=== PATIENT | female | born 1935 | race Asian ===

== ENCOUNTER 2016-07-07 10:25 | Observation (INO) | payer OTHER ==
[2016-07-07 10:33] VITALS: BMI 30.2
[2016-07-07 12:57] LABS: BASOPHIL 0.4 % (0-2.0); EOSINOPHIL 8.6 % (0-4.5); MCH 30.6 pg (25.7-33.7); MCHC 33.4 g/dl (32.0-36.0); MEAN CELL VOLUME 91.6 fl (80-96); MEAN PLT VOLUME 8.6 fl (7.5-11.1); NEUTROPHILS 63.6 % (42.8-82.8); PLATELET COUNT 171 K/MM3 (134-434); RDW 13.7 % (11.6-15.6); WHITE BLOOD COUNT 9.3 K/mm3 (4.0-10.0)
[2016-07-07 13:06] LABS: ALBUMIN 4.1 g/dl (3.4-5.0); ANION GAP 7 (8-16); BILIRUBIN,TOTAL 0.4 mg/dL (0.2-1.0); CALCIUM 9.9 mg/dL (8.5-10.1); CO2 29 mmol/L (21-32); CREATININE 2.3 mg/dL (0.55-1.02); GLUCOSE,RANDOM 259 mg/dL (74-106); SGOT/AST 18 U/L (15-37); SGPT/ALT 24 U/L (12-78); TOT PROT 7.2 g/dl (6.4-8.2)
[2016-07-07 13:08] LABS: ALK PHOS 103 U/L (45-117); TROPONIN I < 0.02 ng/ml (0.00-0.05)
[2016-07-07] MEDS ORDERED: morphine CARPU-JECT 2 MG/1 ML DISP.SYRIN IVPUSH ONE (13:55)
[2016-07-07] MEDS ORDERED: ASPIRIN 81 MG CHEWABLE TABLETS PO ONE (13:55)
[2016-07-07] MEDS ORDERED: ASPIRIN 81 MG CHEWABLE TABLETS ONE (14:07)
[2016-07-07] MEDS ORDERED: morphine CARPU-JECT 2 MG/1 ML DISP.SYRIN ONE (14:07)
--- NOTE | 2016-07-07 15:25 | EKG ---
Test Reason : Blood Pressure : / mmHG Vent. Rate : 056 BPM Atrial Rate : 056 BPM P-R Int : 122 ms QRS Dur : 084 ms QT Int : 398 ms P-R-T Axes : 016 045 039 degrees QTc Int : 384 ms POOR DATA QUALITY, INTERPRETATION MAY BE ADVERSELY AFFECTED SINUS BRADYCARDIA WITH SINUS ARRHYTHMIA OTHERWISE NORMAL ECG WHEN COMPARED WITH ECG OF 04-APR-2016 19:36, NONSPECIFIC T WAVE ABNORMALITY NOW EVIDENT IN LATERAL LEADS Confirmed by EVY QUIROGA MD ([id number]) on 07/07/2016 3:24:47 PM Referred By: Confirmed By:EVY QUIROGA MD
--- NOTE | 2016-07-07 15:47 | PDOC ---
History of Present Illness - General Chief Complaint: Chest Pain Stated Complaint: CHEST PAIN Time Seen by Provider: 07/07/16 12:45 History Source: Patient Exam Limitations: No Limitations - History of Present Illness Initial Comments: 07/07/16 14:44 80-year-old female presents to the ED with complaints of left substernal chest pain since yesterday waiting to her left arm. Patient initially thought it would go away but when she continued today she decided come to the ER for further evaluation. Patient denies shortness of breath, palpitations, dizziness , diaphoresis, nausea, headache, abdominal pain, or back pain. Patient states history of CHF, diabetes and CAD and is followed by Dr. Kiser who did an echocardiogram last year. Patient denies any recent change in medications, recent travel, calf tenderness or lower extremity edema. Presenting Symptoms: Chest Pain Timing/Duration: reports: constant Severity/Quality: reports: moderate, pressure Location: reports: substernal Chest Pain Radiation: reports: arms (left) Activities at Onset: reports: none Prior Chest Pain/Cardiac Workup: reports: Other (echocardiogram) Associated Symptoms: Yes: Chest Pain/pressure Past History - Past Medical History Allergies/Adverse Reactions: Allergies Allergy/AdvReac Type Severity Reaction Status Date / Time No Known Allergies Allergy Verified 07/07/16 10:33 Home Medications: Ambulatory Orders Ranitidine HCl [Zantac] 150 mg PO BID #60 tablet 06/15/15 Acetaminophen [Tylenol .Regular Strength -] 650 mg PO Q6H PRN #0 tablet Aspirin Coated [Ecotrin -] 81 mg PO DAILY #30 tablet.ec 07/09/16 Atorvastatin Ca [Lipitor] 20 mg PO DAILY #0 07/09/16 Carvedilol [Coreg -] 12.5 mg PO BID #180 tablet 07/09/16 Fluticasone Prop 0.05% Nasal [Flonase -] 1 spray NS BID PRN #1 spray 07/09/16 Furosemide [Lasix -] 40 mg PO DAILY #30 tablet 07/09/16 Gabapentin [Neurontin -] 300 mg PO DAILY #0 capsule 07/09/16 Hydralazine HCl [Apresoline -] 25 mg PO BID #60 tablet 07/09/16 Insulin (Levemir) [Levemir Vial] 20 units SQ HS #0 ml 07/09/16 Insulin Sliding Scale [Novolog Vial Sliding Scale -] 1 vial SQ ACHS #0 units Insulin Sliding Scale [Novolog Vial Sliding Scale -] 1 vial SQ BIDI units 07/09 Isosorbide Mononitrate [Imdur -] 60 mg PO DAILY #30 tab.sr.24h 07/09/16 Levothyroxine [Synthroid -] 50 mcg PO DAILY #90 tablet 07/09/16 Losartan Potassium 50 mg PO DAILY #0 07/09/16 Nitroglycerin Sublingual [Nitrostat -] 0.4 mg SL Q5M PRN #30 tab 07/09/16 Polyethylene Glycol 3350 [Miralax 119 gm Btl -] 17 gm PO DAILY PRN #30 bottle CHF: Yes Diabetes: Yes GI Disorders: Yes (GERD.) HTN: Yes Hypercholesterolemia: Yes Suicide Attempt (Hx): No Thyroid Disease: Yes (HYPO.) - Surgical History Abdominal Surgery: Yes - Immunization History Immunization Up to Date: Yes - Psycho/Social/Smoking Cessation Hx Anxiety: No Suicidal Ideation: No Smoking Status: No Smoking History: Never smoked Have you smoked in the past 12 months: No Number of Cigarettes Smoked Daily: 0 Information on smoking cessation initiated: No Hx Alcohol Use: No Drug/Substance Use Hx: No Substance Use Type: None Hx Substance Use Treatment: No Patient Lives Alone: No Lives with/in: spouse/SO Review of Systems - Review of Systems Able to Perform ROS?: Yes Constitutional: No: Symptoms Reported HEENTM: No: Symptoms Reported Respiratory: No: Symptoms reported Cardiac (ROS): Yes: Chest Pain ABD/GI: No: Symptoms Reported : No: Symptoms Reported Musculoskeletal: No: Symptoms Reported Integumentary: No: Symptoms Reported Neurological: No: Symptoms reported Endocrine: No: Symptoms Reported Hematologic/Lymphatic: No: Symptoms Reported *Physical Exam - Vital Signs Last Vital Signs Temp Pulse Resp BP Pulse Ox 97.8 F 69 18 120/48 98 07/09/16 06:00 07/09/16 08:02 07/09/16 08:05 07/09/16 08:02 07/09/16 08:05 - Physical Exam General Appearance: Yes: Nourished, Appropriately Dressed. No: Apparent Distress HEENT: positive: EOMI, COLEEN. negative: Pale Conjunctivae Neck: positive: Supple Respiratory/Chest: positive: Lungs Clear, Normal Breath Sounds. negative: Chest Tender, Respiratory Distress, Accessory Muscle Use Cardiovascular: positive: Regular Rhythm, Bradycardia. negative: Murmur Gastrointestinal/Abdominal: positive: Soft. negative: Tenderness Musculoskeletal: negative: CVA Tenderness Extremity: positive: Normal Capillary Refill. negative: Pedal Edema Integumentary: positive: Normal Color, Warm, Moist Neurologic: positive: Motor Strength 5/5 (ambulatory) Heart Score/ECG Review - ECG Intrepretation Rhythm: Regular Rhythm (rate 56. normal sinus rhythm) ED Treatment Course - LABORATORY CBC & Chemistry Diagram: 07/07/16 12:30 07/09/16 05:45 - ADDITIONAL ORDERS Additional order review: 07/07/16 12:30 RBC 3.59 L MCV 91.6 MCHC 33.4 RDW 13.7 MPV 8.6 D Neutrophils % 63.6 D Lymphocytes % 18.7 D Monocytes % 8.7 Eosinophils % 8.6 H Basophils % 0.4 - Medications Given in the ED: ED Medications Discontinued Medications Generic Name Dose Route Start Last Admin Trade Name Freq PRN Reason Stop Dose Admin Aspirin 81 mg 07/07/16 13:55 07/07/16 14:18 Asa - PO 07/07/16 13:56 81 mg ONCE ONE Administration Aspirin 81 mg 07/08/16 10:00 07/09/16 09:34 Ecotrin - PO 81 mg DAILY DARY Administration Atorvastatin Calcium 20 mg 07/08/16 22:00 07/08/16 22:33 Lipitor - PO 20 mg HS DARY Administration Carvedilol 6.25 mg 07/07/16 22:00 07/08/16 10:10 Coreg - PO 6.25 mg BID DARY Administration Carvedilol 6.25 mg 07/08/16 14:00 07/08/16 15:21 Coreg - PO 07/08/16 14:01 6.25 mg ONCE ONE Administration Carvedilol 12.5 mg 07/08/16 12:39 07/09/16 09:33 Coreg - PO 12.5 mg BID DARY Administration Furosemide 40 mg 07/08/16 10:00 07/09/16 09:34 Lasix - PO 40 mg DAILY DARY Administration Gabapentin 300 mg 07/08/16 10:00 07/09/16 09:33 Neurontin - PO 300 mg DAILY DARY Administration Heparin Sodium (Porcine) 5,000 unit 07/07/16 22:00 07/09/16 09:33 Heparin - SQ 5,000 unit BID DARY Administration Hydralazine HCl 25 mg 07/07/16 22:00 07/09/16 09:34 Apresoline - PO 25 mg BID DARY Administration Insulin Aspart 1 vial 07/09/16 07:00 07/09/16 06:01 Novolog Vial Sliding Scale - SQ Not Given BIDI [facility] Protocol Insulin Detemir 20 units 07/07/16 22:00 07/08/16 22:33 Levemir Vial SQ 20 units HS DARY Administration Insulin Human Regular 4 units 07/08/16 09:54 07/08/16 10:10 Novolin R Vial *Ivpush / Er / Icu Only* IVPUSH 07/08/16 09:55 4 units NOW ONE Administration Isosorbide Mononitrate 60 mg 07/08/16 10:00 07/09/16 09:33 Imdur - PO 60 mg DAILY DARY Administration Levothyroxine Sodium 50 mcg 07/08/16 07:00 07/09/16 06:03 Synthroid - PO 50 mcg ACBK DARY Administration Losartan Potassium 50 mg 07/08/16 10:00 07/09/16 09:33 Cozaar - PO 50 mg DAILY DARY Administration Morphine Sulfate 2 mg 07/07/16 13:55 07/07/16 14:18 Morphine Injection - IVPUSH 07/07/16 13:56 2 mg ONCE ONE Administration Ranitidine HCl 150 mg 07/07/16 22:00 07/09/16 09:33 Zantac - PO 150 mg BID DARY Administration Medical Decision Making - Medical Decision Making 07/07/16 14:18 Since yesterday. Patient with history of CHF, diabetes and is followed by Dr. Kiser with her last echo 6 months ago. Patient concerning for ACS versus CHF. Cardiac workup initiated including morphine and one baby aspirin given since she took her 1 baby aspirin this morning. 07/07/16 16:20 Laboratory Tests 04/08/16 07/07/16 07/07/16 07:15 12:30 12:30 WBC 9.3 Hgb 11.0 Hct 32.9 Neutrophils % 63.6 D Sodium 136 Potassium 5.0 Chloride 100 Carbon Dioxide 29 Anion Gap 7 L BUN 41 H D Creatinine 2.3 H 2.3 H Creat Clearance w eGFR 20.40 AST 18 ALT 24 Troponin I < 0.02 chest x-ray negative. Patient states feeling better after receiving medication. Case discussed Dr. Heck and states admitted to telemetry. Dr. Kiser made aware and agrees with plan *DC/Admit/Observation/Transfer Diagnosis at time of Disposition: Chest pain Qualifiers: Chest pain type: precordial chest pain Qualified Code(s): R07.2 - Precordial pain - Discharge Dispostion Disposition: VNS/HOME HEALTH CARE Condition at time of disposition: Improved Admit: Yes - Prescriptions
[2016-07-07 19:06] LABS: TROPONIN I < 0.02 ng/ml (0.00-0.05)
--- NOTE | 2016-07-07 19:54 | HP ---
Admitting History and Physical - Primary Care Physician PCP: Jam Sunshine - Admission Chief Complaint: CP History of Present Illness: Pt. with SSCP, left side , radiating to the left shoulder and left arms; it started last night, woke up pt. from sleep; pt states that CP was associated with SOB, palpitations. P r Cp returned today and came to ER per her daughter dg. advice. History Source: Patient - Past Medical History Cardiovascular: Yes: CAD, CHF, HTN, Hyperlipdemia Gastrointestinal: Yes: GERD Renal/: Yes: Renal Inusuff (recent baseline creatinine above 2.0)) Endocrine: Yes: Diabetes Mellitus (Insulin dependent), Hypothyroidism - Past Surgical History Past Surgical History: Yes: Hysterectomy (BRAXTON, BSO in 1981), Oopherectomy - Smoking History Smoking history: Never smoked Have you smoked in the past 12 months: No Aproximately how many cigarettes per day: 0 - Alcohol/Substance Use Hx Alcohol Use: No History of Substance Use: reports: None - Social History ADL: Independent History of Recent Travel: Yes (WENT TO [place] TWO YEARS AGO) <Jam Sunshine - Last Filed: 07/07/16 19:49> Home Medications <Jam Sunshine - Last Filed: 07/07/16 19:49> <Berlin Arroyo - Last Filed: 07/08/16 11:48> - Allergies Allergies/Adverse Reactions: Allergies Allergy/AdvReac Type Severity Reaction Status Date / Time No Known Allergies Allergy Verified 07/07/16 10:33 - Home Medications Home Medications: Ambulatory Orders Atorvastatin Ca [Lipitor] 20 mg PO DAILY 09/19/14 Aspirin Coated [Ecotrin -] 81 mg PO DAILY #30 tablet.ec 09/23/14 Levothyroxine [Synthroid -] 50 mcg PO DAILY #90 tablet 11/02/14 Polyethylene Glycol 3350 [Miralax 119 gm Btl -] 17 gm PO DAILY PRN #30 bottle Ranitidine HCl [Zantac] 150 mg PO BID #60 tablet 06/15/15 Acetaminophen [Tylenol .Regular Strength -] 650 mg PO Q6H PRN #0 tablet Fluticasone Prop 0.05% Nasal [Flonase -] 1 spray NS BID PRN #1 spray 11/25/15 Gabapentin [Neurontin -] 300 mg PO DAILY capsule 11/25/15 Insulin (Levemir) [Levemir Vial] 20 units SQ HS ml 11/25/15 Insulin Sliding Scale [Novolog Vial Sliding Scale -] 1 vial SQ ACHS units 11/24 Carvedilol [Coreg -] 6.25 mg PO BID #60 tablet 04/08/16 Furosemide [Lasix -] 40 mg PO DAILY #30 tablet 04/08/16 Hydralazine HCl [Apresoline -] 25 mg PO BID #60 tablet 04/08/16 Isosorbide Mononitrate [Imdur -] 60 mg PO DAILY #30 tab.sr.24h 04/08/16 Losartan Potassium 50 mg PO DAILY 07/07/16 Family Disease History - Family Disease History Family Disease History: Diabetes: Brother, Sister, Other: Father (dies in his 50s ? etiology) <Jam Sunshine - Last Filed: 07/07/16 19:49> Review of Systems - Review of Systems Constitutional: denies: Chills, Fever Eyes: denies: Blind Spots, Blurred Vision HENT: denies: Difficult Swallowing, Ear Discharge, Ear Pain, Throat Pain Neck: denies: Pain on Movement, Stiffness Cardiovascular: denies: Edema Respiratory: denies: Cough, Wheezing Gastrointestinal: reports: Bloating (old). denies: Nausea, Vomiting Genitourinary: denies: Burning, Discharge, Dysuria Integumentary: denies: Bruising, Eczema, Erythema Neurological: reports: Other (Vertigo- on and off). denies: Change in LOC, Change in Speech, Confusion, Dizziness Endocrine: denies: Excessive Sweating, Intolerance to Cold Hematology/Lymphatic: denies: Easily Bruised, Excessive Bleeding Psychiatric: denies: Altered Sleep Pattern, Anxiety, Depression <Jam Sunshine - Last Filed: 07/07/16 19:49> Physical Examination Vital Signs: Vital Signs Temperature 98 F 07/07/16 10:26 Pulse Rate 60 07/07/16 16:31 Respiratory Rate 18 07/07/16 16:31 Blood Pressure 151/67 07/07/16 16:31 O2 Sat by Pulse Oximetry (%) 98 07/07/16 16:31 Constitutional: Yes: No Distress, Calm Eyes: Yes: Conjunctiva Clear, EOM Intact, PERRL HENT: Yes: Normocephalic, Epistaxis. No: Pharyngeal Erythema, Rhinnorhea, Thrush Neck: Yes: Trachea Midline. No: Lymphadenopathy Cardiovascular: Yes: Regular Rate and Rhythm, S1, S2 Respiratory: Yes: Regular, CTA Bilaterally. No: Rales Gastrointestinal: Yes: Normal Bowel Sounds, Soft, Abdomen, Obese. No: Palpable Mass Musculoskeletal: Yes: Back Pain, Joint Stiffness, Joint Swelling Extremities: No: Cool, Erythema Edema: No Integumentary: No: Erythema, Petechiae, Rash Neurological: Yes: Alert, Oriented, Cran Nerves II-XII Intact. No: Confusion, Dysarthria, Facial Droop Psychiatric: Yes: Alert, Oriented Labs: reviewed <Jam Sunshine - Last Filed: 07/07/16 19:49> Vital Signs: Vital Signs Temperature 97.9 F 07/08/16 09:45 Pulse Rate 59 L 07/08/16 09:45 Respiratory Rate 17 07/08/16 09:45 Blood Pressure 139/56 07/08/16 09:45 O2 Sat by Pulse Oximetry (%) 98 07/08/16 09:45 Labs: CBC, BMP 07/08/16 06:20 <Berlin Arroyo - Last Filed: 07/08/16 11:48> Imaging - Results Chest X-ray: Report Reviewed <Jam Sunshine - Last Filed: 07/07/16 19:49> Problem List - Problems (1) Chest pain Assessment/Plan: Pt under observation status To monitor on Telemetry Cardio Consult Serial CE Code(s): R07.9 - CHEST PAIN, UNSPECIFIED Qualifiers: Chest pain type: unspecified Qualified Code(s): R07.9 - Chest pain, unspecified (2) CAD (coronary artery disease) Code(s): I25.10 - ATHSCL HEART DISEASE OF [place] CORONARY ARTERY W/O ANG PCTRS Qualifiers: Coronary Disease-Associated Artery/Lesion type: [place] artery [place] vs. transplanted heart: [place] heart Associated angina: with stable angina Qualified Code(s): I25.119 - Atherosclerotic heart disease of [place] coronary artery with unspecified angina pectoris (3) CHF (congestive heart failure) Code(s): I50.9 - HEART FAILURE, UNSPECIFIED (4) Diabetes mellitus Code(s): E11.9 - TYPE 2 DIABETES MELLITUS WITHOUT COMPLICATIONS Qualifiers: Diabetes mellitus type: type 2 Diabetes mellitus complication status: without complication Diabetes mellitus group home insulin use: without terminal gauger supervisor use Qualified Code(s): E11.9 - Type 2 diabetes mellitus without complications (5) Chronic renal disease Code(s): N18.9 - CHRONIC KIDNEY DISEASE, UNSPECIFIED Qualifiers: Chronic kidney disease stage: unspecified stage Qualified Code(s): N18.9 - Chronic kidney disease, unspecified <Jam Sunshine - Last Filed: 07/07/16 19:49>
[2016-07-07] MEDS ORDERED: ACETAMINOPHEN 325 MG TABLET (FP) PO PRN (20:02)
[2016-07-07] MEDS ORDERED: POLYETHYLENE GLYCOL 3350 119 GM BTL PO PRN (20:02)
[2016-07-07] MEDS ORDERED: FLUTICASONE PROP 0.05% 16 GM NASAL SPRAY NS PRN (20:02)
[2016-07-07] MEDS ORDERED: NITROGLYCERIN SUBLINGUAL 1/150 0.4 MG TAB SL PRN (20:04)
[2016-07-07] MEDS ORDERED: HEPARIN NA (PORCINE) 5,000 UNITS/ML 1ML VIAL ONE (22:36)
[2016-07-07] MEDS ORDERED: RANITIDINE HCL 150 MG TABLET (FP) ONE (22:36)
[2016-07-07] MEDS ORDERED: CARVEDILOL 3.125 MG TABLET (FP) ONE (22:36)
[2016-07-07] MEDS ORDERED: hydrALAZINE HCL 25 MG TABLET (FP) ONE (22:36)
[2016-07-07] MEDS ORDERED: INSULIN DETEMIR 100 UNITS/ML MDV SQ ONE (22:38)
[2016-07-07] MEDS: hydrALAZINE HCL 25 MG TABLET (FP) PO SCH (22:53)
[2016-07-07] MEDS: INSULIN DETEMIR 100 UNITS/ML MDV SQ SCH (22:54)
[2016-07-07] MEDS: HEPARIN NA (PORCINE) 5,000 UNITS/ML 1ML VIAL SQ SCH (22:54)
[2016-07-07] MEDS: CARVEDILOL 6.25 MG TABLET (FP) PO SCH (22:54)
[2016-07-07] MEDS: RANITIDINE HCL 150 MG TABLET (FP) PO SCH (22:55)
[2016-07-08 00:16] LABS: TROPONIN I 0.02 ng/ml (0.00-0.05)
[2016-07-08 08:12] LABS: CALCIUM 10.3 mg/dL (8.5-10.1); CREATININE 2.2 mg/dL (0.55-1.02); THYROID STIMULATING HORMONE 2.11 uIU/ml (0.358-3.74)
[2016-07-08] MEDS: LEVOTHYROXINE NA 50 MCG TABLET (FP) PO SCH (09:00)
[2016-07-08] MEDS ORDERED: LEVOTHYROXINE NA 25 MCG TABLET (FP) ONE (09:05)
[2016-07-08] MEDS ORDERED: HEMOQUE TEST 1 EACH EACH ONE (09:16)
[2016-07-08] MEDS ORDERED: INSULIN REGULAR HUMAN 100 UNITS/ML *VIAL IVPUSH ONE (09:54)
[2016-07-08] MEDS ORDERED: INSULIN REGULAR HUMAN 100 UNITS/ML *VIAL ONE (09:59)
[2016-07-08] MEDS: hydrALAZINE HCL 25 MG TABLET (FP) PO SCH ×2 (10:09→22:33)
[2016-07-08] MEDS: HEPARIN NA (PORCINE) 5,000 UNITS/ML 1ML VIAL SQ SCH ×2 (10:10→22:32)
[2016-07-08] MEDS: GABAPENTIN 300 MG CAPSULE (FP) PO SCH (10:10)
[2016-07-08] MEDS: ISOSORBIDE MONONITRATE 60 MG TAB.SR.24H (FP) PO SCH (10:10)
[2016-07-08] MEDS: LOSARTAN POTASSIUM 50 MG TABLET (FP) PO SCH (10:10)
[2016-07-08] MEDS: CARVEDILOL 6.25 MG TABLET (FP) PO SCH ×2 (10:10→22:33)
[2016-07-08] MEDS: ASPIRIN COATED 81 MG TABLET.EC PO SCH (10:10)
[2016-07-08] MEDS: RANITIDINE HCL 150 MG TABLET (FP) PO SCH ×2 (10:10→22:33)
[2016-07-08] MEDS: FUROSEMIDE 40 MG TABLET (FP) PO SCH (10:10)
[2016-07-08 11:16] LABS: TROPONIN I 0.02 ng/ml (0.00-0.05)
--- NOTE | 2016-07-08 11:45 | CON.CARD ---
Consult Consult Specialty:: Cardiology Referred by:: Jam Sunshine MD Reason for Consultation:: Chest pain - History of Present Illness Chief Complaint: Chest pain History of Present Illness: Patient is a 80 year old female with history of HTN, hypercholesterolemia, type 2 DM, osteoarthritis, hypothyroidism, CKD and LV diastolic dysfunction h/o failure presented with chest pressure radiating to left shoulder and arm and dyspnea awoke from sleep. She denies palpitations, near or true syncope, orthopnea, PNE or LE edema. - History Source History Provided By: Patient, Medical Record Limitations to Obtaining History: No Limitations - Past Medical History Cardio/Vascular: Yes: CAD, CHF, HTN, Hyperlipdemia Gastrointestinal: Yes: GERD Renal/: Yes: Renal Inusuff (recent baseline creatinine above 2.0)) Endocrine: Yes: Diabetes Mellitus (Insulin dependent), Hypothyroidism - Past Surgical History Past Surgical History: Yes: Hysterectomy (BRAXTON, BSO in 1981), Oopherectomy - Alcohol/Substance Use Hx Alcohol Use: No History of Substance Use: reports: None - Smoking History Smoking history: Never smoked Have you smoked in the past 12 months: No Aproximately how many cigarettes per day: 0 - Social History Usual Living Arrangement: With Spouse ADL: Independent History of Recent Travel: Yes (WENT TO [place] TWO YEARS AGO) Home Medications - Allergies Allergies/Adverse Reactions: Allergies Allergy/AdvReac Type Severity Reaction Status Date / Time No Known Allergies Allergy Verified 07/07/16 10:33 - Home Medications Home Medications: Ambulatory Orders Atorvastatin Ca [Lipitor] 20 mg PO DAILY 09/19/14 Aspirin Coated [Ecotrin -] 81 mg PO DAILY #30 tablet.ec 09/23/14 Levothyroxine [Synthroid -] 50 mcg PO DAILY #90 tablet 11/02/14 Polyethylene Glycol 3350 [Miralax 119 gm Btl -] 17 gm PO DAILY PRN #30 bottle Ranitidine HCl [Zantac] 150 mg PO BID #60 tablet 06/15/15 Acetaminophen [Tylenol .Regular Strength -] 650 mg PO Q6H PRN #0 tablet Fluticasone Prop 0.05% Nasal [Flonase -] 1 spray NS BID PRN #1 spray 11/25/15 Gabapentin [Neurontin -] 300 mg PO DAILY capsule 11/25/15 Insulin (Levemir) [Levemir Vial] 20 units SQ HS ml 11/25/15 Insulin Sliding Scale [Novolog Vial Sliding Scale -] 1 vial SQ ACHS units 11/24 Carvedilol [Coreg -] 6.25 mg PO BID #60 tablet 04/08/16 Furosemide [Lasix -] 40 mg PO DAILY #30 tablet 04/08/16 Hydralazine HCl [Apresoline -] 25 mg PO BID #60 tablet 04/08/16 Isosorbide Mononitrate [Imdur -] 60 mg PO DAILY #30 tab.sr.24h 04/08/16 Losartan Potassium 50 mg PO DAILY 07/07/16 Family Disease History - Family Disease History Family Disease History: Diabetes: Brother, Sister, Other: Father (dies in his 50s ? etiology) Review of Systems - Review of Systems Cardiovascular: reports: Chest Pain Vital Signs: Vital Signs Temperature 97.9 F 07/08/16 09:45 Pulse Rate 59 L 07/08/16 09:45 Respiratory Rate 17 07/08/16 09:45 Blood Pressure 139/56 07/08/16 09:45 O2 Sat by Pulse Oximetry (%) 98 07/08/16 09:45 Constitutional: Yes: No Distress, Calm Neck: Yes: Supple Respiratory: Yes: Regular, CTA Bilaterally Gastrointestinal: Yes: Normal Bowel Sounds, Soft, Abdomen, Obese Cardiovascular: Yes: Regular Rate and Rhythm JVD: No Carotid Bruit: No Heart Sounds: Yes: S1, S2 Edema: No - Other Data Labs, Other Data: CBC, BMP 07/08/16 06:20 Troponin, BNP 07/07/16 07/08/16 07/08/16 23:45 06:20 09:38 Troponin I 0.02 0.02 Cancelled Troponin, BNP 07/07/16 07/08/16 07/08/16 23:45 06:20 09:38 Troponin I 0.02 0.02 Cancelled SB @ [address]-T changes Echo: Report Reviewed Prior Cardiac Procedures: Cardiac Catheterization Ejection Fraction %: LVEF > or = 40 % Imaging - Results Chest X-ray: Report Reviewed (NAD) Problem List - Problems (1) Chest pain Code(s): R07.9 - CHEST PAIN, UNSPECIFIED Qualifiers: Chest pain type: precordial chest pain Qualified Code(s): R07.2 - Precordial pain (2) Diabetes mellitus with diabetic cardiomyopathy Code(s): E11.59 - TYPE 2 DIABETES MELLITUS WITH OTH CIRCULATORY COMPLICATIONS I43 - CARDIOMYOPATHY IN DISEASES CLASSIFIED ELSEWHERE (3) Endothelial dysfunction of coronary artery Code(s): I99.8 - OTHER DISORDER OF CIRCULATORY SYSTEM (4) CKD (chronic kidney disease) stage 3, GFR 30-59 ml/min Code(s): N18.3 - CHRONIC KIDNEY DISEASE, STAGE 3 (MODERATE) (5) Diabetes mellitus Code(s): E11.9 - TYPE 2 DIABETES MELLITUS WITHOUT COMPLICATIONS Qualifiers: Diabetes mellitus type: type 2 Diabetes mellitus complication status: without complication Diabetes mellitus computer terminal operator insulin use: without care home use Qualified Code(s): E11.9 - Type 2 diabetes mellitus without complications (6) Hyperlipidemia Code(s): E78.5 - HYPERLIPIDEMIA, UNSPECIFIED Qualifiers: Hyperlipidemia type: pure hypercholesterolemia Qualified Code(s): E78.0 - Pure hypercholesterolemia (7) Hypertension Code(s): I10 - ESSENTIAL (PRIMARY) HYPERTENSION Qualifiers: Hypertension type: essential hypertension Qualified Code(s): I10 - Essential (primary) hypertension (8) Hypothyroidism Code(s): E03.9 - HYPOTHYROIDISM, UNSPECIFIED Qualifiers: Hypothyroidism type: unspecified Qualified Code(s): E03.9 - Hypothyroidism, unspecified Assessment/Plan [facility] coronary performed 01/04/16 revealed non-obstructive CAD MPI study dated 11/12/2015 revealed No ischemia with normal LV function LVEF 79% Echocardiogram revealed normal LV size and function, mild , MR and TR 1. Chest pain syndrome with underlying non-obstructive CAD, angina pectoris, probable endothelial dysfunction 2. 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 Aortic valve stenosis - mild in severity 4. HTN 5. NIDDM 6. Hypercholesterolemia 7. Hypothyroidism 8. Chronic kidney disease 9. Anemia PLAN: 1. Ruling out for MS 2. Increase Coreg 12.5 bid, losartan 50 qd, Hydralazine 25 bid and Imdur 60 qd as hemodynamics tolerate 3. Continue Lipitor 20 qhs, ASA 81 qd and Lasix 40 PO qd 4. GI and DVT prophylaxis 5. Thank you for consultative opportunity, d/c planning in AM
[2016-07-08] MEDS ORDERED: CARVEDILOL 6.25 MG TABLET (FP) PO ONE (14:00)
[2016-07-08] MEDS ORDERED: ATORVASTATIN CA 20 MG TABLET (FP) PO SCH (22:00)
--- NOTE | 2016-07-08 22:00 | PN ---
Progress Note, Physician History of Present Illness: Pt. w/o CP, palp., dizziness, SOB; no abd pain, N, V. - Current Medication List Current Medications: Active Medications Acetaminophen (Tylenol -) 650 mg PO Q6H PRN PRN Reason: FEVER OR PAIN Aspirin (Ecotrin -) 81 mg PO DAILY [facility] Last Admin: 07/08/16 10:10 Dose: 81 mg Atorvastatin Calcium (Lipitor -) 20 mg PO HS [facility] Carvedilol (Coreg -) 12.5 mg PO BID [facility] Fluticasone Propionate (Flonase -) 1 spray NS Q12H PRN PRN Reason: NASAL CONGESTION Furosemide (Lasix -) 40 mg PO DAILY [facility] Last Admin: 07/08/16 10:10 Dose: 40 mg Gabapentin (Neurontin -) 300 mg PO DAILY [facility] Last Admin: 07/08/16 10:10 Dose: 300 mg Heparin Sodium (Porcine) (Heparin -) 5,000 unit SQ BID [facility] Last Admin: 07/08/16 10:10 Dose: Not Given Hydralazine HCl (Apresoline -) 25 mg PO BID [facility] Last Admin: 07/08/16 10:09 Dose: 25 mg Insulin Detemir (Levemir Vial) 20 units SQ HS [facility] Last Admin: 07/07/16 22:54 Dose: 20 units Isosorbide Mononitrate (Imdur -) 60 mg PO DAILY [facility] Last Admin: 07/08/16 10:10 Dose: 60 mg Levothyroxine Sodium (Synthroid -) 50 mcg PO ACBK [facility] Last Admin: 07/08/16 09:00 Dose: 50 mcg Losartan Potassium (Cozaar -) 50 mg PO DAILY [facility] Last Admin: 07/08/16 10:10 Dose: 50 mg Nitroglycerin (Nitrostat -) 0.4 mg SL Q5M PRN PRN Reason: FOR CHEST PAIN Polyethylene Glycol (Miralax (For Daily Use) -) 17 gm PO DAILY PRN PRN Reason: CONSTIPATION Ranitidine HCl (Zantac -) 150 mg PO BID [facility] Last Admin: 07/08/16 10:10 Dose: 150 mg - Objective Vital Signs: Vital Signs Temperature 97.8 F 07/08/16 18:00 Pulse Rate 55 L 07/08/16 18:00 Respiratory Rate 20 07/08/16 18:00 Blood Pressure 118/45 07/08/16 18:00 O2 Sat by Pulse Oximetry (%) 98 07/08/16 13:17 Constitutional: Yes: No Distress, Calm Cardiovascular: Yes: Regular Rate and Rhythm, S1, S2 Respiratory: Yes: Regular, CTA Bilaterally. No: Rales Gastrointestinal: Yes: Normal Bowel Sounds, Soft, Abdomen, Obese. No: Palpable Mass, Tenderness Edema: No Neurological: Yes: Alert, Oriented Labs: CBC, BMP 07/08/16 06:20 Problem List - Problems (1) Chest pain Assessment/Plan: Pt under observation status To monitor on Telemetry Cardio Consult appreciated Serial CE- negative. Code(s): R07.9 - CHEST PAIN, UNSPECIFIED Qualifiers: Chest pain type: precordial chest pain Qualified Code(s): R07.2 - Precordial pain (2) CAD (coronary artery disease) Code(s): I25.10 - ATHSCL HEART DISEASE OF [place] CORONARY ARTERY W/O ANG PCTRS Qualifiers: Coronary Disease-Associated Artery/Lesion type: [place] artery [place] vs. 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
[2016-07-08] MEDS: INSULIN DETEMIR 100 UNITS/ML MDV SQ SCH (22:33)
[2016-07-09] MEDS: LEVOTHYROXINE NA 50 MCG TABLET (FP) PO SCH (06:03)
[2016-07-09 06:41] VITALS: TEMP 97.8
[2016-07-09] MEDS ORDERED: INSULIN SLIDING SCALE (NOVOLOG) 1 VIAL SQ SCH (07:00)
[2016-07-09 08:05] VITALS: BP 120/48; PULSE 69
[2016-07-09 08:58] LABS: CALCIUM 9.9 mg/dL (8.5-10.1); CREATININE 2.3 mg/dL (0.55-1.02)
[2016-07-09] MEDS: ISOSORBIDE MONONITRATE 60 MG TAB.SR.24H (FP) PO SCH (09:33)
[2016-07-09] MEDS: LOSARTAN POTASSIUM 50 MG TABLET (FP) PO SCH (09:33)
[2016-07-09] MEDS: CARVEDILOL 6.25 MG TABLET (FP) PO SCH (09:33)
[2016-07-09] MEDS: HEPARIN NA (PORCINE) 5,000 UNITS/ML 1ML VIAL SQ SCH (09:33)
[2016-07-09] MEDS: RANITIDINE HCL 150 MG TABLET (FP) PO SCH (09:33)
[2016-07-09] MEDS: GABAPENTIN 300 MG CAPSULE (FP) PO SCH (09:33)
[2016-07-09] MEDS: FUROSEMIDE 40 MG TABLET (FP) PO SCH (09:34)
[2016-07-09] MEDS: ASPIRIN COATED 81 MG TABLET.EC PO SCH (09:34)
[2016-07-09] MEDS: hydrALAZINE HCL 25 MG TABLET (FP) PO SCH (09:34)
--- NOTE | 2016-07-09 11:18 | DS ---
Physical Examination Vital Signs: Vital Signs Temperature 97.8 F 07/09/16 06:00 Pulse Rate 69 07/09/16 08:02 Respiratory Rate 18 07/09/16 08:05 Blood Pressure 120/48 07/09/16 08:02 O2 Sat by Pulse Oximetry (%) 98 07/09/16 08:05 Findings/Remarks: feels well no c/o no CP/SOB, no abdominal pain or dysuria. walked to the bathroom and in the hallway; has occasional GERD I d/w pt bland diet and GI f/u outpt; BP controlled; BGM OK; ADA diet; cleared by cardio to DC home scripts done increased coreg; d/w pt and daughter, f/u with PCP and cardio; RTER if recurrent c/o Constitutional: Yes: No Distress, Calm Eyes: Yes: Conjunctiva Clear HENT: Yes: Atraumatic Neck: Yes: Supple Cardiovascular: Yes: Regular Rate and Rhythm Respiratory: Yes: CTA Bilaterally Gastrointestinal: Yes: Soft. No: Distention, Tenderness Renal/: No: CVA Tenderness - Left, CVA Tenderness - Right Musculoskeletal: No: Joint Stiffness, Joint Swelling Extremities: No: Cold, Cool Edema: No Peripheral Pulses WNL: Yes Integumentary: No: Pressure Ulcer, Venous Stasis Changes Neurological: Yes: WNL, Alert, Oriented ...Motor Strength: WNL Psychiatric: Yes: WNL, Alert, Oriented. No: Agitated Labs: CBC, BMP 07/09/16 05:45 Discharge Summary Reason For Visit: CHEST PAIN Current Active Problems Chest pain (Acute) Diabetes mellitus with diabetic cardiomyopathy (Acute) Dyspnea (Acute) Endothelial dysfunction of coronary artery (Acute) Procedures: Principal: CP sd; RENZO negative Other Procedures: seen by cardiology; meds adjusted Hospital Course: DC home. F/u as advised Condition: Improved - Instructions Diet, Activity, Other Instructions: f/u PCP cardiology in 1-2 weeks RTER if worse or recurrent meds as ordered d/w pt and staff, scripts done Referrals: Kell Snushine [Primary Care Provider] - Berlin Arroyo MD [Staff Physician] - Disposition: VNS/HOME HEALTH CARE - Home Medications Comprehensive Discharge Medication List: Ambulatory Orders Atorvastatin Ca [Lipitor] 20 mg PO DAILY 09/19/14 Aspirin Coated [Ecotrin -] 81 mg PO DAILY #30 tablet.ec 09/23/14 Levothyroxine [Synthroid -] 50 mcg PO DAILY #90 tablet 11/02/14 Polyethylene Glycol 3350 [Miralax 119 gm Btl -] 17 gm PO DAILY PRN #30 bottle Ranitidine HCl [Zantac] 150 mg PO BID #60 tablet 06/15/15 Acetaminophen [Tylenol .Regular Strength -] 650 mg PO Q6H PRN #0 tablet Fluticasone Prop 0.05% Nasal [Flonase -] 1 spray NS BID PRN #1 spray 11/25/15 Gabapentin [Neurontin -] 300 mg PO DAILY capsule 11/25/15 Insulin (Levemir) [Levemir Vial] 20 units SQ HS ml 11/25/15 Insulin Sliding Scale [Novolog Vial Sliding Scale -] 1 vial SQ ACHS units 11/24 Furosemide [Lasix -] 40 mg PO DAILY #30 tablet 04/08/16 Hydralazine HCl [Apresoline -] 25 mg PO BID #60 tablet 04/08/16 Isosorbide Mononitrate [Imdur -] 60 mg PO DAILY #30 tab.sr.24h 04/08/16 Losartan Potassium 50 mg PO DAILY 07/07/16 Carvedilol [Coreg -] 12.5 mg PO BID #180 tablet 07/09/16 Insulin Sliding Scale [Novolog Vial Sliding Scale -] 1 vial SQ BIDI units 07/09 Nitroglycerin Sublingual [Nitrostat -] 0.4 mg SL Q5M PRN #30 tab 07/09/16
--- NOTE | 2016-07-09 11:44 | PN ---
Progress Note, Physician Chief Complaint: Events noted Not in distress History of Present Illness: Patient was seen and examined. Awake and alert. Chart was reviewed Denies chest pain, SOB or palpitation - Current Medication List Current Medications: Active Medications Acetaminophen (Tylenol -) 650 mg PO Q6H PRN PRN Reason: FEVER OR PAIN Aspirin (Ecotrin -) 81 mg PO DAILY [facility] Last Admin: 07/09/16 09:34 Dose: 81 mg Atorvastatin Calcium (Lipitor -) 20 mg PO HS [facility] Last Admin: 07/08/16 22:33 Dose: 20 mg Carvedilol (Coreg -) 12.5 mg PO BID [facility] Last Admin: 07/09/16 09:33 Dose: 12.5 mg Fluticasone Propionate (Flonase -) 1 spray NS Q12H PRN PRN Reason: NASAL CONGESTION Furosemide (Lasix -) 40 mg PO DAILY [facility] Last Admin: 07/09/16 09:34 Dose: 40 mg Gabapentin (Neurontin -) 300 mg PO DAILY [facility] Last Admin: 07/09/16 09:33 Dose: 300 mg Heparin Sodium (Porcine) (Heparin -) 5,000 unit SQ BID [facility] Last Admin: 07/09/16 09:33 Dose: 5,000 unit Hydralazine HCl (Apresoline -) 25 mg PO BID [facility] Last Admin: 07/09/16 09:34 Dose: 25 mg Insulin Aspart (Novolog Vial Sliding Scale -) 1 vial SQ BIDI [facility] PRN Reason: Protocol Last Admin: 07/09/16 06:01 Dose: Not Given Insulin Detemir (Levemir Vial) 20 units SQ HS [facility] Last Admin: 07/08/16 22:33 Dose: 20 units Isosorbide Mononitrate (Imdur -) 60 mg PO DAILY [facility] Last Admin: 07/09/16 09:33 Dose: 60 mg Levothyroxine Sodium (Synthroid -) 50 mcg PO ACBK [facility] Last Admin: 07/09/16 06:03 Dose: 50 mcg Losartan Potassium (Cozaar -) 50 mg PO DAILY [facility] Last Admin: 07/09/16 09:33 Dose: 50 mg Nitroglycerin (Nitrostat -) 0.4 mg SL Q5M PRN PRN Reason: FOR CHEST PAIN Polyethylene Glycol (Miralax (For Daily Use) -) 17 gm PO DAILY PRN PRN Reason: CONSTIPATION Ranitidine HCl (Zantac -) 150 mg PO BID [facility] Last Admin: 07/09/16 09:33 Dose: 150 mg - Objective Vital Signs: Vital Signs Temperature 97.8 F 07/09/16 06:00 Pulse Rate 69 07/09/16 08:02 Respiratory Rate 18 07/09/16 08:05 Blood Pressure 120/48 07/09/16 08:02 O2 Sat by Pulse Oximetry (%) 98 07/09/16 08:05 Neck: Yes: Supple Cardiovascular: Yes: Regular Rate and Rhythm, S1, S2 Respiratory: Yes: CTA Bilaterally Gastrointestinal: Yes: Normal Bowel Sounds, Soft. No: Tenderness Edema: No Labs: CBC, BMP 07/09/16 05:45 Problem List - Problems (1) Chest pain Code(s): R07.9 - CHEST PAIN, UNSPECIFIED Qualifiers: Chest pain type: precordial chest pain Qualified Code(s): R07.2 - Precordial pain (2) Diabetes mellitus with diabetic cardiomyopathy Code(s): E11.59 - TYPE 2 DIABETES MELLITUS WITH OTH CIRCULATORY COMPLICATIONS I43 - CARDIOMYOPATHY IN DISEASES CLASSIFIED ELSEWHERE (3) Endothelial dysfunction of coronary artery Code(s): I99.8 - OTHER DISORDER OF CIRCULATORY SYSTEM (4) Acute on chronic diastolic congestive heart failure Code(s): I50.33 - ACUTE ON CHRONIC DIASTOLIC (CONGESTIVE) HEART FAILURE (5) Anemia Code(s): D64.9 - ANEMIA, UNSPECIFIED Qualifiers: Anemia type: unspecified type Qualified Code(s): D64.9 - Anemia, unspecified (6) CAD (coronary artery disease) Code(s): I25.10 - ATHSCL HEART DISEASE OF [place] CORONARY ARTERY W/O ANG PCTRS Qualifiers: Coronary Disease-Associated Artery/Lesion type: [place] artery [place] vs. 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: without chcf use Qualified Code(s): E11.9 - Type 2 diabetes mellitus without complications (9) Hyperlipidemia Code(s): E78.5 - HYPERLIPIDEMIA, UNSPECIFIED Qualifiers: Hyperlipidemia type: pure hypercholesterolemia Qualified Code(s): E78.0 - Pure hypercholesterolemia (10) Hypertension Code(s): I10 - ESSENTIAL (PRIMARY) HYPERTENSION Qualifiers: Hypertension type: essential hypertension Qualified Code(s): I10 - Essential (primary) hypertension (11) Hypothyroidism Code(s): E03.9 - HYPOTHYROIDISM, UNSPECIFIED Qualifiers: Hypothyroidism type: unspecified Qualified Code(s): E03.9 - Hypothyroidism, unspecified Assessment/Plan 1. Chest pain syndrome with underlying non-obstructive CAD, angina pectoris, probable endothelial dysfunction 2. 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 Aortic valve stenosis - mild in severity 4. HTN 5. NIDDM 6. Hypercholesterolemia 7. Hypothyroidism 8. Chronic kidney disease 9. Anemia PLAN: 1. Continue Coreg 12.5 mg BID, Losartan 50 mg QD, Hydralazine 25 mg BID and Imdur 60 mg QD as hemodynamics tolerate 2. Continue Lipitor 20 mg QHS, ASA 81 mg QD and Lasix 40 mg QD 3. Discharge planning and advised to follow up in office Apollo Kiser MD
== END 2016-07-09 13:25 | disposition home health service (06) ==
LOC: JER 10:25 → JERBED 16:42 → UNDOADMOB 16:42 → JERBED 20:01 → J4W 07-08 11:58
PROVIDERS: ADMIT Specialist; ATTEND Specialist
DX: R07.89 Other chest pain (principal); I25.10 Atherosclerotic heart disease of native coronary artery without angina pectoris; E11.9 Type 2 diabetes mellitus without complications; I50.9 Heart failure, unspecified; K21.9 Gastro-esophageal reflux disease without esophagitis; E03.9 Hypothyroidism, unspecified; D64.9 Anemia, unspecified; I13.0 Hypertensive heart and chronic kidney disease with heart failure and stage 1 through stage 4 chronic kidney disease, or unspecified chronic kidney disease; N18.3 Chronic kidney disease, stage 3 (moderate); I50.33 Acute on chronic diastolic (congestive) heart failure; I99.8 Other disorder of circulatory system; I35.0 Nonrheumatic aortic (valve) stenosis; Z79.4 Long term (current) use of insulin
CPT/HCPCS: 36415; 71020-TC; 80048; 80053; 82550; 84443; 84484; 85025; 93005; 93010; 99285-25; G0378; J1644

== ENCOUNTER 2017-02-03 11:45 | Inpatient (IN) | payer OTHER ==
[2017-02-03 11:59] VITALS: BMI 29.2
[2017-02-03] MEDS ORDERED: ASPIRIN 81 MG CHEWABLE TABLETS PO ONE (13:04)
--- NOTE | 2017-02-03 13:08 | PDOC ---
History of Present Illness - General Chief Complaint: Chest Pain Stated Complaint: CHEST PAIN Time Seen by Provider: 02/03/17 12:45 - History of Present Illness Initial Comments: 02/03/17 14:15 The patient is a 81 year old female, with a significant past medical history of DM, GERD, HTN, HLD, Hypothyroidism, Gout who presents to the emergency department with chest pain since last night. Patient describes chest pain is midsternal, 5/10 in severity, radiating to bilateral arms with associated nausea and SOB. Patient reports her pain was intense last night however slightly subsided today. Denies leg swelling, denies orthopnea. Note, patient is ambulatory by cane at home. She denies headache or dizziness. She denies fever, chills, abdominal pain, vomit, diarrhea or constipation. She denies dysuria, frequency, urgency or hematuria. 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 Jam Sunshine Past History - Past Medical History Allergies/Adverse Reactions: Allergies Allergy/AdvReac Type Severity Reaction Status Date / Time No Known Allergies Allergy Verified 02/03/17 11:55 Home Medications: Ambulatory Orders Ranitidine HCl [Zantac] 150 mg PO BID #60 tablet 06/15/15 Acetaminophen [Tylenol .Regular Strength -] 650 mg PO Q6H PRN #0 tablet Aspirin Coated [Ecotrin -] 81 mg PO DAILY #30 tablet.ec 07/09/16 Atorvastatin Ca [Lipitor] 20 mg PO DAILY #0 07/09/16 Carvedilol [Coreg -] 12.5 mg PO BID #180 tablet 07/09/16 Fluticasone Prop 0.05% Nasal [Flonase -] 1 spray NS BID PRN #1 spray 07/09/16 Furosemide [Lasix -] 40 mg PO DAILY #30 tablet 07/09/16 Gabapentin [Neurontin -] 300 mg PO DAILY #0 capsule 07/09/16 Hydralazine HCl [Apresoline -] 25 mg PO BID #60 tablet 07/09/16 Insulin Sliding Scale [Novolog Vial Sliding Scale -] 1 vial SQ ACHS #0 units Insulin Sliding Scale [Novolog Vial Sliding Scale -] 1 vial SQ BIDI units 07/09 Isosorbide Mononitrate [Imdur -] 60 mg PO DAILY #30 tab.sr.24h 07/09/16 Levothyroxine [Synthroid -] 50 mcg PO DAILY #90 tablet 07/09/16 Losartan Potassium 50 mg PO DAILY #0 07/09/16 Nitroglycerin Sublingual [Nitrostat -] 0.4 mg SL Q5M PRN #30 tab 07/09/16 Polyethylene Glycol 3350 [Miralax 119 gm Btl -] 17 gm PO DAILY PRN #30 bottle Insulin (Levemir) [Levemir Vial] 12 units SQ HS 02/03/17 CHF: Yes Diabetes: Yes GI Disorders: Yes (GERD.) HTN: Yes Hypercholesterolemia: Yes Suicide Attempt (Hx): No Thyroid Disease: Yes (HYPO.) - Surgical History Abdominal Surgery: Yes - Immunization History Immunization Up to Date: Yes - Psycho/Social/Smoking Cessation Hx Anxiety: No Suicidal Ideation: No Smoking Status: No Smoking History: Never smoked Have you smoked in the past 12 months: No Number of Cigarettes Smoked Daily: 0 Hx Alcohol Use: No Drug/Substance Use Hx: No Substance Use Type: None Hx Substance Use Treatment: No Review of Systems - Review of Systems Comments:: 02/03/17 14:16 " GENERAL/CONSTITUTIONAL: No fever or chills. No weakness. HEAD, EYES, EARS, NOSE AND THROAT: No change in vision. No ear pain or discharge. No sore throat. GASTROINTESTINAL: + nausea. No vomiting, diarrhea or constipation. GENITOURINARY: No dysuria, frequency, or change in urination. CARDIOVASCULAR: + chest pain , shortness of breath. RESPIRATORY: No cough, wheezing, or hemoptysis. MUSCULOSKELETAL: No joint or muscle swelling or pain. No neck or back pain. SKIN: No rash NEUROLOGIC: No headache, vertigo, loss of consciousness, or change in strength/ sensation. ENDOCRINE: No increased thirst. No abnormal weight change. HEMATOLOGIC/LYMPHATIC: No anemia, easy bleeding, or history of blood clots. ALLERGIC/IMMUNOLOGIC: No hives or skin allergy. " *Physical Exam - Vital Signs Last Vital Signs Temp Pulse Resp BP Pulse Ox 98.2 F 78 20 138/68 100 02/03/17 19:41 02/03/17 19:41 02/03/17 19:41 02/03/17 19:41 02/03/17 19:41 - Physical Exam Comments: 02/03/17 14:16 "GENERAL: Awake, alert, and fully oriented, in no acute distress HEAD: No signs of trauma EYES: PERRLA, EOMI, sclera anicteric, conjunctiva clear ENT: Auricles normal inspection, hearing grossly normal, nares patent, oropharynx clear without exudates. Moist mucosa NECK: Normal ROM, supple, no lymphadenopathy, JVD, or masses LUNGS: Breath sounds equal, clear to auscultation bilaterally. No wheezes, and no crackles HEART: Regular rate and rhythm, normal S1 and S2, no murmurs, rubs or gallops ABDOMEN: Soft, nontender, normoactive bowel sounds. No guarding, no rebound. No masses EXTREMITIES: Normal range of motion, no edema. No clubbing or cyanosis. No cords, erythema, or tenderness NEUROLOGICAL: Cranial nerves II through XII grossly intact. Normal speech, normal gait SKIN: Warm, Dry, normal turgor, no rashes or lesions noted." Heart Score/ECG Review - History History: Moderately suspicious - Electrocardiogram EKG: Normal - Age Age: >/= 65 - Risk Factors Risk Factors Heart Score: Yes Hx Hypercholesterolemia, Yes Hx Hypertension, Yes Hx Diabetes Based on the list above the patient has:: >/=3 risk factors or Hx atherosclerotic disease - Troponin Troponin: </= normal limit - Score Heart Score - Total: 5 - ECG Impressions Comment:: 02/03/17 13:05 NSR, no MIN/STDs, no TWIs, intervals wnl, axis wnl ED Treatment Course - LABORATORY CBC & Chemistry Diagram: 02/03/17 13:36 02/03/17 13:36 - ADDITIONAL ORDERS Additional order review: Laboratory Results 02/03/17 02/03/17 13:36 13:36 INR 1.12 PTT (Actin FS) 28.6 Sodium 132 L Potassium 5.7 H D Chloride 94 L Carbon Dioxide 29 Anion Gap 9 BUN 41 H Creatinine 2.3 H Creat Clearance w eGFR 20.35 Random Glucose 209 H D Calcium 8.0 L Magnesium 2.1 D Total Bilirubin 0.6 D AST 28 D ALT 21 Alkaline Phosphatase 121 H Creatine Kinase 192 Creatine Kinase Index 0.7 CK-MB (CK-2) 1.406 Troponin I < 0.02 B-Natriuretic Peptide 280.83 Total Protein 7.0 Albumin 3.6 02/03/17 13:36 RBC 3.50 L MCV 89.5 MCHC 32.9 RDW 13.8 MPV 8.1 Neutrophils % 69.0 Lymphocytes % 14.9 D Monocytes % 7.5 Eosinophils % 8.2 H Basophils % 0.4 - RADIOLOGY Radiology Studies Ordered: Category Date Time Status CHEST PA & LAT [RAD] Stat Radiology 02/03/17 13:04 Completed - Medications Given in the ED: ED Medications Discontinued Medications Generic Name Dose Route Start Last Admin Trade Name Jourdanq PRN Reason Stop Dose Admin Aspirin 162 mg 02/03/17 13:04 02/03/17 13:11 Asa - PO 02/03/17 13:05 162 mg ONCE ONE Administration Medical Decision Making - Medical Decision Making 02/03/17 13:06 81 F with multiple cardiac risk factors presents to ER with 1 day of midsternal chest pain. Concerning for ACS, although EKG with no ischemic changes. Pt's HEART score is at least 4 given age and risk factors. PE unlikely as pain is not pleuritic and pt's vitals are wnl. No asymmetric leg swelling, no h/o DVT/ PE. Pain with no characteristics of dissection (no tearing sensation, no radiation to back). - Labs, trop, BNP - CXR - Aspirin - Admit *DC/Admit/Observation/Transfer Diagnosis at time of Disposition: Chest pain Qualifiers: Chest pain type: chest pain on breathing Qualified Code(s): R07.1 - Chest pain on breathing - Discharge Dispostion Admit: Yes
[2017-02-03] MEDS ORDERED: ASPIRIN 81 MG CHEWABLE TABLETS ONE (13:13)
[2017-02-03 14:07] LABS: BASOPHIL 0.4 % (0-2.0); EOSINOPHIL 8.2 % (0-4.5); MCH 29.4 pg (25.7-33.7); MCHC 32.9 g/dl (32.0-36.0); MEAN CELL VOLUME 89.5 fl (80-96); MEAN PLT VOLUME 8.1 fl (7.5-11.1); PLATELET COUNT 217 K/MM3 (134-434); RDW 13.8 % (11.6-15.6); WHITE BLOOD COUNT 11.6 K/mm3 (4.0-10.0)
[2017-02-03 14:21] LABS: INR 1.12 (0.82-1.09); PROTHROMBIN TIME (PATIENT) 12.4 SEC (9.98-11.88)
[2017-02-03 14:24] LABS: ACTIVATED PTT 28.6 SECONDS (26.9-34.4)
[2017-02-03 14:33] LABS: ALBUMIN 3.6 g/dl (3.4-5.0); ANION GAP 9 (8-16); BILIRUBIN,TOTAL 0.6 mg/dL (0.2-1.0); CO2 29 mmol/L (21-32); CREATININE 2.3 mg/dL (0.55-1.02); GLUCOSE,RANDOM 209 mg/dL (74-106); SGPT/ALT 21 U/L (12-78)
[2017-02-03 14:36] LABS: ALK PHOS 121 U/L (45-117); TROPONIN I < 0.02 ng/ml (0.00-0.05)
[2017-02-03 14:41] LABS: MAGNESIUM 2.1 mg/dL (1.8-2.4)
[2017-02-03 14:42] LABS: CPK 192 IU/L (26-192); SGOT/AST 28 U/L (15-37)
--- NOTE | 2017-02-03 18:33 | CON.CARD ---
Consult Consult Specialty:: Cardiology Referred by:: Jam Sunshine MD Reason for Consultation:: Chest pain - History of Present Illness Chief Complaint: Chest pain History of Present Illness: Patient is a 81 year old female with history of HTN, hypercholesterolemia, type 2 DM, osteoarthritis, hypothyroidism, CKD, LV diastolic dysfunction h/o failure , non-obstructive CAD, last saw Dr. Kiser 11/30/2016 presented with atypical non- exertional pulling chest discomfort radiating to both shoulders and arm and dyspnea awaking from sleep, reports worse with deep inspiration. She denies palpitations, near or true syncope, orthopnea, PNE or LE edema. - History Source History Provided By: Patient Limitations to Obtaining History: No Limitations - Past Medical History Cardio/Vascular: Yes: CAD, CHF, HTN, Hyperlipdemia Gastrointestinal: Yes: GERD Renal/: Yes: Renal Inusuff (recent baseline creatinine above 2.0)) Endocrine: Yes: Diabetes Mellitus (Insulin dependent), Hypothyroidism - Past Surgical History Past Surgical History: Yes: Hysterectomy (BRAXTON, BSO in 1981), Oopherectomy - Alcohol/Substance Use Hx Alcohol Use: No History of Substance Use: reports: None - Smoking History Smoking history: Never smoked Have you smoked in the past 12 months: No Aproximately how many cigarettes per day: 0 - Social History Usual Living Arrangement: With Spouse ADL: Independent History of Recent Travel: Yes (WENT TO [place] TWO YEARS AGO) Home Medications - Allergies Allergies/Adverse Reactions: Allergies Allergy/AdvReac Type Severity Reaction Status Date / Time No Known Allergies Allergy Verified 02/03/17 11:55 - Home Medications Home Medications: Ambulatory Orders Ranitidine HCl [Zantac] 150 mg PO BID #60 tablet 06/15/15 Acetaminophen [Tylenol .Regular Strength -] 650 mg PO Q6H PRN #0 tablet Aspirin Coated [Ecotrin -] 81 mg PO DAILY #30 tablet.ec 07/09/16 Atorvastatin Ca [Lipitor] 20 mg PO DAILY #0 07/09/16 Carvedilol [Coreg -] 12.5 mg PO BID #180 tablet 07/09/16 Fluticasone Prop 0.05% Nasal [Flonase -] 1 spray NS BID PRN #1 spray 07/09/16 Furosemide [Lasix -] 40 mg PO DAILY #30 tablet 07/09/16 Gabapentin [Neurontin -] 300 mg PO DAILY #0 capsule 07/09/16 Hydralazine HCl [Apresoline -] 25 mg PO BID #60 tablet 07/09/16 Insulin (Levemir) [Levemir Vial] 20 units SQ HS #0 ml 07/09/16 Insulin Sliding Scale [Novolog Vial Sliding Scale -] 1 vial SQ ACHS #0 units Insulin Sliding Scale [Novolog Vial Sliding Scale -] 1 vial SQ BIDI units 07/09 Isosorbide Mononitrate [Imdur -] 60 mg PO DAILY #30 tab.sr.24h 07/09/16 Levothyroxine [Synthroid -] 50 mcg PO DAILY #90 tablet 07/09/16 Losartan Potassium 50 mg PO DAILY #0 07/09/16 Nitroglycerin Sublingual [Nitrostat -] 0.4 mg SL Q5M PRN #30 tab 07/09/16 Polyethylene Glycol 3350 [Miralax 119 gm Btl -] 17 gm PO DAILY PRN #30 bottle Family Disease History - Family Disease History Family Disease History: Diabetes: Brother, Sister, Other: Father (dies in his 50s ? etiology) Review of Systems - Review of Systems Cardiovascular: reports: Chest Pain, Shortness of Breath Vital Signs: Vital Signs Temperature 97.6 F 02/03/17 11:55 Pulse Rate 80 02/03/17 11:55 Respiratory Rate 18 02/03/17 11:55 Blood Pressure 147/61 02/03/17 11:55 O2 Sat by Pulse Oximetry (%) 99 02/03/17 16:01 Constitutional: Yes: No Distress, Calm Neck: Yes: Supple Respiratory: Yes: Regular, CTA Bilaterally Gastrointestinal: Yes: Normal Bowel Sounds, Soft, Abdomen, Obese Cardiovascular: Yes: Regular Rate and Rhythm JVD: No Carotid Bruit: No Heart Sounds: Yes: S1, S2 - Other Data Labs, Other Data: INR, PTT INR 1.12 (0.82-1.09) 02/03/17 13:36 NSR @ [address]-T changes similar to previous 11/2016 Prior Cardiac Procedures: Cardiac Catheterization Ejection Fraction %: LVEF > or = 40 % Imaging - Results Chest X-ray: Report Reviewed (NAD) Problem List - Problems (1) Diabetes mellitus with diabetic cardiomyopathy Code(s): E11.59 - TYPE 2 DIABETES MELLITUS WITH OTH CIRCULATORY COMPLICATIONS I43 - CARDIOMYOPATHY IN DISEASES CLASSIFIED ELSEWHERE (2) Dyspnea Code(s): R06.00 - DYSPNEA, UNSPECIFIED Qualifiers: Dyspnea type: other forms of dyspnea Qualified Code(s): R06.09 - Other forms of dyspnea (3) Endothelial dysfunction of coronary artery Code(s): I99.8 - OTHER DISORDER OF CIRCULATORY SYSTEM (4) Anemia Code(s): D64.9 - ANEMIA, UNSPECIFIED Qualifiers: Anemia type: unspecified type Qualified Code(s): D64.9 - Anemia, unspecified (5) CAD (coronary artery disease) Code(s): I25.10 - ATHSCL HEART DISEASE OF [place] CORONARY ARTERY W/O ANG PCTRS Qualifiers: Coronary Disease-Associated Artery/Lesion type: [place] artery [place] vs. transplanted heart: [place] heart Associated angina: with stable angina Qualified Code(s): I25.119 - Atherosclerotic heart disease of [place] coronary artery with unspecified angina pectoris (6) CKD (chronic kidney disease) stage 3, GFR 30-59 ml/min Code(s): N18.3 - CHRONIC KIDNEY DISEASE, STAGE 3 (MODERATE) (7) Chest pain Code(s): R07.9 - CHEST PAIN, UNSPECIFIED Qualifiers: Chest pain type: chest pain on breathing Qualified Code(s): R07.1 - Chest pain on breathing; R07.81 - Pleurodynia (8) Diabetes mellitus Code(s): E11.9 - TYPE 2 DIABETES MELLITUS WITHOUT COMPLICATIONS Qualifiers: Diabetes mellitus type: type 2 Diabetes mellitus complication status: without complication Diabetes mellitus blue leather setter insulin use: without blue leather setter use Qualified Code(s): E11.9 - Type 2 diabetes mellitus without complications (9) Hyperlipidemia Code(s): E78.5 - HYPERLIPIDEMIA, UNSPECIFIED Qualifiers: Hyperlipidemia type: pure hypercholesterolemia (10) Hypertension Code(s): I10 - ESSENTIAL (PRIMARY) HYPERTENSION Qualifiers: Hypertension type: essential hypertension Qualified Code(s): I10 - Essential (primary) hypertension (11) Hypothyroidism Code(s): E03.9 - HYPOTHYROIDISM, UNSPECIFIED Qualifiers: Hypothyroidism type: unspecified Qualified Code(s): E03.9 - Hypothyroidism, unspecified Assessment/Plan 1. Atypical chest pain syndrome with underlying non-obstructive CAD, angina pectoris, probable endothelial dysfunction 2. 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 Aortic valve stenosis - mild in severity 4. HTN 5. NIDDM 6. Hypercholesterolemia 7. Hypothyroidism 8. Chronic kidney disease 9. Anemia PLAN: 1. Ruling out for [place] 2. Continue Coreg 12.5 mg BID, Losartan 50 mg QD, Hydralazine 25 mg BID and Imdur 60 mg QD as hemodynamics tolerate 3. Continue Lipitor 20 mg QHS, ASA 81 mg QD and Lasix 40 mg QD 4. Discharge planning and advised to follow up in office 5. Thank you for consultative opportunity
--- NOTE | 2017-02-03 20:09 | HP ---
Admitting History and Physical - Primary Care Physician PCP: Jam Sunshine - Admission Chief Complaint: Chest pain History of Present Illness: Pt States that started to have SSCP last night , while in bed, associated with SOB; pt states that had CP part of the night. Pt states that last week she felt dizzy and fell, hit her head ( right side). Pt now w/o CP, palpitations, SOB. Pt's dg at bed side. History Source: Patient, Family Member (daughter- at bed side) - Past Medical History Cardiovascular: Yes: CAD (non-obstructive), CHF, HTN, Hyperlipdemia Gastrointestinal: Yes: GERD Renal/: Yes: Renal Inusuff (recent baseline creatinine above 2.0)) Endocrine: Yes: Diabetes Mellitus (Insulin dependent), Hypothyroidism - Past Surgical History Past Surgical History: Yes: Hysterectomy (BRAXTON, BSO in 1981), Oopherectomy - Smoking History Smoking history: Never smoked Have you smoked in the past 12 months: No Aproximately how many cigarettes per day: 0 - Alcohol/Substance Use Hx Alcohol Use: No History of Substance Use: reports: None - Social History ADL: Independent History of Recent Travel: Yes (WENT TO [place] TWO YEARS AGO) Home Medications - Allergies Allergies/Adverse Reactions: Allergies Allergy/AdvReac Type Severity Reaction Status Date / Time No Known Allergies Allergy Verified 02/03/17 11:55 - Home Medications Home Medications: Ambulatory Orders Ranitidine HCl [Zantac] 150 mg PO BID #60 tablet 06/15/15 Acetaminophen [Tylenol .Regular Strength -] 650 mg PO Q6H PRN #0 tablet Aspirin Coated [Ecotrin -] 81 mg PO DAILY #30 tablet.ec 07/09/16 Atorvastatin Ca [Lipitor] 20 mg PO DAILY #0 07/09/16 Carvedilol [Coreg -] 12.5 mg PO BID #180 tablet 07/09/16 Fluticasone Prop 0.05% Nasal [Flonase -] 1 spray NS BID PRN #1 spray 07/09/16 Furosemide [Lasix -] 40 mg PO DAILY #30 tablet 07/09/16 Gabapentin [Neurontin -] 300 mg PO DAILY #0 capsule 07/09/16 Hydralazine HCl [Apresoline -] 25 mg PO BID #60 tablet 07/09/16 Insulin Sliding Scale [Novolog Vial Sliding Scale -] 1 vial SQ ACHS #0 units Insulin Sliding Scale [Novolog Vial Sliding Scale -] 1 vial SQ BIDI units 07/09 Isosorbide Mononitrate [Imdur -] 60 mg PO DAILY #30 tab.sr.24h 07/09/16 Levothyroxine [Synthroid -] 50 mcg PO DAILY #90 tablet 07/09/16 Losartan Potassium 50 mg PO DAILY #0 07/09/16 Nitroglycerin Sublingual [Nitrostat -] 0.4 mg SL Q5M PRN #30 tab 07/09/16 Polyethylene Glycol 3350 [Miralax 119 gm Btl -] 17 gm PO DAILY PRN #30 bottle Insulin (Levemir) [Levemir Vial] 12 units SQ HS 02/03/17 Family Disease History - Family Disease History Family Disease History: Diabetes: Brother, Sister, Other: Father (dies in his 50s ? etiology) Review of Systems - Review of Systems Constitutional: denies: Chills, Fever Eyes: denies: Blurred Vision, Recent Change in Vision HENT: reports: Ear Discharge. denies: Difficult Swallowing, Ear Pain Neck: denies: Pain on Movement, Stiffness Cardiovascular: denies: Chest Pain (now), Palpitations, Shortness of Breath (now ) Respiratory: denies: Cough, SOB (now), SOB on Exertion, Wheezing Gastrointestinal: denies: Abdominal Pain, Diarrhea, Indigestion, Nausea, Vomiting Genitourinary: denies: Burning, Dysuria, Flank Pain Musculoskeletal: denies: Extremity Pain, Joint Swelling Integumentary: denies: Eczema, Rash Neurological: denies: Change in LOC, Change in Speech, Confusion, Numbness Endocrine: denies: Excessive Sweating, Intolerance to Cold Hematology/Lymphatic: denies: Easily Bruised, Excessive Bleeding Psychiatric: denies: Anxiety, Depression Physical Examination Vital Signs: Vital Signs Temperature 98.2 F 02/03/17 19:41 Pulse Rate 78 02/03/17 19:41 Respiratory Rate 20 02/03/17 19:41 Blood Pressure 138/68 02/03/17 19:41 O2 Sat by Pulse Oximetry (%) 100 02/03/17 19:41 Constitutional: Yes: No Distress, Calm Eyes: Yes: EOM Intact, PERRL HENT: Yes: Normocephalic. No: Epistaxis, Rhinnorhea Neck: Yes: Trachea Midline. No: Lymphadenopathy Cardiovascular: Yes: Regular Rate and Rhythm, S1, S2 Respiratory: Yes: Regular, CTA Bilaterally. No: Rales Gastrointestinal: Yes: Normal Bowel Sounds, Soft. No: Tenderness ...Rectal Exam: Yes: Deferred Breast(s): Yes: Other (deferred) Edema: No Integumentary: No: Bruising, Rash Neurological: Yes: Alert, Oriented, Cran Nerves II-XII Intact (except decrease hearing in right ear- new per patient and daughter.) Psychiatric: Yes: Alert, Oriented Labs: reviewed Imaging - Results Chest X-ray: Report Reviewed Problem List - Problems (1) CAD (coronary artery disease) Code(s): I25.10 - ATHSCL HEART DISEASE OF [place] CORONARY ARTERY W/O ANG PCTRS Qualifiers: Coronary Disease-Associated Artery/Lesion type: [place] artery [place] vs. transplanted heart: [place] heart Associated angina: with stable angina Qualified Code(s): I25.119 - Atherosclerotic heart disease of [place] coronary artery with unspecified angina pectoris (2) CHF (congestive heart failure) Code(s): I50.9 - HEART FAILURE, UNSPECIFIED (3) Chest pain Code(s): R07.9 - CHEST PAIN, UNSPECIFIED Qualifiers: Chest pain type: chest pain on breathing Qualified Code(s): R07.1 - Chest pain on breathing; R07.81 - Pleurodynia (4) Diabetes mellitus Code(s): E11.9 - TYPE 2 DIABETES MELLITUS WITHOUT COMPLICATIONS Qualifiers: Diabetes mellitus type: type 2 Diabetes mellitus complication status: without complication Diabetes mellitus fpc insulin use: without fpc use Qualified Code(s): E11.9 - Type 2 diabetes mellitus without complications (5) Hyponatremia Code(s): E87.1 - HYPO-OSMOLALITY AND HYPONATREMIA (6) Hyperkalemia Code(s): E87.5 - HYPERKALEMIA (7) Fall Code(s): W19.XXXA - UNSPECIFIED FALL, INITIAL ENCOUNTER (8) Head trauma Code(s): S09.90XA - UNSPECIFIED INJURY OF HEAD, INITIAL ENCOUNTER (9) Decreased hearing of right ear Code(s): H91.91 - UNSPECIFIED HEARING LOSS, RIGHT EAR Assessment/Plan Admit to monitor bed Serial CE Cardio consult Head CT scan to r/o SDH AM labs
[2017-02-03] MEDS: CARVEDILOL 12.5 MG TABLET (FP) PO SCH (21:25)
[2017-02-03] MEDS: RANITIDINE HCL 150 MG TABLET (FP) PO SCH (21:25)
[2017-02-03] MEDS: hydrALAZINE HCL 25 MG TABLET (FP) PO SCH (21:26)
[2017-02-03] MEDS ORDERED: ATORVASTATIN CA 20 MG TABLET (FP) PO SCH (22:00)
[2017-02-03 22:34] LABS: CPK 158 IU/L (26-192); TROPONIN I < 0.02 ng/ml (0.00-0.05)
[2017-02-04] MEDS: hydrALAZINE HCL 25 MG TABLET (FP) PO SCH ×2 (06:49→13:17)
[2017-02-04] MEDS: FUROSEMIDE 40 MG TABLET (FP) PO SCH ×2 (06:49→13:16)
[2017-02-04] MEDS ORDERED: glipiZIDE-XL 5 MG TAB.ER.24 PO SCH (07:00)
[2017-02-04] MEDS ORDERED: LEVOTHYROXINE NA 50 MCG TABLET (FP) PO SCH (07:00)
[2017-02-04 08:32] LABS: ANION GAP 9 (8-16); CALCIUM 8.1 mg/dL (8.5-10.1); CO2 28 mmol/L (21-32); CREATININE 2.2 mg/dL (0.55-1.02); GLUCOSE,RANDOM 165 mg/dL (74-106)
[2017-02-04 08:41] LABS: CPK 162 IU/L (26-192); THYROID STIMULATING HORMONE 1.32 uIU/ml (0.358-3.74); TROPONIN I < 0.02 ng/ml (0.00-0.05)
[2017-02-04] MEDS ORDERED: ISOSORBIDE MONONITRATE 30 MG TAB.SR.24H (FP) PO ONE (09:31)
[2017-02-04] MEDS ORDERED: ISOSORBIDE MONONITRATE 60 MG TAB.SR.24H (FP) PO ONE (09:31)
[2017-02-04] MEDS: RANITIDINE HCL 150 MG TABLET (FP) PO SCH (09:49)
[2017-02-04] MEDS: CARVEDILOL 12.5 MG TABLET (FP) PO SCH (09:49)
[2017-02-04] MEDS ORDERED: ASPIRIN 81 MG CHEWABLE TABLETS PO SCH (10:00)
[2017-02-04] MEDS ORDERED: ISOSORBIDE MONONITRATE 30 MG, ISOSORBIDE MONONITRATE 60 MG PO SCH (10:00)
[2017-02-04] MEDS ORDERED: LOSARTAN POTASSIUM 50 MG TABLET (FP) PO SCH (10:00)
[2017-02-04] MEDS ORDERED: ISOSORBIDE MONONITRATE 30 MG TAB.SR.24H (FP) PO SCH (10:00)
[2017-02-04 12:06] VITALS: BP 147/64; PULSE 62; TEMP 97.8
--- NOTE | 2017-02-04 13:29 | DS ---
Physical Examination Vital Signs: Vital Signs Temperature 97.8 F 02/04/17 10:00 Pulse Rate 62 02/04/17 10:00 Respiratory Rate 22 02/04/17 10:00 Blood Pressure 147/64 02/04/17 10:00 O2 Sat by Pulse Oximetry (%) 97 02/03/17 21:00 Findings/Remarks: Pt w/o SOB, CP, palpitations, Dizziness, abd pain, heartburns. Constitutional: Yes: No Distress, Calm Cardiovascular: Yes: Regular Rate and Rhythm, S1, S2 Respiratory: Yes: Regular, CTA Bilaterally. No: Rales Gastrointestinal: Yes: Normal Bowel Sounds, Soft. No: Tenderness Edema: No Neurological: Yes: Alert, Oriented Labs: CBC, BMP 02/04/17 06:05 Discharge Summary Reason For Visit: CHEST PAIN Current Active Problems Chest pain (Acute) Decreased hearing of right ear (Acute) Diabetes mellitus with diabetic cardiomyopathy (Acute) Dyspnea (Acute) Endothelial dysfunction of coronary artery (Acute) Fall (Acute) Head trauma (Acute) Hyperkalemia (Acute) Procedures: Principal: Head CT scan. CXR Hospital Course: Pt came to ER with SSCP at rest at home; pt zahraa with fall and head trauma last week; pt was admitted to Telemetry, had serial CE (negative); pt had Head CT scan (negative for acute event). Pt was seen by Cardio (Dr. Arroyo) and cleared for DC. Pt to DC'ed home today with f/u with our office and Cardio office. Pt's care was d/w pt and pt's dg. Condition: Good - Instructions Diet, Activity, Other Instructions: DIET: ADA, Low salt, Low cholesterol Resume home medications (Imdur should be 90 mg daily). Referrals: Apollo Kiser MD [Staff Physician] - (in 1-2 weeks) Jam Sunshine MD [Primary Care Provider] - (in 2-4 weeks) Disposition: HOME - Home Medications Comprehensive Discharge Medication List: Ambulatory Orders this list might NOT be accurate Ranitidine HCl [Zantac] 150 mg PO BID #60 tablet 06/15/15 Acetaminophen [Tylenol .Regular Strength -] 650 mg PO Q6H PRN #0 tablet Aspirin Coated [Ecotrin -] 81 mg PO DAILY #30 tablet.ec 07/09/16 Atorvastatin Ca [Lipitor] 20 mg PO DAILY #0 07/09/16 Carvedilol [Coreg -] 12.5 mg PO BID #180 tablet 07/09/16 Fluticasone Prop 0.05% Nasal [Flonase -] 1 spray NS BID PRN #1 spray 07/09/16 Furosemide [Lasix -] 40 mg PO DAILY #30 tablet 07/09/16 Gabapentin [Neurontin -] 300 mg PO DAILY #0 capsule 07/09/16 Hydralazine HCl [Apresoline -] 25 mg PO BID #60 tablet 07/09/16 Insulin Sliding Scale [Novolog Vial Sliding Scale -] 1 vial SQ ACHS #0 units Insulin Sliding Scale [Novolog Vial Sliding Scale -] 1 vial SQ BIDI units 07/09 Isosorbide Mononitrate [Imdur -] 60 mg PO DAILY #30 tab.sr.24h 07/09/16 Levothyroxine [Synthroid -] 50 mcg PO DAILY #90 tablet 07/09/16 Losartan Potassium 50 mg PO DAILY #0 07/09/16 Nitroglycerin Sublingual [Nitrostat -] 0.4 mg SL Q5M PRN #30 tab 07/09/16 Polyethylene Glycol 3350 [Miralax 119 gm Btl -] 17 gm PO DAILY PRN #30 bottle Insulin (Levemir) [Levemir Vial] 12 units SQ HS 02/03/17
--- NOTE | 2017-02-04 18:41 | EKG ---
Test Reason : Blood Pressure : / mmHG Vent. Rate : 064 BPM Atrial Rate : 064 BPM P-R Int : 118 ms QRS Dur : 082 ms QT Int : 420 ms P-R-T Axes : -09 061 063 degrees QTc Int : 433 ms NORMAL SINUS RHYTHM POSSIBLE ANTERIOR INFARCT , AGE UNDETERMINED ABNORMAL ECG WHEN COMPARED WITH ECG OF 07-JUL-2016 10:33, NO SIGNIFICANT CHANGE WAS FOUND Confirmed by LAZARO BALLESTEROS MD ([id number]) on 02/04/2017 6:41:36 PM Referred By: Confirmed By:LAZARO BALLESTEROS MD
[2017-02-04] MEDS ORDERED: GABAPENTIN 100 MG CAPSULE (FP) PO SCH (22:00)
== END 2017-02-04 15:40 | disposition home or self-care (01) | DRG 313 ==
LOC: JER 11:45 → JERBED 15:39 → J4W 21:00
PROVIDERS: ADMIT Specialist; ATTEND Specialist
DX: R07.89 Other chest pain (principal); I13.0 Hypertensive heart and chronic kidney disease with heart failure and stage 1 through stage 4 chronic kidney disease, or unspecified chronic kidney disease; I43 Cardiomyopathy in diseases classified elsewhere; E87.1 Hypo-osmolality and hyponatremia; K21.9 Gastro-esophageal reflux disease without esophagitis; E78.5 Hyperlipidemia, unspecified; E03.9 Hypothyroidism, unspecified; M10.9 Gout, unspecified; I25.10 Atherosclerotic heart disease of native coronary artery without angina pectoris; I99.8 Other disorder of circulatory system; D64.9 Anemia, unspecified; E11.22 Type 2 diabetes mellitus with diabetic chronic kidney disease; N18.3 Chronic kidney disease, stage 3 (moderate); I50.9 Heart failure, unspecified; I35.0 Nonrheumatic aortic (valve) stenosis; E11.59 Type 2 diabetes mellitus with other circulatory complications; E87.5 Hyperkalemia; S09.8XXS Other specified injuries of head, sequela; W19.XXXS Unspecified fall, sequela; Z79.4 Long term (current) use of insulin
CPT/HCPCS: 36415; 70450-TC; 71020-TC; 80048; 80053; 82553; 83735; 83880; 84443; 84484; 85025; 85610; 85730; 93005; 93010; 99285-25

== ENCOUNTER 2017-10-02 12:25 | Inpatient (IN) | payer OTHER ==
--- NOTE | 2017-10-02 12:43 | PDOC ---
History of Present Illness - General Chief Complaint: Injury Stated Complaint: FALL Time Seen by Provider: 10/02/17 12:31 - History of Present Illness Initial Comments: 10/02/17 13:00 The patient is an 81 year old female with a history of HTN, HLD, DM, CHF who presents for evaluation following a witnessed fall at home. The patient is accompanied by family who assist in providing the history. They report that the patient experienced a witnessed fall at home falling onto her right sided with head trauma without LOC earlier this morning. The patient states that she does not know why or how she fell, but has been unable to ambulate due to pain since the incident. The patient is currently complaining of right hip pain, right shoulder pain, and back pain. She otherwise denies fevers, chills, SOB, chest pain, palpitations, nausea, vomiting, abdominal pain, headache, or changes with urination or bowel movements. Past History - Past Medical History Allergies/Adverse Reactions: Allergies Allergy/AdvReac Type Severity Reaction Status Date / Time No Known Allergies Allergy Verified 10/02/17 12:37 Home Medications: Ambulatory Orders Ranitidine HCl [Zantac] 150 mg PO BID #60 tablet 06/15/15 Aspirin Coated [Ecotrin -] 81 mg PO DAILY #30 tablet.ec 07/09/16 Carvedilol [Coreg -] 12.5 mg PO BID #180 tablet 07/09/16 Furosemide [Lasix -] 40 mg PO DAILY #30 tablet 07/09/16 Insulin Sliding Scale [Novolog Vial Sliding Scale -] 1 vial SQ ACHS #0 units Levothyroxine [Synthroid -] 50 mcg PO DAILY #90 tablet 07/09/16 Losartan Potassium 50 mg PO DAILY #0 07/09/16 Insulin (Levemir) [Levemir Vial] 12 units SQ HS 02/03/17 Isosorbide Mononitrate [Imdur -] 90 mg PO DAILY #90 tablet 02/04/17 Allopurinol [Zyloprim -] 100 mg PO DAILY 10/02/17 Atorvastatin Ca [Lipitor] 10 mg PO HS 10/02/17 Cinacalcet HCl [Sensipar] 30 mg PO DAILY 10/02/17 Gabapentin [Neurontin -] 300 mg PO HS 10/02/17 Glipizide [Glucotrol -] 5 mg PO TID 10/02/17 Spironolactone [Aldactone] 25 mg PO DAILY 10/02/17 hydrALAZINE HCL [Apresoline -] 50 mg PO TID 10/02/17 COPD: No CHF: Yes Diabetes: Yes GI Disorders: Yes (GERD.) HTN: Yes Hypercholesterolemia: Yes Thyroid Disease: Yes (HYPO.) - Surgical History Abdominal Surgery: Yes - Immunization History Immunization Up to Date: Yes - Suicide/Smoking/Psychosocial Hx Smoking Status: No Smoking History: Never smoked Have you smoked in the past 12 months: No Number of Cigarettes Smoked Daily: 0 Information on smoking cessation initiated: No Hx Alcohol Use: No Drug/Substance Use Hx: No Substance Use Type: None Hx Substance Use Treatment: No Review of Systems - Review of Systems Comments:: 10/02/17 13:03 Constitutional: No fevers, chills, fatigue, malaise HEENT: No Rhinorrhea, nasal congestion, visual changes Cardiovascular: No chest pain, syncope, palpitations, lightheadedness Respiratory: No Cough, SOB, Hemoptysis, Gastrointestinal: No Abdominal pain, Nausea, Vomiting, Constipation, Diarrhea, Melena Genitourinary: No Dysuria, Frequency, Urgency, Hesitancy, Hematuria, Flank pain Musculoskeletal: Right hip and shoulder pain. Back pain. No Myalgia, arthralgia Skin: No rashes, itching, bruising, pallor Neurologic: No Headache, Dizziness, Numbness, Weakness, or Tingling Psychiatric: No Hallucinations. No SI or HI *Physical Exam - Vital Signs Last Vital Signs Temp Pulse Resp BP Pulse Ox 98.1 F 61 16 131/56 100 10/02/17 12:30 10/02/17 12:30 10/02/17 12:30 10/02/17 12:30 10/02/17 12:30 - Physical Exam Comments: 10/02/17 13:03 General Appearance: Nourished. No Apparent Distress HEENT: EOMI, [place]. No Pharyngeal Erythema, Tonsillar Exudate, Tonsillar Erythema Neck: No Cervical Lymphadenopathy or C-Spine Tenderness. Respiratory/Chest: Lungs Clear, Normal Breath Sounds. No Crackles, Rales, Rhonchi, Wheezing Cardiovascular: Regular Rhythm, Regular Rate. Soft systolic murmur noted on exam. No Gallops, Rubs Gastrointestinal/Abdominal: Normal Bowel Sounds, Soft. No Guarding, Rebound, Tenderness Musculoskeletal: Tenderness to palpation to the right hip with reduced ROM secondary to pain. Tenderness to palpation of the right shoulder. No CVA Tenderness Extremity: Normal Capillary Refill Integumentary: Normal Color, Dry, Warm Neurologic: project management instructor II-XII NML intact, Fully Oriented, Alert, Normal Mood/Affect, Normal Response, Motor Strength 5/5. Normal Finger to Nose and Heel to [place] Heart Score/ECG Review #1 ECG reviewed & interpreted by me at: 13:30 General ECG Interpretation: Sinus Rhythm, Normal Rate, Normal Intervals, No acute ischemic changes Compared to previous ECG there are: No significant change (03/06/17) ED Treatment Course - LABORATORY CBC & Chemistry Diagram: 10/02/17 13:30 10/02/17 13:30 Medical Decision Making - Medical Decision Making 10/02/17 13:04 The patient is an 81 year old female with a history of HTN, HLD, DM, CHF who presents for evaluation following a witnessed fall at home. Differential includes but is not limited to: ACS, Arrhythmia, UTI, Fracture, Contusion, infectious, metabolic derangement. Given the patient's history and physical exam, we will obtain plain films of the patient's hip, shoulder and chest to evaluate for any pathology. We will also obtain a head and neck CT to evaluate further in addition to a cbc, cmp, troponin, ua, and ekg. We will continue to monitor and reassess in the meantime. 10/02/17 15:33 CBC demonstrates an elevated wbc to 11.1. Cmp demonstrates a potassium of 5.4 and creatinine of 3.1. Given her lab results, it is likely the patient is in acute renal failure which could have contributed to her fall. Initial plain film imaging is negative for fracture of the hip, however the patient continues to complain of pain despite medicating and is unable to ambulate requiring further imaging and management. Head CT is negative as read by our radiologist. The patient will require admission for further management given her continue pain and inability to ambulate as well as acute renal failure with hyperkalemia. We discussed the case with Dr. Sunshine who accepted the patient for admission. *DC/Admit/Observation/Transfer Diagnosis at time of Disposition: Hyperkalemia Acute renal failure Qualifiers: Acute renal failure type: unspecified Qualified Code(s): N17.9 - Acute kidney failure, unspecified Fall Qualifiers: Encounter type: initial encounter Qualified Code(s): W19.XXXA - Unspecified fall, initial encounter - Discharge Dispostion Condition at time of disposition: Stable Admit: Yes - Referrals - Patient Instructions - Post Discharge Activity
--- NOTE | 2017-10-02 12:45 | PDOC ---
Attending Attestation - HPI HPI: 10/02/17 14:13 The patient is an 81 year old female with a significant PMH of CHF, HTN, hyperlipidemia, and diabetes who presents to the emergency department with right hip pain, right shoulder pain, and back pain s/p fall at home. The patients family reports the patient fell onto her right side and hit head head on the ground. The patient denies LOC but she is unable to recollect the specifics of her fall. She notes she has been unable to ambulate after her fall. She denies fevers or chills. She denies chest pain or shortness of breath. Allergies: NKA PCP: Dr. Jam Sunshine - Physicial Exam PE: 10/02/17 14:13 Vitals: Triage Vital signs reviewed General Appearance: no acute distress, well nourished well developed, Head: Atraumatic, normocephalic Cardiac: Regular rate and rhythm, no murmurs, no rubs, no gallops, Lungs: Clear to auscultation bilateral, good air movement bilaterally, Abdomen: Soft, nondistended, normal bowel sounds, nontender to palpation Extremities: (+) Right shoulder and right hip tenderness and pain to palpation. No cyanosis, clubbing, or edema Skin: Warm and dry, no rashes or lesions, no petechiae Neuro: AOX3; Cranial Nerves 2-12 grossly intact, Strength intact to all extremities, Sensation intact to all extremities Psych: normal mood, normal affect <Dony Reed - Last Filed: 10/02/17 15:16> - Resident Resident Name: Giovany Smith - ED Attending Attestation I have performed the following: I have examined & evaluated the patient, The case was reviewed & discussed with the resident, I agree w/resident's findings & plan, Exceptions are as noted - Medical Decision Making 10/02/17 15:45 81 years old past medical history significant for CHF hypertension hyperlipidemia diabetes who presents status post syncope versus fall at home with right shoulder right hip pain. No acute findings on x-rays. We'll order follow-up CT and admit to medicine for further evaluation of syncope and hip pain. <Fercho Smith - Last Filed: 10/02/17 15:51> Heart Score/ECG Review - ECG Impressions Comment:: 10/02/17 15:44 EKG performed at 1318 p.m. Sinus rhythm [address] elevations or T-wave inversions Interpreted by me. <Fercho Smith - Last Filed: 10/02/17 15:51>
[2017-10-02 13:37] LABS: BASO % 0.5 % (0-2.0); EOS % 4.4 % (0-4.5); HEMATOCRIT 31.4 % (32.4-45.2); HEMOGLOBIN 10.5 GM/dL (10.7-15.3); LYMPH % 12.4 % (8-40); MCHC 33.4 g/dl (32.0-36.0); MEAN CELL VOLUME 92.8 fl (80-96); MEAN PLT VOLUME 7.7 fl (7.5-11.1); MONO % 8.6 % (3.8-10.2); NEUT % 74.1 % (42.8-82.8); PLATELET COUNT 183 K/MM3 (134-434); RBC 3.38 M/mm3 (3.60-5.2); RDW 13.8 % (11.6-15.6); WHITE BLOOD COUNT 11.4 K/mm3 (4.0-10.0)
[2017-10-02] MEDS: morphine CARPU-JECT 4 MG/1 ML DISP.SYRIN IVPUSH ONE ×2 (13:38→15:35)
[2017-10-02 14:04] LABS: ALBUMIN 3.9 g/dl (3.4-5.0); ANION GAP 10 (8-16); BILIRUBIN,TOTAL 0.6 mg/dL (0.2-1.0); BLOOD UREA NITROGEN 68 mg/dL (7-18); CALCIUM 8.3 mg/dL (8.5-10.1); CHLORIDE 98 mmol/L (98-107); CO2 29 mmol/L (21-32); CREATININE 3.1 mg/dL (0.55-1.02); POTASSIUM 5.4 mmol/L (3.5-5.1); SGOT/AST 20 U/L (15-37); SGPT/ALT 20 U/L (12-78); SODIUM 137 mmol/L (136-145); TOT PROT 7.4 g/dl (6.4-8.2)
[2017-10-02 14:06] LABS: ALK PHOS 112 U/L (45-117)
[2017-10-02 14:08] LABS: GLUCOSE,RANDOM 301 mg/dL (74-106)
--- NOTE | 2017-10-02 14:13 | EKG ---
Test Reason : Blood Pressure : / mmHG Vent. Rate : 054 BPM Atrial Rate : 054 BPM P-R Int : 124 ms QRS Dur : 082 ms QT Int : 470 ms P-R-T Axes : 010 054 072 degrees QTc Int : 445 ms SINUS BRADYCARDIA WITH MARKED SINUS ARRHYTHMIA OTHERWISE NORMAL ECG WHEN COMPARED WITH ECG OF 03-FEB-2017 11:54, NO SIGNIFICANT CHANGE WAS FOUND Confirmed by YEYO SOLER MD ([id number]) on 10/02/2017 2:12:56 PM Referred By: Confirmed By:YEYO SOLER MD
[2017-10-02] MEDS ORDERED: morphine SULFATE 4 MG/ML VIAL ONE (15:26)
[2017-10-02] MEDS ORDERED: SODIUM POLYSTYRENE SULFONATE 15 GM/60 ML BOTTLE PO ONE ×2 (15:35→16:15)
[2017-10-02] MEDS ORDERED: SODIUM POLYSTYRENE SULFONATE 15 GM/60 ML BOTTLE ONE (16:40)
[2017-10-02] MEDS ORDERED: morphine SULFATE 4 MG/ML VIAL IVPUSH PRN (18:58)
--- NOTE | 2017-10-02 19:14 | HP ---
Admitting History and Physical - Primary Care Physician PCP: Jam Sunshine - Admission Chief Complaint: right hip pain History of Present Illness: Pt woke up this morning, around 3 AM to close one of the windows, fell (unclear cause; no CP, palpitations, dizziness) to the floor and developed right hip pain , couldn't walk. She came to ER were was found to have high clinical suspicion of right hip FX (CT scan was pending) and ARF with hyperkalemia. History Source: Patient, Significant Other (ER team) Limitations to Obtaining History: No Limitations - Past Medical History Cardiovascular: Yes: CAD (non-obstructive), CHF, HTN, Hyperlipdemia Gastrointestinal: Yes: GERD Renal/: Yes: Renal Inusuff Endocrine: Yes: Diabetes Mellitus (Insulin dependent), Hypothyroidism - Past Surgical History Past Surgical History: Yes: Hysterectomy (BRAXTON, BSO in 1981), Oopherectomy - Smoking History Smoking history: Never smoked Have you smoked in the past 12 months: No Aproximately how many cigarettes per day: 0 - Alcohol/Substance Use Hx Alcohol Use: No History of Substance Use: reports: None - Social History ADL: Independent History of Recent Travel: Yes (WENT TO [place] TWO YEARS AGO) Home Medications - Allergies Allergies/Adverse Reactions: Allergies Allergy/AdvReac Type Severity Reaction Status Date / Time No Known Allergies Allergy Verified 10/02/17 12:37 - Home Medications Home Medications: Ambulatory Orders Ranitidine HCl [Zantac] 150 mg PO BID #60 tablet 06/15/15 Aspirin Coated [Ecotrin -] 81 mg PO DAILY #30 tablet.ec 07/09/16 Carvedilol [Coreg -] 12.5 mg PO BID #180 tablet 07/09/16 Furosemide [Lasix -] 40 mg PO DAILY #30 tablet 07/09/16 Insulin Sliding Scale [Novolog Vial Sliding Scale -] 1 vial SQ ACHS #0 units Levothyroxine [Synthroid -] 50 mcg PO DAILY #90 tablet 07/09/16 Losartan Potassium 50 mg PO DAILY #0 07/09/16 Insulin (Levemir) [Levemir Vial] 12 units SQ HS 02/03/17 Isosorbide Mononitrate [Imdur -] 90 mg PO DAILY #90 tablet 02/04/17 Allopurinol [Zyloprim -] 100 mg PO DAILY 10/02/17 Atorvastatin Ca [Lipitor] 10 mg PO HS 10/02/17 Cinacalcet HCl [Sensipar] 30 mg PO DAILY 10/02/17 Gabapentin [Neurontin -] 300 mg PO HS 10/02/17 Glipizide [Glucotrol -] 5 mg PO TID 10/02/17 Spironolactone [Aldactone] 25 mg PO DAILY 10/02/17 hydrALAZINE HCL [Apresoline -] 50 mg PO TID 10/02/17 Family Disease History - Family Disease History Family Disease History: Diabetes: Brother, Sister, Other: Father (dies in his 50s ? etiology) Review of Systems - Review of Systems Constitutional: denies: Chills, Fever Eyes: denies: Blurred Vision, Recent Change in Vision HENT: denies: Ear Discharge, Ear Pain, Nasal Congestion, Throat Pain Neck: denies: Pain on Movement, Stiffness Cardiovascular: denies: Chest Pain, Palpitations Respiratory: denies: Cough, SOB Gastrointestinal: reports: Vomiting. denies: Abdominal Pain, Nausea Genitourinary: denies: Burning, Discharge Musculoskeletal: reports: Joint Pain (right hip). denies: Back Pain Integumentary: denies: Blister, Rash Neurological: denies: Change in Speech, Confusion, Numbness Endocrine: denies: Excessive Sweating, Intolerance to Cold Hematology/Lymphatic: denies: Easily Bruised, Excessive Bleeding Psychiatric: denies: Anxiety, Depression Physical Examination Vital Signs: Vital Signs Temperature 98.2 F 10/02/17 12:37 Pulse Rate 51 L 10/02/17 16:37 Respiratory Rate 18 10/02/17 12:37 Blood Pressure 139/54 10/02/17 16:37 O2 Sat by Pulse Oximetry (%) 96 10/02/17 16:37 Constitutional: Yes: No Distress, Calm Eyes: Yes: Conjunctiva Clear HENT: Yes: Normocephalic. No: Pharyngeal Erythema, Rhinnorhea Neck: Yes: Trachea Midline. No: Lymphadenopathy Cardiovascular: Yes: Regular Rate and Rhythm, S1, S2 Respiratory: Yes: Regular, CTA Bilaterally Gastrointestinal: Yes: Normal Bowel Sounds, Soft. No: Tenderness ...Rectal Exam: Yes: Deferred Renal/: No: CVA Tenderness - Left, CVA Tenderness - Right Breast(s): Yes: Other (deferred) Edema: Yes Edema: LLE: Trace, RLE: Trace Neurological: Yes: Alert, Oriented, Other (sensory and motor exam is symmetric in UE/ LE/ face except motor exam in right leg is 3-4/5 secondary to pain) Psychiatric: Yes: Alert, Oriented Labs: CBC, BMP 10/02/17 13:30 10/02/17 13:30 Imaging - Results Chest X-ray: Report Reviewed X-ray: Report Reviewed Cat Scan: Report Reviewed Problem List - Problems (1) Fracture of right inferior pubic ramus Code(s): S32.591A - OTH FRACTURE OF RIGHT PUBIS, INIT ENCNTR FOR CLOSED FRACTURE (2) Acute renal failure Code(s): N17.9 - ACUTE KIDNEY FAILURE, UNSPECIFIED Qualifiers: Acute renal failure type: unspecified Qualified Code(s): N17.9 - Acute kidney failure, unspecified (3) Fall Code(s): W19.XXXA - UNSPECIFIED FALL, INITIAL ENCOUNTER Qualifiers: Encounter type: initial encounter Qualified Code(s): W19.XXXA - Unspecified fall, initial encounter (4) Lung nodule Code(s): R91.1 - SOLITARY PULMONARY NODULE (5) CAD (coronary artery disease) Code(s): I25.10 - ATHSCL HEART DISEASE OF [place] CORONARY ARTERY W/O ANG PCTRS Qualifiers: Coronary Disease-Associated Artery/Lesion type: [place] artery [place] vs. transplanted heart: [place] heart Associated angina: with stable angina Qualified Code(s): I25.118 - Atherosclerotic heart disease of [place] coronary artery with other forms of angina pectoris (6) Diabetes mellitus Code(s): E11.9 - TYPE 2 DIABETES MELLITUS WITHOUT COMPLICATIONS Qualifiers: Diabetes mellitus type: other specified (including JAVAD) Diabetes mellitus termite inspector insulin use: without termite inspector use Diabetes mellitus complication status: without complication Qualified Code(s): E13.9 - Other specified diabetes mellitus without complications Assessment/Plan Hold Lasix, ARB. Mild hydration and monitor Pain control DVT prophylaxis Ortho consult Renal Consult Pulmonary consult for lung nodule AM labs.
[2017-10-02] MEDS ORDERED: SODIUM CHLORIDE 500 ML IV SCH (19:15)
[2017-10-02] MEDS ORDERED: glipiZIDE 5 MG TABLET (FP) PO SCH (22:00)
[2017-10-03] MEDS: HEPARIN NA (PORCINE) 5,000 UNITS/ML 1ML VIAL SQ SCH ×3 (00:08→21:09)
[2017-10-03] MEDS: hydrALAZINE HCL 25 MG TABLET (FP) PO SCH ×4 (00:09→21:09)
[2017-10-03] MEDS: INSULIN (LEVEMIR) 100 UNITS/ML UNITS SQ SCH ×2 (00:10→21:09)
[2017-10-03] MEDS: CARVEDILOL 12.5 MG TABLET (FP) PO SCH ×3 (00:10→21:09)
[2017-10-03] MEDS: GABAPENTIN 300 MG CAPSULE (FP) PO SCH ×2 (00:11→21:09)
[2017-10-03] MEDS: RANITIDINE HCL 150 MG TABLET (FP) PO SCH ×3 (00:11→21:09)
[2017-10-03] MEDS: ATORVASTATIN CA 10 MG TABLET (FP) PO SCH ×2 (00:11→21:08)
[2017-10-03 04:16] VITALS: BMI 27.9
[2017-10-03] MEDS: INSULIN SLIDING SCALE (NOVOLOG) 1 VIAL SQ SCH ×2 (06:41→17:13)
[2017-10-03] MEDS: glipiZIDE 5 MG TABLET (FP) PO SCH (06:42)
[2017-10-03] MEDS: LEVOTHYROXINE NA 50 MCG TABLET (FP) PO SCH (06:42)
[2017-10-03 08:06] LABS: HEMATOCRIT 30.8 % (32.4-45.2); HEMOGLOBIN 10.6 GM/dL (10.7-15.3); MCH 31.5 pg (25.7-33.7); MCHC 34.3 g/dl (32.0-36.0); MEAN CELL VOLUME 91.7 fl (80-96); MEAN PLT VOLUME 8.5 fl (7.5-11.1); PLATELET COUNT 178 K/MM3 (134-434); RBC 3.36 M/mm3 (3.60-5.2); RDW 13.5 % (11.6-15.6); WHITE BLOOD COUNT 7.9 K/mm3 (4.0-10.0)
[2017-10-03 08:37] LABS: CHLORIDE 102 mmol/L (98-107); POTASSIUM 4.4 mmol/L (3.5-5.1); SODIUM 140 mmol/L (136-145)
[2017-10-03 08:52] LABS: ALBUMIN 3.6 g/dl (3.4-5.0); ALK PHOS 98 U/L (45-117); ANION GAP 8 (8-16); BILIRUBIN,TOTAL 0.5 mg/dL (0.2-1.0); BLOOD UREA NITROGEN 63 mg/dL (7-18); CALCIUM 8.1 mg/dL (8.5-10.1); CO2 30 mmol/L (21-32); CREATININE 2.7 mg/dL (0.55-1.02); GLUCOSE,RANDOM 154 mg/dL (74-106); SGOT/AST 20 U/L (15-37); SGPT/ALT 17 U/L (12-78); TOT PROT 6.8 g/dl (6.4-8.2)
[2017-10-03 09:21] LABS: URINE APPEARANCE CLEAR; URINE BILIRUBIN NEGATIVE (<2.0 mg/dL); URINE COLOR YELLOW; URINE GLUCOSE (UA) NEGATIVE (NEGATIVE); URINE KETONE NEGATIVE (NEGATIVE); URINE LEUK ESTERASE 1+ (NEGATIVE); URINE NITRITE NEGATIVE (NEGATIVE); URINE PROTEIN NEGATIVE (NEGATIVE); URINE UROBILINOGEN NEGATIVE mg/dL (0.2-1.0)
[2017-10-03 09:23] LABS: EPI CELLS RARE /HPF (FEW); URINE BACTERIA RARE /hpf (NONE SEEN); URINE HYALINE CAST 1 /lpf; URINE MUCUS RARE
[2017-10-03] MEDS: ASPIRIN COATED 81 MG TABLET.EC PO SCH (10:03)
[2017-10-03] MEDS: ALLOPURINOL 100 MG TABLET (FP) PO SCH (10:04)
[2017-10-03] MEDS: ISOSORBIDE MONONITRATE 30 MG TAB.SR.24H (FP) PO SCH (10:04)
--- NOTE | 2017-10-03 11:46 | PN ---
Progress Note, Physician History of Present Illness: Pt w/o SOC, CP, palp, abd pain. Pt with right hip pain when trying to move the right leg. - Current Medication List Current Medications: Active Medications Allopurinol (Zyloprim -) 100 mg PO DAILY [facility] Last Admin: 10/03/17 10:04 Dose: 100 mg Aspirin (Ecotrin -) 81 mg PO DAILY [facility] Last Admin: 10/03/17 10:03 Dose: 81 mg Atorvastatin Calcium (Lipitor -) 10 mg PO HS [facility] Last Admin: 10/03/17 00:11 Dose: 10 mg Carvedilol (Coreg -) 12.5 mg PO BID [facility] Last Admin: 10/03/17 10:03 Dose: 12.5 mg Cinacalcet (Sensipar -) 30 mg PO DAILY [facility] Gabapentin (Neurontin -) 300 mg PO HS [facility] Last Admin: 10/03/17 00:11 Dose: 300 mg Glipizide (Glucotrol -) 5 mg PO ACBK [facility] Last Admin: 10/03/17 06:42 Dose: 5 mg Heparin Sodium (Porcine) (Heparin -) 5,000 unit SQ BID [facility] Last Admin: 10/03/17 10:03 Dose: 5,000 unit Hydralazine HCl (Apresoline -) 50 mg PO TID [facility] Last Admin: 10/03/17 06:42 Dose: 50 mg Insulin Aspart (Novolog Vial Sliding Scale -) 1 vial SQ BIDAC [facility] PRN Reason: Protocol Last Admin: 10/03/17 06:41 Dose: 2 unit Insulin Detemir (Levemir Vial) 12 units SQ HS [facility] Last Admin: 10/03/17 00:10 Dose: 12 unit Isosorbide Mononitrate (Imdur -) 90 mg PO DAILY [facility] Last Admin: 10/03/17 10:04 Dose: 90 mg Levothyroxine Sodium (Synthroid -) 50 mcg PO 0700 [facility] Last Admin: 10/03/17 06:42 Dose: 50 mcg Morphine Sulfate (Morphine Sulfate) 2 mg IVPUSH Q4H PRN PRN Reason: PAIN LEVEL 4 - 6 Ranitidine HCl (Zantac -) 150 mg PO BID [facility] Last Admin: 10/03/17 10:04 Dose: 150 mg - Objective Vital Signs: Vital Signs Temperature 98.5 F 10/03/17 06:34 Pulse Rate 59 L 10/03/17 06:34 Respiratory Rate 20 10/03/17 06:34 Blood Pressure 149/58 10/03/17 06:34 O2 Sat by Pulse Oximetry (%) 96 10/03/17 04:16 Constitutional: Yes: No Distress, Calm Cardiovascular: Yes: Regular Rate and Rhythm, Murmur (1/6 SM), S1, S2 Respiratory: Yes: Regular, CTA Bilaterally Gastrointestinal: Yes: Normal Bowel Sounds, Soft. No: Tenderness Edema: No Neurological: Yes: Alert, Oriented Labs: CBC, BMP 10/03/17 06:40 10/03/17 06:40 Problem List - Problems (1) Fracture of right inferior pubic ramus Code(s): S32.591A - OTH FRACTURE OF RIGHT PUBIS, INIT ENCNTR FOR CLOSED FRACTURE (2) Acute renal failure Code(s): N17.9 - ACUTE KIDNEY FAILURE, UNSPECIFIED Qualifiers: Acute renal failure type: unspecified Qualified Code(s): N17.9 - Acute kidney failure, unspecified (3) Fall Code(s): W19.XXXA - UNSPECIFIED FALL, INITIAL ENCOUNTER Qualifiers: Encounter type: initial encounter Qualified Code(s): W19.XXXA - Unspecified fall, initial encounter (4) Lung nodule Code(s): R91.1 - SOLITARY PULMONARY NODULE (5) CAD (coronary artery disease) Code(s): I25.10 - ATHSCL HEART DISEASE OF [place] CORONARY ARTERY W/O ANG PCTRS Qualifiers: Coronary Disease-Associated Artery/Lesion type: [place] artery [place] vs. transplanted heart: [place] heart Associated angina: with stable angina Qualified Code(s): I25.118 - Atherosclerotic heart disease of [place] coronary artery with other forms of angina pectoris (6) Diabetes mellitus Code(s): E11.9 - TYPE 2 DIABETES MELLITUS WITHOUT COMPLICATIONS Qualifiers: Diabetes mellitus type: other specified (including JAVAD) Diabetes mellitus assisted insulin use: without assisted use Diabetes mellitus complication status: without complication Qualified Code(s): E13.9 - Other specified diabetes mellitus without complications Assessment/Plan Hold Lasix, ARB. Mild hydration and monitor renal function, sighs and symptoms of fluid overload. Pain control DVT prophylaxis Ortho consult Renal Consult Pulmonary consult for lung nodule Case was d/w pt's nurse; pt is NWB untill cleared by Ortho AM labs.
--- NOTE | 2017-10-03 14:35 | CONSULT ---
Consult - text type - Consultation Consultation Note: Renal Consult for ANDRÉS on CKD This is a 82 year old woman with PMhx of CKD Stage 4 (Cr in mid 2's last admission, in high 1s in December), Hypertension, CHF, DM presented s/p fall at home with fracture of pubic rami and ANDRÉS. Pt reports waking up at night to check her blood sugar and falling to her right side. Denies any LOC but cannot recall the events of the fall exactly. Reports also having decreased oral intake for several weeks with poor appetite and loss of taste. No N/V/D. No CP or sob. No Abd pain. Making urine. Has some lower abd pain now. No fever, chills. PMhx: as above Allergies: NKDA Family Hx: NC Social Hx: No T/A/D ROS: as per HPI Home Medications Medication Instructions Recorded Ranitidine HCl [Zantac] 150 mg PO BID #60 tablet 06/15/15 Aspirin Coated [Ecotrin -] 81 mg PO DAILY #30 tablet.ec 07/09/16 Carvedilol [Coreg -] 12.5 mg PO BID #180 tablet 07/09/16 Furosemide [Lasix -] 40 mg PO DAILY #30 tablet 07/09/16 Insulin Sliding Scale [Novolog 1 vial SQ ACHS #0 units 07/09/16 Vial Sliding Scale -] Levothyroxine [Synthroid -] 50 mcg PO DAILY #90 tablet 07/09/16 Losartan Potassium 50 mg PO DAILY #0 07/09/16 Insulin (Levemir) [Levemir Vial] 12 units SQ HS 02/03/17 Isosorbide Mononitrate [Imdur -] 90 mg PO DAILY #90 tablet 02/04/17 Allopurinol [Zyloprim -] 100 mg PO DAILY 10/02/17 Atorvastatin Ca [Lipitor] 10 mg PO HS 10/02/17 Cinacalcet HCl [Sensipar] 30 mg PO DAILY 10/02/17 Gabapentin [Neurontin -] 300 mg PO HS 10/02/17 Glipizide [Glucotrol -] 5 mg PO TID 10/02/17 Spironolactone [Aldactone] 25 mg PO DAILY 10/02/17 hydrALAZINE HCL [Apresoline -] 50 mg PO TID 10/02/17 Vital Signs Temperature 98.2 F 10/03/17 10:00 Pulse Rate 60 10/03/17 10:00 Respiratory Rate 18 10/03/17 10:00 Blood Pressure 156/64 10/03/17 10:00 O2 Sat by Pulse Oximetry (%) 96 10/03/17 09:00 Intake & Output 09/30/17 10/01/17 10/02/17 10/03/17 23:59 23:59 23:59 23:59 Intake Total 600 300 Output Total 200 Balance 600 100 Weight 73.482 kg 73.936 kg NAD awake and alert RRR, no M/R CTA no rales or wheeze soft, obese, NT/ND No LE edema, clubbing or cyanosis CBC, BMP 10/03/17 06:40 10/03/17 06:40 Current Medications Allopurinol (Zyloprim -) 100 mg PO DAILY [facility] Last Admin: 10/03/17 10:04 Dose: 100 mg Aspirin (Ecotrin -) 81 mg PO DAILY [facility] Last Admin: 10/03/17 10:03 Dose: 81 mg Atorvastatin Calcium (Lipitor -) 10 mg PO HS [facility] Last Admin: 10/03/17 00:11 Dose: 10 mg Carvedilol (Coreg -) 12.5 mg PO BID [facility] Last Admin: 10/03/17 10:03 Dose: 12.5 mg Cinacalcet (Sensipar -) 30 mg PO DAILY [facility] Gabapentin (Neurontin -) 300 mg PO HS [facility] Last Admin: 10/03/17 00:11 Dose: 300 mg Glipizide (Glucotrol -) 5 mg PO ACBK [facility] Last Admin: 10/03/17 06:42 Dose: 5 mg Heparin Sodium (Porcine) (Heparin -) 5,000 unit SQ BID [facility] Last Admin: 10/03/17 10:03 Dose: 5,000 unit Hydralazine HCl (Apresoline -) 50 mg PO TID [facility] Last Admin: 10/03/17 06:42 Dose: 50 mg Insulin Aspart ([facility] Sliding [facility] -) [facility]: Protocol Last Admin: 10/03/17 06:41 Dose: 2 unit Insulin Detemir (Levemir Vial) 12 units SQ [facility] Last Admin: 10/03/17 00:10 Dose: 12 unit Isosorbide Mononitrate (Imdur -) 90 mg PO DAILY [facility] Last Admin: 10/03/17 10:04 Dose: 90 mg Levothyroxine Sodium (Synthroid -) 50 mcg PO 0700 [facility] Last Admin: 10/03/17 06:42 Dose: 50 mcg Morphine Sulfate (Morphine Sulfate) 2 mg IVPUSH Q4H PRN PRN Reason: PAIN LEVEL 4 - 6 Ranitidine HCl (Zantac -) 150 mg PO BID [facility] Last Admin: 10/03/17 10:04 Dose: 150 mg 82 year old woman with PMhx of CKD Stage 4 (Cr in mid 2's last admission, in high 1s in December), Hypertension, CHF, DM presented s/p fall at home with fracture of pelvis and ANDRÉS. 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
--- NOTE | 2017-10-03 14:37 | CON.ORTH ---
Consult Reason for Consultation:: pelvic fx - Past Medical History Cardio/Vascular: Yes: CAD (non-obstructive), CHF, HTN, Hyperlipdemia Gastrointestinal: Yes: GERD Renal/: Yes: Renal Inusuff Endocrine: Yes: Diabetes Mellitus (Insulin dependent), Hypothyroidism - Past Surgical History Past Surgical History: Yes: Hysterectomy (BRAXTON, BSO in 1981), Oopherectomy - Alcohol/Substance Use Hx Alcohol Use: No History of Substance Use: reports: None - Smoking History Smoking history: Never smoked Have you smoked in the past 12 months: No Aproximately how many cigarettes per day: 0 - Social History Usual Living Arrangement: With Spouse ADL: Independent History of Recent Travel: Yes (WENT TO [facility] TWO YEARS AGO) Home Medications - Allergies Allergies/Adverse Reactions: Allergies Allergy/AdvReac Type Severity Reaction Status Date / Time No Known Allergies Allergy Verified 10/02/17 12:37 - Home Medications Home Medications: Ambulatory Orders Ranitidine HCl [Zantac] 150 mg PO BID #60 tablet 06/15/15 Aspirin Coated [Ecotrin -] 81 mg PO DAILY #30 tablet.ec 07/09/16 Carvedilol [Coreg -] 12.5 mg PO BID #180 tablet 07/09/16 Furosemide [Lasix -] 40 mg PO DAILY #30 tablet 07/09/16 Insulin Sliding Scale [Novolog Vial Sliding Scale -] 1 vial SQ ACHS #0 units Levothyroxine [Synthroid -] 50 mcg PO DAILY #90 tablet 07/09/16 Losartan Potassium 50 mg PO DAILY #0 07/09/16 Insulin (Levemir) [Levemir Vial] 12 units SQ HS 02/03/17 Isosorbide Mononitrate [Imdur -] 90 mg PO DAILY #90 tablet 02/04/17 Allopurinol [Zyloprim -] 100 mg PO DAILY 10/02/17 Atorvastatin Ca [Lipitor] 10 mg PO HS 10/02/17 Cinacalcet HCl [Sensipar] 30 mg PO DAILY 10/02/17 Gabapentin [Neurontin -] 300 mg PO HS 10/02/17 Glipizide [Glucotrol -] 5 mg PO TID 10/02/17 Spironolactone [Aldactone] 25 mg PO DAILY 10/02/17 hydrALAZINE HCL [Apresoline -] 50 mg PO TID 10/02/17 Family Disease History - Family Disease History Family Disease History: Diabetes: Brother, Sister, Other: Father (dies in his 50s ? etiology) Physical Exam for Ortho Vital Signs: Vital Signs Temperature 98.2 F 10/03/17 10:00 Pulse Rate 60 10/03/17 10:00 Respiratory Rate 18 10/03/17 10:00 Blood Pressure 156/64 10/03/17 10:00 O2 Sat by Pulse Oximetry (%) 96 10/03/17 09:00 Labs: CBC, BMP 10/03/17 06:40 10/03/17 06:40 - Lower Extremity Pelvis: Yes: Right, Limited ROM, Pain, Swelling, Other (equal limb lengths, nvi) Imaging - Results X-ray: Report Reviewed, Image Reviewed Cat Scan: Report Reviewed, Image Reviewed Assessment/Plan 81 year old female with a history of HTN, HLD, DM, CHF who presents for evaluation following a witnessed fall at home. The patient experienced a witnessed fall at home falling onto her right sided with head trauma without LOC earlier this morning. The patient states that she does not know why or how she fell, but has been unable to ambulate due to pain since the incident. a/p- right inf pubix rami fx PT eval wbat pain control dvt ppx d/c planning d/w Dr. Kline
[2017-10-03] MEDS: CINACALCET HCL 30 MG TAB (FP) PO SCH (16:55)
[2017-10-03] MEDS: SODIUM CHLORIDE 1,000 ML IV SCH ×2 (16:57→22:10)
[2017-10-03] MEDS ORDERED: INSULIN (NOVOLOG) ASPART 100 UNITS/ML 10ML VIAL ONE (17:12)
[2017-10-04] MEDS: glipiZIDE 5 MG TABLET (FP) PO SCH (06:31)
[2017-10-04] MEDS: hydrALAZINE HCL 25 MG TABLET (FP) PO SCH ×3 (06:31→22:19)
[2017-10-04] MEDS: LEVOTHYROXINE NA 50 MCG TABLET (FP) PO SCH (06:31)
[2017-10-04] MEDS: INSULIN SLIDING SCALE (NOVOLOG) 1 VIAL SQ SCH ×2 (06:32→17:02)
[2017-10-04 08:23] LABS: CHLORIDE 108 mmol/L (98-107); POTASSIUM 4.1 mmol/L (3.5-5.1); SODIUM 142 mmol/L (136-145)
[2017-10-04 08:29] LABS: ANION GAP 7 (8-16); BLOOD UREA NITROGEN 51 mg/dL (7-18); CALCIUM 7.8 mg/dL (8.5-10.1); CO2 27 mmol/L (21-32); CREATININE 2.3 mg/dL (0.55-1.02); GLUCOSE,RANDOM 117 mg/dL (74-106)
--- NOTE | 2017-10-04 11:07 | PN ---
Progress Note (short form) - Note Progress Note: Ortho Pt seen and examined decr pain, incr rom, able to ambulate nvi a/p PT pain control dvt ppx d/c planning d/w Dr. Kline
[2017-10-04] MEDS: ALLOPURINOL 100 MG TABLET (FP) PO SCH (11:37)
[2017-10-04] MEDS: RANITIDINE HCL 150 MG TABLET (FP) PO SCH ×2 (11:37→22:19)
[2017-10-04] MEDS: ISOSORBIDE MONONITRATE 30 MG TAB.SR.24H (FP) PO SCH (11:37)
[2017-10-04] MEDS: ASPIRIN COATED 81 MG TABLET.EC PO SCH (11:37)
[2017-10-04] MEDS: HEPARIN NA (PORCINE) 5,000 UNITS/ML 1ML VIAL SQ SCH ×2 (11:38→22:23)
[2017-10-04] MEDS ORDERED: PT OWN MED DRAWER 7, Y5N ONE ×2 (11:41→12:10)
[2017-10-04] MEDS: CARVEDILOL 12.5 MG TABLET (FP) PO SCH ×2 (11:41→22:19)
[2017-10-04] MEDS: CINACALCET HCL 30 MG TAB (FP) PO SCH (12:11)
--- NOTE | 2017-10-04 13:23 | PN ---
Progress Note, Physician History of Present Illness: Pt w/o SOC, CP, palp, abd pain. Pt with right hip pain when trying to move the right leg. - Current Medication List Current Medications: Active Medications Allopurinol (Zyloprim -) 100 mg PO DAILY [facility] Last Admin: 10/04/17 11:37 Dose: 100 mg Aspirin (Ecotrin -) 81 mg PO DAILY [facility] Last Admin: 10/04/17 11:37 Dose: 81 mg Atorvastatin Calcium (Lipitor -) 10 mg PO [facility] Last Admin: 10/03/17 21:08 Dose: 10 mg Carvedilol (Coreg -) 12.5 mg PO BID [facility] Last Admin: 10/04/17 11:41 Dose: 12.5 mg Cinacalcet (Sensipar -) 30 mg PO DAILY [facility] Last Admin: 10/04/17 12:11 Dose: 30 mg Gabapentin (Neurontin -) 300 mg PO [facility] Last Admin: 10/03/17 21:09 Dose: 300 mg Glipizide (Glucotrol -) 5 mg PO ACBK [facility] Last Admin: 10/04/17 06:31 Dose: 5 mg Heparin Sodium (Porcine) (Heparin -) 5,000 unit SQ BID [facility] Last Admin: 10/04/17 11:38 Dose: 5,000 unit Hydralazine HCl (Apresoline -) 50 mg PO TID [facility] Last Admin: 10/04/17 06:31 Dose: 50 mg Insulin Aspart (Novolog Vial Sliding Scale -) 1 vial SQ BIDAC [facility] PRN Reason: Protocol Last Admin: 10/04/17 06:32 Dose: Not Given Insulin Detemir (Levemir Vial) 12 units SQ [facility] Last Admin: 10/03/17 21:09 Dose: 12 unit Isosorbide Mononitrate (Imdur -) 90 mg PO DAILY [facility] Last Admin: 10/04/17 11:37 Dose: 90 mg Levothyroxine Sodium (Synthroid -) 50 mcg PO 0700 [facility] Last Admin: 10/04/17 06:31 Dose: 50 mcg Morphine Sulfate (Morphine Sulfate) 2 mg IVPUSH Q4H PRN PRN Reason: PAIN LEVEL 4 - 6 Last Admin: 10/03/17 16:53 Dose: 2 mg Ranitidine HCl (Zantac -) 150 mg PO BID [facility] Last Admin: 10/04/17 11:37 Dose: 150 mg - Objective Vital Signs: Vital Signs Temperature 98.5 F 10/04/17 06:21 Pulse Rate 68 10/04/17 06:21 Respiratory Rate 18 10/04/17 06:21 Blood Pressure 142/53 10/04/17 06:21 O2 Sat by Pulse Oximetry (%) 96 10/03/17 21:00 Constitutional: Yes: No Distress, Calm Cardiovascular: Yes: Regular Rate and Rhythm, S1, S2 Respiratory: Yes: Regular, CTA Bilaterally, Other (coarse BS) Gastrointestinal: Yes: Normal Bowel Sounds, Soft. No: Tenderness Edema: No Neurological: Yes: Alert, Oriented Labs: CBC, BMP 10/03/17 06:40 10/04/17 06:30 Problem List - Problems (1) Fracture of right inferior pubic ramus Code(s): S32.591A - OTH FRACTURE OF RIGHT PUBIS, INIT ENCNTR FOR CLOSED FRACTURE (2) Acute renal failure Code(s): N17.9 - ACUTE KIDNEY FAILURE, UNSPECIFIED Qualifiers: Acute renal failure type: unspecified Qualified Code(s): N17.9 - Acute kidney failure, unspecified (3) Fall Code(s): W19.XXXA - UNSPECIFIED FALL, INITIAL ENCOUNTER Qualifiers: Encounter type: initial encounter Qualified Code(s): W19.XXXA - Unspecified fall, initial encounter (4) Lung nodule Code(s): R91.1 - SOLITARY PULMONARY NODULE (5) CAD (coronary artery disease) Code(s): I25.10 - ATHSCL HEART DISEASE OF [place] CORONARY ARTERY W/O ANG PCTRS Qualifiers: Coronary Disease-Associated Artery/Lesion type: [place] artery [place] vs. transplanted heart: [place] heart Associated angina: with stable angina Qualified Code(s): I25.118 - Atherosclerotic heart disease of [place] coronary artery with other forms of angina pectoris (6) Diabetes mellitus Code(s): E11.9 - TYPE 2 DIABETES MELLITUS WITHOUT COMPLICATIONS Qualifiers: Diabetes mellitus type: other specified (including JAVAD) Diabetes mellitus correction insulin use: without ocean transportation intermediary use Diabetes mellitus complication status: without complication Qualified Code(s): E13.9 - Other specified diabetes mellitus without complications Assessment/Plan Hold Lasix, ARB. Mild hydration and monitor renal function, sighs and symptoms of fluid overload. Pain control DVT prophylaxis Ortho and Renal consults and f/u appreciated Pulmonary consult for lung nodule Case was d/w pt's nurse; pt started PT; pt to go to [place]. AM labs.
[2017-10-04] MEDS ORDERED: SODIUM CHLORIDE 1,000 ML IV SCH (19:30)
--- NOTE | 2017-10-04 19:30 | PN ---
Progress Note (short form) - Note Progress Note: Renal follow up for ANDRÉS on CKD Pt seen and examined at the bedside awake and alert no acute complaints denies any sob, chest pain no pain in groin today making urine on IVF Vital Signs Temperature 99.1 F 10/04/17 16:55 Pulse Rate 69 10/04/17 16:55 Respiratory Rate 20 10/04/17 16:55 Blood Pressure 148/74 10/04/17 16:55 O2 Sat by Pulse Oximetry (%) 96 10/03/17 21:00 Intake & Output 10/01/17 10/02/17 10/03/17 10/04/17 23:59 23:59 23:59 23:59 Intake Total 600 2040 1525 Output Total 600 Balance 600 1440 1525 Weight 73.482 kg 73.936 kg 76.657 kg NAD RRR, no M/R CTA no rales or wheeze soft, obese, NT/ND No LE edema, clubbing or cyanosis CBC, BMP 10/03/17 06:40 10/04/17 06:30 Current Medications Allopurinol (Zyloprim -) 100 mg PO DAILY [facility] Last Admin: 10/04/17 11:37 Dose: 100 mg Aspirin (Ecotrin -) 81 mg PO DAILY [facility] Last Admin: 10/04/17 11:37 Dose: 81 mg Atorvastatin Calcium (Lipitor -) 10 mg PO HS [facility] Last Admin: 10/03/17 21:08 Dose: 10 mg Carvedilol (Coreg -) 12.5 mg PO BID [facility] Last Admin: 10/04/17 11:41 Dose: 12.5 mg Cinacalcet (Sensipar -) 30 mg PO DAILY [facility] Last Admin: 10/04/17 12:11 Dose: 30 mg Gabapentin (Neurontin -) 300 mg PO HS [facility] Last Admin: 10/03/17 21:09 Dose: 300 mg Glipizide (Glucotrol -) 5 mg PO ACBK [facility] Last Admin: 10/04/17 06:31 Dose: 5 mg Heparin Sodium (Porcine) (Heparin -) 5,000 unit SQ BID [facility] Last Admin: 10/04/17 11:38 Dose: 5,000 unit Hydralazine HCl (Apresoline -) 50 mg PO TID [facility] Last Admin: 10/04/17 14:19 Dose: 50 mg Sodium Chloride (Normal Saline -) 1,000 mls @ 75 mls/hr IV ASDIR [facility] Stop: 10/05/17 01:29 Insulin Aspart (Novolog Vial Sliding Scale -) 1 vial SQ BIDAC [facility] PRN Reason: Protocol Last Admin: 10/04/17 17:02 Dose: Not Given Insulin Detemir (Levemir Vial) 12 units SQ HS [facility] Last Admin: 10/03/17 21:09 Dose: 12 unit Isosorbide Mononitrate (Imdur -) 90 mg PO DAILY [facility] Last Admin: 10/04/17 11:37 Dose: 90 mg Levothyroxine Sodium (Synthroid -) 50 mcg PO 0700 [facility] Last Admin: 10/04/17 06:31 Dose: 50 mcg Morphine Sulfate (Morphine Sulfate) 2 mg IVPUSH Q4H PRN PRN Reason: PAIN LEVEL 4 - 6 Last Admin: 10/03/17 16:53 Dose: 2 mg Ranitidine HCl (Zantac -) 150 mg PO BID [facility] Last Admin: 10/04/17 11:37 Dose: 150 mg 82 year old woman with PMhx of CKD Stage 4 (Cr in mid 2's last admission, in high 1s in December), Hypertension, CHF, DM presented s/p fall at home with fracture of pelvis and ANDRÉS. #ANDRÉS on non proteinuric CKD secondary to hypovolemia in setting of diuretics/ ARB and decreased oral intake #Pelvic Fracture #Hx of CHF #Chronic Anemia #Hypertension #DM Type 2 #Secondary Hyperparathyroidism on Senispar Renal function slightly improved continue istonic saline through this evening Trend renal function and electrolytes no signs of volume overload at this time continue supportive care for pubis fracture Thank you Will follow Wm Tian DO
[2017-10-04] MEDS: ATORVASTATIN CA 10 MG TABLET (FP) PO SCH (22:19)
[2017-10-04] MEDS: GABAPENTIN 300 MG CAPSULE (FP) PO SCH (22:19)
[2017-10-04] MEDS: INSULIN (LEVEMIR) 100 UNITS/ML UNITS SQ SCH (22:20)
[2017-10-04] MEDS ORDERED: SENNOSIDES 8.6MG TABLET (FP) PO ONE (23:00)
[2017-10-04] MEDS: DOCUSATE SODIUM 100 MG CAPSULE (FP) PO SCH (23:12)
[2017-10-05] MEDS: hydrALAZINE HCL 25 MG TABLET (FP) PO SCH ×2 (05:49→15:14)
[2017-10-05] MEDS: glipiZIDE 5 MG TABLET (FP) PO SCH (06:40)
[2017-10-05] MEDS: LEVOTHYROXINE NA 50 MCG TABLET (FP) PO SCH (06:40)
[2017-10-05] MEDS: INSULIN SLIDING SCALE (NOVOLOG) 1 VIAL SQ SCH ×2 (06:40→17:47)
--- NOTE | 2017-10-05 09:47 | DS ---
Physical Examination Vital Signs: Vital Signs Temperature 97.7 F 10/05/17 06:01 Pulse Rate 71 10/05/17 06:01 Respiratory Rate 20 10/05/17 06:01 Blood Pressure 125/56 10/05/17 06:01 O2 Sat by Pulse Oximetry (%) 96 10/04/17 21:00 Findings/Remarks: Pt w/o SOB, CP, palp, abd pain Constitutional: Yes: No Distress, Calm Cardiovascular: Yes: Regular Rate and Rhythm, S1, S2 Respiratory: Yes: Regular, CTA Bilaterally. No: Rales Gastrointestinal: Yes: Normal Bowel Sounds, Soft. No: Tenderness Edema: No Neurological: Yes: Alert, Oriented Labs: CBC, BMP 10/03/17 06:40 10/04/17 06:30 Discharge Summary Reason For Visit: ACUTE RENAL FAILURE; FALL; HYPERKLEMIA Current Active Problems Acute renal failure (Acute) Fall (Acute) Fracture of right inferior pubic ramus (Acute) Hyperkalemia (Acute) Lung nodule (Acute) Procedures: Principal: Head CT scan. Pelvic CT scan. Chest CT scan. Cerviacl Spine CT scan Other Procedures: Hip/Pelvis XR Hospital Course: Pt fell at home, developed right hip pain and came to ER. In ER she was found to have right inferior pubic ramus fracture; she was seen by Ortho and recommended PT. Pt was noticed to be in ARF, started on IVF with improvement in renal function; pt was seen by Renal ( Dr. Patel). Pt was noticed to have 5 mm nodule on Cervical spine CT scan, was seen by Pulmonary (Dr. Scott); chest CT scan was ordered; pt to f/u with pulmonary. Condition: Fair - Instructions Diet, Activity, Other Instructions: diet: ADA, Low salt, low cholesterol. Lasix, Spironilactone, Losartan on Hold. BMP in AM Referrals: rAnaldo Scott MD, MD [Staff Physician] - (in 1-2 weeks after [facility] DC) Jam Sunshine MD [Staff Physician] - (in 1-2 weeks after rehab DC) Disposition: [facility] - Home Medications Comprehensive Discharge Medication List: Ambulatory Orders
--- NOTE | 2017-10-05 10:06 | CON.PULM ---
Consult Consult Specialty:: PULMONARY Referred by:: Dr. Sunshine Reason for Consultation:: lung nodule - History of Present Illness Chief Complaint: fall History of Present Illness: 82yo female with h/o HTN, hyperlipidemia, nonobstructive CAD, CHF, CKD, GERD who was admitted s/p fall and right hip pain. Found to have a pelvic fracture on imaging. Also found to have an incidental right apical lung nodule. She denies any shortness of breath, cough or chest pain. No fevers, chills or night sweats. Denies unintentional weight loss. She is a never smoker, no family history of malignancies. 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 No pets. - History Source History Provided By: Patient, Medical Record Limitations to Obtaining History: No Limitations - Past Medical History Cardio/Vascular: Yes: CAD (non-obstructive), CHF, HTN, Hyperlipdemia Gastrointestinal: Yes: GERD Renal/: Yes: Renal Inusuff Endocrine: Yes: Diabetes Mellitus (Insulin dependent), Hypothyroidism - Past Surgical History Past Surgical History: Yes: Hysterectomy ([place], BSO in 1981), Oopherectomy - Alcohol/Substance Use Hx Alcohol Use: No History of Substance Use: reports: None - Smoking History Smoking history: Never smoked Have you smoked in the past 12 months: No Aproximately how many cigarettes per day: 0 - Social History Usual Living Arrangement: With Spouse ADL: Independent History of Recent Travel: Yes ([facility]) Home Medications - Allergies Allergies/Adverse Reactions: Allergies Allergy/AdvReac Type Severity Reaction Status Date / Time No Known Allergies Allergy Verified 10/02/17 12:37 - Home Medications Home Medications: Ambulatory Orders Ranitidine HCl [Zantac] 150 mg PO BID #60 tablet 06/15/15 Aspirin Coated [Ecotrin -] 81 mg PO DAILY #30 tablet.ec 07/09/16 Carvedilol [Coreg -] 12.5 mg PO BID #180 tablet 07/09/16 Furosemide [Lasix -] 40 mg PO DAILY #30 tablet 07/09/16 Insulin Sliding Scale [Novolog Vial Sliding Scale -] 1 vial SQ ACHS #0 units Levothyroxine [Synthroid -] 50 mcg PO DAILY #90 tablet 07/09/16 Losartan Potassium 50 mg PO DAILY #0 07/09/16 Insulin (Levemir) [Levemir Vial] 12 units SQ HS 02/03/17 Isosorbide Mononitrate [Imdur -] 90 mg PO DAILY #90 tablet 02/04/17 Allopurinol [Zyloprim -] 100 mg PO DAILY 10/02/17 Atorvastatin Ca [Lipitor] 10 mg PO HS 10/02/17 Cinacalcet HCl [Sensipar] 30 mg PO DAILY 10/02/17 Gabapentin [Neurontin -] 300 mg PO HS 10/02/17 Glipizide [Glucotrol -] 5 mg PO TID 10/02/17 Spironolactone [Aldactone] 25 mg PO DAILY 10/02/17 hydrALAZINE HCL [Apresoline -] 50 mg PO TID 10/02/17 Family Disease History - Family Disease History Family Disease History: Diabetes: Brother, Sister, Other: Father (dies in his 50s ? etiology) Review of Systems - Review of Systems Constitutional: denies: Chills, Fever, Night Sweats, Unintentional Wgt. Loss Eyes: denies: Recent Change in Vision HENT: denies: Nasal Congestion, Throat Pain Neck: denies: Stiffness, Tenderness Cardiovascular: denies: Chest Pain, Palpitations, Shortness of Breath Respiratory: denies: Cough, Hemoptysis, SOB, SOB on Exertion Gastrointestinal: denies: Abdominal Pain, Nausea, Vomiting Genitourinary: denies: Dysuria, Hematuria Neurological: denies: Dizziness, Headache Physical Exam Vital Sings: Vital Signs Temperature 97.7 F 10/05/17 06:01 Pulse Rate 71 10/05/17 06:01 Respiratory Rate 20 10/05/17 06:01 Blood Pressure 125/56 10/05/17 06:01 O2 Sat by Pulse Oximetry (%) 96 10/04/17 21:00 Constitutional: Yes: Calm Eyes: Yes: Conjunctiva Clear, EOM Intact HENT: Yes: Atraumatic, Normocephalic Neck: Yes: Supple, Trachea Midline Cardiovascular: Yes: Regular Rate and Rhythm Respiratory: Yes: Regular, CTA Bilaterally ...Clubbing: No Gastrointestinal: Yes: Normal Bowel Sounds, Soft. No: Tenderness Edema: No Neurological: Yes: Alert, Oriented Labs: CBC, BMP 10/03/17 06:40 10/04/17 06:30 Imaging - Results Cat Scan: Report Reviewed, Image Reviewed Problem List - Problems (1) Fracture of right inferior pubic ramus Code(s): S32.591A - OTH FRACTURE OF RIGHT PUBIS, INIT ENCNTR FOR CLOSED FRACTURE (2) Lung nodule Code(s): R91.1 - SOLITARY PULMONARY NODULE (3) CAD (coronary artery disease) Code(s): I25.10 - ATHSCL HEART DISEASE OF [place] CORONARY ARTERY W/O ANG PCTRS Qualifiers: Coronary Disease-Associated Artery/Lesion type: [place] artery [place] vs. transplanted heart: [place] heart Associated angina: with stable angina Qualified Code(s): I25.118 - Atherosclerotic heart disease of [place] coronary artery with other forms of angina pectoris (4) CKD (chronic kidney disease) stage 3, GFR 30-59 ml/min Code(s): N18.3 - CHRONIC KIDNEY DISEASE, STAGE 3 (MODERATE) (5) Diabetes mellitus Code(s): E11.9 - TYPE 2 DIABETES MELLITUS WITHOUT COMPLICATIONS Qualifiers: Diabetes mellitus type: other specified (including JAVAD) Diabetes mellitus care home insulin use: without rn long term care use Diabetes mellitus complication status: without complication Qualified Code(s): E13.9 - Other specified diabetes mellitus without complications (6) Hyperlipidemia Code(s): E78.5 - HYPERLIPIDEMIA, UNSPECIFIED Qualifiers: Hyperlipidemia type: pure hypercholesterolemia (7) Hypertension Code(s): I10 - ESSENTIAL (PRIMARY) HYPERTENSION Qualifiers: Hypertension type: essential hypertension Qualified Code(s): I10 - Essential (primary) hypertension Assessment/Plan Lung Nodule Pelvic Fracture s/p Fall HTN DM Hyperlipidemia CKD CAD - will obtain dedicated CT chest noncontrast to further characterize nodule - will need outpt f/u of chest imaging - no pulmonary contraindications for discharge with outpt f/u - rehab/PT Thank you for this consult Arnaldo Scott MD
[2017-10-05] MEDS: ALLOPURINOL 100 MG TABLET (FP) PO SCH (12:12)
[2017-10-05] MEDS: RANITIDINE HCL 150 MG TABLET (FP) PO SCH (12:12)
[2017-10-05] MEDS: ISOSORBIDE MONONITRATE 30 MG TAB.SR.24H (FP) PO SCH (12:12)
[2017-10-05] MEDS: ASPIRIN COATED 81 MG TABLET.EC PO SCH (12:14)
[2017-10-05] MEDS: DOCUSATE SODIUM 100 MG CAPSULE (FP) PO SCH (12:14)
[2017-10-05] MEDS: HEPARIN NA (PORCINE) 5,000 UNITS/ML 1ML VIAL SQ SCH (12:14)
[2017-10-05] MEDS ORDERED: PT OWN MED DRAWER 7, Y5N ONE (12:15)
[2017-10-05] MEDS: CINACALCET HCL 30 MG TAB (FP) PO SCH (12:16)
[2017-10-05] MEDS: CARVEDILOL 12.5 MG TABLET (FP) PO SCH (13:08)
[2017-10-05 13:16] LABS: ANION GAP 8 (8-16); BLOOD UREA NITROGEN 43 mg/dL (7-18); CALCIUM 8.3 mg/dL (8.5-10.1); CHLORIDE 108 mmol/L (98-107); CO2 27 mmol/L (21-32); CREATININE 1.9 mg/dL (0.55-1.02); GLUCOSE,RANDOM 138 mg/dL (74-106); POTASSIUM 4.5 mmol/L (3.5-5.1); SODIUM 143 mmol/L (136-145)
--- NOTE | 2017-10-05 14:12 | PN ---
Progress Note, Physician Chief Complaint: The patient seen in her room. Says she is feeling better. Awaiting CT scan of the chest for evaluation of Pulmonary nodule. The pain baeza improved. Ambulatory status suboptimal. Maintains good urine output. - Current Medication List Current Medications: Active Medications Allopurinol (Zyloprim -) 100 mg PO DAILY [facility] Last Admin: 10/05/17 12:12 Dose: 100 mg Aspirin (Ecotrin -) 81 mg PO DAILY [facility] Last Admin: 10/05/17 12:14 Dose: 81 mg Atorvastatin Calcium (Lipitor -) 10 mg PO HS [facility] Last Admin: 10/04/17 22:19 Dose: 10 mg Carvedilol (Coreg -) 12.5 mg PO BID [facility] Last Admin: 10/05/17 13:08 Dose: 12.5 mg Cinacalcet (Sensipar -) 30 mg PO DAILY [facility] Last Admin: 10/05/17 12:16 Dose: 30 mg Docusate Sodium (Colace -) 100 mg PO BID [facility] Last Admin: 10/05/17 12:14 Dose: 100 mg Gabapentin (Neurontin -) 300 mg PO HS [facility] Last Admin: 10/04/17 22:19 Dose: 300 mg Glipizide (Glucotrol -) 5 mg PO ACBK [facility] Last Admin: 10/05/17 06:40 Dose: 5 mg Heparin Sodium (Porcine) (Heparin -) 5,000 unit SQ BID [facility] Last Admin: 10/05/17 12:14 Dose: 5,000 unit Hydralazine HCl (Apresoline -) 50 mg PO TID [facility] Last Admin: 10/05/17 05:49 Dose: 50 mg Insulin Aspart (Novolog Vial Sliding Scale -) 1 vial SQ BIDAC [facility] PRN Reason: Protocol Last Admin: 10/05/17 06:40 Dose: 2 unit Insulin Detemir (Levemir Vial) 12 units SQ HS [facility] Last Admin: 10/04/17 22:20 Dose: 12 unit Isosorbide Mononitrate (Imdur -) 90 mg PO DAILY [facility] Last Admin: 10/05/17 12:12 Dose: 90 mg Levothyroxine Sodium (Synthroid -) 50 mcg PO 0700 [facility] Last Admin: 10/05/17 06:40 Dose: 50 mcg Morphine Sulfate (Morphine Sulfate) 2 mg IVPUSH Q4H PRN PRN Reason: PAIN LEVEL 4 - 6 Last Admin: 10/03/17 16:53 Dose: 2 mg Ranitidine HCl (Zantac -) 150 mg PO BID [facility] Last Admin: 10/05/17 12:12 Dose: 150 mg - Objective Vital Signs: Vital Signs Temperature 97.7 F 10/05/17 06:01 Pulse Rate 71 10/05/17 06:01 Respiratory Rate 20 10/05/17 06:01 Blood Pressure 125/56 10/05/17 06:01 O2 Sat by Pulse Oximetry (%) 96 10/04/17 21:00 Constitutional: Yes: Well Nourished, Calm Eyes: Yes: Conjunctiva Clear HENT: Yes: Normocephalic Cardiovascular: Yes: Regular Rate and Rhythm, S1, S2 Respiratory: Yes: CTA Bilaterally, Diminished Gastrointestinal: Yes: Normal Bowel Sounds, Soft, Abdomen, Obese Musculoskeletal: Yes: Muscle Pain, Other (Pelvic pain L> R) Neurological: Yes: Alert, Oriented Labs: CBC, BMP 10/03/17 06:40 10/05/17 12:39 Problem List - Problems (1) Acute renal failure Code(s): N17.9 - ACUTE KIDNEY FAILURE, UNSPECIFIED Qualifiers: Acute renal failure type: unspecified Qualified Code(s): N17.9 - Acute kidney failure, unspecified (2) Fall Code(s): W19.XXXA - UNSPECIFIED FALL, INITIAL ENCOUNTER Qualifiers: Encounter type: initial encounter Qualified Code(s): W19.XXXA - Unspecified fall, initial encounter (3) Fracture of right inferior pubic ramus Code(s): S32.591A - OTH FRACTURE OF RIGHT PUBIS, INIT ENCNTR FOR CLOSED FRACTURE (4) Lung nodule Code(s): R91.1 - SOLITARY PULMONARY NODULE (5) Abdominal pain Code(s): R10.9 - UNSPECIFIED ABDOMINAL PAIN (6) Acute on chronic diastolic congestive heart failure Code(s): I50.33 - ACUTE ON CHRONIC DIASTOLIC (CONGESTIVE) HEART FAILURE (7) [id number] kidney injury Code(s): N17.9 - ACUTE KIDNEY FAILURE, UNSPECIFIED; N18.9 - CHRONIC KIDNEY DISEASE, UNSPECIFIED (8) Anemia Code(s): D64.9 - ANEMIA, UNSPECIFIED Qualifiers: Anemia type: unspecified type Qualified Code(s): D64.9 - Anemia, unspecified (9) CAD (coronary artery disease) Code(s): I25.10 - ATHSCL HEART DISEASE OF [place] CORONARY ARTERY W/O ANG PCTRS Qualifiers: Coronary Disease-Associated Artery/Lesion type: [place] artery [place] vs. transplanted heart: [place] heart Associated angina: with stable angina Qualified Code(s): I25.118 - Atherosclerotic heart disease of [place] coronary artery with other forms of angina pectoris Assessment/Plan 82yo female with h/o HTN, hyperlipidemia, nonobstructive CAD, CHF, CKD, GERD who was admitted s/p fall and right hip pain. Found to have a pelvic fracture on imaging. Also found to have an incidental right apical lung nodule. The patient has underlying Stage 3 CKD, and was found to have superimposed Acute Renal failure ( Hemodynamic.) The Acute azotemia is improving and is expected to settle at her baseline. The patient will continue Physical therapy, and might even be transferred to SNF for short term rehab. W/u for pulmonary nodule in progress. Thank you. Will follow with you. Tiffany Patel MD
[2017-10-05] MEDS ORDERED: ACETAMINOPHEN 325 MG TABLET (FP) PO PRN ×2 (14:36→18:57)
[2017-10-05 17:02] VITALS: BP 143/63; PULSE 56; TEMP 98.4
[2017-10-05] MEDS ORDERED: oxyCODONE HCL 5 MG TABLET PO PRN (18:57)
== END 2017-10-05 20:15 | DRG 683 ==
LOC: JER 12:25 → JERBED 15:28 → J8W 21:14
PROVIDERS: ADMIT Specialist; ATTEND Specialist
DX: N17.9 Acute kidney failure, unspecified (principal); S32.591A Other specified fracture of right pubis, initial encounter for closed fracture; I13.0 Hypertensive heart and chronic kidney disease with heart failure and stage 1 through stage 4 chronic kidney disease, or unspecified chronic kidney disease; E87.5 Hyperkalemia; E11.22 Type 2 diabetes mellitus with diabetic chronic kidney disease; Z79.4 Long term (current) use of insulin; N18.4 Chronic kidney disease, stage 4 (severe); I50.9 Heart failure, unspecified; E21.1 Secondary hyperparathyroidism, not elsewhere classified; E86.1 Hypovolemia; R91.1 Solitary pulmonary nodule; W01.0XXA Fall on same level from slipping, tripping and stumbling without subsequent striking against object, initial encounter; Y93.89 Activity, other specified; Y92.032 Bedroom in apartment as the place of occurrence of the external cause; Y99.8 Other external cause status; E78.5 Hyperlipidemia, unspecified; K21.9 Gastro-esophageal reflux disease without esophagitis; I25.10 Atherosclerotic heart disease of native coronary artery without angina pectoris; D64.9 Anemia, unspecified
CPT/HCPCS: 36415; 70450-TC; 71045-TC-FY; 71250-TC; 72125-TC; 72192-TC; 73030-TC-RT-FY; 73523-TC-FY; 80048; 80053; 81003; 81015; 82550; 82553; 82962; 84484; 85025; 85027; 93005; 93010; 97116-GP; 97161-GP; 99284-25; J1644; J7030

== ENCOUNTER 2017-10-05 22:06 | Observation (INO) | payer OTHER ==
--- NOTE | 2017-10-05 22:45 | PDOC ---
Attending Attestation - Resident Resident Name: Giovany Smith - ED Attending Attestation I have performed the following: I have examined & evaluated the patient, The case was reviewed & discussed with the resident, I agree w/resident's findings & plan, Exceptions are as noted - Medical Decision Making 10/05/17 22:44 I, Dr. Stacy Albright, DO, attest that this document has been prepared under my direction and personally reviewed by me in its entirety. I further attest, that it accurately reflects all work, treatment, procedures and medical decision -making performed by me. 10/05/17 23:21 a/p: 82yo female d/c today to rehab for pubic rami fx -did not like the facility so she left and her daughter brought her back to the hospital -no new complaints -recent julita -- will repeat labs -will place in obs pending social work/pt eval in the AM -resident discussed the case with Dr. Sunshine - place in obs overnight under [facility] <Stacy Albright - Last Filed: 10/05/17 23:21> - HPI HPI: 10/06/17 00:04 The patient is a 82 year old female with past medical history of HTN, HLD, DM, CHF presents to the ER due to issues with the [facility]. The patient was recently discharged from [facility] s/p pubic rami fracture 2 days ago and was discharged to [facility]. The daughter reports the room they prepared for the [facility] and asked for a private room. They faculty states the private room will be available in the morning but the patient became anxious staying their overnight. The daughter states she was unable to take her home because of her fracture and medication issues. The daughter reports the patient is eating fine without complication. The patient denies chest pain, shortness of breath, headache and dizziness. Denies fever, chills, nausea, vomit, diarrhea and constipation. Denies dysuria, frequency, urgency and hematuria. Allergies: NKA Past surgical history: Abdominal surgery. Social history: No reported PCP: Dr. Jam Sunshine - Physicial Exam PE: 10/06/17 00:04 GENERAL: Awake, alert, and fully oriented, in no acute distress HEAD: No signs of trauma EYES: PERRLA, EOMI, sclera anicteric, conjunctiva clear ENT: Auricles normal inspection, hearing grossly normal, nares patent, oropharynx clear without exudates. Moist mucosa NECK: Normal ROM, supple, no lymphadenopathy, JVD, or masses LUNGS: Breath sounds equal, clear to auscultation bilaterally. No wheezes, and no crackles HEART: Regular rate and rhythm, normal S1 and S2, no murmurs, rubs or gallops ABDOMEN: Soft, nontender, normoactive bowel sounds. No guarding, no rebound. No masses EXTREMITIES: Normal range of motion, no edema. No clubbing or cyanosis. No cords, erythema, or tenderness NEUROLOGICAL:No focal finding. Cranial nerves II through XII grossly intact. Normal speech. SKIN: Warm, Dry, normal turgor, no rashes or lesions noted. - Medical Decision Making 10/06/17 00:04 Documentation prepared by Chey Phillips, acting as medical registrar for Stacy Albright DO. <Chey Phillips - Last Filed: 10/06/17 00:04>
--- NOTE | 2017-10-05 22:47 | PDOC ---
History of Present Illness - General Stated Complaint: REVISIT Time Seen by Provider: 10/05/17 22:38 - History of Present Illness Initial Comments: 10/05/17 23:14 The patient is an 81 year old female with a history of HTN, HLD, DM, CHF who presents to the ER for evaluation of fpc placement. The patient was recently discharged to [facility] from the hospital today after an admission for a pubic rami fracture following a fall 2 days ago. The patient is accompanied by family who assist in providing the history. They note that they arrived at the fpc and state that the room was extremely dirty and the patient became extremely anxious refusing to stay there. The patient's daughter states that they are unable to care for her at home due to her pelvic fracture and thus brought the patient back to the ER. They state that nothing clinically has changed since discharge and the patient's pain is well controlled. They otherwise deny fevers chills, SOB, chest pain, abdominal pain , nausea, vomiting, or changes with urination or bowel movements. Past History - Past Medical History Allergies/Adverse Reactions: Allergies Allergy/AdvReac Type Severity Reaction Status Date / Time No Known Allergies Allergy Verified 10/05/17 22:20 Home Medications: Ambulatory Orders Ranitidine HCl [Zantac] 150 mg PO BID #60 tablet 06/15/15 Aspirin Coated [Ecotrin -] 81 mg PO DAILY #30 tablet.ec 07/09/16 Carvedilol [Coreg -] 12.5 mg PO BID #180 tablet 07/09/16 Furosemide [Lasix -] 40 mg PO DAILY #30 tablet 07/09/16 Insulin Sliding Scale [Novolog Vial Sliding Scale -] 1 vial SQ ACHS #0 units Levothyroxine [Synthroid -] 50 mcg PO DAILY #90 tablet 07/09/16 Losartan Potassium 50 mg PO DAILY #0 07/09/16 Insulin (Levemir) [Levemir Vial] 12 units SQ HS 02/03/17 Isosorbide Mononitrate [Imdur -] 90 mg PO DAILY #90 tablet 02/04/17 Allopurinol [Zyloprim -] 100 mg PO DAILY 10/02/17 Atorvastatin Ca [Lipitor] 10 mg PO HS 10/02/17 Cinacalcet HCl [Sensipar] 30 mg PO DAILY 10/02/17 Gabapentin [Neurontin -] 300 mg PO HS 10/02/17 Glipizide [Glucotrol -] 5 mg PO TID 10/02/17 Spironolactone [Aldactone] 25 mg PO DAILY 10/02/17 hydrALAZINE HCL [Apresoline -] 50 mg PO TID 10/02/17 Acetaminophen [Tylenol .Regular Strength -] 650 mg PO Q6H PRN tablet 10/05/17 Docusate Sodium [Colace -] 100 mg PO BID capsule 10/05/17 Heparin - 5,000 unit SQ BID vial 10/05/17 Insulin Sliding Scale [Novolog Vial Sliding Scale -] 1 vial SQ BIDAC units Oxycodone HCl/Acetaminophen [Percocet 5-325 mg Tablet] 1 combo PO Q6H PRN #40 tablet MDD 4 10/05/17 COPD: No CHF: Yes Diabetes: Yes GI Disorders: Yes (GERD.) HTN: Yes Hypercholesterolemia: Yes Thyroid Disease: Yes (HYPO.) Other medical history: pelvic fx - Surgical History Abdominal Surgery: Yes - Immunization History Immunization Up to Date: Yes - Suicide/Smoking/Psychosocial Hx Smoking Status: No Smoking History: Never smoked Have you smoked in the past 12 months: No Number of Cigarettes Smoked Daily: 0 Hx Alcohol Use: No Drug/Substance Use Hx: No Substance Use Type: None Hx Substance Use Treatment: No Review of Systems - Review of Systems Comments:: 10/05/17 23:18 Constitutional: No fevers, chills, fatigue, malaise HEENT: No Rhinorrhea, nasal congestion, visual changes Cardiovascular: No chest pain, syncope, palpitations, lightheadedness Respiratory: No Cough, SOB, Hemoptysis, Gastrointestinal: No Abdominal pain, Nausea, Vomiting, Constipation, Diarrhea, Melena Genitourinary: No Dysuria, Frequency, Urgency, Hesitancy, Hematuria, Flank pain Musculoskeletal: No Myalgia, arthralgia Skin: No rashes, itching, bruising, pallor Neurologic: No Headache, Dizziness, Numbness, Weakness, or Tingling Psychiatric: No Hallucinations. No SI or HI *Physical Exam - Vital Signs Last Vital Signs Temp Pulse Resp BP Pulse Ox 97.9 F 65 18 193/68 98 10/05/17 22:22 10/05/17 22:22 10/05/17 22:22 10/05/17 22:22 10/05/17 22:22 - Physical Exam Comments: 10/05/17 23:19 General Appearance: Nourished. No Apparent Distress HEENT: EOMI, COLEEN. No Pharyngeal Erythema, Tonsillar Exudate, Tonsillar Erythema Neck: No Cervical Lymphadenopathy Respiratory/Chest: Lungs Clear, Normal Breath Sounds. No Crackles, Rales, Rhonchi, Wheezing Cardiovascular: Regular Rhythm, Regular Rate. No Murmur, Gallops, Rubs Gastrointestinal/Abdominal: Normal Bowel Sounds, Soft. No Guarding, Rebound, Tenderness Musculoskeletal: No CVA Tenderness Extremity: Normal Capillary Refill Integumentary: Normal Color, Dry, Warm Neurologic: Fully Oriented, Alert, Normal Mood/Affect, Normal Response, Medical Decision Making - Medical Decision Making 10/05/17 23:20 The patient is an 81 year old female with a history of HTN, HLD, DM, CHF who presents to the ER for evaluation of fpc placement. Given the patient' s history, it appears her current presentation is for social work consultation for proper discharge planning and fpc placement. Social work is currently unavailable until the morning and the patient will require observation admission for further management, social work eval, and pt eval. We discussed the case with Dr. Sunshine who agrees with the plan and requests admission to the hospitalist team. *DC/Admit/Observation/Transfer Diagnosis at time of Disposition: Pubic ramus fracture Qualifiers: Encounter type: subsequent encounter Fracture type: closed Laterality: unspecified laterality Fracture healing: with routine healing Qualified Code(s) : S32.599D - Other specified fracture of unspecified pubis, subsequent encounter for fracture with routine healing - Discharge Dispostion Condition at time of disposition: Stable Admit: Yes - Referrals Referrals: Jam Sunshine MD [Primary Care Provider] - - Patient Instructions - Post Discharge Activity
[2017-10-06 00:08] LABS: BASO % 0.4 % (0-2.0); EOS % 7.2 % (0-4.5); HEMATOCRIT 32.4 % (32.4-45.2); HEMOGLOBIN 11.3 GM/dL (10.7-15.3); MCH 32.1 pg (25.7-33.7); MCHC 34.9 g/dl (32.0-36.0); MEAN CELL VOLUME 91.9 fl (80-96); MEAN PLT VOLUME 8.2 fl (7.5-11.1); MONO % 9.5 % (3.8-10.2); NEUT % 67.9 % (42.8-82.8); PLATELET COUNT 186 K/MM3 (134-434); RBC 3.53 M/mm3 (3.60-5.2); RDW 13.8 % (11.6-15.6); WHITE BLOOD COUNT 10.5 K/mm3 (4.0-10.0)
[2017-10-06 00:32] LABS: ALBUMIN 3.6 g/dl (3.4-5.0); ANION GAP 10 (8-16); BLOOD UREA NITROGEN 44 mg/dL (7-18); CALCIUM 8.4 mg/dL (8.5-10.1); CHLORIDE 108 mmol/L (98-107); CO2 24 mmol/L (21-32); GLUCOSE,RANDOM 104 mg/dL (74-106); POTASSIUM 4.4 mmol/L (3.5-5.1); SGOT/AST 27 U/L (15-37); SGPT/ALT 18 U/L (12-78); SODIUM 142 mmol/L (136-145)
[2017-10-06 00:33] LABS: ALK PHOS 90 U/L (45-117); BILIRUBIN,TOTAL 0.7 mg/dL (0.2-1.0); TOT PROT 7.1 g/dl (6.4-8.2)
--- NOTE | 2017-10-06 00:37 | PN ---
Teaching Attending Note Name of Resident: Sunitha Ramos ATTENDING PHYSICIAN STATEMENT I saw and evaluated the patient. I reviewed the resident's note and discussed the case with the resident. I agree with the resident's findings and plan as documented. SUBJECTIVE: 81F HTN HLD DM2 [facility] daughter as patient and family not haappy with the facility. Discussing with the daughter she is interested in home PT and services. Her recent admission was for mechanical fall complicated by pubic rami fracture that is being medically managed. OBJECTIVE: Gen: NAD CV: RRR nom/r/g Lungs: CTA Abd: soft NTND Ext: no edema ASSESSMENT AND PLAN: Admit to Obs for SW referral and home services instatement. resume discharge medication regimen
[2017-10-06] MEDS ORDERED: ACETAMINOPHEN 325 MG TABLET (FP) PO PRN ×2 (00:39→05:31)
--- NOTE | 2017-10-06 00:51 | HP ---
CHIEF COMPLAINT: does not like [facility] PCP: Dr. Sunshine HISTORY OF PRESENT ILLNESS: This is a 82 year old female with a medical history of htn, dm, chf, hypotyroid , who recently suffered from a pubic rami fracture, was discharged yesterday to [facility] for sub acute rehab. Patient brought in by daughter due to family not liking living condition at [facility]. Was told by primary to go to the ER. Daughter wants patient home physical therapy set up. As per daughter, she thinks mother can walk over 50 feet with walker. No associated symptoms; denies any pain. Recent Travel: PAST MEDICAL HISTORY: as above PAST SURGICAL HISTORY: Social History: Smoking:no Alcohol:no Drugs: no Family History: Allergies No Known Allergies Allergy (Verified 10/05/17 22:20) HOME MEDICATIONS: Home Medications Medication Instructions Recorded Ranitidine HCl [Zantac] 150 mg PO BID #60 tablet 06/15/15 Aspirin Coated [Ecotrin -] 81 mg PO DAILY #30 tablet.ec 07/09/16 Carvedilol [Coreg -] 12.5 mg PO BID #180 tablet 07/09/16 Furosemide [Lasix -] 40 mg PO DAILY #30 tablet 07/09/16 Insulin Sliding Scale [Novolog 1 vial SQ ACHS #0 units 07/09/16 Vial Sliding Scale -] Levothyroxine [Synthroid -] 50 mcg PO DAILY #90 tablet 07/09/16 Losartan Potassium 50 mg PO DAILY #0 07/09/16 Insulin (Levemir) [Levemir Vial] 12 units SQ HS 02/03/17 Isosorbide Mononitrate [Imdur -] 90 mg PO DAILY #90 tablet 02/04/17 Allopurinol [Zyloprim -] 100 mg PO DAILY 10/02/17 Atorvastatin Ca [Lipitor] 10 mg PO HS 10/02/17 Cinacalcet HCl [Sensipar] 30 mg PO DAILY 10/02/17 Gabapentin [Neurontin -] 300 mg PO HS 10/02/17 Glipizide [Glucotrol -] 5 mg PO TID 10/02/17 Spironolactone [Aldactone] 25 mg PO DAILY 10/02/17 hydrALAZINE HCL [Apresoline -] 50 mg PO TID 10/02/17 Acetaminophen [Tylenol .Regular 650 mg PO Q6H PRN tablet 10/05/17 Strength -] Docusate Sodium [Colace -] 100 mg PO BID capsule 10/05/17 Heparin - 5,000 unit SQ BID vial 10/05/17 Insulin Sliding Scale [Novolog 1 vial SQ BIDAC units 10/05/17 Vial Sliding Scale -] Oxycodone HCl/Acetaminophen 1 combo PO Q6H PRN #40 tablet MDD 4 10/05/17 [Percocet 5-325 mg Tablet] REVIEW OF SYSTEMS none CONSTITUTIONAL: Absent: fever, chills, diaphoresis, generalized weakness, malaise, loss of appetite, weight change HEENT: Absent: rhinorrhea, nasal congestion, throat pain, throat swelling, difficulty swallowing, mouth swelling, ear pain, eye pain, visual changes CARDIOVASCULAR: Absent: chest pain, syncope, palpitations, irregular heart rate, lightheadedness , peripheral edema RESPIRATORY: Absent: cough, shortness of breath, dyspnea with exertion, orthopnea, wheezing, stridor, hemoptysis GASTROINTESTINAL: Absent: abdominal pain, abdominal distension, nausea, vomiting, diarrhea, constipation, melena, hematochezia GENITOURINARY: Absent: dysuria, frequency, urgency, hesitancy, hematuria, flank pain, genital pain MUSCULOSKELETAL: Absent: myalgia, arthralgia, joint swelling, back pain, neck pain SKIN: Absent: rash, itching, pallor HEMATOLOGIC/IMMUNOLOGIC: Absent: easy bleeding, easy bruising, lymphadenopathy, frequent infections ENDOCRINE: Absent: unexplained weight gain, unexplained weight loss, heat intolerance, cold intolerance NEUROLOGIC: Absent: headache, focal weakness or paresthesias, dizziness, unsteady gait, seizure, mental status changes, bladder or bowel incontinence PSYCHIATRIC: Absent: anxiety, depression, suicidal or homicidal ideation, hallucinations. PHYSICAL EXAMINATION Vital Signs - 24 hr 10/05/17 22:22 Temperature 97.9 F Pulse Rate 65 Respiratory 18 Rate Blood Pressure 193/68 O2 Sat by Pulse 98 Oximetry (%) GENERAL: Awake, alert, and fully oriented, in no acute distress. laying comfortably on exam table LUNGS: Breath sounds equal, clear to auscultation bilaterally. No wheezes, and no crackles. No accessory muscle use. HEART: Regular rate and rhythm, normal S1 and S2 without murmur, rub or gallop. ABDOMEN: Soft, nontender, not distended, normoactive bowel sounds, no guarding, no rebound, no masses. No hepatomegaly or splenomegaly. UPPER EXTREMITIES: 2+ pulses, warm, well-perfused. No cyanosis. No clubbing. No peripheral edema. LOWER EXTREMITIES: 2+ pulses, warm, well-perfused. No calf tenderness. No peripheral edema. NEUROLOGICAL: Cranial nerves II-XII intact. Normal speech. Normal gait. PSYCHIATRIC: Cooperative. Good eye contact. Appropriate mood and affect. SKIN: Warm, dry, normal turgor, no rashes or lesions noted, normal capillary refill. Laboratory Results - last 24 hr 10/05/17 10/05/17 23:52 23:52 WBC 10.5 H D RBC 3.53 L Hgb 11.3 Hct 32.4 MCV 91.9 MCH 32.1 MCHC 34.9 RDW 13.8 Plt Count 186 MPV 8.2 Neutrophils % 67.9 Lymphocytes % 15.0 D Monocytes % 9.5 Eosinophils % 7.2 H Basophils % 0.4 Sodium 142 Potassium 4.4 Chloride 108 H Carbon Dioxide 24 Anion Gap 10 BUN 44 H Creatinine 2.0 H Creat Clearance w eGFR 23.85 Random Glucose 104 Calcium 8.4 L Total Bilirubin 0.7 D AST 27 ALT 18 Alkaline Phosphatase 90 Total Protein 7.1 Albumin 3.6 ASSESSMENT/PLAN: This is a 82 year old female, s/p pubic rami fracture, was sent to rehab at [facility], did not like it there, came to hospital for placement vs home physical therapy set up. Daughter states she pradip not want to leave the hospital without this being set up. #s/p pubic rami fracture: -pain controlled; percocet prn -physical therapy -social service technician consult -co condition stable; cont home meds DVT ppl: heparin sq Disposition: obs; Problem List - Problem (1) Pubic ramus fracture Code(s): S32.599A - OTH FRACTURE OF UNSP PUBIS, INIT ENCNTR FOR CLOSED FRACTURE Qualifiers: Encounter type: subsequent encounter Fracture type: closed Laterality: unspecified laterality Fracture healing: with routine healing Qualified Code (s): S32.599D - Other specified fracture of unspecified pubis, subsequent encounter for fracture with routine healing Visit type - Emergency Visit Emergency Visit: Yes Care time: The patient presented to the Emergency Department on the above date and was hospitalized for further evaluation of their emergent condition. - New Patient This patient is new to me today: Yes Date on this admission: 10/06/17 - Critical Care Critical Care patient: No Hospitalist Screening - Colonoscopy Questionnaire Colonoscopy Questionnaire: Colonoscopy Questionnaire - Patient: 50 - 75 years old and never had a screening colonoscopy: Unknown History of colon or rectal polyps, or CA: Unknown History of IBD, Crohn's disease or UC: Unknown History of abdominal radiation therapy as a child: Unknown - Relative: 1 with colon or rectal CA, or polyps at age 60 or younger: Unknown Colon or rectal CA diagnosed at age 45 or younger: Unknown Multiple relatives with colon or rectal CA: Unknown - Outcome: Screening Result: Negative Screen
[2017-10-06 02:37] VITALS: BMI 30.7
[2017-10-06] MEDS: INSULIN SLIDING SCALE (NOVOLOG) 1 VIAL SQ SCH ×3 (06:14→17:29)
[2017-10-06] MEDS: HEPARIN NA (PORCINE) 5,000 UNITS/ML 1ML VIAL SQ SCH ×2 (06:16→13:59)
[2017-10-06] MEDS: hydrALAZINE HCL 50 MG TABLET (FP) PO SCH ×2 (06:16→13:59)
[2017-10-06] MEDS ORDERED: LEVOTHYROXINE NA 50 MCG TABLET (FP) PO SCH (07:00)
[2017-10-06] MEDS ORDERED: CARVEDILOL 12.5 MG TABLET (FP) PO SCH (10:00)
[2017-10-06] MEDS ORDERED: ISOSORBIDE MONONITRATE 30 MG TAB.SR.24H (FP) PO SCH (10:00)
[2017-10-06] MEDS ORDERED: RANITIDINE HCL 150 MG TABLET (FP) PO SCH (10:00)
[2017-10-06] MEDS ORDERED: ASPIRIN COATED 81 MG TABLET.EC PO SCH (10:00)
[2017-10-06] MEDS ORDERED: ALLOPURINOL 100 MG TABLET (FP) PO SCH (10:00)
[2017-10-06] MEDS ORDERED: LOSARTAN POTASSIUM 50 MG TABLET (FP) PO SCH (10:00)
[2017-10-06] MEDS ORDERED: FUROSEMIDE 40 MG TABLET (FP) PO SCH (10:00)
[2017-10-06] MEDS ORDERED: DOCUSATE SODIUM 100 MG CAPSULE (FP) PO SCH (10:00)
[2017-10-06] MEDS ORDERED: CINACALCET HCL 30 MG TAB (FP) PO SCH (10:00)
[2017-10-06] MEDS ORDERED: PT OWN MED DRAWER 7, Y5N ONE (10:24)
--- NOTE | 2017-10-06 13:28 | PN ---
Teaching Attending Note Name of Resident: Edmundo Reyes ATTENDING PHYSICIAN STATEMENT I saw and evaluated the patient. I reviewed the resident's note and discussed the case with the resident. I agree with the resident's findings and plan as documented. SUBJECTIVE: no fever or chills. has no abd pain, has no dysuria , has pain in pelvis especially right OBJECTIVE: NAD CV: RRR, 2/6 SM at LUSB and LLSB Lungs: CTAB Ext: no edema. Has TTP in R thigh. TTP in R groin . A/P 82 y/o lady with h/o CKD 3, HTN, DM, HLP, CHF, GERD, CAD, and recent admission for ANDRÉS and R pubic ramus Fx , d/c yesterday from [facility] to rehab but left rehab as she did not like the place 1- recent R pubic ramus Fx. needs PT . tylenol for pain DVT Px while in house 2-h/o CHF:: not in acute exaerbation . cont lasix , coreg, ARB. 3- HTN: cont meds 4- CAD , cont ASA , BB , ARB, imdur 5- CKD , stable Cr at base line 6- check US of LE due to R thigh tenderness. pending US of LE , possible dc home with PT . plan d/w with her and her
[2017-10-06 15:40] VITALS: BP 152/65; PULSE 59; TEMP 98.6
--- NOTE | 2017-10-06 21:27 | DS ---
Physical Exam: SUBJECTIVE: Patient seen and examined at bedside. Patient has no new complaints. No events overnight. OBJECTIVE: Vital Signs Period Temp Pulse Resp BP Sys/Hernandez Pulse Ox Last 24 Hr 97.7 F-98.6 F 59-101 18-22 150-193/65-96 95-98 PHYSICAL EXAM GENERAL: The patient is awake, alert, and fully oriented, in no acute distress. NECK: Trachea midline, full range of motion, supple. LUNGS: Breath sounds equal, clear to auscultation bilaterally, no wheezes, no crackles, no accessory muscle use. HEART: Regular rate and rhythm, S1, S2 without murmur, rub or gallop. ABDOMEN: Soft, nontender, nondistended, normoactive bowel sounds, no guarding, no rebound, no hepatosplenomegaly, no masses. EXTREMITIES: 2+ pulses, warm, well-perfused, no edema. NEUROLOGICAL: Cranial nerves II through X grossly intact. Normal speech, gait not observed. SKIN: Warm, dry, normal turgor, no rashes or lesions noted. LABS Laboratory Results - last 24 hr 10/05/17 10/05/17 10/06/17 23:52 23:52 11:39 WBC 10.5 H D RBC 3.53 L Hgb 11.3 Hct 32.4 MCV 91.9 MCH 32.1 MCHC 34.9 RDW 13.8 Plt Count 186 MPV 8.2 Neutrophils % 67.9 Lymphocytes % 15.0 D Monocytes % 9.5 Eosinophils % 7.2 H Basophils % 0.4 Sodium 142 Potassium 4.4 Chloride 108 H Carbon Dioxide 24 Anion Gap 10 BUN 44 H Creatinine 2.0 H Creat Clearance w eGFR 23.85 POC Glucometer 239 Random Glucose 104 Calcium 8.4 L Total Bilirubin 0.7 D AST 27 ALT 18 Alkaline Phosphatase 90 Total Protein 7.1 Albumin 3.6 HOSPITAL COURSE: Date of Admission:10/05/17 The patient is an 82 year old female w/PMH htn, dm, chf, hypotyroid, who was recently admitted for a pubic rami fracture and was discharged yesterday to [facility] for sub acute rehab. The patient was brought back by her daughter as she was not happy with the living condition at the SNF. During the patient's stay, she was found to have leg pain. Given the patient recently had a fracture, surgery and was undergoing rehab, a doppler of both lower extremities was ordered. It was negative for DVT in either limb. The patient was discharged home with [facility]. She was advised to follow up with her PCP within 1 week of discharge home in order to repeat renal function tests as she had a elevated creatinine on admission. She was provided with a prescription for this lab test. She was advised not to take her Lasix or spironolactone as per Dr. Sunshine's initial discharge instruction. She was given a prescription for Tramadol (25mg Q12 hrs, 3 tabs) for pain. Date of Discharge: 10/06/17 Minutes to complete discharge: 50 Discharge Summary Reason For Visit: FRACTURE OF PUBIC RAMUS Condition: Improved - Instructions Diet, Activity, Other Instructions: You are being discharged home with visiting nurse service. You should follow up with Dr. Sunshine within one week for repeat lab work to check your kidneys. A prescription for blood work has been provided for you. Avoid NSAIDs as these medications can hurt your kidneys, take Tyelonol for pain , maximum 4grams of tylenol in a 24hr period. Please hold the following medications as per Dr. Sunshine's instructions from your discharge yesterday: - lasix -spironolactone Please continue your other medications as prescribed, continue your losartan. If you begin to experience chest pain, shortness of breath, increasing leg pain or if any of your symptoms become worse, please call your doctor or return to the emergency department. Referrals: Jam Sunshine MD [Primary Care Provider] - Disposition: [facility]/HOME HEALTH CARE - Home Medications Comprehensive Discharge Medication List: Ambulatory Orders Ranitidine HCl [Zantac] 150 mg PO BID #60 tablet 06/15/15 Aspirin Coated [Ecotrin -] 81 mg PO DAILY #30 tablet.ec 07/09/16 Carvedilol [Coreg -] 12.5 mg PO BID #180 tablet 07/09/16 Levothyroxine [Synthroid -] 50 mcg PO DAILY #90 tablet 07/09/16 Insulin (Levemir) [Levemir Vial] 12 units SQ HS 02/03/17 Isosorbide Mononitrate [Imdur -] 90 mg PO DAILY #90 tablet 02/04/17 Allopurinol [Zyloprim -] 100 mg PO DAILY 10/02/17 Atorvastatin Ca [Lipitor] 10 mg PO HS 10/02/17 Cinacalcet HCl [Sensipar] 30 mg PO DAILY 10/02/17 Gabapentin [Neurontin -] 300 mg PO HS 10/02/17 Glipizide [Glucotrol -] 5 mg PO TID 10/02/17 hydrALAZINE HCL [Apresoline -] 50 mg PO TID 10/02/17 Acetaminophen [Tylenol .Regular Strength -] 650 mg PO Q6H PRN tablet 10/05/17 Docusate Sodium [Colace -] 100 mg PO BID capsule 10/05/17 Oxycodone HCl/Acetaminophen [Percocet 5-325 mg Tablet] 1 combo PO Q6H PRN #40 tablet MDD 4 10/05/17 Losartan Potassium 50 mg PO DAILY 10/06/17 Miscellaneous Medical Supply [Outpatient Order] 1 each ASDIR #1 misc Tramadol HCl 25 mg PO Q12H #3 tablet MDD 50 mg 10/06/17 This patient is new to me today: Yes Date on this admission: 10/06/17 Emergency Visit: Yes ED Registration Date: 10/05/17 Care time: The patient presented to the Emergency Department on the above date and was hospitalized for further evaluation of their emergent condition. Critical Care patient: No - Discharge Referral Referred to [facility] No
[2017-10-06] MEDS ORDERED: INSULIN DETEMIR 100 UNITS/ML MDV SQ SCH (22:00)
[2017-10-06] MEDS ORDERED: GABAPENTIN 300 MG CAPSULE (FP) PO SCH (22:00)
[2017-10-06] MEDS ORDERED: ATORVASTATIN CA 10 MG TABLET (FP) PO SCH (22:00)
== END 2017-10-06 18:31 | disposition home health service (06) ==
LOC: JER 22:06 → JERBED 23:54 → UNDOADMOB 10-06 00:31 → JERBED 10-06 02:25 → J6S 10-06 02:25
PROVIDERS: ADMIT Internal Medicine; ATTEND Internal Medicine
PROC: 3E013GC Introduction of Other Therapeutic Substance into Subcutaneous Tissue, Percutaneous Approach (ICD-10-PCS; principal; 2017-10-05)
DX: S32.591D Other specified fracture of right pubis, subsequent encounter for fracture with routine healing (principal); W19.XXXD Unspecified fall, subsequent encounter; I10 Essential (primary) hypertension; E78.5 Hyperlipidemia, unspecified; E11.9 Type 2 diabetes mellitus without complications; E03.9 Hypothyroidism, unspecified; I50.9 Heart failure, unspecified; K21.9 Gastro-esophageal reflux disease without esophagitis; R79.89 Other specified abnormal findings of blood chemistry; M79.605 Pain in left leg; M79.604 Pain in right leg; Z79.4 Long term (current) use of insulin; Z79.82 Long term (current) use of aspirin
CPT/HCPCS: 36415; 80053; 82962; 85025; 93970-TC; 96372; 99284-25; G0378; J1644

== ENCOUNTER 2017-11-07 20:36 | Inpatient (IN) | payer OTHER ==
[2017-11-07] MEDS ORDERED: ASPIRIN 81 MG CHEWABLE TABLETS PO ONE (21:34)
--- NOTE | 2017-11-07 21:34 | PDOC ---
History of Present Illness - General History Source: Patient, Family Exam Limitations: No Limitations <Yuliana Tejada - Last Filed: 11/08/17 00:51> <Pau Red - Last Filed: 11/08/17 01:37> - General Chief Complaint: Chest Pain Stated Complaint: CHEST PAIN Time Seen by Provider: 11/07/17 21:33 - History of Present Illness Initial Comments: 11/07/17 23:26 The patient is an 82 year old female brought in by EMS, with a significant past medical history of CHF, diabetes, GERD, hypertension, hyperlipidemia, and hypothyroidism who presents to the emergency department for evaluation of chest pain and left arm pain. The patient reports intermittent episodes of left arm pain and left sided neck pain. She describes the left sided neck pain as radiating to the left arm and chest, ranked 3/10 in severity. The patient reports receiving an ECG test this morning at her cardiologists office for her chest pain, was told to start Ranexa, and is scheduled to have a nuclear stress test in 3 weeks. As per the patient's daughter, the pain initially subsided, but returned this evening which prompted her visit to the emergency department. The patient reports an associated symptom of a moderate headache. The patient denies shortness of breath, productive cough, dizziness, fever, chills, nausea, vomiting, diarrhea, and constipation. Denies any urinary issues. Allergies: NKDA Surgical History: Abdominal surgery PCP: Dr. Jam Sunshine Groundman: Dr. Apollo Kiser Daughter: [facility]- (Yuliana Tejada) Past History <Yuliana Tejada - Last Filed: 11/08/17 00:51> - Past Medical History COPD: No CHF: Yes Diabetes: Yes GI Disorders: Yes (GERD.) HTN: Yes Hypercholesterolemia: Yes Thyroid Disease: Yes (HYPO.) - Surgical History Abdominal Surgery: Yes - Immunization History Immunization Up to Date: Yes - Suicide/Smoking/Psychosocial Hx Smoking Status: No Smoking History: Never smoked Have you smoked in the past 12 months: No Number of Cigarettes Smoked Daily: 0 Hx Alcohol Use: No Drug/Substance Use Hx: No Substance Use Type: None Hx Substance Use Treatment: No <Pau Red - Last Filed: 11/08/17 01:37> - Past Medical History Allergies/Adverse Reactions: Allergies Allergy/AdvReac Type Severity Reaction Status Date / Time No Known Allergies Allergy Verified 11/07/17 21:38 Home Medications: Ambulatory Orders Ranitidine HCl [Zantac] 150 mg PO BID #60 tablet 06/15/15 Aspirin Coated [Ecotrin -] 81 mg PO DAILY #30 tablet.ec 07/09/16 Carvedilol [Coreg -] 12.5 mg PO BID #180 tablet 07/09/16 Levothyroxine [Synthroid -] 50 mcg PO DAILY #90 tablet 07/09/16 Insulin (Levemir) [Levemir Vial] 12 units SQ HS 02/03/17 Isosorbide Mononitrate [Imdur -] 90 mg PO DAILY #90 tablet 02/04/17 Allopurinol [Zyloprim -] 100 mg PO DAILY 10/02/17 Atorvastatin Ca [Lipitor] 10 mg PO HS 10/02/17 Cinacalcet HCl [Sensipar] 30 mg PO DAILY 10/02/17 Gabapentin [Neurontin -] 300 mg PO HS 10/02/17 Glipizide [Glucotrol -] 5 mg PO TID 10/02/17 hydrALAZINE HCL [Apresoline -] 50 mg PO TID 10/02/17 Acetaminophen [Tylenol .Regular Strength -] 650 mg PO Q6H PRN tablet 10/05/17 Docusate Sodium [Colace -] 100 mg PO BID capsule 10/05/17 Oxycodone HCl/Acetaminophen [Percocet 5-325 mg Tablet] 1 combo PO Q6H PRN #40 tablet MDD 4 10/05/17 Losartan Potassium 50 mg PO DAILY 10/06/17 Miscellaneous Medical Supply [Outpatient Order] 1 each ASDIR #1 misc Tramadol HCl 25 mg PO Q12H #3 tablet MDD 50 mg 10/06/17 Review of Systems - Review of Systems Able to Perform ROS?: Yes <Yuliana Tejada - Last Filed: 11/08/17 00:51> <Pau Red - Last Filed: 11/08/17 01:37> - Review of Systems Comments:: CONSTITUTIONAL: Absent: fever, chills, diaphoresis, generalized weakness, malaise, loss of appetite HEENT: (+)Left sided neck pain. Absent: rhinorrhea, nasal congestion, throat pain, throat swelling, difficulty swallowing, mouth swelling, ear pain, eye pain, visual Changes CARDIOVASCULAR: (+)Chest pain. Absent: syncope, palpitations, irregular heart rate, lightheadedness, peripheral edema RESPIRATORY: Absent: cough, shortness of breath, dyspnea with exertion, orthopnea, wheezing, stridor, hemoptysis GASTROINTESTINAL: Absent: abdominal pain, abdominal distension, nausea, vomiting, diarrhea, constipation, melena, hematochezia GENITOURINARY: Absent: dysuria, frequency, urgency, hesitancy, hematuria, flank pain, genital pain MUSCULOSKELETAL: Absent: myalgia, arthralgia, joint swelling SKIN: Absent: rash, itching, pallor HEMATOLOGIC/IMMUNOLOGIC: Absent: easy bleeding, easy bruising, lymphadenopathy, frequent infections ENDOCRINE: Absent: unexplained weight gain, unexplained weight loss, heat intolerance, cold intolerance NEUROLOGIC: (+)Headache. Absent: Focal weakness or paresthesias, dizziness, unsteady gait, seizure, mental status changes, bladder or bowel incontinence PSYCHIATRIC: Absent: anxiety, depression, suicidal or homicidal ideation, hallucinations. (Yuliana Tejada) *Physical Exam <Yuliana Tejada - Last Filed: 11/08/17 00:51> <Pau Red - Last Filed: 11/08/17 01:37> - Vital Signs Last Vital Signs Temp Pulse Resp BP Pulse Ox 97.8 F 66 18 141/79 100 11/07/17 21:38 11/07/17 21:38 11/07/17 21:38 11/07/17 21:38 11/07/17 21:38 - Physical Exam Comments: GENERAL: Well developed, well nourished. Awake and alert. No acute distress. HEENT: Normocephalic, atraumatic. PERRLA, EOMI. No conjunctival pallor. Sclera are non- icteric. Moist mucous membranes. Oropharynx is clear. NECK: Supple. Full ROM. No JVD. Carotid pulses 2+ and symmetric, without bruits. No thyromegaly. No lymphadenopathy. CARDIOVASCULAR: Regular rate and rhythm. No murmurs, rubs, or gallops. Distal pulses are 2+ and symmetric. PULMONARY: No evidence of respiratory distress. Lungs clear to auscultation bilaterally. No wheezing, rales or rhonchi. ABDOMINAL: (+)Chronic abdominal pain, mild tenderness, no focality. Soft. Non-distended. No rebound or guarding. No organomegaly. Normoactive bowel sounds. MUSCULOSKELETAL Normal range of motion at all joints. No bony deformities or tenderness. No CVA tenderness. EXTREMITIES: (+)Left arm pain, full ROM. No pitting edema. No cyanosis. No clubbing. No calf tenderness. SKIN: Warm and dry. Normal capillary refill. No rashes. No jaundice. NEUROLOGICAL: Alert, awake, appropriate. Cranial nerves 2-12 intact. No deficits to light touch and temperature in face, upper extremities and lower extremities. No motor deficits in the in face, upper extremities and lower extremities. Normoreflexic in the upper and lower extremities. Normal speech. Toes are down- going bilaterally. PSYCHIATRIC: Cooperative. Good eye contact. Appropriate mood and affect. (Yuliana Tejada) - Procedure Monitoring Vital Signs: Vital Signs Temp Pulse Resp BP Pulse Ox 97.8 F 66 18 141/79 100 11/07/17 21:38 11/07/17 21:38 11/07/17 21:38 11/07/17 21:38 11/07/17 21:38 ED Treatment Course - LABORATORY CBC & Chemistry Diagram: 11/07/17 22:49 11/07/17 22:49 <Yuliana Tejada - Last Filed: 11/08/17 00:51> - LABORATORY CBC & Chemistry Diagram: 11/07/17 22:49 11/07/17 22:49 <Pau Red - Last Filed: 11/08/17 01:37> - ADDITIONAL ORDERS Additional order review: Laboratory Results 11/07/17 11/07/17 22:49 22:49 PT with INR 12.40 INR 1.10 Sodium 135 L Potassium 4.9 Chloride 98 Carbon Dioxide 29 Anion Gap 8 BUN 39 H Creatinine 2.8 H Creat Clearance w eGFR 16.18 Random Glucose 181 H Calcium 8.1 L Magnesium 2.1 Total Bilirubin 0.4 D AST 18 ALT 20 Alkaline Phosphatase 125 H Creatine Kinase 118 Troponin I 0.02 B-Natriuretic Peptide 224.32 Total Protein 7.0 Albumin 3.7 11/07/17 22:49 RBC 3.35 L MCV 92.3 MCHC 33.3 RDW 14.0 MPV 8.2 Neutrophils % 53.5 D Lymphocytes % 24.7 D Monocytes % 9.0 Eosinophils % 11.9 H Basophils % 0.9 - RADIOLOGY Radiology Studies Ordered: Category Date Time Status CHEST X-RAY PORTABLE* [RAD] Stat Radiology 11/07/17 21:38 Taken - Medications Given in the ED: ED Medications Discontinued Medications Generic Name Dose Route Start Last Admin Trade Name Freq PRN Reason Stop Dose Admin Acetaminophen 975 mg 11/07/17 21:37 11/07/17 22:52 Tylenol - PO 11/07/17 21:38 975 mg ONCE STA Administration Aspirin 162 mg 11/07/17 21:34 11/07/17 22:52 Asa - PO 11/07/17 21:35 162 mg ONCE ONE Administration Medical Decision Making <Yuliana Tejada - Last Filed: 11/08/17 00:51> <Pau Red - Last Filed: 11/08/17 01:37> - Medical Decision Making Case discussed with Dr. Jam Sunshine at 00:51. (Yuliana Tejada) *DC/Admit/Observation/Transfer <Yuliana Tejada - Last Filed: 11/08/17 00:51> - Discharge Dispostion Decision to Admit order: Yes <Pau Red - Last Filed: 11/08/17 01:37> Diagnosis at time of Disposition: Chronic renal disease Qualifiers: Chronic kidney disease stage: unspecified stage Qualified Code(s): N18.9 - Chronic kidney disease, unspecified CAD (coronary artery disease) Qualifiers: Coronary Disease-Associated Artery/Lesion type: [place] artery [place] vs. transplanted heart: [place] heart Associated angina: with unspecified angina Qualified Code(s): I25.119 - Atherosclerotic heart disease of [place] coronary artery with unspecified angina pectoris - Discharge Dispostion Decision to Admit order Date/Time: Decision to Admit Order Category Date Time Status Decision to Admit to Hospital Routine Admission 11/08/17 00:57 Active - Attestations Scribe Attestion: Documentation prepared by Yuliana Tejaad, acting as medical recruiter for Pau Red MD. (Yuliana Tejada)
[2017-11-07] MEDS ORDERED: ACETAMINOPHEN 500 MG TABLET (FP) PO STA (21:37)
[2017-11-07 21:46] VITALS: BMI 29.2
[2017-11-07] MEDS ORDERED: ACETAMINOPHEN 325 MG TABLET (FP) ONE (22:26)
[2017-11-07] MEDS ORDERED: ASPIRIN 81 MG CHEWABLE TABLETS ONE (22:27)
[2017-11-07 23:07] LABS: BASO % 0.9 % (0-2.0); EOS % 11.9 % (0-4.5); HEMATOCRIT 30.9 % (32.4-45.2); HEMOGLOBIN 10.3 GM/dL (10.7-15.3); LYMPH % 24.7 % (8-40); MCH 30.7 pg (25.7-33.7); MCHC 33.3 g/dl (32.0-36.0); MEAN CELL VOLUME 92.3 fl (80-96); MEAN PLT VOLUME 8.2 fl (7.5-11.1); NEUT % 53.5 % (42.8-82.8); PLATELET COUNT 224 K/MM3 (134-434); RBC 3.35 M/mm3 (3.60-5.2); WHITE BLOOD COUNT 8.8 K/mm3 (4.0-10.0)
[2017-11-07 23:18] LABS: INR 1.1 (0.82-1.09); PROTHROMBIN TIME (PATIENT) 12.4 SEC (9.7-13.0)
[2017-11-08 00:10] LABS: ALBUMIN 3.7 g/dl (3.4-5.0); ANION GAP 8 (8-16); BILIRUBIN,TOTAL 0.4 mg/dL (0.2-1.0); BLOOD UREA NITROGEN 39 mg/dL (7-18); CALCIUM 8.1 mg/dL (8.5-10.1); CHLORIDE 98 mmol/L (98-107); CO2 29 mmol/L (21-32); CREATININE 2.8 mg/dL (0.55-1.02); GLUCOSE,RANDOM 181 mg/dL (74-106); MAGNESIUM 2.1 mg/dL (1.8-2.4); POTASSIUM 4.9 mmol/L (3.5-5.1); SGOT/AST 18 U/L (15-37); SGPT/ALT 20 U/L (12-78); SODIUM 135 mmol/L (136-145)
[2017-11-08 00:21] LABS: ALK PHOS 125 U/L (45-117); N-TERMINAL BNP 224.32 pg/ml (5-450)
[2017-11-08] MEDS ORDERED: traMADol HCL 50 MG TABLET PO PRN (01:24)
--- NOTE | 2017-11-08 01:58 | HP ---
CHIEF COMPLAINT: chest pain and L arm pain PCP: Dr. Sunshine HISTORY OF PRESENT ILLNESS: 82 year old female with a hx of CHF, DM, GERD, HTN, HLD, hypothyroidism presents for chest pain and L arm pain of 1 day duration. She states that she was resting when she experienced 7/10 chest pain midsternally that radiated to the left as well as shooting 3/10 L arm pain that radiated from the dorsum of her shoulder to the wrist. She states that she has never experienced this before. She went to her technical trainer's office, but she was not seen by her personal technical trainer. She was given ranolazine and scheduled for a stress test 3 weeks from today. When the chest pain recurred that evening, she decided to come to the ED. Denies associated shortness of breath, nausea, vomiting, diarrhea, fevers, chills. ER course was notable for: (1) EKG NSR w/ sinus arrythmia, new T wave inversions in lead V5, QTc 468 (2) Trop negative (3) CXR negative PAST MEDICAL HISTORY: as listed above PAST SURGICAL HISTORY: denies Social History: Smoking: never Alcohol: never Drugs: never Allergies No Known Allergies Allergy (Verified 11/07/17 21:38) HOME MEDICATIONS: Home Medications Medication Instructions Recorded Ranitidine HCl [Zantac] 150 mg PO BID #60 tablet 06/15/15 Aspirin Coated [Ecotrin -] 81 mg PO DAILY #30 tablet.ec 07/09/16 Carvedilol [Coreg -] 12.5 mg PO BID #180 tablet 07/09/16 Levothyroxine [Synthroid -] 50 mcg PO DAILY #90 tablet 07/09/16 Insulin (Levemir) [Levemir Vial] 12 units SQ HS 02/03/17 Isosorbide Mononitrate [Imdur -] 90 mg PO DAILY #90 tablet 02/04/17 Allopurinol [Zyloprim -] 100 mg PO DAILY 10/02/17 Atorvastatin Ca [Lipitor] 10 mg PO HS 10/02/17 Cinacalcet HCl [Sensipar] 30 mg PO DAILY 10/02/17 Gabapentin [Neurontin -] 300 mg PO HS 10/02/17 Glipizide [Glucotrol -] 5 mg PO TID 10/02/17 hydrALAZINE HCL [Apresoline -] 50 mg PO TID 10/02/17 Acetaminophen [Tylenol .Regular 650 mg PO Q6H PRN tablet 10/05/17 Strength -] Docusate Sodium [Colace -] 100 mg PO BID capsule 10/05/17 Oxycodone HCl/Acetaminophen 1 combo PO Q6H PRN #40 tablet MDD 4 10/05/17 [Percocet 5-325 mg Tablet] Losartan Potassium 50 mg PO DAILY 10/06/17 Miscellaneous Medical Supply 1 each ASDIR #1 mis 10/06/17 [Outpatient Order] Tramadol HCl 25 mg PO Q12H #3 tablet MDD 50 mg 10/06/17 REVIEW OF SYSTEMS CONSTITUTIONAL: Absent: fever, chills, diaphoresis, generalized weakness, malaise, loss of appetite, weight change HEENT: Absent: rhinorrhea, nasal congestion, throat pain, throat swelling, difficulty swallowing, mouth swelling, ear pain, eye pain, visual changes CARDIOVASCULAR: chest pain Absent: , syncope, palpitations, irregular heart rate, lightheadedness, peripheral edema RESPIRATORY: Absent: cough, shortness of breath, dyspnea with exertion, orthopnea, wheezing, stridor, hemoptysis GASTROINTESTINAL: Absent: abdominal pain, abdominal distension, nausea, vomiting, diarrhea, constipation, melena, hematochezia GENITOURINARY: Absent: dysuria, frequency, urgency, hesitancy, hematuria, flank pain, genital pain MUSCULOSKELETAL: neck pain, myalgia of L arm Absent: , arthralgia, joint swelling, back pain, SKIN: Absent: rash, itching, pallor HEMATOLOGIC/IMMUNOLOGIC: Absent: easy bleeding, easy bruising, lymphadenopathy, frequent infections ENDOCRINE: Absent: unexplained weight gain, unexplained weight loss, heat intolerance, cold intolerance NEUROLOGIC: Absent: headache, focal weakness or paresthesias, dizziness, unsteady gait, seizure, mental status changes, bladder or bowel incontinence PSYCHIATRIC: Absent: anxiety, depression, suicidal or homicidal ideation, hallucinations. PHYSICAL EXAMINATION Vital Signs - 24 hr 11/07/17 21:38 Temperature 97.8 F Pulse Rate 66 Respiratory 18 Rate Blood Pressure 141/79 O2 Sat by Pulse 100 Oximetry (%) GENERAL: A&Ox3, no acute distress EYES: PERRLA, EOMI ENT: Moist mucus membranes NECK: No JVD LUNGS: CTA, no wheezes HEART: RRR, soft systolic murmur appreciated in 2nd L intercostal space, chest pain is reproducible on palpation mid-sternally ABDOMEN: Soft, nontender, BS present MUSCULOSKELETAL: No CVA Tenderness EXTREMITIES: 2+ pulses, no edema. NEUROLOGICAL: Cranial nerves II-XII intact. Laboratory Results - last 24 hr 11/07/17 11/07/17 11/07/17 22:49 22:49 22:49 WBC 8.8 RBC 3.35 L Hgb 10.3 L Hct 30.9 L MCV 92.3 MCH 30.7 MCHC 33.3 RDW 14.0 Plt Count 224 D MPV 8.2 Neutrophils % 53.5 D Lymphocytes % 24.7 D Monocytes % 9.0 Eosinophils % 11.9 H Basophils % 0.9 Nucleated RBC % 0 PT with INR 12.40 INR 1.10 Sodium 135 L Potassium 4.9 Chloride 98 Carbon Dioxide 29 Anion Gap 8 BUN 39 H Creatinine 2.8 H Creat Clearance w eGFR 16.18 Random Glucose 181 H Calcium 8.1 L Magnesium 2.1 Total Bilirubin 0.4 D AST 18 ALT 20 Alkaline Phosphatase 125 H Creatine Kinase 118 Troponin I 0.02 B-Natriuretic Peptide 224.32 Total Protein 7.0 Albumin 3.7 ASSESSMENT/PLAN: 82 year old female with a hx of CHF, DM, GERD, HTN, HLD, Hypothyroidism presents to the hospital for chest pain an L arm pain. #Chest pain: r/o ACS, although pain is reproducible on physical exam -EKG shows NSR with sinus arrhythmia, QTc 486, new development of inverted T waves in lead V6 compared to old EKG on October 02 -last echocardiogram on 12/02/2015 was normal with EF 70.5%, no structural abnormalities -first troponin negative, repeat troponin -telemetry monitoring -give ASA 81mg -continue isosorbide mononitrate 90mg PO QD -cards consult Dr. Kiser appreciated -last echo in 2015, repeat echocardiogram -will likely need stress testing #L arm pain: could be related to chest pain, but could also be -cardiac workup as above, as pain started around the same time as chest pain -previous CT neck in 10/04 showed disc space narrowing -get MRI cervical spine to assess nerve impingement -patient was previously given pain control with tramadol, continue tramadol for severe pain, tylenol for mild-moderate pain -continue gabapentin #Acute on Chronic Kidney Disease: baseline around 2.2-2.3 -patient has seen Dr. Tian -no current fluid hydration due to hx of CHF, consider possible mild resuscitation in AM -currently encourage PO water intake -trend BMP in AM -urine lytes -hold nephrotoxic medications #Diabetes Mellitus: glucose was 181 on admission -BGMs ACHS -ISS ACHS #Hypertension: currently normotensive -continue carvedilol 12.5mg BID -continue Hydralazine 50 mg TID #Hyperlipidemia: stable -measure lipid profile -continue atorvastatin 10mg PO #Hypothyroidism: stable -get TSH in setting of chest pain -continue synthroid 50mcg PO QD #GERD/PUD: stable -continue ranitidine 150mg PO BID #Gout: stable -continue allopurinol #FEN -no standing fluids -electrolytes #Prophylaxis -heparin DVT prophylaxis #Disposition -admit tele obs Visit type - Emergency Visit Emergency Visit: Yes ED Registration Date: 11/08/17 Care time: The patient presented to the Emergency Department on the above date and was hospitalized for further evaluation of their emergent condition. - New Patient This patient is new to me today: Yes Date on this admission: 11/08/17 - Critical Care Critical Care patient: No Hospitalist Screening - Colonoscopy Questionnaire Colonoscopy Questionnaire: Colonoscopy Questionnaire - Patient: 50 - 75 years old and never had a screening colonoscopy: Unknown History of colon or rectal polyps, or CA: Unknown History of IBD, Crohn's disease or UC: Unknown History of abdominal radiation therapy as a child: Unknown - Relative: 1 with colon or rectal CA, or polyps at age 60 or younger: Unknown Colon or rectal CA diagnosed at age 45 or younger: Unknown Multiple relatives with colon or rectal CA: Unknown - Outcome: Screening Result: Negative Screen
[2017-11-08] MEDS ORDERED: HEPARIN NA (PORCINE) 5,000 UNITS/ML 1ML VIAL SQ SCH (02:00)
--- NOTE | 2017-11-08 02:31 | PN ---
Teaching Attending Note Name of Resident: Sanket Holley ATTENDING PHYSICIAN STATEMENT I saw and evaluated the patient. I reviewed the resident's note and discussed the case with the resident. I agree with the resident's findings and plan as documented. SUBJECTIVE: Patient is an 82 year old female brought in by EMS, with a significant past medical history of CHF, diabetes, GERD, hypertension, hyperlipidemia, and hypothyroidism who presents to the emergency department for evaluation of chest pain and left arm pain. The patient reports intermittent episodes of left arm pain and left sided neck pain. She describes the left sided neck pain as radiating to the left arm and chest, ranked 3/10 in severity. She has had CT scans to evaluate her neck and is scheduled for nuclear stress test in 3 weeks. OBJECTIVE: Alert and in pain in her left arm. Vital Signs Period Temp Pulse Resp BP Sys/Hernandez Pulse Ox Last 24 Hr 97.8 F 66 18 141/79 100 HEENT: No Jaundice, eye redness or discharge, PERRLA, EOMI. External ears are normal and hearing is grossly intact. No nasal discharge. Neck: Supple, nontender. No palpable adenopathy or thyromegaly. No JVD Chest: Good effort. Point tenderness left chest wall. Clear to auscultation and percussion. Heart: Regular. No S3, rub or murmur Abdomen: Not distended, soft, nontender and no HSM. No rebound or guarding. Normoactive bowel sounds. Ext: Peripheral pulses intact. No leg edema. Skin: Warm and dry. No petechiae, rash or ecchymosis. Neuro: Alert. Oriented x3. Reduced claims adjustor strength in left arm. CN 2-12 grossly intact. Sensation grossly intact in all four extremities and DTR are symmetric. Current Medications Generic Name Dose Route Start Last Admin Trade Name Freq PRN Reason Stop Dose Admin Acetaminophen 500 mg 11/08/17 01:25 Tylenol - PO Q6H PRN PAIN Allopurinol 100 mg 11/08/17 10:00 Zyloprim - PO DAILY DARY Aspirin 81 mg 11/08/17 10:00 Ecotrin - PO DAILY DARY Atorvastatin Calcium 10 mg 11/08/17 22:00 Lipitor - PO HS DARY Carvedilol 12.5 mg 11/08/17 10:00 Coreg - PO BID DARY Cinacalcet 30 mg 11/08/17 10:00 Sensipar - PO DAILY [facility] Docusate Sodium 100 mg 11/08/17 10:00 Colace - PO BID DARY Gabapentin 300 mg 11/08/17 22:00 Neurontin - PO HS [facility] Heparin Sodium (Porcine) 5,000 unit 11/08/17 02:00 Heparin - SQ Q8H-IV DARY Hydralazine HCl 50 mg 11/08/17 06:00 Apresoline - PO TID [facility] Insulin Aspart 0 vial 11/08/17 07:00 Novolog Vial Sliding Scale - SQ ACHS [facility] Protocol Isosorbide Mononitrate 90 mg 11/08/17 10:00 Imdur - PO DAILY DARY Levothyroxine Sodium 50 mcg 11/08/17 10:00 Synthroid - PO DAILY DARY Ranitidine HCl 150 mg 11/08/17 10:00 Zantac - PO BID DARY Tramadol HCl 50 mg 11/08/17 01:24 Ultram - PO Q8H PRN PAIN LEVEL 7 - 10 Home Medications Medication Instructions Recorded Ranitidine HCl [Zantac] 150 mg PO BID #60 tablet 06/15/15 Aspirin Coated [Ecotrin -] 81 mg PO DAILY #30 tablet.ec 07/09/16 Carvedilol [Coreg -] 12.5 mg PO BID #180 tablet 07/09/16 Levothyroxine [Synthroid -] 50 mcg PO DAILY #90 tablet 07/09/16 Insulin (Levemir) [Levemir Vial] 12 units SQ HS 02/03/17 Isosorbide Mononitrate [Imdur -] 90 mg PO DAILY #90 tablet 02/04/17 Allopurinol [Zyloprim -] 100 mg PO DAILY 10/02/17 Atorvastatin Ca [Lipitor] 10 mg PO HS 10/02/17 Cinacalcet HCl [Sensipar] 30 mg PO DAILY 10/02/17 Gabapentin [Neurontin -] 300 mg PO HS 10/02/17 Glipizide [Glucotrol -] 5 mg PO TID 10/02/17 hydrALAZINE HCL [Apresoline -] 50 mg PO TID 10/02/17 Acetaminophen [Tylenol .Regular 650 mg PO Q6H PRN tablet 10/05/17 Strength -] Docusate Sodium [Colace -] 100 mg PO BID capsule 10/05/17 Oxycodone HCl/Acetaminophen 1 combo PO Q6H PRN #40 tablet MDD 4 10/05/17 [Percocet 5-325 mg Tablet] Losartan Potassium 50 mg PO DAILY 10/06/17 Miscellaneous Medical Supply 1 each ASDIR #1 misc 10/06/17 [Outpatient Order] Tramadol HCl 25 mg PO Q12H #3 tablet MDD 50 mg 10/06/17 Laboratory Results - last 24 hr 11/07/17 11/07/17 11/07/17 22:49 22:49 22:49 WBC 8.8 RBC 3.35 L Hgb 10.3 L Hct 30.9 L MCV 92.3 MCH 30.7 MCHC 33.3 RDW 14.0 Plt Count 224 D MPV 8.2 Neutrophils % 53.5 D Lymphocytes % 24.7 D Monocytes % 9.0 Eosinophils % 11.9 H Basophils % 0.9 Nucleated RBC % 0 PT with INR 12.40 INR 1.10 Sodium 135 L Potassium 4.9 Chloride 98 Carbon Dioxide 29 Anion Gap 8 BUN 39 H Creatinine 2.8 H Creat Clearance w eGFR 16.18 Random Glucose 181 H Calcium 8.1 L Magnesium 2.1 Total Bilirubin 0.4 D AST 18 ALT 20 Alkaline Phosphatase 125 H Creatine Kinase 118 Troponin I 0.02 B-Natriuretic Peptide 224.32 Total Protein 7.0 Albumin 3.7 ASSESSMENT AND PLAN: 1. Atypical chest pain - Will admit as an observation case to telemetry to rule out ACS. Thus far no evidence of acute NE. Has T wave changes in V4-6. Will get seral EKG and troponin. May need nuclear stress test sooner. Cardiology consult. Since CT C-spine was negative, will get MRI C-spine and xray of left shoulder. 2. CKD - 3/anemia - Had gianna seen by nephrology in the past. Will avoid nephrotoxins and do basic anemia workup - iron studies, stool guaiac. If not yet done, will need comprehensive nephrologic workup. Better BP control with target <130/80. 3. Continue comprehensive diabetes care, CHF management and check TFTs 4. DVT prophylaxis - Heparin 5000u sq tid 5. Advance directives - Full code
[2017-11-08] MEDS ORDERED: hydrALAZINE HCL 25 MG TABLET (FP) PO SCH (06:00)
[2017-11-08] MEDS ORDERED: INSULIN SLIDING SCALE (NOVOLOG) 1 VIAL SQ SCH ×2 (07:00→11:00)
[2017-11-08] MEDS ORDERED: HEMOQUE TEST 1 EACH EACH ONE (07:08)
[2017-11-08] MEDS ORDERED: hydrALAZINE HCL 25 MG TABLET (FP) ONE (07:09)
[2017-11-08] MEDS ORDERED: HEPARIN NA (PORCINE) 5,000 UNITS/ML 1ML VIAL ONE (07:09)
[2017-11-08] MEDS: LEVOTHYROXINE NA 50 MCG TABLET (FP) PO SCH (07:16)
[2017-11-08] MEDS ORDERED: LEVOTHYROXINE NA 25 MCG TABLET (FP) ONE (07:24)
[2017-11-08] MEDS ORDERED: INSULIN (NOVOLOG) ASPART 100 UNITS/ML 10ML VIAL ONE (07:24)
[2017-11-08 08:44] LABS: HEMATOCRIT 32.8 % (32.4-45.2); MCH 30.9 pg (25.7-33.7); MCHC 33.7 g/dl (32.0-36.0); MEAN CELL VOLUME 91.7 fl (80-96); PLATELET COUNT 232 K/MM3 (134-434); RBC 3.58 M/mm3 (3.60-5.2); RDW 13.9 % (11.6-15.6); WHITE BLOOD COUNT 7.4 K/mm3 (4.0-10.0)
[2017-11-08] MEDS ORDERED: RANITIDINE HCL 150 MG TABLET (FP) ONE (09:00)
[2017-11-08 09:06] LABS: ANION GAP 7 (8-16); BLOOD UREA NITROGEN 39 mg/dL (7-18); CALCIUM 8.6 mg/dL (8.5-10.1); CHLORIDE 100 mmol/L (98-107); CO2 30 mmol/L (21-32); GLUCOSE,RANDOM 180 mg/dL (74-106); POTASSIUM 4.7 mmol/L (3.5-5.1); SODIUM 137 mmol/L (136-145)
[2017-11-08 09:16] LABS: CHOLESTEROL 142 mg/dL (50-200); HDL CHOLESTEROL 60 mg/dL (40-60); TRIGLYCERIDES 84 mg/dL (35-160)
--- NOTE | 2017-11-08 09:17 | CON.CARD ---
Consult Consult Specialty:: Cardiology Referred by:: Hospitalist Reason for Consultation:: Cardiac evaluation - History of Present Illness Chief Complaint: Chest pain History of Present Illness: Patient is an 82 year old female well known to me with underlying history of hypertension, hypercholesterolemia, type 2 diabetes mellitus, osteoarthritis, hypothyroidism, CKD and LV diastolic dysfunction who presents with chest discomfort and left side neck and arm pain. Patient states left arm pain which would radiated up to the chest. She denies shortness of breath or palpitations. She was seen yesterday in the office by our nurse practitioner who prescribed her Ranexa and schedule her for nuclear stress test. She continued to have this symptoms, therefore; she came into the hospital. She denies paroxysmal nocturnal dyspnea or orthopnea. She denies fever or chills. She denies headache or lightheadedness. She denies nausea, vomiting, diarrhea or abdominal pain. - History Source History Provided By: Patient, Significant Other Limitations to Obtaining History: No Limitations - Past Medical History Cardio/Vascular: Yes: CAD (non-obstructive), CHF, HTN, Hyperlipdemia Gastrointestinal: Yes: GERD Renal/: Yes: Renal Inusuff Endocrine: Yes: Diabetes Mellitus (Insulin dependent), Hypothyroidism - Past Surgical History Past Surgical History: Yes: Hysterectomy (BRAXTON, BSO in 1981), Oopherectomy - Alcohol/Substance Use Hx Alcohol Use: No History of Substance Use: reports: None - Smoking History Smoking history: Never smoked Have you smoked in the past 12 months: No Aproximately how many cigarettes per day: 0 - Social History Usual Living Arrangement: With Spouse ADL: Independent History of Recent Travel: Yes (WENT TO [facility] TWO YEARS AGO) Home Medications - Allergies Allergies/Adverse Reactions: Allergies Allergy/AdvReac Type Severity Reaction Status Date / Time No Known Allergies Allergy Verified 11/07/17 21:38 - Home Medications Home Medications: Ambulatory Orders Ranitidine HCl [Zantac] 150 mg PO BID #60 tablet 06/15/15 Aspirin Coated [Ecotrin -] 81 mg PO DAILY #30 tablet.ec 07/09/16 Carvedilol [Coreg -] 12.5 mg PO BID #180 tablet 07/09/16 Levothyroxine [Synthroid -] 50 mcg PO DAILY #90 tablet 07/09/16 Insulin (Levemir) [Levemir Vial] 12 units SQ HS 02/03/17 Isosorbide Mononitrate [Imdur -] 90 mg PO DAILY #90 tablet 02/04/17 Allopurinol [Zyloprim -] 100 mg PO DAILY 10/02/17 Atorvastatin Ca [Lipitor] 20 mg PO HS 10/02/17 Cinacalcet HCl [Sensipar] 30 mg PO DAILY 10/02/17 Gabapentin [Neurontin -] 300 mg PO HS 10/02/17 Glipizide [Glucotrol -] 5 mg PO TID 10/02/17 Acetaminophen [Tylenol .Regular Strength -] 650 mg PO Q6H PRN tablet 10/05/17 Docusate Sodium [Colace -] 100 mg PO BID capsule 10/05/17 Furosemide 80 mg PO DAILY 11/08/17 Gabapentin 200 mg PO AM 11/08/17 Spironolactone [Aldactone] 20 mg PO DAILY 11/08/17 Family Disease History - Family Disease History Family Disease History: Diabetes: Brother, Sister, Other: Father ( in his 50s ? etiology) Review of Systems - Review of Systems Constitutional: denies: Chills, Fever Cardiovascular: reports: Chest Pain. denies: Palpitations, Shortness of Breath Respiratory: denies: Cough, Hemoptysis, Orthopnea, PND, SOB, SOB on Exertion, Wheezing Gastrointestinal: denies: Abdominal Pain, Constipation, Diarrhea, Melena, Nausea , Rectal Bleeding, Vomiting Genitourinary: denies: Dysuria, Flank Pain, Hematuria Neurological: reports: Unsteady Gait, Weakness. denies: Dizziness, Headache, Seizure, Syncope Vital Signs: Vital Signs Temperature 98 F 11/08/17 08:33 Pulse Rate 73 11/08/17 08:33 Respiratory Rate 17 11/08/17 08:33 Blood Pressure 136/59 11/08/17 08:33 O2 Sat by Pulse Oximetry (%) 98 11/08/17 08:33 HENT: Yes: Atraumatic Neck: Yes: Supple Respiratory: Yes: Diminished Gastrointestinal: Yes: Normal Bowel Sounds, Soft. No: Tenderness Cardiovascular: Yes: Regular Rate and Rhythm. No: Gallop JVD: No Carotid Bruit: No PMI: Non-Displaced Heart Sounds: Yes: S1, S2 Edema: No - Other Data Labs, Other Data: CBC, BMP 11/08/17 08:15 11/08/17 08:15 INR, PTT INR 1.10 (0.82-1.09) 11/07/17 22:49 Troponin, BNP 11/07/17 11/08/17 22:49 08:15 Troponin I 0.02 Cancelled B-Natriuretic Peptide 224.32 Normal sinus, lateral T abnormality Echo: Report Reviewed (Suboptima, normal LV function, trace to mild MR) Imaging - Results Chest X-ray: Report Reviewed (Unremarkable) EKG: Report Reviewed Problem List - Problems (1) CAD (coronary artery disease) Code(s): I25.10 - ATHSCL HEART DISEASE OF [place] CORONARY ARTERY W/O ANG PCTRS Qualifiers: Coronary Disease-Associated Artery/Lesion type: [place] artery [place] vs. transplanted heart: [place] heart Associated angina: with unspecified angina Qualified Code(s): I25.119 - Atherosclerotic heart disease of [place] coronary artery with unspecified angina pectoris (2) Chronic renal disease Code(s): N18.9 - CHRONIC KIDNEY DISEASE, UNSPECIFIED Qualifiers: Chronic kidney disease stage: unspecified stage Qualified Code(s): N18.9 - Chronic kidney disease, unspecified (3) Anemia Code(s): D64.9 - ANEMIA, UNSPECIFIED Qualifiers: Anemia type: unspecified type Qualified Code(s): D64.9 - Anemia, unspecified (4) CKD (chronic kidney disease) stage 3, GFR 30-59 ml/min Code(s): N18.3 - CHRONIC KIDNEY DISEASE, STAGE 3 (MODERATE) (5) Diabetes mellitus Code(s): E11.9 - TYPE 2 DIABETES MELLITUS WITHOUT COMPLICATIONS Qualifiers: Diabetes mellitus type: other specified (including JAVAD) Diabetes mellitus termite control representative insulin use: without assisted use Diabetes mellitus complication status: without complication Qualified Code(s): E13.9 - Other specified diabetes mellitus without complications (6) Diverticulosis Code(s): K57.90 - DVRTCLOS OF INTEST, PART UNSP, W/O PERF OR ABSCESS W/O BLEED (7) Endothelial dysfunction of coronary artery Code(s): I99.8 - OTHER DISORDER OF CIRCULATORY SYSTEM (8) Hyperlipidemia Code(s): E78.5 - HYPERLIPIDEMIA, UNSPECIFIED Qualifiers: Hyperlipidemia type: pure hypercholesterolemia (9) Hypertension Code(s): I10 - ESSENTIAL (PRIMARY) HYPERTENSION Qualifiers: Hypertension type: essential hypertension Qualified Code(s): I10 - Essential (primary) hypertension (10) Hypothyroidism Code(s): E03.9 - HYPOTHYROIDISM, UNSPECIFIED Qualifiers: Hypothyroidism type: unspecified Qualified Code(s): E03.9 - Hypothyroidism , unspecified (11) Lung nodule Code(s): R91.1 - SOLITARY PULMONARY NODULE (12) Chest pain Code(s): R07.9 - CHEST PAIN, UNSPECIFIED Qualifiers: Chest pain type: chest pain on breathing Qualified Code(s): R07.1 - Chest pain on breathing Assessment/Plan 1. Chest pain syndrome with underlying non-obstructive CAD, angina pectoris, probable endothelial dysfunction 2. 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 Aortic valve stenosis vs. sclerosis - mild in severity 4. HTN 5. NIDDM 6. Hypercholesterolemia 7. Hypothyroidism 8. Chronic kidney disease 9. Anemia PLAN: 1. Trend troponin. 2. Continue Coreg 12.5 mg BID, Hydralazine 50 mg TID and Imdur 90 mg QD as hemodynamics tolerate. Add Ranexa 500 mg BID 3. Continue Lipitor 10 mg QHS, ASA 81 mg QD 4. If patient remains stable and enzymes are negative, she may be discharged home and followed up with outpatient nuclear stress test. Previously has been non-obstructive Further plans are to follow Apollo Kiser MD
[2017-11-08 09:20] LABS: CREATININE 2.8 mg/dL (0.55-1.02); MAGNESIUM 2.1 mg/dL (1.8-2.4); PHOSPHOROUS 4.4 mg/dL (2.5-4.9)
[2017-11-08 09:35] LABS: INR 1.07 (0.82-1.09); PROTHROMBIN TIME (PATIENT) 12.1 SEC (9.7-13.0)
[2017-11-08] MEDS: RANITIDINE HCL 150 MG TABLET (FP) PO SCH ×2 (09:54→22:33)
[2017-11-08] MEDS: CARVEDILOL 12.5 MG TABLET (FP) PO SCH ×2 (09:54→22:33)
[2017-11-08] MEDS: ISOSORBIDE MONONITRATE 30 MG TAB.SR.24H (FP) PO SCH (09:54)
[2017-11-08] MEDS: DOCUSATE SODIUM 100 MG CAPSULE (FP) PO SCH ×2 (09:54→22:33)
[2017-11-08] MEDS: CINACALCET HCL 30 MG TAB (FP) PO SCH (09:54)
[2017-11-08] MEDS: ASPIRIN COATED 81 MG TABLET.EC PO SCH (09:54)
[2017-11-08] MEDS: ALLOPURINOL 100 MG TABLET (FP) PO SCH (09:54)
[2017-11-08] MEDS: INSULIN SLIDING SCALE (NOVOLOG) 1 VIAL SQ SCH ×3 (12:00→22:34)
--- NOTE | 2017-11-08 13:57 | PN ---
Teaching Attending Note Name of Resident: Marcelo Chowdhury ATTENDING PHYSICIAN STATEMENT I saw and evaluated the patient. I reviewed the resident's note and discussed the case with the resident. I agree with the resident's findings and plan as documented with exceptions below. SUBJECTIVE: Patient seen and examined. left arm pain radiating to upper left chest and left shoulder and left upper back, worse with elevation at the left shoulder, also some neck pain. Denies any nausea, vomiting, abdominal or urinary symptoms otherwise. OBJECTIVE: Vital Signs Period Temp Pulse Resp BP Sys/Hernandez Pulse Ox Last 24 Hr 97.8 F-98 F 66-73 17-18 136-141/59-79 97-100 Intake & Output 11/05/17 11/06/17 11/07/17 11/08/17 23:59 23:59 23:59 23:59 Weight 160 lb General: lying in bed in no acute distress Abdomen:soft, obese, Tenderness in suprapubic and medial LLQ regions, no voluntary or involuntary guarding or rigidity, positive bowel sounds, no CVA tenderness Musculoskeletal: left shoulder elevation limited to 90 degrees, no gross swelling or point tenderness noted. tenderness over left scapular and left upper chest area, no spinal tenderness noted Extremities: no edema Home Medication List Medication Instructions Recorded Confirmed Type Insulin (Levemir) [Levemir Vial] 12 units SQ HS 02/03/17 11/07/17 History Allopurinol [Zyloprim -] 100 mg PO DAILY 10/02/17 11/07/17 History Atorvastatin Ca [Lipitor] 20 mg PO HS 10/02/17 11/08/17 History Cinacalcet HCl [Sensipar] 30 mg PO DAILY 10/02/17 11/07/17 History Gabapentin [Neurontin -] 300 mg PO HS 10/02/17 11/07/17 History Glipizide [Glucotrol -] 5 mg PO TID 10/02/17 11/07/17 History Furosemide 80 mg PO DAILY 11/08/17 11/08/17 History Gabapentin 200 mg PO AM 11/08/17 11/08/17 History Spironolactone [Aldactone] 20 mg PO DAILY 11/08/17 11/08/17 History Active Medications Generic Name Dose Route Start Last Admin Trade Name Freq PRN Reason Stop Dose Admin Acetaminophen 500 mg 11/08/17 01:25 Tylenol - PO Q6H PRN PAIN Allopurinol 100 mg 11/08/17 10:00 11/08/17 09:54 Zyloprim - PO 100 mg DAILY [facility] Administration Aspirin 81 mg 11/08/17 10:00 11/08/17 09:54 Ecotrin - PO 81 mg DAILY [facility] Administration Atorvastatin Calcium 10 mg 11/08/17 22:00 Lipitor - PO HS [facility] Carvedilol 12.5 mg 11/08/17 10:00 11/08/17 09:54 Coreg - PO 12.5 mg BID [facility] Administration Cinacalcet 30 mg 11/08/17 10:00 11/08/17 09:54 Sensipar - PO 30 mg DAILY [facility] Administration Docusate Sodium 100 mg 11/08/17 10:00 11/08/17 09:54 Colace - PO 100 mg BID [facility] Administration Gabapentin 300 mg 11/08/17 22:00 Neurontin - PO HS [facility] Heparin Sodium (Porcine) 5,000 unit 11/08/17 14:00 Heparin - SQ TID [facility] Hydralazine HCl 50 mg 11/08/17 08:03 Apresoline - PO TID [facility] Insulin Aspart 1 vial 11/08/17 11:00 11/08/17 12:00 Novolog Vial Sliding Scale - SQ Not Given ACHS [facility] Protocol Isosorbide Mononitrate 90 mg 11/08/17 10:00 11/08/17 09:54 Imdur - PO 90 mg DAILY [facility] Administration Levothyroxine Sodium 50 mcg 11/08/17 07:15 11/08/17 07:16 Synthroid - PO 50 mcg DAILY@0700 [facility] Administration Ranitidine HCl 150 mg 11/08/17 10:00 11/08/17 09:54 Zantac - PO 150 mg BID [facility] Administration Tramadol HCl 50 mg 11/08/17 01:24 Ultram - PO Q8H PRN PAIN LEVEL 7 - 10 Laboratory Results - last 24 hr 11/07/17 11/07/17 11/07/17 22:49 22:49 22:49 WBC 8.8 RBC 3.35 L Hgb 10.3 L Hct 30.9 L MCV 92.3 MCH 30.7 MCHC 33.3 RDW 14.0 Plt Count 224 D MPV 8.2 Neutrophils % 53.5 D Lymphocytes % 24.7 D Monocytes % 9.0 Eosinophils % 11.9 H Basophils % 0.9 Nucleated RBC % 0 PT with INR 12.40 INR 1.10 Sodium 135 L Potassium 4.9 Chloride 98 Carbon Dioxide 29 Anion Gap 8 BUN 39 H Creatinine 2.8 H Creat Clearance w eGFR 16.18 POC Glucometer Random Glucose 181 H Calcium 8.1 L Phosphorus Magnesium 2.1 Total Bilirubin 0.4 D AST 18 ALT 20 Alkaline Phosphatase 125 H Creatine Kinase 118 CK-MB (CK-2) Troponin I 0.02 B-Natriuretic Peptide 224.32 Total Protein 7.0 Albumin 3.7 Triglycerides Cholesterol Total LDL Cholesterol HDL Cholesterol TSH Urine Creatinine 11/08/17 11/08/17 11/08/17 03:28 07:18 07:45 WBC RBC Hgb Hct MCV MCH MCHC RDW Plt Count MPV Neutrophils % Lymphocytes % Monocytes % Eosinophils % Basophils % Nucleated RBC % PT with INR INR Sodium Potassium Chloride Carbon Dioxide Anion Gap BUN Creatinine Creat Clearance w eGFR POC Glucometer 168.93500 198.85659 Random Glucose Calcium Phosphorus Magnesium Total Bilirubin AST ALT Alkaline Phosphatase Creatine Kinase CK-MB (CK-2) Troponin I B-Natriuretic Peptide Total Protein Albumin Triglycerides Cholesterol Total LDL Cholesterol HDL Cholesterol TSH Urine Creatinine 45.0 11/08/17 11/08/17 11/08/17 08:15 08:15 08:15 WBC 7.4 RBC 3.58 L Hgb 11.0 Hct 32.8 MCV 91.7 MCH 30.9 MCHC 33.7 RDW 13.9 Plt Count 232 MPV 8.0 Neutrophils % Lymphocytes % Monocytes % Eosinophils % Basophils % Nucleated RBC % PT with INR INR Sodium 137 Potassium 4.7 Chloride 100 Carbon Dioxide 30 Anion Gap 7 L BUN 39 H Creatinine 2.8 H Creat Clearance w eGFR POC Glucometer Random Glucose 180 H Calcium 8.6 Phosphorus 4.4 Magnesium 2.1 Total Bilirubin AST ALT Alkaline Phosphatase Creatine Kinase Cancelled 115 CK-MB (CK-2) No Result Required. Troponin I Cancelled < 0.02 B-Natriuretic Peptide Total Protein Albumin Triglycerides Cholesterol Total LDL Cholesterol HDL Cholesterol TSH 0.80 Urine Creatinine 11/08/17 11/08/17 11/08/17 08:15 08:15 12:31 WBC RBC Hgb Hct MCV MCH MCHC RDW Plt Count MPV Neutrophils % Lymphocytes % Monocytes % Eosinophils % Basophils % Nucleated RBC % PT with INR 12.10 INR 1.07 Sodium Potassium Chloride Carbon Dioxide Anion Gap BUN Creatinine Creat Clearance w eGFR POC Glucometer 142.41019 Random Glucose Calcium Phosphorus Magnesium Total Bilirubin AST ALT Alkaline Phosphatase Creatine Kinase CK-MB (CK-2) Troponin I B-Natriuretic Peptide Total Protein Albumin Triglycerides 84 Cholesterol 142 Total LDL Cholesterol 74 HDL Cholesterol 60 TSH Urine Creatinine EKG t wave inversions in lateral leads I, aVL, V3-V6 ASSESSMENT AND PLAN: 82 yof with CHF, DM, GERD, HTN, HLD, hypothyroidism, recent fall and hip fracture, d/saúl to rehab comes with left arm pain radiating to chest, Abnormal EKG and 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 r/o ACS given abnormal EKG. 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 Cardiology consult, 2D echo. FOllow up for stress test given lateral lead changes. Repeat EKG. Continue ASA/statin/coreg/ISMN. MRI C-spine and xray left shoulder. HOld ARB/aldactone. On hydralazine, monitor BP. Renal consult Dr. Tian. Bladder scan x 1, urine lytes, renal/bladder US. Check u/a. Bowel regimen. ISS, diabetic diet. Resume levemir based on blood sugars. DVTPPX with heparin Dispo admit to inpatient given above. Plan discussed with patient and daughter. Discussed with Dr. Sunshine, transferred care to his service.
--- NOTE | 2017-11-08 14:23 | EKG ---
Test Reason : Blood Pressure : / mmHG Vent. Rate : 065 BPM Atrial Rate : 065 BPM P-R Int : 132 ms QRS Dur : 076 ms QT Int : 450 ms P-R-T Axes : 014 061 110 degrees QTc Int : 468 ms NORMAL SINUS RHYTHM WITH SINUS ARRHYTHMIA T WAVE ABNORMALITY, CONSIDER LATERAL ISCHEMIA ABNORMAL ECG WHEN COMPARED WITH ECG OF 02-OCT-2017 13:18, T WAVE INVERSION NOW EVIDENT IN LATERAL LEADS Confirmed by KEO SCHROEDER, ANGLE ([id number]) on 11/08/2017 2:23:30 PM Referred By: Confirmed By:ANGLE CROWLEY MD
--- NOTE | 2017-11-08 14:28 | EKG ---
Test Reason : Blood Pressure : / mmHG Vent. Rate : 065 BPM Atrial Rate : 065 BPM P-R Int : 118 ms QRS Dur : 080 ms QT Int : 456 ms P-R-T Axes : 019 058 108 degrees QTc Int : 474 ms NORMAL SINUS RHYTHM WITH SINUS ARRHYTHMIA T WAVE ABNORMALITY, CONSIDER LATERAL ISCHEMIA PROLONGED QT ABNORMAL ECG WHEN COMPARED WITH ECG OF 07-NOV-2017 22:41, NO SIGNIFICANT CHANGE WAS FOUND Confirmed by ANGLE CROWLEY MD ([id number]) on 11/08/2017 2:28:04 PM Referred By: Confirmed By:ANGLE CROWLEY MD
[2017-11-08] MEDS: HEPARIN NA (PORCINE) 5,000 UNITS/ML 1ML VIAL SQ SCH ×2 (14:47→22:33)
[2017-11-08] MEDS: hydrALAZINE HCL 50 MG TABLET (FP) PO SCH ×2 (14:48→22:33)
--- NOTE | 2017-11-08 15:30 | PN ---
Physical Exam: SUBJECTIVE: Patient seen and examined at bedside. Pt complains of mild L neck and arm pain. Worse with movement and radiated to chest. OBJECTIVE: Vital Signs Period Temp Pulse Resp BP Sys/Hernandez Pulse Ox Last 24 Hr 97.8 F-98.1 F 66-77 17-18 114-141/59-79 97-100 GENERAL: The patient is awake, alert, and fully oriented, in no acute distress. HEAD: Normal with no signs of trauma. EYES: PERRL, extraocular movements intact, sclera anicteric, conjunctiva clear. No ptosis. ENT: oropharynx clear without exudates, moist mucous membranes. NECK: Trachea midline, full range of motion, supple. LUNGS: Breath sounds equal, clear to auscultation bilaterally, no wheezes, no crackles, no accessory muscle use. HEART: Regular rate and rhythm, S1, S2 with 3/6 systolic murmur, no rub or gallop. ABDOMEN: Soft, tender to palpation LLQ/suprapubic, nondistended, normoactive bowel sounds, no guarding, no rebound, no hepatosplenomegaly, no masses. EXTREMITIES: 2+ pulses, warm, well-perfused, no edema. NEUROLOGICAL: Cranial nerves II through XII grossly intact. Normal speech, gait not observed. PSYCH: Normal mood, normal affect. SKIN: Warm, dry, normal turgor, no rashes or lesions noted Laboratory Results - last 24 hr 11/07/17 11/07/17 11/07/17 22:49 22:49 22:49 WBC 8.8 RBC 3.35 L Hgb 10.3 L Hct 30.9 L MCV 92.3 MCH 30.7 MCHC 33.3 RDW 14.0 Plt Count 224 D MPV 8.2 Neutrophils % 53.5 D Lymphocytes % 24.7 D Monocytes % 9.0 Eosinophils % 11.9 H Basophils % 0.9 Nucleated RBC % 0 PT with INR 12.40 INR 1.10 Sodium 135 L Potassium 4.9 Chloride 98 Carbon Dioxide 29 Anion Gap 8 BUN 39 H Creatinine 2.8 H Creat Clearance w eGFR 16.18 POC Glucometer Random Glucose 181 H Calcium 8.1 L Phosphorus Magnesium 2.1 Total Bilirubin 0.4 D AST 18 ALT 20 Alkaline Phosphatase 125 H Creatine Kinase 118 CK-MB (CK-2) Troponin I 0.02 B-Natriuretic Peptide 224.32 Total Protein 7.0 Albumin 3.7 Triglycerides Cholesterol Total LDL Cholesterol HDL Cholesterol TSH Urine Creatinine 11/08/17 11/08/17 11/08/17 03:28 07:18 07:45 WBC RBC Hgb Hct MCV MCH MCHC RDW Plt Count MPV Neutrophils % Lymphocytes % Monocytes % Eosinophils % Basophils % Nucleated RBC % PT with INR INR Sodium Potassium Chloride Carbon Dioxide Anion Gap BUN Creatinine Creat Clearance w eGFR POC Glucometer 168.54545 198.30213 Random Glucose Calcium Phosphorus Magnesium Total Bilirubin AST ALT Alkaline Phosphatase Creatine Kinase CK-MB (CK-2) Troponin I B-Natriuretic Peptide Total Protein Albumin Triglycerides Cholesterol Total LDL Cholesterol HDL Cholesterol TSH Urine Creatinine 45.0 11/08/17 11/08/17 11/08/17 08:15 08:15 08:15 WBC 7.4 RBC 3.58 L Hgb 11.0 Hct 32.8 MCV 91.7 MCH 30.9 MCHC 33.7 RDW 13.9 Plt Count 232 MPV 8.0 Neutrophils % Lymphocytes % Monocytes % Eosinophils % Basophils % Nucleated RBC % PT with INR INR Sodium 137 Potassium 4.7 Chloride 100 Carbon Dioxide 30 Anion Gap 7 L BUN 39 H Creatinine 2.8 H Creat Clearance w eGFR POC Glucometer Random Glucose 180 H Calcium 8.6 Phosphorus 4.4 Magnesium 2.1 Total Bilirubin AST ALT Alkaline Phosphatase Creatine Kinase Cancelled 115 CK-MB (CK-2) No Result Required. Troponin I Cancelled < 0.02 B-Natriuretic Peptide Total Protein Albumin Triglycerides Cholesterol Total LDL Cholesterol HDL Cholesterol TSH 0.80 Urine Creatinine 11/08/17 11/08/17 11/08/17 08:15 08:15 12:31 WBC RBC Hgb Hct MCV MCH MCHC RDW Plt Count MPV Neutrophils % Lymphocytes % Monocytes % Eosinophils % Basophils % Nucleated RBC % PT with INR 12.10 INR 1.07 Sodium Potassium Chloride Carbon Dioxide Anion Gap BUN Creatinine Creat Clearance w eGFR POC Glucometer 142.97667 Random Glucose Calcium Phosphorus Magnesium Total Bilirubin AST ALT Alkaline Phosphatase Creatine Kinase CK-MB (CK-2) Troponin I B-Natriuretic Peptide Total Protein Albumin Triglycerides 84 Cholesterol 142 Total LDL Cholesterol 74 HDL Cholesterol 60 TSH Urine Creatinine Active Medications Generic Name Dose Route Start Last Admin Trade Name Freq PRN Reason Stop Dose Admin Acetaminophen 500 mg 11/08/17 01:25 Tylenol - PO Q6H PRN PAIN Allopurinol 100 mg 11/08/17 10:00 11/08/17 09:54 Zyloprim - PO 100 mg DAILY [facility] Administration Aspirin 81 mg 11/08/17 10:00 11/08/17 09:54 Ecotrin - PO 81 mg DAILY [facility] Administration Atorvastatin Calcium 10 mg 11/08/17 22:00 Lipitor - PO HS [facility] Carvedilol 12.5 mg 11/08/17 10:00 11/08/17 09:54 Coreg - PO 12.5 mg BID [facility] Administration Cinacalcet 30 mg 11/08/17 10:00 11/08/17 09:54 Sensipar - PO 30 mg DAILY [facility] Administration Docusate Sodium 100 mg 11/08/17 10:00 11/08/17 09:54 Colace - PO 100 mg BID [facility] Administration Gabapentin 300 mg 11/08/17 22:00 Neurontin - PO HS [facility] Heparin Sodium (Porcine) 5,000 unit 11/08/17 14:00 11/08/17 14:47 Heparin - SQ 5,000 unit TID [facility] Administration Hydralazine HCl 50 mg 11/08/17 08:03 11/08/17 14:48 Apresoline - PO 50 mg TID [facility] Administration Insulin Aspart 1 vial 11/08/17 11:00 11/08/17 12:00 Novolog Vial Sliding Scale - SQ Not Given ACHS [facility] Protocol Isosorbide Mononitrate 90 mg 11/08/17 10:00 11/08/17 09:54 Imdur - PO 90 mg DAILY [facility] Administration Levothyroxine Sodium 50 mcg 11/08/17 07:15 11/08/17 07:16 Synthroid - PO 50 mcg DAILY@0700 [facility] Administration Ranitidine HCl 150 mg 11/08/17 10:00 11/08/17 09:54 Zantac - PO 150 mg BID [facility] Administration Tramadol HCl 50 mg 11/08/17 01:24 Ultram - PO Q8H PRN PAIN LEVEL 7 - 10 ASSESSMENT/PLAN: 82 year old female with a hx of CHF, DM, GERD, HTN, HLD, Hypothyroidism presents to the hospital for chest pain an L arm pain. #ACS r/o -L arm pain with radiation to the neck and chest. Worse on active and passive movement -EKG shows NSR with sinus arrhythmia, new twi in lateral leads compared to old EKG on October 02 -last echo (12/02/2015) normal with EF 70.5%, no structural abnormalities -trop neg x2 -telemetry monitoring -give ASA 81mg -continue isosorbide mononitrate 90mg PO QD -cards consult Dr. Kiser appreciated -last echo in 2015, repeat echo -ACS ruled out -will likely need stress testing #L arm pain -likely related to chest pain -cardiac workup as above, as pain started around the same time as chest pain -previous CT neck in 10/04 showed disc space narrowing -f/u MRI cervical spine -patient was previously given pain control with tramadol, continue tramadol for severe pain, tylenol for mild-moderate pain -continue gabapentin #Acute on CKD -baseline around 2.2-2.3 -patient has been seen by Dr. Tian -no current fluid hydration due to hx of CHF, consider possible mild resuscitation in AM -BMP stable from admission -hold nephrotoxic medications #Diabetes Mellitus -BGMs ACHS -ISS ACHS #HTN -currently normotensive -HOld ARB/aldactone -carvedilol 12.5mg BID -Hydralazine 50 mg TID #HLD -lipids wnl -continue atorvastatin 10mg PO #Hypothyroidism stable -TSH 0.8 -continue synthroid 50mcg PO QD #GERD/PUD -continue home ranitidine 150mg PO BID #Gout -continue allopurinol #FEN -no standing fluids -lytes wnl -cardiac diet #Prophylaxis -heparin DVT prophylaxis #Constipation -bowel regimen #Disposition -admit tele obs Marcelo Chowdhury MD PGY-1 IM Visit type - Emergency Visit Emergency Visit: Yes ED Registration Date: 11/08/17 Care time: The patient presented to the Emergency Department on the above date and was hospitalized for further evaluation of their emergent condition. - New Patient This patient is new to me today: Yes Date on this admission: 11/08/17 - Critical Care Critical Care patient: No - Discharge Referral Referred to [facility] No
[2017-11-08] MEDS ORDERED: INSULIN REGULAR HUMAN 100 UNITS/ML *VIAL ONE (16:30)
[2017-11-08] MEDS: ATORVASTATIN CA 10 MG TABLET (FP) PO SCH (22:33)
[2017-11-08] MEDS: GABAPENTIN 300 MG CAPSULE (FP) PO SCH (22:33)
[2017-11-08 23:15] LABS: URINE APPEARANCE CLEAR; URINE BILIRUBIN NEGATIVE (<2.0 mg/dL); URINE COLOR STRAW; URINE GLUCOSE (UA) NEGATIVE (NEGATIVE); URINE KETONE NEGATIVE (NEGATIVE); URINE NITRITE NEGATIVE (NEGATIVE); URINE PROTEIN NEGATIVE (NEGATIVE); URINE UROBILINOGEN NEGATIVE mg/dL (0.2-1.0)
[2017-11-08 23:16] LABS: URINE LEUK ESTERASE 1+ (NEGATIVE)
[2017-11-08 23:29] LABS: EPI CELLS RARE /HPF (FEW); URINE HYALINE CAST 1 /lpf
[2017-11-09] MEDS: hydrALAZINE HCL 50 MG TABLET (FP) PO SCH ×3 (06:13→21:43)
[2017-11-09] MEDS: HEPARIN NA (PORCINE) 5,000 UNITS/ML 1ML VIAL SQ SCH ×3 (06:13→21:44)
[2017-11-09] MEDS: LEVOTHYROXINE NA 50 MCG TABLET (FP) PO SCH (06:13)
[2017-11-09] MEDS: INSULIN SLIDING SCALE (NOVOLOG) 1 VIAL SQ SCH ×4 (06:14→23:14)
[2017-11-09] MEDS ORDERED: INSULIN (NOVOLOG) ASPART 100 UNITS/ML 10ML VIAL ONE (07:01)
[2017-11-09 07:46] LABS: HEMATOCRIT 31.9 % (32.4-45.2); HEMOGLOBIN 10.9 GM/dL (10.7-15.3); MCH 31.6 pg (25.7-33.7); MCHC 34.3 g/dl (32.0-36.0); MEAN CELL VOLUME 92.1 fl (80-96); PLATELET COUNT 189 K/MM3 (134-434); RBC 3.46 M/mm3 (3.60-5.2); RDW 13.8 % (11.6-15.6); WHITE BLOOD COUNT 8.8 K/mm3 (4.0-10.0)
[2017-11-09 08:47] LABS: ANION GAP 9 (8-16); BLOOD UREA NITROGEN 43 mg/dL (7-18); CALCIUM 8.4 mg/dL (8.5-10.1); CHLORIDE 103 mmol/L (98-107); CO2 27 mmol/L (21-32); GLUCOSE,RANDOM 161 mg/dL (74-106); POTASSIUM 4.5 mmol/L (3.5-5.1); SODIUM 139 mmol/L (136-145)
--- NOTE | 2017-11-09 09:52 | PN ---
Progress Note, Physician Chief Complaint: Pt w/o CP, palpitations, SOB, abd pain, N, V. - Current Medication List Current Medications: Active Medications Acetaminophen (Tylenol -) 500 mg PO Q6H PRN PRN Reason: PAIN Allopurinol (Zyloprim -) 100 mg PO DAILY [facility] Last Admin: 11/08/17 09:54 Dose: 100 mg Aspirin (Ecotrin -) 81 mg PO DAILY [facility] Last Admin: 11/08/17 09:54 Dose: 81 mg Atorvastatin Calcium (Lipitor -) 10 mg PO HS [facility] Last Admin: 11/08/17 22:33 Dose: 10 mg Carvedilol (Coreg -) 12.5 mg PO BID [facility] Last Admin: 11/08/17 22:33 Dose: 12.5 mg Cinacalcet (Sensipar -) 30 mg PO DAILY [facility] Last Admin: 11/08/17 09:54 Dose: 30 mg Docusate Sodium (Colace -) 100 mg PO BID [facility] Last Admin: 11/08/17 22:33 Dose: 100 mg Gabapentin (Neurontin -) 300 mg PO HS [facility] Last Admin: 11/08/17 22:33 Dose: 300 mg Heparin Sodium (Porcine) (Heparin -) 5,000 unit SQ TID [facility] Last Admin: 11/09/17 06:13 Dose: 5,000 unit Hydralazine HCl (Apresoline -) 50 mg PO TID [facility] Last Admin: 11/09/17 06:13 Dose: 50 mg Sodium Chloride (Normal Saline -) 1,000 mls @ 42 mls/hr IV ASDIR [facility] Insulin Aspart (Novolog Vial Sliding Scale -) 1 vial SQ ACHS [facility]; Protocol Last Admin: 11/09/17 06:14 Dose: 2 units Isosorbide Mononitrate (Imdur -) 90 mg PO DAILY [facility] Last Admin: 11/08/17 09:54 Dose: 90 mg Levothyroxine Sodium (Synthroid -) 50 mcg PO DAILY@0700 [facility] Last Admin: 11/09/17 06:13 Dose: 50 mcg Ranitidine HCl (Zantac -) 150 mg PO BID [facility] Last Admin: 11/08/17 22:33 Dose: 150 mg Tramadol HCl (Ultram -) 50 mg PO Q8H PRN PRN Reason: PAIN LEVEL 7 - 10 - Objective Vital Signs: Vital Signs Temperature 98.5 F 11/09/17 06:00 Pulse Rate 65 11/09/17 06:00 Respiratory Rate 20 11/09/17 06:00 Blood Pressure 132/55 11/09/17 06:00 O2 Sat by Pulse Oximetry (%) 97 11/09/17 00:00 Constitutional: Yes: No Distress, Calm HENT: Yes: Other (dry oral mucosa) Cardiovascular: Yes: Regular Rate and Rhythm, S1, S2 Respiratory: Yes: Regular, CTA Bilaterally. No: Rales Gastrointestinal: Yes: Normal Bowel Sounds, Soft, Abdomen, Obese. No: Tenderness Edema: No Neurological: Yes: Alert, Oriented Labs: CBC, BMP 11/09/17 07:17 11/09/17 07:21 INR, PTT INR 1.07 (0.82-1.09) 11/08/17 08:15 Problem List - Problems (1) ANDRÉS (acute kidney injury) Code(s): N17.9 - ACUTE KIDNEY FAILURE, UNSPECIFIED (2) CRF (chronic renal failure) Code(s): N18.9 - CHRONIC KIDNEY DISEASE, UNSPECIFIED (3) Acute urinary retention Code(s): R33.8 - OTHER RETENTION OF URINE (4) CAD (coronary artery disease) Assessment/Plan: non-obstructive Code(s): I25.10 - ATHSCL HEART DISEASE OF [place] CORONARY ARTERY W/O ANG PCTRS Qualifiers: Coronary Disease-Associated Artery/Lesion type: [place] artery [place] vs. transplanted heart: [place] heart Associated angina: with unspecified angina Qualified Code(s): I25.119 - Atherosclerotic heart disease of [place] coronary artery with unspecified angina pectoris (5) Anemia Code(s): D64.9 - ANEMIA, UNSPECIFIED Qualifiers: Anemia type: unspecified type Qualified Code(s): D64.9 - Anemia, unspecified (6) CHF (congestive heart failure) Code(s): I50.9 - HEART FAILURE, UNSPECIFIED (7) Diabetes mellitus Code(s): E11.9 - TYPE 2 DIABETES MELLITUS WITHOUT COMPLICATIONS Qualifiers: Diabetes mellitus type: other specified (including JAVAD) Diabetes mellitus adjunct faculty for medical terminology insulin use: without adjunct faculty for medical terminology use Diabetes mellitus complication status: without complication Qualified Code(s): E13.9 - Other specified diabetes mellitus without complications (8) Left arm pain Code(s): M79.602 - PAIN IN LEFT ARM (9) Hyperlipidemia Code(s): E78.5 - HYPERLIPIDEMIA, UNSPECIFIED Qualifiers: Hyperlipidemia type: pure hypercholesterolemia Qualified Code(s): E78.00 - Pure hypercholesterolemia, unspecified; E78.0 - Pure hypercholesterolemia (10) Hypertension Code(s): I10 - ESSENTIAL (PRIMARY) HYPERTENSION Qualifiers: Hypertension type: essential hypertension Qualified Code(s): I10 - Essential (primary) hypertension (11) Hypothyroidism Code(s): E03.9 - HYPOTHYROIDISM, UNSPECIFIED Qualifiers: Hypothyroidism type: unspecified Qualified Code(s): E03.9 - Hypothyroidism , unspecified Assessment/Plan Cardio consult appreciated. Renal consult appreciated. IVF I encouraged PO fluid intake consult AM Labs PT
[2017-11-09] MEDS ORDERED: PT OWN MED DRAWER 7, Y5N ONE (10:02)
[2017-11-09] MEDS: DOCUSATE SODIUM 100 MG CAPSULE (FP) PO SCH ×2 (10:25→21:44)
[2017-11-09] MEDS: ISOSORBIDE MONONITRATE 30 MG TAB.SR.24H (FP) PO SCH (10:26)
[2017-11-09] MEDS: ASPIRIN COATED 81 MG TABLET.EC PO SCH (10:26)
[2017-11-09] MEDS: CARVEDILOL 12.5 MG TABLET (FP) PO SCH ×2 (10:26→21:43)
[2017-11-09] MEDS: CINACALCET HCL 30 MG TAB (FP) PO SCH (10:27)
[2017-11-09] MEDS: SODIUM CHLORIDE 1,000 ML IV SCH (10:27)
[2017-11-09] MEDS: RANITIDINE HCL 150 MG TABLET (FP) PO SCH ×2 (10:28→21:44)
[2017-11-09] MEDS: ALLOPURINOL 100 MG TABLET (FP) PO SCH (10:28)
--- NOTE | 2017-11-09 10:50 | PN ---
Progress Note, Physician Chief Complaint: Feels better History of Present Illness: Patient was seen and examined. Awake and alert. Chart was reviewed. Chest pain diminished. Denies SOB or palpitations - Current Medication List Current Medications: Active Medications Acetaminophen (Tylenol -) 500 mg PO Q6H PRN PRN Reason: PAIN Allopurinol (Zyloprim -) 100 mg PO DAILY [facility] Last Admin: 11/09/17 10:28 Dose: 100 mg Aspirin (Ecotrin -) 81 mg PO DAILY [facility] Last Admin: 11/09/17 10:26 Dose: 81 mg Atorvastatin Calcium (Lipitor -) 10 mg PO HS [facility] Last Admin: 11/08/17 22:33 Dose: 10 mg Carvedilol (Coreg -) 12.5 mg PO BID [facility] Last Admin: 11/09/17 10:26 Dose: 12.5 mg Cinacalcet (Sensipar -) 30 mg PO DAILY [facility] Last Admin: 11/09/17 10:27 Dose: 30 mg Docusate Sodium (Colace -) 100 mg PO BID [facility] Last Admin: 11/09/17 10:25 Dose: 100 mg Gabapentin (Neurontin -) 300 mg PO HS [facility] Last Admin: 11/08/17 22:33 Dose: 300 mg Heparin Sodium (Porcine) (Heparin -) 5,000 unit SQ TID [facility] Last Admin: 11/09/17 06:13 Dose: 5,000 unit Hydralazine HCl (Apresoline -) 50 mg PO TID [facility] Last Admin: 11/09/17 06:13 Dose: 50 mg Sodium Chloride (Normal Saline -) 1,000 mls @ 42 mls/hr IV ASDIR [facility] Last Admin: 11/09/17 10:27 Dose: 42 mls/hr Insulin Aspart (Novolog Vial Sliding Scale -) 1 vial SQ ACHS [facility]; Protocol Last Admin: 11/09/17 06:14 Dose: 2 units Isosorbide Mononitrate (Imdur -) 90 mg PO DAILY [facility] Last Admin: 11/09/17 10:26 Dose: 90 mg Levothyroxine Sodium (Synthroid -) 50 mcg PO DAILY@0700 [facility] Last Admin: 11/09/17 06:13 Dose: 50 mcg Ranitidine HCl (Zantac -) 150 mg PO BID [facility] Last Admin: 11/09/17 10:28 Dose: 150 mg Tramadol HCl (Ultram -) 50 mg PO Q8H PRN PRN Reason: PAIN LEVEL 7 - 10 - Objective Vital Signs: Vital Signs Temperature 98.5 F 11/09/17 06:00 Pulse Rate 65 11/09/17 06:00 Respiratory Rate 20 11/09/17 06:00 Blood Pressure 132/55 11/09/17 06:00 O2 Sat by Pulse Oximetry (%) 97 11/09/17 00:00 HENT: Yes: Atraumatic Neck: Yes: Supple Cardiovascular: Yes: Regular Rate and Rhythm, S1, S2 Respiratory: Yes: CTA Bilaterally Gastrointestinal: Yes: Normal Bowel Sounds, Soft. No: Tenderness Edema: No Additional Findings/Remarks: - Review of Systems Constitutional: denies: Chills, Fever Cardiovascular: reports: Chest Pain. denies: Palpitations, Shortness of Breath Respiratory: denies: Cough, Hemoptysis, Orthopnea, PND, SOB, SOB on Exertion, Wheezing Gastrointestinal: denies: Abdominal Pain, Constipation, Diarrhea, Melena, Nausea , Rectal Bleeding, Vomiting Genitourinary: denies: Dysuria, Flank Pain, Hematuria Neurological: reports: Unsteady Gait, Weakness. denies: Dizziness, Headache, Seizure, Syncope Labs: CBC, BMP 11/09/17 07:17 11/09/17 07:21 INR, PTT INR 1.07 (0.82-1.09) 11/08/17 08:15 Laboratory Results - last 24 hr 11/08/17 11/08/17 11/08/17 16:25 17:25 22:00 WBC RBC Hgb Hct MCV MCH MCHC RDW Plt Count MPV Neutrophils % Neutrophils % (Manual) Band Neutrophils % Lymphocytes % Lymphocytes % (Manual) Monocytes % (Manual) Eosinophils % (Manual) Basophils % (Manual) Myelocytes % (Man) Promyelocytes % (Man) Blast Cells % (Manual) Nucleated RBC % Metamyelocytes Platelet Estimate Anisocytosis Macrocytosis Sodium Potassium Chloride Carbon Dioxide Anion Gap BUN Creatinine POC Glucometer [phone] Random Glucose Calcium Urine Color Straw Urine Appearance Clear Urine pH 7.0 Ur Specific [place] 1.008 Urine Protein Negative Urine Glucose (UA) Negative Urine Ketones Negative Urine Blood Negative Urine Nitrite Negative Urine Bilirubin Negative Urine Urobilinogen Negative Ur Leukocyte Esterase 1+ H Urine WBC (Auto) 9 Urine RBC (Auto) <1 Ur Epithelial Cells Rare Hyaline Casts 1 Ur Random Sodium 52 Ur Random Potassium 25.4 Ur Random Chloride 53 11/09/17 11/09/17 11/09/17 07:17 07:21 12:25 WBC 8.8 RBC 3.46 L Hgb 10.9 Hct 31.9 L MCV 92.1 MCH 31.6 MCHC 34.3 RDW 13.8 Plt Count 189 MPV 8.0 Neutrophils % No Result Required. Neutrophils % (Manual) 55.6 Band Neutrophils % 0.0 Lymphocytes % No Result Required. Lymphocytes % (Manual) 24.2 Monocytes % (Manual) 8 Eosinophils % (Manual) 11.1 H Basophils % (Manual) 0.0 Myelocytes % (Man) 0 Promyelocytes % (Man) 0 Blast Cells % (Manual) 0 Nucleated RBC % 0 Metamyelocytes 0 Platelet Estimate Normal Anisocytosis 1+ Macrocytosis 1+ Sodium 139 Potassium 4.5 Chloride 103 Carbon Dioxide 27 Anion Gap 9 BUN 43 H Creatinine 3.0 H POC Glucometer 236 Random Glucose 161 H Calcium 8.4 L Urine Color Urine Appearance Urine pH Ur Specific [place] Urine Protein Urine Glucose (UA) Urine Ketones Urine Blood Urine Nitrite Urine Bilirubin Urine Urobilinogen Ur Leukocyte Esterase Urine WBC (Auto) Urine RBC (Auto) Ur Epithelial Cells Hyaline Casts Ur Random Sodium Ur Random Potassium Ur Random Chloride Problem List - Problems (1) CAD (coronary artery disease) Code(s): I25.10 - ATHSCL HEART DISEASE OF [place] CORONARY ARTERY W/O ANG PCTRS Qualifiers: Coronary Disease-Associated Artery/Lesion type: [place] artery [place] vs. transplanted heart: [place] heart Associated angina: with unspecified angina Qualified Code(s): I25.119 - Atherosclerotic heart disease of [place] coronary artery with unspecified angina pectoris (2) Chronic renal disease Code(s): N18.9 - CHRONIC KIDNEY DISEASE, UNSPECIFIED Qualifiers: Chronic kidney disease stage: unspecified stage Qualified Code(s): N18.9 - Chronic kidney disease, unspecified (3) Anemia Code(s): D64.9 - ANEMIA, UNSPECIFIED Qualifiers: Anemia type: unspecified type Qualified Code(s): D64.9 - Anemia, unspecified (4) CKD (chronic kidney disease) stage 3, GFR 30-59 ml/min Code(s): N18.3 - CHRONIC KIDNEY DISEASE, STAGE 3 (MODERATE) (5) Diabetes mellitus Code(s): E11.9 - TYPE 2 DIABETES MELLITUS WITHOUT COMPLICATIONS Qualifiers: Diabetes mellitus type: other specified (including JAVAD) Diabetes mellitus terminal system operator insulin use: without snf use Diabetes mellitus complication status: without complication Qualified Code(s): E13.9 - Other specified diabetes mellitus without complications (6) Diverticulosis Code(s): K57.90 - DVRTCLOS OF INTEST, PART UNSP, W/O PERF OR ABSCESS W/O BLEED (7) Endothelial dysfunction of coronary artery Code(s): I99.8 - OTHER DISORDER OF CIRCULATORY SYSTEM (8) Hyperlipidemia Code(s): E78.5 - HYPERLIPIDEMIA, UNSPECIFIED Qualifiers: Hyperlipidemia type: pure hypercholesterolemia Qualified Code(s): E78.00 - Pure hypercholesterolemia, unspecified; E78.0 - Pure hypercholesterolemia (9) Hypertension Code(s): I10 - ESSENTIAL (PRIMARY) HYPERTENSION Qualifiers: Hypertension type: essential hypertension Qualified Code(s): I10 - Essential (primary) hypertension (10) Hypothyroidism Code(s): E03.9 - HYPOTHYROIDISM, UNSPECIFIED Qualifiers: Hypothyroidism type: unspecified Qualified Code(s): E03.9 - Hypothyroidism , unspecified (11) Lung nodule Code(s): R91.1 - SOLITARY PULMONARY NODULE (12) Chest pain Code(s): R07.9 - CHEST PAIN, UNSPECIFIED Qualifiers: Chest pain type: chest pain on breathing Qualified Code(s): R07.1 - Chest pain on breathing Assessment/Plan 1. Chest pain syndrome with underlying non-obstructive CAD, angina pectoris, probable endothelial dysfunction 2. 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 Aortic valve stenosis vs. sclerosis - mild in severity 4. HTN 5. NIDDM 6. Hypercholesterolemia 7. Hypothyroidism 8. Chronic kidney disease 9. Anemia PLAN: 1. Trend troponin. 2. Continue Coreg 12.5 mg BID, Hydralazine 50 mg TID and Imdur 90 mg QD as hemodynamics tolerate. Add Ranexa 500 mg BID 3. Continue Lipitor 10 mg QHS, ASA 81 mg QD 4. If patient remains stable and enzymes are negative, she may be discharged home and followed up with outpatient nuclear stress test. Previously has been non-obstructive (patient had both nuclear stress and cardiac catheterization) Further plans are to follow Apollo Kiser MD
--- NOTE | 2017-11-09 11:15 | CONSULT ---
Consult Consult Specialty:: Nephrology ( Jorge/ Jaylan) Referred by:: Dr. Sunshine Reason for Consultation:: Chronic [place] disease - History of Present Illness Chief Complaint: 82 year old female with a hx of CHF, DM, GERD, HTN, HLD, hypothyroidism presented for chest pain and L arm pain of 1 day duration. She states that she has never experienced this before. She went to her slice plug cutter operator helper' s office, but she was not seen by her personal slice plug cutter operator helper. She was given ranolazine and scheduled for a stress test 3 weeks from today. When the chest pain recurred that evening, she decided to come to the ED. Denies associated shortness of breath, nausea, vomiting, diarrhea, fevers, chills. - History Source History Provided By: Patient - Past Medical History Cardio/Vascular: Yes: CAD (non-obstructive), CHF, HTN, Hyperlipdemia Gastrointestinal: Yes: GERD Renal/: Yes: Renal Inusuff ...: No Endocrine: Yes: Diabetes Mellitus (Insulin dependent), Hypothyroidism - Past Surgical History Past Surgical History: Yes: Hysterectomy (BRAXTON, BSO in 1981), Oopherectomy - Alcohol/Substance Use Hx Alcohol Use: No History of Substance Use: reports: None - Smoking History Smoking history: Never smoked Have you smoked in the past 12 months: No Aproximately how many cigarettes per day: 0 - Social History Usual Living Arrangement: With Spouse ADL: Independent History of Recent Travel: Yes (WENT TO [facility] TWO YEARS AGO) Home Medications - Allergies Allergies/Adverse Reactions: Allergies Allergy/AdvReac Type Severity Reaction Status Date / Time No Known Allergies Allergy Verified 11/07/17 21:38 - Home Medications Home Medications: Ambulatory Orders Ranitidine HCl [Zantac] 150 mg PO BID #60 tablet 06/15/15 Aspirin Coated [Ecotrin -] 81 mg PO DAILY #30 tablet.ec 07/09/16 Carvedilol [Coreg -] 12.5 mg PO BID #180 tablet 07/09/16 Levothyroxine [Synthroid -] 50 mcg PO DAILY #90 tablet 07/09/16 Insulin (Levemir) [Levemir Vial] 12 units SQ HS 02/03/17 Isosorbide Mononitrate [Imdur -] 90 mg PO DAILY #90 tablet 08/19/17 Allopurinol [Zyloprim -] 100 mg PO DAILY 10/02/17 Atorvastatin Ca [Lipitor] 20 mg PO HS 10/02/17 Cinacalcet HCl [Sensipar] 30 mg PO DAILY 10/02/17 Gabapentin [Neurontin -] 300 mg PO HS 10/02/17 Glipizide [Glucotrol -] 5 mg PO TID 10/02/17 Acetaminophen [Tylenol .Regular Strength -] 650 mg PO Q6H PRN tablet 10/05/17 Docusate Sodium [Colace -] 100 mg PO BID capsule 10/05/17 Furosemide 80 mg PO DAILY 11/08/17 Gabapentin 200 mg PO AM 11/08/17 Spironolactone [Aldactone] 20 mg PO DAILY 11/08/17 Family Disease History - Family Disease History Family Disease History: Diabetes: Brother, Sister, Other: Father ( in his 50s ? etiology) Review of Systems - Review of Systems Constitutional: reports: Weakness Cardiovascular: reports: Chest Pain Genitourinary: denies: Burning, Dysuria, Frequency Neurological: reports: No Symptoms Psychiatric: reports: No Symptoms Physical Exam Vital Signs: Vital Signs Temperature 98.5 F 11/09/17 06:00 Pulse Rate 65 11/09/17 06:00 Respiratory Rate 20 11/09/17 06:00 Blood Pressure 132/55 11/09/17 06:00 O2 Sat by Pulse Oximetry (%) 97 11/09/17 00:00 Constitutional: Yes: Well Nourished, No Distress Eyes: Yes: Conjunctiva Clear HENT: Yes: Normocephalic Neck: Yes: Trachea Midline Cardiovascular: Yes: S1, S2 Respiratory: Yes: CTA Bilaterally, Diminished Gastrointestinal: Yes: Normal Bowel Sounds, Soft Renal/: Yes: Bladder Distention ([place] catheter in place.) Extremities: No: Calf Tenderness Edema: No Neurological: Yes: Alert, Oriented Labs: CBC, BMP 11/09/17 07:17 11/09/17 07:21 Assessment/Plan 82 year old female with a hx of CHF, DM, GERD, HTN, HLD, hypothyroidism presents for chest pain and L arm pain of 1 day duration. She states that she was resting when she experienced 7/10 chest pain midsternally that radiated to the left as well as shooting 3/10 L arm pain that radiated from the dorsum of her shoulder to the wrist. She states that she has never experienced this before. She went to her slice plug cutter operator helper's office, but she was not seen by her personal slice plug cutter operator helper. She was given ranolazine and scheduled for a stress test 3 weeks from today. When the chest pain recurred that evening, she decided to come to the ED. Denies associated shortness of breath, nausea, vomiting, diarrhea, fevers, chills. There is acute worsening of Chronic kidney disease. most likely Hemodynamic. The role of acute urinary retention and obstructive post renal cause for the acute renal failure can not be discounted. The patient has possible neurogenic bladder Neurogenic bladder. Will Monotor the real functions with you. ? eval for acute urinary retention. Thank you. Tiffany Patel MD
[2017-11-09] MEDS: RANOLAZINE E.R. 500 MG TABLET (FP) PO SCH ×2 (12:37→22:02)
[2017-11-09 13:23] LABS: ANISOCYTOSIS 1+; MACROCYTOSIS 1+; PLATELET ESTIMATE NORMAL
--- NOTE | 2017-11-09 19:13 | CON.GU ---
Consult - History of Present Illness History of Present Illness: 82 yo female admitted with chest and shoulder pain. Describes decreased urine volume of late. Bladder sono with elevated pvr of >700cc. No hydro. Pt is diabetic - Past Medical History Cardio/Vascular: Yes: CAD (non-obstructive), CHF, HTN, Hyperlipdemia Gastrointestinal: Yes: GERD Renal/: Yes: Renal Inusuff ...: No Endocrine: Yes: Diabetes Mellitus (Insulin dependent), Hypothyroidism - Past Surgical History Past Surgical History: Yes: Hysterectomy (BRAXTON, BSO in 1981), Oopherectomy - Alcohol/Substance Use Hx Alcohol Use: No History of Substance Use: reports: None - Smoking History Smoking history: Never smoked Have you smoked in the past 12 months: No Aproximately how many cigarettes per day: 0 - Social History Usual Living Arrangement: With Spouse ADL: Independent History of Recent Travel: Yes (WENT TO [facility] TWO YEARS AGO) Home Medications - Allergies Allergies/Adverse Reactions: Allergies Allergy/AdvReac Type Severity Reaction Status Date / Time No Known Allergies Allergy Verified 11/07/17 21:38 - Home Medications Home Medications: Ambulatory Orders Ranitidine HCl [Zantac] 150 mg PO BID #60 tablet 06/15/15 Aspirin Coated [Ecotrin -] 81 mg PO DAILY #30 tablet.ec 07/09/16 Carvedilol [Coreg -] 12.5 mg PO BID #180 tablet 07/09/16 Levothyroxine [Synthroid -] 50 mcg PO DAILY #90 tablet 07/09/16 Insulin (Levemir) [Levemir Vial] 12 units SQ HS 02/03/17 Isosorbide Mononitrate [Imdur -] 90 mg PO DAILY #90 tablet 02/04/17 Allopurinol [Zyloprim -] 100 mg PO DAILY 10/02/17 Atorvastatin Ca [Lipitor] 20 mg PO HS 10/02/17 Cinacalcet HCl [Sensipar] 30 mg PO DAILY 10/02/17 Gabapentin [Neurontin -] 300 mg PO HS 10/02/17 Glipizide [Glucotrol -] 5 mg PO TID 10/02/17 Acetaminophen [Tylenol .Regular Strength -] 650 mg PO Q6H PRN tablet 10/05/17 Docusate Sodium [Colace -] 100 mg PO BID capsule 10/05/17 Furosemide 80 mg PO DAILY 11/08/17 Gabapentin 200 mg PO AM 11/08/17 Spironolactone [Aldactone] 20 mg PO DAILY 11/08/17 Family Disease History - Family Disease History Family Disease History: Diabetes: Brother, Sister, Other: Father ( in his 50s ? 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 recommend starting flomax and urecholine. repeat voiding trial tomorrow Code(s): R33.9 - RETENTION OF URINE, UNSPECIFIED
[2017-11-09] MEDS: TAMSULOSIN HCL 0.4 MG CAP.ER.24H (FP) PO SCH (20:30)
[2017-11-09] MEDS: ATORVASTATIN CA 10 MG TABLET (FP) PO SCH (21:43)
[2017-11-09] MEDS: GABAPENTIN 300 MG CAPSULE (FP) PO SCH (21:44)
[2017-11-09] MEDS: BETHANECHOL CHLORIDE 25 MG TABLET PO SCH (21:44)
[2017-11-10] MEDS: LEVOTHYROXINE NA 50 MCG TABLET (FP) PO SCH (06:42)
[2017-11-10] MEDS: HEPARIN NA (PORCINE) 5,000 UNITS/ML 1ML VIAL SQ SCH ×3 (06:42→22:17)
[2017-11-10] MEDS: BETHANECHOL CHLORIDE 25 MG TABLET PO SCH ×3 (06:42→22:17)
[2017-11-10] MEDS: hydrALAZINE HCL 50 MG TABLET (FP) PO SCH ×3 (06:42→22:17)
[2017-11-10] MEDS: INSULIN SLIDING SCALE (NOVOLOG) 1 VIAL SQ SCH ×4 (06:44→22:41)
[2017-11-10 07:30] LABS: HEMATOCRIT 31.7 % (32.4-45.2); HEMOGLOBIN 10.6 GM/dL (10.7-15.3); MCH 30.7 pg (25.7-33.7); MCHC 33.3 g/dl (32.0-36.0); MEAN CELL VOLUME 92.2 fl (80-96); MEAN PLT VOLUME 8.2 fl (7.5-11.1); PLATELET COUNT 188 K/MM3 (134-434); RBC 3.44 M/mm3 (3.60-5.2); RDW 14.3 % (11.6-15.6); WHITE BLOOD COUNT 9.5 K/mm3 (4.0-10.0)
[2017-11-10] MEDS: TAMSULOSIN HCL 0.4 MG CAP.ER.24H (FP) PO SCH (08:26)
[2017-11-10] MEDS ORDERED: TAMSULOSIN HCL 0.4 MG CAP.ER.24H (FP) PO SCH (08:30)
[2017-11-10 08:34] LABS: ALBUMIN 3.5 g/dl (3.4-5.0); ANION GAP 11 (8-16); BILIRUBIN,TOTAL 0.5 mg/dL (0.2-1.0); BLOOD UREA NITROGEN 47 mg/dL (7-18); CHLORIDE 103 mmol/L (98-107); CO2 23 mmol/L (21-32); CREATININE 2.9 mg/dL (0.55-1.02); GLUCOSE,RANDOM 190 mg/dL (74-106); POTASSIUM 4.7 mmol/L (3.5-5.1); SGOT/AST 20 U/L (15-37); SGPT/ALT 18 U/L (12-78); SODIUM 137 mmol/L (136-145)
[2017-11-10 08:35] LABS: ALK PHOS 111 U/L (45-117); TOT PROT 6.8 g/dl (6.4-8.2)
--- NOTE | 2017-11-10 10:27 | PN ---
Progress Note, Physician Chief Complaint: Pt w/o CP, palpitations, SOB, abd pain, N, V. - Current Medication List Current Medications: Active Medications Acetaminophen (Tylenol -) 500 mg PO Q6H PRN PRN Reason: PAIN Allopurinol (Zyloprim -) 100 mg PO DAILY [facility] Last Admin: 11/09/17 10:28 Dose: 100 mg Aspirin (Ecotrin -) 81 mg PO DAILY [facility] Last Admin: 11/09/17 10:26 Dose: 81 mg Atorvastatin Calcium (Lipitor -) 10 mg PO HS [facility] Last Admin: 11/09/17 21:43 Dose: 10 mg Bethanechol Chloride (Urecholine -) 25 mg PO TID [facility] Last Admin: 11/10/17 06:42 Dose: 25 mg Carvedilol (Coreg -) 12.5 mg PO BID [facility] Last Admin: 11/09/17 21:43 Dose: 12.5 mg Cinacalcet (Sensipar -) 30 mg PO DAILY [facility] Last Admin: 11/09/17 10:27 Dose: 30 mg Docusate Sodium (Colace -) 100 mg PO BID [facility] Last Admin: 11/09/17 21:44 Dose: 100 mg Gabapentin (Neurontin -) 300 mg PO [facility] Last Admin: 11/09/17 21:44 Dose: 300 mg Heparin Sodium (Porcine) (Heparin -) 5,000 unit SQ TID [facility] Last Admin: 11/10/17 06:42 Dose: 5,000 unit Hydralazine HCl (Apresoline -) 50 mg PO TID [facility] Last Admin: 11/10/17 06:42 Dose: 50 mg Sodium Chloride (Normal Saline -) 1,000 mls @ 42 mls/hr IV ASDIR [facility] Last Admin: 11/09/17 10:27 Dose: 42 mls/hr Insulin Aspart (Novolog Vial Sliding Scale -) 1 vial SQ ACHS [facility]; Protocol Last Admin: 11/10/17 06:44 Dose: 2 units Isosorbide Mononitrate (Imdur -) 90 mg PO DAILY [facility] Last Admin: 11/09/17 10:26 Dose: 90 mg Levothyroxine Sodium (Synthroid -) 50 mcg PO DAILY@0700 [facility] Last Admin: 11/10/17 06:42 Dose: 50 mcg Ranitidine HCl (Zantac -) 150 mg PO BID [facility] Last Admin: 11/09/17 21:44 Dose: 150 mg Ranolazine (Ranexa -) 500 mg PO BID [facility] Last Admin: 11/09/17 22:02 Dose: 500 mg Tamsulosin HCl (Flomax -) 0.4 mg PO DAILY@0830 [facility] Last Admin: 11/10/17 08:26 Dose: 0.4 mg Tramadol HCl (Ultram -) 50 mg PO Q8H PRN PRN Reason: PAIN LEVEL 7 - 10 Last Admin: 11/09/17 19:32 Dose: 50 mg - Objective Vital Signs: Vital Signs Temperature 97.4 F L 11/10/17 09:37 Pulse Rate 75 11/10/17 09:37 Respiratory Rate 20 11/10/17 09:37 Blood Pressure 110/61 11/10/17 09:37 O2 Sat by Pulse Oximetry (%) 95 11/09/17 21:00 Constitutional: Yes: No Distress, Calm Cardiovascular: Yes: Regular Rate and Rhythm, S1, S2 Respiratory: Yes: Regular, CTA Bilaterally. No: Rales Gastrointestinal: Yes: Normal Bowel Sounds, Soft, Abdomen, Obese. No: Tenderness Edema: No Neurological: Yes: Alert, Oriented Labs: CBC, BMP 11/10/17 06:00 11/10/17 06:00 INR, PTT INR 1.07 (0.82-1.09) 11/08/17 08:15 Problem List - Problems (1) ANDRÉS (acute kidney injury) Code(s): N17.9 - ACUTE KIDNEY FAILURE, UNSPECIFIED (2) CRF (chronic renal failure) Code(s): N18.9 - CHRONIC KIDNEY DISEASE, UNSPECIFIED (3) Acute urinary retention Code(s): R33.8 - OTHER RETENTION OF URINE (4) CAD (coronary artery disease) Code(s): I25.10 - ATHSCL HEART DISEASE OF [place] CORONARY ARTERY W/O ANG PCTRS Qualifiers: Coronary Disease-Associated Artery/Lesion type: [place] artery [place] vs. transplanted heart: [place] heart Associated angina: with unspecified angina Qualified Code(s): I25.119 - Atherosclerotic heart disease of [place] coronary artery with unspecified angina pectoris (5) Anemia Code(s): D64.9 - ANEMIA, UNSPECIFIED Qualifiers: Anemia type: unspecified type Qualified Code(s): D64.9 - Anemia, unspecified (6) CHF (congestive heart failure) Code(s): I50.9 - HEART FAILURE, UNSPECIFIED (7) Diabetes mellitus Code(s): E11.9 - TYPE 2 DIABETES MELLITUS WITHOUT COMPLICATIONS Qualifiers: Diabetes mellitus type: other specified (including JAVAD) Diabetes mellitus terminal worker insulin use: without group home use Diabetes mellitus complication status: without complication Qualified Code(s): E13.9 - Other specified diabetes mellitus without complications (8) Left arm pain Code(s): M79.602 - PAIN IN LEFT ARM (9) Hyperlipidemia Code(s): E78.5 - HYPERLIPIDEMIA, UNSPECIFIED Qualifiers: Hyperlipidemia type: pure hypercholesterolemia Qualified Code(s): E78.00 - Pure hypercholesterolemia, unspecified; E78.0 - Pure hypercholesterolemia (10) Hypertension Code(s): I10 - ESSENTIAL (PRIMARY) HYPERTENSION Qualifiers: Hypertension type: essential hypertension Qualified Code(s): I10 - Essential (primary) hypertension (11) Hypothyroidism Code(s): E03.9 - HYPOTHYROIDISM, UNSPECIFIED Qualifiers: Hypothyroidism type: unspecified Qualified Code(s): E03.9 - Hypothyroidism , unspecified Assessment/Plan Cardio consult and f/u appreciated. Renal consult and f/u appreciated. consult appreciated; to [place] anfad monitor for TOV IVF I encouraged PO fluid intake AM Labs PT evaluation Case was d/w pt's nurse. bladder scan by night nurse; if 500 ml or more of urine to reinsert [place].
[2017-11-10] MEDS: CINACALCET HCL 30 MG TAB (FP) PO SCH (11:30)
[2017-11-10] MEDS: RANITIDINE HCL 150 MG TABLET (FP) PO SCH ×2 (11:30→22:17)
[2017-11-10] MEDS: DOCUSATE SODIUM 100 MG CAPSULE (FP) PO SCH ×2 (11:30→22:17)
[2017-11-10] MEDS: RANOLAZINE E.R. 500 MG TABLET (FP) PO SCH ×2 (11:30→22:17)
[2017-11-10] MEDS: CARVEDILOL 12.5 MG TABLET (FP) PO SCH ×2 (11:30→22:17)
[2017-11-10] MEDS: ISOSORBIDE MONONITRATE 30 MG TAB.SR.24H (FP) PO SCH (11:31)
[2017-11-10] MEDS: ALLOPURINOL 100 MG TABLET (FP) PO SCH (11:31)
[2017-11-10] MEDS: ASPIRIN COATED 81 MG TABLET.EC PO SCH (11:31)
[2017-11-10] MEDS: SODIUM CHLORIDE 1,000 ML IV SCH ×3 (12:12→22:41)
--- NOTE | 2017-11-10 13:55 | PN ---
Progress Note (short form) - Note Progress Note: Renal follow up for CKD/ANDRÉS Pt seen and examined at the bedside reports CP is improved no sob, N/V/D [place] removed this am, has yet to void Vital Signs Temperature 97.4 F L 11/10/17 09:37 Pulse Rate 75 11/10/17 09:37 Respiratory Rate 20 11/10/17 09:37 Blood Pressure 110/61 11/10/17 09:37 O2 Sat by Pulse Oximetry (%) 95 11/09/17 21:00 Intake & Output 11/07/17 11/08/17 11/09/17 11/10/17 23:59 23:59 23:59 23:59 Intake Total 882 869 2059 Output Total 700 2100 400 Balance -500 -1129 772 Weight 72.575 kg NAD awake and alert RRR CTA soft, obese, NT/ND No LE edema CBC, BMP 11/10/17 06:00 11/10/17 06:00 Current Medications Acetaminophen (Tylenol -) 500 mg PO Q6H PRN PRN Reason: PAIN Allopurinol (Zyloprim -) 100 mg PO DAILY [facility] Last Admin: 11/10/17 11:31 Dose: 100 mg Aspirin (Ecotrin -) 81 mg PO DAILY [facility] Last Admin: 11/10/17 11:31 Dose: 81 mg Atorvastatin Calcium (Lipitor -) 10 mg PO HS [facility] Last Admin: 11/09/17 21:43 Dose: 10 mg Bethanechol Chloride (Urecholine -) 25 mg PO TID [facility] Last Admin: 11/10/17 06:42 Dose: 25 mg Carvedilol (Coreg -) 12.5 mg PO BID [facility] Last Admin: 11/10/17 11:30 Dose: 12.5 mg Cinacalcet (Sensipar -) 30 mg PO DAILY [facility] Last Admin: 11/10/17 11:30 Dose: 30 mg Docusate Sodium (Colace -) 100 mg PO BID [facility] Last Admin: 11/10/17 11:30 Dose: 100 mg Gabapentin (Neurontin -) 300 mg PO HS [facility] Last Admin: 11/09/17 21:44 Dose: 300 mg Heparin Sodium (Porcine) (Heparin -) 5,000 unit SQ TID [facility] Last Admin: 11/10/17 06:42 Dose: 5,000 unit Hydralazine HCl (Apresoline -) 50 mg PO TID [facility] Last Admin: 11/10/17 06:42 Dose: 50 mg Sodium Chloride (Normal Saline -) 1,000 mls @ 42 mls/hr IV ASDIR [facility] Last Admin: 11/10/17 12:12 Dose: Not Given Insulin Aspart (Novolog Vial Sliding Scale -) 1 vial SQ ACHS [facility]; Protocol Last Admin: 11/10/17 12:15 Dose: 8 units Isosorbide Mononitrate (Imdur -) 90 mg PO DAILY [facility] Last Admin: 11/10/17 11:31 Dose: 90 mg Levothyroxine Sodium (Synthroid -) 50 mcg PO DAILY@0700 [facility] Last Admin: 11/10/17 06:42 Dose: 50 mcg Ranitidine HCl (Zantac -) 150 mg PO BID [facility] Last Admin: 11/10/17 11:30 Dose: 150 mg Ranolazine (Ranexa -) 500 mg PO BID [facility] Last Admin: 11/10/17 11:30 Dose: 500 mg Tamsulosin HCl (Flomax -) 0.4 mg PO DAILY@0830 [facility] Last Admin: 11/10/17 08:26 Dose: 0.4 mg Tramadol HCl (Ultram -) 50 mg PO Q8H PRN PRN Reason: PAIN LEVEL 7 - 10 Last Admin: 11/09/17 19:32 Dose: 50 mg This is a 82 year old woman with PMhx of CHF, DM, Hypertension, HLD, Hypothyrodism, CKD stage 4 who presented with CP and admitted for r/o ACS with elevated Cr and urinary retention #CKD stage 4 (last outpatient Cr was 2.7 in August) #Chest pain r/o ACS #Urinary retention #HTN #CHF Renal function slightly improved but close to baseline d/c IVF at this time but withhold lasix and aldaactone for one more day Trial of void on going on Flomax urology following can resume diuretics as needed or on discharge Wm Tian DO
[2017-11-10] MEDS: GABAPENTIN 300 MG CAPSULE (FP) PO SCH (22:17)
[2017-11-10] MEDS: ATORVASTATIN CA 10 MG TABLET (FP) PO SCH (22:17)
[2017-11-11] MEDS: LEVOTHYROXINE NA 50 MCG TABLET (FP) PO SCH (06:45)
[2017-11-11] MEDS: HEPARIN NA (PORCINE) 5,000 UNITS/ML 1ML VIAL SQ SCH ×3 (06:45→22:54)
[2017-11-11] MEDS: hydrALAZINE HCL 50 MG TABLET (FP) PO SCH ×3 (06:45→22:21)
[2017-11-11] MEDS: BETHANECHOL CHLORIDE 25 MG TABLET PO SCH ×3 (06:45→22:22)
[2017-11-11] MEDS: INSULIN SLIDING SCALE (NOVOLOG) 1 VIAL SQ SCH ×4 (06:45→22:24)
[2017-11-11] MEDS: TAMSULOSIN HCL 0.4 MG CAP.ER.24H (FP) PO SCH (08:42)
[2017-11-11 09:02] LABS: ANION GAP 9 (8-16); BLOOD UREA NITROGEN 42 mg/dL (7-18); CALCIUM 7.8 mg/dL (8.5-10.1); CHLORIDE 105 mmol/L (98-107); CO2 25 mmol/L (21-32); CREATININE 2.7 mg/dL (0.55-1.02); GLUCOSE,RANDOM 200 mg/dL (74-106); POTASSIUM 5.1 mmol/L (3.5-5.1); SODIUM 139 mmol/L (136-145)
[2017-11-11] MEDS ORDERED: PT OWN MED DRAWER 7, Y5N ONE (10:24)
--- NOTE | 2017-11-11 10:28 | PN ---
Progress Note (short form) - Note Progress Note: Chief Complaint: Events noted, notes reviewed, denies any further chest pain, denies any dyspnea, complaining of head and leg tremors etiology of which is unclear History of Present Illness: Seen and examined. Events noted, notes reviewed, denies any further chest pain, denies any dyspnea, complaining of head and leg tremors etiology of which is unclear LHC & coronary angiography performed 01/04/16 revealed non-obstructive CAD MPI study dated 11/12/2015 revealed No ischemia with normal LV function LVEF 79% Echocardiography dated 11/08/2017 revealed moderate LVH normal LV size and function, MR and TR Medications: Current Medications Acetaminophen (Tylenol -) 500 mg PO Q6H PRN PRN Reason: PAIN Allopurinol (Zyloprim -) 100 mg PO DAILY [facility] Last Admin: 11/11/17 10:29 Dose: 100 mg Aspirin (Ecotrin -) 81 mg PO DAILY [facility] Last Admin: 11/11/17 10:29 Dose: 81 mg Atorvastatin Calcium (Lipitor -) 10 mg PO [facility] Last Admin: 11/10/17 22:17 Dose: 10 mg Bethanechol Chloride (Urecholine -) 25 mg PO TID [facility] Last Admin: 11/11/17 06:45 Dose: 25 mg Carvedilol (Coreg -) 12.5 mg PO BID [facility] Last Admin: 11/11/17 10:29 Dose: 12.5 mg Cinacalcet (Sensipar -) 30 mg PO DAILY [facility] Last Admin: 11/11/17 10:29 Dose: 30 mg Docusate Sodium (Colace -) 100 mg PO BID [facility] Last Admin: 11/11/17 10:29 Dose: 100 mg Gabapentin (Neurontin -) 300 mg PO HS [facility] Last Admin: 11/10/17 22:17 Dose: 300 mg Heparin Sodium (Porcine) (Heparin -) 5,000 unit SQ TID [facility] Last Admin: 11/11/17 06:45 Dose: 5,000 unit Hydralazine HCl (Apresoline -) 50 mg PO TID [facility] Last Admin: 11/11/17 06:45 Dose: 50 mg Sodium Chloride (Normal Saline -) 1,000 mls @ 42 mls/hr IV ASDIR [facility] Last Admin: 11/10/17 22:41 Dose: 42 mls/hr Insulin Aspart (Novolog Vial Sliding Scale -) 1 vial SQ ACHS [facility]; Protocol Last Admin: 11/11/17 06:45 Dose: 4 units Isosorbide Mononitrate (Imdur -) 90 mg PO DAILY [facility] Last Admin: 11/11/17 10:29 Dose: 90 mg Levothyroxine Sodium (Synthroid -) 50 mcg PO DAILY@0700 [facility] Last Admin: 11/11/17 06:45 Dose: 50 mcg Ranitidine HCl (Zantac -) 150 mg PO BID [facility] Last Admin: 11/11/17 10:29 Dose: 150 mg Ranolazine (Ranexa -) 500 mg PO BID [facility] Last Admin: 11/11/17 10:29 Dose: 500 mg Tamsulosin HCl (Flomax -) 0.4 mg PO DAILY@0830 [facility] Last Admin: 11/11/17 08:42 Dose: 0.4 mg Tramadol HCl (Ultram -) 50 mg PO Q8H PRN PRN Reason: PAIN LEVEL 7 - 10 Last Admin: 11/09/17 19:32 Dose: 50 mg Review of Systems - Review of Systems Constitutional: no symptoms reported Respiratory: denies: Cough or Sputum Production Cardiovascular: as noted above Gastrointestinal: denies Nausea, Vomiting, Diarrhea, Constipation or Abdominal Pain Genitourinary: No symptoms reported Musculoskeletal: Degenerative Joint Disease Endocrine: NIDDM and Hypothyroidism Vital Signs: Last Vital Signs Temp Pulse Resp BP Pulse Ox 97.4 F L 75 22 98/52 99 11/11/17 08:48 11/11/17 08:48 11/11/17 08:48 11/11/17 08:48 11/10/17 21:00 Intake & Output 11/08/17 11/09/17 11/10/17 11/11/17 23:59 23:59 23:59 23:59 Intake Total 874 161 2336 704 Output Total 700 2100 790 500 Balance -500 -1129 1546 204 Constitutional: No Distress, Calm Neck: Supple Negative JVD No Bruit Respiratory: Diminished Breath Sounds at the Bases Cardiovascular: S1 S2 Regular Rate and Rhythm [place] 2/6 [place] Gastrointestinal: Soft Benign Normal Bowel Sounds Ext: No Edema Labs: CBC, BMP 11/10/17 06:00 11/11/17 07:00 Assessment/Plan ASSESSMENT: 1. 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 Diastolic LV dysfunction with chronic LV class I- II NYHA classification LV failure, compensated/euvolemic 3. Aortic valve sclerosis/stenosis mild in severity 4. HTN 5. NIDDM 6. Hypercholesterolemia 7. Hypothyroidism 8. Acute on chronic KD 9. Anemia PLAN: 1. Continue Coreg 2. Ideally should be on ACEI or ARBS pending renal function stabilization 3. Continue Imdur and Ranexa 4. Continue Hydralazine 5. Continue Lipitor 6. Continue ASA 7. Ambulate and can be D/C home from the cardiovascular point of view and additional evaluation as outpatient Troy Ortega M.D.
[2017-11-11] MEDS: ALLOPURINOL 100 MG TABLET (FP) PO SCH (10:29)
[2017-11-11] MEDS: ASPIRIN COATED 81 MG TABLET.EC PO SCH (10:29)
[2017-11-11] MEDS: RANITIDINE HCL 150 MG TABLET (FP) PO SCH ×2 (10:29→22:21)
[2017-11-11] MEDS: ISOSORBIDE MONONITRATE 30 MG TAB.SR.24H (FP) PO SCH (10:29)
[2017-11-11] MEDS: DOCUSATE SODIUM 100 MG CAPSULE (FP) PO SCH ×2 (10:29→22:22)
[2017-11-11] MEDS: RANOLAZINE E.R. 500 MG TABLET (FP) PO SCH ×2 (10:29→22:54)
[2017-11-11] MEDS: CARVEDILOL 12.5 MG TABLET (FP) PO SCH ×2 (10:29→22:21)
[2017-11-11] MEDS: CINACALCET HCL 30 MG TAB (FP) PO SCH (10:29)
--- NOTE | 2017-11-11 11:01 | PN ---
Progress Note, Physician Chief Complaint: Pt w/o CP, SOB, abd pain, N, V. Pt states that has palpitations when walking, no CP, no dizziness. - Current Medication List Current Medications: Active Medications Acetaminophen (Tylenol -) 500 mg PO Q6H PRN PRN Reason: PAIN Allopurinol (Zyloprim -) 100 mg PO DAILY [facility] Last Admin: 11/11/17 10:29 Dose: 100 mg Aspirin (Ecotrin -) 81 mg PO DAILY [facility] Last Admin: 11/11/17 10:29 Dose: 81 mg Atorvastatin Calcium (Lipitor -) 10 mg PO HS [facility] Last Admin: 11/10/17 22:17 Dose: 10 mg Bethanechol Chloride (Urecholine -) 25 mg PO TID [facility] Last Admin: 11/11/17 06:45 Dose: 25 mg Carvedilol (Coreg -) 12.5 mg PO BID [facility] Last Admin: 11/11/17 10:29 Dose: 12.5 mg Cinacalcet (Sensipar -) 30 mg PO DAILY [facility] Last Admin: 11/11/17 10:29 Dose: 30 mg Docusate Sodium (Colace -) 100 mg PO BID [facility] Last Admin: 11/11/17 10:29 Dose: 100 mg Gabapentin (Neurontin -) 300 mg PO [facility] Last Admin: 11/10/17 22:17 Dose: 300 mg Heparin Sodium (Porcine) (Heparin -) 5,000 unit SQ TID [facility] Last Admin: 11/11/17 06:45 Dose: 5,000 unit Hydralazine HCl (Apresoline -) 50 mg PO TID [facility] Last Admin: 11/11/17 06:45 Dose: 50 mg Insulin Aspart (Novolog Vial Sliding Scale -) 1 vial SQ [facility]; Protocol Last Admin: 11/11/17 06:45 Dose: 4 units Isosorbide Mononitrate (Imdur -) 90 mg PO DAILY [facility] Last Admin: 11/11/17 10:29 Dose: 90 mg Levothyroxine Sodium (Synthroid -) 50 mcg PO DAILY@0700 [facility] Last Admin: 11/11/17 06:45 Dose: 50 mcg Ranitidine HCl (Zantac -) 150 mg PO BID [facility] Last Admin: 11/11/17 10:29 Dose: 150 mg Ranolazine (Ranexa -) 500 mg PO BID [facility] Last Admin: 11/11/17 10:29 Dose: 500 mg Tamsulosin HCl (Flomax -) 0.4 mg PO DAILY@0830 [facility] Last Admin: 11/11/17 08:42 Dose: 0.4 mg Tramadol HCl (Ultram -) 50 mg PO Q8H PRN PRN Reason: PAIN LEVEL 7 - 10 Last Admin: 11/09/17 19:32 Dose: 50 mg - Objective Vital Signs: Vital Signs Temperature 97.4 F L 11/11/17 08:48 Pulse Rate 75 11/11/17 08:48 Respiratory Rate 22 11/11/17 08:48 Blood Pressure 98/52 11/11/17 08:48 O2 Sat by Pulse Oximetry (%) 99 11/10/17 21:00 Constitutional: Yes: No Distress, Calm Cardiovascular: Yes: Regular Rate and Rhythm, S1, S2 Respiratory: Yes: Regular, CTA Bilaterally. No: Rales Gastrointestinal: Yes: Normal Bowel Sounds, Soft. No: Tenderness Edema: No Neurological: Yes: Alert, Oriented Labs: CBC, BMP 11/10/17 06:00 11/11/17 07:00 INR, PTT INR 1.07 (0.82-1.09) 11/08/17 08:15 Problem List - Problems (1) ANDRÉS (acute kidney injury) Code(s): N17.9 - ACUTE KIDNEY FAILURE, UNSPECIFIED (2) CRF (chronic renal failure) Code(s): N18.9 - CHRONIC KIDNEY DISEASE, UNSPECIFIED (3) Acute urinary retention Code(s): R33.8 - OTHER RETENTION OF URINE (4) CAD (coronary artery disease) Code(s): I25.10 - ATHSCL HEART DISEASE OF [place] CORONARY ARTERY W/O ANG PCTRS Qualifiers: Coronary Disease-Associated Artery/Lesion type: [place] artery [place] vs. transplanted heart: [place] heart Associated angina: with unspecified angina Qualified Code(s): I25.119 - Atherosclerotic heart disease of [place] coronary artery with unspecified angina pectoris (5) Anemia Code(s): D64.9 - ANEMIA, UNSPECIFIED Qualifiers: Anemia type: unspecified type Qualified Code(s): D64.9 - Anemia, unspecified (6) CHF (congestive heart failure) Code(s): I50.9 - HEART FAILURE, UNSPECIFIED (7) Diabetes mellitus Code(s): E11.9 - TYPE 2 DIABETES MELLITUS WITHOUT COMPLICATIONS Qualifiers: Diabetes mellitus type: other specified (including JAVAD) Diabetes mellitus assisted insulin use: without ocean transportation intermediary use Diabetes mellitus complication status: without complication Qualified Code(s): E13.9 - Other specified diabetes mellitus without complications (8) Left arm pain Code(s): M79.602 - PAIN IN LEFT ARM (9) Hyperlipidemia Code(s): E78.5 - HYPERLIPIDEMIA, UNSPECIFIED Qualifiers: Hyperlipidemia type: pure hypercholesterolemia Qualified Code(s): E78.00 - Pure hypercholesterolemia, unspecified; E78.0 - Pure hypercholesterolemia (10) Hypertension Code(s): I10 - ESSENTIAL (PRIMARY) HYPERTENSION Qualifiers: Hypertension type: essential hypertension Qualified Code(s): I10 - Essential (primary) hypertension (11) Hypothyroidism Code(s): E03.9 - HYPOTHYROIDISM, UNSPECIFIED Qualifiers: Hypothyroidism type: unspecified Qualified Code(s): E03.9 - Hypothyroidism , unspecified (12) Weakness Code(s): R53.1 - WEAKNESS (13) Pelvis fracture Code(s): S32.9XXA - FRACTURE OF UNSP PARTS OF LUMBOSACRAL SPINE AND PELVIS, INIT Assessment/Plan Cardio consult and f/u appreciated. Renal consult and f/u appreciated. consult appreciated; Padmini was DC'ed, post void residual urine volume around 30 ml Creatinine better on IVF and off Lasix. IVF to be stop now. AM Labs PT f/u Case was d/w pt's nurse.
[2017-11-11] MEDS ORDERED: POLYETHYLENE GLYCOL 3350 119 GM BTL PO ONE (12:15)
[2017-11-11] MEDS: ACETAMINOPHEN 500 MG TABLET (FP) PO PRN ×2 (12:31→20:08)
--- NOTE | 2017-11-11 12:31 | PN ---
Progress Note (short form) - Note Progress Note: voiding spontaneously on floamx/urecholine no dysuria cont meds Problem List - Problems (1) Incomplete bladder emptying Code(s): R33.9 - RETENTION OF URINE, UNSPECIFIED
--- NOTE | 2017-11-11 20:37 | HOSP ---
Subjective - Review of Symptoms Events since last encounter: Hospitalist Encounter Was asked to read an EKG for Dr. Sunshine's patient who had reported palpitations earlier today. Reviewed the EKG- NSR, no change from prior study VSS Physical Examination Vital Signs: Vital Signs Temperature 97.2 F L 11/11/17 14:03 Pulse Rate 85 11/11/17 19:04 Respiratory Rate 20 11/11/17 19:04 Blood Pressure 120/58 11/11/17 19:04 O2 Sat by Pulse Oximetry (%) 99 11/10/17 21:00 Labs: CBC, BMP 11/10/17 06:00 11/11/17 07:00
--- NOTE | 2017-11-11 21:05 | PN ---
Progress Note (short form) - Note Progress Note: patient was complaining of an atypical chest pain that is reproducible with palpations, the symptoms resolved with tylenol, patient is known to the cardiology and she is fully optimized 12 lead ECG didnt show any acute ST segment changes or TW inversions.
[2017-11-11] MEDS: GABAPENTIN 300 MG CAPSULE (FP) PO SCH (22:22)
[2017-11-11] MEDS: ATORVASTATIN CA 10 MG TABLET (FP) PO SCH (22:22)
--- NOTE | 2017-11-11 22:58 | PN ---
Progress Note (short form) - Note Progress Note: CHF, DM, Hypertension, HLD, Hypothyrodism, CKD stage 4 who presented with CP and admitted for r/o ACS with elevated Cr and urinary retention Current Medications Acetaminophen (Tylenol -) 500 mg PO Q6H PRN PRN Reason: PAIN Last Admin: 11/11/17 20:08 Dose: 500 mg Allopurinol (Zyloprim -) 100 mg PO DAILY [facility] Last Admin: 11/11/17 10:29 Dose: 100 mg Aspirin (Ecotrin -) 81 mg PO DAILY [facility] Last Admin: 11/11/17 10:29 Dose: 81 mg Atorvastatin Calcium (Lipitor -) 10 mg PO [facility] Last Admin: 11/11/17 22:22 Dose: 10 mg Bethanechol Chloride (Urecholine -) 25 mg PO TID [facility] Last Admin: 11/11/17 22:22 Dose: 25 mg Carvedilol (Coreg -) 12.5 mg PO BID [facility] Last Admin: 11/11/17 22:21 Dose: 12.5 mg Cinacalcet (Sensipar -) 30 mg PO DAILY [facility] Last Admin: 11/11/17 10:29 Dose: 30 mg Docusate Sodium (Colace -) 100 mg PO BID [facility] Last Admin: 11/11/17 22:22 Dose: 100 mg Gabapentin (Neurontin -) 300 mg PO [facility] Last Admin: 11/11/17 22:22 Dose: 300 mg Heparin Sodium (Porcine) (Heparin -) 5,000 unit SQ TID [facility] Last Admin: 11/11/17 22:54 Dose: 5,000 unit Hydralazine HCl (Apresoline -) 50 mg PO TID [facility] Last Admin: 11/11/17 22:21 Dose: Not Given Insulin Aspart (Novolog Vial Sliding Scale -) 1 vial SQ [facility]; Protocol Last Admin: 11/11/17 22:24 Dose: 10 units Isosorbide Mononitrate (Imdur -) 90 mg PO DAILY [facility] Last Admin: 11/11/17 10:29 Dose: 90 mg Levothyroxine Sodium (Synthroid -) 50 mcg PO DAILY@0700 [facility] Last Admin: 11/11/17 06:45 Dose: 50 mcg Ranitidine HCl (Zantac -) 150 mg PO BID [facility] Last Admin: 11/11/17 22:21 Dose: 150 mg Ranolazine (Ranexa -) 500 mg PO BID [facility] Last Admin: 11/11/17 22:54 Dose: 500 mg Tamsulosin HCl (Flomax -) 0.4 mg PO DAILY@0830 [facility] Last Admin: 11/11/17 08:42 Dose: 0.4 mg Tramadol HCl (Ultram -) 50 mg PO Q8H PRN PRN Reason: PAIN LEVEL 7 - 10 Last Admin: 11/09/17 19:32 Dose: 50 mg Last Vital Signs Temp Pulse Resp BP Pulse Ox 97.7 F 91 H 20 138/64 99 11/11/17 22:00 11/11/17 22:00 11/11/17 22:00 11/11/17 22:00 11/10/17 21:00 CBC, BMP 11/10/17 06:00 11/11/17 07:00 imp CKD stage 4 (last outpatient Cr was 2.7 in August) Chest pain r/o ACS Urinary retention HTN CHF Renal function improved close to baseline
[2017-11-12] MEDS ORDERED: SIMETHICONE 80 MG TAB.CHEW (FP) PO PRN (00:10)
[2017-11-12] MEDS: ACETAMINOPHEN 500 MG TABLET (FP) PO PRN (02:10)
[2017-11-12] MEDS ORDERED: GABAPENTIN 100 MG CAPSULE (FP) PO ONE (04:15)
[2017-11-12] MEDS: HEPARIN NA (PORCINE) 5,000 UNITS/ML 1ML VIAL SQ SCH ×2 (06:47→14:27)
[2017-11-12] MEDS: BETHANECHOL CHLORIDE 25 MG TABLET PO SCH ×2 (06:47→14:27)
[2017-11-12] MEDS: LEVOTHYROXINE NA 50 MCG TABLET (FP) PO SCH (06:47)
[2017-11-12] MEDS: INSULIN SLIDING SCALE (NOVOLOG) 1 VIAL SQ SCH ×2 (06:51→12:06)
[2017-11-12] MEDS: hydrALAZINE HCL 50 MG TABLET (FP) PO SCH ×2 (07:54→14:27)
[2017-11-12 08:07] LABS: ANION GAP 7 (8-16); BLOOD UREA NITROGEN 41 mg/dL (7-18); CALCIUM 8.1 mg/dL (8.5-10.1); CHLORIDE 105 mmol/L (98-107); CO2 24 mmol/L (21-32); CREATININE 2.7 mg/dL (0.55-1.02); GLUCOSE,RANDOM 167 mg/dL (74-106); SODIUM 136 mmol/L (136-145)
[2017-11-12] MEDS ORDERED: INSULIN (NOVOLOG) ASPART 100 UNITS/ML 10ML VIAL ONE ×2 (08:28→12:01)
[2017-11-12] MEDS ORDERED: PT OWN MED DRAWER 7, Y5N ONE (08:29)
[2017-11-12] MEDS: ASPIRIN COATED 81 MG TABLET.EC PO SCH (09:09)
[2017-11-12] MEDS: TAMSULOSIN HCL 0.4 MG CAP.ER.24H (FP) PO SCH (09:09)
[2017-11-12] MEDS: RANOLAZINE E.R. 500 MG TABLET (FP) PO SCH (09:10)
[2017-11-12] MEDS: RANITIDINE HCL 150 MG TABLET (FP) PO SCH (09:10)
[2017-11-12] MEDS: CARVEDILOL 12.5 MG TABLET (FP) PO SCH (09:10)
[2017-11-12] MEDS: ALLOPURINOL 100 MG TABLET (FP) PO SCH (09:10)
[2017-11-12] MEDS: CINACALCET HCL 30 MG TAB (FP) PO SCH (09:10)
[2017-11-12] MEDS: DOCUSATE SODIUM 100 MG CAPSULE (FP) PO SCH (09:10)
[2017-11-12] MEDS: ISOSORBIDE MONONITRATE 30 MG TAB.SR.24H (FP) PO SCH (10:13)
--- NOTE | 2017-11-12 10:15 | PN ---
Progress Note (short form) - Note Progress Note: Chief Complaint: Events noted, notes reviewed, reported chest pain yesterday currently denies any recurrent chest pain, denies any dyspnea, complaining of persistent tremors etiology of which is unclear worse this AM History of Present Illness: Seen and examined. Events noted, reported chest pain yesterday currently denies any recurrent chest pain, denies any dyspnea, complaining of persistent tremors etiology of which is unclear worse this AM EKG performed yesterday revealed pseudo-normalization of T wave abnormality, non specific change additional evaluation as outpatient is recommended including pharmacologic MPI study, discussed wit the patient [facility] & coronary angiography performed 01/04/16 revealed non-obstructive CAD MPI study dated 11/12/2015 revealed No ischemia with normal LV function LVEF 79% Echocardiography dated 11/08/2017 revealed moderate LVH normal LV size and function, MR and TR Medications: Current Medications Acetaminophen (Tylenol -) 500 mg PO Q6H PRN PRN Reason: PAIN Last Admin: 11/12/17 02:10 Dose: 500 mg Allopurinol (Zyloprim -) 100 mg PO DAILY [facility] Last Admin: 11/12/17 09:10 Dose: 100 mg Aspirin (Ecotrin -) 81 mg PO DAILY [facility] Last Admin: 11/12/17 09:09 Dose: 81 mg Atorvastatin Calcium (Lipitor -) 10 mg PO [facility] Last Admin: 11/11/17 22:22 Dose: 10 mg Bethanechol Chloride (Urecholine -) 25 mg PO TID [facility] Last Admin: 11/12/17 06:47 Dose: 25 mg Carvedilol (Coreg -) 12.5 mg PO BID [facility] Last Admin: 11/12/17 09:10 Dose: 12.5 mg Cinacalcet (Sensipar -) 30 mg PO DAILY [facility] Last Admin: 11/12/17 09:10 Dose: 30 mg Docusate Sodium (Colace -) 100 mg PO BID [facility] Last Admin: 11/12/17 09:10 Dose: 100 mg Gabapentin (Neurontin -) 300 mg PO HS [facility] Last Admin: 11/11/17 22:22 Dose: 300 mg Heparin Sodium (Porcine) (Heparin -) 5,000 unit SQ TID [facility] Last Admin: 11/12/17 06:47 Dose: 5,000 unit Hydralazine HCl (Apresoline -) 50 mg PO TID [facility] Last Admin: 11/12/17 07:54 Dose: 50 mg Insulin Aspart (Novolog Vial Sliding Scale -) 1 vial SQ ACHS [facility]; Protocol Last Admin: 11/12/17 06:51 Dose: 2 units Isosorbide Mononitrate (Imdur -) 90 mg PO DAILY [facility] Last Admin: 11/11/17 10:29 Dose: 90 mg Levothyroxine Sodium (Synthroid -) 50 mcg PO DAILY@0700 [facility] Last Admin: 11/12/17 06:47 Dose: 50 mcg Ranitidine HCl (Zantac -) 150 mg PO BID [facility] Last Admin: 11/12/17 09:10 Dose: 150 mg Ranolazine (Ranexa -) 500 mg PO BID [facility] Last Admin: 11/12/17 09:10 Dose: 500 mg Simethicone (Mylicon -) 80 mg PO BID PRN PRN Reason: GAS Tamsulosin HCl (Flomax -) 0.4 mg PO DAILY@0830 [facility] Last Admin: 11/12/17 09:09 Dose: 0.4 mg Tramadol HCl (Ultram -) 50 mg PO Q8H PRN PRN Reason: PAIN LEVEL 7 - 10 Last Admin: 11/09/17 19:32 Dose: 50 mg Review of Systems - Review of Systems Constitutional: no symptoms reported Respiratory: denies: Cough or Sputum Production Cardiovascular: as noted above Gastrointestinal: denies Nausea, Vomiting, Diarrhea, Constipation or Abdominal Pain Genitourinary: No symptoms reported Musculoskeletal: Degenerative Joint Disease and Tremors Endocrine: NIDDM and Hypothyroidism Vital Signs: Last Vital Signs Temp Pulse Resp BP Pulse Ox 97.8 F 82 20 123/53 99 11/12/17 09:10 11/12/17 09:10 11/12/17 09:10 11/12/17 09:10 11/11/17 21:00 Intake & Output 11/09/17 11/10/17 11/11/17 11/12/17 23:59 23:59 23:59 23:59 Intake Total 971 2336 1574 Output Total 2100 790 500 Balance -1129 1546 1074 Constitutional: No Distress, Calm Neck: Supple Negative JVD No Bruit Respiratory: Diminished Breath Sounds at the Bases Cardiovascular: S1 S2 Regular Rate and Rhythm Garde 2/6 CLEMENTE Gastrointestinal: Soft Benign Normal Bowel Sounds Ext: No Edema Labs: CBC, BMP 11/10/17 06:00 11/12/17 06:52 Assessment/Plan ASSESSMENT: 1. 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 Diastolic LV dysfunction with chronic LV class I- II NYHA classification LV failure, compensated/euvolemic 3. Aortic valve sclerosis/stenosis mild in severity 4. HTN 5. NIDDM 6. Hypercholesterolemia 7. Hypothyroidism 8. Acute on chronic KD 9. Anemia 10. Tremors etiology to be determined, Parkinsonism vs. restless leg syndrome vs. potential side effect of Ranexa therapy (although rare but I personally have seen some) PLAN: 1. Continue Coreg 2. Ideally should be on ACEI or ARBS pending renal function stabilization 3. Continue Imdur and titrate dosage but D/C Ranexa since it could be contributing to tremors 4. Continue Hydralazine 5. Continue Lipitor 6. Continue ASA 7. As outlined above further cardiovascular evaluation as outpatient, including MPI study (patient was advised to F/U with Dr. carolyne Kiser this coming week) Troy Ortega M.D.
--- NOTE | 2017-11-12 11:36 | DS ---
Physical Examination Vital Signs: Vital Signs Temperature 97.8 F 11/12/17 09:10 Pulse Rate 82 11/12/17 09:10 Respiratory Rate 20 11/12/17 09:10 Blood Pressure 123/53 11/12/17 09:10 O2 Sat by Pulse Oximetry (%) 99 11/11/17 21:00 Findings/Remarks: Last evening/ night events were noticed. Pt states that she is taking Neurontin 300 mg BID Pt w/o CP SOB, palpitations, dizziness, abd pain. Constitutional: Yes: No Distress, Calm Cardiovascular: Yes: Regular Rate and Rhythm, S1, S2 Respiratory: Yes: Regular, CTA Bilaterally. No: Rales Gastrointestinal: Yes: Normal Bowel Sounds, Soft, Abdomen, Obese. No: Tenderness Edema: No Neurological: Yes: Alert, Oriented Labs: CBC, BMP 11/10/17 06:00 11/12/17 06:52 Discharge Summary Reason For Visit: CHRONIC KIDNEY DISEASE CORONARY ARTERY D Current Active Problems ANDRÉS (acute kidney injury) (Acute) Acute urinary retention (Acute) CRF (chronic renal failure) (Acute) Incomplete bladder emptying (Acute) Left arm pain (Acute) Pelvis fracture (Acute) Weakness (Acute) CAD (coronary artery disease) (Chronic) Chronic renal disease (Chronic) Procedures: Principal: Cervical spine MRI. Bladder US. left humerus and shoulder XR Hospital Course: Pt came to ER c/o left arm pain; had cervical spine MRI (positive for spinal stenosis). She was noticed to be in ANDRÉS; pt received IVF. Pt was also noticed to have acute urinary retention, had johnston placed (drined 700 ml). Pt was seen by Cardio (Dr. Kiser), Renal (Dr. Patel), (Dr. Romero). Pt improved slowly, creatinine improved, johnston was removed and pt started to urinate normally. Pt to be DC'ed home with follow-up with Cardio (Dr. Kiser), Renal (Dr. Patel), ( Dr. Romero). Condition: Fair - Instructions Diet, Activity, Other Instructions: To follow-up with Cardio (Dr. Kiser), Renal (Dr. Patel), (Dr. Romero) specialists. Referrals: Jam Sunshine MD [Primary Care Provider] - Disposition: HOME - Home Medications Comprehensive Discharge Medication List: Ambulatory Orders
[2017-11-12] MEDS ORDERED: GABAPENTIN 300 MG CAPSULE (FP) PO ONE (12:00)
[2017-11-12 15:34] VITALS: BP 133/61; PULSE 72; TEMP 97.3
--- NOTE | 2017-11-12 20:44 | EKG ---
Test Reason : Blood Pressure : / mmHG Vent. Rate : 090 BPM Atrial Rate : 090 BPM P-R Int : 164 ms QRS Dur : 088 ms QT Int : 408 ms P-R-T Axes : 066 073 057 degrees QTc Int : 499 ms NORMAL SINUS RHYTHM NONSPECIFIC ST AND T WAVE ABNORMALITY PROLONGED QT ABNORMAL ECG WHEN COMPARED WITH ECG OF 08-NOV-2017 06:51, T WAVE INVERSION NO LONGER EVIDENT IN LATERAL LEADS Confirmed by KEO SCHROEDER, ANGLE ([id number]) on 11/12/2017 8:43:45 PM Referred By: Confirmed By:ANGLE CROWLEY MD
== END 2017-11-12 15:42 | disposition home or self-care (01) | DRG 683 ==
LOC: JER 20:36 → JERBED 11-08 01:04 → OBSVTOIN 11-08 10:57 → J5S 11-08 21:21
PROVIDERS: ADMIT Specialist; ATTEND Specialist
DX: N17.9 Acute kidney failure, unspecified (principal); I13.0 Hypertensive heart and chronic kidney disease with heart failure and stage 1 through stage 4 chronic kidney disease, or unspecified chronic kidney disease; I50.30 Unspecified diastolic (congestive) heart failure; I25.119 Atherosclerotic heart disease of native coronary artery with unspecified angina pectoris; R33.9 Retention of urine, unspecified; R07.89 Other chest pain; E03.9 Hypothyroidism, unspecified; E11.22 Type 2 diabetes mellitus with diabetic chronic kidney disease; K21.9 Gastro-esophageal reflux disease without esophagitis; D63.1 Anemia in chronic kidney disease; M54.12 Radiculopathy, cervical region; N18.3 Chronic kidney disease, stage 3 (moderate); R53.1 Weakness; E78.5 Hyperlipidemia, unspecified; M79.602 Pain in left arm
CPT/HCPCS: 36415; 71045-TC-FY; 72141-TC; 73030-TC-LT-FY; 73060-TC-LT-FY; 76775-TC; 76856-TC; 80048; 80053; 80061; 81003; 81015; 82436; 82550; 82553; 82570; 82962; 83721; 83735; 83880; 84100; 84133; 84300; 84443; 84484; 84540; 85025; 85027; 85610; 87086; 87186; 93005; 93010; 93306-TC; 97116-GP; 97162-GP; 99285-25; G0378; J1644; J7030

== ENCOUNTER 2018-02-15 13:01 | Inpatient (IN) | payer OTHER ==
--- NOTE | 2018-02-15 15:01 | PDOC ---
History of Present Illness - General Chief Complaint: Edema Stated Complaint: SOB, SWOLLEN LEGS Time Seen by Provider: 02/15/18 14:02 History Source: Patient, Family (daughter) Exam Limitations: No Limitations - History of Present Illness Initial Comments: 02/15/18 14:59 82 yo female pmh of CHF (followed by Dr. Kiser) DM type 2, and hypothyroidism presents to the ED for bilateral lower limb swelling and shortness of breath. Patient states the SOB started about 2 weeks ago and it has been waking her up at night. Patient can only walk 1/2 of 1 block before getting out of breath. Patient required 02 2L over 2 years ago with similar CHF findings but has not had problems since then. States her legs have been swollen for the past day with left calf tenderness. Last appointment with Dr. Kiser was over 3 months ago. Patient also has had chronic abdominal pain which recently worsened, saw Dr. Holliday and had a negative abdominal CT. Patient denies CP, N/V/F/C. Past History - Past Medical History Allergies/Adverse Reactions: Allergies Allergy/AdvReac Type Severity Reaction Status Date / Time No Known Allergies Allergy Verified 02/15/18 13:11 Home Medications: Ambulatory Orders Ranitidine HCl [Zantac] 150 mg PO BID #60 tablet 06/15/15 Aspirin Coated [Ecotrin -] 81 mg PO DAILY #30 tablet.ec 07/09/16 Carvedilol [Coreg -] 12.5 mg PO BID #180 tablet 07/09/16 Levothyroxine [Synthroid -] 50 mcg PO DAILY #90 tablet 07/09/16 Allopurinol [Zyloprim -] 100 mg PO DAILY 10/02/17 Atorvastatin Ca [Lipitor] 10 mg PO HS 10/02/17 Gabapentin [Neurontin -] 300 mg PO BID 10/02/17 Glipizide [Glucotrol -] 5 mg PO TID 10/02/17 Furosemide 80 mg PO DAILY 11/08/17 Acetaminophen [Tylenol .Extra-Strength -] 500 mg PO Q6H PRN tablet 11/12/17 Tamsulosin HCl [Flomax -] 0.4 mg PO DAILY@0830 #90 cap.er.24h 11/12/17 hydrALAZINE HCL [Apresoline -] 50 mg PO TID #90 tablet 11/12/17 Insulin Glargine,Hum.rec.anlog [Lantus Solostar] 18 unit SQ HS 02/15/18 Insulin Lispro [Humalog] 6 - 16 unit SQ DAILY 02/15/18 Isosorbide Mononitrate [Imdur -] 90 mg PO DAILY 02/15/18 COPD: No CHF: Yes Diabetes: Yes GI Disorders: Yes (GERD.) HTN: Yes Hypercholesterolemia: Yes Thyroid Disease: Yes (HYPO.) - Surgical History Abdominal Surgery: Yes - Immunization History Immunization Up to Date: Yes - Suicide/Smoking/Psychosocial Hx Smoking Status: No Smoking History: Never smoked Have you smoked in the past 12 months: No Number of Cigarettes Smoked Daily: 0 Hx Alcohol Use: No Drug/Substance Use Hx: No Substance Use Type: None Hx Substance Use Treatment: No Review of Systems - Review of Systems Constitutional: No: Chills, Fever, Weakness Respiratory: Yes: Orthopnea, Shortness of Breath, SOB with Exertion. No: Wheezing Cardiac (ROS): Yes: Edema (bilateral lower leg). No: Chest Pain ABD/GI: Yes: Abdominal Distended (chronic), Other (right sided abdominal pain chronic ) : No: Burning, Dysuria, Flank Pain Musculoskeletal: No: Back Pain *Physical Exam - Vital Signs Last Vital Signs Temp Pulse Resp BP Pulse Ox 98.9 F 69 18 174/71 98 02/15/18 13:05 02/15/18 13:05 02/15/18 13:05 02/15/18 13:05 02/15/18 13:05 - Physical Exam General Appearance: Yes: Appropriately Dressed. No: Apparent Distress HEENT: positive: EOMI Respiratory/Chest: negative: Chest Tender, Lungs Clear (crackles rigt base ) Cardiovascular: positive: Regular Rhythm, Regular Rate, S1, S2, Edema (bilateral ) Vascular Pulses: Dorsalis-Pedis (R): 3+, Doralis-Pedis (L): 3+ Gastrointestinal/Abdominal: positive: Normal Bowel Sounds, Soft, Other (diffuse tenderness, chronic). negative: Pulsatile Mass, Guarding, Rebound Extremity: positive: Normal Capillary Refill Neurologic: positive: Fully Oriented, Alert, Normal Mood/Affect, Normal Response ED Treatment Course - LABORATORY CBC & Chemistry Diagram: 02/15/18 16:00 02/15/18 15:45 Medical Decision Making - Medical Decision Making 02/15/18 15:51 82 yo female pmh of CHF presents to the ED for shortness of breath and bilateral lower limb edema. States she wakes up in the night SOB and can only ambulate 1/2 a block before getting out of breath. Denies CP. On exam, right lung base crackles and bilateral lower limb edema with pain on palpation to left calf. Ordered CBC, CMP, BNP, Cardiac profile, chest x ray and left lower limb duplex BNP 356 DDX includes but is not limited to: CHF exacerbation, PE, pnemonia, ACS wait for duplex reading Plan to keep in ED obs under Dr. Sunshine Spoke with Dr. Sunshine and who agrees to admit to OBS for diuresis *DC/Admit/Observation/Transfer Diagnosis at time of Disposition: CHF exacerbation Qualifiers: Heart failure type: unspecified Qualified Code(s): I50.9 - Heart failure, unspecified - Discharge Dispostion Condition at time of disposition: Fair Decision to Admit order: Yes - Referrals Referrals: Jam Sunshine MD [Primary Care Provider] - - Patient Instructions - Post Discharge Activity
--- NOTE | 2018-02-15 15:44 | PDOC ---
Attending Attestation - Resident Resident Name: Mack Martin - ED Attending Attestation I have performed the following: I have examined & evaluated the patient, The case was reviewed & discussed with the resident, I agree w/resident's findings & plan - HPI HPI: 02/15/18 15:39 82-year-old female with history of diabetes, CHF presents with 1-2 weeks of worsening volume overload and symptoms of orthopnea and dyspnea on exertion with bilateral leg edema, left worse than right. Patient takes Lasix 80 mg daily , reports compliance. Denies chest pain, reports chronic abdominal pain which was recently evaluated with a CAT scan performed yesterday that was unremarkable except for fecal retention. - Physicial Exam PE: 02/15/18 15:40 Vital signs are within normal limits, blood pressure slightly elevated, O2 sat within normal limits Right basilar crackles, otherwise clear with good air entry Abdomen with diffuse discomfort to palpation but no focal guarding or rebound Trace lower leg swelling, no calf tenderness - Medical Decision Making 02/15/18 15:41 82-year-old female with symptoms of worsening volume overload and pulmonary edema for the last 1-2 weeks, presents with exertional dyspnea all consistent with CHF exacerbation. labs ekg, cxr diuresis likely admission given dyspnea for further cardiac workup
[2018-02-15 16:36] LABS: BASO % 0.4 % (0-2.0); EOS % 11.4 % (0-4.5); LYMPH % 19.4 % (8-40); MCH 30.1 pg (25.7-33.7); MCHC 34.4 g/dl (32.0-36.0); MEAN CELL VOLUME 87.5 fl (80-96); MEAN PLT VOLUME 7.8 fl (7.5-11.1); MONO % 9.5 % (3.8-10.2); NEUT % 59.3 % (42.8-82.8); PLATELET COUNT 223 K/MM3 (134-434); RBC 3.66 M/mm3 (3.60-5.2); RDW 14.6 % (11.6-15.6); WHITE BLOOD COUNT 9.6 K/mm3 (4.0-10.0)
[2018-02-15 16:52] LABS: ALBUMIN 3.8 g/dl (3.4-5.0); ANION GAP 8 MMOL/L (8-16); BLOOD UREA NITROGEN 28 mg/dL (7-18); CALCIUM 9.8 mg/dL (8.5-10.1); CHLORIDE 96 mmol/L (98-107); CO2 31 mmol/L (21-32); CREATININE 1.8 mg/dL (0.55-1.02); GLUCOSE,RANDOM 223 mg/dL (74-106); POTASSIUM 4.4 mmol/L (3.5-5.1); SGOT/AST 22 U/L (15-37); SGPT/ALT 21 U/L (12-78); SODIUM 135 mmol/L (136-145)
[2018-02-15 16:57] LABS: ALK PHOS 123 U/L (45-117); BILIRUBIN,TOTAL 0.7 mg/dL (0.2-1.0); N-TERMINAL BNP 356.96 pg/ml (5-450); TOT PROT 7.3 g/dl (6.4-8.2)
[2018-02-15] MEDS ORDERED: FUROSEMIDE 40 MG/4 ML INJECTABLE VIAL IVPUSH SCH (17:15)
[2018-02-15] MEDS ORDERED: FUROSEMIDE 40 MG/4 ML INJECTABLE VIAL ONE (17:17)
--- NOTE | 2018-02-15 23:54 | HP ---
Admitting History and Physical - Primary Care Physician PCP: Jam Sunshine - Admission Chief Complaint: [place]. PND History of Present Illness: Pt with significant hx/o CHF, CRF started to develop [place], weakness about a week ago; couple of days ago she developed LE edema;last night she developed PND and couldn't sleep at all. Pt w/o CP, palpitations associated with difficulty breathing.Pt states that she is compliant with diet and medications. History Source: Patient Limitations to Obtaining History: No Limitations - Past Medical History Cardiovascular: Yes: CAD (non-obstructive), CHF, HTN, Hyperlipdemia Gastrointestinal: Yes: GERD Renal/: Yes: Renal Inusuff Endocrine: Yes: Diabetes Mellitus (Insulin dependent), Hypothyroidism - Past Surgical History Past Surgical History: Yes: Hysterectomy ([place], BSO in 1981), Oopherectomy - Smoking History Smoking history: Never smoked Have you smoked in the past 12 months: No Aproximately how many cigarettes per day: 0 - Alcohol/Substance Use Hx Alcohol Use: No History of Substance Use: reports: None - Social History ADL: Independent History of Recent Travel: Yes (WENT TO [facility] TWO YEARS AGO) Home Medications - Allergies Allergies/Adverse Reactions: Allergies Allergy/AdvReac Type Severity Reaction Status Date / Time No Known Allergies Allergy Verified 02/15/18 13:11 - Home Medications Home Medications: Ambulatory Orders Ranitidine HCl [Zantac] 150 mg PO BID #60 tablet 06/15/15 Aspirin Coated [Ecotrin -] 81 mg PO DAILY #30 tablet.ec 07/09/16 Carvedilol [Coreg -] 12.5 mg PO BID #180 tablet 07/09/16 Levothyroxine [Synthroid -] 50 mcg PO DAILY #90 tablet 07/09/16 Allopurinol [Zyloprim -] 100 mg PO DAILY 10/02/17 Atorvastatin Ca [Lipitor] 10 mg PO HS 10/02/17 Gabapentin [Neurontin -] 300 mg PO BID 10/02/17 Glipizide [Glucotrol -] 5 mg PO TID 10/02/17 Furosemide 80 mg PO DAILY 11/08/17 Acetaminophen [Tylenol .Extra-Strength -] 500 mg PO Q6H PRN tablet 11/12/17 Tamsulosin HCl [Flomax -] 0.4 mg PO DAILY@0830 #90 cap.er.24h 11/12/17 hydrALAZINE HCL [Apresoline -] 50 mg PO TID #90 tablet 11/12/17 Insulin Glargine,Hum.rec.anlog [Lantus Solostar] 18 unit SQ HS 02/15/18 Insulin Lispro [Humalog] 6 - 16 unit SQ DAILY 02/15/18 Isosorbide Mononitrate [Imdur -] 90 mg PO DAILY 02/15/18 Family Disease History - Family Disease History Family Disease History: Diabetes: Brother, Sister, Other: Father ( in his 50s ? etiology) Review of Systems - Review of Systems Constitutional: denies: Chills, Fever Eyes: denies: Blind Spots, Blurred Vision, Double Vision HENT: denies: Difficult Swallowing, Ear Discharge, Ear Pain, Nasal Congestion, Throat Pain Neck: denies: Pain on Movement, Stiffness Cardiovascular: denies: Chest Pain, Palpitations Respiratory: reports: PND, SOB on Exertion. denies: Cough, Wheezing Gastrointestinal: denies: Abdominal Pain, Nausea, Vomiting Genitourinary: denies: Discharge, Dysuria Musculoskeletal: denies: Back Pain, Muscle Pain Integumentary: denies: Bruising, Rash Neurological: reports: Weakness. denies: Change in LOC, Change in Speech Endocrine: denies: Excessive Sweating, Intolerance to Cold Psychiatric: denies: Altered Sleep Pattern, Anxiety, Depression Physical Examination Vital Signs: Vital Signs Temperature 98.7 F 02/15/18 22:59 Pulse Rate 74 02/15/18 22:59 Respiratory Rate 20 02/15/18 22:59 Blood Pressure 140/70 02/15/18 22:59 O2 Sat by Pulse Oximetry (%) 96 02/15/18 20:22 Constitutional: Yes: No Distress, Calm Eyes: Yes: Conjunctiva Clear, EOM Intact, PERRL HENT: Yes: Normocephalic. No: Epistaxis, Pharyngeal Erythema, Rhinnorhea Neck: Yes: Trachea Midline. No: Lymphadenopathy Cardiovascular: Yes: Regular Rate and Rhythm, S1, S2 Respiratory: Yes: Regular, Other (crackles at both bases and 1/4 up) Gastrointestinal: Yes: Normal Bowel Sounds, Soft, Distention. No: Tenderness ...Rectal Exam: Yes: Deferred Breast(s): Yes: Other (deferred) Musculoskeletal: No: Back Pain, Joint Swelling Edema: Yes Edema: LLE: 1+, RLE: 1+ Integumentary: No: Rash Neurological: Yes: Alert, Oriented, Other (motor and sensory examination is symmetric in UE/ LE/ face) Labs: CBC, BMP 02/15/18 16:00 02/15/18 15:45 Imaging - Results Chest X-ray: Report Reviewed Ultrasound: Report Reviewed Problem List - Problems (1) CHF exacerbation Code(s): I50.9 - HEART FAILURE, UNSPECIFIED Qualifiers: Heart failure type: unspecified Qualified Code(s): I50.9 - Heart failure, unspecified (2) Hyponatremia Code(s): E87.1 - HYPO-OSMOLALITY AND HYPONATREMIA (3) CRF (chronic renal failure) Code(s): N18.9 - CHRONIC KIDNEY DISEASE, UNSPECIFIED (4) Weakness Code(s): R53.1 - WEAKNESS (5) CAD (coronary artery disease) Code(s): I25.10 - ATHSCL HEART DISEASE OF [place] CORONARY ARTERY W/O ANG PCTRS Qualifiers: Coronary Disease-Associated Artery/Lesion type: [place] artery [place] vs. transplanted heart: [place] heart Associated angina: with unspecified angina Qualified Code(s): I25.119 - Atherosclerotic heart disease of [place] coronary artery with unspecified angina pectoris (6) Diabetes mellitus Code(s): E11.9 - TYPE 2 DIABETES MELLITUS WITHOUT COMPLICATIONS Qualifiers: Diabetes mellitus type: other specified (including JAVAD) Diabetes mellitus half-way insulin use: without termite inspector use Diabetes mellitus complication status: without complication Qualified Code(s): E13.9 - Other specified diabetes mellitus without complications Assessment/Plan Lasix IVP To monitor electrolytes, renal function Cardio consult AM labs, including CE. DVT prophylaxis
[2018-02-16] MEDS: ATORVASTATIN CA 10 MG TABLET (FP) PO SCH ×2 (00:08→21:11)
[2018-02-16] MEDS: RANITIDINE HCL 150 MG TABLET (FP) PO SCH ×3 (00:08→21:11)
[2018-02-16] MEDS: GABAPENTIN 300 MG CAPSULE (FP) PO SCH ×3 (00:08→21:11)
[2018-02-16] MEDS: hydrALAZINE HCL 50 MG TABLET (FP) PO SCH ×4 (00:09→21:11)
[2018-02-16] MEDS: HEPARIN NA (PORCINE) 5,000 UNITS/ML 1ML VIAL SQ SCH ×3 (00:09→21:11)
[2018-02-16] MEDS: CARVEDILOL 12.5 MG TABLET (FP) PO SCH ×3 (00:09→21:11)
[2018-02-16] MEDS: LEVOTHYROXINE NA 50 MCG TABLET (FP) PO SCH (06:21)
[2018-02-16] MEDS: glipiZIDE 5 MG TABLET (FP) PO SCH ×3 (06:22→17:19)
[2018-02-16] MEDS ORDERED: INSULIN (NOVOLOG) ASPART 100 UNITS/ML 10ML VIAL ONE ×3 (06:24→21:03)
[2018-02-16] MEDS ORDERED: INSULIN SLIDING SCALE (NOVOLOG) 1 VIAL SQ SCH (07:00)
[2018-02-16 07:32] LABS: HEMATOCRIT 30.9 % (32.4-45.2); HEMOGLOBIN 10.3 GM/dL (10.7-15.3); MCH 29.2 pg (25.7-33.7); MCHC 33.4 g/dl (32.0-36.0); MEAN CELL VOLUME 87.3 fl (80-96); MEAN PLT VOLUME 7.9 fl (7.5-11.1); PLATELET COUNT 190 K/MM3 (134-434); RBC 3.54 M/mm3 (3.60-5.2); RDW 14.5 % (11.6-15.6); WHITE BLOOD COUNT 8.8 K/mm3 (4.0-10.0)
[2018-02-16 08:30] LABS: CHLORIDE 97 mmol/L (98-107); POTASSIUM 3.8 mmol/L (3.5-5.1); SODIUM 137 mmol/L (136-145)
[2018-02-16 08:40] LABS: ALBUMIN 3.3 g/dl (3.4-5.0); ALK PHOS 108 U/L (45-117); ANION GAP 9 MMOL/L (8-16); BILIRUBIN,TOTAL 0.6 mg/dL (0.2-1.0); BLOOD UREA NITROGEN 30 mg/dL (7-18); CALCIUM 8.9 mg/dL (8.5-10.1); CO2 31 mmol/L (21-32); CREATININE 2.1 mg/dL (0.55-1.02); GLUCOSE,RANDOM 213 mg/dL (74-106); SGOT/AST 18 U/L (15-37); SGPT/ALT 17 U/L (12-78); TOT PROT 6.6 g/dl (6.4-8.2)
[2018-02-16] MEDS: FUROSEMIDE 40 MG/4 ML INJECTABLE VIAL IVPUSH SCH (09:02)
[2018-02-16] MEDS: ISOSORBIDE MONONITRATE 30 MG TAB.SR.24H (FP) PO SCH (09:08)
[2018-02-16] MEDS: ALLOPURINOL 100 MG TABLET (FP) PO SCH (09:09)
[2018-02-16] MEDS: ASPIRIN COATED 81 MG TABLET.EC PO SCH (09:09)
[2018-02-16] MEDS: TAMSULOSIN HCL 0.4 MG CAP.ER.24H (FP) PO SCH (09:09)
--- NOTE | 2018-02-16 10:31 | EKG ---
Test Reason : Blood Pressure : / mmHG Vent. Rate : 071 BPM Atrial Rate : 071 BPM P-R Int : 146 ms QRS Dur : 082 ms QT Int : 424 ms P-R-T Axes : 039 060 052 degrees QTc Int : 460 ms NORMAL SINUS RHYTHM NORMAL ECG WHEN COMPARED WITH ECG OF 11-NOV-2017 19:45, NO SIGNIFICANT CHANGE WAS FOUND Confirmed by ANGLE CROWLEY MD ([id number]) on 02/16/2018 10:31:32 AM Referred By: Confirmed By:ANGLE CROWLEY MD
--- NOTE | 2018-02-16 12:15 | PN ---
Progress Note, Physician History of Present Illness: Pt's breathing is better. Pt w/o CP, palpitations, dizziness, abd apin, dysuria. - Current Medication List Current Medications: Active Medications Acetaminophen (Tylenol -) 500 mg PO Q6H PRN PRN Reason: PAIN LEVEL 1-5 Allopurinol (Zyloprim -) 100 mg PO DAILY [facility] Last Admin: 02/16/18 09:09 Dose: 100 mg Aspirin (Ecotrin -) 81 mg PO DAILY [facility] Last Admin: 02/16/18 09:09 Dose: 81 mg Atorvastatin Calcium (Lipitor -) 10 mg PO [facility] Last Admin: 02/16/18 00:08 Dose: 10 mg Carvedilol (Coreg -) 12.5 mg PO BID [facility] Last Admin: 02/16/18 09:09 Dose: 12.5 mg Furosemide (Lasix Injection -) 80 mg IVPUSH DAILY [facility] Last Admin: 02/16/18 09:02 Dose: 80 mg Gabapentin (Neurontin -) 300 mg PO BID [facility] Last Admin: 02/16/18 09:09 Dose: 300 mg Glipizide (Glucotrol -) 5 mg PO TIDAC [facility] Last Admin: 02/16/18 11:24 Dose: 5 mg Heparin Sodium (Porcine) (Heparin -) 5,000 unit SQ BID [facility] Last Admin: 02/16/18 09:02 Dose: 5,000 unit Hydralazine HCl (Apresoline -) 50 mg PO TID [facility] Last Admin: 02/16/18 06:21 Dose: 50 mg Insulin Aspart ([facility]iding [facility] -[facility] Last Admin: 02/16/18 06:27 Dose: 4 units Insulin Detemir (Levemir Vial) 15 units SQ [facility] Isosorbide Mononitrate (Imdur -) 90 mg PO DAILY [facility] Last Admin: 02/16/18 09:08 Dose: 90 mg Levothyroxine Sodium (Synthroid -) 50 mcg PO DAILY@0700 [facility] Last Admin: 02/16/18 06:21 Dose: 50 mcg Ranitidine HCl (Zantac -) 150 mg PO BID [facility] Last Admin: 02/16/18 09:09 Dose: 150 mg Tamsulosin HCl (Flomax -) 0.4 mg PO DAILY@0830 [facility] Last Admin: 02/16/18 09:09 Dose: 0.4 mg - Objective Vital Signs: Vital Signs Temperature 97.8 F 02/16/18 08:04 Pulse Rate 62 02/16/18 08:04 Respiratory Rate 16 02/16/18 08:04 Blood Pressure 135/60 02/16/18 08:04 O2 Sat by Pulse Oximetry (%) 97 02/16/18 09:00 Constitutional: Yes: No Distress, Calm Cardiovascular: Yes: Regular Rate and Rhythm, S1, S2 Respiratory: Yes: Regular, Other (crackles at bases) Gastrointestinal: Yes: Normal Bowel Sounds, Soft. No: Tenderness Edema: Yes Edema: LLE: Trace, RLE: Trace Neurological: Yes: Alert, Oriented Labs: CBC, BMP 02/16/18 06:30 02/16/18 06:30 Problem List - Problems (1) CHF exacerbation Code(s): I50.9 - HEART FAILURE, UNSPECIFIED Qualifiers: Heart failure type: unspecified Qualified Code(s): I50.9 - Heart failure, unspecified (2) Hyponatremia Code(s): E87.1 - HYPO-OSMOLALITY AND HYPONATREMIA (3) CRF (chronic renal failure) Code(s): N18.9 - CHRONIC KIDNEY DISEASE, UNSPECIFIED (4) Weakness Code(s): R53.1 - WEAKNESS (5) CAD (coronary artery disease) Code(s): I25.10 - ATHSCL HEART DISEASE OF [place] CORONARY ARTERY W/O ANG PCTRS Qualifiers: Coronary Disease-Associated Artery/Lesion type: [place] artery [place] vs. transplanted heart: [place] heart Associated angina: with unspecified angina Qualified Code(s): I25.119 - Atherosclerotic heart disease of [place] coronary artery with unspecified angina pectoris (6) Diabetes mellitus Code(s): E11.9 - TYPE 2 DIABETES MELLITUS WITHOUT COMPLICATIONS Qualifiers: Diabetes mellitus type: other specified (including JAVAD) Diabetes mellitus mcc insulin use: without intermodal owner operator truck driver use Diabetes mellitus complication status: without complication Qualified Code(s): E13.9 - Other specified diabetes mellitus without complications Assessment/Plan Lasix IVP To monitor electrolytes, renal function; sodium is better; creatinine is trending up. To monitor BGM Cardio consult AM labs. DVT prophylaxis PT eval.
[2018-02-16] MEDS: INSULIN SLIDING SCALE (NOVOLOG) 1 VIAL SQ SCH ×3 (12:49→21:12)
--- NOTE | 2018-02-16 13:24 | CON.CARD ---
Consult Consult Specialty:: Cardiology Referred by:: Jam Sunshine MD Reason for Consultation:: Dyspnea on exertion - History of Present Illness Chief Complaint: Dyspnea on exertion History of Present Illness: Patient is an 82 year old female with history of hypertension, hypercholesterolemia, type 2 diabetes mellitus, osteoarthritis, hypothyroidism, CKD and LV diastolic dysfunction who presented with [place], weakness about a week ago, LE edema, last night she developed orthopnea and PND with difficulty sleeping, reports compliance with diet and medications. - History Source History Provided By: Patient Limitations to Obtaining History: No Limitations - Past Medical History Cardio/Vascular: Yes: CAD (non-obstructive), CHF, HTN, Hyperlipdemia Gastrointestinal: Yes: GERD Renal/: Yes: Renal Inusuff Endocrine: Yes: Diabetes Mellitus (Insulin dependent), Hypothyroidism - Past Surgical History Past Surgical History: Yes: Hysterectomy ([place], BSO in 1981), Oopherectomy - Alcohol/Substance Use Hx Alcohol Use: No History of Substance Use: reports: None - Smoking History Smoking history: Never smoked Have you smoked in the past 12 months: No Aproximately how many cigarettes per day: 0 - Social History Usual Living Arrangement: With Spouse ADL: Independent History of Recent Travel: Yes (WENT TO [facility] TWO YEARS AGO) Home Medications - Allergies Allergies/Adverse Reactions: Allergies Allergy/AdvReac Type Severity Reaction Status Date / Time No Known Allergies Allergy Verified 02/15/18 13:11 - Home Medications Home Medications: Ambulatory Orders Ranitidine HCl [Zantac] 150 mg PO BID #60 tablet 06/15/15 Aspirin Coated [Ecotrin -] 81 mg PO DAILY #30 tablet.ec 07/09/16 Carvedilol [Coreg -] 12.5 mg PO BID #180 tablet 07/09/16 Levothyroxine [Synthroid -] 50 mcg PO DAILY #90 tablet 07/09/16 Allopurinol [Zyloprim -] 100 mg PO DAILY 10/02/17 Atorvastatin Ca [Lipitor] 10 mg PO HS 10/02/17 Gabapentin [Neurontin -] 300 mg PO BID 10/02/17 Glipizide [Glucotrol -] 5 mg PO TID 10/02/17 Furosemide 80 mg PO DAILY 11/08/17 Acetaminophen [Tylenol .Extra-Strength -] 500 mg PO Q6H PRN tablet 11/12/17 Tamsulosin HCl [Flomax -] 0.4 mg PO DAILY@0830 #90 cap.er.24h 11/12/17 hydrALAZINE HCL [Apresoline -] 50 mg PO TID #90 tablet 11/12/17 Insulin Glargine,Hum.rec.anlog [Lantus Solostar] 18 unit SQ HS 02/15/18 Insulin Lispro [Humalog] 6 - 16 unit SQ DAILY 02/15/18 Isosorbide Mononitrate [Imdur -] 90 mg PO DAILY 02/15/18 Family Disease History - Family Disease History Family Disease History: Diabetes: Brother, Sister, Other: Father ( in his 50s ? etiology) Review of Systems - Review of Systems Respiratory: reports: Orthopnea, PND, SOB on Exertion Vital Signs: Vital Signs Temperature 97.6 F 02/16/18 13:01 Pulse Rate 63 02/16/18 13:01 Respiratory Rate 16 02/16/18 13:01 Blood Pressure 113/56 02/16/18 13:01 O2 Sat by Pulse Oximetry (%) 97 02/16/18 09:00 Constitutional: Yes: No Distress, Calm Neck: Yes: Supple Respiratory: Yes: Regular, Diminished, On Nasal O2 Gastrointestinal: Yes: Normal Bowel Sounds, Soft, Abdomen, Obese Cardiovascular: Yes: Regular Rate and Rhythm JVD: No Carotid Bruit: No Heart Sounds: Yes: S1, S2 Murmur: Yes: Systolic Murmur, Grade 1 Edema: No - Other Data Labs, Other Data: CBC, BMP 02/16/18 06:30 02/16/18 06:30 Troponin, BNP 02/15/18 02/15/18 02/16/18 15:45 15:45 06:30 Troponin I < 0.02 < 0.02 B-Natriuretic Peptide 356.96 Cancelled Troponin, BNP 02/15/18 02/15/18 02/16/18 15:45 15:45 06:30 Troponin I < 0.02 < 0.02 B-Natriuretic Peptide 356.96 Cancelled NSR @ [address]-T changes Ejection Fraction %: LVEF > or = 40 % Imaging - Results Chest X-ray: Report Reviewed (NAD) Problem List - Problems (1) CAD (coronary artery disease) Code(s): I25.10 - ATHSCL HEART DISEASE OF [place] CORONARY ARTERY W/O ANG PCTRS Qualifiers: Coronary Disease-Associated Artery/Lesion type: [place] artery [place] vs. transplanted heart: [place] heart Associated angina: with unspecified angina Qualified Code(s): I25.119 - Atherosclerotic heart disease of [place] coronary artery with unspecified angina pectoris (2) CKD (chronic kidney disease) stage 3, GFR 30-59 ml/min Code(s): N18.3 - CHRONIC KIDNEY DISEASE, STAGE 3 (MODERATE) (3) Diabetes mellitus with diabetic cardiomyopathy Code(s): E11.59 - TYPE 2 DIABETES MELLITUS WITH OTH CIRCULATORY COMPLICATIONS; I43 - CARDIOMYOPATHY IN DISEASES CLASSIFIED ELSEWHERE (4) Endothelial dysfunction of coronary artery Code(s): I99.8 - OTHER DISORDER OF CIRCULATORY SYSTEM (5) Hyperlipidemia Code(s): E78.5 - HYPERLIPIDEMIA, UNSPECIFIED Qualifiers: Hyperlipidemia type: pure hypercholesterolemia Qualified Code(s): E78.00 - Pure hypercholesterolemia, unspecified; E78.0 - Pure hypercholesterolemia (6) Hypertension Code(s): I10 - ESSENTIAL (PRIMARY) HYPERTENSION Qualifiers: Hypertension type: essential hypertension Qualified Code(s): I10 - Essential (primary) hypertension (7) Hypothyroidism Code(s): E03.9 - HYPOTHYROIDISM, UNSPECIFIED Qualifiers: Hypothyroidism type: unspecified Qualified Code(s): E03.9 - Hypothyroidism , unspecified (8) Acute on chronic diastolic congestive heart failure Code(s): I50.33 - ACUTE ON CHRONIC DIASTOLIC (CONGESTIVE) HEART FAILURE Assessment/Plan [facility] & coronary angiography performed 01/04/16 revealed non-obstructive CAD MPI study dated 11/12/2015 revealed No ischemia with normal LV function LVEF 79% Echocardiography dated 11/08/2017 revealed moderate LVH normal LV size and function, MR and TR 1. Acute on chronic diastolic failure 2. Non-obstructive CAD angina pectoris endothelial dysfunction 3. Aortic valve sclerosis/stenosis mild in severity 4. HTN 5. NIDDM 6. Hypercholesterolemia 7. Hypothyroidism 8. Acute on chronic CKD 9. Anemia PLAN: 1. IV diuresis with monitor diuretic response, renal function and electrolytes 2. Continue Coreg 12.5 bid, ASA 81 qd, Lipitor 10 qhs, Imdur 90 qd, hydralazine 50 tid 3. Ideally should be on ACEI or ARBS pending renal function stabilization 4. Thank you for consultative opportunity
[2018-02-16] MEDS: INSULIN (LEVEMIR) 100 UNITS/ML UNITS SQ SCH (21:11)
[2018-02-16] MEDS ORDERED: INSULIN (LEVEMIR) 100 UNITS/ML UNITS SQ ONE (22:32)
[2018-02-17] MEDS: hydrALAZINE HCL 50 MG TABLET (FP) PO SCH ×3 (06:04→21:32)
[2018-02-17] MEDS: ACETAMINOPHEN 500 MG TABLET (FP) PO PRN (06:04)
[2018-02-17] MEDS: LEVOTHYROXINE NA 50 MCG TABLET (FP) PO SCH (06:04)
[2018-02-17] MEDS: glipiZIDE 5 MG TABLET (FP) PO SCH ×3 (06:04→17:09)
[2018-02-17] MEDS: INSULIN SLIDING SCALE (NOVOLOG) 1 VIAL SQ SCH ×4 (06:05→21:32)
[2018-02-17 08:15] LABS: HEMATOCRIT 31.2 % (32.4-45.2); HEMOGLOBIN 10.6 GM/dL (10.7-15.3); MCH 29.6 pg (25.7-33.7); MEAN CELL VOLUME 87.1 fl (80-96); MEAN PLT VOLUME 7.7 fl (7.5-11.1); PLATELET COUNT 196 K/MM3 (134-434); RBC 3.58 M/mm3 (3.60-5.2); RDW 14.2 % (11.6-15.6); WHITE BLOOD COUNT 8.7 K/mm3 (4.0-10.0)
[2018-02-17] MEDS: TAMSULOSIN HCL 0.4 MG CAP.ER.24H (FP) PO SCH (08:16)
--- NOTE | 2018-02-17 08:26 | PN ---
Progress Note, Physician Chief Complaint: on / off abdominal discomfort and distension; said she saw GI dr Holliday recently and had abdomen CT - reviewed c/w constipation; ordered miralax; will ask GI in eval cardiac meds adjusted - had episodic low BP - Current Medication List Current Medications: Active Medications Acetaminophen (Tylenol -) 500 mg PO Q6H PRN PRN Reason: PAIN LEVEL 1-5 Last Admin: 02/17/18 06:04 Dose: 500 mg Allopurinol (Zyloprim -) 100 mg PO DAILY [facility] Last Admin: 02/16/18 09:09 Dose: 100 mg Aspirin (Ecotrin -) 81 mg PO DAILY [facility] Last Admin: 02/16/18 09:09 Dose: 81 mg Atorvastatin Calcium (Lipitor -) 10 mg PO HS [facility] Last Admin: 02/16/18 21:11 Dose: 10 mg Carvedilol (Coreg -) 12.5 mg PO BID [facility] Last Admin: 02/16/18 21:11 Dose: 12.5 mg Furosemide (Lasix Injection -) 80 mg IVPUSH DAILY [facility] Last Admin: 02/16/18 09:02 Dose: 80 mg Gabapentin (Neurontin -) 300 mg PO BID [facility] Last Admin: 02/16/18 21:11 Dose: 300 mg Glipizide (Glucotrol -) 5 mg PO TIDAC [facility] Last Admin: 02/17/18 06:04 Dose: 5 mg Heparin Sodium (Porcine) (Heparin -) 5,000 unit SQ BID [facility] Last Admin: 02/16/18 21:11 Dose: 5,000 unit Hydralazine HCl (Apresoline -) 50 mg PO TID [facility] Last Admin: 02/17/18 06:04 Dose: 50 mg Insulin Aspart (Novolog Vial Sliding Scale -) 1 vial SQ [facility]; Protocol Last Admin: 02/17/18 06:05 Dose: Not Given Insulin Detemir (Levemir Vial) 15 units SQ [facility] Last Admin: 02/16/18 21:11 Dose: 15 units Isosorbide Mononitrate (Imdur -) 90 mg PO DAILY [facility] Last Admin: 02/16/18 09:08 Dose: 90 mg Levothyroxine Sodium (Synthroid -) 50 mcg PO DAILY@0700 [facility] Last Admin: 02/17/18 06:04 Dose: 50 mcg Ranitidine HCl (Zantac -) 150 mg PO BID [facility] Last Admin: 02/16/18 21:11 Dose: 150 mg Tamsulosin HCl (Flomax -) 0.4 mg PO DAILY@0830 [facility] Last Admin: 02/17/18 08:16 Dose: 0.4 mg - Objective Vital Signs: Vital Signs Temperature 98.7 F 02/17/18 06:48 Pulse Rate 80 02/17/18 06:48 Respiratory Rate 20 02/17/18 06:48 Blood Pressure 119/57 02/17/18 06:48 O2 Sat by Pulse Oximetry (%) 96 02/16/18 21:00 Constitutional: Yes: No Distress, Calm Eyes: Yes: Conjunctiva Clear HENT: Yes: Atraumatic Neck: Yes: Supple Cardiovascular: Yes: Regular Rate and Rhythm Respiratory: Yes: CTA Bilaterally Gastrointestinal: Yes: Soft. No: Tenderness Genitourinary: No: Hematuria Musculoskeletal: No: Joint Stiffness, Joint Swelling Extremities: No: Cold, Cool, Cyanosis Edema: No Integumentary: No: Rash, Venous Stasis Changes Neurological: Yes: WNL, Alert, Oriented ...Motor Strength: WNL Psychiatric: Yes: WNL, Alert, Oriented. No: Agitated, Suicidal Ideation Labs: CBC, BMP 02/17/18 07:38 - ....Imaging Other: Report Reviewed Assessment/Plan This is a 82 year old woman with hx of CKD, CHF, DM type 2 admitted with CHF exac, ARF/CRF, abdominal pain cardio f/u' renal and GI eval IV lasix adjust BP meds f/u labs miralax prn falls PFX dw pt and staff
[2018-02-17 08:52] LABS: ALBUMIN 3.4 g/dl (3.4-5.0); ANION GAP 7 MMOL/L (8-16); BILIRUBIN,TOTAL 0.5 mg/dL (0.2-1.0); BLOOD UREA NITROGEN 37 mg/dL (7-18); CALCIUM 9.2 mg/dL (8.5-10.1); CHLORIDE 97 mmol/L (98-107); CO2 33 mmol/L (21-32); GLUCOSE,RANDOM 95 mg/dL (74-106); POTASSIUM 4.2 mmol/L (3.5-5.1); SGOT/AST 18 U/L (15-37); SGPT/ALT 17 U/L (12-78); SODIUM 137 mmol/L (136-145); TOT PROT 6.7 g/dl (6.4-8.2)
[2018-02-17 08:53] LABS: ALK PHOS 102 U/L (45-117); CREATININE 2.3 mg/dL (0.55-1.02)
[2018-02-17] MEDS: CARVEDILOL 12.5 MG TABLET (FP) PO SCH ×2 (09:05→21:33)
[2018-02-17] MEDS: RANITIDINE HCL 150 MG TABLET (FP) PO SCH ×2 (09:05→21:32)
[2018-02-17] MEDS: HEPARIN NA (PORCINE) 5,000 UNITS/ML 1ML VIAL SQ SCH ×2 (09:05→21:33)
[2018-02-17] MEDS: GABAPENTIN 300 MG CAPSULE (FP) PO SCH ×2 (09:05→21:33)
[2018-02-17] MEDS: ALLOPURINOL 100 MG TABLET (FP) PO SCH (09:05)
[2018-02-17] MEDS: ASPIRIN COATED 81 MG TABLET.EC PO SCH (09:05)
[2018-02-17] MEDS: ISOSORBIDE MONONITRATE 30 MG TAB.SR.24H (FP) PO SCH (09:05)
[2018-02-17] MEDS: FUROSEMIDE 40 MG/4 ML INJECTABLE VIAL IVPUSH SCH (09:05)
--- NOTE | 2018-02-17 11:15 | CONSULT ---
Consult - text type - Consultation Consultation Note: Renal Consult for CKD This is a 82 year old woman with hx of CKD, CHF, DM type 2 who presented with complaints of abd pain, LE swelling and mild sob. Pt seen at the bedside this am, feels a little better, sob improved but abd discomfort persists. No flank pain, N/V/D. + Constipation. Urinating well. LE edema improved. No flank pain, dysuria. PMhx: as above Allergies: NKDA Family Hx: NC Social hx: No T/A/D ROS: as per HPI all other pertinent ros negative Home Medications Medication Instructions Recorded Ranitidine HCl [Zantac] 150 mg PO BID #60 tablet 06/15/15 Aspirin Coated [Ecotrin -] 81 mg PO DAILY #30 tablet.ec 07/09/16 Carvedilol [Coreg -] 12.5 mg PO BID #180 tablet 07/09/16 Levothyroxine [Synthroid -] 50 mcg PO DAILY #90 tablet 07/09/16 Allopurinol [Zyloprim -] 100 mg PO DAILY 10/02/17 Atorvastatin Ca [Lipitor] 10 mg PO HS 10/02/17 Gabapentin [Neurontin -] 300 mg PO BID 10/02/17 Glipizide [Glucotrol -] 5 mg PO TID 10/02/17 Furosemide 80 mg PO DAILY 11/08/17 Acetaminophen [Tylenol 500 mg PO Q6H PRN tablet 11/12/17 .Extra-Strength -] Tamsulosin HCl [Flomax -] 0.4 mg PO DAILY@0830 #90 cap.er.24h 11/12/17 hydrALAZINE HCL [Apresoline -] 50 mg PO TID #90 tablet 11/12/17 Insulin Glargine,Hum.rec.anlog 18 unit SQ HS 02/15/18 [Lantus Solostar] Insulin Lispro [Humalog] 6 - 16 unit SQ DAILY 02/15/18 Isosorbide Mononitrate [Imdur -] 90 mg PO DAILY 02/15/18 Vital Signs Temperature 98.7 F 02/17/18 06:48 Pulse Rate 80 02/17/18 06:48 Respiratory Rate 20 02/17/18 06:48 Blood Pressure 119/57 02/17/18 06:48 O2 Sat by Pulse Oximetry (%) 96 02/16/18 21:00 Intake & Output 02/14/18 02/15/18 02/16/18 02/17/18 23:59 23:59 23:59 23:59 Intake Total 100 1800 775 Balance 100 1800 775 Weight 79.379 kg 79.492 kg 80.796 kg NAD awake and alert RRR, NO M/R CTA, no rales or wheeze soft, obese, Mild distension No LE edema CBC, BMP 02/17/18 07:38 02/17/18 07:38 Current Medications Acetaminophen (Tylenol -) 500 mg PO Q6H PRN PRN Reason: PAIN LEVEL 1-5 Last Admin: 02/17/18 06:04 Dose: 500 mg Allopurinol (Zyloprim -) 100 mg PO DAILY [facility] Last Admin: 02/17/18 09:05 Dose: 100 mg Aspirin (Ecotrin -) 81 mg PO DAILY [facility] Last Admin: 02/17/18 09:05 Dose: 81 mg Atorvastatin Calcium (Lipitor -) 10 mg PO HS [facility] Last Admin: 02/16/18 21:11 Dose: 10 mg Carvedilol (Coreg -) 12.5 mg PO BID [facility] Last Admin: 02/17/18 09:05 Dose: 12.5 mg Furosemide (Lasix Injection -) 80 mg IVPUSH DAILY [facility] Last Admin: 02/17/18 09:05 Dose: 80 mg Gabapentin (Neurontin -) 300 mg PO BID [facility] Last Admin: 02/17/18 09:05 Dose: 300 mg Glipizide (Glucotrol -) 5 mg PO TIDAC [facility] Last Admin: 02/17/18 10:37 Dose: 5 mg Heparin Sodium (Porcine) (Heparin -) 5,000 unit SQ BID [facility] Last Admin: 02/17/18 09:05 Dose: 5,000 unit Hydralazine HCl (Apresoline -) 50 mg PO TID [facility] Last Admin: 02/17/18 06:04 Dose: 50 mg Insulin Aspart (Novolog Vial Sliding Scale -) 1 vial SQ [facility]; Protocol Last Admin: 02/17/18 10:37 Dose: 6 units Insulin Detemir (Levemir Vial) 15 units SQ HS [facility] Last Admin: 02/16/18 21:11 Dose: 15 units Isosorbide Mononitrate (Imdur -) 90 mg PO DAILY [facility] Last Admin: 02/17/18 09:05 Dose: 90 mg Levothyroxine Sodium (Synthroid -) 50 mcg PO DAILY@0700 [facility] Last Admin: 02/17/18 06:04 Dose: 50 mcg Ranitidine HCl (Zantac -) 150 mg PO BID [facility] Last Admin: 02/17/18 09:05 Dose: 150 mg Tamsulosin HCl (Flomax -) 0.4 mg PO DAILY@0830 [facility] Last Admin: 02/17/18 08:16 Dose: 0.4 mg CBC, BMP 02/17/18 07:38 02/17/18 07:38 Current Medications Acetaminophen (Tylenol -) 500 mg PO Q6H PRN PRN Reason: PAIN LEVEL 1-5 Last Admin: 02/17/18 06:04 Dose: 500 mg Allopurinol (Zyloprim -) 100 mg PO DAILY [facility] Last Admin: 02/17/18 09:05 Dose: 100 mg Aspirin (Ecotrin -) 81 mg PO DAILY [facility] Last Admin: 02/17/18 09:05 Dose: 81 mg Atorvastatin Calcium (Lipitor -) 10 mg PO [facility] Last Admin: 02/16/18 21:11 Dose: 10 mg Carvedilol (Coreg -) 12.5 mg PO BID [facility] Last Admin: 02/17/18 09:05 Dose: 12.5 mg Furosemide (Lasix Injection -) 80 mg IVPUSH DAILY [facility] Last Admin: 02/17/18 09:05 Dose: 80 mg Gabapentin (Neurontin -) 300 mg PO BID [facility] Last Admin: 02/17/18 09:05 Dose: 300 mg Glipizide (Glucotrol -) 5 mg PO TIDAC [facility] Last Admin: 02/17/18 10:37 Dose: 5 mg Heparin Sodium (Porcine) (Heparin -) 5,000 unit SQ BID [facility] Last Admin: 02/17/18 09:05 Dose: 5,000 unit Hydralazine HCl (Apresoline -) 50 mg PO TID [facility] Last Admin: 02/17/18 06:04 Dose: 50 mg Insulin Aspart (Novolog Vial Sliding Scale -) 1 vial SQ [facility]; Protocol Last Admin: 02/17/18 10:37 Dose: 6 units Insulin Detemir (Levemir Vial) 15 units SQ [facility] Last Admin: 02/16/18 21:11 Dose: 15 units Isosorbide Mononitrate (Imdur -) 90 mg PO DAILY [facility] Last Admin: 02/17/18 09:05 Dose: 90 mg Levothyroxine Sodium (Synthroid -) 50 mcg PO DAILY@0700 [facility] Last Admin: 02/17/18 06:04 Dose: 50 mcg Ranitidine HCl (Zantac -) 150 mg PO BID [facility] Last Admin: 02/17/18 09:05 Dose: 150 mg Tamsulosin HCl (Flomax -) 0.4 mg PO DAILY@0830 [facility] Last Admin: 02/17/18 08:16 Dose: 0.4 mg 82 year old woman with hx of CKD, CHF, DM type 2 who presented with complaints of abd pain, LE swelling and mild sob. #CHF exacerbation #CKD #Abd pain #Anemia Renal function stable and at baseline at this time trend renal function and electrolytes while getting IV diuresis Low salt diet No indication for UMBRELLA MENDER at the present time work up for Abd pain as per primary Check iron studies for anemia, no indication for RADHA Thank you Will follow Wm Tian DO
[2018-02-17] MEDS ORDERED: INSULIN (NOVOLOG) ASPART 100 UNITS/ML 10ML VIAL ONE (21:20)
[2018-02-17] MEDS: INSULIN (LEVEMIR) 100 UNITS/ML UNITS SQ SCH (21:33)
[2018-02-17] MEDS: ATORVASTATIN CA 10 MG TABLET (FP) PO SCH (21:33)
[2018-02-18] MEDS: LEVOTHYROXINE NA 50 MCG TABLET (FP) PO SCH (06:14)
[2018-02-18] MEDS: glipiZIDE 5 MG TABLET (FP) PO SCH ×3 (06:14→16:54)
[2018-02-18] MEDS: INSULIN SLIDING SCALE (NOVOLOG) 1 VIAL SQ SCH ×4 (06:14→22:26)
[2018-02-18] MEDS: hydrALAZINE HCL 50 MG TABLET (FP) PO SCH ×2 (06:14→14:04)
--- NOTE | 2018-02-18 08:30 | PN ---
Progress Note, Physician - Current Medication List Current Medications: Active Medications Acetaminophen (Tylenol -) 500 mg PO Q6H PRN PRN Reason: PAIN LEVEL 1-5 Last Admin: 02/17/18 06:04 Dose: 500 mg Allopurinol (Zyloprim -) 100 mg PO DAILY [facility] Last Admin: 02/17/18 09:05 Dose: 100 mg Aspirin (Ecotrin -) 81 mg PO DAILY [facility] Last Admin: 02/17/18 09:05 Dose: 81 mg Atorvastatin Calcium (Lipitor -) 10 mg PO HS [facility] Last Admin: 02/17/18 21:33 Dose: 10 mg Carvedilol (Coreg -) 12.5 mg PO BID [facility] Last Admin: 02/17/18 21:33 Dose: 12.5 mg Furosemide (Lasix Injection -) 80 mg IVPUSH DAILY [facility] Last Admin: 02/17/18 09:05 Dose: 80 mg Gabapentin (Neurontin -) 300 mg PO BID [facility] Last Admin: 02/17/18 21:33 Dose: 300 mg Glipizide (Glucotrol -) 5 mg PO TIDAC [facility] Last Admin: 02/18/18 06:14 Dose: 5 mg Heparin Sodium (Porcine) (Heparin -) 5,000 unit SQ BID [facility] Last Admin: 02/17/18 21:33 Dose: 5,000 unit Hydralazine HCl (Apresoline -) 50 mg PO TID [facility] Last Admin: 02/18/18 06:14 Dose: 50 mg Insulin Aspart (Novolog Vial Sliding Scale -) 1 vial SQ [facility]; Protocol Last Admin: 02/18/18 06:14 Dose: 2 units Insulin Detemir (Levemir Vial) 15 units SQ [facility] Last Admin: 02/17/18 21:33 Dose: 15 units Isosorbide Mononitrate (Imdur -) 90 mg PO DAILY [facility] Last Admin: 02/17/18 09:05 Dose: 90 mg Levothyroxine Sodium (Synthroid -) 50 mcg PO DAILY@0700 [facility] Last Admin: 02/18/18 06:14 Dose: 50 mcg Ranitidine HCl (Zantac -) 150 mg PO BID [facility] Last Admin: 02/17/18 21:32 Dose: 150 mg Tamsulosin HCl (Flomax -) 0.4 mg PO DAILY@0830 [facility] Last Admin: 02/17/18 08:16 Dose: 0.4 mg - Objective Vital Signs: Vital Signs Temperature 97.9 F 02/18/18 06:00 Pulse Rate 61 02/18/18 06:00 Respiratory Rate 18 02/18/18 06:00 Blood Pressure 130/67 02/18/18 06:00 O2 Sat by Pulse Oximetry (%) 96 02/17/18 21:00 Labs: CBC, BMP 02/17/18 07:38 Assessment/Plan This is a 82 year old [place] woman with hx of CKD, CHF, DM type 2 admitted with CHF exac, ARF/CRF, abdominal pain cardio f/u' renal and GI eval IV lasix adjust BP meds miralax prn falls PFX dw pt and staff
[2018-02-18 08:43] LABS: CHLORIDE 97 mmol/L (98-107); POTASSIUM 4.2 mmol/L (3.5-5.1); SODIUM 137 mmol/L (136-145)
[2018-02-18 08:54] LABS: ANION GAP 11 MMOL/L (8-16); BLOOD UREA NITROGEN 45 mg/dL (7-18); CALCIUM 9.3 mg/dL (8.5-10.1); CO2 29 mmol/L (21-32); CREATININE 2.3 mg/dL (0.55-1.02); GLUCOSE,RANDOM 137 mg/dL (74-106); MAGNESIUM 2.6 mg/dL (1.8-2.4); PHOSPHOROUS 3.7 mg/dL (2.5-4.9)
[2018-02-18] MEDS: TAMSULOSIN HCL 0.4 MG CAP.ER.24H (FP) PO SCH (09:09)
[2018-02-18] MEDS: CARVEDILOL 12.5 MG TABLET (FP) PO SCH ×2 (09:14→22:26)
[2018-02-18] MEDS: ALLOPURINOL 100 MG TABLET (FP) PO SCH (09:14)
[2018-02-18] MEDS: RANITIDINE HCL 150 MG TABLET (FP) PO SCH ×2 (09:14→22:26)
[2018-02-18] MEDS: ASPIRIN COATED 81 MG TABLET.EC PO SCH (09:14)
[2018-02-18] MEDS: GABAPENTIN 300 MG CAPSULE (FP) PO SCH ×2 (09:14→22:26)
[2018-02-18] MEDS: HEPARIN NA (PORCINE) 5,000 UNITS/ML 1ML VIAL SQ SCH ×2 (09:15→22:25)
[2018-02-18] MEDS: ISOSORBIDE MONONITRATE 30 MG TAB.SR.24H (FP) PO SCH (09:15)
[2018-02-18] MEDS: FUROSEMIDE 40 MG/4 ML INJECTABLE VIAL IVPUSH SCH (09:15)
[2018-02-18] MEDS ORDERED: INSULIN (NOVOLOG) ASPART 100 UNITS/ML 10ML VIAL ONE (11:44)
--- NOTE | 2018-02-18 15:12 | PN ---
Progress Note, Physician History of Present Illness: [place], weakness, LE edema, orthopnea and PND improving with diuresis. - Current Medication List Current Medications: Active Medications Acetaminophen (Tylenol -) 500 mg PO Q6H PRN PRN Reason: PAIN LEVEL 1-5 Last Admin: 02/17/18 06:04 Dose: 500 mg Allopurinol (Zyloprim -) 100 mg PO DAILY [facility] Last Admin: 02/18/18 09:14 Dose: 100 mg Aspirin (Ecotrin -) 81 mg PO DAILY [facility] Last Admin: 02/18/18 09:14 Dose: 81 mg Atorvastatin Calcium (Lipitor -) [address] [facility] Last Admin: 02/17/18 21:33 Dose: 10 mg Carvedilol (Coreg -) 12.5 mg PO BID [facility] Last Admin: 02/18/18 09:14 Dose: Not Given Furosemide (Lasix Injection -) 80 mg IVPUSH DAILY [facility] Last Admin: 02/18/18 09:15 Dose: Not Given Gabapentin (Neurontin -) 300 mg PO BID [facility] Last Admin: 02/18/18 09:14 Dose: 300 mg Glipizide (Glucotrol -) 5 mg PO TIDAC [facility] Last Admin: 02/18/18 11:45 Dose: 5 mg Heparin Sodium (Porcine) (Heparin -) 5,000 unit SQ BID [facility] Last Admin: 02/18/18 09:15 Dose: 5,000 unit Hydralazine HCl (Apresoline -) 50 mg PO TID [facility] Last Admin: 02/18/18 14:04 Dose: 50 mg Insulin Aspart (Novolog Vial Sliding Scale -) 1 vial SQ [facility]; Protocol Last Admin: 02/18/18 11:43 Dose: 4 units Insulin Detemir (Levemir Vial) [address] [facility] Last Admin: 02/17/18 21:33 Dose: 15 units Isosorbide Mononitrate (Imdur -) 90 mg PO DAILY [facility] Last Admin: 02/18/18 09:15 Dose: Not Given Levothyroxine Sodium (Synthroid -) 50 mcg PO DAILY@0700 [facility] Last Admin: 02/18/18 06:14 Dose: 50 mcg Ranitidine HCl (Zantac -) 150 mg PO BID [facility] Last Admin: 02/18/18 09:14 Dose: 150 mg Tamsulosin HCl (Flomax -) 0.4 mg PO DAILY@0830 [facility] Last Admin: 02/18/18 09:09 Dose: 0.4 mg - Objective Vital Signs: Vital Signs Temperature 97.7 F 02/18/18 14:10 Pulse Rate 58 L 02/18/18 14:10 Respiratory Rate 20 02/18/18 10:00 Blood Pressure 130/53 02/18/18 14:12 O2 Sat by Pulse Oximetry (%) 96 02/17/18 21:00 Constitutional: Yes: No Distress, Calm Neck: Yes: Supple Cardiovascular: Yes: Regular Rate and Rhythm Respiratory: Yes: Regular, Diminished, On Nasal O2 Gastrointestinal: Yes: Normal Bowel Sounds, Soft, Abdomen, Obese Edema: No Labs: CBC, BMP 02/17/18 07:38 02/18/18 07:15 Problem List - Problems (1) CAD (coronary artery disease) Code(s): I25.10 - ATHSCL HEART DISEASE OF [place] CORONARY ARTERY W/O ANG PCTRS Qualifiers: Coronary Disease-Associated Artery/Lesion type: [place] artery [place] vs. transplanted heart: [place] heart Associated angina: with unspecified angina Qualified Code(s): I25.119 - Atherosclerotic heart disease of [place] coronary artery with unspecified angina pectoris (2) CKD (chronic kidney disease) stage 3, GFR 30-59 ml/min Code(s): N18.3 - CHRONIC KIDNEY DISEASE, STAGE 3 (MODERATE) (3) Diabetes mellitus with diabetic cardiomyopathy Code(s): E11.59 - TYPE 2 DIABETES MELLITUS WITH OTH CIRCULATORY COMPLICATIONS; I43 - CARDIOMYOPATHY IN DISEASES CLASSIFIED ELSEWHERE (4) Endothelial dysfunction of coronary artery Code(s): I99.8 - OTHER DISORDER OF CIRCULATORY SYSTEM (5) Hyperlipidemia Code(s): E78.5 - HYPERLIPIDEMIA, UNSPECIFIED Qualifiers: Hyperlipidemia type: pure hypercholesterolemia Qualified Code(s): E78.00 - Pure hypercholesterolemia, unspecified; E78.0 - Pure hypercholesterolemia (6) Hypertension Code(s): I10 - ESSENTIAL (PRIMARY) HYPERTENSION Qualifiers: Hypertension type: essential hypertension Qualified Code(s): I10 - Essential (primary) hypertension (7) Hypothyroidism Code(s): E03.9 - HYPOTHYROIDISM, UNSPECIFIED Qualifiers: Hypothyroidism type: unspecified Qualified Code(s): E03.9 - Hypothyroidism , unspecified (8) Acute on chronic diastolic congestive heart failure Code(s): I50.33 - ACUTE ON CHRONIC DIASTOLIC (CONGESTIVE) HEART FAILURE Assessment/Plan [facility] & coronary angiography performed 01/04/16 revealed non-obstructive CAD MPI study dated 11/12/2015 revealed No ischemia with normal LV function LVEF 79% Echocardiography dated 11/08/2017 revealed moderate LVH normal LV size and function, MR and TR 1. Acute on chronic diastolic failure improving 2. Non-obstructive CAD angina pectoris endothelial dysfunction 3. Aortic valve sclerosis/stenosis mild in severity 4. HTN 5. NIDDM 6. Hypercholesterolemia 7. Hypothyroidism 8. Acute on chronic CKD 9. Anemia PLAN: 1. Decrease IV diuresis with monitor diuretic response, renal function and electrolytes 2. Continue Coreg 12.5 bid, ASA 81 qd, Lipitor 10 qhs, Imdur 90 qd, hydralazine 50 tid 3. Ideally should be on ACEI or ARBS pending renal function stabilization
[2018-02-18] MEDS: hydrALAZINE HCL 25 MG TABLET (FP) PO SCH (22:26)
[2018-02-18] MEDS: ATORVASTATIN CA 10 MG TABLET (FP) PO SCH (22:26)
[2018-02-18] MEDS: INSULIN (LEVEMIR) 100 UNITS/ML UNITS SQ SCH (22:26)
[2018-02-19] MEDS: ACETAMINOPHEN 500 MG TABLET (FP) PO PRN (01:31)
[2018-02-19] MEDS: glipiZIDE 5 MG TABLET (FP) PO SCH ×3 (06:18→16:31)
[2018-02-19] MEDS: hydrALAZINE HCL 25 MG TABLET (FP) PO SCH ×3 (06:18→21:29)
[2018-02-19] MEDS: INSULIN SLIDING SCALE (NOVOLOG) 1 VIAL SQ SCH ×4 (06:18→21:29)
[2018-02-19] MEDS: LEVOTHYROXINE NA 50 MCG TABLET (FP) PO SCH (06:18)
[2018-02-19] MEDS: ASPIRIN COATED 81 MG TABLET.EC PO SCH (09:35)
[2018-02-19] MEDS: HEPARIN NA (PORCINE) 5,000 UNITS/ML 1ML VIAL SQ SCH ×2 (09:35→21:30)
[2018-02-19] MEDS: ALLOPURINOL 100 MG TABLET (FP) PO SCH (09:35)
[2018-02-19] MEDS: ISOSORBIDE MONONITRATE 30 MG TAB.SR.24H (FP) PO SCH (09:35)
[2018-02-19] MEDS: GABAPENTIN 300 MG CAPSULE (FP) PO SCH ×2 (09:35→21:29)
[2018-02-19] MEDS: CARVEDILOL 12.5 MG TABLET (FP) PO SCH ×2 (09:36→21:29)
[2018-02-19] MEDS: RANITIDINE HCL 150 MG TABLET (FP) PO SCH ×2 (09:36→21:29)
[2018-02-19] MEDS: TAMSULOSIN HCL 0.4 MG CAP.ER.24H (FP) PO SCH (09:36)
[2018-02-19 09:37] LABS: ANION GAP 9 MMOL/L (8-16); BLOOD UREA NITROGEN 46 mg/dL (7-18); CHLORIDE 97 mmol/L (98-107); CO2 31 mmol/L (21-32); CREATININE 2.1 mg/dL (0.55-1.02); GLUCOSE,RANDOM 269 mg/dL (74-106); MAGNESIUM 2.8 mg/dL (1.8-2.4); PHOSPHOROUS 3.9 mg/dL (2.5-4.9); POTASSIUM 4.4 mmol/L (3.5-5.1); SODIUM 137 mmol/L (136-145)
[2018-02-19] MEDS ORDERED: PT OWN MED DRAWER 7, Y5N ONE (09:58)
[2018-02-19] MEDS ORDERED: FUROSEMIDE 40 MG/4 ML INJECTABLE VIAL IVPUSH SCH (10:00)
[2018-02-19] MEDS ORDERED: INSULIN (NOVOLOG) ASPART 100 UNITS/ML 10ML VIAL ONE ×2 (10:46→16:12)
--- NOTE | 2018-02-19 12:09 | PN ---
Progress Note (short form) - Note Progress Note: Renal follow up for CKD with volume overload Pt seen and examined at the bedside no acute complaints no sob, cp still has mild RUQ abd pain tolerating diet and making urine Vital Signs Temperature 97.9 F 02/19/18 08:00 Pulse Rate 56 L 02/19/18 08:00 Respiratory Rate 20 02/19/18 08:00 Blood Pressure 122/61 02/19/18 08:00 O2 Sat by Pulse Oximetry (%) 96 02/19/18 08:00 Intake & Output 02/16/18 02/17/18 02/18/18 02/19/18 23:59 23:59 23:59 23:59 Intake Total 1800 1850 1225 500 Balance 1800 1850 1225 500 Weight 79.492 kg 80.796 kg 77.383 kg 77.882 kg NAD awake and alert MMM RRR CTA soft NT/ND trace LE edema CBC, BMP 02/17/18 07:38 02/19/18 08:40 Current Medications Acetaminophen (Tylenol -) 500 mg PO Q6H PRN PRN Reason: PAIN LEVEL 1-5 Last Admin: 02/19/18 01:31 Dose: 500 mg Allopurinol (Zyloprim -) 100 mg PO DAILY [facility] Last Admin: 02/19/18 09:35 Dose: 100 mg Aspirin (Ecotrin -) 81 mg PO DAILY [facility] Last Admin: 02/19/18 09:35 Dose: 81 mg Atorvastatin Calcium (Lipitor -) 10 mg PO HS [facility] Last Admin: 02/18/18 22:26 Dose: 10 mg Carvedilol (Coreg -) 12.5 mg PO BID [facility] Last Admin: 02/19/18 09:36 Dose: Not Given Furosemide (Lasix Injection -) 40 mg IVPUSH DAILY [facility] Last Admin: 02/19/18 09:35 Dose: 40 mg Gabapentin (Neurontin -) 300 mg PO BID [facility] Last Admin: 02/19/18 09:35 Dose: 300 mg Glipizide (Glucotrol -) 5 mg PO TIDAC [facility] Last Admin: 02/19/18 10:53 Dose: 5 mg Heparin Sodium (Porcine) (Heparin -) 5,000 unit SQ BID [facility] Last Admin: 02/19/18 09:35 Dose: 5,000 unit Hydralazine HCl (Apresoline -) 25 mg PO TID [facility] Last Admin: 02/19/18 06:18 Dose: 25 mg Insulin Aspart (Novolog Vial Sliding Scale -) 1 vial SQ ACHS [facility]; Protocol Last Admin: 02/19/18 10:53 Dose: 8 units Insulin Detemir (Levemir Vial) 15 units SQ HS [facility] Last Admin: 02/18/18 22:26 Dose: 15 units Isosorbide Mononitrate (Imdur -) 90 mg PO DAILY [facility] Last Admin: 02/19/18 09:35 Dose: 90 mg Levothyroxine Sodium (Synthroid -) 50 mcg PO DAILY@0700 [facility] Last Admin: 02/19/18 06:18 Dose: 50 mcg Ranitidine HCl (Zantac -) 150 mg PO BID [facility] Last Admin: 02/19/18 09:36 Dose: 150 mg Tamsulosin HCl (Flomax -) 0.4 mg PO DAILY@0830 [facility] Last Admin: 02/19/18 09:36 Dose: 0.4 mg 82 year old woman with hx of CKD, CHF, DM type 2 who presented with complaints of abd pain, LE swelling and mild sob. #CHF exacerbation #CKD #Abd pain #Anemia Renal function stable, tolerating IV diuretics continue Lasix IV dialy, trend daily weights low salt diet no indication for FOOD TECHNOLOGIST Cardiology follow up work up for Abd discomfort as per primary/GI Wm Tian DO
--- NOTE | 2018-02-19 12:53 | PN ---
Progress Note, Physician Chief Complaint: in bed still with some abdominal pain on'off had small BM - to take miralax drink water; GI eval no CP/SOB - Current Medication List Current Medications: Active Medications Acetaminophen (Tylenol -) 500 mg PO Q6H PRN PRN Reason: PAIN LEVEL 1-5 Last Admin: 02/19/18 01:31 Dose: 500 mg Allopurinol (Zyloprim -) 100 mg PO DAILY [facility] Last Admin: 02/19/18 09:35 Dose: 100 mg Aspirin (Ecotrin -) 81 mg PO DAILY [facility] Last Admin: 02/19/18 09:35 Dose: 81 mg Atorvastatin Calcium (Lipitor -) 10 mg PO [facility] Last Admin: 02/18/18 22:26 Dose: 10 mg Carvedilol (Coreg -) 12.5 mg PO BID [facility] Last Admin: 02/19/18 09:36 Dose: Not Given Furosemide (Lasix Injection -) 40 mg IVPUSH DAILY [facility] Last Admin: 02/19/18 09:35 Dose: 40 mg Gabapentin (Neurontin -) 300 mg PO BID [facility] Last Admin: 02/19/18 09:35 Dose: 300 mg Glipizide (Glucotrol -) 5 mg PO TIDAC [facility] Last Admin: 02/19/18 10:53 Dose: 5 mg Heparin Sodium (Porcine) (Heparin -) 5,000 unit SQ BID [facility] Last Admin: 02/19/18 09:35 Dose: 5,000 unit Hydralazine HCl (Apresoline -) 25 mg PO TID [facility] Last Admin: 02/19/18 06:18 Dose: 25 mg Insulin Aspart (Novolog Vial Sliding Scale -) 1 vial SQ [facility]; Protocol Last Admin: 02/19/18 10:53 Dose: 8 units Insulin Detemir (Levemir Vial) 15 units SQ [facility] Last Admin: 02/18/18 22:26 Dose: 15 units Isosorbide Mononitrate (Imdur -) 90 mg PO DAILY [facility] Last Admin: 02/19/18 09:35 Dose: 90 mg Levothyroxine Sodium (Synthroid -) 50 mcg PO DAILY@0700 [facility] Last Admin: 02/19/18 06:18 Dose: 50 mcg Ranitidine HCl (Zantac -) 150 mg PO BID [facility] Last Admin: 02/19/18 09:36 Dose: 150 mg Tamsulosin HCl (Flomax -) 0.4 mg PO DAILY@0830 [facility] Last Admin: 02/19/18 09:36 Dose: 0.4 mg - Objective Vital Signs: Vital Signs Temperature 97.9 F 02/19/18 08:00 Pulse Rate 56 L 02/19/18 08:00 Respiratory Rate 20 02/19/18 08:00 Blood Pressure 122/61 02/19/18 08:00 O2 Sat by Pulse Oximetry (%) 96 02/19/18 08:00 Constitutional: Yes: No Distress, Calm Eyes: Yes: Conjunctiva Clear HENT: Yes: Atraumatic Neck: Yes: Supple Cardiovascular: Yes: Regular Rate and Rhythm Respiratory: Yes: CTA Bilaterally Gastrointestinal: Yes: Soft. No: Distention Genitourinary: No: CVA Tenderness - Left, CVA Tenderness - Right Musculoskeletal: No: Joint Stiffness, Joint Swelling Extremities: No: Cold, Cool, Cyanosis Edema: No Integumentary: No: Rash, Venous Stasis Changes Neurological: Yes: WNL, Alert, Oriented ...Motor Strength: WNL Psychiatric: Yes: WNL, Alert, Oriented. No: Agitated, Suicidal Ideation Labs: CBC, BMP 02/17/18 07:38 02/19/18 08:40 - ....Imaging Other: Report Reviewed Assessment/Plan This is a 82 year old [place]aur[place] woman with hx of CKD, CHF, DM type 2 admitted with CHF exac, ARF/CRF, abdominal pain cardio f/u renal and GI eval IV lasix adjust BP meds f/u labs miralax prn falls PFX dw pt and staff d/w pt's daughter Aicha
--- NOTE | 2018-02-19 16:24 | PN ---
Progress Note, Physician History of Present Illness: [place], weakness, LE edema, orthopnea and PND improving with diuresis. - Current Medication List Current Medications: Active Medications Acetaminophen (Tylenol -) 500 mg PO Q6H PRN PRN Reason: PAIN LEVEL 1-5 Last Admin: 02/19/18 01:31 Dose: 500 mg Allopurinol (Zyloprim -) 100 mg PO DAILY [facility] Last Admin: 02/19/18 09:35 Dose: 100 mg Aspirin (Ecotrin -) 81 mg PO DAILY [facility] Last Admin: 02/19/18 09:35 Dose: 81 mg Atorvastatin Calcium (Lipitor -) 10 mg PO [facility] Last Admin: 02/18/18 22:26 Dose: 10 mg Carvedilol (Coreg -) 12.5 mg PO BID [facility] Last Admin: 02/19/18 09:36 Dose: Not Given Furosemide (Lasix Injection -) 40 mg IVPUSH DAILY [facility] Last Admin: 02/19/18 09:35 Dose: 40 mg Gabapentin (Neurontin -) 300 mg PO BID [facility] Last Admin: 02/19/18 09:35 Dose: 300 mg Glipizide (Glucotrol -) 5 mg PO TIDAC [facility] Last Admin: 02/19/18 10:53 Dose: 5 mg Heparin Sodium (Porcine) (Heparin -) 5,000 unit SQ BID [facility] Last Admin: 02/19/18 09:35 Dose: 5,000 unit Hydralazine HCl (Apresoline -) 25 mg PO TID [facility] Last Admin: 02/19/18 14:00 Dose: 25 mg Insulin Aspart (Novolog Vial Sliding Scale -) 1 vial SQ [facility]; Protocol Last Admin: 02/19/18 10:53 Dose: 8 units Insulin Detemir (Levemir Vial) 15 units SQ [facility] Last Admin: 02/18/18 22:26 Dose: 15 units Isosorbide Mononitrate (Imdur -) 90 mg PO DAILY [facility] Last Admin: 02/19/18 09:35 Dose: 90 mg Levothyroxine Sodium (Synthroid -) 50 mcg PO DAILY@0700 [facility] Last Admin: 02/19/18 06:18 Dose: 50 mcg Ranitidine HCl (Zantac -) 150 mg PO BID [facility] Last Admin: 02/19/18 09:36 Dose: 150 mg Tamsulosin HCl (Flomax -) 0.4 mg PO DAILY@0830 [facility] Last Admin: 02/19/18 09:36 Dose: 0.4 mg - Objective Vital Signs: Vital Signs Temperature 97.5 F L 02/19/18 14:58 Pulse Rate 50 L 02/19/18 14:58 Respiratory Rate 20 02/19/18 14:58 Blood Pressure 122/54 02/19/18 14:58 O2 Sat by Pulse Oximetry (%) 96 02/19/18 08:00 Constitutional: Yes: No Distress, Calm Neck: Yes: Supple Cardiovascular: Yes: Regular Rate and Rhythm Respiratory: Yes: Regular, Diminished Gastrointestinal: Yes: Normal Bowel Sounds, Soft, Abdomen, Obese Edema: Yes Edema: LLE: Trace, RLE: Trace Labs: CBC, BMP 02/17/18 07:38 02/19/18 08:40 Problem List - Problems (1) CAD (coronary artery disease) Code(s): I25.10 - ATHSCL HEART DISEASE OF [place] CORONARY ARTERY W/O ANG PCTRS Qualifiers: Coronary Disease-Associated Artery/Lesion type: [place] artery [place] vs. transplanted heart: [place] heart Associated angina: with unspecified angina Qualified Code(s): I25.119 - Atherosclerotic heart disease of [place] coronary artery with unspecified angina pectoris (2) CKD (chronic kidney disease) stage 3, GFR 30-59 ml/min Code(s): N18.3 - CHRONIC KIDNEY DISEASE, STAGE 3 (MODERATE) (3) Diabetes mellitus with diabetic cardiomyopathy Code(s): E11.59 - TYPE 2 DIABETES MELLITUS WITH OTH CIRCULATORY COMPLICATIONS; I43 - CARDIOMYOPATHY IN DISEASES CLASSIFIED ELSEWHERE (4) Endothelial dysfunction of coronary artery Code(s): I99.8 - OTHER DISORDER OF CIRCULATORY SYSTEM (5) Hyperlipidemia Code(s): E78.5 - HYPERLIPIDEMIA, UNSPECIFIED Qualifiers: Hyperlipidemia type: pure hypercholesterolemia Qualified Code(s): E78.00 - Pure hypercholesterolemia, unspecified; E78.0 - Pure hypercholesterolemia (6) Hypertension Code(s): I10 - ESSENTIAL (PRIMARY) HYPERTENSION Qualifiers: Hypertension type: essential hypertension Qualified Code(s): I10 - Essential (primary) hypertension (7) Hypothyroidism Code(s): E03.9 - HYPOTHYROIDISM, UNSPECIFIED Qualifiers: Hypothyroidism type: unspecified Qualified Code(s): E03.9 - Hypothyroidism , unspecified (8) Acute on chronic diastolic congestive heart failure Code(s): I50.33 - ACUTE ON CHRONIC DIASTOLIC (CONGESTIVE) HEART FAILURE Assessment/Plan [facility] & coronary angiography performed 01/04/16 revealed non-obstructive CAD MPI study dated 11/12/2015 revealed No ischemia with normal LV function LVEF 79% Echocardiography dated 11/08/2017 revealed moderate LVH normal LV size and function, MR and TR 1. Acute on chronic diastolic failure improving 2. Non-obstructive CAD angina pectoris endothelial dysfunction 3. Aortic valve sclerosis/stenosis mild in severity 4. HTN 5. NIDDM 6. Hypercholesterolemia 7. Hypothyroidism 8. Acute on chronic CKD 9. Anemia PLAN: 1. Change IV diuresis to Demadex 40 qd with monitor diuretic response, renal function and electrolytes 2. Continue Coreg 12.5 bid, ASA 81 qd, Lipitor 10 qhs, Imdur 90 qd, hydralazine 50 tid 3. Ideally should be on ACEI or ARBS pending renal function stabilization
[2018-02-19] MEDS: INSULIN (LEVEMIR) 100 UNITS/ML UNITS SQ SCH (21:29)
[2018-02-19] MEDS: ATORVASTATIN CA 10 MG TABLET (FP) PO SCH (21:29)
[2018-02-19] MEDS: POLYETHYLENE GLYCOL 3350 119 GM BTL PO SCH (21:30)
[2018-02-20] MEDS ORDERED: INSULIN (NOVOLOG) ASPART 100 UNITS/ML 10ML VIAL ONE ×3 (06:14→20:58)
[2018-02-20] MEDS: hydrALAZINE HCL 25 MG TABLET (FP) PO SCH ×3 (06:22→21:27)
[2018-02-20] MEDS: LEVOTHYROXINE NA 50 MCG TABLET (FP) PO SCH (06:22)
[2018-02-20] MEDS: INSULIN SLIDING SCALE (NOVOLOG) 1 VIAL SQ SCH ×4 (06:22→21:30)
[2018-02-20] MEDS: glipiZIDE 5 MG TABLET (FP) PO SCH ×3 (06:22→16:35)
[2018-02-20] MEDS: TAMSULOSIN HCL 0.4 MG CAP.ER.24H (FP) PO SCH (08:01)
[2018-02-20 08:06] LABS: BASO % 0.5 % (0-2.0); EOS % 18.1 % (0-4.5); HEMATOCRIT 29.6 % (32.4-45.2); HEMOGLOBIN 9.8 GM/dL (10.7-15.3); LYMPH % 22.8 % (8-40); MCH 28.9 pg (25.7-33.7); MCHC 33.2 g/dl (32.0-36.0); MEAN CELL VOLUME 87.2 fl (80-96); MEAN PLT VOLUME 7.8 fl (7.5-11.1); MONO % 10.4 % (3.8-10.2); NEUT % 48.2 % (42.8-82.8); PLATELET COUNT 174 K/MM3 (134-434); RBC 3.39 M/mm3 (3.60-5.2); RDW 14.4 % (11.6-15.6); WHITE BLOOD COUNT 8.3 K/mm3 (4.0-10.0)
[2018-02-20 08:49] LABS: ANION GAP 7 MMOL/L (8-16); BLOOD UREA NITROGEN 49 mg/dL (7-18); CALCIUM 9.6 mg/dL (8.5-10.1); CHLORIDE 97 mmol/L (98-107); CO2 33 mmol/L (21-32); GLUCOSE,RANDOM 127 mg/dL (74-106); MAGNESIUM 2.6 mg/dL (1.8-2.4); POTASSIUM 4.6 mmol/L (3.5-5.1); SODIUM 137 mmol/L (136-145)
[2018-02-20 08:50] LABS: CREATININE 2.1 mg/dL (0.55-1.02)
[2018-02-20] MEDS ORDERED: PT OWN MED DRAWER 7, Y5N ONE ×3 (09:23→22:05)
[2018-02-20] MEDS: ALLOPURINOL 100 MG TABLET (FP) PO SCH (09:34)
[2018-02-20] MEDS: CARVEDILOL 12.5 MG TABLET (FP) PO SCH ×2 (09:34→21:27)
[2018-02-20] MEDS: TORSEMIDE 20 MG TABLET (FP) PO SCH (09:34)
[2018-02-20] MEDS: RANITIDINE HCL 150 MG TABLET (FP) PO SCH ×2 (09:34→21:27)
[2018-02-20] MEDS: ISOSORBIDE MONONITRATE 30 MG TAB.SR.24H (FP) PO SCH (09:34)
[2018-02-20] MEDS: GABAPENTIN 300 MG CAPSULE (FP) PO SCH ×2 (09:34→21:27)
[2018-02-20] MEDS: ASPIRIN COATED 81 MG TABLET.EC PO SCH (09:34)
[2018-02-20] MEDS: HEPARIN NA (PORCINE) 5,000 UNITS/ML 1ML VIAL SQ SCH ×2 (09:34→21:26)
[2018-02-20] MEDS: POLYETHYLENE GLYCOL 3350 119 GM BTL PO SCH (09:35)
--- NOTE | 2018-02-20 10:01 | PN ---
Progress Note, Physician History of Present Illness: Pt w/o CP, palpitations, dizziness. Pt c/o abd pain, mainly on right side, no vomitting. - Current Medication List Current Medications: Active Medications Acetaminophen (Tylenol -) 500 mg PO Q6H PRN PRN Reason: PAIN LEVEL 1-5 Last Admin: 02/19/18 01:31 Dose: 500 mg Allopurinol (Zyloprim -) 100 mg PO DAILY [facility] Last Admin: 02/20/18 09:34 Dose: 100 mg Aspirin (Ecotrin -) 81 mg PO DAILY [facility] Last Admin: 02/20/18 09:34 Dose: 81 mg Atorvastatin Calcium (Lipitor -) 10 mg PO [facility] Last Admin: 02/19/18 21:29 Dose: 10 mg Carvedilol (Coreg -) 12.5 mg PO BID [facility] Last Admin: 02/20/18 09:34 Dose: 12.5 mg Gabapentin (Neurontin -) 300 mg PO BID [facility] Last Admin: 02/20/18 09:34 Dose: 300 mg Glipizide (Glucotrol -) 5 mg PO TIDAC [facility] Last Admin: 02/20/18 06:22 Dose: 5 mg Heparin Sodium (Porcine) (Heparin -) 5,000 unit SQ BID [facility] Last Admin: 02/20/18 09:34 Dose: 5,000 unit Hydralazine HCl (Apresoline -) 25 mg PO TID [facility] Last Admin: 02/20/18 06:22 Dose: 25 mg Insulin Aspart (Novolog Vial Sliding Scale -) 1 vial SQ [facility]; Protocol Last Admin: 02/20/18 06:22 Dose: Not Given Insulin Detemir (Levemir Vial) 15 units SQ [facility] Last Admin: 02/19/18 21:29 Dose: 15 units Isosorbide Mononitrate (Imdur -) 90 mg PO DAILY [facility] Last Admin: 02/20/18 09:34 Dose: 90 mg Levothyroxine Sodium (Synthroid -) 50 mcg PO DAILY@0700 [facility] Last Admin: 02/20/18 06:22 Dose: 50 mcg Polyethylene Glycol (Miralax (For Daily Use) -) 17 gm PO DAILY [facility] Last Admin: 02/20/18 09:35 Dose: 17 grams Ranitidine HCl (Zantac -) 150 mg PO BID [facility] Last Admin: 02/20/18 09:34 Dose: 150 mg Tamsulosin HCl (Flomax -) 0.4 mg PO DAILY@0830 [facility] Last Admin: 02/20/18 08:01 Dose: 0.4 mg Torsemide (Demadex -) 40 mg PO DAILY [facility] Last Admin: 02/20/18 09:34 Dose: 40 mg - Objective Vital Signs: Vital Signs Temperature 98.8 F 02/20/18 06:00 Pulse Rate 59 L 02/20/18 06:00 Respiratory Rate 20 02/20/18 06:00 Blood Pressure 111/50 02/20/18 06:00 O2 Sat by Pulse Oximetry (%) 94 L 02/19/18 21:00 Constitutional: Yes: No Distress, Calm Cardiovascular: Yes: Regular Rate and Rhythm, S1, S2 Respiratory: Yes: Regular, Other (crackle s at bases , R > L) Gastrointestinal: Yes: Normal Bowel Sounds, Soft, Tenderness (in RUQ and RLQ) Edema: No Neurological: Yes: Alert, Oriented Labs: CBC, BMP 02/20/18 06:30 02/20/18 06:30 Problem List - Problems (1) CHF exacerbation Code(s): I50.9 - HEART FAILURE, UNSPECIFIED Qualifiers: Heart failure type: unspecified Qualified Code(s): I50.9 - Heart failure, unspecified (2) Hyponatremia Code(s): E87.1 - HYPO-OSMOLALITY AND HYPONATREMIA (3) CRF (chronic renal failure) Code(s): N18.9 - CHRONIC KIDNEY DISEASE, UNSPECIFIED (4) Weakness Code(s): R53.1 - WEAKNESS (5) CAD (coronary artery disease) Code(s): I25.10 - ATHSCL HEART DISEASE OF [place] CORONARY ARTERY W/O ANG PCTRS Qualifiers: Coronary Disease-Associated Artery/Lesion type: [place] artery [place] vs. transplanted heart: [place] heart Associated angina: with unspecified angina Qualified Code(s): I25.119 - Atherosclerotic heart disease of [place] coronary artery with unspecified angina pectoris (6) Diabetes mellitus Code(s): E11.9 - TYPE 2 DIABETES MELLITUS WITHOUT COMPLICATIONS Qualifiers: Diabetes mellitus type: other specified (including JAVAD) Diabetes mellitus half-way insulin use: without watermelon inspector use Diabetes mellitus complication status: without complication Qualified Code(s): E13.9 - Other specified diabetes mellitus without complications (7) Abdominal pain Assessment/Plan: Unclear source. Pt is on Miralax. TO f/u with GI Code(s): R10.9 - UNSPECIFIED ABDOMINAL PAIN Assessment/Plan Starting to day pt was switched to PO Diuretic To monitor electrolytes, renal function. Creatinine is stable. Case was d/w pt's nurse. To f/u with GI consult AM labs. DVT prophylaxis. DC planning.
[2018-02-20 11:01] VITALS: BMI 29.5
--- NOTE | 2018-02-20 12:38 | CON.GI ---
Consult Consult Specialty:: GI Referred by:: Dr. Kell Sunshine Reason for Consultation:: Abdominal pain - History of Present Illness Chief Complaint: lower extremity edema and shortness of breath History of Present Illness: 82F admitted for evaluation of pedal edema, SOB. Being treated for acute on chronic CHF. Evaluated by cardiology. Asked to evaluate abdominal pain. Ms. Flores has a history of chronic constipation andabdominal pain that was felt to be secondary to autonomic dysfunction as a sequela of her diabetes. She was seen in office 02/08/18, was noted to have copious guaiac negative brown stool in the rectal vault. She had a CT scan performed revealing fecal retention. She had complained of right sided rig pain as well as rib X-Rays were unrevaling. Her last EGD / colonoscopy was [address] Tracy that revealed duodenitis and led to the removal of 2 serrated adenomas. The bowel prep was described as suboptimal. My recent office note was provided in the physical chart. - Past Medical History Cardio/Vascular: Yes: CAD (non-obstructive), CHF, HTN, Hyperlipdemia, Other ( Angina pectoris) Gastrointestinal: Yes: Constipation, Diverticulosis, GERD, Other (colon polyps: sessil serrated adenomas x 2 2014) Renal/: Yes: Renal Inusuff Musculoskeletal: Yes: Other (Spinal stenosis) Endocrine: Yes: Diabetes Mellitus (Insulin dependent), Hypothyroidism - Past Surgical History Past Surgical History: Yes: Hysterectomy (BRAX[place], BSO in 1981), Oopherectomy - Alcohol/Substance Use Hx Alcohol Use: No History of Substance Use: reports: None - Smoking History Smoking history: Never smoked Have you smoked in the past 12 months: No Aproximately how many cigarettes per day: 0 - Social History Usual Living Arrangement: With Spouse ADL: Independent Place of : Other ([place]) History of Recent Travel: Yes (WENT TO [facility] TWO YEARS AGO) Home Medications - Allergies Allergies/Adverse Reactions: Allergies Allergy/AdvReac Type Severity Reaction Status Date / Time No Known Allergies Allergy Verified 02/15/18 13:11 - Home Medications Home Medications: Ambulatory Orders Ranitidine HCl [Zantac] 150 mg PO BID #60 tablet 06/15/15 Aspirin Coated [Ecotrin -] 81 mg PO DAILY #30 tablet.ec 07/09/16 Carvedilol [Coreg -] 12.5 mg PO BID #180 tablet 07/09/16 Levothyroxine [Synthroid -] 50 mcg PO DAILY #90 tablet 07/09/16 Allopurinol [Zyloprim -] 100 mg PO DAILY 10/02/17 Atorvastatin Ca [Lipitor] 10 mg PO HS 10/02/17 Gabapentin [Neurontin -] 300 mg PO BID 10/02/17 Glipizide [Glucotrol -] 5 mg PO TID 10/02/17 Furosemide 80 mg PO DAILY 11/08/17 Acetaminophen [Tylenol .Extra-Strength -] 500 mg PO Q6H PRN tablet 11/12/17 Tamsulosin HCl [Flomax -] 0.4 mg PO DAILY@0830 #90 cap.er.24h 11/12/17 hydrALAZINE HCL [Apresoline -] 50 mg PO TID #90 tablet 11/12/17 Insulin Glargine,Hum.rec.anlog [Lantus Solostar] 18 unit SQ HS 02/15/18 Insulin Lispro [Humalog] 6 - 16 unit SQ DAILY 02/15/18 Isosorbide Mononitrate [Imdur -] 90 mg PO DAILY 02/15/18 Family Disease History - Family Disease History Family Disease History: Diabetes: Brother, Sister, Other: Father ( in his 50s ? etiology) Other Family History: No family history of colorectal cancer or other GI malignancy Review of Systems - Review of Systems Constitutional: denies: Fever, Unintentional Wgt. Loss Cardiovascular: reports: Shortness of Breath. denies: Chest Pain Gastrointestinal: reports: Abdominal Pain, Bloating, Constipation. denies: Diarrhea, Dysphagia, Indigestion, Melena, Nausea, Rectal Bleeding, Vomiting, Vomiting Blood Physical Exam-GI Vital Signs: Vital Signs Temperature 98.8 F 02/20/18 11:00 Pulse Rate 59 L 02/20/18 11:00 Respiratory Rate 20 02/20/18 11:00 Blood Pressure 111/50 02/20/18 11:00 O2 Sat by Pulse Oximetry (%) 98 02/20/18 09:00 Constitutional: Yes: Calm Eyes: No: Sclera Icterus Cardiovascular: Yes: Regular Rate and Rhythm, Murmur Respiratory: Yes: Rhonchi (at right upper lung field) Gastrointestinal Inspection: No: Distention ...Auscultate: Yes: Normoactive Bowel Sounds ...Palpate: No: Hepatomegaly, Splenomegaly, Tenderness ...Percussion: No: Tympanitic ...Rectal Exam: Yes: Other (Performed 02/08/18) Edema: No (No LE edema) Neurological: Yes: Alert Labs: CBC, BMP 02/20/18 06:30 02/20/18 06:30 Hepatic Panel Total Bilirubin 0.5 mg/dL (0.2-1.0) 02/17/18 07:38 AST 18 U/L (15-37) 02/17/18 07:38 ALT 17 U/L (12-78) 02/17/18 07:38 Alkaline Phosphatase 102 U/L (45-117) 02/17/18 07:38 Albumin 3.4 g/dl (3.4-5.0) 02/17/18 07:38 Imaging - Results Cat Scan: Report Reviewed, Image Reviewed Problem List - Problems (1) Abdominal pain Assessment/Plan: Suspect abdominal pain secondary to fecal retention. The fecal retention is multifactorial including medications and autonomic dysfunction from her DM. Advise: MiraLAX 17g every other day alternating with dulcolax 5mg two tablets every other day When acute issues are resolved, repeat colonoscopy can be discussed given suboptimal prep on previous colonoscopy along with history of colon polyps Code(s): R10.9 - UNSPECIFIED ABDOMINAL PAIN
--- NOTE | 2018-02-20 17:23 | PN ---
Progress Note (short form) - Note Progress Note: Renal follow up for CKD with volume overload Pt seen and examined at the bedside no sob, cp, abd pain, N/V/D had a BM today Vital Signs Temperature 98.3 F 02/20/18 15:26 Pulse Rate 64 02/20/18 15:26 Respiratory Rate 18 02/20/18 15:26 Blood Pressure 112/68 02/20/18 15:26 O2 Sat by Pulse Oximetry (%) 98 02/20/18 09:00 Intake & Output 02/17/18 02/18/18 02/19/18 02/20/18 23:59 23:59 23:59 23:59 Intake Total 1850 1225 940 850 Balance 1850 1225 940 850 Weight 80.796 kg 77.383 kg 77.882 kg 77.882 kg NAD awake and alert MMM RRR CTA soft NT/ND trace LE edema CBC, BMP 02/20/18 06:30 02/20/18 06:30 Current Medications Acetaminophen (Tylenol -) 500 mg PO Q6H PRN PRN Reason: PAIN LEVEL 1-5 Last Admin: 02/19/18 01:31 Dose: 500 mg Allopurinol (Zyloprim -) 100 mg PO DAILY [facility] Last Admin: 02/20/18 09:34 Dose: 100 mg Aspirin (Ecotrin -) 81 mg PO DAILY [facility] Last Admin: 02/20/18 09:34 Dose: 81 mg Atorvastatin Calcium (Lipitor -) 10 mg PO HS [facility] Last Admin: 02/19/18 21:29 Dose: 10 mg Carvedilol (Coreg -) 12.5 mg PO BID [facility] Last Admin: 02/20/18 09:34 Dose: 12.5 mg Gabapentin (Neurontin -) 300 mg PO BID [facility] Last Admin: 02/20/18 09:34 Dose: 300 mg Glipizide (Glucotrol -) 5 mg PO TIDAC [facility] Last Admin: 02/20/18 16:35 Dose: 5 mg Heparin Sodium (Porcine) (Heparin -) 5,000 unit SQ BID [facility] Last Admin: 02/20/18 09:34 Dose: 5,000 unit Hydralazine HCl (Apresoline -) 25 mg PO TID [facility] Last Admin: 02/20/18 13:42 Dose: 25 mg Insulin Aspart (Novolog Vial Sliding Scale -) 1 vial SQ ACHS [facility]; Protocol Last Admin: 02/20/18 16:37 Dose: 2 units Insulin Detemir (Levemir Vial) 15 units SQ HS [facility] Last Admin: 02/19/18 21:29 Dose: 15 units Isosorbide Mononitrate (Imdur -) 90 mg PO DAILY [facility] Last Admin: 02/20/18 09:34 Dose: 90 mg Levothyroxine Sodium (Synthroid -) 50 mcg PO DAILY@0700 [facility] Last Admin: 02/20/18 06:22 Dose: 50 mcg Polyethylene Glycol (Miralax (For Daily Use) -) 17 gm PO DAILY [facility] Last Admin: 02/20/18 09:35 Dose: 17 grams Ranitidine HCl (Zantac -) 150 mg PO BID [facility] Last Admin: 02/20/18 09:34 Dose: 150 mg Tamsulosin HCl (Flomax -) 0.4 mg PO DAILY@0830 [facility] Last Admin: 02/20/18 08:01 Dose: 0.4 mg Torsemide (Demadex -) 40 mg PO DAILY [facility] Last Admin: 02/20/18 09:34 Dose: 40 mg 82 year old woman with hx of CKD, CHF, DM type 2 who presented with complaints of abd pain, LE swelling and mild sob. #CHF exacerbation #CKD #Abd pain #Anemia Renal function stable now on oral diuretics Trend renal function and electrolytes GI following Cardiology following check iron studies Wm Tian DO
[2018-02-20] MEDS: ATORVASTATIN CA 10 MG TABLET (FP) PO SCH (21:27)
[2018-02-20] MEDS: INSULIN (LEVEMIR) 100 UNITS/ML UNITS SQ SCH (21:27)
[2018-02-21] MEDS: hydrALAZINE HCL 25 MG TABLET (FP) PO SCH ×2 (06:10→13:35)
[2018-02-21] MEDS: INSULIN SLIDING SCALE (NOVOLOG) 1 VIAL SQ SCH ×2 (06:10→11:12)
[2018-02-21] MEDS: glipiZIDE 5 MG TABLET (FP) PO SCH ×2 (06:10→11:11)
[2018-02-21] MEDS: LEVOTHYROXINE NA 50 MCG TABLET (FP) PO SCH (06:10)
[2018-02-21 07:41] LABS: CHLORIDE 99 mmol/L (98-107); POTASSIUM 4.4 mmol/L (3.5-5.1); SODIUM 138 mmol/L (136-145)
[2018-02-21 07:54] LABS: ALBUMIN 3.5 g/dl (3.4-5.0); ALK PHOS 111 U/L (45-117); ANION GAP 10 MMOL/L (8-16); BILIRUBIN,TOTAL 0.4 mg/dL (0.2-1.0); BLOOD UREA NITROGEN 53 mg/dL (7-18); CALCIUM 9.7 mg/dL (8.5-10.1); CO2 29 mmol/L (21-32); CREATININE 2.1 mg/dL (0.55-1.02); GLUCOSE,RANDOM 181 mg/dL (74-106); SGOT/AST 18 U/L (15-37); SGPT/ALT 19 U/L (12-78); TOT PROT 6.6 g/dl (6.4-8.2)
[2018-02-21] MEDS: TAMSULOSIN HCL 0.4 MG CAP.ER.24H (FP) PO SCH (08:45)
[2018-02-21] MEDS ORDERED: PT OWN MED DRAWER 7, Y5N ONE (09:49)
[2018-02-21] MEDS: ISOSORBIDE MONONITRATE 30 MG TAB.SR.24H (FP) PO SCH (10:03)
[2018-02-21] MEDS: GABAPENTIN 300 MG CAPSULE (FP) PO SCH (10:04)
[2018-02-21] MEDS: CARVEDILOL 12.5 MG TABLET (FP) PO SCH (10:04)
[2018-02-21] MEDS: ALLOPURINOL 100 MG TABLET (FP) PO SCH (10:04)
[2018-02-21] MEDS: ASPIRIN COATED 81 MG TABLET.EC PO SCH (10:04)
[2018-02-21] MEDS: HEPARIN NA (PORCINE) 5,000 UNITS/ML 1ML VIAL SQ SCH (10:04)
[2018-02-21] MEDS: TORSEMIDE 20 MG TABLET (FP) PO SCH (10:04)
[2018-02-21] MEDS: POLYETHYLENE GLYCOL 3350 119 GM BTL PO SCH (10:04)
[2018-02-21] MEDS ORDERED: INSULIN (NOVOLOG) ASPART 100 UNITS/ML 10ML VIAL ONE (11:07)
--- NOTE | 2018-02-21 11:21 | PN ---
Progress Note, Physician History of Present Illness: [place], weakness, LE edema, orthopnea and PND improving with diuresis. Abd pain referable to fecal retention. - Current Medication List Current Medications: Active Medications Acetaminophen (Tylenol -) 500 mg PO Q6H PRN PRN Reason: PAIN LEVEL 1-5 Last Admin: 02/19/18 01:31 Dose: 500 mg Allopurinol (Zyloprim -) 100 mg PO DAILY [facility] Last Admin: 02/21/18 10:04 Dose: 100 mg Aspirin (Ecotrin -) 81 mg PO DAILY [facility] Last Admin: 02/21/18 10:04 Dose: 81 mg Atorvastatin Calcium (Lipitor -) 10 mg PO [facility] Last Admin: 02/20/18 21:27 Dose: 10 mg Carvedilol (Coreg -) 12.5 mg PO BID [facility] Last Admin: 02/21/18 10:04 Dose: 12.5 mg Gabapentin (Neurontin -) 300 mg PO BID [facility] Last Admin: 02/21/18 10:04 Dose: 300 mg Glipizide (Glucotrol -) 5 mg PO TIDAC [facility] Last Admin: 02/21/18 11:11 Dose: 5 mg Heparin Sodium (Porcine) (Heparin -) 5,000 unit SQ BID [facility] Last Admin: 02/21/18 10:04 Dose: 5,000 unit Hydralazine HCl (Apresoline -) 25 mg PO TID [facility] Last Admin: 02/21/18 06:10 Dose: 25 mg Insulin Aspart (Novolog Vial Sliding Scale -) 1 vial SQ [facility]; Protocol Last Admin: 02/21/18 11:12 Dose: 4 units Insulin Detemir (Levemir Vial) 15 units SQ [facility] Last Admin: 02/20/18 21:27 Dose: 15 units Isosorbide Mononitrate (Imdur -) 90 mg PO DAILY [facility] Last Admin: 02/21/18 10:03 Dose: 90 mg Levothyroxine Sodium (Synthroid -) 50 mcg PO DAILY@0700 [facility] Last Admin: 02/21/18 06:10 Dose: 50 mcg Polyethylene Glycol (Miralax (For Daily Use) -) 17 gm PO DAILY [facility] Last Admin: 02/21/18 10:04 Dose: 17 grams Ranitidine HCl (Zantac -) 150 mg PO BID [facility] Last Admin: 02/20/18 21:27 Dose: 150 mg Tamsulosin HCl (Flomax -) 0.4 mg PO DAILY@0830 [facility] Last Admin: 02/21/18 08:45 Dose: 0.4 mg Torsemide (Demadex -) 40 mg PO DAILY [facility] Last Admin: 02/21/18 10:04 Dose: 40 mg - Objective Vital Signs: Vital Signs Temperature 98.4 F 02/21/18 06:00 Pulse Rate 57 L 02/21/18 06:00 Respiratory Rate 18 02/21/18 06:00 Blood Pressure 102/48 02/21/18 06:00 O2 Sat by Pulse Oximetry (%) 95 02/20/18 21:00 Constitutional: Yes: No Distress, Calm Neck: Yes: Supple Cardiovascular: Yes: Regular Rate and Rhythm Respiratory: Yes: Regular, Diminished Gastrointestinal: Yes: Normal Bowel Sounds, Soft Edema: No Labs: CBC, BMP 02/20/18 06:30 02/21/18 06:30 Problem List - Problems (1) CAD (coronary artery disease) Code(s): I25.10 - ATHSCL HEART DISEASE OF [place] CORONARY ARTERY W/O ANG PCTRS Qualifiers: Coronary Disease-Associated Artery/Lesion type: [place] artery [place] vs. transplanted heart: [place] heart Associated angina: with unspecified angina Qualified Code(s): I25.119 - Atherosclerotic heart disease of [place] coronary artery with unspecified angina pectoris (2) CKD (chronic kidney disease) stage 3, GFR 30-59 ml/min Code(s): N18.3 - CHRONIC KIDNEY DISEASE, STAGE 3 (MODERATE) (3) Diabetes mellitus with diabetic cardiomyopathy Code(s): E11.59 - TYPE 2 DIABETES MELLITUS WITH OTH CIRCULATORY COMPLICATIONS; I43 - CARDIOMYOPATHY IN DISEASES CLASSIFIED ELSEWHERE (4) Endothelial dysfunction of coronary artery Code(s): I99.8 - OTHER DISORDER OF CIRCULATORY SYSTEM (5) Hyperlipidemia Code(s): E78.5 - HYPERLIPIDEMIA, UNSPECIFIED Qualifiers: Hyperlipidemia type: pure hypercholesterolemia Qualified Code(s): E78.00 - Pure hypercholesterolemia, unspecified; E78.0 - Pure hypercholesterolemia (6) Hypertension Code(s): I10 - ESSENTIAL (PRIMARY) HYPERTENSION Qualifiers: Hypertension type: essential hypertension Qualified Code(s): I10 - Essential (primary) hypertension (7) Hypothyroidism Code(s): E03.9 - HYPOTHYROIDISM, UNSPECIFIED Qualifiers: Hypothyroidism type: unspecified Qualified Code(s): E03.9 - Hypothyroidism , unspecified (8) Acute on chronic diastolic congestive heart failure Code(s): I50.33 - ACUTE ON CHRONIC DIASTOLIC (CONGESTIVE) HEART FAILURE (9) Fecal impaction of colon Code(s): K56.41 - FECAL IMPACTION Assessment/Plan [facility] & coronary angiography performed 01/04/16 revealed non-obstructive CAD MPI study dated 11/12/2015 revealed No ischemia with normal LV function LVEF 79% Echocardiography dated 11/08/2017 revealed moderate LVH normal LV size and function, MR and TR 1. Acute on chronic diastolic failure improving 2. Non-obstructive CAD angina pectoris endothelial dysfunction 3. Aortic valve sclerosis/stenosis mild in severity 4. HTN 5. NIDDM 6. Hypercholesterolemia 7. Hypothyroidism 8. Acute on chronic CKD stabilized 9. Anemia 10. Fecal retention PLAN: 1. Continue Demadex 40 qd with monitor diuretic response, renal function and electrolytes 2. Continue Coreg 12.5 bid, ASA 81 qd, Lipitor 10 qhs, Imdur 90 qd, hydralazine 50 tid 3. Ideally should be on ACEI or ARBS pending renal function stabilization 4. DVT prophylaxis, bowel regimen
[2018-02-21 12:05] VITALS: BP 158/69; PULSE 63; TEMP 98.2
--- NOTE | 2018-02-21 12:34 | DS ---
Physical Examination Vital Signs: Vital Signs Temperature 98.2 F 02/21/18 09:00 Pulse Rate 63 02/21/18 09:00 Respiratory Rate 18 02/21/18 09:00 Blood Pressure 158/69 02/21/18 09:00 O2 Sat by Pulse Oximetry (%) 95 02/21/18 09:00 repeated SBP 112 Findings/Remarks: Pt w/o SOB, CP, palp, abd pain Constitutional: Yes: No Distress, Calm Cardiovascular: Yes: Regular Rate and Rhythm, S1, S2 Respiratory: Yes: Regular, CTA Bilaterally. No: Rales Gastrointestinal: Yes: Normal Bowel Sounds, Soft. No: Tenderness Edema: No Neurological: Yes: Alert, Oriented Labs: CBC, BMP 02/20/18 06:30 02/21/18 06:30 Discharge Summary Reason For Visit: ACUTE ON CHRONIC CONGESTIVE HEART FAILURE Current Active Problems Abdominal pain (Acute) CHF exacerbation (Acute) Hyponatremia (Acute) Procedures: Principal: CXR. [facility] Hospital Course: Pt came in c/o [place], leg edema, PND; pt was admitted to acute CHF exacerbation. Pt was started on IV Lasix with improvement in her symptoms,. Pt was seen in consult by Cardio ( Dr. Arroyo), Renal (Dr. Tian). Pt also c/o abd pain, was seen GI (Dr. Vinh Holliday) considered to be secondary to fecal retention; pt had BM with improvement in abd pain. Pt to be DC'ed home with office f/u. Condition: Fair - Instructions Diet, Activity, Other Instructions: Resume diet Referrals: Jam Sunshine MD [Primary Care Provider] - - Home Medications Comprehensive Discharge Medication List: Ambulatory Orders
[2018-02-21] MEDS: RANITIDINE HCL 150 MG TABLET (FP) PO SCH (12:45)
--- NOTE | 2018-02-21 13:29 | PN ---
Progress Note (short form) - Note Progress Note: Renal follow up for CKD with volume overload Pt seen and examined at the bedside no sob, cp, abd pain, N/V/D for discharge today did not sleep well denies orthopnea Vital Signs Temperature 98.2 F 02/21/18 09:00 Pulse Rate 63 02/21/18 09:00 Respiratory Rate 18 02/21/18 09:00 Blood Pressure 158/69 02/21/18 09:00 O2 Sat by Pulse Oximetry (%) 95 02/21/18 09:00 Intake & Output 02/18/18 02/19/18 02/20/18 02/21/18 23:59 23:59 23:59 23:59 Intake Total 4049 243 9371 250 Output Total 0 Balance 3670 644 3863 250 Weight 77.383 kg 77.882 kg 77.882 kg 77.224 kg NAD awake and alert MMM RRR CTA soft NT/ND trace LE edema CBC, BMP 02/20/18 06:30 02/21/18 06:30 Current Medications Acetaminophen (Tylenol -) 500 mg PO Q6H PRN PRN Reason: PAIN LEVEL 1-5 Last Admin: 02/19/18 01:31 Dose: 500 mg Allopurinol (Zyloprim -) 100 mg PO DAILY [facility] Last Admin: 02/21/18 10:04 Dose: 100 mg Aspirin (Ecotrin -) 81 mg PO DAILY [facility] Last Admin: 02/21/18 10:04 Dose: 81 mg Atorvastatin Calcium (Lipitor -) 10 mg PO HS [facility] Last Admin: 02/20/18 21:27 Dose: 10 mg Carvedilol (Coreg -) 12.5 mg PO BID [facility] Last Admin: 02/21/18 10:04 Dose: 12.5 mg Gabapentin (Neurontin -) 300 mg PO BID [facility] Last Admin: 02/21/18 10:04 Dose: 300 mg Glipizide (Glucotrol -) 5 mg PO TIDAC [facility] Last Admin: 02/21/18 11:11 Dose: 5 mg Heparin Sodium (Porcine) (Heparin -) 5,000 unit SQ BID [facility] Last Admin: 02/21/18 10:04 Dose: 5,000 unit Hydralazine HCl (Apresoline -) 25 mg PO TID [facility] Last Admin: 02/21/18 06:10 Dose: 25 mg Insulin Aspart (Novolog Vial Sliding Scale -) 1 vial SQ ACHS [facility]; Protocol Last Admin: 02/21/18 11:12 Dose: 4 units Insulin Detemir (Levemir Vial) 15 units SQ HS [facility] Last Admin: 02/20/18 21:27 Dose: 15 units Isosorbide Mononitrate (Imdur -) 90 mg PO DAILY [facility] Last Admin: 02/21/18 10:03 Dose: 90 mg Levothyroxine Sodium (Synthroid -) 50 mcg PO DAILY@0700 [facility] Last Admin: 02/21/18 06:10 Dose: 50 mcg Polyethylene Glycol (Miralax (For Daily Use) -) 17 gm PO DAILY [facility] Last Admin: 02/21/18 10:04 Dose: 17 grams Ranitidine HCl (Zantac -) 150 mg PO BID [facility] Last Admin: 02/21/18 12:45 Dose: 150 mg Tamsulosin HCl (Flomax -) 0.4 mg PO DAILY@0830 [facility] Last Admin: 02/21/18 08:45 Dose: 0.4 mg Torsemide (Demadex -) 40 mg PO DAILY [facility] Last Admin: 02/21/18 10:04 Dose: 40 mg 82 year old woman with hx of CKD, CHF, DM type 2 who presented with complaints of abd pain, LE swelling and mild sob. #CHF exacerbation #CKD #Abd pain #Anemia Renal function stable Continue oral torsemide to follow up with Dr. Patel as an outpatient Wm Tian DO
[2018-02-22 06:06] LABS: SERUM IRON SATURATION 16 % (15-55); TOTAL IRON BINDING CAPACITY 298 ug/dL (250-450); UIBC 251 ug/dL (118-369)
== END 2018-02-21 14:19 | disposition home or self-care (01) | DRG 291 ==
LOC: JER 13:01 → JERBED 17:46 → J6S 20:04 → OBSVTOIN 23:43
PROVIDERS: ADMIT Specialist; ATTEND Specialist
DX: I13.0 Hypertensive heart and chronic kidney disease with heart failure and stage 1 through stage 4 chronic kidney disease, or unspecified chronic kidney disease (principal); I50.33 Acute on chronic diastolic (congestive) heart failure; N17.9 Acute kidney failure, unspecified; E87.1 Hypo-osmolality and hyponatremia; E03.9 Hypothyroidism, unspecified; Z79.4 Long term (current) use of insulin; K21.9 Gastro-esophageal reflux disease without esophagitis; I35.8 Other nonrheumatic aortic valve disorders; E11.22 Type 2 diabetes mellitus with diabetic chronic kidney disease; N18.9 Chronic kidney disease, unspecified; M19.90 Unspecified osteoarthritis, unspecified site; N18.3 Chronic kidney disease, stage 3 (moderate); I42.8 Other cardiomyopathies; E11.59 Type 2 diabetes mellitus with other circulatory complications; I25.119 Atherosclerotic heart disease of native coronary artery with unspecified angina pectoris; D64.9 Anemia, unspecified; I99.8 Other disorder of circulatory system; K59.00 Constipation, unspecified; R10.9 Unspecified abdominal pain
CPT/HCPCS: 36415; 71045-TC-FY; 71101-TC-RT-FY; 74176-TC; 80048; 80053; 82550; 82728; 82962; 83540; 83550; 83735; 83880; 84100; 84484; 85025; 85027; 93005; 93010; 93971-TC; 97116-GP; 97162-GP; 99284-25; G0378; J1644

== ENCOUNTER 2018-06-12 11:34 | Inpatient (IN) | payer OTHER ==
--- NOTE | 2018-06-12 12:00 | PDOC ---
History of Present Illness - General Stated Complaint: Shortness of Breath Time Seen by Provider: 06/12/18 12:00 - History of Present Illness Initial Comments: 82yo F with PMH of CHF, HTN, HLD, CAD, CKD, DM, hypothyroid, chronic abdominal pain, and GERD presenting with shortness of breath and chest pain. Patient had been short of breath in the past week or so, but felt even more so today. She reports not even being able to walk across the room without feeling short- winded. Patient also reports swelling in her feet, abdomen, and face. She contends adherance with all her medications and denies excessive fluid intake.This morning, she felt chest pain for a minute or two while walking back from the bathroom. The episode went away on its own. She is unable to specify whether the chest pain radiated down her left arm because she has left arm pain at baseline. No nausea, vomiting, or diaphoresis. Patient reports abdominal pain which is close to her baseline. Last bowel movement was yesterday and was a normal formed brown stool without blood. Denies fevers or chills. Past History - Past Medical History Allergies/Adverse Reactions: Allergies Allergy/AdvReac Type Severity Reaction Status Date / Time No Known Allergies Allergy Verified 02/15/18 13:11 Home Medications: Ambulatory Orders Aspirin Coated [Ecotrin -] 81 mg PO DAILY #30 tablet.ec 07/09/16 Levothyroxine [Synthroid -] 50 mcg PO DAILY #90 tablet 07/09/16 Allopurinol [Zyloprim -] 100 mg PO DAILY 10/02/17 Atorvastatin Ca [Lipitor] 10 mg PO HS 10/02/17 Gabapentin [Neurontin -] 300 mg PO BID 10/02/17 Glipizide [Glucotrol -] 5 mg PO TID 10/02/17 Acetaminophen [Tylenol .Extra-Strength -] 500 mg PO Q6H PRN tablet 11/12/17 Tamsulosin HCl [Flomax -] 0.4 mg PO DAILY@0830 #90 cap.er.24h 11/12/17 Insulin Glargine,Hum.rec.anlog [Lantus Solostar] 18 unit SQ HS 02/15/18 Insulin Lispro [Humalog Kwikpen U-100] 6 - 16 unit SQ DAILY 02/15/18 Isosorbide Mononitrate [Imdur -] 90 mg PO DAILY 02/15/18 COPD: No CHF: Yes Diabetes: Yes GI Disorders: Yes (GERD.) HTN: Yes Hypercholesterolemia: Yes Thyroid Disease: Yes (HYPO.) - Surgical History Abdominal Surgery: Yes - Immunization History Immunization Up to Date: Yes - Suicide/Smoking/Psychosocial Hx Smoking Status: No Smoking History: Never smoked Have you smoked in the past 12 months: No Number of Cigarettes Smoked Daily: 0 Hx Alcohol Use: No Drug/Substance Use Hx: No Substance Use Type: None Hx Substance Use Treatment: No Review of Systems - Review of Systems Comments:: Constitutional: no fever, no chills HEENT: no throat pain, no dysphagia Cardiovascular: +chest pain, no palpitations Respiratory: no cough, +shortness of breath Gastrointestinal: +abdominal pain, no nausea, no vomiting Genitourinary: no dysuria, no frequency Musculoskeletal: no myalgia, no arthralgia Skin: no rash, no itching Neurologic: no headache, no dizziness *Physical Exam - Physical Exam Comments: General: Awake, alert, and fully oriented, in no acute distress Head: No signs of trauma Eyes: EOMI, sclera anicteric ENT: Dry mucus membranes Neck: Normal ROM, supple Lungs: Crackles present at bilateral lung bases Cardio: Regular rhythm, S1 and S2 present Abdomen: Tender to palpation diffusely. Soft, distended. No guarding, no rebound , no masses Extremities: Normal range of motion, Distal pulses present SKIN: Warm, Dry, normal turgor Neurologic: Cranial nerves II through XII grossly intact. Normal speech ED Treatment Course - LABORATORY CBC & Chemistry Diagram: 06/12/18 12:50 06/13/18 05:30 Medical Decision Making - Medical Decision Making 82yo F with PMH of CHF, HTN, HLD, CAD, CKD, DM, hypothyroid, chronic abdominal pain, and GERD presenting with shortness of breath and chest pain. -Cardiac workup -EKG: rate 72, QTc 479, flattened t waves in lateral distribution-- change from EKG on 02/15/18 -CXR: "prominent shekhar and some mild congestive changes" -40 lasix IV 06/12/18 14:30 Patient with periods of bradycardia in the low 50s/high 40s while sleeping, Normotensive/hypertensive RKM=226 (elevated from level in January), negative Tpn Hypokalemic, K=3.2. 40 KCl ordered WBC=8.5; Hgb 10.3, low but at patient's baseline; Cr=1.8 (lower than baseline), UA negative for infection Accepted for admission by Dr. Sunshine 06/12/18 18:50 *DC/Admit/Observation/Transfer Diagnosis at time of Disposition: CHF exacerbation Qualifiers: Heart failure type: diastolic Qualified Code(s): I50.33 - Acute on chronic diastolic (congestive) heart failure - Discharge Dispostion Condition at time of disposition: Guarded Decision to Admit order: Yes - Referrals - Patient Instructions - Post Discharge Activity
[2018-06-12 12:27] VITALS: BMI 31.1
[2018-06-12] MEDS ORDERED: FUROSEMIDE 40 MG/4 ML INJECTABLE VIAL IVPUSH ONE (12:32)
[2018-06-12] MEDS ORDERED: FUROSEMIDE 40 MG/4 ML INJECTABLE VIAL ONE (12:38)
[2018-06-12 12:56] LABS: BASO % 0.7 % (0-2.0); EOS % 5.5 % (0-4.5); HEMATOCRIT 29.5 % (32.4-45.2); HEMOGLOBIN 10.3 GM/dL (10.7-15.3); LYMPH % 15.9 % (8-40); MEAN CELL VOLUME 82.9 fl (80-96); MEAN PLT VOLUME 8.2 fl (7.5-11.1); NEUT % 66.9 % (42.8-82.8); PLATELET COUNT 225 K/MM3 (134-434); RBC 3.56 M/mm3 (3.60-5.2); RDW 16.9 % (11.6-15.6); WHITE BLOOD COUNT 8.5 K/mm3 (4.0-10.0)
[2018-06-12 13:11] LABS: URINE APPEARANCE CLEAR; URINE BILIRUBIN NEGATIVE (<2.0 mg/dL); URINE COLOR STRAW; URINE GLUCOSE (UA) NEGATIVE (NEGATIVE); URINE KETONE NEGATIVE (NEGATIVE); URINE LEUK ESTERASE NEGATIVE (NEGATIVE); URINE NITRITE NEGATIVE (NEGATIVE); URINE PROTEIN NEGATIVE (NEGATIVE); URINE UROBILINOGEN NEGATIVE mg/dL (0.2-1.0)
[2018-06-12 13:15] LABS: INR 1.09 (0.83-1.09); PROTHROMBIN TIME (PATIENT) 12.9 SEC (9.7-13.0)
[2018-06-12 13:22] LABS: ALBUMIN 3.4 g/dl (3.4-5.0); ALK PHOS 112 U/L (45-117); ANION GAP 8 MMOL/L (8-16); BILIRUBIN,TOTAL 0.6 mg/dL (0.2-1); BLOOD UREA NITROGEN 29 mg/dL (7-18); CALCIUM 7.8 mg/dL (8.5-10.1); CHLORIDE 102 mmol/L (98-107); CO2 30 mmol/L (21-32); CREATININE 1.8 mg/dL (0.55-1.3); GLUCOSE,RANDOM 68 mg/dL (74-106); LIPASE 187 U/L (73-393); N-TERMINAL BNP 382.2 pg/ml (5-450); POTASSIUM 3.2 mmol/L (3.5-5.1); SGOT/AST 20 U/L (15-37); SGPT/ALT 19 U/L (13-61); SODIUM 141 mmol/L (136-145); TOT PROT 6.9 g/dl (6.4-8.2)
[2018-06-12] MEDS ORDERED: POTASSIUM CHLORIDE TABS 10 MEQ TABLET.ER (FP) PO ONE (14:00)
--- NOTE | 2018-06-12 14:31 | PDOC ---
Attending Attestation - Resident Resident Name: Mattie Bhardwaj - ED Attending Attestation I have performed the following: I have examined & evaluated the patient, The case was reviewed & discussed with the resident, I agree w/resident's findings & plan, Exceptions are as noted - HPI HPI: 06/12/18 14:34 82 F with h/o CHF (followed by Dr. Kiser), DM type 2, and hypothyroidism presenting to ED with SOB. Endorses progressively worsening SOB and [place] for the past week, worse with lying flat. Pt endorses leg swelling. Denies CP. Denies F/ C. - Physicial Exam PE: 06/12/18 14:35 "GENERAL: Awake, alert, and fully oriented, in no acute distress. HEAD: No signs of trauma EYES: PERRLA, EOMI, sclera anicteric, conjunctiva clear ENT: Auricles normal inspection, hearing grossly normal, nares patent, oropharynx clear without exudates. Moist mucosa NECK: Nontender, no stepoffs, Normal ROM, supple, no lymphadenopathy, JVD, or masses LUNGS: + bibasilar rales HEART: Regular rate and rhythm, normal S1 and S2, no murmurs, rubs or gallops ABDOMEN: Soft, nontender, normoactive bowel sounds. No guarding, no rebound. No masses EXTREMITIES: + 2 PE BLE, No clubbing or cyanosis. No cords, erythema, or tenderness NEUROLOGICAL: Cranial nerves II through XII intact. 5/5 strength and sensation in all extremities, Normal speech, normal gait, normal cerebellar function SKIN: Warm, Dry, normal turgor, no rashes or lesions noted. - Medical Decision Making 06/12/18 14:35 82 F with SOB and pedal edema, consistent with CHF exacerbation. No CP to suggest ACS but will cycle trops. Pt with no DVT risk factors, no asymmetric leg swelling. - Labs, BNP, trop - CXR - Lasix 40mg IV
[2018-06-12] MEDS ORDERED: POTASSIUM CHLORIDE TABS 20 MEQ TABLET.ER (FP) PO ONE (14:39)
--- NOTE | 2018-06-12 17:35 | CON.CARD ---
Consult Consult Specialty:: Cardiology Referred by:: Jam Sunshine MD Reason for Consultation:: Diastolic CHF - History of Present Illness Chief Complaint: Dyspnea, orthopnea History of Present Illness: Patient is an 82 year old female with history of hypertension, hypercholesterolemia, type 2 diabetes mellitus, osteoarthritis, hypothyroidism, CKD and LV diastolic dysfunction last saw Dr. Kiser 05/02/2018 presented with [place] , orthopnea, LE edema, denies chest pain, reports compliance with diet and medications. - History Source History Provided By: Patient Limitations to Obtaining History: No Limitations - Past Medical History Cardio/Vascular: Yes: CAD (non-obstructive), CHF, HTN, Hyperlipdemia, Other ( Angina pectoris) Gastrointestinal: Yes: Constipation, Diverticulosis, GERD, Other (colon polyps: sessil serrated adenomas x 2 2014) Renal/: Yes: Renal Inusuff Musculoskeletal: Yes: Other (Spinal stenosis) Endocrine: Yes: Diabetes Mellitus (Insulin dependent), Hypothyroidism - Past Surgical History Past Surgical History: Yes: Hysterectomy (BRAXTON, BSO in 1981), Oopherectomy - Alcohol/Substance Use Hx Alcohol Use: No History of Substance Use: reports: None - Smoking History Smoking history: Never smoked Have you smoked in the past 12 months: No Aproximately how many cigarettes per day: 0 - Social History Usual Living Arrangement: With Spouse ADL: Independent History of Recent Travel: Yes (WENT TO [facility] TWO YEARS AGO) Home Medications - Allergies Allergies/Adverse Reactions: Allergies Allergy/AdvReac Type Severity Reaction Status Date / Time No Known Allergies Allergy Verified 02/15/18 13:11 - Home Medications Home Medications: Ambulatory Orders Aspirin Coated [Ecotrin -] 81 mg PO DAILY #30 tablet.ec 07/09/16 Levothyroxine [Synthroid -] 50 mcg PO DAILY #90 tablet 07/09/16 Allopurinol [Zyloprim -] 100 mg PO DAILY 10/02/17 Atorvastatin Ca [Lipitor] 10 mg PO HS 10/02/17 Gabapentin [Neurontin -] 300 mg PO BID 10/02/17 Glipizide [Glucotrol -] 5 mg PO TID 10/02/17 Acetaminophen [Tylenol .Extra-Strength -] 500 mg PO Q6H PRN tablet 11/12/17 Tamsulosin HCl [Flomax -] 0.4 mg PO DAILY@0830 #90 cap.er.24h 11/12/17 Insulin Glargine,Hum.rec.anlog [Lantus Solostar] 18 unit SQ HS 02/15/18 Insulin Lispro [Humalog Kwikpen U-100] 6 - 16 unit SQ DAILY 02/15/18 Isosorbide Mononitrate [Imdur -] 90 mg PO DAILY 02/15/18 Family Disease History - Family Disease History Family Disease History: Diabetes: Brother, Sister, Other: Father ( in his 50s ? etiology) Review of Systems - Review of Systems Respiratory: reports: Orthopnea, SOB, SOB on Exertion Vital Signs: Vital Signs Temperature 98 F 06/12/18 12:20 Pulse Rate 46 L 06/12/18 14:37 Respiratory Rate 20 06/12/18 14:37 Blood Pressure 119/60 06/12/18 14:37 O2 Sat by Pulse Oximetry (%) 98 06/12/18 14:37 Constitutional: Yes: No Distress, Calm Neck: Yes: Supple Respiratory: Yes: Regular, Diminished, On Nasal O2 Gastrointestinal: Yes: Normal Bowel Sounds, Soft Cardiovascular: Yes: Regular Rate and Rhythm JVD: No Carotid Bruit: No Heart Sounds: Yes: S1, S2 Murmur: Yes: Systolic Murmur, Grade 1 Edema: No - Other Data Labs, Other Data: CBC, BMP 06/12/18 12:50 06/12/18 12:50 INR, PTT INR 1.09 (0.83-1.09) 06/12/18 12:50 Troponin, BNP 06/12/18 06/12/18 12:50 12:50 Troponin I 0.02 B-Natriuretic Peptide 382.2 Cancelled Troponin, BNP 06/12/18 06/12/18 12:50 12:50 Troponin I 0.02 B-Natriuretic Peptide 382.2 Cancelled NSR Echo: Report Reviewed Prior Cardiac Procedures: Cardiac Catheterization Ejection Fraction %: LVEF > or = 40 % Imaging - Results Chest X-ray: Report Reviewed (Mild congestion) Problem List - Problems (1) CHF exacerbation Code(s): I50.9 - HEART FAILURE, UNSPECIFIED Qualifiers: Heart failure type: diastolic Qualified Code(s): I50.33 - Acute on chronic diastolic (congestive) heart failure (2) CRF (chronic renal failure) Code(s): N18.9 - CHRONIC KIDNEY DISEASE, UNSPECIFIED Qualifiers: Chronic kidney disease stage: stage 3 (moderate) Qualified Code(s): N18.3 - Chronic kidney disease, stage 3 (moderate) (3) CAD (coronary artery disease) Code(s): I25.10 - ATHSCL HEART DISEASE OF [place] CORONARY ARTERY W/O ANG PCTRS Qualifiers: Coronary Disease-Associated Artery/Lesion type: [place] artery [place] vs. transplanted heart: [place] heart Associated angina: with unspecified angina Qualified Code(s): I25.119 - Atherosclerotic heart disease of [place] coronary artery with unspecified angina pectoris (4) CKD (chronic kidney disease) stage 3, GFR 30-59 ml/min Code(s): N18.3 - CHRONIC KIDNEY DISEASE, STAGE 3 (MODERATE) (5) Diabetes mellitus with diabetic cardiomyopathy Code(s): E11.59 - TYPE 2 DIABETES MELLITUS WITH OTH CIRCULATORY COMPLICATIONS; I43 - CARDIOMYOPATHY IN DISEASES CLASSIFIED ELSEWHERE (6) Endothelial dysfunction of coronary artery Code(s): I99.8 - OTHER DISORDER OF CIRCULATORY SYSTEM (7) Hyperlipidemia Code(s): E78.5 - HYPERLIPIDEMIA, UNSPECIFIED Qualifiers: Hyperlipidemia type: pure hypercholesterolemia Qualified Code(s): E78.00 - Pure hypercholesterolemia, unspecified; E78.0 - Pure hypercholesterolemia (8) Hypertension Code(s): I10 - ESSENTIAL (PRIMARY) HYPERTENSION Qualifiers: Hypertension type: essential hypertension Qualified Code(s): I10 - Essential (primary) hypertension (9) Hypothyroidism Code(s): E03.9 - HYPOTHYROIDISM, UNSPECIFIED Qualifiers: Hypothyroidism type: unspecified Qualified Code(s): E03.9 - Hypothyroidism , unspecified Assessment/Plan [facility] & coronary angiography performed 01/04/16 revealed non-obstructive CAD MPI study dated 11/12/2015 revealed No ischemia with normal LV function LVEF 79% Echocardiography dated 11/08/2017 revealed moderate LVH normal LV size and function, MR and TR 1. Acute on chronic diastolic failure 2. Non-obstructive CAD angina pectoris endothelial dysfunction 3. Aortic valve sclerosis/stenosis mild in severity 4. HTN 5. NIDDM 6. Hypercholesterolemia 7. Hypothyroidism 8. Acute on chronic CKD stabilized 9. Anemia PLAN: 1. IV diuresis with monitor diuretic response, renal function and electrolytes, replete K 2. Continue ASA 81 qd, Lipitor 10 qhs, Imdur 90 qd, hydralazine 50 tid 3. Start CHRISTINE-I/ARB given renal function stabilization 4. Carvedilol 6.25 bid as HR tolerates 5. DVT prophylaxis, bowel regimen 6. Thank you for consultative opportunity
[2018-06-12] MEDS ORDERED: ACETAMINOPHEN 500 MG TABLET (FP) PO PRN (20:41)
[2018-06-12] MEDS: INSULIN SLIDING SCALE (NOVOLOG) 1 VIAL SQ SCH (22:16)
[2018-06-12] MEDS: INSULIN (LEVEMIR) 100 UNITS/ML UNITS SQ SCH (22:17)
[2018-06-12] MEDS: ATORVASTATIN CA 10 MG TABLET (FP) PO SCH (22:27)
[2018-06-12] MEDS: CARVEDILOL 6.25 MG TABLET (FP) PO SCH (22:27)
[2018-06-12] MEDS: GABAPENTIN 300 MG CAPSULE (FP) PO SCH (22:27)
[2018-06-13] MEDS: INSULIN SLIDING SCALE (NOVOLOG) 1 VIAL SQ SCH ×4 (06:10→22:02)
[2018-06-13] MEDS: LEVOTHYROXINE NA 50 MCG TABLET (FP) PO SCH (06:11)
[2018-06-13] MEDS: glipiZIDE 5 MG TABLET (FP) PO SCH ×3 (06:11→16:29)
[2018-06-13 06:42] LABS: ANION GAP 9 MMOL/L (8-16); BLOOD UREA NITROGEN 31 mg/dL (7-18); CALCIUM 7.6 mg/dL (8.5-10.1); CHLORIDE 100 mmol/L (98-107); CO2 31 mmol/L (21-32); GLUCOSE,RANDOM 161 mg/dL (74-106); POTASSIUM 4.1 mmol/L (3.5-5.1); SODIUM 140 mmol/L (136-145)
[2018-06-13] MEDS: LOSARTAN POTASSIUM 25 MG TABLET PO SCH (09:05)
[2018-06-13] MEDS: TAMSULOSIN HCL 0.4 MG CAP PO SCH (09:05)
[2018-06-13] MEDS: ASPIRIN 81 MG CHEWABLE TABLETS PO SCH (09:05)
[2018-06-13] MEDS: GABAPENTIN 300 MG CAPSULE (FP) PO SCH ×2 (09:05→21:59)
[2018-06-13] MEDS: ALLOPURINOL 100 MG TABLET (FP) PO SCH (09:05)
[2018-06-13] MEDS: FUROSEMIDE 40 MG/4 ML INJECTABLE VIAL IVPUSH SCH (09:06)
[2018-06-13] MEDS: CARVEDILOL 6.25 MG TABLET (FP) PO SCH ×2 (09:06→21:59)
--- NOTE | 2018-06-13 10:22 | PN ---
Progress Note, Physician History of Present Illness: [place], orthopnea, LE edema improving with diuresis, denies chest pain. - Current Medication List Current Medications: Active Medications Acetaminophen (Tylenol -) 500 mg PO Q6H PRN PRN Reason: PAIN LEVEL 1 - 3 Allopurinol (Zyloprim -) 100 mg PO DAILY [facility] Last Admin: 06/13/18 09:05 Dose: 100 mg Aspirin (Asa -) 81 mg PO DAILY [facility] Last Admin: 06/13/18 09:05 Dose: 81 mg Atorvastatin Calcium (Lipitor -) 10 mg PO [facility] Last Admin: 06/12/18 22:27 Dose: 10 mg Carvedilol (Coreg -) 6.25 mg PO BID [facility] Last Admin: 06/13/18 09:06 Dose: Not Given Furosemide (Lasix Injection -) 40 mg IVPUSH DAILY [facility] Last Admin: 06/13/18 09:06 Dose: 40 mg Gabapentin (Neurontin -) 300 mg PO BID [facility] Last Admin: 06/13/18 09:05 Dose: 300 mg Glipizide (Glucotrol -) 5 mg PO TIDAC [facility] Last Admin: 06/13/18 06:11 Dose: 5 mg Insulin Aspart (Novolog Vial Sliding Scale -) 1 vial SQ [facility]; Protocol Last Admin: 06/13/18 06:10 Dose: Not Given Insulin Detemir (Levemir Vial) 15 units SQ [facility] Last Admin: 06/12/18 22:17 Dose: Not Given Levothyroxine Sodium (Synthroid -) 50 mcg PO DAILY@0700 [facility] Last Admin: 06/13/18 06:11 Dose: 50 mcg Losartan Potassium (Cozaar -) 25 mg PO DAILY [facility] Last Admin: 06/13/18 09:05 Dose: 25 mg Tamsulosin HCl (Flomax -) 0.4 mg PO DAILY@0830 [facility] Last Admin: 06/13/18 09:05 Dose: 0.4 mg - Objective Vital Signs: Vital Signs Temperature 98.2 F 06/13/18 09:12 Pulse Rate 56 L 06/13/18 09:12 Respiratory Rate 18 06/13/18 09:12 Blood Pressure 145/64 06/13/18 09:12 O2 Sat by Pulse Oximetry (%) 95 06/12/18 19:25 Constitutional: Yes: No Distress, Calm Neck: Yes: Supple Cardiovascular: Yes: Bradycardia Respiratory: Yes: Regular, Diminished, On Nasal O2 Gastrointestinal: Yes: Normal Bowel Sounds, Soft, Abdomen, Obese Edema: Yes Edema: LLE: Trace, RLE: Trace Labs: CBC, BMP 06/12/18 12:50 06/13/18 05:30 INR, PTT INR 1.09 (0.83-1.09) 06/12/18 12:50 - ....Imaging EKG: Report Reviewed (Tele: SB 40-50s) Problem List - Problems (1) CHF exacerbation Code(s): I50.9 - HEART FAILURE, UNSPECIFIED Qualifiers: Heart failure type: diastolic Qualified Code(s): I50.33 - Acute on chronic diastolic (congestive) heart failure (2) CRF (chronic renal failure) Code(s): N18.9 - CHRONIC KIDNEY DISEASE, UNSPECIFIED Qualifiers: Chronic kidney disease stage: stage 3 (moderate) Qualified Code(s): N18.3 - Chronic kidney disease, stage 3 (moderate) (3) CAD (coronary artery disease) Code(s): I25.10 - ATHSCL HEART DISEASE OF [place] CORONARY ARTERY W/O ANG PCTRS Qualifiers: Coronary Disease-Associated Artery/Lesion type: [place] artery [place] vs. transplanted heart: [place] heart Associated angina: with unspecified angina Qualified Code(s): I25.119 - Atherosclerotic heart disease of [place] coronary artery with unspecified angina pectoris (4) CKD (chronic kidney disease) stage 3, GFR 30-59 ml/min Code(s): N18.3 - CHRONIC KIDNEY DISEASE, STAGE 3 (MODERATE) (5) Diabetes mellitus with diabetic cardiomyopathy Code(s): E11.59 - TYPE 2 DIABETES MELLITUS WITH OTH CIRCULATORY COMPLICATIONS; I43 - CARDIOMYOPATHY IN DISEASES CLASSIFIED ELSEWHERE (6) Endothelial dysfunction of coronary artery Code(s): I99.8 - OTHER DISORDER OF CIRCULATORY SYSTEM (7) Hyperlipidemia Code(s): E78.5 - HYPERLIPIDEMIA, UNSPECIFIED Qualifiers: Hyperlipidemia type: pure hypercholesterolemia Qualified Code(s): E78.00 - Pure hypercholesterolemia, unspecified; E78.0 - Pure hypercholesterolemia (8) Hypertension Code(s): I10 - ESSENTIAL (PRIMARY) HYPERTENSION Qualifiers: Hypertension type: essential hypertension Qualified Code(s): I10 - Essential (primary) hypertension (9) Hypothyroidism Code(s): E03.9 - HYPOTHYROIDISM, UNSPECIFIED Qualifiers: Hypothyroidism type: unspecified Qualified Code(s): E03.9 - Hypothyroidism , unspecified Assessment/Plan [facility] & coronary angiography performed 01/04/16 revealed non-obstructive CAD MPI study dated 11/12/2015 revealed No ischemia with normal LV function LVEF 79% Echocardiography dated 11/08/2017 revealed moderate LVH normal LV size and function, MR and TR 1. Acute on chronic diastolic failure 2. Non-obstructive CAD angina pectoris endothelial dysfunction 3. Aortic valve sclerosis/stenosis mild in severity 4. HTN 5. NIDDM 6. Hypercholesterolemia 7. Hypothyroidism 8. Acute on chronic CKD stabilized 9. Anemia PLAN: 1. IV diuresis with monitor diuretic response, renal function and electrolytes, repleted K 2. Continue ASA 81 qd, Lipitor 10 qhs, losartan 25 qd given renal function stabilization 3. Carvedilol 6.25 bid as HR tolerates 4. DVT prophylaxis, bowel regimen
--- NOTE | 2018-06-13 14:49 | HP ---
Admitting History and Physical - Primary Care Physician PCP: Jam Sunshine - Admission Chief Complaint: SOB History of Present Illness: Pt states that got progressively SOB over the last 3-4 weeks, and lately developed [place] and LE edema. Pt states that she is compliant with medications and eats "just a little" salt. History Source: Patient Limitations to Obtaining History: No Limitations - Past Medical History Cardiovascular: Yes: CAD (non-obstructive), CHF, HTN, Hyperlipdemia, Other ( Angina pectoris) Gastrointestinal: Yes: Constipation, Diverticulosis, GERD, Other (colon polyps: sessil serrated adenomas x 2 2014) Renal/: Yes: Renal Inusuff Musculoskeletal: Yes: Other (Spinal stenosis) Endocrine: Yes: Diabetes Mellitus (Insulin dependent), Hypothyroidism - Past Surgical History Past Surgical History: Yes: Hysterectomy (BRAXTON, BSO in 1981), Oopherectomy - Smoking History Smoking history: Never smoked Have you smoked in the past 12 months: No Aproximately how many cigarettes per day: 0 - Alcohol/Substance Use Hx Alcohol Use: No History of Substance Use: reports: None - Social History ADL: Independent History of Recent Travel: Yes (WENT TO [facility] TWO YEARS AGO) Home Medications - Allergies Allergies/Adverse Reactions: Allergies Allergy/AdvReac Type Severity Reaction Status Date / Time No Known Allergies Allergy Verified 02/15/18 13:11 - Home Medications Home Medications: Ambulatory Orders Aspirin Coated [Ecotrin -] 81 mg PO DAILY #30 tablet.ec 07/09/16 Levothyroxine [Synthroid -] 50 mcg PO DAILY #90 tablet 07/09/16 Allopurinol [Zyloprim -] 100 mg PO DAILY 10/02/17 Atorvastatin Ca [Lipitor] 10 mg PO HS 10/02/17 Gabapentin [Neurontin -] 300 mg PO BID 10/02/17 Glipizide [Glucotrol -] 5 mg PO TID 10/02/17 Acetaminophen [Tylenol .Extra-Strength -] 500 mg PO Q6H PRN tablet 11/12/17 Tamsulosin HCl [Flomax -] 0.4 mg PO DAILY@0830 #90 cap.er.24h 11/12/17 Insulin Glargine,Hum.rec.anlog [Lantus Solostar] 18 unit SQ HS 02/15/18 Insulin Lispro [Humalog Kwikpen U-100] 6 - 16 unit SQ DAILY 02/15/18 Isosorbide Mononitrate [Imdur -] 90 mg PO DAILY 02/15/18 Family Disease History - Family Disease History Family Disease History: Diabetes: Brother, Sister, Other: Father ( in his 50s ? etiology) Review of Systems - Review of Systems Constitutional: denies: Chills, Fever, Loss of Appetite Eyes: denies: Blurred Vision, Eye Pain, Photophobia HENT: denies: Difficult Swallowing, Ear Discharge, Ear Pain, Nasal Congestion, Throat Pain Neck: denies: Pain on Movement, Tenderness Cardiovascular: denies: Chest Pain, Palpitations Respiratory: denies: Cough, Wheezing Gastrointestinal: denies: Abdominal Pain, Diarrhea, Nausea, Vomiting Genitourinary: denies: Burning, Dysuria Musculoskeletal: denies: Back Pain, Extremity Pain Integumentary: denies: Blister, Bruising Neurological: denies: Change in LOC, Change in Speech, Numbness Endocrine: denies: Excessive Sweating, Intolerance to Cold Hematology/Lymphatic: denies: Easily Bruised, Excessive Bleeding Psychiatric: denies: Anxiety, Depression Physical Examination Vital Signs: Vital Signs Temperature 98.2 F 06/13/18 09:12 Pulse Rate 56 L 06/13/18 09:12 Respiratory Rate 18 06/13/18 09:12 Blood Pressure 145/64 06/13/18 09:12 O2 Sat by Pulse Oximetry (%) 95 06/13/18 09:00 Constitutional: Yes: No Distress, Calm Eyes: Yes: Conjunctiva Clear, EOM Intact HENT: Yes: Normocephalic. No: Pharyngeal Erythema, Rhinnorhea Neck: Yes: Trachea Midline. No: Lymphadenopathy Cardiovascular: Yes: Regular Rate and Rhythm, S1, S2 Respiratory: Yes: Regular, Other (coarse BS, bibasilar crackles) Gastrointestinal: Yes: Normal Bowel Sounds, Soft, Abdomen, Obese. No: Tenderness ...Rectal Exam: Yes: Deferred Renal/: No: CVA Tenderness - Left, CVA Tenderness - Right Breast(s): Yes: Other (deferred) Edema: LLE: Trace, RLE: Trace Integumentary: No: Erythema, Rash Neurological: Yes: Alert, Oriented, Other (motor and sensory examination is symmeteric in UE/ LE/ face) Psychiatric: Yes: Alert, Oriented Labs: CBC, BMP 06/12/18 12:50 06/13/18 05:30 Problem List - Problems (1) CHF exacerbation Code(s): I50.9 - HEART FAILURE, UNSPECIFIED Qualifiers: Heart failure type: diastolic Qualified Code(s): I50.33 - Acute on chronic diastolic (congestive) heart failure (2) Non-occlusive coronary artery disease Code(s): I25.10 - ATHSCL HEART DISEASE OF [place] CORONARY ARTERY W/O ANG PCTRS (3) CRF (chronic renal failure) Code(s): N18.9 - CHRONIC KIDNEY DISEASE, UNSPECIFIED Qualifiers: Chronic kidney disease stage: stage 3 (moderate) Qualified Code(s): N18.3 - Chronic kidney disease, stage 3 (moderate) (4) Hyperlipidemia Code(s): E78.5 - HYPERLIPIDEMIA, UNSPECIFIED Qualifiers: Hyperlipidemia type: pure hypercholesterolemia Qualified Code(s): E78.00 - Pure hypercholesterolemia, unspecified; E78.0 - Pure hypercholesterolemia (5) Hypertension Code(s): I10 - ESSENTIAL (PRIMARY) HYPERTENSION Qualifiers: Hypertension type: essential hypertension Qualified Code(s): I10 - Essential (primary) hypertension (6) Hypothyroidism Code(s): E03.9 - HYPOTHYROIDISM, UNSPECIFIED Qualifiers: Hypothyroidism type: unspecified Qualified Code(s): E03.9 - Hypothyroidism , unspecified (7) Diabetes mellitus Code(s): E11.9 - TYPE 2 DIABETES MELLITUS WITHOUT COMPLICATIONS Qualifiers: Diabetes mellitus type: other specified (including JAVAD) Diabetes mellitus skilled nursing insulin use: without skilled nursing use Diabetes mellitus complication status: without complication Qualified Code(s): E13.9 - Other specified diabetes mellitus without complications Assessment/Plan Lasix IV, to monitor renal function Admitted to telemetry Cardiology consult, is appreciated. AM labs Case was d/w pt's nurse
[2018-06-13] MEDS: ATORVASTATIN CA 10 MG TABLET (FP) PO SCH (21:59)
[2018-06-13] MEDS: INSULIN (LEVEMIR) 100 UNITS/ML UNITS SQ SCH (22:02)
[2018-06-14] MEDS: INSULIN SLIDING SCALE (NOVOLOG) 1 VIAL SQ SCH ×4 (06:43→21:50)
[2018-06-14] MEDS: glipiZIDE 5 MG TABLET (FP) PO SCH ×4 (06:43→17:23)
[2018-06-14] MEDS: LEVOTHYROXINE NA 50 MCG TABLET (FP) PO SCH (06:44)
[2018-06-14 07:24] LABS: ANION GAP 9 MMOL/L (8-16); BLOOD UREA NITROGEN 39 mg/dL (7-18); CALCIUM 8.2 mg/dL (8.5-10.1); CHLORIDE 100 mmol/L (98-107); CO2 32 mmol/L (21-32); CREATININE 2.1 mg/dL (0.55-1.3); GLUCOSE,RANDOM 86 mg/dL (74-106); POTASSIUM 3.9 mmol/L (3.5-5.1); SODIUM 141 mmol/L (136-145)
[2018-06-14] MEDS: CARVEDILOL 6.25 MG TABLET (FP) PO SCH ×2 (09:04→21:14)
[2018-06-14] MEDS: ASPIRIN 81 MG CHEWABLE TABLETS PO SCH (09:04)
[2018-06-14] MEDS: GABAPENTIN 300 MG CAPSULE (FP) PO SCH ×2 (09:05→21:14)
[2018-06-14] MEDS: FUROSEMIDE 40 MG/4 ML INJECTABLE VIAL IVPUSH SCH (09:05)
[2018-06-14] MEDS: TAMSULOSIN HCL 0.4 MG CAP PO SCH (09:05)
[2018-06-14] MEDS: LOSARTAN POTASSIUM 25 MG TABLET PO SCH (09:05)
[2018-06-14] MEDS: ALLOPURINOL 100 MG TABLET (FP) PO SCH (09:06)
--- NOTE | 2018-06-14 10:43 | PN ---
Progress Note, Physician History of Present Illness: [place], orthopnea, LE edema slowly improving with diuresis, denies chest pain. - Current Medication List Current Medications: Active Medications Acetaminophen (Tylenol -) 500 mg PO Q6H PRN PRN Reason: PAIN LEVEL 1 - 3 Allopurinol (Zyloprim -) 100 mg PO DAILY [facility] Last Admin: 06/14/18 09:06 Dose: 100 mg Aspirin (Asa -) 81 mg PO DAILY [facility] Last Admin: 06/14/18 09:04 Dose: 81 mg Atorvastatin Calcium (Lipitor -) 10 mg PO [facility] Last Admin: 06/13/18 21:59 Dose: 10 mg Carvedilol (Coreg -) 6.25 mg PO BID [facility] Last Admin: 06/14/18 09:04 Dose: 6.25 mg Furosemide (Lasix Injection -) 40 mg IVPUSH DAILY [facility] Last Admin: 06/14/18 09:05 Dose: 40 mg Gabapentin (Neurontin -) 300 mg PO BID [facility] Last Admin: 06/14/18 09:05 Dose: 300 mg Glipizide (Glucotrol -) 5 mg PO TIDAC [facility] Last Admin: 06/14/18 09:03 Dose: 5 mg Insulin Aspart (Novolog Vial Sliding Scale -) 1 vial SQ [facility]; Protocol Last Admin: 06/14/18 06:43 Dose: Not Given Insulin Detemir (Levemir Vial) 15 units SQ [facility] Last Admin: 06/13/18 22:02 Dose: 15 units Levothyroxine Sodium (Synthroid -) 50 mcg PO DAILY@0700 [facility] Last Admin: 06/14/18 06:44 Dose: 50 mcg Losartan Potassium (Cozaar -) 25 mg PO DAILY [facility] Last Admin: 06/14/18 09:05 Dose: 25 mg Tamsulosin HCl (Flomax -) 0.4 mg PO DAILY@0830 [facility] Last Admin: 06/14/18 09:05 Dose: 0.4 mg - Objective Vital Signs: Vital Signs Temperature 98.1 F 06/14/18 05:25 Pulse Rate 68 06/14/18 05:25 Respiratory Rate 20 06/14/18 05:25 Blood Pressure 144/70 06/14/18 05:25 O2 Sat by Pulse Oximetry (%) 94 L 06/13/18 21:00 Constitutional: Yes: No Distress, Calm Neck: Yes: Supple Cardiovascular: Yes: Regular Rate and Rhythm, Bradycardia Respiratory: Yes: Regular, Diminished Gastrointestinal: Yes: Normal Bowel Sounds, Soft Edema: No Labs: CBC, BMP 06/12/18 12:50 06/14/18 05:30 INR, PTT INR 1.09 (0.83-1.09) 06/12/18 12:50 - ....Imaging EKG: Report Reviewed (Tele: SB) Problem List - Problems (1) CHF exacerbation Code(s): I50.9 - HEART FAILURE, UNSPECIFIED Qualifiers: Heart failure type: diastolic Qualified Code(s): I50.33 - Acute on chronic diastolic (congestive) heart failure (2) CAD (coronary artery disease) Code(s): I25.10 - ATHSCL HEART DISEASE OF [place] CORONARY ARTERY W/O ANG PCTRS Qualifiers: Coronary Disease-Associated Artery/Lesion type: [place] artery [place] vs. transplanted heart: [place] heart Associated angina: with unspecified angina Qualified Code(s): I25.119 - Atherosclerotic heart disease of [place] coronary artery with unspecified angina pectoris (3) CKD (chronic kidney disease) stage 3, GFR 30-59 ml/min Code(s): N18.3 - CHRONIC KIDNEY DISEASE, STAGE 3 (MODERATE) (4) Diabetes mellitus with diabetic cardiomyopathy Code(s): E11.59 - TYPE 2 DIABETES MELLITUS WITH OTH CIRCULATORY COMPLICATIONS; I43 - CARDIOMYOPATHY IN DISEASES CLASSIFIED ELSEWHERE (5) Endothelial dysfunction of coronary artery Code(s): I99.8 - OTHER DISORDER OF CIRCULATORY SYSTEM (6) Hyperlipidemia Code(s): E78.5 - HYPERLIPIDEMIA, UNSPECIFIED Qualifiers: Hyperlipidemia type: pure hypercholesterolemia Qualified Code(s): E78.00 - Pure hypercholesterolemia, unspecified; E78.0 - Pure hypercholesterolemia (7) Hypertension Code(s): I10 - ESSENTIAL (PRIMARY) HYPERTENSION Qualifiers: Hypertension type: essential hypertension Qualified Code(s): I10 - Essential (primary) hypertension (8) Hypothyroidism Code(s): E03.9 - HYPOTHYROIDISM, UNSPECIFIED Qualifiers: Hypothyroidism type: unspecified Qualified Code(s): E03.9 - Hypothyroidism , unspecified Assessment/Plan [facility] & coronary angiography performed 01/04/16 revealed non-obstructive CAD MPI study dated 11/12/2015 revealed No ischemia with normal LV function LVEF 79% Echocardiography dated 11/08/2017 revealed moderate LVH normal LV size and function, MR and TR 1. Acute on chronic diastolic failure 2. Non-obstructive CAD angina pectoris endothelial dysfunction 3. Aortic valve sclerosis/stenosis mild in severity 4. HTN 5. NIDDM 6. Hypercholesterolemia 7. Hypothyroidism 8. Acute on chronic CKD 9. Anemia PLAN: 1. Change to oral diuresis with monitor diuretic response, renal function and electrolytes 2. Continue ASA 81 qd, Lipitor 10 qhs, losartan 25 qd may need to hold if renal function declines 3. Carvedilol 6.25 bid as HR tolerates 4. DVT prophylaxis, bowel regimen 5. D/c telemetry
--- NOTE | 2018-06-14 17:29 | PN ---
Progress Note, Physician History of Present Illness: Pt w/o CP, palpitations, abd pain. Pt's weight is trending down - Current Medication List Current Medications: Active Medications Acetaminophen (Tylenol -) 500 mg PO Q6H PRN PRN Reason: PAIN LEVEL 1 - 3 Allopurinol (Zyloprim -) 100 mg PO DAILY [facility] Last Admin: 06/14/18 09:06 Dose: 100 mg Aspirin (Asa -) 81 mg PO DAILY [facility] Last Admin: 06/14/18 09:04 Dose: 81 mg Atorvastatin Calcium (Lipitor -) 10 mg PO HS [facility] Last Admin: 06/13/18 21:59 Dose: 10 mg Carvedilol (Coreg -) 6.25 mg PO BID [facility] Last Admin: 06/14/18 09:04 Dose: 6.25 mg Furosemide (Lasix -) 40 mg PO DAILY [facility] Gabapentin (Neurontin -) 300 mg PO BID [facility] Last Admin: 06/14/18 09:05 Dose: 300 mg Glipizide (Glucotrol -) 5 mg PO TIDAC [facility] Last Admin: 06/14/18 17:23 Dose: 5 mg Insulin Aspart (Novolog Vial Sliding Scale -) 1 vial SQ [facility]; Protocol Last Admin: 06/14/18 17:20 Dose: Not Given Insulin Detemir (Levemir Vial) 15 units SQ [facility] Last Admin: 06/13/18 22:02 Dose: 15 units Levothyroxine Sodium (Synthroid -) 50 mcg PO DAILY@0700 [facility] Last Admin: 06/14/18 06:44 Dose: 50 mcg Losartan Potassium (Cozaar -) 25 mg PO DAILY [facility] Last Admin: 06/14/18 09:05 Dose: 25 mg Tamsulosin HCl (Flomax -) 0.4 mg PO DAILY@0830 [facility] Last Admin: 06/14/18 09:05 Dose: 0.4 mg - Objective Vital Signs: Vital Signs Temperature 97.8 F 06/14/18 14:03 Pulse Rate 64 06/14/18 14:03 Respiratory Rate 20 06/14/18 10:00 Blood Pressure 116/52 L 06/14/18 14:03 O2 Sat by Pulse Oximetry (%) 94 L 06/13/18 21:00 Constitutional: Yes: No Distress, Calm Cardiovascular: Yes: Regular Rate and Rhythm, S1, S2 Respiratory: Yes: Regular, CTA Bilaterally. No: Rales Gastrointestinal: Yes: Normal Bowel Sounds, Soft, Abdomen, Obese. No: Tenderness Edema: LLE: 1+, RLE: 1+ Neurological: Yes: Alert, Oriented Labs: CBC, BMP 06/12/18 12:50 06/14/18 05:30 INR, PTT INR 1.09 (0.83-1.09) 06/12/18 12:50 Problem List - Problems (1) CHF exacerbation Code(s): I50.9 - HEART FAILURE, UNSPECIFIED Qualifiers: Heart failure type: diastolic Qualified Code(s): I50.33 - Acute on chronic diastolic (congestive) heart failure (2) Non-occlusive coronary artery disease Code(s): I25.10 - ATHSCL HEART DISEASE OF [place] CORONARY ARTERY W/O ANG PCTRS (3) CRF (chronic renal failure) Code(s): N18.9 - CHRONIC KIDNEY DISEASE, UNSPECIFIED Qualifiers: Chronic kidney disease stage: stage 3 (moderate) Qualified Code(s): N18.3 - Chronic kidney disease, stage 3 (moderate) (4) Hyperlipidemia Code(s): E78.5 - HYPERLIPIDEMIA, UNSPECIFIED Qualifiers: Hyperlipidemia type: pure hypercholesterolemia Qualified Code(s): E78.00 - Pure hypercholesterolemia, unspecified; E78.0 - Pure hypercholesterolemia (5) Hypertension Code(s): I10 - ESSENTIAL (PRIMARY) HYPERTENSION Qualifiers: Hypertension type: essential hypertension Qualified Code(s): I10 - Essential (primary) hypertension (6) Hypothyroidism Code(s): E03.9 - HYPOTHYROIDISM, UNSPECIFIED Qualifiers: Hypothyroidism type: unspecified Qualified Code(s): E03.9 - Hypothyroidism , unspecified (7) Diabetes mellitus Code(s): E11.9 - TYPE 2 DIABETES MELLITUS WITHOUT COMPLICATIONS Qualifiers: Diabetes mellitus type: other specified (including JAVAD) Diabetes mellitus fci insulin use: without fci use Diabetes mellitus complication status: without complication Qualified Code(s): E13.9 - Other specified diabetes mellitus without complications Assessment/Plan Lasix was changed to PO; to monitor renal function Cardiology consult, is appreciated. AM labs PT Case was d/w pt's nurse
[2018-06-14] MEDS: INSULIN (LEVEMIR) 100 UNITS/ML UNITS SQ SCH (21:14)
[2018-06-14] MEDS: ATORVASTATIN CA 10 MG TABLET (FP) PO SCH (21:14)
[2018-06-15] MEDS: INSULIN SLIDING SCALE (NOVOLOG) 1 VIAL SQ SCH ×4 (06:28→21:44)
[2018-06-15] MEDS: glipiZIDE 5 MG TABLET (FP) PO SCH ×4 (06:41→16:53)
[2018-06-15] MEDS: LEVOTHYROXINE NA 50 MCG TABLET (FP) PO SCH (06:41)
[2018-06-15 06:54] LABS: HEMATOCRIT 31.2 % (32.4-45.2); MCH 27.3 pg (25.7-33.7); MCHC 32.1 g/dl (32.0-36.0); MEAN CELL VOLUME 85.2 fl (80-96); MEAN PLT VOLUME 7.9 fl (7.5-11.1); PLATELET COUNT 195 K/MM3 (134-434); RBC 3.66 M/mm3 (3.60-5.2); RDW 16.4 % (11.6-15.6); WHITE BLOOD COUNT 9.7 K/mm3 (4.0-10.0)
[2018-06-15 08:05] LABS: ANION GAP 8 MMOL/L (8-16); BLOOD UREA NITROGEN 47 mg/dL (7-18); CALCIUM 8.2 mg/dL (8.5-10.1); CHLORIDE 98 mmol/L (98-107); CO2 34 mmol/L (21-32); CREATININE 1.9 mg/dL (0.55-1.3); GLUCOSE,RANDOM 119 mg/dL (74-106); POTASSIUM 4.1 mmol/L (3.5-5.1); SODIUM 139 mmol/L (136-145)
[2018-06-15] MEDS: ASPIRIN 81 MG CHEWABLE TABLETS PO SCH (09:01)
[2018-06-15] MEDS: CARVEDILOL 6.25 MG TABLET (FP) PO SCH ×2 (09:01→21:43)
[2018-06-15] MEDS: TAMSULOSIN HCL 0.4 MG CAP PO SCH (09:01)
[2018-06-15] MEDS: ALLOPURINOL 100 MG TABLET (FP) PO SCH (09:02)
[2018-06-15] MEDS: GABAPENTIN 300 MG CAPSULE (FP) PO SCH ×2 (09:02→21:44)
[2018-06-15] MEDS: LOSARTAN POTASSIUM 25 MG TABLET PO SCH (09:02)
--- NOTE | 2018-06-15 09:34 | PN ---
Progress Note, Physician History of Present Illness: [place], orthopnea, LE edema slowly improving with diuresis, denies chest pain. - Current Medication List Current Medications: Active Medications Acetaminophen (Tylenol -) 500 mg PO Q6H PRN PRN Reason: PAIN LEVEL 1 - 3 Allopurinol (Zyloprim -) 100 mg PO DAILY [facility] Last Admin: 06/15/18 09:02 Dose: 100 mg Aspirin (Asa -) 81 mg PO DAILY [facility] Last Admin: 06/15/18 09:01 Dose: 81 mg Atorvastatin Calcium (Lipitor -) 10 mg PO HS [facility] Last Admin: 06/14/18 21:14 Dose: 10 mg Carvedilol (Coreg -) 6.25 mg PO BID [facility] Last Admin: 06/15/18 09:01 Dose: 6.25 mg Furosemide (Lasix -) 40 mg PO DAILY [facility] Last Admin: 06/15/18 09:02 Dose: 40 mg Gabapentin (Neurontin -) 300 mg PO BID [facility] Last Admin: 06/15/18 09:02 Dose: 300 mg Glipizide (Glucotrol -) 5 mg PO TIDAC [facility] Last Admin: 06/15/18 06:41 Dose: 5 mg Insulin Aspart (Novolog Vial Sliding Scale -) 1 vial SQ [facility]; Protocol Last Admin: 06/15/18 06:28 Dose: Not Given Insulin Detemir (Levemir Vial) 15 units SQ [facility] Last Admin: 06/14/18 21:14 Dose: 15 units Levothyroxine Sodium (Synthroid -) 50 mcg PO DAILY@0700 [facility] Last Admin: 06/15/18 06:41 Dose: 50 mcg Losartan Potassium (Cozaar -) 25 mg PO DAILY [facility] Last Admin: 06/15/18 09:02 Dose: 25 mg Tamsulosin HCl (Flomax -) 0.4 mg PO DAILY@0830 [facility] Last Admin: 06/15/18 09:01 Dose: 0.4 mg - Objective Vital Signs: Vital Signs Temperature 97.5 F L 06/15/18 06:00 Pulse Rate 68 06/15/18 06:00 Respiratory Rate 20 06/15/18 06:00 Blood Pressure 116/55 L 06/15/18 06:00 O2 Sat by Pulse Oximetry (%) 99 06/14/18 21:00 Constitutional: Yes: No Distress, Calm Neck: Yes: Supple Cardiovascular: Yes: Regular Rate and Rhythm Respiratory: Yes: Regular, Diminished, On Nasal O2 Gastrointestinal: Yes: Normal Bowel Sounds, Soft, Abdomen, Obese Edema: No Labs: CBC, BMP 06/15/18 05:30 06/15/18 05:30 INR, PTT INR 1.09 (0.83-1.09) 06/12/18 12:50 - ....Imaging EKG: Report Reviewed (Tele: SB) Problem List - Problems (1) CHF exacerbation Code(s): I50.9 - HEART FAILURE, UNSPECIFIED Qualifiers: Heart failure type: diastolic Qualified Code(s): I50.33 - Acute on chronic diastolic (congestive) heart failure (2) CAD (coronary artery disease) Code(s): I25.10 - ATHSCL HEART DISEASE OF [place] CORONARY ARTERY W/O ANG PCTRS Qualifiers: Coronary Disease-Associated Artery/Lesion type: [place] artery [place] vs. transplanted heart: [place] heart Associated angina: with unspecified angina Qualified Code(s): I25.119 - Atherosclerotic heart disease of [place] coronary artery with unspecified angina pectoris (3) CKD (chronic kidney disease) stage 3, GFR 30-59 ml/min Code(s): N18.3 - CHRONIC KIDNEY DISEASE, STAGE 3 (MODERATE) (4) Diabetes mellitus with diabetic cardiomyopathy Code(s): E11.59 - TYPE 2 DIABETES MELLITUS WITH OTH CIRCULATORY COMPLICATIONS; I43 - CARDIOMYOPATHY IN DISEASES CLASSIFIED ELSEWHERE (5) Endothelial dysfunction of coronary artery Code(s): I99.8 - OTHER DISORDER OF CIRCULATORY SYSTEM (6) Hyperlipidemia Code(s): E78.5 - HYPERLIPIDEMIA, UNSPECIFIED Qualifiers: Hyperlipidemia type: pure hypercholesterolemia Qualified Code(s): E78.00 - Pure hypercholesterolemia, unspecified; E78.0 - Pure hypercholesterolemia (7) Hypertension Code(s): I10 - ESSENTIAL (PRIMARY) HYPERTENSION Qualifiers: Hypertension type: essential hypertension Qualified Code(s): I10 - Essential (primary) hypertension (8) Hypothyroidism Code(s): E03.9 - HYPOTHYROIDISM, UNSPECIFIED Qualifiers: Hypothyroidism type: unspecified Qualified Code(s): E03.9 - Hypothyroidism , unspecified Assessment/Plan [facility] & coronary angiography performed 01/04/16 revealed non-obstructive CAD MPI study dated 11/12/2015 revealed No ischemia with normal LV function LVEF 79% Echocardiography dated 11/08/2017 revealed moderate LVH normal LV size and function, MR and TR 1. Acute on chronic diastolic failure 2. Non-obstructive CAD angina pectoris endothelial dysfunction 3. Aortic valve sclerosis/stenosis mild in severity 4. HTN 5. NIDDM 6. Hypercholesterolemia 7. Hypothyroidism 8. Acute on chronic CKD stabilized 9. Anemia PLAN: 1. Change to oral diuresis with monitor diuretic response, renal function and electrolytes 2. Continue ASA 81 qd, Lipitor 10 qhs, losartan 25 qd may need to hold if renal function declines 3. Carvedilol 6.25 bid as HR tolerates 4. DVT prophylaxis, bowel regimen 5. D/c telemetry
[2018-06-15] MEDS ORDERED: FUROSEMIDE 40 MG TABLET (FP) PO SCH (10:00)
--- NOTE | 2018-06-15 10:09 | PN ---
Progress Note, Physician History of Present Illness: Pt w/o SOB, CP, palpitations, abd pain. Pt still with [place]. - Current Medication List Current Medications: Active Medications Acetaminophen (Tylenol -) 500 mg PO Q6H PRN PRN Reason: PAIN LEVEL 1 - 3 Allopurinol (Zyloprim -) 100 mg PO DAILY [facility] Last Admin: 06/15/18 09:02 Dose: 100 mg Aspirin (Asa -) 81 mg PO DAILY [facility] Last Admin: 06/15/18 09:01 Dose: 81 mg Atorvastatin Calcium (Lipitor -) 10 mg PO HS [facility] Last Admin: 06/14/18 21:14 Dose: 10 mg Carvedilol (Coreg -) 6.25 mg PO BID [facility] Last Admin: 06/15/18 09:01 Dose: 6.25 mg Furosemide (Lasix -) 40 mg PO DAILY [facility] Last Admin: 06/15/18 09:02 Dose: 40 mg Gabapentin (Neurontin -) 300 mg PO BID [facility] Last Admin: 06/15/18 09:02 Dose: 300 mg Glipizide (Glucotrol -) 5 mg PO TIDAC [facility] Last Admin: 06/15/18 06:41 Dose: 5 mg Insulin Aspart (Novolog Vial Sliding Scale -) 1 vial SQ [facility]; Protocol Last Admin: 06/15/18 06:28 Dose: Not Given Insulin Detemir (Levemir Vial) 15 units SQ [facility] Last Admin: 06/14/18 21:14 Dose: 15 units Levothyroxine Sodium (Synthroid -) 50 mcg PO DAILY@0700 [facility] Last Admin: 06/15/18 06:41 Dose: 50 mcg Losartan Potassium (Cozaar -) 25 mg PO DAILY [facility] Last Admin: 06/15/18 09:02 Dose: 25 mg Tamsulosin HCl (Flomax -) 0.4 mg PO DAILY@0830 [facility] Last Admin: 06/15/18 09:01 Dose: 0.4 mg - Objective Vital Signs: Vital Signs Temperature 98 F 06/15/18 09:00 Pulse Rate 74 06/15/18 09:00 Respiratory Rate 18 06/15/18 09:00 Blood Pressure 120/70 06/15/18 09:00 O2 Sat by Pulse Oximetry (%) 97 06/15/18 09:00 Constitutional: Yes: No Distress, Calm Cardiovascular: Yes: Regular Rate and Rhythm, S1, S2 Respiratory: Yes: Regular, Diminished. No: Rales Gastrointestinal: Yes: Normal Bowel Sounds, Soft, Abdomen, Obese. No: Tenderness Edema: Yes Edema: LLE: Trace, RLE: Trace Neurological: Yes: Alert, Oriented Labs: CBC, BMP 06/15/18 05:30 06/15/18 05:30 INR, PTT INR 1.09 (0.83-1.09) 06/12/18 12:50 Problem List - Problems (1) CHF exacerbation Code(s): I50.9 - HEART FAILURE, UNSPECIFIED Qualifiers: Heart failure type: diastolic Qualified Code(s): I50.33 - Acute on chronic diastolic (congestive) heart failure (2) Non-occlusive coronary artery disease Code(s): I25.10 - ATHSCL HEART DISEASE OF [place] CORONARY ARTERY W/O ANG PCTRS (3) CRF (chronic renal failure) Code(s): N18.9 - CHRONIC KIDNEY DISEASE, UNSPECIFIED Qualifiers: Chronic kidney disease stage: stage 3 (moderate) Qualified Code(s): N18.3 - Chronic kidney disease, stage 3 (moderate) (4) Hyperlipidemia Code(s): E78.5 - HYPERLIPIDEMIA, UNSPECIFIED Qualifiers: Hyperlipidemia type: pure hypercholesterolemia Qualified Code(s): E78.00 - Pure hypercholesterolemia, unspecified; E78.0 - Pure hypercholesterolemia (5) Hypertension Code(s): I10 - ESSENTIAL (PRIMARY) HYPERTENSION Qualifiers: Hypertension type: essential hypertension Qualified Code(s): I10 - Essential (primary) hypertension (6) Hypothyroidism Code(s): E03.9 - HYPOTHYROIDISM, UNSPECIFIED Qualifiers: Hypothyroidism type: unspecified Qualified Code(s): E03.9 - Hypothyroidism , unspecified (7) Diabetes mellitus Code(s): E11.9 - TYPE 2 DIABETES MELLITUS WITHOUT COMPLICATIONS Qualifiers: Diabetes mellitus type: other specified (including JAVAD) Diabetes mellitus buttermaker helper insulin use: without mcc use Diabetes mellitus complication status: without complication Qualified Code(s): E13.9 - Other specified diabetes mellitus without complications Assessment/Plan Lasix was changed to PO; to monitor renal function, weight Cardiology consult and f/u are appreciated. AM labs PT Case was d/w pt's nurse
[2018-06-15] MEDS ORDERED: ACETAMINOPHEN 500 MG TABLET (FP) PO PRN (11:09)
[2018-06-15] MEDS ORDERED: glipiZIDE 5 MG TABLET (FP) PO SCH (16:30)
[2018-06-15] MEDS ORDERED: INSULIN (NOVOLOG) ASPART 100 UNITS/ML 10ML VIAL ONE (21:42)
[2018-06-15] MEDS: INSULIN (LEVEMIR) 100 UNITS/ML UNITS SQ SCH (21:43)
[2018-06-15] MEDS: ATORVASTATIN CA 10 MG TABLET (FP) PO SCH (21:44)
[2018-06-16] MEDS: INSULIN SLIDING SCALE (NOVOLOG) 1 VIAL SQ SCH ×4 (06:10→21:45)
[2018-06-16] MEDS: LEVOTHYROXINE NA 50 MCG TABLET (FP) PO SCH (06:13)
[2018-06-16] MEDS: glipiZIDE 5 MG TABLET (FP) PO SCH ×3 (06:13→16:45)
[2018-06-16 09:05] LABS: ANION GAP 5 MMOL/L (8-16); BLOOD UREA NITROGEN 50 mg/dL (7-18); CALCIUM 8.4 mg/dL (8.5-10.1); CHLORIDE 100 mmol/L (98-107); CO2 34 mmol/L (21-32); CREATININE 1.8 mg/dL (0.55-1.3); GLUCOSE,RANDOM 84 mg/dL (74-106); SODIUM 139 mmol/L (136-145)
[2018-06-16] MEDS: TAMSULOSIN HCL 0.4 MG CAP PO SCH (09:20)
[2018-06-16] MEDS: LOSARTAN POTASSIUM 25 MG TABLET PO SCH (10:37)
[2018-06-16] MEDS: ASPIRIN 81 MG CHEWABLE TABLETS PO SCH (10:37)
[2018-06-16] MEDS: CARVEDILOL 6.25 MG TABLET (FP) PO SCH ×2 (10:37→21:45)
[2018-06-16] MEDS: ALLOPURINOL 100 MG TABLET (FP) PO SCH (10:37)
[2018-06-16] MEDS: GABAPENTIN 300 MG CAPSULE (FP) PO SCH ×2 (10:37→21:45)
[2018-06-16] MEDS: FUROSEMIDE 40 MG TABLET (FP) PO SCH (10:37)
--- NOTE | 2018-06-16 12:57 | PN ---
Progress Note, Physician Chief Complaint: in bed NAD daughter at bedside less SOB but feels very tired, did not want to get OOB d/w pt and daughter about home PT rehab vs SNF, pt does not want neither - Current Medication List Current Medications: Active Medications Acetaminophen (Tylenol -) 500 mg PO Q6H PRN PRN Reason: PAIN LEVEL 1 - 3 Allopurinol (Zyloprim -) 100 mg PO DAILY [facility] Last Admin: 06/16/18 10:37 Dose: 100 mg Aspirin (Asa -) 81 mg PO DAILY [facility] Last Admin: 06/16/18 10:37 Dose: 81 mg Atorvastatin Calcium (Lipitor -) 10 mg PO HS [facility] Last Admin: 06/15/18 21:44 Dose: 10 mg Carvedilol (Coreg -) 6.25 mg PO BID [facility] Last Admin: 06/16/18 10:37 Dose: 6.25 mg Furosemide (Lasix -) 40 mg PO DAILY [facility] Last Admin: 06/16/18 10:37 Dose: 40 mg Gabapentin (Neurontin -) 300 mg PO BID [facility] Last Admin: 06/16/18 10:37 Dose: 300 mg Glipizide (Glucotrol -) 5 mg PO TIDAC [facility] Last Admin: 06/16/18 12:15 Dose: 5 mg Insulin Aspart (Novolog Vial Sliding Scale -) 1 vial SQ [facility]; Protocol Last Admin: 06/16/18 11:05 Dose: 2 units Insulin Detemir (Levemir Vial) 15 units SQ [facility] Last Admin: 06/15/18 21:43 Dose: 15 units Levothyroxine Sodium (Synthroid -) 50 mcg PO DAILY@0700 [facility] Last Admin: 06/16/18 06:13 Dose: 50 mcg Losartan Potassium (Cozaar -) 25 mg PO DAILY [facility] Last Admin: 06/16/18 10:37 Dose: 25 mg Tamsulosin HCl (Flomax -) 0.4 mg PO DAILY@0830 [facility] Last Admin: 06/16/18 09:20 Dose: 0.4 mg - Objective Vital Signs: Vital Signs Temperature 97.3 F L 06/16/18 04:08 Pulse Rate 65 06/16/18 04:08 Respiratory Rate 20 06/16/18 04:08 Blood Pressure 135/53 L 06/16/18 04:08 O2 Sat by Pulse Oximetry (%) 97 06/15/18 21:00 Constitutional: Yes: No Distress, Calm Eyes: Yes: Conjunctiva Clear HENT: Yes: Atraumatic Neck: Yes: Supple Cardiovascular: Yes: Regular Rate and Rhythm Respiratory: Yes: CTA Bilaterally Gastrointestinal: Yes: Soft. No: Distention Genitourinary: No: CVA Tenderness - Left, CVA Tenderness - Right Musculoskeletal: No: Joint Stiffness, Joint Swelling Extremities: No: Cold, Cool, Cyanosis Edema: No Integumentary: No: Rash, Venous Stasis Changes Neurological: Yes: WNL, Alert, Oriented ...Motor Strength: WNL Psychiatric: Yes: WNL, Alert, Oriented. No: Agitated, Suicidal Ideation Labs: CBC, BMP 06/15/18 05:30 06/16/18 07:15 INR, PTT INR 1.09 (0.83-1.09) 06/12/18 12:50 - ....Imaging Other: Report Reviewed Assessment/Plan A/P: [facility] & coronary angiography performed 01/04/16 revealed non-obstructive CAD MPI study dated 11/12/2015 revealed No ischemia with normal LV function LVEF 79% Echocardiography dated 11/08/2017 revealed moderate LVH normal LV size and function, MR and TR Acute on chronic diastolic failure; Non-obstructive CAD angina pectoris endothelial dysfunction; Aortic valve sclerosis/stenosis mild in severity; HTN; NIDDM; Hypercholesterolemia; Hypothyroidism; Acute on chronic CKD; Anemia Change to oral diuresis with monitor diuretic response, renal function and electrolytes Continue ASA 81 qd, Lipitor 10 qhs, losartan 25 qd may need to hold if renal function declines; Carvedilol 6.25 bid as HR tolerates DVT prophylaxis, falls PFX d/w pt and daughter
--- NOTE | 2018-06-16 16:01 | PN ---
Progress Note, Physician Chief Complaint: Not in distress History of Present Illness: Patient was seen and examined. Awake and alert. Chart was reviewed Denies chest pain or SOB - Current Medication List Current Medications: Active Medications Acetaminophen (Tylenol -) 500 mg PO Q6H PRN PRN Reason: PAIN LEVEL 1 - 3 Allopurinol (Zyloprim -) 100 mg PO DAILY [facility] Last Admin: 06/16/18 10:37 Dose: 100 mg Aspirin (Asa -) 81 mg PO DAILY [facility] Last Admin: 06/16/18 10:37 Dose: 81 mg Atorvastatin Calcium (Lipitor -) 10 mg PO HS [facility] Last Admin: 06/15/18 21:44 Dose: 10 mg Carvedilol (Coreg -) 6.25 mg PO BID [facility] Last Admin: 06/16/18 10:37 Dose: 6.25 mg Furosemide (Lasix -) 40 mg PO DAILY [facility] Last Admin: 06/16/18 10:37 Dose: 40 mg Gabapentin (Neurontin -) 300 mg PO BID [facility] Last Admin: 06/16/18 10:37 Dose: 300 mg Glipizide (Glucotrol -) 5 mg PO TIDAC [facility] Last Admin: 06/16/18 12:15 Dose: 5 mg Insulin Aspart (Novolog Vial Sliding Scale -) 1 vial SQ [facility]; Protocol Last Admin: 06/16/18 11:05 Dose: 2 units Insulin Detemir (Levemir Vial) 15 units SQ [facility] Last Admin: 06/15/18 21:43 Dose: 15 units Levothyroxine Sodium (Synthroid -) 50 mcg PO DAILY@0700 [facility] Last Admin: 06/16/18 06:13 Dose: 50 mcg Losartan Potassium (Cozaar -) 25 mg PO DAILY [facility] Last Admin: 06/16/18 10:37 Dose: 25 mg Tamsulosin HCl (Flomax -) 0.4 mg PO DAILY@0830 [facility] Last Admin: 06/16/18 09:20 Dose: 0.4 mg - Objective Vital Signs: Vital Signs Temperature 98.0 F 06/16/18 14:52 Pulse Rate 60 06/16/18 14:52 Respiratory Rate 20 06/16/18 14:52 Blood Pressure 140/64 06/16/18 14:52 O2 Sat by Pulse Oximetry (%) 96 06/16/18 09:00 HENT: Yes: Atraumatic Neck: Yes: Supple Cardiovascular: Yes: Regular Rate and Rhythm, Murmur (SM), S1, S2 Respiratory: Yes: CTA Bilaterally Gastrointestinal: Yes: Normal Bowel Sounds, Soft. No: Tenderness Edema: No Labs: CBC, BMP 06/15/18 05:30 06/16/18 07:15 Problem List - Problems (1) CHF exacerbation Code(s): I50.9 - HEART FAILURE, UNSPECIFIED Qualifiers: Heart failure type: diastolic Qualified Code(s): I50.33 - Acute on chronic diastolic (congestive) heart failure (2) Non-occlusive coronary artery disease Code(s): I25.10 - ATHSCL HEART DISEASE OF [place] CORONARY ARTERY W/O ANG PCTRS (3) Hyponatremia Code(s): E87.1 - HYPO-OSMOLALITY AND HYPONATREMIA (4) Anemia Code(s): D64.9 - ANEMIA, UNSPECIFIED Qualifiers: Anemia type: unspecified type Qualified Code(s): D64.9 - Anemia, unspecified (5) CAD (coronary artery disease) Code(s): I25.10 - ATHSCL HEART DISEASE OF [place] CORONARY ARTERY W/O ANG PCTRS Qualifiers: Coronary Disease-Associated Artery/Lesion type: [place] artery [place] vs. transplanted heart: [place] heart Associated angina: with unspecified angina Qualified Code(s): I25.119 - Atherosclerotic heart disease of [place] coronary artery with unspecified angina pectoris (6) Chronic renal disease Code(s): N18.9 - CHRONIC KIDNEY DISEASE, UNSPECIFIED Qualifiers: Chronic kidney disease stage: unspecified stage Qualified Code(s): N18.9 - Chronic kidney disease, unspecified (7) Diabetes mellitus Code(s): E11.9 - TYPE 2 DIABETES MELLITUS WITHOUT COMPLICATIONS Qualifiers: Diabetes mellitus type: other specified (including JAVAD) Diabetes mellitus [place] insulin use: without nursing home use Diabetes mellitus complication status: without complication Qualified Code(s): E13.9 - Other specified diabetes mellitus without complications (8) Diverticulosis Code(s): K57.90 - DVRTCLOS OF INTEST, PART UNSP, W/O PERF OR ABSCESS W/O BLEED (9) Hyperlipidemia Code(s): E78.5 - HYPERLIPIDEMIA, UNSPECIFIED Qualifiers: Hyperlipidemia type: pure hypercholesterolemia Qualified Code(s): E78.00 - Pure hypercholesterolemia, unspecified; E78.0 - Pure hypercholesterolemia (10) Hypertension Code(s): I10 - ESSENTIAL (PRIMARY) HYPERTENSION Qualifiers: Hypertension type: essential hypertension Qualified Code(s): I10 - Essential (primary) hypertension (11) Hypothyroidism Code(s): E03.9 - HYPOTHYROIDISM, UNSPECIFIED Qualifiers: Hypothyroidism type: unspecified Qualified Code(s): E03.9 - Hypothyroidism , unspecified Assessment/Plan 1. Acute on chronic diastolic failure 2. Non-obstructive CAD angina pectoris endothelial dysfunction 3. Aortic valve sclerosis/stenosis mild in severity 4. HTN 5. NIDDM 6. Hypercholesterolemia 7. Hypothyroidism 8. Acute on chronic CKD 9. Anemia PLAN: 1. Furosemide and monitor renal function and electrolytes 2. Continue ASA 81 qd, Lipitor 10 qhs, Losartan 25 qd as tolerated 3. Carvedilol 6.25 bid 4. DVT prophylaxis Further plans are to follow Apollo Kiser MD
[2018-06-16] MEDS: INSULIN (LEVEMIR) 100 UNITS/ML UNITS SQ SCH (21:44)
[2018-06-16] MEDS: HEPARIN NA (PORCINE) 5,000 UNITS/ML 1ML VIAL SQ SCH (21:45)
[2018-06-16] MEDS: ATORVASTATIN CA 10 MG TABLET (FP) PO SCH (21:45)
[2018-06-17] MEDS: glipiZIDE 5 MG TABLET (FP) PO SCH ×2 (06:06→12:07)
[2018-06-17] MEDS: LEVOTHYROXINE NA 50 MCG TABLET (FP) PO SCH (06:06)
[2018-06-17] MEDS: INSULIN SLIDING SCALE (NOVOLOG) 1 VIAL SQ SCH ×2 (06:07→12:07)
[2018-06-17] MEDS: TAMSULOSIN HCL 0.4 MG CAP PO SCH (08:20)
[2018-06-17] MEDS ORDERED: PT OWN MED DRAWER 7, Y5N ONE (08:20)
[2018-06-17 09:28] VITALS: BP 141/57; PULSE 54; TEMP 98
--- NOTE | 2018-06-17 09:51 | PN ---
Progress Note, Physician Chief Complaint: Not in distress History of Present Illness: Patient was seen and examined. Awake and alert. Chart was reviewed Denies chest pain or SOB - Current Medication List Current Medications: Active Medications Acetaminophen (Tylenol -) 500 mg PO Q6H PRN PRN Reason: PAIN LEVEL 1 - 3 Allopurinol (Zyloprim -) 100 mg PO DAILY [facility] Last Admin: 06/16/18 10:37 Dose: 100 mg Aspirin (Asa -) 81 mg PO DAILY [facility] Last Admin: 06/16/18 10:37 Dose: 81 mg Atorvastatin Calcium (Lipitor -) 10 mg PO HS [facility] Last Admin: 06/16/18 21:45 Dose: 10 mg Carvedilol (Coreg -) 6.25 mg PO BID [facility] Last Admin: 06/16/18 21:45 Dose: 6.25 mg Furosemide (Lasix -) 40 mg PO DAILY [facility] Last Admin: 06/16/18 10:37 Dose: 40 mg Gabapentin (Neurontin -) 300 mg PO BID [facility] Last Admin: 06/16/18 21:45 Dose: 300 mg Glipizide (Glucotrol -) 5 mg PO TIDAC [facility] Last Admin: 06/17/18 06:06 Dose: 5 mg Heparin Sodium (Porcine) (Heparin -) 5,000 unit SQ BID [facility] Last Admin: 06/16/18 21:45 Dose: 5,000 unit Insulin Aspart (Novolog Vial Sliding Scale -) 1 vial SQ [facility]; Protocol Last Admin: 06/17/18 06:07 Dose: 2 units Insulin Detemir (Levemir Vial) [address] [facility] Last Admin: 06/16/18 21:44 Dose: 15 units Levothyroxine Sodium (Synthroid -) 50 mcg PO DAILY@0700 [facility] Last Admin: 06/17/18 06:06 Dose: 50 mcg Losartan Potassium (Cozaar -) 25 mg PO DAILY [facility] Last Admin: 06/16/18 10:37 Dose: 25 mg Tamsulosin HCl (Flomax -) 0.4 mg PO DAILY@0830 [facility] Last Admin: 06/17/18 08:20 Dose: 0.4 mg - Objective Vital Signs: Vital Signs Temperature 98.0 F 06/17/18 09:27 Pulse Rate 54 L 06/17/18 09:27 Respiratory Rate 18 06/17/18 09:27 Blood Pressure 141/57 L 06/17/18 09:27 O2 Sat by Pulse Oximetry (%) 96 06/16/18 21:00 Eyes: Yes: PERRL HENT: Yes: Atraumatic Neck: Yes: Supple Cardiovascular: Yes: Regular Rate and Rhythm, Murmur (SM), S1, S2 Respiratory: Yes: CTA Bilaterally Gastrointestinal: Yes: Normal Bowel Sounds, Soft. No: Tenderness Edema: No Labs: CBC, BMP 06/15/18 05:30 06/16/18 07:15 Problem List - Problems (1) CHF exacerbation Code(s): I50.9 - HEART FAILURE, UNSPECIFIED Qualifiers: Heart failure type: diastolic Qualified Code(s): I50.33 - Acute on chronic diastolic (congestive) heart failure (2) Non-occlusive coronary artery disease Code(s): I25.10 - ATHSCL HEART DISEASE OF [place] CORONARY ARTERY W/O ANG PCTRS (3) Hyponatremia Code(s): E87.1 - HYPO-OSMOLALITY AND HYPONATREMIA (4) Anemia Code(s): D64.9 - ANEMIA, UNSPECIFIED Qualifiers: Anemia type: unspecified type Qualified Code(s): D64.9 - Anemia, unspecified (5) CAD (coronary artery disease) Code(s): I25.10 - ATHSCL HEART DISEASE OF [place] CORONARY ARTERY W/O ANG PCTRS Qualifiers: Coronary Disease-Associated Artery/Lesion type: [place] artery [place] vs. transplanted heart: [place] heart Associated angina: with unspecified angina Qualified Code(s): I25.119 - Atherosclerotic heart disease of [place] coronary artery with unspecified angina pectoris (6) Chronic renal disease Code(s): N18.9 - CHRONIC KIDNEY DISEASE, UNSPECIFIED Qualifiers: Chronic kidney disease stage: unspecified stage Qualified Code(s): N18.9 - Chronic kidney disease, unspecified (7) Diabetes mellitus Code(s): E11.9 - TYPE 2 DIABETES MELLITUS WITHOUT COMPLICATIONS Qualifiers: Diabetes mellitus type: other specified (including JAVAD) Diabetes mellitus custodial insulin use: without custodial use Diabetes mellitus complication status: without complication Qualified Code(s): E13.9 - Other specified diabetes mellitus without complications (8) Diverticulosis Code(s): K57.90 - DVRTCLOS OF INTEST, PART UNSP, W/O PERF OR ABSCESS W/O BLEED (9) Hyperlipidemia Code(s): E78.5 - HYPERLIPIDEMIA, UNSPECIFIED Qualifiers: Hyperlipidemia type: pure hypercholesterolemia Qualified Code(s): E78.00 - Pure hypercholesterolemia, unspecified; E78.0 - Pure hypercholesterolemia (10) Hypertension Code(s): I10 - ESSENTIAL (PRIMARY) HYPERTENSION Qualifiers: Hypertension type: essential hypertension Qualified Code(s): I10 - Essential (primary) hypertension (11) Hypothyroidism Code(s): E03.9 - HYPOTHYROIDISM, UNSPECIFIED Qualifiers: Hypothyroidism type: unspecified Qualified Code(s): E03.9 - Hypothyroidism , unspecified Assessment/Plan 1. Acute on chronic diastolic failure 2. Non-obstructive CAD angina pectoris endothelial dysfunction 3. Aortic valve sclerosis/stenosis mild in severity 4. HTN 5. NIDDM 6. Hypercholesterolemia 7. Hypothyroidism 8. Acute on chronic CKD 9. Anemia PLAN: 1. Furosemide and monitor renal function and electrolytes 2. Continue ASA 81 qd, Lipitor 10 qhs, Losartan 25 qd as tolerated 3. Carvedilol 6.25 bid 4. DVT prophylaxis 5. Discharge planning today and to follow up in office Further plans are to follow Apollo Kiser MD
[2018-06-17] MEDS: LOSARTAN POTASSIUM 25 MG TABLET PO SCH (09:57)
[2018-06-17] MEDS: CARVEDILOL 6.25 MG TABLET (FP) PO SCH (09:57)
[2018-06-17] MEDS: FUROSEMIDE 40 MG TABLET (FP) PO SCH (09:57)
[2018-06-17] MEDS: ASPIRIN 81 MG CHEWABLE TABLETS PO SCH (09:57)
[2018-06-17] MEDS: ALLOPURINOL 100 MG TABLET (FP) PO SCH (09:57)
[2018-06-17] MEDS: HEPARIN NA (PORCINE) 5,000 UNITS/ML 1ML VIAL SQ SCH (09:57)
[2018-06-17] MEDS: GABAPENTIN 300 MG CAPSULE (FP) PO SCH (09:57)
--- NOTE | 2018-06-17 10:15 | DS ---
Physical Examination Vital Signs: Vital Signs Temperature 98.0 F 06/17/18 09:27 Pulse Rate 54 L 06/17/18 09:27 Respiratory Rate 18 06/17/18 09:27 Blood Pressure 141/57 L 06/17/18 09:27 O2 Sat by Pulse Oximetry (%) 96 06/16/18 21:00 Findings/Remarks: feeling better no SOB wants to go home; has home O2 NC portable use but does not use it continuously; d/w pt and daughter ADA diet and meds compliance; pt does NOT want any rehab, SNF nor home PT or VNS; daughter at bedside, dw them meds, f/u needed; daughter said she wull drive pt home, they live less than 5 minutes away from [place] Constitutional: Yes: No Distress, Calm Eyes: Yes: Conjunctiva Clear HENT: Yes: Atraumatic Neck: Yes: Supple Cardiovascular: Yes: Regular Rate and Rhythm Respiratory: Yes: CTA Bilaterally Gastrointestinal: Yes: Soft. No: Distention Renal/: No: CVA Tenderness - Left, CVA Tenderness - Right Musculoskeletal: No: Joint Stiffness, Joint Swelling Extremities: No: Cold, Cool, Cyanosis Edema: No Integumentary: No: Rash, Venous Stasis Changes Neurological: Yes: WNL, Alert, Oriented ...Motor Strength: WNL Psychiatric: Yes: WNL, Alert, Oriented. No: Agitated, Suicidal Ideation Labs: CBC, BMP 06/15/18 05:30 06/16/18 07:15 Discharge Summary Reason For Visit: Shortness of Breath Current Active Problems CHF exacerbation (Acute) Non-occlusive coronary artery disease (Acute) Procedures: Principal: admitted with SOB, CHF exac; ARF/CRF Other Procedures: seen by cardiology, IV lasix; meds adjusted;. also needs diabetes control ADA diet; meds adjusted. Hospital Course: improved with above; DC home f/u as advised; meds ordered as needed; d/w pt and daughter. Condition: Improved - Instructions Diet, Activity, Other Instructions: f/u PCP and cardiology and renal in 1-2 weeks after DC take meds as advised LS LF ADA diet avoid Nsaids home PT; falls PFX; health maintenance per PCP outpt; Home O2 NC 2L/min prn use (pt has portable O2 tank) RTER IF worse or recurrent c/o Referrals: Jam Sunshine MD [Primary Care Provider] - Wm Tian MD [Staff Physician] - Berlin Arroyo MD [Staff Physician] - Disposition: VNS/HOME HEALTH CARE - Home Medications Comprehensive Discharge Medication List: Ambulatory Orders Aspirin Coated [Ecotrin -] 81 mg PO DAILY #30 tablet.ec 07/09/16 Levothyroxine [Synthroid -] 50 mcg PO DAILY #90 tablet 07/09/16 Allopurinol [Zyloprim -] 100 mg PO DAILY 10/02/17 Atorvastatin Ca [Lipitor] 10 mg PO HS 10/02/17 Gabapentin [Neurontin -] 300 mg PO BID 10/02/17 Glipizide [Glucotrol -] 5 mg PO TID 10/02/17 Acetaminophen [Tylenol .Extra-Strength -] 500 mg PO Q6H PRN tablet 11/12/17 Tamsulosin HCl [Flomax -] 0.4 mg PO DAILY@0830 #90 cap.er.24h 11/12/17 Insulin Glargine,Hum.rec.anlog [Lantus Solostar] 18 unit SQ HS 02/15/18 Carvedilol [Coreg -] 6.25 mg PO BID #60 tablet 06/16/18 Furosemide [Lasix -] 40 mg PO DAILY #30 tablet 06/16/18 Insulin (Levemir) [Levemir Vial] 15 units SQ HS units 06/16/18 Losartan Potassium [Cozaar -] 25 mg PO DAILY #30 tablet 06/16/18
[2018-06-17] MEDS ORDERED: INSULIN (NOVOLOG) ASPART 100 UNITS/ML 10ML VIAL ONE (12:04)
--- NOTE | 2018-06-18 16:34 | EKG ---
Test Reason : Blood Pressure : / mmHG Vent. Rate : 072 BPM Atrial Rate : 091 BPM P-R Int : 000 ms QRS Dur : 084 ms QT Int : 438 ms P-R-T Axes : 066 074 069 degrees QTc Int : 479 ms SINUS RHYTHM WITH MARKED SINUS ARRHYTHMIA WITH SHORT VA NONSPECIFIC ST AND T WAVE ABNORMALITY ABNORMAL ECG WHEN COMPARED WITH ECG OF 15-FEB-2018 17:24, T WAVE VARIATION Confirmed by KARON SCHROEDER, BETO ([id number]) on 06/18/2018 4:33:40 PM Referred By: AM Confirmed By:BEOT BRANTLEY MD
== END 2018-06-17 17:00 | disposition home health service (06) | DRG 682 ==
LOC: JER 11:34 → JERBED 16:31 → J4W 18:49 → OBSVTOIN 20:49 → J6S 06-15 11:07
PROVIDERS: ADMIT Specialist; ATTEND Specialist
DX: N17.9 Acute kidney failure, unspecified (principal); I50.33 Acute on chronic diastolic (congestive) heart failure; I13.0 Hypertensive heart and chronic kidney disease with heart failure and stage 1 through stage 4 chronic kidney disease, or unspecified chronic kidney disease; N18.3 Chronic kidney disease, stage 3 (moderate); E11.22 Type 2 diabetes mellitus with diabetic chronic kidney disease; Z79.4 Long term (current) use of insulin; E78.5 Hyperlipidemia, unspecified; E03.9 Hypothyroidism, unspecified; I35.0 Nonrheumatic aortic (valve) stenosis; D64.9 Anemia, unspecified; I25.119 Atherosclerotic heart disease of native coronary artery with unspecified angina pectoris
CPT/HCPCS: 36415; 71045-TC-FY; 80048; 80053; 81003; 82962; 83690; 83880; 84484; 85025; 85027; 85610; 85730; 87086; 93005; 93010; 97116-GP; 97161-GP; 99283-25; G0378; J1644

== ENCOUNTER 2018-10-09 10:44 | Inpatient (IN) | payer OTHER ==
[2018-10-09 10:57] VITALS: BMI 30.7
--- NOTE | 2018-10-09 12:52 | PDOC ---
History of Present Illness - General Chief Complaint: Edema Stated Complaint: SOB/LEG SWELLING/TWITCHING Time Seen by Provider: 10/09/18 11:49 - History of Present Illness Initial Comments: 10/09/18 12:54 83 F with h/o CHF, HTN, HLD, CAD, CKD, DM, hypothyroid, chronic abdominal pain, and GERD, presenting with SOB, [place], and unsteady gait. Per daughter, pt first started complaining yesterday that her legs felt like they were going to give out from under her. When she ambulates, pt requires more assistance. She states that her legs "twitch", and she feels like she is going to fall. Pt denies unilateral weakness. Pt also endorses worsening [place], stating that she can only go a few steps before she needs to stop and catch her breath. Has been taking torsemide as prescribed but notes that her LE edema has not improved. SHe states she makes urine about twice a day. Daughter notes that pt had a similar presentation in the past when she was found to have a low sodium. Past History - Past Medical History Allergies/Adverse Reactions: Allergies Allergy/AdvReac Type Severity Reaction Status Date / Time No Known Allergies Allergy Verified 10/09/18 14:05 Home Medications: Ambulatory Orders Aspirin Coated [Ecotrin -] 81 mg PO DAILY #30 tablet.ec 07/09/16 Levothyroxine [Synthroid -] 50 mcg PO DAILY #90 tablet 07/09/16 Allopurinol [Zyloprim -] 100 mg PO DAILY 10/02/17 Atorvastatin Ca [Lipitor] 10 mg PO HS 10/02/17 Gabapentin [Neurontin -] 300 mg PO BID 10/02/17 Glipizide [Glucotrol -] 5 mg PO TID 10/02/17 Acetaminophen [Tylenol .Extra-Strength -] 500 mg PO Q6H PRN tablet 11/12/17 Tamsulosin HCl [Flomax -] 0.4 mg PO DAILY@0830 #90 cap.er.24h 11/12/17 Insulin Glargine,Hum.rec.anlog [Lantus Solostar] 18 unit SQ HS 02/15/18 Carvedilol [Coreg -] 6.25 mg PO BID #60 tablet 06/16/18 Furosemide [Lasix -] 40 mg PO DAILY #30 tablet 06/16/18 Insulin (Levemir) [Levemir Vial] 15 units SQ HS units 06/16/18 Losartan Potassium [Cozaar -] 25 mg PO DAILY #30 tablet 06/16/18 COPD: No CHF: Yes Diabetes: Yes GI Disorders: Yes (GERD.) HTN: Yes Hypercholesterolemia: Yes Thyroid Disease: Yes (HYPO.) - Surgical History Abdominal Surgery: Yes - Immunization History Immunization Up to Date: Yes - Suicide/Smoking/Psychosocial Hx Smoking Status: No Smoking History: Never smoked Have you smoked in the past 12 months: No Number of Cigarettes Smoked Daily: 0 Information on smoking cessation initiated: No Hx Alcohol Use: No Drug/Substance Use Hx: No Substance Use Type: None Hx Substance Use Treatment: No Review of Systems - Review of Systems Comments:: 10/09/18 13:01 GENERAL/CONSTITUTIONAL: No fever or chills. No weakness. HEAD, EYES, EARS, NOSE AND THROAT: No change in vision. No ear pain or discharge. No sore throat. CARDIOVASCULAR: + shortness of breath, no CP, no loss of consciousness RESPIRATORY: No cough, wheezing, or hemoptysis. GASTROINTESTINAL: No nausea, vomiting, diarrhea or constipation. GENITOURINARY: No dysuria, frequency, or change in urination. MUSCULOSKELETAL: No joint or muscle swelling or pain. No neck or back pain. SKIN: No rash NEUROLOGIC: + BLE weakness, No vertigo ENDOCRINE: No increased thirst. No abnormal weight change. HEMATOLOGIC/LYMPHATIC: No anemia, easy bleeding, or history of blood clots. ALLERGIC/IMMUNOLOGIC: No hives or skin allergy. *Physical Exam - Vital Signs Last Vital Signs Temp Pulse Resp BP Pulse Ox 97.6 F 76 16 133/45 L 96 10/09/18 10:52 10/09/18 10:52 10/09/18 10:52 10/09/18 10:52 10/09/18 10:52 - Physical Exam Comments: 10/09/18 13:06 GENERAL: Awake, alert, and fully oriented, in no acute distress. HEAD: No signs of trauma EYES: PERRLA, EOMI, sclera anicteric, conjunctiva clear ENT: Auricles normal inspection, hearing grossly normal, nares patent, oropharynx clear without exudates. Moist mucosa NECK: Nontender, no stepoffs, Normal ROM, supple, no lymphadenopathy, JVD, or masses LUNGS: Breath sounds equal, clear to auscultation bilaterally. No wheezes, and no crackles HEART: Regular rate and rhythm, normal S1 and S2, no murmurs, rubs or gallops ABDOMEN: Soft, nontender, normoactive bowel sounds. No guarding, no rebound. No masses EXTREMITIES: + BLE edema, No clubbing or cyanosis. No cords, erythema, or tenderness NEUROLOGICAL: + ataxic gait, Cranial nerves II through XII intact. 5/5 strength and sensation in all extremities SKIN: Warm, Dry, normal turgor, no rashes or lesions noted. Heart Score/ECG Review - ECG Impressions Comment:: 10/09/18 13:59 NSR, no MIN/STDs, no TWIs, axis wnl, QTc 473 ED Treatment Course - LABORATORY CBC & Chemistry Diagram: 10/11/18 05:30 10/11/18 05:30 - RADIOLOGY Radiology Studies Ordered: Category Date Time Status HEAD CT WITHOUT CONTRAST [CT] Stat CT Scan 10/09/18 12:21 Ordered CHEST PA & LAT [RAD] Stat Radiology 10/09/18 12:13 Ordered Medical Decision Making - Critical Care Time Total Critical Care Time (minutes): 60 Critical Care Statement: The care of this patient involved high complexity decision making to prevent further life threatening deterioration of the patient 's condition and/or to evaluate & treat vital organ system(s) failure or risk of failure. - Medical Decision Making 10/09/18 13:07 83 F with generalized weakness, [place], SOB. Pt likely having CHF exacerbation. Pt' s BLE weakness may be 2/2 electrolyte derangement, as she has had hypoNa in the past. Pt with gait ataxia but no other unilateral neuro deficits to suggest CVA. - Labs - CT head - CXR 10/09/18 14:46 UA + for UTI Labs otherwise unremarkable, Na 133, BNP wnl CXR clear 10/09/18 15:25 CT head negative Spoke with Dr. Hooker, who recommends MRI to r/o cerebellar lesion vs demyelinating process Will order MRI brain 10/09/18 16:[address] Sunshine *DC/Admit/Observation/Transfer Diagnosis at time of Disposition: Ataxia - Discharge Dispostion Condition at time of disposition: Stable Decision to Admit order: Yes - Referrals - Patient Instructions - Post Discharge Activity - Attestations Physician Attestion: 10/09/18 16:38 I, Dr. Severino Floyd MD, attest that this document has been prepared under my direction and personally reviewed by me in its entirety. I further attest, that it accurately reflects all work, treatment, procedures and medical decision -making performed by me.
[2018-10-09 13:51] LABS: BASO % 0.5 % (0-2.0); HEMATOCRIT 31.6 % (32.4-45.2); HEMOGLOBIN 10.3 GM/dL (10.7-15.3); LYMPH % 18.1 % (8-40); MCH 26.3 pg (25.7-33.7); MCHC 32.5 g/dl (32.0-36.0); MEAN CELL VOLUME 80.9 fl (80-96); MEAN PLT VOLUME 8.3 fl (7.5-11.1); MONO % 7.9 % (3.8-10.2); NEUT % 63.5 % (42.8-82.8); PLATELET COUNT 229 K/MM3 (134-434); RDW 17.9 % (11.6-15.6); WHITE BLOOD COUNT 8.6 K/mm3 (4.0-10.0)
[2018-10-09 14:14] LABS: ALBUMIN 3.1 g/dl (3.4-5.0); ALK PHOS 108 U/L (45-117); ANION GAP 8 MMOL/L (8-16); BILIRUBIN,TOTAL 0.4 mg/dL (0.2-1); BLOOD UREA NITROGEN 41 mg/dL (7-18); CALCIUM 7.9 mg/dL (8.5-10.1); CHLORIDE 93 mmol/L (98-107); CO2 31 mmol/L (21-32); CREATININE 2.1 mg/dL (0.55-1.3); GLUCOSE,RANDOM 197 mg/dL (74-106); LIPASE 201 U/L (73-393); N-TERMINAL BNP 192.4 pg/ml (5-450); POTASSIUM 3.8 mmol/L (3.5-5.1); SGOT/AST 25 U/L (15-37); SGPT/ALT 19 U/L (13-61); SODIUM 133 mmol/L (136-145); TOT PROT 6.9 g/dl (6.4-8.2)
[2018-10-09 14:24] LABS: EPI CELLS 0.6 /HPF (0-5/HPF); PH,URINE 6.5 (5.0-8.0); URINE APPEARANCE CLEAR; URINE BACTERIA 630.3 /hpf (NEGATIVE); URINE BILIRUBIN NEGATIVE (NEGATIVE); URINE CASTS 1 /lpf (0-8); URINE COLOR YELLOW; URINE GLUCOSE (UA) NEGATIVE (NEGATIVE); URINE KETONE NEGATIVE (NEGATIVE); URINE LEUK ESTERASE 3+ (NEGATIVE); URINE NITRITE NEGATIVE (NEGATIVE); URINE PROTEIN NEGATIVE (NEGATIVE); URINE RBC 1 /hpf (0-4); URINE UROBILINOGEN 0.2 mg/dL (0.2-1.0); URINE WBC 28 /hpf (0-5)
--- NOTE | 2018-10-09 14:59 | EKG ---
Test Reason : Blood Pressure : / mmHG Vent. Rate : 072 BPM Atrial Rate : 072 BPM P-R Int : 142 ms QRS Dur : 084 ms QT Int : 432 ms P-R-T Axes : 049 053 056 degrees QTc Int : 473 ms SINUS RHYTHM WITH PREMATURE SUPRAVENTRICULAR COMPLEXES NONSPECIFIC T WAVE ABNORMALITY PROLONGED QT ABNORMAL ECG WHEN COMPARED WITH ECG OF 12-JUN-2018 12:00, PREMATURE SUPRAVENTRICULAR COMPLEXES ARE NOW PRESENT Confirmed by MD Jonny, Giovany ([id number]) on 10/09/2018 2:59:24 PM Referred By: Confirmed By:Giovany Fuller MD
[2018-10-09] MEDS ORDERED: CEFTRIAXONE 1,000 MG in DEXTROSE 5%-WATER - 50 ML IVPB ONE (15:41)
[2018-10-09] MEDS ORDERED: CEFTRIAXONE 1 GM/50 ML BAG ONE (16:14)
[2018-10-09] MEDS ORDERED: ACETAMINOPHEN 500 MG TABLET (FP) PO PRN (16:45)
[2018-10-09] MEDS ORDERED: glipiZIDE 5 MG TABLET (FP) ONE (18:09)
[2018-10-09] MEDS: glipiZIDE 5 MG TABLET (FP) PO SCH (18:19)
--- NOTE | 2018-10-09 20:35 | CON.NEURO ---
Consult Consult Specialty:: NEUROLOGY-CHANTELL SCHROEDER - History of Present Illness History of Present Illness: 83 F with h/o CHF, HTN, HLD, CAD, CKD, DM, hypothyroid, chronic abdominal pain, and GERD, presenting with SOB, [place], and unsteady gait. Per daughter, pt first started complaining yesterday that her legs felt like they were going to give out from under her. When she ambulates, pt requires more assistance. She states that her legs "twitch", and she feels like she is going to fall. Pt denies unilateral weakness. Pt also endorses worsening [place], stating that she can only go a few steps before she needs to stop and catch her breath. Has been taking torsemide as prescribed but notes that her LE edema has not improved. SHe states she makes urine about twice a day. Daughter notes that pt had a similar presentation in the past when she was found to have a low sodium. -Pt. reports she has been unstaedy x 3 months at least, has fallen x 3 in these 3 months and looses urine(incont.) at times. Also reports "weakness" left leg x months. - Past Medical History Cardio/Vascular: Yes: CAD (non-obstructive), CHF, HTN, Hyperlipdemia, Other ( Angina pectoris) Gastrointestinal: Yes: Constipation, Diverticulosis, GERD, Other (colon polyps: sessil serrated adenomas x 2 2014) Renal/: Yes: Renal Inusuff Musculoskeletal: Yes: Other (Spinal stenosis) Endocrine: Yes: Diabetes Mellitus (Insulin dependent), Hypothyroidism - Past Surgical History Past Surgical History: Yes: Hysterectomy (B[place], BSO in 1981), Oopherectomy - Alcohol/Substance Use Hx Alcohol Use: No History of Substance Use: reports: None - Smoking History Smoking history: Never smoked Have you smoked in the past 12 months: No Aproximately how many cigarettes per day: 0 - Social History Usual Living Arrangement: With Spouse ADL: Independent History of Recent Travel: Yes (WENT TO [place] TWO YEARS AGO) Home Medications - Allergies Allergies/Adverse Reactions: Allergies Allergy/AdvReac Type Severity Reaction Status Date / Time No Known Allergies Allergy Verified 10/09/18 14:05 - Home Medications Home Medications: Ambulatory Orders Aspirin Coated [Ecotrin -] 81 mg PO DAILY #30 tablet.ec 07/09/16 Levothyroxine [Synthroid -] 50 mcg PO DAILY #90 tablet 07/09/16 Allopurinol [Zyloprim -] 100 mg PO DAILY 10/02/17 Atorvastatin Ca [Lipitor] 10 mg PO HS 10/02/17 Gabapentin [Neurontin -] 300 mg PO BID 10/02/17 Glipizide [Glucotrol -] 5 mg PO TID 10/02/17 Acetaminophen [Tylenol .Extra-Strength -] 500 mg PO Q6H PRN tablet 11/12/17 Tamsulosin HCl [Flomax -] 0.4 mg PO DAILY@0830 #90 cap.er.24h 11/12/17 Insulin Glargine,Hum.rec.anlog [Lantus Solostar] 18 unit SQ HS 02/15/18 Carvedilol [Coreg -] 6.25 mg PO BID #60 tablet 06/16/18 Furosemide [Lasix -] 40 mg PO DAILY #30 tablet 06/16/18 Insulin (Levemir) [Levemir Vial] 15 units SQ HS units 06/16/18 Losartan Potassium [Cozaar -] 25 mg PO DAILY #30 tablet 06/16/18 Family Disease History - Family Disease History Family Disease History: Diabetes: Brother, Sister, Other: Father ( in his 50s ? etiology) Physical Exam-Neuro Vital Signs: Vital Signs Temperature 97.6 F 10/09/18 10:52 Pulse Rate 76 10/09/18 10:52 Respiratory Rate 16 10/09/18 10:52 Blood Pressure 133/45 L 10/09/18 10:52 O2 Sat by Pulse Oximetry (%) 96 10/09/18 10:52 Labs: CBC, BMP 10/09/18 13:00 10/09/18 13:00 - Neuro Exam Level Of Consciousness: Yes: Alert, Oriented to Person, Oriented to Place Speech: WNL Mini Mental Exam: Awake, alert, impaired concentration mildly. Cranial Nerves II-XII Intact: Yes DTR's: 1+ Left Brachioradialis, 1+ Right Brachioradialis, 1+ Left Achilles, 1+ Right Achilles (bilat knees-3+. Tone increased in both legs), 3+ Left Bicep, 3+ Right Bicep, 3+ Left Tricep, 3+ Right Tricep Response to light touch: Normal Response to pain prick: Normal Response to temperature: Normal Response to vibration: Normal Motor Strength: 4/5: Left Leg, 5/5: Left Arm, Right Arm, Right Leg Gait: Other (wide based, unsteady) Assessment/Plan Pt. with progressive ataxia, urinary incont. falls. Her exam reveals increased tone in both legs and brisk UE reflexes. Comapred to CT head last year the ventricles on CT head appear larger. DDX. for patients presentation includes NPH, cervical myelopathy?? infarct in right subort. region causing left leg weakness. Suggest: MRI brain/Cspine Vut B12/TFTs Pt/rehab consult Neurosurgery consult(suggest Dr. Pappas) ?? NPH Thank you, Sheldon Hooker MD
[2018-10-09] MEDS ORDERED: GABAPENTIN 100 MG CAPSULE (FP) ONE (22:20)
[2018-10-09] MEDS ORDERED: ATORVASTATIN CA 10 MG TABLET (FP) ONE (22:20)
[2018-10-09] MEDS ORDERED: CARVEDILOL 12.5 MG TABLET (FP) ONE (22:20)
[2018-10-09] MEDS: GABAPENTIN 300 MG CAPSULE (FP) PO SCH (22:27)
[2018-10-09] MEDS: CARVEDILOL 6.25 MG TABLET (FP) PO SCH (22:27)
[2018-10-09] MEDS: ATORVASTATIN CA 10 MG TABLET (FP) PO SCH (22:27)
[2018-10-09] MEDS ORDERED: INSULIN (LEVEMIR) 100 UNITS/ML UNITS SQ ONE (22:43)
[2018-10-09] MEDS ORDERED: INSULIN (NOVOLOG) ASPART 100 UNITS/ML 10ML VIAL ONE (22:43)
[2018-10-09] MEDS: INSULIN SLIDING SCALE (NOVOLOG) 1 VIAL SQ SCH (22:48)
[2018-10-09] MEDS: INSULIN (LEVEMIR) 100 UNITS/ML UNITS SQ SCH (22:48)
--- NOTE | 2018-10-09 23:45 | HP ---
Admitting History and Physical - Primary Care Physician PCP: Jam Sunshine - Admission Chief Complaint: Unable to walk History of Present Illness: Pt with known CAD, CHF, DM, CRF states that since yesterday her legs got weak, "jumping", to the point that pt is unable to keep her balance and walk. Pt without weakness in one leg or arm vs the other, no difficulty speaking. History Source: Patient, Family Member ( at bedside) Limitations to Obtaining History: No Limitations - Past Medical History Cardiovascular: Yes: CAD (non-obstructive), CHF, HTN, Hyperlipdemia, Other ( Angina pectoris) Gastrointestinal: Yes: Constipation, Diverticulosis, GERD, Other (colon polyps: sessil serrated adenomas x 2 2014) Renal/: Yes: Renal Inusuff Musculoskeletal: Yes: Other (Spinal stenosis) Endocrine: Yes: Diabetes Mellitus (Insulin dependent), Hypothyroidism - Past Surgical History Past Surgical History: Yes: Hysterectomy ([place], BSO in 1981), Oopherectomy - Smoking History Smoking history: Never smoked Have you smoked in the past 12 months: No Aproximately how many cigarettes per day: 0 - Alcohol/Substance Use Hx Alcohol Use: No History of Substance Use: reports: None - Social History ADL: Independent History of Recent Travel: Yes (WENT TO [place] TWO YEARS AGO) Home Medications - Allergies Allergies/Adverse Reactions: Allergies Allergy/AdvReac Type Severity Reaction Status Date / Time No Known Allergies Allergy Verified 10/09/18 14:05 - Home Medications Home Medications: Ambulatory Orders Aspirin Coated [Ecotrin -] 81 mg PO DAILY #30 tablet.ec 07/09/16 Levothyroxine [Synthroid -] 50 mcg PO DAILY #90 tablet 07/09/16 Allopurinol [Zyloprim -] 100 mg PO DAILY 10/02/17 Atorvastatin Ca [Lipitor] 10 mg PO HS 10/02/17 Gabapentin [Neurontin -] 300 mg PO BID 10/02/17 Glipizide [Glucotrol -] 5 mg PO TID 10/02/17 Acetaminophen [Tylenol .Extra-Strength -] 500 mg PO Q6H PRN tablet 11/12/17 Tamsulosin HCl [Flomax -] 0.4 mg PO DAILY@0830 #90 cap.er.24h 11/12/17 Insulin Glargine,Hum.rec.anlog [Lantus Solostar] 18 unit SQ HS 02/15/18 Carvedilol [Coreg -] 6.25 mg PO BID #60 tablet 06/16/18 Furosemide [Lasix -] 40 mg PO DAILY #30 tablet 06/16/18 Insulin (Levemir) [Levemir Vial] 15 units SQ HS units 06/16/18 Losartan Potassium [Cozaar -] 25 mg PO DAILY #30 tablet 06/16/18 Family Disease History - Family Disease History Family Disease History: Diabetes: Brother, Sister, Other: Father ( in his 50s ? etiology) Review of Systems - Review of Systems Constitutional: denies: Chills, Fever Eyes: denies: Blurred Vision, Double Vision HENT: denies: Difficult Swallowing, Ear Discharge, Nasal Congestion, Throat Pain Neck: denies: Pain on Movement, Stiffness Cardiovascular: denies: Chest Pain, Palpitations Respiratory: denies: Cough, SOB Gastrointestinal: denies: Abdominal Pain, Diarrhea, Nausea, Vomiting Genitourinary: denies: Burning, Frequency Musculoskeletal: denies: Back Pain, Muscle Pain Integumentary: denies: Bruising, Eczema, Rash Neurological: reports: Unsteady Gait. denies: Change in LOC, Change in Speech, Confusion, Dizziness, Incoordination, Numbness, Parasthesia, Syncope Endocrine: denies: Excessive Sweating, Intolerance to Cold Hematology/Lymphatic: denies: Easily Bruised, Excessive Bleeding Psychiatric: denies: Anxiety, Depression Physical Examination Vital Signs: Vital Signs Temperature 97.6 F 10/09/18 10:52 Pulse Rate 76 10/09/18 10:52 Respiratory Rate 16 10/09/18 10:52 Blood Pressure 156/80 10/09/18 22:26 O2 Sat by Pulse Oximetry (%) 96 10/09/18 10:52 Constitutional: Yes: No Distress, Calm Eyes: Yes: Conjunctiva Clear, EOM Intact HENT: Yes: Other (dry oral mucosa). No: Epistaxis, Pharyngeal Erythema, Rhinnorhea Neck: Yes: Trachea Midline. No: Lymphadenopathy Cardiovascular: Yes: Regular Rate and Rhythm, S1, S2 Respiratory: Yes: Regular, CTA Bilaterally. No: Rales Gastrointestinal: Yes: Normal Bowel Sounds, Soft. No: Tenderness ...Rectal Exam: Yes: Deferred Renal/: No: Bladder Distention, CVA Tenderness - Left, CVA Tenderness - Right Breast(s): Yes: Other (deferred) Musculoskeletal: No: Joint Stiffness, Joint Swelling Extremities: No: Cold, Cool Edema: LLE: 1+, RLE: 1+ Integumentary: No: Bruising, Jaundice Neurological: Yes: Alert, Oriented, Other (sensory and motor examinationin UE/ LE/ face is symmetric) Psychiatric: Yes: Alert Labs: CBC, BMP 10/09/18 13:00 10/09/18 13:00 Imaging - Results Chest X-ray: Report Reviewed Cat Scan: Report Reviewed Problem List - Problems (1) Impaired gait Code(s): R26.9 - UNSPECIFIED ABNORMALITIES OF GAIT AND MOBILITY (2) Unable to walk Code(s): R26.2 - DIFFICULTY IN WALKING, NOT ELSEWHERE CLASSIFIED (3) Hyponatremia Code(s): E87.1 - HYPO-OSMOLALITY AND HYPONATREMIA (4) Anemia Code(s): D64.9 - ANEMIA, UNSPECIFIED (5) CAD (coronary artery disease) Code(s): I25.10 - ATHSCL HEART DISEASE OF [place] CORONARY ARTERY W/O ANG PCTRS (6) CHF (congestive heart failure) Code(s): I50.9 - HEART FAILURE, UNSPECIFIED (7) Diabetes mellitus Code(s): E11.9 - TYPE 2 DIABETES MELLITUS WITHOUT COMPLICATIONS (8) CRF (chronic renal failure) Code(s): N18.9 - CHRONIC KIDNEY DISEASE, UNSPECIFIED Assessment/Plan Neuro consult Brain MRI Neuro checks AM labs
[2018-10-10 08:09] LABS: HEMATOCRIT 32.3 % (32.4-45.2); HEMOGLOBIN 10.5 GM/dL (10.7-15.3); MCH 26.3 pg (25.7-33.7); MCHC 32.6 g/dl (32.0-36.0); MEAN CELL VOLUME 80.6 fl (80-96); MEAN PLT VOLUME 7.7 fl (7.5-11.1); PLATELET COUNT 234 K/MM3 (134-434); RDW 17.6 % (11.6-15.6); WHITE BLOOD COUNT 8.6 K/mm3 (4.0-10.0)
[2018-10-10 08:39] LABS: ALBUMIN 3.3 g/dl (3.4-5.0); ALK PHOS 101 U/L (45-117); ANION GAP 7 MMOL/L (8-16); BILIRUBIN,TOTAL 0.4 mg/dL (0.2-1); BLOOD UREA NITROGEN 39 mg/dL (7-18); CALCIUM 8.1 mg/dL (8.5-10.1); CHLORIDE 98 mmol/L (98-107); CO2 35 mmol/L (21-32); CREATININE 2.1 mg/dL (0.55-1.3); GLUCOSE,RANDOM 73 mg/dL (74-106); POTASSIUM 3.4 mmol/L (3.5-5.1); SGOT/AST 17 U/L (15-37); SGPT/ALT 15 U/L (13-61); SODIUM 140 mmol/L (136-145); TOT PROT 6.8 g/dl (6.4-8.2)
[2018-10-10] MEDS: INSULIN SLIDING SCALE (NOVOLOG) 1 VIAL SQ SCH ×4 (09:46→22:39)
[2018-10-10] MEDS ORDERED: glipiZIDE 5 MG TABLET (FP) ONE ×2 (09:48→17:35)
[2018-10-10] MEDS ORDERED: TAMSULOSIN HCL 0.4 MG CAP ONE (09:49)
[2018-10-10] MEDS ORDERED: LEVOTHYROXINE NA 25 MCG TABLET (FP) ONE (09:49)
[2018-10-10] MEDS: LEVOTHYROXINE NA 50 MCG TABLET (FP) PO SCH (09:53)
[2018-10-10] MEDS: TAMSULOSIN HCL 0.4 MG CAP PO SCH (09:53)
[2018-10-10] MEDS: glipiZIDE 5 MG TABLET (FP) PO SCH ×3 (09:53→17:41)
[2018-10-10] MEDS: CARVEDILOL 6.25 MG TABLET (FP) PO SCH ×2 (12:15→22:38)
[2018-10-10] MEDS: GABAPENTIN 300 MG CAPSULE (FP) PO SCH ×2 (12:15→22:38)
[2018-10-10] MEDS: FUROSEMIDE 40 MG TABLET (FP) PO SCH (12:15)
[2018-10-10] MEDS: ASPIRIN COATED 81 MG TABLET.EC PO SCH (12:15)
[2018-10-10] MEDS: LOSARTAN POTASSIUM 25 MG TABLET PO SCH (12:16)
[2018-10-10] MEDS: ALLOPURINOL 100 MG TABLET (FP) PO SCH (12:16)
--- NOTE | 2018-10-10 12:19 | PN ---
Progress Note, Physician History of Present Illness: Pt w/o nfever, chills, new motor or sensory deficit. Pt w/o CP, SOB, palp,abd pain. Pt's dg is at bedside. - Current Medication List Current Medications: Active Medications Acetaminophen (Tylenol -) 500 mg PO Q6H PRN PRN Reason: PAIN LEVEL 1 - 3 Allopurinol (Zyloprim -) 100 mg PO DAILY [facility] Aspirin (Ecotrin -) 81 mg PO DAILY [facility] Atorvastatin Calcium (Lipitor -) 10 mg PO [facility] Last Admin: 10/09/18 22:27 Dose: 10 mg Carvedilol (Coreg -) 6.25 mg PO BID [facility] Last Admin: 10/09/18 22:27 Dose: 6.25 mg Furosemide (Lasix -) 40 mg PO DAILY [facility] Gabapentin (Neurontin -) 300 mg PO BID [facility] Last Admin: 10/09/18 22:27 Dose: 300 mg Glipizide (Glucotrol -) 5 mg PO TIDAC [facility] Last Admin: 10/10/18 09:53 Dose: 5 mg Insulin Aspart (Novolog Vial Sliding Scale -) 1 vial SQ [facility]; Protocol Last Admin: 10/10/18 09:46 Dose: Not Given Insulin Detemir (Levemir Vial) 15 units SQ [facility] Last Admin: 10/09/18 22:48 Dose: 15 units Levothyroxine Sodium (Synthroid -) 50 mcg PO DAILY@0700 [facility] Last Admin: 10/10/18 09:53 Dose: 50 mcg Losartan Potassium (Cozaar -) 25 mg PO DAILY [facility] Potassium Chloride (K-Dur -) 20 meq PO ONCE ONE Stop: 10/10/18 12:15 Tamsulosin HCl (Flomax -) 0.4 mg PO DAILY@0830 [facility] Last Admin: 10/10/18 09:53 Dose: 0.4 mg - Objective Vital Signs: Vital Signs Temperature 97.8 F 10/10/18 06:41 Pulse Rate 69 10/10/18 06:41 Respiratory Rate 16 10/09/18 10:52 Blood Pressure 126/49 L 10/10/18 06:41 O2 Sat by Pulse Oximetry (%) 88 L 10/10/18 06:41 Constitutional: Yes: No Distress, Calm Cardiovascular: Yes: Regular Rate and Rhythm, S1, S2 Respiratory: Yes: Regular, CTA Bilaterally. No: Rales Gastrointestinal: Yes: Normal Bowel Sounds, Soft, Abdomen, Obese. No: Tenderness Edema: No Neurological: Yes: Alert, Oriented Labs: CBC, BMP 10/10/18 07:08 10/10/18 07:08 Problem List - Problems (1) Impaired gait Code(s): R26.9 - UNSPECIFIED ABNORMALITIES OF GAIT AND MOBILITY (2) Unable to walk Code(s): R26.2 - DIFFICULTY IN WALKING, NOT ELSEWHERE CLASSIFIED (3) Hyponatremia Code(s): E87.1 - HYPO-OSMOLALITY AND HYPONATREMIA (4) Anemia Code(s): D64.9 - ANEMIA, UNSPECIFIED (5) CAD (coronary artery disease) Code(s): I25.10 - ATHSCL HEART DISEASE OF [place] CORONARY ARTERY W/O ANG PCTRS (6) CHF (congestive heart failure) Code(s): I50.9 - HEART FAILURE, UNSPECIFIED (7) Diabetes mellitus Code(s): E11.9 - TYPE 2 DIABETES MELLITUS WITHOUT COMPLICATIONS (8) CRF (chronic renal failure) Code(s): N18.9 - CHRONIC KIDNEY DISEASE, UNSPECIFIED Assessment/Plan Neuro consult is appreciated Brain MRI Neuro checks PT eval. AM labs
[2018-10-10] MEDS ORDERED: POTASSIUM CHLORIDE TABS 20 MEQ TABLET.ER (FP) PO ONE ×2 (12:30→12:32)
[2018-10-10] MEDS: ATORVASTATIN CA 10 MG TABLET (FP) PO SCH (22:38)
[2018-10-10] MEDS: INSULIN (LEVEMIR) 100 UNITS/ML UNITS SQ SCH (22:40)
[2018-10-11 05:58] LABS: MCH 26.9 pg (25.7-33.7); MCHC 33.3 g/dl (32.0-36.0); MEAN CELL VOLUME 80.7 fl (80-96); MEAN PLT VOLUME 7.7 fl (7.5-11.1); PLATELET COUNT 233 K/MM3 (134-434); RBC 4.08 M/mm3 (3.60-5.2); RDW 17.3 % (11.6-15.6)
[2018-10-11] MEDS: glipiZIDE 5 MG TABLET (FP) PO SCH ×3 (06:05→16:44)
[2018-10-11] MEDS: LEVOTHYROXINE NA 50 MCG TABLET (FP) PO SCH (06:05)
[2018-10-11] MEDS: INSULIN SLIDING SCALE (NOVOLOG) 1 VIAL SQ SCH ×4 (06:05→21:50)
[2018-10-11 06:12] LABS: ANION GAP 6 MMOL/L (8-16); BLOOD UREA NITROGEN 38 mg/dL (7-18); CALCIUM 8.3 mg/dL (8.5-10.1); CHLORIDE 102 mmol/L (98-107); CO2 33 mmol/L (21-32); CREATININE 1.9 mg/dL (0.55-1.3); GLUCOSE,RANDOM 91 mg/dL (74-106); POTASSIUM 3.8 mmol/L (3.5-5.1); SODIUM 140 mmol/L (136-145)
--- NOTE | 2018-10-11 09:26 | PN ---
Progress Note, Physician History of Present Illness: Pt w/o fever, chills, new motor or sensory deficit. Pt w/o CP, SOB, palp,abd pain. Pt states that her legs and arm are jumping, cannot walk. - Current Medication List Current Medications: Active Medications Acetaminophen (Tylenol -) 500 mg PO Q6H PRN PRN Reason: PAIN LEVEL 1 - 3 Allopurinol (Zyloprim -) 100 mg PO DAILY [facility] Last Admin: 10/10/18 12:16 Dose: 100 mg Aspirin (Ecotrin -) 81 mg PO DAILY [facility] Last Admin: 10/10/18 12:15 Dose: 81 mg Atorvastatin Calcium (Lipitor -) 10 mg PO [facility] Last Admin: 10/10/18 22:38 Dose: 10 mg Carvedilol (Coreg -) 6.25 mg PO BID [facility] Last Admin: 10/10/18 22:38 Dose: 6.25 mg Furosemide (Lasix -) 40 mg PO DAILY [facility] Last Admin: 10/10/18 12:15 Dose: 40 mg Gabapentin (Neurontin -) 300 mg PO BID [facility] Last Admin: 10/10/18 22:38 Dose: 300 mg Glipizide (Glucotrol -) 5 mg PO TIDAC [facility] Last Admin: 10/11/18 06:05 Dose: 5 mg Insulin Aspart (Novolog Vial Sliding Scale -) 1 vial SQ [facility]; Protocol Last Admin: 10/11/18 06:05 Dose: Not Given Insulin Detemir (Levemir Vial) 15 units SQ [facility] Last Admin: 10/10/18 22:40 Dose: Not Given Levothyroxine Sodium (Synthroid -) 50 mcg PO DAILY@0700 [facility] Last Admin: 10/11/18 06:05 Dose: 50 mcg Losartan Potassium (Cozaar -) 25 mg PO DAILY [facility] Last Admin: 10/10/18 12:16 Dose: 25 mg Tamsulosin HCl (Flomax -) 0.4 mg PO DAILY@0830 [facility] Last Admin: 10/10/18 09:53 Dose: 0.4 mg - Objective Vital Signs: Vital Signs Temperature 98.2 F 10/11/18 05:29 Pulse Rate 70 10/11/18 05:29 Respiratory Rate 20 10/11/18 05:29 Blood Pressure 150/70 10/11/18 05:29 O2 Sat by Pulse Oximetry (%) 95 10/10/18 22:49 Constitutional: Yes: No Distress, Calm Cardiovascular: Yes: Regular Rate and Rhythm, S1, S2 Respiratory: Yes: Regular, CTA Bilaterally. No: Rales Gastrointestinal: Yes: Normal Bowel Sounds, Soft. No: Tenderness Edema: No Neurological: Yes: Alert, Oriented Labs: CBC, BMP 10/11/18 05:30 10/11/18 05:30 - ....Imaging MRI: Report Reviewed Problem List - Problems (1) Impaired gait Code(s): R26.9 - UNSPECIFIED ABNORMALITIES OF GAIT AND MOBILITY (2) Unable to walk Code(s): R26.2 - DIFFICULTY IN WALKING, NOT ELSEWHERE CLASSIFIED (3) Hyponatremia Code(s): E87.1 - HYPO-OSMOLALITY AND HYPONATREMIA (4) Anemia Code(s): D64.9 - ANEMIA, UNSPECIFIED (5) CAD (coronary artery disease) Code(s): I25.10 - ATHSCL HEART DISEASE OF [place] CORONARY ARTERY W/O ANG PCTRS (6) CHF (congestive heart failure) Code(s): I50.9 - HEART FAILURE, UNSPECIFIED (7) Diabetes mellitus Code(s): E11.9 - TYPE 2 DIABETES MELLITUS WITHOUT COMPLICATIONS (8) CRF (chronic renal failure) Code(s): N18.9 - CHRONIC KIDNEY DISEASE, UNSPECIFIED (9) Cerebellar infarct Code(s): I63.9 - CEREBRAL INFARCTION, UNSPECIFIED Assessment/Plan Neuro consult is appreciated Brain MRI reported; to f/u with Neuro Neuro checks PT AM labs
[2018-10-11] MEDS: GABAPENTIN 300 MG CAPSULE (FP) PO SCH ×2 (09:33→21:49)
[2018-10-11] MEDS: ASPIRIN COATED 81 MG TABLET.EC PO SCH (09:33)
[2018-10-11] MEDS: ALLOPURINOL 100 MG TABLET (FP) PO SCH (09:33)
[2018-10-11] MEDS: FUROSEMIDE 40 MG TABLET (FP) PO SCH (09:33)
[2018-10-11] MEDS: TAMSULOSIN HCL 0.4 MG CAP PO SCH (09:33)
[2018-10-11] MEDS: LOSARTAN POTASSIUM 25 MG TABLET PO SCH (09:34)
[2018-10-11] MEDS: CARVEDILOL 6.25 MG TABLET (FP) PO SCH ×2 (09:34→21:49)
[2018-10-11] MEDS ORDERED: PT OWN MED DRAWER 7, Y5N ONE (11:23)
[2018-10-11] MEDS ORDERED: INSULIN SLIDING SCALE (NOVOLOG) 1 VIAL SQ ONE (11:43)
[2018-10-11 15:24] LABS: EPI CELLS 0.6 /HPF (0-5/HPF); URINE APPEARANCE TURBID; URINE BACTERIA 106.9 /hpf (NEGATIVE); URINE BILIRUBIN NEGATIVE (NEGATIVE); URINE CASTS 1 /lpf (0-8); URINE COLOR YELLOW; URINE GLUCOSE (UA) NEGATIVE (NEGATIVE); URINE KETONE NEGATIVE (NEGATIVE); URINE LEUK ESTERASE 3+ (NEGATIVE); URINE NITRITE NEGATIVE (NEGATIVE); URINE PROTEIN NEGATIVE (NEGATIVE); URINE RBC 6 /hpf (0-4); URINE UROBILINOGEN 0.2 mg/dL (0.2-1.0); URINE WBC 682 /hpf (0-5)
[2018-10-11] MEDS: ATORVASTATIN CA 10 MG TABLET (FP) PO SCH (21:49)
[2018-10-11] MEDS: INSULIN (LEVEMIR) 100 UNITS/ML UNITS SQ SCH (21:50)
[2018-10-12] MEDS: glipiZIDE 5 MG TABLET (FP) PO SCH ×3 (06:31→17:16)
[2018-10-12] MEDS: INSULIN SLIDING SCALE (NOVOLOG) 1 VIAL SQ SCH ×4 (06:31→21:33)
[2018-10-12] MEDS: LEVOTHYROXINE NA 50 MCG TABLET (FP) PO SCH (06:31)
[2018-10-12 07:40] LABS: ANION GAP 6 MMOL/L (8-16); BLOOD UREA NITROGEN 38 mg/dL (7-18); CALCIUM 8.7 mg/dL (8.5-10.1); CHLORIDE 101 mmol/L (98-107); CO2 35 mmol/L (21-32); CREATININE 1.6 mg/dL (0.55-1.3); GLUCOSE,RANDOM 127 mg/dL (74-106); POTASSIUM 3.7 mmol/L (3.5-5.1); SODIUM 141 mmol/L (136-145)
[2018-10-12] MEDS: TAMSULOSIN HCL 0.4 MG CAP PO SCH (08:18)
[2018-10-12] MEDS ORDERED: PT OWN MED DRAWER 7, Y5N ONE ×2 (10:28→12:21)
[2018-10-12] MEDS: GABAPENTIN 300 MG CAPSULE (FP) PO SCH ×2 (10:29→21:33)
[2018-10-12] MEDS: LOSARTAN POTASSIUM 25 MG TABLET PO SCH (10:29)
[2018-10-12] MEDS: CARVEDILOL 6.25 MG TABLET (FP) PO SCH ×2 (10:29→21:33)
[2018-10-12] MEDS: FUROSEMIDE 40 MG TABLET (FP) PO SCH (10:29)
[2018-10-12] MEDS: ALLOPURINOL 100 MG TABLET (FP) PO SCH (10:29)
[2018-10-12] MEDS: ASPIRIN COATED 81 MG TABLET.EC PO SCH (10:29)
[2018-10-12] MEDS ORDERED: INSULIN SLIDING SCALE (NOVOLOG) 1 VIAL SQ ONE (12:20)
--- NOTE | 2018-10-12 16:49 | PN ---
Progress Note, Physician Chief Complaint: MRI Cspine- mild spinal canal stenosis at C5/6/7 due to osteophyte. Exam- increased tone mildly in bot legs, no tremulousness, she is able to ambulate to bathroom with short steps/wide based gait. + bilat upgoing toes. Pts daughter informs me she has had urinary incont. for some time, at home is able to walk to bathroom but does not ambulate more than that. Appears ferarful/ hesitant to walk. She will benefit greatly from a rehab admission for gait training but wishes to go home Pt. appears to have a mild cervical myelopathy likely due to cspine canal stenosis. Recommend a neurosurgical consultation?? cervical myelopathy as out pt. will send B12v level. She will f/u in my office as outpt. Thank you, Sheldon Hooker MD - Current Medication List Current Medications: Active Medications Acetaminophen (Tylenol -) 500 mg PO Q6H PRN PRN Reason: PAIN LEVEL 1 - 3 Allopurinol (Zyloprim -) 100 mg PO DAILY [facility] Last Admin: 10/12/18 10:29 Dose: 100 mg Aspirin (Ecotrin -) 81 mg PO DAILY [facility] Last Admin: 10/12/18 10:29 Dose: 81 mg Atorvastatin Calcium (Lipitor -) 10 mg PO HS [facility] Last Admin: 10/11/18 21:49 Dose: 10 mg Carvedilol (Coreg -) 6.25 mg PO BID [facility] Last Admin: 10/12/18 10:29 Dose: 6.25 mg Furosemide (Lasix -) 40 mg PO DAILY [facility] Last Admin: 10/12/18 10:29 Dose: 40 mg Gabapentin (Neurontin -) 300 mg PO BID [facility] Last Admin: 10/12/18 10:29 Dose: 300 mg Glipizide (Glucotrol -) 5 mg PO TIDAC [facility] Last Admin: 10/12/18 12:23 Dose: 5 mg Insulin Aspart (Novolog Vial Sliding Scale -) 1 vial SQ [facility]; Protocol Last Admin: 10/12/18 12:22 Dose: 4 units Insulin Detemir (Levemir Vial) 15 units SQ [facility] Last Admin: 10/11/18 21:50 Dose: 15 units Levothyroxine Sodium (Synthroid -) 50 mcg PO DAILY@0700 [facility] Last Admin: 10/12/18 06:31 Dose: 50 mcg Losartan Potassium (Cozaar -) 25 mg PO DAILY [facility] Last Admin: 10/12/18 10:29 Dose: 25 mg Tamsulosin HCl (Flomax -) 0.4 mg PO DAILY@0830 [facility] Last Admin: 10/12/18 08:18 Dose: 0.4 mg - Objective Vital Signs: Vital Signs Temperature 98.0 F 10/12/18 14:05 Pulse Rate 56 L 10/12/18 14:05 Respiratory Rate 20 10/12/18 14:05 Blood Pressure 128/55 L 10/12/18 14:05 O2 Sat by Pulse Oximetry (%) 95 10/12/18 09:00 Labs: CBC, BMP 10/11/18 05:30 10/12/18 06:00
--- NOTE | 2018-10-12 20:10 | PN ---
Progress Note, Physician History of Present Illness: Pt w/o fever, chills, new motor or sensory deficit. Pt w/o CP, SOB, palp,abd pain. Pt states that her legs and arm are still jumping. - Current Medication List Current Medications: Active Medications Acetaminophen (Tylenol -) 500 mg PO Q6H PRN PRN Reason: PAIN LEVEL 1 - 3 Allopurinol (Zyloprim -) 100 mg PO DAILY [facility] Last Admin: 10/12/18 10:29 Dose: 100 mg Aspirin (Ecotrin -) 81 mg PO DAILY [facility] Last Admin: 10/12/18 10:29 Dose: 81 mg Atorvastatin Calcium (Lipitor -) 10 mg PO [facility] Last Admin: 10/11/18 21:49 Dose: 10 mg Carvedilol (Coreg -) 6.25 mg PO BID [facility] Last Admin: 10/12/18 10:29 Dose: 6.25 mg Furosemide (Lasix -) 40 mg PO DAILY [facility] Last Admin: 10/12/18 10:29 Dose: 40 mg Gabapentin (Neurontin -) 300 mg PO BID [facility] Last Admin: 10/12/18 10:29 Dose: 300 mg Glipizide (Glucotrol -) 5 mg PO TIDAC [facility] Last Admin: 10/12/18 17:16 Dose: 5 mg Insulin Aspart (Novolog Vial Sliding Scale -) 1 vial SQ [facility]; Protocol Last Admin: 10/12/18 17:16 Dose: 2 units Insulin Detemir (Levemir Vial) 15 units SQ [facility] Last Admin: 10/11/18 21:50 Dose: 15 units Levothyroxine Sodium (Synthroid -) 50 mcg PO DAILY@0700 [facility] Last Admin: 10/12/18 06:31 Dose: 50 mcg Losartan Potassium (Cozaar -) 25 mg PO DAILY [facility] Last Admin: 10/12/18 10:29 Dose: 25 mg Tamsulosin HCl (Flomax -) 0.4 mg PO DAILY@0830 [facility] Last Admin: 10/12/18 08:18 Dose: 0.4 mg - Objective Vital Signs: Vital Signs Temperature 98.2 F 10/12/18 17:10 Pulse Rate 58 L 10/12/18 17:10 Respiratory Rate 18 10/12/18 17:10 Blood Pressure 165/65 10/12/18 17:10 O2 Sat by Pulse Oximetry (%) 95 10/12/18 09:00 Constitutional: Yes: No Distress, Calm Cardiovascular: Yes: Regular Rate and Rhythm, S1, S2 Respiratory: Yes: Regular, CTA Bilaterally Gastrointestinal: Yes: Normal Bowel Sounds, Soft. No: Tenderness Edema: No Neurological: Yes: Alert, Oriented Labs: CBC, BMP 10/11/18 05:30 10/12/18 06:00 Problem List - Problems (1) Impaired gait Code(s): R26.9 - UNSPECIFIED ABNORMALITIES OF GAIT AND MOBILITY (2) Unable to walk Code(s): R26.2 - DIFFICULTY IN WALKING, NOT ELSEWHERE CLASSIFIED (3) Hyponatremia Code(s): E87.1 - HYPO-OSMOLALITY AND HYPONATREMIA (4) Anemia Code(s): D64.9 - ANEMIA, UNSPECIFIED (5) CAD (coronary artery disease) Code(s): I25.10 - ATHSCL HEART DISEASE OF [place] CORONARY ARTERY W/O ANG PCTRS (6) CHF (congestive heart failure) Code(s): I50.9 - HEART FAILURE, UNSPECIFIED (7) Diabetes mellitus Code(s): E11.9 - TYPE 2 DIABETES MELLITUS WITHOUT COMPLICATIONS (8) CRF (chronic renal failure) Code(s): N18.9 - CHRONIC KIDNEY DISEASE, UNSPECIFIED (9) Cerebellar infarct Code(s): I63.9 - CEREBRAL INFARCTION, UNSPECIFIED Assessment/Plan Neuro consult is appreciated; pt was cleared this afternoon for DC, recommended Rehab; pt wants to go home Brain MRI reported. PT eval is appeciated. To meet with pt and pt's family tomorrow and talk about DC (Rehab vs Home); pt is insisting on going home; PT note and Neuro suggest that [t would benefit from inpatient rehab.
[2018-10-12] MEDS: ATORVASTATIN CA 10 MG TABLET (FP) PO SCH (21:33)
[2018-10-12] MEDS: INSULIN (LEVEMIR) 100 UNITS/ML UNITS SQ SCH (21:34)
[2018-10-12 23:42] VITALS: TEMP 97.9
[2018-10-13] MEDS: INSULIN SLIDING SCALE (NOVOLOG) 1 VIAL SQ SCH ×2 (05:59→11:22)
[2018-10-13] MEDS: LEVOTHYROXINE NA 50 MCG TABLET (FP) PO SCH (06:28)
[2018-10-13] MEDS: glipiZIDE 5 MG TABLET (FP) PO SCH ×2 (06:31→12:46)
[2018-10-13] MEDS: GABAPENTIN 300 MG CAPSULE (FP) PO SCH (09:54)
[2018-10-13] MEDS: LOSARTAN POTASSIUM 25 MG TABLET PO SCH (09:54)
[2018-10-13] MEDS: ASPIRIN COATED 81 MG TABLET.EC PO SCH (09:54)
[2018-10-13] MEDS: CARVEDILOL 6.25 MG TABLET (FP) PO SCH (09:54)
[2018-10-13] MEDS: TAMSULOSIN HCL 0.4 MG CAP PO SCH (09:54)
[2018-10-13] MEDS: FUROSEMIDE 40 MG TABLET (FP) PO SCH (09:54)
[2018-10-13] MEDS: ALLOPURINOL 100 MG TABLET (FP) PO SCH (09:54)
[2018-10-13 12:05] VITALS: BP 121/54; PULSE 52
--- NOTE | 2018-10-13 12:10 | DS ---
Physical Examination Vital Signs: Vital Signs Temperature 97.9 F 10/13/18 06:00 Pulse Rate 62 10/13/18 06:00 Respiratory Rate 20 10/13/18 06:00 Blood Pressure 138/62 10/13/18 06:00 O2 Sat by Pulse Oximetry (%) 94 L 10/12/18 21:00 Findings/Remarks: Pt w/o CP, palpitations, SOB, dizziness, abd pain, dysuria, frequency. Pt wants to go home, not to rehab. I spoke with pt and pt's daughter about Neurologist recommendation regarding going to Rehab, PT findings (difficulty walking even with 2 persons assist) that would also recommend Rehab; I reviewed with pt benefits of Rehab; pt and her daughter are refusing Rehab; I reviewed with both risks associated with fall , including trauma/ bone fracture/ head trauma. Both understand the risks but are refusing Rehab; pt and daughter (and pt's , after daughter called him and talk with him) are refusing home PT, even though I reviewed the benefit with both. Pt's nurse is aware of above disscution with pt and family. nTo DC pt home. Constitutional: Yes: No Distress, Calm Cardiovascular: Yes: Regular Rate and Rhythm, S1, S2 Respiratory: Yes: Regular, CTA Bilaterally. No: Rales Gastrointestinal: Yes: Normal Bowel Sounds, Soft. No: Tenderness Edema: No Neurological: Yes: Alert, Oriented Labs: CBC, BMP 10/11/18 05:30 10/12/18 06:00 Discharge Summary Reason For Visit: ATAXIA Current Active Problems Anemia (Acute) Ataxia (Acute) CAD (coronary artery disease) (Acute) CHF (congestive heart failure) (Acute) CRF (chronic renal failure) (Acute) Cerebellar infarct (Acute) Diabetes mellitus (Acute) Hyponatremia (Acute) Impaired gait (Acute) Unable to walk (Acute) Procedures: Principal: Head CT scan Hospital Course: Pt came to ER with gait impairment, "jumping in the legs". Pt was seen by Neuro (Dr. Hooker), had negative for acute events head CT scan, cleared for DC. Pt was seen by PT, noticed to need assistance with walking. Pt and daughter (and pt's , per his daughter) are refusing pt to go to Rehab, all are aware for risks ( including fall, possibility of bone fracture or head trauma); they also are refusing home PT (states that in the past pt had no benefit from it). Time spent for coordinating pt's DC: over 50 minutes. Condition: Guarded - Instructions Diet, Activity, Other Instructions: ADA, Low salt, Low Cholesterol Disposition: HOME - Home Medications Comprehensive Discharge Medication List: Ambulatory Orders Aspirin Coated [Ecotrin -] 81 mg PO DAILY #30 tablet.ec 07/09/16 Levothyroxine [Synthroid -] 50 mcg PO DAILY #90 tablet 07/09/16 Allopurinol [Zyloprim -] 100 mg PO DAILY 10/02/17 Atorvastatin Ca [Lipitor] 10 mg PO HS 10/02/17 Gabapentin [Neurontin -] 300 mg PO BID 10/02/17 Glipizide [Glucotrol -] 5 mg PO TID 10/02/17 Acetaminophen [Tylenol .Extra-Strength -] 500 mg PO Q6H PRN tablet 11/12/17 Tamsulosin HCl [Flomax -] 0.4 mg PO DAILY@0830 #90 cap.er.24h 11/12/17 Insulin Glargine,Hum.rec.anlog [Lantus Solostar] 18 unit SQ HS 02/15/18 Carvedilol [Coreg -] 6.25 mg PO BID #60 tablet 06/16/18 Furosemide [Lasix -] 40 mg PO DAILY #30 tablet 06/16/18 Insulin (Levemir) [Levemir Vial] 15 units SQ HS units 06/16/18 Losartan Potassium [Cozaar -] 25 mg PO DAILY #30 tablet 06/16/18
== END 2018-10-13 14:14 | disposition home or self-care (01) | DRG 552 ==
LOC: JER 10:44 → JERBED 16:38 → J4S 10-10 20:39
PROVIDERS: ADMIT Specialist; ATTEND Specialist
DX: M48.02 Spinal stenosis, cervical region (principal); G99.2 Myelopathy in diseases classified elsewhere; I13.0 Hypertensive heart and chronic kidney disease with heart failure and stage 1 through stage 4 chronic kidney disease, or unspecified chronic kidney disease; E87.1 Hypo-osmolality and hyponatremia; I25.10 Atherosclerotic heart disease of native coronary artery without angina pectoris; E03.9 Hypothyroidism, unspecified; K21.9 Gastro-esophageal reflux disease without esophagitis; E11.22 Type 2 diabetes mellitus with diabetic chronic kidney disease; N18.9 Chronic kidney disease, unspecified; I50.9 Heart failure, unspecified; Z79.4 Long term (current) use of insulin; R27.0 Ataxia, unspecified; M25.78 Osteophyte, vertebrae
CPT/HCPCS: 36415; 70450-TC; 70551-TC; 71046-TC-FY; 72141-TC; 80048; 80053; 81003; 82550; 82607; 82962; 83690; 83880; 84484; 85025; 85027; 87086; 87186; 93005; 93010; 97116-GP; 97161-GP; 99285-25

== ENCOUNTER 2018-11-26 12:32 | Inpatient (IN) | payer OTHER ==
[2018-11-26] MEDS ORDERED: morphine CARPU-JECT 2 MG/1 ML DISP.SYRIN IM ONE (14:46)
[2018-11-26] MEDS ORDERED: METHOCARBAMOL 500 MG TABLET PO ONE (14:46)
[2018-11-26] MEDS ORDERED: MORPHINE SULFATE 2 MG/ML VIAL ONE (14:55)
[2018-11-26] MEDS ORDERED: METHOCARBAMOL 500 MG TABLET ONE (14:55)
[2018-11-26 15:14] LABS: PH,URINE 6.5 (5.0-8.0); URINE APPEARANCE CLEAR; URINE BILIRUBIN NEGATIVE (NEGATIVE); URINE COLOR YELLOW; URINE GLUCOSE (UA) NEGATIVE (NEGATIVE); URINE KETONE NEGATIVE (NEGATIVE); URINE LEUK ESTERASE NEGATIVE (NEGATIVE); URINE NITRITE NEGATIVE (NEGATIVE); URINE PROTEIN NEGATIVE (NEGATIVE); URINE UROBILINOGEN 0.2 mg/dL (0.2-1.0)
--- NOTE | 2018-11-26 15:30 | PDOC ---
History of Present Illness - General Chief Complaint: Back Pain Stated Complaint: Back Pain Time Seen by Provider: 11/26/18 14:12 History Source: Patient Exam Limitations: Clinical Condition - History of Present Illness Initial Comments: 11/26/18 15:22 Patient with h/o spinal stenosis, herniated disc, HTN, HPL sent in by PCP Dr. Sunshine with complains of worsening pain to b/l upper and lower extremities which has not been improving with Tylenol. Patient is being followed-up by adrian Hutchinson and was told she needed surgery for spinal stenosis but she didn't want to go through surgery at that time but symptoms has been worsening with weakness in b/l legs.Denies fever, incontinence. Patient request johnston has she hasn't been able to void in the last 5 hrs and feels she needs to void but can't Timing/Duration: getting worse Past History - Past Medical History Allergies/Adverse Reactions: Allergies Allergy/AdvReac Type Severity Reaction Status Date / Time No Known Allergies Allergy Verified 11/26/18 12:54 Home Medications: Ambulatory Orders Aspirin Coated [Ecotrin -] 81 mg PO DAILY #30 tablet.ec 07/09/16 Levothyroxine [Synthroid -] 50 mcg PO DAILY #90 tablet 07/09/16 Allopurinol [Zyloprim -] 100 mg PO DAILY 10/02/17 Atorvastatin Ca [Lipitor] 20 mg PO HS 10/02/17 Gabapentin [Neurontin -] 300 mg PO DAILY 10/02/17 Glipizide [Glucotrol -] 5 mg PO TID 10/02/17 Acetaminophen [Tylenol .Extra-Strength -] 500 mg PO Q6H PRN tablet 11/12/17 Tamsulosin HCl [Flomax -] 0.4 mg PO DAILY@0830 #90 cap.er.24h 11/12/17 Insulin Glargine,Hum.rec.anlog [Lantus Solostar] 22 unit SQ HS 02/15/18 Bisacodyl [Dulcolax -] 5 mg PO ASDIR 11/26/18 Carvedilol [Coreg -] 12.5 mg PO BID 11/26/18 Cinacalcet HCl [Sensipar] 30 mg PO DAILY 11/26/18 Hydralazine HCl 50 mg PO TID 11/26/18 Insulin Lispro [Humalog] 0 unit SQ ASDIR 11/26/18 Isosorbide Mononitrate [Imdur -] 90 mg PO DAILY 11/26/18 Latanoprost/Pf [Latanoprost 0.005% Eye Drop] 1 drp OP DAILY 11/26/18 Metolazone 5 mg PO DAILY 11/26/18 Polyethylene Glycol 3350 [Miralax (For Daily Use) -] 17 gm PO DAILY 11/26/18 Potassium Chloride 20 meq PO DAILY 11/26/18 Ranitidine HCl [Zantac] 150 mg PO BID 11/26/18 Torsemide 100 mg PO DAILY 11/26/18 Anemia: No Asthma: No Cancer: No COPD: No CHF: Yes Diabetes: Yes GI Disorders: Yes (GERD.) HTN: Yes Hypercholesterolemia: Yes Thyroid Disease: Yes (HYPO.) - Surgical History Abdominal Surgery: Yes - Immunization History Immunization Up to Date: Yes - Suicide/Smoking/Psychosocial Hx Smoking Status: No Smoking History: Never smoked Have you smoked in the past 12 months: No Number of Cigarettes Smoked Daily: 0 Information on smoking cessation initiated: No Hx Alcohol Use: No Drug/Substance Use Hx: No Substance Use Type: None Hx Substance Use Treatment: No Review of Systems - Review of Systems Able to Perform ROS?: Yes Is the patient limited Guinean proficient: No Constitutional: No: Fever, Malaise, Weakness HEENTM: No: Symptoms Reported Respiratory: No: Symptoms reported Cardiac (ROS): No: Symptoms Reported ABD/GI: No: Symptoms Reported, Nausea, Vomiting Musculoskeletal: Yes: Symptoms Reported, See HPI, Back Pain, Muscle Pain ( diffused upper and lower extremities pain) Neurological: Yes: Symptoms reported, See HPI, Numbness, Paresthesia, Weakness ( b/l lower extremities) All Other Systems: Reviewed and Negative *Physical Exam - Vital Signs Last Vital Signs Temp Pulse Resp BP Pulse Ox 96.7 F L 63 16 138/90 95 11/26/18 12:35 11/26/18 12:35 11/26/18 12:35 11/26/18 12:35 11/26/18 12:35 - Physical Exam General Appearance: Yes: Nourished, Appropriately Dressed, Mild Distress HEENT: positive: Normal ENT Inspection Neck: positive: Supple Respiratory/Chest: positive: Lungs Clear, Normal Breath Sounds. negative: Respiratory Distress, Accessory Muscle Use Cardiovascular: positive: Regular Rhythm, Regular Rate. negative: Murmur Musculoskeletal: positive: Normal Inspection, Other (diffused b/l upper and lower extremities subjective pain) Extremity: positive: Normal Capillary Refill, Normal Inspection, Normal Range of Motion Neurologic: positive: Fully Oriented, Normal Response, Motor Strength 10/21 ED Treatment Course - LABORATORY CBC & Chemistry Diagram: 11/26/18 15:46 11/26/18 15:50 - ADDITIONAL ORDERS Additional order review: Laboratory Results 11/26/18 14:48 Urine Color Yellow Urine Appearance Clear Urine pH 6.5 Ur Specific [place] 1.010 Urine Protein Negative Urine Glucose (UA) Negative Urine Ketones Negative Urine Blood Negative Urine Nitrite Negative Urine Bilirubin Negative Urine Urobilinogen 0.2 Ur Leukocyte Esterase Negative - Medications Given in the ED: ED Medications Discontinued Medications Generic Name Dose Route Start Last Admin Trade Name Freq PRN Reason Stop Dose Admin Methocarbamol 500 mg 11/26/18 14:46 11/26/18 14:59 Robaxin - PO 11/26/18 14:47 500 mg ONCE ONE Administration Morphine Sulfate 2 mg 11/26/18 14:46 11/26/18 14:59 Morphine Injection - IM 11/26/18 14:47 2 mg ONCE ONE Administration Medical Decision Making - Medical Decision Making 11/26/18 15:26 Patient with h/o spinal stenosis, cervical spondylosis.herniated disc, HTN, HPL sent in by PCP Dr. Sunshine with complains of worsening pain to b/l upper and lower extremities which has not been improving with Tylenol. Patient is being followed-up by [facility] and was told she needed surgery for spinal stenosis but she didn't want to go through surgery at that time but symptoms has been worsening with weakness in b/l legs.Denies fever, incontinence. Patient request johnston has she hasn't been able to void in the last 5 hrs and feels she needs to void but can't Exam significant for diffused subjective B/L upper and lower extremity pain otherwise normal exam. Call made to Dr. hutchinson 11/26/18 15:[address] Hutchinson who request to repeat MRI of cervical spine to evaluate for worsening symptoms and do preop labs for possible OR tomorrow. Patient and daughter agrees for patient to be taken to OR tomorrow for spondylosis 11/26/18 17:[address] Sunshine about admission who agrees for patient to be admitted under him and will have cardiology see Patient as patient is not clear for surgery before patient can be taken to OR. Patient labs shows marked elevated BU /CR with hypokalemia. Patient admitted to Telemetry as per Dr. Sunshine due to regular medicine floor not wanted to accept patient due to hypokalemia and possible renal failure *DC/Admit/Observation/Transfer Diagnosis at time of Disposition: Impaired gait, Cervical spondylosis with myelopathy and radiculopathy - Discharge Dispostion Condition at time of disposition: Stable Decision to Admit order: Yes - Referrals - Patient Instructions - Post Discharge Activity
[2018-11-26 16:09] LABS: BASO % 0.5 % (0-2.0); EOS % 13.5 % (0-4.5); HEMATOCRIT 32.5 % (32.4-45.2); HEMOGLOBIN 10.9 GM/dL (10.7-15.3); LYMPH % 16.9 % (8-40); MCH 26.3 pg (25.7-33.7); MCHC 33.5 g/dl (32.0-36.0); MEAN CELL VOLUME 78.5 fl (80-96); MEAN PLT VOLUME 7.8 fl (7.5-11.1); NEUT % 58.1 % (42.8-82.8); PLATELET COUNT 239 K/MM3 (134-434); RBC 4.14 M/mm3 (3.60-5.2); RDW 18.3 % (11.6-15.6); WHITE BLOOD COUNT 8.7 K/mm3 (4.0-10.0)
[2018-11-26 16:43] LABS: INR 0.97 (0.83-1.09); PROTHROMBIN TIME (PATIENT) 11.4 SEC (9.7-13.0)
[2018-11-26 16:46] LABS: ACTIVATED PTT 31.2 SECONDS (25.2-36.5)
[2018-11-26 16:55] LABS: ALBUMIN 3.6 g/dl (3.4-5.0); BILIRUBIN,TOTAL 0.6 mg/dL (0.2-1); CALCIUM 9.7 mg/dL (8.5-10.1); CREATININE 3.1 mg/dL (0.55-1.3); POTASSIUM 3.4 mmol/L (3.5-5.1); TOT PROT 7.2 g/dl (6.4-8.2)
[2018-11-26 16:57] LABS: BLOOD UREA NITROGEN 117.2 mg/dL (7-18)
[2018-11-26] MEDS: ACETAMINOPHEN 500 MG TABLET (FP) PO PRN (22:17)
[2018-11-26] MEDS: ATORVASTATIN CA 20 MG TABLET (FP) PO SCH (22:18)
[2018-11-26] MEDS: INSULIN (LEVEMIR) 100 UNITS/ML UNITS SQ SCH (22:18)
[2018-11-26] MEDS: hydrALAZINE HCL 50 MG TABLET (FP) PO SCH (22:18)
[2018-11-26] MEDS: CARVEDILOL 6.25 MG TABLET (FP) PO SCH (22:18)
[2018-11-26] MEDS: RANITIDINE HCL 150 MG TABLET (FP) PO SCH (22:18)
[2018-11-26] MEDS ORDERED: SODIUM CHLORIDE 500 ML IV SCH (23:30)
--- NOTE | 2018-11-26 23:32 | HP ---
Admitting History and Physical - Primary Care Physician PCP: Jam Sunshine - Admission Chief Complaint: Weakness in both legs and arms. Neck pain History of Present Illness: Pt with weakness in both arms and legs, worse lately; pt saw Neuro ( Dr. Hooker ) and NeuroSx (Dr Pappas); pt it was offered SX but pt was not sure about it. Pt's came to my office with her and daughter, barely was able to stand with the help of two; pt was referred to ER for further evaluation. History Source: Patient, Family Member Limitations to Obtaining History: No Limitations - Past Medical History Cardiovascular: Yes: CAD (non-obstructive), CHF, HTN, Hyperlipdemia, Other ( Angina pectoris) Gastrointestinal: Yes: Constipation, Diverticulosis, GERD, Other (colon polyps: sessil serrated adenomas x 2 2014) Renal/: Yes: Renal Inusuff ...: No Musculoskeletal: Yes: Other (Spinal stenosis) Endocrine: Yes: Diabetes Mellitus (Insulin dependent), Hypothyroidism - Past Surgical History Past Surgical History: Yes: Hysterectomy (BRAX[place], BSO in 1981), Oopherectomy - Advance Directives Advance Directives: Yes: Health Care Proxy - Smoking History Smoking history: Never smoked Have you smoked in the past 12 months: No Aproximately how many cigarettes per day: 0 - Alcohol/Substance Use Hx Alcohol Use: No History of Substance Use: reports: None - Social History ADL: Independent History of Recent Travel: Yes (WENT TO [place] TWO YEARS AGO) Home Medications - Allergies Allergies/Adverse Reactions: Allergies Allergy/AdvReac Type Severity Reaction Status Date / Time No Known Allergies Allergy Verified 11/26/18 12:54 - Home Medications Home Medications: Ambulatory Orders Aspirin Coated [Ecotrin -] 81 mg PO DAILY #30 tablet.ec 07/09/16 Levothyroxine [Synthroid -] 50 mcg PO DAILY #90 tablet 07/09/16 Allopurinol [Zyloprim -] 100 mg PO DAILY 10/02/17 Atorvastatin Ca [Lipitor] 20 mg PO HS 10/02/17 Gabapentin [Neurontin -] 300 mg PO DAILY 10/02/17 Glipizide [Glucotrol -] 5 mg PO TID 10/02/17 Acetaminophen [Tylenol .Extra-Strength -] 500 mg PO Q6H PRN tablet 11/12/17 Tamsulosin HCl [Flomax -] 0.4 mg PO DAILY@0830 #90 cap.er.24h 11/12/17 Insulin Glargine,Hum.rec.anlog [Lantus Solostar] 22 unit SQ HS 02/15/18 Bisacodyl [Dulcolax -] 5 mg PO ASDIR 11/26/18 Carvedilol [Coreg -] 12.5 mg PO BID 11/26/18 Cinacalcet HCl [Sensipar] 30 mg PO DAILY 11/26/18 Hydralazine HCl 50 mg PO TID 11/26/18 Insulin Lispro [Humalog] 0 unit SQ ASDIR 11/26/18 Isosorbide Mononitrate [Imdur -] 90 mg PO DAILY 11/26/18 Latanoprost/Pf [Latanoprost 0.005% Eye Drop] 1 drp OP DAILY 11/26/18 Metolazone 5 mg PO DAILY 11/26/18 Polyethylene Glycol 3350 [Miralax (For Daily Use) -] 17 gm PO DAILY 11/26/18 Potassium Chloride 20 meq PO DAILY 11/26/18 Ranitidine HCl [Zantac] 150 mg PO BID 11/26/18 Torsemide 100 mg PO DAILY 11/26/18 Family Disease History - Family Disease History Family Disease History: Diabetes: Brother, Sister, Other: Father ( in his 50s ? etiology) Review of Systems - Review of Systems Constitutional: denies: Chills, Fever Eyes: denies: Blurred Vision, Double Vision HENT: denies: Ear Discharge, Nasal Congestion, Throat Pain Neck: reports: Pain on Movement. denies: Stiffness Cardiovascular: denies: Chest Pain, Edema (since Torsemide was increased)), Palpitations Respiratory: denies: Cough, SOB, Wheezing Gastrointestinal: denies: Abdominal Pain, Diarrhea, Nausea, Vomiting Genitourinary: denies: Burning, Discharge Musculoskeletal: reports: Back Pain, Muscle Weakness. denies: Joint Swelling Integumentary: denies: Bruising, Erythema Neurological: denies: Change in LOC, Change in Speech, Numbness Endocrine: denies: Excessive Sweating, Intolerance to Cold Hematology/Lymphatic: denies: Easily Bruised, Excessive Bleeding Psychiatric: denies: Anxiety, Depression Physical Examination Vital Signs: Vital Signs Temperature 98.2 F 11/26/18 21:39 Pulse Rate 72 11/26/18 21:39 Respiratory Rate 18 11/26/18 21:39 Blood Pressure 115/52 L 11/26/18 21:39 O2 Sat by Pulse Oximetry (%) 95 11/26/18 18:57 Constitutional: Yes: No Distress, Calm Eyes: Yes: Conjunctiva Clear, EOM Intact HENT: Yes: Normocephalic. No: Epistaxis, Rhinnorhea Neck: Yes: Trachea Midline. No: Lymphadenopathy Cardiovascular: Yes: Regular Rate and Rhythm, S1, S2 Respiratory: Yes: Regular, CTA Bilaterally. No: Rhonchi Gastrointestinal: Yes: Normal Bowel Sounds, Soft. No: Splenomegaly, Tenderness ...Rectal Exam: Yes: Deferred Renal/: No: CVA Tenderness - Left, CVA Tenderness - Right Breast(s): Yes: Other (deferred) Musculoskeletal: No: Joint Stiffness, Joint Swelling Edema: LLE: Trace, RLE: Trace Integumentary: No: Bruising, Jaundice Neurological: Yes: Alert (motor in UE and LE is decreased (4/5)), Oriented. No : Confusion Psychiatric: Yes: Alert, Oriented Labs: CBC, BMP 11/26/18 15:46 11/26/18 15:50 Imaging - Results Chest X-ray: Report Reviewed Problem List - Problems (1) Cervical spondylosis with myelopathy and radiculopathy Code(s): M47.12 - OTHER SPONDYLOSIS WITH MYELOPATHY, CERVICAL REGION; M47.22 - OTHER SPONDYLOSIS WITH RADICULOPATHY, CERVICAL REGION (2) Hypokalemia Code(s): E87.6 - HYPOKALEMIA (3) Hyponatremia Code(s): E87.1 - HYPO-OSMOLALITY AND HYPONATREMIA (4) Impaired gait Code(s): R26.9 - UNSPECIFIED ABNORMALITIES OF GAIT AND MOBILITY (5) ANDRÉS (acute kidney injury) Code(s): N17.9 - ACUTE KIDNEY FAILURE, UNSPECIFIED (6) CAD (coronary artery disease) Code(s): I25.10 - ATHSCL HEART DISEASE OF [place] CORONARY ARTERY W/O ANG PCTRS Qualifiers: Coronary Disease-Associated Artery/Lesion type: [place] artery [place] vs. transplanted heart: [place] heart Associated angina: without angina Qualified Code(s): I25.10 - Atherosclerotic heart disease of [place] coronary artery without angina pectoris (7) Diabetes mellitus Code(s): E11.9 - TYPE 2 DIABETES MELLITUS WITHOUT COMPLICATIONS (8) Hyponatremia Code(s): E87.1 - HYPO-OSMOLALITY AND HYPONATREMIA (9) Acute renal failure Code(s): N17.9 - ACUTE KIDNEY FAILURE, UNSPECIFIED Qualifiers: Acute renal failure type: unspecified Qualified Code(s): N17.9 - Acute kidney failure, unspecified (10) CHF exacerbation Code(s): I50.9 - HEART FAILURE, UNSPECIFIED Assessment/Plan Admit to monitor bed. AM labs Neuro Sx, Renal, Cardio consults IVF hydration- slow.
[2018-11-26] MEDS: MORPHINE SULFATE 2 MG/ML VIAL IVPUSH PRN (23:47)
[2018-11-26] MEDS: POLYETHYLENE GLYCOL 3350 119 GM BTL PO SCH (23:56)
[2018-11-27] MEDS: LEVOTHYROXINE NA 50 MCG TABLET (FP) PO SCH (06:34)
[2018-11-27] MEDS: hydrALAZINE HCL 50 MG TABLET (FP) PO SCH ×3 (06:34→21:43)
[2018-11-27] MEDS: glipiZIDE 5 MG TABLET (FP) PO SCH ×3 (06:34→16:54)
[2018-11-27] MEDS: POLYETHYLENE GLYCOL 3350 119 GM BTL PO SCH ×4 (06:34→23:01)
[2018-11-27] MEDS: INSULIN SLIDING SCALE (NOVOLOG) 1 VIAL SQ SCH ×4 (06:35→21:44)
[2018-11-27] MEDS ORDERED: PROPOFOL 20 ML ONE (07:27)
[2018-11-27] MEDS ORDERED: SUCCINYLCHOLINE CHLORIDE 200 MG/10 ML SYRINGE ONE (07:27)
[2018-11-27] MEDS ORDERED: ROCURONIUM BROMIDE 50 MG/5 ML VIAL ONE (07:28)
[2018-11-27] MEDS ORDERED: LIDOCAINE HCL/PF 2% SDV 5ML VIAL ONE (07:29)
[2018-11-27] MEDS ORDERED: ceFAZolin SODIUM 1 GM VIAL ONE (07:29)
[2018-11-27] MEDS ORDERED: SODIUM CHLORIDE 0.9% P/F 10 ML VIAL IJ ONE (07:29)
[2018-11-27] MEDS ORDERED: ONDANSETRON 4 MG/2 ML VIAL ONE (07:29)
[2018-11-27] MEDS ORDERED: VANCOMYCIN 1,000 MG VIAL (RESTRICTED TO ID ONLY) ONE (07:29)
[2018-11-27] MEDS ORDERED: DEXAMETHASONE SOD PHOSPHATE 4 MG/1 ML VIAL ONE (07:29)
[2018-11-27 07:39] LABS: POTASSIUM 2.8 mmol/L (3.5-5.1)
[2018-11-27 07:50] LABS: ALBUMIN 3.6 g/dl (3.4-5.0); CALCIUM 9.9 mg/dL (8.5-10.1); TOT PROT 6.9 g/dl (6.4-8.2)
[2018-11-27 07:52] LABS: BILIRUBIN,TOTAL 0.6 mg/dL (0.2-1)
[2018-11-27 08:32] LABS: HEMATOCRIT 32.2 % (32.4-45.2); MCH 26.9 pg (25.7-33.7); MCHC 34.2 g/dl (32.0-36.0); MEAN CELL VOLUME 78.8 fl (80-96); MEAN PLT VOLUME 8.2 fl (7.5-11.1); PLATELET COUNT 228 K/MM3 (134-434); RBC 4.08 M/mm3 (3.60-5.2); RDW 17.9 % (11.6-15.6); WHITE BLOOD COUNT 7.8 K/mm3 (4.0-10.0)
[2018-11-27] MEDS ORDERED: PT OWN MED DRAWER 7, Y5N ONE ×2 (09:51→11:58)
[2018-11-27] MEDS ORDERED: POLYETHYLENE GLYCOL 3350 119 GM BTL PO SCH (10:00)
[2018-11-27] MEDS ORDERED: ASPIRIN COATED 81 MG TABLET.EC PO SCH (10:00)
--- NOTE | 2018-11-27 11:18 | CONSULT ---
Consult - text type - Consultation Consultation Note: Renal consult for ANDRÉS/Hyponatremia and hypokalemia This is a 83 year old [place] woman with history of CKD stage 4 (baseline Cr ~2, eGFR 25-30). CHF (diastolic dysfunction), DM type 2, anemia, hyperlipidemia who presented with generalized weakness and found to have hyponatremia, hypokalemia and ANDRÉS. History obtained from patients daughter. She reports that the pt has been getting progressively weaker since her last admission but worse over the past few weeks. Not able to ambulate under her own power. Her diuretics were recently increased as an outpatient for management of her LE edema. Denies any sob, cp, abd pain, N/V/D. + Constipation. No skin rash , recent antibiotic use. No flank pain, dysuria. No NSAID use. PMHx: as above Allergies: NKDA Family Hx: [place] Social Hx: No T/A/D ROS: as per HPI Home Medications Medication Instructions Recorded Aspirin Coated [Ecotrin -] 81 mg PO DAILY #30 tablet.ec 07/09/16 Levothyroxine [Synthroid -] 50 mcg PO DAILY #90 tablet 07/09/16 Allopurinol [Zyloprim -] 100 mg PO DAILY 10/02/17 Atorvastatin Ca [Lipitor] 20 mg PO HS 10/02/17 Gabapentin [Neurontin -] 300 mg PO DAILY 10/02/17 Glipizide [Glucotrol -] 5 mg PO TID 10/02/17 Acetaminophen [Tylenol 500 mg PO Q6H PRN tablet 11/12/17 .Extra-Strength -] Tamsulosin HCl [Flomax -] 0.4 mg PO DAILY@0830 #90 cap.er.24h 11/12/17 Insulin Glargine,Hum.rec.anlog 22 unit SQ HS 02/15/18 [Lantus Solostar] Bisacodyl [Dulcolax -] 5 mg PO ASDIR 11/26/18 Carvedilol [Coreg -] 12.5 mg PO BID 11/26/18 Cinacalcet HCl [Sensipar] 30 mg PO DAILY 11/26/18 Hydralazine HCl 50 mg PO TID 11/26/18 Insulin Lispro [Humalog] 0 unit SQ ASDIR 11/26/18 Isosorbide Mononitrate [Imdur -] 90 mg PO DAILY 11/26/18 Latanoprost/Pf [Latanoprost 0.005% 1 drp OP DAILY 11/26/18 Eye Drop] Metolazone 5 mg PO DAILY 11/26/18 Polyethylene Glycol 3350 [Miralax 17 gm PO DAILY 11/26/18 (For Daily Use) -] Potassium Chloride 20 meq PO DAILY 11/26/18 Ranitidine HCl [Zantac] 150 mg PO BID 11/26/18 Torsemide 100 mg PO DAILY 11/26/18 Vital Signs Temperature 98.2 F 11/27/18 05:47 Pulse Rate 77 11/27/18 05:47 Respiratory Rate 20 11/27/18 09:00 Blood Pressure 127/50 L 11/27/18 05:47 O2 Sat by Pulse Oximetry (%) 97 11/27/18 09:00 Intake & Output 11/24/18 11/25/18 11/26/18 11/27/18 23:59 23:59 23:59 23:59 Intake Total 100 420 Output Total 300 700 Balance -200 -280 Weight 76.204 kg NAD awake and alert neck supple, no JVD RRR, no M/R CTA, no rales or wheeze soft, mild distension, no tenderness No LE edema, clubbing or cyanosis CBC, BMP 11/27/18 05:16 11/27/18 05:20 Laboratory Tests 11/10/17 11/27/18 11/27/18 06:00 05:16 05:20 MCV 78.8 L Calcium 8.0 L 9.9 Albumin 3.5 3.6 Current Medications Acetaminophen (Tylenol -) 500 mg PO Q6H PRN PRN Reason: PAIN Last Admin: 11/26/18 22:17 Dose: 500 mg Allopurinol (Zyloprim -) 100 mg PO DAILY [facility] Aspirin (Ecotrin -) 81 mg PO DAILY [facility] Atorvastatin Calcium (Lipitor -) 20 mg PO HS [facility] Last Admin: 11/26/18 22:18 Dose: 20 mg Carvedilol (Coreg -) 12.5 mg PO BID [facility] Last Admin: 11/26/18 22:18 Dose: 12.5 mg Cinacalcet (Sensipar -) 30 mg PO DAILY [facility] Gabapentin (Neurontin -) 300 mg PO DAILY [facility] Glipizide (Glucotrol -) 5 mg PO TIDAC [facility] Last Admin: 11/27/18 06:34 Dose: 5 mg Hydralazine HCl (Apresoline -) 50 mg PO TID [facility] Last Admin: 11/27/18 06:34 Dose: 50 mg Sodium Chloride (Normal Saline -) 500 mls @ 42 mls/hr IV ASDIR [facility] Last Admin: 11/26/18 23:55 Dose: 42 mls/hr Insulin Aspart (Novolog Vial Sliding Scale -) 1 vial SQ ACHS [facility]; Protocol Last Admin: 11/27/18 06:35 Dose: 2 units Insulin Detemir (Levemir Vial) 22 units SQ HS [facility] Last Admin: 11/26/18 22:18 Dose: 22 units Isosorbide Mononitrate (Imdur -) 90 mg PO DAILY [facility] Latanoprost (Xalatan 0.005% Eye Drops -) 1 drop OU HS [facility] Levothyroxine Sodium (Synthroid -) 50 mcg PO AM [facility] Last Admin: 11/27/18 06:34 Dose: 50 mcg Morphine Sulfate (Morphine Sulfate) 1 mg IVPUSH Q3H PRN PRN Reason: PAIN LEVEL 6-10 Last Admin: 11/26/18 23:47 Dose: 1 mg Polyethylene Glycol (Miralax (For Daily Use) -) 17 gm PO TID [facility] Last Admin: 11/27/18 06:34 Dose: 17 gm Potassium Chloride (K-Dur -) 20 meq PO DAILY [facility] Ranitidine HCl (Zantac -) 150 mg PO BID [facility] Last Admin: 11/26/18 22:18 Dose: 150 mg Tamsulosin HCl (Flomax -) 0.4 mg PO DAILY@0830 [facility] 83 year old [place] woman with history of CKD stage 4 (baseline Cr ~2, eGFR 25-30). CHF (diastolic dysfunction), DM type 2, anemia, hyperlipidemia who presented with generalized weakness and found to have hyponatremia, hypokalemia and ANDRÉS. #ANDRÉS likely due to hypovolemia in setting of diuretic use and poor solute intake #Hypovolemic hyponatremia #Hypokalemia form diuretics and poor oral intake #Metabolic alkalosis (contraction alkalosis) #Diastolic HF w/o evidence of CHF exacerbation #Hx of Anemia (Hgb now WNL but may be due to hemoconcentration) #Cervical radiculopathy Will need hydration with NS at 75cc per hour Monitor BMP Q12h to ensure that Na does not correct too rapidly (goal ~10 in 24 hours) Supplement K with IV KCL and oral KCL Check urine studies for FeUra, Urine OSM, Urine Na hold diuretics for now would defer any surgery until electrolyte abnormalities corrected and renal function is near baseline Check PTH, and trend Ca, Phos while on Sensipar No acute need for renal replacement therapy Will follow closely pain control w/o nsaids Thank you Wm Tian DO
[2018-11-27] MEDS: KCL 10 MEQ IVPB 10 MEQ/100 ML INFUS.BAG IVPB SCH ×4 (11:54→16:54)
[2018-11-27] MEDS: RANITIDINE HCL 150 MG TABLET (FP) PO SCH ×2 (11:55→21:43)
[2018-11-27] MEDS: GABAPENTIN 300 MG CAPSULE (FP) PO SCH (11:55)
[2018-11-27] MEDS: CARVEDILOL 6.25 MG TABLET (FP) PO SCH ×2 (11:55→21:43)
[2018-11-27] MEDS: ISOSORBIDE MONONITRATE 30 MG TAB.SR.24H (FP) PO SCH (11:55)
[2018-11-27] MEDS: POTASSIUM CHLORIDE TABS 20 MEQ TABLET.ER (FP) PO SCH (11:55)
[2018-11-27] MEDS: TAMSULOSIN HCL 0.4 MG CAP PO SCH (11:55)
[2018-11-27] MEDS: ALLOPURINOL 100 MG TABLET (FP) PO SCH (11:55)
[2018-11-27] MEDS: MORPHINE SULFATE 2 MG/ML VIAL IVPUSH PRN (12:04)
--- NOTE | 2018-11-27 12:17 | CONSULT ---
Consult - text type - Consultation Consultation Note: NEUROSURGERY CONSULTATION Mark Hernandez a 83 year old IndianFemale who has achief complaint of neck pain and gait difficulty. She describes her spasticity and gait problems as "I have jumping legs....I cannot walk." Although these symptoms have been present for several months, they have intensified over the past 2 weeks.The patient was referred to [facility] by her daughter who works at [place] [facility] [employer] further evaluation and management. Her daughter relates that she is "always complaining of neck pain." The patient also has significant bilateral arm radicular pains.The patient has tingling in herhands, but does not describe numbness. The patienthas been dropping things and has some problems with fine motor tasks.MRI Cervical demonstrates mild degenerative kyphosis and spondylosis with osteophytes, disc bulges and hypertrophic posterior longitudinal ligament and ligamentum flavum which when combined with a congenitally narrow spinal canal results in effacement of the ventral and dorsal CSF spaces and deformation of the Cervical spinal cord. There appear to be soft discs which are worst at C56 and C67 where the focal kyphosis is worst. The AP spinal canal diameters are: C23 = 13mm; C34 = 11mm; C45 = 9.6mm; C56 = 8.8mm; & C67 = 8.3mm.After review of symptoms and imaging, the patient would likely benefit from decompression and stabilization in the Cervical spine. I described the risks, benefits and alternativesof Cervical 6 corpectomy and mormonism of lordosis with reconstruction using a PEEK cage and anterior platingin great detail. I explained that the risks included, but were not limited to: , coma, paralysis, bleeding, infection, CSF leak possibly requiring spinal drainage or additional surgery, failure to fuse, failure to improve, instrumentation migration/malposition/malfunction and the need for additional surgery. I offered the patient the option to seek another opinion or another surgeon. All questions were answered. Informed consent was obtained. I made a series of illustrations to outline the anatomy, pathology, surgical approachesand potential complications.The patient and daughterwill contemplate their options and will get back to us with a final decision regarding surgery. The patient was seen in the office on November 22, 2018 and was offered surgery for her Cervical Spondylotic Myelopathy. Ultimately, the patient elected to defer surgery in favor of additional Physical Therapy. The patient was seen at the office of her PCP (Dr. Sunshine) on Monday November 26, 2018 and was reported to be barely able to support herself and could only minimally ambulate with the assistance of two other people. 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 She was directed to the [facility] ER where she was evaluated and now expressed a desire to proceed with the surgery as described. Due to her progression of symptoms, I proposed consideration of a new Cervical MRI and medical clearance prior to surgery. The patient is still awaiting MRI and has abnormal lab values on her Chemistry profile (Sodium 119). We will endeavor to treat this rapidly progressing Neurological condition with surgery on if patient can be medically optimized. - MRI Cervical without contrast - Medical clearance/optimization - Surgery will be planned for November
[2018-11-27 12:31] LABS: MAGNESIUM 2.6 mg/dL (1.8-2.4)
[2018-11-27] MEDS: SODIUM CHLORIDE 500 ML IV SCH (12:34)
[2018-11-27] MEDS: CINACALCET HCL 30 MG TAB (FP) PO SCH (13:41)
--- NOTE | 2018-11-27 15:25 | EKG ---
Test Reason : Blood Pressure : / mmHG Vent. Rate : 066 BPM Atrial Rate : 066 BPM P-R Int : 172 ms QRS Dur : 104 ms QT Int : 482 ms P-R-T Axes : 054 050 056 degrees QTc Int : 505 ms SINUS RHYTHM WITH PREMATURE ATRIAL COMPLEXES PROLONGED QT ABNORMAL ECG WHEN COMPARED WITH ECG OF 09-OCT-2018 13:49, NO SIGNIFICANT CHANGE WAS FOUND Confirmed by MD Jonny, Giovany ([id number]) on 11/27/2018 3:25:03 PM Referred By: Confirmed By:Giovany Fuller MD
--- NOTE | 2018-11-27 16:14 | PN ---
Progress Note, Physician History of Present Illness: Pt is weak; no CP, palpitations, SOB, abd apin. Pt c/o constipation - Current Medication List Current Medications: Active Medications Acetaminophen (Tylenol -) 500 mg PO Q6H PRN PRN Reason: PAIN Last Admin: 11/26/18 22:17 Dose: 500 mg Allopurinol (Zyloprim -) 100 mg PO DAILY [facility] Last Admin: 11/27/18 11:55 Dose: 100 mg Aspirin (Ecotrin -) 81 mg PO DAILY [facility] Last Admin: 11/27/18 11:55 Dose: 81 mg Atorvastatin Calcium (Lipitor -) 20 mg PO HS [facility] Last Admin: 11/26/18 22:18 Dose: 20 mg Carvedilol (Coreg -) 12.5 mg PO BID [facility] Last Admin: 11/27/18 11:55 Dose: 12.5 mg Cinacalcet (Sensipar -) 30 mg PO DAILY [facility] Last Admin: 11/27/18 13:41 Dose: 30 mg Gabapentin (Neurontin -) 300 mg PO DAILY [facility] Last Admin: 11/27/18 11:55 Dose: 300 mg Glipizide (Glucotrol -) 5 mg PO TIDAC [facility] Last Admin: 11/27/18 12:05 Dose: 5 mg Hydralazine HCl (Apresoline -) 50 mg PO TID [facility] Last Admin: 11/27/18 13:12 Dose: 50 mg Sodium Chloride (Normal Saline -) 500 mls @ 75 mls/hr IV ASDIR [facility] Last Admin: 11/27/18 12:34 Dose: 75 mls/hr Insulin Aspart (Novolog Vial Sliding Scale -) 1 vial SQ [facility]; Protocol Last Admin: 11/27/18 12:33 Dose: 2 units Insulin Detemir (Levemir Vial) 22 units SQ [facility] Last Admin: 11/26/18 22:18 Dose: 22 units Isosorbide Mononitrate (Imdur -) 90 mg PO DAILY [facility] Last Admin: 11/27/18 11:55 Dose: 90 mg Latanoprost (Xalatan 0.005% Eye Drops -) 1 drop OU [facility] Levothyroxine Sodium (Synthroid -) 50 mcg PO AM [facility] Last Admin: 11/27/18 06:34 Dose: 50 mcg Morphine Sulfate (Morphine Sulfate) 1 mg IVPUSH Q3H PRN PRN Reason: PAIN LEVEL 6-10 Last Admin: 11/27/18 12:04 Dose: 1 mg Polyethylene Glycol (Miralax (For Daily Use) -) 17 gm PO TID [facility] Last Admin: 11/27/18 13:12 Dose: 17 gm Potassium Chloride (K-Dur -) 20 meq PO DAILY [facility] Last Admin: 11/27/18 11:55 Dose: 20 meq Ranitidine HCl (Zantac -) 150 mg PO BID [facility] Last Admin: 11/27/18 11:55 Dose: 150 mg Tamsulosin HCl (Flomax -) 0.4 mg PO DAILY@0830 [facility] Last Admin: 11/27/18 11:55 Dose: 0.4 mg - Objective Vital Signs: Vital Signs Temperature 98.2 F 11/27/18 14:41 Pulse Rate 61 11/27/18 14:41 Respiratory Rate 20 11/27/18 14:41 Blood Pressure 107/42 L 11/27/18 14:41 O2 Sat by Pulse Oximetry (%) 97 11/27/18 09:00 Constitutional: Yes: No Distress, Calm Cardiovascular: Yes: Regular Rate and Rhythm, S1, S2 Respiratory: Yes: Regular, CTA Bilaterally. No: Rales Gastrointestinal: Yes: Normal Bowel Sounds, Soft, Abdomen, Obese. No: Palpable Mass, Tenderness Edema: No Neurological: Yes: Alert, Oriented Labs: CBC, BMP 11/27/18 05:16 11/27/18 05:20 INR, PTT INR 0.97 (0.83-1.09) 11/26/18 15:46 Problem List - Problems (1) Cervical spondylosis with myelopathy and radiculopathy Code(s): M47.12 - OTHER SPONDYLOSIS WITH MYELOPATHY, CERVICAL REGION; M47.22 - OTHER SPONDYLOSIS WITH RADICULOPATHY, CERVICAL REGION (2) Impaired gait Code(s): R26.9 - UNSPECIFIED ABNORMALITIES OF GAIT AND MOBILITY (3) ANDRÉS (acute kidney injury) Code(s): N17.9 - ACUTE KIDNEY FAILURE, UNSPECIFIED (4) CAD (coronary artery disease) Code(s): I25.10 - ATHSCL HEART DISEASE OF [place] CORONARY ARTERY W/O ANG PCTRS (5) Diabetes mellitus Code(s): E11.9 - TYPE 2 DIABETES MELLITUS WITHOUT COMPLICATIONS (6) Hyponatremia Code(s): E87.1 - HYPO-OSMOLALITY AND HYPONATREMIA (7) Acute renal failure Code(s): N17.9 - ACUTE KIDNEY FAILURE, UNSPECIFIED Qualifiers: Acute renal failure type: unspecified Qualified Code(s): N17.9 - Acute kidney failure, unspecified (8) Hypokalemia Code(s): E87.6 - HYPOKALEMIA Assessment/Plan Admitted to monitored bed. Mg brianna pickard Renal (case was d/w Dr. Tian) and NeuroSx consults are appreciated Cardio consult Replete K IVF hydration Tap water enema AM labs Pt is not cleared for surgery -pt would be followed up daily and preop clearance status would be revisited.
--- NOTE | 2018-11-27 18:50 | CON.CARD ---
Consult Consult Specialty:: Cardiology Referred by:: Dr. Sunshine Reason for Consultation:: Cardiac evaluation - History of Present Illness Chief Complaint: Back pain and weakness History of Present Illness: Patient is an 82 year old female well known to me with underlying history of HTN , type 2 DM, hypercholesterolemia, LV diastolic dysfunction, osteoarthritis, hypothyroidism, diverticular disease and CKD who presents with back pain and weakness. She has history of spinal stenosis and had seen Dr. Jamie Man for possible spine surgery. She denies chest pain, SOB or palpitations. She denies paroxysmal nocturnal dyspnea or orthopnea. She denies fever or chills. She denies nausea, vomiting, diarrhea or abdominal pain. She denies headache or lightheadedness. Prior cardiac catheterization revealed normal LAD, 30% mild LCX and 60% mid RCA stenosis. Patient was advised medical therapy. Last echocardiography (11/08/17) revealed normal LV systolic function, moderate LVH, trace to mild MR. - History Source History Provided By: Patient, Family Member, Medical Record Limitations to Obtaining History: No Limitations - Past Medical History Cardio/Vascular: Yes: CAD (non-obstructive), CHF, HTN, Hyperlipdemia, Other ( Angina pectoris) Gastrointestinal: Yes: Constipation, Diverticulosis, GERD, Other (colon polyps: sessil serrated adenomas x 2 2014) Renal/: Yes: Renal Inusuff ...: No Musculoskeletal: Yes: Other (Spinal stenosis) Endocrine: Yes: Diabetes Mellitus (Insulin dependent), Hypothyroidism - Past Surgical History Past Surgical History: Yes: Hysterectomy ([place], BSO in 1981), Oopherectomy - Alcohol/Substance Use Hx Alcohol Use: No History of Substance Use: reports: None - Smoking History Smoking history: Never smoked Have you smoked in the past 12 months: No Aproximately how many cigarettes per day: 0 - Social History Usual Living Arrangement: With Spouse ADL: Independent History of Recent Travel: Yes (WENT TO [place] TWO YEARS AGO) Home Medications - Allergies Allergies/Adverse Reactions: Allergies Allergy/AdvReac Type Severity Reaction Status Date / Time No Known Allergies Allergy Verified 11/26/18 12:54 - Home Medications Home Medications: Ambulatory Orders Aspirin Coated [Ecotrin -] 81 mg PO DAILY #30 tablet.ec 07/09/16 Levothyroxine [Synthroid -] 50 mcg PO DAILY #90 tablet 07/09/16 Allopurinol [Zyloprim -] 100 mg PO DAILY 10/02/17 Atorvastatin Ca [Lipitor] 20 mg PO HS 10/02/17 Gabapentin [Neurontin -] 300 mg PO DAILY 10/02/17 Glipizide [Glucotrol -] 5 mg PO TID 10/02/17 Acetaminophen [Tylenol .Extra-Strength -] 500 mg PO Q6H PRN tablet 11/12/17 Tamsulosin HCl [Flomax -] 0.4 mg PO DAILY@0830 #90 cap.er.24h 11/12/17 Insulin Glargine,Hum.rec.anlog [Lantus Solostar] 22 unit SQ HS 02/15/18 Bisacodyl [Dulcolax -] 5 mg PO ASDIR 11/26/18 Carvedilol [Coreg -] 12.5 mg PO BID 11/26/18 Cinacalcet HCl [Sensipar] 30 mg PO DAILY 11/26/18 Hydralazine HCl 50 mg PO TID 11/26/18 Insulin Lispro [Humalog] 0 unit SQ [facility] 11/26/18 Isosorbide Mononitrate [Imdur -] 90 mg PO DAILY 11/26/18 Latanoprost/Pf [Latanoprost 0.005% Eye Drop] 1 drp OP DAILY 11/26/18 Metolazone 5 mg PO DAILY 11/26/18 Polyethylene Glycol 3350 [Miralax (For Daily Use) -] 17 gm PO DAILY 11/26/18 Potassium Chloride 20 meq PO DAILY 11/26/18 Ranitidine HCl [Zantac] 150 mg PO BID 11/26/18 Torsemide 100 mg PO DAILY 11/26/18 Family Disease History - Family Disease History Family Disease History: Diabetes: Brother, Sister, Other: Father ( in his 50s ? etiology) Review of Systems - Review of Systems Constitutional: reports: Weakness. denies: Chills, Fever Cardiovascular: denies: Chest Pain, Palpitations, Shortness of Breath Respiratory: denies: Cough, Hemoptysis, Orthopnea, PND, SOB, SOB on Exertion Gastrointestinal: denies: Abdominal Pain, Constipation, Diarrhea, Melena, Nausea , Rectal Bleeding, Vomiting Genitourinary: denies: Dysuria, Hematuria Musculoskeletal: reports: Back Pain, Extremity Pain, Muscle Weakness Neurological: denies: Dizziness, Headache, Seizure, Syncope Vital Signs: Vital Signs Temperature 97.3 F L 11/27/18 17:00 Pulse Rate 61 11/27/18 17:00 Respiratory Rate 20 11/27/18 17:00 Blood Pressure 130/51 L 11/27/18 17:00 O2 Sat by Pulse Oximetry (%) 97 11/27/18 09:00 Eyes: Yes: PERRL HENT: Yes: Atraumatic Neck: Yes: Supple Respiratory: Yes: CTA Bilaterally Gastrointestinal: Yes: Normal Bowel Sounds, Soft. No: Tenderness Cardiovascular: Yes: Regular Rate and Rhythm JVD: No Carotid Bruit: No PMI: Non-Displaced Heart Sounds: Yes: S1, S2 Murmur: No: Systolic Murmur, Diastolic Murmur Edema: No - Other Data Labs, Other Data: CBC, BMP 11/27/18 05:16 11/27/18 05:20 INR, PTT INR 0.97 (0.83-1.09) 11/26/18 15:46 Sinus rhythm with APC Imaging - Results Chest X-ray: Report Reviewed (Unremarkable) EKG: Report Reviewed Problem List - Problems (1) Cervical spondylosis with myelopathy and radiculopathy Code(s): M47.12 - OTHER SPONDYLOSIS WITH MYELOPATHY, CERVICAL REGION; M47.22 - OTHER SPONDYLOSIS WITH RADICULOPATHY, CERVICAL REGION (2) Hypokalemia Code(s): E87.6 - HYPOKALEMIA (3) Impaired gait Code(s): R26.9 - UNSPECIFIED ABNORMALITIES OF GAIT AND MOBILITY (4) ANDRÉS (acute kidney injury) Code(s): N17.9 - ACUTE KIDNEY FAILURE, UNSPECIFIED (5) Anemia Code(s): D64.9 - ANEMIA, UNSPECIFIED (6) CAD (coronary artery disease) Code(s): I25.10 - ATHSCL HEART DISEASE OF [place] CORONARY ARTERY W/O ANG PCTRS (7) CRF (chronic renal failure) Code(s): N18.9 - CHRONIC KIDNEY DISEASE, UNSPECIFIED (8) Diabetes mellitus Code(s): E11.9 - TYPE 2 DIABETES MELLITUS WITHOUT COMPLICATIONS (9) Hyponatremia Code(s): E87.1 - HYPO-OSMOLALITY AND HYPONATREMIA (10) Diverticulosis Code(s): K57.90 - DVRTCLOS OF INTEST, PART UNSP, W/O PERF OR ABSCESS W/O BLEED (11) Endothelial dysfunction of coronary artery Code(s): I99.8 - OTHER DISORDER OF CIRCULATORY SYSTEM (12) Hyperlipidemia Code(s): E78.5 - HYPERLIPIDEMIA, UNSPECIFIED Qualifiers: Hyperlipidemia type: pure hypercholesterolemia Qualified Code(s): E78.00 - Pure hypercholesterolemia, unspecified; E78.0 - Pure hypercholesterolemia (13) Hypertension Code(s): I10 - ESSENTIAL (PRIMARY) HYPERTENSION Qualifiers: Hypertension type: essential hypertension Qualified Code(s): I10 - Essential (primary) hypertension (14) Hypothyroidism Code(s): E03.9 - HYPOTHYROIDISM, UNSPECIFIED Qualifiers: Hypothyroidism type: unspecified Qualified Code(s): E03.9 - Hypothyroidism , unspecified (15) [id number] kidney injury Code(s): N17.9 - ACUTE KIDNEY FAILURE, UNSPECIFIED; N18.9 - CHRONIC KIDNEY DISEASE, UNSPECIFIED Assessment/Plan 1. Spinal stenosis 2. CAD - non-obstructive, angina pectoris 3. HTN 4. Hypercholesterolemia 5. Type 2 DM 6. Hypothyroidism 7. CKD 8. LV diastolic dysfunction without evidence of failure 9. Hypnatremia and hypokalemia PLAN: 1. Renal input noted. Correct NA and supplement K 2. Monitor renal function 3. Tentative neurosurgery on 4. Continue Carvedilol as tolerated 5. Imdur and Hydralazine as tolerated 6. Statin therapy 7. Ecotrin may need to be held prior to spine surgery 8. There is no absolute contraindication for surgery in view of absence of ischemic symptoms, decompensated congestive heart failure and absence of malignant arrhythmias, but NA needs to be corrected prior to surgery Guarded Apollo Kiser MD
[2018-11-27 19:44] LABS: BLOOD UREA NITROGEN 103.2 mg/dL (7-18); CALCIUM 9.2 mg/dL (8.5-10.1); CREATININE 2.5 mg/dL (0.55-1.3); POTASSIUM 3.4 mmol/L (3.5-5.1)
[2018-11-27] MEDS: ATORVASTATIN CA 20 MG TABLET (FP) PO SCH (21:43)
[2018-11-27] MEDS: INSULIN (LEVEMIR) 100 UNITS/ML UNITS SQ SCH (21:44)
[2018-11-27] MEDS: LATANOPROST 0.005% OPHTH SOLN 2.5ML BOTTLE OU SCH (23:50)
[2018-11-28] MEDS: LEVOTHYROXINE NA 50 MCG TABLET (FP) PO SCH (06:21)
[2018-11-28] MEDS: glipiZIDE 5 MG TABLET (FP) PO SCH ×3 (06:21→17:01)
[2018-11-28] MEDS: hydrALAZINE HCL 50 MG TABLET (FP) PO SCH ×3 (06:21→21:55)
[2018-11-28] MEDS: POLYETHYLENE GLYCOL 3350 119 GM BTL PO SCH ×3 (06:33→21:50)
[2018-11-28] MEDS: INSULIN SLIDING SCALE (NOVOLOG) 1 VIAL SQ SCH ×4 (06:34→21:56)
[2018-11-28 07:56] LABS: BASO % 0.2 % (0-2.0); EOS % 21.2 % (0-4.5); HEMATOCRIT 32.7 % (32.4-45.2); HEMOGLOBIN 10.9 GM/dL (10.7-15.3); LYMPH % 11.8 % (8-40); MCH 26.6 pg (25.7-33.7); MCHC 33.4 g/dl (32.0-36.0); MEAN CELL VOLUME 79.6 fl (80-96); MEAN PLT VOLUME 7.7 fl (7.5-11.1); MONO % 9.6 % (3.8-10.2); NEUT % 57.2 % (42.8-82.8); PLATELET COUNT 219 K/MM3 (134-434); RBC 4.11 M/mm3 (3.60-5.2); RDW 18.4 % (11.6-15.6); WHITE BLOOD COUNT 9.6 K/mm3 (4.0-10.0)
[2018-11-28] MEDS: TAMSULOSIN HCL 0.4 MG CAP PO SCH (08:53)
[2018-11-28 09:25] LABS: ALBUMIN 3.5 g/dl (3.4-5.0); BILIRUBIN,TOTAL 0.6 mg/dL (0.2-1); BLOOD UREA NITROGEN 94.7 mg/dL (7-18); CREATININE 2.3 mg/dL (0.55-1.3); MAGNESIUM 2.5 mg/dL (1.8-2.4); PHOSPHOROUS 3.8 mg/dL (2.5-4.9); POTASSIUM 3.1 mmol/L (3.5-5.1); TOT PROT 6.9 g/dl (6.4-8.2)
[2018-11-28] MEDS: CARVEDILOL 6.25 MG TABLET (FP) PO SCH ×2 (10:06→21:55)
[2018-11-28] MEDS: RANITIDINE HCL 150 MG TABLET (FP) PO SCH ×2 (10:06→21:56)
[2018-11-28] MEDS: ALLOPURINOL 100 MG TABLET (FP) PO SCH (10:06)
[2018-11-28] MEDS: POTASSIUM CHLORIDE TABS 20 MEQ TABLET.ER (FP) PO SCH (10:06)
[2018-11-28] MEDS: ISOSORBIDE MONONITRATE 30 MG TAB.SR.24H (FP) PO SCH (10:07)
[2018-11-28] MEDS: GABAPENTIN 300 MG CAPSULE (FP) PO SCH (10:07)
[2018-11-28] MEDS: CINACALCET HCL 30 MG TAB (FP) PO SCH (10:07)
[2018-11-28 10:36] LABS: ANISOCYTOSIS 1+; MACROCYTOSIS 0; OVALOCYTE 1+; PLATELET ESTIMATE NORMAL
--- NOTE | 2018-11-28 11:41 | PN ---
Progress Note, Physician History of Present Illness: Pt is sleepy this AM. Pt w/o CP, palpitations, SOB, abd pain. Pt had 2 large BMs last night, enema was needed - Current Medication List Current Medications: Active Medications Acetaminophen (Tylenol -) 500 mg PO Q6H PRN PRN Reason: PAIN Last Admin: 11/26/18 22:17 Dose: 500 mg Allopurinol (Zyloprim -) 100 mg PO DAILY [facility] Last Admin: 11/28/18 10:06 Dose: 100 mg Atorvastatin Calcium (Lipitor -) 20 mg PO HS [facility] Last Admin: 11/27/18 21:43 Dose: 20 mg Carvedilol (Coreg -) 12.5 mg PO BID [facility] Last Admin: 11/28/18 10:06 Dose: 12.5 mg Cinacalcet (Sensipar -) 30 mg PO DAILY [facility] Last Admin: 11/28/18 10:07 Dose: 30 mg Gabapentin (Neurontin -) 300 mg PO DAILY [facility] Last Admin: 11/28/18 10:07 Dose: 300 mg Glipizide (Glucotrol -) 5 mg PO TIDAC [facility] Last Admin: 11/28/18 06:21 Dose: 5 mg Hydralazine HCl (Apresoline -) 50 mg PO TID [facility] Last Admin: 11/28/18 06:21 Dose: 50 mg Sodium Chloride (Normal Saline -) 500 mls @ 75 mls/hr IV ASDIR [facility] Last Admin: 11/27/18 12:34 Dose: 75 mls/hr Insulin Aspart (Novolog Vial Sliding Scale -) 1 vial SQ [facility]; Protocol Last Admin: 11/28/18 11:37 Dose: Not Given Insulin Detemir (Levemir Vial) 22 units SQ [facility] Last Admin: 11/27/18 21:44 Dose: 22 units Isosorbide Mononitrate (Imdur -) 90 mg PO DAILY [facility] Last Admin: 11/28/18 10:07 Dose: 90 mg Latanoprost (Xalatan 0.005% Eye Drops -) 1 drop OU HS [facility] Last Admin: 11/27/18 23:50 Dose: 1 drop Levothyroxine Sodium (Synthroid -) 50 mcg PO AM [facility] Last Admin: 11/28/18 06:21 Dose: 50 mcg Morphine Sulfate (Morphine Sulfate) 1 mg IVPUSH Q3H PRN PRN Reason: PAIN LEVEL 6-10 Last Admin: 11/27/18 12:04 Dose: 1 mg Polyethylene Glycol (Miralax (For Daily Use) -) 17 gm PO TID [facility] Last Admin: 11/28/18 06:33 Dose: 17 gm Potassium Chloride (K-Dur -) 20 meq PO DAILY [facility] Last Admin: 11/28/18 10:06 Dose: 20 meq Potassium Chloride (Potassium Chloride 20 Meq Premix Ivpb -) 20 meq IVPB ONCE ONE Stop: 11/28/18 11:40 Ranitidine HCl (Zantac -) 150 mg PO BID [facility] Last Admin: 11/28/18 10:06 Dose: 150 mg Tamsulosin HCl (Flomax -) 0.4 mg PO DAILY@0830 [facility] Last Admin: 11/28/18 08:53 Dose: 0.4 mg - Objective Vital Signs: Vital Signs Temperature 97.8 F 11/28/18 10:00 Pulse Rate 64 11/28/18 10:00 Respiratory Rate 16 11/28/18 10:00 Blood Pressure 117/54 L 11/28/18 10:00 O2 Sat by Pulse Oximetry (%) 97 11/27/18 21:00 Constitutional: Yes: No Distress, Calm Cardiovascular: Yes: Regular Rate and Rhythm, S1, S2 Respiratory: Yes: Regular, CTA Bilaterally. No: Rales Gastrointestinal: Yes: Normal Bowel Sounds, Soft, Abdomen, Obese. No: Tenderness Edema: No Neurological: Yes: Alert, Oriented Labs: CBC, BMP 11/28/18 06:59 11/28/18 06:59 INR, PTT INR 0.97 (0.83-1.09) 11/26/18 15:46 Problem List - Problems (1) Cervical spondylosis with myelopathy and radiculopathy Code(s): M47.12 - OTHER SPONDYLOSIS WITH MYELOPATHY, CERVICAL REGION; M47.22 - OTHER SPONDYLOSIS WITH RADICULOPATHY, CERVICAL REGION (2) Impaired gait Code(s): R26.9 - UNSPECIFIED ABNORMALITIES OF GAIT AND MOBILITY (3) ANDRÉS (acute kidney injury) Code(s): N17.9 - ACUTE KIDNEY FAILURE, UNSPECIFIED (4) CAD (coronary artery disease) Code(s): I25.10 - ATHSCL HEART DISEASE OF [place] CORONARY ARTERY W/O ANG PCTRS Qualifiers: Coronary Disease-Associated Artery/Lesion type: [place] artery [place] vs. transplanted heart: [place] heart Associated angina: without angina Qualified Code(s): I25.10 - Atherosclerotic heart disease of [place] coronary artery without angina pectoris (5) Diabetes mellitus Code(s): E11.9 - TYPE 2 DIABETES MELLITUS WITHOUT COMPLICATIONS (6) Hyponatremia Code(s): E87.1 - HYPO-OSMOLALITY AND HYPONATREMIA (7) Acute renal failure Code(s): N17.9 - ACUTE KIDNEY FAILURE, UNSPECIFIED Qualifiers: Acute renal failure type: unspecified Qualified Code(s): N17.9 - Acute kidney failure, unspecified (8) Hypokalemia Code(s): E87.6 - HYPOKALEMIA Assessment/Plan Admitted to monitored bed. Mg was cheked Renal, NeuroSx, Cardiology (pt's condition was d/w Dr. Arroyo) consults are appreciated Replete K IVF hydration AM labs Pt's condition was reviewed with his nurse at bedside. Pt is not cleared for surgery -pt would be followed up daily and preop clearance status would be revisited.
--- NOTE | 2018-11-28 12:06 | PN ---
Progress Note, Physician History of Present Illness: Resting comfortably, denies chest pain or dyspnea. - Current Medication List Current Medications: Active Medications Acetaminophen (Tylenol -) 500 mg PO Q6H PRN PRN Reason: PAIN Last Admin: 11/26/18 22:17 Dose: 500 mg Allopurinol (Zyloprim -) 100 mg PO DAILY [facility] Last Admin: 11/28/18 10:06 Dose: 100 mg Atorvastatin Calcium (Lipitor -) 20 mg PO HS [facility] Last Admin: 11/27/18 21:43 Dose: 20 mg Carvedilol (Coreg -) 12.5 mg PO BID [facility] Last Admin: 11/28/18 10:06 Dose: 12.5 mg Cinacalcet (Sensipar -) 30 mg PO DAILY [facility] Last Admin: 11/28/18 10:07 Dose: 30 mg Gabapentin (Neurontin -) 300 mg PO DAILY [facility] Last Admin: 11/28/18 10:07 Dose: 300 mg Glipizide (Glucotrol -) 5 mg PO TIDAC [facility] Last Admin: 11/28/18 11:38 Dose: 5 mg Hydralazine HCl (Apresoline -) 50 mg PO TID [facility] Last Admin: 11/28/18 06:21 Dose: 50 mg Sodium Chloride (Normal Saline -) 500 mls @ 75 mls/hr IV ASDIR [facility] Last Admin: 11/27/18 12:34 Dose: 75 mls/hr Insulin Aspart (Novolog Vial Sliding Scale -) 1 vial SQ [facility]; Protocol Last Admin: 11/28/18 11:37 Dose: Not Given Insulin Detemir (Levemir Vial) [address] [facility] Last Admin: 11/27/18 21:44 Dose: 22 units Isosorbide Mononitrate (Imdur -) 90 mg PO DAILY [facility] Last Admin: 11/28/18 10:07 Dose: 90 mg Latanoprost (Xalatan 0.005% Eye Drops -) 1 drop OU HS [facility] Last Admin: 11/27/18 23:50 Dose: 1 drop Levothyroxine Sodium (Synthroid -) 50 mcg PO AM [facility] Last Admin: 11/28/18 06:21 Dose: 50 mcg Morphine Sulfate (Morphine Sulfate) 1 mg IVPUSH Q3H PRN PRN Reason: PAIN LEVEL 6-10 Last Admin: 11/27/18 12:04 Dose: 1 mg Polyethylene Glycol (Miralax (For Daily Use) -) 17 gm PO TID [facility] Last Admin: 11/28/18 06:33 Dose: 17 gm Potassium Chloride (K-Dur -) 20 meq PO DAILY [facility] Last Admin: 11/28/18 10:06 Dose: 20 meq Potassium Chloride (Potassium Chloride 10 Meq Premix Ivpb -) 10 meq IVPB Q1H [facility] Stop: 11/28/18 12:40 Ranitidine HCl (Zantac -) 150 mg PO BID [facility] Last Admin: 11/28/18 10:06 Dose: 150 mg Tamsulosin HCl (Flomax -) 0.4 mg PO DAILY@0830 [facility] Last Admin: 11/28/18 08:53 Dose: 0.4 mg - Objective Vital Signs: Vital Signs Temperature 97.8 F 11/28/18 10:00 Pulse Rate 64 11/28/18 10:00 Respiratory Rate 16 11/28/18 10:00 Blood Pressure 117/54 L 11/28/18 10:00 O2 Sat by Pulse Oximetry (%) 97 11/27/18 21:00 Constitutional: Yes: No Distress, Calm Neck: Yes: Supple Cardiovascular: Yes: Regular Rate and Rhythm Respiratory: Yes: Regular, Diminished Gastrointestinal: Yes: Normal Bowel Sounds, Soft, Abdomen, Obese Edema: No Labs: CBC, BMP 11/28/18 06:59 11/28/18 06:59 INR, PTT INR 0.97 (0.83-1.09) 11/26/18 15:46 Problem List - Problems (1) Cervical spondylosis with myelopathy and radiculopathy Code(s): M47.12 - OTHER SPONDYLOSIS WITH MYELOPATHY, CERVICAL REGION; M47.22 - OTHER SPONDYLOSIS WITH RADICULOPATHY, CERVICAL REGION (2) Hypokalemia Code(s): E87.6 - HYPOKALEMIA (3) CAD (coronary artery disease) Code(s): I25.10 - ATHSCL HEART DISEASE OF [place] CORONARY ARTERY W/O ANG PCTRS Qualifiers: Coronary Disease-Associated Artery/Lesion type: [place] artery [place] vs. transplanted heart: [place] heart Associated angina: without angina Qualified Code(s): I25.10 - Atherosclerotic heart disease of [place] coronary artery without angina pectoris (4) Diabetes mellitus Code(s): E11.9 - TYPE 2 DIABETES MELLITUS WITHOUT COMPLICATIONS (5) Hyponatremia Code(s): E87.1 - HYPO-OSMOLALITY AND HYPONATREMIA (6) Non-occlusive coronary artery disease Code(s): I25.10 - ATHSCL HEART DISEASE OF [place] CORONARY ARTERY W/O ANG PCTRS (7) Diabetes mellitus with diabetic cardiomyopathy Code(s): E11.59 - TYPE 2 DIABETES MELLITUS WITH OTH CIRCULATORY COMPLICATIONS; I43 - CARDIOMYOPATHY IN DISEASES CLASSIFIED ELSEWHERE (8) Endothelial dysfunction of coronary artery Code(s): I99.8 - OTHER DISORDER OF CIRCULATORY SYSTEM (9) Hyperlipidemia Code(s): E78.5 - HYPERLIPIDEMIA, UNSPECIFIED Qualifiers: Hyperlipidemia type: pure hypercholesterolemia Qualified Code(s): E78.00 - Pure hypercholesterolemia, unspecified; E78.0 - Pure hypercholesterolemia (10) Hypertension Code(s): I10 - ESSENTIAL (PRIMARY) HYPERTENSION Qualifiers: Hypertension type: essential hypertension Qualified Code(s): I10 - Essential (primary) hypertension (11) Hypothyroidism Code(s): E03.9 - HYPOTHYROIDISM, UNSPECIFIED Qualifiers: Hypothyroidism type: unspecified Qualified Code(s): E03.9 - Hypothyroidism , unspecified (12) [id number] kidney injury Code(s): N17.9 - ACUTE KIDNEY FAILURE, UNSPECIFIED; N18.9 - CHRONIC KIDNEY DISEASE, UNSPECIFIED Assessment/Plan 1. Spinal stenosis 2. CAD - non-obstructive, angina pectoris 3. HTN 4. Hypercholesterolemia 5. Type 2 DM 6. Hypothyroidism 7. CKD 8. LV diastolic dysfunction without evidence of failure 9. Hypnatremia and hypokalemia PLAN: 1. Renal input noted. Correct NA and supplement K 2. Monitor renal function 3. Tentative neurosurgery on 4. Continue Carvedilol 12.5 bid as tolerated 5. Imdur 90 qd and Hydralazine 50 tid, Lipitor 20 qhs 6. Ecotrin has been held prior to spine surgery 7. There is no absolute contraindication for surgery in view of absence of ischemic symptoms, decompensated congestive heart failure and absence of malignant arrhythmias, but NA and K needs to be corrected prior to surgery
[2018-11-28] MEDS: POTASSIUM CHLORIDE 10 MEQ PREMIX IVPB (POTASSIUM RIDER) IVPB SCH ×2 (12:49→14:01)
[2018-11-28] MEDS: SODIUM CHLORIDE 500 ML IV SCH (14:22)
--- NOTE | 2018-11-28 18:08 | PN ---
Progress Note (short form) - Note Progress Note: Renal follow up for ANDRÉS and hyponatremia Pt seen and examined at the bedside no acute complaints feels well no cp, sob, abd pain tolerating oral diet Vital Signs Temperature 97.6 F 11/28/18 17:58 Pulse Rate 71 11/28/18 17:58 Respiratory Rate 18 11/28/18 17:58 Blood Pressure 115/42 L 11/28/18 17:58 O2 Sat by Pulse Oximetry (%) 97 11/28/18 09:00 Intake & Output 11/25/18 11/26/18 11/27/18 11/28/18 23:59 23:59 23:59 23:59 Intake Total 100 2055 1200 Output Total 300 2100 900 Balance -200 -45 300 Weight 76.204 kg NAD RRR, no M/R CTA, no rales or wheeze soft, mild distension, no tenderness No LE edema, clubbing or cyanosis CBC, BMP 11/28/18 06:59 11/28/18 06:59 Current Medications Acetaminophen (Tylenol -) 500 mg PO Q6H PRN PRN Reason: PAIN Last Admin: 11/26/18 22:17 Dose: 500 mg Allopurinol (Zyloprim -) 100 mg PO DAILY [facility] Last Admin: 11/28/18 10:06 Dose: 100 mg Atorvastatin Calcium (Lipitor -) 20 mg PO HS [facility] Last Admin: 11/27/18 21:43 Dose: 20 mg Carvedilol (Coreg -) 12.5 mg PO BID [facility] Last Admin: 11/28/18 10:06 Dose: 12.5 mg Cinacalcet (Sensipar -) 30 mg PO DAILY [facility] Last Admin: 11/28/18 10:07 Dose: 30 mg Gabapentin (Neurontin -) 300 mg PO DAILY [facility] Last Admin: 11/28/18 10:07 Dose: 300 mg Glipizide (Glucotrol -) 5 mg PO TIDAC [facility] Last Admin: 11/28/18 17:01 Dose: 5 mg Hydralazine HCl (Apresoline -) 50 mg PO TID [facility] Last Admin: 11/28/18 14:17 Dose: 50 mg Sodium Chloride (Normal Saline -) 500 mls @ 75 mls/hr IV ASDIR [facility] Last Admin: 11/28/18 14:22 Dose: 75 mls/hr Insulin Aspart (Novolog Vial Sliding Scale -) 1 vial SQ [facility]; Protocol Last Admin: 11/28/18 17:01 Dose: Not Given Insulin Detemir (Levemir Vial) 22 units SQ HS [facility] Last Admin: 11/27/18 21:44 Dose: 22 units Isosorbide Mononitrate (Imdur -) 90 mg PO DAILY [facility] Last Admin: 11/28/18 10:07 Dose: 90 mg Latanoprost (Xalatan 0.005% Eye Drops -) 1 drop OU HS [facility] Last Admin: 11/27/18 23:50 Dose: 1 drop Levothyroxine Sodium (Synthroid -) 50 mcg PO AM [facility] Last Admin: 11/28/18 06:21 Dose: 50 mcg Morphine Sulfate (Morphine Sulfate) 1 mg IVPUSH Q3H PRN PRN Reason: PAIN LEVEL 6-10 Last Admin: 11/27/18 12:04 Dose: 1 mg Polyethylene Glycol (Miralax (For Daily Use) -) 17 gm PO TID [facility] Last Admin: 11/28/18 14:17 Dose: 17 gm Potassium Chloride (K-Dur -) 20 meq PO DAILY [facility] Last Admin: 11/28/18 10:06 Dose: 20 meq Ranitidine HCl (Zantac -) 150 mg PO BID [facility] Last Admin: 11/28/18 10:06 Dose: 150 mg Tamsulosin HCl (Flomax -) 0.4 mg PO DAILY@0830 [facility] Last Admin: 11/28/18 08:53 Dose: 0.4 mg 83 year old [place] woman with history of CKD stage 4 (baseline Cr ~2, eGFR 25-30). CHF (diastolic dysfunction), DM type 2, anemia, hyperlipidemia who presented with generalized weakness and found to have hyponatremia, hypokalemia and ANDRÉS. #ANDRÉS likely due to hypovolemia in setting of diuretic use and poor solute intake #Hypovolemic hyponatremia #Hypokalemia form diuretics and poor oral intake #Metabolic alkalosis (contraction alkalosis) #Diastolic HF w/o evidence of CHF exacerbation #Hx of Anemia (Hgb now WNL but may be due to hemoconcentration) #Cervical radiculopathy Renal function and Na improving with isotonic saline no evidence of CHF/Fluid overload, continue fluids at same rate hold diuretics for now would defer any surgery until electrolyte abnormalities corrected and renal function is near baseline Check PTH, and trend Ca, Phos while on Sensipar No acute need for renal replacement therapy Will follow closely pain control w/o nsaids Thank you Wm Tian DO
[2018-11-28] MEDS ORDERED: INSULIN (NOVOLOG) ASPART 100 UNITS/ML 10ML VIAL ONE (20:41)
[2018-11-28] MEDS: INSULIN (LEVEMIR) 100 UNITS/ML UNITS SQ SCH (21:55)
[2018-11-28] MEDS: ATORVASTATIN CA 20 MG TABLET (FP) PO SCH (21:56)
[2018-11-28] MEDS: LATANOPROST 0.005% OPHTH SOLN 2.5ML BOTTLE OU SCH (22:02)
[2018-11-29] MEDS: ACETAMINOPHEN 500 MG TABLET (FP) PO PRN (01:30)
[2018-11-29] MEDS: INSULIN SLIDING SCALE (NOVOLOG) 1 VIAL SQ SCH ×4 (06:27→21:48)
[2018-11-29] MEDS: POLYETHYLENE GLYCOL 3350 119 GM BTL PO SCH ×3 (06:27→21:46)
[2018-11-29] MEDS: hydrALAZINE HCL 50 MG TABLET (FP) PO SCH ×3 (06:30→21:47)
[2018-11-29] MEDS: LEVOTHYROXINE NA 50 MCG TABLET (FP) PO SCH (06:30)
[2018-11-29 08:52] LABS: BLOOD UREA NITROGEN 78.2 mg/dL (7-18); CALCIUM 8.9 mg/dL (8.5-10.1); CREATININE 2.2 mg/dL (0.55-1.3); MAGNESIUM 2.5 mg/dL (1.8-2.4); PHOSPHOROUS 2.8 mg/dL (2.5-4.9); POTASSIUM 3.5 mmol/L (3.5-5.1)
[2018-11-29] MEDS: RANITIDINE HCL 150 MG TABLET (FP) PO SCH ×2 (09:07→21:48)
[2018-11-29] MEDS: ISOSORBIDE MONONITRATE 30 MG TAB.SR.24H (FP) PO SCH (09:07)
[2018-11-29] MEDS: ALLOPURINOL 100 MG TABLET (FP) PO SCH (09:07)
[2018-11-29] MEDS: POTASSIUM CHLORIDE TABS 20 MEQ TABLET.ER (FP) PO SCH (09:07)
[2018-11-29] MEDS: TAMSULOSIN HCL 0.4 MG CAP PO SCH (09:07)
[2018-11-29] MEDS: CARVEDILOL 6.25 MG TABLET (FP) PO SCH ×2 (09:07→21:47)
[2018-11-29] MEDS: GABAPENTIN 300 MG CAPSULE (FP) PO SCH (09:07)
[2018-11-29] MEDS: glipiZIDE 5 MG TABLET (FP) PO SCH ×3 (09:20→17:01)
--- NOTE | 2018-11-29 10:33 | PN ---
Progress Note (short form) - Note Progress Note: Patient remains Neurologically stable. MRI does not demonstrate new pathology/ acute disc. Discussion with Dr. Su of Anesthesia yesterday resulted in agreement that Sodium should be closer to normal and certainly above 130 prior to proceeding with surgical decompression and stabilization. Sodium level gradually normalizing, now 129. Agree with gradual correction to avoid [place] Myelinolysis. While Cervical spinal cord compression resulting in pain and neurological deficits represents a time sensitive condition, I agree with balancing the risks of delay with the potential benefits of further medical optimization. Will follow and coordinate risk mitigation with rest of team.
[2018-11-29] MEDS ORDERED: PT OWN MED DRAWER 7, Y5N ONE (10:58)
[2018-11-29] MEDS: CINACALCET HCL 30 MG TAB (FP) PO SCH (11:02)
--- NOTE | 2018-11-29 11:47 | PN ---
Progress Note, Physician History of Present Illness: Resting comfortably, denies chest pain or dyspnea. C-spine surgery deferred pending correction of electrolyte abnormalities. - Current Medication List Current Medications: Active Medications Acetaminophen (Tylenol -) 500 mg PO Q6H PRN PRN Reason: PAIN Last Admin: 11/29/18 01:30 Dose: 500 mg Allopurinol (Zyloprim -) 100 mg PO DAILY [facility] Last Admin: 11/29/18 09:07 Dose: 100 mg Atorvastatin Calcium (Lipitor -) 20 mg PO HS [facility] Last Admin: 11/28/18 21:56 Dose: 20 mg Carvedilol (Coreg -) 12.5 mg PO BID [facility] Last Admin: 11/29/18 09:07 Dose: 12.5 mg Cinacalcet (Sensipar -) 30 mg PO DAILY [facility] Last Admin: 11/29/18 11:02 Dose: 30 mg Gabapentin (Neurontin -) 300 mg PO DAILY [facility] Last Admin: 11/29/18 09:07 Dose: 300 mg Glipizide (Glucotrol -) 5 mg PO TIDAC [facility] Last Admin: 11/29/18 09:20 Dose: Not Given Hydralazine HCl (Apresoline -) 50 mg PO TID [facility] Last Admin: 11/29/18 06:30 Dose: 50 mg Sodium Chloride (Normal Saline -) 500 mls @ 75 mls/hr IV ASDIR [facility] Last Admin: 11/28/18 14:22 Dose: 75 mls/hr Insulin Aspart (Novolog Vial Sliding Scale -) 1 vial SQ [facility]; Protocol Last Admin: 11/29/18 06:27 Dose: Not Given Insulin Detemir (Levemir Vial) 22 units SQ [facility] Last Admin: 11/28/18 21:55 Dose: 22 units Isosorbide Mononitrate (Imdur -) 90 mg PO DAILY [facility] Last Admin: 11/29/18 09:07 Dose: 90 mg Latanoprost (Xalatan 0.005% Eye Drops -) 1 drop OU HS [facility] Last Admin: 11/28/18 22:02 Dose: 1 drop Levothyroxine Sodium (Synthroid -) 50 mcg PO AM [facility] Last Admin: 11/29/18 06:30 Dose: 50 mcg Morphine Sulfate (Morphine Sulfate) 1 mg IVPUSH Q3H PRN PRN Reason: PAIN LEVEL 6-10 Last Admin: 11/27/18 12:04 Dose: 1 mg Polyethylene Glycol (Miralax (For Daily Use) -) 17 gm PO TID [facility] Last Admin: 11/29/18 06:27 Dose: Not Given Potassium Chloride (K-Dur -) 20 meq PO DAILY [facility] Last Admin: 11/29/18 09:07 Dose: 20 meq Ranitidine HCl (Zantac -) 150 mg PO BID [facility] Last Admin: 11/29/18 09:07 Dose: 150 mg Tamsulosin HCl (Flomax -) 0.4 mg PO DAILY@0830 [facility] Last Admin: 11/29/18 09:07 Dose: 0.4 mg - Objective Vital Signs: Vital Signs Temperature 98 F 11/29/18 09:00 Pulse Rate 72 11/29/18 09:00 Respiratory Rate 18 11/29/18 09:00 Blood Pressure 104/50 L 11/29/18 09:00 O2 Sat by Pulse Oximetry (%) 100 11/28/18 21:00 Constitutional: Yes: No Distress, Calm Neck: Yes: Supple Cardiovascular: Yes: Regular Rate and Rhythm Respiratory: Yes: Regular, Diminished Gastrointestinal: Yes: Soft, Hypoactive Bowel Sounds Edema: No Labs: CBC, BMP 11/28/18 06:59 11/29/18 07:53 INR, PTT INR 0.97 (0.83-1.09) 11/26/18 15:46 - ....Imaging EKG: Report Reviewed (Tele: [facility]) Problem List - Problems (1) Cervical spondylosis with myelopathy and radiculopathy Code(s): M47.12 - OTHER SPONDYLOSIS WITH MYELOPATHY, CERVICAL REGION; M47.22 - OTHER SPONDYLOSIS WITH RADICULOPATHY, CERVICAL REGION (2) Hypokalemia Code(s): E87.6 - HYPOKALEMIA (3) CAD (coronary artery disease) Code(s): I25.10 - ATHSCL HEART DISEASE OF [place] CORONARY ARTERY W/O ANG PCTRS Qualifiers: Coronary Disease-Associated Artery/Lesion type: [place] artery [place] vs. transplanted heart: [place] heart Associated angina: without angina Qualified Code(s): I25.10 - Atherosclerotic heart disease of [place] coronary artery without angina pectoris (4) Diabetes mellitus Code(s): E11.9 - TYPE 2 DIABETES MELLITUS WITHOUT COMPLICATIONS (5) Hyponatremia Code(s): E87.1 - HYPO-OSMOLALITY AND HYPONATREMIA (6) Non-occlusive coronary artery disease Code(s): I25.10 - ATHSCL HEART DISEASE OF [place] CORONARY ARTERY W/O ANG PCTRS (7) Diabetes mellitus with diabetic cardiomyopathy Code(s): E11.59 - TYPE 2 DIABETES MELLITUS WITH OTH CIRCULATORY COMPLICATIONS; I43 - CARDIOMYOPATHY IN DISEASES CLASSIFIED ELSEWHERE (8) Endothelial dysfunction of coronary artery Code(s): I99.8 - OTHER DISORDER OF CIRCULATORY SYSTEM (9) Hyperlipidemia Code(s): E78.5 - HYPERLIPIDEMIA, UNSPECIFIED Qualifiers: Hyperlipidemia type: pure hypercholesterolemia Qualified Code(s): E78.00 - Pure hypercholesterolemia, unspecified; E78.0 - Pure hypercholesterolemia (10) Hypertension Code(s): I10 - ESSENTIAL (PRIMARY) HYPERTENSION Qualifiers: Hypertension type: essential hypertension Qualified Code(s): I10 - Essential (primary) hypertension (11) Hypothyroidism Code(s): E03.9 - HYPOTHYROIDISM, UNSPECIFIED Qualifiers: Hypothyroidism type: unspecified Qualified Code(s): E03.9 - Hypothyroidism , unspecified (12) [id number] kidney injury Code(s): N17.9 - ACUTE KIDNEY FAILURE, UNSPECIFIED; N18.9 - CHRONIC KIDNEY DISEASE, UNSPECIFIED Assessment/Plan 1. Spinal stenosis, cervical radiculopathy 2. CAD - non-obstructive, angina pectoris 3. HTN 4. Hypercholesterolemia 5. Type 2 DM 6. Hypothyroidism 7. Acute on CKD likely due to hypovolemia in setting of diuretic use and poor solute intake 8. LV diastolic dysfunction without evidence of failure 9. Hypovolemic hyponatremia and hypokalemia PLAN: 1. Renal input noted. Correct NA and supplement K, monitor renal recovery, diuretics held 2. Neurosurgery deferred until electrolyte abnormalities corrected and renal function is near baseline 3. Continue Carvedilol 12.5 bid as tolerated 4. Imdur 90 qd and Hydralazine 50 tid, Lipitor 20 qhs 5. Ecotrin has been held prior to spine surgery 6. There is no absolute contraindication for surgery in view of absence of ischemic symptoms, decompensated congestive heart failure and absence of malignant arrhythmias, but NA and K needs to be corrected and renal fxn close to baseline prior to surgery 7. D/c telemetry
[2018-11-29] MEDS: MORPHINE SULFATE 2 MG/ML VIAL IVPUSH PRN (14:04)
[2018-11-29] MEDS ORDERED: SODIUM CHLORIDE 500 ML IV SCH (15:14)
--- NOTE | 2018-11-29 16:09 | PN ---
Progress Note (short form) - Note Progress Note: Renal follow up for ANDRÉS and hyponatremia Pt seen and examined at the bedside feels better not eating much as per daughter on IVF no sob, orthopnea, PND, cough Vital Signs Temperature 98.1 F 11/29/18 14:00 Pulse Rate 79 11/29/18 14:00 Respiratory Rate 18 11/29/18 09:00 Blood Pressure 133/53 L 11/29/18 14:00 O2 Sat by Pulse Oximetry (%) 100 11/28/18 21:00 Intake & Output 11/26/18 11/27/18 11/28/18 11/29/18 23:59 23:59 23:59 23:59 Intake Total 100 2055 1400 1540 Output Total 300 2100 1500 900 Balance -200 -45 -100 640 Weight 76.204 kg NAD RRR, no M/R CTA, no rales or wheeze soft, mild distension, no tenderness No LE edema, clubbing or cyanosis CBC, BMP 11/28/18 06:59 11/29/18 07:53 Current Medications Acetaminophen (Tylenol -) 500 mg PO Q6H PRN PRN Reason: PAIN Last Admin: 11/29/18 01:30 Dose: 500 mg Allopurinol (Zyloprim -) 100 mg PO DAILY [facility] Last Admin: 11/29/18 09:07 Dose: 100 mg Atorvastatin Calcium (Lipitor -) 20 mg PO HS [facility] Last Admin: 11/28/18 21:56 Dose: 20 mg Carvedilol (Coreg -) 12.5 mg PO BID [facility] Last Admin: 11/29/18 09:07 Dose: 12.5 mg Cinacalcet (Sensipar -) 30 mg PO DAILY [facility] Last Admin: 11/29/18 11:02 Dose: 30 mg Gabapentin (Neurontin -) 300 mg PO DAILY [facility] Last Admin: 11/29/18 09:07 Dose: 300 mg Glipizide (Glucotrol -) 5 mg PO TIDAC [facility] Last Admin: 11/29/18 12:29 Dose: 5 mg Hydralazine HCl (Apresoline -) 50 mg PO TID [facility] Last Admin: 11/29/18 15:55 Dose: 50 mg Sodium Chloride (Normal Saline -) 500 mls @ 50 mls/hr IV ASDIR [facility] Stop: 11/30/18 06:00 Last Admin: 11/29/18 15:55 Dose: 50 mls/hr Insulin Aspart (Novolog Vial Sliding Scale -) 1 vial SQ [facility]; Protocol Last Admin: 11/29/18 12:29 Dose: 2 units Insulin Detemir (Levemir Vial) 22 units SQ HS [facility] Last Admin: 11/28/18 21:55 Dose: 22 units Isosorbide Mononitrate (Imdur -) 90 mg PO DAILY [facility] Last Admin: 11/29/18 09:07 Dose: 90 mg Latanoprost (Xalatan 0.005% Eye Drops -) 1 drop OU HS [facility] Last Admin: 11/28/18 22:02 Dose: 1 drop Levothyroxine Sodium (Synthroid -) 50 mcg PO AM [facility] Last Admin: 11/29/18 06:30 Dose: 50 mcg Morphine Sulfate (Morphine Sulfate) 1 mg IVPUSH Q3H PRN PRN Reason: PAIN LEVEL 6-10 Last Admin: 11/29/18 14:04 Dose: 1 mg Polyethylene Glycol (Miralax (For Daily Use) -) 17 gm PO TID [facility] Last Admin: 11/29/18 14:53 Dose: Not Given Potassium Chloride (K-Dur -) 20 meq PO DAILY [facility] Last Admin: 11/29/18 09:07 Dose: 20 meq Ranitidine HCl (Zantac -) 150 mg PO BID [facility] Last Admin: 11/29/18 09:07 Dose: 150 mg Tamsulosin HCl (Flomax -) 0.4 mg PO DAILY@0830 [facility] Last Admin: 11/29/18 09:07 Dose: 0.4 mg 83 year old [place] woman with history of CKD stage 4 (baseline Cr ~2, eGFR 25-30). CHF (diastolic dysfunction), DM type 2, anemia, hyperlipidemia who presented with generalized weakness and found to have hyponatremia, hypokalemia and ANDRÉS. #ANDRÉS likely due to hypovolemia in setting of diuretic use and poor solute intake #Hypovolemic hyponatremia #Hypokalemia form diuretics and poor oral intake #Metabolic alkalosis (contraction alkalosis) #Diastolic HF w/o evidence of CHF exacerbation #Hx of Anemia (Hgb now WNL but may be due to hemoconcentration) #Cervical radiculopathy Renal function and serum na improving continue IVF at reduced rate until tomorrow morning d/c [place] and trial of void Nephro supplements ordered would defer any surgery until electrolyte abnormalities corrected and renal function is near baseline Will follow closely pain control w/o nsaids Thank you Wm Tian DO
--- NOTE | 2018-11-29 17:03 | PN ---
Progress Note, Physician History of Present Illness: Pt w/o CP, palpitations, SOB, abd pain. - Current Medication List Current Medications: Active Medications Acetaminophen (Tylenol -) 500 mg PO Q6H PRN PRN Reason: PAIN Last Admin: 11/29/18 01:30 Dose: 500 mg Allopurinol (Zyloprim -) 100 mg PO DAILY [facility] Last Admin: 11/29/18 09:07 Dose: 100 mg Atorvastatin Calcium (Lipitor -) 20 mg PO HS [facility] Last Admin: 11/28/18 21:56 Dose: 20 mg Carvedilol (Coreg -) 12.5 mg PO BID [facility] Last Admin: 11/29/18 09:07 Dose: 12.5 mg Cinacalcet (Sensipar -) 30 mg PO DAILY [facility] Last Admin: 11/29/18 11:02 Dose: 30 mg Gabapentin (Neurontin -) 300 mg PO DAILY [facility] Last Admin: 11/29/18 09:07 Dose: 300 mg Glipizide (Glucotrol -) 5 mg PO TIDAC [facility] Last Admin: 11/29/18 17:01 Dose: 5 mg Hydralazine HCl (Apresoline -) 50 mg PO TID [facility] Last Admin: 11/29/18 15:55 Dose: 50 mg Sodium Chloride (Normal Saline -) 500 mls @ 50 mls/hr IV ASDIR [facility] Stop: 11/30/18 06:00 Last Admin: 11/29/18 15:55 Dose: 50 mls/hr Insulin Aspart (Novolog Vial Sliding Scale -) 1 vial SQ [facility]; Protocol Last Admin: 11/29/18 17:01 Dose: 2 units Insulin Detemir (Levemir Vial) 22 units SQ [facility] Last Admin: 11/28/18 21:55 Dose: 22 units Isosorbide Mononitrate (Imdur -) 90 mg PO DAILY [facility] Last Admin: 11/29/18 09:07 Dose: 90 mg Latanoprost (Xalatan 0.005% Eye Drops -) 1 drop OU HS [facility] Last Admin: 11/28/18 22:02 Dose: 1 drop Levothyroxine Sodium (Synthroid -) 50 mcg PO AM [facility] Last Admin: 11/29/18 06:30 Dose: 50 mcg Morphine Sulfate (Morphine Sulfate) 1 mg IVPUSH Q3H PRN PRN Reason: PAIN LEVEL 6-10 Last Admin: 11/29/18 14:04 Dose: 1 mg Polyethylene Glycol (Miralax (For Daily Use) -) 17 gm PO TID [facility] Last Admin: 11/29/18 14:53 Dose: Not Given Potassium Chloride (K-Dur -) 20 meq PO DAILY [facility] Last Admin: 11/29/18 09:07 Dose: 20 meq Ranitidine HCl (Zantac -) 150 mg PO BID [facility] Last Admin: 11/29/18 09:07 Dose: 150 mg Tamsulosin HCl (Flomax -) 0.4 mg PO DAILY@0830 [facility] Last Admin: 11/29/18 09:07 Dose: 0.4 mg - Objective Vital Signs: Vital Signs Temperature 98.1 F 11/29/18 14:00 Pulse Rate 79 11/29/18 14:00 Respiratory Rate 18 11/29/18 09:00 Blood Pressure 133/53 L 11/29/18 14:00 O2 Sat by Pulse Oximetry (%) 100 11/28/18 21:00 Constitutional: Yes: No Distress, Calm Cardiovascular: Yes: Regular Rate and Rhythm, S1, S2 Respiratory: Yes: Regular, CTA Bilaterally. No: Rales Gastrointestinal: Yes: Normal Bowel Sounds, Soft. No: Tenderness Edema: No Neurological: Yes: Alert, Oriented Labs: CBC, BMP 11/28/18 06:59 11/29/18 07:53 INR, PTT INR 0.97 (0.83-1.09) 11/26/18 15:46 Problem List - Problems (1) Cervical spondylosis with myelopathy and radiculopathy Code(s): M47.12 - OTHER SPONDYLOSIS WITH MYELOPATHY, CERVICAL REGION; M47.22 - OTHER SPONDYLOSIS WITH RADICULOPATHY, CERVICAL REGION (2) Impaired gait Code(s): R26.9 - UNSPECIFIED ABNORMALITIES OF GAIT AND MOBILITY (3) ANDRÉS (acute kidney injury) Code(s): N17.9 - ACUTE KIDNEY FAILURE, UNSPECIFIED (4) CAD (coronary artery disease) Code(s): I25.10 - ATHSCL HEART DISEASE OF [place] CORONARY ARTERY W/O ANG PCTRS Qualifiers: Coronary Disease-Associated Artery/Lesion type: [place] artery [place] vs. transplanted heart: [place] heart Associated angina: without angina Qualified Code(s): I25.10 - Atherosclerotic heart disease of [place] coronary artery without angina pectoris (5) Diabetes mellitus Code(s): E11.9 - TYPE 2 DIABETES MELLITUS WITHOUT COMPLICATIONS (6) Hyponatremia Code(s): E87.1 - HYPO-OSMOLALITY AND HYPONATREMIA (7) Acute renal failure Code(s): N17.9 - ACUTE KIDNEY FAILURE, UNSPECIFIED Qualifiers: Acute renal failure type: unspecified Qualified Code(s): N17.9 - Acute kidney failure, unspecified (8) Hypokalemia Code(s): E87.6 - HYPOKALEMIA Assessment/Plan Admitted to monitored bed. Improvement in Na and K Renal, NeuroSx, Cardiology (pt's condition was d/w Dr. Arroyo) consults are appreciated IVF hydration AM labs Pt can be transferred to medical floor. Pt's condition was reviewed with his nurse at bedside. Pt is not cleared for surgery -pt would be followed up daily and preop clearance status would be revisited.
[2018-11-29] MEDS: INSULIN (LEVEMIR) 100 UNITS/ML UNITS SQ SCH (21:48)
[2018-11-29] MEDS: ATORVASTATIN CA 20 MG TABLET (FP) PO SCH (21:48)
[2018-11-30] MEDS: LATANOPROST 0.005% OPHTH SOLN 2.5ML BOTTLE OU SCH ×2 (01:00→21:02)
[2018-11-30 06:59] LABS: BASO % 0.6 % (0-2.0); EOS % 21.9 % (0-4.5); HEMATOCRIT 31.2 % (32.4-45.2); HEMOGLOBIN 10.4 GM/dL (10.7-15.3); LYMPH % 15.7 % (8-40); MCH 26.7 pg (25.7-33.7); MCHC 33.2 g/dl (32.0-36.0); MEAN CELL VOLUME 80.5 fl (80-96); MEAN PLT VOLUME 7.8 fl (7.5-11.1); MONO % 12.1 % (3.8-10.2); NEUT % 49.7 % (42.8-82.8); PLATELET COUNT 220 K/MM3 (134-434); RBC 3.88 M/mm3 (3.60-5.2); RDW 18.5 % (11.6-15.6); WHITE BLOOD COUNT 10.2 K/mm3 (4.0-10.0)
[2018-11-30] MEDS: glipiZIDE 5 MG TABLET (FP) PO SCH ×3 (07:00→18:29)
[2018-11-30] MEDS: INSULIN SLIDING SCALE (NOVOLOG) 1 VIAL SQ SCH ×5 (07:00→21:00)
[2018-11-30] MEDS: hydrALAZINE HCL 50 MG TABLET (FP) PO SCH ×3 (07:00→21:01)
[2018-11-30] MEDS: LEVOTHYROXINE NA 50 MCG TABLET (FP) PO SCH (07:00)
[2018-11-30] MEDS: POLYETHYLENE GLYCOL 3350 119 GM BTL PO SCH ×3 (07:05→21:02)
[2018-11-30 07:27] LABS: BLOOD UREA NITROGEN 66.1 mg/dL (7-18); CALCIUM 8.7 mg/dL (8.5-10.1); MAGNESIUM 2.4 mg/dL (1.8-2.4); PHOSPHOROUS 2.4 mg/dL (2.5-4.9); POTASSIUM 3.9 mmol/L (3.5-5.1)
[2018-11-30] MEDS ORDERED: INSULIN (NOVOLOG) ASPART 100 UNITS/ML 10ML VIAL ONE ×2 (08:00→20:45)
[2018-11-30] MEDS: TAMSULOSIN HCL 0.4 MG CAP PO SCH (09:00)
--- NOTE | 2018-11-30 09:59 | PN ---
Progress Note (short form) - Note Progress Note: Patient remains stable. Sodium equals 134. Patient remains non-ambulatory. Will consider surgery on Monday only if all medical practitioners are in agreement that she is optimize.
--- NOTE | 2018-11-30 10:33 | PN ---
Progress Note, Physician History of Present Illness: Resting comfortably, denies chest pain or dyspnea. C-spine surgery deferred pending correction of electrolyte abnormalities. - Current Medication List Current Medications: Active Medications Acetaminophen (Tylenol -) 500 mg PO Q6H PRN PRN Reason: PAIN Last Admin: 11/29/18 01:30 Dose: 500 mg Allopurinol (Zyloprim -) 100 mg PO DAILY [facility] Last Admin: 11/29/18 09:07 Dose: 100 mg Atorvastatin Calcium (Lipitor -) 20 mg PO HS [facility] Last Admin: 11/29/18 21:48 Dose: 20 mg Carvedilol (Coreg -) 12.5 mg PO BID [facility] Last Admin: 11/29/18 21:47 Dose: 12.5 mg Cinacalcet (Sensipar -) 30 mg PO DAILY [facility] Last Admin: 11/29/18 11:02 Dose: 30 mg Gabapentin (Neurontin -) 300 mg PO DAILY [facility] Last Admin: 11/29/18 09:07 Dose: 300 mg Glipizide (Glucotrol -) 5 mg PO TIDAC [facility] Last Admin: 11/30/18 07:00 Dose: 5 mg Hydralazine HCl (Apresoline -) 50 mg PO TID [facility] Last Admin: 11/30/18 07:00 Dose: 50 mg Insulin Aspart (Novolog Vial Sliding Scale -) 1 vial SQ [facility]; Protocol Last Admin: 11/30/18 07:00 Dose: Not Given Insulin Detemir (Levemir Vial) [address] [facility] Last Admin: 11/29/18 21:48 Dose: 22 units Isosorbide Mononitrate (Imdur -) 90 mg PO DAILY [facility] Last Admin: 11/29/18 09:07 Dose: 90 mg Latanoprost (Xalatan 0.005% Eye Drops -) [address] [facility] Last Admin: 11/30/18 01:00 Dose: 1 drop Levothyroxine Sodium (Synthroid -) 50 mcg PO AM [facility] Last Admin: 11/30/18 07:00 Dose: 50 mcg Polyethylene Glycol (Miralax (For Daily Use) -) 17 gm PO TID [facility] Last Admin: 11/30/18 07:05 Dose: 17 gm Potassium Chloride (K-Dur -) 20 meq PO DAILY [facility] Last Admin: 11/29/18 09:07 Dose: 20 meq Ranitidine HCl (Zantac -) 150 mg PO BID [facility] Last Admin: 11/29/18 21:48 Dose: 150 mg Tamsulosin HCl (Flomax -) 0.4 mg PO DAILY@0830 [facility] Last Admin: 11/29/18 09:07 Dose: 0.4 mg - Objective Vital Signs: Vital Signs Temperature 98.3 F 11/30/18 06:00 Pulse Rate 72 11/30/18 06:00 Respiratory Rate 20 11/30/18 06:00 Blood Pressure 110/53 L 11/30/18 06:00 O2 Sat by Pulse Oximetry (%) 98 11/29/18 21:00 Constitutional: Yes: No Distress, Calm Neck: Yes: Supple Cardiovascular: Yes: Regular Rate and Rhythm Respiratory: Yes: Regular, Diminished Gastrointestinal: Yes: Normal Bowel Sounds, Soft, Abdomen, Obese Edema: No Labs: CBC, BMP 11/30/18 05:22 11/30/18 05:22 INR, PTT INR 0.97 (0.83-1.09) 11/26/18 15:46 - ....Imaging EKG: Report Reviewed (Tele: [facility]) Problem List - Problems (1) Cervical spondylosis with myelopathy and radiculopathy Code(s): M47.12 - OTHER SPONDYLOSIS WITH MYELOPATHY, CERVICAL REGION; M47.22 - OTHER SPONDYLOSIS WITH RADICULOPATHY, CERVICAL REGION (2) Hypokalemia Code(s): E87.6 - HYPOKALEMIA (3) CAD (coronary artery disease) Code(s): I25.10 - ATHSCL HEART DISEASE OF [place] CORONARY ARTERY W/O ANG PCTRS Qualifiers: Coronary Disease-Associated Artery/Lesion type: [place] artery [place] vs. transplanted heart: [place] heart Associated angina: without angina Qualified Code(s): I25.10 - Atherosclerotic heart disease of [place] coronary artery without angina pectoris (4) Diabetes mellitus Code(s): E11.9 - TYPE 2 DIABETES MELLITUS WITHOUT COMPLICATIONS (5) Hyponatremia Code(s): E87.1 - HYPO-OSMOLALITY AND HYPONATREMIA (6) Non-occlusive coronary artery disease Code(s): I25.10 - ATHSCL HEART DISEASE OF [place] CORONARY ARTERY W/O ANG PCTRS (7) Diabetes mellitus with diabetic cardiomyopathy Code(s): E11.59 - TYPE 2 DIABETES MELLITUS WITH OTH CIRCULATORY COMPLICATIONS; I43 - CARDIOMYOPATHY IN DISEASES CLASSIFIED ELSEWHERE (8) Endothelial dysfunction of coronary artery Code(s): I99.8 - OTHER DISORDER OF CIRCULATORY SYSTEM (9) Hyperlipidemia Code(s): E78.5 - HYPERLIPIDEMIA, UNSPECIFIED Qualifiers: Hyperlipidemia type: pure hypercholesterolemia Qualified Code(s): E78.00 - Pure hypercholesterolemia, unspecified; E78.0 - Pure hypercholesterolemia (10) Hypertension Code(s): I10 - ESSENTIAL (PRIMARY) HYPERTENSION Qualifiers: Hypertension type: essential hypertension Qualified Code(s): I10 - Essential (primary) hypertension (11) Hypothyroidism Code(s): E03.9 - HYPOTHYROIDISM, UNSPECIFIED Qualifiers: Hypothyroidism type: unspecified Qualified Code(s): E03.9 - Hypothyroidism , unspecified (12) Izwil-eu-ntbdoni kidney injury Code(s): N17.9 - ACUTE KIDNEY FAILURE, UNSPECIFIED; N18.9 - CHRONIC KIDNEY DISEASE, UNSPECIFIED Assessment/Plan 1. Spinal stenosis, cervical radiculopathy 2. CAD - non-obstructive, angina pectoris 3. HTN 4. Hypercholesterolemia 5. Type 2 DM 6. Hypothyroidism 7. Acute on CKD likely due to hypovolemia in setting of diuretic use and poor solute intake 8. LV diastolic dysfunction without evidence of failure 9. Hypovolemic hyponatremia and hypokalemia PLAN: 1. Renal input noted. Correcting NA and supplementing K, monitor renal recovery , diuretics held 2. Neurosurgery deferred until electrolyte abnormalities corrected and renal function is near baseline 3. Continue Carvedilol 12.5 bid as tolerated 4. Imdur 90 qd and Hydralazine 50 tid, Lipitor 20 qhs 5. Ecotrin has been held prior to spine surgery 6. There is no absolute contraindication for surgery in view of absence of ischemic symptoms, decompensated congestive heart failure and absence of malignant arrhythmias, but NA and K needs to be corrected and renal fxn close to baseline prior to surgery 7. D/c telemetry
[2018-11-30] MEDS: ISOSORBIDE MONONITRATE 30 MG TAB.SR.24H (FP) PO SCH (10:41)
[2018-11-30] MEDS: CARVEDILOL 6.25 MG TABLET (FP) PO SCH (10:42)
[2018-11-30] MEDS: GABAPENTIN 300 MG CAPSULE (FP) PO SCH (10:42)
[2018-11-30] MEDS: RANITIDINE HCL 150 MG TABLET (FP) PO SCH ×2 (10:43→21:11)
[2018-11-30] MEDS: POTASSIUM CHLORIDE TABS 20 MEQ TABLET.ER (FP) PO SCH (10:43)
[2018-11-30] MEDS: ALLOPURINOL 100 MG TABLET (FP) PO SCH (10:43)
[2018-11-30] MEDS: CINACALCET HCL 30 MG TAB (FP) PO SCH (10:44)
--- NOTE | 2018-11-30 10:51 | PN ---
Progress Note, Physician History of Present Illness: Pt w/o CP, palpitations, SOB, abd pain. Pt feels tired today (couldn't sleep well last night). - Current Medication List Current Medications: Active Medications Acetaminophen (Tylenol -) 500 mg PO Q6H PRN PRN Reason: PAIN Last Admin: 11/29/18 01:30 Dose: 500 mg Allopurinol (Zyloprim -) 100 mg PO DAILY [facility] Last Admin: 11/30/18 10:43 Dose: 100 mg Atorvastatin Calcium (Lipitor -) 20 mg PO HS [facility] Last Admin: 11/29/18 21:48 Dose: 20 mg Carvedilol (Coreg -) 12.5 mg PO BID [facility] Last Admin: 11/30/18 10:42 Dose: 12.5 mg Cinacalcet (Sensipar -) 30 mg PO DAILY [facility] Last Admin: 11/30/18 10:44 Dose: 30 mg Gabapentin (Neurontin -) 300 mg PO DAILY [facility] Last Admin: 11/30/18 10:42 Dose: 300 mg Glipizide (Glucotrol -) 5 mg PO TIDAC [facility] Last Admin: 11/30/18 10:43 Dose: 5 mg Hydralazine HCl (Apresoline -) 50 mg PO TID [facility] Last Admin: 11/30/18 07:00 Dose: 50 mg Insulin Aspart (Novolog Vial Sliding Scale -) 1 vial SQ [facility]; Protocol Last Admin: 11/30/18 07:00 Dose: Not Given Insulin Detemir (Levemir Vial) 22 units SQ [facility] Last Admin: 11/29/18 21:48 Dose: 22 units Isosorbide Mononitrate (Imdur -) 90 mg PO DAILY [facility] Last Admin: 11/30/18 10:41 Dose: 90 mg Latanoprost (Xalatan 0.005% Eye Drops -) 1 drop OU HS [facility] Last Admin: 11/30/18 01:00 Dose: 1 drop Levothyroxine Sodium (Synthroid -) 50 mcg PO AM [facility] Last Admin: 11/30/18 07:00 Dose: 50 mcg Polyethylene Glycol (Miralax (For Daily Use) -) 17 gm PO TID [facility] Last Admin: 11/30/18 07:05 Dose: 17 gm Potassium Chloride (K-Dur -) 20 meq PO DAILY [facility] Last Admin: 11/30/18 10:43 Dose: 20 meq Ranitidine HCl (Zantac -) 150 mg PO BID [facility] Last Admin: 11/30/18 10:43 Dose: 150 mg Tamsulosin HCl (Flomax -) 0.4 mg PO DAILY@0830 [facility] Last Admin: 11/30/18 09:00 Dose: 0.4 mg - Objective Vital Signs: Vital Signs Temperature 98.3 F 11/30/18 06:00 Pulse Rate 72 11/30/18 06:00 Respiratory Rate 20 11/30/18 06:00 Blood Pressure 110/53 L 11/30/18 06:00 O2 Sat by Pulse Oximetry (%) 98 11/29/18 21:00 Constitutional: Yes: No Distress, Calm Cardiovascular: Yes: Regular Rate and Rhythm, S1, S2 Respiratory: Yes: Regular, CTA Bilaterally. No: Rales Gastrointestinal: Yes: Normal Bowel Sounds, Soft, Abdomen, Obese. No: Tenderness Neurological: Yes: Alert, Oriented Labs: CBC, BMP 11/30/18 05:22 11/30/18 05:22 INR, PTT INR 0.97 (0.83-1.09) 11/26/18 15:46 Problem List - Problems (1) Cervical spondylosis with myelopathy and radiculopathy Code(s): M47.12 - OTHER SPONDYLOSIS WITH MYELOPATHY, CERVICAL REGION; M47.22 - OTHER SPONDYLOSIS WITH RADICULOPATHY, CERVICAL REGION (2) Impaired gait Code(s): R26.9 - UNSPECIFIED ABNORMALITIES OF GAIT AND MOBILITY (3) ANDRÉS (acute kidney injury) Code(s): N17.9 - ACUTE KIDNEY FAILURE, UNSPECIFIED (4) CAD (coronary artery disease) Code(s): I25.10 - ATHSCL HEART DISEASE OF [place] CORONARY ARTERY W/O ANG PCTRS Qualifiers: Coronary Disease-Associated Artery/Lesion type: [place] artery [place] vs. transplanted heart: tribal heart Associated angina: without angina Qualified Code(s): I25.10 - Atherosclerotic heart disease of [place] coronary artery without angina pectoris (5) Diabetes mellitus Code(s): E11.9 - TYPE 2 DIABETES MELLITUS WITHOUT COMPLICATIONS (6) Hyponatremia Code(s): E87.1 - HYPO-OSMOLALITY AND HYPONATREMIA (7) Acute renal failure Code(s): N17.9 - ACUTE KIDNEY FAILURE, UNSPECIFIED Qualifiers: Acute renal failure type: unspecified Qualified Code(s): N17.9 - Acute kidney failure, unspecified (8) Hypokalemia Code(s): E87.6 - HYPOKALEMIA Assessment/Plan Admitted to monitored bed. Improvement in Na and K Renal, NeuroSx, Cardiology (pt's condition was d/w Dr. Arroyo) consults are appreciated IVF hydration AM labs Pt's condition was reviewed with his nurse at bedside. Can proceed with C spine surgery.
[2018-11-30 11:23] LABS: ANISOCYTOSIS 1+; MACROCYTOSIS 0; PLATELET ESTIMATE NORMAL
--- NOTE | 2018-11-30 13:37 | PN ---
Progress Note (short form) - Note Progress Note: Renal follow up for ANDRÉS and hyponatremia Pt seen and examined at the bedside felt dizzy this am after having BM no sob, cp, abd pain, cough, fever or chills Vital Signs Temperature 98.3 F 11/30/18 06:00 Pulse Rate 72 11/30/18 06:00 Respiratory Rate 20 11/30/18 06:00 Blood Pressure 110/53 L 11/30/18 06:00 O2 Sat by Pulse Oximetry (%) 98 11/29/18 21:00 Intake & Output 11/27/18 11/28/18 11/29/18 11/30/18 23:59 23:59 23:59 23:59 Intake Total 2055 1400 1940 650 Output Total 2100 1500 1350 Balance -45 -100 590 650 NAD RRR, no M/R CTA, no rales or wheeze soft, mild distension, no tenderness No LE edema, clubbing or cyanosis CBC, BMP 11/30/18 05:22 11/30/18 05:22 Current Medications Acetaminophen (Tylenol -) 500 mg PO Q6H PRN PRN Reason: PAIN Last Admin: 11/29/18 01:30 Dose: 500 mg Allopurinol (Zyloprim -) 100 mg PO DAILY [facility] Last Admin: 11/30/18 10:43 Dose: 100 mg Atorvastatin Calcium (Lipitor -) 20 mg PO HS [facility] Last Admin: 11/29/18 21:48 Dose: 20 mg Carvedilol (Coreg -) 12.5 mg PO BID [facility] Last Admin: 11/30/18 10:42 Dose: 12.5 mg Cinacalcet (Sensipar -) 30 mg PO DAILY [facility] Last Admin: 11/30/18 10:44 Dose: 30 mg Gabapentin (Neurontin -) 300 mg PO DAILY [facility] Last Admin: 11/30/18 10:42 Dose: 300 mg Glipizide (Glucotrol -) 5 mg PO TIDAC [facility] Last Admin: 11/30/18 10:43 Dose: 5 mg Hydralazine HCl (Apresoline -) 50 mg PO TID [facility] Last Admin: 11/30/18 07:00 Dose: 50 mg Insulin Aspart (Novolog Vial Sliding Scale -) 1 vial SQ [facility]; Protocol Last Admin: 11/30/18 07:00 Dose: Not Given Insulin Detemir (Levemir Vial) 22 units SQ HS [facility] Last Admin: 11/29/18 21:48 Dose: 22 units Isosorbide Mononitrate (Imdur -) 90 mg PO DAILY [facility] Last Admin: 11/30/18 10:41 Dose: 90 mg Latanoprost (Xalatan 0.005% Eye Drops -) 1 drop OU HS [facility] Last Admin: 11/30/18 01:00 Dose: 1 drop Levothyroxine Sodium (Synthroid -) 50 mcg PO AM [facility] Last Admin: 11/30/18 07:00 Dose: 50 mcg Polyethylene Glycol (Miralax (For Daily Use) -) 17 gm PO TID [facility] Last Admin: 11/30/18 07:05 Dose: 17 gm Potassium Chloride (K-Dur -) 20 meq PO DAILY [facility] Last Admin: 11/30/18 10:43 Dose: 20 meq Ranitidine HCl (Zantac -) 150 mg PO BID [facility] Last Admin: 11/30/18 10:43 Dose: 150 mg Tamsulosin HCl (Flomax -) 0.4 mg PO DAILY@0830 [facility] Last Admin: 11/30/18 09:00 Dose: 0.4 mg 83 year old [place] woman with history of CKD stage 4 (baseline Cr ~2, eGFR 25-30). CHF (diastolic dysfunction), DM type 2, anemia, hyperlipidemia who presented with generalized weakness and found to have hyponatremia, hypokalemia and ANDRÉS. #ANDRÉS likely due to hypovolemia in setting of diuretic use and poor solute intake #Hypovolemic hyponatremia #Hypokalemia form diuretics and poor oral intake #Metabolic alkalosis (contraction alkalosis) #Diastolic HF w/o evidence of CHF exacerbation #Hx of Anemia (Hgb now WNL but may be due to hemoconcentration) #Cervical radiculopathy Renal function and sodium improved off IVF since this am oral intake as tolerated johnston removed Nephro supplements ordered pain control w/o nsaids BP is at goal and pt has dizziness, will decrease hydralazine to 25mg BID Thank you Wm Tian DO
[2018-11-30] MEDS: INSULIN (LEVEMIR) 100 UNITS/ML UNITS SQ SCH (21:00)
[2018-11-30] MEDS: CARVEDILOL 12.5 MG TABLET (FP) PO SCH (21:01)
[2018-11-30] MEDS: ATORVASTATIN CA 20 MG TABLET (FP) PO SCH (21:01)
[2018-12-01] MEDS: hydrALAZINE HCL 50 MG TABLET (FP) PO SCH ×3 (05:57→21:28)
[2018-12-01] MEDS: POLYETHYLENE GLYCOL 3350 119 GM BTL PO SCH ×3 (05:57→21:32)
[2018-12-01] MEDS: INSULIN SLIDING SCALE (NOVOLOG) 1 VIAL SQ SCH ×4 (05:59→21:28)
[2018-12-01] MEDS: glipiZIDE 5 MG TABLET (FP) PO SCH ×3 (05:59→17:05)
[2018-12-01] MEDS: LEVOTHYROXINE NA 50 MCG TABLET (FP) PO SCH (06:00)
[2018-12-01] MEDS ORDERED: PT OWN MED DRAWER 7, Y5N ONE (06:13)
[2018-12-01 07:40] LABS: BASO % 0.5 % (0-2.0); EOS % 13.7 % (0-4.5); HEMOGLOBIN 10.7 GM/dL (10.7-15.3); LYMPH % 10.6 % (8-40); MCH 26.6 pg (25.7-33.7); MCHC 33.3 g/dl (32.0-36.0); MEAN CELL VOLUME 79.8 fl (80-96); MEAN PLT VOLUME 7.7 fl (7.5-11.1); MONO % 8.7 % (3.8-10.2); NEUT % 66.5 % (42.8-82.8); PLATELET COUNT 246 K/MM3 (134-434); RBC 4.01 M/mm3 (3.60-5.2); RDW 18.6 % (11.6-15.6); WHITE BLOOD COUNT 12.7 K/mm3 (4.0-10.0)
[2018-12-01 08:12] LABS: BLOOD UREA NITROGEN 45.6 mg/dL (7-18); CALCIUM 9.2 mg/dL (8.5-10.1); CREATININE 1.7 mg/dL (0.55-1.3); MAGNESIUM 2.2 mg/dL (1.8-2.4); PHOSPHOROUS 2.2 mg/dL (2.5-4.9)
[2018-12-01] MEDS: TAMSULOSIN HCL 0.4 MG CAP PO SCH (10:06)
[2018-12-01] MEDS: ALLOPURINOL 100 MG TABLET (FP) PO SCH (10:06)
[2018-12-01] MEDS: POTASSIUM CHLORIDE TABS 20 MEQ TABLET.ER (FP) PO SCH (10:06)
[2018-12-01] MEDS: GABAPENTIN 300 MG CAPSULE (FP) PO SCH (10:06)
[2018-12-01] MEDS: ISOSORBIDE MONONITRATE 30 MG TAB.SR.24H (FP) PO SCH (10:07)
[2018-12-01] MEDS: CARVEDILOL 12.5 MG TABLET (FP) PO SCH ×2 (10:08→21:28)
[2018-12-01] MEDS: CINACALCET HCL 30 MG TAB (FP) PO SCH (10:08)
[2018-12-01] MEDS: RANITIDINE HCL 150 MG TABLET (FP) PO SCH ×2 (10:08→21:28)
[2018-12-01] MEDS ORDERED: INSULIN (NOVOLOG) ASPART 100 UNITS/ML 10ML VIAL ONE (11:13)
--- NOTE | 2018-12-01 12:11 | PN ---
Progress Note, Physician History of Present Illness: Pt w/o CP, palpitations, SOB, abd pain. Pt feels less tired today. - Current Medication List Current Medications: Active Medications Acetaminophen (Tylenol -) 500 mg PO Q6H PRN PRN Reason: PAIN Allopurinol (Zyloprim -) 100 mg PO DAILY [facility] Last Admin: 12/01/18 10:06 Dose: 100 mg Atorvastatin Calcium (Lipitor -) 20 mg PO [facility] Last Admin: 11/30/18 21:01 Dose: 20 mg Carvedilol (Coreg -) 12.5 mg PO BID [facility] Last Admin: 12/01/18 10:08 Dose: 12.5 mg Cinacalcet (Sensipar -) 30 mg PO DAILY [facility] Last Admin: 12/01/18 10:08 Dose: 30 mg Gabapentin (Neurontin -) 300 mg PO DAILY [facility] Last Admin: 12/01/18 10:06 Dose: 300 mg Glipizide (Glucotrol -) 5 mg PO TIDAC [facility] Last Admin: 12/01/18 05:59 Dose: 5 mg Hydralazine HCl (Apresoline -) 50 mg PO TID [facility] Last Admin: 12/01/18 05:57 Dose: 50 mg Insulin Aspart (Novolog Vial Sliding Scale -) 1 vial SQ [facility]; Protocol Last Admin: 12/01/18 11:11 Dose: 2 units Insulin Detemir (Levemir Vial) 22 units SQ [facility] Last Admin: 11/30/18 21:00 Dose: 22 units Isosorbide Mononitrate (Imdur -) 90 mg PO DAILY [facility] Last Admin: 12/01/18 10:07 Dose: 90 mg Latanoprost (Xalatan 0.005% Eye Drops -) 1 drop OU [facility] Last Admin: 11/30/18 21:02 Dose: 1 drop Levothyroxine Sodium (Synthroid -) 50 mcg PO AM [facility] Last Admin: 12/01/18 06:00 Dose: 50 mcg Polyethylene Glycol (Miralax (For Daily Use) -) 17 gm PO TID [facility] Last Admin: 12/01/18 05:57 Dose: 17 grams Potassium Chloride (K-Dur -) 20 meq PO DAILY [facility] Last Admin: 12/01/18 10:06 Dose: 20 meq Ranitidine HCl (Zantac -) 150 mg PO BID [facility] Last Admin: 06/15/19 10:08 Dose: 150 mg Tamsulosin HCl (Flomax -) 0.4 mg PO DAILY@0830 [facility] Last Admin: 12/01/18 10:06 Dose: 0.4 mg - Objective Vital Signs: Vital Signs Temperature 98.2 F 12/01/18 06:00 Pulse Rate 82 12/01/18 06:00 Respiratory Rate 18 12/01/18 06:00 Blood Pressure 123/66 12/01/18 06:00 O2 Sat by Pulse Oximetry (%) 97 11/30/18 21:00 Constitutional: Yes: No Distress, Calm Cardiovascular: Yes: Regular Rate and Rhythm, S1, S2 Respiratory: Yes: Regular, CTA Bilaterally. No: Rales Gastrointestinal: Yes: Normal Bowel Sounds, Soft. No: Tenderness Edema: No Neurological: Yes: Alert, Oriented Labs: CBC, BMP 12/01/18 06:00 12/01/18 06:00 INR, PTT INR 0.97 (0.83-1.09) 11/26/18 15:46 Problem List - Problems (1) Cervical spondylosis with myelopathy and radiculopathy Code(s): M47.12 - OTHER SPONDYLOSIS WITH MYELOPATHY, CERVICAL REGION; M47.22 - OTHER SPONDYLOSIS WITH RADICULOPATHY, CERVICAL REGION (2) Impaired gait Code(s): R26.9 - UNSPECIFIED ABNORMALITIES OF GAIT AND MOBILITY (3) ANDRÉS (acute kidney injury) Code(s): N17.9 - ACUTE KIDNEY FAILURE, UNSPECIFIED (4) CAD (coronary artery disease) Code(s): I25.10 - ATHSCL HEART DISEASE OF [place] CORONARY ARTERY W/O ANG PCTRS Qualifiers: Coronary Disease-Associated Artery/Lesion type: [place] artery [place] vs. transplanted heart: [place] heart Associated angina: without angina Qualified Code(s): I25.10 - Atherosclerotic heart disease of [place] coronary artery without angina pectoris (5) Diabetes mellitus Code(s): E11.9 - TYPE 2 DIABETES MELLITUS WITHOUT COMPLICATIONS (6) Hyponatremia Code(s): E87.1 - HYPO-OSMOLALITY AND HYPONATREMIA (7) Acute renal failure Code(s): N17.9 - ACUTE KIDNEY FAILURE, UNSPECIFIED Qualifiers: Acute renal failure type: unspecified Qualified Code(s): N17.9 - Acute kidney failure, unspecified (8) Hypokalemia Code(s): E87.6 - HYPOKALEMIA (9) Leukocytosis Assessment/Plan: To monitor in AM Code(s): D72.829 - ELEVATED WHITE BLOOD CELL COUNT, UNSPECIFIED Assessment/Plan Admitted to monitored bed. Improvement in Na and K Renal, NeuroSx, Cardiology (pt's condition was d/w Dr. Arroyo) consults are appreciated AM labs Pt's condition was reviewed with his nurse at bedside. Can proceed with C spine surgery.
--- NOTE | 2018-12-01 17:15 | PN ---
Progress Note (short form) - Note Progress Note: ckd s/p julita hyponatremia volume depletion s/p IV hydration Current Medications Acetaminophen (Tylenol -) 500 mg PO Q6H PRN PRN Reason: PAIN Allopurinol (Zyloprim -) 100 mg PO DAILY [facility] Last Admin: 12/01/18 10:06 Dose: 100 mg Atorvastatin Calcium (Lipitor -) 20 mg PO [facility] Last Admin: 11/30/18 21:01 Dose: 20 mg Carvedilol (Coreg -) 12.5 mg PO BID [facility] Last Admin: 12/01/18 10:08 Dose: 12.5 mg Cinacalcet (Sensipar -) 30 mg PO DAILY [facility] Last Admin: 12/01/18 10:08 Dose: 30 mg Gabapentin (Neurontin -) 300 mg PO DAILY [facility] Last Admin: 12/01/18 10:06 Dose: 300 mg Glipizide (Glucotrol -) 5 mg PO TIDAC [facility] Last Admin: 12/01/18 17:05 Dose: 5 mg Hydralazine HCl (Apresoline -) 50 mg PO TID [facility] Last Admin: 12/01/18 14:32 Dose: 50 mg Insulin Aspart (Novolog Vial Sliding Scale -) 1 vial SQ [facility]; Protocol Last Admin: 12/01/18 17:05 Dose: Not Given Insulin Detemir (Levemir Vial) 22 units SQ [facility] Last Admin: 11/30/18 21:00 Dose: 22 units Isosorbide Mononitrate (Imdur -) 90 mg PO DAILY [facility] Last Admin: 12/01/18 10:07 Dose: 90 mg Latanoprost (Xalatan 0.005% Eye Drops -) 1 drop OU HS [facility] Last Admin: 11/30/18 21:02 Dose: 1 drop Levothyroxine Sodium (Synthroid -) 50 mcg PO AM [facility] Last Admin: 12/01/18 06:00 Dose: 50 mcg Polyethylene Glycol (Miralax (For Daily Use) -) 17 gm PO TID [facility] Last Admin: 12/01/18 16:53 Dose: Not Given Potassium Chloride (K-Dur -) 20 meq PO DAILY [facility] Last Admin: 12/01/18 10:06 Dose: 20 meq Ranitidine HCl (Zantac -) 150 mg PO BID [facility] Last Admin: 12/01/18 10:08 Dose: 150 mg Tamsulosin HCl (Flomax -) 0.4 mg PO DAILY@0830 [facility] Last Admin: 12/01/18 10:06 Dose: 0.4 mg Last Vital Signs Temp Pulse Resp BP Pulse Ox 98.2 F 84 18 140/63 97 12/01/18 16:53 12/01/18 16:53 12/01/18 16:53 12/01/18 16:53 12/01/18 09:00 CBC, BMP 12/01/18 06:00 12/01/18 06:00 renal function continues to improve continue hydration and monitor labs
[2018-12-01] MEDS: INSULIN (LEVEMIR) 100 UNITS/ML UNITS SQ SCH (21:28)
[2018-12-01] MEDS: ATORVASTATIN CA 20 MG TABLET (FP) PO SCH (21:28)
[2018-12-01] MEDS: LATANOPROST 0.005% OPHTH SOLN 2.5ML BOTTLE OU SCH (23:17)
[2018-12-02] MEDS: hydrALAZINE HCL 50 MG TABLET (FP) PO SCH ×3 (06:18→22:10)
[2018-12-02] MEDS: LEVOTHYROXINE NA 50 MCG TABLET (FP) PO SCH (06:18)
[2018-12-02] MEDS: INSULIN SLIDING SCALE (NOVOLOG) 1 VIAL SQ SCH ×4 (06:19→22:10)
[2018-12-02] MEDS: POLYETHYLENE GLYCOL 3350 119 GM BTL PO SCH ×3 (06:21→22:21)
[2018-12-02] MEDS: glipiZIDE 5 MG TABLET (FP) PO SCH ×3 (06:48→18:19)
[2018-12-02 08:24] LABS: HEMATOCRIT 32.8 % (32.4-45.2); HEMOGLOBIN 10.5 GM/dL (10.7-15.3); MCH 25.9 pg (25.7-33.7); MEAN CELL VOLUME 80.9 fl (80-96); MEAN PLT VOLUME 7.7 fl (7.5-11.1); RBC 4.06 M/mm3 (3.60-5.2); RDW 18.8 % (11.6-15.6); WHITE BLOOD COUNT 15.7 K/mm3 (4.0-10.0)
[2018-12-02 08:40] LABS: ALBUMIN 3.3 g/dl (3.4-5.0); BILIRUBIN,TOTAL 0.6 mg/dL (0.2-1); BLOOD UREA NITROGEN 38.3 mg/dL (7-18); CALCIUM 9.3 mg/dL (8.5-10.1); CREATININE 1.9 mg/dL (0.55-1.3); TOT PROT 6.6 g/dl (6.4-8.2)
[2018-12-02] MEDS: TAMSULOSIN HCL 0.4 MG CAP PO SCH (09:00)
[2018-12-02 09:19] LABS: PLATELET COUNT 247 K/MM3 (134-434)
[2018-12-02] MEDS: CINACALCET HCL 30 MG TAB (FP) PO SCH (09:27)
[2018-12-02] MEDS: CARVEDILOL 12.5 MG TABLET (FP) PO SCH ×2 (09:28→22:10)
[2018-12-02] MEDS: ISOSORBIDE MONONITRATE 30 MG TAB.SR.24H (FP) PO SCH (09:28)
[2018-12-02] MEDS: RANITIDINE HCL 150 MG TABLET (FP) PO SCH ×2 (09:28→22:10)
[2018-12-02] MEDS: ALLOPURINOL 100 MG TABLET (FP) PO SCH (09:28)
[2018-12-02] MEDS: GABAPENTIN 300 MG CAPSULE (FP) PO SCH (09:28)
[2018-12-02] MEDS: POTASSIUM CHLORIDE TABS 20 MEQ TABLET.ER (FP) PO SCH (09:29)
--- NOTE | 2018-12-02 13:24 | CON.ID ---
Consult Consult Specialty:: infectious diseases Referred by:: Reason for Consultation:: leukocytosis - History of Present Illness Chief Complaint: abd discomfort History of Present Illness: Patient with h/o spinal stenosis, herniated disc, HTN, HPL who was sent in by PCP Dr. Sunshine with complains of worsening pain to b/l upper and lower extremities which has not been improving with Tylenol. Patient is being followed -up by [facility] and was told she needed surgery for spinal stenosis .Denies fever, incontinence. plan was to admit her and patient to undergo surgery i was called in because patient wbc has increased examining the patient she is also c/o of abd pain and has been having foul smelling stool - History Source History Provided By: Family Member Limitations to Obtaining History: Language Barrier - Past Medical History Cardio/Vascular: Yes: CAD (non-obstructive), CHF, HTN, Hyperlipdemia, Other ( Angina pectoris) Gastrointestinal: Yes: Constipation, Diverticulosis, GERD, Other (colon polyps: sessil serrated adenomas x 2 2014) Renal/: Yes: Renal Inusuff ...: No Musculoskeletal: Yes: Other (Spinal stenosis) Endocrine: Yes: Diabetes Mellitus (Insulin dependent), Hypothyroidism - Past Surgical History Past Surgical History: Yes: Hysterectomy (BRAXTON, BSO in 1981), Oopherectomy - Alcohol/Substance Use Hx Alcohol Use: No History of Substance Use: reports: None - Smoking History Smoking history: Never smoked Have you smoked in the past 12 months: No Aproximately how many cigarettes per day: 0 - Social History Usual Living Arrangement: With Spouse ADL: Independent History of Recent Travel: Yes (WENT TO [facility] TWO YEARS AGO) Home Medications - Allergies Allergies/Adverse Reactions: Allergies Allergy/AdvReac Type Severity Reaction Status Date / Time No Known Allergies Allergy Verified 11/26/18 12:54 - Home Medications Home Medications: Ambulatory Orders Aspirin Coated [Ecotrin -] 81 mg PO DAILY #30 tablet.ec 07/09/16 Levothyroxine [Synthroid -] 50 mcg PO DAILY #90 tablet 07/09/16 Allopurinol [Zyloprim -] 100 mg PO DAILY 10/02/17 Atorvastatin Ca [Lipitor] 20 mg PO HS 10/02/17 Gabapentin [Neurontin -] 300 mg PO DAILY 10/02/17 Glipizide [Glucotrol -] 5 mg PO TID 10/02/17 Acetaminophen [Tylenol .Extra-Strength -] 500 mg PO Q6H PRN tablet 11/12/17 Tamsulosin HCl [Flomax -] 0.4 mg PO DAILY@0830 #90 cap.er.24h 11/12/17 Insulin Glargine,Hum.rec.anlog [Lantus Solostar] 22 unit SQ HS 02/15/18 Bisacodyl [Dulcolax -] 5 mg PO ASDIR 11/26/18 Carvedilol [Coreg -] 12.5 mg PO BID 11/26/18 Cinacalcet HCl [Sensipar] 30 mg PO DAILY 11/26/18 Hydralazine HCl 50 mg PO TID 11/26/18 Insulin Lispro [Humalog] 0 unit SQ ASDIR 11/26/18 Isosorbide Mononitrate [Imdur -] 90 mg PO DAILY 11/26/18 Latanoprost/Pf [Latanoprost 0.005% Eye Drop] 1 drp OP DAILY 11/26/18 Metolazone 5 mg PO DAILY 11/26/18 Polyethylene Glycol 3350 [Miralax (For Daily Use) -] 17 gm PO DAILY 11/26/18 Potassium Chloride 20 meq PO DAILY 11/26/18 Ranitidine HCl [Zantac] 150 mg PO BID 11/26/18 Torsemide 100 mg PO DAILY 11/26/18 Family Disease History - Family Disease History Family Disease History: Diabetes: Brother, Sister, Other: Father ( in his 50s ? etiology) Review of Systems - Review of Systems Constitutional: reports: Weakness, Other Eyes: reports: No Symptoms HENT: reports: No Symptoms Neck: reports: No Symptoms Cardiovascular: reports: No Symptoms Respiratory: reports: No Symptoms Gastrointestinal: reports: Abdominal Pain, Diarrhea Genitourinary: reports: No Symptoms Musculoskeletal: reports: No Symptoms Integumentary: reports: No Symptoms Neurological: reports: Numbness, Parasthesia (ext) Endocrine: reports: No Symptoms Hematology/Lymphatic: reports: No Symptoms Psychiatric: reports: No Symptoms Physical Exam Vital Signs: Vital Signs Temperature 98.8 F 12/02/18 10:00 Pulse Rate 89 12/02/18 10:00 Respiratory Rate 20 12/02/18 10:00 Blood Pressure 129/51 L 12/02/18 10:00 O2 Sat by Pulse Oximetry (%) 95 12/01/18 21:00 Constitutional: Yes: Calm, Mild Distress HENT: Yes: Atraumatic Neck: Yes: Supple, Trachea Midline Cardiovascular: Yes: Regular Rate and Rhythm Respiratory: Yes: Regular, CTA Bilaterally Gastrointestinal: Yes: Normal Bowel Sounds, Tenderness (rt lower quadrant) Musculoskeletal: Yes: WNL Extremities: Yes: WNL Neurological: Yes: Alert, Oriented Psychiatric: Yes: Alert, Oriented Labs: CBC, BMP 12/02/18 07:05 12/02/18 07:05 Assessment/Plan Problem List - Problems (1) Leukocytosis Code(s): D72.829 - ELEVATED WHITE BLOOD CELL COUNT, UNSPECIFIED (2) Cervical spondylosis with myelopathy and radiculopathy Code(s): M47.12 - OTHER SPONDYLOSIS WITH MYELOPATHY, CERVICAL REGION; M47.22 - OTHER SPONDYLOSIS WITH RADICULOPATHY, CERVICAL REGION (3) Impaired gait Code(s): R26.9 - UNSPECIFIED ABNORMALITIES OF GAIT AND MOBILITY (4) ANDRÉS (acute kidney injury) Code(s): N17.9 - ACUTE KIDNEY FAILURE, UNSPECIFIED (5) CAD (coronary artery disease) Code(s): I25.10 - ATHSCL HEART DISEASE OF [place] CORONARY ARTERY W/O ANG PCTRS Qualifiers: Coronary Disease-Associated Artery/Lesion type: [place] artery [place] vs. transplanted heart: [place] heart Associated angina: without angina Qualified Code(s): I25.10 - Atherosclerotic heart disease of [place] coronary artery without angina pectoris (6) Diabetes mellitus Code(s): E11.9 - TYPE 2 DIABETES MELLITUS WITHOUT COMPLICATIONS (7) Hyponatremia Code(s): E87.1 - HYPO-OSMOLALITY AND HYPONATREMIA (8) Acute renal failure Code(s): N17.9 - ACUTE KIDNEY FAILURE, UNSPECIFIED Qualifiers: Acute renal failure type: unspecified Qualified Code(s): N17.9 - Acute kidney failure, unspecified (9) Hypokalemia Code(s): E87.6 - HYPOKALEMIA plan stat cdiff if cdiff negative then ct of the abdomen monitor abd pain repeat cbc in the morning if wbc still high will initiate abx rest as per the team
--- NOTE | 2018-12-02 13:30 | PN ---
Progress Note, Physician History of Present Illness: Pt w/o CP, palpitations, SOB. Pt with bouts of mild abd pain, associated with decreased appetite; no N, V, diarrhea. - Current Medication List Current Medications: Active Medications Acetaminophen (Tylenol -) 500 mg PO Q6H PRN PRN Reason: PAIN Allopurinol (Zyloprim -) 100 mg PO DAILY [facility] Last Admin: 12/02/18 09:28 Dose: 100 mg Atorvastatin Calcium (Lipitor -) 20 mg PO [facility] Last Admin: 12/01/18 21:28 Dose: 20 mg Carvedilol (Coreg -) 12.5 mg PO BID [facility] Last Admin: 12/02/18 09:28 Dose: 12.5 mg Cinacalcet (Sensipar -) 30 mg PO DAILY [facility] Last Admin: 12/02/18 09:27 Dose: 30 mg Gabapentin (Neurontin -) 300 mg PO DAILY [facility] Last Admin: 12/02/18 09:28 Dose: 300 mg Glipizide (Glucotrol -) 5 mg PO TIDAC [facility] Last Admin: 12/02/18 11:13 Dose: Not Given Hydralazine HCl (Apresoline -) 50 mg PO TID [facility] Last Admin: 12/02/18 06:18 Dose: 50 mg Insulin Aspart (Novolog Vial Sliding Scale -) 1 vial SQ [facility]; Protocol Last Admin: 12/02/18 06:19 Dose: Not Given Insulin Detemir (Levemir Vial) 22 units SQ [facility] Last Admin: 12/01/18 21:28 Dose: 22 units Isosorbide Mononitrate (Imdur -) 90 mg PO DAILY [facility] Last Admin: 12/02/18 09:28 Dose: 90 mg Latanoprost (Xalatan 0.005% Eye Drops -) 1 drop OU [facility] Last Admin: 12/01/18 23:17 Dose: 1 drop Levothyroxine Sodium (Synthroid -) 50 mcg PO AM [facility] Last Admin: 12/02/18 06:18 Dose: 50 mcg Polyethylene Glycol (Miralax (For Daily Use) -) 17 gm PO TID [facility] Last Admin: 12/02/18 06:21 Dose: 17 grams Potassium Chloride (K-Dur -) 20 meq PO DAILY [facility] Last Admin: 12/02/18 09:29 Dose: 20 meq Ranitidine HCl (Zantac -) 150 mg PO BID [facility] Last Admin: 12/02/18 09:28 Dose: 150 mg Tamsulosin HCl (Flomax -) 0.4 mg PO DAILY@0830 [facility] Last Admin: 12/01/18 10:06 Dose: 0.4 mg - Objective Vital Signs: Vital Signs Temperature 98.8 F 12/02/18 10:00 Pulse Rate 89 12/02/18 10:00 Respiratory Rate 20 12/02/18 10:00 Blood Pressure 129/51 L 12/02/18 10:00 O2 Sat by Pulse Oximetry (%) 95 12/01/18 21:00 Constitutional: Yes: No Distress, Calm Cardiovascular: Yes: Regular Rate and Rhythm, S1, S2 Respiratory: Yes: Regular, CTA Bilaterally. No: Rales Gastrointestinal: Yes: Normal Bowel Sounds, Soft, Abdomen, Obese. No: Tenderness (with palpation now), Tenderness, Rebound Edema: No Neurological: Yes: Alert, Oriented Labs: CBC, BMP 12/02/18 07:05 12/02/18 07:05 INR, PTT INR 0.97 (0.83-1.09) 11/26/18 15:46 Problem List - Problems (1) Leukocytosis Assessment/Plan: Is trending up. Code(s): D72.829 - ELEVATED WHITE BLOOD CELL COUNT, UNSPECIFIED (2) Cervical spondylosis with myelopathy and radiculopathy Code(s): M47.12 - OTHER SPONDYLOSIS WITH MYELOPATHY, CERVICAL REGION; M47.22 - OTHER SPONDYLOSIS WITH RADICULOPATHY, CERVICAL REGION (3) Impaired gait Code(s): R26.9 - UNSPECIFIED ABNORMALITIES OF GAIT AND MOBILITY (4) ANDRÉS (acute kidney injury) Code(s): N17.9 - ACUTE KIDNEY FAILURE, UNSPECIFIED (5) CAD (coronary artery disease) Code(s): I25.10 - ATHSCL HEART DISEASE OF [place] CORONARY ARTERY W/O ANG PCTRS Qualifiers: Coronary Disease-Associated Artery/Lesion type: [place] artery [place] vs. transplanted heart: [place] heart Associated angina: without angina Qualified Code(s): I25.10 - Atherosclerotic heart disease of [place] coronary artery without angina pectoris (6) Diabetes mellitus Code(s): E11.9 - TYPE 2 DIABETES MELLITUS WITHOUT COMPLICATIONS (7) Hyponatremia Code(s): E87.1 - HYPO-OSMOLALITY AND HYPONATREMIA (8) Acute renal failure Code(s): N17.9 - ACUTE KIDNEY FAILURE, UNSPECIFIED Qualifiers: Acute renal failure type: unspecified Qualified Code(s): N17.9 - Acute kidney failure, unspecified (9) Hypokalemia Code(s): E87.6 - HYPOKALEMIA Assessment/Plan WBC is trending up, no abvious case; to send UA, UC, BCX, CXR. ID consult Improvement in Na and K Renal, NeuroSx, Cardiology (pt's condition was d/w Dr. Arroyo) consults are appreciated AM labs Pt's condition was reviewed with his nurse at bedside. Pt is not cleared for with C spine surgery (until source of leukocytosis is identified and treatment is started).
--- NOTE | 2018-12-02 15:57 | PN ---
Progress Note (short form) - Note Progress Note: ckd s/p andrés hyponatremia volume depletion s/p IV hydration Current Medications Acetaminophen (Tylenol -) 500 mg PO Q6H PRN PRN Reason: PAIN Allopurinol (Zyloprim -) 100 mg PO DAILY [facility] Last Admin: 12/02/18 09:28 Dose: 100 mg Atorvastatin Calcium (Lipitor -) 20 mg PO [facility] Last Admin: 12/01/18 21:28 Dose: 20 mg Carvedilol (Coreg -) 12.5 mg PO BID [facility] Last Admin: 12/02/18 09:28 Dose: 12.5 mg Cinacalcet (Sensipar -) 30 mg PO DAILY [facility] Last Admin: 12/02/18 09:27 Dose: 30 mg Gabapentin (Neurontin -) 300 mg PO DAILY [facility] Last Admin: 12/02/18 09:28 Dose: 300 mg Glipizide (Glucotrol -) 5 mg PO TIDAC [facility] Last Admin: 12/02/18 11:13 Dose: Not Given Hydralazine HCl (Apresoline -) 50 mg PO TID [facility] Last Admin: 12/02/18 13:48 Dose: 50 mg Insulin Aspart (Novolog Vial Sliding Scale -) 1 vial SQ [facility]; Protocol Last Admin: 12/02/18 13:48 Dose: Not Given Insulin Detemir (Levemir Vial) 22 units SQ [facility] Last Admin: 12/01/18 21:28 Dose: 22 units Isosorbide Mononitrate (Imdur -) 90 mg PO DAILY [facility] Last Admin: 12/02/18 09:28 Dose: 90 mg Latanoprost (Xalatan 0.005% Eye Drops -) 1 drop OU [facility] Last Admin: 12/01/18 23:17 Dose: 1 drop Levothyroxine Sodium (Synthroid -) 50 mcg PO AM [facility] Last Admin: 12/02/18 06:18 Dose: 50 mcg Polyethylene Glycol (Miralax (For Daily Use) -) 17 gm PO TID [facility] Last Admin: 12/02/18 06:21 Dose: 17 grams Potassium Chloride (K-Dur -) 20 meq PO DAILY [facility] Last Admin: 12/02/18 09:29 Dose: 20 meq Ranitidine HCl (Zantac -) 150 mg PO BID [facility] Last Admin: 06/16/19 09:28 Dose: 150 mg Tamsulosin HCl (Flomax -) 0.4 mg PO DAILY@0830 [facility] Last Admin: 12/02/18 09:00 Dose: 0.4 mg Last Vital Signs Temp Pulse Resp BP Pulse Ox 98.2 F 84 18 140/63 97 12/01/18 16:53 12/01/18 16:53 12/01/18 16:53 12/01/18 16:53 12/01/18 09:00 more alert today Lungs clear Heart reg Abd soft nontender ext no edema CBC, BMP 12/02/18 07:05 12/02/18 07:05 CBC, BMP 12/01/18 06:00 12/01/18 06:00 IMP ANDRÉS LEUKOCYTOSIS Unclear source- eval by ID fluctuating azotemia Plan- continue hydration and monitor labs
[2018-12-02 19:36] LABS: PH,URINE 6.5 (5.0-8.0); URINE APPEARANCE TURBID; URINE BILIRUBIN NEGATIVE (NEGATIVE); URINE COLOR YELLOW; URINE GLUCOSE (UA) NEGATIVE (NEGATIVE); URINE KETONE NEGATIVE (NEGATIVE); URINE LEUK ESTERASE 3+ (NEGATIVE); URINE NITRITE POSITIVE (NEGATIVE); URINE PROTEIN 1+ (NEGATIVE)
[2018-12-02 20:21] LABS: URINE RBC 0 /hpf (0-4); URINE WBC 20-50 /hpf (0-5)
[2018-12-02 20:22] LABS: HYALINE CASTS 0 /lpf (0-8); URINE BACTERIA MANY /hpf (NEGATIVE)
[2018-12-02] MEDS ORDERED: VANCOMYCIN 250 MG/5 ML ORAL SOLUTION PO SCH (21:14)
[2018-12-02] MEDS: INSULIN (LEVEMIR) 100 UNITS/ML UNITS SQ SCH (22:10)
[2018-12-02] MEDS: ATORVASTATIN CA 20 MG TABLET (FP) PO SCH (22:10)
[2018-12-02] MEDS: LATANOPROST 0.005% OPHTH SOLN 2.5ML BOTTLE OU SCH (22:10)
[2018-12-02] MEDS: ACETAMINOPHEN 500 MG TABLET (FP) PO PRN (22:55)
[2018-12-03] MEDS: LEVOTHYROXINE NA 50 MCG TABLET (FP) PO SCH (06:22)
[2018-12-03] MEDS: INSULIN SLIDING SCALE (NOVOLOG) 1 VIAL SQ SCH ×4 (06:22→21:15)
[2018-12-03] MEDS: hydrALAZINE HCL 50 MG TABLET (FP) PO SCH ×3 (06:22→21:09)
[2018-12-03] MEDS: glipiZIDE 5 MG TABLET (FP) PO SCH ×3 (06:23→16:48)
[2018-12-03] MEDS: POLYETHYLENE GLYCOL 3350 119 GM BTL PO SCH ×3 (06:23→21:10)
[2018-12-03 07:43] LABS: HEMATOCRIT 32.4 % (32.4-45.2); HEMOGLOBIN 10.5 GM/dL (10.7-15.3); MCH 26.3 pg (25.7-33.7); MCHC 32.3 g/dl (32.0-36.0); MEAN CELL VOLUME 81.4 fl (80-96); MEAN PLT VOLUME 7.6 fl (7.5-11.1); RBC 3.98 M/mm3 (3.60-5.2); WHITE BLOOD COUNT 12.8 K/mm3 (4.0-10.0)
[2018-12-03 07:59] LABS: ALBUMIN 3.4 g/dl (3.4-5.0); BILIRUBIN,TOTAL 0.6 mg/dL (0.2-1); BLOOD UREA NITROGEN 41.8 mg/dL (7-18); CALCIUM 9.2 mg/dL (8.5-10.1); CREATININE 2.1 mg/dL (0.55-1.3); POTASSIUM 4.2 mmol/L (3.5-5.1); TOT PROT 6.8 g/dl (6.4-8.2)
--- NOTE | 2018-12-03 09:11 | PN ---
Progress Note, Physician History of Present Illness: patient still c/o of abd pain does not feel better - Current Medication List Current Medications: Active Medications Acetaminophen (Tylenol -) 500 mg PO Q6H PRN PRN Reason: PAIN Last Admin: 12/02/18 22:55 Dose: 500 mg Allopurinol (Zyloprim -) 100 mg PO DAILY [facility] Last Admin: 12/02/18 09:28 Dose: 100 mg Atorvastatin Calcium (Lipitor -) 20 mg PO [facility] Last Admin: 12/02/18 22:10 Dose: 20 mg Carvedilol (Coreg -) 12.5 mg PO BID [facility] Last Admin: 12/02/18 22:10 Dose: 12.5 mg Cinacalcet (Sensipar -) 30 mg PO DAILY [facility] Last Admin: 12/02/18 09:27 Dose: 30 mg Gabapentin (Neurontin -) 300 mg PO DAILY [facility] Last Admin: 12/02/18 09:28 Dose: 300 mg Glipizide (Glucotrol -) 5 mg PO TIDAC [facility] Last Admin: 12/03/18 06:23 Dose: Not Given Hydralazine HCl (Apresoline -) 50 mg PO TID [facility] Last Admin: 12/03/18 06:22 Dose: 50 mg Insulin Aspart (Novolog Vial Sliding Scale -) 1 vial SQ [facility]; Protocol Last Admin: 12/03/18 06:22 Dose: Not Given Insulin Detemir (Levemir Vial) 22 units SQ [facility] Last Admin: 12/02/18 22:10 Dose: 22 units Isosorbide Mononitrate (Imdur -) 90 mg PO DAILY [facility] Last Admin: 12/02/18 09:28 Dose: 90 mg Latanoprost (Xalatan 0.005% Eye Drops -) 1 drop OU [facility] Last Admin: 12/02/18 22:10 Dose: 1 drop Levothyroxine Sodium (Synthroid -) 50 mcg PO AM [facility] Last Admin: 12/03/18 06:22 Dose: 50 mcg Polyethylene Glycol (Miralax (For Daily Use) -) 17 gm PO TID [facility] Last Admin: 12/03/18 06:23 Dose: Not Given Potassium Chloride (K-Dur -) 20 meq PO DAILY [facility] Last Admin: 12/02/18 09:29 Dose: 20 meq Ranitidine HCl (Zantac -) 150 mg PO BID [facility] Last Admin: 12/02/18 22:10 Dose: 150 mg Tamsulosin HCl (Flomax -) 0.4 mg PO DAILY@0830 [facility] Last Admin: 12/02/18 09:00 Dose: 0.4 mg - Objective Vital Signs: Vital Signs Temperature 99.1 F 12/03/18 06:00 Pulse Rate 56 L 12/03/18 06:00 Respiratory Rate 20 12/03/18 06:00 Blood Pressure 113/49 L 12/03/18 06:00 O2 Sat by Pulse Oximetry (%) 96 12/02/18 21:00 Constitutional: Yes: Calm, Mild Distress, Other (lying curled up in bed) Cardiovascular: Yes: S1, S2 Respiratory: Yes: Regular, CTA Bilaterally Gastrointestinal: Yes: Normal Bowel Sounds, Tenderness Musculoskeletal: Yes: WNL Extremities: Yes: WNL Neurological: Yes: Alert, Oriented, Numbness Psychiatric: Yes: Alert, Oriented Labs: CBC, BMP 12/03/18 06:40 INR, PTT INR 0.97 (0.83-1.09) 11/26/18 15:46 Assessment/Plan Problem List - Problems (1) Leukocytosis Code(s): D72.829 - ELEVATED WHITE BLOOD CELL COUNT, UNSPECIFIED (2) Cervical spondylosis with myelopathy and radiculopathy Code(s): M47.12 - OTHER SPONDYLOSIS WITH MYELOPATHY, CERVICAL REGION; M47.22 - OTHER SPONDYLOSIS WITH RADICULOPATHY, CERVICAL REGION (3) Impaired gait Code(s): R26.9 - UNSPECIFIED ABNORMALITIES OF GAIT AND MOBILITY (4) ANDRÉS (acute kidney injury) Code(s): N17.9 - ACUTE KIDNEY FAILURE, UNSPECIFIED (5) CAD (coronary artery disease) Code(s): I25.10 - ATHSCL HEART DISEASE OF [place] CORONARY ARTERY W/O ANG PCTRS Qualifiers: Coronary Disease-Associated Artery/Lesion type: [place] artery [place] vs. transplanted heart: [place] heart Associated angina: without angina Qualified Code(s): I25.10 - Atherosclerotic heart disease of [place] coronary artery without angina pectoris (6) Diabetes mellitus Code(s): E11.9 - TYPE 2 DIABETES MELLITUS WITHOUT COMPLICATIONS (7) Hyponatremia Code(s): E87.1 - HYPO-OSMOLALITY AND HYPONATREMIA (8) Acute renal failure Code(s): N17.9 - ACUTE KIDNEY FAILURE, UNSPECIFIED Qualifiers: Acute renal failure type: unspecified Qualified Code(s): N17.9 - Acute kidney failure, unspecified (9) Hypokalemia Code(s): E87.6 - HYPOKALEMIA 10 abd pain plan will see what the wbc is if the wbc is higher then i will start abx also abd pain still present,suggest to get a ct scan monitor urine output
[2018-12-03 09:18] LABS: PLATELET COUNT 234 K/MM3 (134-434)
[2018-12-03] MEDS: CINACALCET HCL 30 MG TAB (FP) PO SCH (09:42)
[2018-12-03] MEDS: RANITIDINE HCL 150 MG TABLET (FP) PO SCH ×2 (09:43→21:09)
[2018-12-03] MEDS: TAMSULOSIN HCL 0.4 MG CAP PO SCH (09:43)
[2018-12-03] MEDS: ALLOPURINOL 100 MG TABLET (FP) PO SCH (09:43)
[2018-12-03] MEDS: POTASSIUM CHLORIDE TABS 20 MEQ TABLET.ER (FP) PO SCH (09:43)
[2018-12-03] MEDS: GABAPENTIN 300 MG CAPSULE (FP) PO SCH (09:43)
[2018-12-03] MEDS: CARVEDILOL 12.5 MG TABLET (FP) PO SCH ×2 (09:44→21:09)
[2018-12-03] MEDS: ISOSORBIDE MONONITRATE 30 MG TAB.SR.24H (FP) PO SCH (09:44)
--- NOTE | 2018-12-03 10:25 | PN ---
Progress Note, Physician Chief Complaint: Events noted Surgery postponed due to electrolytes, improved ID input noted History of Present Illness: Patient was seen and examined. Awake and alert. Chart was reviewed Denies chest pain, SOB or palpitations - Current Medication List Current Medications: Active Medications Acetaminophen (Tylenol -) 500 mg PO Q6H PRN PRN Reason: PAIN Last Admin: 12/02/18 22:55 Dose: 500 mg Allopurinol (Zyloprim -) 100 mg PO DAILY [facility] Last Admin: 12/03/18 09:43 Dose: 100 mg Atorvastatin Calcium (Lipitor -) 20 mg PO HS [facility] Last Admin: 12/02/18 22:10 Dose: 20 mg Carvedilol (Coreg -) 12.5 mg PO BID [facility] Last Admin: 12/03/18 09:44 Dose: 12.5 mg Cinacalcet (Sensipar -) 30 mg PO DAILY [facility] Last Admin: 12/03/18 09:42 Dose: 30 mg Gabapentin (Neurontin -) 300 mg PO DAILY [facility] Last Admin: 12/03/18 09:43 Dose: 300 mg Glipizide (Glucotrol -) 5 mg PO TIDAC [facility] Last Admin: 12/03/18 06:23 Dose: Not Given Hydralazine HCl (Apresoline -) 50 mg PO TID [facility] Last Admin: 12/03/18 06:22 Dose: 50 mg Insulin Aspart (Novolog Vial Sliding Scale -) 1 vial SQ [facility]; Protocol Last Admin: 12/03/18 06:22 Dose: Not Given Insulin Detemir (Levemir Vial) 22 units SQ [facility] Last Admin: 12/02/18 22:10 Dose: 22 units Isosorbide Mononitrate (Imdur -) 90 mg PO DAILY [facility] Last Admin: 12/03/18 09:44 Dose: 90 mg Latanoprost (Xalatan 0.005% Eye Drops -) 1 drop OU [facility] Last Admin: 12/02/18 22:10 Dose: 1 drop Levothyroxine Sodium (Synthroid -) 50 mcg PO AM [facility] Last Admin: 12/03/18 06:22 Dose: 50 mcg Polyethylene Glycol (Miralax (For Daily Use) -) 17 gm PO TID [facility] Last Admin: 12/03/18 06:23 Dose: Not Given Potassium Chloride (K-Dur -) 20 meq PO DAILY [facility] Last Admin: 12/03/18 09:43 Dose: 20 meq Ranitidine HCl (Zantac -) 150 mg PO BID [facility] Last Admin: 12/03/18 09:43 Dose: 150 mg Tamsulosin HCl (Flomax -) 0.4 mg PO DAILY@0830 [facility] Last Admin: 12/03/18 09:43 Dose: 0.4 mg - Objective Vital Signs: Vital Signs Temperature 99.1 F 12/03/18 06:00 Pulse Rate 56 L 12/03/18 06:00 Respiratory Rate 20 12/03/18 06:00 Blood Pressure 113/49 L 12/03/18 06:00 O2 Sat by Pulse Oximetry (%) 96 12/02/18 21:00 Eyes: Yes: PERRL HENT: Yes: Atraumatic Neck: Yes: Supple Cardiovascular: Yes: Regular Rate and Rhythm, S1, S2 Respiratory: Yes: CTA Bilaterally Gastrointestinal: Yes: Normal Bowel Sounds, Soft. No: Tenderness Musculoskeletal: Yes: Back Pain Edema: No Labs: CBC, BMP 12/03/18 06:40 12/03/18 06:40 Problem List - Problems (1) Cervical spondylosis with myelopathy and radiculopathy Code(s): M47.12 - OTHER SPONDYLOSIS WITH MYELOPATHY, CERVICAL REGION; M47.22 - OTHER SPONDYLOSIS WITH RADICULOPATHY, CERVICAL REGION (2) Hypokalemia Code(s): E87.6 - HYPOKALEMIA (3) Impaired gait Code(s): R26.9 - UNSPECIFIED ABNORMALITIES OF GAIT AND MOBILITY (4) ANDRÉS (acute kidney injury) Code(s): N17.9 - ACUTE KIDNEY FAILURE, UNSPECIFIED (5) Anemia Code(s): D64.9 - ANEMIA, UNSPECIFIED (6) CAD (coronary artery disease) Code(s): I25.10 - ATHSCL HEART DISEASE OF [place] CORONARY ARTERY W/O ANG PCTRS Qualifiers: Coronary Disease-Associated Artery/Lesion type: [place] artery [place] vs. transplanted heart: [place] heart Associated angina: without angina Qualified Code(s): I25.10 - Atherosclerotic heart disease of [place] coronary artery without angina pectoris (7) CRF (chronic renal failure) Code(s): N18.9 - CHRONIC KIDNEY DISEASE, UNSPECIFIED (8) Diabetes mellitus Code(s): E11.9 - TYPE 2 DIABETES MELLITUS WITHOUT COMPLICATIONS (9) Hyponatremia Code(s): E87.1 - HYPO-OSMOLALITY AND HYPONATREMIA (10) Diverticulosis Code(s): K57.90 - DVRTCLOS OF INTEST, PART UNSP, W/O PERF OR ABSCESS W/O BLEED (11) Endothelial dysfunction of coronary artery Code(s): I99.8 - OTHER DISORDER OF CIRCULATORY SYSTEM (12) Hyperlipidemia Code(s): E78.5 - HYPERLIPIDEMIA, UNSPECIFIED Qualifiers: Hyperlipidemia type: pure hypercholesterolemia Qualified Code(s): E78.00 - Pure hypercholesterolemia, unspecified; E78.0 - Pure hypercholesterolemia (13) Hypertension Code(s): I10 - ESSENTIAL (PRIMARY) HYPERTENSION Qualifiers: Hypertension type: essential hypertension Qualified Code(s): I10 - Essential (primary) hypertension (14) Hypothyroidism Code(s): E03.9 - HYPOTHYROIDISM, UNSPECIFIED Qualifiers: Hypothyroidism type: unspecified Qualified Code(s): E03.9 - Hypothyroidism , unspecified (15) [id number] kidney injury Code(s): N17.9 - ACUTE KIDNEY FAILURE, UNSPECIFIED; N18.9 - CHRONIC KIDNEY DISEASE, UNSPECIFIED Assessment/Plan 1. Spinal stenosis, cervical radiculopathy 2. CAD - non-obstructive, angina pectoris 3. HTN 4. Hypercholesterolemia 5. Type 2 DM 6. Hypothyroidism 7. CKD 8. LV diastolic dysfunction without evidence of failure 9. Hypnatremia and hypokalemia PLAN: 1. Na improved 2. Monitor renal function 3. Tentative neurosurgery when cleared 4. Continue Carvedilol as tolerated 5. Imdur and Hydralazine as tolerated 6. Statin therapy 7. Ecotrin has been held 8. There is no absolute contraindication for surgery in view of absence of ischemic symptoms, decompensated congestive heart failure and absence of malignant arrhythmias. 9. ID input noted Guarded Apollo Kiser MD
--- NOTE | 2018-12-03 12:34 | PN ---
Progress Note (short form) - Note Progress Note: Patient remains stable from Cervical spine standpoint. Still not ambulating. Pain controlled. Although electrolyte profile has improved, patient has elevated WBC (slightly down today) and possible UTI (cultures pending). Likely will not be medically optimized for surgery in AM. I will be away after until December 14. Most likely any surgery would need to be after this time period unless patient progresses rapidly. Will continue to follow and consider options to treat her if medically optimized sooner.
--- NOTE | 2018-12-03 17:40 | PN ---
Progress Note, Physician History of Present Illness: Pt wo fever, chills, sore throat, ansal DC, cough, and pain, N, V, diarrhea, dysuria Pt w/o CP, palpitations, SOB. - Current Medication List Current Medications: Active Medications Acetaminophen (Tylenol -) 500 mg PO Q6H PRN PRN Reason: PAIN Last Admin: 12/02/18 22:55 Dose: 500 mg Allopurinol (Zyloprim -) 100 mg PO DAILY [facility] Last Admin: 12/03/18 09:43 Dose: 100 mg Atorvastatin Calcium (Lipitor -) 20 mg PO HS [facility] Last Admin: 12/02/18 22:10 Dose: 20 mg Carvedilol (Coreg -) 12.5 mg PO BID [facility] Last Admin: 12/03/18 09:44 Dose: 12.5 mg Cinacalcet (Sensipar -) 30 mg PO DAILY [facility] Last Admin: 12/03/18 09:42 Dose: 30 mg Gabapentin (Neurontin -) 300 mg PO DAILY [facility] Last Admin: 12/03/18 09:43 Dose: 300 mg Glipizide (Glucotrol -) 5 mg PO TIDAC [facility] Last Admin: 12/03/18 16:48 Dose: 5 mg Hydralazine HCl (Apresoline -) 50 mg PO TID [facility] Last Admin: 12/03/18 13:59 Dose: 50 mg Insulin Aspart (Novolog Vial Sliding Scale -) 1 vial SQ [facility]; Protocol Last Admin: 12/03/18 16:47 Dose: Not Given Insulin Detemir (Levemir Vial) 22 units SQ [facility] Last Admin: 12/02/18 22:10 Dose: 22 units Isosorbide Mononitrate (Imdur -) 90 mg PO DAILY [facility] Last Admin: 12/03/18 09:44 Dose: 90 mg Latanoprost (Xalatan 0.005% Eye Drops -) 1 drop OU HS [facility] Last Admin: 12/02/18 22:10 Dose: 1 drop Levothyroxine Sodium (Synthroid -) 50 mcg PO AM [facility] Last Admin: 12/03/18 06:22 Dose: 50 mcg Polyethylene Glycol (Miralax (For Daily Use) -) 17 gm PO TID [facility] Last Admin: 12/03/18 13:59 Dose: Not Given Potassium Chloride (K-Dur -) 20 meq PO DAILY [facility] Last Admin: 12/03/18 09:43 Dose: 20 meq Ranitidine HCl (Zantac -) 150 mg PO BID [facility] Last Admin: 12/03/18 09:43 Dose: 150 mg Tamsulosin HCl (Flomax -) 0.4 mg PO DAILY@0830 [facility] Last Admin: 12/03/18 09:43 Dose: 0.4 mg - Objective Vital Signs: Vital Signs Temperature 98.3 F 12/03/18 14:12 Pulse Rate 64 12/03/18 14:12 Respiratory Rate 20 12/03/18 14:12 Blood Pressure 103/51 L 12/03/18 14:12 O2 Sat by Pulse Oximetry (%) 100 12/03/18 09:00 Constitutional: Yes: No Distress, Calm Neck: Yes: Trachea Midline. No: Lymphadenopathy Cardiovascular: Yes: Regular Rate and Rhythm, S1, S2 Respiratory: Yes: Regular, CTA Bilaterally. No: Rales Gastrointestinal: Yes: Normal Bowel Sounds, Soft. No: Tenderness Edema: No Neurological: Yes: Alert, Oriented Labs: CBC, BMP 12/03/18 06:40 12/03/18 06:40 INR, PTT INR 0.97 (0.83-1.09) 11/26/18 15:46 Problem List - Problems (1) Leukocytosis Assessment/Plan: Slightly better today. Code(s): D72.829 - ELEVATED WHITE BLOOD CELL COUNT, UNSPECIFIED (2) Cervical spondylosis with myelopathy and radiculopathy Code(s): M47.12 - OTHER SPONDYLOSIS WITH MYELOPATHY, CERVICAL REGION; M47.22 - OTHER SPONDYLOSIS WITH RADICULOPATHY, CERVICAL REGION (3) Impaired gait Code(s): R26.9 - UNSPECIFIED ABNORMALITIES OF GAIT AND MOBILITY (4) ANDRÉS (acute kidney injury) Code(s): N17.9 - ACUTE KIDNEY FAILURE, UNSPECIFIED (5) CAD (coronary artery disease) Code(s): I25.10 - ATHSCL HEART DISEASE OF [place] CORONARY ARTERY W/O ANG PCTRS Qualifiers: Coronary Disease-Associated Artery/Lesion type: [place] artery [place] vs. transplanted heart: [place] heart Associated angina: without angina Qualified Code(s): I25.10 - Atherosclerotic heart disease of [place] coronary artery without angina pectoris (6) Diabetes mellitus Code(s): E11.9 - TYPE 2 DIABETES MELLITUS WITHOUT COMPLICATIONS (7) Hyponatremia Code(s): E87.1 - HYPO-OSMOLALITY AND HYPONATREMIA (8) Acute renal failure Code(s): N17.9 - ACUTE KIDNEY FAILURE, UNSPECIFIED Qualifiers: Acute renal failure type: unspecified Qualified Code(s): N17.9 - Acute kidney failure, unspecified (9) Hypokalemia Code(s): E87.6 - HYPOKALEMIA Assessment/Plan WBC trend, UC, BCX to be f/u Improvement in Na and K Renal, NeuroSx, Cardiology, ID consults are appreciated. Pt's condition was d/w Dr Lawrence; pt is not cleared for Sx. AM labs Pt's condition was reviewed with his nurse at bedside. Pt is not cleared for with C spine surgery (secondary to leukocytosis).
--- NOTE | 2018-12-03 18:26 | PN ---
Progress Note (short form) - Note Progress Note: Renal follow up for ANDRÉS and hyponatremia Pt seen and examined at the bedside reports some lower abd discomfort moving bowels making urine bladder scan showed PVR of 80-100 cc no flank pain no sob, cp Vital Signs Temperature 98.3 F 12/03/18 14:12 Pulse Rate 64 12/03/18 14:12 Respiratory Rate 20 12/03/18 14:12 Blood Pressure 103/51 L 12/03/18 14:12 O2 Sat by Pulse Oximetry (%) 100 12/03/18 09:00 Intake & Output 11/30/18 12/01/18 12/02/18 12/03/18 23:59 23:59 23:59 23:59 Intake Total 650 987 500 400 Balance 650 987 500 400 Weight 75.07 kg NAD RRR, no M/R CTA, no rales or wheeze soft, mild distension, no tenderness No LE edema, clubbing or cyanosis CBC, BMP 12/03/18 06:40 12/03/18 06:40 Current Medications Acetaminophen (Tylenol -) 500 mg PO Q6H PRN PRN Reason: PAIN Last Admin: 12/02/18 22:55 Dose: 500 mg Allopurinol (Zyloprim -) 100 mg PO DAILY [facility] Last Admin: 12/03/18 09:43 Dose: 100 mg Atorvastatin Calcium (Lipitor -) 20 mg PO HS [facility] Last Admin: 12/02/18 22:10 Dose: 20 mg Carvedilol (Coreg -) 12.5 mg PO BID [facility] Last Admin: 12/03/18 09:44 Dose: 12.5 mg Cinacalcet (Sensipar -) 30 mg PO DAILY [facility] Last Admin: 12/03/18 09:42 Dose: 30 mg Gabapentin (Neurontin -) 300 mg PO DAILY [facility] Last Admin: 12/03/18 09:43 Dose: 300 mg Glipizide (Glucotrol -) 5 mg PO TIDAC [facility] Last Admin: 12/03/18 16:48 Dose: 5 mg Hydralazine HCl (Apresoline -) 50 mg PO TID [facility] Last Admin: 12/03/18 13:59 Dose: 50 mg Insulin Aspart (Novolog Vial Sliding Scale -) 1 vial SQ ACHS [facility]; Protocol Last Admin: 12/03/18 16:47 Dose: Not Given Insulin Detemir (Levemir Vial) 22 units SQ HS [facility] Last Admin: 12/02/18 22:10 Dose: 22 units Isosorbide Mononitrate (Imdur -) 90 mg PO DAILY [facility] Last Admin: 12/03/18 09:44 Dose: 90 mg Latanoprost (Xalatan 0.005% Eye Drops -) 1 drop OU HS [facility] Last Admin: 12/02/18 22:10 Dose: 1 drop Levothyroxine Sodium (Synthroid -) 50 mcg PO AM [facility] Last Admin: 12/03/18 06:22 Dose: 50 mcg Polyethylene Glycol (Miralax (For Daily Use) -) 17 gm PO TID [facility] Last Admin: 12/03/18 13:59 Dose: Not Given Potassium Chloride (K-Dur -) 20 meq PO DAILY [facility] Last Admin: 12/03/18 09:43 Dose: 20 meq Ranitidine HCl (Zantac -) 150 mg PO BID [facility] Last Admin: 12/03/18 09:43 Dose: 150 mg Tamsulosin HCl (Flomax -) 0.4 mg PO DAILY@0830 [facility] Last Admin: 12/03/18 09:43 Dose: 0.4 mg 83 year old [place] woman with history of CKD stage 4 (baseline Cr ~2, eGFR 25-30). CHF (diastolic dysfunction), DM type 2, anemia, hyperlipidemia who presented with generalized weakness and found to have hyponatremia, hypokalemia and ANDRÉS. #ANDRÉS likely due to hypovolemia in setting of diuretic use and poor solute intake #Hypovolemic hyponatremia #Hypokalemia form diuretics and poor oral intake #Metabolic alkalosis (contraction alkalosis) #Diastolic HF w/o evidence of CHF exacerbation #Hx of Anemia (Hgb now WNL but may be due to hemoconcentration) #Cervical radiculopathy Renal function and sodium stable off IVF check bladder US to r/o retention continue to trend renal function and electrolytes Thank you Wm Tian DO
[2018-12-03] MEDS: ACETAMINOPHEN 500 MG TABLET (FP) PO PRN (18:37)
[2018-12-03] MEDS: INSULIN (LEVEMIR) 100 UNITS/ML UNITS SQ SCH (21:09)
[2018-12-03] MEDS: ATORVASTATIN CA 20 MG TABLET (FP) PO SCH (21:09)
[2018-12-03] MEDS: LATANOPROST 0.005% OPHTH SOLN 2.5ML BOTTLE OU SCH (21:10)
[2018-12-04] MEDS: hydrALAZINE HCL 50 MG TABLET (FP) PO SCH ×3 (05:19→21:30)
[2018-12-04] MEDS: POLYETHYLENE GLYCOL 3350 119 GM BTL PO SCH ×3 (05:21→21:31)
[2018-12-04] MEDS: INSULIN SLIDING SCALE (NOVOLOG) 1 VIAL SQ SCH ×4 (06:07→21:40)
[2018-12-04] MEDS: LEVOTHYROXINE NA 50 MCG TABLET (FP) PO SCH (06:11)
[2018-12-04] MEDS: glipiZIDE 5 MG TABLET (FP) PO SCH ×3 (06:11→16:57)
[2018-12-04 07:26] LABS: HEMATOCRIT 30.6 % (32.4-45.2); HEMOGLOBIN 10.2 GM/dL (10.7-15.3); MCH 26.7 pg (25.7-33.7); MCHC 33.2 g/dl (32.0-36.0); MEAN CELL VOLUME 80.4 fl (80-96); MEAN PLT VOLUME 7.6 fl (7.5-11.1); PLATELET COUNT 226 K/MM3 (134-434); RDW 19.5 % (11.6-15.6); WHITE BLOOD COUNT 10.1 K/mm3 (4.0-10.0)
[2018-12-04 07:49] LABS: ALBUMIN 3.2 g/dl (3.4-5.0); BILIRUBIN,TOTAL 0.8 mg/dL (0.2-1); BLOOD UREA NITROGEN 45.1 mg/dL (7-18); CREATININE 2.2 mg/dL (0.55-1.3); POTASSIUM 4.2 mmol/L (3.5-5.1); TOT PROT 6.2 g/dl (6.4-8.2)
[2018-12-04] MEDS: ISOSORBIDE MONONITRATE 30 MG TAB.SR.24H (FP) PO SCH (09:07)
[2018-12-04] MEDS: POTASSIUM CHLORIDE TABS 20 MEQ TABLET.ER (FP) PO SCH (09:07)
[2018-12-04] MEDS: CARVEDILOL 12.5 MG TABLET (FP) PO SCH ×2 (09:07→21:30)
[2018-12-04] MEDS: TAMSULOSIN HCL 0.4 MG CAP PO SCH (09:07)
[2018-12-04] MEDS: ALLOPURINOL 100 MG TABLET (FP) PO SCH (09:07)
[2018-12-04] MEDS: CINACALCET HCL 30 MG TAB (FP) PO SCH (09:08)
[2018-12-04] MEDS: GABAPENTIN 300 MG CAPSULE (FP) PO SCH (09:08)
[2018-12-04] MEDS: RANITIDINE HCL 150 MG TABLET (FP) PO SCH ×2 (09:08→21:30)
--- NOTE | 2018-12-04 09:33 | PN ---
Progress Note, Physician History of Present Illness: Pt w/o CP, palpitations, SOB, abd pain. Pt with neck pain last night, now w/o pain; no motor weakness - Current Medication List Current Medications: Active Medications Acetaminophen (Tylenol -) 500 mg PO Q6H PRN PRN Reason: PAIN Last Admin: 12/03/18 18:37 Dose: 500 mg Allopurinol (Zyloprim -) 100 mg PO DAILY [facility] Last Admin: 12/04/18 09:07 Dose: 100 mg Atorvastatin Calcium (Lipitor -) 20 mg PO HS [facility] Last Admin: 12/03/18 21:09 Dose: 20 mg Carvedilol (Coreg -) 12.5 mg PO BID [facility] Last Admin: 12/04/18 09:07 Dose: 12.5 mg Cinacalcet (Sensipar -) 30 mg PO DAILY [facility] Last Admin: 12/04/18 09:08 Dose: 30 mg Gabapentin (Neurontin -) 300 mg PO DAILY [facility] Last Admin: 12/04/18 09:08 Dose: 300 mg Glipizide (Glucotrol -) 5 mg PO TIDAC [facility] Last Admin: 12/04/18 06:11 Dose: 5 mg Hydralazine HCl (Apresoline -) 50 mg PO TID [facility] Last Admin: 12/04/18 05:19 Dose: 50 mg Insulin Aspart (Novolog Vial Sliding Scale -) 1 vial SQ [facility]; Protocol Last Admin: 12/04/18 06:07 Dose: Not Given Insulin Detemir (Levemir Vial) 22 units SQ [facility] Last Admin: 12/03/18 21:09 Dose: 22 units Isosorbide Mononitrate (Imdur -) 90 mg PO DAILY [facility] Last Admin: 12/04/18 09:07 Dose: 90 mg Latanoprost (Xalatan 0.005% Eye Drops -) 1 drop OU HS [facility] Last Admin: 12/03/18 21:10 Dose: 1 drop Levothyroxine Sodium (Synthroid -) 50 mcg PO AM [facility] Last Admin: 12/04/18 06:11 Dose: 50 mcg Polyethylene Glycol (Miralax (For Daily Use) -) 17 gm PO TID [facility] Last Admin: 12/04/18 05:21 Dose: Not Given Potassium Chloride (K-Dur -) 20 meq PO DAILY [facility] Last Admin: 12/04/18 09:07 Dose: 20 meq Ranitidine HCl (Zantac -) 150 mg PO BID [facility] Last Admin: 12/04/18 09:08 Dose: 150 mg Tamsulosin HCl (Flomax -) 0.4 mg PO DAILY@0830 [facility] Last Admin: 12/04/18 09:07 Dose: 0.4 mg - Objective Vital Signs: Vital Signs Temperature 98 F 12/04/18 06:21 Pulse Rate 80 12/04/18 06:21 Respiratory Rate 20 12/04/18 06:21 Blood Pressure 121/52 L 12/04/18 06:21 O2 Sat by Pulse Oximetry (%) 100 12/03/18 21:00 Constitutional: Yes: No Distress, Calm Cardiovascular: Yes: Regular Rate and Rhythm, S1, S2 Respiratory: Yes: Regular, CTA Bilaterally. No: Rales Gastrointestinal: Yes: Normal Bowel Sounds, Soft, Abdomen, Obese. No: Tenderness Edema: No Neurological: Yes: Alert, Oriented Labs: CBC, BMP 12/04/18 06:45 12/04/18 06:45 INR, PTT INR 0.97 (0.83-1.09) 11/26/18 15:46 - ....Imaging Ultrasound: Report Reviewed Problem List - Problems (1) Cervical spondylosis with myelopathy and radiculopathy Code(s): M47.12 - OTHER SPONDYLOSIS WITH MYELOPATHY, CERVICAL REGION; M47.22 - OTHER SPONDYLOSIS WITH RADICULOPATHY, CERVICAL REGION (2) Impaired gait Code(s): R26.9 - UNSPECIFIED ABNORMALITIES OF GAIT AND MOBILITY (3) ANDRÉS (acute kidney injury) Code(s): N17.9 - ACUTE KIDNEY FAILURE, UNSPECIFIED (4) CAD (coronary artery disease) Code(s): I25.10 - ATHSCL HEART DISEASE OF [place] CORONARY ARTERY W/O ANG PCTRS Qualifiers: Coronary Disease-Associated Artery/Lesion type: [place] artery [place] vs. transplanted heart: [place] heart Associated angina: without angina Qualified Code(s): I25.10 - Atherosclerotic heart disease of [place] coronary artery without angina pectoris (5) Diabetes mellitus Code(s): E11.9 - TYPE 2 DIABETES MELLITUS WITHOUT COMPLICATIONS (6) Hyponatremia Code(s): E87.1 - HYPO-OSMOLALITY AND HYPONATREMIA (7) Acute renal failure Code(s): N17.9 - ACUTE KIDNEY FAILURE, UNSPECIFIED Qualifiers: Acute renal failure type: unspecified Qualified Code(s): N17.9 - Acute kidney failure, unspecified (8) Hypokalemia Code(s): E87.6 - HYPOKALEMIA (9) Blood clot in bladder Assessment/Plan: repeat US in 1 week; f/u Code(s): N32.89 - OTHER SPECIFIED DISORDERS OF [place] Assessment/Plan Probable [place] blood clot: repeat US in 1-2 weeks; f/u Renal, Cardio, NeuroSx, ID consults are appreciateda AM labs Pt is not cleared for surgery -pt's status to updated daily. Pt's codition was reviewed with pt's nurse and daughter.
--- NOTE | 2018-12-04 14:39 | PN ---
Progress Note, Physician History of Present Illness: stable no new issues - Current Medication List Current Medications: Active Medications Acetaminophen (Tylenol -) 500 mg PO Q6H PRN PRN Reason: PAIN Last Admin: 12/03/18 18:37 Dose: 500 mg Allopurinol (Zyloprim -) 100 mg PO DAILY [facility] Last Admin: 12/04/18 09:07 Dose: 100 mg Atorvastatin Calcium (Lipitor -) 20 mg PO HS [facility] Last Admin: 12/03/18 21:09 Dose: 20 mg Carvedilol (Coreg -) 12.5 mg PO BID [facility] Last Admin: 12/04/18 09:07 Dose: 12.5 mg Cinacalcet (Sensipar -) 30 mg PO DAILY [facility] Last Admin: 12/04/18 09:08 Dose: 30 mg Gabapentin (Neurontin -) 300 mg PO DAILY [facility] Last Admin: 12/04/18 09:08 Dose: 300 mg Glipizide (Glucotrol -) 5 mg PO TIDAC [facility] Last Admin: 12/04/18 11:15 Dose: 5 mg Hydralazine HCl (Apresoline -) 50 mg PO TID [facility] Last Admin: 12/04/18 13:07 Dose: 50 mg Insulin Aspart (Novolog Vial Sliding Scale -) 1 vial SQ [facility]; Protocol Last Admin: 12/04/18 11:14 Dose: Not Given Insulin Detemir (Levemir Vial) 22 units SQ [facility] Last Admin: 12/03/18 21:09 Dose: 22 units Isosorbide Mononitrate (Imdur -) 90 mg PO DAILY [facility] Last Admin: 12/04/18 09:07 Dose: 90 mg Latanoprost (Xalatan 0.005% Eye Drops -) 1 drop OU HS [facility] Last Admin: 12/03/18 21:10 Dose: 1 drop Levothyroxine Sodium (Synthroid -) 50 mcg PO AM [facility] Last Admin: 12/04/18 06:11 Dose: 50 mcg Polyethylene Glycol (Miralax (For Daily Use) -) 17 gm PO TID [facility] Last Admin: 12/04/18 13:07 Dose: Not Given Potassium Chloride (K-Dur -) 20 meq PO DAILY [facility] Last Admin: 12/04/18 09:07 Dose: 20 meq Ranitidine HCl (Zantac -) 150 mg PO BID [facility] Last Admin: 12/04/18 09:08 Dose: 150 mg Tamsulosin HCl (Flomax -) 0.4 mg PO DAILY@0830 [facility] Last Admin: 12/04/18 09:07 Dose: 0.4 mg Tramadol HCl (Ultram -) 50 mg PO Q8H PRN PRN Reason: PAIN LEVEL 6-10 - Objective Vital Signs: Vital Signs Temperature 97.7 F 12/04/18 14:29 Pulse Rate 68 12/04/18 14:29 Respiratory Rate 20 12/04/18 14:29 Blood Pressure 100/41 L 12/04/18 14:29 O2 Sat by Pulse Oximetry (%) 99 12/04/18 09:00 Constitutional: Yes: No Distress, Calm Cardiovascular: Yes: Regular Rate and Rhythm Respiratory: Yes: Regular, CTA Bilaterally Gastrointestinal: Yes: Normal Bowel Sounds, Soft Musculoskeletal: Yes: WNL Extremities: Yes: Other Neurological: Yes: Alert, Oriented Psychiatric: Yes: Alert, Oriented Labs: CBC, BMP 12/04/18 06:45 12/04/18 06:45 INR, PTT INR 0.97 (0.83-1.09) 11/26/18 15:46 Assessment/Plan Problem List - Problems (1) Leukocytosis Code(s): D72.829 - ELEVATED WHITE BLOOD CELL COUNT, UNSPECIFIED (2) Cervical spondylosis with myelopathy and radiculopathy Code(s): M47.12 - OTHER SPONDYLOSIS WITH MYELOPATHY, CERVICAL REGION; M47.22 - OTHER SPONDYLOSIS WITH RADICULOPATHY, CERVICAL REGION (3) Impaired gait Code(s): R26.9 - UNSPECIFIED ABNORMALITIES OF GAIT AND MOBILITY (4) ANDRÉS (acute kidney injury) Code(s): N17.9 - ACUTE KIDNEY FAILURE, UNSPECIFIED (5) CAD (coronary artery disease) Code(s): I25.10 - ATHSCL HEART DISEASE OF [place] CORONARY ARTERY W/O ANG PCTRS Qualifiers: Coronary Disease-Associated Artery/Lesion type: [place] artery [place] vs. transplanted heart: [place] heart Associated angina: without angina Qualified Code(s): I25.10 - Atherosclerotic heart disease of [place] coronary artery without angina pectoris (6) Diabetes mellitus Code(s): E11.9 - TYPE 2 DIABETES MELLITUS WITHOUT COMPLICATIONS (7) Hyponatremia Code(s): E87.1 - HYPO-OSMOLALITY AND HYPONATREMIA (8) Acute renal failure Code(s): N17.9 - ACUTE KIDNEY FAILURE, UNSPECIFIED Qualifiers: Acute renal failure type: unspecified Qualified Code(s): N17.9 - Acute kidney failure, unspecified (9) Hypokalemia Code(s): E87.6 - HYPOKALEMIA 10 abd pain plan wbc trending down rest as per the team monitor improving
[2018-12-04] MEDS: ACETAMINOPHEN 500 MG TABLET (FP) PO PRN ×2 (16:56→21:30)
--- NOTE | 2018-12-04 17:38 | PN ---
Progress Note (short form) - Note Progress Note: Renal follow up for ANDRÉS and hyponatremia Pt seen and examined at the bedside reports feeling tired abd discomfort now resolved no N/V, no fever or chills making urine Vital Signs Temperature 97.7 F 12/04/18 14:29 Pulse Rate 68 12/04/18 14:29 Respiratory Rate 20 12/04/18 14:29 Blood Pressure 100/41 L 12/04/18 14:29 O2 Sat by Pulse Oximetry (%) 99 12/04/18 09:00 Intake & Output 12/01/18 12/02/18 12/03/18 12/04/18 23:59 23:59 23:59 23:59 Intake Total 987 500 500 30 Balance 987 500 500 30 Weight 75.07 kg NAD RRR, no M/R CTA, no rales or wheeze soft, mild distension, no tenderness No LE edema, clubbing or cyanosis CBC, BMP 12/04/18 06:45 12/04/18 06:45 Current Medications Acetaminophen (Tylenol -) 500 mg PO Q6H PRN PRN Reason: PAIN Last Admin: 12/04/18 16:56 Dose: 500 mg Allopurinol (Zyloprim -) 100 mg PO DAILY [facility] Last Admin: 12/04/18 09:07 Dose: 100 mg Atorvastatin Calcium (Lipitor -) 20 mg PO HS [facility] Last Admin: 12/03/18 21:09 Dose: 20 mg Carvedilol (Coreg -) 12.5 mg PO BID [facility] Last Admin: 12/04/18 09:07 Dose: 12.5 mg Cinacalcet (Sensipar -) 30 mg PO DAILY [facility] Last Admin: 12/04/18 09:08 Dose: 30 mg Gabapentin (Neurontin -) 300 mg PO DAILY [facility] Last Admin: 12/04/18 09:08 Dose: 300 mg Glipizide (Glucotrol -) 5 mg PO TIDAC [facility] Last Admin: 12/04/18 16:57 Dose: 5 mg Hydralazine HCl (Apresoline -) 50 mg PO TID [facility] Last Admin: 12/04/18 13:07 Dose: 50 mg Insulin Aspart (Novolog Vial Sliding Scale -) 1 vial SQ ACHS [facility]; Protocol Last Admin: 12/04/18 16:58 Dose: Not Given Insulin Detemir (Levemir Vial) 22 units SQ HS [facility] Last Admin: 12/03/18 21:09 Dose: 22 units Isosorbide Mononitrate (Imdur -) 90 mg PO DAILY [facility] Last Admin: 12/04/18 09:07 Dose: 90 mg Latanoprost (Xalatan 0.005% Eye Drops -) 1 drop OU HS [facility] Last Admin: 12/03/18 21:10 Dose: 1 drop Levothyroxine Sodium (Synthroid -) 50 mcg PO AM [facility] Last Admin: 12/04/18 06:11 Dose: 50 mcg Polyethylene Glycol (Miralax (For Daily Use) -) 17 gm PO TID [facility] Last Admin: 12/04/18 13:07 Dose: Not Given Potassium Chloride (K-Dur -) 20 meq PO DAILY [facility] Last Admin: 12/04/18 09:07 Dose: 20 meq Ranitidine HCl (Zantac -) 150 mg PO BID [facility] Last Admin: 12/04/18 09:08 Dose: 150 mg Tamsulosin HCl (Flomax -) 0.4 mg PO DAILY@0830 [facility] Last Admin: 12/04/18 09:07 Dose: 0.4 mg Tramadol HCl (Ultram -) 50 mg PO Q8H PRN PRN Reason: PAIN LEVEL 6-10 83 year old [place] woman with history of CKD stage 4 (baseline Cr ~2, eGFR 25-30). CHF (diastolic dysfunction), DM type 2, anemia, hyperlipidemia who presented with generalized weakness and found to have hyponatremia, hypokalemia and ANDRÉS. #ANDRÉS likely due to hypovolemia in setting of diuretic use and poor solute intake #Hypovolemic hyponatremia #Hypokalemia form diuretics and poor oral intake #Metabolic alkalosis (contraction alkalosis) #Diastolic HF w/o evidence of CHF exacerbation #Hx of Anemia #Cervical radiculopathy #Peripheral eosinophilia Renal function and stable Trend BUN/Cr on oral diet alone US of bladder noted, shows mass like density in posterior bladder likely representing a blood clot (likely related to bladder catheter insertion) Can repeat US in 5-7 days or consider urology consult for further evaluation pt still has diminished oral intake, encouraged improved oral intake Trend Na daily etiology of eosinophilia unclear check urine Eosinopils Wm Tian DO Thank you Wm Tian DO
[2018-12-04] MEDS: ATORVASTATIN CA 20 MG TABLET (FP) PO SCH (21:30)
[2018-12-04] MEDS: LATANOPROST 0.005% OPHTH SOLN 2.5ML BOTTLE OU SCH (21:31)
[2018-12-04] MEDS: INSULIN (LEVEMIR) 100 UNITS/ML UNITS SQ SCH (21:40)
[2018-12-05] MEDS: POLYETHYLENE GLYCOL 3350 119 GM BTL PO SCH ×3 (06:04→23:22)
[2018-12-05] MEDS: LEVOTHYROXINE NA 50 MCG TABLET (FP) PO SCH (06:05)
[2018-12-05] MEDS: glipiZIDE 5 MG TABLET (FP) PO SCH ×3 (06:05→17:21)
[2018-12-05] MEDS: hydrALAZINE HCL 50 MG TABLET (FP) PO SCH ×3 (06:05→23:19)
[2018-12-05] MEDS: INSULIN SLIDING SCALE (NOVOLOG) 1 VIAL SQ SCH ×4 (06:15→23:27)
[2018-12-05 08:53] LABS: BASO % 0.6 % (0-2.0); EOS % 11.4 % (0-4.5); HEMATOCRIT 32.2 % (32.4-45.2); HEMOGLOBIN 10.7 GM/dL (10.7-15.3); LYMPH % 12.8 % (8-40); MCH 26.5 pg (25.7-33.7); MCHC 33.1 g/dl (32.0-36.0); MEAN PLT VOLUME 7.8 fl (7.5-11.1); MONO % 11.2 % (3.8-10.2); PLATELET COUNT 245 K/MM3 (134-434); RBC 4.03 M/mm3 (3.60-5.2); WHITE BLOOD COUNT 10.9 K/mm3 (4.0-10.0)
[2018-12-05 09:24] LABS: BLOOD UREA NITROGEN 41.8 mg/dL (7-18); CALCIUM 8.9 mg/dL (8.5-10.1); MAGNESIUM 2.1 mg/dL (1.8-2.4); PHOSPHOROUS 3.4 mg/dL (2.5-4.9); POTASSIUM 4.3 mmol/L (3.5-5.1)
[2018-12-05] MEDS: CARVEDILOL 12.5 MG TABLET (FP) PO SCH ×2 (09:26→23:20)
[2018-12-05] MEDS: ALLOPURINOL 100 MG TABLET (FP) PO SCH (09:26)
[2018-12-05] MEDS: GABAPENTIN 300 MG CAPSULE (FP) PO SCH (09:27)
[2018-12-05] MEDS: TAMSULOSIN HCL 0.4 MG CAP PO SCH (09:27)
[2018-12-05] MEDS: RANITIDINE HCL 150 MG TABLET (FP) PO SCH ×2 (09:28→23:18)
[2018-12-05] MEDS: POTASSIUM CHLORIDE TABS 20 MEQ TABLET.ER (FP) PO SCH (09:28)
[2018-12-05] MEDS: ISOSORBIDE MONONITRATE 30 MG TAB.SR.24H (FP) PO SCH (09:28)
[2018-12-05] MEDS ORDERED: PT OWN MED DRAWER 7, Y5N ONE (10:23)
[2018-12-05] MEDS: CINACALCET HCL 30 MG TAB (FP) PO SCH (10:26)
[2018-12-05] MEDS ORDERED: INSULIN (NOVOLOG) ASPART 100 UNITS/ML 10ML VIAL ONE (12:07)
--- NOTE | 2018-12-05 12:15 | PN ---
Progress Note, Physician History of Present Illness: stable no new issues nephro note noted feels weak - Current Medication List Current Medications: Active Medications Acetaminophen (Tylenol -) 500 mg PO Q6H PRN PRN Reason: PAIN Last Admin: 12/04/18 21:30 Dose: 500 mg Allopurinol (Zyloprim -) 100 mg PO DAILY [facility] Last Admin: 12/05/18 09:26 Dose: 100 mg Atorvastatin Calcium (Lipitor -) 20 mg PO [facility] Last Admin: 12/04/18 21:30 Dose: 20 mg Carvedilol (Coreg -) 12.5 mg PO BID [facility] Last Admin: 12/05/18 09:26 Dose: 12.5 mg Cinacalcet (Sensipar -) 30 mg PO DAILY [facility] Last Admin: 12/05/18 10:26 Dose: 30 mg Gabapentin (Neurontin -) 300 mg PO DAILY [facility] Last Admin: 12/05/18 09:27 Dose: 300 mg Glipizide (Glucotrol -) 5 mg PO TIDAC [facility] Last Admin: 12/05/18 06:05 Dose: 5 mg Hydralazine HCl (Apresoline -) 50 mg PO TID [facility] Last Admin: 12/05/18 06:05 Dose: 50 mg Insulin Aspart (Novolog Vial Sliding Scale -) [address] [facility]; Protocol Last Admin: 12/05/18 06:15 Dose: Not Given Insulin Detemir (Levemir Vial) 22 units SQ [facility] Last Admin: 12/04/18 21:40 Dose: 22 units Isosorbide Mononitrate (Imdur -) 90 mg PO DAILY [facility] Last Admin: 12/05/18 09:28 Dose: 90 mg Latanoprost (Xalatan 0.005% Eye Drops -) 1 drop OU [facility] Last Admin: 12/04/18 21:31 Dose: 1 drop Levothyroxine Sodium (Synthroid -) 50 mcg PO AM [facility] Last Admin: 12/05/18 06:05 Dose: 50 mcg Polyethylene Glycol (Miralax (For Daily Use) -) 17 gm PO TID [facility] Last Admin: 12/05/18 06:04 Dose: Not Given Potassium Chloride (K-Dur -) 20 meq PO DAILY [facility] Last Admin: 12/05/18 09:28 Dose: 20 meq Ranitidine HCl (Zantac -) 150 mg PO BID [facility] Last Admin: 12/05/18 09:28 Dose: 150 mg Tamsulosin HCl (Flomax -) 0.4 mg PO DAILY@0830 [facility] Last Admin: 12/05/18 09:27 Dose: 0.4 mg Tramadol HCl (Ultram -) 50 mg PO Q8H PRN PRN Reason: PAIN LEVEL 6-10 - Objective Vital Signs: Vital Signs Temperature 98 F 12/05/18 10:00 Pulse Rate 75 12/05/18 10:00 Respiratory Rate 20 12/05/18 10:00 Blood Pressure 144/66 12/05/18 10:00 O2 Sat by Pulse Oximetry (%) 99 12/04/18 21:00 Constitutional: Yes: No Distress, Calm Cardiovascular: Yes: S1, S2 Respiratory: Yes: Regular, CTA Bilaterally Gastrointestinal: Yes: Normal Bowel Sounds, Soft Musculoskeletal: Yes: WNL Extremities: Yes: Other Neurological: Yes: Alert, Oriented Psychiatric: Yes: Alert, Oriented Labs: CBC, BMP 12/05/18 07:36 12/05/18 07:36 INR, PTT INR 0.97 (0.83-1.09) 11/26/18 15:46 Assessment/Plan Problem List - Problems (1) Leukocytosis Code(s): D72.829 - ELEVATED WHITE BLOOD CELL COUNT, UNSPECIFIED (2) Cervical spondylosis with myelopathy and radiculopathy Code(s): M47.12 - OTHER SPONDYLOSIS WITH MYELOPATHY, CERVICAL REGION; M47.22 - OTHER SPONDYLOSIS WITH RADICULOPATHY, CERVICAL REGION (3) Impaired gait Code(s): R26.9 - UNSPECIFIED ABNORMALITIES OF GAIT AND MOBILITY (4) ANDRÉS (acute kidney injury) Code(s): N17.9 - ACUTE KIDNEY FAILURE, UNSPECIFIED (5) CAD (coronary artery disease) Code(s): I25.10 - ATHSCL HEART DISEASE OF [place] CORONARY ARTERY W/O ANG PCTRS Qualifiers: Coronary Disease-Associated Artery/Lesion type: [place] artery [place] vs. transplanted heart: [place] heart Associated angina: without angina Qualified Code(s): I25.10 - Atherosclerotic heart disease of [place] coronary artery without angina pectoris (6) Diabetes mellitus Code(s): E11.9 - TYPE 2 DIABETES MELLITUS WITHOUT COMPLICATIONS (7) Hyponatremia Code(s): E87.1 - HYPO-OSMOLALITY AND HYPONATREMIA (8) Acute renal failure Code(s): N17.9 - ACUTE KIDNEY FAILURE, UNSPECIFIED Qualifiers: Acute renal failure type: unspecified Qualified Code(s): N17.9 - Acute kidney failure, unspecified (9) Hypokalemia Code(s): E87.6 - HYPOKALEMIA 10 abd pain plan wbc marginally up continue current mgmt close watch rest as per the team
--- NOTE | 2018-12-05 14:43 | PN ---
Progress Note, Physician History of Present Illness: Pt w/o fever, CP, palpitations, SOB, abd pain. - Current Medication List Current Medications: Active Medications Acetaminophen (Tylenol -) 500 mg PO Q6H PRN PRN Reason: PAIN Last Admin: 12/04/18 21:30 Dose: 500 mg Allopurinol (Zyloprim -) 100 mg PO DAILY [facility] Last Admin: 12/05/18 09:26 Dose: 100 mg Atorvastatin Calcium (Lipitor -) 20 mg PO [facility] Last Admin: 12/04/18 21:30 Dose: 20 mg Carvedilol (Coreg -) 12.5 mg PO BID [facility] Last Admin: 12/05/18 09:26 Dose: 12.5 mg Cinacalcet (Sensipar -) 30 mg PO DAILY [facility] Last Admin: 12/05/18 10:26 Dose: 30 mg Gabapentin (Neurontin -) 300 mg PO DAILY [facility] Last Admin: 12/05/18 09:27 Dose: 300 mg Glipizide (Glucotrol -) 5 mg PO TIDAC [facility] Last Admin: 12/05/18 12:23 Dose: 5 mg Hydralazine HCl (Apresoline -) 50 mg PO TID [facility] Last Admin: 12/05/18 06:05 Dose: 50 mg Insulin Aspart (Novolog Vial Sliding Scale -) 1 vial SQ [facility]; Protocol Last Admin: 12/05/18 12:24 Dose: Not Given Insulin Detemir (Levemir Vial) 22 units SQ [facility] Last Admin: 12/04/18 21:40 Dose: 22 units Isosorbide Mononitrate (Imdur -) 90 mg PO DAILY [facility] Last Admin: 12/05/18 09:28 Dose: 90 mg Latanoprost (Xalatan 0.005% Eye Drops -) 1 drop OU [facility] Last Admin: 12/04/18 21:31 Dose: 1 drop Levothyroxine Sodium (Synthroid -) 50 mcg PO AM [facility] Last Admin: 12/05/18 06:05 Dose: 50 mcg Polyethylene Glycol (Miralax (For Daily Use) -) 17 gm PO TID [facility] Last Admin: 12/05/18 06:04 Dose: Not Given Potassium Chloride (K-Dur -) 20 meq PO DAILY [facility] Last Admin: 12/05/18 09:28 Dose: 20 meq Ranitidine HCl (Zantac -) 150 mg PO BID [facility] Last Admin: 12/05/18 09:28 Dose: 150 mg Tamsulosin HCl (Flomax -) 0.4 mg PO DAILY@0830 [facility] Last Admin: 12/05/18 09:27 Dose: 0.4 mg Tramadol HCl (Ultram -) 50 mg PO Q8H PRN PRN Reason: PAIN LEVEL 6-10 - Objective Vital Signs: Vital Signs Temperature 98 F 12/05/18 10:00 Pulse Rate 75 12/05/18 10:00 Respiratory Rate 20 12/05/18 10:00 Blood Pressure 144/66 12/05/18 10:00 O2 Sat by Pulse Oximetry (%) 99 12/04/18 21:00 Constitutional: Yes: No Distress, Calm Cardiovascular: Yes: Regular Rate and Rhythm, S1, S2 Respiratory: Yes: Regular, CTA Bilaterally. No: Rales Gastrointestinal: Yes: Normal Bowel Sounds, Soft. No: Tenderness Edema: No Neurological: Yes: Alert, Oriented Labs: CBC, BMP 12/05/18 07:36 12/05/18 07:36 INR, PTT INR 0.97 (0.83-1.09) 11/26/18 15:46 UCX: + E Coli, > 100, 000 Problem List - Problems (1) Cervical spondylosis with myelopathy and radiculopathy Code(s): M47.12 - OTHER SPONDYLOSIS WITH MYELOPATHY, CERVICAL REGION; M47.22 - OTHER SPONDYLOSIS WITH RADICULOPATHY, CERVICAL REGION (2) Impaired gait Code(s): R26.9 - UNSPECIFIED ABNORMALITIES OF GAIT AND MOBILITY (3) ANDRÉS (acute kidney injury) Code(s): N17.9 - ACUTE KIDNEY FAILURE, UNSPECIFIED (4) CAD (coronary artery disease) Code(s): I25.10 - ATHSCL HEART DISEASE OF [place] CORONARY ARTERY W/O ANG PCTRS Qualifiers: Coronary Disease-Associated Artery/Lesion type: [place] artery [place] vs. transplanted heart: [place] heart Associated angina: without angina Qualified Code(s): I25.10 - Atherosclerotic heart disease of [place] coronary artery without angina pectoris (5) Diabetes mellitus Code(s): E11.9 - TYPE 2 DIABETES MELLITUS WITHOUT COMPLICATIONS (6) Hyponatremia Code(s): E87.1 - HYPO-OSMOLALITY AND HYPONATREMIA (7) Acute renal failure Code(s): N17.9 - ACUTE KIDNEY FAILURE, UNSPECIFIED Qualifiers: Acute renal failure type: unspecified Qualified Code(s): N17.9 - Acute kidney failure, unspecified (8) Hypokalemia Code(s): E87.6 - HYPOKALEMIA (9) Blood clot in bladder Code(s): N32.89 - OTHER SPECIFIED DISORDERS OF [place] (10) UTI (urinary tract infection) Assessment/Plan: Start Ceftriaxone Code(s): N39.0 - URINARY TRACT INFECTION, SITE NOT SPECIFIED Assessment/Plan Probable Bladder blood clot: repeat US in 1-2 weeks; f/u Renal, Cardio, NeuroSx, ID consults are appreciated Pt's case was d/w Dr. Lawrence; starty Ceftriaxone AM labs Pt is not cleared for surgery -pt's status to updated daily. Pt's codition was reviewed with pt's nurse and daughter.
[2018-12-05] MEDS ORDERED: cefTRIAXone SODIUM 1 GM VIAL ONE (16:38)
[2018-12-05] MEDS ORDERED: DEXTROSE 5%-WATER - 50 ML IVPB ONE (16:39)
[2018-12-05] MEDS: CEFTRIAXONE 1 GM in DEXTROSE 5%-WATER - 50 ML IVPB SCH (18:06)
--- NOTE | 2018-12-05 18:13 | PN ---
Progress Note (short form) - Note Progress Note: Renal follow up for ANDRÉS and hyponatremia Pt seen and examined at the bedside sitting in chair reports having loose stools no sob, abd pain, fever or chills Vital Signs Temperature 98.0 F 12/05/18 15:00 Pulse Rate 61 12/05/18 15:00 Respiratory Rate 20 12/05/18 15:00 Blood Pressure 145/54 L 12/05/18 15:00 O2 Sat by Pulse Oximetry (%) 99 12/04/18 21:00 Intake & Output 12/02/18 12/03/18 12/04/18 12/05/18 23:59 23:59 23:59 23:59 Intake Total 500 500 250 Balance 500 500 250 NAD RRR, no M/R CTA, no rales or wheeze soft, mild distension, no tenderness No LE edema, clubbing or cyanosis CBC, BMP 12/05/18 07:36 12/05/18 07:36 Current Medications Acetaminophen (Tylenol -) 500 mg PO Q6H PRN PRN Reason: PAIN Last Admin: 12/04/18 21:30 Dose: 500 mg Allopurinol (Zyloprim -) 100 mg PO DAILY [facility] Last Admin: 12/05/18 09:26 Dose: 100 mg Atorvastatin Calcium (Lipitor -) 20 mg PO HS [facility] Last Admin: 12/04/18 21:30 Dose: 20 mg Carvedilol (Coreg -) 12.5 mg PO BID [facility] Last Admin: 12/05/18 09:26 Dose: 12.5 mg Cinacalcet (Sensipar -) 30 mg PO DAILY [facility] Last Admin: 12/05/18 10:26 Dose: 30 mg Gabapentin (Neurontin -) 300 mg PO DAILY [facility] Last Admin: 12/05/18 09:27 Dose: 300 mg Glipizide (Glucotrol -) 5 mg PO TIDAC [facility] Last Admin: 12/05/18 17:21 Dose: 5 mg Hydralazine HCl (Apresoline -) 50 mg PO TID [facility] Last Admin: 12/05/18 15:03 Dose: 50 mg Ceftriaxone Sodium 1 gm/ (Dextrose) 50 mls @ 100 mls/hr IVPB DAILY [facility] Last Admin: 12/05/18 18:06 Dose: 100 mls/hr Insulin Aspart (Novolog Vial Sliding Scale -) 1 vial SQ ACHS [facility]; Protocol Last Admin: 12/05/18 18:07 Dose: Not Given Insulin Detemir (Levemir Vial) 22 units SQ HS [facility] Last Admin: 12/04/18 21:40 Dose: 22 units Isosorbide Mononitrate (Imdur -) 90 mg PO DAILY [facility] Last Admin: 12/05/18 09:28 Dose: 90 mg Latanoprost (Xalatan 0.005% Eye Drops -) 1 drop OU HS [facility] Last Admin: 12/04/18 21:31 Dose: 1 drop Levothyroxine Sodium (Synthroid -) 50 mcg PO AM [facility] Last Admin: 12/05/18 06:05 Dose: 50 mcg Polyethylene Glycol (Miralax (For Daily Use) -) 17 gm PO TID [facility] Last Admin: 12/05/18 15:04 Dose: Not Given Potassium Chloride (K-Dur -) 20 meq PO DAILY [facility] Last Admin: 12/05/18 09:28 Dose: 20 meq Ranitidine HCl (Zantac -) 150 mg PO BID [facility] Last Admin: 12/05/18 09:28 Dose: 150 mg Tamsulosin HCl (Flomax -) 0.4 mg PO DAILY@0830 [facility] Last Admin: 12/05/18 09:27 Dose: 0.4 mg Tramadol HCl (Ultram -) 50 mg PO Q8H PRN PRN Reason: PAIN LEVEL 6-10 83 year old [place] woman with history of CKD stage 4 (baseline Cr ~2, eGFR 25-30). CHF (diastolic dysfunction), DM type 2, anemia, hyperlipidemia who presented with generalized weakness and found to have hyponatremia, hypokalemia and ANDRÉS. #ANDRÉS likely due to hypovolemia in setting of diuretic use and poor solute intake #Hypovolemic hyponatremia #Hypokalemia form diuretics and poor oral intake #Metabolic alkalosis (contraction alkalosis) #Diastolic HF w/o evidence of CHF exacerbation #Hx of Anemia #Cervical radiculopathy #Peripheral eosinophilia Renal function stable, serum Na stable US of bladder noted, shows mass like density in posterior bladder likely representing a blood clot (likely related to bladder catheter insertion) Plan to have repeat US in 5-7 days etiology of eosinophilia unclear, however it is improving check urine Eosinopils discharge planning as per primary Wm Tian DO Thank you Wm Tian DO
[2018-12-05] MEDS: ACETAMINOPHEN 500 MG TABLET (FP) PO PRN (23:17)
[2018-12-05] MEDS: ATORVASTATIN CA 20 MG TABLET (FP) PO SCH (23:19)
[2018-12-05] MEDS: LATANOPROST 0.005% OPHTH SOLN 2.5ML BOTTLE OU SCH (23:22)
[2018-12-05] MEDS: INSULIN (LEVEMIR) 100 UNITS/ML UNITS SQ SCH (23:27)
[2018-12-06] MEDS: POLYETHYLENE GLYCOL 3350 119 GM BTL PO SCH ×3 (05:31→22:04)
[2018-12-06] MEDS: hydrALAZINE HCL 50 MG TABLET (FP) PO SCH ×3 (05:32→22:04)
[2018-12-06] MEDS: glipiZIDE 5 MG TABLET (FP) PO SCH ×4 (06:12→17:47)
[2018-12-06] MEDS: LEVOTHYROXINE NA 50 MCG TABLET (FP) PO SCH (06:12)
[2018-12-06] MEDS: INSULIN SLIDING SCALE (NOVOLOG) 1 VIAL SQ SCH ×4 (06:13→22:04)
[2018-12-06 06:56] LABS: HEMATOCRIT 31.9 % (32.4-45.2); HEMOGLOBIN 10.6 GM/dL (10.7-15.3); MCH 26.6 pg (25.7-33.7); MCHC 33.2 g/dl (32.0-36.0); MEAN CELL VOLUME 80.2 fl (80-96); MEAN PLT VOLUME 7.5 fl (7.5-11.1); PLATELET COUNT 247 K/MM3 (134-434); RBC 3.98 M/mm3 (3.60-5.2); RDW 18.5 % (11.6-15.6); WHITE BLOOD COUNT 8.9 K/mm3 (4.0-10.0)
[2018-12-06 07:22] LABS: ALBUMIN 3.3 g/dl (3.4-5.0); BILIRUBIN,TOTAL 0.6 mg/dL (0.2-1); CALCIUM 8.7 mg/dL (8.5-10.1); CREATININE 1.7 mg/dL (0.55-1.3); MAGNESIUM 2.2 mg/dL (1.8-2.4); PHOSPHOROUS 3.4 mg/dL (2.5-4.9); POTASSIUM 4.6 mmol/L (3.5-5.1); TOT PROT 6.9 g/dl (6.4-8.2)
[2018-12-06] MEDS: TAMSULOSIN HCL 0.4 MG CAP PO SCH (09:30)
[2018-12-06] MEDS ORDERED: DEXTROSE 5%-WATER - 50 ML IVPB ONE (09:50)
[2018-12-06] MEDS ORDERED: cefTRIAXone SODIUM 1 GM VIAL ONE (09:50)
[2018-12-06] MEDS ORDERED: PT OWN MED DRAWER 7, Y5N ONE (09:51)
[2018-12-06] MEDS: ALLOPURINOL 100 MG TABLET (FP) PO SCH (10:00)
[2018-12-06] MEDS: ISOSORBIDE MONONITRATE 30 MG TAB.SR.24H (FP) PO SCH ×2 (10:00→10:35)
[2018-12-06] MEDS: RANITIDINE HCL 150 MG TABLET (FP) PO SCH ×2 (10:00→22:04)
[2018-12-06] MEDS: POTASSIUM CHLORIDE TABS 20 MEQ TABLET.ER (FP) PO SCH (10:00)
[2018-12-06] MEDS: GABAPENTIN 300 MG CAPSULE (FP) PO SCH (10:00)
[2018-12-06] MEDS: CINACALCET HCL 30 MG TAB (FP) PO SCH (10:00)
[2018-12-06] MEDS: CARVEDILOL 12.5 MG TABLET (FP) PO SCH ×2 (10:01→22:04)
[2018-12-06] MEDS: CEFTRIAXONE 1 GM in DEXTROSE 5%-WATER - 50 ML IVPB SCH (10:01)
[2018-12-06] MEDS: traMADol HCL 50 MG TABLET PO PRN ×2 (10:01→19:12)
--- NOTE | 2018-12-06 12:52 | PN ---
Progress Note, Physician History of Present Illness: Reports reproducible left-sided chest wall tenderness. C-spine surgery deferred pending correction of electrolyte abnormalities and renal dysfunction since improved. - Current Medication List Current Medications: Active Medications Acetaminophen (Tylenol -) 500 mg PO Q6H PRN PRN Reason: PAIN Last Admin: 12/05/18 23:17 Dose: 500 mg Allopurinol (Zyloprim -) 100 mg PO DAILY [facility] Last Admin: 12/06/18 10:00 Dose: 100 mg Atorvastatin Calcium (Lipitor -) 20 mg PO HS [facility] Last Admin: 12/05/18 23:19 Dose: 20 mg Carvedilol (Coreg -) 12.5 mg PO BID [facility] Last Admin: 12/06/18 10:01 Dose: 12.5 mg Cinacalcet (Sensipar -) 30 mg PO DAILY [facility] Last Admin: 12/06/18 10:00 Dose: 30 mg Gabapentin (Neurontin -) 300 mg PO DAILY [facility] Last Admin: 12/06/18 10:00 Dose: 300 mg Glipizide (Glucotrol -) [address] [facility] Hydralazine HCl (Apresoline -) 50 mg PO TID [facility] Last Admin: 12/06/18 05:32 Dose: 50 mg Ceftriaxone Sodium 1 gm/ (Dextrose) 50 mls @ 100 mls/hr IVPB DAILY [facility] Last Admin: 12/06/18 10:01 Dose: 100 mls/hr Insulin Aspart (Novolog Vial Sliding Scale -) 1 vial SQ [facility]; Protocol Last Admin: 12/06/18 06:13 Dose: Not Given Insulin Detemir (Levemir Vial) 22 units SQ [facility] Last Admin: 12/05/18 23:27 Dose: 22 units Isosorbide Mononitrate (Imdur -) 90 mg PO DAILY [facility] Last Admin: 12/06/18 10:00 Dose: 90 mg Latanoprost (Xalatan 0.005% Eye Drops -) 1 drop OU [facility] Last Admin: 12/05/18 23:22 Dose: 1 drop Levothyroxine Sodium (Synthroid -) 50 mcg PO AM [facility] Last Admin: 12/06/18 06:12 Dose: 50 mcg Polyethylene Glycol (Miralax (For Daily Use) -) 17 gm PO TID [facility] Last Admin: 12/06/18 05:31 Dose: Not Given Potassium Chloride (K-Dur -) 20 meq PO DAILY [facility] Last Admin: 12/06/18 10:00 Dose: 20 meq Ranitidine HCl (Zantac -) 150 mg PO BID [facility] Last Admin: 12/06/18 10:00 Dose: 150 mg Tamsulosin HCl (Flomax -) 0.4 mg PO DAILY@0830 [facility] Last Admin: 12/06/18 09:30 Dose: 0.4 mg Tramadol HCl (Ultram -) 50 mg PO Q8H PRN PRN Reason: PAIN LEVEL 6-10 Last Admin: 12/06/18 10:01 Dose: 50 mg - Objective Vital Signs: Vital Signs Temperature 98.3 F 12/06/18 09:53 Pulse Rate 73 12/06/18 09:53 Respiratory Rate 19 12/06/18 09:53 Blood Pressure 157/69 12/06/18 09:53 O2 Sat by Pulse Oximetry (%) 99 12/05/18 21:00 Constitutional: Yes: No Distress, Calm Neck: Yes: Supple Cardiovascular: Yes: Regular Rate and Rhythm Respiratory: Yes: Regular, Diminished Gastrointestinal: Yes: Normal Bowel Sounds, Soft, Abdomen, Obese Edema: No Labs: CBC, BMP 12/06/18 06:10 12/06/18 06:10 INR, PTT INR 0.97 (0.83-1.09) 11/26/18 15:46 Problem List - Problems (1) Cervical spondylosis with myelopathy and radiculopathy Code(s): M47.12 - OTHER SPONDYLOSIS WITH MYELOPATHY, CERVICAL REGION; M47.22 - OTHER SPONDYLOSIS WITH RADICULOPATHY, CERVICAL REGION (2) Hypokalemia Code(s): E87.6 - HYPOKALEMIA (3) CAD (coronary artery disease) Code(s): I25.10 - ATHSCL HEART DISEASE OF [place] CORONARY ARTERY W/O ANG PCTRS Qualifiers: Coronary Disease-Associated Artery/Lesion type: [place] artery [place] vs. transplanted heart: [place] heart Associated angina: without angina Qualified Code(s): I25.10 - Atherosclerotic heart disease of [place] coronary artery without angina pectoris (4) Diabetes mellitus Code(s): E11.9 - TYPE 2 DIABETES MELLITUS WITHOUT COMPLICATIONS (5) Hyponatremia Code(s): E87.1 - HYPO-OSMOLALITY AND HYPONATREMIA (6) Non-occlusive coronary artery disease Code(s): I25.10 - ATHSCL HEART DISEASE OF [place] CORONARY ARTERY W/O ANG PCTRS (7) Diabetes mellitus with diabetic cardiomyopathy Code(s): E11.59 - TYPE 2 DIABETES MELLITUS WITH OTH CIRCULATORY COMPLICATIONS; I43 - CARDIOMYOPATHY IN DISEASES CLASSIFIED ELSEWHERE (8) Endothelial dysfunction of coronary artery Code(s): I99.8 - OTHER DISORDER OF CIRCULATORY SYSTEM (9) Hyperlipidemia Code(s): E78.5 - HYPERLIPIDEMIA, UNSPECIFIED Qualifiers: Hyperlipidemia type: pure hypercholesterolemia Qualified Code(s): E78.00 - Pure hypercholesterolemia, unspecified; E78.0 - Pure hypercholesterolemia (10) Hypertension Code(s): I10 - ESSENTIAL (PRIMARY) HYPERTENSION Qualifiers: Hypertension type: essential hypertension Qualified Code(s): I10 - Essential (primary) hypertension (11) Hypothyroidism Code(s): E03.9 - HYPOTHYROIDISM, UNSPECIFIED Qualifiers: Hypothyroidism type: unspecified Qualified Code(s): E03.9 - Hypothyroidism , unspecified (12) [id number] kidney injury Code(s): N17.9 - ACUTE KIDNEY FAILURE, UNSPECIFIED; N18.9 - CHRONIC KIDNEY DISEASE, UNSPECIFIED Assessment/Plan 1. Spinal stenosis, cervical radiculopathy 2. Atypical chest wall pain (reproducible) 3. CAD - non-obstructive, angina pectoris 4. HTN 5. Hypercholesterolemia 6. Type 2 DM 7. Hypothyroidism 8. CKD 9. LV diastolic dysfunction without evidence of failure 10. Hypovolemic hyponatremia and hypokalemia from diuretics and poor oral intake 11. UTI 12. Metabolic alkalosis (contraction alkalosis) 13. Posterior bladder clot from [place] trauma PLAN: 1. Na and renal function improved 2. Tentative neurosurgery when cleared 3. Continue Carvedilol 12.5 bid as tolerated 4. Imdur 90 qd and Hydralazine 50 tid as tolerated 5. Lipitor 20 qhs 6. Ecotrin has been held 7. There is no absolute contraindication for surgery in view of absence of ischemic symptoms, decompensated congestive heart failure and absence of malignant arrhythmias. 10. ID input noted, course of Rocephin, repeat bladder scan 11. Analgesia as needed
--- NOTE | 2018-12-06 14:30 | PN ---
Progress Note (short form) - Note Progress Note: Renal follow up for ANDRÉS and hyponatremia Pt seen and examined at the bedside complains of left sided shoulder and chest wall pain no sob, abd pain, N/V making urine Vital Signs Temperature 97.5 F L 12/06/18 14:27 Pulse Rate 65 12/06/18 14:27 Respiratory Rate 18 12/06/18 14:27 Blood Pressure 133/76 12/06/18 14:27 O2 Sat by Pulse Oximetry (%) 99 12/05/18 21:00 Intake & Output 12/03/18 12/04/18 12/05/18 12/06/18 23:59 23:59 23:59 23:59 Intake Total 500 250 100 30 Balance 500 250 100 30 NAD RRR, no M/R CTA, no rales or wheeze soft, mild distension, no tenderness No LE edema, clubbing or cyanosis CBC, BMP 12/06/18 06:10 12/06/18 06:10 Current Medications Acetaminophen (Tylenol -) 500 mg PO Q6H PRN PRN Reason: PAIN Last Admin: 12/05/18 23:17 Dose: 500 mg Allopurinol (Zyloprim -) 100 mg PO DAILY [facility] Last Admin: 12/06/18 10:00 Dose: 100 mg Atorvastatin Calcium (Lipitor -) 20 mg PO HS [facility] Last Admin: 12/05/18 23:19 Dose: 20 mg Carvedilol (Coreg -) 12.5 mg PO BID [facility] Last Admin: 12/06/18 10:01 Dose: 12.5 mg Cinacalcet (Sensipar -) 30 mg PO DAILY [facility] Last Admin: 12/06/18 10:00 Dose: 30 mg Gabapentin (Neurontin -) 300 mg PO DAILY [facility] Last Admin: 12/06/18 10:00 Dose: 300 mg Glipizide (Glucotrol -) 5 mg PO PC [facility] Last Admin: 12/06/18 13:16 Dose: 5 mg Hydralazine HCl (Apresoline -) 50 mg PO TID [facility] Last Admin: 12/06/18 13:16 Dose: 50 mg Ceftriaxone Sodium 1 gm/ (Dextrose) 50 mls @ 100 mls/hr IVPB DAILY [facility] Last Admin: 12/06/18 10:01 Dose: 100 mls/hr Insulin Aspart (Novolog Vial Sliding Scale -) 1 vial SQ ACHS [facility]; Protocol Last Admin: 12/06/18 12:16 Dose: Not Given Insulin Detemir (Levemir Vial) 22 units SQ HS [facility] Last Admin: 12/05/18 23:27 Dose: 22 units Isosorbide Mononitrate (Imdur -) 90 mg PO DAILY [facility] Last Admin: 12/06/18 10:00 Dose: 90 mg Latanoprost (Xalatan 0.005% Eye Drops -) 1 drop OU HS [facility] Last Admin: 12/05/18 23:22 Dose: 1 drop Levothyroxine Sodium (Synthroid -) 50 mcg PO AM [facility] Last Admin: 12/06/18 06:12 Dose: 50 mcg Polyethylene Glycol (Miralax (For Daily Use) -) 17 gm PO TID [facility] Last Admin: 12/06/18 13:17 Dose: Not Given Potassium Chloride (K-Dur -) 20 meq PO DAILY [facility] Last Admin: 12/06/18 10:00 Dose: 20 meq Ranitidine HCl (Zantac -) 150 mg PO BID [facility] Last Admin: 12/06/18 10:00 Dose: 150 mg Tamsulosin HCl (Flomax -) 0.4 mg PO DAILY@0830 [facility] Last Admin: 12/06/18 09:30 Dose: 0.4 mg Tramadol HCl (Ultram -) 50 mg PO Q8H PRN PRN Reason: PAIN LEVEL 6-10 Last Admin: 12/06/18 10:01 Dose: 50 mg 83 year old [place] woman with history of CKD stage 4 (baseline Cr ~2, eGFR 25-30). CHF (diastolic dysfunction), DM type 2, anemia, hyperlipidemia who presented with generalized weakness and found to have hyponatremia, hypokalemia and ANDRÉS. #ANDRÉS likely due to hypovolemia in setting of diuretic use and poor solute intake #Hypovolemic hyponatremia (resolved) #Metabolic alkalosis (contraction alkalosis) #Diastolic HF w/o evidence of CHF exacerbation #Hx of Anemia #Cervical radiculopathy #Peripheral eosinophilia #Chest pain Renal function stable, serum Na stable US of bladder noted, shows mass like density in posterior bladder likely representing a blood clot (likely related to bladder catheter insertion).Plan to have repeat US in 5-7 days etiology of eosinophilia unclear. Urine eosinophils improving discharge planning as per primary EKG and work up for chest pain as per cardiology check X-ray of shoulder to r/o structural cause of shoulder pain Ca and Phos WNL continue senspiar Wm Tian DO Thank you Wm Tian DO
--- NOTE | 2018-12-06 15:36 | PN ---
Progress Note, Physician History of Present Illness: doing well no new issues - Current Medication List Current Medications: Active Medications Acetaminophen (Tylenol -) 500 mg PO Q6H PRN PRN Reason: PAIN Last Admin: 12/05/18 23:17 Dose: 500 mg Allopurinol (Zyloprim -) 100 mg PO DAILY [facility] Last Admin: 12/06/18 10:00 Dose: 100 mg Atorvastatin Calcium (Lipitor -) 20 mg PO HS [facility] Last Admin: 12/05/18 23:19 Dose: 20 mg Carvedilol (Coreg -) 12.5 mg PO BID [facility] Last Admin: 12/06/18 10:01 Dose: 12.5 mg Cinacalcet (Sensipar -) 30 mg PO DAILY [facility] Last Admin: 12/06/18 10:00 Dose: 30 mg Gabapentin (Neurontin -) 300 mg PO DAILY [facility] Last Admin: 12/06/18 10:00 Dose: 300 mg Glipizide (Glucotrol -) 5 mg PO PC [facility] Last Admin: 12/06/18 13:16 Dose: 5 mg Hydralazine HCl (Apresoline -) 50 mg PO TID [facility] Last Admin: 12/06/18 13:16 Dose: 50 mg Ceftriaxone Sodium 1 gm/ (Dextrose) 50 mls @ 100 mls/hr IVPB DAILY [facility] Last Admin: 12/06/18 10:01 Dose: 100 mls/hr Insulin Aspart (Novolog Vial Sliding Scale -) 1 vial SQ [facility]; Protocol Last Admin: 12/06/18 12:16 Dose: Not Given Insulin Detemir (Levemir Vial) 22 units SQ [facility] Last Admin: 12/05/18 23:27 Dose: 22 units Isosorbide Mononitrate (Imdur -) 90 mg PO DAILY [facility] Last Admin: 12/06/18 10:00 Dose: 90 mg Latanoprost (Xalatan 0.005% Eye Drops -) 1 drop OU HS [facility] Last Admin: 12/05/18 23:22 Dose: 1 drop Levothyroxine Sodium (Synthroid -) 50 mcg PO AM [facility] Last Admin: 12/06/18 06:12 Dose: 50 mcg Polyethylene Glycol (Miralax (For Daily Use) -) 17 gm PO TID [facility] Last Admin: 12/06/18 13:17 Dose: Not Given Potassium Chloride (K-Dur -) 20 meq PO DAILY [facility] Last Admin: 12/06/18 10:00 Dose: 20 meq Ranitidine HCl (Zantac -) 150 mg PO BID [facility] Last Admin: 12/06/18 10:00 Dose: 150 mg Tamsulosin HCl (Flomax -) 0.4 mg PO DAILY@0830 [facility] Last Admin: 12/06/18 09:30 Dose: 0.4 mg Tramadol HCl (Ultram -) 50 mg PO Q8H PRN PRN Reason: PAIN LEVEL 6-10 Last Admin: 12/06/18 10:01 Dose: 50 mg - Objective Vital Signs: Vital Signs Temperature 97.5 F L 12/06/18 14:27 Pulse Rate 65 12/06/18 14:27 Respiratory Rate 18 12/06/18 14:27 Blood Pressure 133/76 12/06/18 14:27 O2 Sat by Pulse Oximetry (%) 99 12/06/18 09:00 Constitutional: Yes: Calm, Mild Distress Neck: Yes: Supple Cardiovascular: Yes: S1, S2 Respiratory: Yes: Regular, CTA Bilaterally Gastrointestinal: Yes: Normal Bowel Sounds, Soft Musculoskeletal: Yes: Back Pain Extremities: Yes: WNL Neurological: Yes: Alert, Oriented Psychiatric: Yes: Alert, Oriented Labs: CBC, BMP 12/06/18 06:10 12/06/18 06:10 INR, PTT INR 0.97 (0.83-1.09) 11/26/18 15:46 Assessment/Plan Problem List - Problems (1) Leukocytosis Code(s): D72.829 - ELEVATED WHITE BLOOD CELL COUNT, UNSPECIFIED (2) Cervical spondylosis with myelopathy and radiculopathy Code(s): M47.12 - OTHER SPONDYLOSIS WITH MYELOPATHY, CERVICAL REGION; M47.22 - OTHER SPONDYLOSIS WITH RADICULOPATHY, CERVICAL REGION (3) Impaired gait Code(s): R26.9 - UNSPECIFIED ABNORMALITIES OF GAIT AND MOBILITY (4) ANDRÉS (acute kidney injury) Code(s): N17.9 - ACUTE KIDNEY FAILURE, UNSPECIFIED (5) CAD (coronary artery disease) Code(s): I25.10 - ATHSCL HEART DISEASE OF [place] CORONARY ARTERY W/O ANG PCTRS Qualifiers: Coronary Disease-Associated Artery/Lesion type: [place] artery [place] vs. transplanted heart: [place] heart Associated angina: without angina Qualified Code(s): I25.10 - Atherosclerotic heart disease of [place] coronary artery without angina pectoris (6) Diabetes mellitus Code(s): E11.9 - TYPE 2 DIABETES MELLITUS WITHOUT COMPLICATIONS (7) Hyponatremia Code(s): E87.1 - HYPO-OSMOLALITY AND HYPONATREMIA (8) Acute renal failure Code(s): N17.9 - ACUTE KIDNEY FAILURE, UNSPECIFIED Qualifiers: Acute renal failure type: unspecified Qualified Code(s): N17.9 - Acute kidney failure, unspecified (9) Hypokalemia Code(s): E87.6 - HYPOKALEMIA 10 abd pain plan continue current mgmt will complete the course of abx close watch rest as per the team
--- NOTE | 2018-12-06 16:28 | PN ---
Progress Note, Physician History of Present Illness: AM events were noticed; pt with reproducible CP with palpation. Pt w/o fever, CP, palpitations, SOB, abd pain, back pain. - Current Medication List Current Medications: Active Medications Acetaminophen (Tylenol -) 500 mg PO Q6H PRN PRN Reason: PAIN Last Admin: 12/05/18 23:17 Dose: 500 mg Allopurinol (Zyloprim -) 100 mg PO DAILY [facility] Last Admin: 12/06/18 10:00 Dose: 100 mg Atorvastatin Calcium (Lipitor -) 20 mg PO HS [facility] Last Admin: 12/05/18 23:19 Dose: 20 mg Carvedilol (Coreg -) 12.5 mg PO BID [facility] Last Admin: 12/06/18 10:01 Dose: 12.5 mg Cinacalcet (Sensipar -) 30 mg PO DAILY [facility] Last Admin: 12/06/18 10:00 Dose: 30 mg Gabapentin (Neurontin -) 300 mg PO DAILY [facility] Last Admin: 12/06/18 10:00 Dose: 300 mg Glipizide (Glucotrol -) 5 mg PO PC [facility] Last Admin: 12/06/18 13:16 Dose: 5 mg Hydralazine HCl (Apresoline -) 50 mg PO TID [facility] Last Admin: 12/06/18 13:16 Dose: 50 mg Ceftriaxone Sodium 1 gm/ (Dextrose) 50 mls @ 100 mls/hr IVPB DAILY [facility] Last Admin: 12/06/18 10:01 Dose: 100 mls/hr Insulin Aspart (Novolog Vial Sliding Scale -) 1 vial SQ [facility]; Protocol Last Admin: 12/06/18 12:16 Dose: Not Given Insulin Detemir (Levemir Vial) 22 units SQ [facility] Last Admin: 12/05/18 23:27 Dose: 22 units Isosorbide Mononitrate (Imdur -) 90 mg PO DAILY [facility] Last Admin: 12/06/18 10:00 Dose: 90 mg Latanoprost (Xalatan 0.005% Eye Drops -) 1 drop OU [facility] Last Admin: 12/05/18 23:22 Dose: 1 drop Levothyroxine Sodium (Synthroid -) 50 mcg PO AM [facility] Last Admin: 12/06/18 06:12 Dose: 50 mcg Polyethylene Glycol (Miralax (For Daily Use) -) 17 gm PO TID [facility] Last Admin: 12/06/18 13:17 Dose: Not Given Potassium Chloride (K-Dur -) 20 meq PO DAILY [facility] Last Admin: 12/06/18 10:00 Dose: 20 meq Ranitidine HCl (Zantac -) 150 mg PO BID [facility] Last Admin: 12/06/18 10:00 Dose: 150 mg Tamsulosin HCl (Flomax -) 0.4 mg PO DAILY@0830 [facility] Last Admin: 12/06/18 09:30 Dose: 0.4 mg Tramadol HCl (Ultram -) 50 mg PO Q8H PRN PRN Reason: PAIN LEVEL 6-10 Last Admin: 12/06/18 10:01 Dose: 50 mg - Objective Vital Signs: Vital Signs Temperature 97.5 F L 12/06/18 14:27 Pulse Rate 65 12/06/18 14:27 Respiratory Rate 18 12/06/18 14:27 Blood Pressure 133/76 12/06/18 14:27 O2 Sat by Pulse Oximetry (%) 99 12/06/18 09:00 Constitutional: Yes: No Distress, Calm Cardiovascular: Yes: Regular Rate and Rhythm, S1, S2 Respiratory: Yes: Regular, CTA Bilaterally. No: Rales Gastrointestinal: Yes: Normal Bowel Sounds, Soft. No: Tenderness Edema: No Neurological: Yes: Alert, Oriented Labs: CBC, BMP 12/06/18 06:10 12/06/18 06:10 INR, PTT INR 0.97 (0.83-1.09) 11/26/18 15:46 Problem List - Problems (1) Cervical spondylosis with myelopathy and radiculopathy Code(s): M47.12 - OTHER SPONDYLOSIS WITH MYELOPATHY, CERVICAL REGION; M47.22 - OTHER SPONDYLOSIS WITH RADICULOPATHY, CERVICAL REGION (2) Impaired gait Code(s): R26.9 - UNSPECIFIED ABNORMALITIES OF GAIT AND MOBILITY (3) ANDRÉS (acute kidney injury) Code(s): N17.9 - ACUTE KIDNEY FAILURE, UNSPECIFIED (4) CAD (coronary artery disease) Code(s): I25.10 - ATHSCL HEART DISEASE OF [place] CORONARY ARTERY W/O ANG PCTRS Qualifiers: Coronary Disease-Associated Artery/Lesion type: [place] artery [place] vs. transplanted heart: [place] heart Associated angina: without angina Qualified Code(s): I25.10 - Atherosclerotic heart disease of [place] coronary artery without angina pectoris (5) Diabetes mellitus Code(s): E11.9 - TYPE 2 DIABETES MELLITUS WITHOUT COMPLICATIONS (6) Hyponatremia Code(s): E87.1 - HYPO-OSMOLALITY AND HYPONATREMIA (7) Acute renal failure Code(s): N17.9 - ACUTE KIDNEY FAILURE, UNSPECIFIED Qualifiers: Acute renal failure type: unspecified Qualified Code(s): N17.9 - Acute kidney failure, unspecified (8) Hypokalemia Code(s): E87.6 - HYPOKALEMIA (9) Blood clot in bladder Code(s): N32.89 - OTHER SPECIFIED DISORDERS OF [place] (10) UTI (urinary tract infection) Code(s): N39.0 - URINARY TRACT INFECTION, SITE NOT SPECIFIED Assessment/Plan Probable Bladder blood clot: repeat US in 1-2 weeks; f/u Renal, Cardio, NeuroSx, ID consults are appreciated Pt's case was d/w Dr. Lawrence, to cont IV abtx AM labs Pt is not cleared for surgery -pt's status to updated daily. Pt's codition was reviewed with pt's nurse and daughter.
--- NOTE | 2018-12-06 16:31 | EKG ---
Test Reason : Blood Pressure : / mmHG Vent. Rate : 056 BPM Atrial Rate : 056 BPM P-R Int : 118 ms QRS Dur : 080 ms QT Int : 436 ms P-R-T Axes : 019 064 089 degrees QTc Int : 420 ms SINUS BRADYCARDIA WITH SINUS ARRHYTHMIA OTHERWISE NORMAL ECG WHEN COMPARED WITH ECG OF 26-NOV-2018 17:21, PREMATURE ATRIAL COMPLEXES ARE NO LONGER PRESENT QRS DURATION HAS DECREASED NONSPECIFIC T WAVE ABNORMALITY NOW EVIDENT IN LATERAL LEADS QT HAS SHORTENED Confirmed by EVY QUIROGA MD ([id number]) on 12/06/2018 4:30:53 PM Referred By: Lilia WEI Confirmed By:EVY QUIROGA MD
[2018-12-06 18:16] VITALS: BMI 30.2
[2018-12-06] MEDS ORDERED: INSULIN (NOVOLOG) ASPART 100 UNITS/ML 10ML VIAL ONE (20:11)
[2018-12-06] MEDS: ATORVASTATIN CA 20 MG TABLET (FP) PO SCH (22:04)
[2018-12-06] MEDS: LATANOPROST 0.005% OPHTH SOLN 2.5ML BOTTLE OU SCH (22:04)
[2018-12-06] MEDS: INSULIN (LEVEMIR) 100 UNITS/ML UNITS SQ SCH (22:07)
[2018-12-07] MEDS: INSULIN SLIDING SCALE (NOVOLOG) 1 VIAL SQ SCH ×4 (06:02→21:03)
[2018-12-07] MEDS: LEVOTHYROXINE NA 50 MCG TABLET (FP) PO SCH (06:02)
[2018-12-07] MEDS: hydrALAZINE HCL 50 MG TABLET (FP) PO SCH ×3 (06:02→21:03)
[2018-12-07] MEDS: POLYETHYLENE GLYCOL 3350 119 GM BTL PO SCH ×3 (06:03→21:10)
[2018-12-07 07:48] LABS: BASO % 0.7 % (0-2.0); EOS % 9.9 % (0-4.5); HEMATOCRIT 32.2 % (32.4-45.2); HEMOGLOBIN 10.5 GM/dL (10.7-15.3); MCH 26.3 pg (25.7-33.7); MCHC 32.6 g/dl (32.0-36.0); MEAN CELL VOLUME 80.6 fl (80-96); MEAN PLT VOLUME 7.6 fl (7.5-11.1); MONO % 10.8 % (3.8-10.2); NEUT % 64.6 % (42.8-82.8); PLATELET COUNT 251 K/MM3 (134-434); RBC 3.99 M/mm3 (3.60-5.2); WHITE BLOOD COUNT 9.3 K/mm3 (4.0-10.0)
[2018-12-07 08:18] LABS: ANION GAP 8 MMOL/L (8-16); BLOOD UREA NITROGEN 33.9 mg/dL (7-18); CALCIUM 8.6 mg/dL (8.5-10.1); CHLORIDE 102 mmol/L (98-107); CO2 27 mmol/L (21-32); CREATININE 1.7 mg/dL (0.55-1.3); GLUCOSE,RANDOM 148 mg/dL (74-106); MAGNESIUM 2.4 mg/dL (1.8-2.4); PHOSPHOROUS 3.1 mg/dL (2.5-4.9); POTASSIUM 4.5 mmol/L (3.5-5.1); SODIUM 136 mmol/L (136-145)
[2018-12-07] MEDS ORDERED: DEXTROSE 5%-WATER - 50 ML IVPB ONE (09:26)
[2018-12-07] MEDS ORDERED: cefTRIAXone SODIUM 1 GM VIAL ONE (09:26)
[2018-12-07] MEDS: glipiZIDE 5 MG TABLET (FP) PO SCH ×3 (09:55→17:32)
[2018-12-07] MEDS: POTASSIUM CHLORIDE TABS 20 MEQ TABLET.ER (FP) PO SCH (09:56)
[2018-12-07] MEDS: ALLOPURINOL 100 MG TABLET (FP) PO SCH (09:56)
[2018-12-07] MEDS: TAMSULOSIN HCL 0.4 MG CAP PO SCH (09:58)
[2018-12-07] MEDS: GABAPENTIN 300 MG CAPSULE (FP) PO SCH (09:58)
[2018-12-07] MEDS: CARVEDILOL 12.5 MG TABLET (FP) PO SCH ×2 (09:58→21:03)
[2018-12-07] MEDS: RANITIDINE HCL 150 MG TABLET (FP) PO SCH ×2 (09:58→21:03)
[2018-12-07] MEDS: CEFTRIAXONE 1 GM in DEXTROSE 5%-WATER - 50 ML IVPB SCH (09:59)
--- NOTE | 2018-12-07 10:20 | PN ---
Progress Note, Physician History of Present Illness: Pt w/o fever, CP, palpitations, SOB, abd pain, dysuria. - Current Medication List Current Medications: Active Medications Acetaminophen (Tylenol -) 500 mg PO Q6H PRN PRN Reason: PAIN Last Admin: 12/05/18 23:17 Dose: 500 mg Allopurinol (Zyloprim -) 100 mg PO DAILY [facility] Last Admin: 12/07/18 09:56 Dose: 100 mg Atorvastatin Calcium (Lipitor -) 20 mg PO HS [facility] Last Admin: 12/06/18 22:04 Dose: 20 mg Carvedilol (Coreg -) 12.5 mg PO BID [facility] Last Admin: 12/07/18 09:58 Dose: 12.5 mg Cinacalcet (Sensipar -) 30 mg PO DAILY [facility] Last Admin: 12/06/18 10:00 Dose: 30 mg Gabapentin (Neurontin -) 300 mg PO DAILY [facility] Last Admin: 12/07/18 09:58 Dose: 300 mg Glipizide (Glucotrol -) 2.5 mg PO PC [facility] Last Admin: 12/07/18 09:55 Dose: 2.5 mg Hydralazine HCl (Apresoline -) 50 mg PO TID [facility] Last Admin: 12/07/18 06:02 Dose: 50 mg Ceftriaxone Sodium 1 gm/ (Dextrose) 50 mls @ 100 mls/hr IVPB DAILY [facility] Last Admin: 12/07/18 09:59 Dose: 100 mls/hr Insulin Aspart (Novolog Vial Sliding Scale -) 1 vial SQ [facility]; Protocol Last Admin: 12/07/18 06:02 Dose: Not Given Insulin Detemir (Levemir Vial) 22 units SQ [facility] Last Admin: 12/06/18 22:07 Dose: 22 units Isosorbide Mononitrate (Imdur -) 90 mg PO DAILY [facility] Last Admin: 12/06/18 10:35 Dose: Not Given Latanoprost (Xalatan 0.005% Eye Drops -) 1 drop OU [facility] Last Admin: 12/06/18 22:04 Dose: 1 drop Levothyroxine Sodium (Synthroid -) 50 mcg PO AM [facility] Last Admin: 12/07/18 06:02 Dose: 50 mcg Polyethylene Glycol (Miralax (For Daily Use) -) 17 gm PO TID [facility] Last Admin: 12/07/18 06:03 Dose: Not Given Potassium Chloride (K-Dur -) 20 meq PO DAILY [facility] Last Admin: 12/07/18 09:56 Dose: 20 meq Ranitidine HCl (Zantac -) 150 mg PO BID [facility] Last Admin: 12/07/18 09:58 Dose: 150 mg Tamsulosin HCl (Flomax -) 0.4 mg PO DAILY@0830 [facility] Last Admin: 12/07/18 09:58 Dose: 0.4 mg - Objective Vital Signs: Vital Signs Temperature 98.1 F 12/07/18 06:00 Pulse Rate 65 12/07/18 06:00 Respiratory Rate 20 12/07/18 06:00 Blood Pressure 135/66 12/07/18 06:00 O2 Sat by Pulse Oximetry (%) 99 12/06/18 21:00 Constitutional: Yes: No Distress, Calm Cardiovascular: Yes: Regular Rate and Rhythm, S1, S2 Respiratory: Yes: Regular, CTA Bilaterally. No: Rales Gastrointestinal: Yes: Normal Bowel Sounds, Soft. No: Tenderness Neurological: Yes: Alert, Oriented Labs: CBC, BMP 12/07/18 06:56 12/07/18 06:56 INR, PTT INR 0.97 (0.83-1.09) 11/26/18 15:46 Problem List - Problems (1) Cervical spondylosis with myelopathy and radiculopathy Code(s): M47.12 - OTHER SPONDYLOSIS WITH MYELOPATHY, CERVICAL REGION; M47.22 - OTHER SPONDYLOSIS WITH RADICULOPATHY, CERVICAL REGION (2) Impaired gait Code(s): R26.9 - UNSPECIFIED ABNORMALITIES OF GAIT AND MOBILITY (3) ANDRÉS (acute kidney injury) Code(s): N17.9 - ACUTE KIDNEY FAILURE, UNSPECIFIED (4) CAD (coronary artery disease) Code(s): I25.10 - ATHSCL HEART DISEASE OF [place] CORONARY ARTERY W/O ANG PCTRS Qualifiers: Coronary Disease-Associated Artery/Lesion type: [place] artery [place] vs. transplanted heart: [place] heart Associated angina: without angina Qualified Code(s): I25.10 - Atherosclerotic heart disease of [place] coronary artery without angina pectoris (5) Diabetes mellitus Code(s): E11.9 - TYPE 2 DIABETES MELLITUS WITHOUT COMPLICATIONS (6) Hyponatremia Code(s): E87.1 - HYPO-OSMOLALITY AND HYPONATREMIA (7) Acute renal failure Code(s): N17.9 - ACUTE KIDNEY FAILURE, UNSPECIFIED Qualifiers: Acute renal failure type: unspecified Qualified Code(s): N17.9 - Acute kidney failure, unspecified (8) Hypokalemia Code(s): E87.6 - HYPOKALEMIA (9) Blood clot in bladder Code(s): N32.89 - OTHER SPECIFIED DISORDERS OF [place] (10) UTI (urinary tract infection) Code(s): N39.0 - URINARY TRACT INFECTION, SITE NOT SPECIFIED Assessment/Plan Probable Bladder blood clot: repeat US in 1-2 weeks; f/u as outpatient Renal, Cardio, NeuroSx, ID consults are appreciated On IV abtx AM labs Pt is not cleared for surgery -pt's status to updated daily. Pt's condition was reviewed with pt's nurse.
[2018-12-07] MEDS: ACETAMINOPHEN 500 MG TABLET (FP) PO PRN ×2 (10:37→16:34)
[2018-12-07] MEDS: ISOSORBIDE MONONITRATE 30 MG TAB.SR.24H (FP) PO SCH (10:37)
--- NOTE | 2018-12-07 12:08 | PN ---
Progress Note, Physician History of Present Illness: Reports reproducible left-sided chest wall tenderness improved. C-spine surgery deferred pending correction of electrolyte abnormalities and renal dysfunction since improved. - Current Medication List Current Medications: Active Medications Acetaminophen (Tylenol -) 500 mg PO Q6H PRN PRN Reason: PAIN Last Admin: 12/07/18 10:37 Dose: 500 mg Allopurinol (Zyloprim -) 100 mg PO DAILY [facility] Last Admin: 12/07/18 09:56 Dose: 100 mg Atorvastatin Calcium (Lipitor -) 20 mg PO HS [facility] Last Admin: 12/06/18 22:04 Dose: 20 mg Carvedilol (Coreg -) 12.5 mg PO BID [facility] Last Admin: 12/07/18 09:58 Dose: 12.5 mg Cinacalcet (Sensipar -) 30 mg PO DAILY [facility] Last Admin: 12/06/18 10:00 Dose: 30 mg Gabapentin (Neurontin -) 300 mg PO DAILY [facility] Last Admin: 12/07/18 09:58 Dose: 300 mg Glipizide (Glucotrol -) 2.5 mg PO PC [facility] Last Admin: 12/07/18 09:55 Dose: 2.5 mg Hydralazine HCl (Apresoline -) 50 mg PO TID [facility] Last Admin: 12/07/18 06:02 Dose: 50 mg Ceftriaxone Sodium 1 gm/ (Dextrose) 50 mls @ 100 mls/hr IVPB DAILY [facility] Last Admin: 12/07/18 09:59 Dose: 100 mls/hr Insulin Aspart (Novolog Vial Sliding Scale -) 1 vial SQ [facility]; Protocol Last Admin: 12/07/18 06:02 Dose: Not Given Insulin Detemir (Levemir Vial) 22 units SQ [facility] Last Admin: 12/06/18 22:07 Dose: 22 units Isosorbide Mononitrate (Imdur -) 90 mg PO DAILY [facility] Last Admin: 12/07/18 10:37 Dose: 90 mg Latanoprost (Xalatan 0.005% Eye Drops -) 1 drop OU [facility] Last Admin: 12/06/18 22:04 Dose: 1 drop Levothyroxine Sodium (Synthroid -) 50 mcg PO AM [facility] Last Admin: 12/07/18 06:02 Dose: 50 mcg Polyethylene Glycol (Miralax (For Daily Use) -) 17 gm PO TID [facility] Last Admin: 12/07/18 06:03 Dose: Not Given Potassium Chloride (K-Dur -) 20 meq PO DAILY [facility] Last Admin: 12/07/18 09:56 Dose: 20 meq Ranitidine HCl (Zantac -) 150 mg PO BID [facility] Last Admin: 12/07/18 09:58 Dose: 150 mg Tamsulosin HCl (Flomax -) 0.4 mg PO DAILY@0830 [facility] Last Admin: 12/07/18 09:58 Dose: 0.4 mg - Objective Vital Signs: Vital Signs Temperature 98.1 F 12/07/18 06:00 Pulse Rate 65 12/07/18 06:00 Respiratory Rate 20 12/07/18 06:00 Blood Pressure 135/66 12/07/18 06:00 O2 Sat by Pulse Oximetry (%) 99 12/06/18 21:00 Constitutional: Yes: No Distress, Calm Neck: Yes: Supple Cardiovascular: Yes: Regular Rate and Rhythm Respiratory: Yes: Regular, Diminished, On Nasal O2 Gastrointestinal: Yes: Normal Bowel Sounds, Soft, Abdomen, Obese Edema: No Labs: CBC, BMP 12/07/18 06:56 12/07/18 06:56 INR, PTT INR 0.97 (0.83-1.09) 11/26/18 15:46 Problem List - Problems (1) Cervical spondylosis with myelopathy and radiculopathy Code(s): M47.12 - OTHER SPONDYLOSIS WITH MYELOPATHY, CERVICAL REGION; M47.22 - OTHER SPONDYLOSIS WITH RADICULOPATHY, CERVICAL REGION (2) Hypokalemia Code(s): E87.6 - HYPOKALEMIA (3) CAD (coronary artery disease) Code(s): I25.10 - ATHSCL HEART DISEASE OF [place] CORONARY ARTERY W/O ANG PCTRS Qualifiers: Coronary Disease-Associated Artery/Lesion type: [place] artery [place] vs. transplanted heart: [place] heart Associated angina: without angina Qualified Code(s): I25.10 - Atherosclerotic heart disease of [place] coronary artery without angina pectoris (4) Diabetes mellitus Code(s): E11.9 - TYPE 2 DIABETES MELLITUS WITHOUT COMPLICATIONS (5) Hyponatremia Code(s): E87.1 - HYPO-OSMOLALITY AND HYPONATREMIA (6) Non-occlusive coronary artery disease Code(s): I25.10 - ATHSCL HEART DISEASE OF [place] CORONARY ARTERY W/O ANG PCTRS (7) Diabetes mellitus with diabetic cardiomyopathy Code(s): E11.59 - TYPE 2 DIABETES MELLITUS WITH OTH CIRCULATORY COMPLICATIONS; I43 - CARDIOMYOPATHY IN DISEASES CLASSIFIED ELSEWHERE (8) Endothelial dysfunction of coronary artery Code(s): I99.8 - OTHER DISORDER OF CIRCULATORY SYSTEM (9) Hyperlipidemia Code(s): E78.5 - HYPERLIPIDEMIA, UNSPECIFIED Qualifiers: Hyperlipidemia type: pure hypercholesterolemia Qualified Code(s): E78.00 - Pure hypercholesterolemia, unspecified; E78.0 - Pure hypercholesterolemia (10) Hypertension Code(s): I10 - ESSENTIAL (PRIMARY) HYPERTENSION Qualifiers: Hypertension type: essential hypertension Qualified Code(s): I10 - Essential (primary) hypertension (11) Hypothyroidism Code(s): E03.9 - HYPOTHYROIDISM, UNSPECIFIED Qualifiers: Hypothyroidism type: unspecified Qualified Code(s): E03.9 - Hypothyroidism , unspecified (12) [id number] kidney injury Code(s): N17.9 - ACUTE KIDNEY FAILURE, UNSPECIFIED; N18.9 - CHRONIC KIDNEY DISEASE, UNSPECIFIED Assessment/Plan 1. Spinal stenosis, cervical radiculopathy 2. Atypical chest wall pain (reproducible) 3. CAD - non-obstructive, angina pectoris 4. HTN 5. Hypercholesterolemia 6. Type 2 DM 7. Hypothyroidism 8. CKD 9. LV diastolic dysfunction without evidence of failure 10. Hypovolemic hyponatremia and hypokalemia from diuretics and poor oral intake resolved 11. UTI 12. Metabolic alkalosis (contraction alkalosis) 13. Posterior bladder clot from [place] trauma 14. Anemia PLAN: 1. Na and renal function improved 2. Tentative neurosurgery when cleared 3. Continue Carvedilol 12.5 bid as tolerated 4. Imdur 90 qd and Hydralazine 50 tid as tolerated 5. Lipitor 20 qhs 6. Ecotrin has been held 7. There is no absolute contraindication for surgery in view of absence of ischemic symptoms, decompensated congestive heart failure and absence of malignant arrhythmias. 8. ID input noted, course of Rocephin, repeat bladder scan 9. Analgesia as needed
--- NOTE | 2018-12-07 13:31 | PN ---
Progress Note, Physician History of Present Illness: Reports reproducible left-sided chest wall tenderness. C-spine surgery deferred pending correction of electrolyte abnormalities and renal dysfunction and uti - Current Medication List Current Medications: Active Medications Acetaminophen (Tylenol -) 500 mg PO Q6H PRN PRN Reason: PAIN Last Admin: 12/07/18 10:37 Dose: 500 mg Allopurinol (Zyloprim -) 100 mg PO DAILY [facility] Last Admin: 12/07/18 09:56 Dose: 100 mg Atorvastatin Calcium (Lipitor -) 20 mg PO HS [facility] Last Admin: 12/06/18 22:04 Dose: 20 mg Carvedilol (Coreg -) 12.5 mg PO BID [facility] Last Admin: 12/07/18 09:58 Dose: 12.5 mg Cinacalcet (Sensipar -) 30 mg PO DAILY [facility] Last Admin: 12/06/18 10:00 Dose: 30 mg Gabapentin (Neurontin -) 300 mg PO DAILY [facility] Last Admin: 12/07/18 09:58 Dose: 300 mg Glipizide (Glucotrol -) 2.5 mg PO PC [facility] Last Admin: 12/07/18 13:00 Dose: Not Given Hydralazine HCl (Apresoline -) 50 mg PO TID [facility] Last Admin: 12/07/18 06:02 Dose: 50 mg Ceftriaxone Sodium 1 gm/ (Dextrose) 50 mls @ 100 mls/hr IVPB DAILY [facility] Last Admin: 12/07/18 09:59 Dose: 100 mls/hr Insulin Aspart (Novolog Vial Sliding Scale -) 1 vial SQ [facility]; Protocol Last Admin: 12/07/18 06:02 Dose: Not Given Insulin Detemir (Levemir Vial) 22 units SQ [facility] Last Admin: 12/06/18 22:07 Dose: 22 units Isosorbide Mononitrate (Imdur -) 90 mg PO DAILY [facility] Last Admin: 12/07/18 10:37 Dose: 90 mg Latanoprost (Xalatan 0.005% Eye Drops -) 1 drop OU [facility] Last Admin: 12/06/18 22:04 Dose: 1 drop Levothyroxine Sodium (Synthroid -) 50 mcg PO AM [facility] Last Admin: 12/07/18 06:02 Dose: 50 mcg Polyethylene Glycol (Miralax (For Daily Use) -) 17 gm PO TID [facility] Last Admin: 12/07/18 06:03 Dose: Not Given Potassium Chloride (K-Dur -) 20 meq PO DAILY [facility] Last Admin: 12/07/18 09:56 Dose: 20 meq Ranitidine HCl (Zantac -) 150 mg PO BID [facility] Last Admin: 12/07/18 09:58 Dose: 150 mg Tamsulosin HCl (Flomax -) 0.4 mg PO DAILY@0830 [facility] Last Admin: 12/07/18 09:58 Dose: 0.4 mg - Objective Vital Signs: Vital Signs Temperature 97.7 F 12/07/18 10:00 Pulse Rate 85 12/07/18 10:00 Respiratory Rate 20 12/07/18 10:00 Blood Pressure 156/75 12/07/18 10:00 O2 Sat by Pulse Oximetry (%) 97 12/07/18 09:00 Constitutional: Yes: Calm, Mild Distress Cardiovascular: Yes: S1, S2 Respiratory: Yes: Regular, CTA Bilaterally Gastrointestinal: Yes: Normal Bowel Sounds, Soft Musculoskeletal: Yes: WNL Extremities: Yes: Other Neurological: Yes: Alert, Oriented Psychiatric: Yes: Alert, Oriented Labs: CBC, BMP 12/07/18 06:56 12/07/18 06:56 INR, PTT INR 0.97 (0.83-1.09) 11/26/18 15:46 Assessment/Plan Problem List - Problems (1) Leukocytosis Code(s): D72.829 - ELEVATED WHITE BLOOD CELL COUNT, UNSPECIFIED (2) Cervical spondylosis with myelopathy and radiculopathy Code(s): M47.12 - OTHER SPONDYLOSIS WITH MYELOPATHY, CERVICAL REGION; M47.22 - OTHER SPONDYLOSIS WITH RADICULOPATHY, CERVICAL REGION (3) Impaired gait Code(s): R26.9 - UNSPECIFIED ABNORMALITIES OF GAIT AND MOBILITY (4) ANDRÉS (acute kidney injury) Code(s): N17.9 - ACUTE KIDNEY FAILURE, UNSPECIFIED (5) CAD (coronary artery disease) Code(s): I25.10 - ATHSCL HEART DISEASE OF [place] CORONARY ARTERY W/O ANG PCTRS Qualifiers: Coronary Disease-Associated Artery/Lesion type: [place] artery [place] vs. transplanted heart: [place] heart Associated angina: without angina Qualified Code(s): I25.10 - Atherosclerotic heart disease of [place] coronary artery without angina pectoris (6) Diabetes mellitus Code(s): E11.9 - TYPE 2 DIABETES MELLITUS WITHOUT COMPLICATIONS (7) Hyponatremia Code(s): E87.1 - HYPO-OSMOLALITY AND HYPONATREMIA (8) Acute renal failure Code(s): N17.9 - ACUTE KIDNEY FAILURE, UNSPECIFIED Qualifiers: Acute renal failure type: unspecified Qualified Code(s): N17.9 - Acute kidney failure, unspecified (9) Hypokalemia Code(s): E87.6 - HYPOKALEMIA 10 abd pain plan continue current mgmt will complete the course of abx close watch rest as per the team
--- NOTE | 2018-12-07 14:05 | PN ---
Progress Note (short form) - Note Progress Note: Renal follow up for ANDRÉS and hyponatremia Pt seen and examined at the bedside continues to have shoulder pain no chest pain, sob, abd pain appetite is down no fever or chills Vital Signs Temperature 97.7 F 12/07/18 10:00 Pulse Rate 85 12/07/18 10:00 Respiratory Rate 20 12/07/18 10:00 Blood Pressure 156/75 12/07/18 10:00 O2 Sat by Pulse Oximetry (%) 97 12/07/18 09:00 Intake & Output 12/04/18 12/05/18 12/06/18 12/07/18 23:59 23:59 23:59 23:59 Intake Total 250 100 480 320 Output Total 200 Balance 250 100 280 320 NAD RRR, no M/R CTA, no rales or wheeze soft, mild distension, no tenderness No LE edema, clubbing or cyanosis CBC, BMP 12/07/18 06:56 12/07/18 06:56 Current Medications Acetaminophen (Tylenol -) 500 mg PO Q6H PRN PRN Reason: PAIN Last Admin: 12/07/18 10:37 Dose: 500 mg Allopurinol (Zyloprim -) 100 mg PO DAILY [facility] Last Admin: 12/07/18 09:56 Dose: 100 mg Atorvastatin Calcium (Lipitor -) 20 mg PO HS [facility] Last Admin: 12/06/18 22:04 Dose: 20 mg Carvedilol (Coreg -) 12.5 mg PO BID [facility] Last Admin: 12/07/18 09:58 Dose: 12.5 mg Cinacalcet (Sensipar -) 30 mg PO DAILY [facility] Last Admin: 12/06/18 10:00 Dose: 30 mg Gabapentin (Neurontin -) 300 mg PO DAILY [facility] Last Admin: 12/07/18 09:58 Dose: 300 mg Glipizide (Glucotrol -) 2.5 mg PO PC [facility] Last Admin: 12/07/18 13:00 Dose: Not Given Hydralazine HCl (Apresoline -) 50 mg PO TID [facility] Last Admin: 12/07/18 06:02 Dose: 50 mg Ceftriaxone Sodium 1 gm/ (Dextrose) 50 mls @ 100 mls/hr IVPB DAILY [facility] Last Admin: 12/07/18 09:59 Dose: 100 mls/hr Insulin Aspart (Novolog Vial Sliding Scale -) 1 vial SQ [facility]S [facility]; Protocol Last Admin: 12/07/18 13:43 Dose: 6 units Insulin Detemir (Levemir Vial) 22 units SQ HS [facility] Last Admin: 12/06/18 22:07 Dose: 22 units Isosorbide Mononitrate (Imdur -) 90 mg PO DAILY [facility] Last Admin: 12/07/18 10:37 Dose: 90 mg Latanoprost (Xalatan 0.005% Eye Drops -) 1 drop OU HS [facility] Last Admin: 12/06/18 22:04 Dose: 1 drop Levothyroxine Sodium (Synthroid -) 50 mcg PO AM [facility] Last Admin: 12/07/18 06:02 Dose: 50 mcg Polyethylene Glycol (Miralax (For Daily Use) -) 17 gm PO TID [facility] Last Admin: 12/07/18 06:03 Dose: Not Given Potassium Chloride (K-Dur -) 20 meq PO DAILY [facility] Last Admin: 12/07/18 09:56 Dose: 20 meq Ranitidine HCl (Zantac -) 150 mg PO BID [facility] Last Admin: 12/07/18 09:58 Dose: 150 mg Tamsulosin HCl (Flomax -) 0.4 mg PO DAILY@0830 [facility] Last Admin: 12/07/18 09:58 Dose: 0.4 mg 83 year old [place] woman with history of CKD stage 4 (baseline Cr ~2, eGFR 25-30). CHF (diastolic dysfunction), DM type 2, anemia, hyperlipidemia who presented with generalized weakness and found to have hyponatremia, hypokalemia and ANDRÉS. #ANDRÉS likely due to hypovolemia in setting of diuretic use and poor solute intake #Hypovolemic hyponatremia (resolved) #Metabolic alkalosis (contraction alkalosis) #Diastolic HF w/o evidence of CHF exacerbation #Hx of Anemia #Cervical radiculopathy #Peripheral eosinophilia #Chest pain Renal function and electrolytes improved and stable US of bladder noted, shows mass like density in posterior bladder likely representing a blood clot (likely related to bladder catheter insertion).Plan to have repeat US in 5-7 days eosinophlia improving check X-ray of shoulder to r/o structural cause of shoulder pain Ca and Phos WNL continue senspiar Thank you Wm Tian DO
[2018-12-07] MEDS ORDERED: PT OWN MED DRAWER 7, Y5N ONE (14:55)
[2018-12-07] MEDS: CINACALCET HCL 30 MG TAB (FP) PO SCH (16:15)
[2018-12-07] MEDS ORDERED: traMADol HCL 50 MG TABLET PO PRN (18:55)
[2018-12-07] MEDS: ATORVASTATIN CA 20 MG TABLET (FP) PO SCH (21:03)
[2018-12-07] MEDS: LATANOPROST 0.005% OPHTH SOLN 2.5ML BOTTLE OU SCH (21:04)
[2018-12-07] MEDS ORDERED: INSULIN (LEVEMIR) 100 UNITS/ML UNITS SQ SCH (22:00)
[2018-12-08] MEDS: POLYETHYLENE GLYCOL 3350 119 GM BTL PO SCH ×2 (05:51→13:28)
[2018-12-08] MEDS: hydrALAZINE HCL 50 MG TABLET (FP) PO SCH ×2 (05:51→13:28)
[2018-12-08] MEDS: INSULIN SLIDING SCALE (NOVOLOG) 1 VIAL SQ SCH ×3 (06:02→16:32)
[2018-12-08] MEDS: LEVOTHYROXINE NA 50 MCG TABLET (FP) PO SCH (06:03)
[2018-12-08 07:57] LABS: EOS % 10.9 % (0-4.5); HEMOGLOBIN 9.6 GM/dL (10.7-15.3); LYMPH % 19.4 % (8-40); MCH 26.7 pg (25.7-33.7); MCHC 33.1 g/dl (32.0-36.0); MEAN CELL VOLUME 80.8 fl (80-96); MEAN PLT VOLUME 7.7 fl (7.5-11.1); MONO % 9.9 % (3.8-10.2); NEUT % 58.8 % (42.8-82.8); PLATELET COUNT 247 K/MM3 (134-434); RBC 3.59 M/mm3 (3.60-5.2); RDW 18.7 % (11.6-15.6); WHITE BLOOD COUNT 8.1 K/mm3 (4.0-10.0)
[2018-12-08 08:15] LABS: CALCIUM 8.4 mg/dL (8.5-10.1); CREATININE 1.7 mg/dL (0.55-1.3); MAGNESIUM 2.2 mg/dL (1.8-2.4); PHOSPHOROUS 3.1 mg/dL (2.5-4.9); POTASSIUM 5.1 mmol/L (3.5-5.1)
[2018-12-08] MEDS ORDERED: DEXTROSE 5%-WATER - 50 ML IVPB ONE (09:17)
[2018-12-08] MEDS ORDERED: cefTRIAXone SODIUM 1 GM VIAL ONE (09:17)
[2018-12-08] MEDS: RANITIDINE HCL 150 MG TABLET (FP) PO SCH (09:51)
[2018-12-08] MEDS: POTASSIUM CHLORIDE TABS 20 MEQ TABLET.ER (FP) PO SCH (09:51)
[2018-12-08] MEDS: GABAPENTIN 300 MG CAPSULE (FP) PO SCH (09:51)
[2018-12-08] MEDS: CEFTRIAXONE 1 GM in DEXTROSE 5%-WATER - 50 ML IVPB SCH (09:51)
[2018-12-08] MEDS: ALLOPURINOL 100 MG TABLET (FP) PO SCH (09:51)
[2018-12-08] MEDS: glipiZIDE 5 MG TABLET (FP) PO SCH ×3 (09:52→19:02)
[2018-12-08] MEDS: TAMSULOSIN HCL 0.4 MG CAP PO SCH (09:55)
[2018-12-08] MEDS: CARVEDILOL 12.5 MG TABLET (FP) PO SCH (09:55)
[2018-12-08] MEDS: ISOSORBIDE MONONITRATE 30 MG TAB.SR.24H (FP) PO SCH (09:55)
[2018-12-08] MEDS: CINACALCET HCL 30 MG TAB (FP) PO SCH (09:56)
--- NOTE | 2018-12-08 10:57 | PN ---
Progress Note (short form) - Note Progress Note: Renal follow up for ANDRÉS and hyponatremia Pt seen and examined at the bedside awake and alert left shoulder pain is improved no sob, but some [place] no leg swelling making urine ate better this am Vital Signs Temperature 97.5 F L 12/08/18 05:34 Pulse Rate 73 12/08/18 05:34 Respiratory Rate 20 12/08/18 05:34 Blood Pressure 127/65 12/08/18 05:34 O2 Sat by Pulse Oximetry (%) 97 12/07/18 21:00 Intake & Output 12/05/18 12/06/18 12/07/18 12/08/18 23:59 23:59 23:59 23:59 Intake Total 100 480 720 260 Output Total 200 Balance 100 280 720 260 NAD RRR, no M/R CTA, no rales or wheeze soft, mild distension, no tenderness No LE edema, clubbing or cyanosis CBC, BMP 12/08/18 06:30 12/08/18 06:30 Current Medications Acetaminophen (Tylenol -) 500 mg PO Q6H PRN PRN Reason: PAIN Last Admin: 12/07/18 16:34 Dose: 500 mg Allopurinol (Zyloprim -) 100 mg PO DAILY [facility] Last Admin: 12/08/18 09:51 Dose: 100 mg Atorvastatin Calcium (Lipitor -) 20 mg PO HS [facility] Last Admin: 12/07/18 21:03 Dose: 20 mg Carvedilol (Coreg -) 12.5 mg PO BID [facility] Last Admin: 12/08/18 09:55 Dose: 12.5 mg Cinacalcet (Sensipar -) 30 mg PO DAILY [facility] Last Admin: 12/08/18 09:56 Dose: 30 mg Gabapentin (Neurontin -) 300 mg PO DAILY [facility] Last Admin: 12/08/18 09:51 Dose: 300 mg Glipizide (Glucotrol -) 2.5 mg PO PC [facility] Last Admin: 12/08/18 09:52 Dose: 2.5 mg Hydralazine HCl (Apresoline -) 50 mg PO TID [facility] Last Admin: 12/08/18 05:51 Dose: 50 mg Ceftriaxone Sodium 1 gm/ (Dextrose) 50 mls @ 100 mls/hr IVPB DAILY [facility] Last Admin: 12/08/18 09:51 Dose: 100 mls/hr Insulin Aspart (Novolog Vial Sliding Scale -) 1 vial SQ ACHS [facility]; Protocol Last Admin: 12/08/18 06:02 Dose: Not Given Insulin Detemir (Levemir Vial) 18 units SQ HS [facility] Last Admin: 12/07/18 21:03 Dose: 18 units Isosorbide Mononitrate (Imdur -) 90 mg PO DAILY [facility] Last Admin: 12/08/18 09:55 Dose: 90 mg Latanoprost (Xalatan 0.005% Eye Drops -) 1 drop OU HS [facility] Last Admin: 12/07/18 21:04 Dose: 1 drop Levothyroxine Sodium (Synthroid -) 50 mcg PO AM [facility] Last Admin: 12/08/18 06:03 Dose: 50 mcg Polyethylene Glycol (Miralax (For Daily Use) -) 17 gm PO TID [facility] Last Admin: 12/08/18 05:51 Dose: Not Given Potassium Chloride (K-Dur -) 20 meq PO DAILY [facility] Last Admin: 12/08/18 09:51 Dose: 20 meq Ranitidine HCl (Zantac -) 150 mg PO BID [facility] Last Admin: 12/08/18 09:51 Dose: 150 mg Tamsulosin HCl (Flomax -) 0.4 mg PO DAILY@0830 [facility] Last Admin: 12/08/18 09:55 Dose: 0.4 mg Tramadol HCl (Ultram -) 50 mg PO Q8H PRN PRN Reason: PAIN LEVEL 6-10 Last Admin: 12/08/18 09:53 Dose: 50 mg 83 year old [place] woman with history of CKD stage 4 (baseline Cr ~2, eGFR 25-30). CHF (diastolic dysfunction), DM type 2, anemia, hyperlipidemia who presented with generalized weakness and found to have hyponatremia, hypokalemia and ANDRÉS. #ANDRÉS likely due to hypovolemia in setting of diuretic use and poor solute intake #Hypovolemic hyponatremia (resolved) #Metabolic alkalosis (contraction alkalosis) #Diastolic HF w/o evidence of CHF exacerbation #Hx of Anemia #Cervical radiculopathy #Peripheral eosinophilia #Chest pain Renal function and electrolytes improved and stable no acute need for diuretics but if discharged can start torsemide 20mg daily US of bladder noted, shows mass like density in posterior bladder likely representing a blood clot (likely related to bladder catheter insertion).Plan to have repeat US in 5-7 days, can be done as outpatient eosinophlia improving should X-ray negative for fractures Ca and Phos WNL continue senspiar continue Abx as per ID Surgery deferred due to renal dysfunction and electrolyte imbalance. Thank you Wm Tian DO
--- NOTE | 2018-12-08 11:56 | PN ---
Progress Note, Physician Chief Complaint: Events noted Cervical neck discomfort intermittently History of Present Illness: Patient was seen and examined. Awake and alert. Chart was reviewed Denies chest pain, SOB or palpitations - Current Medication List Current Medications: Active Medications Acetaminophen (Tylenol -) 500 mg PO Q6H PRN PRN Reason: PAIN Last Admin: 12/07/18 16:34 Dose: 500 mg Allopurinol (Zyloprim -) 100 mg PO DAILY [facility] Last Admin: 12/08/18 09:51 Dose: 100 mg Atorvastatin Calcium (Lipitor -) 20 mg PO HS [facility] Last Admin: 12/07/18 21:03 Dose: 20 mg Carvedilol (Coreg -) 12.5 mg PO BID [facility] Last Admin: 12/08/18 09:55 Dose: 12.5 mg Cinacalcet (Sensipar -) 30 mg PO DAILY [facility] Last Admin: 12/08/18 09:56 Dose: 30 mg Gabapentin (Neurontin -) 300 mg PO DAILY [facility] Last Admin: 12/08/18 09:51 Dose: 300 mg Glipizide (Glucotrol -) 2.5 mg PO PC [facility] Last Admin: 12/08/18 09:52 Dose: 2.5 mg Hydralazine HCl (Apresoline -) 50 mg PO TID [facility] Last Admin: 12/08/18 05:51 Dose: 50 mg Ceftriaxone Sodium 1 gm/ (Dextrose) 50 mls @ 100 mls/hr IVPB DAILY [facility] Last Admin: 12/08/18 09:51 Dose: 100 mls/hr Insulin Aspart (Novolog Vial Sliding Scale -) 1 vial SQ [facility]; Protocol Last Admin: 12/08/18 11:17 Dose: Not Given Insulin Detemir (Levemir Vial) 18 units SQ [facility] Last Admin: 12/07/18 21:03 Dose: 18 units Isosorbide Mononitrate (Imdur -) 90 mg PO DAILY [facility] Last Admin: 12/08/18 09:55 Dose: 90 mg Latanoprost (Xalatan 0.005% Eye Drops -) 1 drop OU [facility] Last Admin: 12/07/18 21:04 Dose: 1 drop Levothyroxine Sodium (Synthroid -) 50 mcg PO AM [facility] Last Admin: 12/08/18 06:03 Dose: 50 mcg Polyethylene Glycol (Miralax (For Daily Use) -) 17 gm PO TID [facility] Last Admin: 12/08/18 05:51 Dose: Not Given Potassium Chloride (K-Dur -) 20 meq PO DAILY [facility] Last Admin: 12/08/18 09:51 Dose: 20 meq Ranitidine HCl (Zantac -) 150 mg PO BID [facility] Last Admin: 12/08/18 09:51 Dose: 150 mg Tamsulosin HCl (Flomax -) 0.4 mg PO DAILY@0830 [facility] Last Admin: 12/08/18 09:55 Dose: 0.4 mg Tramadol HCl (Ultram -) 50 mg PO Q8H PRN PRN Reason: PAIN LEVEL 6-10 Last Admin: 12/08/18 09:53 Dose: 50 mg - Objective Vital Signs: Vital Signs Temperature 97.5 F L 12/08/18 05:34 Pulse Rate 73 12/08/18 05:34 Respiratory Rate 20 12/08/18 05:34 Blood Pressure 127/65 12/08/18 05:34 O2 Sat by Pulse Oximetry (%) 97 12/07/18 21:00 Eyes: Yes: PERRL HENT: Yes: Atraumatic Neck: Yes: Supple Cardiovascular: Yes: Regular Rate and Rhythm, S1, S2 Respiratory: Yes: CTA Bilaterally Gastrointestinal: Yes: Normal Bowel Sounds, Soft. No: Tenderness Edema: No Labs: CBC, BMP 12/08/18 06:30 12/08/18 06:30 Problem List - Problems (1) Cervical spondylosis with myelopathy and radiculopathy Code(s): M47.12 - OTHER SPONDYLOSIS WITH MYELOPATHY, CERVICAL REGION; M47.22 - OTHER SPONDYLOSIS WITH RADICULOPATHY, CERVICAL REGION (2) Hypokalemia Code(s): E87.6 - HYPOKALEMIA (3) Impaired gait Code(s): R26.9 - UNSPECIFIED ABNORMALITIES OF GAIT AND MOBILITY (4) ANDRÉS (acute kidney injury) Code(s): N17.9 - ACUTE KIDNEY FAILURE, UNSPECIFIED (5) Anemia Code(s): D64.9 - ANEMIA, UNSPECIFIED (6) CAD (coronary artery disease) Code(s): I25.10 - ATHSCL HEART DISEASE OF [place] CORONARY ARTERY W/O ANG PCTRS Qualifiers: Coronary Disease-Associated Artery/Lesion type: [place] artery [place] vs. transplanted heart: [place] heart Associated angina: without angina Qualified Code(s): I25.10 - Atherosclerotic heart disease of [place] coronary artery without angina pectoris (7) CRF (chronic renal failure) Code(s): N18.9 - CHRONIC KIDNEY DISEASE, UNSPECIFIED (8) Diabetes mellitus Code(s): E11.9 - TYPE 2 DIABETES MELLITUS WITHOUT COMPLICATIONS (9) Hyponatremia Code(s): E87.1 - HYPO-OSMOLALITY AND HYPONATREMIA (10) Diverticulosis Code(s): K57.90 - DVRTCLOS OF INTEST, PART UNSP, W/O PERF OR ABSCESS W/O BLEED (11) Endothelial dysfunction of coronary artery Code(s): I99.8 - OTHER DISORDER OF CIRCULATORY SYSTEM (12) Hyperlipidemia Code(s): E78.5 - HYPERLIPIDEMIA, UNSPECIFIED Qualifiers: Hyperlipidemia type: pure hypercholesterolemia Qualified Code(s): E78.00 - Pure hypercholesterolemia, unspecified; E78.0 - Pure hypercholesterolemia (13) Hypertension Code(s): I10 - ESSENTIAL (PRIMARY) HYPERTENSION Qualifiers: Hypertension type: essential hypertension Qualified Code(s): I10 - Essential (primary) hypertension (14) Hypothyroidism Code(s): E03.9 - HYPOTHYROIDISM, UNSPECIFIED Qualifiers: Hypothyroidism type: unspecified Qualified Code(s): E03.9 - Hypothyroidism , unspecified (15) [id number]-kr-[id number] kidney injury Code(s): N17.9 - ACUTE KIDNEY FAILURE, UNSPECIFIED; N18.9 - CHRONIC KIDNEY DISEASE, UNSPECIFIED Assessment/Plan 1. Spinal stenosis, cervical radiculopathy 2. Atypical chest wall pain (reproducible) 3. CAD - non-obstructive, angina pectoris 4. HTN 5. Hypercholesterolemia 6. Type 2 DM 7. Hypothyroidism 8. CKD 9. LV diastolic dysfunction without evidence of failure 10. Hypovolemic hyponatremia and hypokalemia from diuretics and poor oral intake resolved 11. UTI 12. Metabolic alkalosis 13. Anemia PLAN: 1. NA and renal function improved - continue to monitor 2. Tentative neurosurgery time to be decided 3. Continue Carvedilol 12.5 mg BID as tolerated 4. Imdur 90 mg QD and Hydralazine 50 mg TID as tolerated 5. Lipitor 20 mg QHS 6. Ecotrin has been held 7. There is no absolute contraindication for surgery in view of absence of ischemic symptoms, decompensated congestive heart failure and absence of malignant arrhythmias. 8. Antibiotic coverage 9. Analgesia as needed Apollo Kiser MD
--- NOTE | 2018-12-08 12:37 | PN ---
Progress Note, Physician History of Present Illness: Pt w/o fever, CP, palpitations, SOB, abd pain, dysuria. - Current Medication List Current Medications: Active Medications Acetaminophen (Tylenol -) 500 mg PO Q6H PRN PRN Reason: PAIN Last Admin: 12/07/18 16:34 Dose: 500 mg Allopurinol (Zyloprim -) 100 mg PO DAILY [facility] Last Admin: 12/08/18 09:51 Dose: 100 mg Atorvastatin Calcium (Lipitor -) 20 mg PO [facility] Last Admin: 12/07/18 21:03 Dose: 20 mg Carvedilol (Coreg -) 12.5 mg PO BID [facility] Last Admin: 12/08/18 09:55 Dose: 12.5 mg Cinacalcet (Sensipar -) 30 mg PO DAILY [facility] Last Admin: 12/08/18 09:56 Dose: 30 mg Gabapentin (Neurontin -) 300 mg PO DAILY [facility] Last Admin: 12/08/18 09:51 Dose: 300 mg Glipizide (Glucotrol -) 2.5 mg PO PC [facility] Last Admin: 12/08/18 09:52 Dose: 2.5 mg Hydralazine HCl (Apresoline -) 50 mg PO TID [facility] Last Admin: 12/08/18 05:51 Dose: 50 mg Ceftriaxone Sodium 1 gm/ (Dextrose) 50 mls @ 100 mls/hr IVPB DAILY [facility] Last Admin: 12/08/18 09:51 Dose: 100 mls/hr Insulin Aspart (Novolog Vial Sliding Scale -) 1 vial SQ [facility]; Protocol Last Admin: 12/08/18 11:17 Dose: Not Given Insulin Detemir (Levemir Vial) 18 units SQ [facility] Last Admin: 12/07/18 21:03 Dose: 18 units Isosorbide Mononitrate (Imdur -) 90 mg PO DAILY [facility] Last Admin: 12/08/18 09:55 Dose: 90 mg Latanoprost (Xalatan 0.005% Eye Drops -) 1 drop OU [facility] Last Admin: 12/07/18 21:04 Dose: 1 drop Levothyroxine Sodium (Synthroid -) 50 mcg PO AM [facility] Last Admin: 12/08/18 06:03 Dose: 50 mcg Polyethylene Glycol (Miralax (For Daily Use) -) 17 gm PO TID [facility] Last Admin: 12/08/18 05:51 Dose: Not Given Potassium Chloride (K-Dur -) 20 meq PO DAILY [facility] Last Admin: 12/08/18 09:51 Dose: 20 meq Ranitidine HCl (Zantac -) 150 mg PO BID [facility] Last Admin: 12/08/18 09:51 Dose: 150 mg Tamsulosin HCl (Flomax -) 0.4 mg PO DAILY@0830 [facility] Last Admin: 12/08/18 09:55 Dose: 0.4 mg Tramadol HCl (Ultram -) 50 mg PO Q8H PRN PRN Reason: PAIN LEVEL 6-10 Last Admin: 12/08/18 09:53 Dose: 50 mg - Objective Vital Signs: Vital Signs Temperature 97.5 F L 12/08/18 05:34 Pulse Rate 73 12/08/18 05:34 Respiratory Rate 20 12/08/18 05:34 Blood Pressure 127/65 12/08/18 05:34 O2 Sat by Pulse Oximetry (%) 97 12/07/18 21:00 Constitutional: Yes: No Distress, Calm Cardiovascular: Yes: Regular Rate and Rhythm, S1, S2 Respiratory: Yes: Regular, CTA Bilaterally. No: Rales Gastrointestinal: Yes: Normal Bowel Sounds, Soft. No: Tenderness Neurological: Yes: Alert, Oriented Labs: CBC, BMP 12/08/18 06:30 12/08/18 06:30 INR, PTT INR 0.97 (0.83-1.09) 11/26/18 15:46 Problem List - Problems (1) Cervical spondylosis with myelopathy and radiculopathy Code(s): M47.12 - OTHER SPONDYLOSIS WITH MYELOPATHY, CERVICAL REGION; M47.22 - OTHER SPONDYLOSIS WITH RADICULOPATHY, CERVICAL REGION (2) Impaired gait Code(s): R26.9 - UNSPECIFIED ABNORMALITIES OF GAIT AND MOBILITY (3) ANDRÉS (acute kidney injury) Code(s): N17.9 - ACUTE KIDNEY FAILURE, UNSPECIFIED (4) CAD (coronary artery disease) Code(s): I25.10 - ATHSCL HEART DISEASE OF [place] CORONARY ARTERY W/O ANG PCTRS Qualifiers: Coronary Disease-Associated Artery/Lesion type: [place] artery [place] vs. transplanted heart: [place] heart Associated angina: without angina Qualified Code(s): I25.10 - Atherosclerotic heart disease of [place] coronary artery without angina pectoris (5) Diabetes mellitus Code(s): E11.9 - TYPE 2 DIABETES MELLITUS WITHOUT COMPLICATIONS (6) Hyponatremia Code(s): E87.1 - HYPO-OSMOLALITY AND HYPONATREMIA (7) Acute renal failure Code(s): N17.9 - ACUTE KIDNEY FAILURE, UNSPECIFIED Qualifiers: Acute renal failure type: unspecified Qualified Code(s): N17.9 - Acute kidney failure, unspecified (8) Hypokalemia Code(s): E87.6 - HYPOKALEMIA (9) Blood clot in bladder Code(s): N32.89 - OTHER SPECIFIED DISORDERS OF BLADDER (10) UTI (urinary tract infection) Code(s): N39.0 - URINARY TRACT INFECTION, SITE NOT SPECIFIED Assessment/Plan Probable Bladder blood clot: repeat US in 1-2 weeks; f/u as outpatient Renal, Cardio, NeuroSx, ID consults are appreciated On IV abtx AM labs Pt is not cleared for surgery -pt's status to updated daily. Pt's condition was reviewed with pt's nurse.
--- NOTE | 2018-12-08 15:56 | PN ---
Progress Note, Physician History of Present Illness: Pt seen and examined. Events noted/labs reviewed. Pt states she is feeling better. No fever/chills, CP, SOB, dysuria, abd pain/n/v/d at this time. Tolerating antibiotics. - Current Medication List Current Medications: Active Medications Acetaminophen (Tylenol -) 500 mg PO Q6H PRN PRN Reason: PAIN Last Admin: 12/07/18 16:34 Dose: 500 mg Allopurinol (Zyloprim -) 100 mg PO DAILY [facility] Last Admin: 12/08/18 09:51 Dose: 100 mg Atorvastatin Calcium (Lipitor -) 20 mg PO HS [facility] Last Admin: 12/07/18 21:03 Dose: 20 mg Carvedilol (Coreg -) 12.5 mg PO BID [facility] Last Admin: 12/08/18 09:55 Dose: 12.5 mg Cinacalcet (Sensipar -) 30 mg PO DAILY [facility] Last Admin: 12/08/18 09:56 Dose: 30 mg Gabapentin (Neurontin -) 300 mg PO DAILY [facility] Last Admin: 12/08/18 09:51 Dose: 300 mg Glipizide (Glucotrol -) 2.5 mg PO PC [facility] Last Admin: 12/08/18 13:28 Dose: 2.5 mg Hydralazine HCl (Apresoline -) 50 mg PO TID [facility] Last Admin: 12/08/18 13:28 Dose: 50 mg Ceftriaxone Sodium 1 gm/ (Dextrose) 50 mls @ 100 mls/hr IVPB DAILY [facility] Last Admin: 12/08/18 09:51 Dose: 100 mls/hr Insulin Aspart (Novolog Vial Sliding Scale -) 1 vial SQ [facility]; Protocol Last Admin: 12/08/18 11:17 Dose: Not Given Insulin Detemir (Levemir Vial) 18 units SQ [facility] Last Admin: 12/07/18 21:03 Dose: 18 units Isosorbide Mononitrate (Imdur -) 90 mg PO DAILY [facility] Last Admin: 12/08/18 09:55 Dose: 90 mg Latanoprost (Xalatan 0.005% Eye Drops -) 1 drop OU [facility] Last Admin: 12/07/18 21:04 Dose: 1 drop Levothyroxine Sodium (Synthroid -) 50 mcg PO AM [facility] Last Admin: 12/08/18 06:03 Dose: 50 mcg Polyethylene Glycol (Miralax (For Daily Use) -) 17 gm PO TID [facility] Last Admin: 12/08/18 13:28 Dose: Not Given Potassium Chloride (K-Dur -) 20 meq PO DAILY [facility] Last Admin: 12/08/18 09:51 Dose: 20 meq Ranitidine HCl (Zantac -) 150 mg PO BID [facility] Last Admin: 12/08/18 09:51 Dose: 150 mg Tamsulosin HCl (Flomax -) 0.4 mg PO DAILY@0830 [facility] Last Admin: 12/08/18 09:55 Dose: 0.4 mg Tramadol HCl (Ultram -) 50 mg PO Q8H PRN PRN Reason: PAIN LEVEL 6-10 Last Admin: 12/08/18 09:53 Dose: 50 mg - Objective Vital Signs: Vital Signs Temperature 98.0 F 12/08/18 14:14 Pulse Rate 71 12/08/18 14:14 Respiratory Rate 20 12/08/18 14:14 Blood Pressure 138/66 12/08/18 14:14 O2 Sat by Pulse Oximetry (%) 100 12/08/18 09:00 Constitutional: Yes: No Distress, Calm Cardiovascular: Yes: Regular Rate and Rhythm Respiratory: Yes: Regular Gastrointestinal: Yes: Normal Bowel Sounds, Soft, Abdomen, Obese Genitourinary: Yes: WNL Extremities: Yes: WNL Integumentary: Yes: WNL Neurological: Yes: Alert Labs: CBC, BMP 12/08/18 06:30 12/08/18 06:30 INR, PTT INR 0.97 (0.83-1.09) 11/26/18 15:46 Microbiology 12/02/18 14:45 Blood - Peripheral Venous Blood Culture - Final NO GROWTH AFTER 5 DAYS INCUBATION 12/02/18 14:55 Blood - Peripheral Venous Blood Culture - Final NO GROWTH AFTER 5 DAYS INCUBATION 12/02/18 18:00 Urine - Urine - Catheterized Urine Culture - Final Escherichia Coli 12/02/18 13:30 Stool Clostridioides difficile Antigen - Final 12/02/18 13:30 Stool Clostridioides difficile Toxin Assay - Final 11/26/18 14:48 Urine - Urine [place] Urine Culture - Final NO GROWTH OBTAINED Problem List - Problems (1) Cervical spondylosis with myelopathy and radiculopathy Code(s): M47.12 - OTHER SPONDYLOSIS WITH MYELOPATHY, CERVICAL REGION; M47.22 - OTHER SPONDYLOSIS WITH RADICULOPATHY, CERVICAL REGION (2) Leukocytosis Code(s): D72.829 - ELEVATED WHITE BLOOD CELL COUNT, UNSPECIFIED (3) UTI (urinary tract infection) Code(s): N39.0 - URINARY TRACT INFECTION, SITE NOT SPECIFIED (4) ANDRÉS (acute kidney injury) Code(s): N17.9 - ACUTE KIDNEY FAILURE, UNSPECIFIED (5) Anemia Code(s): D64.9 - ANEMIA, UNSPECIFIED (6) CAD (coronary artery disease) Code(s): I25.10 - ATHSCL HEART DISEASE OF [place] CORONARY ARTERY W/O ANG PCTRS Qualifiers: Coronary Disease-Associated Artery/Lesion type: [place] artery [place] vs. transplanted heart: [place] heart Associated angina: without angina Qualified Code(s): I25.10 - Atherosclerotic heart disease of [place] coronary artery without angina pectoris (7) Diabetes mellitus Code(s): E11.9 - TYPE 2 DIABETES MELLITUS WITHOUT COMPLICATIONS (8) Hyperlipidemia Code(s): E78.5 - HYPERLIPIDEMIA, UNSPECIFIED Qualifiers: Hyperlipidemia type: pure hypercholesterolemia Qualified Code(s): E78.00 - Pure hypercholesterolemia, unspecified; E78.0 - Pure hypercholesterolemia Assessment/Plan Cervical spine stenosis with myelopathy UTI Possible bladder clot -- Pt afebrile, leukocytosis resolved, wishes to go home -- may switch to cefpodoxime 200 mg po daily x 6 days, starting in a.m. -- f/u with neurosurgery , Pt instructed to seek medical attention if develops fever, recurrence of symptoms
--- NOTE | 2018-12-08 18:31 | DS ---
Physical Examination Vital Signs: Vital Signs Temperature 98.0 F 12/08/18 14:14 Pulse Rate 71 12/08/18 14:14 Respiratory Rate 20 12/08/18 14:14 Blood Pressure 138/66 12/08/18 14:14 O2 Sat by Pulse Oximetry (%) 100 12/08/18 09:00 Findings/Remarks: See Progress note for HPI, ROS, PE Labs: CBC, BMP 12/08/18 06:30 12/08/18 06:30 Discharge Summary Reason For Visit: WEAKNESS Current Active Problems Blood clot in bladder (Acute) Cervical spondylosis with myelopathy and radiculopathy (Acute) Hypokalemia (Acute) Hyponatremia (Acute) Impaired gait (Acute) Leukocytosis (Acute) UTI (urinary tract infection) (Acute) Procedures: Principal: CXR. Cervical MRI. Bladder US Hospital Course: Pt with known DM, cervical spine radiculopathy came to ER for weakness and unsteady gait; she was found to have significant hyponatremia and hyypokalemia ; pt was admitted, started on IVF, K was replaced over few days; pt was seen by Renal ( Dr Tian), NeuroSx (Dr Man), Cardio (Dr Kiser/ [place]). As she was recovering from electrolytes abnormalities pt was noticed to have UTI and started on IV abtx; pt was seen by ID(Dr Lawrence). Pt with an episode of CP, negative workup, considered to be non cardiac in nature. Pt's non-emergent cervical spine surgery was not cleared for above medical conditions. Pt improved and is able to ambulate. Pt to be DC'ed home with outpatient f/u. Condition: Improved - Instructions Diet, Activity, Other Instructions: Resume diet Referrals: Jam Sunshine MD [Primary Care Provider] - (early next week) Apollo Kiser MD [Staff Physician] - (1 to 2 weeks) Wm Tian MD [Staff Physician] - (within a week) Disposition: HOME - Home Medications Comprehensive Discharge Medication List: Ambulatory Orders See Patient discharge instructions
[2018-12-08 18:35] VITALS: BP 127/43; PULSE 64; TEMP 97.5
--- NOTE | 2019-02-12 09:38 | EKG ---
Test Reason : Blood Pressure : / mmHG Vent. Rate : 059 BPM Atrial Rate : 059 BPM P-R Int : 124 ms QRS Dur : 076 ms QT Int : 410 ms P-R-T Axes : 023 054 050 degrees QTc Int : 405 ms SINUS BRADYCARDIA WITH PREMATURE ATRIAL COMPLEXES OTHERWISE NORMAL ECG WHEN COMPARED WITH ECG OF 26-NOV-2018 17:21, QRS DURATION HAS DECREASED QT HAS SHORTENED Confirmed by Atul Whipple MD ([id number]) on 02/12/2019 9:38:12 AM Referred By: Confirmed By:Atul Whipple MD
== END 2018-12-08 19:25 | disposition home or self-care (01) | DRG 683 ==
LOC: JER 12:32 → JERBED 15:51 → J4W 19:19 → J7W 11-30 17:06
PROVIDERS: ADMIT Specialist; ATTEND Specialist
DX: N17.9 Acute kidney failure, unspecified (principal); M47.12 Other spondylosis with myelopathy, cervical region; E87.1 Hypo-osmolality and hyponatremia; I13.0 Hypertensive heart and chronic kidney disease with heart failure and stage 1 through stage 4 chronic kidney disease, or unspecified chronic kidney disease; I50.32 Chronic diastolic (congestive) heart failure; E87.3 Alkalosis; I42.8 Other cardiomyopathies; N39.0 Urinary tract infection, site not specified; N18.4 Chronic kidney disease, stage 4 (severe); Z79.4 Long term (current) use of insulin; M47.22 Other spondylosis with radiculopathy, cervical region; E87.6 Hypokalemia; I25.10 Atherosclerotic heart disease of native coronary artery without angina pectoris; E11.22 Type 2 diabetes mellitus with diabetic chronic kidney disease; D64.9 Anemia, unspecified; E78.5 Hyperlipidemia, unspecified; E03.9 Hypothyroidism, unspecified; E86.1 Hypovolemia; N32.89 Other specified disorders of bladder; D72.1 Eosinophilia; R07.89 Other chest pain
CPT/HCPCS: 36415; 71045-TC-FY; 71046-TC-FY; 72141-TC; 73030-TC-LT-FY; 76856-TC; 80048; 80053; 81003; 82550; 82962; 83735; 84100; 84484; 85025; 85027; 85610; 85730; 87040; 87086; 87186; 87205; 87324; 87449; 93005; 93010; 97116-GP; 97161-GP; 99284-25; J7030

== ENCOUNTER 2019-01-24 11:07 | Emergency (ER) | payer OTHER | END 2019-01-24 14:29 | disposition home or self-care (01) | LOC: JER 11:07 ==

== ENCOUNTER 2019-02-05 10:55 | Inpatient (IN) | payer OTHER ==
[2019-02-05] MEDS ORDERED: ASPIRIN 81 MG CHEWABLE TABLETS PO ONE ×2 (11:28→11:32)
[2019-02-05 11:30] VITALS: BMI 32.9
[2019-02-05] MEDS ORDERED: MAG HYDROX/AL HYDROX/SIMETH 30 ML UNIT-DOSE CUP PO ONE (11:41)
[2019-02-05] MEDS ORDERED: METOCLOPRAMIDE HCL INJECTION 10 MG/2 ML VIAL IVPB ONE (11:41)
[2019-02-05] MEDS ORDERED: LIDOCAINE VISCOUS 2% ORAL/TOP 20 ML UNIT-DOSE CUP MM ONE (11:41)
[2019-02-05] MEDS ORDERED: FAMOTIDINE 20 MG/50 ML IVPB 20 MG/50 ML MG IVPB ONE ×2 (11:41→12:00)
--- NOTE | 2019-02-05 11:51 | PDOC ---
Documentation entered by Tiff Peres SCRIBE, acting as scribe for Stacy Albright DO. Stacy Albright DO: This documentation has been prepared by the savannahibe, Tiff Peres SCRIBE, under my direction and personally reviewed by me in its entirety. I confirm that the documentation accurately reflects all work, treatment, procedures, and medical decision making performed by me. Attending Attestation - Resident Resident Name: Galen Durham - ED Attending Attestation I have performed the following: I have examined & evaluated the patient, The case was reviewed & discussed with the resident, I agree w/resident's findings & plan, Exceptions are as noted - HPI HPI: 02/05/19 11:56 The patient is an 83-year-old female, with a past medical history of CHF, DM, HTN, HLD, GERD, and hypothyroidism, who presents to the ED with shortness of breath and chest pain that began this morning. Patient is alert, awake, and oriented. She reports experiencing sharp epigastric pain for the past couple of days that is nonradiating. The patient took aspirin while on her way to the ED. She takes 100 mg of Lasix daily. The patient denies any fever, chills, nausea, vomiting, diarrhea, or constipation. Denies any weakness, lightheadedness, numbness or tingling. Allergies: NKA PCP: Dr. Jam Sunshine Intensivist: Dr. Carolyne Kiser - Physicial Exam PE: 02/05/19 11:56 GENERAL: (+)Patient is obese. Awake, alert, and fully oriented, in no acute distress HEAD: No signs of trauma EYES: PERRLA, EOMI, sclera anicteric, conjunctiva clear ENT: Auricles normal inspection, hearing grossly normal, nares patent, oropharynx clear without exudates. Moist mucosa NECK: Normal ROM, supple, no lymphadenopathy, JVD, or masses LUNGS: (+)Rales B/L, lungs are diminished at bases HEART: Regular rate and rhythm, normal S1 and S2, no murmurs, rubs or gallops ABDOMEN: Soft, nontender, normoactive bowel sounds. No guarding, no rebound. No masses EXTREMITIES: (+)3+ pitting edema in both legs. No calf tenderness. Normal range of motion. No clubbing or cyanosis. No cords or erythema. NEUROLOGICAL: Cranial nerves II through XII grossly intact. Normal speech, normal gait SKIN: Warm, Dry, normal turgor, no rashes or lesions noted - Medical Decision Making 02/05/19 11:48 I, Dr. Stacy Albright, DO, attest that this document has been prepared under my direction and personally reviewed by me in its entirety. I further attest, that it accurately reflects all work, treatment, procedures and medical decision -making performed by me. 02/05/19 11:49 a/p: 83yo female with hx of chf - follows with dr. sunshine and dr. kiser with cp and sob -increasing swelling to LE -L sided cp - no radiation -also c/o epigastric pain at night when she goes to sleep - sour taste in mouth -concern for chf exacerbation given increased swelling to LE - underwent ultrasound imaging of legs yesterday that were negative for dvt -concern for gastritis as cause of epigastric pain -will send labs, ekg, cxr -pt will need admission and extra dose of lasix 02/05/19 13:07 cr at baseline trop neg bnp [address] sunshine pt will needs obs placement for cp eval asa given in the ED 02/05/19 13:34 cxr without acute findings no b lines on bedside ultrasound pt states pain improved po challenge given resident discussed the case with Dr. Sunshine who accepts pt to service tele obs consult to dr. carolyne kiser Heart Score/ECG Review - ECG Intrepretation Comment:: 02/05/19 11:48 sinus at 65, nl axis, nl interval, no acute st/t wave findings
[2019-02-05] MEDS ORDERED: LIDOCAINE VISCOUS 2% ORAL/TOP 20 ML UNIT-DOSE CUP ONE (11:59)
[2019-02-05] MEDS ORDERED: MAG HYDROX/AL HYDROX/SIMETH 30 ML UNIT-DOSE CUP ONE (12:00)
[2019-02-05] MEDS ORDERED: METOCLOPRAMIDE HCL INJECTION 10 MG/2 ML VIAL ONE (12:00)
[2019-02-05] MEDS ORDERED: ASPIRIN 81 MG CHEWABLE TABLETS ONE (12:00)
[2019-02-05 12:32] LABS: BASO % 0.7 % (0-2.0); EOS % 6.9 % (0-4.5); HEMATOCRIT 29.6 % (32.4-45.2); LYMPH % 11.9 % (8-40); MCH 28.1 pg (25.7-33.7); MCHC 33.7 g/dl (32.0-36.0); MEAN CELL VOLUME 83.4 fl (80-96); MONO % 8.7 % (3.8-10.2); NEUT % 71.8 % (42.8-82.8); PLATELET COUNT 211 K/MM3 (134-434); RBC 3.55 M/mm3 (3.60-5.2); WHITE BLOOD COUNT 10.1 K/mm3 (4.0-10.0)
[2019-02-05 12:54] LABS: ALBUMIN 3.2 g/dl (3.4-5.0); ALK PHOS 112 U/L (45-117); ANION GAP 5 MMOL/L (8-16); BILIRUBIN,TOTAL 0.5 mg/dL (0.2-1); BLOOD UREA NITROGEN 33.4 mg/dL (7-18); CALCIUM 8.2 mg/dL (8.5-10.1); CHLORIDE 92 mmol/L (98-107); CO2 35 mmol/L (21-32); CREATININE 1.9 mg/dL (0.55-1.3); GLUCOSE,RANDOM 187 mg/dL (74-106); N-TERMINAL BNP 304.6 pg/ml (5-450); POTASSIUM 3.9 mmol/L (3.5-5.1); SGOT/AST 21 U/L (15-37); SGPT/ALT 19 U/L (13-61); SODIUM 132 mmol/L (136-145); TOT PROT 6.4 g/dl (6.4-8.2)
[2019-02-05 12:59] LABS: INR 0.99 (0.83-1.09); PROTHROMBIN TIME (PATIENT) 11.7 SEC (9.7-13.0)
--- NOTE | 2019-02-05 13:28 | PDOC ---
History of Present Illness - General Chief Complaint: Chest Pain Stated Complaint: CHEST PAIN Time Seen by Provider: 02/05/19 11:02 - History of Present Illness Initial Comments: The pt is an 83F w/ a history of HTN, ble edema, CKD, DM who presents for evaluation of 1 day of left sided chest pain. The pain started when she woke up today, has been constant, non-exertional, non-radiating, non-positional, and is not exacerbated or alleviated by anything that she can identify. She has not tried taking anything for her pain. She also reports epigastric abdominal pain that is burning, non-radiating, associated with acidic taste in her mouth, and is not exacerbated or alleviated by anything she can identify. She denies fevers/chills, [place], vision changes, N/V/C/D, dysuria, hematuria, or blood in her stool. Reports being compliant with Lasix and other medications. 02/05/19 13:36 Past History - Past Medical History Allergies/Adverse Reactions: Allergies Allergy/AdvReac Type Severity Reaction Status Date / Time No Known Allergies Allergy Verified 01/24/19 11:09 Home Medications: Ambulatory Orders Aspirin Coated [Ecotrin -] 81 mg PO DAILY #30 tablet.ec 07/09/16 Levothyroxine [Synthroid -] 50 mcg PO DAILY #90 tablet 07/09/16 Allopurinol [Zyloprim -] 100 mg PO DAILY 10/02/17 Atorvastatin Ca [Lipitor] 20 mg PO HS 10/02/17 Gabapentin [Neurontin -] 300 mg PO HS 10/02/17 Acetaminophen [Tylenol .Extra-Strength -] 500 mg PO Q6H PRN tablet 11/12/17 Tamsulosin HCl [Flomax -] 0.4 mg PO DAILY@0830 #90 cap.er.24h 11/12/17 Bisacodyl [Bisacodyl -] 5 mg PO ASDIR 11/26/18 Carvedilol [Coreg -] 12.5 mg PO BID 11/26/18 Cinacalcet HCl [Sensipar] 30 mg PO DAILY 11/26/18 Hydralazine HCl 50 mg PO TID 11/26/18 Isosorbide Mononitrate [Imdur -] 90 mg PO DAILY 11/26/18 Latanoprost/Pf [Latanoprost 0.005% Eye Drop] 1 p OP DAILY 11/26/18 Polyethylene Glycol 3350 [Miralax 119 gm Btl -] 17 gm PO DAILY 11/26/18 Potassium Chloride 20 meq PO BID 11/26/18 Ranitidine HCl [Zantac] 150 mg PO BID 11/26/18 Cefpodoxime Proxetil [Vantin -] 200 mg PO DAILY 6 Days #6 tablet MDD 1 12/08/18 Insulin (Levemir) [Levemir Vial] 18 units SQ HS units 12/08/18 Furosemide 100 mg PO BID 02/05/19 Anemia: No Asthma: No Cancer: No COPD: No CHF: Yes Diabetes: Yes GI Disorders: Yes (GERD.) HTN: Yes Hypercholesterolemia: Yes Thyroid Disease: Yes (HYPO.) - Surgical History Abdominal Surgery: Yes - Immunization History Immunization Up to Date: Yes - Suicide/Smoking/Psychosocial Hx Smoking Status: No Smoking History: Never smoked Have you smoked in the past 12 months: No Number of Cigarettes Smoked Daily: 0 Information on smoking cessation initiated: No Hx Alcohol Use: No Drug/Substance Use Hx: No Substance Use Type: None Hx Substance Use Treatment: No Review of Systems - Review of Systems Able to Perform ROS?: Yes Comments:: GENERAL/CONSTITUTIONAL: No fever or chills HEAD, EYES, EARS, NOSE AND THROAT: No change in vision. No change in hearing. No sore throat CARDIOVASCULAR: No shortness of breath RESPIRATORY: Denies cough GASTROINTESTINAL: No nausea, vomiting, diarrhea or constipation GENITOURINARY: No dysuria, frequency, or change in urination MUSCULOSKELETAL: No joint or muscle swelling or pain. No neck or back pain SKIN: No rash NEUROLOGIC: No headache, vertigo, loss of consciousness, or change in strength/ sensation ENDOCRINE: No increased thirst. No abnormal weight change ALLERGIC/IMMUNOLOGIC: No hives or skin allergy 02/05/19 13:21 Is the patient limited Greek proficient: No *Physical Exam - Vital Signs Last Vital Signs Temp Pulse Resp BP Pulse Ox 97.4 F L 83 18 141/66 98 02/05/19 10:57 02/05/19 10:57 02/05/19 10:57 02/05/19 10:57 02/05/19 10:57 - Physical Exam Comments: GENERAL: Awake, alert, and oriented to person/place/time, in no acute distress HEAD: No signs of trauma, normocephalic, atraumatic EYES: PERRLA, EOMI, sclera anicteric, conjunctiva clear ENT: Hearing grossly normal, nares patent, oropharynx clear without exudates. No uvular deviation. Moist mucosa LUNGS: No distress, speaks in full sentences, clear to auscultation bilaterally HEART: Regular rate and rhythm, normal S1 and S2, no murmurs appreciated, peripheral pulses normal and equal bilaterally ABDOMEN: Soft, mild epigastric TTP w/o rebound or guarding, normoactive bowel sounds EXTREMITIES: Normal inspection, Normal range of motion, no edema. No clubbing or cyanosis NEUROLOGICAL: Cranial nerves II through XII grossly intact. Normal speech, normal gait, no focal sensorimotor deficits SKIN: Warm, Dry 02/05/19 13:21 ED Treatment Course - LABORATORY CBC & Chemistry Diagram: 02/05/19 11:45 02/05/19 11:45 - ADDITIONAL ORDERS Additional order review: Laboratory Results 02/05/19 02/05/19 11:45 11:45 PT with INR 11.70 INR 0.99 Sodium 132 L Potassium 3.9 Chloride 92 L Carbon Dioxide 35 H Anion Gap 5 L BUN 33.4 H Creatinine 1.9 H Est GFR (CKD-EPI)AfAm 27.77 Est GFR (CKD-EPI)NonAf 23.96 Random Glucose 187 H Calcium 8.2 L Total Bilirubin 0.5 AST 21 ALT 19 Alkaline Phosphatase 112 Troponin I < 0.02 B-Natriuretic Peptide 304.6 Total Protein 6.4 Albumin 3.2 L 02/05/19 11:45 RBC 3.55 L MCV 83.4 MCHC 33.7 RDW 19.0 H MPV 8.0 Neutrophils % 71.8 Lymphocytes % 11.9 Monocytes % 8.7 Eosinophils % 6.9 H Basophils % 0.7 - RADIOLOGY Radiology Studies Ordered: Category Date Time Status CHEST X-RAY PORTABLE* [RAD] Stat Radiology 02/05/19 11:22 Completed - Medications Given in the ED: ED Medications Discontinued Medications Generic Name Dose Route Start Last Admin Trade Name Freq PRN Reason Stop Dose Admin Al Hydroxide/Mg Hydroxide 30 ml 02/05/19 11:41 02/05/19 12:14 Mylanta Oral Suspension - PO 02/05/19 11:42 30 ml ONCE ONE Administration Aspirin 81 mg 02/05/19 11:32 02/05/19 12:14 Asa - PO 02/05/19 11:33 81 mg ONCE ONE Administration Famotidine/Sodium Chloride 20 mg in 50 mls @ 100 mls/hr 02/05/19 11:41 12:14 Pepcid 20 Mg Premixed Ivpb - IVPB 02/05/19 12:10 100 mls/hr ONCE ONE Administration Lidocaine HCl 20 ml 02/05/19 11:41 02/05/19 12:14 Xylocaine 2% Viscous Oral - MM 02/05/19 11:42 20 ml ONCE ONE Administration Metoclopramide HCl 10 mg 02/05/19 11:41 02/05/19 12:14 Reglan Injection - IVPB 02/05/19 11:42 10 mg ONCE ONE Administration Medical Decision Making - Medical Decision Making The pt is an 83F w/ a history of HTN, BLE edema, DM who presents for evaluation of 1 day of atypical chest pain and epigastrc pain DDx: ACS, consider CHF exacerbation, PE, PNA, MSK, GERD ED Course Labs sent ASA 81 to make 324mg total today NTG given by EMS prior to arrival, pt normotensive here with no change in pain s /p NTG GI cocktail for symptomatic relief Initial trop I neg Lytes unremarkable Cr elevated but at baseline WBC unremarkable abdominal pain resolved s/p GI cocktail chest pain improved but resolved Plan for obs for ACS Pt signed out to Dr. 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
--- NOTE | 2019-02-05 13:38 | EKG ---
Test Reason : Blood Pressure : / mmHG Vent. Rate : 065 BPM Atrial Rate : 065 BPM P-R Int : 132 ms QRS Dur : 082 ms QT Int : 416 ms P-R-T Axes : 063 059 039 degrees QTc Int : 432 ms NORMAL SINUS RHYTHM NORMAL ECG WHEN COMPARED WITH ECG OF 24-JAN-2019 13:02, NO SIGNIFICANT CHANGE WAS FOUND Confirmed by MD EDEL, HA ([id number]) on 02/05/2019 1:38:03 PM Referred By: Confirmed By:HA HOLLINGSWORTH MD
[2019-02-05] MEDS ORDERED: ACETAMINOPHEN 325 MG TABLET (FP) PO ONE (14:44)
[2019-02-05] MEDS ORDERED: ACETAMINOPHEN 325 MG TABLET (FP) ONE (14:49)
[2019-02-05 17:04] LABS: LIPASE 195 U/L (73-393)
[2019-02-05] MEDS ORDERED: ACETAMINOPHEN 500 MG TABLET (FP) PO PRN (18:38)
--- NOTE | 2019-02-05 18:38 | HP ---
Admitting History and Physical - Primary Care Physician PCP: Jam Sunshine - Admission Chief Complaint: CP History of Present Illness: Pt with CP, SS and left side, while woke up this am, associated with SOB and dizziness, no radiation, no diaphoresis. Pt had CP for about 1 hour. She call 911. Pt also c/o worsening LE edema for the last few days. History Source: Patient - Past Medical History Cardiovascular: Yes: CAD (non-obstructive), CHF, HTN, Hyperlipdemia, Other ( Angina pectoris) Gastrointestinal: Yes: Constipation, Diverticulosis, GERD, Other (colon polyps: sessil serrated adenomas x 2 2014) Renal/: Yes: Renal Inusuff Musculoskeletal: Yes: Other (Spinal stenosis) Endocrine: Yes: Diabetes Mellitus (Insulin dependent), Hypothyroidism - Past Surgical History Past Surgical History: Yes: Hysterectomy ([place], BSO in 1981), Oopherectomy - Smoking History Smoking history: Never smoked Have you smoked in the past 12 months: No Aproximately how many cigarettes per day: 0 - Alcohol/Substance Use Hx Alcohol Use: No History of Substance Use: reports: None - Social History ADL: Independent History of Recent Travel: Yes (WENT TO [place] TWO YEARS AGO) Home Medications - Allergies Allergies/Adverse Reactions: Allergies Allergy/AdvReac Type Severity Reaction Status Date / Time No Known Allergies Allergy Verified 01/24/19 11:09 - Home Medications Home Medications: Ambulatory Orders Aspirin Coated [Ecotrin -] 81 mg PO DAILY #30 tablet.ec 07/09/16 Levothyroxine [Synthroid -] 50 mcg PO DAILY #90 tablet 07/09/16 Allopurinol [Zyloprim -] 100 mg PO DAILY 10/02/17 Atorvastatin Ca [Lipitor] 20 mg PO HS 10/02/17 Gabapentin [Neurontin -] 300 mg PO HS 10/02/17 Acetaminophen [Tylenol .Extra-Strength -] 500 mg PO Q6H PRN tablet 11/12/17 Tamsulosin HCl [Flomax -] 0.4 mg PO DAILY@0830 #90 cap.er.24h 11/12/17 Bisacodyl [Bisacodyl -] 5 mg PO ASDIR 11/26/18 Carvedilol [Coreg -] 12.5 mg PO BID 11/26/18 Cinacalcet HCl [Sensipar] 30 mg PO DAILY 11/26/18 Hydralazine HCl 50 mg PO TID 11/26/18 Isosorbide Mononitrate [Imdur -] 90 mg PO DAILY 11/26/18 Latanoprost/Pf [Latanoprost 0.005% Eye Drop] 1 drp OP DAILY 11/26/18 Polyethylene Glycol 3350 [Miralax 119 gm Btl -] 17 gm PO DAILY 11/26/18 Potassium Chloride 20 meq PO BID 11/26/18 Ranitidine HCl [Zantac] 150 mg PO BID 11/26/18 Cefpodoxime Proxetil [Vantin -] 200 mg PO DAILY 6 Days #6 tablet MDD 1 12/08/18 Insulin (Levemir) [Levemir Vial] 18 units SQ HS units 12/08/18 Furosemide 100 mg PO BID 02/05/19 Family Disease History - Family Disease History Family Disease History: Diabetes: Brother, Sister, Other: Father ( in his 50s ? etiology) Physical Examination Vital Signs: Vital Signs Temperature 97.9 F 02/05/19 18:11 Pulse Rate 76 02/05/19 18:11 Respiratory Rate 18 02/05/19 18:11 Blood Pressure 139/68 02/05/19 18:11 O2 Sat by Pulse Oximetry (%) 97 02/05/19 18:11 Labs: CBC, BMP 02/05/19 11:45 02/05/19 11:45 Imaging - Results Chest X-ray: Report Reviewed Problem List - Problems (1) Chest pain Code(s): R07.9 - CHEST PAIN, UNSPECIFIED Qualifiers: Chest pain type: unspecified Qualified Code(s): R07.9 - Chest pain, unspecified (2) CAD (coronary artery disease) Code(s): I25.10 - ATHSCL HEART DISEASE OF [place] CORONARY ARTERY W/O ANG PCTRS Qualifiers: (3) CRF (chronic renal failure) Code(s): N18.9 - CHRONIC KIDNEY DISEASE, UNSPECIFIED Qualifiers: (4) Hyponatremia Code(s): E87.1 - HYPO-OSMOLALITY AND HYPONATREMIA Assessment/Plan Admit to monitor bed Serial CE Cardio consult AM labs
[2019-02-05] MEDS ORDERED: BISACODYL 5 MG TABLET.DR (FP) PO SCH (18:45)
[2019-02-05] MEDS ORDERED: FUROSEMIDE 40 MG TABLET (FP) PO SCH (22:00)
[2019-02-05] MEDS: ATORVASTATIN CA 20 MG TABLET (FP) PO SCH (22:43)
[2019-02-05] MEDS: GABAPENTIN 300 MG CAPSULE (FP) PO SCH (22:43)
[2019-02-05] MEDS: CARVEDILOL 12.5 MG TABLET (FP) PO SCH (22:43)
[2019-02-05] MEDS: hydrALAZINE HCL 50 MG TABLET (FP) PO SCH (22:44)
[2019-02-05] MEDS: RANITIDINE HCL 150 MG TABLET (FP) PO SCH (22:44)
[2019-02-05] MEDS: POTASSIUM CHLORIDE TABS 20 MEQ TABLET.ER (FP) PO SCH (22:44)
[2019-02-05] MEDS: INSULIN (LEVEMIR) 100 UNITS/ML UNITS SQ SCH (22:50)
[2019-02-05] MEDS: INSULIN SLIDING SCALE (NOVOLOG) 1 VIAL SQ SCH (22:51)
[2019-02-06] MEDS: hydrALAZINE HCL 50 MG TABLET (FP) PO SCH ×3 (06:25→21:31)
[2019-02-06] MEDS: LEVOTHYROXINE NA 50 MCG TABLET (FP) PO SCH (06:26)
[2019-02-06] MEDS: INSULIN SLIDING SCALE (NOVOLOG) 1 VIAL SQ SCH ×4 (06:26→22:22)
[2019-02-06] MEDS: FUROSEMIDE 40 MG TABLET (FP) PO SCH ×2 (06:29→14:21)
[2019-02-06 08:15] LABS: HEMATOCRIT 33.8 % (32.4-45.2); HEMOGLOBIN 11.1 GM/dL (10.7-15.3); MCH 28.2 pg (25.7-33.7); MCHC 32.7 g/dl (32.0-36.0); MEAN CELL VOLUME 86.2 fl (80-96); MEAN PLT VOLUME 7.5 fl (7.5-11.1); PLATELET COUNT 196 K/MM3 (134-434); RBC 3.93 M/mm3 (3.60-5.2); RDW 18.6 % (11.6-15.6); WHITE BLOOD COUNT 9.9 K/mm3 (4.0-10.0)
[2019-02-06 08:37] LABS: BLOOD UREA NITROGEN 31.5 mg/dL (7-18); CALCIUM 8.3 mg/dL (8.5-10.1); CREATININE 1.9 mg/dL (0.55-1.3); POTASSIUM 4.1 mmol/L (3.5-5.1)
[2019-02-06] MEDS: TAMSULOSIN HCL 0.4 MG CAP PO SCH (09:00)
--- NOTE | 2019-02-06 09:22 | PN ---
Progress Note, Physician History of Present Illness: Pt w/o CP, palpitations, dizziness, SOB, cough, abd pain - Current Medication List Current Medications: Active Medications Acetaminophen (Tylenol -) 500 mg PO Q6H PRN PRN Reason: PAIN LEVEL 1-5 Allopurinol (Zyloprim -) 100 mg PO DAILY [facility] Aspirin (Ecotrin -) 81 mg PO DAILY [facility] Atorvastatin Calcium (Lipitor -) 20 mg PO HS [facility] Last Admin: 02/05/19 22:43 Dose: 20 mg Bisacodyl (Dulcolax -) 5 mg PO ASDIR [facility] Carvedilol (Coreg -) 12.5 mg PO BID [facility] Last Admin: 02/05/19 22:43 Dose: 12.5 mg Cinacalcet (Sensipar -) 30 mg PO DAILY [facility] Furosemide (Lasix -) 100 mg PO BIDLASIX [facility] Last Admin: 02/06/19 06:29 Dose: 100 mg Gabapentin (Neurontin -) 300 mg PO HS [facility] Last Admin: 02/05/19 22:43 Dose: 300 mg Hydralazine HCl (Apresoline -) 50 mg PO TID [facility] Last Admin: 02/06/19 06:25 Dose: 50 mg Insulin Aspart (Novolog Vial Sliding Scale -) 1 vial SQ [facility]; Protocol Last Admin: 02/06/19 06:26 Dose: Not Given Insulin Detemir (Levemir Vial) 18 units SQ [facility] Last Admin: 02/05/19 22:50 Dose: 18 units Isosorbide Mononitrate (Imdur -) 90 mg PO DAILY [facility] Levothyroxine Sodium (Synthroid -) 50 mcg PO DAILY@0700 [facility] Last Admin: 02/06/19 06:26 Dose: 50 mcg Non-Formulary Medication (Latanoprost/Pf [Latanoprost 0.005% Eye Drop]) 1 drp OP DAILY [facility] Polyethylene Glycol (Miralax (For Daily Use) -) 17 gm PO DAILY [facility] Potassium Chloride (K-Dur -) 20 meq PO BID [facility] Last Admin: 02/05/19 22:44 Dose: 20 meq Ranitidine HCl (Zantac -) 150 mg PO BID [facility] Last Admin: 02/05/19 22:44 Dose: 150 mg Tamsulosin HCl (Flomax -) 0.4 mg PO DAILY@0830 [facility] - Objective Vital Signs: Vital Signs Temperature 98.6 F 02/06/19 04:27 Pulse Rate 63 02/06/19 04:27 Respiratory Rate 18 02/06/19 04:27 Blood Pressure 134/67 02/06/19 04:27 O2 Sat by Pulse Oximetry (%) 95 02/05/19 21:00 Constitutional: Yes: No Distress, Calm Cardiovascular: Yes: Regular Rate and Rhythm, S1, S2 Respiratory: Yes: Regular, CTA Bilaterally Gastrointestinal: Yes: Normal Bowel Sounds, Soft, Abdomen, Obese, Tenderness Edema: LLE: 2+, RLE: 2+ Neurological: Yes: Alert, Oriented Labs: CBC, BMP 02/06/19 06:51 02/06/19 06:51 INR, PTT INR 0.99 (0.83-1.09) 02/05/19 11:45 Problem List - Problems (1) Chest pain Code(s): R07.9 - CHEST PAIN, UNSPECIFIED Qualifiers: Chest pain type: unspecified Qualified Code(s): R07.9 - Chest pain, unspecified (2) CAD (coronary artery disease) Code(s): I25.10 - ATHSCL HEART DISEASE OF [place] CORONARY ARTERY W/O ANG PCTRS Qualifiers: Coronary Disease-Associated Artery/Lesion type: [place] artery (3) CRF (chronic renal failure) Code(s): N18.9 - CHRONIC KIDNEY DISEASE, UNSPECIFIED Qualifiers: (4) Hyponatremia Code(s): E87.1 - HYPO-OSMOLALITY AND HYPONATREMIA Assessment/Plan Admit to monitor bed Serial CE are negative Cardio consult AM labs
[2019-02-06] MEDS ORDERED: PATIENT'S OWN MEDICATION (NON-FORMULARY) (Latanoprost/Pf [Latanoprost 0.005% Eye Drop] 1 D OP SCH (10:00)
[2019-02-06] MEDS: CINACALCET HCL 30 MG TAB (FP) PO SCH (10:23)
[2019-02-06] MEDS: ASPIRIN COATED 81 MG TABLET.EC PO SCH (10:34)
[2019-02-06] MEDS: CARVEDILOL 12.5 MG TABLET (FP) PO SCH ×2 (10:34→21:31)
[2019-02-06] MEDS: RANITIDINE HCL 150 MG TABLET (FP) PO SCH ×2 (10:34→21:31)
[2019-02-06] MEDS: POTASSIUM CHLORIDE TABS 20 MEQ TABLET.ER (FP) PO SCH ×2 (10:34→21:31)
[2019-02-06] MEDS: ISOSORBIDE MONONITRATE 30 MG TAB.SR.24H (FP) PO SCH (10:34)
[2019-02-06] MEDS: ALLOPURINOL 100 MG TABLET (FP) PO SCH (10:35)
[2019-02-06] MEDS: POLYETHYLENE GLYCOL 3350 119 GM BTL PO SCH (10:35)
[2019-02-06] MEDS ORDERED: PT OWN MED DRAWER 7, Y5N ONE (10:43)
--- NOTE | 2019-02-06 19:37 | CON.CARD ---
Consult Consult Specialty:: Cardiology Referred by:: Jam Sunshine MD Reason for Consultation:: Chest pain, dyspnea - History of Present Illness Chief Complaint: Chest pain, dyspnea History of Present Illness: Patient is an 83 year old female with underlying history of HTN, type 2 DM, hypercholesterolemia, LV diastolic dysfunction, osteoarthritis, hypothyroidism, diverticular disease, CKD, cervical radiculopathy presented with CP associated with SOB and dizziness, no radiation, no diaphoresis. Pt also c/o worsening pedal edema for the last few days. - History Source History Provided By: Patient Limitations to Obtaining History: No Limitations - Past Medical History Cardio/Vascular: Yes: CAD (non-obstructive), CHF, HTN, Hyperlipdemia, Other ( Angina pectoris) Gastrointestinal: Yes: Constipation, Diverticulosis, GERD, Other (colon polyps: sessil serrated adenomas x 2 2014) Renal/: Yes: Renal Inusuff Musculoskeletal: Yes: Other (Spinal stenosis) Endocrine: Yes: Diabetes Mellitus (Insulin dependent), Hypothyroidism - Past Surgical History Past Surgical History: Yes: Hysterectomy ([place], BSO in 1981), Oopherectomy - Alcohol/Substance Use Hx Alcohol Use: No History of Substance Use: reports: None - Smoking History Smoking history: Never smoked Have you smoked in the past 12 months: No Aproximately how many cigarettes per day: 0 - Social History Usual Living Arrangement: With Spouse ADL: Independent History of Recent Travel: Yes (WENT TO [facility] TWO YEARS AGO) Home Medications - Allergies Allergies/Adverse Reactions: Allergies Allergy/AdvReac Type Severity Reaction Status Date / Time No Known Allergies Allergy Verified 01/24/19 11:09 - Home Medications Home Medications: Ambulatory Orders Aspirin Coated [Ecotrin -] 81 mg PO DAILY #30 tablet.ec 07/09/16 Levothyroxine [Synthroid -] 50 mcg PO DAILY #90 tablet 07/09/16 Allopurinol [Zyloprim -] 100 mg PO DAILY 10/02/17 Atorvastatin Ca [Lipitor] 20 mg PO HS 10/02/17 Gabapentin [Neurontin -] 300 mg PO HS 10/02/17 Acetaminophen [Tylenol .Extra-Strength -] 500 mg PO Q6H PRN tablet 11/12/17 Tamsulosin HCl [Flomax -] 0.4 mg PO DAILY@0830 #90 cap.er.24h 11/12/17 Bisacodyl [Bisacodyl -] 5 mg PO ASDIR 11/26/18 Carvedilol [Coreg -] 12.5 mg PO BID 11/26/18 Cinacalcet HCl [Sensipar] 30 mg PO DAILY 11/26/18 Hydralazine HCl 50 mg PO TID 11/26/18 Isosorbide Mononitrate [Imdur -] 90 mg PO DAILY 11/26/18 Latanoprost/Pf [Latanoprost 0.005% Eye Drop] 1 drp OP DAILY 11/26/18 Polyethylene Glycol 3350 [Miralax 119 gm Btl -] 17 gm PO DAILY 11/26/18 Potassium Chloride 20 meq PO BID 11/26/18 Ranitidine HCl [Zantac] 150 mg PO BID 11/26/18 Cefpodoxime Proxetil [Vantin -] 200 mg PO DAILY 6 Days #6 tablet MDD 1 12/08/18 Insulin (Levemir) [Levemir Vial] 18 units SQ HS units 12/08/18 Furosemide 100 mg PO BID 02/05/19 Family Disease History - Family Disease History Family Disease History: Diabetes: Brother, Sister, Other: Father ( in his 50s ? etiology) Review of Systems - Review of Systems Cardiovascular: reports: Chest Pain, Edema, Shortness of Breath Vital Signs: Vital Signs Temperature 97.9 F 02/06/19 18:19 Pulse Rate 60 02/06/19 18:19 Respiratory Rate 18 02/06/19 18:19 Blood Pressure 145/71 02/06/19 18:19 O2 Sat by Pulse Oximetry (%) 100 02/06/19 09:00 Constitutional: Yes: No Distress, Calm Neck: Yes: Supple Respiratory: Yes: Regular, Diminished Gastrointestinal: Yes: Normal Bowel Sounds, Soft Cardiovascular: Yes: Regular Rate and Rhythm JVD: No Carotid Bruit: No Heart Sounds: Yes: S1, S2 Murmur: Yes: Systolic Murmur, Grade 1 Edema: Yes Edema: LLE: 1+, RLE: 1+ - Other Data Labs, Other Data: CBC, BMP 02/06/19 06:51 02/06/19 06:51 INR, PTT INR 0.99 (0.83-1.09) 02/05/19 11:45 Troponin, BNP 02/05/19 21:25 Troponin I < 0.02 Troponin, BNP 02/05/19 21:25 Troponin I < 0.02 NSR @ 65 Ejection Fraction %: LVEF > or = 40 % Imaging - Results Chest X-ray: Report Reviewed (NAD) Problem List - Problems (1) Chest pain Code(s): R07.9 - CHEST PAIN, UNSPECIFIED Qualifiers: Chest pain type: unspecified Qualified Code(s): R07.9 - Chest pain, unspecified (2) Hypertension Code(s): I10 - ESSENTIAL (PRIMARY) HYPERTENSION Qualifiers: Hypertension type: unspecified Qualified Code(s): I10 - Essential (primary ) hypertension (3) Anemia Code(s): D64.9 - ANEMIA, UNSPECIFIED (4) Bilateral lower extremity edema Code(s): R60.0 - LOCALIZED EDEMA (5) CHF exacerbation Code(s): I50.9 - HEART FAILURE, UNSPECIFIED Qualifiers: Heart failure type: diastolic Qualified Code(s): I50.33 - Acute on chronic diastolic (congestive) heart failure (6) Cerebellar infarct Code(s): I63.9 - CEREBRAL INFARCTION, UNSPECIFIED (7) Cervical spondylosis with myelopathy and radiculopathy Code(s): M47.12 - OTHER SPONDYLOSIS WITH MYELOPATHY, CERVICAL REGION; M47.22 - OTHER SPONDYLOSIS WITH RADICULOPATHY, CERVICAL REGION (8) Non-occlusive coronary artery disease Code(s): I25.10 - ATHSCL HEART DISEASE OF [place] CORONARY ARTERY W/O ANG PCTRS (9) Diabetes mellitus with diabetic cardiomyopathy Code(s): E11.59 - TYPE 2 DIABETES MELLITUS WITH OTH CIRCULATORY COMPLICATIONS; I43 - CARDIOMYOPATHY IN DISEASES CLASSIFIED ELSEWHERE (10) Endothelial dysfunction of coronary artery Code(s): I99.8 - OTHER DISORDER OF CIRCULATORY SYSTEM (11) Hyperlipidemia Code(s): E78.5 - HYPERLIPIDEMIA, UNSPECIFIED Qualifiers: Hyperlipidemia type: pure hypercholesterolemia Qualified Code(s): E78.00 - Pure hypercholesterolemia, unspecified; E78.0 - Pure hypercholesterolemia (12) Hypothyroidism Code(s): E03.9 - HYPOTHYROIDISM, UNSPECIFIED Qualifiers: Hypothyroidism type: unspecified Qualified Code(s): E03.9 - Hypothyroidism , unspecified (13) Acute on chronic diastolic congestive heart failure Code(s): I50.33 - ACUTE ON CHRONIC DIASTOLIC (CONGESTIVE) HEART FAILURE Assessment/Plan Prior cardiac catheterization revealed normal LAD, 30% mild LCX and 60% mid RCA stenosis. Patient was advised medical therapy. Last echocardiography (11/08/17) revealed normal LV systolic function, moderate LVH, trace to mild MR. 1. Acute on chronic LV diastolic failure 2. Chest pain syndrome 3. CAD - non-obstructive, angina pectoris 4. HTN 5. Hypercholesterolemia 6. Type 2 DM 7. Hypothyroidism 8. CKD 9. H/o Hypovolemic hyponatremia and hypokalemia from diuretics and poor oral intake resolved 11. Spinal stenosis, cervical radiculopathy 12. Anemia PLAN: 1. IV diuresis with monitor diuretic response, renal fxn and electrolytes, elevate legs, ruled out for [place] 2. Continue ASA 81 qd, Carvedilol 12.5 mg BID, Lipitor 20 mg QHS, Imdur 90 mg QD and Hydralazine 50 mg TID as tolerated 3. Emphasized importance diet and medication compliance 4. Thank you for consultative opportunity
[2019-02-06] MEDS: FUROSEMIDE 40 MG/4 ML INJECTABLE VIAL IVPUSH SCH (20:09)
[2019-02-06] MEDS: GABAPENTIN 300 MG CAPSULE (FP) PO SCH (21:31)
[2019-02-06] MEDS: ATORVASTATIN CA 20 MG TABLET (FP) PO SCH (21:31)
[2019-02-06] MEDS: INSULIN (LEVEMIR) 100 UNITS/ML UNITS SQ SCH (22:22)
[2019-02-07] MEDS: FUROSEMIDE 40 MG/4 ML INJECTABLE VIAL IVPUSH SCH ×2 (05:55→13:05)
[2019-02-07] MEDS: hydrALAZINE HCL 50 MG TABLET (FP) PO SCH ×3 (05:55→21:49)
[2019-02-07] MEDS: INSULIN SLIDING SCALE (NOVOLOG) 1 VIAL SQ SCH ×4 (06:09→21:54)
[2019-02-07] MEDS: LEVOTHYROXINE NA 50 MCG TABLET (FP) PO SCH (06:10)
--- NOTE | 2019-02-07 07:56 | PN ---
Progress Note, Physician Chief Complaint: OOB to Chair no SOB but has [place] with minimal exertion (like going to the bathroom); yes pedal edema bilat meds consults labs noted d/w pt - Current Medication List Current Medications: Active Medications Acetaminophen (Tylenol -) 500 mg PO Q6H PRN PRN Reason: PAIN LEVEL 1-5 Allopurinol (Zyloprim -) 100 mg PO DAILY [facility] Last Admin: 02/06/19 10:35 Dose: 100 mg Aspirin (Ecotrin -) 81 mg PO DAILY [facility] Last Admin: 02/06/19 10:34 Dose: 81 mg Atorvastatin Calcium (Lipitor -) 20 mg PO HS [facility] Last Admin: 02/06/19 21:31 Dose: 20 mg Bisacodyl (Dulcolax -) 5 mg PO ASDIR [facility] Carvedilol (Coreg -) 12.5 mg PO BID [facility] Last Admin: 02/06/19 21:31 Dose: 12.5 mg Cinacalcet (Sensipar -) 30 mg PO DAILY [facility] Last Admin: 02/06/19 10:23 Dose: 30 mg Furosemide (Lasix Injection -) 40 mg IVPUSH BID@0600,1400 [facility] Last Admin: 02/07/19 05:55 Dose: 40 mg Gabapentin (Neurontin -) 300 mg PO HS [facility] Last Admin: 02/06/19 21:31 Dose: 300 mg Hydralazine HCl (Apresoline -) 50 mg PO TID [facility] Last Admin: 02/07/19 05:55 Dose: 50 mg Insulin Aspart (Novolog Vial Sliding Scale -) 1 vial SQ [facility]; Protocol Last Admin: 02/07/19 06:09 Dose: Not Given Insulin Detemir (Levemir Vial) 18 units SQ [facility] Last Admin: 02/06/19 22:22 Dose: 18 units Isosorbide Mononitrate (Imdur -) 90 mg PO DAILY [facility] Last Admin: 02/06/19 10:34 Dose: 90 mg Levothyroxine Sodium (Synthroid -) 50 mcg PO DAILY@0700 [facility] Last Admin: 02/07/19 06:10 Dose: 50 mcg Non-Formulary Medication (Latanoprost/Pf [Latanoprost 0.005% Eye Drop]) 1 drp OP DAILY [facility] Polyethylene Glycol (Miralax (For Daily Use) -) 17 gm PO DAILY [facility] Last Admin: 02/06/19 10:35 Dose: 17 grams Potassium Chloride (K-Dur -) 20 meq PO BID [facility] Last Admin: 02/06/19 21:31 Dose: 20 meq Ranitidine HCl (Zantac -) 150 mg PO BID [facility] Last Admin: 02/06/19 21:31 Dose: 150 mg Tamsulosin HCl (Flomax -) 0.4 mg PO DAILY@0830 [facility] Last Admin: 02/06/19 09:00 Dose: 0.4 mg - Objective Vital Signs: Vital Signs Temperature 97.9 F 02/07/19 05:56 Pulse Rate 70 02/07/19 05:56 Respiratory Rate 18 02/07/19 05:56 Blood Pressure 130/50 L 02/07/19 05:56 O2 Sat by Pulse Oximetry (%) 100 02/06/19 21:00 Constitutional: Yes: No Distress, Calm Eyes: Yes: Conjunctiva Clear HENT: Yes: Atraumatic Neck: Yes: Supple Cardiovascular: Yes: Regular Rate and Rhythm Respiratory: Yes: Diminished Gastrointestinal: Yes: Soft. No: Tenderness Musculoskeletal: No: Joint Stiffness, Joint Swelling Extremities: No: Cold, Cool, Cyanosis Edema: Yes (pedal bilat ) Integumentary: No: Rash, Venous Stasis Changes Neurological: Yes: WNL, Alert, Oriented ...Motor Strength: WNL Psychiatric: Yes: WNL, Alert, Oriented. No: Agitated, Suicidal Ideation Labs: CBC, BMP 02/06/19 06:51 INR, PTT INR 0.99 (0.83-1.09) 02/05/19 11:45 - ....Imaging Other: Report Reviewed Assessment/Plan The patient is an 83-year-old female, with a past medical history of CHF, DM, HTN, HLD, GERD, and hypothyroidism admitted with acute CHF exac and SOB/[place] telemetry; cardiology f/u IV lasix; f/u labs watch for ARF falls pfx d.w pt and staff
[2019-02-07 08:01] LABS: BLOOD UREA NITROGEN 33.6 mg/dL (7-18); CALCIUM 8.6 mg/dL (8.5-10.1); CREATININE 1.9 mg/dL (0.55-1.3); POTASSIUM 4.1 mmol/L (3.5-5.1)
--- NOTE | 2019-02-07 09:20 | PN ---
Progress Note, Physician History of Present Illness: Reports reproducible left CP tenderness. Pt also c/o worsening pedal edema for the last few days with tenderness. - Current Medication List Current Medications: Active Medications Acetaminophen (Tylenol -) 500 mg PO Q6H PRN PRN Reason: PAIN LEVEL 1-5 Allopurinol (Zyloprim -) 100 mg PO DAILY [facility] Last Admin: 02/06/19 10:35 Dose: 100 mg Aspirin (Ecotrin -) 81 mg PO DAILY [facility] Last Admin: 02/06/19 10:34 Dose: 81 mg Atorvastatin Calcium (Lipitor -) 20 mg PO HS [facility] Last Admin: 02/06/19 21:31 Dose: 20 mg Bisacodyl (Dulcolax -) 5 mg PO ASDIR [facility] Carvedilol (Coreg -) 12.5 mg PO BID [facility] Last Admin: 02/06/19 21:31 Dose: 12.5 mg Cinacalcet (Sensipar -) 30 mg PO DAILY [facility] Last Admin: 02/06/19 10:23 Dose: 30 mg Furosemide (Lasix Injection -) 40 mg IVPUSH BID@0600,1400 [facility] Last Admin: 02/07/19 05:55 Dose: 40 mg Gabapentin (Neurontin -) 300 mg PO HS [facility] Last Admin: 02/06/19 21:31 Dose: 300 mg Hydralazine HCl (Apresoline -) 50 mg PO TID [facility] Last Admin: 02/07/19 05:55 Dose: 50 mg Insulin Aspart (Novolog Vial Sliding Scale -) 1 vial SQ [facility]; Protocol Last Admin: 02/07/19 06:09 Dose: Not Given Insulin Detemir (Levemir Vial) 18 units SQ [facility] Last Admin: 02/06/19 22:22 Dose: 18 units Isosorbide Mononitrate (Imdur -) 90 mg PO DAILY [facility] Last Admin: 02/06/19 10:34 Dose: 90 mg Levothyroxine Sodium (Synthroid -) 50 mcg PO DAILY@0700 [facility] Last Admin: 02/07/19 06:10 Dose: 50 mcg Non-Formulary Medication (Latanoprost/Pf [Latanoprost 0.005% Eye Drop]) 1 drp OP DAILY [facility] Polyethylene Glycol (Miralax (For Daily Use) -) 17 gm PO DAILY [facility] Last Admin: 02/06/19 10:35 Dose: 17 grams Potassium Chloride (K-Dur -) 20 meq PO BID [facility] Last Admin: 02/06/19 21:31 Dose: 20 meq Ranitidine HCl (Zantac -) 150 mg PO BID [facility] Last Admin: 02/06/19 21:31 Dose: 150 mg Tamsulosin HCl (Flomax -) 0.4 mg PO DAILY@0830 [facility] Last Admin: 02/06/19 09:00 Dose: 0.4 mg - Objective Vital Signs: Vital Signs Temperature 97.9 F 02/07/19 05:56 Pulse Rate 70 02/07/19 05:56 Respiratory Rate 18 02/07/19 05:56 Blood Pressure 130/50 L 02/07/19 05:56 O2 Sat by Pulse Oximetry (%) 100 02/06/19 21:00 Constitutional: Yes: No Distress, Calm Neck: Yes: Supple Cardiovascular: Yes: Regular Rate and Rhythm Respiratory: Yes: Regular, CTA Bilaterally Gastrointestinal: Yes: Normal Bowel Sounds, Soft Edema: Yes Edema: LLE: 1+, RLE: Trace Labs: CBC, BMP 02/06/19 06:51 02/07/19 05:42 INR, PTT INR 0.99 (0.83-1.09) 02/05/19 11:45 Problem List - Problems (1) Chest pain Code(s): R07.9 - CHEST PAIN, UNSPECIFIED Qualifiers: Chest pain type: unspecified Qualified Code(s): R07.9 - Chest pain, unspecified (2) Hypertension Code(s): I10 - ESSENTIAL (PRIMARY) HYPERTENSION Qualifiers: Hypertension type: unspecified Qualified Code(s): I10 - Essential (primary ) hypertension (3) Anemia Code(s): D64.9 - ANEMIA, UNSPECIFIED (4) Bilateral lower extremity edema Code(s): R60.0 - LOCALIZED EDEMA (5) Cerebellar infarct Code(s): I63.9 - CEREBRAL INFARCTION, UNSPECIFIED (6) Cervical spondylosis with myelopathy and radiculopathy Code(s): M47.12 - OTHER SPONDYLOSIS WITH MYELOPATHY, CERVICAL REGION; M47.22 - OTHER SPONDYLOSIS WITH RADICULOPATHY, CERVICAL REGION (7) Non-occlusive coronary artery disease Code(s): I25.10 - ATHSCL HEART DISEASE OF [place] CORONARY ARTERY W/O ANG PCTRS (8) Diabetes mellitus with diabetic cardiomyopathy Code(s): E11.59 - TYPE 2 DIABETES MELLITUS WITH OTH CIRCULATORY COMPLICATIONS; I43 - CARDIOMYOPATHY IN DISEASES CLASSIFIED ELSEWHERE (9) Endothelial dysfunction of coronary artery Code(s): I99.8 - OTHER DISORDER OF CIRCULATORY SYSTEM (10) Hyperlipidemia Code(s): E78.5 - HYPERLIPIDEMIA, UNSPECIFIED Qualifiers: Hyperlipidemia type: pure hypercholesterolemia Qualified Code(s): E78.00 - Pure hypercholesterolemia, unspecified; E78.0 - Pure hypercholesterolemia (11) Hypothyroidism Code(s): E03.9 - HYPOTHYROIDISM, UNSPECIFIED Qualifiers: Hypothyroidism type: unspecified Qualified Code(s): E03.9 - Hypothyroidism , unspecified (12) Acute on chronic diastolic congestive heart failure Code(s): I50.33 - ACUTE ON CHRONIC DIASTOLIC (CONGESTIVE) HEART FAILURE (13) Gout flare Code(s): M10.9 - GOUT, UNSPECIFIED Assessment/Plan Prior cardiac catheterization revealed normal LAD, 30% mild LCX and 60% mid RCA stenosis. Patient was advised medical therapy. Last echocardiography (11/08/17) revealed normal LV systolic function, moderate LVH, trace to mild MR. 1. Tender pedal edema c/w gouty arthopathy with diuresis 2. Chronic LV diastolic failure 3. Atypical chest wall pain with reproducibility 4. CAD - non-obstructive, angina pectoris 5. HTN 6. Hypercholesterolemia 7. Type 2 DM 8. Hypothyroidism 9. CKD 10. H/o Hypovolemic hyponatremia and hypokalemia from diuretics and poor oral intake resolved 11. Spinal stenosis, cervical radiculopathy 12. Anemia PLAN: 1. Resume Lasix 100 po bid with monitor diuretic response, renal fxn and electrolytes, ruled out for [place] 2. Continue ASA 81 qd, Carvedilol 12.5 mg BID, Lipitor 20 mg QHS, Imdur 90 mg QD and Hydralazine 50 mg TID as tolerated 3. Emphasized importance diet and medication compliance 4. Trial of colchicine 0.6 bid +/- prednisone with GI protection
[2019-02-07] MEDS: CINACALCET HCL 30 MG TAB (FP) PO SCH (09:57)
[2019-02-07] MEDS: ASPIRIN COATED 81 MG TABLET.EC PO SCH (09:57)
[2019-02-07] MEDS: RANITIDINE HCL 150 MG TABLET (FP) PO SCH ×2 (09:58→21:45)
[2019-02-07] MEDS: ISOSORBIDE MONONITRATE 30 MG TAB.SR.24H (FP) PO SCH (09:58)
[2019-02-07] MEDS: TAMSULOSIN HCL 0.4 MG CAP PO SCH (09:58)
[2019-02-07] MEDS: ALLOPURINOL 100 MG TABLET (FP) PO SCH (09:58)
[2019-02-07] MEDS: POTASSIUM CHLORIDE TABS 20 MEQ TABLET.ER (FP) PO SCH ×2 (09:58→21:45)
[2019-02-07] MEDS: CARVEDILOL 12.5 MG TABLET (FP) PO SCH ×2 (09:58→21:46)
[2019-02-07] MEDS: POLYETHYLENE GLYCOL 3350 119 GM BTL PO SCH (10:01)
[2019-02-07] MEDS: COLCHICINE 0.6 MG CAP PO SCH ×2 (13:04→21:45)
[2019-02-07] MEDS: ATORVASTATIN CA 20 MG TABLET (FP) PO SCH (21:45)
[2019-02-07] MEDS: GABAPENTIN 300 MG CAPSULE (FP) PO SCH (21:49)
[2019-02-07] MEDS: INSULIN (LEVEMIR) 100 UNITS/ML UNITS SQ SCH (21:53)
[2019-02-08] MEDS: hydrALAZINE HCL 50 MG TABLET (FP) PO SCH ×3 (06:40→21:29)
[2019-02-08] MEDS: LEVOTHYROXINE NA 50 MCG TABLET (FP) PO SCH (06:40)
[2019-02-08] MEDS: INSULIN SLIDING SCALE (NOVOLOG) 1 VIAL SQ SCH ×4 (06:43→21:30)
--- NOTE | 2019-02-08 08:49 | PN ---
Progress Note, Physician Chief Complaint: OOB to chair; less pedal edema;no CP/SOB but gets tired easily. - Current Medication List Current Medications: Active Medications Acetaminophen (Tylenol -) 500 mg PO Q6H PRN PRN Reason: PAIN LEVEL 1-5 Last Admin: 02/07/19 10:11 Dose: 500 mg Allopurinol (Zyloprim -) 100 mg PO DAILY [facility] Last Admin: 02/07/19 09:58 Dose: 100 mg Aspirin (Ecotrin -) 81 mg PO DAILY [facility] Last Admin: 02/07/19 09:57 Dose: 81 mg Atorvastatin Calcium (Lipitor -) 20 mg PO HS [facility] Last Admin: 02/07/19 21:45 Dose: 20 mg Bisacodyl (Dulcolax -) 5 mg PO ASDIR [facility] Carvedilol (Coreg -) 12.5 mg PO BID [facility] Last Admin: 02/07/19 21:46 Dose: 12.5 mg Cinacalcet (Sensipar -) 30 mg PO DAILY [facility] Last Admin: 02/07/19 09:57 Dose: 30 mg Colchicine (Colcrys) 0.6 mg PO BID [facility] Last Admin: 02/07/19 21:45 Dose: 0.6 mg Furosemide (Lasix -) 100 mg PO BID@0600,1400 [facility] Gabapentin (Neurontin -) 300 mg PO [facility] Last Admin: 02/07/19 21:49 Dose: 300 mg Hydralazine HCl (Apresoline -) 50 mg PO TID [facility] Last Admin: 02/08/19 06:40 Dose: 50 mg Insulin Aspart (Novolog Vial Sliding Scale -) 1 vial SQ [facility]; Protocol Last Admin: 02/08/19 06:43 Dose: Not Given Insulin Detemir (Levemir Vial) 18 units SQ [facility] Last Admin: 02/07/19 21:53 Dose: 18 units Isosorbide Mononitrate (Imdur -) 90 mg PO DAILY [facility] Last Admin: 02/07/19 09:58 Dose: 90 mg Levothyroxine Sodium (Synthroid -) 50 mcg PO DAILY@0700 [facility] Last Admin: 02/08/19 06:40 Dose: 50 mcg Non-Formulary Medication (Latanoprost/Pf [Latanoprost 0.005% Eye Drop]) 1 drp OP DAILY [facility] Polyethylene Glycol (Miralax (For Daily Use) -) 17 gm PO DAILY [facility] Last Admin: 02/07/19 10:01 Dose: Not Given Potassium Chloride (K-Dur -) 20 meq PO BID [facility] Last Admin: 02/07/19 21:45 Dose: 20 meq Ranitidine HCl (Zantac -) 150 mg PO BID [facility] Last Admin: 02/07/19 21:45 Dose: 150 mg Tamsulosin HCl (Flomax -) 0.4 mg PO DAILY@0830 [facility] Last Admin: 02/07/19 09:58 Dose: 0.4 mg - Objective Vital Signs: Vital Signs Temperature 98 F 02/08/19 06:20 Pulse Rate 63 02/08/19 06:20 Respiratory Rate 20 02/08/19 08:34 Blood Pressure 114/48 L 02/08/19 06:20 O2 Sat by Pulse Oximetry (%) 98 02/08/19 08:34 Constitutional: Yes: No Distress, Calm Eyes: Yes: Conjunctiva Clear HENT: Yes: Atraumatic Neck: Yes: Supple Cardiovascular: Yes: Regular Rate and Rhythm Respiratory: Yes: Diminished Gastrointestinal: Yes: Soft. No: Tenderness Genitourinary: No: Hematuria Musculoskeletal: No: Joint Stiffness, Joint Swelling Extremities: No: Cold, Cool Edema: Yes (pedal bilat) Integumentary: No: Rash, Venous Stasis Changes Neurological: Yes: WNL, Alert, Oriented ...Motor Strength: WNL Psychiatric: Yes: WNL, Alert, Oriented. No: Agitated, Suicidal Ideation Labs: CBC, BMP 02/06/19 06:51 02/07/19 05:42 INR, PTT INR 0.99 (0.83-1.09) 02/05/19 11:45 - ....Imaging Other: Report Reviewed Assessment/Plan The patient is an 83-year-old female, with a past medical history of CHF, DM, HTN, HLD, GERD, and hypothyroidism admitted with acute CHF exac and SOB/[place] telemetry; cardiology f/u IV lasix; f/u labs watch for ARF falls pfx d.w pt and staff
[2019-02-08] MEDS: ISOSORBIDE MONONITRATE 30 MG TAB.SR.24H (FP) PO SCH (09:57)
[2019-02-08] MEDS: TAMSULOSIN HCL 0.4 MG CAP PO SCH (09:57)
[2019-02-08] MEDS: COLCHICINE 0.6 MG CAP PO SCH ×2 (09:58→21:29)
[2019-02-08] MEDS: POTASSIUM CHLORIDE TABS 20 MEQ TABLET.ER (FP) PO SCH ×2 (09:59→21:29)
[2019-02-08] MEDS: RANITIDINE HCL 150 MG TABLET (FP) PO SCH ×2 (09:59→21:29)
[2019-02-08] MEDS: CARVEDILOL 12.5 MG TABLET (FP) PO SCH ×2 (09:59→21:29)
[2019-02-08] MEDS: ALLOPURINOL 100 MG TABLET (FP) PO SCH (09:59)
[2019-02-08] MEDS: CINACALCET HCL 30 MG TAB (FP) PO SCH (10:00)
[2019-02-08] MEDS: ASPIRIN COATED 81 MG TABLET.EC PO SCH (10:02)
[2019-02-08] MEDS: POLYETHYLENE GLYCOL 3350 119 GM BTL PO SCH ×2 (10:03→10:06)
--- NOTE | 2019-02-08 10:53 | PN ---
Progress Note, Physician History of Present Illness: Left tender pedal edema slightly improved. - Current Medication List Current Medications: Active Medications Acetaminophen (Tylenol -) 500 mg PO Q6H PRN PRN Reason: PAIN LEVEL 1-5 Last Admin: 02/07/19 10:11 Dose: 500 mg Allopurinol (Zyloprim -) 100 mg PO DAILY [facility] Last Admin: 02/08/19 09:59 Dose: 100 mg Aspirin (Ecotrin -) 81 mg PO DAILY [facility] Last Admin: 02/08/19 10:02 Dose: 81 mg Atorvastatin Calcium (Lipitor -) 20 mg PO HS [facility] Last Admin: 02/07/19 21:45 Dose: 20 mg Bisacodyl (Dulcolax -) 5 mg PO ASDIR [facility] Carvedilol (Coreg -) 12.5 mg PO BID [facility] Last Admin: 02/08/19 09:59 Dose: 12.5 mg Cinacalcet (Sensipar -) 30 mg PO DAILY [facility] Last Admin: 02/08/19 10:00 Dose: 30 mg Colchicine (Colcrys) 0.6 mg PO BID [facility] Last Admin: 02/08/19 09:58 Dose: 0.6 mg Furosemide (Lasix -) 100 mg PO BID@0600,1400 [facility] Gabapentin (Neurontin -) 300 mg PO HS [facility] Last Admin: 02/07/19 21:49 Dose: 300 mg Hydralazine HCl (Apresoline -) 50 mg PO TID [facility] Last Admin: 02/08/19 06:40 Dose: 50 mg Insulin Aspart (Novolog Vial Sliding Scale -) 1 vial SQ [facility]; Protocol Last Admin: 02/08/19 06:43 Dose: Not Given Insulin Detemir (Levemir Vial) 18 units SQ [facility] Last Admin: 02/07/19 21:53 Dose: 18 units Isosorbide Mononitrate (Imdur -) 90 mg PO DAILY [facility] Last Admin: 02/08/19 09:57 Dose: 90 mg Levothyroxine Sodium (Synthroid -) 50 mcg PO DAILY@0700 [facility] Last Admin: 02/08/19 06:40 Dose: 50 mcg Non-Formulary Medication (Latanoprost/Pf [Latanoprost 0.005% Eye Drop]) 1 drp OP DAILY [facility] Polyethylene Glycol (Miralax (For Daily Use) -) 17 gm PO DAILY [facility] Last Admin: 02/08/19 10:06 Dose: Not Given Potassium Chloride (K-Dur -) 20 meq PO BID [facility] Last Admin: 02/08/19 09:59 Dose: 20 meq Ranitidine HCl (Zantac -) 150 mg PO BID [facility] Last Admin: 02/08/19 09:59 Dose: 150 mg Tamsulosin HCl (Flomax -) 0.4 mg PO DAILY@0830 [facility] Last Admin: 02/08/19 09:57 Dose: 0.4 mg - Objective Vital Signs: Vital Signs Temperature 97.9 F 02/08/19 10:00 Pulse Rate 72 02/08/19 10:00 Respiratory Rate 18 02/08/19 10:00 Blood Pressure 118/43 L 02/08/19 10:00 O2 Sat by Pulse Oximetry (%) 98 02/08/19 08:34 Constitutional: Yes: No Distress, Calm Neck: Yes: Supple Cardiovascular: Yes: Regular Rate and Rhythm Respiratory: Yes: Regular, Diminished Gastrointestinal: Yes: Normal Bowel Sounds, Soft, Abdomen, Obese Edema: Yes Labs: CBC, BMP 02/06/19 06:51 02/07/19 05:42 INR, PTT INR 0.99 (0.83-1.09) 02/05/19 11:45 Problem List - Problems (1) Chest pain Code(s): R07.9 - CHEST PAIN, UNSPECIFIED Qualifiers: Chest pain type: unspecified Qualified Code(s): R07.9 - Chest pain, unspecified (2) Hypertension Code(s): I10 - ESSENTIAL (PRIMARY) HYPERTENSION Qualifiers: Hypertension type: unspecified Qualified Code(s): I10 - Essential (primary ) hypertension (3) Anemia Code(s): D64.9 - ANEMIA, UNSPECIFIED (4) Bilateral lower extremity edema Code(s): R60.0 - LOCALIZED EDEMA (5) Cerebellar infarct Code(s): I63.9 - CEREBRAL INFARCTION, UNSPECIFIED (6) Cervical spondylosis with myelopathy and radiculopathy Code(s): M47.12 - OTHER SPONDYLOSIS WITH MYELOPATHY, CERVICAL REGION; M47.22 - OTHER SPONDYLOSIS WITH RADICULOPATHY, CERVICAL REGION (7) Non-occlusive coronary artery disease Code(s): I25.10 - ATHSCL HEART DISEASE OF [place] CORONARY ARTERY W/O ANG PCTRS (8) Diabetes mellitus with diabetic cardiomyopathy Code(s): E11.59 - TYPE 2 DIABETES MELLITUS WITH OTH CIRCULATORY COMPLICATIONS; I43 - CARDIOMYOPATHY IN DISEASES CLASSIFIED ELSEWHERE (9) Endothelial dysfunction of coronary artery Code(s): I99.8 - OTHER DISORDER OF CIRCULATORY SYSTEM (10) Hyperlipidemia Code(s): E78.5 - HYPERLIPIDEMIA, UNSPECIFIED Qualifiers: Hyperlipidemia type: pure hypercholesterolemia Qualified Code(s): E78.00 - Pure hypercholesterolemia, unspecified; E78.0 - Pure hypercholesterolemia (11) Hypothyroidism Code(s): E03.9 - HYPOTHYROIDISM, UNSPECIFIED Qualifiers: Hypothyroidism type: unspecified Qualified Code(s): E03.9 - Hypothyroidism , unspecified (12) Acute on chronic diastolic congestive heart failure Code(s): I50.33 - ACUTE ON CHRONIC DIASTOLIC (CONGESTIVE) HEART FAILURE (13) Gout flare Code(s): M10.9 - GOUT, UNSPECIFIED Assessment/Plan Prior cardiac catheterization revealed normal LAD, 30% mild LCX and 60% mid RCA stenosis. Patient was advised medical therapy. Last echocardiography (11/08/17) revealed normal LV systolic function, moderate LVH, trace to mild MR. 1. Tender pedal edema c/w gouty arthopathy with diuresis 2. Chronic LV diastolic failure 3. Atypical chest wall pain with reproducibility 4. CAD - non-obstructive, angina pectoris 5. HTN 6. Hypercholesterolemia 7. Type 2 DM 8. Hypothyroidism 9. CKD 10. H/o Hypovolemic hyponatremia and hypokalemia from diuretics and poor oral intake resolved 11. Spinal stenosis, cervical radiculopathy 12. Anemia PLAN: 1. Resume Lasix 100 po bid with monitor diuretic response, renal fxn and electrolytes, ruled out for IL 2. Continue ASA 81 qd, Carvedilol 12.5 mg BID, Lipitor 20 mg QHS, Imdur 90 mg QD and Hydralazine 50 mg TID as tolerated 3. Emphasized importance diet and medication compliance 4. Trial of colchicine 0.6 bid +/- prednisone with GI protection
[2019-02-08] MEDS: FUROSEMIDE 40 MG TABLET (FP) PO SCH (14:00)
[2019-02-08] MEDS: ATORVASTATIN CA 20 MG TABLET (FP) PO SCH (21:29)
[2019-02-08] MEDS: INSULIN (LEVEMIR) 100 UNITS/ML UNITS SQ SCH (21:29)
[2019-02-08] MEDS: GABAPENTIN 300 MG CAPSULE (FP) PO SCH (21:29)
[2019-02-09] MEDS: FUROSEMIDE 40 MG TABLET (FP) PO SCH ×2 (05:55→15:10)
[2019-02-09] MEDS: hydrALAZINE HCL 50 MG TABLET (FP) PO SCH ×2 (05:56→15:11)
[2019-02-09] MEDS: LEVOTHYROXINE NA 50 MCG TABLET (FP) PO SCH (06:05)
[2019-02-09] MEDS: INSULIN SLIDING SCALE (NOVOLOG) 1 VIAL SQ SCH ×2 (06:05→12:36)
[2019-02-09 07:04] LABS: ALBUMIN 3.2 g/dl (3.4-5.0); BILIRUBIN,TOTAL 0.6 mg/dL (0.2-1); BLOOD UREA NITROGEN 41.6 mg/dL (7-18); CALCIUM 8.4 mg/dL (8.5-10.1); CREATININE 2.1 mg/dL (0.55-1.3); POTASSIUM 4.5 mmol/L (3.5-5.1); TOT PROT 6.5 g/dl (6.4-8.2)
[2019-02-09 07:27] LABS: BASO % 0.8 % (0-2.0); EOS % 10.7 % (0-4.5); HEMATOCRIT 30.5 % (32.4-45.2); HEMOGLOBIN 10.2 GM/dL (10.7-15.3); LYMPH % 29.1 % (8-40); MCHC 33.5 g/dl (32.0-36.0); MEAN CELL VOLUME 83.8 fl (80-96); MEAN PLT VOLUME 7.7 fl (7.5-11.1); MONO % 13.8 % (3.8-10.2); NEUT % 45.6 % (42.8-82.8); PLATELET COUNT 234 K/MM3 (134-434); RBC 3.64 M/mm3 (3.60-5.2); RDW 19.1 % (11.6-15.6); WHITE BLOOD COUNT 7.2 K/mm3 (4.0-10.0)
[2019-02-09] MEDS ORDERED: PT OWN MED DRAWER 7, Y5N ONE (10:37)
[2019-02-09] MEDS: POTASSIUM CHLORIDE TABS 20 MEQ TABLET.ER (FP) PO SCH (11:07)
[2019-02-09] MEDS: TAMSULOSIN HCL 0.4 MG CAP PO SCH (11:07)
[2019-02-09] MEDS: ALLOPURINOL 100 MG TABLET (FP) PO SCH (11:07)
[2019-02-09] MEDS: COLCHICINE 0.6 MG CAP PO SCH (11:08)
[2019-02-09] MEDS: ISOSORBIDE MONONITRATE 30 MG TAB.SR.24H (FP) PO SCH (11:08)
[2019-02-09] MEDS: ASPIRIN COATED 81 MG TABLET.EC PO SCH (11:08)
[2019-02-09] MEDS: POLYETHYLENE GLYCOL 3350 119 GM BTL PO SCH (11:08)
[2019-02-09] MEDS: CINACALCET HCL 30 MG TAB (FP) PO SCH (11:08)
[2019-02-09] MEDS: RANITIDINE HCL 150 MG TABLET (FP) PO SCH (11:09)
[2019-02-09] MEDS: CARVEDILOL 12.5 MG TABLET (FP) PO SCH (11:09)
--- NOTE | 2019-02-09 12:01 | DS ---
Physical Examination Vital Signs: Vital Signs Temperature 97.8 F 02/09/19 04:05 Pulse Rate 74 02/09/19 09:29 Respiratory Rate 20 02/09/19 09:29 Blood Pressure 125/56 L 02/09/19 09:29 O2 Sat by Pulse Oximetry (%) 96 02/08/19 21:00 Findings/Remarks: feeling better; on po lasix per cardio; diuresed; no CP/SOB; legs edema much improved Ok to DC home d/w cardio dr Varela d/w pt and daughter ADA diet, LS d/w pt and daughter - f/u and meds as advised has home O2 nc Constitutional: Yes: No Distress, Calm Eyes: Yes: Conjunctiva Clear HENT: Yes: Atraumatic Neck: Yes: Supple Cardiovascular: Yes: Regular Rate and Rhythm Respiratory: Yes: CTA Bilaterally Gastrointestinal: Yes: Soft. No: Tenderness Renal/: No: Hematuria Musculoskeletal: No: Joint Stiffness, Joint Swelling Extremities: No: Cold, Cool Edema: Yes (trace pedal) Integumentary: No: Rash, Venous Stasis Changes Neurological: Yes: WNL, Alert, Oriented ...Motor Strength: WNL Psychiatric: Yes: WNL, Alert, Oriented. No: Agitated, Suicidal Ideation Labs: CBC, BMP 02/09/19 05:25 02/09/19 05:25 Discharge Summary Reason For Visit: DM CHEST PAIN CHRONIC KIDNEY DISEASE STAGE III Current Active Problems Chest pain (Acute) Diabetes mellitus (Acute) Gout flare (Acute) Hypertension (Chronic) Procedures: Principal: 83 YOF ASHD CHF CRF anemia DM admitted with CHF exac Other Procedures: IV alsix diuresed; seen by cardiology Hospital Course: improved with above; DC home f.u as advised Condition: Improved - Instructions Diet, Activity, Other Instructions: f/u PCP cardiology in 1-2 weeks pulmonary and renal f/u in 2-4 weeks O2 NC as ordered ADA LS LF diet; legs elevation; check BGMQAM RTER if worse or recurrent c/o Referrals: Kell Sunshine [Staff Physician] - Berlin Arroyo MD [Staff Physician] - Bert Holliday MD [Staff Physician] - Wm Tian MD [Staff Physician] - Disposition: VNS/HOME HEALTH CARE - Home Medications Comprehensive Discharge Medication List: Ambulatory Orders Aspirin Coated [Ecotrin -] 81 mg PO DAILY #30 tablet.ec 07/09/16 Levothyroxine [Synthroid -] 50 mcg PO DAILY #90 tablet 07/09/16 Allopurinol [Zyloprim -] 100 mg PO DAILY 10/02/17 Atorvastatin Ca [Lipitor] 20 mg PO HS 10/02/17 Gabapentin [Neurontin -] 300 mg PO HS 10/02/17 Acetaminophen [Tylenol .Extra-Strength -] 500 mg PO Q6H PRN tablet 11/12/17 Tamsulosin HCl [Flomax -] 0.4 mg PO DAILY@0830 #90 cap.er.24h 11/12/17 Bisacodyl [Bisacodyl -] 5 mg PO ASDIR 11/26/18 Carvedilol [Coreg -] 12.5 mg PO BID 11/26/18 Cinacalcet HCl [Sensipar] 30 mg PO DAILY 11/26/18 Hydralazine HCl 50 mg PO TID 11/26/18 Isosorbide Mononitrate [Imdur -] 90 mg PO DAILY 11/26/18 Latanoprost/Pf [Latanoprost 0.005% Eye Drop] 1 drp OP DAILY 11/26/18 Polyethylene Glycol 3350 [Miralax 119 gm Btl -] 17 gm PO DAILY 11/26/18 Potassium Chloride 20 meq PO BID 11/26/18 Ranitidine HCl [Zantac] 150 mg PO BID 11/26/18 Insulin (Levemir) [Levemir Vial] 18 units SQ HS units 12/08/18 Furosemide 100 mg PO BID 02/05/19 Allopurinol [Zyloprim -] 100 mg PO DAILY tablet 02/09/19 Colchicine [Colcrys] 0.6 mg PO BID cap 02/09/19
[2019-02-09] MEDS ORDERED: INSULIN (NOVOLOG) ASPART 100 UNITS/ML 10ML VIAL ONE (12:34)
--- NOTE | 2019-02-09 13:19 | PN ---
Progress Note (short form) - Note Progress Note: Chief Complaint: Events noted, notes reviewed, dyspnea persists but improved, denies any chest pain History of Present Illness: Seen and examined on telemetry. Events noted, notes reviewed, dyspnea persists but improved, denies any chest pain [facility] & coronary angiography performed 01/04/16 revealed non-obstructive CAD MPI study dated 11/12/2015 revealed No ischemia with normal LV function LVEF 79% Echocardiography dated 11/08/2017 revealed moderate LVH normal LV size and function, MR and TR Medications: Current Medications Acetaminophen (Tylenol -) 500 mg PO Q6H PRN PRN Reason: PAIN LEVEL 1-5 Last Admin: 02/07/19 10:11 Dose: 500 mg Allopurinol (Zyloprim -) 100 mg PO DAILY [facility] Last Admin: 02/09/19 11:07 Dose: 100 mg Aspirin (Ecotrin -) 81 mg PO DAILY [facility] Last Admin: 02/09/19 11:08 Dose: 81 mg Atorvastatin Calcium (Lipitor -) 20 mg PO [facility] Last Admin: 02/08/19 21:29 Dose: 20 mg Bisacodyl (Dulcolax -) 5 mg PO ASDIR [facility] Carvedilol (Coreg -) 12.5 mg PO BID [facility] Last Admin: 02/09/19 11:09 Dose: 12.5 mg Cinacalcet (Sensipar -) 30 mg PO DAILY [facility] Last Admin: 02/09/19 11:08 Dose: 30 mg Colchicine (Colcrys) 0.6 mg PO BID [facility] Last Admin: 02/09/19 11:08 Dose: 0.6 mg Furosemide (Lasix -) 100 mg PO BID@0600,1400 [facility] Last Admin: 02/09/19 05:55 Dose: 100 mg Gabapentin (Neurontin -) 300 mg PO [facility] Last Admin: 02/08/19 21:29 Dose: 300 mg Hydralazine HCl (Apresoline -) 50 mg PO TID [facility] Last Admin: 02/09/19 05:56 Dose: 50 mg Insulin Aspart (Novolog Vial Sliding Scale -) 1 vial SQ [facility]; Protocol Last Admin: 02/09/19 12:36 Dose: 2 units Insulin Detemir (Levemir Vial) 18 units SQ [facility] Last Admin: 02/08/19 21:29 Dose: 18 units Isosorbide Mononitrate (Imdur -) 90 mg PO DAILY [facility] Last Admin: 02/09/19 11:08 Dose: 90 mg Levothyroxine Sodium (Synthroid -) 50 mcg PO DAILY@0700 [facility] Last Admin: 02/09/19 06:05 Dose: 50 mcg Non-Formulary Medication (Latanoprost/Pf [Latanoprost 0.005% Eye Drop]) 1 drp OP DAILY [facility] Polyethylene Glycol (Miralax (For Daily Use) -) 17 gm PO DAILY [facility] Last Admin: 02/09/19 11:08 Dose: 17 grams Potassium Chloride (K-Dur -) 20 meq PO BID [facility] Last Admin: 02/09/19 11:07 Dose: 20 meq Ranitidine HCl (Zantac -) 150 mg PO BID [facility] Last Admin: 02/09/19 11:09 Dose: 150 mg Tamsulosin HCl (Flomax -) 0.4 mg PO DAILY@0830 [facility] Last Admin: 02/09/19 11:07 Dose: 0.4 mg Review of Systems - Review of Systems Constitutional: no symptoms reported Respiratory: denies: Cough or Sputum Production Cardiovascular: as noted above Gastrointestinal: denies Nausea, Vomiting, Diarrhea, Constipation or Abdominal Pain Genitourinary: No symptoms reported Musculoskeletal: Degenerative Joint Disease and Tremors Endocrine: NIDDM and Hypothyroidism Vital Signs: Last Vital Signs Temp Pulse Resp BP Pulse Ox 97.8 F 74 20 125/56 L 96 02/09/19 04:05 02/09/19 09:29 02/09/19 09:29 02/09/19 09:29 02/08/19 21:00 Intake & Output 02/06/19 02/07/19 02/08/19 02/09/19 23:59 23:59 23:59 23:59 Intake Total 660 1500 530 520 Balance 660 1500 530 520 Weight 180 lb 180 lb 3.2 oz 167 lb 6.4 oz 167 lb Constitutional: No Distress, Calm Neck: Supple Negative JVD No Bruit Respiratory: Diminished Breath Sounds at the Bases Cardiovascular: S1 S2 Regular Rate and Rhythm [place] 2/6 CLEMENTE Gastrointestinal: Soft Benign Normal Bowel Sounds Ext: No Edema Labs: CBC, BMP 02/09/19 05:25 02/09/19 05:25 Hepatic Panel Total Bilirubin 0.6 mg/dL (0.2-1) 02/09/19 05:25 AST 24 U/L (15-37) 02/09/19 05:25 ALT 23 U/L (13-61) 02/09/19 05:25 Alkaline Phosphatase 99 U/L (45-117) 02/09/19 05:25 Albumin 3.2 g/dl (3.4-5.0) L 02/09/19 05:25 Assessment/Plan ASSESSMENT: 1. Chest pain syndrome atypical for angina pectoris 2. CAD non-obstructive CAD angina pectoris endothelial dysfunction 3. Diastolic LV dysfunction with chronic LV class I- II NYHA classification LV failure, compensated/euvolemic 4. Aortic valve sclerosis/stenosis mild in severity 5. HTN 6. NIDDM 7. Hypercholesterolemia 8. Hypothyroidism 9. Acute on chronic KD 10. Gouty arthropathy 11. Anemia PLAN: 1. Continue Coreg 2. Ideally should be on ACEI or ARBS pending renal function stabilization/at baseline 3. Continue Imdur 4. Continue Hydralazine 5. Continue Lipitor 6. Continue Lasix with close monitoring of renal function 7. Continue ASA 8. Can be D/C from the cardiovascular point of view and F/U in the office with Dr. Apollo Ortega M.D.
[2019-02-09 15:08] VITALS: BP 103/49; PULSE 58; TEMP 97.3
== END 2019-02-09 15:30 | disposition home health service (06) | DRG 291 ==
LOC: JER 10:55 → JERBED 13:29 → J4W 19:00
PROVIDERS: ADMIT Specialist; ATTEND Specialist
DX: I13.0 Hypertensive heart and chronic kidney disease with heart failure and stage 1 through stage 4 chronic kidney disease, or unspecified chronic kidney disease (principal); I50.33 Acute on chronic diastolic (congestive) heart failure; E87.1 Hypo-osmolality and hyponatremia; M47.12 Other spondylosis with myelopathy, cervical region; N17.9 Acute kidney failure, unspecified; E78.5 Hyperlipidemia, unspecified; I43 Cardiomyopathy in diseases classified elsewhere; E03.9 Hypothyroidism, unspecified; K21.9 Gastro-esophageal reflux disease without esophagitis; E66.8 Other obesity; Z68.30 Body mass index [BMI] 30.0-30.9, adult; I25.119 Atherosclerotic heart disease of native coronary artery with unspecified angina pectoris; K59.09 Other constipation; K57.90 Diverticulosis of intestine, part unspecified, without perforation or abscess without bleeding; R07.9 Chest pain, unspecified; D64.9 Anemia, unspecified; R60.0 Localized edema; M54.12 Radiculopathy, cervical region; M10.00 Idiopathic gout, unspecified site; E78.00 Pure hypercholesterolemia, unspecified; R07.89 Other chest pain; E11.59 Type 2 diabetes mellitus with other circulatory complications; E11.22 Type 2 diabetes mellitus with diabetic chronic kidney disease; N18.3 Chronic kidney disease, stage 3 (moderate)
CPT/HCPCS: 36415; 71045-TC-FY; 76856-TC; 80048; 80053; 82550; 82962; 83690; 83880; 84484; 85025; 85027; 85610; 93005; 93010; 93970-TC; 99284-25

== ENCOUNTER 2019-03-01 11:11 | Emergency (ER) | payer OTHER ==
[2019-03-01 11:28] VITALS: TEMP 97.8; BMI 31.1
[2019-03-01 13:16] LABS: BASO % 0.4 % (0-2.0); EOS % 6.7 % (0-4.5); HEMATOCRIT 30.6 % (32.4-45.2); HEMOGLOBIN 10.1 GM/dL (10.7-15.3); LYMPH % 13.1 % (8-40); MCH 28.5 pg (25.7-33.7); MCHC 33.1 g/dl (32.0-36.0); MEAN CELL VOLUME 86.1 fl (80-96); MONO % 14.1 % (3.8-10.2); NEUT % 65.7 % (42.8-82.8); PLATELET COUNT 182 K/MM3 (134-434); RBC 3.56 M/mm3 (3.60-5.2); RDW 18.3 % (11.6-15.6); WHITE BLOOD COUNT 6.4 K/mm3 (4.0-10.0)
[2019-03-01 13:51] LABS: ALBUMIN 3.5 g/dl (3.4-5.0); BILIRUBIN,TOTAL 0.5 mg/dL (0.2-1); BLOOD UREA NITROGEN 47.6 mg/dL (7-18); CALCIUM 10.3 mg/dL (8.5-10.1); POTASSIUM 3.8 mmol/L (3.5-5.1); TOT PROT 6.4 g/dl (6.4-8.2)
--- NOTE | 2019-03-01 13:54 | EKG ---
Test Reason : Blood Pressure : / mmHG Vent. Rate : 084 BPM Atrial Rate : 084 BPM P-R Int : 154 ms QRS Dur : 082 ms QT Int : 370 ms P-R-T Axes : 046 053 040 degrees QTc Int : 437 ms SINUS RHYTHM WITH PREMATURE ATRIAL COMPLEXES WHEN COMPARED WITH ECG OF 05-FEB-2019 10:58, PREMATURE ATRIAL COMPLEXES ARE NOW PRESENT Confirmed by LAZARO BALLESTEROS MD ([id number]) on 03/01/2019 1:54:05 PM Referred By: Confirmed By:LAZARO BALLESTEROS MD
[2019-03-01 13:57] LABS: EPI CELLS 0.1 /HPF (0-5/HPF); HYALINE CASTS 0 /lpf (0-8); PH,URINE 6.5 (5.0-8.0); URINE APPEARANCE CLEAR; URINE BACTERIA 0.5 /hpf (NEGATIVE); URINE BILIRUBIN NEGATIVE (NEGATIVE); URINE COLOR YELLOW; URINE GLUCOSE (UA) NEGATIVE (NEGATIVE); URINE KETONE NEGATIVE (NEGATIVE); URINE LEUK ESTERASE NEGATIVE (NEGATIVE); URINE NITRITE NEGATIVE (NEGATIVE); URINE PROTEIN NEGATIVE (NEGATIVE); URINE RBC 0 /hpf (0-4); URINE UROBILINOGEN 0.2 mg/dL (0.2-1.0); URINE WBC 0 /hpf (0-5)
--- NOTE | 2019-03-01 15:47 | PDOC ---
Documentation entered by Tiff Peres SCRIBE, acting as scribe for Fercho Smith MD. Fercho Smith MD: This documentation has been prepared by the savannahibeJa Natalie, SCRIBE, under my direction and personally reviewed by me in its entirety. I confirm that the documentation accurately reflects all work, treatment, procedures, and medical decision making performed by me. History of Present Illness - General Chief Complaint: Injury Stated Complaint: FALL Time Seen by Provider: 03/01/19 11:44 History Source: Parent(s) Exam Limitations: No Limitations - History of Present Illness Initial Comments: 03/01/19 12:47 The patient is an 83-year-old female, with a past medical history of CHF, CAD, HTN, HLD, DM, GERD, renal insufficiency (not on dialysis), and hypothyroidism, who presents to the ED with generalized weakness. Daughter is at the bedside and is providing history. She states that yesterday afternoon her mother was getting ready to sit down and eat lunch when she fell backwards. She is unsure whether her mother or the chair slipped. She denies any loss of consciousness. The daughter arrived to her home and was able to get her on to the couch. The patient normally ambulates with a walker and was taking a few steps yesterday. This morning the patient was seated for breakfast and could not lift herself from the chair due to weakness. EMS was called and the patient was brought to the ED for further evaluation. The patient denies any fevers, chills, nausea, vomiting, diarrhea, or abdominal pain. Denies any neck or back pain. Denies any chest pain or shortness of breath. Allergies: NKA PCP: Dr. Jam Sunshine Past History - Past Medical History Allergies/Adverse Reactions: Allergies Allergy/AdvReac Type Severity Reaction Status Date / Time No Known Allergies Allergy Verified 01/24/19 11:09 Home Medications: Ambulatory Orders Aspirin Coated [Ecotrin -] 81 mg PO DAILY #30 tablet.ec 07/09/16 Levothyroxine [Synthroid -] 50 mcg PO DAILY #90 tablet 07/09/16 Allopurinol [Zyloprim -] 100 mg PO DAILY 10/02/17 Atorvastatin Ca [Lipitor] 20 mg PO HS 10/02/17 Gabapentin [Neurontin -] 300 mg PO HS 10/02/17 Acetaminophen [Tylenol .Extra-Strength -] 500 mg PO Q6H PRN tablet 11/12/17 Tamsulosin HCl [Flomax -] 0.4 mg PO DAILY@0830 #90 cap.er.24h 11/12/17 Bisacodyl [Bisacodyl -] 5 mg PO ASDIR 11/26/18 Carvedilol [Coreg -] 12.5 mg PO BID 11/26/18 Cinacalcet HCl [Sensipar] 30 mg PO DAILY 11/26/18 Hydralazine HCl 50 mg PO TID 11/26/18 Isosorbide Mononitrate [Imdur -] 90 mg PO DAILY 11/26/18 Latanoprost/Pf [Latanoprost 0.005% Eye Drop] 1 drp OP DAILY 11/26/18 Polyethylene Glycol 3350 [Miralax 119 gm Btl -] 17 gm PO DAILY 11/26/18 Potassium Chloride 20 meq PO BID 11/26/18 Ranitidine HCl [Zantac] 150 mg PO BID 11/26/18 Insulin (Levemir) [Levemir Vial] 18 units SQ HS units 12/08/18 Furosemide 100 mg PO BID 02/05/19 Allopurinol [Zyloprim -] 100 mg PO DAILY tablet 02/09/19 Colchicine [Colcrys] 0.6 mg PO BID cap 02/09/19 Anemia: No Asthma: No Cancer: No Cardiac Disorders: (CAD,angina) COPD: No CHF: Yes Diabetes: Yes GI Disorders: Yes (GERD.diverticulosis,constipation) Disorders: (renal insuff) HTN: Yes Hypercholesterolemia: Yes Thyroid Disease: Yes (HYPO.) - Surgical History Abdominal Surgery: Yes - Immunization History Immunization Up to Date: Yes - Suicide/Smoking/Psychosocial Hx Smoking Status: No Smoking History: Never smoked Have you smoked in the past 12 months: No Number of Cigarettes Smoked Daily: 0 Hx Alcohol Use: No Drug/Substance Use Hx: No Substance Use Type: None Hx Substance Use Treatment: No Review of Systems - Review of Systems Able to Perform ROS?: Yes Comments:: 03/01/19 12:48 A complete review of 10 out of 10 review of systems is taken and is negative apart from what is previously mentioned below and in the HPI. *Physical Exam - Vital Signs Last Vital Signs Temp Pulse Resp BP Pulse Ox 97.8 F 84 18 187/82 H 99 03/01/19 11:24 03/01/19 11:24 03/01/19 11:24 03/01/19 11:24 03/01/19 11:24 - Physical Exam Comments: 03/01/19 12:49 Vitals: Triage Vital signs reviewed General Appearance: no acute distress, well nourished well developed Head: Atraumatic, normocephalic Neck: Supple;No Nuchal rigidity Chest Wall: Nontender Cardiac: Regular rate and rhythm, no murmurs, no rubs, no gallops, Lungs: Clear to auscultation bilateral, good air movement bilaterally, Abdomen: Soft, nondistended, normal bowel sounds, nontender to palpation MSK: (+)Mild pelvic pain. Extremities: No cyanosis, clubbing, or edema Skin: Warm and dry, no rashes or lesions, no petechiae Neuro: (+)Patient appears weak and was having difficulty sitting up on exam. Psych: normal mood, normal affect ED Treatment Course - LABORATORY CBC & Chemistry Diagram: 03/01/19 13:00 03/01/19 12:21 - ADDITIONAL ORDERS Additional order review: Laboratory Results 03/01/19 03/01/19 13:33 12:21 Sodium 133 L Potassium 3.8 Chloride 95 L Carbon Dioxide 33 H Anion Gap 5 L BUN 47.6 H Creatinine 2.0 H Est GFR (CKD-EPI)AfAm 26.10 Est GFR (CKD-EPI)NonAf 22.52 Random Glucose 256 H Calcium 10.3 H Total Bilirubin 0.5 AST 88 H ALT 76 H Alkaline Phosphatase 119 H Total Protein 6.4 Albumin 3.5 Urine Color Yellow Urine Appearance Clear Urine pH 6.5 Ur Specific [place] 1.008 L Urine Protein Negative Urine Glucose (UA) Negative Urine Ketones Negative Urine Blood Trace Urine Nitrite Negative Urine Bilirubin Negative Urine Urobilinogen 0.2 Ur Leukocyte Esterase Negative Urine WBC (Auto) 0 Urine RBC (Auto) 0 Urine Casts (Auto) 0 U Epithel Cells (Auto) 0.1 Urine Bacteria (Auto) 0.5 03/01/19 13:00 RBC 3.56 L MCV 86.1 MCHC 33.1 RDW 18.3 H MPV 8.0 Neutrophils % 65.7 D Lymphocytes % 13.1 D Monocytes % 14.1 H Eosinophils % 6.7 H Basophils % 0.4 - RADIOLOGY Radiology Studies Ordered: Category Date Time Status CERVICAL SPINE CT W/O CONTR [CT] Stat CT Scan 03/01/19 12:[address] WITHOUT CONTRAST [CT] Stat CT Scan 03/01/19 12:17 Completed CXRPORT [CHEST X-RAY PORTABLE*] [RAD] Stat Radiology 03/01/19 12:17 Completed HIP & PELVIS-RIGHT [RAD] Stat Radiology 03/01/19 14:19 Taken HIP-LEFT [RAD] Stat Radiology 03/01/19 14:19 Ordered Medical Decision Making - Medical Decision Making 03/01/19 15:47 Status post fall off chair yesterday is x-rays negative patient able to ambulate and walk with assistance she normally walks with a walker case discussed at length with daughter daughter feels that patient is at her baseline mental status baseline inability to ambulate feels comfortable with patient returning home We'll discharge patient home to care of daughter and there were return to the emergency department for any concerns or any severe worsening symptoms or follow up with her primary care provider next week Findings, the need for follow-up and strict return instructions discussed with family. *DC/Admit/Observation/Transfer Diagnosis at time of Disposition: Fall Qualifiers: Encounter type: initial encounter Qualified Code(s): W19.XXXA - Unspecified fall, initial encounter - Discharge Dispostion Disposition: HOME Condition at time of disposition: Fair Decision to Admit order: No - Referrals Referrals: Jam Sunshine MD [Primary Care Provider] - - Patient Instructions Printed Discharge Instructions: How to Prevent Falls Additional Instructions: Follow-up with your primary care provider next week. Return to the emergency department for any severe worsening symptoms or for any concerns - Post Discharge Activity
[2019-03-01 16:25] VITALS: BP 179/64; PULSE 60
== END 2019-03-01 16:43 | disposition home or self-care (01) ==
LOC: JER 11:11
DX: Z04.3 Encounter for examination and observation following other accident (principal); W18.39XA Other fall on same level, initial encounter; Y93.89 Activity, other specified; Y92.009 Unspecified place in unspecified non-institutional (private) residence as the place of occurrence of the external cause; E03.9 Hypothyroidism, unspecified; I10 Essential (primary) hypertension; E78.00 Pure hypercholesterolemia, unspecified; E11.9 Type 2 diabetes mellitus without complications; K21.9 Gastro-esophageal reflux disease without esophagitis
CPT/HCPCS: 36415; 70450-TC; 71045-TC-FY; 72125-TC; 73523-TC-FY; 80053; 81003; 85025; 87086; 93005; 93010; 99283-25

== ENCOUNTER 2019-03-07 12:11 | Inpatient (IN) | payer OTHER ==
--- NOTE | 2019-03-07 12:28 | PDOC ---
History of Present Illness <Elyssa Clinton - Last Filed: 03/07/19 17:55> - General History Source: Patient, Family (daughter) Exam Limitations: No Limitations - History of Present Illness Initial Comments: 03/07/19 12:52 Rita Flores is a 83yF w PMHx HTN, HLD, CHF, CKD not on dialysis, hypothyroidism presenting with head injury s/p fall. 3am this morning, pt fell down, hit R side of head ad L foot while moving between recliners helped by at home. No LOC, vomiting, or change in vision. Not on anticoagulants. Currently has mild R sided headache, mild pain on dorsal L foot, mild pain posterior R shoulder. Was seen in ED 7d ago for fall, negative workup. In addition, has been having 6 loose stools/day for the last 3d, associated diffuse abdominal discomfort. In addition, has had progressively worsening swelling of jose LE and abdomen for last week. Baseline orthopnea. On 2L NC PRN. Denies fever, cough, nausea/vomiting, chest pain, urinary changes. <Reji Daigle - Last Filed: 03/07/19 17:59> - General Chief Complaint: Injury Stated Complaint: FALL Time Seen by Provider: 03/07/19 12:28 Past History <Elyssa Clinton - Last Filed: 03/07/19 17:55> - Past Medical History Anemia: No Asthma: No Cancer: No Cardiac Disorders: (CAD,angina) COPD: No CHF: Yes Diabetes: Yes GI Disorders: Yes (GERD.diverticulosis,constipation) Disorders: (renal insuff) HTN: Yes Hypercholesterolemia: Yes Thyroid Disease: Yes (HYPO.) - Surgical History Abdominal Surgery: Yes - Immunization History Immunization Up to Date: Yes - Suicide/Smoking/Psychosocial Hx Smoking Status: No Smoking History: Never smoked Have you smoked in the past 12 months: No Number of Cigarettes Smoked Daily: 0 Hx Alcohol Use: No Drug/Substance Use Hx: No Substance Use Type: None Hx Substance Use Treatment: No <Reji Daigle - Last Filed: 03/07/19 17:59> - Past Medical History Allergies/Adverse Reactions: Allergies Allergy/AdvReac Type Severity Reaction Status Date / Time No Known Allergies Allergy Verified 03/07/19 12:29 Home Medications: Ambulatory Orders Aspirin Coated [Ecotrin -] 81 mg PO DAILY #30 tablet.ec 07/09/16 Levothyroxine [Synthroid -] 50 mcg PO DAILY #90 tablet 07/09/16 Allopurinol [Zyloprim -] 100 mg PO DAILY 10/02/17 Atorvastatin Ca [Lipitor] 20 mg PO HS 10/02/17 Gabapentin [Neurontin -] 300 mg PO HS 10/02/17 Acetaminophen [Tylenol .Extra-Strength -] 500 mg PO Q6H PRN tablet 11/12/17 Tamsulosin HCl [Flomax -] 0.4 mg PO DAILY@0830 #90 cap.er.24h 11/12/17 Bisacodyl [Bisacodyl -] 5 mg PO ASDIR 11/26/18 Carvedilol [Coreg -] 12.5 mg PO BID 11/26/18 Cinacalcet HCl [Sensipar] 30 mg PO DAILY 11/26/18 Hydralazine HCl 50 mg PO TID 11/26/18 Isosorbide Mononitrate [Imdur -] 90 mg PO DAILY 11/26/18 Latanoprost/Pf [Latanoprost 0.005% Eye Drop] 1 drp OP DAILY 11/26/18 Polyethylene Glycol 3350 [Miralax 119 gm Btl -] 17 gm PO DAILY 11/26/18 Potassium Chloride 20 meq PO BID 11/26/18 Ranitidine HCl [Zantac] 150 mg PO BID 11/26/18 Insulin (Levemir) [Levemir Vial] 18 units SQ HS units 12/08/18 Furosemide 100 mg PO BID 02/05/19 Colchicine [Colcrys] 0.6 mg PO BID cap 02/09/19 Review of Systems - Review of Systems Constitutional: No: Chills, Fever HEENTM: No: Eye Pain, Ear Pain, Nose Pain, Hearing Loss, Throat Pain Respiratory: No: Cough, Shortness of Breath Cardiac (ROS): Yes: Edema (jose LE, abdomen). No: Chest Pain, Palpitations, Syncope ABD/GI: Yes: Diarrhea. No: Abdominal Distended, Constipated, Nausea, Vomiting : Yes: Urgency (baseline). No: Burning, Dysuria, Discharge, Frequency, Flank Pain, Hematuria Musculoskeletal: No: Back Pain, Joint Pain, Joint Swelling, Muscle Pain Integumentary: No: Bruising, Dryness, Erythema Neurological: Yes: Headache (R sided). No: Numbness, Paresthesia, Seizure, Tingling, Tremors Psychiatric: No: Anxiety, Depression Endocrine: No: Excessive Sweating, Flushing, Intolerance to Cold, Intolerance to Heat <Reji Daigle - Last Filed: 03/07/19 17:59> *Physical Exam - Vital Signs Last Vital Signs Temp Pulse Resp BP Pulse Ox 97.4 F L 79 16 150/62 100 03/07/19 12:15 03/07/19 12:15 03/07/19 12:15 03/07/19 12:15 03/07/19 12:15 <Elyssa Clinton - Last Filed: 03/07/19 17:55> - Physical Exam General Appearance: Yes: Nourished, Appropriately Dressed. No: Apparent Distress HEENT: positive: EOMI, Normal Voice. negative: COLEEN (2mm L pupil, 3mm R pupil, both reactive to light), Scleral Icterus (R), Scleral Icterus (L), Nasal Congestion, Rhinorrhea, Lesions Neck: positive: Supple. negative: Tender, Rigid Respiratory/Chest: positive: Lungs Clear, Normal Breath Sounds. negative: Chest Tender, Respiratory Distress (on 2L NC), Crackles, Rales, Rhonchi, Stridor , Wheezing Cardiovascular: positive: Regular Rate, S1, S2, Murmur (systolic), Irregular. negative: Edema Gastrointestinal/Abdominal: positive: Normal Bowel Sounds, Soft, Distended. negative: Organomegaly, Guarding, Rebound, Hernia, Mass Extremity: positive: Normal Capillary Refill (2 sec cap refill), Tender (jose feet), Swelling (3+ edema, bilateral to midshaft tib/fib) Integumentary: positive: Ecchymosis (5cm ecchymosis dorsal aspect L foot). negative: Rash Neurologic: positive: date pitter II-XII NML intact, Fully Oriented, Alert, Normal Mood/ Affect, Normal Response, Responsive (normal sensation to touch jose). negative: Motor Strength 5/5 (4/5 upper extremities, 3/5 jose hip flexion), Numbness, Confused, Disoriented <Reji Daigle - Last Filed: 03/07/19 17:59> ED Treatment Course - LABORATORY CBC & Chemistry Diagram: 03/07/19 13:12 03/07/19 13:12 - ADDITIONAL ORDERS Additional order review: Laboratory Results 03/07/19 03/07/19 13:12 13:12 Sodium 132 L Potassium 4.6 Chloride 96 L Carbon Dioxide 29 Anion Gap 7 L BUN 66.7 H Creatinine 2.2 H Est GFR (CKD-EPI)AfAm 23.26 Est GFR (CKD-EPI)NonAf 20.07 Random Glucose 317 H Calcium 10.1 Total Bilirubin 0.6 AST 97 H ALT 72 H Alkaline Phosphatase 129 H Creatine Kinase 723 H Creatine Kinase Index 0.8 CK-MB (CK-2) 6.5 H Troponin I 0.03 B-Natriuretic Peptide 414.2 Total Protein 6.5 Albumin 3.2 L 03/07/19 13:12 RBC 3.58 L MCV 86.5 MCHC 32.9 RDW 18.8 H MPV 8.7 Neutrophils % 57.7 Lymphocytes % 17.8 D Monocytes % 16.7 H Eosinophils % 7.0 H Basophils % 0.8 - Medications Given in the ED: ED Medications Discontinued Medications Generic Name Dose Route Start Last Admin Trade Name Marcy PRN Reason Stop Dose Admin Acetaminophen 1,000 mg 03/07/19 13:01 03/07/19 13:39 Ofirmev Injection - IVPB 03/07/19 13:02 1,000 mg ONCE ONE Administration Al Hydroxide/Mg Hydroxide 30 ml 03/07/19 12:45 03/07/19 13:39 Mylanta Suspension - PO 03/07/19 12:46 30 ml ONCE ONE Administration Famotidine/Sodium Chloride 20 mg in 50 mls @ 100 mls/hr 03/07/19 12:45 13:48 Pepcid 20 Mg Premixed Ivpb - IVPB 03/07/19 13:14 100 mls/hr ONCE ONE Administration Sodium Chloride 1,000 ml 03/07/19 12:44 03/07/19 13:49 Normal Saline - IV 03/07/19 12:45 Not Given ONCE ONE <Elyssa lCinton - Last Filed: 03/07/19 17:55> - LABORATORY CBC & Chemistry Diagram: 03/07/19 13:12 03/07/19 13:12 <Reji Daigle - Last Filed: 03/07/19 17:59> Medical Decision Making - Medical Decision Making 03/07/19 13:10 CBC CMP trop BNP EKG CXR head/c-spine CT does not show bleed/infarct/fx XR R shoulder /L foot does not show fx/subluxatio tylenol for pain, pepcid, maalox for AB discomfort held fluids d/t hx CKD, CHF Hgb 10, BNP 414, Cr 2.2 (baseline 2), BG 317, AST/ALt 90/70, CK 720, trop neg EKG shows irregular sinus rhythm, HR 63, QTc 440, no ST changes, unchanged from 03/01. CXR does not show active pulmonary disease Rita Flores is a 83yF w PMHx HTN HLD CHF CKD presenting with head injury s/ p mechanical fall. Pt has CHF exacerbation w elevated BNP 414, BLE edema and distention. Systolic murmur on exam should be further evaluated w echo. Head/c- spine CT did not show any bleed/fracture/subluxation. R shoulder, L foot XR does not show fracture/subluxation. No ACS w neg trop, unchanged EKG. Given tylenol for pain, pepcid, maalox for AB discomfort, loose stools likely d/t gastroenteritis. CXR does not show active pulmonary disease Admitted to Dr Kell gonzales for CHF exacerbation, systolic murmur PCP: Dr Jam Sunshine Interior Wirer: Dr Apollo Kiser <Reji Daigle - Last Filed: 03/07/19 17:59> *DC/Admit/Observation/Transfer - Discharge Dispostion Decision to Admit order: Yes <Elyssa Clinton - Last Filed: 03/07/19 17:55> <Reji Daigle - Last Filed: 03/07/19 17:59> Diagnosis at time of Disposition: Systolic murmur CHF exacerbation Qualifiers: Heart failure type: unspecified Qualified Code(s): I50.9 - Heart failure, unspecified - Discharge Dispostion Condition at time of disposition: Good - Referrals Referrals: Jam Sunshine MD [Primary Care Provider] - - Patient Instructions - Post Discharge Activity
--- NOTE | 2019-03-07 12:31 | PDOC ---
Attending Attestation - Resident Resident Name: Tammie Diane - [facility] HPI: 03/07/19 13:21 Pt presents to the ED complaining of a two day history of worsening abdominal distention, shortness of breath and diarrhea. Denies fever or abdominal pain. History of CHF, chronically on home o2. States that she has been compliant with her lasix, and is uncertain if she has gained weight. Daughter reports that the patient has been increasingly lethargic, and is having trouble doing her adls at home. Also reports a fall at 3 am this morning. 03/07/19 13:27 03/07/19 13:49 - Physicial Exam PE: 03/07/19 13:29 Agree with resident exam. Patient is alert and oriented x 3, but is slightly lethargic. CV: rrr, systolic murmur. Lungs: + crackles in the bases, decreased air entry, tachypneic, + abdominal retractions. Abdomen: soft, distended, no guarding or rebound. EXt: + 2 pitting edema to knee b/l - Medical Decision Making 03/07/19 13:43 Pt presents to the ED complaining of diarrhea, abdominal distention, shortness of breath. History of CHF with home o2 use. Concern for CHF exacerbation. Will check labs, CXR and BNP. Will check CT head and C spine to rule out intracranial or cervical spinal injury. Will admit to medicine. 03/07/19 13:49
[2019-03-07] MEDS ORDERED: SODIUM CHLORIDE 0.9% 500 ML INFUS.BAG IV ONE (12:44)
[2019-03-07] MEDS ORDERED: MAG HYDROX/AL HYDROX/SIMETH -MYLANTA- ORAL SUSPENSION PO ONE (12:45)
[2019-03-07] MEDS ORDERED: FAMOTIDINE 20 MG/50 ML IVPB 20 MG/50 ML MG IVPB ONE ×2 (12:45→13:33)
[2019-03-07] MEDS ORDERED: ACETAMINOPHEN 1000 MG/100 ML VIAL (NON FORMULARY) IVPB ONE (13:01)
[2019-03-07] MEDS ORDERED: MAG HYDROX/AL HYDROX/SIMETH 30 ML UNIT-DOSE CUP ONE (13:33)
[2019-03-07] MEDS ORDERED: ACETAMINOPHEN INJECTION 100 ML IVPB ONE (13:33)
[2019-03-07 13:59] LABS: BASO % 0.8 % (0-2.0); HEMOGLOBIN 10.2 GM/dL (10.7-15.3); LYMPH % 17.8 % (8-40); MCH 28.5 pg (25.7-33.7); MCHC 32.9 g/dl (32.0-36.0); MEAN CELL VOLUME 86.5 fl (80-96); MEAN PLT VOLUME 8.7 fl (7.5-11.1); MONO % 16.7 % (3.8-10.2); NEUT % 57.7 % (42.8-82.8); PLATELET COUNT 186 K/MM3 (134-434); RBC 3.58 M/mm3 (3.60-5.2); RDW 18.8 % (11.6-15.6); WHITE BLOOD COUNT 4.4 K/mm3 (4.0-10.0)
[2019-03-07 14:19] LABS: ALBUMIN 3.2 g/dl (3.4-5.0); BILIRUBIN,TOTAL 0.6 mg/dL (0.2-1); BLOOD UREA NITROGEN 66.7 mg/dL (7-18); CALCIUM 10.1 mg/dL (8.5-10.1); CREATININE 2.2 mg/dL (0.55-1.3); POTASSIUM 4.6 mmol/L (3.5-5.1); TOT PROT 6.5 g/dl (6.4-8.2)
--- NOTE | 2019-03-07 15:46 | EKG ---
Test Reason : Blood Pressure : / mmHG Vent. Rate : 063 BPM Atrial Rate : 063 BPM P-R Int : 154 ms QRS Dur : 084 ms QT Int : 430 ms P-R-T Axes : 071 057 033 degrees QTc Int : 440 ms POOR DATA QUALITY, INTERPRETATION MAY BE ADVERSELY AFFECTED SINUS RHYTHM WITH MARKED SINUS ARRHYTHMIA OTHERWISE NORMAL ECG WHEN COMPARED WITH ECG OF 01-MAR-2019 11:19, PREMATURE ATRIAL COMPLEXES ARE NO LONGER PRESENT Confirmed by EVY QUIROGA MD ([id number]) on 03/07/2019 3:46:10 PM Referred By: Confirmed By:EVY QUIROGA MD
--- NOTE | 2019-03-07 20:29 | HP ---
Admitting History and Physical - Primary Care Physician PCP: Kell Sunshine S - Admission Chief Complaint: fall weakness History of Present Illness: Pt presents to the ED complaining of a two day history of worsening abdominal distention, shortness of breath and diarrhea. Denies fever or abdominal pain. History of CHF, chronically on home o2. States that she has been compliant with her lasix, and is uncertain if she has gained weight. Daughter reports that the patient has been increasingly lethargic, and is having trouble doing her adls at home. Pt was in ER 1 week ago after a fall at home, but was sent bhome from ER. Now pt's daughter reports another fall at 3 am this morning. d/ w daughter Aicha who said her mom was just weak and lost balance fell and hit her L foot has some pain but no bleed or bruise, also said she did not hit her head and no LOC; can move U/LE bilat. She had some failure to thrive at home in the last few weeks, does not want to get OOB, no appetite, sometimes not c/w meds and her diet History Source: Patient, Family Member, Medical Record Limitations to Obtaining History: No Limitations - Past Medical History Cardiovascular: Yes: CAD (non-obstructive), CHF, HTN, Hyperlipdemia, Other ( Angina pectoris) Gastrointestinal: Yes: Constipation, Diverticulosis, GERD, Other (colon polyps: sessil serrated adenomas x 2 2014) Renal/: Yes: Renal Inusuff Musculoskeletal: Yes: Other (Spinal stenosis) Endocrine: Yes: Diabetes Mellitus (Insulin dependent), Hypothyroidism - Past Surgical History Past Surgical History: Yes: Hysterectomy (BRAXTON, BSO in 1981), Oopherectomy - Smoking History Smoking history: Never smoked Have you smoked in the past 12 months: No Aproximately how many cigarettes per day: 0 - Alcohol/Substance Use Hx Alcohol Use: No History of Substance Use: reports: None - Social History Usual Living Arrangement: Yes: With Spouse ADL: Independent History of Recent Travel: Yes (WENT TO [facility] TWO YEARS AGO) Home Medications - Allergies Allergies/Adverse Reactions: Allergies Allergy/AdvReac Type Severity Reaction Status Date / Time No Known Allergies Allergy Verified 03/07/19 12:29 - Home Medications Home Medications: Ambulatory Orders Aspirin Coated [Ecotrin -] 81 mg PO DAILY #30 tablet.ec 07/09/16 Levothyroxine [Synthroid -] 50 mcg PO DAILY #90 tablet 07/09/16 Allopurinol [Zyloprim -] 100 mg PO DAILY 10/02/17 Atorvastatin Ca [Lipitor] 20 mg PO HS 10/02/17 Gabapentin [Neurontin -] 300 mg PO HS 10/02/17 Acetaminophen [Tylenol .Extra-Strength -] 500 mg PO Q6H PRN tablet 11/12/17 Tamsulosin HCl [Flomax -] 0.4 mg PO DAILY@0830 #90 cap.er.24h 11/12/17 Bisacodyl [Bisacodyl -] 5 mg PO ASDIR 11/26/18 Carvedilol [Coreg -] 12.5 mg PO BID 11/26/18 Cinacalcet HCl [Sensipar] 30 mg PO DAILY 11/26/18 Hydralazine HCl 50 mg PO TID 11/26/18 Isosorbide Mononitrate [Imdur -] 90 mg PO DAILY 11/26/18 Latanoprost/Pf [Latanoprost 0.005% Eye Drop] 1 drp OP DAILY 11/26/18 Polyethylene Glycol 3350 [Miralax 119 gm Btl -] 17 gm PO DAILY 11/26/18 Potassium Chloride 20 meq PO BID 11/26/18 Ranitidine HCl [Zantac] 150 mg PO BID 11/26/18 Insulin (Levemir) [Levemir Vial] 18 units SQ HS units 12/08/18 Furosemide 100 mg PO BID 02/05/19 Colchicine [Colcrys] 0.6 mg PO BID cap 02/09/19 Review of Systems - Review of Systems Constitutional: reports: Lethargy, Loss of Appetite, Weakness. denies: Chills, Diaphoresis, Fever, Malaise, Night Sweats, Unintentional Wgt. Loss Eyes: denies: Blind Spots, Blurred Vision, Double Vision HENT: denies: Epistaxis Neck: denies: Decreased ROM, Tenderness Cardiovascular: reports: Shortness of Breath. denies: Chest Pain Respiratory: reports: Exercise Intolerance, SOB, SOB on Exertion. denies: Cough , Hemoptysis, Orthopnea, PND, Wheezing Gastrointestinal: reports: Diarrhea. denies: Abdominal Pain, Constipation, Vomiting Genitourinary: denies: Dysuria, Flank Pain Musculoskeletal: reports: Back Pain (chronic), Decreased ROM, Extremity Pain, Joint Pain (legs, back, arms), Muscle Pain. denies: Crepitus, Muscle Weakness Integumentary: denies: Bruising, Eczema, Erythema, Pallor, Pruritis, Rash, Wound Neurological: reports: Unsteady Gait, Weakness (general). denies: Change in LOC , Change in Speech, Confusion, Dizziness, Headache, Seizure, Syncope Hematology/Lymphatic: denies: Easily Bruised, Excessive Bleeding Psychiatric: denies: Altered Sleep Pattern, Anxiety, Depression, Suicidal Physical Examination Vital Signs: Vital Signs Temperature 97.3 F L 03/07/19 19:20 Pulse Rate 69 03/07/19 19:20 Respiratory Rate 20 03/07/19 19:20 Blood Pressure 149/79 03/07/19 19:20 O2 Sat by Pulse Oximetry (%) 96 03/07/19 19:20 Constitutional: Yes: No Distress, Calm Eyes: Yes: Conjunctiva Clear HENT: Yes: Atraumatic Neck: Yes: Supple Cardiovascular: Yes: Regular Rate and Rhythm Respiratory: Yes: Diminished Gastrointestinal: Yes: Soft, Abdomen, Obese. No: Tenderness Renal/: No: CVA Tenderness - Left, CVA Tenderness - Right, Hematuria Musculoskeletal: No: Joint Stiffness, Joint Swelling Extremities: No: Cold, Cool, Cyanosis Edema: No Integumentary: No: Rash, Venous Stasis Changes Neurological: Yes: WNL, Alert, Oriented ...Motor Strength: WNL Psychiatric: Yes: WNL, Alert, Oriented. No: Agitated, Suicidal Ideation Labs: CBC, BMP 03/07/19 13:12 03/07/19 13:12 Imaging - Results Chest X-ray: Report Reviewed X-ray: Report Reviewed Cat Scan: Report Reviewed Other: Report Reviewed Assessment/Plan Pt presents to the ED complaining of a two day history of worsening abdominal distention, shortness of breath and diarrhea. History of CHF, chronically on home o2, increasingly lethargic, decreased po intake. s/p fall x 2 at home ARF/CRF; uncontrolled DM, rabdomyolisis admit to monitored unit gentle IVF and po lasix for rabdo f/u labs, CE cardio, neuro and GI eval falls decubs pfx prognosis guarded d/w pt and daughter at bedside
[2019-03-07] MEDS ORDERED: ATORVASTATIN CA 20 MG TABLET (FP) PO SCH (22:00)
[2019-03-07] MEDS ORDERED: INSULIN (LEVEMIR) 100 UNITS/ML UNITS SQ SCH (22:00)
[2019-03-07] MEDS ORDERED: GABAPENTIN 300 MG CAPSULE (FP) PO SCH (22:00)
[2019-03-07] MEDS ORDERED: CARVEDILOL 12.5 MG TABLET (FP) ONE (22:17)
[2019-03-07] MEDS ORDERED: ATORVASTATIN CA 20 MG TABLET (FP) ONE (22:17)
[2019-03-07] MEDS ORDERED: hydrALAZINE HCL 25 MG TABLET (FP) ONE (22:17)
[2019-03-07] MEDS ORDERED: POTASSIUM CHLORIDE TABS 20 MEQ TABLET.ER (FP) PO ONE (22:17)
[2019-03-07] MEDS ORDERED: GABAPENTIN 100 MG CAPSULE (FP) ONE (22:18)
[2019-03-07] MEDS ORDERED: INSULIN (LEVEMIR) 100 UNITS/ML UNITS SQ ONE (22:18)
[2019-03-07] MEDS ORDERED: HEPARIN NA (PORCINE) 5,000 UNITS/ML 1ML VIAL ONE (22:18)
[2019-03-07] MEDS: CARVEDILOL 6.25 MG TABLET (FP) PO SCH (22:33)
[2019-03-07] MEDS: HEPARIN NA (PORCINE) 5,000 UNITS/ML 1ML VIAL SQ SCH (22:33)
[2019-03-07] MEDS: hydrALAZINE HCL 50 MG TABLET (FP) PO SCH (22:33)
[2019-03-07] MEDS: POTASSIUM CHLORIDE TABS 20 MEQ TABLET.ER (FP) PO SCH (22:33)
[2019-03-07] MEDS: RANITIDINE HCL 150 MG TABLET (FP) PO SCH (23:16)
[2019-03-08] MEDS: FUROSEMIDE 40 MG TABLET (FP) PO SCH ×2 (06:23→14:53)
[2019-03-08] MEDS: hydrALAZINE HCL 50 MG TABLET (FP) PO SCH ×2 (06:33→14:48)
[2019-03-08] MEDS ORDERED: LEVOTHYROXINE NA 50 MCG TABLET (FP) PO SCH (07:00)
[2019-03-08 07:55] LABS: N-TERMINAL BNP 903.8 pg/ml (5-450)
[2019-03-08 08:15] LABS: BASO % 0.3 % (0-2.0); EOS % 4.8 % (0-4.5); HEMOGLOBIN 10.3 GM/dL (10.7-15.3); LYMPH % 14.8 % (8-40); MCH 28.8 pg (25.7-33.7); MCHC 33.2 g/dl (32.0-36.0); MEAN CELL VOLUME 86.9 fl (80-96); MEAN PLT VOLUME 9.3 fl (7.5-11.1); MONO % 14.3 % (3.8-10.2); NEUT % 65.8 % (42.8-82.8); PLATELET COUNT 186 K/MM3 (134-434); RBC 3.57 M/mm3 (3.60-5.2); WHITE BLOOD COUNT 5.4 K/mm3 (4.0-10.0)
[2019-03-08 08:21] LABS: ALBUMIN 3.1 g/dl (3.4-5.0); BILIRUBIN,TOTAL 0.5 mg/dL (0.2-1); BLOOD UREA NITROGEN 68.9 mg/dL (7-18); CREATININE 2.3 mg/dL (0.55-1.3); POTASSIUM 4.7 mmol/L (3.5-5.1); TOT PROT 6.2 g/dl (6.4-8.2)
[2019-03-08] MEDS ORDERED: TAMSULOSIN HCL 0.4 MG CAP PO SCH (08:30)
[2019-03-08] MEDS ORDERED: ASPIRIN COATED 81 MG TABLET.EC PO SCH (10:00)
[2019-03-08] MEDS ORDERED: CINACALCET HCL 30 MG TAB (FP) PO SCH (10:00)
[2019-03-08] MEDS ORDERED: ISOSORBIDE MONONITRATE 30 MG TAB.SR.24H (FP) PO SCH (10:00)
[2019-03-08] MEDS ORDERED: POLYETHYLENE GLYCOL 3350 119 GM BTL PO SCH (10:00)
[2019-03-08] MEDS ORDERED: ALLOPURINOL 100 MG TABLET (FP) PO SCH (10:00)
--- NOTE | 2019-03-08 10:40 | PN ---
Progress Note, Physician Chief Complaint: events noted pt more SOB after < 100 cc IVF; IVF stopped yue received lasix, nebs, O2 Check ABG if hypoxemic or retaining CO2 might need ICU / bipap - Current Medication List Current Medications: Active Medications Allopurinol (Zyloprim -) 100 mg PO DAILY [facility] Aspirin (Ecotrin -) 81 mg PO DAILY [facility] Atorvastatin Calcium (Lipitor -) 20 mg PO HS [facility] Last Admin: 03/07/19 22:34 Dose: 20 mg Bisacodyl (Dulcolax -) 5 mg PO ASDIR [facility] Carvedilol (Coreg -) 12.5 mg PO BID [facility] Last Admin: 03/07/19 22:33 Dose: 12.5 mg Cinacalcet (Sensipar -) 30 mg PO DAILY [facility] Furosemide (Lasix -) 80 mg PO BID@0600,1400 [facility] Last Admin: 03/08/19 06:23 Dose: 80 mg Gabapentin (Neurontin -) 300 mg PO HS [facility] Last Admin: 03/07/19 22:34 Dose: 300 mg Heparin Sodium (Porcine) (Heparin -) 5,000 unit SQ BID [facility] Last Admin: 03/07/19 22:33 Dose: 5,000 unit Hydralazine HCl (Apresoline -) 50 mg PO TID [facility] Last Admin: 03/08/19 06:33 Dose: Not Given Sodium Chloride (Normal Saline -) 1,000 mls @ 50 mls/hr IV ASDIR [facility] Stop: 03/09/19 10:39 Insulin Detemir (Levemir Vial) 18 units SQ HS [facility] Last Admin: 03/07/19 22:33 Dose: 18 units Isosorbide Mononitrate (Imdur -) 90 mg PO DAILY [facility] Latanoprost (Xalatan 0.005% Eye Drops -) 1 drop OU HS [facility] Levothyroxine Sodium (Synthroid -) 50 mcg PO AM [facility] Last Admin: 03/08/19 06:23 Dose: 50 mcg Polyethylene Glycol (Miralax (For Daily Use) -) 17 gm PO DAILY [facility] Potassium Chloride (K-Dur -) 20 meq PO BID [facility] Last Admin: 03/07/19 22:33 Dose: 20 meq Ranitidine HCl (Zantac -) 150 mg PO BID [facility] Last Admin: 03/07/19 23:16 Dose: 150 mg Tamsulosin HCl (Flomax -) 0.4 mg PO DAILY@0830 [facility] - Objective Vital Signs: Vital Signs Temperature 97.8 F 03/08/19 05:45 Pulse Rate 60 03/08/19 05:45 Respiratory Rate 18 03/08/19 05:45 Blood Pressure 116/47 L 03/08/19 05:45 O2 Sat by Pulse Oximetry (%) 99 03/07/19 23:47 Constitutional: Yes: Anxious Eyes: Yes: Conjunctiva Clear HENT: Yes: Atraumatic Neck: Yes: Supple Cardiovascular: Yes: Regular Rate and Rhythm Respiratory: Yes: Diminished Gastrointestinal: Yes: Soft. No: Tenderness Genitourinary: No: Hematuria Musculoskeletal: No: Joint Stiffness, Joint Swelling Extremities: No: Calf Tenderness, Cold, Cool Edema: Yes (pedal edema L>R) Integumentary: No: Rash, Venous Stasis Changes Neurological: Yes: WNL, Alert, Oriented ...Motor Strength: WNL Psychiatric: Yes: WNL, Alert, Oriented. No: Agitated, Suicidal Ideation Labs: CBC, BMP 03/08/19 05:58 03/08/19 05:58 - ....Imaging Other: Report Reviewed Assessment/Plan Pt presents to the ED complaining of a two day history of worsening abdominal distention, shortness of breath and diarrhea. History of CHF, chronically on home o2, increasingly lethargic, decreased po intake. s/p fall x 2 at home SOB CHF / COPD exac; check CXR ABG pulm eval; might need BIPAP / ICU, d/w dr Bell ARF/CRF; uncontrolled DM, rabdomyolisis - did not tolerate ivf - renal eval d/w dr Tian f/u labs, CE cardio, neuro and GI eval falls decubs pfx prognosis guarded d/w pt and daughter at bedside t time 45 min
[2019-03-08] MEDS ORDERED: SODIUM CHLORIDE 1,000 ML IV SCH (10:45)
[2019-03-08] MEDS: HEPARIN NA (PORCINE) 5,000 UNITS/ML 1ML VIAL SQ SCH ×2 (10:50→21:27)
[2019-03-08] MEDS: RANITIDINE HCL 150 MG TABLET (FP) PO SCH ×2 (10:50→21:29)
[2019-03-08] MEDS: POTASSIUM CHLORIDE TABS 20 MEQ TABLET.ER (FP) PO SCH (10:55)
[2019-03-08] MEDS: CARVEDILOL 6.25 MG TABLET (FP) PO SCH ×2 (10:55→21:29)
[2019-03-08] MEDS ORDERED: ALBUTEROL SO4 0.083% IH SOL 2.5 MG/3 ML VIAL.NEB. NEB PRN ×2 (14:41→19:37)
--- NOTE | 2019-03-08 14:46 | CON.GI ---
Consult Consult Specialty:: GI Referred by:: Dr. Kell Sunshine Reason for Consultation:: Diarrhea - History of Present Illness Chief Complaint: Patient tachypnic and somewhat lethargic. Does not give chief complaint. Per the chart, fall at home History of Present Illness: 83F admitted for evaluation s/p fall at home. Noted mild rhabdomyolysis. Asked to evaluate diarrhea. Ms. Flores is generally constipated. There has been no diarrhea since admission and she had a formed BM today. Last seen in office 02/03. CT scan of abdomen and pelvis performed with PO contrast revealed retained stool. She has had multiple admissions since that time for heart failure that have precluded her from having a follow-up colonoscopy. Today, she is noted to by tachypnic and somewhat lethargic during my evaluation. She denies abdominal pain. Last EGD/Colonoscopy 06/06/15 led to the removal of two hepatic flexure sessile serrated adenomas and a hyperplastic transverse colon polyp. The bowel prep was suboptimal. EGD revealed duodenitis. - History Source History Provided By: Medical Record - Past Medical History Cardio/Vascular: Yes: CAD (non-obstructive), CHF, HTN, Hyperlipdemia, Other ( Angina pectoris) Gastrointestinal: Yes: Constipation, Diverticulosis, GERD, Other (colon polyps: sessil serrated adenomas x 2 2014) Renal/: Yes: Renal Inusuff Musculoskeletal: Yes: Other (Spinal stenosis) Endocrine: Yes: Diabetes Mellitus (Insulin dependent), Hypothyroidism - Past Surgical History Past Surgical History: Yes: Hysterectomy (BRAXTON, BSO in 1981), Oopherectomy - Alcohol/Substance Use Hx Alcohol Use: No History of Substance Use: reports: None - Smoking History Smoking history: Never smoked Have you smoked in the past 12 months: No Aproximately how many cigarettes per day: 0 - Social History Usual Living Arrangement: With Spouse ADL: Independent Place of : Other ([place]) History of Recent Travel: No Home Medications - Allergies Allergies/Adverse Reactions: Allergies Allergy/AdvReac Type Severity Reaction Status Date / Time No Known Allergies Allergy Verified 03/07/19 12:29 - Home Medications Home Medications: Ambulatory Orders Aspirin Coated [Ecotrin -] 81 mg PO DAILY #30 tablet.ec 07/09/16 Levothyroxine [Synthroid -] 50 mcg PO DAILY #90 tablet 07/09/16 Allopurinol [Zyloprim -] 100 mg PO DAILY 10/02/17 Atorvastatin Ca [Lipitor] 20 mg PO HS 10/02/17 Gabapentin [Neurontin -] 300 mg PO HS 10/02/17 Acetaminophen [Tylenol .Extra-Strength -] 500 mg PO Q6H PRN tablet 11/12/17 Tamsulosin HCl [Flomax -] 0.4 mg PO DAILY@0830 #90 cap.er.24h 11/12/17 Bisacodyl [Bisacodyl -] 5 mg PO ASDIR 11/26/18 Carvedilol [Coreg -] 12.5 mg PO BID 11/26/18 Cinacalcet HCl [Sensipar] 30 mg PO DAILY 11/26/18 Hydralazine HCl 50 mg PO TID 11/26/18 Isosorbide Mononitrate [Imdur -] 90 mg PO DAILY 11/26/18 Latanoprost/Pf [Latanoprost 0.005% Eye Drop] 1 drp OP DAILY 11/26/18 Polyethylene Glycol 3350 [Miralax 119 gm Btl -] 17 gm PO DAILY 11/26/18 Potassium Chloride 20 meq PO BID 11/26/18 Ranitidine HCl [Zantac] 150 mg PO BID 11/26/18 Insulin (Levemir) [Levemir Vial] 18 units SQ HS units 12/08/18 Furosemide 100 mg PO BID 02/05/19 Colchicine [Colcrys] 0.6 mg PO BID cap 02/09/19 Family Medical History Other Family History: No family history of colorectal cancer or other GI malignancy Review of Systems Unable to obtain ROS, reason: Patient tachynnic, lethar - Review of Systems Gastrointestinal: denies: Abdominal Pain, Diarrhea (none currenntly) Physical Exam-GI Vital Signs: Vital Signs Temperature 97.8 F 03/08/19 05:45 Pulse Rate 60 03/08/19 05:45 Respiratory Rate 18 03/08/19 05:45 Blood Pressure 116/47 L 03/08/19 05:45 O2 Sat by Pulse Oximetry (%) 99 03/07/19 23:47 Constitutional: Yes: Calm Eyes: No: Sclera Icterus Cardiovascular: Yes: Regular Rate and Rhythm, Murmur (2/6 systolic murmur) Respiratory: Yes: Rhonchi (bilaterally), Tachypnea Gastrointestinal Inspection: No: Distention ...Auscultate: Yes: Normoactive Bowel Sounds ...Palpate: Yes: Soft. No: Hepatomegaly, Splenomegaly, Tenderness ...Percussion: No: Tympanitic Edema: LLE: 1+, RLE: 1+ Neurological: Yes: Other (Answering questions but somewhat somnolent) Labs: CBC, BMP 03/08/19 05:58 03/08/19 05:58 Hepatic Panel Total Bilirubin 0.5 mg/dL (0.2-1) 03/08/19 05:58 AST 91 U/L (15-37) H 03/08/19 05:58 ALT 67 U/L (13-61) H 03/08/19 05:58 Alkaline Phosphatase 112 U/L (45-117) 03/08/19 05:58 Albumin 3.1 g/dl (3.4-5.0) L 03/08/19 05:58 Imaging - Results Ultrasound: Report Reviewed (No gallstones, fatty liver) Problem List - Problems (1) Diarrhea Assessment/Plan: no diarrhea currently If diarrhea occurs, stool for c. diff / culture / O&P Code(s): R19.7 - DIARRHEA, UNSPECIFIED (2) Abnormal liver function test Assessment/Plan: Improving. Suspect transaminitis to be secondary to mild rhabdomyolysis. ? if passive congestion is imvolved in setting of CHF. Continue to monitor Avoid hepatotoxic agents. Hold statin for now Monitor LFTs Code(s): R94.5 - ABNORMAL RESULTS OF LIVER FUNCTION STUDIES (3) Tachypnea Assessment/Plan: with lethargy and rhonchi on exam. Ms. Flores's nurse was with me during my evaluation. I asked that she give Dr. Sunshine a call to update her on her overall status and for further evaluation. Code(s): R06.82 - TACHYPNEA, NOT ELSEWHERE CLASSIFIED
--- NOTE | 2019-03-08 15:01 | CONSULT ---
Consult - text type - Consultation Consultation Note: Renal consult for CKD This is a 83 [place] with history of CKD stage 4 (baseline Cr ~2), CM Type 2, CHF with diastolic dysfunction, hypertension who presented from home with a fall and diarrhea. Pt had fallen last week and then fell again yesterday morning. As per daughter pt has been having significant lower extremity swelling as well. Seen at the bedside. Reports feeling really weak and having tenderness all over. She denies any fever or chills. Denies any flank pain, dysuria, ferequency, urgency, N/V. No diarrhea since being in the hospital. PMhx: as above Allergies: NKDA Family Hx: NC Social Hx: No T/A/D ROS: as per HPI Home Medications Medication Instructions Recorded Aspirin Coated [Ecotrin -] 81 mg PO DAILY #30 tablet.ec 07/09/16 Levothyroxine [Synthroid -] 50 mcg PO DAILY #90 tablet 07/09/16 Allopurinol [Zyloprim -] 100 mg PO DAILY 10/02/17 Atorvastatin Ca [Lipitor] 20 mg PO HS 10/02/17 Gabapentin [Neurontin -] 300 mg PO HS 10/02/17 Acetaminophen [Tylenol 500 mg PO Q6H PRN tablet 11/12/17 .Extra-Strength -] Tamsulosin HCl [Flomax -] 0.4 mg PO DAILY@0830 #90 cap.er.24h 11/12/17 Bisacodyl [Bisacodyl -] 5 mg PO ASDIR 11/26/18 Carvedilol [Coreg -] 12.5 mg PO BID 11/26/18 Cinacalcet HCl [Sensipar] 30 mg PO DAILY 11/26/18 Hydralazine HCl 50 mg PO TID 11/26/18 Isosorbide Mononitrate [Imdur -] 90 mg PO DAILY 11/26/18 Latanoprost/Pf [Latanoprost 0.005% 1 drp OP DAILY 11/26/18 Eye Drop] Polyethylene Glycol 3350 [Miralax 17 gm PO DAILY 11/26/18 119 gm Btl -] Potassium Chloride 20 meq PO BID 11/26/18 Ranitidine HCl [Zantac] 150 mg PO BID 11/26/18 Insulin (Levemir) [Levemir Vial] 18 units SQ HS units 12/08/18 Furosemide 100 mg PO BID 02/05/19 Colchicine [Colcrys] 0.6 mg PO BID cap 02/09/19 Vital Signs Temperature 97.8 F 03/08/19 05:45 Pulse Rate 60 03/08/19 05:45 Respiratory Rate 18 03/08/19 05:45 Blood Pressure 116/47 L 03/08/19 05:45 O2 Sat by Pulse Oximetry (%) 99 03/07/19 23:47 Intake & Output 03/05/19 03/06/19 03/07/19 03/08/19 23:59 23:59 23:59 23:59 Intake Total 120 Balance 120 Weight 77.111 kg NAD awake and alert neck supple, no JVD RRR, no M/R Dec BS, no rales soft, obese, NT/ND trace LE edema, no clubbing or cyanosis CBC, BMP 03/08/19 05:58 03/08/19 05:58 Laboratory Tests 11/29/18 11/30/18 12/06/18 07:53 05:22 06:10 Random Glucose 91 Calcium 8.9 8.7 8.7 Phosphorus 2.8 2.4 L 3.4 Magnesium 2.5 H 2.4 Total Protein Albumin 3.3 L 12/07/18 03/08/19 06:56 05:58 Random Glucose Calcium 8.6 10.0 Phosphorus 3.1 Magnesium 2.4 Total Protein 6.2 L Albumin 3.1 L Current Medications Albuterol Sulfate (Ventolin 0.083% Nebulizer Soln -) 1 amp NEB Q6H PRN PRN Reason: SHORT OF BREATH/WHEEZING Allopurinol (Zyloprim -) 100 mg PO DAILY [facility] Last Admin: 03/08/19 11:06 Dose: 100 mg Aspirin (Ecotrin -) 81 mg PO DAILY [facility] Last Admin: 03/08/19 10:50 Dose: 81 mg Atorvastatin Calcium (Lipitor -) 20 mg PO HS [facility] Last Admin: 03/07/19 22:34 Dose: 20 mg Bisacodyl (Dulcolax -) 5 mg PO HS PRN PRN Reason: CONSTIPATION Carvedilol (Coreg -) 12.5 mg PO BID [facility] Last Admin: 03/08/19 10:55 Dose: 12.5 mg Cinacalcet (Sensipar -) 30 mg PO DAILY [facility] Last Admin: 03/08/19 10:50 Dose: 30 mg Furosemide (Lasix -) 80 mg PO BID@0600,1400 [facility] Last Admin: 03/08/19 14:53 Dose: 80 mg Gabapentin (Neurontin -) 300 mg PO HS [facility] Last Admin: 03/07/19 22:34 Dose: 300 mg Heparin Sodium (Porcine) (Heparin -) 5,000 unit SQ BID [facility] Last Admin: 03/08/19 10:50 Dose: 5,000 unit Sodium Chloride (Normal Saline -) 1,000 mls @ 50 mls/hr IV ASDIR [facility] Stop: 03/09/19 10:39 Last Admin: 03/08/19 13:48 Dose: 50 mls/hr Insulin Detemir (Levemir Vial) 18 units SQ HS [facility] Last Admin: 03/07/19 22:33 Dose: 18 units Isosorbide Mononitrate (Imdur -) 90 mg PO DAILY [facility] Last Admin: 03/08/19 10:50 Dose: 90 mg Latanoprost (Xalatan 0.005% Eye Drops -) 1 drop [facility] Levothyroxine Sodium (Synthroid -) 50 mcg PO AM [facility] Last Admin: 03/08/19 06:23 Dose: 50 mcg Polyethylene Glycol (Miralax (For Daily Use) -) 17 gm PO DAILY [facility] Last Admin: 03/08/19 11:07 Dose: Not Given Potassium Chloride (K-Dur -) 20 meq PO BID [facility] Last Admin: 03/08/19 10:55 Dose: 20 meq Ranitidine HCl (Zantac -) 150 mg PO BID [facility] Last Admin: 03/08/19 10:50 Dose: 150 mg Tamsulosin HCl (Flomax -) 0.4 mg PO DAILY@0830 [facility] Last Admin: 03/08/19 10:55 Dose: 0.4 mg 83 [place] with history of CKD stage 4 (baseline Cr ~2), DM Type 2, CHF with diastolic dysfunction, hypertension who presented from home with a fall and diarrhea. 1. CKD stage 4 2. Fall 3. Diarrhea r/o infectious etiology 4. CHF with diastolic dysfunction 5. Anemia 6. Hypertension Renal function near baseline at this time. No overt electrolyte or acid/base disturbance at this time. Continue current diuretics: Lasix 80mg PO BID. No indication for IV lasix as pt does not have pulmonary vascular congestion Trend renal function and electrolytes closely. Dose all meds for CrCl < 20 Fall precautions Diarrhea work up as per GI Can hold Sensipar for now as it may contribute to diarrhea (20%) Trend H/H, no indication for RADHA Continue Coreg Thank you Will follow Wm Tian DO
[2019-03-08 15:29] LABS: ARTERIAL BLOOD GAS pH 7.23 (7.35-7.45)
[2019-03-08 15:30] LABS: ALLENS TEST POSITIVE; ARTERIAL BLD GAS O2 SATURATION 98.7 % (95-98); ARTERIAL BLOOD GAS BASE EXCESS 2.6 meq/l (-2-2); ARTERIAL BLOOD GAS PO2 158 mmHg (80-100)
--- NOTE | 2019-03-08 16:40 | CON.CARD ---
Consult Consult Specialty:: Cardiology Referred by:: She Sunshine MD Reason for Consultation:: Recurrent diastolic heart failure - History of Present Illness Chief Complaint: Diarrhea, post fall History of Present Illness: Patient is an 83 year old female with underlying history of HTN, type 2 DM, hypercholesterolemia, LV diastolic dysfunction with h/o failure, osteoarthritis , hypothyroidism, diverticular disease, duodenitis, CKD 4 (baseline Cr ~2), cervical radiculopathy presented with confusion, fall and diarrhea. Pt had fallen last week and then fell again yesterday morning. As per daughter pt has been having significant lower extremity swelling as well. Reports feeling really weak, dyspneic and having tenderness all over. She denies chest pain, near or true syncope, palpitations, no diarrhea since being in the hospital. Last office visit 09/26/2018. she was found to be in acute on chronic hypercapneic respiratory failure. - History Source History Provided By: Medical Record Limitations to Obtaining History: Poor Historian - Past Medical History Cardio/Vascular: Yes: CAD (non-obstructive), CHF, HTN, Hyperlipdemia, Other ( Angina pectoris) Gastrointestinal: Yes: Constipation, Diverticulosis, GERD, Other (colon polyps: sessil serrated adenomas x 2 2014) Renal/: Yes: Renal Inusuff Musculoskeletal: Yes: Other (Spinal stenosis) Endocrine: Yes: Diabetes Mellitus (Insulin dependent), Hypothyroidism - Past Surgical History Past Surgical History: Yes: Hysterectomy (BRAXTON, BSO in 1981), Oopherectomy - Alcohol/Substance Use Hx Alcohol Use: No History of Substance Use: reports: None - Smoking History Smoking history: Never smoked Have you smoked in the past 12 months: No Aproximately how many cigarettes per day: 0 - Social History Usual Living Arrangement: With Spouse ADL: Independent History of Recent Travel: No Home Medications - Allergies Allergies/Adverse Reactions: Allergies Allergy/AdvReac Type Severity Reaction Status Date / Time No Known Allergies Allergy Verified 03/07/19 12:29 - Home Medications Home Medications: Ambulatory Orders Aspirin Coated [Ecotrin -] 81 mg PO DAILY #30 tablet.ec 07/09/16 Levothyroxine [Synthroid -] 50 mcg PO DAILY #90 tablet 07/09/16 Allopurinol [Zyloprim -] 100 mg PO DAILY 10/02/17 Atorvastatin Ca [Lipitor] 20 mg PO HS 10/02/17 Gabapentin [Neurontin -] 300 mg PO HS 10/02/17 Acetaminophen [Tylenol .Extra-Strength -] 500 mg PO Q6H PRN tablet 11/12/17 Tamsulosin HCl [Flomax -] 0.4 mg PO DAILY@0830 #90 cap.er.24h 11/12/17 Bisacodyl [Bisacodyl -] 5 mg PO ASDIR 11/26/18 Carvedilol [Coreg -] 12.5 mg PO BID 11/26/18 Cinacalcet HCl [Sensipar] 30 mg PO DAILY 11/26/18 Hydralazine HCl 50 mg PO TID 11/26/18 Isosorbide Mononitrate [Imdur -] 90 mg PO DAILY 11/26/18 Latanoprost/Pf [Latanoprost 0.005% Eye Drop] 1 drp OP DAILY 11/26/18 Polyethylene Glycol 3350 [Miralax 119 gm Btl -] 17 gm PO DAILY 11/26/18 Potassium Chloride 20 meq PO BID 11/26/18 Ranitidine HCl [Zantac] 150 mg PO BID 11/26/18 Insulin (Levemir) [Levemir Vial] 18 units SQ HS units 12/08/18 Furosemide 100 mg PO BID 02/05/19 Colchicine [Colcrys] 0.6 mg PO BID cap 02/09/19 Review of Systems - Review of Systems Constitutional: reports: Lethargy, Weakness Cardiovascular: reports: Shortness of Breath Neurological: reports: Confusion Vital Signs: Vital Signs Temperature 98.2 F 03/08/19 15:23 Pulse Rate 57 L 03/08/19 15:23 Respiratory Rate 18 03/08/19 15:39 Blood Pressure 112/49 L 03/08/19 15:23 O2 Sat by Pulse Oximetry (%) 99 03/08/19 15:39 Constitutional: Yes: No Distress, Calm Neck: Yes: Supple Respiratory: Yes: Regular, Diminished, On BiPap Gastrointestinal: Yes: Soft, Hypoactive Bowel Sounds Cardiovascular: Yes: Regular Rate and Rhythm JVD: No Carotid Bruit: No Heart Sounds: Yes: S1, S2 Murmur: Yes: Systolic Murmur, Grade 1 Edema: No - Other Data Labs, Other Data: CBC, BMP 03/08/19 05:58 03/08/19 05:58 Troponin, BNP 03/08/19 03/08/19 05:58 05:58 Troponin I 0.03 B-Natriuretic Peptide 903.8 H Troponin, BNP 03/08/19 03/08/19 05:58 05:58 Troponin I 0.03 B-Natriuretic Peptide 903.8 H NSR @ 72 LAE Ejection Fraction %: LVEF > or = 40 % Imaging - Results Chest X-ray: Report Reviewed (Congestion) Problem List - Problems (1) Acute on chronic respiratory failure with hypercapnia Code(s): J96.22 - ACUTE AND CHRONIC RESPIRATORY FAILURE WITH HYPERCAPNIA (2) Bilateral lower extremity edema Code(s): R60.0 - LOCALIZED EDEMA (3) Fall Code(s): W19.XXXA - UNSPECIFIED FALL, INITIAL ENCOUNTER Qualifiers: Encounter type: initial encounter Qualified Code(s): W19.XXXA - Unspecified fall, initial encounter (4) Non-occlusive coronary artery disease Code(s): I25.10 - ATHSCL HEART DISEASE OF [place] CORONARY ARTERY W/O ANG PCTRS (5) Diabetes mellitus with diabetic cardiomyopathy Code(s): E11.59 - TYPE 2 DIABETES MELLITUS WITH OTH CIRCULATORY COMPLICATIONS; I43 - CARDIOMYOPATHY IN DISEASES CLASSIFIED ELSEWHERE (6) Endothelial dysfunction of coronary artery Code(s): I99.8 - OTHER DISORDER OF CIRCULATORY SYSTEM (7) Hyperlipidemia Code(s): E78.5 - HYPERLIPIDEMIA, UNSPECIFIED Qualifiers: Hyperlipidemia type: pure hypercholesterolemia Qualified Code(s): E78.00 - Pure hypercholesterolemia, unspecified; E78.0 - Pure hypercholesterolemia (8) Hypertension Code(s): I10 - ESSENTIAL (PRIMARY) HYPERTENSION Qualifiers: Hypertension type: unspecified Qualified Code(s): I10 - Essential (primary ) hypertension (9) Hypothyroidism Code(s): E03.9 - HYPOTHYROIDISM, UNSPECIFIED Qualifiers: Hypothyroidism type: unspecified Qualified Code(s): E03.9 - Hypothyroidism , unspecified (10) Acute on chronic diastolic congestive heart failure Code(s): I50.33 - ACUTE ON CHRONIC DIASTOLIC (CONGESTIVE) HEART FAILURE (11) [id number] kidney injury Code(s): N17.9 - ACUTE KIDNEY FAILURE, UNSPECIFIED; N18.9 - CHRONIC KIDNEY DISEASE, UNSPECIFIED Qualifiers: Chronic kidney disease stage: stage 4 (severe) Assessment/Plan 01/04/2016 normal LAD, 30% mild LCX and 60% mid RCA stenosis. Echocardiography (11/08/17) revealed normal LV systolic function, moderate LVH, trace to mild MR. 1. Acute on chronic hypercapneic respiratory failure post fall 2. Acute on chronic LV diastolic failure 3. CAD - non-obstructive, angina pectoris 4. HTN 5. Hypercholesterolemia 6. Type 2 DM 7. Hypothyroidism 8. CKD stage 4 9. H/o Hypovolemic hyponatremia and hypokalemia from diuretics and poor oral intake resolved 10. Spinal stenosis, cervical radiculopathy 11. Anemia 12. Diarrhea since resolved PLAN: 1. Continue Lasix 80 po bid with monitor diuretic response, renal fxn and electrolytes, Bipap per ABG 2. Continue ASA 81 qd, Carvedilol 12.5 mg BID, Lipitor 20 mg QHS, Imdur 90 mg QD and Hydralazine 50 mg TID as tolerated 3. Emphasized importance diet and medication compliance 4. GI and DVT prophylaxis 5. Thank you for consultative opportunity
--- NOTE | 2019-03-08 17:34 | PN ---
Progress Note (short form) - Note Progress Note: PULMONARY CONSULTATION DICTATED 03/08/19 IMP ACUTE ON CHRONIC HYPOXEMIC /HYPERCAPNEIC RESPIRATORY FAILURE ACUTE ON CHRONIC CHF ACUTE ON CKD HTN HLD DM ASHD PLAN LASIX O2 BIPAP NEEDED MONITOR LYTES,RENAL FUNCTION F/U CHEST X-RAYS DAILY WTS F/U ABGS ICU MONITORING DR DUBOIS Problem List - Problems (1) Acute on chronic respiratory failure with hypoxia and hypercapnia Code(s): J96.21 - ACUTE AND CHRONIC RESPIRATORY FAILURE WITH HYPOXIA; J96.22 - ACUTE AND CHRONIC RESPIRATORY FAILURE WITH HYPERCAPNIA (2) CHF exacerbation Code(s): I50.9 - HEART FAILURE, UNSPECIFIED Qualifiers: Heart failure type: unspecified Qualified Code(s): I50.9 - Heart failure, unspecified (3) Anemia Code(s): D64.9 - ANEMIA, UNSPECIFIED (4) Bilateral lower extremity edema Code(s): R60.0 - LOCALIZED EDEMA (5) CAD (coronary artery disease) Code(s): I25.10 - ATHSCL HEART DISEASE OF [place] CORONARY ARTERY W/O ANG PCTRS Qualifiers: Coronary Disease-Associated Artery/Lesion type: [place] artery (6) CHF (congestive heart failure) Code(s): I50.9 - HEART FAILURE, UNSPECIFIED (7) CRF (chronic renal failure) Code(s): N18.9 - CHRONIC KIDNEY DISEASE, UNSPECIFIED Qualifiers: Chronic kidney disease stage: stage 4 (severe) Qualified Code(s): N18.4 - Chronic kidney disease, stage 4 (severe) (8) Diabetes mellitus Code(s): E11.9 - TYPE 2 DIABETES MELLITUS WITHOUT COMPLICATIONS Qualifiers: Diabetes mellitus type: type 2 Diabetes mellitus intermediate designer insulin use: unspecified intermediate designer insulin use status Diabetes mellitus complication status : with other specified complication Qualified Code(s): E11.69 - Type 2 diabetes mellitus with other specified complication (9) Hypertension Code(s): I10 - ESSENTIAL (PRIMARY) HYPERTENSION Qualifiers: Hypertension type: unspecified Qualified Code(s): I10 - Essential (primary ) hypertension (10) CHF exacerbation Code(s): I50.9 - HEART FAILURE, UNSPECIFIED (11) Dyspnea Code(s): R06.00 - DYSPNEA, UNSPECIFIED Qualifiers: Dyspnea type: other forms of dyspnea Qualified Code(s): R06.09 - Other forms of dyspnea
--- NOTE | 2019-03-08 17:56 | CONSULT ---
Consultation: REQUESTING PROVIDER: CONSULT REQUEST: We have been asked to medically evaluate this patient for ICU level of care. HISTORY OF PRESENT ILLNESS: Patient is an 83F with history of HTN, HLD, CHF, CKD, hypothyroidism who presented to the ED for a fall. In the ED she was found to have an elevated CK and Cr level from baseline. Over the past day of admission, she developed increasing shortness of breath. CXR showed congestive changes and BNP was elevated. ABG showed acute on chronic respiratory acidosis and patient was started on bipap. Patient complains of shortness of breath, denies chest pain. Denies fevers, chills, nausea, vomiting. Denies headache, abdominal pain, dysuria. Endorses leg swelling. REVIEW OF SYSTEMS: GENERAL/CONSTITUTIONAL: No fever or chills. HEAD, EYES, EARS, NOSE AND THROAT: No change in vision. No sore throat. CARDIOVASCULAR: No chest pain +shortness of breath RESPIRATORY: No cough, wheezing, or hemoptysis. GASTROINTESTINAL: No nausea, vomiting, diarrhea or constipation. GENITOURINARY: No dysuria, frequency, or change in urination. MUSCULOSKELETAL: No joint or muscle swelling or pain. No neck or back pain. SKIN: No rash NEUROLOGIC: No headache, vertigo, loss of consciousness, or change in strength/ sensation. ENDOCRINE: No increased thirst. No abnormal weight change ALLERGIC/IMMUNOLOGIC: No hives or skin allergy. PHYSICAL EXAMINATION Vital Signs - 24 hr 03/07/19 03/07/19 03/08/19 19:20 23:47 01:42 Temperature 97.3 F L 97.8 F 97.7 F Pulse Rate 82 88 Pulse Rate [ 69 Left Apical] Respiratory 20 18 18 Rate Blood Pressure 140/58 L 116/47 L Blood Pressure 149/79 [Right Arm] O2 Sat by Pulse 96 99 Oximetry (%) 03/08/19 03/08/19 03/08/19 05:45 10:00 15:23 Temperature 97.8 F 98 F 98.2 F Pulse Rate 60 70 57 L Pulse Rate [ Left Apical] Respiratory 18 18 18 Rate Blood Pressure 116/47 L 118/64 112/49 L Blood Pressure [Right Arm] O2 Sat by Pulse Oximetry (%) 03/08/19 15:39 Temperature Pulse Rate Pulse Rate [ Left Apical] Respiratory 18 Rate Blood Pressure Blood Pressure [Right Arm] O2 Sat by Pulse 99 Oximetry (%) GENERAL: Awake, alert, and fully oriented HEAD: No signs of trauma, normocephalic, atraumatic EYES: PERRLA, EOMI, sclera anicteric, conjunctiva clear ENT: Auricles normal inspection, hearing grossly normal, nares patent, oropharynx clear without exudates. Moist mucosa NECK: Normal ROM, supple, no lymphadenopathy, JVD, or masses LUNGS: Crackles at the bases, tachypneic HEART: Regular rate and rhythm, normal S1 and S2, no murmurs, rubs or gallops, peripheral pulses normal and equal bilaterally. ABDOMEN: Soft, nontender, normoactive bowel sounds. No guarding, no rebound. No masses EXTREMITIES: Normal inspection, Normal range of motion, +edema in lower extremities. No clubbing or cyanosis. NEUROLOGICAL: Cranial nerves II through XII grossly intact. Normal speech, normal gait, no focal sensorimotor deficits SKIN: Warm, Dry, normal turgor, no rashes or lesions noted. Laboratory Results - last 24 hr 03/07/19 03/08/19 03/08/19 22:24 04:37 05:58 WBC 5.4 RBC 3.57 L Hgb 10.3 L Hct 31.0 L MCV 86.9 MCH 28.8 MCHC 33.2 RDW 18.0 H Plt Count 186 MPV 9.3 Absolute Neuts (auto) 3.5 Neutrophils % 65.8 Lymphocytes % 14.8 Monocytes % 14.3 H Eosinophils % 4.8 H Basophils % 0.3 Nucleated RBC % 0 Puncture Site ABG pH ABG pCO2 at Pt Temp ABG pO2 at Pt Temp ABG HCO3 ABG O2 Sat (Measured) ABG O2 Content ABG Base Excess Levy Test Oxygen Flow Rate Sodium Potassium Chloride Carbon Dioxide Anion Gap BUN Creatinine Est GFR (CKD-EPI)AfAm Est GFR (CKD-EPI)NonAf POC Glucometer 186 174 Random Glucose Calcium Total Bilirubin AST ALT Alkaline Phosphatase Creatine Kinase Creatine Kinase Index CK-MB (CK-2) Troponin I B-Natriuretic Peptide Total Protein Albumin Total Amylase Lipase Vitamin B12 TSH Stool Occult Blood 03/08/19 03/08/19 03/08/19 05:58 05:58 12:30 WBC RBC Hgb Hct MCV MCH MCHC RDW Plt Count MPV Absolute Neuts (auto) Neutrophils % Lymphocytes % Monocytes % Eosinophils % Basophils % Nucleated RBC % Puncture Site ABG pH ABG pCO2 at Pt Temp ABG pO2 at Pt Temp ABG HCO3 ABG O2 Sat (Measured) ABG O2 Content ABG Base Excess Levy Test Oxygen Flow Rate Sodium 136 Potassium 4.7 Chloride 97 L Carbon Dioxide 33 H Anion Gap 5 L BUN 68.9 H Creatinine 2.3 H Est GFR (CKD-EPI)AfAm 22.04 Est GFR (CKD-EPI)NonAf 19.02 POC Glucometer Random Glucose 180 H Calcium 10.0 Total Bilirubin 0.5 AST 91 H ALT 67 H Alkaline Phosphatase 112 Creatine Kinase 625 H Creatine Kinase Index 1.3 CK-MB (CK-2) 8.3 H Troponin I 0.03 B-Natriuretic Peptide 903.8 H Total Protein 6.2 L Albumin 3.1 L Total Amylase 61 Lipase 162 Vitamin B12 1315 H TSH 0.64 Stool Occult Blood Negative 03/08/19 03/08/19 14:32 15:20 WBC RBC Hgb Hct MCV MCH MCHC RDW Plt Count MPV Absolute Neuts (auto) Neutrophils % Lymphocytes % Monocytes % Eosinophils % Basophils % Nucleated RBC % Puncture Site Right radial ABG pH 7.23 L ABG pCO2 at Pt Temp 80.0 H* ABG pO2 at Pt Temp 158 H ABG HCO3 31.9 H ABG O2 Sat (Measured) 98.7 H ABG O2 Content 16.1 ABG Base Excess 2.6 H Levy Test Positive Oxygen Flow Rate 3l Sodium Potassium Chloride Carbon Dioxide Anion Gap BUN Creatinine Est GFR (CKD-EPI)AfAm Est GFR (CKD-EPI)NonAf POC Glucometer 190 Random Glucose Calcium Total Bilirubin AST ALT Alkaline Phosphatase Creatine Kinase Creatine Kinase Index CK-MB (CK-2) Troponin I B-Natriuretic Peptide Total Protein Albumin Total Amylase Lipase Vitamin B12 TSH Stool Occult Blood Active Medications Generic Name Dose Route Start Last Admin Trade Name Freq PRN Reason Stop Dose Admin Albuterol Sulfate 1 amp 03/08/19 14:41 03/08/19 15:59 Ventolin 0.083% Nebulizer Soln - NEB 1 amp Q6H PRN Administration SHORT OF BREATH/WHEEZING Allopurinol 100 mg 03/08/19 10:00 03/08/19 11:06 Zyloprim - PO 100 mg DAILY DARY Administration Aspirin 81 mg 03/08/19 10:00 03/08/19 10:50 Ecotrin - PO 81 mg DAILY [facility] Administration Atorvastatin Calcium 20 mg 03/07/19 22:00 03/07/19 22:34 Lipitor - PO 20 mg HS DARY Administration Bisacodyl 5 mg 03/08/19 22:00 Dulcolax - PO HS PRN CONSTIPATION Carvedilol 12.5 mg 03/07/19 22:00 03/08/19 10:55 Coreg - PO 12.5 mg BID DARY Administration Chlorhexidine Gluconate 1 applic 03/08/19 22:00 Hibiclens For Decolonization - TP HS DARY Furosemide 80 mg 03/08/19 06:00 03/08/19 14:53 Lasix - PO 80 mg BID@0600,1400 DARY Administration Gabapentin 300 mg 03/07/19 22:00 03/07/19 22:34 Neurontin - PO 300 mg HS [facility] Administration Heparin Sodium (Porcine) 5,000 unit 03/07/19 22:00 03/08/19 10:50 Heparin - SQ 5,000 unit BID DARY Administration Insulin Detemir 18 units 03/07/19 22:00 03/07/19 22:33 Levemir Vial SQ 18 units HS [facility] Administration Isosorbide Mononitrate 90 mg 03/08/19 10:00 03/08/19 10:50 Imdur - PO 90 mg DAILY [facility] Administration Latanoprost 1 drop 03/08/19 22:00 Xalatan 0.005% Eye Drops - OU HS [facility] Levothyroxine Sodium 50 mcg 03/08/19 07:00 03/08/19 06:23 Synthroid - PO 50 mcg AM [facility] Administration Mupirocin 1 applic 03/08/19 22:00 Bactroban Ointment (For Decolonization) - NS 03/13/19 21:59 BID [facility] Polyethylene Glycol 17 gm 03/08/19 10:00 03/08/19 11:07 Miralax (For Daily Use) - PO Not Given DAILY [facility] Potassium Chloride 20 meq 03/07/19 22:00 03/08/19 10:55 K-Dur - PO 20 meq BID DARY Administration Ranitidine HCl 150 mg 03/07/19 22:00 03/08/19 10:50 Zantac - PO 150 mg BID DARY Administration Tamsulosin HCl 0.4 mg 03/08/19 08:30 03/08/19 10:55 Flomax - PO 0.4 mg DAILY@0830 DARY Administration ASSESSMENT/PLAN: Patient is an 83F with history of HTN, HLD, CHF, CKD, hypothyroidism with CHF exacerbation. CV CHF exacerbation - Last echo did not show reduced EF - Will give lasix IV - Tele monitoring Resp - Bipap, new onset - ABG shows good oxygenation with poor compliance - Given what appears to be chronic retention, will give steroids as well ID - No fevers, signs of infection at this time - Will monitor FEN/GI - Cardiac diet - Replete electrolytes PRN Dispo: Full code, ICU care Visit type - Emergency Visit Emergency Visit: Yes ED Registration Date: 03/07/19 Care time: The patient presented to the Emergency Department on the above date and was hospitalized for further evaluation of their emergent condition. - New Patient This patient is new to me today: Yes Date on this admission: 03/09/19 - Critical Care Critical Care patient: Yes Total Critical Care Time (in minutes): 35 Critical Care Statement: The care of this patient involved high complexity decision making to prevent further life threatening deterioration of the patient 's condition and/or to evaluate & treat vital organ system(s) failure or risk of failure. ATTENDING PHYSICIAN STATEMENT I saw and evaluated the patient. I reviewed the resident's note and discussed the case with the resident. I agree with the resident's findings and plan as documented. SUBJECTIVE: OBJECTIVE: ASSESSMENT AND PLAN:
[2019-03-08] MEDS ORDERED: methylPREDNISolone NA SUCC 125 MG/2 ML VIAL IVPB ONE ×2 (18:16→19:00)
[2019-03-08] MEDS ORDERED: FUROSEMIDE 40 MG/4 ML INJECTABLE VIAL IVPUSH ONE (18:16)
[2019-03-08] MEDS ORDERED: ALBUTEROL SO4 2.5/IPRATROPIUM 0.5 INH SOL 3 ML VIAL.NEB. NEB ONE (18:17)
--- NOTE | 2019-03-08 18:36 | CONS ---
PULMONARY CONSULTATION DATE OF CONSULTATION: 03/08/2019 REFERRING PHYSICIAN: Dr. Sunshine Patient is an 83-year-old [place]ien female with past medical history of type 2 diabetes mellitus, hypertension, congestive heart failure, currently on home oxygen 09/01, chronic kidney disease, cervical radiculopathy, duodenitis, admitted to [facility] on March 07, with confusion, falls, and diarrhea. Patient apparently fell last week, then fell again on the day of admission. Apparently, also had increasing lower extremity edema and progressive weakness and dyspnea. She presented to the emergency room with the above. In the ER, she was noted to in [id number], hypercapnic hypoxic respiratory failure. She was placed on supplemental O2, administered Lasix for possible CHF. She was transferred up to the telemetry unit for further monitoring. Patient was noted to have pCO2 of 80, pH 7.23. She was placed on BiPAP. Patient is a nonsmoker. There is no apparent history of occupational exposure to chemicals or fumes. According to the patient's daughter, the patient is maintained on oxygen at home 09/01. PAST MEDICAL HISTORY: Again includes chronic congestive heart failure, hypertension, hyperlipidemia, diabetes, chronic kidney disease, diverticular disease, duodenitis, cervical radiculopathy, and ASHD, nonobstructive. REVIEW OF SYSTEMS: Positive dyspnea. Positive orthopnea. No chest pain. No palpitations. No cough. No hemoptysis. Positive weakness. Positive fall. Positive lower extremity edema. CURRENT MEDICATIONS: Include Flomax, heparin subcutaneous, Neurontin, Zyloprim, albuterol, Coreg, Dulcolax, MiraLAX, Xanax, Lipitor, Levemir, Lasix, Imdur, Ecotrin, Xalatan, K-Dur, and Synthroid. PHYSICAL EXAMINATION: General: Patient is an elderly female, well awake, alert, currently in no acute respiratory distress. Vital Signs: She is currently afebrile. Blood pressure is 112/49. Respiratory rate is 18. O2 saturation is 99% on 2 L. HEENT: Normocephalic, atraumatic. Neck: Supple. Heart: Regular. S1, S2. Chest: Bilateral bibasilar crackles 1/3 up. Abdomen: Soft. Bowel sounds are positive. Extremities: Bilateral extremity edema. LABORATORY DATA: Blood gas showed pH 7.23, pCO2 of 80, a pO2 of 158, a bicarbonate of 31, and a saturation of 98.7 on 3 L. WBC is 5.4, hemoglobin 10.3, hematocrit 31, platelet count of 186,000. Chest x-ray: Pulmonary vascular congestion. Chemistries: BUN 68, creatinine 2.3. IMPRESSION: 1. Qnbho-[id number], hypoxic hypercapnic respiratory failure secondary to [id number] congestive heart failure. 2. Vcvfa-dm-jeyubjy kidney disease. 3. Hypertension. 4. Hyperlipidemia. 5. Diabetes. 6. Atherosclerotic heart disease. PLAN: Lasix, supplemental O2, BiPAP as needed. Obtain followup arterial blood gases. Daily weights. Follow up chest x-ray. Monitor electrolytes, renal function. ICU monitoring. NAIN DUBOIS M.D. [id number]
--- NOTE | 2019-03-08 20:15 | CON.NEURO ---
Consult Consult Specialty:: NEUROLOGY-CHANTELL SCHROEDER - History of Present Illness History of Present Illness: Patient is an 83 year old female with underlying history of HTN, type 2 DM, hypercholesterolemia, LV diastolic dysfunction with h/o failure, osteoarthritis , hypothyroidism, diverticular disease, duodenitis, CKD 4 (baseline Cr ~2), cervical radiculopathy presented with confusion, fall and diarrhea. Pt had fallen last week and then fell again yesterday morning. As per daughter pt has been having significant lower extremity swelling as well. Reports feeling really weak, dyspneic and having tenderness all over. She denies chest pain, near or true syncope, palpitations, no diarrhea since being in the hospital. Last office visit 09/26/2018. she was found to be in acute on chronic hypercapneic respiratory failure. 01/04/2016 normal LAD, 30% mild LCX and 60% mid RCA stenosis. Echocardiography (11/08/17) revealed normal LV systolic function, moderate LVH, trace to mild MR. Other data: 1. Acute on chronic hypercapneic respiratory failure post fall 2. Acute on chronic LV diastolic failure 3. CAD - non-obstructive, angina pectoris 4. HTN 5. Hypercholesterolemia 6. Type 2 DM 7. Hypothyroidism 8. CKD stage 4 9. H/o Hypovolemic hyponatremia and hypokalemia from diuretics and poor oral intake resolved 10. Spinal stenosis, cervical radiculopathy 11. Anemia As per her daughter she fell last week , she was ambulant thereafter than she developed bilat LE swelling(improved now),yesterday she fell again while attempting to lie down on couch her legs"gave way". Pt. reports she has bilat LE pain since fallDe, denies weakness. She wears diapers at home due to urinary incont.(chronic).Denies all other neurologic symptoms. - Past Medical History Cardio/Vascular: Yes: CAD (non-obstructive), CHF, HTN, Hyperlipdemia, Other ( Angina pectoris) Gastrointestinal: Yes: Constipation, Diverticulosis, GERD, Other (colon polyps: sessil serrated adenomas x 2 2014) Renal/: Yes: Renal Inusuff Musculoskeletal: Yes: Other (Spinal stenosis) Endocrine: Yes: Diabetes Mellitus (Insulin dependent), Hypothyroidism - Past Surgical History Past Surgical History: Yes: Hysterectomy (BRAXTON, BSO in 1981), Oopherectomy - Alcohol/Substance Use Hx Alcohol Use: No History of Substance Use: reports: None - Smoking History Smoking history: Never smoked Have you smoked in the past 12 months: No Aproximately how many cigarettes per day: 0 - Social History Usual Living Arrangement: With Spouse ADL: Independent History of Recent Travel: No Home Medications - Allergies Allergies/Adverse Reactions: Allergies Allergy/AdvReac Type Severity Reaction Status Date / Time No Known Allergies Allergy Verified 03/07/19 12:29 - Home Medications Home Medications: Ambulatory Orders Aspirin Coated [Ecotrin -] 81 mg PO DAILY #30 tablet.ec 07/09/16 Levothyroxine [Synthroid -] 50 mcg PO DAILY #90 tablet 07/09/16 Allopurinol [Zyloprim -] 100 mg PO DAILY 10/02/17 Atorvastatin Ca [Lipitor] 20 mg PO HS 10/02/17 Gabapentin [Neurontin -] 300 mg PO HS 10/02/17 Acetaminophen [Tylenol .Extra-Strength -] 500 mg PO Q6H PRN tablet 11/12/17 Tamsulosin HCl [Flomax -] 0.4 mg PO DAILY@0830 #90 cap.er.24h 11/12/17 Bisacodyl [Bisacodyl -] 5 mg PO ASDIR 11/26/18 Carvedilol [Coreg -] 12.5 mg PO BID 11/26/18 Cinacalcet HCl [Sensipar] 30 mg PO DAILY 11/26/18 Hydralazine HCl 50 mg PO TID 11/26/18 Isosorbide Mononitrate [Imdur -] 90 mg PO DAILY 11/26/18 Latanoprost/Pf [Latanoprost 0.005% Eye Drop] 1 drp OP DAILY 11/26/18 Polyethylene Glycol 3350 [Miralax 119 gm Btl -] 17 gm PO DAILY 11/26/18 Potassium Chloride 20 meq PO BID 11/26/18 Ranitidine HCl [Zantac] 150 mg PO BID 11/26/18 Insulin (Levemir) [Levemir Vial] 18 units SQ HS units 12/08/18 Furosemide 100 mg PO BID 02/05/19 Colchicine [Colcrys] 0.6 mg PO BID cap 02/09/19 Physical Exam-Neuro Vital Signs: Vital Signs Temperature 98.2 F 03/08/19 15:23 Pulse Rate 60 03/08/19 19:54 Respiratory Rate 25 H 03/08/19 19:54 Blood Pressure 135/50 L 03/08/19 19:54 O2 Sat by Pulse Oximetry (%) 97 03/08/19 19:55 Labs: CBC, BMP 03/08/19 05:58 03/08/19 05:58 - Neuro Exam Level Of Consciousness: Yes: Alert, Oriented to Person, Oriented to Place Eyes: Yes: COLEEN Speech: Other (slow, hypophonic) Dominant Hand: Right Mini Mental Exam: Awake, alert, impaired conc/att DTR's: 0 Left Tricep, 0 Right Tricep, 0 Left Brachioradialis, 0 Right Brachioradialis, 0 Left Achilles, 0 Right Achilles, 1+ Left Bicep, 1+ Right Bicep Babinski: Absent Response to light touch: Normal Response to pain prick: Normal Motor Strength: 3/5: Left Leg, Right Leg (Tone is decreased in both legs), 4/5: Left Arm, Right Arm Gait: Other (unable to stand) Imaging - Results Cat Scan: Report Reviewed (Chronic small vessel ischemia, no acute changes.CT head) Assessment/Plan Pt. with fall that is likely due to a combination of her baseline gait d/o 2/2 spinal stenosis and metabolic abn/delirium/bilat LE swelling. She has bialt LE diminished strength which may be 2/2 spinal stenosis/deconditioning and her not making effort due to pain but need to consider ant.spinal art. territory spinal cord. ischemia. I suggest attempting to mobilize her and if not succesful than would image C/T spine with MRI. Thank you, Sheldon Hooker MD
[2019-03-08] MEDS: CHLORHEXIDINE GLUCONATE 4% CLEANSER FOR DECOLONIZATION TP SCH (21:27)
[2019-03-08] MEDS: ATORVASTATIN CA 20 MG TABLET (FP) PO SCH (21:28)
[2019-03-08] MEDS: GABAPENTIN 300 MG CAPSULE (FP) PO SCH (21:29)
[2019-03-08] MEDS: INSULIN (LEVEMIR) 100 UNITS/ML UNITS SQ SCH (21:49)
[2019-03-08] MEDS ORDERED: BISACODYL 5 MG TABLET.DR (FP) PO PRN ×2 (22:00)
[2019-03-08] MEDS ORDERED: LATANOPROST 0.005% OPHTH SOLN 2.5ML BOTTLE OU SCH (22:00)
[2019-03-08] MEDS ORDERED: POTASSIUM CHLORIDE TABS 20 MEQ TABLET.ER (FP) PO SCH (22:00)
[2019-03-09] MEDS: LATANOPROST 0.005% OPHTH SOLN 2.5ML BOTTLE OU SCH ×2 (00:16→21:22)
[2019-03-09] MEDS: MUPIROCIN 2% TOPICAL OINTMENT FOR DECOLONIZATION NS SCH ×3 (00:17→21:19)
[2019-03-09] MEDS: FUROSEMIDE 40 MG TABLET (FP) PO SCH ×2 (05:38→13:21)
[2019-03-09 06:11] LABS: BASO % 0.5 % (0-2.0); EOS % 0.2 % (0-4.5); HEMOGLOBIN 10.8 GM/dL (10.7-15.3); MCH 28.5 pg (25.7-33.7); MCHC 32.7 g/dl (32.0-36.0); MEAN CELL VOLUME 87.2 fl (80-96); MEAN PLT VOLUME 9.4 fl (7.5-11.1); MONO % 1.3 % (3.8-10.2); PLATELET COUNT 166 K/MM3 (134-434); RBC 3.78 M/mm3 (3.60-5.2); RDW 18.2 % (11.6-15.6); WHITE BLOOD COUNT 4.7 K/mm3 (4.0-10.0)
[2019-03-09] MEDS: LEVOTHYROXINE NA 50 MCG TABLET (FP) PO SCH (06:40)
[2019-03-09 07:54] LABS: ALBUMIN 3.4 g/dl (3.4-5.0); BILIRUBIN,TOTAL 0.9 mg/dL (0.2-1); BLOOD UREA NITROGEN 85.2 mg/dL (7-18); CREATININE 2.5 mg/dL (0.55-1.3); MAGNESIUM 2.7 mg/dL (1.8-2.4); PHOSPHOROUS 6.7 mg/dL (2.5-4.9); TOT PROT 6.7 g/dl (6.4-8.2)
[2019-03-09 08:31] LABS: ARTERIAL BLD GAS O2 SATURATION 96.7 % (95-98); ARTERIAL BLOOD GAS BASE EXCESS 3.1 meq/l (-2-2); ARTERIAL BLOOD GAS PCO2 58.6 mmHg (35-45); ARTERIAL BLOOD GAS PO2 91.2 mmHg (80-100); ARTERIAL BLOOD GAS pH 7.33 (7.35-7.45)
[2019-03-09 08:33] LABS: ALLENS TEST POSITIVE
[2019-03-09] MEDS: CARVEDILOL 6.25 MG TABLET (FP) PO SCH ×2 (09:54→21:20)
[2019-03-09] MEDS: TAMSULOSIN HCL 0.4 MG CAP PO SCH (09:54)
[2019-03-09] MEDS: HEPARIN NA (PORCINE) 5,000 UNITS/ML 1ML VIAL SQ SCH ×2 (09:54→21:20)
[2019-03-09] MEDS: ISOSORBIDE MONONITRATE 30 MG TAB.SR.24H (FP) PO SCH (09:55)
[2019-03-09] MEDS: ALLOPURINOL 100 MG TABLET (FP) PO SCH (09:55)
[2019-03-09] MEDS: RANITIDINE HCL 150 MG TABLET (FP) PO SCH ×2 (09:56→21:19)
[2019-03-09] MEDS: POLYETHYLENE GLYCOL 3350 119 GM BTL PO SCH (09:56)
[2019-03-09] MEDS: ASPIRIN COATED 81 MG TABLET.EC PO SCH (09:56)
--- NOTE | 2019-03-09 11:00 | PN ---
Progress Note, Physician Chief Complaint: Pt A&Ox3; anxious; wants to go home. No chest pain; on Bipap (restless, she reportedly did not have the mask on for a few hours overnight). History of Present Illness: Pt presents to the ED complaining of a two day history of worsening abdominal distention, shortness of breath and diarrhea. Denies fever or abdominal pain. History of CHF, chronically on home o2. States that she has been compliant with her lasix, and is uncertain if she has gained weight. Daughter reports that the patient has been increasingly lethargic, and is having trouble doing her adls at home. Also reports a fall at 3 am this morning. 03/07/19 13:27 - Current Medication List Current Medications: Active Medications Albuterol Sulfate (Ventolin 0.083% Nebulizer Soln -) 1 amp NEB Q6H PRN PRN Reason: SHORT OF BREATH/WHEEZING Allopurinol (Zyloprim -) 100 mg PO DAILY [facility] Last Admin: 03/09/19 09:55 Dose: 100 mg Aspirin (Ecotrin -) 81 mg PO DAILY [facility]ARY Last Admin: 03/09/19 09:56 Dose: 81 mg Atorvastatin Calcium (Lipitor -) 20 mg PO HS [facility] Last Admin: 03/08/19 21:28 Dose: 20 mg Bisacodyl (Dulcolax -) 5 mg PO HS PRN PRN Reason: CONSTIPATION Carvedilol (Coreg -) 12.5 mg PO BID DARY Last Admin: 03/09/19 09:54 Dose: 12.5 mg Chlorhexidine Gluconate (Hibiclens For Decolonization -) 1 applic TP HS [facility] Last Admin: 03/08/19 21:27 Dose: 1 applic Furosemide (Lasix -) 80 mg PO BID@0600,1400 [facility] Last Admin: 03/09/19 05:38 Dose: 80 mg Gabapentin (Neurontin -) 300 mg PO HS [facility] Last Admin: 03/08/19 21:29 Dose: 300 mg Heparin Sodium (Porcine) (Heparin -) 5,000 unit SQ BID [facility] Last Admin: 03/09/19 09:54 Dose: 5,000 unit Insulin Detemir (Levemir Vial) 18 units SQ HS [facility] Last Admin: 03/08/19 21:49 Dose: 18 units Isosorbide Mononitrate (Imdur -) 90 mg PO DAILY [facility] Last Admin: 03/09/19 09:55 Dose: 90 mg Latanoprost (Xalatan 0.005% Eye Drops -) 1 drop OU HS [facility] Last Admin: 03/09/19 00:16 Dose: 1 drop Levothyroxine Sodium (Synthroid -) 50 mcg PO AM [facility] Last Admin: 03/09/19 06:40 Dose: 50 mcg Mupirocin (Bactroban Ointment (For Decolonization) -) 1 applic NS BID [facility] Stop: 03/13/19 21:59 Last Admin: 03/09/19 00:17 Dose: Not Given Polyethylene Glycol (Miralax (For Daily Use) -) 17 gm PO DAILY [facility] Last Admin: 03/09/19 09:56 Dose: Not Given Ranitidine HCl (Zantac -) 150 mg PO BID [facility] Last Admin: 03/09/19 09:56 Dose: 150 mg Tamsulosin HCl (Flomax -) 0.4 mg PO DAILY@0830 [facility] Last Admin: 03/09/19 09:54 Dose: 0.4 mg - Objective Vital Signs: Vital Signs Temperature 97.3 F L 03/09/19 06:00 Pulse Rate 60 03/09/19 10:00 Respiratory Rate 16 03/09/19 10:00 Blood Pressure 116/42 L 03/09/19 10:00 O2 Sat by Pulse Oximetry (%) 99 03/09/19 08:36 Constitutional: Yes: Anxious Eyes: Yes: WNL HENT: Yes: WNL Neck: Yes: WNL Cardiovascular: Yes: Pulse Irregular, S1, S2 Respiratory: Yes: Diminished Gastrointestinal: Yes: Soft ...Rectal Exam: Yes: Deferred Genitourinary: No: Anuria Breast(s): Yes: WNL Musculoskeletal: Yes: Muscle Weakness Extremities: Yes: Cool Edema: No Peripheral Pulses WNL: Yes Integumentary: Yes: WNL Neurological: Yes: Alert, Oriented Psychiatric: Yes: Alert, Oriented Labs: CBC, BMP 03/09/19 05:00 03/09/19 05:00 Abnormal Lab Results 03/09/19 03/09/19 03/10/19 13:10 15:28 05:00 RBC 3.37 L Hgb 9.6 L Hct 29.1 L RDW 18.5 H Sodium 135 L Potassium 5.7 H Chloride 96 L Carbon Dioxide Anion Gap BUN 98.8 H Creatinine 2.5 H Random Glucose 369 H Hemoglobin A1c % 7.7 H Magnesium AST ALT Alkaline Phosphatase Total Protein Albumin 03/10/19 05:00 RBC Hgb Hct RDW Sodium Potassium Chloride 96 L Carbon Dioxide 34 H Anion Gap 7 L BUN 106.0 H* Creatinine 2.4 H Random Glucose 232 H Hemoglobin A1c % Magnesium 2.7 H AST 79 H ALT 84 H Alkaline Phosphatase 126 H Total Protein 6.1 L Albumin 3.1 L - ....Imaging Chest X-ray: Image Reviewed Other: Image Reviewed Problem List - Problems (1) Acute on chronic respiratory failure with hypercapnia Assessment/Plan: ABG noted: improvement in pCO2, despite being of Bipap for a few hours overnight. On O2, BIpap, bronchodilators, antibitoics per pumonologist. Continue treatment of diastolic HF: on PO furosemide (potassium held due to development of hyperkalemia), Imdur, carvedilol. F/u BUN/Cr (renal f/u noted); electrolytes, Is and Os, dailoy weight. Code(s): J96.22 - ACUTE AND CHRONIC RESPIRATORY FAILURE WITH HYPERCAPNIA (2) Systolic murmur Code(s): R01.1 - CARDIAC MURMUR, UNSPECIFIED (3) Tachypnea Code(s): R06.82 - TACHYPNEA, NOT ELSEWHERE CLASSIFIED (4) ANDRÉS (acute kidney injury) Code(s): N17.9 - ACUTE KIDNEY FAILURE, UNSPECIFIED (5) Hypertension Code(s): I10 - ESSENTIAL (PRIMARY) HYPERTENSION Qualifiers: Hypertension type: unspecified Qualified Code(s): I10 - Essential (primary ) hypertension (6) Diabetes mellitus Assessment/Plan: f/u HGBA1c. Code(s): E11.9 - TYPE 2 DIABETES MELLITUS WITHOUT COMPLICATIONS Qualifiers: Diabetes mellitus type: other specified (including JAVAD) Diabetes mellitus prison insulin use: without prison use Diabetes mellitus complication status: without complication Qualified Code(s): E13.9 - Other specified diabetes mellitus without complications (7) Hypothyroidism Assessment/Plan: TSH within normal limits; on Synthroid. Code(s): E03.9 - HYPOTHYROIDISM, UNSPECIFIED Qualifiers: Hypothyroidism type: unspecified Qualified Code(s): E03.9 - Hypothyroidism , unspecified Assessment/Plan CCU time spent: 40 minutes.
[2019-03-09 11:45] LABS: ANISOCYTOSIS 3+; MACROCYTOSIS 0; OVALOCYTE 1+; PLATELET ESTIMATE DECREASED
--- NOTE | 2019-03-09 13:56 | PN ---
Progress Note, Physician History of Present Illness: Pt in ICU, on BIPAP Pt w/o CP, palpitation, Abd pain. Pt with left foot pain since fell at home. - Current Medication List Current Medications: Active Medications Albuterol Sulfate (Ventolin 0.083% Nebulizer Soln -) 1 amp NEB Q6H PRN PRN Reason: SHORT OF BREATH/WHEEZING Allopurinol (Zyloprim -) 100 mg PO DAILY [facility] Last Admin: 03/09/19 09:55 Dose: 100 mg Aspirin (Ecotrin -) 81 mg PO DAILY [facility] Last Admin: 03/09/19 09:56 Dose: 81 mg Atorvastatin Calcium (Lipitor -) 20 mg PO HS [facility] Last Admin: 03/08/19 21:28 Dose: 20 mg Bisacodyl (Dulcolax -) 5 mg PO HS PRN PRN Reason: CONSTIPATION Carvedilol (Coreg -) 12.5 mg PO BID [facility] Last Admin: 03/09/19 09:54 Dose: 12.5 mg Chlorhexidine Gluconate (Hibiclens For Decolonization -) 1 applic TP HS [facility] Last Admin: 03/08/19 21:27 Dose: 1 applic Furosemide (Lasix -) 80 mg PO BID@0600,1400 [facility] Last Admin: 03/09/19 13:21 Dose: 80 mg Gabapentin (Neurontin -) 300 mg PO HS [facility] Last Admin: 03/08/19 21:29 Dose: 300 mg Heparin Sodium (Porcine) (Heparin -) 5,000 unit SQ BID [facility] Last Admin: 03/09/19 09:54 Dose: 5,000 unit Insulin Detemir (Levemir Vial) 18 units SQ HS [facility] Last Admin: 03/08/19 21:49 Dose: 18 units Isosorbide Mononitrate (Imdur -) 90 mg PO DAILY [facility] Last Admin: 03/09/19 09:55 Dose: 90 mg Latanoprost (Xalatan 0.005% Eye Drops -) 1 drop OU HS [facility] Last Admin: 03/09/19 00:16 Dose: 1 drop Levothyroxine Sodium (Synthroid -) 50 mcg PO AM [facility] Last Admin: 03/09/19 06:40 Dose: 50 mcg Mupirocin (Bactroban Ointment (For Decolonization) -) 1 applic NS BID [facility] Stop: 03/13/19 21:59 Last Admin: 03/09/19 11:58 Dose: 1 applic Polyethylene Glycol (Miralax (For Daily Use) -) 17 gm PO DAILY [facility] Last Admin: 03/09/19 09:56 Dose: Not Given Ranitidine HCl (Zantac -) 150 mg PO BID [facility] Last Admin: 03/09/19 09:56 Dose: 150 mg Tamsulosin HCl (Flomax -) 0.4 mg PO DAILY@0830 [facility] Last Admin: 03/09/19 09:54 Dose: 0.4 mg - Objective Vital Signs: Vital Signs Temperature 98.8 F 03/09/19 12:00 Pulse Rate 65 03/09/19 12:00 Respiratory Rate 18 03/09/19 12:00 Blood Pressure 136/45 L 03/09/19 12:00 O2 Sat by Pulse Oximetry (%) 99 03/09/19 09:00 Constitutional: Yes: No Distress, Calm, Other (on BIPAP) Eyes: Yes: EOM Intact. No: Diplopia, Ptosis HENT: Yes: Normocephalic, Rhinnorhea Neck: Yes: Trachea Midline. No: Lymphadenopathy Cardiovascular: Yes: Regular Rate and Rhythm, S1, S2 Respiratory: Yes: Regular, Other (decreased BS bilat, cracbles at bases). No: Rhonchi, Wheezes Gastrointestinal: Yes: Normal Bowel Sounds, Soft, Abdomen, Obese. No: Tenderness Extremities: Yes: Other (left 3 cm soft mass, painful to touch, over 3-4 distal metatarsal). No: Cool, Cyanosis Edema: No Integumentary: Yes: Bruising (over the left 3-4 distal metatarsal). No: Erythema Neurological: Yes: Alert, Oriented, Other (symmetric motor in UE/ LE/ face) Psychiatric: Yes: Alert, Oriented Labs: CBC, BMP 03/09/19 05:00 03/09/19 05:00 - ....Imaging Chest X-ray: Report Reviewed, Image Reviewed Problem List - Problems (1) Acute on chronic respiratory failure with hypoxia and hypercapnia Code(s): J96.21 - ACUTE AND CHRONIC RESPIRATORY FAILURE WITH HYPOXIA; J96.22 - ACUTE AND CHRONIC RESPIRATORY FAILURE WITH HYPERCAPNIA (2) ANDRÉS (acute kidney injury) Code(s): N17.9 - ACUTE KIDNEY FAILURE, UNSPECIFIED (3) CRF (chronic renal failure) Code(s): N18.9 - CHRONIC KIDNEY DISEASE, UNSPECIFIED Qualifiers: Chronic kidney disease stage: stage 4 (severe) Qualified Code(s): N18.4 - Chronic kidney disease, stage 4 (severe) (4) Hyperkalemia Code(s): E87.5 - HYPERKALEMIA (5) Fall Code(s): W19.XXXA - UNSPECIFIED FALL, INITIAL ENCOUNTER Qualifiers: Encounter type: initial encounter Qualified Code(s): W19.XXXA - Unspecified fall, initial encounter (6) CAD (coronary artery disease) Code(s): I25.10 - ATHSCL HEART DISEASE OF [place] CORONARY ARTERY W/O ANG PCTRS Qualifiers: Coronary Disease-Associated Artery/Lesion type: [place] artery [place] vs. 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 CCM, Cardio, Neuro, Renal consults are appreciated DVT proph AM labs Pt's care was d/w pt's nurse. Time spent for pt's care: 40 minutes
--- NOTE | 2019-03-09 14:02 | CONSULT ---
Consult - text type - Consultation Consultation Note: PULMONARY/CRITICAL CARE CONSULT: HPI: Briefly, an 83 y/o F with diastolic HF, CKD, CAD, HTN, OA who has a baseline Oxygen requirement of 2-3L. She presented to the ED with fatigue, SOB and diarrhea. ABG showed hypercapnic respiratory failure, and she was lethargic. She was placed on NIPPV, given a dose of Methylpred and IV Lasix with improvement. She has no infectious prodrome and no infiltrate on CXR. Stool studies are negative as well. There are no PFTs in our system. She has not had a sleep study either, but suspect SHANEKA/OSH. She is a chronic retainer with a serum CO2 of 33 on admission. Her respiratory and mental status improved throughout the night. She is able to tolerate breaks from NIPPV today - transitioning to RI. Current Medications Albuterol Sulfate (Ventolin 0.083% Nebulizer Soln -) 1 amp NEB Q6H PRN PRN Reason: SHORT OF BREATH/WHEEZING Allopurinol (Zyloprim -) 100 mg PO DAILY [facility] Last Admin: 03/09/19 09:55 Dose: 100 mg Aspirin (Ecotrin -) 81 mg PO DAILY [facility] Last Admin: 03/09/19 09:56 Dose: 81 mg Atorvastatin Calcium (Lipitor -) 20 mg PO HS [facility] Last Admin: 03/08/19 21:28 Dose: 20 mg Bisacodyl (Dulcolax -) 5 mg PO HS PRN PRN Reason: CONSTIPATION Carvedilol (Coreg -) 12.5 mg PO BID [facility] Last Admin: 03/09/19 09:54 Dose: 12.5 mg Chlorhexidine Gluconate (Hibiclens For Decolonization -) 1 applic TP HS [facility] Last Admin: 03/08/19 21:27 Dose: 1 applic Furosemide (Lasix -) 80 mg PO BID@0600,1400 [facility] Last Admin: 03/09/19 13:21 Dose: 80 mg Gabapentin (Neurontin -) 300 mg PO HS [facility] Last Admin: 03/08/19 21:29 Dose: 300 mg Heparin Sodium (Porcine) (Heparin -) 5,000 unit SQ BID [facility] Last Admin: 03/09/19 09:54 Dose: 5,000 unit Insulin Detemir (Levemir Vial) 18 units SQ HS [facility] Last Admin: 03/08/19 21:49 Dose: 18 units Isosorbide Mononitrate (Imdur -) 90 mg PO DAILY [facility] Last Admin: 03/09/19 09:55 Dose: 90 mg Latanoprost (Xalatan 0.005% Eye Drops -) 1 drop OU HS [facility] Last Admin: 03/09/19 00:16 Dose: 1 drop Levothyroxine Sodium (Synthroid -) 50 mcg PO AM [facility] Last Admin: 03/09/19 06:40 Dose: 50 mcg Mupirocin (Bactroban Ointment (For Decolonization) -) 1 applic NS BID [facility] Stop: 03/13/19 21:59 Last Admin: 03/09/19 11:58 Dose: 1 applic Polyethylene Glycol (Miralax (For Daily Use) -) 17 gm PO DAILY [facility] Last Admin: 03/09/19 09:56 Dose: Not Given Ranitidine HCl (Zantac -) 150 mg PO BID [facility] Last Admin: 03/09/19 09:56 Dose: 150 mg Tamsulosin HCl (Flomax -) 0.4 mg PO DAILY@0830 [facility] Last Admin: 03/09/19 09:54 Dose: 0.4 mg Vital Signs Temp 98.8 F 03/09/19 12:00 Pulse 65 03/09/19 12:00 Resp 18 03/09/19 12:00 BP 136/45 L 03/09/19 12:00 Pulse Ox 99 03/09/19 09:00 Intake & Output 03/08/19 03/09/19 03/09/19 18:59 06:59 18:59 Intake Total 250 250 Output Total 0 Balance 250 250 Weight 73.936 kg Intake: Oral 250 250 Output: Urine 0 Void 0 Other: Voiding Method Diaper Diaper Diaper # Unmeasured Voids Void 3 Bowel Movement Yes # Bowel Movements 3 EXAM: gen: awake, alert, oriented HEENT: PERRL chest: b/l crackles heart: RRR abd: obese, soft, non-tender ext: LE edema CBC, BMP 03/09/19 05:00 03/09/19 05:00 ASSESSMENT/PLAN: Acute on chronic hypercapnic respiratory failure CHF CKD CAD HTN OA -Continue NIPPV with breaks on NC -Continue Lasix - may need a few IV doses -Stop steroids -Nebs PRN -Follow up cultures - do not think she is infected -DVT PPx Thank you for this interesting consult Critical Care Time 45min [facility] 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
--- NOTE | 2019-03-09 15:13 | PN ---
Progress Note, Physician History of Present Illness: Pt seen and examined at bedside. SHe is now in the ICU. She does get shortness of breath with minimal exertion. - Current Medication List Current Medications: Active Medications Albuterol Sulfate (Ventolin 0.083% Nebulizer Soln -) 1 amp NEB Q6H PRN PRN Reason: SHORT OF BREATH/WHEEZING Allopurinol (Zyloprim -) 100 mg PO DAILY [facility] Last Admin: 03/09/19 09:55 Dose: 100 mg Aspirin (Ecotrin -) 81 mg PO DAILY [facility] Last Admin: 03/09/19 09:56 Dose: 81 mg Atorvastatin Calcium (Lipitor -) 20 mg PO HS [facility] Last Admin: 03/08/19 21:28 Dose: 20 mg Bisacodyl (Dulcolax -) 5 mg PO HS PRN PRN Reason: CONSTIPATION Carvedilol (Coreg -) 12.5 mg PO BID [facility] Last Admin: 03/09/19 09:54 Dose: 12.5 mg Chlorhexidine Gluconate (Hibiclens For Decolonization -) 1 applic TP HS [facility] Last Admin: 03/08/19 21:27 Dose: 1 applic Furosemide (Lasix -) 80 mg PO BID@0600,1400 [facility] Last Admin: 03/09/19 13:21 Dose: 80 mg Gabapentin (Neurontin -) 300 mg PO HS [facility] Last Admin: 03/08/19 21:29 Dose: 300 mg Heparin Sodium (Porcine) (Heparin -) 5,000 unit SQ BID [facility] Last Admin: 03/09/19 09:54 Dose: 5,000 unit Insulin Detemir (Levemir Vial) 18 units SQ HS [facility] Last Admin: 03/08/19 21:49 Dose: 18 units Isosorbide Mononitrate (Imdur -) 90 mg PO DAILY [facility] Last Admin: 03/09/19 09:55 Dose: 90 mg Latanoprost (Xalatan 0.005% Eye Drops -) 1 drop OU HS [facility] Last Admin: 03/09/19 00:16 Dose: 1 drop Levothyroxine Sodium (Synthroid -) 50 mcg PO AM [facility] Last Admin: 03/09/19 06:40 Dose: 50 mcg Mupirocin (Bactroban Ointment (For Decolonization) -) 1 applic NS BID [facility] Stop: 03/13/19 21:59 Last Admin: 03/09/19 11:58 Dose: 1 applic Polyethylene Glycol (Miralax (For Daily Use) -) 17 gm PO DAILY [facility] Last Admin: 03/09/19 09:56 Dose: Not Given Ranitidine HCl (Zantac -) 150 mg PO BID [facility] Last Admin: 03/09/19 09:56 Dose: 150 mg Tamsulosin HCl (Flomax -) 0.4 mg PO DAILY@0830 [facility] Last Admin: 03/09/19 09:54 Dose: 0.4 mg - Objective Vital Signs: Vital Signs Temperature 98.8 F 03/09/19 12:00 Pulse Rate 64 03/09/19 14:00 Respiratory Rate 20 03/09/19 14:00 Blood Pressure 124/48 L 03/09/19 14:00 O2 Sat by Pulse Oximetry (%) 99 03/09/19 09:00 Constitutional: Yes: Calm Eyes: Yes: Conjunctiva Clear HENT: Yes: Atraumatic Cardiovascular: Yes: S1, S2 Respiratory: Yes: On Nasal O2, Rhonchi Gastrointestinal: Yes: Soft, Abdomen, Obese Genitourinary: Yes: Incontinence Musculoskeletal: Yes: Muscle Weakness Edema: Yes Edema: LLE: 2+, RLE: 2+ Neurological: Yes: Oriented Psychiatric: Yes: Oriented Labs: CBC, BMP 03/09/19 05:00 03/09/19 05:00 - ....Imaging Chest X-ray: Report Reviewed Problem List - Problems (1) CHF exacerbation Code(s): I50.9 - HEART FAILURE, UNSPECIFIED Qualifiers: Heart failure type: unspecified Qualified Code(s): I50.9 - Heart failure, unspecified (2) Diarrhea Code(s): R19.7 - [place], UNSPECIFIED (3) CRF (chronic renal failure) Code(s): N18.9 - CHRONIC KIDNEY DISEASE, UNSPECIFIED Qualifiers: Chronic kidney disease stage: stage 4 (severe) Qualified Code(s): N18.4 - Chronic kidney disease, stage 4 (severe) Assessment/Plan Current Medications Generic Name Dose Route Start Last Admin Trade Name Freq PRN Reason Stop Dose Admin Albuterol Sulfate 1 amp 03/08/19 19:37 Ventolin 0.083% Nebulizer Soln - NEB Q6H PRN SHORT OF BREATH/WHEEZING Allopurinol 100 mg 03/09/19 10:00 03/09/19 09:55 Zyloprim - PO 100 mg DAILY [facility] Administration Aspirin 81 mg 03/09/19 10:00 03/09/19 09:56 Ecotrin - PO 81 mg DAILY [facility] Administration Atorvastatin Calcium 20 mg 03/08/19 22:00 03/08/19 21:28 Lipitor - PO 20 mg HS [facility] Administration Bisacodyl 5 mg 03/08/19 22:00 Dulcolax - PO HS PRN CONSTIPATION Carvedilol 12.5 mg 03/08/19 22:00 03/09/19 09:54 Coreg - PO 12.5 mg BID [facility] Administration Chlorhexidine Gluconate 1 applic 03/08/19 22:00 03/08/19 21:27 Hibiclens For Decolonization - TP 1 applic HS [facility] Administration Furosemide 80 mg 03/09/19 06:00 03/09/19 13:21 Lasix - PO 80 mg BID@0600,1400 [facility] Administration Gabapentin 300 mg 03/08/19 22:00 03/08/19 21:29 Neurontin - PO 300 mg HS [facility] Administration Heparin Sodium (Porcine) 5,000 unit 03/08/19 22:00 03/09/19 09:54 Heparin - SQ 5,000 unit BID [facility] Administration Insulin Detemir 18 units 03/08/19 22:00 03/08/19 21:49 Levemir Vial SQ 18 units HS [facility] Administration Isosorbide Mononitrate 90 mg 03/09/19 10:00 03/09/19 09:55 Imdur - PO 90 mg DAILY [facility] Administration Latanoprost 1 drop 03/08/19 22:00 03/09/19 00:16 Xalatan 0.005% Eye Drops - OU 1 drop HS [facility] Administration Levothyroxine Sodium 50 mcg 03/09/19 07:00 03/09/19 06:40 Synthroid - PO 50 mcg AM [facility] Administration Mupirocin 1 applic 03/08/19 22:00 03/09/19 11:58 Bactroban Ointment (For Decolonization) - NS 03/13/19 21:59 1 applic BID [facility] Administration Polyethylene Glycol 17 gm 03/09/19 10:00 03/09/19 09:56 Miralax (For Daily Use) - PO Not Given DAILY [facility] Ranitidine HCl 150 mg 03/08/19 22:00 09/21/19 09:56 Zantac - PO 150 mg BID [facility] Administration Tamsulosin HCl 0.4 mg 03/09/19 08:30 03/09/19 09:54 Flomax - PO 0.4 mg DAILY@0830 [facility] Administration 1. CKD stage 4 2. Fall 3. Diarrhea 4. CHF with diastolic dysfunction 5. Anemia 6. Hypertension Plan - cont lasix - d/c potassium supplements - give lokelma for hyperkalemia - monitor renal function - check renal ultrasound - Fall precautions - sensipar on hold
[2019-03-09] MEDS ORDERED: SODIUM ZIRCONIUM CYCLOSILICATE (LOKELMA) 5 GM PACKET PO ONE (15:15)
[2019-03-09 16:12] LABS: BLOOD UREA NITROGEN 98.8 mg/dL (7-18); CALCIUM 9.5 mg/dL (8.5-10.1); CREATININE 2.5 mg/dL (0.55-1.3); POTASSIUM 5.7 mmol/L (3.5-5.1)
[2019-03-09] MEDS: INSULIN SLIDING SCALE (NOVOLOG) 1 VIAL SQ SCH ×2 (17:47→21:30)
[2019-03-09] MEDS: ATORVASTATIN CA 20 MG TABLET (FP) PO SCH (21:19)
[2019-03-09] MEDS: SYSTANE ULTRA EYE OU SCH (21:20)
[2019-03-09] MEDS: GABAPENTIN 300 MG CAPSULE (FP) PO SCH (21:20)
[2019-03-09] MEDS: CHLORHEXIDINE GLUCONATE 4% CLEANSER FOR DECOLONIZATION TP SCH (21:20)
[2019-03-09] MEDS: INSULIN (LEVEMIR) 100 UNITS/ML UNITS SQ SCH (21:30)
[2019-03-09] MEDS: LIDOCAINE PATCH REMOVAL MC SCH (22:57)
[2019-03-10] MEDS: FUROSEMIDE 40 MG TABLET (FP) PO SCH ×2 (05:52→14:27)
[2019-03-10] MEDS: INSULIN SLIDING SCALE (NOVOLOG) 1 VIAL SQ SCH ×4 (06:03→21:33)
[2019-03-10] MEDS: LEVOTHYROXINE NA 50 MCG TABLET (FP) PO SCH (06:03)
[2019-03-10 06:08] LABS: HEMATOCRIT 29.1 % (32.4-45.2); HEMOGLOBIN 9.6 GM/dL (10.7-15.3); MCH 28.6 pg (25.7-33.7); MCHC 33.1 g/dl (32.0-36.0); MEAN CELL VOLUME 86.3 fl (80-96); MEAN PLT VOLUME 9.5 fl (7.5-11.1); PLATELET COUNT 177 K/MM3 (134-434); RBC 3.37 M/mm3 (3.60-5.2); RDW 18.5 % (11.6-15.6); WHITE BLOOD COUNT 7.9 K/mm3 (4.0-10.0)
[2019-03-10 06:39] LABS: ALBUMIN 3.1 g/dl (3.4-5.0); BILIRUBIN,TOTAL 0.7 mg/dL (0.2-1); CALCIUM 9.3 mg/dL (8.5-10.1); CREATININE 2.4 mg/dL (0.55-1.3); MAGNESIUM 2.7 mg/dL (1.8-2.4); POTASSIUM 4.7 mmol/L (3.5-5.1); TOT PROT 6.1 g/dl (6.4-8.2)
--- NOTE | 2019-03-10 09:31 | PN ---
Progress Note (short form) - Note Progress Note: PULMONARY/CRITICAL CARE PROGRESS NOTE: SUBJECTIVE: Pt seen and examined in the ICU. On and off NIPPV, but breathing overall improved. Otherwise stable OBJECTIVE: Current Medications Albuterol Sulfate (Ventolin 0.083% Nebulizer Soln -) 1 amp NEB Q6H PRN PRN Reason: SHORT OF BREATH/WHEEZING Allopurinol (Zyloprim -) 100 mg PO DAILY [facility] Last Admin: 03/09/19 09:55 Dose: 100 mg Aspirin (Ecotrin -) 81 mg PO DAILY [facility] Last Admin: 03/09/19 09:56 Dose: 81 mg Atorvastatin Calcium (Lipitor -) 20 mg PO HS [facility] Last Admin: 03/09/19 21:19 Dose: 20 mg Bisacodyl (Dulcolax -) 5 mg PO HS PRN PRN Reason: CONSTIPATION Carvedilol (Coreg -) 12.5 mg PO BID [facility] Last Admin: 03/09/19 21:20 Dose: 12.5 mg Chlorhexidine Gluconate (Hibiclens For Decolonization -) 1 applic TP HS [facility] Last Admin: 03/09/19 21:20 Dose: 1 applic Furosemide (Lasix -) 80 mg PO BID@0600,1400 [facility] Last Admin: 03/10/19 05:52 Dose: 80 mg Gabapentin (Neurontin -) 300 mg PO HS [facility] Last Admin: 03/09/19 21:20 Dose: 300 mg Heparin Sodium (Porcine) (Heparin -) 5,000 unit SQ BID [facility] Last Admin: 03/09/19 21:20 Dose: 5,000 unit Insulin Aspart (Novolog Vial Sliding Scale -) 1 vial SQ [facility]; Protocol Last Admin: 03/10/19 06:03 Dose: 4 units Insulin Detemir (Levemir Vial) 18 units SQ [facility] Last Admin: 03/09/19 21:30 Dose: 18 units Isosorbide Mononitrate (Imdur -) 90 mg PO DAILY [facility] Last Admin: 03/09/19 09:55 Dose: 90 mg Latanoprost (Xalatan 0.005% Eye Drops -) 1 drop OU HS [facility] Last Admin: 03/09/19 21:22 Dose: 1 drop Levothyroxine Sodium (Synthroid -) 50 mcg PO AM [facility] Last Admin: 03/10/19 06:03 Dose: 50 mcg Lidocaine (Lidoderm Patch -) 1 patch TP DAILY PRN PRN Reason: LOWER BACK PAIN Miscellaneous (Lidoderm Patch Removal) 1 each MC DAILY@2200 [facility] Last Admin: 03/09/19 22:57 Dose: Not Given Mupirocin (Bactroban Ointment (For Decolonization) -) 1 applic NS BID [facility] Stop: 03/13/19 21:59 Last Admin: 03/09/19 21:19 Dose: 1 applic Non-Formulary Med ( Systane Ultra Eye Drops) 1 each OU BID [facility] Last Admin: 03/09/19 21:20 Dose: 1 each Polyethylene Glycol (Miralax (For Daily Use) -) 17 gm PO DAILY [facility] Last Admin: 03/09/19 09:56 Dose: Not Given Ranitidine HCl (Zantac -) 150 mg PO BID [facility] Last Admin: 03/09/19 21:19 Dose: 150 mg Tamsulosin HCl (Flomax -) 0.4 mg PO DAILY@0830 [facility] Last Admin: 03/09/19 09:54 Dose: 0.4 mg Vital Signs Temp 98.6 F 03/10/19 06:00 Pulse 55 L 03/10/19 08:41 Resp 18 03/10/19 08:00 BP 123/45 L 03/10/19 08:00 Pulse Ox 100 03/10/19 09:00 Intake & Output 03/09/19 03/10/19 03/10/19 18:59 06:59 18:59 Intake Total 480 250 Output Total 3 Balance 477 250 Weight 74.162 kg Intake: Oral 480 250 Output: Urine 3 Void 3 Other: Voiding Method Diaper Diaper Diaper # Unmeasured Voids Void 2 Bowel Movement Yes # Bowel Movements 2 EXAM: gen: awake, alert, oriented HEENT: PERRL chest: b/l crackles heart: RRR abd: obese, soft, non-tender ext: LE edema CBC, BMP 03/10/19 05:00 03/10/19 05:00 ASSESSMENT/PLAN: Acute on chronic hypercapnic respiratory failure CHF CKD CAD HTN OA -Continue NIPPV with breaks on NC -Continue Lasix - may need a few IV doses -Stop steroids -Nebs PRN -Follow up cultures -DVT PPx Thank you for this interesting consult 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
[2019-03-10] MEDS: HEPARIN NA (PORCINE) 5,000 UNITS/ML 1ML VIAL SQ SCH ×2 (10:03→21:31)
[2019-03-10] MEDS: TAMSULOSIN HCL 0.4 MG CAP PO SCH (10:03)
[2019-03-10] MEDS: ISOSORBIDE MONONITRATE 30 MG TAB.SR.24H (FP) PO SCH (10:04)
[2019-03-10] MEDS: ASPIRIN COATED 81 MG TABLET.EC PO SCH (10:05)
[2019-03-10] MEDS: RANITIDINE HCL 150 MG TABLET (FP) PO SCH ×2 (10:05→21:31)
[2019-03-10] MEDS: CARVEDILOL 6.25 MG TABLET (FP) PO SCH ×2 (10:05→21:31)
[2019-03-10] MEDS: ALLOPURINOL 100 MG TABLET (FP) PO SCH (10:05)
[2019-03-10] MEDS: MUPIROCIN 2% TOPICAL OINTMENT FOR DECOLONIZATION NS SCH ×2 (10:06→22:02)
[2019-03-10] MEDS: SYSTANE ULTRA EYE OU SCH ×2 (10:07→22:03)
[2019-03-10] MEDS: POLYETHYLENE GLYCOL 3350 119 GM BTL PO SCH (10:07)
--- NOTE | 2019-03-10 12:52 | PN ---
Progress Note, Physician History of Present Illness: Pt in ICU, off BIPAP this AM Pt w/o CP, palpitation, Abd pain. - Current Medication List Current Medications: Active Medications Albuterol Sulfate (Ventolin 0.083% Nebulizer Soln -) 1 amp NEB Q6H PRN PRN Reason: SHORT OF BREATH/WHEEZING Allopurinol (Zyloprim -) 100 mg PO DAILY [facility] Last Admin: 03/10/19 10:05 Dose: 100 mg Aspirin (Ecotrin -) 81 mg PO DAILY [facility] Last Admin: 03/10/19 10:05 Dose: 81 mg Atorvastatin Calcium (Lipitor -) 20 mg PO HS [facility] Last Admin: 03/09/19 21:19 Dose: 20 mg Bisacodyl (Dulcolax -) 5 mg PO HS PRN PRN Reason: CONSTIPATION Carvedilol (Coreg -) 12.5 mg PO BID [facility] Last Admin: 03/10/19 10:05 Dose: 12.5 mg Chlorhexidine Gluconate (Hibiclens For Decolonization -) 1 applic TP [facility] Last Admin: 03/09/19 21:20 Dose: 1 applic Furosemide (Lasix -) 80 mg PO BID@0600,1400 [facility] Last Admin: 03/10/19 05:52 Dose: 80 mg Gabapentin (Neurontin -) 300 mg PO [facility] Last Admin: 03/09/19 21:20 Dose: 300 mg Heparin Sodium (Porcine) (Heparin -) 5,000 unit SQ BID [facility] Last Admin: 03/10/19 10:03 Dose: 5,000 unit Insulin Aspart (Novolog Vial Sliding Scale -) 1 vial SQ [facility]; Protocol Last Admin: 03/10/19 12:45 Dose: Not Given Insulin Detemir (Levemir Vial) 18 units SQ [facility] Last Admin: 03/09/19 21:30 Dose: 18 units Isosorbide Mononitrate (Imdur -) 90 mg PO DAILY [facility] Last Admin: 03/10/19 10:04 Dose: 90 mg Latanoprost (Xalatan 0.005% Eye Drops -) 1 drop OU HS [facility] Last Admin: 03/09/19 21:22 Dose: 1 drop Levothyroxine Sodium (Synthroid -) 50 mcg PO AM [facility] Last Admin: 03/10/19 06:03 Dose: 50 mcg Lidocaine (Lidoderm Patch -) 1 patch TP DAILY PRN PRN Reason: LOWER BACK PAIN Miscellaneous (Lidoderm Patch Removal) 1 each MC DAILY@2200 [facility] Last Admin: 03/09/19 22:57 Dose: Not Given Mupirocin (Bactroban Ointment (For Decolonization) -) 1 applic NS BID [facility] Stop: 03/13/19 21:59 Last Admin: 03/10/19 10:06 Dose: 1 applic Non-Formulary Med ( Systane Ultra Eye Drops) 1 each OU BID [facility] Last Admin: 03/10/19 10:07 Dose: 1 each Polyethylene Glycol (Miralax (For Daily Use) -) 17 gm PO DAILY [facility] Last Admin: 03/10/19 10:07 Dose: Not Given Ranitidine HCl (Zantac -) 150 mg PO BID [facility] Last Admin: 03/10/19 10:05 Dose: 150 mg Tamsulosin HCl (Flomax -) 0.4 mg PO DAILY@0830 [facility] Last Admin: 03/10/19 10:03 Dose: 0.4 mg - Objective Vital Signs: Vital Signs Temperature 98.6 F 03/10/19 06:00 Pulse Rate 69 03/10/19 10:00 Respiratory Rate 21 H 03/10/19 10:00 Blood Pressure 117/42 L 03/10/19 10:00 O2 Sat by Pulse Oximetry (%) 100 03/10/19 09:00 Constitutional: Yes: No Distress, Calm Cardiovascular: Yes: Regular Rate and Rhythm, S1, S2 Respiratory: Yes: Regular, CTA Bilaterally Gastrointestinal: Yes: Normal Bowel Sounds, Soft, Tenderness Edema: No Neurological: Yes: Alert, Oriented Labs: CBC, BMP 03/10/19 05:00 03/10/19 05:00 Problem List - Problems (1) Acute on chronic respiratory failure with hypoxia and hypercapnia Code(s): J96.21 - ACUTE AND CHRONIC RESPIRATORY FAILURE WITH HYPOXIA; J96.22 - ACUTE AND CHRONIC RESPIRATORY FAILURE WITH HYPERCAPNIA (2) ANDRÉS (acute kidney injury) Code(s): N17.9 - ACUTE KIDNEY FAILURE, UNSPECIFIED (3) CRF (chronic renal failure) Code(s): N18.9 - CHRONIC KIDNEY DISEASE, UNSPECIFIED Qualifiers: Chronic kidney disease stage: stage 4 (severe) Qualified Code(s): N18.4 - Chronic kidney disease, stage 4 (severe) (4) Hyperkalemia Code(s): E87.5 - HYPERKALEMIA (5) Fall Code(s): W19.XXXA - UNSPECIFIED FALL, INITIAL ENCOUNTER Qualifiers: Encounter type: initial encounter Qualified Code(s): W19.XXXA - Unspecified fall, initial encounter (6) CAD (coronary artery disease) Code(s): I25.10 - ATHSCL HEART DISEASE OF [place] CORONARY ARTERY W/O ANG PCTRS Qualifiers: Coronary Disease-Associated Artery/Lesion type: [place] artery [place] vs. 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 Pt's condition was d/w Dr. Carmona and Dr. Linton ( at bedside) No Abtx for now. On Lasix, to decreased to Daily CCM/ Pulm, Cardio, Neuro, Renal, ID consults are appreciated DVT proph AM labs Pt's care was d/w pt's nurse. Time spent for pt's care: 45 minutes
--- NOTE | 2019-03-10 13:04 | CON.ID ---
Consult Consult Specialty:: infectious diseases - Past Medical History Cardio/Vascular: Yes: CAD (non-obstructive), CHF, HTN, Hyperlipdemia, Other ( Angina pectoris) Gastrointestinal: Yes: Constipation, Diverticulosis, GERD, Other (colon polyps: sessil serrated adenomas x 2 2014) Renal/: Yes: Renal Inusuff Musculoskeletal: Yes: Other (Spinal stenosis) Endocrine: Yes: Diabetes Mellitus (Insulin dependent), Hypothyroidism - Past Surgical History Past Surgical History: Yes: Hysterectomy (BRAXTON, BSO in 1981), Oopherectomy - Alcohol/Substance Use Hx Alcohol Use: No History of Substance Use: reports: None - Smoking History Smoking history: Never smoked Have you smoked in the past 12 months: No Aproximately how many cigarettes per day: 0 - Social History Usual Living Arrangement: With Spouse ADL: Independent History of Recent Travel: Yes (WENT TO [facility] TWO YEARS AGO) Home Medications - Allergies Allergies/Adverse Reactions: Allergies Allergy/AdvReac Type Severity Reaction Status Date / Time No Known Allergies Allergy Verified 03/07/19 12:29 - Home Medications Home Medications: Ambulatory Orders Aspirin Coated [Ecotrin -] 81 mg PO DAILY #30 tablet.ec 07/09/16 Levothyroxine [Synthroid -] 50 mcg PO DAILY #90 tablet 07/09/16 Allopurinol [Zyloprim -] 100 mg PO DAILY 10/02/17 Atorvastatin Ca [Lipitor] 20 mg PO HS 10/02/17 Gabapentin [Neurontin -] 300 mg PO HS 10/02/17 Acetaminophen [Tylenol .Extra-Strength -] 500 mg PO Q6H PRN tablet 11/12/17 Tamsulosin HCl [Flomax -] 0.4 mg PO DAILY@0830 #90 cap.er.24h 11/12/17 Bisacodyl [Bisacodyl -] 5 mg PO ASDIR 11/26/18 Carvedilol [Coreg -] 12.5 mg PO BID 11/26/18 Cinacalcet HCl [Sensipar] 30 mg PO DAILY 11/26/18 Hydralazine HCl 50 mg PO TID 11/26/18 Isosorbide Mononitrate [Imdur -] 90 mg PO DAILY 11/26/18 Latanoprost/Pf [Latanoprost 0.005% Eye Drop] 1 drp OP DAILY 11/26/18 Polyethylene Glycol 3350 [Miralax 119 gm Btl -] 17 gm PO DAILY 11/26/18 Potassium Chloride 20 meq PO BID 11/26/18 Ranitidine HCl [Zantac] 150 mg PO BID 11/26/18 Insulin (Levemir) [Levemir Vial] 18 units SQ HS units 12/08/18 Furosemide 100 mg PO BID 02/05/19 Colchicine [Colcrys] 0.6 mg PO BID cap 02/09/19 Physical Exam Vital Signs: Vital Signs Temperature 98.6 F 03/10/19 06:00 Pulse Rate 69 03/10/19 10:00 Respiratory Rate 21 H 03/10/19 10:00 Blood Pressure 117/42 L 03/10/19 10:00 O2 Sat by Pulse Oximetry (%) 100 03/10/19 09:00 Labs: CBC, BMP 03/10/19 05:00 03/10/19 05:00
--- NOTE | 2019-03-10 14:08 | PN ---
Progress Note, Physician Chief Complaint: Pt A&Ox3; no chest pain or dyspnea; no abdominal pain. Feels weak. History of Present Illness: Pt is an 83 yr old woman (b. Chasity) who presents to the ED complaining of a two day history of worsening abdominal distention, shortness of breath and diarrhea. Denies fever or abdominal pain. History of CHF, chronically on home o2. States that she has been compliant with her lasix, and is uncertain if she has gained weight. Daughter reports that the patient has been increasingly lethargic, and is having trouble doing her adls at home. Also reports a fall at 3 am this morning. - Current Medication List Current Medications: Active Medications Albuterol Sulfate (Ventolin 0.083% Nebulizer Soln -) 1 amp NEB Q6H PRN PRN Reason: SHORT OF BREATH/WHEEZING Allopurinol (Zyloprim -) 100 mg PO DAILY [facility] Last Admin: 03/10/19 10:05 Dose: 100 mg Aspirin (Ecotrin -) 81 mg PO DAILY [facility] Last Admin: 03/10/19 10:05 Dose: 81 mg Atorvastatin Calcium (Lipitor -) 20 mg PO HS [facility] Last Admin: 03/09/19 21:19 Dose: 20 mg Bisacodyl (Dulcolax -) 5 mg PO HS PRN PRN Reason: CONSTIPATION Carvedilol (Coreg -) 12.5 mg PO BID [facility] Last Admin: 03/10/19 10:05 Dose: 12.5 mg Chlorhexidine Gluconate (Hibiclens For Decolonization -) 1 applic TP [facility] Last Admin: 03/09/19 21:20 Dose: 1 applic Furosemide (Lasix -) 80 mg PO BID@0600,1400 [facility] Last Admin: 03/10/19 05:52 Dose: 80 mg Gabapentin (Neurontin -) 300 mg PO HS [facility] Last Admin: 03/09/19 21:20 Dose: 300 mg Heparin Sodium (Porcine) (Heparin -) 5,000 unit SQ BID [facility] Last Admin: 03/10/19 10:03 Dose: 5,000 unit Insulin Aspart (Novolog Vial Sliding Scale -) 1 vial SQ [facility]; Protocol Last Admin: 03/10/19 12:45 Dose: Not Given Insulin Detemir (Levemir Vial) 18 units SQ [facility] Last Admin: 03/09/19 21:30 Dose: 18 units Isosorbide Mononitrate (Imdur -) 90 mg PO DAILY [facility] Last Admin: 03/10/19 10:04 Dose: 90 mg Latanoprost (Xalatan 0.005% Eye Drops -) 1 drop OU HS [facility] Last Admin: 03/09/19 21:22 Dose: 1 drop Levothyroxine Sodium (Synthroid -) 50 mcg PO AM [facility] Last Admin: 03/10/19 06:03 Dose: 50 mcg Lidocaine (Lidoderm Patch -) 1 patch TP DAILY PRN PRN Reason: LOWER BACK PAIN Miscellaneous (Lidoderm Patch Removal) 1 each MC DAILY@2200 [facility] Last Admin: 03/09/19 22:57 Dose: Not Given Mupirocin (Bactroban Ointment (For Decolonization) -) 1 applic NS BID [facility] Stop: 03/13/19 21:59 Last Admin: 03/10/19 10:06 Dose: 1 applic Non-Formulary Med ( Systane Ultra Eye Drops) 1 each OU BID [facility] Last Admin: 03/10/19 10:07 Dose: 1 each Polyethylene Glycol (Miralax (For Daily Use) -) 17 gm PO DAILY [facility] Last Admin: 03/10/19 10:07 Dose: Not Given Ranitidine HCl (Zantac -) 150 mg PO BID [facility] Last Admin: 03/10/19 10:05 Dose: 150 mg Tamsulosin HCl (Flomax -) 0.4 mg PO DAILY@0830 [facility] Last Admin: 03/10/19 10:03 Dose: 0.4 mg - Objective Vital Signs: Vital Signs Temperature 98.6 F 03/10/19 06:00 Pulse Rate 69 03/10/19 10:00 Respiratory Rate 21 H 03/10/19 10:00 Blood Pressure 117/42 L 03/10/19 10:00 O2 Sat by Pulse Oximetry (%) 100 03/10/19 09:00 Constitutional: Yes: Anxious Eyes: Yes: WNL HENT: Yes: WNL Neck: Yes: WNL Cardiovascular: Yes: S1, S2 Respiratory: Yes: Regular Gastrointestinal: Yes: Soft. No: Tenderness ...Rectal Exam: Yes: Deferred Genitourinary: No: Anuria Breast(s): Yes: WNL Musculoskeletal: Yes: Muscle Weakness Extremities: Yes: Cool Edema: No Peripheral Pulses WNL: Yes Integumentary: Yes: WNL Neurological: Yes: Alert, Oriented, Weakness Psychiatric: Yes: Alert, Oriented Labs: CBC, BMP 03/10/19 05:00 03/10/19 05:00 Abnormal Lab Results 03/10/19 03/11/19 05:00 05:45 RBC 3.37 L Hgb 9.6 L Hct 29.1 L RDW 18.5 H Chloride 97 L Carbon Dioxide 40 H Anion Gap 4 L BUN 121.2 H* Creatinine 2.0 H Calcium 10.2 H AST 64 H ALT 82 H Total Protein 5.9 L Albumin 3.1 L Problem List - Problems (1) Acute on chronic respiratory failure with hypercapnia Assessment/Plan: More compliant to BIPAP overnight. On O2, BIpap, bronchodilators, antibitoics per pumonologist. Continue treatment of diastolic HF: on PO furosemide (potassium held due to development of hyperkalemia; now WNL), Imdur, carvedilol. F/u BUN/Cr (renal f/u noted); electrolytes, Is and Os, dailoy weight. Code(s): J96.22 - ACUTE AND CHRONIC RESPIRATORY FAILURE WITH HYPERCAPNIA (2) Systolic murmur Code(s): R01.1 - CARDIAC MURMUR, UNSPECIFIED (3) Tachypnea Code(s): R06.82 - TACHYPNEA, NOT ELSEWHERE CLASSIFIED (4) ANDRÉS (acute kidney injury) Code(s): N17.9 - ACUTE KIDNEY FAILURE, UNSPECIFIED (5) Hypertension Assessment/Plan: on carvedilol, furosemide, Imdur. Code(s): I10 - ESSENTIAL (PRIMARY) HYPERTENSION Qualifiers: Hypertension type: unspecified Qualified Code(s): I10 - Essential (primary ) hypertension (6) Diabetes mellitus Assessment/Plan: HGBA1C: 7.7. Code(s): E11.9 - TYPE 2 DIABETES MELLITUS WITHOUT COMPLICATIONS Qualifiers: Diabetes mellitus type: other specified (including JAVAD) Diabetes mellitus terminal clerk insulin use: without mcfp use Diabetes mellitus complication status: without complication Qualified Code(s): E13.9 - Other specified diabetes mellitus without complications (7) Hypothyroidism Code(s): E03.9 - HYPOTHYROIDISM, UNSPECIFIED Qualifiers: Hypothyroidism type: unspecified Qualified Code(s): E03.9 - Hypothyroidism , unspecified Assessment/Plan CCU time spent: 35 minutes.
[2019-03-10] MEDS: LIDOCAINE 5% TOPICAL PATCH TP PRN (15:11)
--- NOTE | 2019-03-10 15:19 | PN ---
Progress Note, Physician History of Present Illness: Pt seen and examined at bedside. She says that she feels a little better today. She feels her lower ext edema is improving. - Current Medication List Current Medications: Active Medications Albuterol Sulfate (Ventolin 0.083% Nebulizer Soln -) 1 amp NEB Q6H PRN PRN Reason: SHORT OF BREATH/WHEEZING Allopurinol (Zyloprim -) 100 mg PO DAILY [facility] Last Admin: 03/10/19 10:05 Dose: 100 mg Aspirin (Ecotrin -) 81 mg PO DAILY [facility] Last Admin: 03/10/19 10:05 Dose: 81 mg Atorvastatin Calcium (Lipitor -) 20 mg PO HS [facility] Last Admin: 03/09/19 21:19 Dose: 20 mg Bisacodyl (Dulcolax -) 5 mg PO HS PRN PRN Reason: CONSTIPATION Carvedilol (Coreg -) 12.5 mg PO BID [facility] Last Admin: 03/10/19 10:05 Dose: 12.5 mg Chlorhexidine Gluconate (Hibiclens For Decolonization -) 1 applic TP HS [facility] Last Admin: 03/09/19 21:20 Dose: 1 applic Furosemide (Lasix -) 80 mg PO DAILY [facility] Gabapentin (Neurontin -) 300 mg PO HS [facility] Last Admin: 03/09/19 21:20 Dose: 300 mg Heparin Sodium (Porcine) (Heparin -) 5,000 unit SQ BID [facility] Last Admin: 03/10/19 10:03 Dose: 5,000 unit Insulin Aspart (Novolog Vial Sliding Scale -) 1 vial SQ [facility]; Protocol Last Admin: 03/10/19 12:45 Dose: Not Given Insulin Detemir (Levemir Vial) 18 units SQ HS [facility] Last Admin: 03/09/19 21:30 Dose: 18 units Isosorbide Mononitrate (Imdur -) 90 mg PO DAILY [facility] Last Admin: 03/10/19 10:04 Dose: 90 mg Latanoprost (Xalatan 0.005% Eye Drops -) 1 drop OU HS [facility] Last Admin: 03/09/19 21:22 Dose: 1 drop Levothyroxine Sodium (Synthroid -) 50 mcg PO AM [facility] Last Admin: 03/10/19 06:03 Dose: 50 mcg Lidocaine (Lidoderm Patch -) 1 patch TP DAILY PRN PRN Reason: LOWER BACK PAIN Last Admin: 03/10/19 15:11 Dose: 1 patch Miscellaneous (Lidoderm Patch Removal) 1 each MC DAILY@2200 [facility] Last Admin: 03/09/19 22:57 Dose: Not Given Mupirocin (Bactroban Ointment (For Decolonization) -) 1 applic NS BID [facility] Stop: 03/13/19 21:59 Last Admin: 03/10/19 10:06 Dose: 1 applic Non-Formulary Med ( Systane Ultra Eye Drops) 1 each OU BID [facility] Last Admin: 03/10/19 10:07 Dose: 1 each Polyethylene Glycol (Miralax (For Daily Use) -) 17 gm PO DAILY [facility] Last Admin: 03/10/19 10:07 Dose: Not Given Ranitidine HCl (Zantac -) 150 mg PO BID [facility] Last Admin: 03/10/19 10:05 Dose: 150 mg Tamsulosin HCl (Flomax -) 0.4 mg PO DAILY@0830 [facility] Last Admin: 03/10/19 10:03 Dose: 0.4 mg - Objective Vital Signs: Vital Signs Temperature 97.6 F 03/10/19 14:00 Pulse Rate 73 03/10/19 14:00 Respiratory Rate 20 03/10/19 14:00 Blood Pressure 97/41 L 03/10/19 14:00 O2 Sat by Pulse Oximetry (%) 100 03/10/19 09:00 Constitutional: Yes: Calm Eyes: Yes: Conjunctiva Clear HENT: Yes: Atraumatic Neck: Yes: Supple Cardiovascular: Yes: S1, S2 Respiratory: Yes: On Nasal O2 Gastrointestinal: Yes: Soft, Abdomen, Obese Genitourinary: Yes: Incontinence Musculoskeletal: Yes: Muscle Weakness Edema: Yes Edema: LLE: 1+, RLE: 1+ Neurological: Yes: Oriented Psychiatric: Yes: Oriented Labs: CBC, BMP 03/10/19 05:00 03/10/19 05:00 Problem List - Problems (1) CHF exacerbation Code(s): I50.9 - HEART FAILURE, UNSPECIFIED Qualifiers: Heart failure type: unspecified Qualified Code(s): I50.9 - Heart failure, unspecified (2) Diarrhea Code(s): R19.7 - DIARRHEA, UNSPECIFIED (3) CRF (chronic renal failure) Code(s): N18.9 - CHRONIC KIDNEY DISEASE, UNSPECIFIED Qualifiers: Chronic kidney disease stage: stage 4 (severe) Qualified Code(s): N18.4 - Chronic kidney disease, stage 4 (severe) Assessment/Plan Current Medications Generic Name Dose Route Start Last Admin Trade Name Freq PRN Reason Stop Dose Admin Albuterol Sulfate 1 amp 03/08/19 19:37 Ventolin 0.083% Nebulizer Soln - NEB Q6H PRN SHORT OF BREATH/WHEEZING Allopurinol 100 mg 03/09/19 10:00 03/10/19 10:05 Zyloprim - PO 100 mg DAILY [facility] Administration Aspirin 81 mg 03/09/19 10:00 03/10/19 10:05 Ecotrin - PO 81 mg DAILY [facility] Administration Atorvastatin Calcium 20 mg 03/08/19 22:00 03/09/19 21:19 Lipitor - PO 20 mg HS [facility] Administration Bisacodyl 5 mg 03/08/19 22:00 Dulcolax - PO HS PRN CONSTIPATION Carvedilol 12.5 mg 03/08/19 22:00 03/10/19 10:05 Coreg - PO 12.5 mg BID [facility] Administration Chlorhexidine Gluconate 1 applic 03/08/19 22:00 03/09/19 21:20 Hibiclens For Decolonization - TP 1 applic HS [facility] Administration Furosemide 80 mg 03/11/19 10:00 Lasix - PO DAILY [facility] Gabapentin 300 mg 03/08/19 22:00 03/09/19 21:20 Neurontin - PO 300 mg HS [facility] Administration Heparin Sodium (Porcine) 5,000 unit 03/08/19 22:00 03/10/19 10:03 Heparin - SQ 5,000 unit BID [facility] Administration Insulin Aspart 1 vial 03/09/19 22:00 03/10/19 12:45 Novolog Vial Sliding Scale - SQ Not Given ACHS [facility] Protocol Insulin Detemir 18 units 03/08/19 22:00 03/09/19 21:30 Levemir Vial SQ 18 units HS [facility] Administration Isosorbide Mononitrate 90 mg 03/09/19 10:00 03/10/19 10:04 Imdur - PO 90 mg DAILY [facility] Administration Latanoprost 1 drop 03/08/19 22:00 03/09/19 21:22 Xalatan 0.005% Eye Drops - OU 1 drop HS [facility] Administration Levothyroxine Sodium 50 mcg 03/09/19 07:00 03/10/19 06:03 Synthroid - PO 50 mcg AM [facility] Administration Lidocaine 1 patch 03/10/19 10:00 03/10/19 15:11 Lidoderm Patch - TP 1 patch DAILY PRN Administration LOWER BACK PAIN Miscellaneous 1 each 03/09/19 22:00 03/09/19 22:57 Lidoderm Patch Removal MC Not Given DAILY@2200 [facility] Mupirocin 1 applic 03/08/19 22:00 03/10/19 10:06 Bactroban Ointment (For Decolonization) - NS 03/13/19 21:59 1 applic BID [facility] Administration Non-Formulary Med ( 1 each 03/09/19 22:00 03/10/19 10:07 Systane Ultra Eye OU 1 each Drops) BID [facility] Administration Polyethylene Glycol 17 gm 03/09/19 10:00 03/10/19 10:07 Miralax (For Daily Use) - PO Not Given DAILY [facility] Ranitidine HCl 150 mg 03/08/19 22:00 03/10/19 10:05 Zantac - PO 150 mg BID [facility] Administration Tamsulosin HCl 0.4 mg 03/09/19 08:30 03/10/19 10:03 Flomax - PO 0.4 mg DAILY@0830 [facility] Administration 1. CKD 2. Fall 3. Diarrhea 4. CHF with diastolic dysfunction 5. Anemia 6. Hypertension Plan - potassium improved - cont lasix - monitor lytes - volume status improving - monitor renal function - check renal ultrasound - Fall precautions - sensipar on hold
[2019-03-10] MEDS: GABAPENTIN 300 MG CAPSULE (FP) PO SCH (21:31)
[2019-03-10] MEDS: ATORVASTATIN CA 20 MG TABLET (FP) PO SCH (21:31)
[2019-03-10] MEDS: CHLORHEXIDINE GLUCONATE 4% CLEANSER FOR DECOLONIZATION TP SCH (21:31)
[2019-03-10] MEDS: INSULIN (LEVEMIR) 100 UNITS/ML UNITS SQ SCH (21:33)
[2019-03-10] MEDS: LIDOCAINE PATCH REMOVAL MC SCH (22:03)
[2019-03-10] MEDS: LATANOPROST 0.005% OPHTH SOLN 2.5ML BOTTLE OU SCH (22:03)
[2019-03-11] MEDS: INSULIN SLIDING SCALE (NOVOLOG) 1 VIAL SQ SCH ×4 (06:10→21:36)
[2019-03-11] MEDS: LEVOTHYROXINE NA 50 MCG TABLET (FP) PO SCH (06:10)
[2019-03-11 06:26] LABS: HEMOGLOBIN 9.6 GM/dL (10.7-15.3); MCH 28.9 pg (25.7-33.7); MCHC 33.2 g/dl (32.0-36.0); MEAN CELL VOLUME 86.8 fl (80-96); MEAN PLT VOLUME 9.3 fl (7.5-11.1); PLATELET COUNT 163 K/MM3 (134-434); RBC 3.34 M/mm3 (3.60-5.2); RDW 17.7 % (11.6-15.6); WHITE BLOOD COUNT 6.6 K/mm3 (4.0-10.0)
[2019-03-11 06:54] LABS: ALBUMIN 3.1 g/dl (3.4-5.0); BILIRUBIN,TOTAL 0.6 mg/dL (0.2-1); CALCIUM 10.2 mg/dL (8.5-10.1); POTASSIUM 4.4 mmol/L (3.5-5.1); TOT PROT 5.9 g/dl (6.4-8.2)
[2019-03-11 06:57] LABS: BLOOD UREA NITROGEN 121.2 mg/dL (7-18)
[2019-03-11 08:49] LABS: ARTERIAL BLD GAS O2 SATURATION 97.6 % (95-98); ARTERIAL BLOOD GAS BASE EXCESS 8.6 meq/l (-2-2); ARTERIAL BLOOD GAS PO2 115 mmHg (80-100)
[2019-03-11 08:50] LABS: ALLENS TEST POSITIVE
[2019-03-11 08:53] LABS: ARTERIAL BLOOD GAS PCO2 80.3 mmHg (35-45)
[2019-03-11] MEDS: ISOSORBIDE MONONITRATE 30 MG TAB.SR.24H (FP) PO SCH (10:52)
[2019-03-11] MEDS: MUPIROCIN 2% TOPICAL OINTMENT FOR DECOLONIZATION NS SCH ×2 (10:53→21:36)
[2019-03-11] MEDS: CARVEDILOL 6.25 MG TABLET (FP) PO SCH ×2 (10:53→21:22)
[2019-03-11] MEDS: FUROSEMIDE 40 MG TABLET (FP) PO SCH (10:54)
[2019-03-11] MEDS: ASPIRIN COATED 81 MG TABLET.EC PO SCH (10:54)
[2019-03-11] MEDS: HEPARIN NA (PORCINE) 5,000 UNITS/ML 1ML VIAL SQ SCH ×2 (10:54→21:22)
[2019-03-11] MEDS: ALLOPURINOL 100 MG TABLET (FP) PO SCH (10:54)
[2019-03-11] MEDS: SYSTANE ULTRA EYE OU SCH ×2 (10:55→21:32)
--- NOTE | 2019-03-11 11:02 | PN ---
Progress Note, Physician Chief Complaint: Events noted Seen in ICU Dr. Linton's note from weekend noted History of Present Illness: Patient was seen and examined. Awake. Chart was reviewed Denies chest pain. Currently in NIPPV Complains of abdominal discomfort but nontender to palpation - Current Medication List Current Medications: Active Medications Albuterol Sulfate (Ventolin 0.083% Nebulizer Soln -) 1 amp NEB Q6H PRN PRN Reason: SHORT OF BREATH/WHEEZING Allopurinol (Zyloprim -) 100 mg PO DAILY [facility] Last Admin: 03/11/19 10:54 Dose: 100 mg Aspirin (Ecotrin -) 81 mg PO DAILY [facility] Last Admin: 03/11/19 10:54 Dose: 81 mg Atorvastatin Calcium (Lipitor -) 20 mg PO HS [facility] Last Admin: 03/10/19 21:31 Dose: 20 mg Bisacodyl (Dulcolax -) 5 mg PO HS PRN PRN Reason: CONSTIPATION Carvedilol (Coreg -) 12.5 mg PO BID [facility] Last Admin: 03/11/19 10:53 Dose: 12.5 mg Chlorhexidine Gluconate (Hibiclens For Decolonization -) 1 applic TP HS [facility] Last Admin: 03/10/19 21:31 Dose: 1 applic Furosemide (Lasix -) 80 mg PO DAILY [facility] Last Admin: 03/11/19 10:54 Dose: 80 mg Gabapentin (Neurontin -) 300 mg PO HS [facility] Last Admin: 03/10/19 21:31 Dose: 300 mg Heparin Sodium (Porcine) (Heparin -) 5,000 unit SQ BID [facility] Last Admin: 03/11/19 10:54 Dose: 5,000 unit Insulin Aspart (Novolog Vial Sliding Scale -) 1 vial SQ [facility]; Protocol Last Admin: 03/11/19 06:10 Dose: Not Given Insulin Detemir (Levemir Vial) 18 units SQ HS [facility] Last Admin: 03/10/19 21:33 Dose: 18 units Isosorbide Mononitrate (Imdur -) 90 mg PO DAILY [facility] Last Admin: 03/11/19 10:52 Dose: 90 mg Latanoprost (Xalatan 0.005% Eye Drops -) 1 drop OU HS [facility] Last Admin: 03/10/19 22:03 Dose: 1 drop Levothyroxine Sodium (Synthroid -) 50 mcg PO AM [facility] Last Admin: 03/11/19 06:10 Dose: 50 mcg Lidocaine (Lidoderm Patch -) 1 patch TP DAILY PRN PRN Reason: LOWER BACK PAIN Last Admin: 03/10/19 15:11 Dose: 1 patch Miscellaneous (Lidoderm Patch Removal) 1 each MC DAILY@2200 [facility] Last Admin: 03/10/19 22:03 Dose: 1 each Mupirocin (Bactroban Ointment (For Decolonization) -) 1 applic NS BID [facility] Stop: 03/13/19 21:59 Last Admin: 03/11/19 10:53 Dose: 1 applic Non-Formulary Med ( Systane Ultra Eye Drops) 1 each OU BID [facility] Last Admin: 03/11/19 10:55 Dose: 1 each Polyethylene Glycol (Miralax (For Daily Use) -) 17 gm PO DAILY [facility] Last Admin: 03/10/19 10:07 Dose: Not Given Ranitidine HCl (Zantac -) 150 mg PO BID [facility] Last Admin: 03/10/19 21:31 Dose: 150 mg Tamsulosin HCl (Flomax -) 0.4 mg PO DAILY@08 [facility] Last Admin: 03/10/19 10:03 Dose: 0.4 mg - Objective Vital Signs: Vital Signs Temperature 97.3 F L 03/11/19 06:00 Pulse Rate 56 L 03/11/19 08:15 Respiratory Rate 16 03/11/19 06:00 Blood Pressure 110/41 L 03/11/19 06:00 O2 Sat by Pulse Oximetry (%) 99 03/11/19 08:15 Eyes: Yes: PERRL HENT: Yes: Atraumatic Neck: Yes: Supple Cardiovascular: Yes: Regular Rate and Rhythm, S1, S2 Respiratory: Yes: Diminished, On BiPap, SOB Gastrointestinal: Yes: Normal Bowel Sounds. No: Tenderness Edema: No Additional Findings/Remarks: - Review of Systems Constitutional: reports: Weakness. denies: Chills, Fever Cardiovascular: denies: Chest Pain, Palpitations, (+) Shortness of Breath Respiratory: denies: Cough, Hemoptysis, Orthopnea, PND, (+) SOB, SOB on Exertion Gastrointestinal: denies: Abdominal Pain, Constipation, Diarrhea, Melena, Nausea , Rectal Bleeding, Vomiting Genitourinary: denies: Dysuria, Hematuria Neurological: denies Dizziness, (+) Weakness. denies: Headache, Seizure, Syncope Labs: CBC, BMP 03/11/19 05:45 03/11/19 05:45 Problem List - Problems (1) Acute on chronic respiratory failure with hypercapnia Code(s): J96.22 - ACUTE AND CHRONIC RESPIRATORY FAILURE WITH HYPERCAPNIA (2) Acute on chronic respiratory failure with hypoxia and hypercapnia Code(s): J96.21 - ACUTE AND CHRONIC RESPIRATORY FAILURE WITH HYPOXIA; J96.22 - ACUTE AND CHRONIC RESPIRATORY FAILURE WITH HYPERCAPNIA (3) CHF exacerbation Code(s): I50.9 - HEART FAILURE, UNSPECIFIED Qualifiers: Heart failure type: unspecified Qualified Code(s): I50.9 - Heart failure, unspecified (4) ANDRÉS (acute kidney injury) Code(s): N17.9 - ACUTE KIDNEY FAILURE, UNSPECIFIED (5) Anemia Code(s): D64.9 - ANEMIA, UNSPECIFIED (6) CAD (coronary artery disease) Code(s): I25.10 - ATHSCL HEART DISEASE OF [place] CORONARY ARTERY W/O ANG PCTRS Qualifiers: Coronary Disease-Associated Artery/Lesion type: [place] artery (7) CRF (chronic renal failure) Code(s): N18.9 - CHRONIC KIDNEY DISEASE, UNSPECIFIED (8) Diabetes mellitus Code(s): E11.9 - TYPE 2 DIABETES MELLITUS WITHOUT COMPLICATIONS Qualifiers: Diabetes mellitus type: type 2 Diabetes mellitus exterminator helper termite insulin use: unspecified exterminator helper termite insulin use status Diabetes mellitus complication status : with other specified complication Qualified Code(s): E11.69 - Type 2 diabetes mellitus with other specified complication (9) Weakness Code(s): R53.1 - WEAKNESS (10) Hyperlipidemia Code(s): E78.5 - HYPERLIPIDEMIA, UNSPECIFIED Qualifiers: Hyperlipidemia type: pure hypercholesterolemia Qualified Code(s): E78.00 - Pure hypercholesterolemia, unspecified; E78.0 - Pure hypercholesterolemia (11) Hypertension Code(s): I10 - ESSENTIAL (PRIMARY) HYPERTENSION Qualifiers: Hypertension type: unspecified Qualified Code(s): I10 - Essential (primary ) hypertension (12) Hypothyroidism Code(s): E03.9 - HYPOTHYROIDISM, UNSPECIFIED Qualifiers: Hypothyroidism type: unspecified Qualified Code(s): E03.9 - Hypothyroidism , unspecified Assessment/Plan 1. Acute on chronic respiratory failure with hypercapnia 2. ANDRÉS 3. HTN 4. DM 5. Hypothyroidism 6. History of diverticular disease PLAN: 1. Continue Carvediolo, Isosorbide and Atorvastatin 2. Diuretics with Lasix. Currently has johnston catheter. Monitor I/Os, daily weight, renal function and electrolytes 3. Continue thyroid replacement therapy 4. ASA 5. Continue NIPPV and monitor PCO2. Further plans are to follow Apollo Kiser MD
[2019-03-11] MEDS: TAMSULOSIN HCL 0.4 MG CAP PO SCH (11:06)
[2019-03-11] MEDS: RANITIDINE HCL 150 MG TABLET (FP) PO SCH ×2 (11:06→21:22)
--- NOTE | 2019-03-11 12:35 | PN ---
Teaching Attending Note Name of Resident: Austyn Henderson ATTENDING PHYSICIAN STATEMENT I saw and evaluated the patient. I reviewed the resident's note and discussed the case with the resident. I agree with the resident's findings and plan as documented. SUBJECTIVE: Patient seen and examined in the ICU. Lethargic but arousbale on NIPPV support. Acute on chronic CO2 retention noted on ABG. Denies CP. Reports breathing feels better. Intake & Output 03/08/19 03/09/19 03/10/19 03/11/19 23:59 23:59 23:59 23:59 Intake Total 370 730 710 300 Output Total 0 3 Balance 370 727 710 300 Weight 163 lb 163 lb 8 oz 162 lb 1.6 oz Last Vital Signs Temp Pulse Resp BP Pulse Ox 98.2 F 57 L 15 122/49 L 99 03/11/19 10:00 03/11/19 10:00 03/11/19 10:00 03/11/19 10:00 03/11/19 12:23 Active Medications Albuterol Sulfate (Ventolin 0.083% Nebulizer Soln -) 1 amp NEB Q6H PRN PRN Reason: SHORT OF BREATH/WHEEZING Allopurinol (Zyloprim -) 100 mg PO DAILY [facility] Last Admin: 03/11/19 10:54 Dose: 100 mg Aspirin (Ecotrin -) 81 mg PO DAILY [facility] Last Admin: 03/11/19 10:54 Dose: 81 mg Atorvastatin Calcium (Lipitor -) 20 mg PO HS [facility] Last Admin: 03/10/19 21:31 Dose: 20 mg Bisacodyl (Dulcolax -) 5 mg PO HS PRN PRN Reason: CONSTIPATION Carvedilol (Coreg -) 12.5 mg PO BID [facility] Last Admin: 03/11/19 10:53 Dose: 12.5 mg Chlorhexidine Gluconate (Hibiclens For Decolonization -) 1 applic TP HS [facility] Last Admin: 03/10/19 21:31 Dose: 1 applic Furosemide (Lasix -) 80 mg PO DAILY [facility] Last Admin: 03/11/19 10:54 Dose: 80 mg Gabapentin (Neurontin -) 300 mg PO HS [facility] Last Admin: 03/10/19 21:31 Dose: 300 mg Heparin Sodium (Porcine) (Heparin -) 5,000 unit SQ BID [facility] Last Admin: 03/11/19 10:54 Dose: 5,000 unit Insulin Aspart (Novolog Vial Sliding Scale -) 1 vial SQ [facility]; Protocol Last Admin: 03/11/19 06:10 Dose: Not Given Insulin Detemir (Levemir Vial) 18 units SQ HS [facility] Last Admin: 03/10/19 21:33 Dose: 18 units Isosorbide Mononitrate (Imdur -) 90 mg PO DAILY [facility] Last Admin: 03/11/19 10:52 Dose: 90 mg Latanoprost (Xalatan 0.005% Eye Drops -) 1 drop OU HS [facility] Last Admin: 03/10/19 22:03 Dose: 1 drop Levothyroxine Sodium (Synthroid -) 50 mcg PO AM [facility] Last Admin: 03/11/19 06:10 Dose: 50 mcg Lidocaine (Lidoderm Patch -) 1 patch TP DAILY PRN PRN Reason: LOWER BACK PAIN Last Admin: 03/10/19 15:11 Dose: 1 patch Miscellaneous (Lidoderm Patch Removal) 1 each MC DAILY@2200 [facility] Last Admin: 03/10/19 22:03 Dose: 1 each Mupirocin (Bactroban Ointment (For Decolonization) -) 1 applic NS BID [facility] Stop: 03/13/19 21:59 Last Admin: 03/11/19 10:53 Dose: 1 applic Non-Formulary Med ( Systane Ultra Eye Drops) 1 each OU BID [facility] Last Admin: 03/11/19 10:55 Dose: 1 each Polyethylene Glycol (Miralax (For Daily Use) -) 17 gm PO DAILY [facility] Last Admin: 03/10/19 10:07 Dose: Not Given Ranitidine HCl (Zantac -) 150 mg PO BID [facility] Last Admin: 03/11/19 11:06 Dose: 150 mg Tamsulosin HCl (Flomax -) 0.4 mg PO DAILY@0830 [facility] Last Admin: 03/11/19 11:06 Dose: 0.4 mg EXAM: gen: Lethargic but arousable. NAD on NIPPV support HEENT: PERRL chest: bibaslar rales, no wheeze heart: RRR abd: obese, soft, non-tender ext: LE edema Laboratory Results - last 24 hr 03/10/19 03/10/19 03/11/19 17:03 20:38 05:28 WBC RBC Hgb Hct MCV MCH MCHC RDW Plt Count MPV Anticoagulation Therapy Puncture Site ABG pH ABG pCO2 at Pt Temp ABG pO2 at Pt Temp ABG HCO3 ABG O2 Sat (Measured) ABG O2 Content ABG Base Excess Levy Test O2 Delivery Device Oxygen Flow Rate Vent Mode Vent Rate Mechanical Rate Pressure Support Vent Sodium Potassium Chloride Carbon Dioxide Anion Gap BUN Creatinine Est GFR (CKD-EPI)AfAm Est GFR (CKD-EPI)NonAf POC Glucometer 177 229 95 Random Glucose Calcium Total Bilirubin AST ALT Alkaline Phosphatase Total Protein Albumin 03/11/19 03/11/19 03/11/19 05:45 05:45 08:25 WBC 6.6 RBC 3.34 L Hgb 9.6 L Hct 29.0 L MCV 86.8 MCH 28.9 MCHC 33.2 RDW 17.7 H Plt Count 163 MPV 9.3 Anticoagulation Therapy No Result Required. Puncture Site Right radial ABG pH 7.30 L ABG pCO2 at Pt Temp 80.3 H* ABG pO2 at Pt Temp 115 H ABG HCO3 37.8 H ABG O2 Sat (Measured) 97.6 ABG O2 Content 17.6 ABG Base Excess 8.6 H Levy Test Positive O2 Delivery Device No Result Required. Oxygen Flow Rate 3l Vent Mode No Result Required. Vent Rate No Result Required. Mechanical Rate No Result Required. Pressure Support Vent No Result Required. Sodium 141 Potassium 4.4 Chloride 97 L Carbon Dioxide 40 H Anion Gap 4 L BUN 121.2 H* Creatinine 2.0 H Est GFR (CKD-EPI)AfAm 26.10 Est GFR (CKD-EPI)NonAf 22.52 POC Glucometer Random Glucose 89 Calcium 10.2 H Total Bilirubin 0.6 AST 64 H ALT 82 H Alkaline Phosphatase 116 Total Protein 5.9 L Albumin 3.1 L 03/11/19 11:29 WBC RBC Hgb Hct MCV MCH MCHC RDW Plt Count MPV Anticoagulation Therapy Puncture Site ABG pH ABG pCO2 at Pt Temp ABG pO2 at Pt Temp ABG HCO3 ABG O2 Sat (Measured) ABG O2 Content ABG Base Excess Levy Test O2 Delivery Device Oxygen Flow Rate Vent Mode Vent Rate Mechanical Rate Pressure Support Vent Sodium Potassium Chloride Carbon Dioxide Anion Gap BUN Creatinine Est GFR (CKD-EPI)AfAm Est GFR (CKD-EPI)NonAf POC Glucometer 189 Random Glucose Calcium Total Bilirubin AST ALT Alkaline Phosphatase Total Protein Albumin ASSESSMENT/PLAN: Acute on chronic hypercapnic respiratory failure CHF CKD CAD HTN OA -Continue NIPPV with breaks on NC -Continue Lasix -Monitor off systemic steroids -BD TX PRN -Follow up cultures -DVT prophylaxis -Daily weights -Strict I & O -Need to obtain further history from PMD to further elucidate etiology of her chronic respiratory failure as DDX can be very broad Dr Bell Critical care time spent in reviewing chart, evaluating patient and formulating plan - 36 minutes.
--- NOTE | 2019-03-11 12:45 | PN ---
Progress Note (short form) - Note Progress Note: Renal follow up for CKD Seen and examined in the ICU weekend events noted johnston inserted this morning for urinary retention on BIPAP mask Vital Signs Temperature 98.2 F 03/11/19 10:00 Pulse Rate 57 L 03/11/19 10:00 Respiratory Rate 15 03/11/19 10:00 Blood Pressure 122/49 L 03/11/19 10:00 O2 Sat by Pulse Oximetry (%) 99 03/11/19 12:23 Intake & Output 03/08/19 03/09/19 03/10/19 03/11/19 23:59 23:59 23:59 23:59 Intake Total 370 730 710 300 Output Total 0 3 Balance 370 727 710 300 Weight 73.936 kg 74.162 kg 73.527 kg on BIPAP no acute distress + edema in LE CBC, BMP 03/11/19 05:45 03/11/19 05:45 Current Medications Albuterol Sulfate (Ventolin 0.083% Nebulizer Soln -) 1 amp NEB Q6H PRN PRN Reason: SHORT OF BREATH/WHEEZING Allopurinol (Zyloprim -) 100 mg PO DAILY [facility] Last Admin: 03/11/19 10:54 Dose: 100 mg Aspirin (Ecotrin -) 81 mg PO DAILY [facility] Last Admin: 03/11/19 10:54 Dose: 81 mg Atorvastatin Calcium (Lipitor -) 20 mg PO HS [facility] Last Admin: 03/10/19 21:31 Dose: 20 mg Bisacodyl (Dulcolax -) 5 mg PO HS PRN PRN Reason: CONSTIPATION Carvedilol (Coreg -) 12.5 mg PO BID [facility] Last Admin: 03/11/19 10:53 Dose: 12.5 mg Chlorhexidine Gluconate (Hibiclens For Decolonization -) 1 applic TP HS [facility] Last Admin: 03/10/19 21:31 Dose: 1 applic Furosemide (Lasix -) 80 mg PO DAILY [facility] Last Admin: 03/11/19 10:54 Dose: 80 mg Gabapentin (Neurontin -) 300 mg PO HS [facility] Last Admin: 03/10/19 21:31 Dose: 300 mg Heparin Sodium (Porcine) (Heparin -) 5,000 unit SQ BID [facility] Last Admin: 03/11/19 10:54 Dose: 5,000 unit Insulin Aspart (Novolog Vial Sliding Scale -) 1 vial SQ ACHS [facility]; Protocol Last Admin: 03/11/19 06:10 Dose: Not Given Insulin Detemir (Levemir Vial) 18 units SQ HS [facility] Last Admin: 03/10/19 21:33 Dose: 18 units Isosorbide Mononitrate (Imdur -) 90 mg PO DAILY [facility] Last Admin: 03/11/19 10:52 Dose: 90 mg Latanoprost (Xalatan 0.005% Eye Drops -) 1 drop OU HS [facility] Last Admin: 03/10/19 22:03 Dose: 1 drop Levothyroxine Sodium (Synthroid -) 50 mcg PO AM [facility] Last Admin: 03/11/19 06:10 Dose: 50 mcg Lidocaine (Lidoderm Patch -) 1 patch TP DAILY PRN PRN Reason: LOWER BACK PAIN Last Admin: 03/10/19 15:11 Dose: 1 patch Miscellaneous (Lidoderm Patch Removal) 1 each MC DAILY@2200 [facility] Last Admin: 03/10/19 22:03 Dose: 1 each Mupirocin (Bactroban Ointment (For Decolonization) -) 1 applic NS BID [facility] Stop: 03/13/19 21:59 Last Admin: 03/11/19 10:53 Dose: 1 applic Non-Formulary Med ( Systane Ultra Eye Drops) 1 each OU BID [facility] Last Admin: 03/11/19 10:55 Dose: 1 each Polyethylene Glycol (Miralax (For Daily Use) -) 17 gm PO DAILY [facility] Last Admin: 03/10/19 10:07 Dose: Not Given Ranitidine HCl (Zantac -) 150 mg PO BID [facility] Last Admin: 03/11/19 11:06 Dose: 150 mg Tamsulosin HCl (Flomax -) 0.4 mg PO DAILY@0830 [facility] Last Admin: 03/11/19 11:06 Dose: 0.4 mg 83 year old [place] with history of CKD stage 4 (baseline Cr ~2), DM Type 2, CHF with diastolic dysfunction, hypertension who presented from home with a fall and diarrhea. 1. CKD stage 4 2. Fall 3. Diarrhea r/o infectious etiology 4. CHF with diastolic dysfunction 5. Anemia 6. Hypertension Cr stable, BUN very high. Was given IV steroids x 1 dose. No documented melena. May be due to urinary retention. Continue current diuretics: Lasix 80mg PO Trend renal function and electrolytes closely. Dose all meds for CrCl < 20 Fall precautions Diarrhea work up as per GI BIPAP as per pulmonary Trend H/H, no indication for RADHA Continue Coreg Wm Tian DO
[2019-03-11 13:14] LABS: EPI CELLS 2.2 /HPF (0-5/HPF); HYALINE CASTS 11 /lpf (0-8); PH,URINE 5.5 (5.0-8.0); URINE APPEARANCE TURBID; URINE BACTERIA 503.6 /hpf (NEGATIVE); URINE BILIRUBIN NEGATIVE (NEGATIVE); URINE COLOR YELLOW; URINE GLUCOSE (UA) NEGATIVE (NEGATIVE); URINE KETONE NEGATIVE (NEGATIVE); URINE LEUK ESTERASE 3+ (NEGATIVE); URINE NITRITE POSITIVE (NEGATIVE); URINE PROTEIN TRACE (NEGATIVE); URINE RBC 22 /hpf (0-4); URINE UROBILINOGEN 0.2 mg/dL (0.2-1.0); URINE WBC 1365 /hpf (0-5)
--- NOTE | 2019-03-11 13:39 | PN ---
Physical Exam: SUBJECTIVE: Patient seen and examined at bedside this AM. No acute events overnight. On Bipap satting well. OBJECTIVE: Vital Signs Period Temp Pulse Resp BP Sys/Hernandez Pulse Ox Last 24 Hr 97.3 F-98.3 F 56-84 15- 97-162/41-71 98-100 GENERAL: The patient is awake in no acute distress. HEAD: Normal with no signs of trauma. NECK: Trachea midline, full range of motion, supple. LUNGS: Breath sounds equal, clear to auscultation bilaterally, no wheezes, no crackles, no accessory muscle use. HEART: Regular rate and rhythm, S1, S2 without murmur, rub or gallop. ABDOMEN: Soft, diffusely tender in LUQ especially, nondistended, normoactive bowel sounds, some guarding, no rebound. EXTREMITIES: 2+ pulses, warm, well-perfused, no edema. Lt foot pain. Laboratory Results - last 24 hr 03/10/19 03/10/19 03/11/19 17:03 20:38 05:28 WBC RBC Hgb Hct MCV MCH MCHC RDW Plt Count MPV Anticoagulation Therapy Puncture Site ABG pH ABG pCO2 at Pt Temp ABG pO2 at Pt Temp ABG HCO3 ABG O2 Sat (Measured) ABG O2 Content ABG Base Excess Levy Test O2 Delivery Device Oxygen Flow Rate Vent Mode Vent Rate Mechanical Rate Pressure Support Vent Sodium Potassium Chloride Carbon Dioxide Anion Gap BUN Creatinine Est GFR (CKD-EPI)AfAm Est GFR (CKD-EPI)NonAf POC Glucometer 177 229 95 Random Glucose Calcium Total Bilirubin AST ALT Alkaline Phosphatase Total Protein Albumin Urine Color Urine Appearance Urine pH Ur Specific [place] Urine Protein Urine Glucose (UA) Urine Ketones Urine Blood Urine Nitrite Urine Bilirubin Urine Urobilinogen Ur Leukocyte Esterase Urine WBC (Auto) Urine RBC (Auto) Urine Casts (Auto) U Pathogenic Cast Auto U Epithel Cells (Auto) Urine Bacteria (Auto) 03/11/19 03/11/19 03/11/19 05:45 05:45 08:25 WBC 6.6 RBC 3.34 L Hgb 9.6 L Hct 29.0 L MCV 86.8 MCH 28.9 MCHC 33.2 RDW 17.7 H Plt Count 163 MPV 9.3 Anticoagulation Therapy No Result Required. Puncture Site Right radial ABG pH 7.30 L ABG pCO2 at Pt Temp 80.3 H* ABG pO2 at Pt Temp 115 H ABG HCO3 37.8 H ABG O2 Sat (Measured) 97.6 ABG O2 Content 17.6 ABG Base Excess 8.6 H Levy Test Positive O2 Delivery Device No Result Required. Oxygen Flow Rate 3l Vent Mode No Result Required. Vent Rate No Result Required. Mechanical Rate No Result Required. Pressure Support Vent No Result Required. Sodium 141 Potassium 4.4 Chloride 97 L Carbon Dioxide 40 H Anion Gap 4 L BUN 121.2 H* Creatinine 2.0 H Est GFR (CKD-EPI)AfAm 26.10 Est GFR (CKD-EPI)NonAf 22.52 POC Glucometer Random Glucose 89 Calcium 10.2 H Total Bilirubin 0.6 AST 64 H ALT 82 H Alkaline Phosphatase 116 Total Protein 5.9 L Albumin 3.1 L Urine Color Urine Appearance Urine pH Ur Specific [place] Urine Protein Urine Glucose (UA) Urine Ketones Urine Blood Urine Nitrite Urine Bilirubin Urine Urobilinogen Ur Leukocyte Esterase Urine WBC (Auto) Urine RBC (Auto) Urine Casts (Auto) U Pathogenic Cast Auto U Epithel Cells (Auto) Urine Bacteria (Auto) 03/11/19 03/11/19 10:00 11:29 WBC RBC Hgb Hct MCV MCH MCHC RDW Plt Count MPV Anticoagulation Therapy Puncture Site ABG pH ABG pCO2 at Pt Temp ABG pO2 at Pt Temp ABG HCO3 ABG O2 Sat (Measured) ABG O2 Content ABG Base Excess Levy Test O2 Delivery Device Oxygen Flow Rate Vent Mode Vent Rate Mechanical Rate Pressure Support Vent Sodium Potassium Chloride Carbon Dioxide Anion Gap BUN Creatinine Est GFR (CKD-EPI)AfAm Est GFR (CKD-EPI)NonAf POC Glucometer 189 Random Glucose Calcium Total Bilirubin AST ALT Alkaline Phosphatase Total Protein Albumin Urine Color Yellow Urine Appearance Turbid Urine pH 5.5 Ur Specific [place] 1.010 Urine Protein Trace Urine Glucose (UA) Negative Urine Ketones Negative Urine Blood 1+ H Urine Nitrite Positive H Urine Bilirubin Negative Urine Urobilinogen 0.2 Ur Leukocyte Esterase 3+ H Urine WBC (Auto) 1365 Urine RBC (Auto) 22 Urine Casts (Auto) 11 U Pathogenic Cast Auto None seen U Epithel Cells (Auto) 2.2 Urine Bacteria (Auto) 503.6 Active Medications Generic Name Dose Route Start Last Admin Trade Name Freq PRN Reason Stop Dose Admin Albuterol Sulfate 1 amp 03/08/19 19:37 Ventolin 0.083% Nebulizer Soln - NEB Q6H PRN SHORT OF BREATH/WHEEZING Allopurinol 100 mg 03/09/19 10:00 03/11/19 10:54 Zyloprim - PO 100 mg DAILY [facility] Administration Aspirin 81 mg 03/09/19 10:00 03/11/19 10:54 Ecotrin - PO 81 mg DAILY [facility] Administration Atorvastatin Calcium 20 mg 03/08/19 22:00 03/10/19 21:31 Lipitor - PO 20 mg HS [facility] Administration Bisacodyl 5 mg 03/08/19 22:00 Dulcolax - PO HS PRN CONSTIPATION Carvedilol 12.5 mg 03/08/19 22:00 03/11/19 10:53 Coreg - PO 12.5 mg BID [facility] Administration Chlorhexidine Gluconate 1 applic 03/08/19 22:00 03/10/19 21:31 Hibiclens For Decolonization - TP 1 applic HS [facility] Administration Furosemide 80 mg 03/11/19 10:00 03/11/19 10:54 Lasix - PO 80 mg DAILY [facility] Administration Gabapentin 300 mg 03/08/19 22:00 03/10/19 21:31 Neurontin - PO 300 mg HS [facility] Administration Heparin Sodium (Porcine) 5,000 unit 03/08/19 22:00 03/11/19 10:54 Heparin - SQ 5,000 unit BID [facility] Administration Insulin Aspart 1 vial 03/09/19 22:00 03/11/19 12:51 Novolog Vial Sliding Scale - SQ 2 units ACHS [facility] Administration Protocol Insulin Detemir 18 units 03/08/19 22:00 03/10/19 21:33 Levemir Vial SQ 18 units HS [facility] Administration Isosorbide Mononitrate 90 mg 03/09/19 10:00 03/11/19 10:52 Imdur - PO 90 mg DAILY [facility] Administration Latanoprost 1 drop 03/08/19 22:00 03/10/19 22:03 Xalatan 0.005% Eye Drops - OU 1 drop HS [facility] Administration Levothyroxine Sodium 50 mcg 03/09/19 07:00 03/11/19 06:10 Synthroid - PO 50 mcg AM [facility] Administration Lidocaine 1 patch 03/10/19 10:00 03/10/19 15:11 Lidoderm Patch - TP 1 patch DAILY PRN Administration LOWER BACK PAIN Miscellaneous 1 each 03/09/19 22:00 03/10/19 22:03 Lidoderm Patch Removal MC 1 each DAILY@2200 [facility] Administration Mupirocin 1 applic 03/08/19 22:00 03/11/19 10:53 Bactroban Ointment (For Decolonization) - NS 03/13/19 21:59 1 applic BID [facility] Administration Non-Formulary Med ( 1 each 03/09/19 22:00 03/11/19 10:55 Systane Ultra Eye OU 1 each Drops) BID [facility] Administration Polyethylene Glycol 17 gm 03/09/19 10:00 03/10/19 10:07 Miralax (For Daily Use) - PO Not Given DAILY [facility] Ranitidine HCl 150 mg 03/08/19 22:00 03/11/19 11:06 Zantac - PO 150 mg BID [facility] Administration Tamsulosin HCl 0.4 mg 03/09/19 08:30 03/11/19 11:06 Flomax - PO 0.4 mg DAILY@0830 [facility] Administration ASSESSMENT/PLAN: Patient is an 83F with history of HTN, HLD, CHF, CKD, hypothyroidism with CHF exacerbation. CV -> CHF exacerbation - Last echo did not show reduced EF - Lasix 40BID monitoring Urine output, Ur Cr, daily weights - Tele monitoring - continue ASA, Carvedilol 12.5BID, atorvastatin - imdur - continue other home meds as prescribed Resp-> Acute hypercapneic hypoxemic RF possibly 2/2 COPD vs CHF exacerbation - pt showing increased pulmonary vascular congestion on CXR, and theoretically pt's FOOD SERVICES MANAGER perceives this as hyperventilation, and thus our FOOD SERVICES MANAGER will decrease respiratory rate resulting in hypercapnia. - Bipap prn increased delta gap between IPAP and EPAP as well as the rate to help decrease the CO2, will monitor closely as it can lower respiratory drive. - ABG shows good oxygenation with hypercapnea of 80, HCO3 37.8 compensating adequately but showing a component of contraction alkalosis from overdiuresis as well. - no longer receiving IV steroids. ID - No fevers, signs of infection at this time - Will monitor - C diff toxin negative, Cdiff Ag positive - ID recs appreciated, doubt pt needs isolation without confirmation with PCR. - off abx Renal -> prerenal azotemia - likely 2/2 to overdiuresis vs acute steroid use - Doubt GI bleed given absence of melena on exam - pt retaining urine (300cc on bladder scan) - [place] was placed putting out 300cc of urine - pt looks dry on exam, renal would like to continue lasix dose - renal sono no hydro on it, normal sized kidneys. -continue lasix dose per renal, continue coreg, Orthopedic -> Left foot pain - most likely 2/2 OA - foot xray negative - per primary would like an ortho consult with Dr. Kline for further eval. 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 Radha Sunshine regarding patients cause of COPD. Dr. Jam Sunshine will get back to me as he has been following the patient more closely. Pt is a Full code. We will continue to follow this patient in the ICU. Thank you for this consultative opportunity! Visit type - Emergency Visit Emergency Visit: Yes ED Registration Date: 03/07/19 Care time: The patient presented to the Emergency Department on the above date and was hospitalized for further evaluation of their emergent condition. - New Patient This patient is new to me today: Yes Date on this admission: 03/11/19 - Critical Care Critical Care patient: Yes Total Critical Care Time (in minutes): 40 Critical Care Statement: The care of this patient involved high complexity decision making to prevent further life threatening deterioration of the patient 's condition and/or to evaluate & treat vital organ system(s) failure or risk of failure. - Discharge Referral Referred to [facility] No
--- NOTE | 2019-03-11 13:43 | PN ---
Progress Note, Physician Chief Complaint: in ICU in bed - damaris Holcomb at bedside still with diarrhea no abd pain no cough SOB; feels thirsty has some L foot pain; has a L dorsal foot painful hematoma - xrays foot no fracture but will ask ortho eval - Current Medication List Current Medications: Active Medications Albuterol Sulfate (Ventolin 0.083% Nebulizer Soln -) 1 amp NEB Q6H PRN PRN Reason: SHORT OF BREATH/WHEEZING Allopurinol (Zyloprim -) 100 mg PO DAILY [facility] Last Admin: 03/11/19 10:54 Dose: 100 mg Aspirin (Ecotrin -) 81 mg PO DAILY [facility] Last Admin: 03/11/19 10:54 Dose: 81 mg Atorvastatin Calcium (Lipitor -) 20 mg PO HS [facility] Last Admin: 03/10/19 21:31 Dose: 20 mg Bisacodyl (Dulcolax -) 5 mg PO HS PRN PRN Reason: CONSTIPATION Carvedilol (Coreg -) 12.5 mg PO BID [facility] Last Admin: 03/11/19 10:53 Dose: 12.5 mg Chlorhexidine Gluconate (Hibiclens For Decolonization -) 1 applic TP HS [facility] Last Admin: 03/10/19 21:31 Dose: 1 applic Furosemide (Lasix -) 80 mg PO DAILY [facility] Last Admin: 03/11/19 10:54 Dose: 80 mg Gabapentin (Neurontin -) 300 mg PO HS [facility] Last Admin: 03/10/19 21:31 Dose: 300 mg Heparin Sodium (Porcine) (Heparin -) 5,000 unit SQ BID [facility] Last Admin: 03/11/19 10:54 Dose: 5,000 unit Insulin Aspart (Novolog Vial Sliding Scale -) 1 vial SQ [facility]; Protocol Last Admin: 03/11/19 12:51 Dose: 2 units Insulin Detemir (Levemir Vial) 18 units SQ HS [facility] Last Admin: 03/10/19 21:33 Dose: 18 units Isosorbide Mononitrate (Imdur -) 90 mg PO DAILY [facility] Last Admin: 03/11/19 10:52 Dose: 90 mg Latanoprost (Xalatan 0.005% Eye Drops -) 1 drop OU HS [facility] Last Admin: 03/10/19 22:03 Dose: 1 drop Levothyroxine Sodium (Synthroid -) 50 mcg PO AM [facility] Last Admin: 03/11/19 06:10 Dose: 50 mcg Lidocaine (Lidoderm Patch -) 1 patch TP DAILY PRN PRN Reason: LOWER BACK PAIN Last Admin: 03/10/19 15:11 Dose: 1 patch Miscellaneous (Lidoderm Patch Removal) 1 each MC DAILY@2200 [facility] Last Admin: 03/10/19 22:03 Dose: 1 each Mupirocin (Bactroban Ointment (For Decolonization) -) 1 applic NS BID [facility] Stop: 03/13/19 21:59 Last Admin: 03/11/19 10:53 Dose: 1 applic Non-Formulary Med ( Systane Ultra Eye Drops) 1 each OU BID [facility] Last Admin: 03/11/19 10:55 Dose: 1 each Polyethylene Glycol (Miralax (For Daily Use) -) 17 gm PO DAILY [facility] Last Admin: 03/10/19 10:07 Dose: Not Given Ranitidine HCl (Zantac -) 150 mg PO BID [facility] Last Admin: 03/11/19 11:06 Dose: 150 mg Tamsulosin HCl (Flomax -) 0.4 mg PO DAILY@829 [facility] Last Admin: 03/11/19 11:06 Dose: 0.4 mg - Objective Vital Signs: Vital Signs Temperature 98.2 F 03/11/19 10:00 Pulse Rate 78 03/11/19 12:00 Respiratory Rate 16 03/11/19 12:00 Blood Pressure 142/47 L 03/11/19 12:00 O2 Sat by Pulse Oximetry (%) 99 03/11/19 12:23 Constitutional: Yes: No Distress, Calm Eyes: Yes: Conjunctiva Clear HENT: Yes: Atraumatic Neck: Yes: Supple Cardiovascular: Yes: Regular Rate and Rhythm Respiratory: Yes: CTA Bilaterally Gastrointestinal: Yes: Soft. No: Tenderness Genitourinary: Yes: [place] Present. No: Hematuria Musculoskeletal: No: Joint Stiffness, Joint Swelling Extremities: No: Cold, Cool, Cyanosis Edema: No Integumentary: No: Rash, Venous Stasis Changes Neurological: Yes: WNL, Alert, Oriented ...Motor Strength: WNL Psychiatric: Yes: WNL, Alert, Oriented. No: Agitated, Suicidal Ideation Labs: CBC, BMP 03/11/19 05:45 03/11/19 05:45 - ....Imaging Other: Report Reviewed Assessment/Plan Pt presents to the ED complaining of a two day history of worsening abdominal distention, shortness of breath and diarrhea. History of CHF, chronically on home o2, increasingly lethargic, decreased po intake. s/p fall x 2 at home SOB CHF / COPD exac; pulm and cardio f/u; prn BIPAP / ICU monitoring ARF/CRF; uncontrolled DM, rabdomyolisis, prerenal azotemia, s/p lasix - would reduce lasix for now, pt looks dry f/u labs, CE diarrhea, CDiff+; further tx per GI L foot pain hematoma ortho eval falls decubs DVT pfx prognosis guarded d/w pt and daughter at bedside turn in bed q1h to prevent decubs; do not get OOB alone to prevent falls t time 35 min
[2019-03-11] MEDS: POLYETHYLENE GLYCOL 3350 119 GM BTL PO SCH (13:52)
[2019-03-11] MEDS: LIDOCAINE 5% TOPICAL PATCH TP PRN (15:07)
--- NOTE | 2019-03-11 16:04 | ECHO ---
Name: CELSO RAMOS Exam:Adult Echocardiogram Study Date: 03/11/2019 02:27 PM Age: 83 yrs Reason For Study: sob Height: 64 in Weight: 162 lb BSA: 1.8 m2 MMode/2D Measurements & Calculations IVSd: 0.99 cm Ao root diam: 3.5 cm LVIDd: 4.3 cm LA dimension: 3.6 cm LVIDs: 2.3 cm ACS: 1.2 cm LVPWd: 1.0 cm IVSs: 1.3 cm LVPWs: 1.4 cm EDV(Teich): 84.3 ml ESV(Teich): 17.6 ml LVOT diam: 2.0 cm Doppler Measurements & Calculations MV E max josué: 93.5 cm/sec Ao V2 max: 219.3 cm/sec MV A max josué: 90.8 cm/sec Ao max P.3 mmHg MV E/A: 1.0 Ao V2 mean: 146.7 cm/sec Ao mean P.1 mmHg Ao V2 VTI: 52.4 cm MARIANA(I,D): 1.3 cm2 MARIANA(V,D): 1.3 cm2 LV V1 max P.5 mmHg MR max josué: 373.4 cm/sec LV V1 mean P.8 mmHg MR max P.8 mmHg LV V1 max: 93.1 cm/sec LV V1 mean: 61.3 cm/sec LV V1 VTI: 21.3 cm SV(LVOT): 65.6 ml TR max josué: 364.3 cm/sec TR max P.1 mmHg Med Peak E' Josué: 3.3 cm/sec Med E/e': 28.4 Lat Peak E' Josué: 4.3 cm/sec Lat E/e': 21.9 Procedure A complete two-dimensional transthoracic echocardiogram was performed (2D, M-mode, Doppler and color flow Doppler). Technically limited study. Left Ventricle The left ventricle is normal in size. Left ventricular systolic function is normal. Ejection Fraction = 65- 70%. No regional wall motion abnormalities noted. Right Ventricle The right ventricle is not well visualized. Atria The left atrial size is normal. Right atrial size is normal. Mitral Valve There is mild mitral annular calcification. There is mild mitral regurgitation. Tricuspid Valve The tricuspid valve is not well visualized. Aortic Valve There is mild aortic valve thickening. There is moderate aortic sclerosis.;. Mild valvular aortic uriel nosis. The calculated aortic valve area using the continuity equation is 1.3 cm2. Aortic mean pressure gradi ent= 11 mmHg. Dimensionless index (DI) is 0.43. Trace aortic regurgitation. Pulmonic Valve The pulmonic valve is not well visualized. Great Vessels The aortic root is normal size. Pericardium/Pleura There is no pericardial effusion. Interpretation Summary Technically limited study The left ventricle is normal in size. Left ventricular systolic function is normal. No regional wall motion abnormalities noted. Ejection Fraction = 65-70%. The right ventricle is not well visualized. The left atrial size is normal. Right atrial size is normal. There is mild mitral annular calcification. There is mild mitral regurgitation. The tricuspid valve is not well visualized. There is mild aortic valve thickening. There is moderate aortic sclerosis. Cannot rule out mild valvular aortic stenosis. The calculated aortic valve area using the continuity equation is 1.3 cm2. Aortic mean pressure gradient= 11 mmHg Dimensionless index (DI) is 0.43 Trace aortic regurgitation. There is no pericardial effusion. Apollo Kiser MD 03/11/2019 04:04 PM
[2019-03-11 16:37] LABS: ARTERIAL BLD GAS O2 SATURATION 97.1 % (95-98); ARTERIAL BLOOD GAS BASE EXCESS 12.5 meq/l (-2-2); ARTERIAL BLOOD GAS PCO2 69.5 mmHg (35-45); ARTERIAL BLOOD GAS PO2 92.3 mmHg (80-100); ARTERIAL BLOOD GAS pH 7.37 (7.35-7.45)
[2019-03-11 16:38] LABS: ALLENS TEST POSITIVE
[2019-03-11] MEDS ORDERED: ACETAMINOPHEN 1000 MG/100 ML VIAL (NON FORMULARY) IVPB ONE (19:08)
[2019-03-11] MEDS: GABAPENTIN 300 MG CAPSULE (FP) PO SCH (21:22)
[2019-03-11] MEDS: ATORVASTATIN CA 20 MG TABLET (FP) PO SCH (21:22)
[2019-03-11] MEDS: LIDOCAINE PATCH REMOVAL MC SCH (21:22)
[2019-03-11] MEDS: CHLORHEXIDINE GLUCONATE 4% CLEANSER FOR DECOLONIZATION TP SCH (21:23)
[2019-03-11] MEDS: LATANOPROST 0.005% OPHTH SOLN 2.5ML BOTTLE OU SCH (21:33)
[2019-03-11] MEDS: INSULIN (LEVEMIR) 100 UNITS/ML UNITS SQ SCH (21:35)
[2019-03-12 05:59] LABS: BASO % 0.4 % (0-2.0); EOS % 5.5 % (0-4.5); HEMOGLOBIN 9.3 GM/dL (10.7-15.3); LYMPH % 16.5 % (8-40); MCHC 33.4 g/dl (32.0-36.0); MEAN CELL VOLUME 86.9 fl (80-96); MEAN PLT VOLUME 9.5 fl (7.5-11.1); MONO % 22.3 % (3.8-10.2); NEUT % 55.3 % (42.8-82.8); PLATELET COUNT 169 K/MM3 (134-434); RBC 3.22 M/mm3 (3.60-5.2); RDW 17.4 % (11.6-15.6); WHITE BLOOD COUNT 6.4 K/mm3 (4.0-10.0)
[2019-03-12] MEDS: INSULIN SLIDING SCALE (NOVOLOG) 1 VIAL SQ SCH ×4 (05:59→23:24)
[2019-03-12] MEDS: LEVOTHYROXINE NA 50 MCG TABLET (FP) PO SCH (05:59)
[2019-03-12 06:23] LABS: BILIRUBIN,TOTAL 0.8 mg/dL (0.2-1); CALCIUM 10.6 mg/dL (8.5-10.1); CREATININE 1.8 mg/dL (0.55-1.3); POTASSIUM 4.3 mmol/L (3.5-5.1); TOT PROT 5.8 g/dl (6.4-8.2)
[2019-03-12 06:24] LABS: BLOOD UREA NITROGEN 107.4 mg/dL (7-18)
--- NOTE | 2019-03-12 06:32 | PN ---
Progress Note (short form) - Note Progress Note: Chief Complaint: Events noted, notes reviewed, lethargic but easily arousable, no acute distress, reports persistence of dyspnea but improved, denies any chest discomfort History of Present Illness: Seen and examined in the ICU. Events noted, notes reviewed, lethargic but easily arousable, no acute distress, reports persistence of dyspnea but improved , denies any chest discomfort Medications: Current Medications Albuterol Sulfate (Ventolin 0.083% Nebulizer Soln -) 1 amp NEB Q6H PRN PRN Reason: SHORT OF BREATH/WHEEZING Allopurinol (Zyloprim -) 100 mg PO DAILY [facility] Last Admin: 03/12/19 09:53 Dose: 100 mg Aspirin (Ecotrin -) 81 mg PO DAILY [facility] Last Admin: 03/12/19 09:53 Dose: 81 mg Atorvastatin Calcium (Lipitor -) 20 mg PO HS [facility] Last Admin: 03/11/19 21:22 Dose: 20 mg Bisacodyl (Dulcolax -) 5 mg PO HS PRN PRN Reason: CONSTIPATION Carvedilol (Coreg -) 12.5 mg PO BID [facility] Last Admin: 03/12/19 09:57 Dose: 12.5 mg Chlorhexidine Gluconate (Hibiclens For Decolonization -) [address] [facility] Last Admin: 03/11/19 21:23 Dose: 1 applic Furosemide (Lasix -) 80 mg PO DAILY [facility] Last Admin: 03/12/19 09:57 Dose: 80 mg Gabapentin (Neurontin -) [address] [facility] Last Admin: 03/11/19 21:22 Dose: 300 mg Heparin Sodium (Porcine) (Heparin -) 5,000 unit SQ BID [facility] Last Admin: 03/12/19 09:57 Dose: 5,000 unit Insulin Aspart (Novolog Vial Sliding Scale -) 1 vial SQ [facility]; Protocol Last Admin: 03/12/19 05:59 Dose: 2 units Insulin Detemir (Levemir Vial) [address] [facility] Last Admin: 03/11/19 21:35 Dose: 18 units Isosorbide Mononitrate (Imdur -) 90 mg PO DAILY [facility] Last Admin: 03/12/19 09:57 Dose: 90 mg Latanoprost (Xalatan 0.005% Eye Drops -) [address] [facility] Last Admin: 03/11/19 21:33 Dose: 1 drop Levothyroxine Sodium (Synthroid -) 50 mcg PO AM [facility] Last Admin: 03/12/19 05:59 Dose: 50 mcg Lidocaine (Lidoderm Patch -) 1 patch TP DAILY PRN PRN Reason: LOWER BACK PAIN Last Admin: 03/11/19 15:07 Dose: 1 patch Miscellaneous (Lidoderm Patch Removal) 1 each MC DAILY@2200 [facility] Last Admin: 03/11/19 21:22 Dose: 1 each Mupirocin (Bactroban Ointment (For Decolonization) -) 1 applic NS BID [facility] Stop: 03/13/19 21:59 Last Admin: 03/12/19 09:53 Dose: 1 applic Non-Formulary Med ( Systane Ultra Eye Drops) 1 each OU BID [facility] Last Admin: 03/12/19 09:54 Dose: 1 each Polyethylene Glycol (Miralax (For Daily Use) -) 17 gm PO DAILY [facility] Last Admin: 03/12/19 09:54 Dose: Not Given Ranitidine HCl (Zantac -) 150 mg PO BID [facility] Last Admin: 03/12/19 09:53 Dose: 150 mg Tamsulosin HCl (Flomax -) 0.4 mg PO DAILY@0830 [facility] Last Admin: 03/12/19 08:38 Dose: 0.4 mg Review of Systems - Review of Systems Constitutional: no symptoms reported Respiratory: denies: Cough or Sputum Production Cardiovascular: as noted above Gastrointestinal: denies: Nausea, Vomiting, Constipation or Abdominal Pain but reports Persistent Diarrhea Genitourinary: No symptoms reported Musculoskeletal: Degenerative Joint Disease Endocrine: Hypothyroidism Vital Signs: Last Vital Signs Temp Pulse Resp BP Pulse Ox 97.6 F 68 22 H 139/40 L 100 03/12/19 08:00 03/12/19 10:47 03/12/19 10:47 03/12/19 10:47 03/12/19 09:49 Intake & Output 03/09/19 03/10/19 03/11/19 03/12/19 23:59 23:59 23:59 23:59 Intake Total 730 710 800 500 Output Total 3 1150 700 Balance 727 710 -350 -200 Weight 163 lb 163 lb 8 oz 162 lb 1.6 oz 156 lb 12.8 oz Constitutional: No Distress, Calm Neck: Supple Negative JVD No Bruit Respiratory: Diminished Breath Sounds at the Bases Cardiovascular: S1 S2 Regular Rate and Rhythm Gastrointestinal: Soft Benign Normal Bowel Sounds Ext: No Edema Labs: ABG Results ABG pH 7.37 (7.35-7.45) 03/11/19 16:20 ABG pCO2 at Pt Temp 69.5 mmHg (35-45) H 03/11/19 16:20 ABG pO2 at Pt Temp 92.3 mmHg (80-100) 03/11/19 16:20 ABG HCO3 39.5 mmol/L (22-27) H 03/11/19 16:20 ABG O2 Sat (Measured) 97.1 % (95-98) 03/11/19 16:20 ABG O2 Content 13.1 % vol 03/11/19 16:20 ABG Base Excess 12.5 meq/l (-2-2) H 03/11/19 16:20 CBC, BMP 03/12/19 05:35 03/12/19 05:35 Assessment/Plan ASSESSMENT: 1. Acute on chronic hypercapnic respiratory failure related to diastolic left ventricular dysfunction, resolved see below 2. Diastolic left ventricular dysfunction with acute on chronic exacerbation, class I-II [place] [employer] classification left ventricular failure, clinically resolved 3. 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 Aortic valve sclerosis/stenosis mild in severity 5. HTN 6. NIDDM 7. Hypercholesterolemia 8. Hypothyroidism 9. Acute on chronic kidney disease, prerenal azotemia 10. Gouty arthropathy 11. Anemia PLAN: 1. Continue Coreg, hemodynamics permitting 2. Ideally addition of CHRISTINE inhibitor or angiotensin receptor rayo therapy is recommended once renal function stabilizes/at baseline with close monitoring of renal function and electrolytes 3. Continue Imdur 4. Continue Lipitor 5. Would recommend withholding Lasix therapy in view of the above-noted prerenal azotemia 6. Continue ASA with caution Troy Ortega M.D.
[2019-03-12] MEDS ORDERED: PT OWN MED DRAWER 7, Y5N ONE (08:34)
[2019-03-12] MEDS: TAMSULOSIN HCL 0.4 MG CAP PO SCH (08:38)
[2019-03-12] MEDS ORDERED: CEFTRIAXONE 1 GM in DEXTROSE 5%-WATER - 50 ML IVPB ONE (09:30)
[2019-03-12] MEDS ORDERED: cefTRIAXone SODIUM 1 GM VIAL ONE (09:41)
[2019-03-12] MEDS ORDERED: DEXTROSE 5%-WATER - 50 ML IVPB ONE (09:41)
--- NOTE | 2019-03-12 09:52 | PN ---
Progress Note, Physician History of Present Illness: Pt in ICU, off BIPAP during daytime; tolerating O2 supplementation via NC. Pt w/o CP, palpitation, abd pain, diarrhea, nausea, vomiting. - Current Medication List Current Medications: Active Medications Albuterol Sulfate (Ventolin 0.083% Nebulizer Soln -) 1 amp NEB Q6H PRN PRN Reason: SHORT OF BREATH/WHEEZING Allopurinol (Zyloprim -) 100 mg PO DAILY [facility] Last Admin: 03/11/19 10:54 Dose: 100 mg Aspirin (Ecotrin -) 81 mg PO DAILY [facility] Last Admin: 03/11/19 10:54 Dose: 81 mg Atorvastatin Calcium (Lipitor -) 20 mg PO HS [facility] Last Admin: 03/11/19 21:22 Dose: 20 mg Bisacodyl (Dulcolax -) 5 mg PO HS PRN PRN Reason: CONSTIPATION Carvedilol (Coreg -) 12.5 mg PO BID [facility] Last Admin: 03/11/19 21:22 Dose: 12.5 mg Chlorhexidine Gluconate (Hibiclens For Decolonization -) 1 applic TP [facility] Last Admin: 03/11/19 21:23 Dose: 1 applic Furosemide (Lasix -) 80 mg PO DAILY [facility] Last Admin: 03/11/19 10:54 Dose: 80 mg Gabapentin (Neurontin -) 300 mg PO [facility] Last Admin: 03/11/19 21:22 Dose: 300 mg Heparin Sodium (Porcine) (Heparin -) 5,000 unit SQ BID [facility] Last Admin: 03/11/19 21:22 Dose: 5,000 unit Ceftriaxone Sodium 1 gm/ (Dextrose) 50 mls @ 100 mls/hr IVPB ONCE ONE Stop: 03/12/19 09:59 Insulin Aspart (Novolog Vial Sliding Scale -) 1 vial SQ [facility]; Protocol Last Admin: 03/12/19 05:59 Dose: 2 units Insulin Detemir (Levemir Vial) 18 units SQ [facility] Last Admin: 03/11/19 21:35 Dose: 18 units Isosorbide Mononitrate (Imdur -) 90 mg PO DAILY [facility] Last Admin: 03/11/19 10:52 Dose: 90 mg Latanoprost (Xalatan 0.005% Eye Drops -) 1 drop OU [facility] Last Admin: 03/11/19 21:33 Dose: 1 drop Levothyroxine Sodium (Synthroid -) 50 mcg PO AM [facility] Last Admin: 03/12/19 05:59 Dose: 50 mcg Lidocaine (Lidoderm Patch -) 1 patch TP DAILY PRN PRN Reason: LOWER BACK PAIN Last Admin: 03/11/19 15:07 Dose: 1 patch Miscellaneous (Lidoderm Patch Removal) 1 each MC DAILY@2200 [facility] Last Admin: 03/11/19 21:22 Dose: 1 each Mupirocin (Bactroban Ointment (For Decolonization) -) 1 applic NS BID [facility] Stop: 03/13/19 21:59 Last Admin: 03/11/19 21:36 Dose: 1 applic Non-Formulary Med ( Systane Ultra Eye Drops) 1 each OU BID [facility] Last Admin: 03/11/19 21:32 Dose: 1 each Polyethylene Glycol (Miralax (For Daily Use) -) 17 gm PO DAILY [facility] Last Admin: 03/11/19 13:52 Dose: Not Given Ranitidine HCl (Zantac -) 150 mg PO BID [facility] Last Admin: 03/11/19 21:22 Dose: 150 mg Tamsulosin HCl (Flomax -) 0.4 mg PO DAILY@0830 [facility] Last Admin: 03/12/19 08:38 Dose: 0.4 mg - Objective Vital Signs: Vital Signs Temperature 97.6 F 03/12/19 08:00 Pulse Rate 68 03/12/19 08:00 Respiratory Rate 19 03/12/19 08:00 Blood Pressure 137/48 L 03/12/19 08:00 O2 Sat by Pulse Oximetry (%) 100 03/12/19 09:49 Constitutional: Yes: No Distress, Calm Cardiovascular: Yes: Regular Rate and Rhythm, S1, S2 Respiratory: Yes: Regular, Other (bilat basilary crackles) Gastrointestinal: Yes: Normal Bowel Sounds, Soft, Abdomen, Obese, Tenderness Edema: Yes Edema: LLE: 1+, RLE: 1+ Neurological: Yes: Alert, Oriented Labs: CBC, BMP 03/12/19 05:35 03/12/19 05:35 Problem List - Problems (1) Acute on chronic respiratory failure with hypoxia and hypercapnia Assessment/Plan: Improving with diuresis. Code(s): J96.21 - ACUTE AND CHRONIC RESPIRATORY FAILURE WITH HYPOXIA; J96.22 - ACUTE AND CHRONIC RESPIRATORY FAILURE WITH HYPERCAPNIA (2) ANDRÉS (acute kidney injury) Code(s): N17.9 - ACUTE KIDNEY FAILURE, UNSPECIFIED (3) CRF (chronic renal failure) Code(s): N18.9 - CHRONIC KIDNEY DISEASE, UNSPECIFIED Qualifiers: Chronic kidney disease stage: stage 4 (severe) Qualified Code(s): N18.4 - Chronic kidney disease, stage 4 (severe) (4) Hyperkalemia Code(s): E87.5 - HYPERKALEMIA (5) Fall Code(s): W19.XXXA - UNSPECIFIED FALL, INITIAL ENCOUNTER Qualifiers: Encounter type: initial encounter Qualified Code(s): W19.XXXA - Unspecified fall, initial encounter (6) CAD (coronary artery disease) Code(s): I25.10 - ATHSCL HEART DISEASE OF [place] CORONARY ARTERY W/O ANG PCTRS Qualifiers: Coronary Disease-Associated Artery/Lesion type: [place] artery [place] vs. 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 Improving Code(s): R74.8 - ABNORMAL LEVELS OF OTHER SERUM ENZYMES Assessment/Plan Admitted to ICU On BIPAP at night now and PRN. On IV Lasix daily. Improvement in Creatinine and weight. Pt with improvement in blood gases and clinical presentation. CCM/ Pulm, Cardio, Neuro, Renal, ID consults are appreciated. To f/u with Ortho regarding left foot pain; continue warm compresses. DVT proph AM labs Pt's care was d/w pt's nurse. To try OOBTC. Time spent for pt's care: 40 minutes
[2019-03-12] MEDS: ALLOPURINOL 100 MG TABLET (FP) PO SCH (09:53)
[2019-03-12] MEDS: RANITIDINE HCL 150 MG TABLET (FP) PO SCH ×2 (09:53→23:13)
[2019-03-12] MEDS: ASPIRIN COATED 81 MG TABLET.EC PO SCH (09:53)
[2019-03-12] MEDS: MUPIROCIN 2% TOPICAL OINTMENT FOR DECOLONIZATION NS SCH (09:53)
[2019-03-12] MEDS: SYSTANE ULTRA EYE OU SCH (09:54)
[2019-03-12] MEDS: POLYETHYLENE GLYCOL 3350 119 GM BTL PO SCH (09:54)
[2019-03-12] MEDS: FUROSEMIDE 40 MG TABLET (FP) PO SCH (09:57)
[2019-03-12] MEDS: ISOSORBIDE MONONITRATE 30 MG TAB.SR.24H (FP) PO SCH (09:57)
[2019-03-12] MEDS: HEPARIN NA (PORCINE) 5,000 UNITS/ML 1ML VIAL SQ SCH ×2 (09:57→23:14)
[2019-03-12] MEDS: CARVEDILOL 6.25 MG TABLET (FP) PO SCH (09:57)
[2019-03-12 10:23] LABS: ANISOCYTOSIS 1+; MACROCYTOSIS 0; PLATELET ESTIMATE NORMAL
--- NOTE | 2019-03-12 11:45 | PN ---
Teaching Attending Note Name of Resident: Austyn Henderson ATTENDING PHYSICIAN STATEMENT I saw and evaluated the patient. I reviewed the resident's note and discussed the case with the resident. I agree with the resident's findings and plan as documented. SUBJECTIVE: Patient seen and examined in the ICU. Awake and alert on NC O2. Denies CP. Reports breathing feels overall better. ABG much improved. Intake & Output 03/09/19 03/10/19 03/11/19 03/12/19 23:59 23:59 23:59 23:59 Intake Total 730 710 800 500 Output Total 3 1150 700 Balance 727 710 -350 -200 Weight 163 lb 163 lb 8 oz 162 lb 1.6 oz 156 lb 12.8 oz Last Vital Signs Temp Pulse Resp BP Pulse Ox 97.6 F 68 22 H 139/40 L 100 03/12/19 08:00 03/12/19 10:47 03/12/19 10:47 03/12/19 10:47 03/12/19 09:49 Active Medications Albuterol Sulfate (Ventolin 0.083% Nebulizer Soln -) 1 amp NEB Q6H PRN PRN Reason: SHORT OF BREATH/WHEEZING Allopurinol (Zyloprim -) 100 mg PO DAILY [facility] Last Admin: 03/12/19 09:53 Dose: 100 mg Aspirin (Ecotrin -) 81 mg PO DAILY [facility] Last Admin: 03/12/19 09:53 Dose: 81 mg Atorvastatin Calcium (Lipitor -) 20 mg PO HS [facility] Last Admin: 03/11/19 21:22 Dose: 20 mg Bisacodyl (Dulcolax -) 5 mg PO HS PRN PRN Reason: CONSTIPATION Carvedilol (Coreg -) 12.5 mg PO BID [facility] Last Admin: 03/12/19 09:57 Dose: 12.5 mg Chlorhexidine Gluconate (Hibiclens For Decolonization -) 1 applic TP HS [facility] Last Admin: 03/11/19 21:23 Dose: 1 applic Furosemide (Lasix -) 80 mg PO DAILY [facility] Last Admin: 03/12/19 09:57 Dose: 80 mg Gabapentin (Neurontin -) 300 mg PO HS [facility] Last Admin: 03/11/19 21:22 Dose: 300 mg Heparin Sodium (Porcine) (Heparin -) 5,000 unit SQ BID [facility] Last Admin: 03/12/19 09:57 Dose: 5,000 unit Insulin Aspart (Novolog Vial Sliding Scale -) [address] [facility]; Protocol Last Admin: 03/12/19 05:59 Dose: 2 units Insulin Detemir (Levemir Vial) 18 units SQ HS [facility] Last Admin: 03/11/19 21:35 Dose: 18 units Isosorbide Mononitrate (Imdur -) 90 mg PO DAILY [facility] Last Admin: 03/12/19 09:57 Dose: 90 mg Latanoprost (Xalatan 0.005% Eye Drops -) 1 drop OU HS [facility] Last Admin: 03/11/19 21:33 Dose: 1 drop Levothyroxine Sodium (Synthroid -) 50 mcg PO AM [facility] Last Admin: 03/12/19 05:59 Dose: 50 mcg Lidocaine (Lidoderm Patch -) 1 patch TP DAILY PRN PRN Reason: LOWER BACK PAIN Last Admin: 03/11/19 15:07 Dose: 1 patch Miscellaneous (Lidoderm Patch Removal) 1 each MC DAILY@2200 [facility] Last Admin: 03/11/19 21:22 Dose: 1 each Mupirocin (Bactroban Ointment (For Decolonization) -) 1 applic NS BID [facility] Stop: 03/13/19 21:59 Last Admin: 03/12/19 09:53 Dose: 1 applic Non-Formulary Med ( Systane Ultra Eye Drops) 1 each OU BID [facility] Last Admin: 03/12/19 09:54 Dose: 1 each Polyethylene Glycol (Miralax (For Daily Use) -) 17 gm PO DAILY [facility] Last Admin: 03/12/19 09:54 Dose: Not Given Ranitidine HCl (Zantac -) 150 mg PO BID [facility] Last Admin: 03/12/19 09:53 Dose: 150 mg Tamsulosin HCl (Flomax -) 0.4 mg PO DAILY@0830 [facility] Last Admin: 03/12/19 08:38 Dose: 0.4 mg EXAM: Gen: Awake and alert, NAD HEENT: PERRL chest: bibaslar rales, no wheeze heart: RRR abd: obese, soft, non-tender ext: LE edema Laboratory Results - last 24 hr 03/11/19 03/11/19 03/11/19 10:00 16:20 16:43 WBC RBC Hgb Hct MCV MCH MCHC RDW Plt Count MPV Absolute Neuts (auto) Neutrophils % Neutrophils % (Manual) Band Neutrophils % Lymphocytes % Lymphocytes % (Manual) Monocytes % Monocytes % (Manual) Eosinophils % Eosinophils % (Manual) Basophils % Basophils % (Manual) Myelocytes % (Man) Promyelocytes % (Man) Blast Cells % (Manual) Nucleated RBC % Metamyelocytes Hypochromia Platelet Estimate Polychromasia Poikilocytosis Anisocytosis Microcytosis Macrocytosis Anticoagulation Therapy No Result Required. Puncture Site Right radial ABG pH 7.37 ABG pCO2 at Pt Temp 69.5 H ABG pO2 at Pt Temp 92.3 ABG HCO3 39.5 H ABG O2 Sat (Measured) 97.1 ABG O2 Content 13.1 ABG Base Excess 12.5 H Levy Test Positive O2 Delivery Device No Result Required. Oxygen Flow Rate Yes Vent Mode No Result Required. Vent Rate No Result Required. Mechanical Rate No Result Required. Pressure Support Vent No Result Required. Sodium Potassium Chloride Carbon Dioxide Anion Gap BUN Creatinine Est GFR (CKD-EPI)AfAm Est GFR (CKD-EPI)NonAf POC Glucometer 195 Random Glucose Calcium Total Bilirubin AST ALT Alkaline Phosphatase Total Protein Albumin Urine Color Yellow Urine Appearance Turbid Urine pH 5.5 Ur Specific [place] 1.010 Urine Protein Trace Urine Glucose (UA) Negative Urine Ketones Negative Urine Blood 1+ H Urine Nitrite Positive H Urine Bilirubin Negative Urine Urobilinogen 0.2 Ur Leukocyte Esterase 3+ H Urine WBC (Auto) 1365 Urine RBC (Auto) 22 Urine Casts (Auto) 11 U Pathogenic Cast Auto None seen U Epithel Cells (Auto) 2.2 Urine Bacteria (Auto) 503.6 03/11/19 03/12/19 03/12/19 21:34 05:35 05:35 WBC 6.4 RBC 3.22 L Hgb 9.3 L Hct 28.0 L MCV 86.9 MCH 29.0 MCHC 33.4 RDW 17.4 H Plt Count 169 MPV 9.5 Absolute Neuts (auto) 3.6 Neutrophils % 55.3 D Neutrophils % (Manual) 59.4 Band Neutrophils % 0.0 Lymphocytes % 16.5 D Lymphocytes % (Manual) 17.7 D Monocytes % 22.3 H D Monocytes % (Manual) 17 H D Eosinophils % 5.5 H D Eosinophils % (Manual) 5.2 H D Basophils % 0.4 Basophils % (Manual) 0.0 Myelocytes % (Man) 0 Promyelocytes % (Man) 0 Blast Cells % (Manual) 0 Nucleated RBC % 0 Metamyelocytes 0 Hypochromia 1+ Platelet Estimate Normal Polychromasia 0 Poikilocytosis 0 Anisocytosis 1+ Microcytosis 1+ Macrocytosis 0 Anticoagulation Therapy Puncture Site ABG pH ABG pCO2 at Pt Temp ABG pO2 at Pt Temp ABG HCO3 ABG O2 Sat (Measured) ABG O2 Content ABG Base Excess Levy Test O2 Delivery Device Oxygen Flow Rate Vent Mode Vent Rate Mechanical Rate Pressure Support Vent Sodium 140 Potassium 4.3 Chloride 97 L Carbon Dioxide 38 H Anion Gap 5 L BUN 107.4 H* Creatinine 1.8 H Est GFR (CKD-EPI)AfAm 29.64 Est GFR (CKD-EPI)NonAf 25.58 POC Glucometer 194 Random Glucose 165 H Calcium 10.6 H Total Bilirubin 0.8 AST 44 H ALT 67 H Alkaline Phosphatase 113 Total Protein 5.8 L Albumin 3.0 L Urine Color Urine Appearance Urine pH Ur Specific [place] Urine Protein Urine Glucose (UA) Urine Ketones Urine Blood Urine Nitrite Urine Bilirubin Urine Urobilinogen Ur Leukocyte Esterase Urine WBC (Auto) Urine RBC (Auto) Urine Casts (Auto) U Pathogenic Cast Auto U Epithel Cells (Auto) Urine Bacteria (Auto) 03/12/19 03/12/19 05:47 11:27 WBC RBC Hgb Hct MCV MCH MCHC RDW Plt Count MPV Absolute Neuts (auto) Neutrophils % Neutrophils % (Manual) Band Neutrophils % Lymphocytes % Lymphocytes % (Manual) Monocytes % Monocytes % (Manual) Eosinophils % Eosinophils % (Manual) Basophils % Basophils % (Manual) Myelocytes % (Man) Promyelocytes % (Man) Blast Cells % (Manual) Nucleated RBC % Metamyelocytes Hypochromia Platelet Estimate Polychromasia Poikilocytosis Anisocytosis Microcytosis Macrocytosis Anticoagulation Therapy Puncture Site ABG pH ABG pCO2 at Pt Temp ABG pO2 at Pt Temp ABG HCO3 ABG O2 Sat (Measured) ABG O2 Content ABG Base Excess Levy Test O2 Delivery Device Oxygen Flow Rate Vent Mode Vent Rate Mechanical Rate Pressure Support Vent Sodium Potassium Chloride Carbon Dioxide Anion Gap BUN Creatinine Est GFR (CKD-EPI)AfAm Est GFR (CKD-EPI)NonAf POC Glucometer 167 116 Random Glucose Calcium Total Bilirubin AST ALT Alkaline Phosphatase Total Protein Albumin Urine Color Urine Appearance Urine pH Ur Specific [place] Urine Protein Urine Glucose (UA) Urine Ketones Urine Blood Urine Nitrite Urine Bilirubin Urine Urobilinogen Ur Leukocyte Esterase Urine WBC (Auto) Urine RBC (Auto) Urine Casts (Auto) U Pathogenic Cast Auto U Epithel Cells (Auto) Urine Bacteria (Auto) ASSESSMENT/PLAN: Acute on chronic hypercapnic respiratory failure CHF CKD CAD HTN OA Negative AG: Etiology to be determined -NC O2 as tolerated with NIPPV support as needed -Continue Lasix -Monitor off systemic steroids -BD TX PRN -Follow up cultures -DVT prophylaxis -Daily weights -Strict I & O -Check urine protein/albumin ratio -Need to obtain further history from PMD to further elucidate etiology of her chronic respiratory failure as DDX can be very broad -4W / 4S monitoring for oximetry Dr Bell
--- NOTE | 2019-03-12 13:14 | PN ---
Physical Exam: SUBJECTIVE: Patient seen and examined at bedside this AM. No acute events. Pt to be transferred to [facility]. OBJECTIVE: Vital Signs Period Temp Pulse Resp BP Sys/Hernandez Pulse Ox Last 24 Hr 97.6 F-97.9 F 53-75 12-22 83-155/37-56 98-100 GENERAL: The patient is awake, alert, and fully oriented, in no acute distress. EYES: PERRL, extraocular movements intact, sclera anicteric, conjunctiva clear. No ptosis. ENT: Ears normal, nares patent, oropharynx clear without exudates, moist mucous membranes. NECK: supple. LUNGS: Breath sounds equal, clear to auscultation bilaterally, no wheezes, no crackles, no accessory muscle use. HEART: Regular rate and rhythm, S1, S2 without murmur, rub or gallop. ABDOMEN: Soft, nontender, nondistended, normoactive bowel sounds, no guarding, no rebound. Lt side CVA tenderness EXTREMITIES: 2+ pulses, warm, well-perfused, no edema. LLE hematoma ttp. PSYCH: Normal mood, normal affect. SKIN: Warm, dry, no rashes or lesions noted Laboratory Results - last 24 hr 03/11/19 03/11/19 03/11/19 10:00 16:20 16:43 WBC RBC Hgb Hct MCV MCH MCHC RDW Plt Count MPV Absolute Neuts (auto) Neutrophils % Neutrophils % (Manual) Band Neutrophils % Lymphocytes % Lymphocytes % (Manual) Monocytes % Monocytes % (Manual) Eosinophils % Eosinophils % (Manual) Basophils % Basophils % (Manual) Myelocytes % (Man) Promyelocytes % (Man) Blast Cells % (Manual) Nucleated RBC % Metamyelocytes Hypochromia Platelet Estimate Polychromasia Poikilocytosis Anisocytosis Microcytosis Macrocytosis Anticoagulation Therapy No Result Required. Puncture Site Right radial ABG pH 7.37 ABG pCO2 at Pt Temp 69.5 H ABG pO2 at Pt Temp 92.3 ABG HCO3 39.5 H ABG O2 Sat (Measured) 97.1 ABG O2 Content 13.1 ABG Base Excess 12.5 H Levy Test Positive O2 Delivery Device No Result Required. Oxygen Flow Rate Yes Vent Mode No Result Required. Vent Rate No Result Required. Mechanical Rate No Result Required. Pressure Support Vent No Result Required. Sodium Potassium Chloride Carbon Dioxide Anion Gap BUN Creatinine Est GFR (CKD-EPI)AfAm Est GFR (CKD-EPI)NonAf POC Glucometer 195 Random Glucose Calcium Total Bilirubin AST ALT Alkaline Phosphatase Total Protein Albumin Urine Color Yellow Urine Appearance Turbid Urine pH 5.5 Ur Specific [place] 1.010 Urine Protein Trace Urine Glucose (UA) Negative Urine Ketones Negative Urine Blood 1+ H Urine Nitrite Positive H Urine Bilirubin Negative Urine Urobilinogen 0.2 Ur Leukocyte Esterase 3+ H Urine WBC (Auto) 1365 Urine RBC (Auto) 22 Urine Casts (Auto) 11 U Pathogenic Cast Auto None seen U Epithel Cells (Auto) 2.2 Urine Bacteria (Auto) 503.6 03/11/19 03/12/19 03/12/19 21:34 05:35 05:35 WBC 6.4 RBC 3.22 L Hgb 9.3 L Hct 28.0 L MCV 86.9 MCH 29.0 MCHC 33.4 RDW 17.4 H Plt Count 169 MPV 9.5 Absolute Neuts (auto) 3.6 Neutrophils % 55.3 D Neutrophils % (Manual) 59.4 Band Neutrophils % 0.0 Lymphocytes % 16.5 D Lymphocytes % (Manual) 17.7 D Monocytes % 22.3 H D Monocytes % (Manual) 17 H D Eosinophils % 5.5 H D Eosinophils % (Manual) 5.2 H D Basophils % 0.4 Basophils % (Manual) 0.0 Myelocytes % (Man) 0 Promyelocytes % (Man) 0 Blast Cells % (Manual) 0 Nucleated RBC % 0 Metamyelocytes 0 Hypochromia 1+ Platelet Estimate Normal Polychromasia 0 Poikilocytosis 0 Anisocytosis 1+ Microcytosis 1+ Macrocytosis 0 Anticoagulation Therapy Puncture Site ABG pH ABG pCO2 at Pt Temp ABG pO2 at Pt Temp ABG HCO3 ABG O2 Sat (Measured) ABG O2 Content ABG Base Excess Levy Test O2 Delivery Device Oxygen Flow Rate Vent Mode Vent Rate Mechanical Rate Pressure Support Vent Sodium 140 Potassium 4.3 Chloride 97 L Carbon Dioxide 38 H Anion Gap 5 L BUN 107.4 H* Creatinine 1.8 H Est GFR (CKD-EPI)AfAm 29.64 Est GFR (CKD-EPI)NonAf 25.58 POC Glucometer 194 Random Glucose 165 H Calcium 10.6 H Total Bilirubin 0.8 AST 44 H ALT 67 H Alkaline Phosphatase 113 Total Protein 5.8 L Albumin 3.0 L Urine Color Urine Appearance Urine pH Ur Specific [place] Urine Protein Urine Glucose (UA) Urine Ketones Urine Blood Urine Nitrite Urine Bilirubin Urine Urobilinogen Ur Leukocyte Esterase Urine WBC (Auto) Urine RBC (Auto) Urine Casts (Auto) U Pathogenic Cast Auto U Epithel Cells (Auto) Urine Bacteria (Auto) 03/12/19 03/12/19 05:47 11:27 WBC RBC Hgb Hct MCV MCH MCHC RDW Plt Count MPV Absolute Neuts (auto) Neutrophils % Neutrophils % (Manual) Band Neutrophils % Lymphocytes % Lymphocytes % (Manual) Monocytes % Monocytes % (Manual) Eosinophils % Eosinophils % (Manual) Basophils % Basophils % (Manual) Myelocytes % (Man) Promyelocytes % (Man) Blast Cells % (Manual) Nucleated RBC % Metamyelocytes Hypochromia Platelet Estimate Polychromasia Poikilocytosis Anisocytosis Microcytosis Macrocytosis Anticoagulation Therapy Puncture Site ABG pH ABG pCO2 at Pt Temp ABG pO2 at Pt Temp ABG HCO3 ABG O2 Sat (Measured) ABG O2 Content ABG Base Excess Levy Test O2 Delivery Device Oxygen Flow Rate Vent Mode Vent Rate Mechanical Rate Pressure Support Vent Sodium Potassium Chloride Carbon Dioxide Anion Gap BUN Creatinine Est GFR (CKD-EPI)AfAm Est GFR (CKD-EPI)NonAf POC Glucometer 167 116 Random Glucose Calcium Total Bilirubin AST ALT Alkaline Phosphatase Total Protein Albumin Urine Color Urine Appearance Urine pH Ur Specific [place] Urine Protein Urine Glucose (UA) Urine Ketones Urine Blood Urine Nitrite Urine Bilirubin Urine Urobilinogen Ur Leukocyte Esterase Urine WBC (Auto) Urine RBC (Auto) Urine Casts (Auto) U Pathogenic Cast Auto U Epithel Cells (Auto) Urine Bacteria (Auto) Active Medications Generic Name Dose Route Start Last Admin Trade Name Freq PRN Reason Stop Dose Admin Albuterol Sulfate 1 amp 03/08/19 19:37 Ventolin 0.083% Nebulizer Soln - NEB Q6H PRN SHORT OF BREATH/WHEEZING Allopurinol 100 mg 03/09/19 10:00 03/12/19 09:53 Zyloprim - PO 100 mg DAILY DARY Administration Aspirin 81 mg 03/09/19 10:00 03/12/19 09:53 Ecotrin - PO 81 mg DAILY DARY Administration Atorvastatin Calcium 20 mg 03/08/19 22:00 03/11/19 21:22 Lipitor - PO 20 mg HS DARY Administration Bisacodyl 5 mg 03/08/19 22:00 Dulcolax - PO HS PRN CONSTIPATION Carvedilol 12.5 mg 03/08/19 22:00 03/12/19 09:57 Coreg - PO 12.5 mg BID DARY Administration Chlorhexidine Gluconate 1 applic 03/08/19 22:00 03/11/19 21:23 Hibiclens For Decolonization - TP 1 applic HS DARY Administration Furosemide 80 mg 03/11/19 10:00 03/12/19 09:57 Lasix - PO 80 mg DAILY DARY Administration Gabapentin 300 mg 03/08/19 22:00 03/11/19 21:22 Neurontin - PO 300 mg HS DARY Administration Heparin Sodium (Porcine) 5,000 unit 03/08/19 22:00 03/12/19 09:57 Heparin - SQ 5,000 unit BID DARY Administration Insulin Aspart 1 vial 03/09/19 22:00 03/12/19 11:42 Novolog Vial Sliding Scale - SQ Not Given ACHS [facility] Protocol Insulin Detemir 18 units 03/08/19 22:00 03/11/19 21:35 Levemir Vial SQ 18 units HS DARY Administration Isosorbide Mononitrate 90 mg 03/09/19 10:00 03/12/19 09:57 Imdur - PO 90 mg DAILY DARY Administration Latanoprost 1 drop 03/08/19 22:00 03/11/19 21:33 Xalatan 0.005% Eye Drops - OU 1 drop HS DARY Administration Levothyroxine Sodium 50 mcg 03/09/19 07:00 03/12/19 05:59 Synthroid - PO 50 mcg AM DARY Administration Lidocaine 1 patch 03/10/19 10:00 03/11/19 15:07 Lidoderm Patch - TP 1 patch DAILY PRN Administration LOWER BACK PAIN Miscellaneous 1 each 03/09/19 22:00 03/11/19 21:22 Lidoderm Patch Removal MC 1 each DAILY@2200 DARY Administration Mupirocin 1 applic 03/08/19 22:00 03/12/19 09:53 Bactroban Ointment (For Decolonization) - NS 03/13/19 21:59 1 applic BID DARY Administration Non-Formulary Med ( 1 each 03/09/19 22:00 03/12/19 09:54 Systane Ultra Eye OU 1 each Drops) BID DARY Administration Polyethylene Glycol 17 gm 03/09/19 10:00 03/12/19 09:54 Miralax (For Daily Use) - PO Not Given DAILY DARY Ranitidine HCl 150 mg 03/08/19 22:00 03/12/19 09:53 Zantac - PO 150 mg BID DARY Administration Tamsulosin HCl 0.4 mg 03/09/19 08:30 03/12/19 08:38 Flomax - PO 0.4 mg DAILY@0830 DARY Administration ASSESSMENT/PLAN: Patient is an 83F with history of HTN, HLD, CHF, CKD, hypothyroidism with CHF exacerbation. CV -> CHF exacerbation - Last echo did not show reduced EF - Lasix 40BID monitoring Urine output, Ur Cr, daily weights - Tele monitoring - continue ASA, Carvedilol 12.5BID, atorvastatin - imdur - continue other home meds as prescribed Resp-> Acute hypercapneic hypoxemic RF possibly 2/2 COPD vs CHF exacerbation - pt showing increased pulmonary vascular congestion on CXR, and theoretically pt's ONLINE TRADER perceives this as hyperventilation, and thus our ONLINE TRADER will decrease respiratory rate resulting in hypercapnia. - Bipap prn increased delta gap between IPAP and EPAP as well as the rate to help decrease the CO2, will monitor closely as it can lower respiratory drive. - ABG shows good oxygenation with hypercapnea of 80, HCO3 37.8 compensating adequately but showing a component of contraction alkalosis from overdiuresis as well. - no longer receiving IV steroids. ID - No fevers, signs of infection at this time - Will monitor - C diff toxin negative, Cdiff Ag positive - ID recs appreciated, doubt pt needs isolation without confirmation with PCR. - off abx - 3+Leuk esterase with >1000Wbc's pt had symptoms prior to johnston, started on ceftriaxone Renal -> prerenal azotemia - likely 2/2 to overdiuresis vs acute steroid use - Doubt GI bleed given absence of melena on exam - pt retaining urine (300cc on bladder scan) - Johnston was placed putting out 300cc of urine - pt looks dry on exam, renal would like to continue lasix dose - renal sono no hydro on it, normal sized kidneys. -continue lasix dose per renal, continue coreg, Orthopedic -> Left foot pain - most likely 2/2 OA - foot xray negative - per primary would like an ortho consult with Dr. Kline for further eval. 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 Radha Sunshine regarding patients cause of COPD. Dr. Jam Sunshine will get back to me as he has been following the patient more closely. Pt is a Full code. We will continue to follow this patient in the ICU. Thank you for this consultative opportunity! Visit type - Emergency Visit Emergency Visit: Yes ED Registration Date: 03/07/19 Care time: The patient presented to the Emergency Department on the above date and was hospitalized for further evaluation of their emergent condition. - New Patient This patient is new to me today: Yes Date on this admission: 03/12/19 - Critical Care Critical Care patient: Yes Total Critical Care Time (in minutes): 35 Critical Care Statement: The care of this patient involved high complexity decision making to prevent further life threatening deterioration of the patient 's condition and/or to evaluate & treat vital organ system(s) failure or risk of failure. - Discharge Referral Referred to [facility] Med [facility] No ATTENDING PHYSICIAN STATEMENT I saw and evaluated the patient. I reviewed the resident's note and discussed the case with the resident. I agree with the resident's findings and plan as documented. SUBJECTIVE: OBJECTIVE: ASSESSMENT AND PLAN:
--- NOTE | 2019-03-12 13:43 | PN ---
Progress Note, Physician History of Present Illness: stable improving - Current Medication List Current Medications: Active Medications Albuterol Sulfate (Ventolin 0.083% Nebulizer Soln -) 1 amp NEB Q6H PRN PRN Reason: SHORT OF BREATH/WHEEZING Allopurinol (Zyloprim -) 100 mg PO DAILY [facility] Last Admin: 03/12/19 09:53 Dose: 100 mg Aspirin (Ecotrin -) 81 mg PO DAILY [facility] Last Admin: 03/12/19 09:53 Dose: 81 mg Atorvastatin Calcium (Lipitor -) 20 mg PO HS [facility] Last Admin: 03/11/19 21:22 Dose: 20 mg Bisacodyl (Dulcolax -) 5 mg PO HS PRN PRN Reason: CONSTIPATION Carvedilol (Coreg -) 12.5 mg PO BID [facility] Last Admin: 03/12/19 09:57 Dose: 12.5 mg Chlorhexidine Gluconate (Hibiclens For Decolonization -) 1 applic TP HS [facility] Last Admin: 03/11/19 21:23 Dose: 1 applic Furosemide (Lasix -) 80 mg PO DAILY [facility] Last Admin: 03/12/19 09:57 Dose: 80 mg Gabapentin (Neurontin -) 300 mg PO HS [facility] Last Admin: 03/11/19 21:22 Dose: 300 mg Heparin Sodium (Porcine) (Heparin -) 5,000 unit SQ BID [facility] Last Admin: 03/12/19 09:57 Dose: 5,000 unit Insulin Aspart (Novolog Vial Sliding Scale -) 1 vial SQ [facility]; Protocol Last Admin: 03/12/19 11:42 Dose: Not Given Insulin Detemir (Levemir Vial) 18 units SQ [facility] Last Admin: 03/11/19 21:35 Dose: 18 units Isosorbide Mononitrate (Imdur -) 90 mg PO DAILY [facility] Last Admin: 03/12/19 09:57 Dose: 90 mg Latanoprost (Xalatan 0.005% Eye Drops -) 1 drop OU HS [facility] Last Admin: 03/11/19 21:33 Dose: 1 drop Levothyroxine Sodium (Synthroid -) 50 mcg PO AM [facility] Last Admin: 03/12/19 05:59 Dose: 50 mcg Lidocaine (Lidoderm Patch -) 1 patch TP DAILY PRN PRN Reason: LOWER BACK PAIN Last Admin: 09/23/19 15:07 Dose: 1 patch Miscellaneous (Lidoderm Patch Removal) 1 each MC DAILY@2200 [facility] Last Admin: 03/11/19 21:22 Dose: 1 each Mupirocin (Bactroban Ointment (For Decolonization) -) 1 applic NS BID [facility] Stop: 03/13/19 21:59 Last Admin: 03/12/19 09:53 Dose: 1 applic Non-Formulary Med ( Systane Ultra Eye Drops) 1 each OU BID [facility] Last Admin: 03/12/19 09:54 Dose: 1 each Polyethylene Glycol (Miralax (For Daily Use) -) 17 gm PO DAILY [facility] Last Admin: 03/12/19 09:54 Dose: Not Given Ranitidine HCl (Zantac -) 150 mg PO BID [facility] Last Admin: 03/12/19 09:53 Dose: 150 mg Tamsulosin HCl (Flomax -) 0.4 mg PO DAILY@0830 [facility] Last Admin: 03/12/19 08:38 Dose: 0.4 mg - Objective Vital Signs: Vital Signs Temperature 97.8 F 03/12/19 12:00 Pulse Rate 72 03/12/19 12:00 Respiratory Rate 21 H 03/12/19 12:00 Blood Pressure 134/52 L 03/12/19 12:00 O2 Sat by Pulse Oximetry (%) 100 03/12/19 09:49 Constitutional: Yes: No Distress, Calm Cardiovascular: Yes: Regular Rate and Rhythm Respiratory: Yes: Regular, On Nasal O2, Poor Air Entry Gastrointestinal: Yes: Normal Bowel Sounds, Soft Musculoskeletal: Yes: WNL Extremities: Yes: WNL Neurological: Yes: Alert, Oriented Labs: CBC, BMP 03/12/19 05:35 03/12/19 05:35 Assessment/Plan Problem List - Problems (1) Acute on chronic respiratory failure with hypoxia and hypercapnia Code(s): J96.21 - ACUTE AND CHRONIC RESPIRATORY FAILURE WITH HYPOXIA; J96.22 - ACUTE AND CHRONIC RESPIRATORY FAILURE WITH HYPERCAPNIA (2) ANDRÉS (acute kidney injury) Code(s): N17.9 - ACUTE KIDNEY FAILURE, UNSPECIFIED (3) CRF (chronic renal failure) Code(s): N18.9 - CHRONIC KIDNEY DISEASE, UNSPECIFIED Qualifiers: Chronic kidney disease stage: stage 4 (severe) Qualified Code(s): N18.4 - Chronic kidney disease, stage 4 (severe) (4) Hyperkalemia Code(s): E87.5 - HYPERKALEMIA (5) Fall Code(s): W19.XXXA - UNSPECIFIED FALL, INITIAL ENCOUNTER Qualifiers: Encounter type: initial encounter Qualified Code(s): W19.XXXA - Unspecified fall, initial encounter (6) CAD (coronary artery disease) Code(s): I25.10 - ATHSCL HEART DISEASE OF [place] CORONARY ARTERY W/O ANG PCTRS Qualifiers: Coronary Disease-Associated Artery/Lesion type: [place] artery [place] vs. transplanted heart: [place] heart Associated angina: with unspecified angina Qualified Code(s): I25.119 - Atherosclerotic heart disease of [place] coronary artery with unspecified angina pectoris (7) Diabetes mellitus Code(s): E11.9 - TYPE 2 DIABETES MELLITUS WITHOUT COMPLICATIONS Qualifiers: Diabetes mellitus type: type 2 Diabetes mellitus mcfp insulin use: unspecified extermination supervisor insulin use status Diabetes mellitus complication status : with other specified complication Qualified Code(s): E11.69 - Type 2 diabetes mellitus with other specified complication (8) Foot trauma Code(s): S99.929A - UNSPECIFIED INJURY OF UNSPECIFIED FOOT, INITIAL ENCOUNTER plan continue as per icu send urine cx close watch resp support rest as per the team cc40 min
--- NOTE | 2019-03-12 13:45 | PN ---
Progress Note, Physician History of Present Illness: stable no new issues - Current Medication List Current Medications: Active Medications Albuterol Sulfate (Ventolin 0.083% Nebulizer Soln -) 1 amp NEB Q6H PRN PRN Reason: SHORT OF BREATH/WHEEZING Allopurinol (Zyloprim -) 100 mg PO DAILY [facility] Last Admin: 03/12/19 09:53 Dose: 100 mg Aspirin (Ecotrin -) 81 mg PO DAILY [facility] Last Admin: 03/12/19 09:53 Dose: 81 mg Atorvastatin Calcium (Lipitor -) 20 mg PO HS [facility] Last Admin: 03/11/19 21:22 Dose: 20 mg Bisacodyl (Dulcolax -) 5 mg PO HS PRN PRN Reason: CONSTIPATION Carvedilol (Coreg -) 12.5 mg PO BID [facility] Last Admin: 03/12/19 09:57 Dose: 12.5 mg Chlorhexidine Gluconate (Hibiclens For Decolonization -) 1 applic TP HS [facility] Last Admin: 03/11/19 21:23 Dose: 1 applic Furosemide (Lasix -) 80 mg PO DAILY [facility] Last Admin: 03/12/19 09:57 Dose: 80 mg Gabapentin (Neurontin -) 300 mg PO HS [facility] Last Admin: 03/11/19 21:22 Dose: 300 mg Heparin Sodium (Porcine) (Heparin -) 5,000 unit SQ BID [facility] Last Admin: 03/12/19 09:57 Dose: 5,000 unit Insulin Aspart (Novolog Vial Sliding Scale -) 1 vial SQ [facility]; Protocol Last Admin: 03/12/19 11:42 Dose: Not Given Insulin Detemir (Levemir Vial) 18 units SQ [facility] Last Admin: 03/11/19 21:35 Dose: 18 units Isosorbide Mononitrate (Imdur -) 90 mg PO DAILY [facility] Last Admin: 03/12/19 09:57 Dose: 90 mg Latanoprost (Xalatan 0.005% Eye Drops -) 1 drop OU HS [facility] Last Admin: 03/11/19 21:33 Dose: 1 drop Levothyroxine Sodium (Synthroid -) 50 mcg PO AM [facility] Last Admin: 03/12/19 05:59 Dose: 50 mcg Lidocaine (Lidoderm Patch -) 1 patch TP DAILY PRN PRN Reason: LOWER BACK PAIN Last Admin: 03/11/19 15:07 Dose: 1 patch Miscellaneous (Lidoderm Patch Removal) 1 each MC DAILY@2200 [facility] Last Admin: 03/11/19 21:22 Dose: 1 each Mupirocin (Bactroban Ointment (For Decolonization) -) 1 applic NS BID [facility] Stop: 03/13/19 21:59 Last Admin: 03/12/19 09:53 Dose: 1 applic Non-Formulary Med ( Systane Ultra Eye Drops) 1 each OU BID [facility] Last Admin: 03/12/19 09:54 Dose: 1 each Polyethylene Glycol (Miralax (For Daily Use) -) 17 gm PO DAILY [facility] Last Admin: 03/12/19 09:54 Dose: Not Given Ranitidine HCl (Zantac -) 150 mg PO BID [facility] Last Admin: 03/12/19 09:53 Dose: 150 mg Tamsulosin HCl (Flomax -) 0.4 mg PO DAILY@0830 [facility] Last Admin: 03/12/19 08:38 Dose: 0.4 mg - Objective Vital Signs: Vital Signs Temperature 97.8 F 03/12/19 12:00 Pulse Rate 72 03/12/19 12:00 Respiratory Rate 21 H 03/12/19 12:00 Blood Pressure 134/52 L 03/12/19 12:00 O2 Sat by Pulse Oximetry (%) 100 03/12/19 09:49 Constitutional: Yes: No Distress, Calm Cardiovascular: Yes: S1, S2 Gastrointestinal: Yes: Normal Bowel Sounds, Soft Genitourinary: Yes: [place] Present Musculoskeletal: Yes: WNL Extremities: Yes: WNL Neurological: Yes: Alert, Confusion Psychiatric: Yes: Alert, Oriented Labs: CBC, BMP 03/12/19 05:35 03/12/19 05:35 Assessment/Plan Problem List - Problems (1) Acute on chronic respiratory failure with hypoxia and hypercapnia Code(s): J96.21 - ACUTE AND CHRONIC RESPIRATORY FAILURE WITH HYPOXIA; J96.22 - ACUTE AND CHRONIC RESPIRATORY FAILURE WITH HYPERCAPNIA (2) ANDRÉS (acute kidney injury) Code(s): N17.9 - ACUTE KIDNEY FAILURE, UNSPECIFIED (3) CRF (chronic renal failure) Code(s): N18.9 - CHRONIC KIDNEY DISEASE, UNSPECIFIED Qualifiers: Chronic kidney disease stage: stage 4 (severe) Qualified Code(s): N18.4 - Chronic kidney disease, stage 4 (severe) (4) Hyperkalemia Code(s): E87.5 - HYPERKALEMIA (5) Fall Code(s): W19.XXXA - UNSPECIFIED FALL, INITIAL ENCOUNTER Qualifiers: Encounter type: initial encounter Qualified Code(s): W19.XXXA - Unspecified fall, initial encounter (6) CAD (coronary artery disease) Code(s): I25.10 - ATHSCL HEART DISEASE OF [place] CORONARY ARTERY W/O ANG PCTRS Qualifiers: Coronary Disease-Associated Artery/Lesion type: [place] artery [place] vs. 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
[2019-03-12 13:46] LABS: EPI CELLS 0.5 /HPF (0-5/HPF); HYALINE CASTS 24 /lpf (0-8); URINE APPEARANCE CLOUDY; URINE BACTERIA 129.2 /hpf (NEGATIVE); URINE BILIRUBIN NEGATIVE (NEGATIVE); URINE COLOR YELLOW; URINE GLUCOSE (UA) NEGATIVE (NEGATIVE); URINE KETONE NEGATIVE (NEGATIVE); URINE LEUK ESTERASE 3+ (NEGATIVE); URINE NITRITE POSITIVE (NEGATIVE); URINE PROTEIN NEGATIVE (NEGATIVE); URINE RBC 1 /hpf (0-4); URINE UROBILINOGEN 0.2 mg/dL (0.2-1.0); URINE WBC 155 /hpf (0-5)
[2019-03-12] MEDS ORDERED: ACETAMINOPHEN 1000 MG/100 ML VIAL (NON FORMULARY) IVPB ONE (13:47)
--- NOTE | 2019-03-12 15:34 | PN ---
Progress Note (short form) - Note Progress Note: Renal follow up for CKD Seen and examined in the ICU awake and alert feels a little better sob improved but still present on NC O2 making urine via [place] catheter Vital Signs Temperature 98.2 F 03/12/19 14:00 Pulse Rate 70 03/12/19 14:00 Respiratory Rate 22 H 03/12/19 14:00 Blood Pressure 117/59 L 03/12/19 14:00 O2 Sat by Pulse Oximetry (%) 100 03/12/19 09:49 Intake & Output 03/09/19 03/10/19 03/11/19 03/12/19 23:59 23:59 23:59 23:59 Intake Total 730 710 800 800 Output Total 3 1150 1100 Balance 727 710 -350 -300 Weight 73.936 kg 74.162 kg 73.527 kg 71.123 kg on BIPAP no acute distress + edema in LE CBC, BMP 03/12/19 05:35 03/12/19 05:35 Current Medications Albuterol Sulfate (Ventolin 0.083% Nebulizer Soln -) 1 amp NEB Q6H PRN PRN Reason: SHORT OF BREATH/WHEEZING Allopurinol (Zyloprim -) 100 mg PO DAILY [facility] Last Admin: 03/12/19 09:53 Dose: 100 mg Aspirin (Ecotrin -) 81 mg PO DAILY [facility] Last Admin: 03/12/19 09:53 Dose: 81 mg Atorvastatin Calcium (Lipitor -) 20 mg PO HS [facility] Last Admin: 03/11/19 21:22 Dose: 20 mg Bisacodyl (Dulcolax -) 5 mg PO HS PRN PRN Reason: CONSTIPATION Carvedilol (Coreg -) 12.5 mg PO BID [facility] Last Admin: 03/12/19 09:57 Dose: 12.5 mg Chlorhexidine Gluconate (Hibiclens For Decolonization -) 1 applic TP HS [facility] Last Admin: 03/11/19 21:23 Dose: 1 applic Furosemide (Lasix -) 80 mg PO DAILY [facility] Last Admin: 03/12/19 09:57 Dose: 80 mg Gabapentin (Neurontin -) 300 mg PO HS [facility] Last Admin: 03/11/19 21:22 Dose: 300 mg Heparin Sodium (Porcine) (Heparin -) 5,000 unit SQ BID [facility] Last Admin: 09/24/19 09:57 Dose: 5,000 unit Insulin Aspart (Novolog Vial Sliding Scale -) 1 vial SQ [facility]; Protocol Last Admin: 03/12/19 11:42 Dose: Not Given Insulin Detemir (Levemir Vial) 18 units SQ HS [facility] Last Admin: 03/11/19 21:35 Dose: 18 units Isosorbide Mononitrate (Imdur -) 90 mg PO DAILY [facility] Last Admin: 03/12/19 09:57 Dose: 90 mg Latanoprost (Xalatan 0.005% Eye Drops -) 1 drop OU HS [facility] Last Admin: 03/11/19 21:33 Dose: 1 drop Levothyroxine Sodium (Synthroid -) 50 mcg PO AM [facility] Last Admin: 03/12/19 05:59 Dose: 50 mcg Lidocaine (Lidoderm Patch -) 1 patch TP DAILY PRN PRN Reason: LOWER BACK PAIN Last Admin: 03/11/19 15:07 Dose: 1 patch Miscellaneous (Lidoderm Patch Removal) 1 each MC DAILY@2200 [facility] Last Admin: 03/11/19 21:22 Dose: 1 each Mupirocin (Bactroban Ointment (For Decolonization) -) 1 applic NS BID [facility] Stop: 03/13/19 21:59 Last Admin: 03/12/19 09:53 Dose: 1 applic Non-Formulary Med ( Systane Ultra Eye Drops) 1 each OU BID [facility] Last Admin: 03/12/19 09:54 Dose: 1 each Polyethylene Glycol (Miralax (For Daily Use) -) 17 gm PO DAILY [facility] Last Admin: 03/12/19 09:54 Dose: Not Given Ranitidine HCl (Zantac -) 150 mg PO BID [facility] Last Admin: 03/12/19 09:53 Dose: 150 mg Tamsulosin HCl (Flomax -) 0.4 mg PO DAILY@0830 [facility] Last Admin: 03/12/19 08:38 Dose: 0.4 mg 83 year old [place] woman with history of CKD stage 4 (baseline Cr ~2), DM Type 2, CHF with diastolic dysfunction, hypertension who presented from home with a fall and diarrhea. 1. CKD stage 4 2. Fall 3. Diarrhea r/o infectious etiology 4. CHF with diastolic dysfunction 5. Anemia 6. Hypertension Cr improving, BUN improving but still markedly elevated no melena reported by nurse but Hgb with slow downtrend, check stool occult blood Continue Lasix for now as BUN is improving Trend renal function and electrolytes closely. Dose all meds for CrCl < 15 Fall precautions Diarrhea work up as per GI BIPAP as per pulmonary Trend H/H, no indication for RADHA Continue Ginger Tian DO
[2019-03-12] MEDS ORDERED: LIDOCAINE 5% TOPICAL PATCH TP PRN (21:56)
[2019-03-12] MEDS ORDERED: ALBUTEROL SO4 0.083% IH SOL 2.5 MG/3 ML VIAL.NEB. NEB PRN (21:56)
[2019-03-12] MEDS ORDERED: BISACODYL 5 MG TABLET.DR (FP) PO PRN (21:56)
[2019-03-12] MEDS ORDERED: NON-FORMULARY MED OU SCH (22:00)
[2019-03-12] MEDS ORDERED: LIDOCAINE PATCH REMOVAL MC SCH (22:00)
[2019-03-12] MEDS ORDERED: MUPIROCIN 2% TOPICAL OINTMENT FOR DECOLONIZATION NS SCH (22:00)
[2019-03-12] MEDS: ATORVASTATIN CA 20 MG TABLET (FP) PO SCH (23:14)
[2019-03-12] MEDS: LATANOPROST 0.005% OPHTH SOLN 2.5ML BOTTLE OU SCH (23:14)
[2019-03-12] MEDS: GABAPENTIN 300 MG CAPSULE (FP) PO SCH (23:14)
[2019-03-12] MEDS: CARVEDILOL 12.5 MG TABLET (FP) PO SCH (23:15)
[2019-03-12] MEDS: INSULIN (LEVEMIR) 100 UNITS/ML UNITS SQ SCH (23:24)
[2019-03-13] MEDS: FUROSEMIDE 40 MG TABLET (FP) PO SCH (05:38)
[2019-03-13] MEDS: LEVOTHYROXINE NA 50 MCG TABLET (FP) PO SCH (06:17)
[2019-03-13] MEDS: INSULIN SLIDING SCALE (NOVOLOG) 1 VIAL SQ SCH ×4 (06:17→22:30)
[2019-03-13 07:05] LABS: BASO % 0.4 % (0-2.0); EOS % 5.2 % (0-4.5); HEMATOCRIT 28.5 % (32.4-45.2); HEMOGLOBIN 9.6 GM/dL (10.7-15.3); LYMPH % 17.8 % (8-40); MCHC 33.6 g/dl (32.0-36.0); MEAN CELL VOLUME 86.3 fl (80-96); MEAN PLT VOLUME 9.7 fl (7.5-11.1); NEUT % 59.6 % (42.8-82.8); PLATELET COUNT 178 K/MM3 (134-434); RBC 3.31 M/mm3 (3.60-5.2); RDW 17.8 % (11.6-15.6); WHITE BLOOD COUNT 7.5 K/mm3 (4.0-10.0)
[2019-03-13 07:31] LABS: ALBUMIN 3.1 g/dl (3.4-5.0); BILIRUBIN,TOTAL 0.6 mg/dL (0.2-1); BLOOD UREA NITROGEN 96.7 mg/dL (7-18); CALCIUM 10.6 mg/dL (8.5-10.1); CREATININE 1.7 mg/dL (0.55-1.3); TOT PROT 5.9 g/dl (6.4-8.2)
[2019-03-13] MEDS: ISOSORBIDE MONONITRATE 30 MG TAB.SR.24H (FP) PO SCH (10:19)
[2019-03-13] MEDS: ALLOPURINOL 100 MG TABLET (FP) PO SCH (10:20)
[2019-03-13] MEDS: TAMSULOSIN HCL 0.4 MG CAP PO SCH (10:20)
[2019-03-13] MEDS: RANITIDINE HCL 150 MG TABLET (FP) PO SCH ×2 (10:20→22:27)
[2019-03-13] MEDS: HEPARIN NA (PORCINE) 5,000 UNITS/ML 1ML VIAL SQ SCH ×2 (10:20→22:27)
[2019-03-13] MEDS: CARVEDILOL 12.5 MG TABLET (FP) PO SCH ×2 (10:20→22:27)
[2019-03-13] MEDS: ASPIRIN COATED 81 MG TABLET.EC PO SCH (10:20)
[2019-03-13] MEDS: ARTIFICIAL TEARS (POLYVINYL ALCOHOL) OPTH DROPS OU SCH ×2 (10:24→22:32)
--- NOTE | 2019-03-13 10:56 | CON.ORTH ---
Consult Reason for Consultation:: left foot pain - Past Medical History Cardio/Vascular: Yes: CAD (non-obstructive), CHF, HTN, Hyperlipdemia, Other ( Angina pectoris) Gastrointestinal: Yes: Constipation, Diverticulosis, GERD, Other (colon polyps: sessil serrated adenomas x 2 2014) Renal/: Yes: Renal Inusuff Musculoskeletal: Yes: Other (Spinal stenosis) Endocrine: Yes: Diabetes Mellitus (Insulin dependent), Hypothyroidism - Past Surgical History Past Surgical History: Yes: Hysterectomy ([place], BSO in 1981), Oopherectomy - Alcohol/Substance Use Hx Alcohol Use: No History of Substance Use: reports: None - Smoking History Smoking history: Never smoked Have you smoked in the past 12 months: No Aproximately how many cigarettes per day: 0 - Social History Usual Living Arrangement: With Spouse ADL: Independent History of Recent Travel: Yes (WENT TO [facility] TWO YEARS AGO) Home Medications - Allergies Allergies/Adverse Reactions: Allergies Allergy/AdvReac Type Severity Reaction Status Date / Time No Known Allergies Allergy Verified 03/07/19 12:29 - Home Medications Home Medications: Ambulatory Orders Aspirin Coated [Ecotrin -] 81 mg PO DAILY #30 tablet.ec 07/09/16 Levothyroxine [Synthroid -] 50 mcg PO DAILY #90 tablet 07/09/16 Allopurinol [Zyloprim -] 100 mg PO DAILY 10/02/17 Atorvastatin Ca [Lipitor] 20 mg PO HS 10/02/17 Gabapentin [Neurontin -] 300 mg PO HS 10/02/17 Acetaminophen [Tylenol .Extra-Strength -] 500 mg PO Q6H PRN tablet 11/12/17 Tamsulosin HCl [Flomax -] 0.4 mg PO DAILY@0830 #90 cap.er.24h 11/12/17 Bisacodyl [Bisacodyl -] 5 mg PO ASDIR 11/26/18 Carvedilol [Coreg -] 12.5 mg PO BID 11/26/18 Cinacalcet HCl [Sensipar] 30 mg PO DAILY 11/26/18 Hydralazine HCl 50 mg PO TID 11/26/18 Isosorbide Mononitrate [Imdur -] 90 mg PO DAILY 11/26/18 Latanoprost/Pf [Latanoprost 0.005% Eye Drop] 1 drp OP DAILY 11/26/18 Polyethylene Glycol 3350 [Miralax 119 gm Btl -] 17 gm PO DAILY 11/26/18 Potassium Chloride 20 meq PO BID 11/26/18 Ranitidine HCl [Zantac] 150 mg PO BID 11/26/18 Insulin (Levemir) [Levemir Vial] 18 units SQ HS units 12/08/18 Furosemide 100 mg PO BID 02/05/19 Colchicine [Colcrys] 0.6 mg PO BID cap 02/09/19 Physical Exam for Ortho Vital Signs: Vital Signs Temperature 98.4 F 03/13/19 05:27 Pulse Rate 73 03/13/19 05:27 Respiratory Rate 20 03/13/19 05:27 Blood Pressure 135/68 03/13/19 05:27 O2 Sat by Pulse Oximetry (%) 98 03/12/19 21:00 Labs: CBC, BMP 03/13/19 05:20 03/13/19 05:20 - Lower Extremity Foot: Yes: Left, Hematoma, Limited ROM, Pain, Swelling, Tenderness, Other (nvi) Imaging - Results X-ray: Report Reviewed, Image Reviewed Assessment/Plan 83 y/o F with diastolic HF, CKD, CAD, HTN, OA who has a baseline Oxygen requirement of 2-3L. She presented to the ED with fatigue, SOB and diarrhea. Pt is s/p fall c/o left foot pain. a/p- left foot contusion vs ? occult 4th metatarsal neck fx Recommend post-op shoe PT eval wbat ice, elevation d/w Dr. Kline
--- NOTE | 2019-03-13 11:26 | PN ---
Progress Note, Physician History of Present Illness: PULMONARY ALERT,ON NASAL O2,COMFORTABLE,-RESP DISTRESS - Current Medication List Current Medications: Active Medications Albuterol Sulfate (Ventolin 0.083% Nebulizer Soln -) 1 amp NEB RQID PRN PRN Reason: SHORT OF BREATH/WHEEZING Allopurinol (Zyloprim -) 100 mg PO DAILY [facility] Last Admin: 03/13/19 10:20 Dose: 100 mg Artificial Tears (Artificial Tears) 1 drop OU BID [facility] Last Admin: 03/13/19 10:24 Dose: 1 drp Aspirin (Ecotrin -) 81 mg PO DAILY [facility] Last Admin: 03/13/19 10:20 Dose: 81 mg Atorvastatin Calcium (Lipitor -) 20 mg PO HS [facility] Last Admin: 03/12/19 23:14 Dose: 20 mg Bisacodyl (Dulcolax -) 5 mg PO HS PRN PRN Reason: CONSTIPATION Carvedilol (Coreg -) 12.5 mg PO BID [facility] Last Admin: 03/13/19 10:20 Dose: 12.5 mg Furosemide (Lasix -) 80 mg PO DAILY@0600 [facility] Last Admin: 03/13/19 05:38 Dose: 80 mg Gabapentin (Neurontin -) 300 mg PO [facility] Last Admin: 03/12/19 23:14 Dose: 300 mg Heparin Sodium (Porcine) (Heparin -) 5,000 unit SQ BID [facility] Last Admin: 03/13/19 10:20 Dose: 5,000 unit Insulin Aspart (Novolog Vial Sliding Scale -) 1 vial SQ [facility]; Protocol Last Admin: 03/13/19 06:17 Dose: 4 unit Insulin Detemir (Levemir Vial) 18 units SQ [facility] Last Admin: 03/12/19 23:24 Dose: 18 units Isosorbide Mononitrate (Imdur -) 90 mg PO DAILY [facility] Last Admin: 03/13/19 10:19 Dose: 90 mg Latanoprost (Xalatan 0.005% Eye Drops -) 1 drop OU HS [facility] Last Admin: 03/12/19 23:14 Dose: 1 drop Levothyroxine Sodium (Synthroid -) 50 mcg PO AM [facility] Last Admin: 03/13/19 06:17 Dose: 50 mcg Lidocaine (Lidoderm Patch -) 1 patch TP DAILY PRN PRN Reason: LOWER BACK PAIN Miscellaneous (Lidoderm Patch Removal) 1 each MC DAILY@2200 [facility] Polyethylene Glycol (Miralax (For Daily Use) -) 17 gm PO DAILY [facility] Ranitidine HCl (Zantac -) 150 mg PO BID [facility] Last Admin: 03/13/19 10:20 Dose: 150 mg Tamsulosin HCl (Flomax -) 0.4 mg PO DAILY@0830 [facility] Last Admin: 03/13/19 10:20 Dose: 0.4 mg - Objective Vital Signs: Vital Signs Temperature 98 F 03/13/19 09:00 Pulse Rate 68 03/13/19 09:00 Respiratory Rate 18 03/13/19 09:00 Blood Pressure 130/54 L 03/13/19 09:00 O2 Sat by Pulse Oximetry (%) 98 03/12/19 21:00 Constitutional: Yes: Well Nourished, Calm, Obese Eyes: Yes: WNL HENT: Yes: WNL Neck: Yes: WNL Cardiovascular: Yes: Regular Rate and Rhythm, S1, S2 Respiratory: Yes: Diminished Gastrointestinal: Yes: Normal Bowel Sounds, Soft Extremities: Yes: WNL Edema: Yes Labs: CBC, BMP 03/13/19 05:20 03/13/19 05:20 Problem List - Problems (1) Acute on chronic respiratory failure with hypoxia and hypercapnia Code(s): J96.21 - ACUTE AND CHRONIC RESPIRATORY FAILURE WITH HYPOXIA; J96.22 - ACUTE AND CHRONIC RESPIRATORY FAILURE WITH HYPERCAPNIA (2) CHF exacerbation Code(s): I50.9 - HEART FAILURE, UNSPECIFIED Qualifiers: Heart failure type: unspecified Qualified Code(s): I50.9 - Heart failure, unspecified (3) Anemia Code(s): D64.9 - ANEMIA, UNSPECIFIED (4) Bilateral lower extremity edema Code(s): R60.0 - LOCALIZED EDEMA (5) CAD (coronary artery disease) Code(s): I25.10 - ATHSCL HEART DISEASE OF [place] CORONARY ARTERY W/O ANG PCTRS Qualifiers: Coronary Disease-Associated Artery/Lesion type: [place] artery (6) CHF (congestive heart failure) Code(s): I50.9 - HEART FAILURE, UNSPECIFIED (7) CRF (chronic renal failure) Code(s): N18.9 - CHRONIC KIDNEY DISEASE, UNSPECIFIED Qualifiers: Chronic kidney disease stage: stage 4 (severe) Qualified Code(s): N18.4 - Chronic kidney disease, stage 4 (severe) (8) Diabetes mellitus Code(s): E11.9 - TYPE 2 DIABETES MELLITUS WITHOUT COMPLICATIONS Qualifiers: Diabetes mellitus type: type 2 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: 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 care home insulin use status Diabetes mellitus complication status : with other specified complication Qualified Code(s): E11.69 - Type 2 diabetes mellitus with other specified complication (9) Hypertension Code(s): I10 - ESSENTIAL (PRIMARY) HYPERTENSION Qualifiers: Hypertension type: unspecified Qualified Code(s): I10 - Essential (primary ) hypertension (10) CHF exacerbation Code(s): I50.9 - HEART FAILURE, UNSPECIFIED (11) Dyspnea Code(s): R06.00 - DYSPNEA, UNSPECIFIED Qualifiers: Dyspnea type: other forms of dyspnea Qualified Code(s): R06.09 - Other forms of dyspnea Assessment/Plan IMP ACUTE ON CHRONIC HYPOXEMIC /HYPERCAPNEIC RESPIRATORY FAILURE ACUTE ON CHRONIC CHF ACUTE ON CKD HTN HLD DM ASHD SUSPECTED [place] PLAN LASIX O2 BIPAP NEEDED MONITOR LAVERN,RENAL FUNCTION F/U CHEST X-RAYS DAILY WTS F/U ABGS OUTPATIENT SLEEP STUDIES MONITOR LAVERN [place] Problem List - Problems (1) Acute on chronic respiratory failure with hypoxia and hypercapnia Code(s): J96.21 - ACUTE AND CHRONIC RESPIRATORY FAILURE WITH HYPOXIA; J96.22 - ACUTE AND CHRONIC RESPIRATORY FAILURE WITH HYPERCAPNIA (2) CHF exacerbation Code(s): I50.9 - HEART FAILURE, UNSPECIFIED Qualifiers: Heart failure type: unspecified Qualified Code(s): I50.9 - Heart failure, unspecified (3) Anemia Code(s): D64.9 - ANEMIA, UNSPECIFIED (4) Bilateral lower extremity edema Code(s): R60.0 - LOCALIZED EDEMA (5) CAD (coronary artery disease) Code(s): I25.10 - ATHSCL HEART DISEASE OF [place] CORONARY ARTERY W/O ANG PCTRS Qualifiers: Coronary Disease-Associated Artery/Lesion type: [place] artery (6) CHF (congestive heart failure) Code(s): I50.9 - HEART FAILURE, UNSPECIFIED (7) CRF (chronic renal failure) Code(s): N18.9 - CHRONIC KIDNEY DISEASE, UNSPECIFIED Qualifiers: Chronic kidney disease stage: stage 4 (severe) Qualified Code(s): N18.4 - Chronic kidney disease, stage 4 (severe) (8) Diabetes mellitus Code(s): E11.9 - TYPE 2 DIABETES MELLITUS WITHOUT COMPLICATIONS Qualifiers: Diabetes mellitus type: type 2 Diabetes mellitus care home 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: 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
[2019-03-13] MEDS: POLYETHYLENE GLYCOL 3350 119 GM BTL PO SCH ×2 (11:36→15:15)
--- NOTE | 2019-03-13 11:55 | PN ---
Progress Note, Physician History of Present Illness: Dyspnea, lower extremity swelling resolving, left foot hematoma. - Current Medication List Current Medications: Active Medications Albuterol Sulfate (Ventolin 0.083% Nebulizer Soln -) 1 amp NEB RQID PRN PRN Reason: SHORT OF BREATH/WHEEZING Allopurinol (Zyloprim -) 100 mg PO DAILY [facility] Last Admin: 03/13/19 10:20 Dose: 100 mg Artificial Tears (Artificial Tears) 1 drop OU BID [facility] Last Admin: 03/13/19 10:24 Dose: 1 drp Aspirin (Ecotrin -) 81 mg PO DAILY [facility] Last Admin: 03/13/19 10:20 Dose: 81 mg Atorvastatin Calcium (Lipitor -) 20 mg PO HS [facility] Last Admin: 03/12/19 23:14 Dose: 20 mg Bisacodyl (Dulcolax -) 5 mg PO HS PRN PRN Reason: CONSTIPATION Carvedilol (Coreg -) 12.5 mg PO BID [facility] Last Admin: 03/13/19 10:20 Dose: 12.5 mg Furosemide (Lasix -) 80 mg PO DAILY@0600 [facility] Last Admin: 03/13/19 05:38 Dose: 80 mg Gabapentin (Neurontin -) 300 mg PO [facility] Last Admin: 03/12/19 23:14 Dose: 300 mg Heparin Sodium (Porcine) (Heparin -) 5,000 unit SQ BID [facility] Last Admin: 03/13/19 10:20 Dose: 5,000 unit Insulin Aspart (Novolog Vial Sliding Scale -) 1 vial SQ [facility]; Protocol Last Admin: 03/13/19 06:17 Dose: 4 unit Insulin Detemir (Levemir Vial) 18 units SQ [facility] Last Admin: 03/12/19 23:24 Dose: 18 units Isosorbide Mononitrate (Imdur -) 90 mg PO DAILY [facility] Last Admin: 03/13/19 10:19 Dose: 90 mg Latanoprost (Xalatan 0.005% Eye Drops -) 1 drop OU HS [facility] Last Admin: 03/12/19 23:14 Dose: 1 drop Levothyroxine Sodium (Synthroid -) 50 mcg PO AM [facility] Last Admin: 03/13/19 06:17 Dose: 50 mcg Lidocaine (Lidoderm Patch -) 1 patch TP DAILY PRN PRN Reason: LOWER BACK PAIN Miscellaneous (Lidoderm Patch Removal) 1 each MC DAILY@2200 [facility] Polyethylene Glycol (Miralax (For Daily Use) -) 17 gm PO DAILY [facility] Last Admin: 03/13/19 11:36 Dose: Not Given Ranitidine HCl (Zantac -) 150 mg PO BID [facility] Last Admin: 03/13/19 10:20 Dose: 150 mg Tamsulosin HCl (Flomax -) 0.4 mg PO DAILY@0830 [facility] Last Admin: 03/13/19 10:20 Dose: 0.4 mg - Objective Vital Signs: Vital Signs Temperature 98 F 03/13/19 09:00 Pulse Rate 68 03/13/19 09:00 Respiratory Rate 18 03/13/19 09:00 Blood Pressure 130/54 L 03/13/19 09:00 O2 Sat by Pulse Oximetry (%) 98 03/12/19 21:00 Constitutional: Yes: No Distress, Calm Neck: Yes: Supple Cardiovascular: Yes: Regular Rate and Rhythm Respiratory: Yes: Regular, Diminished, On Nasal O2, SOB Gastrointestinal: Yes: Normal Bowel Sounds, Soft, Abdomen, Obese Extremities: Yes: Other (Left foot hematoma) Edema: No Labs: CBC, BMP 03/13/19 05:20 03/13/19 05:20 Problem List - Problems (1) Acute on chronic respiratory failure with hypercapnia Code(s): J96.22 - ACUTE AND CHRONIC RESPIRATORY FAILURE WITH HYPERCAPNIA (2) Bilateral lower extremity edema Code(s): R60.0 - LOCALIZED EDEMA (3) Fall Code(s): W19.XXXA - UNSPECIFIED FALL, INITIAL ENCOUNTER Qualifiers: Encounter type: initial encounter Qualified Code(s): W19.XXXA - Unspecified fall, initial encounter (4) Non-occlusive coronary artery disease Code(s): I25.10 - ATHSCL HEART DISEASE OF [place] CORONARY ARTERY W/O ANG PCTRS (5) Diabetes mellitus with diabetic cardiomyopathy Code(s): E11.59 - TYPE 2 DIABETES MELLITUS WITH OTH CIRCULATORY COMPLICATIONS; I43 - CARDIOMYOPATHY IN DISEASES CLASSIFIED ELSEWHERE (6) Endothelial dysfunction of coronary artery Code(s): I99.8 - OTHER DISORDER OF CIRCULATORY SYSTEM (7) Hyperlipidemia Code(s): E78.5 - HYPERLIPIDEMIA, UNSPECIFIED Qualifiers: Hyperlipidemia type: pure hypercholesterolemia Qualified Code(s): E78.00 - Pure hypercholesterolemia, unspecified; E78.0 - Pure hypercholesterolemia (8) Hypertension Code(s): I10 - ESSENTIAL (PRIMARY) HYPERTENSION Qualifiers: Hypertension type: unspecified Qualified Code(s): I10 - Essential (primary ) hypertension (9) Hypothyroidism Code(s): E03.9 - HYPOTHYROIDISM, UNSPECIFIED Qualifiers: Hypothyroidism type: unspecified Qualified Code(s): E03.9 - Hypothyroidism , unspecified (10) Acute on chronic diastolic congestive heart failure Code(s): I50.33 - ACUTE ON CHRONIC DIASTOLIC (CONGESTIVE) HEART FAILURE (11) [id number] kidney injury Code(s): N17.9 - ACUTE KIDNEY FAILURE, UNSPECIFIED; N18.9 - CHRONIC KIDNEY DISEASE, UNSPECIFIED Qualifiers: Chronic kidney disease stage: stage 4 (severe) Assessment/Plan 01/04/2016 normal LAD, 30% mild LCX and 60% mid RCA stenosis. Echocardiography (11/08/17) revealed normal LV systolic function, moderate LVH, trace to mild MR. 1. Acute on chronic hypoxemic/hypercapneic respiratory failure post fall resolved 2. Acute on chronic LV diastolic failure resolved 3. CAD - non-obstructive, angina pectoris 4. HTN 5. Hypercholesterolemia 6. Type 2 DM 7. Hypothyroidism 8. Acute on CKD stage 4, prerenal azotemia 9. H/o Hypovolemic hyponatremia and hypokalemia from diuretics and poor oral intake resolved 10. Spinal stenosis, cervical radiculopathy 11. Anemia 12. OSAS suspect 13. Left foot contusion PLAN: 1. Decrease Lasix 80 qd with monitor diuretic response, renal fxn and electrolytes, Bipap and O2 a needed. ice and elevate foot, post-op shoe 2. Continue ASA 81 qd, Carvedilol 12.5 mg BID, Lipitor 20 mg QHS, Imdur 90 mg QD and Hydralazine 50 mg TID as tolerated 3. Ideally addition of CHRISTINE inhibitor or angiotensin receptor rayo therapy is recommended once renal function stabilizes/at baseline with close monitoring of renal function and electrolytes 4. Emphasized importance diet and medication compliance 5. GI and DVT prophylaxis
[2019-03-13] MEDS ORDERED: INSULIN (NOVOLOG) ASPART 100 UNITS/ML 10ML VIAL ONE (12:36)
--- NOTE | 2019-03-13 13:12 | PN ---
Progress Note, Physician History of Present Illness: patient stable now with uti - Current Medication List Current Medications: Active Medications Albuterol Sulfate (Ventolin 0.083% Nebulizer Soln -) 1 amp NEB RQID PRN PRN Reason: SHORT OF BREATH/WHEEZING Allopurinol (Zyloprim -) 100 mg PO DAILY [facility] Last Admin: 03/13/19 10:20 Dose: 100 mg Artificial Tears (Artificial Tears) 1 drop OU BID [facility] Last Admin: 03/13/19 10:24 Dose: 1 drp Aspirin (Ecotrin -) 81 mg PO DAILY [facility] Last Admin: 03/13/19 10:20 Dose: 81 mg Atorvastatin Calcium (Lipitor -) 20 mg PO HS [facility] Last Admin: 03/12/19 23:14 Dose: 20 mg Bisacodyl (Dulcolax -) 5 mg PO HS PRN PRN Reason: CONSTIPATION Carvedilol (Coreg -) 12.5 mg PO BID [facility] Last Admin: 03/13/19 10:20 Dose: 12.5 mg Furosemide (Lasix -) 80 mg PO DAILY@0600 [facility] Last Admin: 03/13/19 05:38 Dose: 80 mg Gabapentin (Neurontin -) 300 mg PO HS [facility] Last Admin: 03/12/19 23:14 Dose: 300 mg Heparin Sodium (Porcine) (Heparin -) 5,000 unit SQ BID [facility] Last Admin: 03/13/19 10:20 Dose: 5,000 unit Insulin Aspart (Novolog Vial Sliding Scale -) 1 vial SQ [facility]; Protocol Last Admin: 03/13/19 11:53 Dose: 4 unit Insulin Detemir (Levemir Vial) 18 units SQ [facility] Last Admin: 03/12/19 23:24 Dose: 18 units Isosorbide Mononitrate (Imdur -) 90 mg PO DAILY [facility] Last Admin: 03/13/19 10:19 Dose: 90 mg Latanoprost (Xalatan 0.005% Eye Drops -) 1 drop OU HS [facility] Last Admin: 03/12/19 23:14 Dose: 1 drop Levothyroxine Sodium (Synthroid -) 50 mcg PO AM [facility] Last Admin: 03/13/19 06:17 Dose: 50 mcg Lidocaine (Lidoderm Patch -) 1 patch TP DAILY PRN PRN Reason: LOWER BACK PAIN Miscellaneous (Lidoderm Patch Removal) 1 each MC DAILY@2200 [facility] Polyethylene Glycol (Miralax (For Daily Use) -) 17 gm PO DAILY [facility] Last Admin: 03/13/19 11:36 Dose: Not Given Ranitidine HCl (Zantac -) 150 mg PO BID [facility] Last Admin: 03/13/19 10:20 Dose: 150 mg Tamsulosin HCl (Flomax -) 0.4 mg PO DAILY@0830 [facility] Last Admin: 03/13/19 10:20 Dose: 0.4 mg - Objective Vital Signs: Vital Signs Temperature 98 F 03/13/19 09:00 Pulse Rate 68 03/13/19 09:00 Respiratory Rate 18 03/13/19 09:00 Blood Pressure 130/54 L 03/13/19 09:00 O2 Sat by Pulse Oximetry (%) 98 03/12/19 21:00 Constitutional: Yes: No Distress, Calm Cardiovascular: Yes: S1, S2 Respiratory: Yes: Regular, CTA Bilaterally Gastrointestinal: Yes: Normal Bowel Sounds, Soft Musculoskeletal: Yes: WNL Extremities: Yes: Other Neurological: Yes: Alert, Oriented Psychiatric: Yes: Alert, Oriented Labs: CBC, BMP 03/13/19 05:20 03/13/19 05:20 Assessment/Plan Problem List - Problems (1) Acute on chronic respiratory failure with hypoxia and hypercapnia Code(s): J96.21 - ACUTE AND CHRONIC RESPIRATORY FAILURE WITH HYPOXIA; J96.22 - ACUTE AND CHRONIC RESPIRATORY FAILURE WITH HYPERCAPNIA (2) ANDRÉS (acute kidney injury) Code(s): N17.9 - ACUTE KIDNEY FAILURE, UNSPECIFIED (3) CRF (chronic renal failure) Code(s): N18.9 - CHRONIC KIDNEY DISEASE, UNSPECIFIED Qualifiers: Chronic kidney disease stage: stage 4 (severe) Qualified Code(s): N18.4 - Chronic kidney disease, stage 4 (severe) (4) Hyperkalemia Code(s): E87.5 - HYPERKALEMIA (5) Fall Code(s): W19.XXXA - UNSPECIFIED FALL, INITIAL ENCOUNTER Qualifiers: Encounter type: initial encounter Qualified Code(s): W19.XXXA - Unspecified fall, initial encounter (6) CAD (coronary artery disease) Code(s): I25.10 - ATHSCL HEART DISEASE OF [place] CORONARY ARTERY W/O ANG PCTRS Qualifiers: Coronary Disease-Associated Artery/Lesion type: [place] artery [place] vs. transplanted heart: [place] heart Associated angina: with unspecified angina Qualified Code(s): I25.119 - Atherosclerotic heart disease of [place] coronary artery with unspecified angina pectoris (7) Diabetes mellitus Code(s): E11.9 - TYPE 2 DIABETES MELLITUS WITHOUT COMPLICATIONS Qualifiers: Diabetes mellitus type: type 2 Diabetes mellitus [place] insulin use: unspecified [place] insulin use status Diabetes mellitus complication status : with other specified complication Qualified Code(s): E11.69 - Type 2 diabetes mellitus with other specified complication (8) Foot trauma Code(s): S99.929A - UNSPECIFIED INJURY OF UNSPECIFIED FOOT, INITIAL ENCOUNTER plan continue ceftriaxone await for identification of the organism rest as per the team
[2019-03-13] MEDS ORDERED: DEXTROSE 5%-WATER - 50 ML IVPB ONE (13:49)
[2019-03-13] MEDS ORDERED: cefTRIAXone SODIUM 1 GM VIAL ONE (13:49)
--- NOTE | 2019-03-13 13:49 | CON.GU ---
Consult Consult Specialty:: Urology Referred by:: Dr Sunshine Reason for Consultation:: Urinary Retention - History of Present Illness Chief Complaint: unable to void History of Present Illness: 83 yo female in AUR in ICU admitted for respiratory failure. Now improving [place] to [place] urine clear - Past Medical History Cardio/Vascular: Yes: CAD (non-obstructive), CHF, HTN, Hyperlipdemia, Other ( Angina pectoris) Gastrointestinal: Yes: Constipation, Diverticulosis, GERD, Other (colon polyps: sessil serrated adenomas x 2 2014) Renal/: Yes: Renal Inusuff Musculoskeletal: Yes: Other (Spinal stenosis) Endocrine: Yes: Diabetes Mellitus (Insulin dependent), Hypothyroidism - Past Surgical History Past Surgical History: Yes: Hysterectomy ([place], BSO in 1981), Oopherectomy - Alcohol/Substance Use Hx Alcohol Use: No History of Substance Use: reports: None - Smoking History Smoking history: Never smoked Have you smoked in the past 12 months: No Aproximately how many cigarettes per day: 0 - Social History Usual Living Arrangement: With Spouse ADL: Independent History of Recent Travel: Yes (WENT TO [facility] TWO YEARS AGO) Home Medications - Allergies Allergies/Adverse Reactions: Allergies Allergy/AdvReac Type Severity Reaction Status Date / Time No Known Allergies Allergy Verified 03/07/19 12:29 - Home Medications Home Medications: Ambulatory Orders Aspirin Coated [Ecotrin -] 81 mg PO DAILY #30 tablet.ec 07/09/16 Levothyroxine [Synthroid -] 50 mcg PO DAILY #90 tablet 07/09/16 Allopurinol [Zyloprim -] 100 mg PO DAILY 10/02/17 Atorvastatin Ca [Lipitor] 20 mg PO HS 10/02/17 Gabapentin [Neurontin -] 300 mg PO HS 10/02/17 Acetaminophen [Tylenol .Extra-Strength -] 500 mg PO Q6H PRN tablet 11/12/17 Tamsulosin HCl [Flomax -] 0.4 mg PO DAILY@0830 #90 cap.er.24h 11/12/17 Bisacodyl [Bisacodyl -] 5 mg PO ASDIR 11/26/18 Carvedilol [Coreg -] 12.5 mg PO BID 11/26/18 Cinacalcet HCl [Sensipar] 30 mg PO DAILY 11/26/18 Hydralazine HCl 50 mg PO TID 11/26/18 Isosorbide Mononitrate [Imdur -] 90 mg PO DAILY 11/26/18 Latanoprost/Pf [Latanoprost 0.005% Eye Drop] 1 drp OP DAILY 11/26/18 Polyethylene Glycol 3350 [Miralax 119 gm Btl -] 17 gm PO DAILY 11/26/18 Potassium Chloride 20 meq PO BID 11/26/18 Ranitidine HCl [Zantac] 150 mg PO BID 11/26/18 Insulin (Levemir) [Levemir Vial] 18 units SQ HS units 12/08/18 Furosemide 100 mg PO BID 02/05/19 Colchicine [Colcrys] 0.6 mg PO BID cap 02/09/19 Physical Exam- Vital Signs: Vital Signs Temperature 98 F 03/13/19 09:00 Pulse Rate 68 03/13/19 09:00 Respiratory Rate 18 03/13/19 09:00 Blood Pressure 130/54 L 03/13/19 09:00 O2 Sat by Pulse Oximetry (%) 98 03/12/19 21:00 Labs: CBC, BMP 03/13/19 05:20 03/13/19 05:20 Imaging - Results Ultrasound: Report Reviewed Problem List - Problems (1) Urinary retention Assessment/Plan: 83 yo female w AUR and UTI UTI treated JESSENIA nl no hydro stone or mass Start flomax if not medically contraindicated and give voiding trial Will follow pvr afterwards Cr 1.7 likely medical-renal Code(s): R33.9 - RETENTION OF URINE, UNSPECIFIED (2) Urinary retention Code(s): R33.9 - RETENTION OF URINE, UNSPECIFIED
--- NOTE | 2019-03-13 14:27 | PN ---
Progress Note (short form) - Note Progress Note: Renal follow up for CKD Seen and examined at the bedside awake and alert complains of pain in her left foot denies any sob, chest pain, fever, chills failed trial of void, johnston was reinserted no chest pain Vital Signs Temperature 98.2 F 03/13/19 14:05 Pulse Rate 62 03/13/19 14:05 Respiratory Rate 18 03/13/19 14:05 Blood Pressure 140/60 03/13/19 14:05 O2 Sat by Pulse Oximetry (%) 98 03/12/19 21:00 Intake & Output 03/10/19 03/11/19 03/12/19 03/13/19 23:59 23:59 23:59 23:59 Intake Total 299 351 5116 10 Output Total 1150 2300 1400 Balance 710 350 -1050 -1390 Weight 74.162 kg 73.527 kg 70.76 kg on BIPAP no acute distress trace edema in LE CBC, BMP 03/13/19 05:20 03/13/19 05:20 Current Medications Albuterol Sulfate (Ventolin 0.083% Nebulizer Soln -) 1 amp NEB RQID PRN PRN Reason: SHORT OF BREATH/WHEEZING Allopurinol (Zyloprim -) 100 mg PO DAILY [facility] Last Admin: 03/13/19 10:20 Dose: 100 mg Artificial Tears (Artificial Tears) 1 drop OU BID [facility] Last Admin: 03/13/19 10:24 Dose: 1 drp Aspirin (Ecotrin -) 81 mg PO DAILY [facility] Last Admin: 03/13/19 10:20 Dose: 81 mg Atorvastatin Calcium (Lipitor -) 20 mg PO HS [facility] Last Admin: 03/12/19 23:14 Dose: 20 mg Bisacodyl (Dulcolax -) 5 mg PO HS PRN PRN Reason: CONSTIPATION Carvedilol (Coreg -) 12.5 mg PO BID [facility] Last Admin: 03/13/19 10:20 Dose: 12.5 mg Furosemide (Lasix -) 80 mg PO DAILY@0600 [facility] Last Admin: 03/13/19 05:38 Dose: 80 mg Gabapentin (Neurontin -) 300 mg PO HS [facility] Last Admin: 03/12/19 23:14 Dose: 300 mg Heparin Sodium (Porcine) (Heparin -) 5,000 unit SQ BID [facility] Last Admin: 03/13/19 10:20 Dose: 5,000 unit Ceftriaxone Sodium 1 gm/ (Dextrose) 50 mls @ 100 mls/hr IVPB DAILY [facility]; Protocol Insulin Aspart (Novolog Vial Sliding Scale -) 1 vial SQ ACHS [facility]; Protocol Last Admin: 03/13/19 11:53 Dose: 4 unit Insulin Detemir (Levemir Vial) 18 units SQ HS [facility] Last Admin: 03/12/19 23:24 Dose: 18 units Isosorbide Mononitrate (Imdur -) 90 mg PO DAILY [facility] Last Admin: 03/13/19 10:19 Dose: 90 mg Latanoprost (Xalatan 0.005% Eye Drops -) 1 drop OU HS [facility] Last Admin: 03/12/19 23:14 Dose: 1 drop Levothyroxine Sodium (Synthroid -) 50 mcg PO AM [facility] Last Admin: 03/13/19 06:17 Dose: 50 mcg Lidocaine (Lidoderm Patch -) 1 patch TP DAILY PRN PRN Reason: LOWER BACK PAIN Miscellaneous (Lidoderm Patch Removal) 1 each MC DAILY@2200 [facility] Polyethylene Glycol (Miralax (For Daily Use) -) 17 gm PO DAILY [facility] Last Admin: 03/13/19 11:36 Dose: Not Given Ranitidine HCl (Zantac -) 150 mg PO BID [facility] Last Admin: 03/13/19 10:20 Dose: 150 mg Tamsulosin HCl (Flomax -) 0.4 mg PO DAILY@0830 [facility] Last Admin: 03/13/19 10:20 Dose: 0.4 mg 83 year old [place] woman with history of CKD stage 4 (baseline Cr ~2), DM Type 2, CHF with diastolic dysfunction, hypertension who presented from home with a fall and diarrhea. 1. CKD stage 4 2. Fall 3. Diarrhea r/o infectious etiology 4. CHF with diastolic dysfunction 5. Anemia 6. Hypertension Cr improved, BUN slowly improving. no melena reported by nurse but Hgb with slow downtrend, check stool occult blood Continue Lasix at present dose maintain jonhston as per recs Trend renal function and electrolytes closely. Dose all meds for CrCl < 15 Fall precautions BIPAP as needed Trend H/H Continue Coreg Wm Tian DO
[2019-03-13] MEDS: CEFTRIAXONE 1 GM in DEXTROSE 5%-WATER - 50 ML IVPB SCH (15:04)
[2019-03-13] MEDS: ATORVASTATIN CA 20 MG TABLET (FP) PO SCH (22:27)
[2019-03-13] MEDS: ACETAMINOPHEN 325 MG TABLET (FP) PO PRN (22:27)
[2019-03-13] MEDS: GABAPENTIN 300 MG CAPSULE (FP) PO SCH (22:27)
[2019-03-13] MEDS: INSULIN (LEVEMIR) 100 UNITS/ML UNITS SQ SCH (22:28)
[2019-03-13] MEDS: LATANOPROST 0.005% OPHTH SOLN 2.5ML BOTTLE OU SCH (22:28)
[2019-03-13] MEDS: LIDOCAINE PATCH REMOVAL MC SCH ×2 (22:32→22:46)
--- NOTE | 2019-03-13 22:57 | PN ---
Progress Note, Physician History of Present Illness: Pt off ICU, off BIPAP during daytime; tolerating O2 supplementation via NC. Pt w/o CP, palpitation, abd pain, diarrhea, nausea, vomiting. - Current Medication List Current Medications: Active Medications Acetaminophen (Tylenol -) 650 mg PO Q4H PRN PRN Reason: PAIN LEVEL 1-5 Last Admin: 03/13/19 22:27 Dose: 650 mg Albuterol Sulfate (Ventolin 0.083% Nebulizer Soln -) 1 amp NEB RQID PRN PRN Reason: SHORT OF BREATH/WHEEZING Allopurinol (Zyloprim -) 100 mg PO DAILY [facility] Last Admin: 03/13/19 10:20 Dose: 100 mg Artificial Tears (Artificial Tears) 1 drop OU BID [facility] Last Admin: 03/13/19 22:32 Dose: 1 drp Aspirin (Ecotrin -) 81 mg PO DAILY [facility] Last Admin: 03/13/19 10:20 Dose: 81 mg Atorvastatin Calcium (Lipitor -) 20 mg PO HS [facility] Last Admin: 03/13/19 22:27 Dose: 20 mg Bisacodyl (Dulcolax -) 5 mg PO HS PRN PRN Reason: CONSTIPATION Carvedilol (Coreg -) 12.5 mg PO BID [facility] Last Admin: 03/13/19 22:27 Dose: 12.5 mg Furosemide (Lasix -) 80 mg PO DAILY@0600 [facility] Last Admin: 03/13/19 05:38 Dose: 80 mg Gabapentin (Neurontin -) 300 mg PO HS [facility] Last Admin: 03/13/19 22:27 Dose: 300 mg Heparin Sodium (Porcine) (Heparin -) 5,000 unit SQ BID [facility] Last Admin: 03/13/19 22:27 Dose: 5,000 unit Ceftriaxone Sodium 1 gm/ (Dextrose) 50 mls @ 100 mls/hr IVPB DAILY [facility]; Protocol Last Admin: 03/13/19 15:04 Dose: 100 mls/hr Insulin Aspart (Novolog Vial Sliding Scale -) 1 vial SQ ACHS [facility]; Protocol Last Admin: 03/13/19 22:30 Dose: 4 unit Insulin Detemir (Levemir Vial) 18 units SQ HS [facility] Last Admin: 03/13/19 22:28 Dose: 18 units Isosorbide Mononitrate (Imdur -) 90 mg PO DAILY [facility] Last Admin: 03/13/19 10:19 Dose: 90 mg Latanoprost (Xalatan 0.005% Eye Drops -) 1 drop OU HS [facility] Last Admin: 03/13/19 22:28 Dose: 1 drop Levothyroxine Sodium (Synthroid -) 50 mcg PO AM [facility] Last Admin: 03/13/19 06:17 Dose: 50 mcg Lidocaine (Lidoderm Patch -) 1 patch TP DAILY PRN PRN Reason: LOWER BACK PAIN Miscellaneous (Lidoderm Patch Removal) 1 each MC DAILY@2200 [facility] Last Admin: 03/13/19 22:46 Dose: Not Given Polyethylene Glycol (Miralax (For Daily Use) -) 17 gm PO DAILY [facility] Last Admin: 03/13/19 15:15 Dose: 17 gm Ranitidine HCl (Zantac -) 150 mg PO BID [facility] Last Admin: 03/13/19 22:27 Dose: 150 mg Tamsulosin HCl (Flomax -) 0.4 mg PO DAILY@0830 [facility] Last Admin: 03/13/19 10:20 Dose: 0.4 mg - Objective Vital Signs: Vital Signs Temperature 98.3 F 03/13/19 20:40 Pulse Rate 66 03/13/19 20:40 Respiratory Rate 18 03/13/19 21:00 Blood Pressure 136/49 L 03/13/19 20:40 O2 Sat by Pulse Oximetry (%) 98 03/13/19 21:00 Constitutional: Yes: No Distress, Calm Cardiovascular: Yes: Regular Rate and Rhythm, S1, S2 Respiratory: Yes: Regular, CTA Bilaterally Gastrointestinal: Yes: Normal Bowel Sounds, Soft, Abdomen, Obese, Tenderness Edema: No Neurological: Yes: Alert, Oriented Labs: CBC, BMP 03/13/19 05:20 03/13/19 05:20 UCX + Problem List - Problems (1) Acute on chronic respiratory failure with hypoxia and hypercapnia Code(s): J96.21 - ACUTE AND CHRONIC RESPIRATORY FAILURE WITH HYPOXIA; J96.22 - ACUTE AND CHRONIC RESPIRATORY FAILURE WITH HYPERCAPNIA (2) ANDRÉS (acute kidney injury) Code(s): N17.9 - ACUTE KIDNEY FAILURE, UNSPECIFIED (3) CRF (chronic renal failure) Code(s): N18.9 - CHRONIC KIDNEY DISEASE, UNSPECIFIED Qualifiers: Chronic kidney disease stage: stage 4 (severe) Qualified Code(s): N18.4 - Chronic kidney disease, stage 4 (severe) (4) Hyperkalemia Code(s): E87.5 - HYPERKALEMIA (5) Fall Code(s): W19.XXXA - UNSPECIFIED FALL, INITIAL ENCOUNTER Qualifiers: Encounter type: initial encounter Qualified Code(s): W19.XXXA - Unspecified fall, initial encounter (6) CAD (coronary artery disease) Code(s): I25.10 - ATHSCL HEART DISEASE OF [place] CORONARY ARTERY W/O ANG PCTRS Qualifiers: Coronary Disease-Associated Artery/Lesion type: [place] artery [place] vs. transplanted heart: [place] heart Associated angina: with unspecified angina Qualified Code(s): I25.119 - Atherosclerotic heart disease of [place] coronary artery with unspecified angina pectoris (7) Diabetes mellitus Code(s): E11.9 - TYPE 2 DIABETES MELLITUS WITHOUT COMPLICATIONS Qualifiers: Diabetes mellitus type: type 2 Diabetes mellitus alf insulin use: unspecified alf insulin use status Diabetes mellitus complication status : with other specified complication Qualified Code(s): E11.69 - Type 2 diabetes mellitus with other specified complication (8) Foot trauma Code(s): S99.929A - UNSPECIFIED INJURY OF UNSPECIFIED FOOT, INITIAL ENCOUNTER (9) Elevated liver enzymes Code(s): R74.8 - ABNORMAL LEVELS OF OTHER SERUM ENZYMES (10) UTI (urinary tract infection) Code(s): N39.0 - URINARY TRACT INFECTION, SITE NOT SPECIFIED Qualifiers: Urinary tract infection type: site unspecified Hematuria presence: without hematuria Qualified Code(s): N39.0 - Urinary tract infection, site not specified Assessment/Plan Admitted to ICU, transferred to 4W On BIPAP at night and PRN. Now on Cefrtriaxone for UTI. Lasix was changed to PO daily. Improvement in Creatinine and weight. CCM/ Pulm, Cardio, Neuro, Renal, ID, [place] consults are appreciated. DVT proph AM labs OOBTC with assistance Pt's care was d/w pt's nurse.
[2019-03-14] MEDS: LEVOTHYROXINE NA 50 MCG TABLET (FP) PO SCH (06:49)
[2019-03-14] MEDS: FUROSEMIDE 40 MG TABLET (FP) PO SCH (06:49)
[2019-03-14] MEDS: INSULIN SLIDING SCALE (NOVOLOG) 1 VIAL SQ SCH ×4 (06:49→22:25)
[2019-03-14 06:56] LABS: BILIRUBIN,TOTAL 0.7 mg/dL (0.2-1); BLOOD UREA NITROGEN 89.3 mg/dL (7-18); CALCIUM 10.5 mg/dL (8.5-10.1); CREATININE 1.7 mg/dL (0.55-1.3); POTASSIUM 4.2 mmol/L (3.5-5.1)
--- NOTE | 2019-03-14 08:30 | PN ---
Progress Note, Physician Chief Complaint: OOB to chair feels tired; has some L foot pain and swelling but better less diarrhea, less SOB - Current Medication List Current Medications: Active Medications Acetaminophen (Tylenol -) 650 mg PO Q4H PRN PRN Reason: PAIN LEVEL 1-5 Last Admin: 03/13/19 22:27 Dose: 650 mg Albuterol Sulfate (Ventolin 0.083% Nebulizer Soln -) 1 amp NEB RQID PRN PRN Reason: SHORT OF BREATH/WHEEZING Allopurinol (Zyloprim -) 100 mg PO DAILY [facility] Last Admin: 03/13/19 10:20 Dose: 100 mg Artificial Tears (Artificial Tears) 1 drop OU BID [facility] Last Admin: 03/13/19 22:32 Dose: 1 drp Aspirin (Ecotrin -) 81 mg PO DAILY [facility] Last Admin: 03/13/19 10:20 Dose: 81 mg Atorvastatin Calcium (Lipitor -) 20 mg PO HS [facility] Last Admin: 03/13/19 22:27 Dose: 20 mg Bisacodyl (Dulcolax -) 5 mg PO HS PRN PRN Reason: CONSTIPATION Carvedilol (Coreg -) 12.5 mg PO BID [facility] Last Admin: 03/13/19 22:27 Dose: 12.5 mg Furosemide (Lasix -) 80 mg PO DAILY@0600 [facility] Last Admin: 03/14/19 06:49 Dose: 80 mg Gabapentin (Neurontin -) 300 mg PO HS [facility] Last Admin: 03/13/19 22:27 Dose: 300 mg Heparin Sodium (Porcine) (Heparin -) 5,000 unit SQ BID [facility] Last Admin: 03/13/19 22:27 Dose: 5,000 unit Ceftriaxone Sodium 1 gm/ (Dextrose) 50 mls @ 100 mls/hr IVPB DAILY [facility]; Protocol Last Admin: 03/13/19 15:04 Dose: 100 mls/hr Insulin Aspart (Novolog Vial Sliding Scale -) 1 vial SQ [facility]; Protocol Last Admin: 03/14/19 06:49 Dose: Not Given Insulin Detemir (Levemir Vial) 18 units SQ HS [facility] Last Admin: 03/13/19 22:28 Dose: 18 units Isosorbide Mononitrate (Imdur -) 90 mg PO DAILY [facility] Last Admin: 03/13/19 10:19 Dose: 90 mg Latanoprost (Xalatan 0.005% Eye Drops -) 1 drop OU HS [facility] Last Admin: 03/13/19 22:28 Dose: 1 drop Levothyroxine Sodium (Synthroid -) 50 mcg PO AM [facility] Last Admin: 03/14/19 06:49 Dose: 50 mcg Lidocaine (Lidoderm Patch -) 1 patch TP DAILY PRN PRN Reason: LOWER BACK PAIN Miscellaneous (Lidoderm Patch Removal) 1 each MC DAILY@2200 [facility] Last Admin: 03/13/19 22:46 Dose: Not Given Polyethylene Glycol (Miralax (For Daily Use) -) 17 gm PO DAILY [facility] Last Admin: 03/13/19 15:15 Dose: 17 gm Ranitidine HCl (Zantac -) 150 mg PO BID [facility] Last Admin: 03/13/19 22:27 Dose: 150 mg Tamsulosin HCl (Flomax -) 0.4 mg PO DAILY@0830 [facility] Last Admin: 03/13/19 10:20 Dose: 0.4 mg - Objective Vital Signs: Vital Signs Temperature 97.4 F L 03/14/19 06:00 Pulse Rate 66 03/14/19 06:00 Respiratory Rate 20 03/14/19 06:00 Blood Pressure 143/59 L 03/14/19 06:00 O2 Sat by Pulse Oximetry (%) 98 03/13/19 21:00 Constitutional: Yes: No Distress, Calm Eyes: Yes: Conjunctiva Clear HENT: Yes: Atraumatic Neck: Yes: Supple Cardiovascular: Yes: Regular Rate and Rhythm Respiratory: Yes: CTA Bilaterally Gastrointestinal: Yes: Soft. No: Tenderness Genitourinary: No: Hematuria Musculoskeletal: No: Joint Stiffness, Joint Swelling Extremities: No: Cold, Cool Edema: No Integumentary: No: Rash Neurological: Yes: WNL, Alert, Oriented ...Motor Strength: WNL Psychiatric: Yes: WNL, Alert, Oriented. No: Agitated, Suicidal Ideation Labs: CBC, BMP 03/13/19 05:20 03/14/19 05:25 - ....Imaging Other: Report Reviewed Assessment/Plan Pt presents to the ED complaining of a two day history of worsening abdominal distention, shortness of breath and diarrhea. History of CHF, chronically on home o2, increasingly lethargic, decreased po intake. s/p fall x 2 at home SOB CHF / COPD exac; pulm and cardio f/u; prn BIPAP / telemetry monitoring ARF/CRF; uncontrolled DM, rabdomyolisis, prerenal azotemia, s/p lasix lower dose f/u labs urinary retention had [place] in 24h, seen by BRITTANY, on flomax; [place] out now, watch UO closely L foot pain hematoma ortho f/u falls decubs DVT pfx prognosis guarded d/w pt turn in bed q1h to prevent decubs; do not get OOB alone to prevent falls d.w staff
--- NOTE | 2019-03-14 09:19 | PN ---
Progress Note (short form) - Note Progress Note: Ortho Pt seen and examined c/o left foot pain and swelling Selected Entries 03/14/19 06:00 Temperature 97.4 F L Pulse Rate 66 Respiratory 20 Rate Blood Pressure 143/59 L + swelling, + ttp, decr rom nvi a/p Post-op shoe PT eval wbat d/w Dr. Sun
[2019-03-14] MEDS ORDERED: cefTRIAXone SODIUM 1 GM VIAL ONE (09:23)
[2019-03-14] MEDS ORDERED: DEXTROSE 5%-WATER - 50 ML IVPB ONE (09:23)
[2019-03-14] MEDS: RANITIDINE HCL 150 MG TABLET (FP) PO SCH ×2 (09:38→22:26)
[2019-03-14] MEDS: TAMSULOSIN HCL 0.4 MG CAP PO SCH (09:38)
[2019-03-14] MEDS: POLYETHYLENE GLYCOL 3350 119 GM BTL PO SCH (09:39)
[2019-03-14] MEDS: CEFTRIAXONE 1 GM in DEXTROSE 5%-WATER - 50 ML IVPB SCH (09:39)
[2019-03-14] MEDS: ISOSORBIDE MONONITRATE 30 MG TAB.SR.24H (FP) PO SCH (09:39)
[2019-03-14] MEDS: CARVEDILOL 12.5 MG TABLET (FP) PO SCH ×2 (09:39→22:24)
[2019-03-14] MEDS: ALLOPURINOL 100 MG TABLET (FP) PO SCH (09:39)
[2019-03-14] MEDS: HEPARIN NA (PORCINE) 5,000 UNITS/ML 1ML VIAL SQ SCH ×2 (09:39→22:24)
[2019-03-14] MEDS: ASPIRIN COATED 81 MG TABLET.EC PO SCH (09:39)
[2019-03-14] MEDS: ARTIFICIAL TEARS (POLYVINYL ALCOHOL) OPTH DROPS OU SCH ×2 (09:40→22:24)
--- NOTE | 2019-03-14 12:09 | PN ---
Progress Note, Physician History of Present Illness: Dyspnea, lower extremity swelling resolving, left foot hematoma tenderness improved. - Current Medication List Current Medications: Active Medications Acetaminophen (Tylenol -) 650 mg PO Q4H PRN PRN Reason: PAIN LEVEL 1-5 Last Admin: 03/13/19 22:27 Dose: 650 mg Albuterol Sulfate (Ventolin 0.083% Nebulizer Soln -) 1 amp NEB RQID PRN PRN Reason: SHORT OF BREATH/WHEEZING Allopurinol (Zyloprim -) 100 mg PO DAILY [facility] Last Admin: 03/14/19 09:39 Dose: 100 mg Artificial Tears (Artificial Tears) 1 drop OU BID [facility] Last Admin: 03/14/19 09:40 Dose: 1 drp Aspirin (Ecotrin -) 81 mg PO DAILY [facility] Last Admin: 03/14/19 09:39 Dose: 81 mg Atorvastatin Calcium (Lipitor -) 20 mg PO HS [facility] Last Admin: 03/13/19 22:27 Dose: 20 mg Bisacodyl (Dulcolax -) 5 mg PO HS PRN PRN Reason: CONSTIPATION Carvedilol (Coreg -) 12.5 mg PO BID [facility] Last Admin: 03/14/19 09:39 Dose: 12.5 mg Furosemide (Lasix -) 80 mg PO DAILY@0600 [facility] Last Admin: 03/14/19 06:49 Dose: 80 mg Gabapentin (Neurontin -) 300 mg PO HS [facility] Last Admin: 03/13/19 22:27 Dose: 300 mg Heparin Sodium (Porcine) (Heparin -) 5,000 unit SQ BID [facility] Last Admin: 03/14/19 09:39 Dose: 5,000 unit Ceftriaxone Sodium 1 gm/ (Dextrose) 50 mls @ 100 mls/hr IVPB DAILY [facility]; Protocol Last Admin: 03/14/19 09:39 Dose: 100 mls/hr Insulin Aspart (Novolog Vial Sliding Scale -) 1 vial SQ ACHS [facility]; Protocol Last Admin: 03/14/19 06:49 Dose: Not Given Insulin Detemir (Levemir Vial) 18 units SQ HS [facility] Last Admin: 03/13/19 22:28 Dose: 18 units Isosorbide Mononitrate (Imdur -) 90 mg PO DAILY [facility] Last Admin: 03/14/19 09:39 Dose: 90 mg Latanoprost (Xalatan 0.005% Eye Drops -) 1 drop OU HS [facility] Last Admin: 03/13/19 22:28 Dose: 1 drop Levothyroxine Sodium (Synthroid -) 50 mcg PO AM [facility] Last Admin: 03/14/19 06:49 Dose: 50 mcg Lidocaine (Lidoderm Patch -) 1 patch TP DAILY PRN PRN Reason: LOWER BACK PAIN Miscellaneous (Lidoderm Patch Removal) 1 each MC DAILY@2200 [facility] Last Admin: 03/13/19 22:46 Dose: Not Given Polyethylene Glycol (Miralax (For Daily Use) -) 17 gm PO DAILY [facility] Last Admin: 03/14/19 09:39 Dose: 17 gm Ranitidine HCl (Zantac -) 150 mg PO BID [facility] Last Admin: 03/14/19 09:38 Dose: 150 mg Tamsulosin HCl (Flomax -) 0.4 mg PO DAILY@0830 [facility] Last Admin: 03/14/19 09:38 Dose: 0.4 mg - Objective Vital Signs: Vital Signs Temperature 98 F 03/14/19 09:00 Pulse Rate 68 03/14/19 09:00 Respiratory Rate 18 03/14/19 09:00 Blood Pressure 144/55 L 03/14/19 09:00 O2 Sat by Pulse Oximetry (%) 98 03/13/19 21:00 Constitutional: Yes: No Distress, Calm Neck: Yes: Supple Cardiovascular: Yes: Regular Rate and Rhythm Respiratory: Yes: Regular, Diminished, On Nasal O2 Gastrointestinal: Yes: Normal Bowel Sounds, Soft, Abdomen, Obese Edema: No Labs: CBC, BMP 03/13/19 05:20 03/14/19 05:25 - ....Imaging EKG: Report Reviewed (Tele: NSR) Problem List - Problems (1) Acute on chronic respiratory failure with hypercapnia Code(s): J96.22 - ACUTE AND CHRONIC RESPIRATORY FAILURE WITH HYPERCAPNIA (2) Bilateral lower extremity edema Code(s): R60.0 - LOCALIZED EDEMA (3) Fall Code(s): W19.XXXA - UNSPECIFIED FALL, INITIAL ENCOUNTER Qualifiers: Encounter type: initial encounter Qualified Code(s): W19.XXXA - Unspecified fall, initial encounter (4) Non-occlusive coronary artery disease Code(s): I25.10 - ATHSCL HEART DISEASE OF [place] CORONARY ARTERY W/O ANG PCTRS (5) Diabetes mellitus with diabetic cardiomyopathy Code(s): E11.59 - TYPE 2 DIABETES MELLITUS WITH OTH CIRCULATORY COMPLICATIONS; I43 - CARDIOMYOPATHY IN DISEASES CLASSIFIED ELSEWHERE (6) Endothelial dysfunction of coronary artery Code(s): I99.8 - OTHER DISORDER OF CIRCULATORY SYSTEM (7) Hyperlipidemia Code(s): E78.5 - HYPERLIPIDEMIA, UNSPECIFIED Qualifiers: Hyperlipidemia type: pure hypercholesterolemia Qualified Code(s): E78.00 - Pure hypercholesterolemia, unspecified; E78.0 - Pure hypercholesterolemia (8) Hypertension Code(s): I10 - ESSENTIAL (PRIMARY) HYPERTENSION Qualifiers: Hypertension type: unspecified Qualified Code(s): I10 - Essential (primary ) hypertension (9) Hypothyroidism Code(s): E03.9 - HYPOTHYROIDISM, UNSPECIFIED Qualifiers: Hypothyroidism type: unspecified Qualified Code(s): E03.9 - Hypothyroidism , unspecified (10) Acute on chronic diastolic congestive heart failure Code(s): I50.33 - ACUTE ON CHRONIC DIASTOLIC (CONGESTIVE) HEART FAILURE (11) Doblr-px-sdyrgor kidney injury Code(s): N17.9 - ACUTE KIDNEY FAILURE, UNSPECIFIED; N18.9 - CHRONIC KIDNEY DISEASE, UNSPECIFIED Qualifiers: Chronic kidney disease stage: stage 4 (severe) Assessment/Plan 01/04/2016 normal LAD, 30% mild LCX and 60% mid RCA stenosis. Echocardiography (11/08/17) revealed normal LV systolic function, moderate LVH, trace to mild MR. 1. Acute on chronic hypoxemic/hypercapneic respiratory failure post fall resolved 2. Acute on chronic LV diastolic failure resolved 3. CAD - non-obstructive, angina pectoris 4. HTN 5. Hypercholesterolemia 6. Type 2 DM 7. Hypothyroidism 8. Acute on CKD stage 4, prerenal azotemia 9. H/o Hypovolemic hyponatremia and hypokalemia from diuretics and poor oral intake resolved 10. Spinal stenosis, cervical radiculopathy 11. Anemia 12. OSAS suspect 13. Left foot contusion PLAN: 1. Continue Lasix 80 qd with monitor diuretic response, renal fxn and electrolytes, Bipap and O2 a needed. ice and elevate foot, post-op shoe 2. Continue ASA 81 qd, Carvedilol 12.5 mg BID, Lipitor 20 mg QHS, Imdur 90 mg QD and Hydralazine 50 mg TID as tolerated 3. Ideally addition of CHRISTINE inhibitor or angiotensin receptor rayo therapy is recommended once renal function stabilizes/at baseline with close monitoring of renal function and electrolytes 4. Emphasized importance diet and medication compliance 5. GI and DVT prophylaxis, OOB to chair with PT as tolerated
[2019-03-14] MEDS: ACETAMINOPHEN 325 MG TABLET (FP) PO PRN ×2 (12:12→22:26)
--- NOTE | 2019-03-14 12:26 | PN ---
Progress Note (short form) - Note Progress Note: PULMONARY States breathing better. No chest pain. Vital Signs Period Temp Pulse Resp BP Sys/Hernandez Pulse Ox Last 24 Hr 97.4 F-98.3 F 62-70 18-20 136-144/49-66 98 Gen: NAD at rest Heart: RRR Lung: decreased breath sounds at the bases Abd: soft, nontender Ext: no edema CBC, BMP 03/13/19 05:20 03/14/19 05:25 Active Medications Acetaminophen (Tylenol -) 650 mg PO Q4H PRN PRN Reason: PAIN LEVEL 1-5 Last Admin: 03/14/19 12:12 Dose: 650 mg Albuterol Sulfate (Ventolin 0.083% Nebulizer Soln -) 1 amp NEB RQID PRN PRN Reason: SHORT OF BREATH/WHEEZING Allopurinol (Zyloprim -) 100 mg PO DAILY [facility] Last Admin: 03/14/19 09:39 Dose: 100 mg Artificial Tears (Artificial Tears) 1 drop OU BID [facility] Last Admin: 03/14/19 09:40 Dose: 1 drp Aspirin (Ecotrin -) 81 mg PO DAILY [facility] Last Admin: 03/14/19 09:39 Dose: 81 mg Atorvastatin Calcium (Lipitor -) 20 mg PO HS [facility] Last Admin: 03/13/19 22:27 Dose: 20 mg Bisacodyl (Dulcolax -) 5 mg PO HS PRN PRN Reason: CONSTIPATION Carvedilol (Coreg -) 12.5 mg PO BID [facility] Last Admin: 03/14/19 09:39 Dose: 12.5 mg Furosemide (Lasix -) 80 mg PO DAILY@0600 [facility] Last Admin: 03/14/19 06:49 Dose: 80 mg Gabapentin (Neurontin -) 300 mg PO HS [facility] Last Admin: 03/13/19 22:27 Dose: 300 mg Heparin Sodium (Porcine) (Heparin -) 5,000 unit SQ BID [facility] Last Admin: 03/14/19 09:39 Dose: 5,000 unit Ceftriaxone Sodium 1 gm/ (Dextrose) 50 mls @ 100 mls/hr IVPB DAILY [facility]; Protocol Last Admin: 03/14/19 09:39 Dose: 100 mls/hr Insulin Aspart (Novolog Vial Sliding Scale -) 1 vial SQ ACHS [facility]; Protocol Last Admin: 03/14/19 12:13 Dose: 6 unit Insulin Detemir (Levemir Vial) 18 units SQ HS [facility] Last Admin: 03/13/19 22:28 Dose: 18 units Isosorbide Mononitrate (Imdur -) 90 mg PO DAILY [facility] Last Admin: 03/14/19 09:39 Dose: 90 mg Latanoprost (Xalatan 0.005% Eye Drops -) 1 drop OU HS [facility] Last Admin: 03/13/19 22:28 Dose: 1 drop Levothyroxine Sodium (Synthroid -) 50 mcg PO AM [facility] Last Admin: 03/14/19 06:49 Dose: 50 mcg Lidocaine (Lidoderm Patch -) 1 patch TP DAILY PRN PRN Reason: LOWER BACK PAIN Miscellaneous (Lidoderm Patch Removal) 1 each MC DAILY@2200 [facility] Last Admin: 03/13/19 22:46 Dose: Not Given Polyethylene Glycol (Miralax (For Daily Use) -) 17 gm PO DAILY [facility] Last Admin: 03/14/19 09:39 Dose: 17 gm Ranitidine HCl (Zantac -) 150 mg PO BID [facility] Last Admin: 03/14/19 09:38 Dose: 150 mg Tamsulosin HCl (Flomax -) 0.4 mg PO DAILY@0830 [facility] Last Admin: 03/14/19 09:38 Dose: 0.4 mg A/P Acute on Chronic Hypoxic and Hypercapneic Respiratory Failure improving Acute on Chronic Diastolic Heart Failure Acute on Chronic Renal Failure CAD HTN DM Hypothyroidism Likely SHANEKA - continue lasix - monitor urine output, creatinine - inhaled bronchodilators - BiPAP at night and PRN during day - o2 to keep Spo2 >90% - outpt PFTs, NPSG - DVT prophylaxis
--- NOTE | 2019-03-14 15:37 | PN ---
Progress Note (short form) - Note Progress Note: Renal follow up for CKD Seen and examined at the bedside awake and alert sitting in chair complains of pain in her left foot no sob, chest pain, fever, chills Vital Signs Temperature 98 F 03/14/19 09:00 Pulse Rate 68 03/14/19 09:00 Respiratory Rate 18 03/14/19 09:00 Blood Pressure 144/55 L 03/14/19 09:00 O2 Sat by Pulse Oximetry (%) 98 03/14/19 09:00 Intake & Output 03/11/19 03/12/19 03/13/19 03/14/19 23:59 23:59 23:59 23:59 Intake Total 800 1250 10 10 Output Total 1150 2300 2200 1100 Balance -350 -1050 -2190 -1090 Weight 73.527 kg 70.76 kg 76.113 kg on BIPAP no acute distress trace edema in LE CBC, BMP 03/13/19 05:20 03/14/19 05:25 Current Medications Acetaminophen (Tylenol -) 650 mg PO Q4H PRN PRN Reason: PAIN LEVEL 1-5 Last Admin: 03/14/19 12:12 Dose: 650 mg Albuterol Sulfate (Ventolin 0.083% Nebulizer Soln -) 1 amp NEB RQID PRN PRN Reason: SHORT OF BREATH/WHEEZING Allopurinol (Zyloprim -) 100 mg PO DAILY [facility] Last Admin: 03/14/19 09:39 Dose: 100 mg Artificial Tears (Artificial Tears) 1 drop OU BID [facility] Last Admin: 03/14/19 09:40 Dose: 1 drp Aspirin (Ecotrin -) 81 mg PO DAILY [facility] Last Admin: 03/14/19 09:39 Dose: 81 mg Atorvastatin Calcium (Lipitor -) 20 mg PO HS [facility] Last Admin: 03/13/19 22:27 Dose: 20 mg Bisacodyl (Dulcolax -) 5 mg PO HS PRN PRN Reason: CONSTIPATION Carvedilol (Coreg -) 12.5 mg PO BID [facility] Last Admin: 03/14/19 09:39 Dose: 12.5 mg Furosemide (Lasix -) 80 mg PO DAILY@0600 [facility] Last Admin: 03/14/19 06:49 Dose: 80 mg Gabapentin (Neurontin -) 300 mg PO HS [facility] Last Admin: 03/13/19 22:27 Dose: 300 mg Heparin Sodium (Porcine) (Heparin -) 5,000 unit SQ BID [facility] Last Admin: 03/14/19 09:39 Dose: 5,000 unit Ceftriaxone Sodium 1 gm/ (Dextrose) 50 mls @ 100 mls/hr IVPB DAILY [facility]; Protocol Last Admin: 03/14/19 09:39 Dose: 100 mls/hr Insulin Aspart (Novolog Vial Sliding Scale -) 1 vial SQ ACHS [facility]; Protocol Last Admin: 03/14/19 12:13 Dose: 6 unit Insulin Detemir (Levemir Vial) 18 units SQ HS [facility] Last Admin: 03/13/19 22:28 Dose: 18 units Isosorbide Mononitrate (Imdur -) 90 mg PO DAILY [facility] Last Admin: 03/14/19 09:39 Dose: 90 mg Latanoprost (Xalatan 0.005% Eye Drops -) 1 drop OU HS [facility] Last Admin: 03/13/19 22:28 Dose: 1 drop Levothyroxine Sodium (Synthroid -) 50 mcg PO AM [facility] Last Admin: 03/14/19 06:49 Dose: 50 mcg Lidocaine (Lidoderm Patch -) 1 patch TP DAILY PRN PRN Reason: LOWER BACK PAIN Miscellaneous (Lidoderm Patch Removal) 1 each MC DAILY@2200 [facility] Last Admin: 03/13/19 22:46 Dose: Not Given Polyethylene Glycol (Miralax (For Daily Use) -) 17 gm PO DAILY [facility] Last Admin: 03/14/19 09:39 Dose: 17 gm Ranitidine HCl (Zantac -) 150 mg PO BID [facility] Last Admin: 03/14/19 09:38 Dose: 150 mg Tamsulosin HCl (Flomax -) 0.4 mg PO DAILY@0830 [facility] Last Admin: 03/14/19 09:38 Dose: 0.4 mg 83 year old [place] woman with history of CKD stage 4 (baseline Cr ~2), DM Type 2, CHF with diastolic dysfunction, hypertension who presented from home with a fall and diarrhea. 1. CKD stage 4 2. Fall 3. Diarrhea r/o infectious etiology 4. CHF with diastolic dysfunction 5. Anemia 6. Hypertension Renal function improving no overt uremic symptoms despite high BUN no melena reported by nurse but Hgb with slow downtrend, check stool occult blood Continue Lasix at present dose maintain johnston as per recs Trend renal function and electrolytes closely. Dose all meds for CrCl < 15 Fall precautions BIPAP as needed Trend H/H Continue Coreg Wm Tian DO
--- NOTE | 2019-03-14 18:59 | PN ---
Progress Note, Physician History of Present Illness: Pt seen and examined, labs/imaging results noted. Pt is afebrile, responsive, without distress on O2 NC. Has no specific complaints. - Current Medication List Current Medications: Active Medications Acetaminophen (Tylenol -) 650 mg PO Q4H PRN PRN Reason: PAIN LEVEL 1-5 Last Admin: 03/14/19 12:12 Dose: 650 mg Albuterol Sulfate (Ventolin 0.083% Nebulizer Soln -) 1 amp NEB RQID PRN PRN Reason: SHORT OF BREATH/WHEEZING Allopurinol (Zyloprim -) 100 mg PO DAILY [facility] Last Admin: 03/14/19 09:39 Dose: 100 mg Artificial Tears (Artificial Tears) 1 drop OU BID [facility] Last Admin: 03/14/19 09:40 Dose: 1 drp Aspirin (Ecotrin -) 81 mg PO DAILY [facility] Last Admin: 03/14/19 09:39 Dose: 81 mg Atorvastatin Calcium (Lipitor -) 20 mg PO HS [facility] Last Admin: 03/13/19 22:27 Dose: 20 mg Bisacodyl (Dulcolax -) 5 mg PO HS PRN PRN Reason: CONSTIPATION Carvedilol (Coreg -) 12.5 mg PO BID [facility] Last Admin: 03/14/19 09:39 Dose: 12.5 mg Furosemide (Lasix -) 80 mg PO DAILY@0600 [facility] Last Admin: 03/14/19 06:49 Dose: 80 mg Gabapentin (Neurontin -) 300 mg PO HS [facility] Last Admin: 03/13/19 22:27 Dose: 300 mg Heparin Sodium (Porcine) (Heparin -) 5,000 unit SQ BID [facility] Last Admin: 03/14/19 09:39 Dose: 5,000 unit Ceftriaxone Sodium 1 gm/ (Dextrose) 50 mls @ 100 mls/hr IVPB DAILY [facility]; Protocol Last Admin: 03/14/19 09:39 Dose: 100 mls/hr Insulin Aspart (Novolog Vial Sliding Scale -) 1 vial SQ ACHS [facility]; Protocol Last Admin: 03/14/19 17:11 Dose: 6 unit Insulin Detemir (Levemir Vial) 18 units SQ HS [facility] Last Admin: 03/13/19 22:28 Dose: 18 units Isosorbide Mononitrate (Imdur -) 90 mg PO DAILY [facility] Last Admin: 03/14/19 09:39 Dose: 90 mg Latanoprost (Xalatan 0.005% Eye Drops -) 1 drop OU HS [facility] Last Admin: 03/13/19 22:28 Dose: 1 drop Levothyroxine Sodium (Synthroid -) 50 mcg PO AM [facility] Last Admin: 03/14/19 06:49 Dose: 50 mcg Lidocaine (Lidoderm Patch -) 1 patch TP DAILY PRN PRN Reason: LOWER BACK PAIN Miscellaneous (Lidoderm Patch Removal) 1 each MC DAILY@2200 [facility] Last Admin: 03/13/19 22:46 Dose: Not Given Polyethylene Glycol (Miralax (For Daily Use) -) 17 gm PO DAILY [facility] Last Admin: 03/14/19 09:39 Dose: 17 gm Ranitidine HCl (Zantac -) 150 mg PO BID [facility] Last Admin: 03/14/19 09:38 Dose: 150 mg Tamsulosin HCl (Flomax -) 0.4 mg PO DAILY@0830 [facility] Last Admin: 03/14/19 09:38 Dose: 0.4 mg - Objective Vital Signs: Vital Signs Temperature 97.4 F L 03/14/19 13:00 Pulse Rate 70 03/14/19 13:00 Respiratory Rate 18 03/14/19 13:00 Blood Pressure 140/60 03/14/19 13:00 O2 Sat by Pulse Oximetry (%) 98 03/14/19 09:00 Constitutional: Yes: No Distress, Calm Eyes: Yes: Conjunctiva Clear Cardiovascular: Yes: Regular Rate and Rhythm Respiratory: Yes: Diminished (at bases) Gastrointestinal: Yes: Normal Bowel Sounds, Soft, Abdomen, Obese Genitourinary: Yes: WNL Extremities: Yes: WNL Edema: No Peripheral Pulses WNL: Yes Integumentary: Yes: WNL Neurological: Yes: Alert Labs: CBC, BMP 03/13/19 05:20 03/14/19 05:25 Microbiology 03/12/19 08:50 Urine - Urine [place] Urine Culture - Final Citrobacter Koseri Klebsiella Pneumoniae 03/08/19 12:30 Stool Salmonella/Shigella Culture - Final NO GROWTH OF SALMONELLA OR SHIGELLA SPECIES OBTAINED 03/08/19 12:30 Stool Campylobacter Culture - Final NO GROWTH OF CAMPYLOBACTER SPECIES OBTAINED 03/08/19 12:30 Stool Yersinia Culture - Final NO GROWTH OF YERSINIA SPECIES OBTAINED 03/08/19 12:30 Stool Vibrio Culture - Final NO GROWTH OF VIBRIO SPECIES OBTAINED 03/08/19 12:30 Stool Escherichia coli 0157 Culture - Final NO GROWTH OF E COLI 0157 OBTAINED 03/08/19 12:30 Stool Clostridioides difficile Antigen - Final 03/08/19 12:30 Stool Clostridioides difficile Toxin Assay - Final 03/08/19 12:30 Stool Gram Stain - Final Problem List - Problems (1) Acute on chronic respiratory failure with hypercapnia Code(s): J96.22 - ACUTE AND CHRONIC RESPIRATORY FAILURE WITH HYPERCAPNIA (2) CHF exacerbation Code(s): I50.9 - HEART FAILURE, UNSPECIFIED Qualifiers: Heart failure type: unspecified Qualified Code(s): I50.9 - Heart failure, unspecified (3) ANDRÉS (acute kidney injury) Code(s): N17.9 - ACUTE KIDNEY FAILURE, UNSPECIFIED (4) CAD (coronary artery disease) Code(s): I25.10 - ATHSCL HEART DISEASE OF [place] CORONARY ARTERY W/O ANG PCTRS Qualifiers: Coronary Disease-Associated Artery/Lesion type: [place] artery (5) CHF (congestive heart failure) Code(s): I50.9 - HEART FAILURE, UNSPECIFIED (6) CRF (chronic renal failure) Code(s): N18.9 - CHRONIC KIDNEY DISEASE, UNSPECIFIED Qualifiers: Chronic kidney disease stage: stage 4 (severe) Qualified Code(s): N18.4 - Chronic kidney disease, stage 4 (severe) (7) Diabetes mellitus Code(s): E11.9 - TYPE 2 DIABETES MELLITUS WITHOUT COMPLICATIONS Qualifiers: Diabetes mellitus type: type 2 Diabetes mellitus 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 Diabetes mellitus complication status : with other specified complication Qualified Code(s): E11.69 - Type 2 diabetes mellitus with other specified complication (8) UTI (urinary tract infection) Code(s): N39.0 - URINARY TRACT INFECTION, SITE NOT SPECIFIED (9) Weakness Code(s): R53.1 - WEAKNESS (10) Hypertension Code(s): I10 - ESSENTIAL (PRIMARY) HYPERTENSION Qualifiers: Hypertension type: unspecified Qualified Code(s): I10 - Essential (primary ) hypertension (11) Hypothyroidism Code(s): E03.9 - HYPOTHYROIDISM, UNSPECIFIED Qualifiers: Hypothyroidism type: unspecified Qualified Code(s): E03.9 - Hypothyroidism , unspecified Assessment/Plan UTI Acute on Chronic Respiratory failure Acute on Chronic Diastolic Heart Failure Acute on Chronic RF DM CAD HTN Hypothyroidism -- cultures noted, continue Ceftriaxone -- no current respiratory distress, afebrile -- continue monitor
[2019-03-14] MEDS: INSULIN (LEVEMIR) 100 UNITS/ML UNITS SQ SCH (22:24)
[2019-03-14] MEDS: LIDOCAINE PATCH REMOVAL MC SCH (22:25)
[2019-03-14] MEDS: GABAPENTIN 300 MG CAPSULE (FP) PO SCH (22:25)
[2019-03-14] MEDS: ATORVASTATIN CA 20 MG TABLET (FP) PO SCH (22:25)
[2019-03-14] MEDS: LATANOPROST 0.005% OPHTH SOLN 2.5ML BOTTLE OU SCH (22:26)
[2019-03-15] MEDS: LEVOTHYROXINE NA 50 MCG TABLET (FP) PO SCH (06:45)
[2019-03-15] MEDS: INSULIN SLIDING SCALE (NOVOLOG) 1 VIAL SQ SCH ×5 (06:45→21:37)
[2019-03-15] MEDS: FUROSEMIDE 40 MG TABLET (FP) PO SCH (06:45)
[2019-03-15 07:43] LABS: ALBUMIN 3.2 g/dl (3.4-5.0); BASO % 0.3 % (0-2.0); BILIRUBIN,TOTAL 0.5 mg/dL (0.2-1); CALCIUM 10.5 mg/dL (8.5-10.1); CREATININE 1.7 mg/dL (0.55-1.3); EOS % 6.1 % (0-4.5); HEMATOCRIT 29.3 % (32.4-45.2); HEMOGLOBIN 9.7 GM/dL (10.7-15.3); LYMPH % 19.6 % (8-40); MAGNESIUM 2.9 mg/dL (1.8-2.4); MCH 29.1 pg (25.7-33.7); MEAN CELL VOLUME 88.2 fl (80-96); MEAN PLT VOLUME 9.7 fl (7.5-11.1); MONO % 14.2 % (3.8-10.2); NEUT % 59.8 % (42.8-82.8); PHOSPHOROUS 5.2 mg/dL (2.5-4.9); PLATELET COUNT 206 K/MM3 (134-434); POTASSIUM 4.3 mmol/L (3.5-5.1); RBC 3.33 M/mm3 (3.60-5.2); RDW 17.8 % (11.6-15.6); TOT PROT 5.8 g/dl (6.4-8.2); WHITE BLOOD COUNT 9.8 K/mm3 (4.0-10.0)
--- NOTE | 2019-03-15 08:24 | PN ---
Progress Note, Physician Chief Complaint: OOB to chair feels very weak can not stand up (only with support) had problems urinating, saw started Flomax; had [place] less diarrhea no abd pain; has L foot pain - has glynn seen by ortho - Current Medication List Current Medications: Active Medications Acetaminophen (Tylenol -) 650 mg PO Q4H PRN PRN Reason: PAIN LEVEL 1-5 Last Admin: 03/14/19 22:26 Dose: 650 mg Albuterol Sulfate (Ventolin 0.083% Nebulizer Soln -) 1 amp NEB RQID PRN PRN Reason: SHORT OF BREATH/WHEEZING Allopurinol (Zyloprim -) [address] [facility] Last Admin: 03/14/19 09:39 Dose: 100 mg Artificial Tears (Artificial Tears) [address] [facility] Last Admin: 03/14/19 22:24 Dose: 1 drp Aspirin (Ecotrin -) [address] [facility] Last Admin: 03/14/19 09:39 Dose: 81 mg Atorvastatin Calcium (Lipitor -) [address] [facility] Last Admin: 03/14/19 22:25 Dose: 20 mg Bisacodyl (Dulcolax -) 5 mg PO HS PRN PRN Reason: CONSTIPATION Carvedilol (Coreg -) 12.[address] [facility] Last Admin: 03/14/19 22:24 Dose: 12.5 mg Furosemide (Lasix -) 80 mg PO DAILY@0600 [facility] Last Admin: 03/15/19 06:45 Dose: 80 mg Gabapentin (Neurontin -) [address] [facility] Last Admin: 03/14/19 22:25 Dose: 300 mg Heparin Sodium (Porcine) (Heparin -) 5,[address] [facility] Last Admin: 03/14/19 22:24 Dose: 5,000 unit Ceftriaxone Sodium 1 gm/ (Dextrose) 50 mls @ 100 mls/hr IVPB DAILY [facility]; Protocol Last Admin: 03/14/19 09:39 Dose: 100 mls/hr Insulin Aspart (Novolog Vial Sliding Scale -) 1 vial SQ [facility]; Protocol Last Admin: 03/15/19 06:45 Dose: 2 unit Insulin Detemir (Levemir Vial) [address] [facility] Last Admin: 03/14/19 22:24 Dose: 18 units Isosorbide Mononitrate (Imdur -) [address] [facility] Last Admin: 03/14/19 09:39 Dose: 90 mg Latanoprost (Xalatan 0.005% Eye Drops -) [address] [facility] Last Admin: 03/14/19 22:26 Dose: 1 drop Levothyroxine Sodium (Synthroid -) [address] [facility] Last Admin: 03/15/19 06:45 Dose: 50 mcg Lidocaine (Lidoderm Patch -) 1 patch TP DAILY PRN PRN Reason: LOWER BACK PAIN Miscellaneous (Lidoderm Patch Removal) 1 each MC DAILY@2200 [facility] Last Admin: 03/14/19 22:25 Dose: Not Given Polyethylene Glycol (Miralax (For Daily Use) -) [address] [facility] Last Admin: 03/14/19 09:39 Dose: 17 gm Ranitidine HCl (Zantac -) [address] [facility] Last Admin: 03/14/19 22:26 Dose: 150 mg Tamsulosin HCl (Flomax -) 0.4 mg PO DAILY@0830 [facility] Last Admin: 03/14/19 09:38 Dose: 0.4 mg - Objective Vital Signs: Vital Signs Temperature 98.5 F 03/15/19 05:00 Pulse Rate 74 03/15/19 05:00 Respiratory Rate 19 03/15/19 08:16 Blood Pressure 118/67 03/15/19 05:00 O2 Sat by Pulse Oximetry (%) 98 03/15/19 08:16 Constitutional: Yes: No Distress, Calm Eyes: Yes: Conjunctiva Clear HENT: Yes: Atraumatic Neck: Yes: Supple Cardiovascular: Yes: Regular Rate and Rhythm Respiratory: Yes: Diminished Gastrointestinal: Yes: Soft. No: Tenderness Genitourinary: No: Hematuria Musculoskeletal: No: Joint Stiffness, Joint Swelling Extremities: No: Cold, Cool Edema: No Integumentary: No: Rash, Venous Stasis Changes Neurological: Yes: WNL, Alert, Oriented ...Motor Strength: WNL Psychiatric: Yes: WNL, Alert, Oriented. No: Agitated, Suicidal Ideation Labs: CBC, BMP 03/15/19 05:22 03/15/19 05:22 - ....Imaging Other: Report Reviewed Assessment/Plan Pt presents to the ED complaining of a two day history of worsening abdominal distention, shortness of breath and diarrhea. History of CHF, chronically on home o2, increasingly lethargic, decreased po intake. s/p fall x 2 at home SOB CHF / COPD exac; pulm and cardio f/u; prn BIPAP / telemetry monitoring ARF/CRF; uncontrolled DM, rabdomyolisis, prerenal azotemia, s/p lasix lower dose f/u labs urinary retention had [place] in 24h, seen by BRITTANY, on flomax; [place] out now, watch UO closely L foot pain hematoma ortho f/u - PT rehab, support glynn falls decubs DVT pfx prognosis guarded d/w pt turn in bed q1h to prevent decubs; do not get OOB alone to prevent falls d.w staff d.w daughter L[place]ary - pt will need PT SNF
[2019-03-15] MEDS ORDERED: cefTRIAXone SODIUM 1 GM VIAL ONE (09:09)
[2019-03-15] MEDS ORDERED: DEXTROSE 5%-WATER - 50 ML IVPB ONE (09:09)
[2019-03-15] MEDS: CEFTRIAXONE 1 GM in DEXTROSE 5%-WATER - 50 ML IVPB SCH (10:22)
[2019-03-15] MEDS: ASPIRIN COATED 81 MG TABLET.EC PO SCH (10:25)
[2019-03-15] MEDS: RANITIDINE HCL 150 MG TABLET (FP) PO SCH ×2 (10:25→21:29)
[2019-03-15] MEDS: CARVEDILOL 12.5 MG TABLET (FP) PO SCH ×2 (10:25→21:30)
[2019-03-15] MEDS: ALLOPURINOL 100 MG TABLET (FP) PO SCH (10:25)
[2019-03-15] MEDS: TAMSULOSIN HCL 0.4 MG CAP PO SCH (10:25)
[2019-03-15] MEDS: ISOSORBIDE MONONITRATE 30 MG TAB.SR.24H (FP) PO SCH (10:29)
[2019-03-15] MEDS: HEPARIN NA (PORCINE) 5,000 UNITS/ML 1ML VIAL SQ SCH ×2 (10:30→21:30)
[2019-03-15] MEDS: POLYETHYLENE GLYCOL 3350 119 GM BTL PO SCH (10:30)
[2019-03-15] MEDS: ARTIFICIAL TEARS (POLYVINYL ALCOHOL) OPTH DROPS OU SCH ×2 (10:50→21:30)
--- NOTE | 2019-03-15 11:30 | PN ---
Progress Note, Physician History of Present Illness: PULMONARY ALERT,COMFORTABLE,-RESP DISTRESS - Current Medication List Current Medications: Active Medications Acetaminophen (Tylenol -) 650 mg PO Q4H PRN PRN Reason: PAIN LEVEL 1-5 Last Admin: 03/14/19 22:26 Dose: 650 mg Albuterol Sulfate (Ventolin 0.083% Nebulizer Soln -) 1 amp NEB RQID PRN PRN Reason: SHORT OF BREATH/WHEEZING Allopurinol (Zyloprim -) 100 mg PO DAILY [facility] Last Admin: 03/15/19 10:25 Dose: 100 mg Artificial Tears (Artificial Tears) 1 drop OU BID [facility] Last Admin: 03/15/19 10:50 Dose: 1 drp Aspirin (Ecotrin -) 81 mg PO DAILY [facility] Last Admin: 03/15/19 10:25 Dose: 81 mg Atorvastatin Calcium (Lipitor -) 20 mg PO HS [facility] Last Admin: 03/14/19 22:25 Dose: 20 mg Bisacodyl (Dulcolax -) 5 mg PO HS PRN PRN Reason: CONSTIPATION Carvedilol (Coreg -) 12.5 mg PO BID [facility] Last Admin: 03/15/19 10:25 Dose: 12.5 mg Furosemide (Lasix -) 80 mg PO DAILY@0600 [facility] Last Admin: 03/15/19 06:45 Dose: 80 mg Gabapentin (Neurontin -) 300 mg PO HS [facility] Last Admin: 03/14/19 22:25 Dose: 300 mg Heparin Sodium (Porcine) (Heparin -) 5,000 unit SQ BID [facility] Last Admin: 03/15/19 10:30 Dose: 5,000 unit Ceftriaxone Sodium 1 gm/ (Dextrose) 50 mls @ 100 mls/hr IVPB DAILY [facility]; Protocol Last Admin: 03/15/19 10:22 Dose: 100 mls/hr Insulin Aspart (Novolog Vial Sliding Scale -) 1 vial SQ ACHS [facility]; Protocol Last Admin: 03/15/19 06:45 Dose: 2 unit Insulin Detemir (Levemir Vial) 18 units SQ HS [facility] Last Admin: 03/14/19 22:24 Dose: 18 units Isosorbide Mononitrate (Imdur -) 90 mg PO DAILY [facility] Last Admin: 03/15/19 10:29 Dose: 90 mg Latanoprost (Xalatan 0.005% Eye Drops -) [address] [facility] Last Admin: 03/14/19 22:26 Dose: 1 drop Levothyroxine Sodium (Synthroid -) 50 mcg PO AM [facility] Last Admin: 03/15/19 06:45 Dose: 50 mcg Lidocaine (Lidoderm Patch -) 1 patch TP DAILY PRN PRN Reason: LOWER BACK PAIN Miscellaneous (Lidoderm Patch Removal) 1 each MC DAILY@2200 [facility] Last Admin: 03/14/19 22:25 Dose: Not Given Polyethylene Glycol (Miralax (For Daily Use) -) 17 gm PO DAILY [facility] Last Admin: 03/15/19 10:30 Dose: 17 gm Ranitidine HCl (Zantac -) 150 mg PO BID [facility] Last Admin: 03/15/19 10:25 Dose: 150 mg Tamsulosin HCl (Flomax -) 0.4 mg PO DAILY@0830 [facility] Last Admin: 03/15/19 10:25 Dose: 0.4 mg - Objective Vital Signs: Vital Signs Temperature 98.5 F 03/15/19 05:00 Pulse Rate 74 03/15/19 05:00 Respiratory Rate 03/15/19 08:16 Blood Pressure 118/67 03/15/19 05:00 O2 Sat by Pulse Oximetry (%) 98 03/15/19 08:16 Constitutional: Yes: Well Nourished, Calm Eyes: Yes: WNL HENT: Yes: WNL Neck: Yes: WNL Cardiovascular: Yes: Regular Rate and Rhythm, S1, S2 Respiratory: Yes: Diminished Gastrointestinal: Yes: Normal Bowel Sounds, Soft Extremities: Yes: WNL Edema: Yes Labs: CBC, BMP 03/15/19 05:22 03/15/19 05:22 Problem List - Problems (1) Acute on chronic respiratory failure with hypoxia and hypercapnia Code(s): J96.21 - ACUTE AND CHRONIC RESPIRATORY FAILURE WITH HYPOXIA; J96.22 - ACUTE AND CHRONIC RESPIRATORY FAILURE WITH HYPERCAPNIA (2) CHF exacerbation Code(s): I50.9 - HEART FAILURE, UNSPECIFIED Qualifiers: Heart failure type: unspecified Qualified Code(s): I50.9 - Heart failure, unspecified (3) Anemia Code(s): D64.9 - ANEMIA, UNSPECIFIED (4) Bilateral lower extremity edema Code(s): R60.0 - LOCALIZED EDEMA (5) CAD (coronary artery disease) Code(s): I25.10 - ATHSCL HEART DISEASE OF [place] CORONARY ARTERY W/O ANG PCTRS Qualifiers: Coronary Disease-Associated Artery/Lesion type: [place] artery (6) CHF (congestive heart failure) Code(s): I50.9 - HEART FAILURE, UNSPECIFIED (7) CRF (chronic renal failure) Code(s): N18.9 - CHRONIC KIDNEY DISEASE, UNSPECIFIED Qualifiers: Chronic kidney disease stage: stage 4 (severe) Qualified Code(s): N18.4 - Chronic kidney disease, stage 4 (severe) (8) Diabetes mellitus Code(s): E11.9 - TYPE 2 DIABETES MELLITUS WITHOUT COMPLICATIONS Qualifiers: Diabetes mellitus type: type 2 Diabetes mellitus mcc insulin use: unspecified mcc insulin use status Diabetes mellitus complication status : with other specified complication Qualified Code(s): E11.69 - Type 2 diabetes mellitus with other specified complication (9) Hypertension Code(s): I10 - ESSENTIAL (PRIMARY) HYPERTENSION Qualifiers: Hypertension type: unspecified Qualified Code(s): I10 - Essential (primary ) hypertension (10) CHF exacerbation Code(s): I50.9 - HEART FAILURE, UNSPECIFIED (11) Dyspnea Code(s): R06.00 - DYSPNEA, UNSPECIFIED Qualifiers: Dyspnea type: other forms of dyspnea Qualified Code(s): R06.09 - Other forms of dyspnea Assessment/Plan IMP ACUTE ON CHRONIC HYPOXEMIC /HYPERCAPNEIC RESPIRATORY FAILURE ACUTE ON CHRONIC CHF ACUTE ON CKD HTN HLD DM ASHD SUSPECTED [place] PLAN LASIX O2 BIPAP NEEDED MONITOR LYTES,RENAL FUNCTION F/U CHEST X-RAYS DAILY WTS F/U ABGS OUTPATIENT SLEEP STUDIES MONITOR LYTES CONSIDER TRIOLGY DEVICE AT HOME DR DUBOIS Problem List - Problems (1) Acute on chronic respiratory failure with hypoxia and hypercapnia Code(s): J96.21 - ACUTE AND CHRONIC RESPIRATORY FAILURE WITH HYPOXIA; J96.22 - ACUTE AND CHRONIC RESPIRATORY FAILURE WITH HYPERCAPNIA (2) CHF exacerbation Code(s): I50.9 - HEART FAILURE, UNSPECIFIED Qualifiers: Heart failure type: unspecified Qualified Code(s): I50.9 - Heart failure, unspecified (3) Anemia Code(s): D64.9 - ANEMIA, UNSPECIFIED (4) Bilateral lower extremity edema Code(s): R60.0 - LOCALIZED EDEMA (5) CAD (coronary artery disease) Code(s): I25.10 - ATHSCL HEART DISEASE OF [place] CORONARY ARTERY W/O ANG PCTRS Qualifiers: Coronary Disease-Associated Artery/Lesion type: [place] artery (6) CHF (congestive heart failure) Code(s): I50.9 - HEART FAILURE, UNSPECIFIED (7) CRF (chronic renal failure) Code(s): N18.9 - CHRONIC KIDNEY DISEASE, UNSPECIFIED Qualifiers: Chronic kidney disease stage: stage 4 (severe) Qualified Code(s): N18.4 - Chronic kidney disease, stage 4 (severe) (8) Diabetes mellitus Code(s): E11.9 - TYPE 2 DIABETES MELLITUS WITHOUT COMPLICATIONS Qualifiers: Diabetes mellitus type: type 2 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
--- NOTE | 2019-03-15 12:28 | PN ---
Progress Note, Physician History of Present Illness: Dyspnea, lower extremity swelling resolving, left foot hematoma tenderness improved. Sitting in chair. - Current Medication List Current Medications: Active Medications Acetaminophen (Tylenol -) 650 mg PO Q4H PRN PRN Reason: PAIN LEVEL 1-5 Last Admin: 03/14/19 22:26 Dose: 650 mg Albuterol Sulfate (Ventolin 0.083% Nebulizer Soln -) 1 amp NEB RQID PRN PRN Reason: SHORT OF BREATH/WHEEZING Allopurinol (Zyloprim -) 100 mg PO DAILY [facility] Last Admin: 03/15/19 10:25 Dose: 100 mg Artificial Tears (Artificial Tears) 1 drop OU BID [facility] Last Admin: 03/15/19 10:50 Dose: 1 drp Aspirin (Ecotrin -) 81 mg PO DAILY [facility] Last Admin: 03/15/19 10:25 Dose: 81 mg Atorvastatin Calcium (Lipitor -) 20 mg PO HS [facility] Last Admin: 03/14/19 22:25 Dose: 20 mg Bisacodyl (Dulcolax -) 5 mg PO HS PRN PRN Reason: CONSTIPATION Carvedilol (Coreg -) 12.5 mg PO BID [facility] Last Admin: 03/15/19 10:25 Dose: 12.5 mg Furosemide (Lasix -) 80 mg PO DAILY@0600 [facility] Last Admin: 03/15/19 06:45 Dose: 80 mg Gabapentin (Neurontin -) 300 mg PO HS [facility] Last Admin: 03/14/19 22:25 Dose: 300 mg Heparin Sodium (Porcine) (Heparin -) 5,000 unit SQ BID [facility] Last Admin: 03/15/19 10:30 Dose: 5,000 unit Ceftriaxone Sodium 1 gm/ (Dextrose) 50 mls @ 100 mls/hr IVPB DAILY [facility]; Protocol Last Admin: 03/15/19 10:22 Dose: 100 mls/hr Insulin Aspart (Novolog Vial Sliding Scale -) 1 vial SQ ACHS [facility]; Protocol Last Admin: 03/15/19 06:45 Dose: 2 unit Insulin Detemir (Levemir Vial) 18 units SQ HS [facility] Last Admin: 03/14/19 22:24 Dose: 18 units Isosorbide Mononitrate (Imdur -) 90 mg PO DAILY [facility] Last Admin: 03/15/19 10:29 Dose: 90 mg Latanoprost (Xalatan 0.005% Eye Drops -) 1 drop OU HS [facility] Last Admin: 03/14/19 22:26 Dose: 1 drop Levothyroxine Sodium (Synthroid -) 50 mcg PO AM [facility] Last Admin: 03/15/19 06:45 Dose: 50 mcg Lidocaine (Lidoderm Patch -) 1 patch TP DAILY PRN PRN Reason: LOWER BACK PAIN Miscellaneous (Lidoderm Patch Removal) 1 each MC DAILY@2200 [facility] Last Admin: 03/14/19 22:25 Dose: Not Given Polyethylene Glycol (Miralax (For Daily Use) -) 17 gm PO DAILY [facility] Last Admin: 03/15/19 10:30 Dose: 17 gm Ranitidine HCl (Zantac -) 150 mg PO BID [facility] Last Admin: 03/15/19 10:25 Dose: 150 mg Tamsulosin HCl (Flomax -) 0.4 mg PO DAILY@0830 [facility] Last Admin: 03/15/19 10:25 Dose: 0.4 mg - Objective Vital Signs: Vital Signs Temperature 98.5 F 03/15/19 05:00 Pulse Rate 74 03/15/19 05:00 Respiratory Rate 03/15/19 08:16 Blood Pressure 118/67 03/15/19 05:00 O2 Sat by Pulse Oximetry (%) 98 03/15/19 08:16 Constitutional: Yes: No Distress, Calm Neck: Yes: Supple Cardiovascular: Yes: Regular Rate and Rhythm Respiratory: Yes: Regular, Diminished, On Nasal O2, SOB Gastrointestinal: Yes: Normal Bowel Sounds, Soft, Abdomen, Obese Edema: No Labs: CBC, BMP 03/15/19 05:22 03/15/19 05:22 Problem List - Problems (1) Acute on chronic respiratory failure with hypercapnia Code(s): J96.22 - ACUTE AND CHRONIC RESPIRATORY FAILURE WITH HYPERCAPNIA (2) Bilateral lower extremity edema Code(s): R60.0 - LOCALIZED EDEMA (3) Fall Code(s): W19.XXXA - UNSPECIFIED FALL, INITIAL ENCOUNTER Qualifiers: Encounter type: initial encounter Qualified Code(s): W19.XXXA - Unspecified fall, initial encounter (4) Non-occlusive coronary artery disease Code(s): I25.10 - ATHSCL HEART DISEASE OF [place] CORONARY ARTERY W/O ANG PCTRS (5) Diabetes mellitus with diabetic cardiomyopathy Code(s): E11.59 - TYPE 2 DIABETES MELLITUS WITH OTH CIRCULATORY COMPLICATIONS; I43 - CARDIOMYOPATHY IN DISEASES CLASSIFIED ELSEWHERE (6) Endothelial dysfunction of coronary artery Code(s): I99.8 - OTHER DISORDER OF CIRCULATORY SYSTEM (7) Hyperlipidemia Code(s): E78.5 - HYPERLIPIDEMIA, UNSPECIFIED Qualifiers: Hyperlipidemia type: pure hypercholesterolemia Qualified Code(s): E78.00 - Pure hypercholesterolemia, unspecified; E78.0 - Pure hypercholesterolemia (8) Hypertension Code(s): I10 - ESSENTIAL (PRIMARY) HYPERTENSION Qualifiers: Hypertension type: unspecified Qualified Code(s): I10 - Essential (primary ) hypertension (9) Hypothyroidism Code(s): E03.9 - HYPOTHYROIDISM, UNSPECIFIED Qualifiers: Hypothyroidism type: unspecified Qualified Code(s): E03.9 - Hypothyroidism , unspecified (10) Acute on chronic diastolic congestive heart failure Code(s): I50.33 - ACUTE ON CHRONIC DIASTOLIC (CONGESTIVE) HEART FAILURE (11) [id number] kidney injury Code(s): N17.9 - ACUTE KIDNEY FAILURE, UNSPECIFIED; N18.9 - CHRONIC KIDNEY DISEASE, UNSPECIFIED Qualifiers: Chronic kidney disease stage: stage 4 (severe) Assessment/Plan 01/04/2016 normal LAD, 30% mild LCX and 60% mid RCA stenosis. Echocardiography (11/08/17) revealed normal LV systolic function, moderate LVH, trace to mild MR. 1. Acute on chronic hypoxemic/hypercapneic respiratory failure post fall resolved 2. Acute on chronic LV diastolic failure resolved 3. CAD - non-obstructive, angina pectoris 4. HTN 5. Hypercholesterolemia 6. Type 2 DM 7. Hypothyroidism 8. Acute on CKD stage 4, prerenal azotemia 9. H/o Hypovolemic hyponatremia and hypokalemia from diuretics and poor oral intake resolved 10. Spinal stenosis, cervical radiculopathy 11. Anemia 12. OSAS suspect 13. Left foot contusion PLAN: 1. Continue Lasix 80 qd with monitor diuretic response, renal fxn and electrolytes, trilogy machine and O2 a needed. ice and elevate foot, post-op shoe 2. Continue ASA 81 qd, Carvedilol 12.5 mg BID, Lipitor 20 mg QHS, Imdur 90 mg QD and Hydralazine 50 mg TID as tolerated 3. Ideally addition of CHRISTINE inhibitor or angiotensin receptor rayo therapy is recommended once renal function stabilizes/at baseline with close monitoring of renal function and electrolytes 4. Emphasized importance diet and medication compliance 5. GI and DVT prophylaxis, OOB to chair with PT as tolerated
[2019-03-15] MEDS ORDERED: ACETAMINOPHEN 1000 MG/100 ML VIAL (NON FORMULARY) IVPB ONE (13:07)
--- NOTE | 2019-03-15 13:19 | PN ---
Progress Note, Physician History of Present Illness: stable back pain all cx results noted - Current Medication List Current Medications: Active Medications Acetaminophen (Tylenol -) 650 mg PO Q4H PRN PRN Reason: PAIN LEVEL 1-5 Last Admin: 03/14/19 22:26 Dose: 650 mg Albuterol Sulfate (Ventolin 0.083% Nebulizer Soln -) 1 amp NEB RQID PRN PRN Reason: SHORT OF BREATH/WHEEZING Allopurinol (Zyloprim -) 100 mg PO DAILY [facility] Last Admin: 03/15/19 10:25 Dose: 100 mg Artificial Tears (Artificial Tears) 1 drop OU BID [facility] Last Admin: 03/15/19 10:50 Dose: 1 drp Aspirin (Ecotrin -) 81 mg PO DAILY [facility] Last Admin: 03/15/19 10:25 Dose: 81 mg Atorvastatin Calcium (Lipitor -) 20 mg PO HS [facility] Last Admin: 03/14/19 22:25 Dose: 20 mg Bisacodyl (Dulcolax -) 5 mg PO HS PRN PRN Reason: CONSTIPATION Carvedilol (Coreg -) 12.5 mg PO BID [facility] Last Admin: 03/15/19 10:25 Dose: 12.5 mg Furosemide (Lasix -) 80 mg PO DAILY@0600 [facility] Last Admin: 03/15/19 06:45 Dose: 80 mg Gabapentin (Neurontin -) 300 mg PO HS [facility] Last Admin: 03/14/19 22:25 Dose: 300 mg Heparin Sodium (Porcine) (Heparin -) 5,000 unit SQ BID [facility] Last Admin: 03/15/19 10:30 Dose: 5,000 unit Ceftriaxone Sodium 1 gm/ (Dextrose) 50 mls @ 100 mls/hr IVPB DAILY [facility]; Protocol Last Admin: 03/15/19 10:22 Dose: 100 mls/hr Insulin Aspart (Novolog Vial Sliding Scale -) 1 vial SQ [facility]; Protocol Last Admin: 03/15/19 12:20 Dose: 2 unit Insulin Detemir (Levemir Vial) 18 units SQ HS [facility] Last Admin: 03/14/19 22:24 Dose: 18 units Isosorbide Mononitrate (Imdur -) 90 mg PO DAILY [facility] Last Admin: 03/15/19 10:29 Dose: 90 mg Latanoprost (Xalatan 0.005% Eye Drops -) 1 drop OU [facility] Last Admin: 03/14/19 22:26 Dose: 1 drop Levothyroxine Sodium (Synthroid -) 50 mcg PO AM [facility] Last Admin: 03/15/19 06:45 Dose: 50 mcg Lidocaine (Lidoderm Patch -) 1 patch TP DAILY PRN PRN Reason: LOWER BACK PAIN Miscellaneous (Lidoderm Patch Removal) 1 each MC DAILY@2200 [facility] Last Admin: 03/14/19 22:25 Dose: Not Given Polyethylene Glycol (Miralax (For Daily Use) -) 17 gm PO DAILY [facility] Last Admin: 03/15/19 10:30 Dose: 17 gm Ranitidine HCl (Zantac -) 150 mg PO BID [facility] Last Admin: 03/15/19 10:25 Dose: 150 mg Tamsulosin HCl (Flomax -) 0.4 mg PO DAILY@0830 [facility] Last Admin: 03/15/19 10:25 Dose: 0.4 mg - Objective Vital Signs: Vital Signs Temperature 98.3 F 03/15/19 09:00 Pulse Rate 58 L 03/15/19 09:00 Respiratory Rate 18 03/15/19 09:00 Blood Pressure 133/46 L 03/15/19 09:00 O2 Sat by Pulse Oximetry (%) 98 03/15/19 08:16 Constitutional: Yes: Calm, Mild Distress Cardiovascular: Yes: S1, S2 Respiratory: Yes: Regular, CTA Bilaterally Gastrointestinal: Yes: Normal Bowel Sounds, Soft Musculoskeletal: Yes: WNL Extremities: Yes: Other Neurological: Yes: Alert, Oriented Psychiatric: Yes: Alert, Oriented Labs: CBC, BMP 03/15/19 05:22 03/15/19 05:22 Assessment/Plan Problem List - Problems (1) Acute on chronic respiratory failure with hypoxia and hypercapnia Code(s): J96.21 - ACUTE AND CHRONIC RESPIRATORY FAILURE WITH HYPOXIA; J96.22 - ACUTE AND CHRONIC RESPIRATORY FAILURE WITH HYPERCAPNIA (2) ANDRÉS (acute kidney injury) Code(s): N17.9 - ACUTE KIDNEY FAILURE, UNSPECIFIED (3) CRF (chronic renal failure) Code(s): N18.9 - CHRONIC KIDNEY DISEASE, UNSPECIFIED Qualifiers: Chronic kidney disease stage: stage 4 (severe) Qualified Code(s): N18.4 - Chronic kidney disease, stage 4 (severe) (4) Hyperkalemia Code(s): E87.5 - HYPERKALEMIA (5) Fall Code(s): W19.XXXA - UNSPECIFIED FALL, INITIAL ENCOUNTER Qualifiers: Encounter type: initial encounter Qualified Code(s): W19.XXXA - Unspecified fall, initial encounter (6) CAD (coronary artery disease) Code(s): I25.10 - ATHSCL HEART DISEASE OF [place] CORONARY ARTERY W/O ANG PCTRS Qualifiers: Coronary Disease-Associated Artery/Lesion type: [place] artery [place] vs. 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
--- NOTE | 2019-03-15 15:07 | PN ---
Progress Note (short form) - Note Progress Note: Renal follow up for CKD Seen and examined at the bedside awake and alert sitting in chair no acute complaints denies any sob, cp, abd pain, fever, chills making urine Vital Signs Temperature 98.3 F 03/15/19 09:00 Pulse Rate 58 L 03/15/19 09:00 Respiratory Rate 18 03/15/19 09:00 Blood Pressure 133/46 L 03/15/19 09:00 O2 Sat by Pulse Oximetry (%) 98 03/15/19 08:16 Intake & Output 03/12/19 03/13/19 03/14/19 03/15/19 23:59 23:59 23:59 23:59 Intake Total 1250 10 260 Output Total 2300 2200 1100 Balance -1050 -2190 -840 Weight 70.76 kg 76.113 kg 77.292 kg on NC O2 no acute distress trace edema in LE CBC, BMP 03/15/19 05:22 03/15/19 05:22 Current Medications Acetaminophen (Tylenol -) 650 mg PO Q4H PRN PRN Reason: PAIN LEVEL 1-5 Last Admin: 03/14/19 22:26 Dose: 650 mg Albuterol Sulfate (Ventolin 0.083% Nebulizer Soln -) 1 amp NEB RQID PRN PRN Reason: SHORT OF BREATH/WHEEZING Allopurinol (Zyloprim -) 100 mg PO DAILY [facility] Last Admin: 03/15/19 10:25 Dose: 100 mg Artificial Tears (Artificial Tears) 1 drop OU BID [facility] Last Admin: 03/15/19 10:50 Dose: 1 drp Aspirin (Ecotrin -) 81 mg PO DAILY [facility] Last Admin: 03/15/19 10:25 Dose: 81 mg Atorvastatin Calcium (Lipitor -) 20 mg PO HS [facility] Last Admin: 03/14/19 22:25 Dose: 20 mg Bisacodyl (Dulcolax -) 5 mg PO HS PRN PRN Reason: CONSTIPATION Carvedilol (Coreg -) 12.5 mg PO BID [facility] Last Admin: 03/15/19 10:25 Dose: 12.5 mg Furosemide (Lasix -) 80 mg PO DAILY@0600 [facility] Last Admin: 03/15/19 06:45 Dose: 80 mg Gabapentin (Neurontin -) 300 mg PO HS [facility] Last Admin: 03/14/19 22:25 Dose: 300 mg Heparin Sodium (Porcine) (Heparin -) 5,000 unit SQ BID [facility] Last Admin: 03/15/19 10:30 Dose: 5,000 unit Ceftriaxone Sodium 1 gm/ (Dextrose) 50 mls @ 100 mls/hr IVPB DAILY [facility]; Protocol Last Admin: 03/15/19 10:22 Dose: 100 mls/hr Insulin Aspart (Novolog Vial Sliding Scale -) 1 vial SQ ACHS [facility]; Protocol Last Admin: 03/15/19 12:20 Dose: 2 unit Insulin Detemir (Levemir Vial) 18 units SQ HS [facility] Last Admin: 03/14/19 22:24 Dose: 18 units Isosorbide Mononitrate (Imdur -) 90 mg PO DAILY [facility] Last Admin: 03/15/19 10:29 Dose: 90 mg Latanoprost (Xalatan 0.005% Eye Drops -) 1 drop OU HS [facility] Last Admin: 03/14/19 22:26 Dose: 1 drop Levothyroxine Sodium (Synthroid -) 50 mcg PO AM [facility] Last Admin: 03/15/19 06:45 Dose: 50 mcg Lidocaine (Lidoderm Patch -) 1 patch TP DAILY PRN PRN Reason: LOWER BACK PAIN Miscellaneous (Lidoderm Patch Removal) 1 each MC DAILY@2200 [facility] Last Admin: 03/14/19 22:25 Dose: Not Given Polyethylene Glycol (Miralax (For Daily Use) -) 17 gm PO DAILY [facility] Last Admin: 03/15/19 10:30 Dose: 17 gm Ranitidine HCl (Zantac -) 150 mg PO BID [facility] Last Admin: 03/15/19 10:25 Dose: 150 mg Tamsulosin HCl (Flomax -) 0.4 mg PO DAILY@0830 [facility] Last Admin: 03/15/19 10:25 Dose: 0.4 mg 83 year old [place] woman with history of CKD stage 4 (baseline Cr ~2), DM Type 2, CHF with diastolic dysfunction, hypertension who presented from home with a fall and diarrhea. 1. CKD stage 4 2. Fall 3. Diarrhea r/o infectious etiology 4. CHF with diastolic dysfunction 5. Anemia 6. Hypertension Renal function is overall improved. BUN remains elevated which is likely multifactorial in etiology (urinary retention, steroids, diuretics), however she has no uremic symptoms. Hypercalcemia noted, no acute intervention needed but will check PTH and SPEP. Continue Lasix daily maintain johnston as per BRITTANY oconnell Trend renal function and electrolytes closely. Dose all meds for CrCl < 15 Fall precautions BIPAP as needed Trend H/H Continue Coreg Wm Tian DO
[2019-03-15] MEDS: LATANOPROST 0.005% OPHTH SOLN 2.5ML BOTTLE OU SCH (21:29)
[2019-03-15] MEDS: ATORVASTATIN CA 20 MG TABLET (FP) PO SCH (21:29)
[2019-03-15] MEDS: GABAPENTIN 300 MG CAPSULE (FP) PO SCH (21:29)
[2019-03-15] MEDS: INSULIN (LEVEMIR) 100 UNITS/ML UNITS SQ SCH (21:30)
[2019-03-15] MEDS: LIDOCAINE PATCH REMOVAL MC SCH (21:46)
[2019-03-16] MEDS: ACETAMINOPHEN 325 MG TABLET (FP) PO PRN ×3 (01:18→21:54)
[2019-03-16] MEDS: FUROSEMIDE 40 MG TABLET (FP) PO SCH (05:59)
[2019-03-16] MEDS: LEVOTHYROXINE NA 50 MCG TABLET (FP) PO SCH (05:59)
[2019-03-16] MEDS: INSULIN SLIDING SCALE (NOVOLOG) 1 VIAL SQ SCH ×4 (06:00→21:56)
[2019-03-16 07:17] LABS: BASO % 0.3 % (0-2.0); EOS % 7.6 % (0-4.5); HEMATOCRIT 28.4 % (32.4-45.2); HEMOGLOBIN 9.5 GM/dL (10.7-15.3); LYMPH % 19.8 % (8-40); MCH 29.2 pg (25.7-33.7); MCHC 33.5 g/dl (32.0-36.0); MEAN CELL VOLUME 87.3 fl (80-96); MONO % 11.7 % (3.8-10.2); NEUT % 60.6 % (42.8-82.8); PLATELET COUNT 213 K/MM3 (134-434); RBC 3.25 M/mm3 (3.60-5.2); RDW 18.1 % (11.6-15.6); WHITE BLOOD COUNT 8.9 K/mm3 (4.0-10.0)
[2019-03-16 07:43] LABS: ALBUMIN 2.9 g/dl (3.4-5.0); BILIRUBIN,TOTAL 0.4 mg/dL (0.2-1); BLOOD UREA NITROGEN 86.9 mg/dL (7-18); CALCIUM 10.3 mg/dL (8.5-10.1); CREATININE 1.6 mg/dL (0.55-1.3); POTASSIUM 4.5 mmol/L (3.5-5.1); TOT PROT 5.8 g/dl (6.4-8.2)
[2019-03-16] MEDS ORDERED: DEXTROSE 5%-WATER - 50 ML IVPB ONE (08:25)
[2019-03-16] MEDS ORDERED: cefTRIAXone SODIUM 1 GM VIAL ONE (08:25)
[2019-03-16] MEDS: CEFTRIAXONE 1 GM in DEXTROSE 5%-WATER - 50 ML IVPB SCH (09:45)
[2019-03-16] MEDS: CARVEDILOL 12.5 MG TABLET (FP) PO SCH ×2 (09:46→21:55)
[2019-03-16] MEDS: ASPIRIN COATED 81 MG TABLET.EC PO SCH (09:47)
[2019-03-16] MEDS: ISOSORBIDE MONONITRATE 30 MG TAB.SR.24H (FP) PO SCH (09:47)
[2019-03-16] MEDS: TAMSULOSIN HCL 0.4 MG CAP PO SCH (09:47)
[2019-03-16] MEDS: RANITIDINE HCL 150 MG TABLET (FP) PO SCH ×2 (09:48→21:57)
[2019-03-16] MEDS: HEPARIN NA (PORCINE) 5,000 UNITS/ML 1ML VIAL SQ SCH ×2 (09:48→21:56)
[2019-03-16] MEDS: POLYETHYLENE GLYCOL 3350 119 GM BTL PO SCH (09:48)
[2019-03-16] MEDS: ALLOPURINOL 100 MG TABLET (FP) PO SCH (09:49)
[2019-03-16] MEDS: ARTIFICIAL TEARS (POLYVINYL ALCOHOL) OPTH DROPS OU SCH ×2 (09:49→21:57)
--- NOTE | 2019-03-16 11:46 | PN ---
Progress Note, Physician Chief Complaint: Events noted Not in distress History of Present Illness: Patient was seen and examined. Awake. Chart was reviewed Denies chest pain, SOB or palpitations - Current Medication List Current Medications: Active Medications Acetaminophen (Tylenol -) 650 mg PO Q4H PRN PRN Reason: PAIN LEVEL 1-5 Last Admin: 03/16/19 01:18 Dose: 650 mg Albuterol Sulfate (Ventolin 0.083% Nebulizer Soln -) 1 amp NEB RQID PRN PRN Reason: SHORT OF BREATH/WHEEZING Allopurinol (Zyloprim -) 100 mg PO DAILY [facility] Last Admin: 03/16/19 09:49 Dose: 100 mg Artificial Tears (Artificial Tears) 1 drop OU BID [facility] Last Admin: 03/16/19 09:49 Dose: 1 drop Aspirin (Ecotrin -) 81 mg PO DAILY [facility] Last Admin: 03/16/19 09:47 Dose: 81 mg Atorvastatin Calcium (Lipitor -) 20 mg PO HS [facility] Last Admin: 03/15/19 21:29 Dose: 20 mg Bisacodyl (Dulcolax -) 5 mg PO HS PRN PRN Reason: CONSTIPATION Carvedilol (Coreg -) 12.5 mg PO BID [facility] Last Admin: 03/16/19 09:46 Dose: 12.5 mg Furosemide (Lasix -) 80 mg PO DAILY@0600 [facility] Last Admin: 03/16/19 05:59 Dose: 80 mg Gabapentin (Neurontin -) 300 mg PO HS [facility] Last Admin: 03/15/19 21:29 Dose: 300 mg Heparin Sodium (Porcine) (Heparin -) 5,000 unit SQ BID [facility] Last Admin: 03/16/19 09:48 Dose: 5,000 unit Ceftriaxone Sodium 1 gm/ (Dextrose) 50 mls @ 100 mls/hr IVPB DAILY [facility]; Protocol Last Admin: 03/16/19 09:45 Dose: 100 mls/hr Insulin Aspart (Novolog Vial Sliding Scale -) 1 vial SQ [facility]; Protocol Last Admin: 03/16/19 06:00 Dose: Not Given Insulin Detemir (Levemir Vial) 18 units SQ HS [facility] Last Admin: 03/15/19 21:30 Dose: 18 units Isosorbide Mononitrate (Imdur -) 90 mg PO DAILY [facility] Last Admin: 03/16/19 09:47 Dose: 90 mg Latanoprost (Xalatan 0.005% Eye Drops -) 1 drop OU HS [facility] Last Admin: 03/15/19 21:29 Dose: 1 drop Levothyroxine Sodium (Synthroid -) 50 mcg PO AM [facility] Last Admin: 03/16/19 05:59 Dose: 50 mcg Lidocaine (Lidoderm Patch -) 1 patch TP DAILY PRN PRN Reason: LOWER BACK PAIN Miscellaneous (Lidoderm Patch Removal) 1 each MC DAILY@2200 [facility] Last Admin: 03/15/19 21:46 Dose: Not Given Polyethylene Glycol (Miralax (For Daily Use) -) 17 gm PO DAILY [facility] Last Admin: 03/16/19 09:48 Dose: 17 gm Ranitidine HCl (Zantac -) 150 mg PO BID [facility] Last Admin: 03/16/19 09:48 Dose: 150 mg Tamsulosin HCl (Flomax -) 0.4 mg PO DAILY@0830 [facility] Last Admin: 03/16/19 09:47 Dose: 0.4 mg - Objective Vital Signs: Vital Signs Temperature 97.7 F 03/16/19 06:00 Pulse Rate 59 L 03/16/19 06:00 Respiratory Rate 18 03/16/19 07:45 Blood Pressure 121/51 L 03/16/19 06:00 O2 Sat by Pulse Oximetry (%) 100 03/16/19 07:45 HENT: Yes: Atraumatic Neck: Yes: Supple Cardiovascular: Yes: Regular Rate and Rhythm, S1, S2 Respiratory: Yes: Diminished Gastrointestinal: Yes: Normal Bowel Sounds, Soft. No: Tenderness Edema: No Additional Findings/Remarks: - Review of Systems Constitutional: denies: Chills, Fever Cardiovascular: denies Chest Pain. denies: Palpitations, Shortness of Breath Respiratory: denies: Cough, Hemoptysis, Orthopnea, PND, SOB, SOB on Exertion Gastrointestinal: denies: Abdominal Pain, Constipation, Diarrhea, Melena, Nausea , Rectal Bleeding, Vomiting Neurological: denies Dizziness, Headache. denies: Seizure, Syncope Labs: CBC, BMP 03/16/19 05:44 03/16/19 05:44 Problem List - Problems (1) Acute on chronic respiratory failure with hypercapnia Code(s): J96.22 - ACUTE AND CHRONIC RESPIRATORY FAILURE WITH HYPERCAPNIA (2) Acute on chronic respiratory failure with hypoxia and hypercapnia Code(s): J96.21 - ACUTE AND CHRONIC RESPIRATORY FAILURE WITH HYPOXIA; J96.22 - ACUTE AND CHRONIC RESPIRATORY FAILURE WITH HYPERCAPNIA (3) CHF exacerbation Code(s): I50.9 - HEART FAILURE, UNSPECIFIED Qualifiers: Heart failure type: unspecified Qualified Code(s): I50.9 - Heart failure, unspecified (4) ANDRÉS (acute kidney injury) Code(s): N17.9 - ACUTE KIDNEY FAILURE, UNSPECIFIED (5) Anemia Code(s): D64.9 - ANEMIA, UNSPECIFIED (6) CAD (coronary artery disease) Code(s): I25.10 - ATHSCL HEART DISEASE OF [place] CORONARY ARTERY W/O ANG PCTRS Qualifiers: Coronary Disease-Associated Artery/Lesion type: [place] artery (7) CRF (chronic renal failure) Code(s): N18.9 - CHRONIC KIDNEY DISEASE, UNSPECIFIED (8) Diabetes mellitus Code(s): E11.9 - TYPE 2 DIABETES MELLITUS WITHOUT COMPLICATIONS Qualifiers: Diabetes mellitus type: type 2 Diabetes mellitus 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 Diabetes mellitus complication status : with other specified complication Qualified Code(s): E11.69 - Type 2 diabetes mellitus with other specified complication (9) Weakness Code(s): R53.1 - WEAKNESS (10) Hyperlipidemia Code(s): E78.5 - HYPERLIPIDEMIA, UNSPECIFIED Qualifiers: Hyperlipidemia type: pure hypercholesterolemia Qualified Code(s): E78.00 - Pure hypercholesterolemia, unspecified; E78.0 - Pure hypercholesterolemia (11) Hypertension Code(s): I10 - ESSENTIAL (PRIMARY) HYPERTENSION Qualifiers: Hypertension type: unspecified Qualified Code(s): I10 - Essential (primary ) hypertension (12) Hypothyroidism Code(s): E03.9 - HYPOTHYROIDISM, UNSPECIFIED Qualifiers: Hypothyroidism type: unspecified Qualified Code(s): E03.9 - Hypothyroidism , unspecified Assessment/Plan 1. Acute on chronic hypoxemic/hypercapneic respiratory failure post fall 2. Acute on chronic LV diastolic failure 3. CAD - non-obstructive, angina pectoris 4. HTN 5. Hypercholesterolemia 6. Type 2 DM 7. Hypothyroidism 8. Acute on CKD stage 4, prerenal azotemia 9. Hypovolemic hyponatremia and hypokalemia 10. Spinal stenosis and cervical radiculopathy 11. Anemia 12. OSAS suspect 13. Left foot contusion PLAN: 1. Continue Lasix 80 mg QD with monitoring renal function and electrolytes 2. Continue ASA 81 mg QD, Carvedilol 12.5 mg BID, Lipitor 20 mg QHS, Imdur 90 mg QD and Hydralazine 50 mg TID as tolerated 3. Ideally addition of CHRISTINE inhibitor or angiotensin receptor rayo therapy is recommended once renal function stabilizes 4. Emphasized importance diet and medication compliance 5. GI and DVT prophylaxis Further plans are to follow Apollo Kiser MD
[2019-03-16] MEDS ORDERED: INSULIN (NOVOLOG) ASPART 100 UNITS/ML 10ML VIAL ONE (11:58)
--- NOTE | 2019-03-16 13:48 | PN ---
Progress Note, Physician History of Present Illness: Pt without acute distress, on O2 NC. Afebrile. c/o pain at Lt foot hematoma site. No erythema/warmth. - Current Medication List Current Medications: Active Medications Acetaminophen (Tylenol -) 650 mg PO Q4H PRN PRN Reason: PAIN LEVEL 1-5 Last Admin: 03/16/19 01:18 Dose: 650 mg Albuterol Sulfate (Ventolin 0.083% Nebulizer Soln -) 1 amp NEB RQID PRN PRN Reason: SHORT OF BREATH/WHEEZING Allopurinol (Zyloprim -) 100 mg PO DAILY [facility] Last Admin: 03/16/19 09:49 Dose: 100 mg Artificial Tears (Artificial Tears) 1 drop OU BID [facility] Last Admin: 03/16/19 09:49 Dose: 1 drop Aspirin (Ecotrin -) 81 mg PO DAILY [facility] Last Admin: 03/16/19 09:47 Dose: 81 mg Atorvastatin Calcium (Lipitor -) 20 mg PO HS [facility] Last Admin: 03/15/19 21:29 Dose: 20 mg Bisacodyl (Dulcolax -) 5 mg PO HS PRN PRN Reason: CONSTIPATION Carvedilol (Coreg -) 12.5 mg PO BID [facility] Last Admin: 03/16/19 09:46 Dose: 12.5 mg Furosemide (Lasix -) 80 mg PO DAILY@0600 [facility] Last Admin: 03/16/19 05:59 Dose: 80 mg Gabapentin (Neurontin -) 300 mg PO HS [facility] Last Admin: 03/15/19 21:29 Dose: 300 mg Heparin Sodium (Porcine) (Heparin -) 5,000 unit SQ BID [facility] Last Admin: 03/16/19 09:48 Dose: 5,000 unit Ceftriaxone Sodium 1 gm/ (Dextrose) 50 mls @ 100 mls/hr IVPB DAILY [facility]; Protocol Last Admin: 03/16/19 09:45 Dose: 100 mls/hr Insulin Aspart (Novolog Vial Sliding Scale -) 1 vial SQ [facility]; Protocol Last Admin: 03/16/19 12:13 Dose: 4 unit Insulin Detemir (Levemir Vial) 18 units SQ HS [facility] Last Admin: 03/15/19 21:30 Dose: 18 units Isosorbide Mononitrate (Imdur -) 90 mg PO DAILY [facility] Last Admin: 03/16/19 09:47 Dose: 90 mg Latanoprost (Xalatan 0.005% Eye Drops -) 1 drop OU HS [facility] Last Admin: 03/15/19 21:29 Dose: 1 drop Levothyroxine Sodium (Synthroid -) 50 mcg PO AM [facility] Last Admin: 03/16/19 05:59 Dose: 50 mcg Lidocaine (Lidoderm Patch -) 1 patch TP DAILY PRN PRN Reason: LOWER BACK PAIN Miscellaneous (Lidoderm Patch Removal) 1 each MC DAILY@2200 [facility] Last Admin: 03/15/19 21:46 Dose: Not Given Polyethylene Glycol (Miralax (For Daily Use) -) 17 gm PO DAILY [facility] Last Admin: 03/16/19 09:48 Dose: 17 gm Ranitidine HCl (Zantac -) 150 mg PO BID [facility] Last Admin: 03/16/19 09:48 Dose: 150 mg Tamsulosin HCl (Flomax -) 0.4 mg PO DAILY@0830 [facility] Last Admin: 03/16/19 09:47 Dose: 0.4 mg - Objective Vital Signs: Vital Signs Temperature 98.2 F 03/16/19 10:00 Pulse Rate 63 03/16/19 10:00 Respiratory Rate 20 03/16/19 10:00 Blood Pressure 137/56 L 03/16/19 10:00 O2 Sat by Pulse Oximetry (%) 100 03/16/19 07:45 Constitutional: Yes: No Distress, Calm Eyes: Yes: Conjunctiva Clear Cardiovascular: Yes: Regular Rate and Rhythm Respiratory: Yes: Regular, On Nasal O2 Gastrointestinal: Yes: Normal Bowel Sounds, Soft, Abdomen, Obese Genitourinary: Yes: WNL Extremities: Yes: Other (Lt dorsal foot hematoma, no erythema/edema, +tenderness ) Labs: CBC, BMP 03/16/19 05:44 03/16/19 05:44 Problem List - Problems (1) Acute on chronic respiratory failure with hypercapnia Code(s): J96.22 - ACUTE AND CHRONIC RESPIRATORY FAILURE WITH HYPERCAPNIA (2) CHF exacerbation Code(s): I50.9 - HEART FAILURE, UNSPECIFIED Qualifiers: Heart failure type: unspecified Qualified Code(s): I50.9 - Heart failure, unspecified (3) ANDRÉS (acute kidney injury) Code(s): N17.9 - ACUTE KIDNEY FAILURE, UNSPECIFIED (4) CAD (coronary artery disease) Code(s): I25.10 - ATHSCL HEART DISEASE OF [place] CORONARY ARTERY W/O ANG PCTRS Qualifiers: Coronary Disease-Associated Artery/Lesion type: [place] artery (5) CHF (congestive heart failure) Code(s): I50.9 - HEART FAILURE, UNSPECIFIED (6) CRF (chronic renal failure) Code(s): N18.9 - CHRONIC KIDNEY DISEASE, UNSPECIFIED Qualifiers: Chronic kidney disease stage: stage 4 (severe) Qualified Code(s): N18.4 - Chronic kidney disease, stage 4 (severe) (7) Diabetes mellitus Code(s): E11.9 - TYPE 2 DIABETES MELLITUS WITHOUT COMPLICATIONS Qualifiers: Diabetes mellitus type: type 2 Diabetes mellitus superintendent [employer] insulin use: unspecified long-term insulin use status Diabetes mellitus complication status : with other specified complication Qualified Code(s): E11.69 - Type 2 diabetes mellitus with other specified complication (8) UTI (urinary tract infection) Code(s): N39.0 - URINARY TRACT INFECTION, SITE NOT SPECIFIED (9) Weakness Code(s): R53.1 - WEAKNESS (10) Hypertension Code(s): I10 - ESSENTIAL (PRIMARY) HYPERTENSION Qualifiers: Hypertension type: unspecified Qualified Code(s): I10 - Essential (primary ) hypertension (11) Hypothyroidism Code(s): E03.9 - HYPOTHYROIDISM, UNSPECIFIED Qualifiers: Hypothyroidism type: unspecified Qualified Code(s): E03.9 - Hypothyroidism , unspecified Assessment/Plan UTI Acute on Chronic Respiratory failure Acute on Chronic Diastolic Heart Failure Acute on Chronic RF DM CAD HTN Hypothyroidism -- continue antibiotic -- pain control -- continue monitor -- pt afebrile, without distress
--- NOTE | 2019-03-16 14:00 | PN ---
Progress Note (short form) - Note Progress Note: PULMONARY States breathing better. No chest pain. Vital Signs Period Temp Pulse Resp BP Sys/Hernandez Pulse Ox Last 24 Hr 97.5 F-98.6 F 59-75 16-20 121-138/49-56 100-100 Gen: NAD at rest Heart: RRR Lung: decreased breath sounds at the bases Abd: soft, nontender Ext: no edema CBC, BMP 03/16/19 05:44 03/16/19 05:44 Active Medications Acetaminophen (Tylenol -) 650 mg PO Q4H PRN PRN Reason: PAIN LEVEL 1-5 Last Admin: 03/16/19 01:18 Dose: 650 mg Albuterol Sulfate (Ventolin 0.083% Nebulizer Soln -) 1 amp NEB RQID PRN PRN Reason: SHORT OF BREATH/WHEEZING Allopurinol (Zyloprim -) 100 mg PO DAILY [facility] Last Admin: 03/16/19 09:49 Dose: 100 mg Artificial Tears (Artificial Tears) 1 drop OU BID [facility] Last Admin: 03/16/19 09:49 Dose: 1 drop Aspirin (Ecotrin -) 81 mg PO DAILY [facility] Last Admin: 03/16/19 09:47 Dose: 81 mg Atorvastatin Calcium (Lipitor -) 20 mg PO HS [facility] Last Admin: 03/15/19 21:29 Dose: 20 mg Bisacodyl (Dulcolax -) 5 mg PO HS PRN PRN Reason: CONSTIPATION Carvedilol (Coreg -) 12.5 mg PO BID [facility] Last Admin: 03/16/19 09:46 Dose: 12.5 mg Furosemide (Lasix -) 80 mg PO DAILY@0600 [facility] Last Admin: 03/16/19 05:59 Dose: 80 mg Gabapentin (Neurontin -) 300 mg PO HS [facility] Last Admin: 03/15/19 21:29 Dose: 300 mg Heparin Sodium (Porcine) (Heparin -) 5,000 unit SQ BID [facility] Last Admin: 03/16/19 09:48 Dose: 5,000 unit Ceftriaxone Sodium 1 gm/ (Dextrose) 50 mls @ 100 mls/hr IVPB DAILY [facility]; Protocol Last Admin: 03/16/19 09:45 Dose: 100 mls/hr Insulin Aspart (Novolog Vial Sliding Scale -) 1 vial SQ ACHS [facility]; Protocol Last Admin: 03/16/19 12:13 Dose: 4 unit Insulin Detemir (Levemir Vial) 18 units SQ HS [facility] Last Admin: 03/15/19 21:30 Dose: 18 units Isosorbide Mononitrate (Imdur -) 90 mg PO DAILY [facility] Last Admin: 03/16/19 09:47 Dose: 90 mg Latanoprost (Xalatan 0.005% Eye Drops -) 1 drop OU HS [facility] Last Admin: 03/15/19 21:29 Dose: 1 drop Levothyroxine Sodium (Synthroid -) 50 mcg PO AM [facility] Last Admin: 03/16/19 05:59 Dose: 50 mcg Lidocaine (Lidoderm Patch -) 1 patch TP DAILY PRN PRN Reason: LOWER BACK PAIN Miscellaneous (Lidoderm Patch Removal) 1 each MC DAILY@2200 [facility] Last Admin: 03/15/19 21:46 Dose: Not Given Polyethylene Glycol (Miralax (For Daily Use) -) 17 gm PO DAILY [facility] Last Admin: 03/16/19 09:48 Dose: 17 gm Ranitidine HCl (Zantac -) 150 mg PO BID [facility] Last Admin: 03/16/19 09:48 Dose: 150 mg Tamsulosin HCl (Flomax -) 0.4 mg PO DAILY@0830 [facility] Last Admin: 03/16/19 09:47 Dose: 0.4 mg A/P Acute on Chronic Hypoxic and Hypercapneic Respiratory Failure improving Acute on Chronic Diastolic Heart Failure Acute on Chronic Renal Failure CAD HTN DM Hypothyroidism Likely [place] - continue lasix - monitor urine output, creatinine - inhaled bronchodilators - BiPAP at night and PRN during day - o2 to keep Spo2 >90% - outpt PFTs, NPSG - DVT prophylaxis
--- NOTE | 2019-03-16 14:29 | PN ---
Progress Note, Physician History of Present Illness: Pt tolerating O2 supplementation via NC. Pt w/o CP, palpitation, abd pain, diarrhea, nausea, vomiting. Pt with Left foot pain (same area). - Current Medication List Current Medications: Active Medications Acetaminophen (Tylenol -) 650 mg PO Q4H PRN PRN Reason: PAIN LEVEL 1-5 Last Admin: 03/16/19 01:18 Dose: 650 mg Albuterol Sulfate (Ventolin 0.083% Nebulizer Soln -) 1 amp NEB RQID PRN PRN Reason: SHORT OF BREATH/WHEEZING Allopurinol (Zyloprim -) 100 mg PO DAILY [facility] Last Admin: 03/16/19 09:49 Dose: 100 mg Artificial Tears (Artificial Tears) 1 drop OU BID [facility] Last Admin: 03/16/19 09:49 Dose: 1 drop Aspirin (Ecotrin -) 81 mg PO DAILY [facility] Last Admin: 03/16/19 09:47 Dose: 81 mg Atorvastatin Calcium (Lipitor -) 20 mg PO HS [facility] Last Admin: 03/15/19 21:29 Dose: 20 mg Bisacodyl (Dulcolax -) 5 mg PO HS PRN PRN Reason: CONSTIPATION Carvedilol (Coreg -) 12.5 mg PO BID [facility] Last Admin: 03/16/19 09:46 Dose: 12.5 mg Furosemide (Lasix -) 80 mg PO DAILY@0600 [facility] Last Admin: 03/16/19 05:59 Dose: 80 mg Gabapentin (Neurontin -) 300 mg PO HS [facility] Last Admin: 03/15/19 21:29 Dose: 300 mg Heparin Sodium (Porcine) (Heparin -) 5,000 unit SQ BID [facility] Last Admin: 03/16/19 09:48 Dose: 5,000 unit Ceftriaxone Sodium 1 gm/ (Dextrose) 50 mls @ 100 mls/hr IVPB DAILY [facility]; Protocol Last Admin: 03/16/19 09:45 Dose: 100 mls/hr Insulin Aspart (Novolog Vial Sliding Scale -) 1 vial SQ ACHS [facility]; Protocol Last Admin: 03/16/19 12:13 Dose: 4 unit Insulin Detemir (Levemir Vial) 18 units SQ HS [facility] Last Admin: 03/15/19 21:30 Dose: 18 units Isosorbide Mononitrate (Imdur -) 90 mg PO DAILY [facility] Last Admin: 03/16/19 09:47 Dose: 90 mg Latanoprost (Xalatan 0.005% Eye Drops -) 1 drop OU HS [facility] Last Admin: 03/15/19 21:29 Dose: 1 drop Levothyroxine Sodium (Synthroid -) 50 mcg PO AM [facility] Last Admin: 03/16/19 05:59 Dose: 50 mcg Lidocaine (Lidoderm Patch -) 1 patch TP DAILY PRN PRN Reason: LOWER BACK PAIN Miscellaneous (Lidoderm Patch Removal) 1 each MC DAILY@2200 [facility] Last Admin: 03/15/19 21:46 Dose: Not Given Polyethylene Glycol (Miralax (For Daily Use) -) 17 gm PO DAILY [facility] Last Admin: 03/16/19 09:48 Dose: 17 gm Ranitidine HCl (Zantac -) 150 mg PO BID [facility] Last Admin: 03/16/19 09:48 Dose: 150 mg Tamsulosin HCl (Flomax -) 0.4 mg PO DAILY@0830 [facility] Last Admin: 03/16/19 09:47 Dose: 0.4 mg - Objective Vital Signs: Vital Signs Temperature 98.2 F 03/16/19 10:00 Pulse Rate 63 03/16/19 10:00 Respiratory Rate 20 03/16/19 10:00 Blood Pressure 137/56 L 03/16/19 10:00 O2 Sat by Pulse Oximetry (%) 100 03/16/19 07:45 Constitutional: Yes: No Distress, Calm Cardiovascular: Yes: Regular Rate and Rhythm, S1, S2 Respiratory: Yes: Regular, CTA Bilaterally, Other Gastrointestinal: Yes: Normal Bowel Sounds, Soft, Abdomen, Obese, Tenderness Edema: No Neurological: Yes: Alert, Oriented Labs: CBC, BMP 03/16/19 05:44 03/16/19 05:44 Problem List - Problems (1) Acute on chronic respiratory failure with hypoxia and hypercapnia Code(s): J96.21 - ACUTE AND CHRONIC RESPIRATORY FAILURE WITH HYPOXIA; J96.22 - ACUTE AND CHRONIC RESPIRATORY FAILURE WITH HYPERCAPNIA (2) ANDRÉS (acute kidney injury) Code(s): N17.9 - ACUTE KIDNEY FAILURE, UNSPECIFIED (3) CRF (chronic renal failure) Code(s): N18.9 - CHRONIC KIDNEY DISEASE, UNSPECIFIED Qualifiers: Chronic kidney disease stage: stage 4 (severe) Qualified Code(s): N18.4 - Chronic kidney disease, stage 4 (severe) (4) Hyperkalemia Code(s): E87.5 - HYPERKALEMIA (5) Fall Code(s): W19.XXXA - UNSPECIFIED FALL, INITIAL ENCOUNTER Qualifiers: Encounter type: initial encounter Qualified Code(s): W19.XXXA - Unspecified fall, initial encounter (6) CAD (coronary artery disease) Code(s): I25.10 - ATHSCL HEART DISEASE OF [place] CORONARY ARTERY W/O ANG PCTRS Qualifiers: Coronary Disease-Associated Artery/Lesion type: [place] artery [place] vs. transplanted heart: [place] heart Associated angina: with unspecified angina Qualified Code(s): I25.119 - Atherosclerotic heart disease of [place] coronary artery with unspecified angina pectoris (7) Diabetes mellitus Code(s): E11.9 - TYPE 2 DIABETES MELLITUS WITHOUT COMPLICATIONS Qualifiers: Diabetes mellitus type: type 2 Diabetes mellitus intermediate insulin use: unspecified intermediate insulin use status Diabetes mellitus complication status : with other specified complication Qualified Code(s): E11.69 - Type 2 diabetes mellitus with other specified complication (8) Foot trauma Code(s): S99.929A - UNSPECIFIED INJURY OF UNSPECIFIED FOOT, INITIAL ENCOUNTER (9) Elevated liver enzymes Code(s): R74.8 - ABNORMAL LEVELS OF OTHER SERUM ENZYMES (10) UTI (urinary tract infection) Code(s): N39.0 - URINARY TRACT INFECTION, SITE NOT SPECIFIED Qualifiers: Urinary tract infection type: site unspecified Hematuria presence: without hematuria Qualified Code(s): N39.0 - Urinary tract infection, site not specified Assessment/Plan Admitted to ICU, transferred to 4W On BIPAP at night and PRN. Now on Cefrtriaxone for UTI. Lasix was changed to PO daily. CCM/ Pulm, Cardio, Neuro, Renal, ID, Latty consults are appreciated. DVT proph AM labs OOBTC with assistance; to use otho shoes. We discussed Tylenol with codeine for left foot pain control; pt and wants do not want pt to try it. Pt's at bedside. Pt's care was d/w pt's nurse.
[2019-03-16 16:05] VITALS: BMI 29.0
--- NOTE | 2019-03-16 17:35 | PN ---
Progress Note (short form) - Note Progress Note: covering dr page presented from home with a fall and diarrhea. 1. CKD stage 4 baseline creat 2 2. Fall 3. Diarrhea r/o infectious etiology 4. CHF with diastolic dysfunction 5. Anemia 6. Hypertension DM 2 Active Medications Acetaminophen (Tylenol -) 650 mg PO Q4H PRN PRN Reason: PAIN LEVEL 1-5 Last Admin: 03/16/19 15:41 Dose: 650 mg Albuterol Sulfate (Ventolin 0.083% Nebulizer Soln -) 1 amp NEB RQID PRN PRN Reason: SHORT OF BREATH/WHEEZING Allopurinol (Zyloprim -) 100 mg PO DAILY [facility] Last Admin: 03/16/19 09:49 Dose: 100 mg Artificial Tears (Artificial Tears) 1 drop OU BID [facility] Last Admin: 03/16/19 09:49 Dose: 1 drop Aspirin (Ecotrin -) 81 mg PO DAILY [facility] Last Admin: 03/16/19 09:47 Dose: 81 mg Atorvastatin Calcium (Lipitor -) 20 mg PO HS [facility] Last Admin: 03/15/19 21:29 Dose: 20 mg Bisacodyl (Dulcolax -) 5 mg PO HS PRN PRN Reason: CONSTIPATION Carvedilol (Coreg -) 12.5 mg PO BID [facility] Last Admin: 03/16/19 09:46 Dose: 12.5 mg Furosemide (Lasix -) 80 mg PO DAILY@0600 [facility] Last Admin: 03/16/19 05:59 Dose: 80 mg Gabapentin (Neurontin -) 300 mg PO HS [facility] Last Admin: 03/15/19 21:29 Dose: 300 mg Heparin Sodium (Porcine) (Heparin -) 5,000 unit SQ BID [facility] Last Admin: 03/16/19 09:48 Dose: 5,000 unit Ceftriaxone Sodium 1 gm/ (Dextrose) 50 mls @ 100 mls/hr IVPB DAILY [facility]; Protocol Last Admin: 03/16/19 09:45 Dose: 100 mls/hr Insulin Aspart (Novolog Vial Sliding Scale -) 1 vial SQ ACHS [facility]; Protocol Last Admin: 03/16/19 12:13 Dose: 4 unit Insulin Detemir (Levemir Vial) 18 units SQ HS [facility] Last Admin: 03/15/19 21:30 Dose: 18 units Isosorbide Mononitrate (Imdur -) 90 mg PO DAILY [facility] Last Admin: 03/16/19 09:47 Dose: 90 mg Latanoprost (Xalatan 0.005% Eye Drops -) 1 drop OU HS [facility] Last Admin: 03/15/19 21:29 Dose: 1 drop Levothyroxine Sodium (Synthroid -) 50 mcg PO AM [facility] Last Admin: 03/16/19 05:59 Dose: 50 mcg Lidocaine (Lidoderm Patch -) 1 patch TP DAILY PRN PRN Reason: LOWER BACK PAIN Miscellaneous (Lidoderm Patch Removal) 1 each MC DAILY@2200 [facility] Last Admin: 03/15/19 21:46 Dose: Not Given Polyethylene Glycol (Miralax (For Daily Use) -) 17 gm PO DAILY [facility] Last Admin: 03/16/19 09:48 Dose: 17 gm Ranitidine HCl (Zantac -) 150 mg PO BID [facility] Last Admin: 03/16/19 09:48 Dose: 150 mg Tamsulosin HCl (Flomax -) 0.4 mg PO DAILY@0830 [facility] Last Admin: 03/16/19 09:47 Dose: 0.4 mg Last Vital Signs Temp Pulse Resp BP Pulse Ox 98.4 F 59 L 17 130/54 L 100 03/16/19 14:10 03/16/19 14:10 03/16/19 14:10 03/16/19 14:10 03/16/19 07:45 CBC, BMP 03/16/19 05:44 03/16/19 05:44 IMP renal function stable Plan- continue same fluid mgmt follow lbs
[2019-03-16] MEDS: LIDOCAINE PATCH REMOVAL MC SCH (21:56)
[2019-03-16] MEDS: INSULIN (LEVEMIR) 100 UNITS/ML UNITS SQ SCH (21:56)
[2019-03-16] MEDS: ATORVASTATIN CA 20 MG TABLET (FP) PO SCH (21:56)
[2019-03-16] MEDS: GABAPENTIN 300 MG CAPSULE (FP) PO SCH (21:56)
[2019-03-16] MEDS: LATANOPROST 0.005% OPHTH SOLN 2.5ML BOTTLE OU SCH (21:58)
[2019-03-17] MEDS: INSULIN SLIDING SCALE (NOVOLOG) 1 VIAL SQ SCH ×4 (06:25→21:44)
[2019-03-17] MEDS: FUROSEMIDE 40 MG TABLET (FP) PO SCH (06:25)
[2019-03-17] MEDS: LEVOTHYROXINE NA 50 MCG TABLET (FP) PO SCH (06:25)
[2019-03-17] MEDS ORDERED: PT OWN MED DRAWER 7, Y5N ONE (06:49)
[2019-03-17 07:23] LABS: HEMATOCRIT 29.8 % (32.4-45.2); HEMOGLOBIN 9.7 GM/dL (10.7-15.3); MCH 28.7 pg (25.7-33.7); MCHC 32.6 g/dl (32.0-36.0); MEAN CELL VOLUME 88.1 fl (80-96); MEAN PLT VOLUME 9.7 fl (7.5-11.1); PLATELET COUNT 216 K/MM3 (134-434); RBC 3.38 M/mm3 (3.60-5.2); RDW 17.9 % (11.6-15.6); WHITE BLOOD COUNT 9.9 K/mm3 (4.0-10.0)
[2019-03-17 07:59] LABS: BLOOD UREA NITROGEN 70.1 mg/dL (7-18); CALCIUM 10.4 mg/dL (8.5-10.1); CREATININE 1.5 mg/dL (0.55-1.3); POTASSIUM 4.4 mmol/L (3.5-5.1)
[2019-03-17] MEDS ORDERED: cefTRIAXone SODIUM 1 GM VIAL ONE (08:21)
[2019-03-17] MEDS ORDERED: DEXTROSE 5%-WATER - 50 ML IVPB ONE (08:21)
[2019-03-17] MEDS: LIDOCAINE PATCH REMOVAL MC SCH ×2 (08:32→21:46)
--- NOTE | 2019-03-17 08:47 | PN ---
Progress Note, Physician Chief Complaint: Events noted Not in distress History of Present Illness: Patient was seen and examined. Awake. Chart was reviewed Denies chest pain, SOB or palpitations - Current Medication List Current Medications: Active Medications Acetaminophen (Tylenol -) 650 mg PO Q4H PRN PRN Reason: PAIN LEVEL 1-5 Last Admin: 03/16/19 21:54 Dose: 650 mg Albuterol Sulfate (Ventolin 0.083% Nebulizer Soln -) 1 amp NEB RQID PRN PRN Reason: SHORT OF BREATH/WHEEZING Last Admin: 03/16/19 20:10 Dose: 1 amp Allopurinol (Zyloprim -) 100 mg PO DAILY [facility] Last Admin: 03/16/19 09:49 Dose: 100 mg Artificial Tears (Artificial Tears) 1 drop OU BID [facility] Last Admin: 03/16/19 21:57 Dose: 1 drop Aspirin (Ecotrin -) 81 mg PO DAILY [facility] Last Admin: 03/16/19 09:47 Dose: 81 mg Atorvastatin Calcium (Lipitor -) 20 mg PO HS [facility] Last Admin: 03/16/19 21:56 Dose: 20 mg Bisacodyl (Dulcolax -) 5 mg PO HS PRN PRN Reason: CONSTIPATION Carvedilol (Coreg -) 12.5 mg PO BID [facility] Last Admin: 03/16/19 21:55 Dose: 12.5 mg Furosemide (Lasix -) 80 mg PO DAILY@0600 [facility] Last Admin: 03/17/19 06:25 Dose: 80 mg Gabapentin (Neurontin -) 300 mg PO HS [facility] Last Admin: 03/16/19 21:56 Dose: 300 mg Heparin Sodium (Porcine) (Heparin -) 5,000 unit SQ BID [facility] Last Admin: 03/16/19 21:56 Dose: 5,000 unit Ceftriaxone Sodium 1 gm/ (Dextrose) 50 mls @ 100 mls/hr IVPB DAILY [facility]; Protocol Last Admin: 03/16/19 09:45 Dose: 100 mls/hr Insulin Aspart (Novolog Vial Sliding Scale -) 1 vial SQ ACHS [facility]; Protocol Last Admin: 03/17/19 06:25 Dose: Not Given Insulin Detemir (Levemir Vial) 18 units SQ HS [facility] Last Admin: 03/16/19 21:56 Dose: 18 units Isosorbide Mononitrate (Imdur -) 90 mg PO DAILY [facility] Last Admin: 03/16/19 09:47 Dose: 90 mg Latanoprost (Xalatan 0.005% Eye Drops -) 1 drop OU HS [facility] Last Admin: 03/16/19 21:58 Dose: 1 drop Levothyroxine Sodium (Synthroid -) 50 mcg PO AM [facility] Last Admin: 03/17/19 06:25 Dose: 50 mcg Lidocaine (Lidoderm Patch -) 1 patch TP DAILY PRN PRN Reason: LOWER BACK PAIN Miscellaneous (Lidoderm Patch Removal) 1 each MC DAILY@2200 [facility] Last Admin: 03/17/19 08:32 Dose: 1 each Polyethylene Glycol (Miralax (For Daily Use) -) 17 gm PO DAILY [facility] Last Admin: 03/16/19 09:48 Dose: 17 gm Ranitidine HCl (Zantac -) 150 mg PO BID [facility] Last Admin: 03/16/19 21:57 Dose: 150 mg Tamsulosin HCl (Flomax -) 0.4 mg PO DAILY@0830 [facility] Last Admin: 03/16/19 09:47 Dose: 0.4 mg - Objective Vital Signs: Vital Signs Temperature 97.5 F L 03/17/19 06:00 Pulse Rate 87 03/17/19 08:23 Respiratory Rate 20 03/17/19 06:00 Blood Pressure 141/50 L 03/17/19 06:00 O2 Sat by Pulse Oximetry (%) 97 03/17/19 08:23 Eyes: Yes: PERRL HENT: Yes: Atraumatic Neck: Yes: Supple Cardiovascular: Yes: Regular Rate and Rhythm, S1, S2 Respiratory: Yes: Diminished Gastrointestinal: Yes: Normal Bowel Sounds, Soft. No: Tenderness Edema: No Additional Findings/Remarks: - Review of Systems Constitutional: denies: Chills, Fever Cardiovascular: denies Chest Pain. denies: Palpitations, Shortness of Breath Respiratory: denies: Cough, Hemoptysis, Orthopnea, PND, SOB, SOB on Exertion Gastrointestinal: denies: Abdominal Pain, Constipation, Diarrhea, Melena, Nausea , Rectal Bleeding, Vomiting Neurological: denies Dizziness, Headache. denies: Seizure, Syncope Labs: CBC, BMP 03/17/19 05:45 03/17/19 06:45 Problem List - Problems (1) Acute on chronic respiratory failure with hypercapnia Code(s): J96.22 - ACUTE AND CHRONIC RESPIRATORY FAILURE WITH HYPERCAPNIA (2) Acute on chronic respiratory failure with hypoxia and hypercapnia Code(s): J96.21 - ACUTE AND CHRONIC RESPIRATORY FAILURE WITH HYPOXIA; J96.22 - ACUTE AND CHRONIC RESPIRATORY FAILURE WITH HYPERCAPNIA (3) CHF exacerbation Code(s): I50.9 - HEART FAILURE, UNSPECIFIED Qualifiers: Heart failure type: unspecified Qualified Code(s): I50.9 - Heart failure, unspecified (4) ANDRÉS (acute kidney injury) Code(s): N17.9 - ACUTE KIDNEY FAILURE, UNSPECIFIED (5) Anemia Code(s): D64.9 - ANEMIA, UNSPECIFIED (6) CAD (coronary artery disease) Code(s): I25.10 - ATHSCL HEART DISEASE OF [place] CORONARY ARTERY W/O ANG PCTRS Qualifiers: Coronary Disease-Associated Artery/Lesion type: [place] artery (7) CRF (chronic renal failure) Code(s): N18.9 - CHRONIC KIDNEY DISEASE, UNSPECIFIED (8) Diabetes mellitus Code(s): E11.9 - TYPE 2 DIABETES MELLITUS WITHOUT COMPLICATIONS Qualifiers: Diabetes mellitus type: type 2 Diabetes mellitus superintendent container terminal insulin use: unspecified superintendent container terminal insulin use status Diabetes mellitus complication status : with other specified complication Qualified Code(s): E11.69 - Type 2 diabetes mellitus with other specified complication (9) Weakness Code(s): R53.1 - WEAKNESS (10) Hyperlipidemia Code(s): E78.5 - HYPERLIPIDEMIA, UNSPECIFIED Qualifiers: Hyperlipidemia type: pure hypercholesterolemia Qualified Code(s): E78.00 - Pure hypercholesterolemia, unspecified; E78.0 - Pure hypercholesterolemia (11) Hypertension Code(s): I10 - ESSENTIAL (PRIMARY) HYPERTENSION Qualifiers: Hypertension type: unspecified Qualified Code(s): I10 - Essential (primary ) hypertension (12) Hypothyroidism Code(s): E03.9 - HYPOTHYROIDISM, UNSPECIFIED Qualifiers: Hypothyroidism type: unspecified Qualified Code(s): E03.9 - Hypothyroidism , unspecified Assessment/Plan 1. Acute on chronic hypoxemic/hypercapneic respiratory failure post fall 2. Acute on chronic LV diastolic failure 3. CAD - non-obstructive, angina pectoris 4. HTN 5. Hypercholesterolemia 6. Type 2 DM 7. Hypothyroidism 8. Acute on CKD stage 4, prerenal azotemia 9. Hypovolemic hyponatremia and hypokalemia 10. Spinal stenosis and cervical radiculopathy 11. Anemia 12. OSAS suspect 13. Left foot contusion PLAN: 1. Continue Lasix 80 mg QD with monitoring renal function and electrolytes 2. Continue ASA 81 mg QD, Carvedilol 12.5 mg BID, Lipitor 20 mg QHS, Imdur 90 mg QD and Hydralazine 50 mg TID as tolerated 3. Ideally addition of CHRISTINE inhibitor or angiotensin receptor rayo therapy is recommended once renal function stabilizes 4. GI and DVT prophylaxis Further plans are to follow Apollo Kiser MD
[2019-03-17] MEDS: ASPIRIN COATED 81 MG TABLET.EC PO SCH (10:50)
[2019-03-17] MEDS: TAMSULOSIN HCL 0.4 MG CAP PO SCH (10:50)
[2019-03-17] MEDS: RANITIDINE HCL 150 MG TABLET (FP) PO SCH ×2 (10:50→21:44)
[2019-03-17] MEDS: ALLOPURINOL 100 MG TABLET (FP) PO SCH (10:50)
[2019-03-17] MEDS: CARVEDILOL 12.5 MG TABLET (FP) PO SCH ×2 (10:50→21:44)
[2019-03-17] MEDS: ISOSORBIDE MONONITRATE 30 MG TAB.SR.24H (FP) PO SCH (10:50)
[2019-03-17] MEDS: ARTIFICIAL TEARS (POLYVINYL ALCOHOL) OPTH DROPS OU SCH ×2 (10:50→21:45)
[2019-03-17] MEDS: CEFTRIAXONE 1 GM in DEXTROSE 5%-WATER - 50 ML IVPB SCH (10:51)
[2019-03-17] MEDS: POLYETHYLENE GLYCOL 3350 119 GM BTL PO SCH (10:51)
[2019-03-17] MEDS: HEPARIN NA (PORCINE) 5,000 UNITS/ML 1ML VIAL SQ SCH ×2 (10:51→21:46)
--- NOTE | 2019-03-17 12:57 | PN ---
Progress Note (short form) - Note Progress Note: PULMONARY States breathing better. No chest pain. No cough or wheezing. Vital Signs Period Temp Pulse Resp BP Sys/Hernandez Pulse Ox Last 24 Hr 97.5 F-98.4 F 59-87 17-20 127-141/46-54 97-98 Gen: NAD at rest Heart: RRR Lung: decreased breath sounds at the bases Abd: soft, nontender Ext: no edema CBC, BMP 03/17/19 05:45 03/17/19 06:45 Active Medications Acetaminophen (Tylenol -) 650 mg PO Q4H PRN PRN Reason: PAIN LEVEL 1-5 Last Admin: 03/16/19 21:54 Dose: 650 mg Albuterol Sulfate (Ventolin 0.083% Nebulizer Soln -) 1 amp NEB RQID PRN PRN Reason: SHORT OF BREATH/WHEEZING Last Admin: 03/16/19 20:10 Dose: 1 amp Allopurinol (Zyloprim -) 100 mg PO DAILY [facility] Last Admin: 03/17/19 10:50 Dose: 100 mg Artificial Tears (Artificial Tears) 1 drop OU BID [facility] Last Admin: 03/17/19 10:50 Dose: 1 drop Aspirin (Ecotrin -) 81 mg PO DAILY [facility] Last Admin: 03/17/19 10:50 Dose: 81 mg Atorvastatin Calcium (Lipitor -) 20 mg PO HS [facility] Last Admin: 03/16/19 21:56 Dose: 20 mg Bisacodyl (Dulcolax -) 5 mg PO HS PRN PRN Reason: CONSTIPATION Carvedilol (Coreg -) 12.5 mg PO BID [facility] Last Admin: 03/17/19 10:50 Dose: 12.5 mg Furosemide (Lasix -) 80 mg PO DAILY@0600 [facility] Last Admin: 03/17/19 06:25 Dose: 80 mg Gabapentin (Neurontin -) 300 mg PO HS [facility] Last Admin: 03/16/19 21:56 Dose: 300 mg Heparin Sodium (Porcine) (Heparin -) 5,000 unit SQ BID [facility] Last Admin: 03/17/19 10:51 Dose: 5,000 unit Ceftriaxone Sodium 1 gm/ (Dextrose) 50 mls @ 100 mls/hr IVPB DAILY [facility]; Protocol Last Admin: 03/17/19 10:51 Dose: 100 mls/hr Insulin Aspart (Novolog Vial Sliding Scale -) 1 vial SQ ACHS [facility]; Protocol Last Admin: 03/17/19 12:37 Dose: 4 unit Insulin Detemir (Levemir Vial) 18 units SQ HS [facility] Last Admin: 03/16/19 21:56 Dose: 18 units Isosorbide Mononitrate (Imdur -) 90 mg PO DAILY [facility] Last Admin: 03/17/19 10:50 Dose: 90 mg Latanoprost (Xalatan 0.005% Eye Drops -) 1 drop OU HS [facility] Last Admin: 03/16/19 21:58 Dose: 1 drop Levothyroxine Sodium (Synthroid -) 50 mcg PO AM [facility] Last Admin: 03/17/19 06:25 Dose: 50 mcg Lidocaine (Lidoderm Patch -) 1 patch TP DAILY PRN PRN Reason: LOWER BACK PAIN Miscellaneous (Lidoderm Patch Removal) 1 each MC DAILY@2200 [facility] Last Admin: 03/17/19 08:32 Dose: 1 each Polyethylene Glycol (Miralax (For Daily Use) -) 17 gm PO DAILY [facility] Last Admin: 03/17/19 10:51 Dose: 17 gm Ranitidine HCl (Zantac -) 150 mg PO BID [facility] Last Admin: 03/17/19 10:50 Dose: 150 mg Tamsulosin HCl (Flomax -) 0.4 mg PO DAILY@0830 [facility] Last Admin: 03/17/19 10:50 Dose: 0.4 mg A/P Acute on Chronic Hypoxic and Hypercapneic Respiratory Failure improving Acute on Chronic Diastolic Heart Failure Acute on Chronic Renal Failure CAD HTN DM Hypothyroidism Likely [place] - continue lasix - monitor urine output, creatinine - inhaled bronchodilators - BiPAP at night and PRN during day - o2 to keep Spo2 >90% - outpt PFTs, NPSG - DVT prophylaxis
--- NOTE | 2019-03-17 14:45 | PN ---
Progress Note, Physician Chief Complaint: in bed feels better no pain no diarrhea still gen weak labs better urinates but feels pelvic pressure - Current Medication List Current Medications: Active Medications Acetaminophen (Tylenol -) 650 mg PO Q4H PRN PRN Reason: PAIN LEVEL 1-5 Last Admin: 03/16/19 21:54 Dose: 650 mg Albuterol Sulfate (Ventolin 0.083% Nebulizer Soln -) 1 amp NEB RQID PRN PRN Reason: SHORT OF BREATH/WHEEZING Last Admin: 03/16/19 20:10 Dose: 1 amp Allopurinol (Zyloprim -) 100 mg PO DAILY [facility] Last Admin: 03/17/19 10:50 Dose: 100 mg Artificial Tears (Artificial Tears) 1 drop OU BID [facility] Last Admin: 03/17/19 10:50 Dose: 1 drop Aspirin (Ecotrin -) 81 mg PO DAILY [facility] Last Admin: 03/17/19 10:50 Dose: 81 mg Atorvastatin Calcium (Lipitor -) 20 mg PO HS [facility] Last Admin: 03/16/19 21:56 Dose: 20 mg Bisacodyl (Dulcolax -) 5 mg PO HS PRN PRN Reason: CONSTIPATION Carvedilol (Coreg -) 12.5 mg PO BID [facility] Last Admin: 03/17/19 10:50 Dose: 12.5 mg Furosemide (Lasix -) 80 mg PO DAILY@0600 [facility] Last Admin: 03/17/19 06:25 Dose: 80 mg Gabapentin (Neurontin -) 300 mg PO HS [facility] Last Admin: 03/16/19 21:56 Dose: 300 mg Heparin Sodium (Porcine) (Heparin -) 5,000 unit SQ BID [facility] Last Admin: 03/17/19 10:51 Dose: 5,000 unit Ceftriaxone Sodium 1 gm/ (Dextrose) 50 mls @ 100 mls/hr IVPB DAILY [facility]; Protocol Last Admin: 03/17/19 10:51 Dose: 100 mls/hr Insulin Aspart (Novolog Vial Sliding Scale -) 1 vial SQ [facility]; Protocol Last Admin: 03/17/19 12:37 Dose: 4 unit Insulin Detemir (Levemir Vial) 18 units SQ HS [facility] Last Admin: 03/16/19 21:56 Dose: 18 units Isosorbide Mononitrate (Imdur -) 90 mg PO DAILY [facility] Last Admin: 03/17/19 10:50 Dose: 90 mg Latanoprost (Xalatan 0.005% Eye Drops -) 1 drop OU HS [facility] Last Admin: 03/16/19 21:58 Dose: 1 drop Levothyroxine Sodium (Synthroid -) 50 mcg PO AM [facility] Last Admin: 03/17/19 06:25 Dose: 50 mcg Lidocaine (Lidoderm Patch -) 1 patch TP DAILY PRN PRN Reason: LOWER BACK PAIN Miscellaneous (Lidoderm Patch Removal) 1 each MC DAILY@2200 [facility] Last Admin: 03/17/19 08:32 Dose: 1 each Polyethylene Glycol (Miralax (For Daily Use) -) 17 gm PO DAILY [facility] Last Admin: 03/17/19 10:51 Dose: 17 gm Ranitidine HCl (Zantac -) 150 mg PO BID [facility] Last Admin: 03/17/19 10:50 Dose: 150 mg Tamsulosin HCl (Flomax -) 0.4 mg PO DAILY@0830 [facility] Last Admin: 03/17/19 10:50 Dose: 0.4 mg - Objective Vital Signs: Vital Signs Temperature 98 F 03/17/19 10:00 Pulse Rate 52 L 03/17/19 10:00 Respiratory Rate 20 03/17/19 10:00 Blood Pressure 144/60 03/17/19 10:00 O2 Sat by Pulse Oximetry (%) 97 03/17/19 10:00 Constitutional: Yes: No Distress, Calm Eyes: Yes: Conjunctiva Clear HENT: Yes: Atraumatic Neck: Yes: Supple Cardiovascular: Yes: Regular Rate and Rhythm Respiratory: Yes: CTA Bilaterally Gastrointestinal: Yes: Soft. No: Tenderness Genitourinary: No: [place] Present, Hematuria Musculoskeletal: No: Joint Stiffness, Joint Swelling Extremities: No: Cold, Cool Edema: No Integumentary: No: Rash Neurological: Yes: WNL, Alert, Oriented. No: Lethargy ...Motor Strength: WNL Psychiatric: Yes: WNL, Alert, Oriented. No: Agitated, Suicidal Ideation Labs: CBC, BMP 03/17/19 05:45 03/17/19 06:45 - ....Imaging Other: Report Reviewed Assessment/Plan Pt presents to the ED complaining of a two day history of worsening abdominal distention, shortness of breath and diarrhea. History of CHF, chronically on home o2, increasingly lethargic, decreased po intake. s/p fall x 2 at home SOB CHF / COPD exac; pulm and cardio f/u; prn BIPAP / telemetry monitoring ARF/CRF; uncontrolled DM, rabdomyolisis, prerenal azotemia, s/p lasix lower dose f/u labs urinary retention had [place] in 24h, seen by BRITTANY, on flomax; [place] out now, watch UO closely - chech bladder scan now, if still retaining to have [place] reinserted and OOB, BRITTANY f/u L foot pain hematoma ortho f/u - PT rehab, support glynn falls decubs DVT pfx prognosis guarded d/w pt turn in bed q1h to prevent decubs; do not get OOB alone to prevent falls d.w staff d.w daughter Aicha - pt will need PT SNF
--- NOTE | 2019-03-17 15:01 | PN ---
Progress Note, Physician History of Present Illness: Pt is alert, afebrile.Denies abd pain/n/v/d, CP, SOB, dysuria. Family at bedside. - Current Medication List Current Medications: Active Medications Acetaminophen (Tylenol -) 650 mg PO Q4H PRN PRN Reason: PAIN LEVEL 1-5 Last Admin: 03/16/19 21:54 Dose: 650 mg Albuterol Sulfate (Ventolin 0.083% Nebulizer Soln -) 1 amp NEB RQID PRN PRN Reason: SHORT OF BREATH/WHEEZING Last Admin: 03/16/19 20:10 Dose: 1 amp Allopurinol (Zyloprim -) 100 mg PO DAILY [facility] Last Admin: 03/17/19 10:50 Dose: 100 mg Artificial Tears (Artificial Tears) 1 drop OU BID [facility] Last Admin: 03/17/19 10:50 Dose: 1 drop Aspirin (Ecotrin -) 81 mg PO DAILY [facility] Last Admin: 03/17/19 10:50 Dose: 81 mg Atorvastatin Calcium (Lipitor -) 20 mg PO HS [facility] Last Admin: 03/16/19 21:56 Dose: 20 mg Bisacodyl (Dulcolax -) 5 mg PO HS PRN PRN Reason: CONSTIPATION Carvedilol (Coreg -) 12.5 mg PO BID [facility] Last Admin: 03/17/19 10:50 Dose: 12.5 mg Furosemide (Lasix -) 80 mg PO DAILY@0600 [facility] Last Admin: 03/17/19 06:25 Dose: 80 mg Gabapentin (Neurontin -) 300 mg PO HS [facility] Last Admin: 03/16/19 21:56 Dose: 300 mg Heparin Sodium (Porcine) (Heparin -) 5,000 unit SQ BID [facility] Last Admin: 03/17/19 10:51 Dose: 5,000 unit Ceftriaxone Sodium 1 gm/ (Dextrose) 50 mls @ 100 mls/hr IVPB DAILY [facility]; Protocol Last Admin: 03/17/19 10:51 Dose: 100 mls/hr Insulin Aspart (Novolog Vial Sliding Scale -) 1 vial SQ ACHS [facility]; Protocol Last Admin: 03/17/19 12:37 Dose: 4 unit Insulin Detemir (Levemir Vial) 18 units SQ HS [facility] Last Admin: 03/16/19 21:56 Dose: 18 units Isosorbide Mononitrate (Imdur -) 90 mg PO DAILY [facility] Last Admin: 03/17/19 10:50 Dose: 90 mg Latanoprost (Xalatan 0.005% Eye Drops -) 1 drop OU HS [facility] Last Admin: 03/16/19 21:58 Dose: 1 drop Levothyroxine Sodium (Synthroid -) 50 mcg PO AM [facility] Last Admin: 03/17/19 06:25 Dose: 50 mcg Lidocaine (Lidoderm Patch -) 1 patch TP DAILY PRN PRN Reason: LOWER BACK PAIN Miscellaneous (Lidoderm Patch Removal) 1 each MC DAILY@2200 [facility] Last Admin: 03/17/19 08:32 Dose: 1 each Polyethylene Glycol (Miralax (For Daily Use) -) 17 gm PO DAILY [facility] Last Admin: 03/17/19 10:51 Dose: 17 gm Ranitidine HCl (Zantac -) 150 mg PO BID [facility] Last Admin: 03/17/19 10:50 Dose: 150 mg Tamsulosin HCl (Flomax -) 0.4 mg PO DAILY@0830 [facility] Last Admin: 03/17/19 10:50 Dose: 0.4 mg - Objective Vital Signs: Vital Signs Temperature 98 F 03/17/19 10:00 Pulse Rate 52 L 03/17/19 10:00 Respiratory Rate 20 03/17/19 10:00 Blood Pressure 144/60 03/17/19 10:00 O2 Sat by Pulse Oximetry (%) 97 03/17/19 10:00 Constitutional: Yes: No Distress, Calm Cardiovascular: Yes: Regular Rate and Rhythm Respiratory: Yes: On Nasal O2 Gastrointestinal: Yes: Normal Bowel Sounds, Soft, Abdomen, Obese Genitourinary: Yes: WNL Extremities: Yes: Other (Lt foot hematoma, less edema/erythema) Neurological: Yes: Alert, Oriented Labs: CBC, BMP 03/17/19 05:45 03/17/19 06:45 Problem List - Problems (1) Acute on chronic respiratory failure with hypercapnia Code(s): J96.22 - ACUTE AND CHRONIC RESPIRATORY FAILURE WITH HYPERCAPNIA (2) CHF exacerbation Code(s): I50.9 - HEART FAILURE, UNSPECIFIED Qualifiers: Heart failure type: unspecified Qualified Code(s): I50.9 - Heart failure, unspecified (3) ANDRÉS (acute kidney injury) Code(s): N17.9 - ACUTE KIDNEY FAILURE, UNSPECIFIED (4) CAD (coronary artery disease) Code(s): I25.10 - ATHSCL HEART DISEASE OF [place] CORONARY ARTERY W/O ANG PCTRS Qualifiers: Coronary Disease-Associated Artery/Lesion type: [place] artery (5) CHF (congestive heart failure) Code(s): I50.9 - HEART FAILURE, UNSPECIFIED (6) CRF (chronic renal failure) Code(s): N18.9 - CHRONIC KIDNEY DISEASE, UNSPECIFIED Qualifiers: Chronic kidney disease stage: stage 4 (severe) Qualified Code(s): N18.4 - Chronic kidney disease, stage 4 (severe) (7) Diabetes mellitus Code(s): E11.9 - TYPE 2 DIABETES MELLITUS WITHOUT COMPLICATIONS Qualifiers: Diabetes mellitus type: type 2 Diabetes mellitus fci 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: 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 Diabetes mellitus complication status : with other specified complication Qualified Code(s): E11.69 - Type 2 diabetes mellitus with other specified complication (8) UTI (urinary tract infection) Code(s): N39.0 - URINARY TRACT INFECTION, SITE NOT SPECIFIED (9) Weakness Code(s): R53.1 - WEAKNESS (10) Hypertension Code(s): I10 - ESSENTIAL (PRIMARY) HYPERTENSION Qualifiers: Hypertension type: unspecified Qualified Code(s): I10 - Essential (primary ) hypertension (11) Hypothyroidism Code(s): E03.9 - HYPOTHYROIDISM, UNSPECIFIED Qualifiers: Hypothyroidism type: unspecified Qualified Code(s): E03.9 - Hypothyroidism , unspecified Assessment/Plan UTI Acute on Chronic Respiratory failure Acute on Chronic Diastolic Heart Failure Acute on Chronic RF DM CAD HTN Hypothyroidism -- continue antibiotics -- pt afebrile, without distress
--- NOTE | 2019-03-17 20:47 | PN ---
Progress Note (short form) - Note Progress Note: covering dr page presented from home with a fall and diarrhea. 1. CKD stage 4 baseline creat 2 2. Fall 3. Diarrhea r/o infectious etiology 4. CHF with diastolic dysfunction 5. Anemia 6. Hypertension DM 2 Current Medications Acetaminophen (Tylenol -) 650 mg PO Q4H PRN PRN Reason: PAIN LEVEL 1-5 Last Admin: 03/16/19 21:54 Dose: 650 mg Albuterol Sulfate (Ventolin 0.083% Nebulizer Soln -) 1 amp NEB RQID PRN PRN Reason: SHORT OF BREATH/WHEEZING Last Admin: 03/16/19 20:10 Dose: 1 amp Allopurinol (Zyloprim -) 100 mg PO DAILY [facility] Last Admin: 03/17/19 10:50 Dose: 100 mg Artificial Tears (Artificial Tears) 1 drop OU BID [facility] Last Admin: 03/17/19 10:50 Dose: 1 drop Aspirin (Ecotrin -) 81 mg PO DAILY [facility] Last Admin: 03/17/19 10:50 Dose: 81 mg Atorvastatin Calcium (Lipitor -) 20 mg PO HS [facility] Last Admin: 03/16/19 21:56 Dose: 20 mg Bisacodyl (Dulcolax -) 5 mg PO HS PRN PRN Reason: CONSTIPATION Carvedilol (Coreg -) 12.5 mg PO BID [facility] Last Admin: 03/17/19 10:50 Dose: 12.5 mg Furosemide (Lasix -) 80 mg PO DAILY@0600 [facility] Last Admin: 03/17/19 06:25 Dose: 80 mg Gabapentin (Neurontin -) 300 mg PO HS [facility] Last Admin: 03/16/19 21:56 Dose: 300 mg Heparin Sodium (Porcine) (Heparin -) 5,000 unit SQ BID [facility] Last Admin: 03/17/19 10:51 Dose: 5,000 unit Ceftriaxone Sodium 1 gm/ (Dextrose) 50 mls @ 100 mls/hr IVPB DAILY [facility]; Protocol Last Admin: 03/17/19 10:51 Dose: 100 mls/hr Insulin Aspart (Novolog Vial Sliding Scale -) 1 vial SQ ACHS [facility]; Protocol Last Admin: 03/17/19 18:03 Dose: 4 unit Insulin Detemir (Levemir Vial) 18 units SQ HS [facility] Last Admin: 03/16/19 21:56 Dose: 18 units Isosorbide Mononitrate (Imdur -) 90 mg PO DAILY [facility] Last Admin: 03/17/19 10:50 Dose: 90 mg Latanoprost (Xalatan 0.005% Eye Drops -) 1 drop OU HS [facility] Last Admin: 03/16/19 21:58 Dose: 1 drop Levothyroxine Sodium (Synthroid -) 50 mcg PO AM [facility] Last Admin: 03/17/19 06:25 Dose: 50 mcg Lidocaine (Lidoderm Patch -) 1 patch TP DAILY PRN PRN Reason: LOWER BACK PAIN Miscellaneous (Lidoderm Patch Removal) 1 each MC DAILY@2200 [facility] Last Admin: 03/17/19 08:32 Dose: 1 each Polyethylene Glycol (Miralax (For Daily Use) -) 17 gm PO DAILY [facility] Last Admin: 03/17/19 10:51 Dose: 17 gm Ranitidine HCl (Zantac -) 150 mg PO BID [facility] Last Admin: 03/17/19 10:50 Dose: 150 mg Tamsulosin HCl (Flomax -) 0.4 mg PO DAILY@0830 [facility] Last Admin: 03/17/19 10:50 Dose: 0.4 mg Last Vital Signs Temp Pulse Resp BP Pulse Ox 98.2 F 75 20 131/65 97 03/17/19 14:15 03/17/19 16:44 03/17/19 14:15 03/17/19 14:15 03/17/19 16:44 Lungs clear Heart reg Abd soft nontender Ext no edema CBC, BMP 03/17/19 05:45 03/17/19 06:45 CBC, BMP 03/16/19 05:44 03/16/19 05:44 IMP renal function stable Plan- continue same fluid mgmt follow labs
[2019-03-17] MEDS ORDERED: INSULIN (NOVOLOG) ASPART 100 UNITS/ML 10ML VIAL ONE (21:06)
[2019-03-17] MEDS: INSULIN (LEVEMIR) 100 UNITS/ML UNITS SQ SCH (21:43)
[2019-03-17] MEDS: GABAPENTIN 300 MG CAPSULE (FP) PO SCH (21:44)
[2019-03-17] MEDS: ATORVASTATIN CA 20 MG TABLET (FP) PO SCH (21:44)
[2019-03-17] MEDS: ACETAMINOPHEN 325 MG TABLET (FP) PO PRN (21:44)
[2019-03-17] MEDS: LATANOPROST 0.005% OPHTH SOLN 2.5ML BOTTLE OU SCH (21:45)
[2019-03-18] MEDS ORDERED: ACETAMINOPHEN 325 MG TABLET (FP) PO ONE (00:30)
[2019-03-18] MEDS ORDERED: oxyCODONE HCL 5 MG TABLET PO ONE (00:30)
[2019-03-18] MEDS: INSULIN SLIDING SCALE (NOVOLOG) 1 VIAL SQ SCH ×4 (06:54→21:34)
[2019-03-18] MEDS: FUROSEMIDE 40 MG TABLET (FP) PO SCH (06:54)
[2019-03-18] MEDS: LEVOTHYROXINE NA 50 MCG TABLET (FP) PO SCH (06:54)
--- NOTE | 2019-03-18 07:32 | PN ---
Progress Note, Physician Chief Complaint: in bed generally weak no new c/o L foot pain on/off awaiting foot CT - Current Medication List Current Medications: Active Medications Acetaminophen (Tylenol -) 650 mg PO Q4H PRN PRN Reason: PAIN LEVEL 1-5 Last Admin: 03/17/19 21:44 Dose: 650 mg Allopurinol (Zyloprim -) 100 mg PO DAILY [facility] Last Admin: 03/17/19 10:50 Dose: 100 mg Artificial Tears (Artificial Tears) 1 drop OU BID [facility] Last Admin: 03/17/19 21:45 Dose: 1 drop Aspirin (Ecotrin -) 81 mg PO DAILY [facility] Last Admin: 03/17/19 10:50 Dose: 81 mg Atorvastatin Calcium (Lipitor -) 20 mg PO HS [facility] Last Admin: 03/17/19 21:44 Dose: 20 mg Bisacodyl (Dulcolax -) 5 mg PO HS PRN PRN Reason: CONSTIPATION Carvedilol (Coreg -) 12.5 mg PO BID [facility] Last Admin: 03/17/19 21:44 Dose: 12.5 mg Furosemide (Lasix -) 80 mg PO DAILY@0600 [facility] Last Admin: 03/18/19 06:54 Dose: 80 mg Gabapentin (Neurontin -) 300 mg PO HS [facility] Last Admin: 03/17/19 21:44 Dose: 300 mg Heparin Sodium (Porcine) (Heparin -) 5,000 unit SQ BID [facility] Last Admin: 03/17/19 21:46 Dose: 5,000 unit Ceftriaxone Sodium 1 gm/ (Dextrose) 50 mls @ 100 mls/hr IVPB DAILY [facility]; Protocol Last Admin: 03/17/19 10:51 Dose: 100 mls/hr Insulin Aspart (Novolog Vial Sliding Scale -) 1 vial SQ ACHS [facility]; Protocol Last Admin: 03/18/19 06:54 Dose: 4 unit Insulin Detemir (Levemir Vial) 18 units SQ HS [facility] Last Admin: 03/17/19 21:43 Dose: Not Given Isosorbide Mononitrate (Imdur -) 90 mg PO DAILY [facility] Last Admin: 03/17/19 10:50 Dose: 90 mg Latanoprost (Xalatan 0.005% Eye Drops -) 1 drop OU HS [facility] Last Admin: 03/17/19 21:45 Dose: 1 drop Levothyroxine Sodium (Synthroid -) 50 mcg PO AM [facility] Last Admin: 03/18/19 06:54 Dose: 50 mcg Lidocaine (Lidoderm Patch -) 1 patch TP DAILY PRN PRN Reason: LOWER BACK PAIN Miscellaneous (Lidoderm Patch Removal) 1 each MC DAILY@2200 [facility] Last Admin: 03/17/19 21:46 Dose: 1 each Polyethylene Glycol (Miralax (For Daily Use) -) 17 gm PO DAILY [facility] Last Admin: 03/17/19 10:51 Dose: 17 gm Ranitidine HCl (Zantac -) 150 mg PO BID [facility] Last Admin: 03/17/19 21:44 Dose: 150 mg Tamsulosin HCl (Flomax -) 0.4 mg PO DAILY@0830 [facility] Last Admin: 03/17/19 10:50 Dose: 0.4 mg - Objective Vital Signs: Vital Signs Temperature 97.2 F L 03/18/19 06:00 Pulse Rate 66 03/18/19 06:00 Respiratory Rate 20 03/18/19 06:00 Blood Pressure 127/51 L 03/18/19 06:00 O2 Sat by Pulse Oximetry (%) 96 03/17/19 21:00 Constitutional: Yes: No Distress, Calm Eyes: Yes: Conjunctiva Clear HENT: Yes: Atraumatic Neck: Yes: Supple Cardiovascular: Yes: Regular Rate and Rhythm Respiratory: Yes: CTA Bilaterally Gastrointestinal: Yes: Soft. No: Tenderness Genitourinary: No: Hematuria Musculoskeletal: No: Joint Stiffness, Joint Swelling Extremities: Yes: Other (L foot dorsal hematoma? some local pain awaiting CT) Edema: No Integumentary: No: Rash, Venous Stasis Changes Neurological: Yes: WNL, Alert, Oriented ...Motor Strength: WNL Psychiatric: Yes: WNL, Alert, Oriented. No: Agitated Labs: CBC, BMP 03/17/19 05:45 03/17/19 06:45 - ....Imaging Other: Report Reviewed Assessment/Plan Pt presents to the ED complaining of a two day history of worsening abdominal distention, shortness of breath and diarrhea. History of CHF, chronically on home o2, increasingly lethargic, decreased po intake. s/p fall x 2 at home SOB CHF / COPD exac; pulm and cardio f/u; prn BIPAP / telemetry monitoring ARF/CRF; uncontrolled DM, rabdomyolisis, prerenal azotemia, s/p lasix lower dose f/u labs urinary retention had [place] in 24h, seen by , on flomax; [place] or straight cath prn; OOB mobilize; watch UO closely L foot pain hematoma - foot CT ordered falls decubs DVT pfx prognosis guarded d/w pt turn in bed q1h to prevent decubs; do not get OOB alone to prevent falls d.w staff d.w daughter Aicha - pt will need PT SNF
[2019-03-18] MEDS: TAMSULOSIN HCL 0.4 MG CAP PO SCH (07:56)
[2019-03-18] MEDS ORDERED: PT OWN MED DRAWER 7, Y5N ONE (09:14)
[2019-03-18] MEDS ORDERED: cefTRIAXone SODIUM 1 GM VIAL ONE (09:14)
[2019-03-18] MEDS ORDERED: DEXTROSE 5%-WATER - 50 ML IVPB ONE (09:14)
[2019-03-18] MEDS: RANITIDINE HCL 150 MG TABLET (FP) PO SCH ×2 (09:24→21:33)
[2019-03-18] MEDS: CARVEDILOL 12.5 MG TABLET (FP) PO SCH ×2 (09:24→21:33)
[2019-03-18] MEDS: ALLOPURINOL 100 MG TABLET (FP) PO SCH (09:24)
[2019-03-18] MEDS: ASPIRIN COATED 81 MG TABLET.EC PO SCH (09:24)
[2019-03-18] MEDS: ISOSORBIDE MONONITRATE 30 MG TAB.SR.24H (FP) PO SCH (09:24)
[2019-03-18] MEDS: CEFTRIAXONE 1 GM in DEXTROSE 5%-WATER - 50 ML IVPB SCH (09:25)
[2019-03-18] MEDS: POLYETHYLENE GLYCOL 3350 119 GM BTL PO SCH (09:25)
[2019-03-18] MEDS: HEPARIN NA (PORCINE) 5,000 UNITS/ML 1ML VIAL SQ SCH ×2 (09:32→21:33)
[2019-03-18] MEDS: ARTIFICIAL TEARS (POLYVINYL ALCOHOL) OPTH DROPS OU SCH ×2 (09:32→21:37)
--- NOTE | 2019-03-18 09:39 | PN ---
Progress Note, Physician Chief Complaint: Events noted Not in distress History of Present Illness: Patient was seen and examined. Awake. Chart was reviewed Denies chest pain, SOB or palpitations - Current Medication List Current Medications: Active Medications Acetaminophen (Tylenol -) 650 mg PO Q4H PRN PRN Reason: PAIN LEVEL 1-5 Last Admin: 03/17/19 21:44 Dose: 650 mg Allopurinol (Zyloprim -) 100 mg PO DAILY [facility] Last Admin: 03/18/19 09:24 Dose: 100 mg Artificial Tears (Artificial Tears) 1 drop OU BID [facility] Last Admin: 03/18/19 09:32 Dose: 1 drop Aspirin (Ecotrin -) 81 mg PO DAILY [facility] Last Admin: 03/18/19 09:24 Dose: 81 mg Atorvastatin Calcium (Lipitor -) 20 mg PO HS [facility] Last Admin: 03/17/19 21:44 Dose: 20 mg Bisacodyl (Dulcolax -) 5 mg PO HS PRN PRN Reason: CONSTIPATION Carvedilol (Coreg -) 12.5 mg PO BID [facility] Last Admin: 03/18/19 09:24 Dose: 12.5 mg Furosemide (Lasix -) 80 mg PO DAILY@0600 [facility] Last Admin: 03/18/19 06:54 Dose: 80 mg Gabapentin (Neurontin -) 300 mg PO HS [facility] Last Admin: 03/17/19 21:44 Dose: 300 mg Heparin Sodium (Porcine) (Heparin -) 5,000 unit SQ BID [facility] Last Admin: 03/18/19 09:32 Dose: 5,000 unit Ceftriaxone Sodium 1 gm/ (Dextrose) 50 mls @ 100 mls/hr IVPB DAILY [facility]; Protocol Last Admin: 03/18/19 09:25 Dose: 100 mls/hr Insulin Aspart (Novolog Vial Sliding Scale -) 1 vial SQ ACHS [facility]; Protocol Last Admin: 03/18/19 06:54 Dose: 4 unit Insulin Detemir (Levemir Vial) 18 units SQ HS [facility] Last Admin: 03/17/19 21:43 Dose: Not Given Isosorbide Mononitrate (Imdur -) 90 mg PO DAILY [facility] Last Admin: 03/18/19 09:24 Dose: 90 mg Latanoprost (Xalatan 0.005% Eye Drops -) 1 drop OU HS [facility] Last Admin: 03/17/19 21:45 Dose: 1 drop Levothyroxine Sodium (Synthroid -) 50 mcg PO AM [facility] Last Admin: 03/18/19 06:54 Dose: 50 mcg Lidocaine (Lidoderm Patch -) 1 patch TP DAILY PRN PRN Reason: LOWER BACK PAIN Miscellaneous (Lidoderm Patch Removal) 1 each MC DAILY@2200 [facility] Last Admin: 03/17/19 21:46 Dose: 1 each Polyethylene Glycol (Miralax (For Daily Use) -) 17 gm PO DAILY [facility] Last Admin: 03/18/19 09:25 Dose: 17 gm Ranitidine HCl (Zantac -) 150 mg PO BID [facility] Last Admin: 03/18/19 09:24 Dose: 150 mg Tamsulosin HCl (Flomax -) 0.4 mg PO DAILY@0830 [facility] Last Admin: 03/18/19 07:56 Dose: 0.4 mg - Objective Vital Signs: Vital Signs Temperature 97.2 F L 03/18/19 06:00 Pulse Rate 66 03/18/19 06:00 Respiratory Rate 20 03/18/19 06:00 Blood Pressure 127/51 L 03/18/19 06:00 O2 Sat by Pulse Oximetry (%) 96 03/17/19 21:00 Eyes: Yes: PERRL HENT: Yes: Atraumatic Neck: Yes: Supple Cardiovascular: Yes: Regular Rate and Rhythm, S1, S2 Respiratory: Yes: CTA Bilaterally Gastrointestinal: Yes: Normal Bowel Sounds, Soft. No: Tenderness Edema: No Additional Findings/Remarks: - Review of Systems Constitutional: denies: Chills, Fever Cardiovascular: denies Chest Pain. denies: Palpitations, Shortness of Breath Respiratory: denies: Cough, Hemoptysis, Orthopnea, PND, SOB, SOB on Exertion Gastrointestinal: denies: Abdominal Pain, Constipation, Diarrhea, Melena, Nausea , Rectal Bleeding, Vomiting Neurological: denies Dizziness, Headache. denies: Seizure, Syncope Labs: CBC, BMP 03/17/19 05:45 03/17/19 06:45 Problem List - Problems (1) Acute on chronic respiratory failure with hypercapnia Code(s): J96.22 - ACUTE AND CHRONIC RESPIRATORY FAILURE WITH HYPERCAPNIA (2) Acute on chronic respiratory failure with hypoxia and hypercapnia Code(s): J96.21 - ACUTE AND CHRONIC RESPIRATORY FAILURE WITH HYPOXIA; J96.22 - ACUTE AND CHRONIC RESPIRATORY FAILURE WITH HYPERCAPNIA (3) CHF exacerbation Code(s): I50.9 - HEART FAILURE, UNSPECIFIED Qualifiers: Heart failure type: unspecified Qualified Code(s): I50.9 - Heart failure, unspecified (4) ANDRÉS (acute kidney injury) Code(s): N17.9 - ACUTE KIDNEY FAILURE, UNSPECIFIED (5) Anemia Code(s): D64.9 - ANEMIA, UNSPECIFIED (6) CAD (coronary artery disease) Code(s): I25.10 - ATHSCL HEART DISEASE OF [place] CORONARY ARTERY W/O ANG PCTRS Qualifiers: Coronary Disease-Associated Artery/Lesion type: [place] artery (7) CRF (chronic renal failure) Code(s): N18.9 - CHRONIC KIDNEY DISEASE, UNSPECIFIED (8) Diabetes mellitus Code(s): E11.9 - TYPE 2 DIABETES MELLITUS WITHOUT COMPLICATIONS Qualifiers: Diabetes mellitus type: type 2 Diabetes mellitus half-way insulin use: unspecified half-way insulin use status Diabetes mellitus complication status : with other specified complication Qualified Code(s): E11.69 - Type 2 diabetes mellitus with other specified complication (9) Weakness Code(s): R53.1 - WEAKNESS (10) Hyperlipidemia Code(s): E78.5 - HYPERLIPIDEMIA, UNSPECIFIED Qualifiers: Hyperlipidemia type: pure hypercholesterolemia Qualified Code(s): E78.00 - Pure hypercholesterolemia, unspecified; E78.0 - Pure hypercholesterolemia (11) Hypertension Code(s): I10 - ESSENTIAL (PRIMARY) HYPERTENSION Qualifiers: Hypertension type: unspecified Qualified Code(s): I10 - Essential (primary ) hypertension (12) Hypothyroidism Code(s): E03.9 - HYPOTHYROIDISM, UNSPECIFIED Qualifiers: Hypothyroidism type: unspecified Qualified Code(s): E03.9 - Hypothyroidism , unspecified Assessment/Plan 1. Acute on chronic hypoxemic/hypercapneic respiratory failure post fall 2. Acute on chronic LV diastolic failure 3. CAD - non-obstructive, angina pectoris 4. HTN 5. Hypercholesterolemia 6. Type 2 DM 7. Hypothyroidism 8. Acute on CKD stage 4, prerenal azotemia 9. Hypovolemic hyponatremia and hypokalemia 10. Spinal stenosis and cervical radiculopathy 11. Anemia 12. OSAS suspect 13. Left foot contusion PLAN: 1. Continue Lasix 80 mg QD with monitoring renal function and electrolytes 2. Continue ASA 81 mg QD, Carvedilol 12.5 mg BID, Lipitor 20 mg QHS, Imdur 90 mg QD and Hydralazine 50 mg TID as tolerated 3. Ideally addition of CHRISTINE inhibitor or angiotensin receptor rayo (ARB) therapy is recommended once renal function stabilizes 4. GI and DVT prophylaxis Further plans are to follow. May transfer to floor care Apollo Kiser MD
--- NOTE | 2019-03-18 11:09 | PN ---
Progress Note, Physician History of Present Illness: PULMONARY DROWSY,-RESP DISTRESS - Current Medication List Current Medications: Active Medications Acetaminophen (Tylenol -) 650 mg PO Q4H PRN PRN Reason: PAIN LEVEL 1-5 Last Admin: 03/17/19 21:44 Dose: 650 mg Allopurinol (Zyloprim -) 100 mg PO DAILY [facility] Last Admin: 03/18/19 09:24 Dose: 100 mg Artificial Tears (Artificial Tears) 1 drop OU BID [facility] Last Admin: 03/18/19 09:32 Dose: 1 drop Aspirin (Ecotrin -) 81 mg PO DAILY [facility] Last Admin: 03/18/19 09:24 Dose: 81 mg Atorvastatin Calcium (Lipitor -) 20 mg PO HS [facility] Last Admin: 03/17/19 21:44 Dose: 20 mg Bisacodyl (Dulcolax -) 5 mg PO HS PRN PRN Reason: CONSTIPATION Carvedilol (Coreg -) 12.5 mg PO BID [facility] Last Admin: 03/18/19 09:24 Dose: 12.5 mg Furosemide (Lasix -) 80 mg PO DAILY@0600 [facility] Last Admin: 03/18/19 06:54 Dose: 80 mg Gabapentin (Neurontin -) 300 mg PO HS [facility] Last Admin: 03/17/19 21:44 Dose: 300 mg Heparin Sodium (Porcine) (Heparin -) 5,000 unit SQ BID [facility] Last Admin: 03/18/19 09:32 Dose: 5,000 unit Ceftriaxone Sodium 1 gm/ (Dextrose) 50 mls @ 100 mls/hr IVPB DAILY [facility]; Protocol Last Admin: 03/18/19 09:25 Dose: 100 mls/hr Insulin Aspart (Novolog Vial Sliding Scale -) 1 vial SQ ACHS [facility]; Protocol Last Admin: 03/18/19 06:54 Dose: 4 unit Insulin Detemir (Levemir Vial) 18 units SQ HS [facility] Last Admin: 03/17/19 21:43 Dose: Not Given Isosorbide Mononitrate (Imdur -) 90 mg PO DAILY [facility] Last Admin: 03/18/19 09:24 Dose: 90 mg Latanoprost (Xalatan 0.005% Eye Drops -) 1 drop OU HS [facility] Last Admin: 03/17/19 21:45 Dose: 1 drop Levothyroxine Sodium (Synthroid -) 50 mcg PO AM [facility] Last Admin: 03/18/19 06:54 Dose: 50 mcg Lidocaine (Lidoderm Patch -) 1 patch TP DAILY PRN PRN Reason: LOWER BACK PAIN Miscellaneous (Lidoderm Patch Removal) 1 each MC DAILY@2200 [facility] Last Admin: 03/17/19 21:46 Dose: 1 each Polyethylene Glycol (Miralax (For Daily Use) -) 17 gm PO DAILY [facility] Last Admin: 03/18/19 09:25 Dose: 17 gm Ranitidine HCl (Zantac -) 150 mg PO BID [facility] Last Admin: 03/18/19 09:24 Dose: 150 mg Tamsulosin HCl (Flomax -) 0.4 mg PO DAILY@0830 [facility] Last Admin: 03/18/19 07:56 Dose: 0.4 mg - Objective Vital Signs: Vital Signs Temperature 97.9 F 03/18/19 10:00 Pulse Rate 61 03/18/19 10:00 Respiratory Rate 20 03/18/19 10:00 Blood Pressure 128/51 L 03/18/19 10:00 O2 Sat by Pulse Oximetry (%) 100 03/18/19 09:00 Constitutional: Yes: Obese, Other (DROWSY) Eyes: Yes: WNL HENT: Yes: WNL Neck: Yes: WNL Cardiovascular: Yes: Regular Rate and Rhythm, S1, S2 Respiratory: Yes: Rales (BIBASILAR RALES) Gastrointestinal: Yes: Normal Bowel Sounds, Soft Extremities: Yes: WNL Edema: No Labs: CBC, BMP 03/17/19 05:45 03/17/19 06:45 Problem List - Problems (1) Acute on chronic respiratory failure with hypoxia and hypercapnia Code(s): J96.21 - ACUTE AND CHRONIC RESPIRATORY FAILURE WITH HYPOXIA; J96.22 - ACUTE AND CHRONIC RESPIRATORY FAILURE WITH HYPERCAPNIA (2) CHF exacerbation Code(s): I50.9 - HEART FAILURE, UNSPECIFIED Qualifiers: Heart failure type: unspecified Qualified Code(s): I50.9 - Heart failure, unspecified (3) Anemia Code(s): D64.9 - ANEMIA, UNSPECIFIED (4) Bilateral lower extremity edema Code(s): R60.0 - LOCALIZED EDEMA (5) CAD (coronary artery disease) Code(s): I25.10 - ATHSCL HEART DISEASE OF [place] CORONARY ARTERY W/O ANG PCTRS Qualifiers: Coronary Disease-Associated Artery/Lesion type: [place] artery (6) CHF (congestive heart failure) Code(s): I50.9 - HEART FAILURE, UNSPECIFIED (7) CRF (chronic renal failure) Code(s): N18.9 - CHRONIC KIDNEY DISEASE, UNSPECIFIED Qualifiers: Chronic kidney disease stage: stage 4 (severe) Qualified Code(s): N18.4 - Chronic kidney disease, stage 4 (severe) (8) Diabetes mellitus Code(s): E11.9 - TYPE 2 DIABETES MELLITUS WITHOUT COMPLICATIONS Qualifiers: Diabetes mellitus type: type 2 Diabetes mellitus [facility] insulin use: unspecified [facility] insulin use status Diabetes mellitus complication status : with other specified complication Qualified Code(s): E11.69 - Type 2 diabetes mellitus with other specified complication (9) Hypertension Code(s): I10 - ESSENTIAL (PRIMARY) HYPERTENSION Qualifiers: Hypertension type: unspecified Qualified Code(s): I10 - Essential (primary ) hypertension (10) CHF exacerbation Code(s): I50.9 - HEART FAILURE, UNSPECIFIED (11) Dyspnea Code(s): R06.00 - DYSPNEA, UNSPECIFIED Qualifiers: Dyspnea type: other forms of dyspnea Qualified Code(s): R06.09 - Other forms of dyspnea Assessment/Plan IMP ACUTE ON CHRONIC HYPOXEMIC /HYPERCAPNEIC RESPIRATORY FAILURE ACUTE ON CHRONIC CHF ACUTE ON CKD HTN HLD DM ASHD SUSPECTED [place] PLAN LASIX O2 BIPAP NEEDED MONITOR LYTES,RENAL FUNCTION F/U CHEST X-RAYS DAILY WTS F/U ABG TODAY OUTPATIENT SLEEP STUDIES MONITOR LYTES CONSIDER TRIOLGY DEVICE AT HOME DR DUBOIS Problem List - Problems (1) Acute on chronic respiratory failure with hypoxia and hypercapnia Code(s): J96.21 - ACUTE AND CHRONIC RESPIRATORY FAILURE WITH HYPOXIA; J96.22 - ACUTE AND CHRONIC RESPIRATORY FAILURE WITH HYPERCAPNIA (2) CHF exacerbation Code(s): I50.9 - HEART FAILURE, UNSPECIFIED Qualifiers: Heart failure type: unspecified Qualified Code(s): I50.9 - Heart failure, unspecified (3) Anemia Code(s): D64.9 - ANEMIA, UNSPECIFIED (4) Bilateral lower extremity edema Code(s): R60.0 - LOCALIZED EDEMA (5) CAD (coronary artery disease) Code(s): I25.10 - ATHSCL HEART DISEASE OF [place] CORONARY ARTERY W/O ANG PCTRS Qualifiers: Coronary Disease-Associated Artery/Lesion type: [place] artery (6) CHF (congestive heart failure) Code(s): I50.9 - HEART FAILURE, UNSPECIFIED (7) CRF (chronic renal failure) Code(s): N18.9 - CHRONIC KIDNEY DISEASE, UNSPECIFIED Qualifiers: Chronic kidney disease stage: stage 4 (severe) Qualified Code(s): N18.4 - Chronic kidney disease, stage 4 (severe) (8) Diabetes mellitus Code(s): E11.9 - TYPE 2 DIABETES MELLITUS WITHOUT COMPLICATIONS Qualifiers: Diabetes mellitus type: type 2 Diabetes 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: unspecified long filler cigar roller machine insulin use status Diabetes mellitus complication status : with other specified complication Qualified Code(s): E11.69 - Type 2 diabetes mellitus with other specified complication (9) Hypertension Code(s): I10 - ESSENTIAL (PRIMARY) HYPERTENSION Qualifiers: Hypertension type: unspecified Qualified Code(s): I10 - Essential (primary ) hypertension (10) CHF exacerbation Code(s): I50.9 - HEART FAILURE, UNSPECIFIED (11) Dyspnea Code(s): R06.00 - DYSPNEA, UNSPECIFIED Qualifiers: Dyspnea type: other forms of dyspnea Qualified Code(s): R06.09 - Other forms of dyspnea
[2019-03-18 11:37] LABS: ARTERIAL BLD GAS O2 SATURATION 99.4 % (95-98); ARTERIAL BLOOD GAS BASE EXCESS 13.2 meq/l (-2-2); ARTERIAL BLOOD GAS PO2 151 mmHg (80-100); ARTERIAL BLOOD GAS pH 7.38 (7.35-7.45)
[2019-03-18 11:40] LABS: ALLENS TEST POSITIVE
[2019-03-18 11:42] LABS: ARTERIAL BLOOD GAS PCO2 70.3 mmHg (35-45)
--- NOTE | 2019-03-18 12:38 | PN ---
Progress Note (short form) - Note Progress Note: Renal follow up for CKD Seen and examined at the bedside continues to have jesus shane he rleg denies any sob, chest pain, fever or chills making urine tolerating oral diet Vital Signs Temperature 97.9 F 03/18/19 10:00 Pulse Rate 61 03/18/19 10:00 Respiratory Rate 20 03/18/19 10:00 Blood Pressure 128/51 L 03/18/19 10:00 O2 Sat by Pulse Oximetry (%) 100 03/18/19 09:00 Intake & Output 03/15/19 03/16/19 03/17/19 03/18/19 23:59 23:59 23:59 23:59 Intake Total 750 890 420 Output Total 1800 Balance 750 890 -1800 420 Weight 77.292 kg 76.839 kg 74.571 kg on NC O2 no acute distress trace edema in LE CBC, BMP 03/17/19 05:45 03/17/19 06:45 Current Medications Acetaminophen (Tylenol -) 650 mg PO Q4H PRN PRN Reason: PAIN LEVEL 1-5 Last Admin: 03/17/19 21:44 Dose: 650 mg Allopurinol (Zyloprim -) 100 mg PO DAILY [facility] Last Admin: 03/18/19 09:24 Dose: 100 mg Artificial Tears (Artificial Tears) 1 drop OU BID [facility] Last Admin: 03/18/19 09:32 Dose: 1 drop Aspirin (Ecotrin -) 81 mg PO DAILY [facility] Last Admin: 03/18/19 09:24 Dose: 81 mg Atorvastatin Calcium (Lipitor -) 20 mg PO HS [facility] Last Admin: 03/17/19 21:44 Dose: 20 mg Bisacodyl (Dulcolax -) 5 mg PO HS PRN PRN Reason: CONSTIPATION Carvedilol (Coreg -) 12.5 mg PO BID [facility] Last Admin: 03/18/19 09:24 Dose: 12.5 mg Furosemide (Lasix -) 80 mg PO DAILY@0600 [facility] Last Admin: 03/18/19 06:54 Dose: 80 mg Gabapentin (Neurontin -) 300 mg PO HS [facility] Last Admin: 03/17/19 21:44 Dose: 300 mg Heparin Sodium (Porcine) (Heparin -) 5,000 unit SQ BID [facility] Last Admin: 03/18/19 09:32 Dose: 5,000 unit Ceftriaxone Sodium 1 gm/ (Dextrose) 50 mls @ 100 mls/hr IVPB DAILY [facility]; Protocol Last Admin: 03/18/19 09:25 Dose: 100 mls/hr Insulin Aspart (Novolog Vial Sliding Scale -) 1 vial SQ ACHS [facility]; Protocol Last Admin: 03/18/19 11:22 Dose: 6 unit Insulin Detemir (Levemir Vial) 18 units SQ HS [facility] Last Admin: 03/17/19 21:43 Dose: Not Given Isosorbide Mononitrate (Imdur -) 90 mg PO DAILY [facility] Last Admin: 03/18/19 09:24 Dose: 90 mg Latanoprost (Xalatan 0.005% Eye Drops -) 1 drop OU HS [facility] Last Admin: 03/17/19 21:45 Dose: 1 drop Levothyroxine Sodium (Synthroid -) 50 mcg PO AM [facility] Last Admin: 03/18/19 06:54 Dose: 50 mcg Lidocaine (Lidoderm Patch -) 1 patch TP DAILY PRN PRN Reason: LOWER BACK PAIN Miscellaneous (Lidoderm Patch Removal) 1 each MC DAILY@2200 [facility] Last Admin: 03/17/19 21:46 Dose: 1 each Polyethylene Glycol (Miralax (For Daily Use) -) 17 gm PO DAILY [facility] Last Admin: 03/18/19 09:25 Dose: 17 gm Ranitidine HCl (Zantac -) 150 mg PO BID [facility] Last Admin: 03/18/19 09:24 Dose: 150 mg Tamsulosin HCl (Flomax -) 0.4 mg PO DAILY@0830 [facility] Last Admin: 03/18/19 07:56 Dose: 0.4 mg 83 year old [place] woman with history of CKD stage 4 (baseline Cr ~2), DM Type 2, CHF with diastolic dysfunction, hypertension who presented from home with a fall and diarrhea. 1. CKD stage 4 2. Fall 3. Diarrhea r/o infectious etiology 4. CHF with diastolic dysfunction 5. Anemia 6. Hypertension 7. Compensated respiratory acidosis Renal function is stable. No uremic symptoms despite high BUN. Continue Lasix 80mg daily Trend H/H awaiting rehab placement pulmonary follow up Wm Tian DO
--- NOTE | 2019-03-18 12:57 | PN ---
Progress Note, Physician History of Present Illness: leg pain otherwise ok - Current Medication List Current Medications: Active Medications Acetaminophen (Tylenol -) 650 mg PO Q4H PRN PRN Reason: PAIN LEVEL 1-5 Last Admin: 03/17/19 21:44 Dose: 650 mg Allopurinol (Zyloprim -) 100 mg PO DAILY [facility] Last Admin: 03/18/19 09:24 Dose: 100 mg Artificial Tears (Artificial Tears) 1 drop OU BID [facility] Last Admin: 03/18/19 09:32 Dose: 1 drop Aspirin (Ecotrin -) 81 mg PO DAILY [facility] Last Admin: 03/18/19 09:24 Dose: 81 mg Atorvastatin Calcium (Lipitor -) 20 mg PO HS [facility] Last Admin: 03/17/19 21:44 Dose: 20 mg Bisacodyl (Dulcolax -) 5 mg PO HS PRN PRN Reason: CONSTIPATION Carvedilol (Coreg -) 12.5 mg PO BID [facility] Last Admin: 03/18/19 09:24 Dose: 12.5 mg Furosemide (Lasix -) 80 mg PO DAILY@0600 [facility] Last Admin: 03/18/19 06:54 Dose: 80 mg Gabapentin (Neurontin -) 300 mg PO HS [facility] Last Admin: 03/17/19 21:44 Dose: 300 mg Heparin Sodium (Porcine) (Heparin -) 5,000 unit SQ BID [facility] Last Admin: 03/18/19 09:32 Dose: 5,000 unit Ceftriaxone Sodium 1 gm/ (Dextrose) 50 mls @ 100 mls/hr IVPB DAILY [facility]; Protocol Last Admin: 03/18/19 09:25 Dose: 100 mls/hr Insulin Aspart (Novolog Vial Sliding Scale -) 1 vial SQ ACHS [facility]; Protocol Last Admin: 03/18/19 11:22 Dose: 6 unit Insulin Detemir (Levemir Vial) 18 units SQ HS [facility] Last Admin: 03/17/19 21:43 Dose: Not Given Isosorbide Mononitrate (Imdur -) 90 mg PO DAILY [facility] Last Admin: 03/18/19 09:24 Dose: 90 mg Latanoprost (Xalatan 0.005% Eye Drops -) 1 drop OU HS [facility] Last Admin: 03/17/19 21:45 Dose: 1 drop Levothyroxine Sodium (Synthroid -) 50 mcg PO AM [facility] Last Admin: 03/18/19 06:54 Dose: 50 mcg Lidocaine (Lidoderm Patch -) 1 patch TP DAILY PRN PRN Reason: LOWER BACK PAIN Miscellaneous (Lidoderm Patch Removal) 1 each MC DAILY@2200 [facility] Last Admin: 03/17/19 21:46 Dose: 1 each Polyethylene Glycol (Miralax (For Daily Use) -) 17 gm PO DAILY [facility] Last Admin: 03/18/19 09:25 Dose: 17 gm Ranitidine HCl (Zantac -) 150 mg PO BID [facility] Last Admin: 03/18/19 09:24 Dose: 150 mg Tamsulosin HCl (Flomax -) 0.4 mg PO DAILY@0830 [facility] Last Admin: 03/18/19 07:56 Dose: 0.4 mg - Objective Vital Signs: Vital Signs Temperature 97.9 F 03/18/19 10:00 Pulse Rate 61 03/18/19 10:00 Respiratory Rate 20 03/18/19 10:00 Blood Pressure 128/51 L 03/18/19 10:00 O2 Sat by Pulse Oximetry (%) 100 03/18/19 09:00 Constitutional: Yes: Calm, Mild Distress Cardiovascular: Yes: S1, S2 Respiratory: Yes: Regular, CTA Bilaterally Gastrointestinal: Yes: Normal Bowel Sounds, Soft Musculoskeletal: Yes: Back Pain, Other (leg pain) Extremities: Yes: Other Neurological: Yes: Alert, Oriented Psychiatric: Yes: Alert, Oriented Labs: CBC, BMP 03/17/19 05:45 03/17/19 06:45 Assessment/Plan Problem List - Problems (1) Acute on chronic respiratory failure with hypoxia and hypercapnia Code(s): J96.21 - ACUTE AND CHRONIC RESPIRATORY FAILURE WITH HYPOXIA; J96.22 - ACUTE AND CHRONIC RESPIRATORY FAILURE WITH HYPERCAPNIA (2) ANDRÉS (acute kidney injury) Code(s): N17.9 - ACUTE KIDNEY FAILURE, UNSPECIFIED (3) CRF (chronic renal failure) Code(s): N18.9 - CHRONIC KIDNEY DISEASE, UNSPECIFIED Qualifiers: Chronic kidney disease stage: stage 4 (severe) Qualified Code(s): N18.4 - Chronic kidney disease, stage 4 (severe) (4) Hyperkalemia Code(s): E87.5 - HYPERKALEMIA (5) Fall Code(s): W19.XXXA - UNSPECIFIED FALL, INITIAL ENCOUNTER Qualifiers: Encounter type: initial encounter Qualified Code(s): W19.XXXA - Unspecified fall, initial encounter (6) CAD (coronary artery disease) Code(s): I25.10 - ATHSCL HEART DISEASE OF [place] CORONARY ARTERY W/O ANG PCTRS Qualifiers: Coronary Disease-Associated Artery/Lesion type: [place] artery [place] vs. transplanted heart: [place] heart Associated angina: with unspecified angina Qualified Code(s): I25.119 - Atherosclerotic heart disease of [place] coronary artery with unspecified angina pectoris (7) Diabetes mellitus Code(s): E11.9 - TYPE 2 DIABETES MELLITUS WITHOUT COMPLICATIONS Qualifiers: Diabetes mellitus type: type 2 Diabetes mellitus long term care phlebotomist insulin use: unspecified retirement insulin use status Diabetes mellitus complication status : with other specified complication Qualified Code(s): E11.69 - Type 2 diabetes mellitus with other specified complication (8) Foot trauma Code(s): S99.929A - UNSPECIFIED INJURY OF UNSPECIFIED FOOT, INITIAL ENCOUNTER plan can change to oral augmentin rest as per the team
[2019-03-18] MEDS: GABAPENTIN 300 MG CAPSULE (FP) PO SCH (21:33)
[2019-03-18] MEDS: ATORVASTATIN CA 20 MG TABLET (FP) PO SCH (21:33)
[2019-03-18] MEDS: INSULIN (LEVEMIR) 100 UNITS/ML UNITS SQ SCH (21:33)
[2019-03-18] MEDS: LATANOPROST 0.005% OPHTH SOLN 2.5ML BOTTLE OU SCH (21:38)
[2019-03-18] MEDS: LIDOCAINE PATCH REMOVAL MC SCH (21:39)
[2019-03-19] MEDS: FUROSEMIDE 40 MG TABLET (FP) PO SCH (06:39)
[2019-03-19] MEDS: INSULIN SLIDING SCALE (NOVOLOG) 1 VIAL SQ SCH ×4 (06:39→22:00)
[2019-03-19] MEDS: LEVOTHYROXINE NA 50 MCG TABLET (FP) PO SCH (06:39)
[2019-03-19 07:41] LABS: BLOOD UREA NITROGEN 55.4 mg/dL (7-18); CALCIUM 10.7 mg/dL (8.5-10.1); CREATININE 1.4 mg/dL (0.55-1.3); POTASSIUM 5.1 mmol/L (3.5-5.1)
--- NOTE | 2019-03-19 10:03 | PN ---
Progress Note, Physician History of Present Illness: Pt tolerating O2 supplementation via NC. Pt w/o CP, palpitation, abd pain, diarrhea, nausea, vomiting. Pt with Left foot pain on and off, no specific trigger, other than palpation. Pt w/o fever, chills, no pulsations sensation in left foot. - Current Medication List Current Medications: Active Medications Acetaminophen (Tylenol -) 650 mg PO Q4H PRN PRN Reason: PAIN LEVEL 1-5 Last Admin: 03/17/19 21:44 Dose: 650 mg Allopurinol (Zyloprim -) 100 mg PO DAILY [facility] Last Admin: 03/18/19 09:24 Dose: 100 mg Artificial Tears (Artificial Tears) 1 drop OU BID [facility] Last Admin: 03/18/19 21:37 Dose: 1 drop Aspirin (Ecotrin -) 81 mg PO DAILY [facility] Last Admin: 03/18/19 09:24 Dose: 81 mg Atorvastatin Calcium (Lipitor -) 20 mg PO HS [facility] Last Admin: 03/18/19 21:33 Dose: 20 mg Bisacodyl (Dulcolax -) 5 mg PO HS PRN PRN Reason: CONSTIPATION Carvedilol (Coreg -) 12.5 mg PO BID [facility] Last Admin: 03/18/19 21:33 Dose: 12.5 mg Furosemide (Lasix -) 80 mg PO DAILY@0600 [facility] Last Admin: 03/19/19 06:39 Dose: 80 mg Gabapentin (Neurontin -) 300 mg PO HS [facility] Last Admin: 03/18/19 21:33 Dose: 300 mg Heparin Sodium (Porcine) (Heparin -) 5,000 unit SQ BID [facility] Last Admin: 03/18/19 21:33 Dose: 5,000 unit Ceftriaxone Sodium 1 gm/ (Dextrose) 50 mls @ 100 mls/hr IVPB DAILY [facility]; Protocol Last Admin: 03/18/19 09:25 Dose: 100 mls/hr Insulin Aspart (Novolog Vial Sliding Scale -) [address] [facility]; Protocol Last Admin: 03/19/19 06:39 Dose: Not Given Insulin Detemir (Levemir Vial) 18 units SQ HS [facility] Last Admin: 03/18/19 21:33 Dose: 18 units Isosorbide Mononitrate (Imdur -) 90 mg PO DAILY [facility] Last Admin: 03/18/19 09:24 Dose: 90 mg Latanoprost (Xalatan 0.005% Eye Drops -) 1 drop OU HS [facility] Last Admin: 03/18/19 21:38 Dose: 1 drop Levothyroxine Sodium (Synthroid -) 50 mcg PO AM [facility] Last Admin: 03/19/19 06:39 Dose: 50 mcg Lidocaine (Lidoderm Patch -) 1 patch TP DAILY PRN PRN Reason: LOWER BACK PAIN Miscellaneous (Lidoderm Patch Removal) 1 each MC DAILY@2200 [facility] Last Admin: 03/18/19 21:39 Dose: 1 each Polyethylene Glycol (Miralax (For Daily Use) -) 17 gm PO DAILY [facility] Last Admin: 03/18/19 09:25 Dose: 17 gm Ranitidine HCl (Zantac -) 150 mg PO BID [facility] Last Admin: 03/18/19 21:33 Dose: 150 mg Tamsulosin HCl (Flomax -) 0.4 mg PO DAILY@0830 [facility] Last Admin: 03/18/19 07:56 Dose: 0.4 mg - Objective Vital Signs: Vital Signs Temperature 98.3 F 03/19/19 06:00 Pulse Rate 66 03/19/19 06:00 Respiratory Rate 18 03/19/19 09:00 Blood Pressure 124/78 03/19/19 06:00 O2 Sat by Pulse Oximetry (%) 100 03/19/19 09:00 Constitutional: Yes: No Distress, Calm Cardiovascular: Yes: Regular Rate and Rhythm, S1, S2 Respiratory: Yes: Regular, CTA Bilaterally, Other (coarse BS at bases) Gastrointestinal: Yes: Normal Bowel Sounds, Soft, Tenderness Extremities: Yes: Other (left foot with 3 cm soft mass over 3-rd and 4-th distal metatarsals, painful to palpations, slightly warm, no discharge) Edema: No Labs: CBC, BMP 03/17/19 05:45 03/19/19 05:25 - ....Imaging Cat Scan: Report Reviewed (of leftfoot (raisisng the possibility of abscess)) Problem List - Problems (1) Acute on chronic respiratory failure with hypoxia and hypercapnia Code(s): J96.21 - ACUTE AND CHRONIC RESPIRATORY FAILURE WITH HYPOXIA; J96.22 - ACUTE AND CHRONIC RESPIRATORY FAILURE WITH HYPERCAPNIA (2) ANDRÉS (acute kidney injury) Code(s): N17.9 - ACUTE KIDNEY FAILURE, UNSPECIFIED (3) CRF (chronic renal failure) Code(s): N18.9 - CHRONIC KIDNEY DISEASE, UNSPECIFIED Qualifiers: Chronic kidney disease stage: stage 4 (severe) Qualified Code(s): N18.4 - Chronic kidney disease, stage 4 (severe) (4) Hyperkalemia Code(s): E87.5 - HYPERKALEMIA (5) Fall Code(s): W19.XXXA - UNSPECIFIED FALL, INITIAL ENCOUNTER Qualifiers: Encounter type: initial encounter Qualified Code(s): W19.XXXA - Unspecified fall, initial encounter (6) CAD (coronary artery disease) Code(s): I25.10 - ATHSCL HEART DISEASE OF [place] CORONARY ARTERY W/O ANG PCTRS Qualifiers: Coronary Disease-Associated Artery/Lesion type: [place] artery [place] vs. 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: unspecified half-way insulin use status Diabetes mellitus complication status : with other specified complication Qualified Code(s): E11.69 - Type 2 diabetes mellitus with other specified complication (8) Foot trauma Code(s): S99.929A - UNSPECIFIED INJURY OF UNSPECIFIED FOOT, INITIAL ENCOUNTER (9) Elevated liver enzymes Code(s): R74.8 - ABNORMAL LEVELS OF OTHER SERUM ENZYMES (10) UTI (urinary tract infection) Code(s): N39.0 - URINARY TRACT INFECTION, SITE NOT SPECIFIED Qualifiers: Urinary tract infection type: site unspecified Hematuria presence: without hematuria Qualified Code(s): N39.0 - Urinary tract infection, site not specified Assessment/Plan Admitted to ICU then transferred to 4W Surgical consult to evaluate for possible left foot abscess. On BIPAP at night and PRN. Finished Ceftriaxone for UTI. Lasix was changed to PO daily. CCM/ Pulm, Cardio, Neuro, Renal, ID, [place] consults are appreciated. DVT proph OOBTC with assistance; to use ortho shoes. Pt's care was d/w pt's nurse.
[2019-03-19] MEDS ORDERED: DEXTROSE 5%-WATER - 50 ML IVPB ONE (11:04)
[2019-03-19] MEDS ORDERED: cefTRIAXone SODIUM 1 GM VIAL ONE (11:04)
[2019-03-19] MEDS: RANITIDINE HCL 150 MG TABLET (FP) PO SCH ×2 (11:09→21:59)
[2019-03-19] MEDS: TAMSULOSIN HCL 0.4 MG CAP PO SCH (11:09)
[2019-03-19] MEDS: ASPIRIN COATED 81 MG TABLET.EC PO SCH (11:09)
[2019-03-19] MEDS: HEPARIN NA (PORCINE) 5,000 UNITS/ML 1ML VIAL SQ SCH (11:09)
[2019-03-19] MEDS: ARTIFICIAL TEARS (POLYVINYL ALCOHOL) OPTH DROPS OU SCH ×2 (11:10→22:05)
[2019-03-19] MEDS: CARVEDILOL 12.5 MG TABLET (FP) PO SCH ×2 (11:10→21:59)
[2019-03-19] MEDS: ALLOPURINOL 100 MG TABLET (FP) PO SCH (11:10)
[2019-03-19] MEDS: ISOSORBIDE MONONITRATE 30 MG TAB.SR.24H (FP) PO SCH (11:10)
[2019-03-19] MEDS: CEFTRIAXONE 1 GM in DEXTROSE 5%-WATER - 50 ML IVPB SCH (11:11)
[2019-03-19] MEDS: POLYETHYLENE GLYCOL 3350 119 GM BTL PO SCH (11:11)
--- NOTE | 2019-03-19 11:11 | CONSULT ---
- Consultation REQUESTING PROVIDER: CONSULT REQUEST: We have been asked to surgically evaluate this patient for left foot pain/abscess. PCP:Kell Sunshine HISTORY OF PRESENT ILLNESS: 83 y/o F w/ PMH HTN, type 2 DM, hypercholesterolemia , LV diastolic dysfunction with h/o failure, osteoarthritis, hypothyroidism, diverticular disease, duodenitis, CKD 4 (baseline Cr ~2), cervical radiculopathy a/w confusion, fall and diarrhea. Pt and daughter state pt had mechanical fall at home over 2 weeks ago and began having pain in her left foot. Does not recall injuring her foot during the fall, however notes ecchymosis immediately after with formation of a "lump" over her forefoot approximately a week ago. Reports pain with palpation of the area. has not been oob ambulating due to weakness. Denies h/o vascular disease, tobacco abuse, claudication/rest pain, nonhealing lower extremity wounds. At baseline pt lives home with who is "very functional" per pts daughter. Pt ambulates with walker around the home. Is able to perform some ADLS. PMHx: as above PSHx: Yes: Hysterectomy (BRAXTON, BSO in 1981), Oopherectomy Home Medications Medication Instructions Recorded Aspirin Coated [Ecotrin -] 81 mg PO DAILY #30 tablet.ec 07/09/16 Levothyroxine [Synthroid -] 50 mcg PO DAILY #90 tablet 07/09/16 Allopurinol [Zyloprim -] 100 mg PO DAILY 10/02/17 Atorvastatin Ca [Lipitor] 20 mg PO HS 10/02/17 Gabapentin [Neurontin -] 300 mg PO HS 10/02/17 Acetaminophen [Tylenol 500 mg PO Q6H PRN tablet 11/12/17 .Extra-Strength -] Tamsulosin HCl [Flomax -] 0.4 mg PO DAILY@0830 #90 cap.er.24h 11/12/17 Bisacodyl [Bisacodyl -] 5 mg PO ASDIR 11/26/18 Carvedilol [Coreg -] 12.5 mg PO BID 11/26/18 Cinacalcet HCl [Sensipar] 30 mg PO DAILY 11/26/18 Hydralazine HCl 50 mg PO TID 11/26/18 Isosorbide Mononitrate [Imdur -] 90 mg PO DAILY 11/26/18 Latanoprost/Pf [Latanoprost 0.005% 1 drp OP DAILY 11/26/18 Eye Drop] Polyethylene Glycol 3350 [Miralax 17 gm PO DAILY 11/26/18 119 gm Btl -] Potassium Chloride 20 meq PO BID 11/26/18 Ranitidine HCl [Zantac] 150 mg PO BID 11/26/18 Insulin (Levemir) [Levemir Vial] 18 units SQ HS units 12/08/18 Furosemide 100 mg PO BID 02/05/19 Colchicine [Colcrys] 0.6 mg PO BID cap 02/09/19 Allergies Allergy/AdvReac Type Severity Reaction Status Date / Time No Known Allergies Allergy Verified 03/07/19 12:29 REVIEW OF SYSTEMS: CONSTITUTIONAL: Absent: fever, chills CARDIOVASCULAR: Absent: chest pain RESPIRATORY: Absent: cough GASTROINTESTINAL: Absent: abdominal pain PHYSICAL EXAM: GENERAL: Awake, alert, and fully oriented, in no acute distress. HEAD: Normal with no signs of trauma. LOWER EXTREMITIES: Left foot with approx 2x2cm mass. Outer region indurated, semi-fluctuate centrally. ++TTP. no erythema, no notable ecchymosis (resolved per pt and daughter). No ulcerations or lesions on either foot. Vasc: 2+ dp/pt b/l. Vital Signs Temperature 98.3 F 03/19/19 06:00 Pulse Rate 66 03/19/19 06:00 Respiratory Rate 18 03/19/19 09:00 Blood Pressure 124/78 03/19/19 06:00 O2 Sat by Pulse Oximetry (%) 100 03/19/19 09:00 Lab Results WBC 9.9 K/mm3 (4.0-10.0) 03/17/19 05:45 RBC 3.38 M/mm3 (3.60-5.2) L 03/17/19 05:45 Hgb 9.7 GM/dL (10.7-15.3) L 03/17/19 05:45 Hct 29.8 % (32.4-45.2) L 03/17/19 05:45 MCV 88.1 fl (80-96) 03/17/19 05:45 MCHC 32.6 g/dl (32.0-36.0) 03/17/19 05:45 RDW 17.9 % (11.6-15.6) H 03/17/19 05:45 Plt Count 216 K/MM3 (134-434) 03/17/19 05:45 Sodium 139 mmol/L (136-145) 03/19/19 05:25 Potassium 5.1 mmol/L (3.5-5.1) 03/19/19 05:25 Chloride 98 mmol/L (98-107) 03/19/19 05:25 Carbon Dioxide 41 mmol/L (21-32) H 03/19/19 05:25 Anion Gap 0 MMOL/L (8-16) L 03/19/19 05:25 BUN 55.4 mg/dL (7-18) H 03/19/19 05:25 Creatinine 1.4 mg/dL (0.55-1.3) H 03/19/19 05:25 Random Glucose 111 mg/dL (74-106) H 03/19/19 05:25 Calcium 10.7 mg/dL (8.5-10.1) H 03/19/19 05:25 CT Lower Extremity W/O contrast (03/18): No evidence of fracture or acute bony abnormalities. Hyperdense, subcutaneous fluid collection lateral aspect dorsal surface of the lateral foot suspicious for hematoma or abscess. A/P: 83 y/o F w/ PMH HTN, type 2 DM, hypercholesterolemia, LV diastolic dysfunction with h/o failure, osteoarthritis, hypothyroidism, diverticular disease, duodenitis, CKD 4 (baseline Cr ~2), cervical radiculopathy a/w confusion, fall and diarrhea. Vascular consulted for L foot pain. Pt with resolving L foot hematoma s/p fall at home 2 weeks ago. No clinical signs of infection. Pt with Diabetes. Recommend warm compresses and LE elevation while at rest. If no improvement in next 72 hours, reconsult. d/w attending Dr Anderson
--- NOTE | 2019-03-19 11:16 | PN ---
Progress Note, Physician History of Present Illness: pulmonary awake,comfortable,-resp distress - Current Medication List Current Medications: Active Medications Acetaminophen (Tylenol -) 650 mg PO Q4H PRN PRN Reason: PAIN LEVEL 1-5 Last Admin: 03/17/19 21:44 Dose: 650 mg Allopurinol (Zyloprim -) 100 mg PO DAILY [facility] Last Admin: 03/19/19 11:10 Dose: 100 mg Artificial Tears (Artificial Tears) 1 drop OU BID [facility] Last Admin: 03/19/19 11:10 Dose: 1 drop Aspirin (Ecotrin -) 81 mg PO DAILY [facility] Last Admin: 03/19/19 11:09 Dose: 81 mg Atorvastatin Calcium (Lipitor -) 20 mg PO HS [facility] Last Admin: 03/18/19 21:33 Dose: 20 mg Bisacodyl (Dulcolax -) 5 mg PO HS PRN PRN Reason: CONSTIPATION Carvedilol (Coreg -) 12.5 mg PO BID [facility] Last Admin: 03/19/19 11:10 Dose: 12.5 mg Furosemide (Lasix -) 80 mg PO DAILY@0600 [facility] Last Admin: 03/19/19 06:39 Dose: 80 mg Gabapentin (Neurontin -) 300 mg PO HS [facility] Last Admin: 03/18/19 21:33 Dose: 300 mg Heparin Sodium (Porcine) (Heparin -) 5,000 unit SQ BID [facility] Last Admin: 03/19/19 11:09 Dose: 5,000 unit Ceftriaxone Sodium 1 gm/ (Dextrose) 50 mls @ 100 mls/hr IVPB DAILY [facility]; Protocol Last Admin: 03/19/19 11:11 Dose: 100 mls/hr Insulin Aspart (Novolog Vial Sliding Scale -) 1 vial SQ ACHS [facility]; Protocol Last Admin: 03/19/19 06:39 Dose: Not Given Insulin Detemir (Levemir Vial) 18 units SQ HS [facility] Last Admin: 03/18/19 21:33 Dose: 18 units Isosorbide Mononitrate (Imdur -) 90 mg PO DAILY [facility] Last Admin: 03/19/19 11:10 Dose: 90 mg Latanoprost (Xalatan 0.005% Eye Drops -) 1 drop OU HS [facility] Last Admin: 03/18/19 21:38 Dose: 1 drop Levothyroxine Sodium (Synthroid -) 50 mcg PO AM [facility] Last Admin: 03/19/19 06:39 Dose: 50 mcg Lidocaine (Lidoderm Patch -) 1 patch TP DAILY PRN PRN Reason: LOWER BACK PAIN Miscellaneous (Lidoderm Patch Removal) 1 each MC DAILY@2200 [facility] Last Admin: 03/18/19 21:39 Dose: 1 each Polyethylene Glycol (Miralax (For Daily Use) -) 17 gm PO DAILY [facility] Last Admin: 03/19/19 11:11 Dose: Not Given Ranitidine HCl (Zantac -) 150 mg PO BID [facility] Last Admin: 03/19/19 11:09 Dose: 150 mg Tamsulosin HCl (Flomax -) 0.4 mg PO DAILY@0830 [facility] Last Admin: 03/19/19 11:09 Dose: 0.4 mg - Objective Vital Signs: Vital Signs Temperature 98.3 F 03/19/19 06:00 Pulse Rate 66 03/19/19 06:00 Respiratory Rate 18 03/19/19 09:00 Blood Pressure 124/78 03/19/19 06:00 O2 Sat by Pulse Oximetry (%) 100 03/19/19 09:00 Constitutional: Yes: Well Nourished, Calm Eyes: Yes: WNL HENT: Yes: WNL Neck: Yes: WNL Cardiovascular: Yes: Regular Rate and Rhythm, S1, S2 Respiratory: Yes: Rales (bibasasilar rales) Gastrointestinal: Yes: Normal Bowel Sounds, Soft Extremities: Yes: WNL Edema: No Labs: CBC, BMP 03/19/19 05:25 Laboratory Tests 03/18/19 11:20 ABG pH 7.38 ABG pCO2 at Pt Temp 70.3 H* ABG pO2 at Pt Temp 151 H ABG HCO3 40.2 H ABG O2 Sat (Measured) 99.4 H Oxygen Flow Rate [id number] Problem List - Problems (1) Acute on chronic respiratory failure with hypoxia and hypercapnia Code(s): J96.21 - ACUTE AND CHRONIC RESPIRATORY FAILURE WITH HYPOXIA; J96.22 - ACUTE AND CHRONIC RESPIRATORY FAILURE WITH HYPERCAPNIA (2) CHF exacerbation Code(s): I50.9 - HEART FAILURE, UNSPECIFIED Qualifiers: Qualified Code(s): I50.9 - Heart failure, unspecified (3) Anemia Code(s): D64.9 - ANEMIA, UNSPECIFIED (4) Bilateral lower extremity edema Code(s): R60.0 - LOCALIZED EDEMA (5) CAD (coronary artery disease) Code(s): I25.10 - ATHSCL HEART DISEASE OF [place] CORONARY ARTERY W/O ANG PCTRS (6) CHF (congestive heart failure) Code(s): I50.9 - HEART FAILURE, UNSPECIFIED (7) CRF (chronic renal failure) Code(s): N18.9 - CHRONIC KIDNEY DISEASE, UNSPECIFIED Qualifiers: Qualified Code(s): N18.4 - Chronic kidney disease, stage 4 (severe) (8) Diabetes mellitus Code(s): E11.9 - TYPE 2 DIABETES MELLITUS WITHOUT COMPLICATIONS Qualifiers: Qualified Code(s): E11.69 - Type 2 diabetes mellitus with other specified complication (9) Hypertension Code(s): I10 - ESSENTIAL (PRIMARY) HYPERTENSION Qualifiers: Qualified Code(s): I10 - Essential (primary) hypertension (10) CHF exacerbation Code(s): I50.9 - HEART FAILURE, UNSPECIFIED (11) Dyspnea Code(s): R06.00 - DYSPNEA, UNSPECIFIED Qualifiers: Qualified Code(s): R06.09 - Other forms of dyspnea Assessment/Plan IMP ACUTE ON CHRONIC HYPOXEMIC /HYPERCAPNEIC RESPIRATORY FAILURE ACUTE ON CHRONIC CHF ACUTE ON CKD HTN HLD DM ASHD SUSPECTED [place] PLAN LASIX O2 BIPAP NEEDED pt has been refusing MONITOR LYTES,RENAL FUNCTION F/U CHEST X-RAYS DAILY WTS OUTPATIENT SLEEP STUDIES MONITOR LYTES CONSIDER TRIOLGY DEVICE AT HOME DR DUBOIS Problem List - Problems (1) Acute on chronic respiratory failure with hypoxia and hypercapnia Code(s): J96.21 - ACUTE AND CHRONIC RESPIRATORY FAILURE WITH HYPOXIA; J96.22 - ACUTE AND CHRONIC RESPIRATORY FAILURE WITH HYPERCAPNIA (2) CHF exacerbation Code(s): I50.9 - HEART FAILURE, UNSPECIFIED Qualifiers: Heart failure type: unspecified Qualified Code(s): I50.9 - Heart failure, unspecified (3) Anemia Code(s): D64.9 - ANEMIA, UNSPECIFIED (4) Bilateral lower extremity edema Code(s): R60.0 - LOCALIZED EDEMA (5) CAD (coronary artery disease) Code(s): I25.10 - ATHSCL HEART DISEASE OF [place] CORONARY ARTERY W/O ANG PCTRS Qualifiers: Coronary Disease-Associated Artery/Lesion type: [place] artery (6) CHF (congestive heart failure) Code(s): I50.9 - HEART FAILURE, UNSPECIFIED (7) CRF (chronic renal failure) Code(s): N18.9 - CHRONIC KIDNEY DISEASE, UNSPECIFIED Qualifiers: Chronic kidney disease stage: stage 4 (severe) Qualified Code(s): N18.4 - Chronic kidney disease, stage 4 (severe) (8) Diabetes mellitus Code(s): E11.9 - TYPE 2 DIABETES MELLITUS WITHOUT COMPLICATIONS Qualifiers: Diabetes mellitus type: type 2 Diabetes mellitus [employer] insulin use: unspecified [employer] insulin use status Diabetes mellitus complication status : with other specified complication Qualified Code(s): E11.69 - Type 2 diabetes mellitus with other specified complication (9) Hypertension Code(s): I10 - ESSENTIAL (PRIMARY) HYPERTENSION Qualifiers: Hypertension type: unspecified Qualified Code(s): I10 - Essential (primary ) hypertension (10) CHF exacerbation Code(s): I50.9 - HEART FAILURE, UNSPECIFIED (11) Dyspnea Code(s): R06.00 - DYSPNEA, UNSPECIFIED Qualifiers: Dyspnea type: other forms of dyspnea Qualified Code(s): R06.09 - Other forms of dyspnea
--- NOTE | 2019-03-19 11:56 | PN ---
Progress Note, Physician History of Present Illness: stable no new issues - Current Medication List Current Medications: Active Medications Acetaminophen (Tylenol -) 650 mg PO Q4H PRN PRN Reason: PAIN LEVEL 1-5 Last Admin: 03/17/19 21:44 Dose: 650 mg Allopurinol (Zyloprim -) 100 mg PO DAILY [facility] Last Admin: 03/19/19 11:10 Dose: 100 mg Artificial Tears (Artificial Tears) 1 drop OU BID [facility] Last Admin: 03/19/19 11:10 Dose: 1 drop Aspirin (Ecotrin -) 81 mg PO DAILY [facility] Last Admin: 03/19/19 11:09 Dose: 81 mg Atorvastatin Calcium (Lipitor -) 20 mg PO HS [facility] Last Admin: 03/18/19 21:33 Dose: 20 mg Bisacodyl (Dulcolax -) 5 mg PO HS PRN PRN Reason: CONSTIPATION Carvedilol (Coreg -) 12.5 mg PO BID [facility] Last Admin: 03/19/19 11:10 Dose: 12.5 mg Furosemide (Lasix -) 80 mg PO DAILY@0600 [facility] Last Admin: 03/19/19 06:39 Dose: 80 mg Gabapentin (Neurontin -) 300 mg PO HS [facility] Last Admin: 03/18/19 21:33 Dose: 300 mg Heparin Sodium (Porcine) (Heparin -) 5,000 unit SQ BID [facility] Last Admin: 03/19/19 11:09 Dose: 5,000 unit Ceftriaxone Sodium 1 gm/ (Dextrose) 50 mls @ 100 mls/hr IVPB DAILY [facility]; Protocol Last Admin: 03/19/19 11:11 Dose: 100 mls/hr Insulin Aspart (Novolog Vial Sliding Scale -) 1 vial SQ [facility]; Protocol Last Admin: 03/19/19 06:39 Dose: Not Given Insulin Detemir (Levemir Vial) 18 units SQ HS [facility] Last Admin: 03/18/19 21:33 Dose: 18 units Isosorbide Mononitrate (Imdur -) 90 mg PO DAILY [facility] Last Admin: 03/19/19 11:10 Dose: 90 mg Latanoprost (Xalatan 0.005% Eye Drops -) 1 drop OU HS [facility] Last Admin: 03/18/19 21:38 Dose: 1 drop Levothyroxine Sodium (Synthroid -) 50 mcg PO AM [facility] Last Admin: 03/19/19 06:39 Dose: 50 mcg Lidocaine (Lidoderm Patch -) 1 patch TP DAILY PRN PRN Reason: LOWER BACK PAIN Miscellaneous (Lidoderm Patch Removal) 1 each MC DAILY@2200 [facility] Last Admin: 03/18/19 21:39 Dose: 1 each Polyethylene Glycol (Miralax (For Daily Use) -) 17 gm PO DAILY [facility] Last Admin: 03/19/19 11:11 Dose: Not Given Ranitidine HCl (Zantac -) 150 mg PO BID [facility] Last Admin: 03/19/19 11:09 Dose: 150 mg Tamsulosin HCl (Flomax -) 0.4 mg PO DAILY@0830 [facility] Last Admin: 03/19/19 11:09 Dose: 0.4 mg - Objective Vital Signs: Vital Signs Temperature 98.3 F 03/19/19 06:00 Pulse Rate 66 03/19/19 06:00 Respiratory Rate 18 03/19/19 09:00 Blood Pressure 124/78 03/19/19 06:00 O2 Sat by Pulse Oximetry (%) 100 03/19/19 09:00 Constitutional: Yes: Calm, Mild Distress Cardiovascular: Yes: S1, S2 Respiratory: Yes: Regular, CTA Bilaterally Gastrointestinal: Yes: Normal Bowel Sounds, Soft Musculoskeletal: Yes: Back Pain Extremities: Yes: Other Labs: CBC, BMP 03/17/19 05:45 03/19/19 05:25 Assessment/Plan Problem List - Problems (1) Acute on chronic respiratory failure with hypoxia and hypercapnia Code(s): J96.21 - ACUTE AND CHRONIC RESPIRATORY FAILURE WITH HYPOXIA; J96.22 - ACUTE AND CHRONIC RESPIRATORY FAILURE WITH HYPERCAPNIA (2) ANDRÉS (acute kidney injury) Code(s): N17.9 - ACUTE KIDNEY FAILURE, UNSPECIFIED (3) CRF (chronic renal failure) Code(s): N18.9 - CHRONIC KIDNEY DISEASE, UNSPECIFIED Qualifiers: Chronic kidney disease stage: stage 4 (severe) Qualified Code(s): N18.4 - Chronic kidney disease, stage 4 (severe) (4) Hyperkalemia Code(s): E87.5 - HYPERKALEMIA (5) Fall Code(s): W19.XXXA - UNSPECIFIED FALL, INITIAL ENCOUNTER Qualifiers: Encounter type: initial encounter Qualified Code(s): W19.XXXA - Unspecified fall, initial encounter (6) CAD (coronary artery disease) Code(s): I25.10 - ATHSCL HEART DISEASE OF [place] CORONARY ARTERY W/O ANG PCTRS Qualifiers: Coronary Disease-Associated Artery/Lesion type: [place] artery [place] vs. transplanted heart: [place] heart Associated angina: with unspecified angina Qualified Code(s): I25.119 - Atherosclerotic heart disease of [place] coronary artery with unspecified angina pectoris (7) Diabetes mellitus Code(s): E11.9 - TYPE 2 DIABETES MELLITUS WITHOUT COMPLICATIONS Qualifiers: Diabetes mellitus type: type 2 Diabetes mellitus retirement insulin use: unspecified retirement insulin use status Diabetes mellitus complication status : with other specified complication Qualified Code(s): E11.69 - Type 2 diabetes mellitus with other specified complication (8) Foot trauma Code(s): S99.929A - UNSPECIFIED INJURY OF UNSPECIFIED FOOT, INITIAL ENCOUNTER plan continue current mgmt physio finish 2 weeks of oral vanco rest as per the team
--- NOTE | 2019-03-19 12:37 | PN ---
Progress Note, Physician Chief Complaint: Events noted Not in distress History of Present Illness: Patient was seen and examined. Awake. Chart was reviewed Denies chest pain, SOB or palpitations Left foot pain - Current Medication List Current Medications: Active Medications Acetaminophen (Tylenol -) 650 mg PO Q4H PRN PRN Reason: PAIN LEVEL 1-5 Last Admin: 03/17/19 21:44 Dose: 650 mg Allopurinol (Zyloprim -) 100 mg PO DAILY [facility] Last Admin: 03/19/19 11:10 Dose: 100 mg Artificial Tears (Artificial Tears) 1 drop OU BID [facility] Last Admin: 03/19/19 11:10 Dose: 1 drop Aspirin (Ecotrin -) 81 mg PO DAILY [facility] Last Admin: 03/19/19 11:09 Dose: 81 mg Atorvastatin Calcium (Lipitor -) 20 mg PO HS [facility] Last Admin: 03/18/19 21:33 Dose: 20 mg Bisacodyl (Dulcolax -) 5 mg PO HS PRN PRN Reason: CONSTIPATION Carvedilol (Coreg -) 12.5 mg PO BID [facility] Last Admin: 03/19/19 11:10 Dose: 12.5 mg Furosemide (Lasix -) 80 mg PO DAILY@0600 [facility] Last Admin: 03/19/19 06:39 Dose: 80 mg Gabapentin (Neurontin -) 300 mg PO HS [facility] Last Admin: 03/18/19 21:33 Dose: 300 mg Heparin Sodium (Porcine) (Heparin -) 5,000 unit SQ BID [facility] Last Admin: 03/19/19 11:09 Dose: 5,000 unit Insulin Aspart (Novolog Vial Sliding Scale -) 1 vial SQ [facility]; Protocol Last Admin: 03/19/19 06:39 Dose: Not Given Insulin Detemir (Levemir Vial) 18 units SQ [facility] Last Admin: 03/18/19 21:33 Dose: 18 units Isosorbide Mononitrate (Imdur -) 90 mg PO DAILY [facility] Last Admin: 03/19/19 11:10 Dose: 90 mg Latanoprost (Xalatan 0.005% Eye Drops -) 1 drop OU HS [facility] Last Admin: 03/18/19 21:38 Dose: 1 drop Levothyroxine Sodium (Synthroid -) 50 mcg PO AM [facility] Last Admin: 03/19/19 06:39 Dose: 50 mcg Lidocaine (Lidoderm Patch -) 1 patch TP DAILY PRN PRN Reason: LOWER BACK PAIN Miscellaneous (Lidoderm Patch Removal) 1 each MC DAILY@2200 [facility] Last Admin: 03/18/19 21:39 Dose: 1 each Polyethylene Glycol (Miralax (For Daily Use) -) 17 gm PO DAILY [facility] Last Admin: 03/19/19 11:11 Dose: Not Given Ranitidine HCl (Zantac -) 150 mg PO BID [facility] Last Admin: 03/19/19 11:09 Dose: 150 mg Tamsulosin HCl (Flomax -) 0.4 mg PO DAILY@0830 [facility] Last Admin: 03/19/19 11:09 Dose: 0.4 mg - Objective Vital Signs: Vital Signs Temperature 98.3 F 03/19/19 06:00 Pulse Rate 66 03/19/19 06:00 Respiratory Rate 18 03/19/19 09:00 Blood Pressure 124/78 03/19/19 06:00 O2 Sat by Pulse Oximetry (%) 100 03/19/19 09:00 Eyes: Yes: PERRL HENT: Yes: Atraumatic Neck: Yes: Supple Cardiovascular: Yes: Regular Rate and Rhythm, S1, S2 Respiratory: Yes: Diminished Gastrointestinal: Yes: Normal Bowel Sounds, Soft. No: Tenderness Edema: No Additional Findings/Remarks: - Review of Systems Constitutional: denies: Chills, Fever Cardiovascular: denies Chest Pain. denies: Palpitations, Shortness of Breath Respiratory: denies: Cough, Hemoptysis, Orthopnea, PND, SOB, SOB on Exertion Gastrointestinal: denies: Abdominal Pain, Constipation, Diarrhea, Melena, Nausea , Rectal Bleeding, Vomiting Neurological: denies Dizziness, Headache. denies: Seizure, Syncope Labs: CBC, BMP 03/17/19 05:45 03/19/19 05:25 Problem List - Problems (1) Acute on chronic respiratory failure with hypercapnia Code(s): J96.22 - ACUTE AND CHRONIC RESPIRATORY FAILURE WITH HYPERCAPNIA (2) Acute on chronic respiratory failure with hypoxia and hypercapnia Code(s): J96.21 - ACUTE AND CHRONIC RESPIRATORY FAILURE WITH HYPOXIA; J96.22 - ACUTE AND CHRONIC RESPIRATORY FAILURE WITH HYPERCAPNIA (3) CHF exacerbation Code(s): I50.9 - HEART FAILURE, UNSPECIFIED Qualifiers: Heart failure type: unspecified Qualified Code(s): I50.9 - Heart failure, unspecified (4) ANDRÉS (acute kidney injury) Code(s): N17.9 - ACUTE KIDNEY FAILURE, UNSPECIFIED (5) Anemia Code(s): D64.9 - ANEMIA, UNSPECIFIED (6) CAD (coronary artery disease) Code(s): I25.10 - ATHSCL HEART DISEASE OF [place] CORONARY ARTERY W/O ANG PCTRS Qualifiers: Coronary Disease-Associated Artery/Lesion type: [place] artery (7) CRF (chronic renal failure) Code(s): N18.9 - CHRONIC KIDNEY DISEASE, UNSPECIFIED (8) Diabetes mellitus Code(s): E11.9 - TYPE 2 DIABETES MELLITUS WITHOUT COMPLICATIONS Qualifiers: Diabetes mellitus type: type 2 Diabetes mellitus long term care pharmacist insulin use: unspecified [place] insulin use status Diabetes mellitus complication status : with other specified complication Qualified Code(s): E11.69 - Type 2 diabetes mellitus with other specified complication (9) Weakness Code(s): R53.1 - WEAKNESS (10) Hyperlipidemia Code(s): E78.5 - HYPERLIPIDEMIA, UNSPECIFIED Qualifiers: Hyperlipidemia type: pure hypercholesterolemia Qualified Code(s): E78.00 - Pure hypercholesterolemia, unspecified; E78.0 - Pure hypercholesterolemia (11) Hypertension Code(s): I10 - ESSENTIAL (PRIMARY) HYPERTENSION Qualifiers: Hypertension type: unspecified Qualified Code(s): I10 - Essential (primary ) hypertension (12) Hypothyroidism Code(s): E03.9 - HYPOTHYROIDISM, UNSPECIFIED Qualifiers: Hypothyroidism type: unspecified Qualified Code(s): E03.9 - Hypothyroidism , unspecified Assessment/Plan 1. Acute on chronic hypoxemic/hypercapneic respiratory failure post fall 2. Acute on chronic LV diastolic failure 3. CAD - non-obstructive, angina pectoris 4. HTN 5. Hypercholesterolemia 6. Type 2 DM 7. Hypothyroidism 8. Acute on CKD stage 4, prerenal azotemia 9. Hypovolemic hyponatremia and hypokalemia 10. Spinal stenosis and cervical radiculopathy 11. Anemia 12. OSAS suspect 13. Left foot contusion PLAN: 1. Continue Lasix 80 mg QD with monitoring renal function and electrolytes 2. Continue ASA 81 mg QD, Carvedilol 12.5 mg BID, Lipitor 20 mg QHS, Imdur 90 mg QD and Hydralazine 50 mg TID as tolerated 3. Ideally addition of CHRISTINE inhibitor or angiotensin receptor rayo (ARB) therapy is recommended once renal function stabilizes 4. GI and DVT prophylaxis Further plans are to follow. May transfer to floor care Apollo Kiser MD
[2019-03-19] MEDS ORDERED: EPOETIN ALFA 20,000 UNIT/1 ML VIAL SQ ONE (14:15)
--- NOTE | 2019-03-19 14:15 | PN ---
Progress Note (short form) - Note Progress Note: Renal follow up for CKD Seen and examined at the bedside feels better, foot pain continues denies any sob, chest pain, fever or chills making urine tolerating oral diet Vital Signs Temperature 98.3 F 03/19/19 06:00 Pulse Rate 66 03/19/19 06:00 Respiratory Rate 18 03/19/19 09:00 Blood Pressure 124/78 03/19/19 06:00 O2 Sat by Pulse Oximetry (%) 100 03/19/19 09:00 Intake & Output 03/16/19 03/17/19 03/18/19 03/19/19 23:59 23:59 23:59 23:59 Intake Total 890 920 200 Output Total 1800 900 800 Balance 890 -1800 20 -600 Weight 76.839 kg 74.571 kg on NC O2 no acute distress trace edema in LE CBC, BMP 03/17/19 05:45 03/19/19 05:25 Current Medications Acetaminophen (Tylenol -) 650 mg PO Q4H PRN PRN Reason: PAIN LEVEL 1-5 Last Admin: 03/17/19 21:44 Dose: 650 mg Allopurinol (Zyloprim -) 100 mg PO DAILY [facility] Last Admin: 03/19/19 11:10 Dose: 100 mg Artificial Tears (Artificial Tears) 1 drop OU BID [facility] Last Admin: 03/19/19 11:10 Dose: 1 drop Aspirin (Ecotrin -) 81 mg PO DAILY [facility] Last Admin: 03/19/19 11:09 Dose: 81 mg Atorvastatin Calcium (Lipitor -) 20 mg PO HS [facility] Last Admin: 03/18/19 21:33 Dose: 20 mg Bisacodyl (Dulcolax -) 5 mg PO HS PRN PRN Reason: CONSTIPATION Carvedilol (Coreg -) 12.5 mg PO BID [facility] Last Admin: 03/19/19 11:10 Dose: 12.5 mg Furosemide (Lasix -) 80 mg PO DAILY@0600 [facility] Last Admin: 03/19/19 06:39 Dose: 80 mg Gabapentin (Neurontin -) 300 mg PO HS [facility] Last Admin: 03/18/19 21:33 Dose: 300 mg Heparin Sodium (Porcine) (Heparin -) 5,000 unit SQ BID [facility] Last Admin: 03/19/19 11:09 Dose: 5,000 unit Insulin Aspart (Novolog Vial Sliding Scale -) 1 vial SQ [facility]; Protocol Last Admin: 03/19/19 06:39 Dose: Not Given Insulin Detemir (Levemir Vial) 18 units SQ HS [facility] Last Admin: 03/18/19 21:33 Dose: 18 units Isosorbide Mononitrate (Imdur -) 90 mg PO DAILY [facility] Last Admin: 03/19/19 11:10 Dose: 90 mg Latanoprost (Xalatan 0.005% Eye Drops -) 1 drop OU HS [facility] Last Admin: 03/18/19 21:38 Dose: 1 drop Levothyroxine Sodium (Synthroid -) 50 mcg PO AM [facility] Last Admin: 03/19/19 06:39 Dose: 50 mcg Lidocaine (Lidoderm Patch -) 1 patch TP DAILY PRN PRN Reason: LOWER BACK PAIN Miscellaneous (Lidoderm Patch Removal) 1 each MC DAILY@2200 [facility] Last Admin: 03/18/19 21:39 Dose: 1 each Polyethylene Glycol (Miralax (For Daily Use) -) 17 gm PO DAILY [facility] Last Admin: 03/19/19 11:11 Dose: Not Given Ranitidine HCl (Zantac -) 150 mg PO BID [facility] Last Admin: 03/19/19 11:09 Dose: 150 mg Tamsulosin HCl (Flomax -) 0.4 mg PO DAILY@0830 [facility] Last Admin: 03/19/19 11:09 Dose: 0.4 mg 83 year [place] with history of CKD stage 4 (baseline Cr ~2), DM Type 2, CHF with diastolic dysfunction, hypertension who presented from home with a fall and diarrhea. 1. CKD stage 4 2. Fall 3. Diarrhea r/o infectious etiology 4. CHF with diastolic dysfunction 5. Anemia 6. Hypertension 7. Compensated respiratory acidosis Renal function is stable Volume status is improved Continue Lasix 80mg daily Trend H/H, give Epogen 84516 units SC x 1 awaiting rehab placement pulmonary follow up Wm Tian DO
[2019-03-19] MEDS: INSULIN (LEVEMIR) 100 UNITS/ML UNITS SQ SCH (21:58)
[2019-03-19] MEDS: ATORVASTATIN CA 20 MG TABLET (FP) PO SCH (21:59)
[2019-03-19] MEDS: GABAPENTIN 300 MG CAPSULE (FP) PO SCH (21:59)
[2019-03-19] MEDS: LIDOCAINE PATCH REMOVAL MC SCH (22:00)
[2019-03-19] MEDS: LATANOPROST 0.005% OPHTH SOLN 2.5ML BOTTLE OU SCH (22:06)
[2019-03-20 05:57] VITALS: TEMP 98.1
[2019-03-20] MEDS: INSULIN SLIDING SCALE (NOVOLOG) 1 VIAL SQ SCH (06:39)
[2019-03-20] MEDS: LEVOTHYROXINE NA 50 MCG TABLET (FP) PO SCH (06:39)
[2019-03-20] MEDS: FUROSEMIDE 40 MG TABLET (FP) PO SCH (06:39)
[2019-03-20 06:56] LABS: CALCIUM 10.2 mg/dL (8.5-10.1); CREATININE 1.4 mg/dL (0.55-1.3); POTASSIUM 4.6 mmol/L (3.5-5.1)
[2019-03-20 09:11] VITALS: BP 122/74; PULSE 55
[2019-03-20] MEDS ORDERED: PT OWN MED DRAWER 7, Y5N ONE (10:05)
[2019-03-20] MEDS: TAMSULOSIN HCL 0.4 MG CAP PO SCH (10:56)
[2019-03-20] MEDS: ACETAMINOPHEN 325 MG TABLET (FP) PO PRN (10:56)
[2019-03-20] MEDS: CARVEDILOL 12.5 MG TABLET (FP) PO SCH (10:56)
[2019-03-20] MEDS: ALLOPURINOL 100 MG TABLET (FP) PO SCH (10:56)
[2019-03-20] MEDS: RANITIDINE HCL 150 MG TABLET (FP) PO SCH (10:56)
[2019-03-20] MEDS: ASPIRIN COATED 81 MG TABLET.EC PO SCH (10:56)
[2019-03-20] MEDS: ISOSORBIDE MONONITRATE 30 MG TAB.SR.24H (FP) PO SCH (10:57)
[2019-03-20] MEDS: ARTIFICIAL TEARS (POLYVINYL ALCOHOL) OPTH DROPS OU SCH (10:58)
[2019-03-20] MEDS: POLYETHYLENE GLYCOL 3350 119 GM BTL PO SCH (10:58)
--- NOTE | 2019-03-20 11:30 | PN ---
Progress Note, Physician History of Present Illness: PULMONARY ALERT,OOB-CHAIR,FEELING BETTER,-SOB AT REST - Current Medication List Current Medications: Active Medications Acetaminophen (Tylenol -) 650 mg PO Q4H PRN PRN Reason: PAIN LEVEL 1-5 Last Admin: 03/20/19 10:56 Dose: 650 mg Allopurinol (Zyloprim -) 100 mg PO DAILY [facility] Last Admin: 03/20/19 10:56 Dose: 100 mg Artificial Tears (Artificial Tears) 1 drop OU BID [facility] Last Admin: 03/20/19 10:58 Dose: 1 drop Aspirin (Ecotrin -) 81 mg PO DAILY [facility] Last Admin: 03/20/19 10:56 Dose: 81 mg Atorvastatin Calcium (Lipitor -) 20 mg PO HS [facility] Last Admin: 03/19/19 21:59 Dose: 20 mg Bisacodyl (Dulcolax -) 5 mg PO HS PRN PRN Reason: CONSTIPATION Carvedilol (Coreg -) 12.5 mg PO BID [facility] Last Admin: 03/20/19 10:56 Dose: 12.5 mg Furosemide (Lasix -) 80 mg PO DAILY@0600 [facility] Last Admin: 03/20/19 06:39 Dose: 80 mg Gabapentin (Neurontin -) 300 mg PO HS [facility] Last Admin: 03/19/19 21:59 Dose: 300 mg Insulin Aspart (Novolog Vial Sliding Scale -) 1 vial SQ [facility]; Protocol Last Admin: 03/20/19 06:39 Dose: Not Given Insulin Detemir (Levemir Vial) 18 units SQ [facility] Last Admin: 03/19/19 21:58 Dose: 18 units Isosorbide Mononitrate (Imdur -) 90 mg PO DAILY [facility] Last Admin: 03/20/19 10:57 Dose: 90 mg Latanoprost (Xalatan 0.005% Eye Drops -) 1 drop OU HS [facility] Last Admin: 03/19/19 22:06 Dose: 1 drop Levothyroxine Sodium (Synthroid -) 50 mcg PO AM [facility] Last Admin: 03/20/19 06:39 Dose: 50 mcg Lidocaine (Lidoderm Patch -) 1 patch TP DAILY PRN PRN Reason: LOWER BACK PAIN Miscellaneous (Lidoderm Patch Removal) 1 each MC DAILY@2200 [facility] Last Admin: 03/19/19 22:00 Dose: 1 each Polyethylene Glycol (Miralax (For Daily Use) -) 17 gm PO DAILY [facility] Last Admin: 03/20/19 10:58 Dose: Not Given Ranitidine HCl (Zantac -) 150 mg PO BID [facility] Last Admin: 03/20/19 10:56 Dose: 150 mg Tamsulosin HCl (Flomax -) 0.4 mg PO DAILY@0830 [facility] Last Admin: 03/20/19 10:56 Dose: 0.4 mg - Objective Vital Signs: Vital Signs Temperature 98.1 F 03/20/19 05:55 Pulse Rate 55 L 03/20/19 09:11 Respiratory Rate 18 03/20/19 09:11 Blood Pressure 122/74 03/20/19 09:11 O2 Sat by Pulse Oximetry (%) 100 03/19/19 21:00 Constitutional: Yes: Well Nourished Eyes: Yes: WNL HENT: Yes: WNL Neck: Yes: WNL Cardiovascular: Yes: Regular Rate and Rhythm, S1, S2 Respiratory: Yes: Rales (FEW BIBASILAR RALES) Gastrointestinal: Yes: Normal Bowel Sounds, Soft Extremities: Yes: WNL Edema: No Labs: CBC, BMP 03/17/19 05:45 03/20/19 05:39 Problem List - Problems (1) Acute on chronic respiratory failure with hypoxia and hypercapnia Code(s): J96.21 - ACUTE AND CHRONIC RESPIRATORY FAILURE WITH HYPOXIA; J96.22 - ACUTE AND CHRONIC RESPIRATORY FAILURE WITH HYPERCAPNIA (2) CHF exacerbation Code(s): I50.9 - HEART FAILURE, UNSPECIFIED Qualifiers: Heart failure type: unspecified Qualified Code(s): I50.9 - Heart failure, unspecified (3) Anemia Code(s): D64.9 - ANEMIA, UNSPECIFIED (4) Bilateral lower extremity edema Code(s): R60.0 - LOCALIZED EDEMA (5) CAD (coronary artery disease) Code(s): I25.10 - ATHSCL HEART DISEASE OF [place] CORONARY ARTERY W/O ANG PCTRS Qualifiers: Coronary Disease-Associated Artery/Lesion type: [place] artery (6) CHF (congestive heart failure) Code(s): I50.9 - HEART FAILURE, UNSPECIFIED (7) CRF (chronic renal failure) Code(s): N18.9 - CHRONIC KIDNEY DISEASE, UNSPECIFIED Qualifiers: Chronic kidney disease stage: stage 4 (severe) Qualified Code(s): N18.4 - Chronic kidney disease, stage 4 (severe) (8) Diabetes mellitus Code(s): E11.9 - TYPE 2 DIABETES MELLITUS WITHOUT COMPLICATIONS Qualifiers: Diabetes mellitus type: type 2 Diabetes mellitus watermelon inspector insulin use: unspecified watermelon inspector insulin use status Diabetes mellitus complication status : with other specified complication Qualified Code(s): E11.69 - Type 2 diabetes mellitus with other specified complication (9) Hypertension Code(s): I10 - ESSENTIAL (PRIMARY) HYPERTENSION Qualifiers: Hypertension type: unspecified Qualified Code(s): I10 - Essential (primary ) hypertension (10) CHF exacerbation Code(s): I50.9 - HEART FAILURE, UNSPECIFIED (11) Dyspnea Code(s): R06.00 - DYSPNEA, UNSPECIFIED Qualifiers: Dyspnea type: other forms of dyspnea Qualified Code(s): R06.09 - Other forms of dyspnea Assessment/Plan IMP ACUTE ON CHRONIC HYPOXEMIC /HYPERCAPNEIC RESPIRATORY FAILURE CLINICALLY IMPROVING ACUTE ON CHRONIC CHF ACUTE ON CKD HTN HLD DM ASHD SUSPECTED [place] PLAN LASIX O2 BIPAP NEEDED pt has been refusing MONITOR LYTES,RENAL FUNCTION F/U CHEST X-RAYS DAILY WTS OUTPATIENT SLEEP STUDIES MONITOR LYTES CONSIDER TRIOLGY DEVICE AT HOME DR DUBOIS Problem List - Problems (1) Acute on chronic respiratory failure with hypoxia and hypercapnia Code(s): J96.21 - ACUTE AND CHRONIC RESPIRATORY FAILURE WITH HYPOXIA; J96.22 - ACUTE AND CHRONIC RESPIRATORY FAILURE WITH HYPERCAPNIA (2) CHF exacerbation Code(s): I50.9 - HEART FAILURE, UNSPECIFIED Qualifiers: Heart failure type: unspecified Qualified Code(s): I50.9 - Heart failure, unspecified (3) Anemia Code(s): D64.9 - ANEMIA, UNSPECIFIED (4) Bilateral lower extremity edema Code(s): R60.0 - LOCALIZED EDEMA (5) CAD (coronary artery disease) Code(s): I25.10 - ATHSCL HEART DISEASE OF [place] CORONARY ARTERY W/O ANG PCTRS Qualifiers: Coronary Disease-Associated Artery/Lesion type: [place] artery (6) CHF (congestive heart failure) Code(s): I50.9 - HEART FAILURE, UNSPECIFIED (7) CRF (chronic renal failure) Code(s): N18.9 - CHRONIC KIDNEY DISEASE, UNSPECIFIED Qualifiers: Chronic kidney disease stage: stage 4 (severe) Qualified Code(s): N18.4 - Chronic kidney disease, stage 4 (severe) (8) Diabetes mellitus Code(s): E11.9 - TYPE 2 DIABETES MELLITUS WITHOUT COMPLICATIONS Qualifiers: Diabetes mellitus type: type 2 Diabetes mellitus intermediate insulin use: unspecified watermelon inspector insulin use status Diabetes mellitus complication status : with other specified complication Qualified Code(s): E11.69 - Type 2 diabetes mellitus with other specified complication (9) Hypertension Code(s): I10 - ESSENTIAL (PRIMARY) HYPERTENSION Qualifiers: Hypertension type: unspecified Qualified Code(s): I10 - Essential (primary ) hypertension (10) CHF exacerbation Code(s): I50.9 - HEART FAILURE, UNSPECIFIED (11) Dyspnea Code(s): R06.00 - DYSPNEA, UNSPECIFIED Qualifiers: Dyspnea type: other forms of dyspnea Qualified Code(s): R06.09 - Other forms of dyspnea
--- NOTE | 2019-03-20 11:43 | PN ---
Progress Note, Physician History of Present Illness: stable back pain - Current Medication List Current Medications: Active Medications Acetaminophen (Tylenol -) 650 mg PO Q4H PRN PRN Reason: PAIN LEVEL 1-5 Last Admin: 03/20/19 10:56 Dose: 650 mg Allopurinol (Zyloprim -) 100 mg PO DAILY [facility] Last Admin: 03/20/19 10:56 Dose: 100 mg Artificial Tears (Artificial Tears) 1 drop OU BID [facility] Last Admin: 03/20/19 10:58 Dose: 1 drop Aspirin (Ecotrin -) 81 mg PO DAILY [facility] Last Admin: 03/20/19 10:56 Dose: 81 mg Atorvastatin Calcium (Lipitor -) 20 mg PO HS [facility] Last Admin: 03/19/19 21:59 Dose: 20 mg Bisacodyl (Dulcolax -) 5 mg PO HS PRN PRN Reason: CONSTIPATION Carvedilol (Coreg -) 12.5 mg PO BID [facility] Last Admin: 03/20/19 10:56 Dose: 12.5 mg Furosemide (Lasix -) 80 mg PO DAILY@0600 [facility] Last Admin: 03/20/19 06:39 Dose: 80 mg Gabapentin (Neurontin -) 300 mg PO HS [facility] Last Admin: 03/19/19 21:59 Dose: 300 mg Insulin Aspart (Novolog Vial Sliding Scale -) 1 vial SQ [facility]; Protocol Last Admin: 03/20/19 06:39 Dose: Not Given Insulin Detemir (Levemir Vial) 18 units SQ [facility] Last Admin: 03/19/19 21:58 Dose: 18 units Isosorbide Mononitrate (Imdur -) 90 mg PO DAILY [facility] Last Admin: 03/20/19 10:57 Dose: 90 mg Latanoprost (Xalatan 0.005% Eye Drops -) 1 drop OU HS [facility] Last Admin: 03/19/19 22:06 Dose: 1 drop Levothyroxine Sodium (Synthroid -) 50 mcg PO AM [facility] Last Admin: 03/20/19 06:39 Dose: 50 mcg Lidocaine (Lidoderm Patch -) 1 patch TP DAILY PRN PRN Reason: LOWER BACK PAIN Miscellaneous (Lidoderm Patch Removal) 1 each MC DAILY@2200 [facility] Last Admin: 03/19/19 22:00 Dose: 1 each Polyethylene Glycol (Miralax (For Daily Use) -) 17 gm PO DAILY [facility] Last Admin: 03/20/19 10:58 Dose: Not Given Ranitidine HCl (Zantac -) 150 mg PO BID [facility] Last Admin: 03/20/19 10:56 Dose: 150 mg Tamsulosin HCl (Flomax -) 0.4 mg PO DAILY@0830 [facility] Last Admin: 03/20/19 10:56 Dose: 0.4 mg - Objective Vital Signs: Vital Signs Temperature 98.1 F 03/20/19 05:55 Pulse Rate 55 L 03/20/19 09:11 Respiratory Rate 18 03/20/19 09:11 Blood Pressure 122/74 03/20/19 09:11 O2 Sat by Pulse Oximetry (%) 100 03/20/19 09:00 Constitutional: Yes: Calm, Mild Distress Cardiovascular: Yes: S1, S2 Respiratory: Yes: Regular, On Nasal O2 Gastrointestinal: Yes: Normal Bowel Sounds, Soft Musculoskeletal: Yes: WNL Extremities: Yes: WNL Neurological: Yes: Alert, Oriented Psychiatric: Yes: Alert, Oriented Labs: CBC, BMP 03/17/19 05:45 03/20/19 05:39 Assessment/Plan Problem List - Problems (1) Acute on chronic respiratory failure with hypoxia and hypercapnia Code(s): J96.21 - ACUTE AND CHRONIC RESPIRATORY FAILURE WITH HYPOXIA; J96.22 - ACUTE AND CHRONIC RESPIRATORY FAILURE WITH HYPERCAPNIA (2) ANDRÉS (acute kidney injury) Code(s): N17.9 - ACUTE KIDNEY FAILURE, UNSPECIFIED (3) CRF (chronic renal failure) Code(s): N18.9 - CHRONIC KIDNEY DISEASE, UNSPECIFIED Qualifiers: Chronic kidney disease stage: stage 4 (severe) Qualified Code(s): N18.4 - Chronic kidney disease, stage 4 (severe) (4) Hyperkalemia Code(s): E87.5 - HYPERKALEMIA (5) Fall Code(s): W19.XXXA - UNSPECIFIED FALL, INITIAL ENCOUNTER Qualifiers: Encounter type: initial encounter Qualified Code(s): W19.XXXA - Unspecified fall, initial encounter (6) CAD (coronary artery disease) Code(s): I25.10 - ATHSCL HEART DISEASE OF [place] CORONARY ARTERY W/O ANG PCTRS Qualifiers: Coronary Disease-Associated Artery/Lesion type: [place] artery [place] vs. transplanted heart: [place] heart Associated angina: with unspecified angina Qualified Code(s): I25.119 - Atherosclerotic heart disease of [place] coronary artery with unspecified angina pectoris (7) Diabetes mellitus Code(s): E11.9 - TYPE 2 DIABETES MELLITUS WITHOUT COMPLICATIONS Qualifiers: Diabetes mellitus type: type 2 Diabetes mellitus extermination supervisor insulin use: unspecified alf insulin use status Diabetes mellitus complication status : with other specified complication Qualified Code(s): E11.69 - Type 2 diabetes mellitus with other specified complication (8) Foot trauma Code(s): S99.929A - UNSPECIFIED INJURY OF UNSPECIFIED FOOT, INITIAL ENCOUNTER plan continue current mgmt physio finish 2 weeks of oral vanco rest as per the team
--- NOTE | 2019-03-20 13:06 | DS ---
Physical Examination Vital Signs: Vital Signs Temperature 98.1 F 03/20/19 05:55 Pulse Rate 55 L 03/20/19 09:11 Respiratory Rate 18 03/20/19 09:11 Blood Pressure 122/74 03/20/19 09:11 O2 Sat by Pulse Oximetry (%) 100 03/20/19 09:00 Constitutional: Yes: No Distress, Calm Cardiovascular: Yes: Regular Rate and Rhythm, S1, S2 Respiratory: Yes: Regular, CTA Bilaterally. No: Rales Gastrointestinal: Yes: Normal Bowel Sounds, Soft, Tenderness Edema: No Neurological: Yes: Alert, Oriented Labs: CBC, BMP 03/17/19 05:45 03/20/19 05:39 Discharge Summary Reason For Visit: CHF SYSTOLIC MURMUR Current Active Problems Abnormal liver function test (Acute) Acute on chronic respiratory failure with hypercapnia (Acute) Acute on chronic respiratory failure with hypoxia and hypercapnia (Acute) CHF exacerbation (Acute) Diarrhea (Acute) Elevated liver enzymes (Acute) Foot trauma (Acute) Systolic murmur (Acute) Tachypnea (Acute) Urinary retention (Acute) Urinary retention (Acute) Procedures: Principal: Head CT. C spine CT. CXR, Left Foot XR, Shoulder XR, Abd XR. Renal US. Leg US. Left Foot CT Hospital Course: Pt with Hx/o CHF, came to ER c/o SOB, increased abd girth and diarrhea, more sleepy, s/p fall and left foot pain. Pt was noticed to be in acute hypercapnic respiratory failure, acute CHF, ARF on CRF, rhabdomyolisis; pt was started on BIPAP, monitored in ICU, diuresed with IV LAsix. Pt was seen in consult byGI, Pulm/CCM, Renal, ID, Ortho. She improved slowly, with treatment, came off BIPAP ; pt kept c/o left foot pain, foot CTscan was negative for fracture, positive for hematoma, possible abscess; pt was seen by SX, left foot abscess was R/O. Pt to be DC'ed to rehab. Condition: Improved - Instructions Diet, Activity, Other Instructions: Repeat CBC, CMP in 1-2 days Referrals: Kell Sunshine [Staff Physician] - (within 1 week from Rehab DC) Disposition: HALF-WAY FACILITY - Home Medications Comprehensive Discharge Medication List: Ambulatory Orders see Patient discharge instructions
--- NOTE | 2019-03-20 14:22 | PN ---
Progress Note (short form) - Note Progress Note: Renal follow up for CKD Seen and examined at the bedside no acute complaints gong to rehab today no sob, chest pain, fever or chills Vital Signs Temperature 98.1 F 03/20/19 05:55 Pulse Rate 55 L 03/20/19 09:11 Respiratory Rate 18 03/20/19 09:11 Blood Pressure 122/74 03/20/19 09:11 O2 Sat by Pulse Oximetry (%) 100 03/20/19 09:00 Intake & Output 03/17/19 03/18/19 03/19/19 03/20/19 23:59 23:59 23:59 23:59 Intake Total 920 740 370 Output Total 9134 723 6257 800 Balance -1800 20 -1660 -430 Weight 74.571 kg on NC O2 no acute distress trace edema in LE CBC, BMP 03/17/19 05:45 03/20/19 05:39 Current Medications Acetaminophen (Tylenol -) 650 mg PO Q4H PRN PRN Reason: PAIN LEVEL 1-5 Last Admin: 03/20/19 10:56 Dose: 650 mg Allopurinol (Zyloprim -) 100 mg PO DAILY [facility] Last Admin: 03/20/19 10:56 Dose: 100 mg Artificial Tears (Artificial Tears) 1 drop OU BID [facility] Last Admin: 03/20/19 10:58 Dose: 1 drop Aspirin (Ecotrin -) 81 mg PO DAILY [facility] Last Admin: 03/20/19 10:56 Dose: 81 mg Atorvastatin Calcium (Lipitor -) 20 mg PO HS [facility] Last Admin: 03/19/19 21:59 Dose: 20 mg Bisacodyl (Dulcolax -) 5 mg PO HS PRN PRN Reason: CONSTIPATION Carvedilol (Coreg -) 12.5 mg PO BID [facility] Last Admin: 03/20/19 10:56 Dose: 12.5 mg Furosemide (Lasix -) 80 mg PO DAILY@0600 [facility] Last Admin: 03/20/19 06:39 Dose: 80 mg Gabapentin (Neurontin -) 300 mg PO HS [facility] Last Admin: 03/19/19 21:59 Dose: 300 mg Insulin Aspart (Novolog Vial Sliding Scale -) 1 vial SQ [facility]; Protocol Last Admin: 03/20/19 06:39 Dose: Not Given Insulin Detemir (Levemir Vial) 18 units SQ [facility] Last Admin: 03/19/19 21:58 Dose: 18 units Isosorbide Mononitrate (Imdur -) 90 mg PO DAILY [facility] Last Admin: 03/20/19 10:57 Dose: 90 mg Latanoprost (Xalatan 0.005% Eye Drops -) 1 drop OU HS [facility] Last Admin: 03/19/19 22:06 Dose: 1 drop Levothyroxine Sodium (Synthroid -) 50 mcg PO AM [facility] Last Admin: 03/20/19 06:39 Dose: 50 mcg Lidocaine (Lidoderm Patch -) 1 patch TP DAILY PRN PRN Reason: LOWER BACK PAIN Miscellaneous (Lidoderm Patch Removal) 1 each MC DAILY@2200 [facility] Last Admin: 03/19/19 22:00 Dose: 1 each Polyethylene Glycol (Miralax (For Daily Use) -) 17 gm PO DAILY [facility] Last Admin: 03/20/19 10:58 Dose: Not Given Ranitidine HCl (Zantac -) 150 mg PO BID [facility] Last Admin: 03/20/19 10:56 Dose: 150 mg Tamsulosin HCl (Flomax -) 0.4 mg PO DAILY@0830 [facility] Last Admin: 03/20/19 10:56 Dose: 0.4 mg 83 year old [place] woman with history of CKD stage 4 (baseline Cr ~2), DM Type 2, CHF with diastolic dysfunction, hypertension who presented from home with a fall and diarrhea. 1. CKD stage 4 2. Fall 3. Diarrhea r/o infectious etiology 4. CHF with diastolic dysfunction 5. Anemia 6. Hypertension 7. Compensated respiratory acidosis Renal function is stable Volume status is improved Continue Lasix 80mg daily would check labs once weekly while at rehab. advised daughter to monitor for leg edema follow up in the office in 4 weeks Wm Tian DO
== END 2019-03-20 14:40 | DRG 291 ==
LOC: JER 12:11 → JERBED 13:52 → J4S 23:10 → JICU 03-08 19:03 → J4W 03-12 17:46
PROVIDERS: ADMIT Internal Medicine; ATTEND Internal Medicine
DX: I13.0 Hypertensive heart and chronic kidney disease with heart failure and stage 1 through stage 4 chronic kidney disease, or unspecified chronic kidney disease (principal); J96.22 Acute and chronic respiratory failure with hypercapnia; I50.33 Acute on chronic diastolic (congestive) heart failure; J96.21 Acute and chronic respiratory failure with hypoxia; N18.4 Chronic kidney disease, stage 4 (severe); E87.2 Acidosis; M62.82 Rhabdomyolysis; N39.0 Urinary tract infection, site not specified; E87.1 Hypo-osmolality and hyponatremia; N17.9 Acute kidney failure, unspecified; I25.10 Atherosclerotic heart disease of native coronary artery without angina pectoris; K21.9 Gastro-esophageal reflux disease without esophagitis; E78.5 Hyperlipidemia, unspecified; K59.09 Other constipation; E03.9 Hypothyroidism, unspecified; K57.90 Diverticulosis of intestine, part unspecified, without perforation or abscess without bleeding; M48.02 Spinal stenosis, cervical region; M54.12 Radiculopathy, cervical region; R19.7 Diarrhea, unspecified; R94.5 Abnormal results of liver function studies; R60.0 Localized edema; D64.9 Anemia, unspecified; M10.9 Gout, unspecified; E11.65 Type 2 diabetes mellitus with hyperglycemia; E87.6 Hypokalemia; E11.22 Type 2 diabetes mellitus with diabetic chronic kidney disease; R33.9 Retention of urine, unspecified; G47.33 Obstructive sleep apnea (adult) (pediatric); S90.32XA Contusion of left foot, initial encounter; S99.929A Unspecified injury of unspecified foot, initial encounter; W18.39XA Other fall on same level, initial encounter; Y92.098 Other place in other non-institutional residence as the place of occurrence of the external cause; Z79.4 Long term (current) use of insulin
CPT/HCPCS: 36415; 36600; 70450-TC; 71045-TC-FY; 72125-TC; 73030-TC-RT-FY; 73630-TC-LT; 73700-TC-RT; 74018-TC-FY; 76705-TC; 76775-TC; 80048; 80053; 81003; 82150; 82272; 82550; 82553; 82570; 82607; 82803; 82962; 83036; 83690; 83735; 83880; 83970; 84100; 84155; 84156; 84165; 84443; 84484; 85025; 85027; 87045; 87046; 87086; 87177; 87186; 87205; 87209; 87324; 87449; 93005; 93010; 93306-TC; 93970-TC; 94640; 94660; 97116-GP; 97162-GP; 99283-25; J0131; J0885; J1644; J7030

== ENCOUNTER 2019-04-05 14:49 | Inpatient (IN) | payer OTHER ==
[2019-04-05 15:09] VITALS: BMI 27.4
--- NOTE | 2019-04-05 16:32 | PDOC ---
History of Present Illness - General Chief Complaint: Urinary Problem Stated Complaint: urinary symptoms and chest pain Time Seen by Provider: 04/05/19 16:31 Past History - Past Medical History Allergies/Adverse Reactions: Allergies Allergy/AdvReac Type Severity Reaction Status Date / Time No Known Allergies Allergy Verified 04/05/19 15:10 Home Medications: Ambulatory Orders Aspirin Coated [Ecotrin -] 81 mg PO DAILY #30 tablet.ec 07/09/16 Levothyroxine [Synthroid -] 50 mcg PO DAILY #90 tablet 07/09/16 Allopurinol [Zyloprim -] 100 mg PO DAILY 10/02/17 Atorvastatin Ca [Lipitor] 20 mg PO HS 10/02/17 Gabapentin [Neurontin -] 300 mg PO HS 10/02/17 Acetaminophen [Tylenol .Extra-Strength -] 500 mg PO Q6H PRN tablet 11/12/17 Tamsulosin HCl [Flomax -] 0.4 mg PO DAILY@0830 #90 cap.er.24h 11/12/17 Bisacodyl [Bisacodyl -] 5 mg PO ASDIR 11/26/18 Carvedilol [Coreg -] 12.5 mg PO BID 11/26/18 Cinacalcet HCl [Sensipar] 30 mg PO DAILY 11/26/18 Isosorbide Mononitrate [Imdur -] 90 mg PO DAILY 11/26/18 Latanoprost/Pf [Latanoprost 0.005% Eye Drop] 1 drp OP DAILY 11/26/18 Polyethylene Glycol 3350 [Miralax 119 gm Btl -] 17 gm PO DAILY 11/26/18 Potassium Chloride 20 meq PO BID 11/26/18 Ranitidine HCl [Zantac] 150 mg PO BID 11/26/18 Insulin (Levemir) [Levemir Vial] 18 units SQ HS units 12/08/18 Acetaminophen [Tylenol .Regular Strength -] 650 mg PO Q4H PRN tablet 03/20/19 Furosemide [Lasix -] 80 mg PO DAILY@0600 tablet 03/20/19 Heparin - 5,000 unit SQ BID vial 03/20/19 Insulin Sliding Scale [Novolog Vial Sliding Scale -] 1 vial SQ [facility] units 03/20 Lidocaine 5% Patch [Lidoderm -] 1 patch TP DAILY PRN patch 03/20/19 Polyvinyl Alcohol [Artificial Tears] 1 drop OU BID drops 03/20/19 Anemia: No Asthma: No Cancer: No Cardiac Disorders: (CAD,angina) COPD: No CHF: Yes Diabetes: Yes GI Disorders: Yes (GERD.diverticulosis,constipation) Disorders: (renal insuff) HTN: Yes Hypercholesterolemia: Yes Thyroid Disease: Yes (HYPO.) - Surgical History Abdominal Surgery: Yes - Immunization History Immunization Up to Date: Yes - Psycho Social/Smoking Cessation Hx Smoking Status: No Smoking History: Never smoked Have you smoked in the past 12 months: No Number of Cigarettes Smoked Daily: 0 Information on smoking cessation initiated: No Hx Alcohol Use: No Drug/Substance Use Hx: No Substance Use Type: None Hx Substance Use Treatment: No *Physical Exam - Vital Signs Last Vital Signs Temp Pulse Resp BP Pulse Ox 97.9 F 72 16 146/60 97 04/05/19 15:00 04/05/19 15:00 04/05/19 15:00 04/05/19 15:00 04/05/19 15:00 ED Treatment Course - LABORATORY CBC & Chemistry Diagram: 04/05/19 18:21 04/05/19 18:21 Medical Decision Making - Medical Decision Making HPI: 83yo F with PMH of CHF, HTN, HLD, CAD, CKD, DM, hypothyroid, chronic abdominal pain, and GERD presenting with weakness, poor po intake, chest pain, nausea, vomiting, and dysuria. Patient's daughter is at the bedside providing collateral history. Earlier this month patient suffered from urinary retention and a johnston catheter was placed. Patient contracted a urinary tract infection and was placed on antibiotics. She then sustained cdiff colitis and presents today with worsening diarrhea. No fever, but endorses chills. PCP: Dr. Sunshine ROS: Constitutional: no fever, +chills HEENT: no throat pain, no dysphagia Cardiovascular: +chest pain, no palpitations Respiratory: no cough, +shortness of breath Gastrointestinal: +abdominal pain, +nausea, +vomiting Genitourinary: +dysuria, no hematuria Musculoskeletal: no myalgia, no arthralgia Skin: no rash, no itching Neurologic: +headache, +weakness PE: General: Somnolent but arousable; fully oriented Head: No signs of trauma Eyes: EOMI, sclera anicteric ENT: Dry mucus membranes Neck: Normal ROM, supple Lungs: Lungs with faint crackles Cardio: Regular rhythm, S1 and S2 present Abdomen: Tender to palpation in lower abdomen. Soft, moderately distended. No guarding, no rebound, no masses Extremities: Normal range of motion, Distal pulses present SKIN: Warm, Dry, normal turgor Neurologic: Cranial nerves II through XII grossly intact. Normal speech ED Course/MDM: DDX including but not limited to C. diff, UTI, bacteremia, dehydration, ACS Labs, EKG, CXR Fluid hydration, however cautiously due to patient's CHF history Antibiotics EKG: rate 72, QTc 431, NSR 04/05/19 16:[address] Lawrence 04/05/19 17:[address] Lawrence who recommended meropenem and po vanc 125mg q6 04/05/19 18:30 CBC WBC 5.1 K/mm3 (4.0-10.0) 04/05/19 18:21 RBC 3.50 M/mm3 (3.60-5.2) L 04/05/19 18:21 Hgb 10.2 GM/dL (10.7-15.3) L 04/05/19 18:21 Hct 30.9 % (32.4-45.2) L 04/05/19 18:21 MCV 88.2 fl (80-96) 04/05/19 18:21 MCH 29.0 pg (25.7-33.7) 04/05/19 18:21 MCHC 32.9 g/dl (32.0-36.0) 04/05/19 18:21 RDW 19.0 % (11.6-15.6) H 04/05/19 18:21 Plt Count 146 K/MM3 (134-434) D 04/05/19 18:21 MPV 9.1 fl (7.5-11.1) 04/05/19 18:21 Absolute Neuts (auto) 3.0 K/mm3 (1.5-8.0) 04/05/19 18:21 Neutrophils % 58.1 % (42.8-82.8) 04/05/19 18:21 Lymphocytes % 14.8 % (8-40) D 04/05/19 18:21 Monocytes % 14.9 % (3.8-10.2) H 04/05/19 18:21 Eosinophils % 11.7 % (0-4.5) H 04/05/19 18:21 Basophils % 0.5 % (0-2.0) 04/05/19 18:21 Nucleated RBC % 0 % (0-0) 04/05/19 18:21 No leukocytosis CMP Sodium 138 mmol/L (136-145) 04/05/19 18:21 Potassium 4.3 mmol/L (3.5-5.1) 04/05/19 18:21 Chloride 102 mmol/L (98-107) 04/05/19 18:21 Carbon Dioxide 29 mmol/L (21-32) 04/05/19 18:21 Anion Gap 7 MMOL/L (8-16) L 04/05/19 18:21 BUN 53.0 mg/dL (7-18) H 04/05/19 18:21 Creatinine 1.8 mg/dL (0.55-1.3) H 04/05/19 18:21 Est GFR (CKD-EPI)AfAm 29.64 04/05/19 18:21 Est GFR (CKD-EPI)NonAf 25.58 04/05/19 18:21 POC Glucometer 83 UNITS (80-120) 04/05/19 22:35 Random Glucose 108 mg/dL (74-106) H 04/05/19 18:21 Lactic Acid 0.9 mmol/L (0.4-2.0) 04/05/19 22:45 Calcium 7.4 mg/dL (8.5-10.1) L 04/05/19 18:21 Total Bilirubin 0.8 mg/dL (0.2-1) 04/05/19 18:21 AST 46 U/L (15-37) H 04/05/19 18:21 ALT 43 U/L (13-61) 04/05/19 18:21 Alkaline Phosphatase 129 U/L (45-117) H 04/05/19 18:21 Troponin I 0.02 ng/ml (0.00-0.05) 04/05/19 18:21 Total Protein 6.0 g/dl (6.4-8.2) L 04/05/19 18:21 Albumin 3.0 g/dl (3.4-5.0) L 04/05/19 18:21 Electrolytes unremarkable Cr elevated, at patient's baseline Tpn undetectable Lactate normal CXR without acute change from previous, my impression 04/05/19 19:[address] Sunshine 04/05/19 20:[address] Sunshine who accepted patient for admission 04/05/19 20:35 Discharge - Discharge Information Problems reviewed: Yes Clinical Impression/Diagnosis: Dehydration, C. difficile diarrhea UTI (urinary tract infection) Qualifiers: Urinary tract infection type: site unspecified Hematuria presence: without hematuria Qualified Code(s): N39.0 - Urinary tract infection, site not specified Condition: Guarded - Admission Yes - Follow up/Referral - Patient Discharge Instructions - Post Discharge Activity
[2019-04-05] MEDS ORDERED: SODIUM CHLORIDE 1,000 ML IV STA (16:55)
[2019-04-05] MEDS ORDERED: ACETAMINOPHEN 1000 MG/100 ML VIAL (NON FORMULARY) IVPB ONE (16:56)
[2019-04-05] MEDS ORDERED: ONDANSETRON 4 MG/2 ML VIAL IVPUSH ONE (16:56)
--- NOTE | 2019-04-05 17:22 | PDOC ---
Attending Attestation - Resident Resident Name: Mattie Bhardwaj - ED Attending Attestation I have performed the following: I have examined & evaluated the patient, The case was reviewed & discussed with the resident, I agree w/resident's findings & plan, Exceptions are as noted - HPI HPI: 04/05/19 18:13 Ms. Flores is an 83 yo F h/o CHF, came to ER c/o urinary complaints Pt had a recent admission, johnston cathether placed for urinary retention Pt developed UTI, was treated with abx Pt developed Cdiff Pt presents today due to generalized weakness, poor po intake, chest pain, nausea, vomiting, and dysuria. No reported fevers 04/05/19 19:03 - Physicial Exam PE: 04/05/19 18:13 GENERAL: The patient is in no acute distress. HEAD: Normal EYES: PERRLA, EOMI, sclera anicteric, conjunctiva clear. ENT: Ears normal, nares patent, oropharynx clear without exudates. Moist mucous membranes. NECK: Normal range of motion, supple LUNGS: Breath sounds equal, clear to auscultation bilaterally. No wheezes, and no crackles. HEART:Regular rate and rhythm, normal S1 and S2 without murmur, rub or gallop. ABDOMEN: Soft, nontender, normoactive bowel sounds. No guarding, no rebound. EXTREMITIES: Normal range of motion, no edema. NEUROLOGICAL: Cranial nerves II through XII grossly intact. Normal speech. No focal neurological deficits. MUSCULOSKELETAL: Back non-tender to palpation, no CVA tenderness SKIN: Warm, Dry, normal turgor, no rashes or lesions noted. - Medical Decision Making 04/05/19 18:12 EKG - NSR rate of 72 bpm, axis nml, intervals nml, no st elevation, no st depression, (+) PVC, t waves upright, no pathological q waves Pending labs Pending UA Case reviewed with Dr. Lawrence Recommends Po Vancomycin and Ceftriaxone Pt last urine culture not sensitive will given Doripenam per Dr Lawrence 04/05/19 19:02 Laboratory Tests 04/05/19 18:15 Urine Blood Negative Urine Nitrite Negative Ur Leukocyte Esterase Trace Urine WBC (Auto) 5 Urine RBC (Auto) 6 04/05/19 19:03 LaAbs pending Pending admission Signed out to overnight team
[2019-04-05] MEDS ORDERED: ACETAMINOPHEN INJECTION 100 ML IVPB ONE (17:56)
[2019-04-05] MEDS ORDERED: ONDANSETRON 4 MG/2 ML VIAL ONE (17:56)
[2019-04-05] MEDS ORDERED: MEROPENEM 1 GM in DEXTROSE 5%-WATER 100 ML IVPB ONE ×2 (18:31→20:15)
[2019-04-05 18:54] LABS: VENOUS PC02 52.6 mmHg (38-52); VENOUS PH 7.37 (7.31-7.41); VENOUS PO2 < 49 mmHg (28-48)
[2019-04-05 18:57] LABS: BASO % 0.5 % (0-2.0); EOS % 11.7 % (0-4.5); HEMATOCRIT 30.9 % (32.4-45.2); HEMOGLOBIN 10.2 GM/dL (10.7-15.3); LYMPH % 14.8 % (8-40); MCHC 32.9 g/dl (32.0-36.0); MEAN CELL VOLUME 88.2 fl (80-96); MEAN PLT VOLUME 9.1 fl (7.5-11.1); MONO % 14.9 % (3.8-10.2); NEUT % 58.1 % (42.8-82.8); PLATELET COUNT 146 K/MM3 (134-434); WHITE BLOOD COUNT 5.1 K/mm3 (4.0-10.0)
[2019-04-05 19:00] LABS: EPI CELLS 1.3 /HPF (0-5/HPF); HYALINE CASTS 3 /lpf (0-8); URINE APPEARANCE CLEAR; URINE BACTERIA 1.5 /hpf (NEGATIVE); URINE BILIRUBIN NEGATIVE (NEGATIVE); URINE COLOR YELLOW; URINE GLUCOSE (UA) NEGATIVE (NEGATIVE); URINE KETONE NEGATIVE (NEGATIVE); URINE LEUK ESTERASE TRACE (NEGATIVE); URINE NITRITE NEGATIVE (NEGATIVE); URINE PROTEIN NEGATIVE (NEGATIVE); URINE RBC 6 /hpf (0-4); URINE UROBILINOGEN 0.2 mg/dL (0.2-1.0); URINE WBC 5 /hpf (0-5)
[2019-04-05 19:18] LABS: INR 1.11 (0.83-1.09); PROTHROMBIN TIME (PATIENT) 13.1 SEC (9.7-13.0)
[2019-04-05 19:20] LABS: ACTIVATED PTT 33.1 SECONDS (25.2-36.5)
[2019-04-05 19:22] LABS: BILIRUBIN,TOTAL 0.8 mg/dL (0.2-1); CALCIUM 7.4 mg/dL (8.5-10.1); CREATININE 1.8 mg/dL (0.55-1.3); POTASSIUM 4.3 mmol/L (3.5-5.1)
[2019-04-05] MEDS ORDERED: SODIUM CHLORIDE 1,000 ML IV SCH (20:45)
[2019-04-06] MEDS: VANCOMYCIN 250 MG/5 ML ORAL SOLUTION PO SCH ×4 (01:15→18:10)
[2019-04-06] MEDS ORDERED: ALBUTEROL SO4 2.5/IPRATROPIUM 0.5 INH SOL 3 ML VIAL.NEB. NEB PRN (11:06)
--- NOTE | 2019-04-06 11:06 | HP ---
Admitting History and Physical - Primary Care Physician PCP: Kell Sunshine S - Admission Chief Complaint: lethargy History of Present Illness: 83yo F with PMH of CHF, HTN, HLD, CAD, CKD, DM, hypothyroid, chronic abdominal pain, and GERD admitted from [facility] with weakness, poor po intake, chest pain, nausea, vomiting, and dysuria. She was admitted here last month after recurrent falls at home and transferred to SNF for PT rehab. Earlier in SNF pt had urinary retention and a johnston catheter was placed. Patient contracted a urinary tract infection and was placed on antibiotics. She then sustained cdiff colitis but became increasingly lethargic, decreased po intake, dehydrated and was sent to [facility] - pt and daughter Aicha History Source: Patient, Family Member, Medical Record, Transfer Record Limitations to Obtaining History: No Limitations - Past Medical History Cardiovascular: Yes: CAD (non-obstructive), CHF, HTN, Hyperlipdemia, Other ( Angina pectoris) Gastrointestinal: Yes: Constipation, Diverticulosis, GERD, Other (colon polyps: sessil serrated adenomas x 2 2014) Renal/: Yes: Renal Inusuff Musculoskeletal: Yes: Other (Spinal stenosis) Endocrine: Yes: Diabetes Mellitus (Insulin dependent), Hypothyroidism - Past Surgical History Past Surgical History: Yes: Hysterectomy (BRAXTON, BSO in 1981), Oopherectomy - Smoking History Smoking history: Never smoked Have you smoked in the past 12 months: No Aproximately how many cigarettes per day: 0 - Alcohol/Substance Use Hx Alcohol Use: No History of Substance Use: reports: None - Social History Usual Living Arrangement: Yes: Residential ADL: Independent History of Recent Travel: Yes (WENT TO [facility] TWO YEARS AGO) Home Medications - Allergies Allergies/Adverse Reactions: Allergies Allergy/AdvReac Type Severity Reaction Status Date / Time No Known Allergies Allergy Verified 04/05/19 15:10 - Home Medications Home Medications: Ambulatory Orders Aspirin Coated [Ecotrin -] 81 mg PO DAILY #30 tablet.ec 07/09/16 Allopurinol [Zyloprim -] 100 mg PO DAILY 10/02/17 Atorvastatin Ca [Lipitor] 20 mg PO HS 10/02/17 Gabapentin [Neurontin -] 300 mg PO HS 10/02/17 Acetaminophen [Tylenol .Extra-Strength -] 500 mg PO Q6H PRN tablet 11/12/17 Tamsulosin HCl [Flomax -] 0.4 mg PO DAILY@0830 #90 cap.er.24h 11/12/17 Bisacodyl [Bisacodyl -] 5 mg PO DAILY 11/26/18 Carvedilol [Coreg -] 12.5 mg PO BID 11/26/18 Cinacalcet HCl [Sensipar] 30 mg PO DAILY 11/26/18 Isosorbide Mononitrate [Imdur -] 90 mg PO DAILY 11/26/18 Latanoprost/Pf [Latanoprost 0.005% Eye Drop] 1 drp OP HS 11/26/18 Polyethylene Glycol 3350 [Miralax 119 gm Btl -] 17 gm PO DAILY 11/26/18 Potassium Chloride 20 meq PO BID 11/26/18 Ranitidine HCl [Zantac] 150 mg PO BID 11/26/18 Insulin Sliding Scale [Novolog Vial Sliding Scale -] 1 vial SQ ACHS units 03/20 Albuterol 2.5/Ipratropium 0.5 [Duoneb -] 1 unit NEB TID 04/06/19 Colchicine 0.6 mg PO BID 04/06/19 Furosemide [Lasix -] 80 mg PO BID 04/06/19 Imipenem/Cilastatin Sodium [Primaxin (Restricted To Id)] 500 mg IV Q8HIV Insulin (Levemir) [Levemir Vial] 16 units SQ HS 04/06/19 Levothyroxine [Synthroid -] 50 mcg PO 0630 04/06/19 Melatonin/Pyridoxine HCl (B6) [Melatonin 5 mg Tablet] 1 each PO HS 04/06/19 Simethicone [Gas Relief] 125 mg PO TID PRN 04/06/19 Vancomycin HCl 125 mg PO Q6H 04/06/19 hydrALAZINE HCL [Apresoline -] 50 mg PO TID 04/06/19 Family Medical History Family History: Unremarkable Review of Systems - Review of Systems Constitutional: reports: Chills, Lethargy, Loss of Appetite, Weakness (general) . denies: Fever HENT: denies: Difficult Swallowing, Ear Pain, Epistaxis Cardiovascular: denies: Chest Pain, Palpitations, Shortness of Breath Respiratory: denies: Cough, SOB Gastrointestinal: reports: Diarrhea. denies: Abdominal Pain, Constipation, Vomiting Genitourinary: reports: Other (retention). denies: Dysuria, Flank Pain Musculoskeletal: denies: Back Pain, Joint Swelling Neurological: reports: Weakness (general). denies: Syncope Hematology/Lymphatic: denies: Easily Bruised, Excessive Bleeding, Swollen Glands Psychiatric: reports: Altered Sleep Pattern. denies: Anxiety, Depression, Suicidal Physical Examination Vital Signs: Vital Signs Temperature 97.6 F 04/06/19 06:00 Pulse Rate 81 04/06/19 06:00 Respiratory Rate 18 04/06/19 06:00 Blood Pressure 132/73 04/06/19 06:00 O2 Sat by Pulse Oximetry (%) 98 04/06/19 01:41 Constitutional: Yes: No Distress, Calm Eyes: Yes: Conjunctiva Clear HENT: Yes: Atraumatic Neck: Yes: Supple Cardiovascular: Yes: Regular Rate and Rhythm Respiratory: Yes: CTA Bilaterally Gastrointestinal: Yes: Soft. No: Tenderness Renal/: No: Hematuria Musculoskeletal: No: Joint Stiffness, Joint Swelling Extremities: Yes: Other (L foot dorsal area small lump since previousl admission , smaller and painless now, seen by ortho previously no fractures). No: Cold, Cool, Cyanosis Edema: No Integumentary: No: Rash, Venous Stasis Changes Neurological: Yes: Alert ...Motor Strength: WNL Psychiatric: Yes: Alert. No: Agitated Labs: CBC, BMP 04/05/19 18:21 04/05/19 18:21 Imaging - Results Chest X-ray: Report Reviewed Other: Report Reviewed Assessment/Plan 83yo F with PMH of CHF, HTN, HLD, CAD, CKD, DM, hypothyroid, chronic abdominal pain, and GERD, weakness and falls, presenting from [facility] with weakness, poor po intake, chest pain, nausea, vomiting, and dysuria. s./p recent UTIs urinary retention and CDiff colitis. IV ATB per ID; IVF f/u labs and cultures falls decubs DVT Pfx d/w pt and staff d/w daughter Aicha
--- NOTE | 2019-04-06 11:10 | CON.ID ---
Consult Consult Specialty:: infectious diseases Referred by:: Reason for Consultation:: weakness,dehydration,uti,dirrhoea - History of Present Illness Chief Complaint: weakness,dirrhoea History of Present Illness: 83yo F with PMH of CHF, HTN, HLD, CAD, CKD, DM, hypothyroid, chronic abdominal pain, and GERD admitted from [facility] with weakness, poor po intake, chest pain, nausea, vomiting, and dysuria. She was admitted here last month after recurrent falls at home and transferred to SNF for PT rehab. Earlier in SNF pt had urinary retention and a johnston catheter was placed. Patient contracted a urinary tract infection and was placed on antibiotics. She then sustained cdiff colitis but became increasingly lethargic, decreased po intake, dehydrated and was sent to the hospital. patient was started on treatment for uti and was also started on oral vanco currently patient looks very weak daughter with the patient - History Source History Provided By: Family Member Limitations to Obtaining History: Clinical Condition - Past Medical History Cardio/Vascular: Yes: CAD (non-obstructive), CHF, HTN, Hyperlipdemia, Other ( Angina pectoris) Gastrointestinal: Yes: Constipation, Diverticulosis, GERD, Other (colon polyps: sessil serrated adenomas x 2 2014) Renal/: Yes: Renal Inusuff Musculoskeletal: Yes: Other (Spinal stenosis) Endocrine: Yes: Diabetes Mellitus (Insulin dependent), Hypothyroidism - Past Surgical History Past Surgical History: Yes: Hysterectomy (BRAXTON, BSO in 1981), Oopherectomy - Alcohol/Substance Use Hx Alcohol Use: No History of Substance Use: reports: None - Smoking History Smoking history: Never smoked Have you smoked in the past 12 months: No Aproximately how many cigarettes per day: 0 - Social History Usual Living Arrangement: With Spouse ADL: Independent History of Recent Travel: Yes (WENT TO [facility] TWO YEARS AGO) Home Medications - Allergies Allergies/Adverse Reactions: Allergies Allergy/AdvReac Type Severity Reaction Status Date / Time No Known Allergies Allergy Verified 04/05/19 15:10 - Home Medications Home Medications: Ambulatory Orders RX: Aspirin Coated [Ecotrin -] 81 mg PO DAILY #30 tablet.ec 07/09/16 RX: Allopurinol [Zyloprim -] 100 mg PO DAILY 10/02/17 RX: Atorvastatin Ca [Lipitor] 20 mg PO HS 10/02/17 RX: Gabapentin [Neurontin -] 300 mg PO HS 10/02/17 RX: Acetaminophen [Tylenol .Extra-Strength -] 500 mg PO Q6H PRN tablet RX: Tamsulosin HCl [Flomax -] 0.4 mg PO DAILY@0830 #90 cap.er.24h 11/12/17 RX: Bisacodyl [Bisacodyl -] 5 mg PO DAILY 11/26/18 RX: Carvedilol [Coreg -] 12.5 mg PO BID 11/26/18 RX: Cinacalcet HCl [Sensipar] 30 mg PO DAILY 11/26/18 RX: Isosorbide Mononitrate [Imdur -] 90 mg PO DAILY 11/26/18 RX: Latanoprost/Pf [Latanoprost 0.005% Eye Drop] 1 drp OP HS 11/26/18 RX: Polyethylene Glycol 3350 [Miralax 119 gm Btl -] 17 gm PO DAILY 11/26/18 RX: Potassium Chloride 20 meq PO BID 11/26/18 RX: Ranitidine HCl [Zantac] 150 mg PO BID 11/26/18 RX: Insulin Sliding Scale [Novolog Vial Sliding Scale -] 1 vial SQ ACHS units 03/20/19 RX: Albuterol 2.5/Ipratropium 0.5 [Duoneb -] 1 unit NEB TID 04/06/19 RX: Colchicine 0.6 mg PO BID 04/06/19 RX: Furosemide [Lasix -] 80 mg PO BID 04/06/19 RX: Insulin (Levemir) [Levemir Vial] 16 units SQ HS 04/06/19 RX: Levothyroxine [Synthroid -] 50 mcg PO 0630 04/06/19 RX: Melatonin/Pyridoxine HCl (B6) [Melatonin 5 mg Tablet] 1 each PO HS 04/06/19 RX: Simethicone [Gas Relief] 125 mg PO TID PRN 04/06/19 RX: Vancomycin HCl 125 mg PO Q6H 04/06/19 RX: hydrALAZINE HCL [Apresoline -] 50 mg PO TID 04/06/19 Lactobacillus Acidophilus [Bacid -] 1 each PO DAILY #30 capsule 04/08/19 RX: Vancomycin Oral Solution 125 mg PO Q6HPO 10 Days #100 ml 04/08/19 Review of Systems - Review of Systems Constitutional: reports: Weakness, Other Eyes: reports: No Symptoms HENT: reports: No Symptoms Neck: reports: No Symptoms Cardiovascular: reports: No Symptoms Respiratory: reports: No Symptoms Gastrointestinal: reports: Diarrhea Genitourinary: reports: No Symptoms Musculoskeletal: reports: No Symptoms Integumentary: reports: No Symptoms Neurological: reports: No Symptoms Endocrine: reports: No Symptoms Hematology/Lymphatic: reports: No Symptoms Psychiatric: reports: No Symptoms Physical Exam Vital Signs: Vital Signs Temperature 97.6 F 04/06/19 06:00 Pulse Rate 81 04/06/19 06:00 Respiratory Rate 18 04/06/19 06:00 Blood Pressure 132/73 04/06/19 06:00 O2 Sat by Pulse Oximetry (%) 98 04/06/19 01:41 Constitutional: Yes: Calm, Mild Distress Eyes: Yes: Conjunctiva Clear Cardiovascular: Yes: Regular Rate and Rhythm Respiratory: Yes: Regular, CTA Bilaterally Gastrointestinal: Yes: Soft, Hypoactive Bowel Sounds Musculoskeletal: Yes: WNL Extremities: Yes: WNL Neurological: Yes: Alert, Oriented Psychiatric: Yes: Alert Imaging - Results Chest X-ray: Report Reviewed, Image Reviewed Assessment/Plan dehydration uti cdiff weakness plan retirement records noted patients cx result noted await all recent cx reports will continue oral vanco and will give iv abx once we have all the results will decide further
[2019-04-06 11:11] LABS: HEMATOCRIT 31.2 % (32.4-45.2); HEMOGLOBIN 10.2 GM/dL (10.7-15.3); MCH 29.1 pg (25.7-33.7); MCHC 32.6 g/dl (32.0-36.0); MEAN CELL VOLUME 89.2 fl (80-96); PLATELET COUNT 132 K/MM3 (134-434); RBC 3.49 M/mm3 (3.60-5.2); RDW 19.2 % (11.6-15.6)
[2019-04-06 11:41] LABS: BILIRUBIN,TOTAL 0.7 mg/dL (0.2-1); BLOOD UREA NITROGEN 47.6 mg/dL (7-18); CALCIUM 7.7 mg/dL (8.5-10.1); CREATININE 1.7 mg/dL (0.55-1.3); POTASSIUM 3.5 mmol/L (3.5-5.1); TOT PROT 5.9 g/dl (6.4-8.2)
[2019-04-06] MEDS ORDERED: PT OWN MED DRAWER 7, Y5N ONE ×3 (11:59→14:06)
[2019-04-06] MEDS ORDERED: DEXTROSE 5%-WATER 100 ML IVPB ONE ×2 (15:05→20:57)
[2019-04-06] MEDS ORDERED: MEROPENEM 1 GM VIAL (RESTRICTED TO ID) IVPB ONE ×2 (15:05→20:57)
[2019-04-06] MEDS: MEROPENEM 1 GM in DEXTROSE 5%-WATER 100 ML IVPB SCH ×2 (15:13→21:10)
[2019-04-06] MEDS: hydrALAZINE HCL 50 MG TABLET (FP) PO SCH ×2 (15:13→21:12)
[2019-04-06] MEDS: FUROSEMIDE 40 MG TABLET (FP) PO SCH (15:13)
[2019-04-06] MEDS: INSULIN SLIDING SCALE (NOVOLOG) 1 VIAL SQ SCH ×2 (16:30→21:14)
[2019-04-06] MEDS ORDERED: INSULIN SLIDING SCALE (NOVOLOG) 1 VIAL SQ SCH (16:30)
--- NOTE | 2019-04-06 20:21 | EKG ---
Test Reason : Blood Pressure : / mmHG Vent. Rate : 072 BPM Atrial Rate : 072 BPM P-R Int : 146 ms QRS Dur : 082 ms QT Int : 406 ms P-R-T Axes : 040 050 048 degrees QTc Int : 444 ms SINUS RHYTHM WITH SINUS ARRHYTHMIA WITH OCCASIONAL PREMATURE VENTRICULAR COMPLEXES OTHERWISE NORMAL ECG WHEN COMPARED WITH ECG OF 07-MAR-2019 13:04, PREMATURE VENTRICULAR COMPLEXES ARE NOW PRESENT Confirmed by MD EDEL, HA ([id number]) on 04/06/2019 8:21:29 PM Referred By: Confirmed By:HA HOLLINGSWORTH MD
[2019-04-06] MEDS: FAMOTIDINE 20 MG TABLET PO SCH (21:11)
[2019-04-06] MEDS: COLCHICINE 0.6 MG CAP PO SCH (21:12)
[2019-04-06] MEDS: GABAPENTIN 300 MG CAPSULE (FP) PO SCH (21:12)
[2019-04-06] MEDS: CARVEDILOL 12.5 MG TABLET (FP) PO SCH (21:12)
[2019-04-06] MEDS: HEPARIN NA (PORCINE) 5,000 UNITS/ML 1ML VIAL SQ SCH (21:12)
[2019-04-06] MEDS: ATORVASTATIN CA 20 MG TABLET (FP) PO SCH (21:12)
[2019-04-06] MEDS: POTASSIUM CHLORIDE TABS 20 MEQ TABLET.ER (FP) PO SCH (21:12)
[2019-04-06] MEDS: INSULIN (LEVEMIR) 100 UNITS/ML UNITS SQ SCH (21:13)
[2019-04-06] MEDS ORDERED: PATIENT'S OWN MEDICATION (NON-FORMULARY) (Latanoprost/Pf [Latanoprost 0.005% Eye Drop] 1 D OP SCH (22:00)
[2019-04-07] MEDS: VANCOMYCIN 250 MG/5 ML ORAL SOLUTION PO SCH ×4 (00:21→17:02)
[2019-04-07] MEDS: hydrALAZINE HCL 50 MG TABLET (FP) PO SCH ×3 (05:43→21:54)
[2019-04-07] MEDS: FUROSEMIDE 40 MG TABLET (FP) PO SCH ×2 (05:44→14:42)
[2019-04-07] MEDS: INSULIN SLIDING SCALE (NOVOLOG) 1 VIAL SQ SCH ×4 (06:11→21:55)
[2019-04-07] MEDS: LEVOTHYROXINE NA 50 MCG TABLET (FP) PO SCH (06:11)
[2019-04-07 06:23] LABS: BASO % 0.9 % (0-2.0); HEMATOCRIT 30.9 % (32.4-45.2); HEMOGLOBIN 10.4 GM/dL (10.7-15.3); LYMPH % 10.8 % (8-40); MCH 29.6 pg (25.7-33.7); MCHC 33.5 g/dl (32.0-36.0); MEAN CELL VOLUME 88.2 fl (80-96); MEAN PLT VOLUME 8.8 fl (7.5-11.1); MONO % 21.1 % (3.8-10.2); NEUT % 53.2 % (42.8-82.8); PLATELET COUNT 126 K/MM3 (134-434); RBC 3.51 M/mm3 (3.60-5.2); RDW 18.9 % (11.6-15.6); WHITE BLOOD COUNT 5.2 K/mm3 (4.0-10.0)
[2019-04-07 06:57] LABS: BILIRUBIN,TOTAL 0.6 mg/dL (0.2-1); BLOOD UREA NITROGEN 35.4 mg/dL (7-18); CALCIUM 7.7 mg/dL (8.5-10.1); CREATININE 1.4 mg/dL (0.55-1.3); POTASSIUM 4.4 mmol/L (3.5-5.1); TOT PROT 5.9 g/dl (6.4-8.2)
[2019-04-07] MEDS ORDERED: INSULIN (LEVEMIR) 100 UNITS/ML UNITS SQ ONE (07:49)
[2019-04-07] MEDS ORDERED: INSULIN SLIDING SCALE (NOVOLOG) 1 VIAL SQ ONE (07:50)
[2019-04-07] MEDS: TAMSULOSIN HCL 0.4 MG CAP PO SCH (08:11)
[2019-04-07] MEDS ORDERED: MEROPENEM 1 GM VIAL (RESTRICTED TO ID) IVPB ONE (09:10)
[2019-04-07] MEDS ORDERED: DEXTROSE 5%-WATER 100 ML IVPB ONE (09:10)
[2019-04-07] MEDS: ASPIRIN COATED 81 MG TABLET.EC PO SCH (09:22)
[2019-04-07] MEDS: ISOSORBIDE MONONITRATE 30 MG TAB.SR.24H (FP) PO SCH (09:22)
[2019-04-07] MEDS: CINACALCET HCL 30 MG TAB (FP) PO SCH (09:22)
[2019-04-07] MEDS: COLCHICINE 0.6 MG CAP PO SCH ×2 (09:22→21:53)
[2019-04-07] MEDS: CARVEDILOL 12.5 MG TABLET (FP) PO SCH ×2 (09:22→21:54)
[2019-04-07] MEDS: POTASSIUM CHLORIDE TABS 20 MEQ TABLET.ER (FP) PO SCH ×2 (09:22→21:54)
[2019-04-07] MEDS: BISACODYL 5 MG TABLET.DR (FP) PO SCH (09:22)
[2019-04-07] MEDS: FAMOTIDINE 20 MG TABLET PO SCH ×2 (09:22→21:54)
[2019-04-07] MEDS: POLYETHYLENE GLYCOL 3350 119 GM BTL PO SCH (09:23)
[2019-04-07] MEDS: HEPARIN NA (PORCINE) 5,000 UNITS/ML 1ML VIAL SQ SCH ×2 (09:23→21:55)
[2019-04-07] MEDS: MEROPENEM 1 GM in DEXTROSE 5%-WATER 100 ML IVPB SCH (09:23)
[2019-04-07] MEDS: ALLOPURINOL 100 MG TABLET (FP) PO SCH (09:23)
--- NOTE | 2019-04-07 11:18 | PN ---
Progress Note, Physician History of Present Illness: stable no new issues - Current Medication List Current Medications: Active Medications Acetaminophen (Tylenol -) 500 mg PO Q6H PRN PRN Reason: PAIN LEVEL 1-5 Albuterol/Ipratropium (Duoneb -) 1 amp NEB Q8H PRN PRN Reason: ASTHMA Allopurinol (Zyloprim -) 100 mg PO DAILY [facility] Last Admin: 04/07/19 09:23 Dose: 100 mg Aspirin (Ecotrin -) 81 mg PO DAILY [facility] Last Admin: 04/07/19 09:22 Dose: 81 mg Atorvastatin Calcium (Lipitor -) 20 mg PO HS [facility] Last Admin: 04/06/19 21:12 Dose: 20 mg Bisacodyl (Dulcolax -) 5 mg PO DAILY [facility] Last Admin: 04/07/19 09:22 Dose: 5 mg Carvedilol (Coreg -) 12.5 mg PO BID [facility] Last Admin: 04/07/19 09:22 Dose: 12.5 mg Cinacalcet (Sensipar -) 30 mg PO DAILY [facility] Last Admin: 04/07/19 09:22 Dose: 30 mg Colchicine (Colcrys) 0.6 mg PO BID [facility] Last Admin: 04/07/19 09:22 Dose: 0.6 mg Famotidine (Pepcid -) 20 mg PO BID [facility] Last Admin: 04/07/19 09:22 Dose: 20 mg Furosemide (Lasix -) 80 mg PO BIDLASIX [facility] Last Admin: 04/07/19 05:44 Dose: 80 mg Gabapentin (Neurontin -) 300 mg PO HS [facility] Last Admin: 04/06/19 21:12 Dose: 300 mg Heparin Sodium (Porcine) (Heparin -) 5,000 unit SQ BID [facility] Last Admin: 04/07/19 09:23 Dose: 5,000 unit Hydralazine HCl (Apresoline -) 50 mg PO TID [facility] Last Admin: 04/07/19 05:43 Dose: 50 mg Meropenem 1 gm/ Dextrose 100 mls @ 200 mls/hr IVPB BID [facility] Last Admin: 04/07/19 09:23 Dose: 200 mls/hr Insulin Aspart (Novolog Vial Sliding Scale -) 1 vial SQ ACHS [facility]; Protocol Last Admin: 04/07/19 06:11 Dose: 2 unit Insulin Detemir (Levemir Vial) 16 units SQ HS [facility] Last Admin: 04/06/19 21:13 Dose: 16 units Isosorbide Mononitrate (Imdur -) 90 mg PO DAILY [facility] Last Admin: 04/07/19 09:22 Dose: 90 mg Levothyroxine Sodium (Synthroid -) 50 mcg PO AM [facility] Last Admin: 04/07/19 06:11 Dose: 50 mcg Non-Formulary Medication (Latanoprost/Pf [Latanoprost 0.005% Eye Drop]) 1 drp OP [facility] Polyethylene Glycol (Miralax (For Daily Use) -) 17 gm PO DAILY [facility] Last Admin: 04/07/19 09:23 Dose: 17 gm Potassium Chloride (K-Dur -) 20 meq PO BID [facility] Last Admin: 04/07/19 09:22 Dose: 20 meq Simethicone (Mylicon -) 80 mg PO Q8H PRN PRN Reason: GAS Tamsulosin HCl (Flomax -) 0.4 mg PO DAILY@0830 [facility] Last Admin: 04/07/19 08:11 Dose: 0.4 mg Vancomycin HCl (Vancomycin Oral Solution) 125 mg PO Q6HPO [facility] Last Admin: 04/07/19 05:43 Dose: 125 mg - Objective Vital Signs: Vital Signs Temperature 97.8 F 04/07/19 08:15 Pulse Rate 84 04/07/19 08:15 Respiratory Rate 18 04/07/19 08:15 Blood Pressure 111/60 04/07/19 08:15 O2 Sat by Pulse Oximetry (%) 99 04/07/19 09:00 Constitutional: Yes: No Distress, Calm Cardiovascular: Yes: S1, S2 Respiratory: Yes: Regular, CTA Bilaterally Gastrointestinal: Yes: Normal Bowel Sounds, Soft Musculoskeletal: Yes: WNL Extremities: Yes: Other Neurological: Yes: Alert, Oriented Psychiatric: Yes: Alert, Oriented Labs: CBC, BMP 04/07/19 05:45 04/07/19 05:45 INR, PTT INR 1.11 (0.83-1.09) H 04/05/19 18:21 Assessment/Plan patient doing well repeat urine cx noted all other cx noted will stop abx continue oral vanco rest as per the team
[2019-04-07 11:33] LABS: PLATELET ESTIMATE DECREASED
[2019-04-07] MEDS ORDERED: PT OWN MED DRAWER 7, Y5N ONE (11:42)
--- NOTE | 2019-04-07 11:49 | PN ---
Progress Note, Physician Chief Complaint: in bed awake alert NAD VSS: feels tired did not sleep well last night but no other c/o - Current Medication List Current Medications: Active Medications Acetaminophen (Tylenol -) 500 mg PO Q6H PRN PRN Reason: PAIN LEVEL 1-5 Albuterol/Ipratropium (Duoneb -) 1 amp NEB Q8H PRN PRN Reason: ASTHMA Allopurinol (Zyloprim -) 100 mg PO DAILY [facility] Last Admin: 04/07/19 09:23 Dose: 100 mg Aspirin (Ecotrin -) 81 mg PO DAILY [facility] Last Admin: 04/07/19 09:22 Dose: 81 mg Atorvastatin Calcium (Lipitor -) 20 mg PO [facility] Last Admin: 04/06/19 21:12 Dose: 20 mg Bisacodyl (Dulcolax -) 5 mg PO DAILY [facility] Last Admin: 04/07/19 09:22 Dose: 5 mg Carvedilol (Coreg -) 12.5 mg PO BID [facility] Last Admin: 04/07/19 09:22 Dose: 12.5 mg Cinacalcet (Sensipar -) 30 mg PO DAILY [facility] Last Admin: 04/07/19 09:22 Dose: 30 mg Colchicine (Colcrys) 0.6 mg PO BID [facility] Last Admin: 04/07/19 09:22 Dose: 0.6 mg Famotidine (Pepcid -) 20 mg PO BID [facility] Last Admin: 04/07/19 09:22 Dose: 20 mg Furosemide (Lasix -) 80 mg PO BIDLASIX [facility] Last Admin: 04/07/19 05:44 Dose: 80 mg Gabapentin (Neurontin -) 300 mg PO [facility] Last Admin: 04/06/19 21:12 Dose: 300 mg Heparin Sodium (Porcine) (Heparin -) 5,000 unit SQ BID [facility] Last Admin: 04/07/19 09:23 Dose: 5,000 unit Hydralazine HCl (Apresoline -) 50 mg PO TID [facility] Last Admin: 04/07/19 05:43 Dose: 50 mg Insulin Aspart (Novolog Vial Sliding Scale -) 1 vial SQ [facility]; Protocol Last Admin: 04/07/19 06:11 Dose: 2 unit Insulin Detemir (Levemir Vial) 16 units SQ [facility] Last Admin: 04/06/19 21:13 Dose: 16 units Isosorbide Mononitrate (Imdur -) 90 mg PO DAILY [facility] Last Admin: 04/07/19 09:22 Dose: 90 mg Levothyroxine Sodium (Synthroid -) 50 mcg PO AM [facility] Last Admin: 04/07/19 06:11 Dose: 50 mcg Non-Formulary Medication (Latanoprost/Pf [Latanoprost 0.005% Eye Drop]) 1 drp OP HS [facility] Polyethylene Glycol (Miralax (For Daily Use) -) 17 gm PO DAILY [facility] Last Admin: 04/07/19 09:23 Dose: 17 gm Potassium Chloride (K-Dur -) 20 meq PO BID [facility] Last Admin: 04/07/19 09:22 Dose: 20 meq Simethicone (Mylicon -) 80 mg PO Q8H PRN PRN Reason: GAS Tamsulosin HCl (Flomax -) 0.4 mg PO DAILY@0830 [facility] Last Admin: 04/07/19 08:11 Dose: 0.4 mg Vancomycin HCl (Vancomycin Oral Solution) 125 mg PO Q6HPO [facility] Last Admin: 04/07/19 05:43 Dose: 125 mg - Objective Vital Signs: Vital Signs Temperature 97.8 F 04/07/19 08:15 Pulse Rate 84 04/07/19 08:15 Respiratory Rate 18 04/07/19 08:15 Blood Pressure 111/60 04/07/19 08:15 O2 Sat by Pulse Oximetry (%) 99 04/07/19 09:00 Constitutional: Yes: No Distress, Calm Eyes: Yes: Conjunctiva Clear HENT: Yes: Atraumatic Neck: Yes: Supple Cardiovascular: Yes: Regular Rate and Rhythm Respiratory: Yes: CTA Bilaterally Gastrointestinal: Yes: Soft. No: Tenderness Genitourinary: No: Hematuria Musculoskeletal: No: Joint Stiffness, Joint Swelling Extremities: No: Cold, Cool, Cyanosis Edema: No Integumentary: No: Rash, Venous Stasis Changes Neurological: Yes: WNL, Alert, Oriented ...Motor Strength: WNL Psychiatric: Yes: WNL, Alert, Oriented. No: Agitated, Suicidal Ideation Labs: CBC, BMP 04/07/19 05:45 04/07/19 05:45 INR, PTT INR 1.11 (0.83-1.09) H 04/05/19 18:21 - ....Imaging Other: Report Reviewed Assessment/Plan 83yo F with PMH of CHF, HTN, HLD, CAD, CKD, DM, hypothyroid, chronic abdominal pain, and GERD, weakness and falls, presenting from [facility] with weakness, poor po intake, chest pain, nausea, vomiting, and dysuria. s./p recent UTIs urinary retention and CDiff colitis. IV ATB per ID; IVF f/u labs and cultures falls decubs DVT Pfx d/w pt and staff d/w daughter Aicha
[2019-04-07] MEDS: ATORVASTATIN CA 20 MG TABLET (FP) PO SCH (21:53)
[2019-04-07] MEDS: GABAPENTIN 300 MG CAPSULE (FP) PO SCH (21:54)
[2019-04-07] MEDS: INSULIN (LEVEMIR) 100 UNITS/ML UNITS SQ SCH (21:55)
[2019-04-07] MEDS: SIMETHICONE 80 MG TAB.CHEW (FP) PO PRN (22:01)
[2019-04-08] MEDS: VANCOMYCIN 250 MG/5 ML ORAL SOLUTION PO SCH ×5 (00:05→23:26)
[2019-04-08] MEDS: hydrALAZINE HCL 50 MG TABLET (FP) PO SCH ×3 (06:16→21:12)
[2019-04-08] MEDS: FUROSEMIDE 40 MG TABLET (FP) PO SCH ×2 (06:17→14:27)
[2019-04-08] MEDS: INSULIN SLIDING SCALE (NOVOLOG) 1 VIAL SQ SCH ×4 (06:17→21:09)
[2019-04-08] MEDS: LEVOTHYROXINE NA 50 MCG TABLET (FP) PO SCH (06:18)
[2019-04-08] MEDS ORDERED: INSULIN SLIDING SCALE (NOVOLOG) 1 VIAL SQ ONE (07:16)
[2019-04-08] MEDS ORDERED: INSULIN (LEVEMIR) 100 UNITS/ML UNITS SQ ONE (07:16)
--- NOTE | 2019-04-08 08:15 | DS ---
Physical Examination Vital Signs: Vital Signs Temperature 97.6 F 04/08/19 05:32 Pulse Rate 77 04/08/19 05:32 Respiratory Rate 18 04/08/19 05:32 Blood Pressure 102/50 L 04/08/19 05:32 O2 Sat by Pulse Oximetry (%) 99 04/07/19 21:00 Labs: CBC, BMP 04/07/19 05:45 04/07/19 05:45 Discharge Summary Problems reviewed: Yes Reason For Visit: URINARY TRACT INFECTION CLOSTRIDIOIDES DIFFICLE Current Active Problems C. difficile diarrhea (Acute) Dehydration (Acute) UTI (urinary tract infection) (Acute) Condition: Guarded - Instructions Referrals: Jam Sunshine MD [Primary Care Provider] - - Home Medications Comprehensive Discharge Medication List: Ambulatory Orders Aspirin Coated [Ecotrin -] 81 mg PO DAILY #30 tablet.ec 07/09/16 Allopurinol [Zyloprim -] 100 mg PO DAILY 10/02/17 Atorvastatin Ca [Lipitor] 20 mg PO HS 10/02/17 Gabapentin [Neurontin -] 300 mg PO HS 10/02/17 Acetaminophen [Tylenol .Extra-Strength -] 500 mg PO Q6H PRN tablet 11/12/17 Tamsulosin HCl [Flomax -] 0.4 mg PO DAILY@0830 #90 cap.er.24h 11/12/17 Bisacodyl [Bisacodyl -] 5 mg PO DAILY 11/26/18 Carvedilol [Coreg -] 12.5 mg PO BID 11/26/18 Cinacalcet HCl [Sensipar] 30 mg PO DAILY 11/26/18 Isosorbide Mononitrate [Imdur -] 90 mg PO DAILY 11/26/18 Latanoprost/Pf [Latanoprost 0.005% Eye Drop] 1 drp OP HS 11/26/18 Polyethylene Glycol 3350 [Miralax 119 gm Btl -] 17 gm PO DAILY 11/26/18 Potassium Chloride 20 meq PO BID 11/26/18 Ranitidine HCl [Zantac] 150 mg PO BID 11/26/18 Insulin Sliding Scale [Novolog Vial Sliding Scale -] 1 vial SQ ACHS units 03/20 Albuterol 2.5/Ipratropium 0.5 [Duoneb -] 1 unit NEB TID 04/06/19 Colchicine 0.6 mg PO BID 04/06/19 Furosemide [Lasix -] 80 mg PO BID 04/06/19 Imipenem/Cilastatin Sodium [Primaxin (Restricted To Id)] 500 mg IV Q8HIV Insulin (Levemir) [Levemir Vial] 16 units SQ HS 04/06/19 Levothyroxine [Synthroid -] 50 mcg PO 0630 04/06/19 Melatonin/Pyridoxine HCl (B6) [Melatonin 5 mg Tablet] 1 each PO HS 04/06/19 Simethicone [Gas Relief] 125 mg PO TID PRN 04/06/19 Vancomycin HCl 125 mg PO Q6H 04/06/19 hydrALAZINE HCL [Apresoline -] 50 mg PO TID 04/06/19
[2019-04-08] MEDS: HEPARIN NA (PORCINE) 5,000 UNITS/ML 1ML VIAL SQ SCH ×2 (09:36→21:08)
[2019-04-08] MEDS: FAMOTIDINE 20 MG TABLET PO SCH ×2 (09:36→21:08)
[2019-04-08] MEDS: CINACALCET HCL 30 MG TAB (FP) PO SCH (09:36)
[2019-04-08] MEDS: POTASSIUM CHLORIDE TABS 20 MEQ TABLET.ER (FP) PO SCH ×2 (09:36→21:09)
[2019-04-08] MEDS: ASPIRIN COATED 81 MG TABLET.EC PO SCH (09:37)
[2019-04-08] MEDS: COLCHICINE 0.6 MG CAP PO SCH ×2 (09:37→21:08)
[2019-04-08] MEDS: ALLOPURINOL 100 MG TABLET (FP) PO SCH (09:37)
[2019-04-08] MEDS: TAMSULOSIN HCL 0.4 MG CAP PO SCH (09:37)
[2019-04-08] MEDS: BISACODYL 5 MG TABLET.DR (FP) PO SCH (09:37)
[2019-04-08] MEDS: CARVEDILOL 12.5 MG TABLET (FP) PO SCH ×2 (10:52→21:07)
[2019-04-08] MEDS: ISOSORBIDE MONONITRATE 30 MG TAB.SR.24H (FP) PO SCH (10:52)
[2019-04-08] MEDS: POLYETHYLENE GLYCOL 3350 119 GM BTL PO SCH (11:15)
--- NOTE | 2019-04-08 12:01 | PN ---
Progress Note, Physician History of Present Illness: stable no new issues - Current Medication List Current Medications: Active Medications Acetaminophen (Tylenol -) 500 mg PO Q6H PRN PRN Reason: PAIN LEVEL 1-5 Albuterol/Ipratropium (Duoneb -) 1 amp NEB Q8H PRN PRN Reason: ASTHMA Allopurinol (Zyloprim -) 100 mg PO DAILY [facility] Last Admin: 04/08/19 09:37 Dose: 100 mg Aspirin (Ecotrin -) 81 mg PO DAILY [facility] Last Admin: 04/08/19 09:37 Dose: 81 mg Atorvastatin Calcium (Lipitor -) 20 mg PO HS [facility] Last Admin: 04/07/19 21:53 Dose: 20 mg Bisacodyl (Dulcolax -) 5 mg PO DAILY [facility] Last Admin: 04/08/19 09:37 Dose: 5 mg Carvedilol (Coreg -) 12.5 mg PO BID [facility] Last Admin: 04/08/19 10:52 Dose: Not Given Cinacalcet (Sensipar -) 30 mg PO DAILY [facility] Last Admin: 04/08/19 09:36 Dose: 30 mg Colchicine (Colcrys) 0.6 mg PO BID [facility] Last Admin: 04/08/19 09:37 Dose: 0.6 mg Famotidine (Pepcid -) 20 mg PO BID [facility] Last Admin: 04/08/19 09:36 Dose: 20 mg Furosemide (Lasix -) 80 mg PO BIDLASIX [facility] Last Admin: 04/08/19 06:17 Dose: 80 mg Gabapentin (Neurontin -) 300 mg PO HS [facility] Last Admin: 04/07/19 21:54 Dose: 300 mg Heparin Sodium (Porcine) (Heparin -) 5,000 unit SQ BID [facility] Last Admin: 04/08/19 09:36 Dose: 5,000 unit Hydralazine HCl (Apresoline -) 50 mg PO TID [facility] Last Admin: 04/08/19 06:16 Dose: Not Given Insulin Aspart (Novolog Vial Sliding Scale -) 1 vial SQ [facility]; Protocol Last Admin: 04/08/19 06:17 Dose: Not Given Insulin Detemir (Levemir Vial) 16 units SQ [facility] Last Admin: 04/07/19 21:55 Dose: Not Given Isosorbide Mononitrate (Imdur -) 90 mg PO DAILY [facility] Last Admin: 04/08/19 10:52 Dose: Not Given Levothyroxine Sodium (Synthroid -) 50 mcg PO AM [facility] Last Admin: 04/08/19 06:18 Dose: 50 mcg Non-Formulary Medication (Latanoprost/Pf [Latanoprost 0.005% Eye Drop]) 1 drp OP HS [facility] Polyethylene Glycol (Miralax (For Daily Use) -) 17 gm PO DAILY [facility] Last Admin: 04/08/19 11:15 Dose: Not Given Potassium Chloride (K-Dur -) 20 meq PO BID [facility] Last Admin: 04/08/19 09:36 Dose: 20 meq Simethicone (Mylicon -) 80 mg PO Q8H PRN PRN Reason: GAS Last Admin: 04/07/19 22:01 Dose: 80 mg Tamsulosin HCl (Flomax -) 0.4 mg PO DAILY@0830 [facility] Last Admin: 04/08/19 09:37 Dose: 0.4 mg Vancomycin HCl (Vancomycin Oral Solution) 125 mg PO Q6HPO [facility] Last Admin: 04/08/19 06:17 Dose: 125 mg - Objective Vital Signs: Vital Signs Temperature 97.6 F 04/08/19 11:00 Pulse Rate 75 04/08/19 11:00 Respiratory Rate 18 04/08/19 11:00 Blood Pressure 106/47 L 04/08/19 11:00 O2 Sat by Pulse Oximetry (%) 99 04/07/19 21:00 Constitutional: Yes: No Distress, Calm Cardiovascular: Yes: S1, S2 Respiratory: Yes: Regular, CTA Bilaterally Genitourinary: Yes: Other Musculoskeletal: Yes: WNL Extremities: Yes: WNL Neurological: Yes: Alert, Oriented Psychiatric: Yes: Alert, Oriented Labs: CBC, BMP 04/07/19 05:45 04/07/19 05:45 INR, PTT INR 1.11 (0.83-1.09) H 04/05/19 18:21 Assessment/Plan patient doing well repeat urine cx noted all other cx noted finish abx for 14 days oral vanco dehydration uti cdiff weakness
[2019-04-08] MEDS ORDERED: SODIUM CHLORIDE 1,000 ML IV ONE (15:45)
--- NOTE | 2019-04-08 19:17 | PN ---
Progress Note, Physician Chief Complaint: pt switched to po ATB per ID - DC planning started but pt is very weak she is able to stand only she has some pain L foot s/p fall last month, she had local hematoma no fractures, seen previously by ortho and had xrays and CT - will ask podiatry to eval pt too - Current Medication List Current Medications: Active Medications Acetaminophen (Tylenol -) 500 mg PO Q6H PRN PRN Reason: PAIN LEVEL 1-5 Albuterol/Ipratropium (Duoneb -) 1 amp NEB Q8H PRN PRN Reason: ASTHMA Allopurinol (Zyloprim -) 100 mg PO DAILY [facility] Last Admin: 04/08/19 09:37 Dose: 100 mg Aspirin (Ecotrin -) 81 mg PO DAILY [facility] Last Admin: 04/08/19 09:37 Dose: 81 mg Atorvastatin Calcium (Lipitor -) 20 mg PO HS [facility] Last Admin: 04/07/19 21:53 Dose: 20 mg Bisacodyl (Dulcolax -) 5 mg PO DAILY [facility] Last Admin: 04/08/19 09:37 Dose: 5 mg Carvedilol (Coreg -) 12.5 mg PO BID [facility] Last Admin: 04/08/19 10:52 Dose: Not Given Cinacalcet (Sensipar -) 30 mg PO DAILY [facility] Last Admin: 04/08/19 09:36 Dose: 30 mg Colchicine (Colcrys) 0.6 mg PO BID [facility] Last Admin: 04/08/19 09:37 Dose: 0.6 mg Famotidine (Pepcid -) 20 mg PO BID [facility] Last Admin: 04/08/19 09:36 Dose: 20 mg Furosemide (Lasix -) 80 mg PO BIDLASIX [facility] Last Admin: 04/08/19 14:27 Dose: 80 mg Gabapentin (Neurontin -) 300 mg PO HS [facility] Last Admin: 04/07/19 21:54 Dose: 300 mg Heparin Sodium (Porcine) (Heparin -) 5,000 unit SQ [facility] Last Admin: 04/08/19 09:36 Dose: 5,000 unit Hydralazine HCl (Apresoline -) 50 mg PO TID [facility] Last Admin: 04/08/19 14:27 Dose: 50 mg Sodium Chloride (Normal Saline -) 1,000 mls @ 50 mls/hr IV ONCE ONE Stop: 04/09/19 11:44 Last Admin: 04/08/19 18:00 Dose: 50 mls/hr Insulin Aspart (Novolog Vial Sliding Scale -) 1 vial SQ [facility]; Protocol Last Admin: 04/08/19 17:00 Dose: Not Given Insulin Detemir (Levemir Vial) 16 units SQ [facility] Last Admin: 04/07/19 21:55 Dose: Not Given Isosorbide Mononitrate (Imdur -) 90 mg PO DAILY [facility] Last Admin: 04/08/19 10:52 Dose: Not Given Levothyroxine Sodium (Synthroid -) 50 mcg PO AM [facility] Last Admin: 04/08/19 06:18 Dose: 50 mcg Non-Formulary Medication (Latanoprost/Pf [Latanoprost 0.005% Eye Drop]) 1 drp OP [facility] Polyethylene Glycol (Miralax (For Daily Use) -) 17 gm PO DAILY [facility] Last Admin: 04/08/19 11:15 Dose: Not Given Potassium Chloride (K-Dur -) 20 meq PO BID [facility] Last Admin: 04/08/19 09:36 Dose: 20 meq Simethicone (Mylicon -) 80 mg PO Q8H PRN PRN Reason: GAS Last Admin: 04/07/19 22:01 Dose: 80 mg Tamsulosin HCl (Flomax -) 0.4 mg PO DAILY@0830 [facility] Last Admin: 04/08/19 09:37 Dose: 0.4 mg Vancomycin HCl (Vancomycin Oral Solution) 125 mg PO Q6HPO [facility] Last Admin: 04/08/19 12:50 Dose: 125 mg - Objective Vital Signs: Vital Signs Temperature 98.2 F 04/08/19 18:36 Pulse Rate 83 04/08/19 18:36 Respiratory Rate 18 04/08/19 18:36 Blood Pressure 142/52 L 04/08/19 18:36 O2 Sat by Pulse Oximetry (%) 100 04/08/19 09:00 Constitutional: Yes: No Distress, Calm Eyes: Yes: Conjunctiva Clear HENT: Yes: Atraumatic Neck: Yes: Supple Cardiovascular: Yes: Regular Rate and Rhythm Respiratory: Yes: CTA Bilaterally Gastrointestinal: Yes: Soft Genitourinary: Yes: [place] Present. No: Hematuria Edema: No Integumentary: No: Rash, Venous Stasis Changes Neurological: Yes: WNL, Alert, Oriented ...Motor Strength: WNL Psychiatric: Yes: WNL, Alert, Oriented. No: Agitated, Suicidal Ideation Labs: CBC, BMP 04/07/19 05:45 04/07/19 05:45 INR, PTT INR 1.11 (0.83-1.09) H 04/05/19 18:21 - ....Imaging Other: Report Reviewed Assessment/Plan 83yo F with PMH of CHF, HTN, HLD, CAD, CKD, DM, hypothyroid, chronic abdominal pain, and GERD, weakness and falls, presenting from [facility] with weakness, poor po intake, chest pain, nausea, vomiting, and dysuria. s./p recent UTIs urinary retention and CDiff colitis. ATB per ID; IVF f/u labs and cultures podiatry eval falls decubs DVT Pfx d/w pt and staff d/w daughter Aicha
[2019-04-08] MEDS: ACETAMINOPHEN 500 MG TABLET (FP) PO PRN (19:45)
[2019-04-08] MEDS: INSULIN (LEVEMIR) 100 UNITS/ML UNITS SQ SCH (21:08)
[2019-04-08] MEDS: ATORVASTATIN CA 20 MG TABLET (FP) PO SCH (21:08)
[2019-04-08] MEDS: GABAPENTIN 300 MG CAPSULE (FP) PO SCH (21:08)
[2019-04-09] MEDS: ACETAMINOPHEN 500 MG TABLET (FP) PO PRN (01:00)
[2019-04-09] MEDS: LEVOTHYROXINE NA 50 MCG TABLET (FP) PO SCH (06:23)
[2019-04-09] MEDS: FUROSEMIDE 40 MG TABLET (FP) PO SCH ×2 (06:23→15:21)
[2019-04-09] MEDS: INSULIN SLIDING SCALE (NOVOLOG) 1 VIAL SQ SCH ×4 (06:24→21:55)
[2019-04-09] MEDS: hydrALAZINE HCL 50 MG TABLET (FP) PO SCH ×3 (06:24→21:50)
[2019-04-09] MEDS: VANCOMYCIN 250 MG/5 ML ORAL SOLUTION PO SCH ×3 (06:24→18:00)
[2019-04-09] MEDS: COLCHICINE 0.6 MG CAP PO SCH ×2 (09:29→21:50)
[2019-04-09] MEDS: ASPIRIN COATED 81 MG TABLET.EC PO SCH (09:29)
[2019-04-09] MEDS: FAMOTIDINE 20 MG TABLET PO SCH ×2 (09:29→21:50)
[2019-04-09] MEDS: TAMSULOSIN HCL 0.4 MG CAP PO SCH (09:29)
[2019-04-09] MEDS: CINACALCET HCL 30 MG TAB (FP) PO SCH (09:29)
[2019-04-09] MEDS: CARVEDILOL 12.5 MG TABLET (FP) PO SCH ×2 (09:30→21:51)
[2019-04-09] MEDS: POTASSIUM CHLORIDE TABS 20 MEQ TABLET.ER (FP) PO SCH ×2 (09:30→21:50)
[2019-04-09] MEDS: ISOSORBIDE MONONITRATE 30 MG TAB.SR.24H (FP) PO SCH (09:30)
[2019-04-09] MEDS: POLYETHYLENE GLYCOL 3350 119 GM BTL PO SCH (09:30)
[2019-04-09] MEDS: ALLOPURINOL 100 MG TABLET (FP) PO SCH (09:30)
[2019-04-09] MEDS: BISACODYL 5 MG TABLET.DR (FP) PO SCH (09:31)
[2019-04-09] MEDS: HEPARIN NA (PORCINE) 5,000 UNITS/ML 1ML VIAL SQ SCH ×2 (10:38→21:51)
--- NOTE | 2019-04-09 12:40 | PN ---
Progress Note, Physician History of Present Illness: Pt w/o fever, chills, SOB, CP, palpitations, abd pain. Pt with weakness, on and off left foot pain - Current Medication List Current Medications: Active Medications Acetaminophen (Tylenol -) 500 mg PO Q6H PRN PRN Reason: PAIN LEVEL 1-5 Last Admin: 04/08/19 19:45 Dose: 500 mg Albuterol/Ipratropium (Duoneb -) 1 amp NEB Q8H PRN PRN Reason: ASTHMA Allopurinol (Zyloprim -) 100 mg PO DAILY [facility] Last Admin: 04/09/19 09:30 Dose: 100 mg Aspirin (Ecotrin -) 81 mg PO DAILY [facility] Last Admin: 04/09/19 09:29 Dose: 81 mg Atorvastatin Calcium (Lipitor -) 20 mg PO HS [facility] Last Admin: 04/08/19 21:08 Dose: 20 mg Bisacodyl (Dulcolax -) 5 mg PO DAILY [facility] Last Admin: 04/09/19 09:31 Dose: Not Given Carvedilol (Coreg -) 12.5 mg PO BID [facility] Last Admin: 04/09/19 09:30 Dose: 12.5 mg Cinacalcet (Sensipar -) 30 mg PO DAILY [facility] Last Admin: 04/09/19 09:29 Dose: 30 mg Colchicine (Colcrys) 0.6 mg PO BID [facility] Last Admin: 04/09/19 09:29 Dose: 0.6 mg Famotidine (Pepcid -) 20 mg PO BID [facility] Last Admin: 04/09/19 09:29 Dose: 20 mg Furosemide (Lasix -) 80 mg PO BIDLASIX [facility] Last Admin: 04/09/19 06:23 Dose: 80 mg Gabapentin (Neurontin -) 300 mg PO HS [facility] Last Admin: 04/08/19 21:08 Dose: 300 mg Heparin Sodium (Porcine) (Heparin -) 5,000 unit SQ BID [facility] Last Admin: 04/09/19 10:38 Dose: 5,000 unit Hydralazine HCl (Apresoline -) 50 mg PO TID [facility] Last Admin: 04/09/19 06:24 Dose: 50 mg Insulin Aspart (Novolog Vial Sliding Scale -) 1 vial SQ [facility]; Protocol Last Admin: 04/09/19 12:00 Dose: Not Given Insulin Detemir (Levemir Vial) 16 units SQ HS [facility] Last Admin: 04/08/19 21:08 Dose: 16 units Isosorbide Mononitrate (Imdur -) 90 mg PO DAILY [facility] Last Admin: 04/09/19 09:30 Dose: 90 mg Levothyroxine Sodium (Synthroid -) 50 mcg PO AM [facility] Last Admin: 04/09/19 06:23 Dose: 50 mcg Non-Formulary Medication (Latanoprost/Pf [Latanoprost 0.005% Eye Drop]) [address] [facility] Polyethylene Glycol (Miralax (For Daily Use) -) 17 gm PO DAILY [facility] Last Admin: 04/09/19 09:30 Dose: Not Given Potassium Chloride (K-Dur -) 20 meq PO BID [facility] Last Admin: 04/09/19 09:30 Dose: 20 meq Simethicone (Mylicon -) 80 mg PO Q8H PRN PRN Reason: GAS Last Admin: 04/07/19 22:01 Dose: 80 mg Tamsulosin HCl (Flomax -) 0.4 mg PO DAILY@0830 [facility] Last Admin: 04/09/19 09:29 Dose: 0.4 mg Vancomycin HCl (Vancomycin Oral Solution) 125 mg PO Q6HPO [facility] Last Admin: 04/09/19 12:39 Dose: 125 mg - Objective Vital Signs: Vital Signs Temperature 98.1 F 04/09/19 06:00 Pulse Rate 80 04/09/19 06:00 Respiratory Rate 16 04/09/19 06:00 Blood Pressure 152/70 04/09/19 06:00 O2 Sat by Pulse Oximetry (%) 100 04/08/19 21:00 Constitutional: Yes: No Distress, Calm Cardiovascular: Yes: Regular Rate and Rhythm, S1, S2 Respiratory: Yes: Regular, Other (coarse BS). No: Rales Gastrointestinal: Yes: Normal Bowel Sounds, Soft. No: Tenderness Edema: No Neurological: Yes: Alert, Oriented Psychiatric: Yes: Alert, Oriented Labs: CBC, BMP 04/07/19 05:45 04/07/19 05:45 INR, PTT INR 1.11 (0.83-1.09) H 04/05/19 18:21 Problem List - Problems (1) C. difficile diarrhea Code(s): A04.72 - ENTEROCOLITIS D/T CLOSTRIDIUM DIFFICILE, NOT SPCF RECUR (2) Dehydration Code(s): E86.0 - DEHYDRATION (3) Weakness Code(s): R53.1 - WEAKNESS (4) UTI (urinary tract infection) Code(s): N39.0 - URINARY TRACT INFECTION, SITE NOT SPECIFIED Qualifiers: Urinary tract infection type: site unspecified Hematuria presence: without hematuria Qualified Code(s): N39.0 - Urinary tract infection, site not specified (5) Traumatic hematoma of foot Code(s): S90.30XA - CONTUSION OF UNSPECIFIED FOOT, INITIAL ENCOUNTER (6) Diabetes mellitus Code(s): E11.9 - TYPE 2 DIABETES MELLITUS WITHOUT COMPLICATIONS Qualifiers: Diabetes mellitus type: other specified (including JAVAD) Diabetes mellitus ferry terminal supervisor insulin use: without ferry terminal supervisor use Diabetes mellitus complication status: without complication Qualified Code(s): E13.9 - Other specified diabetes mellitus without complications (7) CKD (chronic kidney disease) stage 3, GFR 30-59 ml/min Code(s): N18.3 - CHRONIC KIDNEY DISEASE, STAGE 3 (MODERATE) (8) Diastolic CHF Code(s): I50.30 - UNSPECIFIED DIASTOLIC (CONGESTIVE) HEART FAILURE (9) Urinary retention with incomplete bladder emptying Code(s): R33.9 - RETENTION OF URINE, UNSPECIFIED Assessment/Plan Pt on Vanco, PO for C Diff, per ID Podiatry consult TO encourage PT, OOBTC. Pt and family wants to take pt home AM labs
--- NOTE | 2019-04-09 13:03 | PN ---
Progress Note, Physician - Current Medication List Current Medications: Active Medications Acetaminophen (Tylenol -) 500 mg PO Q6H PRN PRN Reason: PAIN LEVEL 1-5 Last Admin: 04/08/19 19:45 Dose: 500 mg Albuterol/Ipratropium (Duoneb -) 1 amp NEB Q8H PRN PRN Reason: ASTHMA Allopurinol (Zyloprim -) 100 mg PO DAILY [facility] Last Admin: 04/09/19 09:30 Dose: 100 mg Aspirin (Ecotrin -) 81 mg PO DAILY [facility] Last Admin: 04/09/19 09:29 Dose: 81 mg Atorvastatin Calcium (Lipitor -) 20 mg PO HS [facility] Last Admin: 04/08/19 21:08 Dose: 20 mg Bisacodyl (Dulcolax -) 5 mg PO DAILY [facility] Last Admin: 04/09/19 09:31 Dose: Not Given Carvedilol (Coreg -) 12.5 mg PO BID [facility] Last Admin: 04/09/19 09:30 Dose: 12.5 mg Cinacalcet (Sensipar -) 30 mg PO DAILY [facility] Last Admin: 04/09/19 09:29 Dose: 30 mg Colchicine (Colcrys) 0.6 mg PO BID [facility] Last Admin: 04/09/19 09:29 Dose: 0.6 mg Famotidine (Pepcid -) 20 mg PO BID [facility] Last Admin: 04/09/19 09:29 Dose: 20 mg Furosemide (Lasix -) 80 mg PO BIDLASIX [facility] Last Admin: 04/09/19 06:23 Dose: 80 mg Gabapentin (Neurontin -) 300 mg PO [facility] Last Admin: 04/08/19 21:08 Dose: 300 mg Heparin Sodium (Porcine) (Heparin -) 5,000 unit SQ BID [facility] Last Admin: 04/09/19 10:38 Dose: 5,000 unit Hydralazine HCl (Apresoline -) 50 mg PO TID [facility] Last Admin: 04/09/19 06:24 Dose: 50 mg Insulin Aspart (Novolog Vial Sliding Scale -) 1 vial SQ [facility]; Protocol Last Admin: 04/09/19 12:00 Dose: Not Given Insulin Detemir (Levemir Vial) 16 units SQ [facility] Last Admin: 04/08/19 21:08 Dose: 16 units Isosorbide Mononitrate (Imdur -) 90 mg PO DAILY [facility] Last Admin: 04/09/19 09:30 Dose: 90 mg Levothyroxine Sodium (Synthroid -) 50 mcg PO AM [facility] Last Admin: 04/09/19 06:23 Dose: 50 mcg Non-Formulary Medication (Latanoprost/Pf [Latanoprost 0.005% Eye Drop]) 1 drp OP HS [facility] Polyethylene Glycol (Miralax (For Daily Use) -) 17 gm PO DAILY [facility] Last Admin: 04/09/19 09:30 Dose: Not Given Potassium Chloride (K-Dur -) 20 meq PO BID [facility] Last Admin: 04/09/19 09:30 Dose: 20 meq Simethicone (Mylicon -) 80 mg PO Q8H PRN PRN Reason: GAS Last Admin: 04/07/19 22:01 Dose: 80 mg Tamsulosin HCl (Flomax -) 0.4 mg PO DAILY@0830 [facility] Last Admin: 04/09/19 09:29 Dose: 0.4 mg Vancomycin HCl (Vancomycin Oral Solution) 125 mg PO Q6HPO [facility] Last Admin: 04/09/19 12:39 Dose: 125 mg - Objective Vital Signs: Vital Signs Temperature 98.1 F 04/09/19 06:00 Pulse Rate 80 04/09/19 06:00 Respiratory Rate 16 04/09/19 06:00 Blood Pressure 152/70 04/09/19 06:00 O2 Sat by Pulse Oximetry (%) 100 04/08/19 21:00 Labs: CBC, BMP 04/07/19 05:45 04/07/19 05:45 INR, PTT INR 1.11 (0.83-1.09) H 04/05/19 18:21
[2019-04-09] MEDS: GABAPENTIN 300 MG CAPSULE (FP) PO SCH (21:50)
[2019-04-09] MEDS: ATORVASTATIN CA 20 MG TABLET (FP) PO SCH (21:50)
[2019-04-09] MEDS: INSULIN (LEVEMIR) 100 UNITS/ML UNITS SQ SCH (21:55)
[2019-04-10] MEDS: VANCOMYCIN 250 MG/5 ML ORAL SOLUTION PO SCH ×4 (00:44→17:45)
[2019-04-10] MEDS: FUROSEMIDE 40 MG TABLET (FP) PO SCH ×2 (06:26→13:40)
[2019-04-10] MEDS: hydrALAZINE HCL 50 MG TABLET (FP) PO SCH ×3 (06:27→22:18)
[2019-04-10] MEDS: LEVOTHYROXINE NA 50 MCG TABLET (FP) PO SCH (06:27)
[2019-04-10] MEDS: INSULIN SLIDING SCALE (NOVOLOG) 1 VIAL SQ SCH ×4 (06:27→22:18)
[2019-04-10 07:08] LABS: HEMATOCRIT 28.1 % (32.4-45.2); HEMOGLOBIN 9.3 GM/dL (10.7-15.3); MCH 29.6 pg (25.7-33.7); MEAN CELL VOLUME 89.5 fl (80-96); MEAN PLT VOLUME 9.6 fl (7.5-11.1); PLATELET COUNT 108 K/MM3 (134-434); RBC 3.14 M/mm3 (3.60-5.2); RDW 19.1 % (11.6-15.6); WHITE BLOOD COUNT 4.2 K/mm3 (4.0-10.0)
[2019-04-10 08:11] LABS: ALBUMIN 2.9 g/dl (3.4-5.0); BILIRUBIN,TOTAL 0.6 mg/dL (0.2-1); BLOOD UREA NITROGEN 50.1 mg/dL (7-18); CALCIUM 8.2 mg/dL (8.5-10.1); CREATININE 2.7 mg/dL (0.55-1.3); POTASSIUM 5.6 mmol/L (3.5-5.1); TOT PROT 5.8 g/dl (6.4-8.2)
[2019-04-10] MEDS: TAMSULOSIN HCL 0.4 MG CAP PO SCH (08:41)
[2019-04-10] MEDS: CINACALCET HCL 30 MG TAB (FP) PO SCH (11:20)
[2019-04-10] MEDS: ISOSORBIDE MONONITRATE 30 MG TAB.SR.24H (FP) PO SCH (11:20)
[2019-04-10] MEDS: CARVEDILOL 12.5 MG TABLET (FP) PO SCH ×2 (11:21→22:17)
[2019-04-10] MEDS: ASPIRIN COATED 81 MG TABLET.EC PO SCH (11:21)
[2019-04-10] MEDS: COLCHICINE 0.6 MG CAP PO SCH ×2 (11:21→22:17)
[2019-04-10] MEDS: ALLOPURINOL 100 MG TABLET (FP) PO SCH (11:21)
[2019-04-10] MEDS: FAMOTIDINE 20 MG TABLET PO SCH ×2 (11:21→22:17)
[2019-04-10] MEDS: BISACODYL 5 MG TABLET.DR (FP) PO SCH (11:21)
[2019-04-10] MEDS: HEPARIN NA (PORCINE) 5,000 UNITS/ML 1ML VIAL SQ SCH ×2 (11:22→22:18)
[2019-04-10] MEDS: POTASSIUM CHLORIDE TABS 20 MEQ TABLET.ER (FP) PO SCH (11:22)
[2019-04-10] MEDS: POLYETHYLENE GLYCOL 3350 119 GM BTL PO SCH (11:22)
--- NOTE | 2019-04-10 12:27 | PN ---
Progress Note, Physician - Current Medication List Current Medications: Active Medications Acetaminophen (Tylenol -) 500 mg PO Q6H PRN PRN Reason: PAIN LEVEL 1-5 Last Admin: 04/08/19 19:45 Dose: 500 mg Albuterol/Ipratropium (Duoneb -) 1 amp NEB Q8H PRN PRN Reason: ASTHMA Allopurinol (Zyloprim -) 100 mg PO DAILY [facility] Last Admin: 04/10/19 11:21 Dose: 100 mg Aspirin (Ecotrin -) 81 mg PO DAILY [facility] Last Admin: 04/10/19 11:21 Dose: 81 mg Atorvastatin Calcium (Lipitor -) 20 mg PO HS [facility] Last Admin: 04/09/19 21:50 Dose: 20 mg Bisacodyl (Dulcolax -) 5 mg PO DAILY [facility] Last Admin: 04/10/19 11:21 Dose: 5 mg Carvedilol (Coreg -) 12.5 mg PO BID [facility] Last Admin: 04/10/19 11:21 Dose: 12.5 mg Cinacalcet (Sensipar -) 30 mg PO DAILY [facility] Last Admin: 04/10/19 11:20 Dose: 30 mg Colchicine (Colcrys) 0.6 mg PO BID [facility] Last Admin: 04/10/19 11:21 Dose: 0.6 mg Famotidine (Pepcid -) 20 mg PO BID [facility] Last Admin: 04/10/19 11:21 Dose: 20 mg Furosemide (Lasix -) 80 mg PO BIDLASIX [facility] Last Admin: 04/10/19 06:26 Dose: 80 mg Gabapentin (Neurontin -) 300 mg PO [facility] Last Admin: 04/09/19 21:50 Dose: 300 mg Heparin Sodium (Porcine) (Heparin -) 5,000 unit SQ BID [facility] Last Admin: 04/10/19 11:22 Dose: 5,000 unit Hydralazine HCl (Apresoline -) 50 mg PO TID [facility] Last Admin: 04/10/19 06:27 Dose: 50 mg Insulin Aspart (Novolog Vial Sliding Scale -) 1 vial SQ [facility]; Protocol Last Admin: 04/10/19 12:07 Dose: Not Given Insulin Detemir (Levemir Vial) 16 units SQ [facility] Last Admin: 04/09/19 21:55 Dose: 16 units Isosorbide Mononitrate (Imdur -) 90 mg PO DAILY [facility] Last Admin: 04/10/19 11:20 Dose: 90 mg Levothyroxine Sodium (Synthroid -) 50 mcg PO AM [facility] Last Admin: 04/10/19 06:27 Dose: 50 mcg Non-Formulary Medication (Latanoprost/Pf [Latanoprost 0.005% Eye Drop]) 1 drp OP HS [facility] Polyethylene Glycol (Miralax (For Daily Use) -) 17 gm PO DAILY [facility] Last Admin: 04/10/19 11:22 Dose: Not Given Potassium Chloride (K-Dur -) 20 meq PO BID [facility] Last Admin: 04/10/19 11:22 Dose: 20 meq Simethicone (Mylicon -) 80 mg PO Q8H PRN PRN Reason: GAS Last Admin: 04/07/19 22:01 Dose: 80 mg Tamsulosin HCl (Flomax -) 0.4 mg PO DAILY@0830 [facility] Last Admin: 04/10/19 08:41 Dose: 0.4 mg Vancomycin HCl (Vancomycin Oral Solution) 125 mg PO Q6HPO [facility] Last Admin: 04/10/19 06:30 Dose: 125 mg - Objective Vital Signs: Vital Signs Temperature 97.6 F 04/10/19 10:00 Pulse Rate 81 04/10/19 10:00 Respiratory Rate 18 04/10/19 10:00 Blood Pressure 134/54 L 04/10/19 10:00 O2 Sat by Pulse Oximetry (%) 100 04/09/19 21:00 Labs: CBC, BMP 04/10/19 06:00 04/10/19 06:00 INR, PTT INR 1.11 (0.83-1.09) H 04/05/19 18:21
[2019-04-10] MEDS: ACETAMINOPHEN 500 MG TABLET (FP) PO PRN ×2 (12:36→23:50)
--- NOTE | 2019-04-10 13:55 | PN ---
Progress Note, Physician History of Present Illness: Pt w/o fever, chills, SOB, CP, palpitations, abd pain. Pt with weakness. Pt's dg is at bedside. - Current Medication List Current Medications: Active Medications Acetaminophen (Tylenol -) 500 mg PO Q6H PRN PRN Reason: PAIN LEVEL 1-5 Last Admin: 04/10/19 12:36 Dose: 500 mg Albuterol/Ipratropium (Duoneb -) 1 amp NEB Q8H PRN PRN Reason: ASTHMA Allopurinol (Zyloprim -) 100 mg PO DAILY [facility] Last Admin: 04/10/19 11:21 Dose: 100 mg Aspirin (Ecotrin -) 81 mg PO DAILY [facility] Last Admin: 04/10/19 11:21 Dose: 81 mg Atorvastatin Calcium (Lipitor -) 20 mg PO HS [facility] Last Admin: 04/09/19 21:50 Dose: 20 mg Bisacodyl (Dulcolax -) 5 mg PO DAILY [facility] Last Admin: 04/10/19 11:21 Dose: 5 mg Carvedilol (Coreg -) 12.5 mg PO BID [facility] Last Admin: 04/10/19 11:21 Dose: 12.5 mg Cinacalcet (Sensipar -) 30 mg PO DAILY [facility] Last Admin: 04/10/19 11:20 Dose: 30 mg Colchicine (Colcrys) 0.6 mg PO BID [facility] Last Admin: 04/10/19 11:21 Dose: 0.6 mg Famotidine (Pepcid -) 20 mg PO BID [facility] Last Admin: 04/10/19 11:21 Dose: 20 mg Furosemide (Lasix -) 80 mg PO BIDLASIX [facility] Last Admin: 04/10/19 13:40 Dose: 80 mg Gabapentin (Neurontin -) 300 mg PO HS [facility] Last Admin: 04/09/19 21:50 Dose: 300 mg Heparin Sodium (Porcine) (Heparin -) 5,000 unit SQ BID [facility] Last Admin: 04/10/19 11:22 Dose: 5,000 unit Hydralazine HCl (Apresoline -) 50 mg PO TID [facility] Last Admin: 04/10/19 13:40 Dose: 50 mg Insulin Aspart (Novolog Vial Sliding Scale -) 1 vial SQ [facility]; Protocol Last Admin: 04/10/19 12:07 Dose: Not Given Insulin Detemir (Levemir Vial) 16 units SQ HS [facility] Last Admin: 04/09/19 21:55 Dose: 16 units Isosorbide Mononitrate (Imdur -) 90 mg PO DAILY [facility] Last Admin: 04/10/19 11:20 Dose: 90 mg Levothyroxine Sodium (Synthroid -) 50 mcg PO AM [facility] Last Admin: 04/10/19 06:27 Dose: 50 mcg Non-Formulary Medication (Latanoprost/Pf [Latanoprost 0.005% Eye Drop]) 1 drp OP [facility] Polyethylene Glycol (Miralax (For Daily Use) -) 17 gm PO DAILY [facility] Last Admin: 04/10/19 11:22 Dose: Not Given Simethicone (Mylicon -) 80 mg PO Q8H PRN PRN Reason: GAS Last Admin: 04/07/19 22:01 Dose: 80 mg Tamsulosin HCl (Flomax -) 0.4 mg PO DAILY@0830 [facility] Last Admin: 04/10/19 08:41 Dose: 0.4 mg Vancomycin HCl (Vancomycin Oral Solution) 125 mg PO Q6HPO [facility] Last Admin: 04/10/19 12:36 Dose: 125 mg - Objective Vital Signs: Vital Signs Temperature 97.6 F 04/10/19 10:00 Pulse Rate 81 04/10/19 10:00 Respiratory Rate 18 04/10/19 10:00 Blood Pressure 134/54 L 04/10/19 10:00 O2 Sat by Pulse Oximetry (%) 99 04/10/19 09:00 Constitutional: Yes: No Distress, Calm Cardiovascular: Yes: Regular Rate and Rhythm, S1, S2 Respiratory: Yes: Regular, CTA Bilaterally Gastrointestinal: Yes: Normal Bowel Sounds, Soft, Tenderness Edema: No Neurological: Yes: Alert, Oriented Labs: CBC, BMP 04/10/19 06:00 04/10/19 06:00 INR, PTT INR 1.11 (0.83-1.09) H 04/05/19 18:21 Problem List - Problems (1) C. difficile diarrhea Code(s): A04.72 - ENTEROCOLITIS D/T CLOSTRIDIUM DIFFICILE, NOT SPCF RECUR (2) Dehydration Code(s): E86.0 - DEHYDRATION (3) Weakness Code(s): R53.1 - WEAKNESS (4) UTI (urinary tract infection) Code(s): N39.0 - URINARY TRACT INFECTION, SITE NOT SPECIFIED Qualifiers: Urinary tract infection type: site unspecified Hematuria presence: without hematuria Qualified Code(s): N39.0 - Urinary tract infection, site not specified (5) Traumatic hematoma of foot Code(s): S90.30XA - CONTUSION OF UNSPECIFIED FOOT, INITIAL ENCOUNTER (6) Diabetes mellitus Code(s): E11.9 - TYPE 2 DIABETES MELLITUS WITHOUT COMPLICATIONS Qualifiers: Diabetes mellitus type: other specified (including JAVAD) Diabetes mellitus continuous churn buttermaker insulin use: without shelter use Diabetes mellitus complication status: without complication Qualified Code(s): E13.9 - Other specified diabetes mellitus without complications (7) CKD (chronic kidney disease) stage 3, GFR 30-59 ml/min Code(s): N18.3 - CHRONIC KIDNEY DISEASE, STAGE 3 (MODERATE) (8) Diastolic CHF Code(s): I50.30 - UNSPECIFIED DIASTOLIC (CONGESTIVE) HEART FAILURE (9) Urinary retention with incomplete bladder emptying Code(s): R33.9 - RETENTION OF URINE, UNSPECIFIED (10) Hyperkalemia Code(s): E87.5 - HYPERKALEMIA (11) ANDRÉS (acute kidney injury) Code(s): N17.9 - ACUTE KIDNEY FAILURE, UNSPECIFIED Assessment/Plan Pt on Vanco, PO for C Diff, per ID Podiatry consult Repeat Bladder scan to r/o UO Repeat BMP this afternoon; pt received Lasix Renal consult I encourage PO fluid intake, PT, OOBTC. AM labs
--- NOTE | 2019-04-10 14:35 | CONSULT ---
Consult Consult Specialty:: Podiatry Consult done at approximately 12:45pm today Reason for Consultation:: Painful lump on left foot 1 month duration fell at home. - History of Present Illness History of Present Illness: Patient fell at home. - History Source History Provided By: Family Member - Past Medical History Cardio/Vascular: Yes: CAD (non-obstructive), CHF, HTN, Hyperlipdemia, Other ( Angina pectoris) Gastrointestinal: Yes: Constipation, Diverticulosis, GERD, Other (colon polyps: sessil serrated adenomas x 2 2014) Renal/: Yes: Renal Inusuff Musculoskeletal: Yes: Other Endocrine: Yes: Diabetes Mellitus (Insulin dependent), Hypothyroidism - Past Surgical History Past Surgical History: Yes: Hysterectomy ([place], BSO in 1981), Oopherectomy - Alcohol/Substance Use Hx Alcohol Use: No History of Substance Use: reports: None - Smoking History Smoking history: Never smoked Have you smoked in the past 12 months: No Aproximately how many cigarettes per day: 0 - Social History Usual Living Arrangement: With Spouse ADL: Independent History of Recent Travel: Yes (WENT TO [facility] TWO YEARS AGO) Home Medications - Allergies Allergies/Adverse Reactions: Allergies Allergy/AdvReac Type Severity Reaction Status Date / Time No Known Allergies Allergy Verified 04/05/19 15:10 - Home Medications Home Medications: Ambulatory Orders Aspirin Coated [Ecotrin -] 81 mg PO DAILY #30 tablet.ec 07/09/16 Allopurinol [Zyloprim -] 100 mg PO DAILY 10/02/17 Atorvastatin Ca [Lipitor] 20 mg PO HS 10/02/17 Gabapentin [Neurontin -] 300 mg PO HS 10/02/17 Acetaminophen [Tylenol .Extra-Strength -] 500 mg PO Q6H PRN tablet 11/12/17 Tamsulosin HCl [Flomax -] 0.4 mg PO DAILY@0830 #90 cap.er.24h 11/12/17 Bisacodyl [Bisacodyl -] 5 mg PO DAILY 11/26/18 Carvedilol [Coreg -] 12.5 mg PO BID 11/26/18 Cinacalcet HCl [Sensipar] 30 mg PO DAILY 11/26/18 Isosorbide Mononitrate [Imdur -] 90 mg PO DAILY 11/26/18 Latanoprost/Pf [Latanoprost 0.005% Eye Drop] 1 drp OP HS 11/26/18 Polyethylene Glycol 3350 [Miralax 119 gm Btl -] 17 gm PO DAILY 11/26/18 Potassium Chloride 20 meq PO BID 11/26/18 Ranitidine HCl [Zantac] 150 mg PO BID 11/26/18 Insulin Sliding Scale [Novolog Vial Sliding Scale -] 1 vial SQ ACHS units 03/20 Albuterol 2.5/Ipratropium 0.5 [Duoneb -] 1 unit NEB TID 04/06/19 Colchicine 0.6 mg PO BID 04/06/19 Furosemide [Lasix -] 80 mg PO BID 04/06/19 Insulin (Levemir) [Levemir Vial] 16 units SQ HS 04/06/19 Levothyroxine [Synthroid -] [place] [address]/06/19 Melatonin/Pyridoxine HCl (B6) [Melatonin 5 mg Tablet] 1 each PO HS 04/06/19 Simethicone [Gas Relief] 125 mg PO TID PRN 04/06/19 Vancomycin HCl 125 mg PO Q6H 04/06/19 hydrALAZINE HCL [Apresoline -] 50 mg PO TID 04/06/19 Lactobacillus Acidophilus [Bacid -] 1 each PO DAILY #30 capsule 04/08/19 Vancomycin Oral Solution 125 mg PO Q6HPO 10 Days #100 ml 04/08/19 Physical Exam Vital Signs: Vital Signs Temperature 97.6 F 04/10/19 10:00 Pulse Rate 81 04/10/19 10:00 Respiratory Rate 18 04/10/19 10:00 Blood Pressure 134/54 L 04/10/19 10:00 O2 Sat by Pulse Oximetry (%) 99 04/10/19 09:00 Extremities: Yes: Other (vsgi, +tender left foot dorsum, +palpable fluctuant mass, -open wound, -drainage,) Labs: CBC, BMP 04/10/19 06:00 04/10/19 06:00 Assessment/Plan 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 MRI ordered. Will follow and decide on tx plan after reviewing studies.
[2019-04-10] MEDS ORDERED: SODIUM CHLORIDE 1,000 ML IV SCH (17:00)
[2019-04-10 19:02] LABS: URINE APPEARANCE CLEAR; URINE BILIRUBIN NEGATIVE (NEGATIVE); URINE COLOR YELLOW; URINE GLUCOSE (UA) NEGATIVE (NEGATIVE); URINE KETONE NEGATIVE (NEGATIVE); URINE LEUK ESTERASE NEGATIVE (NEGATIVE); URINE NITRITE NEGATIVE (NEGATIVE); URINE PROTEIN NEGATIVE (NEGATIVE); URINE UROBILINOGEN 0.2 mg/dL (0.2-1.0)
[2019-04-10] MEDS: GABAPENTIN 300 MG CAPSULE (FP) PO SCH (22:17)
[2019-04-10] MEDS: ATORVASTATIN CA 20 MG TABLET (FP) PO SCH (22:17)
[2019-04-10] MEDS: INSULIN (LEVEMIR) 100 UNITS/ML UNITS SQ SCH (22:18)
[2019-04-10] MEDS: LATANOPROST 0.005% OPHTH SOLN 2.5ML BOTTLE OU SCH (23:40)
[2019-04-10] MEDS ORDERED: PT OWN MED DRAWER 7, Y5N ONE (23:53)
[2019-04-11] MEDS: VANCOMYCIN 250 MG/5 ML ORAL SOLUTION PO SCH ×4 (01:02→17:40)
[2019-04-11] MEDS ORDERED: MELATONIN 5 MG TABLETS PO STA (01:06)
[2019-04-11 01:10] LABS: BLOOD UREA NITROGEN 52.9 mg/dL (7-18); CALCIUM 7.9 mg/dL (8.5-10.1); CREATININE 2.1 mg/dL (0.55-1.3); POTASSIUM 5.2 mmol/L (3.5-5.1)
[2019-04-11] MEDS ORDERED: PT OWN MED DRAWER 7, Y5N ONE (05:39)
[2019-04-11] MEDS: LEVOTHYROXINE NA 50 MCG TABLET (FP) PO SCH (06:09)
[2019-04-11] MEDS: hydrALAZINE HCL 50 MG TABLET (FP) PO SCH ×3 (06:09→23:14)
[2019-04-11] MEDS: INSULIN SLIDING SCALE (NOVOLOG) 1 VIAL SQ SCH ×4 (06:10→23:15)
[2019-04-11] MEDS: ACETAMINOPHEN 500 MG TABLET (FP) PO PRN (06:11)
[2019-04-11 06:56] LABS: HEMATOCRIT 26.5 % (32.4-45.2); HEMOGLOBIN 8.7 GM/dL (10.7-15.3); MCH 29.2 pg (25.7-33.7); MCHC 32.7 g/dl (32.0-36.0); MEAN CELL VOLUME 89.4 fl (80-96); MEAN PLT VOLUME 9.4 fl (7.5-11.1); PLATELET COUNT 97 K/MM3 (134-434); RBC 2.96 M/mm3 (3.60-5.2); WHITE BLOOD COUNT 3.6 K/mm3 (4.0-10.0)
[2019-04-11 07:52] LABS: ALBUMIN 2.8 g/dl (3.4-5.0); BILIRUBIN,TOTAL 0.7 mg/dL (0.2-1); BLOOD UREA NITROGEN 47.4 mg/dL (7-18); CALCIUM 7.9 mg/dL (8.5-10.1); PHOSPHOROUS 3.9 mg/dL (2.5-4.9); TOT PROT 5.6 g/dl (6.4-8.2)
[2019-04-11] MEDS: TAMSULOSIN HCL 0.4 MG CAP PO SCH (08:17)
[2019-04-11] MEDS: CINACALCET HCL 30 MG TAB (FP) PO SCH (09:04)
[2019-04-11] MEDS: COLCHICINE 0.6 MG CAP PO SCH ×2 (09:04→23:14)
[2019-04-11] MEDS: ISOSORBIDE MONONITRATE 30 MG TAB.SR.24H (FP) PO SCH (09:04)
[2019-04-11] MEDS: ALLOPURINOL 100 MG TABLET (FP) PO SCH (09:05)
[2019-04-11] MEDS: ASPIRIN COATED 81 MG TABLET.EC PO SCH (09:05)
[2019-04-11] MEDS: POLYETHYLENE GLYCOL 3350 119 GM BTL PO SCH (09:05)
[2019-04-11] MEDS: HEPARIN NA (PORCINE) 5,000 UNITS/ML 1ML VIAL SQ SCH ×2 (09:05→23:14)
[2019-04-11] MEDS: FAMOTIDINE 20 MG TABLET PO SCH ×2 (09:05→23:14)
[2019-04-11] MEDS: CARVEDILOL 12.5 MG TABLET (FP) PO SCH ×2 (09:05→23:14)
[2019-04-11] MEDS: BISACODYL 5 MG TABLET.DR (FP) PO SCH (09:05)
--- NOTE | 2019-04-11 11:14 | PN ---
Progress Note, Physician Chief Complaint: in bed generally weak poor po intake - Current Medication List Current Medications: Active Medications Acetaminophen (Tylenol -) 500 mg PO Q6H PRN PRN Reason: PAIN LEVEL 1-5 Last Admin: 04/11/19 06:11 Dose: 500 mg Albuterol/Ipratropium (Duoneb -) 1 amp NEB Q8H PRN PRN Reason: ASTHMA Allopurinol (Zyloprim -) 100 mg PO DAILY [facility] Last Admin: 04/11/19 09:05 Dose: 100 mg Aspirin (Ecotrin -) 81 mg PO DAILY [facility] Last Admin: 04/11/19 09:05 Dose: 81 mg Atorvastatin Calcium (Lipitor -) 20 mg PO [facility] Last Admin: 04/10/19 22:17 Dose: 20 mg Bisacodyl (Dulcolax -) 5 mg PO DAILY [facility] Last Admin: 04/11/19 09:05 Dose: 5 mg Carvedilol (Coreg -) 12.5 mg PO BID [facility] Last Admin: 04/11/19 09:05 Dose: 12.5 mg Cinacalcet (Sensipar -) 30 mg PO DAILY [facility] Last Admin: 04/11/19 09:04 Dose: 30 mg Colchicine (Colcrys) 0.6 mg PO BID [facility] Last Admin: 04/11/19 09:04 Dose: 0.6 mg Famotidine (Pepcid -) 20 mg PO BID [facility] Last Admin: 04/11/19 09:05 Dose: 20 mg Furosemide (Lasix -) 80 mg PO BIDLASIX [facility] Last Admin: 04/10/19 13:40 Dose: 80 mg Gabapentin (Neurontin -) 300 mg PO HS [facility] Last Admin: 04/10/19 22:17 Dose: 300 mg Heparin Sodium (Porcine) (Heparin -) 5,000 unit SQ BID [facility] Last Admin: 04/11/19 09:05 Dose: 5,000 unit Hydralazine HCl (Apresoline -) 50 mg PO TID [facility] Last Admin: 04/11/19 06:09 Dose: 50 mg Insulin Aspart (Novolog Vial Sliding Scale -) 1 vial SQ [facility]; Protocol Last Admin: 04/11/19 06:10 Dose: Not Given Insulin Detemir (Levemir Vial) 16 units SQ [facility] Last Admin: 04/10/19 22:18 Dose: 16 units Isosorbide Mononitrate (Imdur -) 90 mg PO DAILY [facility] Last Admin: 04/11/19 09:04 Dose: 90 mg Latanoprost (Xalatan 0.005% Eye Drops -) 1 drop OU HS [facility] Last Admin: 04/10/19 23:40 Dose: 1 drop Levothyroxine Sodium (Synthroid -) 50 mcg PO AM [facility] Last Admin: 04/11/19 06:09 Dose: 50 mcg Polyethylene Glycol (Miralax (For Daily Use) -) 17 gm PO DAILY [facility] Last Admin: 04/11/19 09:05 Dose: Not Given Simethicone (Mylicon -) 80 mg PO Q8H PRN PRN Reason: GAS Last Admin: 04/07/19 22:01 Dose: 80 mg Tamsulosin HCl (Flomax -) 0.4 mg PO DAILY@0830 [facility] Last Admin: 04/11/19 08:17 Dose: 0.4 mg Vancomycin HCl (Vancomycin Oral Solution) 125 mg PO Q6HPO [facility] Last Admin: 04/11/19 06:10 Dose: 125 mg - Objective Vital Signs: Vital Signs Temperature 97.7 F 04/11/19 09:00 Pulse Rate 78 04/11/19 09:00 Respiratory Rate 18 04/11/19 09:00 Blood Pressure 129/59 L 04/11/19 09:00 O2 Sat by Pulse Oximetry (%) 100 04/10/19 21:00 Constitutional: Yes: No Distress Eyes: Yes: Conjunctiva Clear HENT: Yes: Atraumatic Neck: Yes: Supple Cardiovascular: Yes: Regular Rate and Rhythm Respiratory: Yes: Diminished Gastrointestinal: Yes: Soft. No: Tenderness Genitourinary: No: Hematuria Musculoskeletal: No: Joint Stiffness, Joint Swelling Extremities: No: Cold, Cool, Cyanosis Edema: No Integumentary: No: Rash, Venous Stasis Changes Neurological: Yes: Alert Psychiatric: Yes: Alert. No: Agitated Labs: CBC, BMP 04/11/19 06:20 04/11/19 06:20 INR, PTT INR 1.11 (0.83-1.09) H 04/05/19 18:21 - ....Imaging Other: Report Reviewed Assessment/Plan 83yo F with PMH of CHF, HTN, HLD, CAD, CKD, DM, hypothyroid, chronic abdominal pain, and GERD, weakness and falls, admitted with weakness, poor po intake, chest pain, nausea, vomiting, and dysuria. s./p recent UTIs urinary retention and CDiff colitis. Now with ARF / CRF ATB per ID; IVF; renal eval f/u labs and cultures podiatry eval for L foot lump / pain falls decubs DVT Pfx d/w pt and staff
--- NOTE | 2019-04-11 11:43 | PN ---
Progress Note, Physician History of Present Illness: no new issues podiatry note noted - Current Medication List Current Medications: Active Medications Acetaminophen (Tylenol -) 500 mg PO Q6H PRN PRN Reason: PAIN LEVEL 1-5 Last Admin: 04/11/19 06:11 Dose: 500 mg Albuterol/Ipratropium (Duoneb -) 1 amp NEB Q8H PRN PRN Reason: ASTHMA Allopurinol (Zyloprim -) 100 mg PO DAILY [facility] Last Admin: 04/11/19 09:05 Dose: 100 mg Aspirin (Ecotrin -) 81 mg PO DAILY [facility] Last Admin: 04/11/19 09:05 Dose: 81 mg Atorvastatin Calcium (Lipitor -) 20 mg PO [facility] Last Admin: 04/10/19 22:17 Dose: 20 mg Bisacodyl (Dulcolax -) 5 mg PO DAILY [facility] Last Admin: 04/11/19 09:05 Dose: 5 mg Carvedilol (Coreg -) 12.5 mg PO BID [facility] Last Admin: 04/11/19 09:05 Dose: 12.5 mg Cinacalcet (Sensipar -) 30 mg PO DAILY [facility] Last Admin: 04/11/19 09:04 Dose: 30 mg Colchicine (Colcrys) 0.6 mg PO BID [facility] Last Admin: 04/11/19 09:04 Dose: 0.6 mg Famotidine (Pepcid -) 20 mg PO BID [facility] Last Admin: 04/11/19 09:05 Dose: 20 mg Furosemide (Lasix -) 80 mg PO BIDLASIX [facility] Last Admin: 04/10/19 13:40 Dose: 80 mg Gabapentin (Neurontin -) 300 mg PO [facility] Last Admin: 04/10/19 22:17 Dose: 300 mg Heparin Sodium (Porcine) (Heparin -) 5,000 unit SQ BID [facility] Last Admin: 04/11/19 09:05 Dose: 5,000 unit Hydralazine HCl (Apresoline -) 50 mg PO TID [facility] Last Admin: 04/11/19 06:09 Dose: 50 mg Insulin Aspart (Novolog Vial Sliding Scale -) 1 vial SQ [facility]; Protocol Last Admin: 04/11/19 06:10 Dose: Not Given Insulin Detemir (Levemir Vial) 16 units SQ [facility] Last Admin: 04/10/19 22:18 Dose: 16 units Isosorbide Mononitrate (Imdur -) 90 mg PO DAILY [facility] Last Admin: 04/11/19 09:04 Dose: 90 mg Latanoprost (Xalatan 0.005% Eye Drops -) 1 drop OU HS [facility] Last Admin: 04/10/19 23:40 Dose: 1 drop Levothyroxine Sodium (Synthroid -) 50 mcg PO AM [facility] Last Admin: 04/11/19 06:09 Dose: 50 mcg Polyethylene Glycol (Miralax (For Daily Use) -) 17 gm PO DAILY [facility] Last Admin: 04/11/19 09:05 Dose: Not Given Simethicone (Mylicon -) 80 mg PO Q8H PRN PRN Reason: GAS Last Admin: 04/07/19 22:01 Dose: 80 mg Tamsulosin HCl (Flomax -) 0.4 mg PO DAILY@0830 [facility] Last Admin: 04/11/19 08:17 Dose: 0.4 mg Vancomycin HCl (Vancomycin Oral Solution) 125 mg PO Q6HPO [facility] Last Admin: 04/11/19 06:10 Dose: 125 mg - Objective Vital Signs: Vital Signs Temperature 97.7 F 04/11/19 09:00 Pulse Rate 78 04/11/19 09:00 Respiratory Rate 18 04/11/19 09:00 Blood Pressure 129/59 L 04/11/19 09:00 O2 Sat by Pulse Oximetry (%) 100 04/11/19 09:00 Constitutional: Yes: No Distress, Calm Cardiovascular: Yes: S1, S2 Respiratory: Yes: Regular, CTA Bilaterally Gastrointestinal: Yes: Normal Bowel Sounds, Soft Musculoskeletal: Yes: WNL Extremities: Yes: Other Neurological: Yes: Alert, Oriented Psychiatric: Yes: Alert, Oriented Labs: CBC, BMP 04/11/19 06:20 04/11/19 06:20 INR, PTT INR 1.11 (0.83-1.09) H 04/05/19 18:21 Assessment/Plan patient doing well repeat urine cx noted all other cx noted finish abx for 14 days oral vanco dehydration uti cdiff weakness await for imaging studies to look at the lump on the leg
--- NOTE | 2019-04-11 14:33 | CONSULT ---
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 Seen and examined at the bedside. She reports feeling weak. Has poor oral intake. Has had frequency loose BM throughout the hospital admission. Was on Lasix 80mg PO BID. No contrast exposure or overt hypotension noted. No NSAID exposure. No skin rash. Denies any sob, cp, abd pain, fever or chills. Making urine. PMHx: as above Allergies: NKDA Family Hx: NC Social Hx: No T/A/D ROS: as per HPI, all other pertinent ros negative Home Medications Medication Instructions Recorded Aspirin Coated [Ecotrin -] 81 mg PO DAILY #30 tablet.ec 07/09/16 Allopurinol [Zyloprim -] 100 mg PO DAILY 10/02/17 Atorvastatin Ca [Lipitor] 20 mg PO HS 10/02/17 Gabapentin [Neurontin -] 300 mg PO HS 10/02/17 Acetaminophen [Tylenol 500 mg PO Q6H PRN tablet 11/12/17 .Extra-Strength -] Tamsulosin HCl [Flomax -] 0.4 mg PO DAILY@0830 #90 cap.er.24h 11/12/17 Bisacodyl [Bisacodyl -] 5 mg PO DAILY 11/26/18 Carvedilol [Coreg -] 12.5 mg PO BID 11/26/18 Cinacalcet HCl [Sensipar] 30 mg PO DAILY 11/26/18 Isosorbide Mononitrate [Imdur -] 90 mg PO DAILY 11/26/18 Latanoprost/Pf [Latanoprost 0.005% 1 drp OP HS 11/26/18 Eye Drop] Polyethylene Glycol 3350 [Miralax 17 gm PO DAILY 11/26/18 119 gm Btl -] Potassium Chloride 20 meq PO BID 11/26/18 Ranitidine HCl [Zantac] 150 mg PO BID 11/26/18 Insulin Sliding Scale [Novolog 1 vial SQ ACHS units 03/20/19 Vial Sliding Scale -] Albuterol 2.5/Ipratropium 0.5 1 unit NEB TID 04/06/19 [Duoneb -] Colchicine 0.6 mg PO BID 04/06/19 Furosemide [Lasix -] 80 mg PO BID 04/06/19 Insulin (Levemir) [Levemir Vial] 16 units SQ HS 04/06/19 Levothyroxine [Synthroid -] 50 mcg PO 0630 04/06/19 Melatonin/Pyridoxine HCl (B6) 1 each PO HS 04/06/19 [Melatonin 5 mg Tablet] Simethicone [Gas Relief] 125 mg PO TID PRN 04/06/19 Vancomycin HCl 125 mg PO Q6H 04/06/19 hydrALAZINE HCL [Apresoline -] 50 mg PO TID 04/06/19 Lactobacillus Acidophilus [Bacid -] 1 each PO DAILY #30 capsule 04/08/19 Vancomycin Oral Solution 125 mg PO Q6HPO 10 Days #100 ml 04/08/19 Vital Signs Temperature 98.3 F 04/11/19 14:06 Pulse Rate 76 04/11/19 14:06 Respiratory Rate 18 04/11/19 14:06 Blood Pressure 114/60 04/11/19 14:06 O2 Sat by Pulse Oximetry (%) 100 04/11/19 09:00 Intake & Output 04/08/19 04/09/19 04/10/19 04/11/19 23:59 23:59 23:59 23:59 Intake Total 1160 4680 200 7286 Output Total 588 029 5400 1100 Balance 660 460 -870 0 NAD awake and alert neck supple no JVD RRR soft NT/ND no LE edema, clubbing or cyanosis CBC, BMP 04/11/19 06:20 04/11/19 06:20 Current Medications Acetaminophen (Tylenol -) 500 mg PO Q6H PRN PRN Reason: PAIN LEVEL 1-5 Last Admin: 04/11/19 06:11 Dose: 500 mg Albuterol/Ipratropium (Duoneb -) 1 amp NEB Q8H PRN PRN Reason: ASTHMA Allopurinol (Zyloprim -) 100 mg PO DAILY [facility] Last Admin: 04/11/19 09:05 Dose: 100 mg Aspirin (Ecotrin -) 81 mg PO DAILY [facility] Last Admin: 04/11/19 09:05 Dose: 81 mg Atorvastatin Calcium (Lipitor -) 20 mg PO HS [facility] Last Admin: 10/23/19 22:17 Dose: 20 mg Bisacodyl (Dulcolax -) 5 mg PO DAILY [facility] Last Admin: 04/11/19 09:05 Dose: 5 mg Carvedilol (Coreg -) 12.5 mg PO BID [facility] Last Admin: 04/11/19 09:05 Dose: 12.5 mg Cinacalcet (Sensipar -) 30 mg PO DAILY [facility] Last Admin: 04/11/19 09:04 Dose: 30 mg Colchicine (Colcrys) 0.6 mg PO BID [facility] Last Admin: 04/11/19 09:04 Dose: 0.6 mg Famotidine (Pepcid -) 20 mg PO BID [facility] Last Admin: 04/11/19 09:05 Dose: 20 mg Furosemide (Lasix -) 80 mg PO BIDLASIX [facility] Last Admin: 04/10/19 13:40 Dose: 80 mg Gabapentin (Neurontin -) 300 mg PO HS [facility] Last Admin: 04/10/19 22:17 Dose: 300 mg Heparin Sodium (Porcine) (Heparin -) 5,000 unit SQ BID [facility] Last Admin: 04/11/19 09:05 Dose: 5,000 unit Hydralazine HCl (Apresoline -) 50 mg PO TID [facility] Last Admin: 04/11/19 14:11 Dose: 50 mg Insulin Aspart (Novolog Vial Sliding Scale -) 1 vial SQ [facility]; Protocol Last Admin: 04/11/19 12:08 Dose: Not Given Insulin Detemir (Levemir Vial) 16 units SQ [facility] Last Admin: 04/10/19 22:18 Dose: 16 units Isosorbide Mononitrate (Imdur -) 90 mg PO DAILY [facility] Last Admin: 04/11/19 09:04 Dose: 90 mg Latanoprost (Xalatan 0.005% Eye Drops -) 1 drop OU HS [facility] Last Admin: 04/10/19 23:40 Dose: 1 drop Levothyroxine Sodium (Synthroid -) 50 mcg PO AM [facility] Last Admin: 04/11/19 06:09 Dose: 50 mcg Polyethylene Glycol (Miralax (For Daily Use) -) 17 gm PO DAILY [facility] Last Admin: 04/11/19 09:05 Dose: Not Given Simethicone (Mylicon -) 80 mg PO Q8H PRN PRN Reason: GAS Last Admin: 04/07/19 22:01 Dose: 80 mg Tamsulosin HCl (Flomax -) 0.4 mg PO DAILY@0830 [facility] Last Admin: 04/11/19 08:17 Dose: 0.4 mg Vancomycin HCl (Vancomycin Oral Solution) 125 mg PO Q6HPO [facility] Last Admin: 04/11/19 12:27 Dose: 125 mg 83 year old [place] woman with history of CKD stage 3/4 (baseline Cr 1.5-1.7 ), CHF, hypertension, CAD, hypothyrodisim who presented from [place] with generalized weakness and found to have active C-diff colitis and developed ANDRÉS. 1. Acute kidney injury secondary to intravascular volume depletion 2. CKD 3. C. diff colitis 4. hx of CHF w/o acute exacerbation 5. Anemia Urine studies show FeUrea of 30% indicating pre-renal injury; UA without proteinuira or blood. Renal US showed no obstruction Would continue LR at 50cc per hour hold diuretics at this time no CHRISTINE/ARB, NSAIDs, or IV contrast dose all meds for CrCl < 15 as pt is in acute injury no acute need for LINOLEUM LAYER discussed case with daughter at the bedside Thank you Wm Tian DO
[2019-04-11] MEDS ORDERED: LACTATED RINGERS SOLUTION 1,000 ML/1,000 ML INFUS.BAG IV SCH (14:45)
[2019-04-11] MEDS: GABAPENTIN 300 MG CAPSULE (FP) PO SCH (23:14)
[2019-04-11] MEDS: ATORVASTATIN CA 20 MG TABLET (FP) PO SCH (23:14)
[2019-04-11] MEDS: INSULIN (LEVEMIR) 100 UNITS/ML UNITS SQ SCH (23:14)
[2019-04-11] MEDS: LATANOPROST 0.005% OPHTH SOLN 2.5ML BOTTLE OU SCH (23:15)
[2019-04-12] MEDS: VANCOMYCIN 250 MG/5 ML ORAL SOLUTION PO SCH ×5 (00:23→23:56)
[2019-04-12] MEDS: hydrALAZINE HCL 50 MG TABLET (FP) PO SCH ×3 (06:30→22:40)
[2019-04-12] MEDS: INSULIN SLIDING SCALE (NOVOLOG) 1 VIAL SQ SCH ×4 (06:42→22:41)
[2019-04-12] MEDS: LEVOTHYROXINE NA 50 MCG TABLET (FP) PO SCH (06:51)
[2019-04-12] MEDS: CARVEDILOL 12.5 MG TABLET (FP) PO SCH ×2 (09:20→22:40)
[2019-04-12] MEDS: ALLOPURINOL 100 MG TABLET (FP) PO SCH (09:20)
[2019-04-12] MEDS: HEPARIN NA (PORCINE) 5,000 UNITS/ML 1ML VIAL SQ SCH ×2 (09:20→22:40)
[2019-04-12] MEDS: ASPIRIN COATED 81 MG TABLET.EC PO SCH (09:20)
[2019-04-12] MEDS: FAMOTIDINE 20 MG TABLET PO SCH ×2 (09:20→22:40)
[2019-04-12] MEDS: CINACALCET HCL 30 MG TAB (FP) PO SCH (09:20)
[2019-04-12] MEDS: COLCHICINE 0.6 MG CAP PO SCH ×2 (09:20→22:40)
[2019-04-12] MEDS: ISOSORBIDE MONONITRATE 30 MG TAB.SR.24H (FP) PO SCH (09:20)
[2019-04-12] MEDS: TAMSULOSIN HCL 0.4 MG CAP PO SCH (09:20)
[2019-04-12] MEDS: POLYETHYLENE GLYCOL 3350 119 GM BTL PO SCH (09:21)
[2019-04-12] MEDS: BISACODYL 5 MG TABLET.DR (FP) PO SCH (11:00)
[2019-04-12 11:16] LABS: BLOOD UREA NITROGEN 44.8 mg/dL (7-18); CALCIUM 7.7 mg/dL (8.5-10.1); CREATININE 1.5 mg/dL (0.55-1.3); POTASSIUM 4.2 mmol/L (3.5-5.1)
[2019-04-12] MEDS ORDERED: INSULIN SLIDING SCALE (NOVOLOG) 1 VIAL SQ ONE (11:30)
--- NOTE | 2019-04-12 12:02 | PN ---
Progress Note (short form) - Note Progress Note: Patient seen in bed with daughter present. +palpable mass, xray reviewed non-osseus in appearance, Tumor left foot Awaiting MRI result. May need drainage or excision of mass to resolve. Will follow.
--- NOTE | 2019-04-12 12:35 | PN ---
Progress Note (short form) - Note Progress Note: Renal follow up for ANDRÉS on CKD Seen and examined at the bedside awake and alert still has poor oral intake denies any loose stools no abd pain, N/V Vital Signs Temperature 97.5 F L 04/12/19 09:28 Pulse Rate 78 04/12/19 09:28 Respiratory Rate 18 04/12/19 09:28 Blood Pressure 131/58 L 04/12/19 09:28 O2 Sat by Pulse Oximetry (%) 98 04/12/19 08:31 Intake & Output 04/09/19 04/10/19 04/11/19 04/12/19 23:59 23:59 23:59 23:59 Intake Total 4034 679 1456 1040 Output Total 700 1600 2400 Balance 460 -870 -820 1040 NAD awake and alert necks supple RRR CTA soft NT/ND no LE edema CBC, BMP 04/11/19 06:20 04/12/19 06:10 Current Medications Acetaminophen (Tylenol -) 500 mg PO Q6H PRN PRN Reason: PAIN LEVEL 1-5 Last Admin: 04/11/19 06:11 Dose: 500 mg Albuterol/Ipratropium (Duoneb -) 1 amp NEB Q8H PRN PRN Reason: ASTHMA Allopurinol (Zyloprim -) 100 mg PO DAILY [facility] Last Admin: 04/12/19 09:20 Dose: 100 mg Aspirin (Ecotrin -) 81 mg PO DAILY [facility] Last Admin: 04/12/19 09:20 Dose: 81 mg Atorvastatin Calcium (Lipitor -) 20 mg PO HS [facility] Last Admin: 04/11/19 23:14 Dose: 20 mg Bisacodyl (Dulcolax -) 5 mg PO DAILY [facility] Last Admin: 04/12/19 11:00 Dose: Not Given Carvedilol (Coreg -) 12.5 mg PO BID [facility] Last Admin: 04/12/19 09:20 Dose: 12.5 mg Cinacalcet (Sensipar -) 30 mg PO DAILY [facility] Last Admin: 04/12/19 09:20 Dose: 30 mg Colchicine (Colcrys) 0.6 mg PO BID [facility] Last Admin: 04/12/19 09:20 Dose: 0.6 mg Famotidine (Pepcid -) 20 mg PO BID [facility] Last Admin: 04/12/19 09:20 Dose: 20 mg Gabapentin (Neurontin -) 300 mg PO HS [facility] Last Admin: 04/11/19 23:14 Dose: 300 mg Heparin Sodium (Porcine) (Heparin -) 5,000 unit SQ BID [facility] Last Admin: 04/12/19 09:20 Dose: 5,000 unit Hydralazine HCl (Apresoline -) 50 mg PO TID [facility] Last Admin: 04/12/19 06:30 Dose: 50 mg Lactated Ringer's (Lactated Ringers Solution) 1,000 ml in 1,000 mls @ 50 mls/ hr IV ASDIR [facility] Last Admin: 04/11/19 15:02 Dose: 50 mls/hr Insulin Aspart (Novolog Vial Sliding Scale -) 1 vial SQ [facility]; Protocol Last Admin: 04/12/19 11:42 Dose: Not Given Insulin Detemir (Levemir Vial) 16 units SQ HS [facility] Last Admin: 04/11/19 23:14 Dose: 16 units Isosorbide Mononitrate (Imdur -) 90 mg PO DAILY [facility] Last Admin: 04/12/19 09:20 Dose: 90 mg Latanoprost (Xalatan 0.005% Eye Drops -) 1 drop OU HS [facility] Last Admin: 04/11/19 23:15 Dose: 1 drop Levothyroxine Sodium (Synthroid -) 50 mcg PO AM [facility] Last Admin: 04/12/19 06:51 Dose: 50 mcg Polyethylene Glycol (Miralax (For Daily Use) -) 17 gm PO DAILY [facility] Last Admin: 04/12/19 09:21 Dose: Not Given Simethicone (Mylicon -) 80 mg PO Q8H PRN PRN Reason: GAS Last Admin: 04/07/19 22:01 Dose: 80 mg Tamsulosin HCl (Flomax -) 0.4 mg PO DAILY@0830 [facility] Last Admin: 04/12/19 09:20 Dose: 0.4 mg Vancomycin HCl (Vancomycin Oral Solution) 125 mg PO Q6HPO [facility] Last Admin: 04/12/19 11:41 Dose: 125 mg 83 year old [place] woman with 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 1. Acute kidney injury secondary to intravascular volume depletion 2. CKD 3. C. diff colitis 4. hx of CHF w/o acute exacerbation 5. Anemia Renal function now improved to baselien Urine studies show FeUrea of 30% indicating pre-renal injury; UA without proteinuira or blood. Renal US showed no obstruction D/c IVF and trend renal function on oral intake alone hold diuretics at this time no CHRISTINE/ARB, NSAIDs, or IV contrast dose all meds for CrCl < 30 no acute need for [employer] discussed case with daughter at the bedside Thank you Wm Tian DO
--- NOTE | 2019-04-12 13:17 | PN ---
Progress Note, Physician History of Present Illness: no issues no loose stools weak - Current Medication List Current Medications: Active Medications Acetaminophen (Tylenol -) 500 mg PO Q6H PRN PRN Reason: PAIN LEVEL 1-5 Last Admin: 04/11/19 06:11 Dose: 500 mg Albuterol/Ipratropium (Duoneb -) 1 amp NEB Q8H PRN PRN Reason: ASTHMA Allopurinol (Zyloprim -) 100 mg PO DAILY [facility] Last Admin: 04/12/19 09:20 Dose: 100 mg Aspirin (Ecotrin -) 81 mg PO DAILY [facility] Last Admin: 04/12/19 09:20 Dose: 81 mg Atorvastatin Calcium (Lipitor -) 20 mg PO HS [facility] Last Admin: 04/11/19 23:14 Dose: 20 mg Bisacodyl (Dulcolax -) 5 mg PO DAILY [facility] Last Admin: 04/12/19 11:00 Dose: Not Given Carvedilol (Coreg -) 12.5 mg PO BID [facility] Last Admin: 04/12/19 09:20 Dose: 12.5 mg Cinacalcet (Sensipar -) 30 mg PO DAILY [facility] Last Admin: 04/12/19 09:20 Dose: 30 mg Colchicine (Colcrys) 0.6 mg PO BID [facility] Last Admin: 04/12/19 09:20 Dose: 0.6 mg Famotidine (Pepcid -) 20 mg PO BID [facility] Last Admin: 04/12/19 09:20 Dose: 20 mg Gabapentin (Neurontin -) 300 mg PO [facility] Last Admin: 04/11/19 23:14 Dose: 300 mg Heparin Sodium (Porcine) (Heparin -) 5,000 unit SQ BID [facility] Last Admin: 04/12/19 09:20 Dose: 5,000 unit Hydralazine HCl (Apresoline -) 50 mg PO TID [facility] Last Admin: 04/12/19 06:30 Dose: 50 mg Insulin Aspart (Novolog Vial Sliding Scale -) 1 vial SQ [facility]; Protocol Last Admin: 04/12/19 11:42 Dose: Not Given Insulin Detemir (Levemir Vial) 16 units SQ [facility] Last Admin: 04/11/19 23:14 Dose: 16 units Isosorbide Mononitrate (Imdur -) 90 mg PO DAILY [facility] Last Admin: 04/12/19 09:20 Dose: 90 mg Latanoprost (Xalatan 0.005% Eye Drops -) 1 drop OU HS [facility] Last Admin: 04/11/19 23:15 Dose: 1 drop Levothyroxine Sodium (Synthroid -) 50 mcg PO AM [facility] Last Admin: 04/12/19 06:51 Dose: 50 mcg Polyethylene Glycol (Miralax (For Daily Use) -) 17 gm PO DAILY [facility] Last Admin: 04/12/19 09:21 Dose: Not Given Simethicone (Mylicon -) 80 mg PO Q8H PRN PRN Reason: GAS Last Admin: 04/07/19 22:01 Dose: 80 mg Tamsulosin HCl (Flomax -) 0.4 mg PO DAILY@0830 [facility] Last Admin: 04/12/19 09:20 Dose: 0.4 mg Vancomycin HCl (Vancomycin Oral Solution) 125 mg PO Q6HPO [facility] Last Admin: 04/12/19 11:41 Dose: 125 mg - Objective Vital Signs: Vital Signs Temperature 97.5 F L 04/12/19 09:28 Pulse Rate 78 04/12/19 09:28 Respiratory Rate 18 04/12/19 09:28 Blood Pressure 131/58 L 04/12/19 09:28 O2 Sat by Pulse Oximetry (%) 98 04/12/19 08:31 Constitutional: Yes: No Distress, Calm Cardiovascular: Yes: S1, S2 Respiratory: Yes: Regular, CTA Bilaterally Gastrointestinal: Yes: Normal Bowel Sounds, Soft Musculoskeletal: Yes: WNL Extremities: Yes: WNL Neurological: Yes: Alert, Oriented Psychiatric: Yes: Alert, Oriented Labs: CBC, BMP 04/11/19 06:20 04/12/19 06:10 INR, PTT INR 1.11 (0.83-1.09) H 04/05/19 18:21 Assessment/Plan dehydration uti cdiff weakness mass of the left foot plan continue current mgmt rest as per the team await for final results of imaging plan from podiatry
--- NOTE | 2019-04-12 14:28 | PN ---
Progress Note, Physician Chief Complaint: more awake and alert, daughter at bedside; eating poorly awaiting foot MRI - Current Medication List Current Medications: Active Medications Acetaminophen (Tylenol -) 500 mg PO Q6H PRN PRN Reason: PAIN LEVEL 1-5 Last Admin: 04/11/19 06:11 Dose: 500 mg Albuterol/Ipratropium (Duoneb -) 1 amp NEB Q8H PRN PRN Reason: ASTHMA Allopurinol (Zyloprim -) 100 mg PO DAILY [facility] Last Admin: 04/12/19 09:20 Dose: 100 mg Aspirin (Ecotrin -) 81 mg PO DAILY [facility] Last Admin: 04/12/19 09:20 Dose: 81 mg Atorvastatin Calcium (Lipitor -) 20 mg PO HS [facility] Last Admin: 04/11/19 23:14 Dose: 20 mg Bisacodyl (Dulcolax -) 5 mg PO DAILY [facility] Last Admin: 04/12/19 11:00 Dose: Not Given Carvedilol (Coreg -) 12.5 mg PO BID [facility] Last Admin: 04/12/19 09:20 Dose: 12.5 mg Cinacalcet (Sensipar -) 30 mg PO DAILY [facility] Last Admin: 04/12/19 09:20 Dose: 30 mg Colchicine (Colcrys) 0.6 mg PO BID [facility] Last Admin: 04/12/19 09:20 Dose: 0.6 mg Famotidine (Pepcid -) 20 mg PO BID [facility] Last Admin: 04/12/19 09:20 Dose: 20 mg Gabapentin (Neurontin -) 300 mg PO HS [facility] Last Admin: 04/11/19 23:14 Dose: 300 mg Heparin Sodium (Porcine) (Heparin -) 5,000 unit SQ BID [facility] Last Admin: 04/12/19 09:20 Dose: 5,000 unit Hydralazine HCl (Apresoline -) 50 mg PO TID [facility] Last Admin: 04/12/19 06:30 Dose: 50 mg Insulin Aspart (Novolog Vial Sliding Scale -) 1 vial SQ [facility]; Protocol Last Admin: 04/12/19 11:42 Dose: Not Given Insulin Detemir (Levemir Vial) 16 units SQ [facility] Last Admin: 04/11/19 23:14 Dose: 16 units Isosorbide Mononitrate (Imdur -) 90 mg PO DAILY [facility] Last Admin: 04/12/19 09:20 Dose: 90 mg Latanoprost (Xalatan 0.005% Eye Drops -) 1 drop OU HS [facility] Last Admin: 04/11/19 23:15 Dose: 1 drop Levothyroxine Sodium (Synthroid -) 50 mcg PO AM [facility] Last Admin: 04/12/19 06:51 Dose: 50 mcg Polyethylene Glycol (Miralax (For Daily Use) -) 17 gm PO DAILY [facility] Last Admin: 04/12/19 09:21 Dose: Not Given Simethicone (Mylicon -) 80 mg PO Q8H PRN PRN Reason: GAS Last Admin: 04/07/19 22:01 Dose: 80 mg Tamsulosin HCl (Flomax -) 0.4 mg PO DAILY@0830 [facility] Last Admin: 04/12/19 09:20 Dose: 0.4 mg Vancomycin HCl (Vancomycin Oral Solution) 125 mg PO Q6HPO [facility] Last Admin: 04/12/19 11:41 Dose: 125 mg - Objective Vital Signs: Vital Signs Temperature 97.7 F 04/12/19 14:00 Pulse Rate 80 04/12/19 14:00 Respiratory Rate 16 04/12/19 14:00 Blood Pressure 138/56 L 04/12/19 14:00 O2 Sat by Pulse Oximetry (%) 98 04/12/19 08:31 Constitutional: Yes: No Distress Eyes: Yes: Conjunctiva Clear HENT: Yes: Atraumatic Neck: Yes: Supple Cardiovascular: Yes: Regular Rate and Rhythm Respiratory: Yes: Diminished Gastrointestinal: Yes: Soft. No: Tenderness Genitourinary: No: Hematuria Musculoskeletal: No: Joint Stiffness, Joint Swelling Extremities: No: Cold, Cool Edema: No Integumentary: No: Rash, Venous Stasis Changes Neurological: Yes: Alert ...Motor Strength: WNL Psychiatric: Yes: Alert. No: Agitated Labs: CBC, BMP 04/11/19 06:20 04/12/19 06:10 INR, PTT INR 1.11 (0.83-1.09) H 04/05/19 18:21 - ....Imaging Other: Report Reviewed Assessment/Plan 83yo F with PMH of CHF, HTN, HLD, CAD, CKD, DM, hypothyroid, chronic abdominal pain, and GERD, weakness and falls, admitted with weakness, poor po intake, chest pain, nausea, vomiting, and dysuria. s./p recent UTIs urinary retention and CDiff colitis. Now with ARF / CRF ATB per ID; IVF; renal f/u; renal US negative f/u labs and cultures podiatry f/u for L foot lump / pain falls decubs DVT Pfx d/w pt and staff
[2019-04-12] MEDS ORDERED: diphenhydrAMINE HCL 12.5 MG/5 ML UNIT-DOSE CUPS PO PRN (20:40)
[2019-04-12] MEDS ORDERED: diphenhydrAMINE HCL 25 MG CAPSULE (FP) PO PRN (21:35)
[2019-04-12] MEDS: ATORVASTATIN CA 20 MG TABLET (FP) PO SCH (22:40)
[2019-04-12] MEDS: INSULIN (LEVEMIR) 100 UNITS/ML UNITS SQ SCH (22:40)
[2019-04-12] MEDS: GABAPENTIN 300 MG CAPSULE (FP) PO SCH (22:40)
[2019-04-12] MEDS: LATANOPROST 0.005% OPHTH SOLN 2.5ML BOTTLE OU SCH (22:48)
[2019-04-13] MEDS: VANCOMYCIN 250 MG/5 ML ORAL SOLUTION PO SCH ×3 (06:27→17:10)
[2019-04-13] MEDS: INSULIN SLIDING SCALE (NOVOLOG) 1 VIAL SQ SCH ×4 (06:28→21:46)
[2019-04-13] MEDS: hydrALAZINE HCL 50 MG TABLET (FP) PO SCH ×3 (06:28→21:45)
[2019-04-13] MEDS: LEVOTHYROXINE NA 50 MCG TABLET (FP) PO SCH (06:28)
[2019-04-13 06:37] LABS: BASO % 0.4 % (0-2.0); EOS % 0.9 % (0-4.5); HEMATOCRIT 26.4 % (32.4-45.2); HEMOGLOBIN 8.6 GM/dL (10.7-15.3); LYMPH % 13.8 % (8-40); MCH 29.1 pg (25.7-33.7); MCHC 32.5 g/dl (32.0-36.0); MEAN CELL VOLUME 89.6 fl (80-96); MEAN PLT VOLUME 9.7 fl (7.5-11.1); MONO % 16.5 % (3.8-10.2); NEUT % 68.4 % (42.8-82.8); PLATELET COUNT 106 K/MM3 (134-434); RBC 2.95 M/mm3 (3.60-5.2); RDW 18.9 % (11.6-15.6); WHITE BLOOD COUNT 3.7 K/mm3 (4.0-10.0)
[2019-04-13 07:08] LABS: ALBUMIN 2.9 g/dl (3.4-5.0); BILIRUBIN,TOTAL 0.9 mg/dL (0.2-1); BLOOD UREA NITROGEN 46.3 mg/dL (7-18); CALCIUM 7.8 mg/dL (8.5-10.1); CREATININE 1.4 mg/dL (0.55-1.3); POTASSIUM 4.2 mmol/L (3.5-5.1); TOT PROT 5.9 g/dl (6.4-8.2)
--- NOTE | 2019-04-13 10:14 | PN ---
Progress Note, Physician Chief Complaint: OOB to chair, son and at bedside did not sleep well with 12.5 mg benadryl will give 25 mg tonight feeling a little better ate more labs noted; could not do MRI foot b/o anxiety - will give 1x xanax - Current Medication List Current Medications: Active Medications Acetaminophen (Tylenol -) 500 mg PO Q6H PRN PRN Reason: PAIN LEVEL 1-5 Last Admin: 04/11/19 06:11 Dose: 500 mg Albuterol/Ipratropium (Duoneb -) 1 amp NEB Q8H PRN PRN Reason: ASTHMA Allopurinol (Zyloprim -) 100 mg PO DAILY [facility] Last Admin: 04/12/19 09:20 Dose: 100 mg Aspirin (Ecotrin -) 81 mg PO DAILY [facility] Last Admin: 04/12/19 09:20 Dose: 81 mg Atorvastatin Calcium (Lipitor -) 20 mg PO HS [facility] Last Admin: 04/12/19 22:40 Dose: 20 mg Carvedilol (Coreg -) 12.5 mg PO BID [facility] Last Admin: 04/12/19 22:40 Dose: 12.5 mg Cinacalcet (Sensipar -) 30 mg PO DAILY [facility] Last Admin: 04/12/19 09:20 Dose: 30 mg Colchicine (Colcrys) 0.6 mg PO BID [facility] Last Admin: 04/12/19 22:40 Dose: 0.6 mg Diphenhydramine HCl (Benadryl Oral Solution -) 12.5 mg PO HS PRN PRN Reason: INSOMNIA Last Admin: 04/12/19 22:41 Dose: 12.5 mg Famotidine (Pepcid -) 20 mg PO BID [facility] Last Admin: 04/12/19 22:40 Dose: 20 mg Gabapentin (Neurontin -) 300 mg PO HS [facility] Last Admin: 04/12/19 22:40 Dose: 300 mg Heparin Sodium (Porcine) (Heparin -) 5,000 unit SQ BID [facility] Last Admin: 04/12/19 22:40 Dose: 5,000 unit Hydralazine HCl (Apresoline -) 50 mg PO TID [facility] Last Admin: 04/13/19 06:28 Dose: 50 mg Insulin Aspart (Novolog Vial Sliding Scale -) 1 vial SQ [facility]; Protocol Last Admin: 04/13/19 06:28 Dose: Not Given Insulin Detemir (Levemir Vial) 16 units SQ HS [facility] Last Admin: 04/12/19 22:40 Dose: 16 units Isosorbide Mononitrate (Imdur -) 90 mg PO DAILY [facility] Last Admin: 04/12/19 09:20 Dose: 90 mg Latanoprost (Xalatan 0.005% Eye Drops -) 1 drop OU HS [facility] Last Admin: 04/12/19 22:48 Dose: 1 drop Levothyroxine Sodium (Synthroid -) 50 mcg PO AM [facility] Last Admin: 04/13/19 06:28 Dose: 50 mcg Simethicone (Mylicon -) 80 mg PO Q8H PRN PRN Reason: GAS Last Admin: 04/07/19 22:01 Dose: 80 mg Tamsulosin HCl (Flomax -) 0.4 mg PO DAILY@0830 [facility] Last Admin: 04/12/19 09:20 Dose: 0.4 mg Vancomycin HCl (Vancomycin Oral Solution) 125 mg PO Q6HPO [facility] Last Admin: 04/13/19 06:27 Dose: 125 mg - Objective Vital Signs: Vital Signs Temperature 97.7 F 04/13/19 09:00 Pulse Rate 86 04/13/19 09:00 Respiratory Rate 20 04/13/19 09:00 Blood Pressure 141/64 04/13/19 09:00 O2 Sat by Pulse Oximetry (%) 100 04/13/19 09:00 Constitutional: Yes: No Distress Eyes: Yes: Conjunctiva Clear HENT: Yes: Atraumatic Neck: Yes: Supple Cardiovascular: Yes: Regular Rate and Rhythm Respiratory: Yes: CTA Bilaterally Gastrointestinal: Yes: Soft. No: Tenderness Genitourinary: Yes: [place] Present. No: Hematuria Musculoskeletal: No: Joint Stiffness, Joint Swelling Extremities: No: Cold, Cool Edema: No Integumentary: No: Rash, Venous Stasis Changes Neurological: Yes: WNL, Alert ...Motor Strength: WNL Psychiatric: Yes: WNL, Alert. No: Agitated Labs: CBC, BMP 04/13/19 05:50 04/13/19 05:50 INR, PTT INR 1.11 (0.83-1.09) H 04/05/19 18:21 - ....Imaging Other: Report Reviewed Assessment/Plan 83yo F with PMH of CHF, HTN, HLD, CAD, CKD, DM, hypothyroid, chronic abdominal pain, and GERD, weakness and falls, admitted with weakness, poor po intake, chest pain, nausea, vomiting, and dysuria. s./p recent UTIs urinary retention and CDiff colitis. Now with ARF / CRF; hyperNa; high LFTs (had recent liver US negative); anxiety and insomnia, poor po intake; ATB per ID; HS/ IVF; renal f/u; renal US negative f/u labs and cultures podiatry f/u for L foot lump / pain falls decubs DVT Pfx d/w pt and staff
[2019-04-13] MEDS ORDERED: SODIUM CHLORIDE 0.45% 1,000 ML IV SCH (10:30)
[2019-04-13] MEDS: ISOSORBIDE MONONITRATE 30 MG TAB.SR.24H (FP) PO SCH (11:14)
[2019-04-13] MEDS: CINACALCET HCL 30 MG TAB (FP) PO SCH (11:14)
[2019-04-13] MEDS: ALLOPURINOL 100 MG TABLET (FP) PO SCH (11:14)
[2019-04-13] MEDS: ASPIRIN COATED 81 MG TABLET.EC PO SCH (11:14)
[2019-04-13] MEDS: FAMOTIDINE 20 MG TABLET PO SCH ×2 (11:14→21:45)
[2019-04-13] MEDS: COLCHICINE 0.6 MG CAP PO SCH ×2 (11:14→21:45)
[2019-04-13] MEDS: CARVEDILOL 12.5 MG TABLET (FP) PO SCH ×2 (11:14→21:45)
[2019-04-13] MEDS: TAMSULOSIN HCL 0.4 MG CAP PO SCH (11:14)
[2019-04-13] MEDS: HEPARIN NA (PORCINE) 5,000 UNITS/ML 1ML VIAL SQ SCH ×2 (11:18→21:44)
[2019-04-13] MEDS ORDERED: ALPRAZolam 0.25 MG TABLET PO ONE (11:59)
[2019-04-13] MEDS ORDERED: diphenhydrAMINE HCL 12.5 MG/5 ML UNIT-DOSE CUPS PO PRN (12:00)
[2019-04-13] MEDS: SIMETHICONE 80 MG TAB.CHEW (FP) PO PRN (15:01)
[2019-04-13] MEDS ORDERED: DEXTROSE 5%-WATER - 1,000 ML IV SCH (15:30)
--- NOTE | 2019-04-13 15:30 | PN ---
Progress Note, Physician History of Present Illness: Pt seen and examined at bedside. She has poor PO intake. - Current Medication List Current Medications: Active Medications Acetaminophen (Tylenol -) 500 mg PO Q6H PRN PRN Reason: PAIN LEVEL 1-5 Last Admin: 04/11/19 06:11 Dose: 500 mg Albuterol/Ipratropium (Duoneb -) 1 amp NEB Q8H PRN PRN Reason: ASTHMA Allopurinol (Zyloprim -) 100 mg PO DAILY [facility] Last Admin: 04/13/19 11:14 Dose: 100 mg Alprazolam (Xanax -) 0.25 mg PO ONCE ONE Stop: 04/13/19 12:00 Aspirin (Ecotrin -) 81 mg PO DAILY [facility] Last Admin: 04/13/19 11:14 Dose: 81 mg Atorvastatin Calcium (Lipitor -) 20 mg PO HS [facility] Last Admin: 04/12/19 22:40 Dose: 20 mg Carvedilol (Coreg -) 12.5 mg PO BID [facility] Last Admin: 04/13/19 11:14 Dose: 12.5 mg Cinacalcet (Sensipar -) 30 mg PO DAILY [facility] Last Admin: 04/13/19 11:14 Dose: 30 mg Colchicine (Colcrys) 0.6 mg PO BID [facility] Last Admin: 04/13/19 11:14 Dose: 0.6 mg Diphenhydramine HCl (Benadryl Oral Solution -) 25 mg PO HS PRN PRN Reason: INSOMNIA Famotidine (Pepcid -) 20 mg PO BID [facility] Last Admin: 04/13/19 11:14 Dose: 20 mg Gabapentin (Neurontin -) 300 mg PO HS [facility] Last Admin: 04/12/19 22:40 Dose: 300 mg Heparin Sodium (Porcine) (Heparin -) 5,000 unit SQ BID [facility] Last Admin: 04/13/19 11:18 Dose: 5,000 unit Hydralazine HCl (Apresoline -) 50 mg PO TID [facility] Last Admin: 04/13/19 13:24 Dose: 50 mg Sodium Chloride (1/2 Normal Saline) 1,000 mls @ 42 mls/hr IV ASDIR [facility] Last Admin: 04/13/19 11:20 Dose: 42 mls/hr Insulin Aspart (Novolog Vial Sliding Scale -) 1 vial SQ [facility]; Protocol Last Admin: 04/13/19 11:33 Dose: Not Given Insulin Detemir (Levemir Vial) 16 units SQ HS [facility] Last Admin: 04/12/19 22:40 Dose: 16 units Isosorbide Mononitrate (Imdur -) 90 mg PO DAILY [facility] Last Admin: 04/13/19 11:14 Dose: 90 mg Latanoprost (Xalatan 0.005% Eye Drops -) 1 drop OU HS [facility] Last Admin: 04/12/19 22:48 Dose: 1 drop Levothyroxine Sodium (Synthroid -) 50 mcg PO AM [facility] Last Admin: 04/13/19 06:28 Dose: 50 mcg Simethicone (Mylicon -) 80 mg PO Q8H PRN PRN Reason: GAS Last Admin: 04/13/19 15:01 Dose: 80 mg Tamsulosin HCl (Flomax -) 0.4 mg PO DAILY@0830 [facility] Last Admin: 04/13/19 11:14 Dose: 0.4 mg Vancomycin HCl (Vancomycin Oral Solution) 125 mg PO Q6HPO [facility] Last Admin: 04/13/19 12:49 Dose: 125 mg - Objective Vital Signs: Vital Signs Temperature 97.7 F 04/13/19 09:00 Pulse Rate 86 04/13/19 09:00 Respiratory Rate 20 04/13/19 09:00 Blood Pressure 141/64 04/13/19 09:00 O2 Sat by Pulse Oximetry (%) 100 04/13/19 09:00 Constitutional: Yes: Calm Eyes: Yes: Conjunctiva Clear HENT: Yes: Atraumatic Cardiovascular: Yes: S1, S2 Respiratory: Yes: CTA Bilaterally Gastrointestinal: Yes: Soft Genitourinary: Yes: [place] Present Musculoskeletal: Yes: WNL Edema: No Neurological: Yes: Confusion Labs: CBC, BMP 04/13/19 05:50 04/13/19 05:50 INR, PTT INR 1.11 (0.83-1.09) H 04/05/19 18:21 Assessment/Plan Current Medications Generic Name Dose Route Start Last Admin Trade Name Freq PRN Reason Stop Dose Admin Acetaminophen 500 mg 04/06/19 11:06 04/11/19 06:11 Tylenol - PO 500 mg Q6H PRN Administration PAIN LEVEL 1-5 Albuterol/Ipratropium 1 amp 04/06/19 11:06 Duoneb - NEB Q8H PRN ASTHMA Allopurinol 100 mg 04/07/19 10:00 04/13/19 11:14 Zyloprim - PO 100 mg DAILY [facility] Administration Alprazolam 0.25 mg 04/13/19 11:59 Xanax - PO 04/13/19 12:00 ONCE ONE Aspirin 81 mg 04/07/19 10:00 04/13/19 11:14 Ecotrin - PO 81 mg DAILY [facility] Administration Atorvastatin Calcium 20 mg 04/06/19 22:00 04/12/19 22:40 Lipitor - PO 20 mg HS [facility] Administration Carvedilol 12.5 mg 04/06/19 22:00 04/13/19 11:14 Coreg - PO 12.5 mg BID [facility] Administration Cinacalcet 30 mg 04/07/19 10:00 04/13/19 11:14 Sensipar - PO 30 mg DAILY [facility] Administration Colchicine 0.6 mg 04/06/19 22:00 04/13/19 11:14 Colcrys PO 0.6 mg BID [facility] Administration Diphenhydramine HCl 25 mg 04/13/19 12:00 Benadryl Oral Solution - PO HS PRN INSOMNIA Famotidine 20 mg 04/06/19 22:00 04/13/19 11:14 Pepcid - PO 20 mg BID [facility] Administration Gabapentin 300 mg 04/06/19 22:00 04/12/19 22:40 Neurontin - PO 300 mg HS [facility] Administration Heparin Sodium (Porcine) 5,000 unit 04/06/19 22:00 04/13/19 11:18 Heparin - SQ 5,000 unit BID [facility] Administration Hydralazine HCl 50 mg 04/06/19 14:00 04/13/19 13:24 Apresoline - PO 50 mg TID [facility] Administration Sodium Chloride 1,000 mls @ 42 mls/hr 04/13/19 10:30 04/13/19 11:20 1/2 Normal Saline IV 42 mls/hr ASDIR [facility] Administration Insulin Aspart 1 vial 04/06/19 16:30 04/13/19 11:33 Novolog Vial Sliding Scale - SQ Not Given ACHS [facility] Protocol Insulin Detemir 16 units 04/06/19 22:00 04/12/19 22:40 Levemir Vial SQ 16 units HS [facility] Administration Isosorbide Mononitrate 90 mg 04/07/19 10:00 04/13/19 11:14 Imdur - PO 90 mg DAILY [facility] Administration Latanoprost 1 drop 04/10/19 22:00 04/12/19 22:48 Xalatan 0.005% Eye Drops - OU 1 drop HS [facility] Administration Levothyroxine Sodium 50 mcg 04/07/19 07:00 04/13/19 06:28 Synthroid - PO 50 mcg AM [facility] Administration Simethicone 80 mg 04/06/19 11:06 04/13/19 15:01 Mylicon - PO 80 mg Q8H PRN Administration GAS Tamsulosin HCl 0.4 mg 04/07/19 08:30 04/13/19 11:14 Flomax - PO 0.4 mg DAILY@0830 [facility] Administration Vancomycin HCl 125 mg 04/06/19 00:00 04/13/19 12:49 Vancomycin Oral Solution PO 125 mg Q6HPO [facility] Administration Laboratory Tests 02/06/19 02/09/19 03/01/19 06:51 05:25 12:21 Potassium Creatinine 1.9 H 2.1 H 2.0 H Magnesium 03/07/19 03/08/19 03/09/19 13:12 05:58 05:00 Potassium 6.0 H Creatinine 2.2 H 2.3 H 2.5 H Magnesium 2.7 H 04/10/19 04/13/19 06:00 05:50 Potassium Creatinine 2.7 H 1.4 H Magnesium 1. Acute kidney injury secondary to intravascular volume depletion 2. CKD 3. C. diff colitis 4. hx of CHF w/o acute exacerbation 5. Anemia 6. hypernatremia Plan - sodium is rising - change fluids to d5w - encourage PO intake - renal function is improving - ANDRÉS likely in part from pre-renal disease
--- NOTE | 2019-04-13 16:14 | PN ---
Progress Note, Physician History of Present Illness: Pt remains afebrile, diarrhea resolved but daughter at bedside states pt been confused in the past half hour, stating she thinks she's at home. - Current Medication List Current Medications: Active Medications Acetaminophen (Tylenol -) 500 mg PO Q6H PRN PRN Reason: PAIN LEVEL 1-5 Last Admin: 04/11/19 06:11 Dose: 500 mg Albuterol/Ipratropium (Duoneb -) 1 amp NEB Q8H PRN PRN Reason: ASTHMA Allopurinol (Zyloprim -) 100 mg PO DAILY [facility] Last Admin: 04/13/19 11:14 Dose: 100 mg Alprazolam (Xanax -) 0.25 mg PO ONCE ONE Stop: 04/13/19 12:00 Aspirin (Ecotrin -) 81 mg PO DAILY [facility] Last Admin: 04/13/19 11:14 Dose: 81 mg Atorvastatin Calcium (Lipitor -) 20 mg PO HS [facility] Last Admin: 04/12/19 22:40 Dose: 20 mg Carvedilol (Coreg -) 12.5 mg PO BID [facility] Last Admin: 04/13/19 11:14 Dose: 12.5 mg Cinacalcet (Sensipar -) 30 mg PO DAILY [facility] Last Admin: 04/13/19 11:14 Dose: 30 mg Colchicine (Colcrys) 0.6 mg PO BID [facility] Last Admin: 04/13/19 11:14 Dose: 0.6 mg Diphenhydramine HCl (Benadryl Oral Solution -) 25 mg PO HS PRN PRN Reason: INSOMNIA Famotidine (Pepcid -) 20 mg PO BID [facility] Last Admin: 04/13/19 11:14 Dose: 20 mg Gabapentin (Neurontin -) 300 mg PO HS [facility] Last Admin: 04/12/19 22:40 Dose: 300 mg Heparin Sodium (Porcine) (Heparin -) 5,000 unit SQ BID [facility] Last Admin: 04/13/19 11:18 Dose: 5,000 unit Hydralazine HCl (Apresoline -) 50 mg PO TID [facility] Last Admin: 04/13/19 13:24 Dose: 50 mg Dextrose (D5w -) 1,000 mls @ 50 mls/hr IV ASDIR [facility] Stop: 04/14/19 15:29 Last Admin: 04/13/19 15:39 Dose: 50 mls/hr Insulin Aspart (Novolog Vial Sliding Scale -) 1 vial SQ [facility]; Protocol Last Admin: 04/13/19 11:33 Dose: Not Given Insulin Detemir (Levemir Vial) 16 units SQ [facility] Last Admin: 04/12/19 22:40 Dose: 16 units Isosorbide Mononitrate (Imdur -) 90 mg PO DAILY [facility] Last Admin: 04/13/19 11:14 Dose: 90 mg Latanoprost (Xalatan 0.005% Eye Drops -) 1 drop OU HS [facility] Last Admin: 04/12/19 22:48 Dose: 1 drop Levothyroxine Sodium (Synthroid -) 50 mcg PO AM [facility] Last Admin: 04/13/19 06:28 Dose: 50 mcg Simethicone (Mylicon -) 80 mg PO Q8H PRN PRN Reason: GAS Last Admin: 04/13/19 15:01 Dose: 80 mg Tamsulosin HCl (Flomax -) 0.4 mg PO DAILY@0830 [facility] Last Admin: 04/13/19 11:14 Dose: 0.4 mg Vancomycin HCl (Vancomycin Oral Solution) 125 mg PO Q6HPO [facility] Last Admin: 04/13/19 12:49 Dose: 125 mg - Objective Vital Signs: Vital Signs Temperature 97.7 F 04/13/19 09:00 Pulse Rate 86 04/13/19 09:00 Respiratory Rate 20 04/13/19 09:00 Blood Pressure 141/64 04/13/19 09:00 O2 Sat by Pulse Oximetry (%) 100 04/13/19 09:00 Constitutional: Yes: No Distress Cardiovascular: Yes: Regular Rate and Rhythm Respiratory: Yes: Accessory Muscle Use (mild) Gastrointestinal: Yes: Normal Bowel Sounds, Soft Genitourinary: Yes: WNL Extremities: Yes: Other (Lt foot mass) Integumentary: Yes: WNL Neurological: Yes: Alert, Confusion Labs: CBC, BMP 04/13/19 05:50 04/13/19 05:50 INR, PTT INR 1.11 (0.83-1.09) H 04/05/19 18:21 Microbiology 04/05/19 18:21 Blood - Peripheral Venous Blood Culture - Final NO GROWTH AFTER 5 DAYS INCUBATION 04/05/19 18:10 Blood - Peripheral Venous Blood Culture - Final NO GROWTH AFTER 5 DAYS INCUBATION 04/05/19 18:15 Urine - Urine [place] Urine Culture - Final NO GROWTH OBTAINED - ....Imaging X-ray: Report Reviewed Problem List - Problems (1) ANDRÉS (acute kidney injury) Code(s): N17.9 - ACUTE KIDNEY FAILURE, UNSPECIFIED (2) C. difficile diarrhea Code(s): A04.72 - ENTEROCOLITIS D/T CLOSTRIDIUM DIFFICILE, NOT SPCF RECUR (3) Diastolic CHF Code(s): I50.30 - UNSPECIFIED DIASTOLIC (CONGESTIVE) HEART FAILURE (4) UTI (urinary tract infection) Code(s): N39.0 - URINARY TRACT INFECTION, SITE NOT SPECIFIED Qualifiers: Urinary tract infection type: site unspecified Hematuria presence: without hematuria Qualified Code(s): N39.0 - Urinary tract infection, site not specified (5) CAD (coronary artery disease) Code(s): I25.10 - ATHSCL HEART DISEASE OF [place] CORONARY ARTERY W/O ANG PCTRS Qualifiers: Coronary Disease-Associated Artery/Lesion type: [place] artery (6) CRF (chronic renal failure) Code(s): N18.9 - CHRONIC KIDNEY DISEASE, UNSPECIFIED Qualifiers: Chronic kidney disease stage: stage 4 (severe) Qualified Code(s): N18.4 - Chronic kidney disease, stage 4 (severe) (7) Diabetes mellitus Code(s): E11.9 - TYPE 2 DIABETES MELLITUS WITHOUT COMPLICATIONS Qualifiers: Diabetes mellitus type: other specified (including JAVAD) Diabetes mellitus intermission coordinator insulin use: without fci use Diabetes mellitus complication status: without complication Qualified Code(s): E13.9 - Other specified diabetes mellitus without complications Assessment/Plan C. difficile colitis Dehydration UTI -- Pt confused today as per daughter, breathing heavier -- consider CT head, CXR -- blood cultures -- diarrhea resolved, continue Vancomycin po to complete total of 2 wks -- monitor vitals closely -- MRI of foot pending, Podiatry following
[2019-04-13 17:16] LABS: ARTERIAL BLD GAS O2 SATURATION 98.3 % (95-98); ARTERIAL BLOOD GAS BASE EXCESS 5.5 meq/l (-2-2); ARTERIAL BLOOD GAS PO2 138 mmHg (80-100); ARTERIAL BLOOD GAS pH 7.28 (7.35-7.45)
[2019-04-13 17:18] LABS: ALLENS TEST POSITIVE
[2019-04-13 17:23] LABS: ARTERIAL BLOOD GAS PCO2 74.8 mmHg (35-45)
[2019-04-13] MEDS: GABAPENTIN 300 MG CAPSULE (FP) PO SCH (21:44)
[2019-04-13] MEDS: ATORVASTATIN CA 20 MG TABLET (FP) PO SCH (21:44)
[2019-04-13] MEDS: INSULIN (LEVEMIR) 100 UNITS/ML UNITS SQ SCH (21:45)
[2019-04-13] MEDS: LATANOPROST 0.005% OPHTH SOLN 2.5ML BOTTLE OU SCH (22:00)
[2019-04-14] MEDS ORDERED: PT OWN MED DRAWER 7, Y5N ONE (00:58)
[2019-04-14] MEDS: VANCOMYCIN 250 MG/5 ML ORAL SOLUTION PO SCH ×5 (01:13→23:31)
[2019-04-14] MEDS: INSULIN SLIDING SCALE (NOVOLOG) 1 VIAL SQ SCH ×4 (06:07→21:46)
[2019-04-14] MEDS: hydrALAZINE HCL 50 MG TABLET (FP) PO SCH ×3 (06:15→21:46)
[2019-04-14] MEDS: LEVOTHYROXINE NA 50 MCG TABLET (FP) PO SCH (06:15)
[2019-04-14 06:34] LABS: BASO % 0.4 % (0-2.0); EOS % 0.9 % (0-4.5); HEMATOCRIT 26.1 % (32.4-45.2); HEMOGLOBIN 8.5 GM/dL (10.7-15.3); LYMPH % 17.2 % (8-40); MCH 29.2 pg (25.7-33.7); MCHC 32.4 g/dl (32.0-36.0); MEAN CELL VOLUME 90.3 fl (80-96); MEAN PLT VOLUME 10.4 fl (7.5-11.1); MONO % 11.6 % (3.8-10.2); NEUT % 69.9 % (42.8-82.8); PLATELET COUNT 102 K/MM3 (134-434); RDW 19.2 % (11.6-15.6); WHITE BLOOD COUNT 3.3 K/mm3 (4.0-10.0)
[2019-04-14 07:03] LABS: ALBUMIN 2.9 g/dl (3.4-5.0); BILIRUBIN,TOTAL 0.8 mg/dL (0.2-1); BLOOD UREA NITROGEN 58.4 mg/dL (7-18); CALCIUM 7.7 mg/dL (8.5-10.1); CREATININE 1.7 mg/dL (0.55-1.3); POTASSIUM 4.4 mmol/L (3.5-5.1); TOT PROT 5.8 g/dl (6.4-8.2)
[2019-04-14] MEDS ORDERED: DEXTROSE 5%-WATER - 1,000 ML IV SCH (07:29)
--- NOTE | 2019-04-14 09:03 | PN ---
Progress Note, Physician History of Present Illness: daughter at bedside in bed awake alert but very weak, does not want to get OOB; poor appetite; intermittently confused; head CT negative mild increase in LFTs noted; will check ammonia and called GI consult creat mildly elevated (but around baseline) s/p IVF CXR c.w CHF and congestive changes; CO2 retention noted - pulm consult called for bipap prn; cardiology called h.o ASHD CHF pancytopenia, heme consults called also - Current Medication List Current Medications: Active Medications Albuterol/Ipratropium (Duoneb -) 1 amp NEB Q8H PRN PRN Reason: ASTHMA Allopurinol (Zyloprim -) 100 mg PO DAILY [facility] Last Admin: 04/13/19 11:14 Dose: 100 mg Alprazolam (Xanax -) 0.25 mg PO ONCE ONE Stop: 04/13/19 12:00 Aspirin (Ecotrin -) 81 mg PO DAILY [facility] Last Admin: 04/13/19 11:14 Dose: 81 mg Carvedilol (Coreg -) 12.5 mg PO BID [facility] Last Admin: 04/13/19 21:45 Dose: 12.5 mg Cinacalcet (Sensipar -) 30 mg PO DAILY [facility] Last Admin: 04/13/19 11:14 Dose: 30 mg Colchicine (Colcrys) 0.6 mg PO BID [facility] Last Admin: 04/13/19 21:45 Dose: 0.6 mg Famotidine (Pepcid -) 20 mg PO BID [facility] Last Admin: 04/13/19 21:45 Dose: 20 mg Gabapentin (Neurontin -) 300 mg PO HS [facility] Last Admin: 04/13/19 21:44 Dose: 300 mg Heparin Sodium (Porcine) (Heparin -) 5,000 unit SQ BID [facility] Last Admin: 04/13/19 21:44 Dose: 5,000 unit Hydralazine HCl (Apresoline -) 50 mg PO TID [facility] Last Admin: 04/14/19 06:15 Dose: 50 mg Dextrose (D5w -) 1,000 mls @ 60 mls/hr IV ASDIR [facility] Stop: 04/15/19 06:00 Insulin Aspart (Novolog Vial Sliding Scale -) 1 vial SQ ACHS [facility]; Protocol Last Admin: 04/14/19 06:07 Dose: Not Given Insulin Detemir (Levemir Vial) 16 units SQ HS [facility] Last Admin: 04/13/19 21:45 Dose: 16 units Isosorbide Mononitrate (Imdur -) 90 mg PO DAILY [facility] Last Admin: 04/13/19 11:14 Dose: 90 mg Latanoprost (Xalatan 0.005% Eye Drops -) 1 drop OU HS [facility] Last Admin: 04/13/19 22:00 Dose: 1 drop Levothyroxine Sodium (Synthroid -) 50 mcg PO AM [facility] Last Admin: 04/14/19 06:15 Dose: 50 mcg Simethicone (Mylicon -) 80 mg PO Q8H PRN PRN Reason: GAS Last Admin: 04/13/19 15:01 Dose: 80 mg Tamsulosin HCl (Flomax -) 0.4 mg PO DAILY@0830 [facility] Last Admin: 04/13/19 11:14 Dose: 0.4 mg Vancomycin HCl (Vancomycin Oral Solution) 125 mg PO Q6HPO [facility] Last Admin: 04/14/19 06:15 Dose: 125 mg - Objective Vital Signs: Vital Signs Temperature 97.7 F 04/14/19 05:51 Pulse Rate 74 04/14/19 05:51 Respiratory Rate 18 04/14/19 05:51 Blood Pressure 101/52 L 04/14/19 05:51 O2 Sat by Pulse Oximetry (%) 100 04/13/19 21:00 Constitutional: Yes: No Distress Eyes: Yes: Conjunctiva Clear HENT: Yes: Atraumatic Neck: Yes: Supple Cardiovascular: Yes: Regular Rate and Rhythm Respiratory: Yes: Diminished Gastrointestinal: Yes: Soft. No: Tenderness Genitourinary: No: Hematuria Musculoskeletal: No: Joint Stiffness, Joint Swelling Extremities: No: Cold, Cool Edema: No Integumentary: No: Rash, Venous Stasis Changes Neurological: Yes: Alert ...Motor Strength: WNL Psychiatric: Yes: Alert. No: Agitated Labs: CBC, BMP 04/14/19 05:22 04/14/19 05:22 INR, PTT INR 1.11 (0.83-1.09) H 04/05/19 18:21 - ....Imaging Other: Report Reviewed Assessment/Plan 83yo F with PMH of CHF, HTN, HLD, CAD, CKD, DM, hypothyroid, chronic abdominal pain, and GERD, weakness and falls, admitted with weakness, poor po intake, chest pain, nausea, vomiting, and dysuria. s./p recent UTIs urinary retention and CDiff colitis. Now with ARF / CRF; high LFTs (had recent liver US negative) ; anxiety and insomnia, poor po intake; confusion, pancytopenia; CHF congestive changes and CO2 retention. Stop IVF - start lasix 20 mg po low dose, close labs and BP f/u cardiology, pulmonary, heme and GI evals close labs f/u O2 / bipap per pulm falls decubs DVT Pfx d/w pt and staff d/w daughter
[2019-04-14] MEDS: CINACALCET HCL 30 MG TAB (FP) PO SCH (09:40)
[2019-04-14] MEDS: CARVEDILOL 12.5 MG TABLET (FP) PO SCH ×2 (09:40→21:46)
[2019-04-14] MEDS: ASPIRIN COATED 81 MG TABLET.EC PO SCH (09:40)
[2019-04-14] MEDS: COLCHICINE 0.6 MG CAP PO SCH ×2 (09:41→21:46)
[2019-04-14] MEDS: ISOSORBIDE MONONITRATE 30 MG TAB.SR.24H (FP) PO SCH (09:41)
[2019-04-14] MEDS: ALLOPURINOL 100 MG TABLET (FP) PO SCH (09:41)
[2019-04-14] MEDS: TAMSULOSIN HCL 0.4 MG CAP PO SCH (09:41)
[2019-04-14] MEDS: FAMOTIDINE 20 MG TABLET PO SCH ×2 (09:41→21:46)
[2019-04-14] MEDS: HEPARIN NA (PORCINE) 5,000 UNITS/ML 1ML VIAL SQ SCH ×2 (09:42→21:46)
[2019-04-14 10:24] LABS: N-TERMINAL BNP 4586.5 pg/ml (5-450)
--- NOTE | 2019-04-14 10:57 | CON.CARD ---
Consult Consult Specialty:: Cardiology for dr. Kiser - History of Present Illness History of Present Illness: 83yo F with PMH of CHF, HTN, HLD, CAD, CKD, DM, hypothyroid, chronic abdominal pain, and GERD admitted from [facility] with weakness, poor po intake, chest pain, nausea, vomiting, and dysuria. She was admitted here last month after recurrent falls at home and transferred to SNF for PT rehab. Earlier in SNF pt had urinary retention and a johnston catheter was placed. Patient contracted a urinary tract infection and was placed on antibiotics. She then sustained cdiff colitis but became increasingly lethargic, decreased po intake, dehydrated and was sent to [facility] - pt and daughter Aicha History Source: Patient, Family Member, Medical Record, Transfer Record Limitations to Obtaining History: No Limitations - History Source History Provided By: Medical Record - Past Medical History Cardio/Vascular: Yes: CAD (non-obstructive), CHF, HTN, Hyperlipdemia, Other ( Angina pectoris) Gastrointestinal: Yes: Constipation, Diverticulosis, GERD, Other (colon polyps: sessil serrated adenomas x 2 2014) Renal/: Yes: Renal Inusuff Musculoskeletal: Yes: Other Endocrine: Yes: Diabetes Mellitus (Insulin dependent), Hypothyroidism - Past Surgical History Past Surgical History: Yes: Hysterectomy (BRAXTON, BSO in 1981), Oopherectomy - Alcohol/Substance Use Hx Alcohol Use: No History of Substance Use: reports: None - Smoking History Smoking history: Never smoked Have you smoked in the past 12 months: No Aproximately how many cigarettes per day: 0 - Social History Usual Living Arrangement: With Spouse ADL: Independent History of Recent Travel: Yes (WENT TO [facility] TWO YEARS AGO) Home Medications - Allergies Allergies/Adverse Reactions: Allergies Allergy/AdvReac Type Severity Reaction Status Date / Time No Known Allergies Allergy Verified 04/05/19 15:10 - Home Medications Home Medications: Ambulatory Orders Aspirin Coated [Ecotrin -] 81 mg PO DAILY #30 tablet.ec 07/09/16 Allopurinol [Zyloprim -] 100 mg PO DAILY 10/02/17 Atorvastatin Ca [Lipitor] 20 mg PO HS 10/02/17 Gabapentin [Neurontin -] 300 mg PO HS 10/02/17 Acetaminophen [Tylenol .Extra-Strength -] 500 mg PO Q6H PRN tablet 11/12/17 Tamsulosin HCl [Flomax -] 0.4 mg PO DAILY@0830 #90 cap.er.24h 11/12/17 Bisacodyl [Bisacodyl -] 5 mg PO DAILY 11/26/18 Carvedilol [Coreg -] 12.5 mg PO BID 11/26/18 Cinacalcet HCl [Sensipar] 30 mg PO DAILY 11/26/18 Isosorbide Mononitrate [Imdur -] 90 mg PO DAILY 11/26/18 Latanoprost/Pf [Latanoprost 0.005% Eye Drop] 1 drp OP HS 11/26/18 Polyethylene Glycol 3350 [Miralax 119 gm Btl -] 17 gm PO DAILY 11/26/18 Potassium Chloride 20 meq PO BID 11/26/18 Ranitidine HCl [Zantac] 150 mg PO BID 11/26/18 Insulin Sliding Scale [Novolog Vial Sliding Scale -] 1 vial SQ ACHS units 03/20 Albuterol 2.5/Ipratropium 0.5 [Duoneb -] 1 unit NEB TID 04/06/19 Colchicine 0.6 mg PO BID 04/06/19 Furosemide [Lasix -] 80 mg PO BID 04/06/19 Insulin (Levemir) [Levemir Vial] 16 units SQ HS 04/06/19 Levothyroxine [Synthroid -] 50 mcg PO 0630 04/06/19 Melatonin/Pyridoxine HCl (B6) [Melatonin 5 mg Tablet] 1 each PO HS 04/06/19 Simethicone [Gas Relief] 125 mg PO TID PRN 04/06/19 Vancomycin HCl 125 mg PO Q6H 04/06/19 hydrALAZINE HCL [Apresoline -] 50 mg PO TID 04/06/19 Lactobacillus Acidophilus [Bacid -] 1 each PO DAILY #30 capsule 04/08/19 Vancomycin Oral Solution 125 mg PO Q6HPO 10 Days #100 ml 04/08/19 Review of Systems - Review of Systems Constitutional: reports: No Symptoms Eyes: reports: No Symptoms HENT: reports: No Symptoms Neck: reports: No Symptoms Cardiovascular: reports: No Symptoms Gastrointestinal: reports: No Symptoms Genitourinary: reports: No Symptoms Breasts: reports: No Symptoms Reported Musculoskeletal: reports: No Symptoms Integumentary: reports: No Symptoms Neurological: reports: No Symptoms Endocrine: reports: No Symptoms Hematology/Lymphatic: reports: No Symptoms Psychiatric: reports: No Symptoms Vital Signs: Vital Signs Temperature 97.5 F L 04/14/19 10:00 Pulse Rate 87 04/14/19 10:00 Respiratory Rate 18 04/14/19 10:00 Blood Pressure 116/55 L 04/14/19 10:00 O2 Sat by Pulse Oximetry (%) 100 04/13/19 21:00 Constitutional: Yes: Well Nourished, No Distress, Calm Eyes: Yes: WNL, Conjunctiva Clear, EOM Intact HENT: Yes: WNL, Atraumatic, Normocephalic Neck: Yes: WNL, Supple, Trachea Midline Respiratory: Yes: WNL, Regular, CTA Bilaterally Gastrointestinal: Yes: WNL, Normal Bowel Sounds Renal/: Yes: WNL Cardiovascular: Yes: WNL, Regular Rate and Rhythm Musculoskeletal: Yes: WNL Extremities: Yes: WNL Integumentary: Yes: WNL Neurological: Yes: WNL, Alert, Oriented ...Motor Strength: WNL Psychiatric: Yes: WNL, Alert, Oriented - Other Data Labs, Other Data: CBC, BMP 04/14/19 05:22 04/14/19 05:22 INR, PTT INR 1.11 (0.83-1.09) H 04/05/19 18:21 Troponin, BNP 04/14/19 05:22 Troponin I 0.04 B-Natriuretic Peptide 4586.5 H Troponin, BNP 04/14/19 05:22 Troponin I 0.04 B-Natriuretic Peptide 4586.5 H Imaging - Results Chest X-ray: Image Reviewed (worsening chf) EKG: Image Reviewed (sr s arhythmia) Problem List - Problems (1) ANDRÉS (acute kidney injury) Code(s): N17.9 - ACUTE KIDNEY FAILURE, UNSPECIFIED (2) C. difficile diarrhea Code(s): A04.72 - ENTEROCOLITIS D/T CLOSTRIDIUM DIFFICILE, NOT SPCF RECUR (3) Dehydration Code(s): E86.0 - DEHYDRATION (4) Diastolic CHF Code(s): I50.30 - UNSPECIFIED DIASTOLIC (CONGESTIVE) HEART FAILURE (5) Hyperkalemia Code(s): E87.5 - HYPERKALEMIA (6) Traumatic hematoma of foot Code(s): S90.30XA - CONTUSION OF UNSPECIFIED FOOT, INITIAL ENCOUNTER (7) UTI (urinary tract infection) Code(s): N39.0 - URINARY TRACT INFECTION, SITE NOT SPECIFIED Qualifiers: Urinary tract infection type: site unspecified Hematuria presence: without hematuria Qualified Code(s): N39.0 - Urinary tract infection, site not specified (8) Urinary retention with incomplete bladder emptying Code(s): R33.9 - RETENTION OF URINE, UNSPECIFIED (9) Weakness Code(s): R53.1 - WEAKNESS (10) ANDRÉS (acute kidney injury) Code(s): N17.9 - ACUTE KIDNEY FAILURE, UNSPECIFIED (11) Abdominal pain Code(s): R10.9 - UNSPECIFIED ABDOMINAL PAIN (12) Abnormal liver function test Code(s): R94.5 - ABNORMAL RESULTS OF LIVER FUNCTION STUDIES (13) Acute on chronic respiratory failure with hypercapnia Code(s): J96.22 - ACUTE AND CHRONIC RESPIRATORY FAILURE WITH HYPERCAPNIA (14) Acute on chronic respiratory failure with hypoxia and hypercapnia Code(s): J96.21 - ACUTE AND CHRONIC RESPIRATORY FAILURE WITH HYPOXIA; J96.22 - ACUTE AND CHRONIC RESPIRATORY FAILURE WITH HYPERCAPNIA (15) Anemia Code(s): D64.9 - ANEMIA, UNSPECIFIED (16) Ataxia Code(s): R27.0 - ATAXIA, UNSPECIFIED (17) Bilateral lower extremity edema Code(s): R60.0 - LOCALIZED EDEMA (18) Blood clot in bladder Code(s): N32.89 - OTHER SPECIFIED DISORDERS OF BLADDER (19) CAD (coronary artery disease) Code(s): I25.10 - ATHSCL HEART DISEASE OF [place] CORONARY ARTERY W/O ANG PCTRS Qualifiers: Coronary Disease-Associated Artery/Lesion type: [place] artery (20) CHF (congestive heart failure) Code(s): I50.9 - HEART FAILURE, UNSPECIFIED (21) CHF exacerbation Code(s): I50.9 - HEART FAILURE, UNSPECIFIED Qualifiers: Heart failure type: unspecified Qualified Code(s): I50.9 - Heart failure, unspecified (22) CRF (chronic renal failure) Code(s): N18.9 - CHRONIC KIDNEY DISEASE, UNSPECIFIED Qualifiers: Chronic kidney disease stage: stage 4 (severe) Qualified Code(s): N18.4 - Chronic kidney disease, stage 4 (severe) (23) CRF (chronic renal failure) Code(s): N18.9 - CHRONIC KIDNEY DISEASE, UNSPECIFIED (24) Cerebellar infarct Code(s): I63.9 - CEREBRAL INFARCTION, UNSPECIFIED (25) Cervical spondylosis with myelopathy and radiculopathy Code(s): M47.12 - OTHER SPONDYLOSIS WITH MYELOPATHY, CERVICAL REGION; M47.22 - OTHER SPONDYLOSIS WITH RADICULOPATHY, CERVICAL REGION (26) Chest pain Code(s): R07.9 - CHEST PAIN, UNSPECIFIED Qualifiers: Chest pain type: unspecified Qualified Code(s): R07.9 - Chest pain, unspecified (27) Diabetes mellitus Code(s): E11.9 - TYPE 2 DIABETES MELLITUS WITHOUT COMPLICATIONS Qualifiers: Diabetes mellitus type: type 2 Diabetes mellitus continuous churn buttermaker insulin use: unspecified fpc insulin use status Diabetes mellitus complication status : with other specified complication Qualified Code(s): E11.69 - Type 2 diabetes mellitus with other specified complication (28) Diarrhea Code(s): R19.7 - DIARRHEA, UNSPECIFIED (29) Elevated liver enzymes Code(s): R74.8 - ABNORMAL LEVELS OF OTHER SERUM ENZYMES (30) Fall Code(s): W19.XXXA - UNSPECIFIED FALL, INITIAL ENCOUNTER Qualifiers: Encounter type: initial encounter Qualified Code(s): W19.XXXA - Unspecified fall, initial encounter (31) Foot trauma Code(s): S99.929A - UNSPECIFIED INJURY OF UNSPECIFIED FOOT, INITIAL ENCOUNTER (32) Gout flare Code(s): M10.9 - GOUT, UNSPECIFIED (33) Hypokalemia Code(s): E87.6 - HYPOKALEMIA (34) Hyponatremia Code(s): E87.1 - HYPO-OSMOLALITY AND HYPONATREMIA (35) Hyponatremia Code(s): E87.1 - HYPO-OSMOLALITY AND HYPONATREMIA (36) Hyponatremia Code(s): E87.1 - HYPO-OSMOLALITY AND HYPONATREMIA (37) Impaired gait Code(s): R26.9 - UNSPECIFIED ABNORMALITIES OF GAIT AND MOBILITY (38) Incomplete bladder emptying Code(s): R33.9 - RETENTION OF URINE, UNSPECIFIED (39) Left arm pain Code(s): M79.602 - PAIN IN LEFT ARM (40) Leukocytosis Code(s): D72.829 - ELEVATED WHITE BLOOD CELL COUNT, UNSPECIFIED (41) Non-occlusive coronary artery disease Code(s): I25.10 - ATHSCL HEART DISEASE OF [place] CORONARY ARTERY W/O ANG PCTRS (42) Pelvis fracture Code(s): S32.9XXA - FRACTURE OF UNSP PARTS OF LUMBOSACRAL SPINE AND PELVIS, INIT (43) Systolic murmur Code(s): R01.1 - CARDIAC MURMUR, UNSPECIFIED (44) Tachypnea Code(s): R06.82 - TACHYPNEA, NOT ELSEWHERE CLASSIFIED (45) Unable to walk Code(s): R26.2 - DIFFICULTY IN WALKING, NOT ELSEWHERE CLASSIFIED (46) Urinary retention Code(s): R33.9 - RETENTION OF URINE, UNSPECIFIED (47) Urinary retention Code(s): R33.9 - RETENTION OF URINE, UNSPECIFIED (48) Acute urinary retention Code(s): R33.8 - OTHER RETENTION OF URINE (49) Anemia Code(s): D64.9 - ANEMIA, UNSPECIFIED Qualifiers: Anemia type: unspecified type Qualified Code(s): D64.9 - Anemia, unspecified (50) CAD (coronary artery disease) Code(s): I25.10 - ATHSCL HEART DISEASE OF [place] CORONARY ARTERY W/O ANG PCTRS Qualifiers: Coronary Disease-Associated Artery/Lesion type: [place] artery [place] vs. transplanted heart: [place] heart Associated angina: with unspecified angina Qualified Code(s): I25.119 - Atherosclerotic heart disease of [place] coronary artery with unspecified angina pectoris (51) CHF (congestive heart failure) Code(s): I50.9 - HEART FAILURE, UNSPECIFIED (52) CKD (chronic kidney disease) stage 3, GFR 30-59 ml/min Code(s): N18.3 - CHRONIC KIDNEY DISEASE, STAGE 3 (MODERATE) (53) CKD stage G3b/A1, GFR 30 - 44 and albumin creatinine ratio >30 mg/g Code(s): N18.3 - CHRONIC KIDNEY DISEASE, STAGE 3 (MODERATE) (54) Chronic renal disease Code(s): N18.9 - CHRONIC KIDNEY DISEASE, UNSPECIFIED Qualifiers: Chronic kidney disease stage: unspecified stage Qualified Code(s): N18.9 - Chronic kidney disease, unspecified (55) Colon polyp Code(s): K63.5 - POLYP OF COLON (56) Decreased hearing of right ear Code(s): H91.91 - UNSPECIFIED HEARING LOSS, RIGHT EAR (57) Diabetes mellitus Code(s): E11.9 - TYPE 2 DIABETES MELLITUS WITHOUT COMPLICATIONS Qualifiers: Diabetes mellitus type: other specified (including JAVAD) Diabetes mellitus fpc insulin use: without fpc use Diabetes mellitus complication status: without complication Qualified Code(s): E13.9 - Other specified diabetes mellitus without complications (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 Code(s): E11.59 - TYPE 2 DIABETES MELLITUS WITH OTH CIRCULATORY COMPLICATIONS; I43 - CARDIOMYOPATHY IN DISEASES CLASSIFIED ELSEWHERE (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 Code(s): E11.69 - TYPE 2 DIABETES MELLITUS WITH OTHER SPECIFIED COMPLICATION; K63.9 - DISEASE OF INTESTINE, UNSPECIFIED (60) Diverticulosis Code(s): K57.90 - DVRTCLOS OF INTEST, PART UNSP, W/O PERF OR ABSCESS W/O BLEED (61) Endothelial dysfunction of coronary artery Code(s): I99.8 - OTHER DISORDER OF CIRCULATORY SYSTEM (62) Fracture of right inferior pubic ramus Code(s): S32.591A - OTH FRACTURE OF RIGHT PUBIS, INIT ENCNTR FOR CLOSED FRACTURE (63) Hyperlipidemia Code(s): E78.5 - HYPERLIPIDEMIA, UNSPECIFIED Qualifiers: Hyperlipidemia type: pure hypercholesterolemia Qualified Code(s): E78.00 - Pure hypercholesterolemia, unspecified; E78.0 - Pure hypercholesterolemia (64) Hypertension Code(s): I10 - ESSENTIAL (PRIMARY) HYPERTENSION Qualifiers: Hypertension type: unspecified Qualified Code(s): I10 - Essential (primary ) hypertension (65) Hypothyroidism Code(s): E03.9 - HYPOTHYROIDISM, UNSPECIFIED Qualifiers: Hypothyroidism type: unspecified Qualified Code(s): E03.9 - Hypothyroidism , unspecified (66) Lung nodule Code(s): R91.1 - SOLITARY PULMONARY NODULE (67) Pubic ramus fracture Code(s): S32.599A - OTH FRACTURE OF UNSP PUBIS, INIT ENCNTR FOR CLOSED FRACTURE Qualifiers: Encounter type: subsequent encounter Fracture type: closed Laterality: unspecified laterality Fracture healing: with routine healing Qualified Code (s): S32.599D - Other specified fracture of unspecified pubis, subsequent encounter for fracture with routine healing (68) Uncontrolled diabetes mellitus Code(s): E11.65 - TYPE 2 DIABETES MELLITUS WITH HYPERGLYCEMIA Qualifiers: Diabetes mellitus type: type 2 (69) Unstable angina Code(s): I20.0 - UNSTABLE ANGINA (70) Abdominal pain Code(s): R10.9 - UNSPECIFIED ABDOMINAL PAIN (71) Abdominal pain in female Code(s): R10.9 - UNSPECIFIED ABDOMINAL PAIN (72) Acute renal failure Code(s): N17.9 - ACUTE KIDNEY FAILURE, UNSPECIFIED Qualifiers: Acute renal failure type: unspecified Qualified Code(s): N17.9 - Acute kidney failure, unspecified (73) [id number] kidney injury Code(s): N17.9 - ACUTE KIDNEY FAILURE, UNSPECIFIED; N18.9 - CHRONIC KIDNEY DISEASE, UNSPECIFIED Qualifiers: Chronic kidney disease stage: stage 4 (severe) (74) Altered mental status Code(s): R41.82 - ALTERED MENTAL STATUS, UNSPECIFIED (75) CHF exacerbation Code(s): I50.9 - HEART FAILURE, UNSPECIFIED (76) Chest pain Code(s): R07.9 - CHEST PAIN, UNSPECIFIED Qualifiers: Chest pain type: chest pain on breathing Qualified Code(s): R07.1 - Chest pain on breathing (77) Constipation Code(s): K59.00 - CONSTIPATION, UNSPECIFIED (78) Constipation due to neurogenic bowel Code(s): K59.00 - CONSTIPATION, UNSPECIFIED (79) Dyspnea Code(s): R06.00 - DYSPNEA, UNSPECIFIED Qualifiers: Dyspnea type: other forms of dyspnea Qualified Code(s): R06.09 - Other forms of dyspnea (80) Fall Code(s): W19.XXXA - UNSPECIFIED FALL, INITIAL ENCOUNTER Qualifiers: Encounter type: initial encounter Qualified Code(s): W19.XXXA - Unspecified fall, initial encounter (81) Fecal impaction in rectum Code(s): K56.41 - FECAL IMPACTION (82) Fecal impaction of colon Code(s): K56.41 - FECAL IMPACTION (83) Gram-negative bacteremia Code(s): R78.81 - BACTEREMIA (84) Head trauma Code(s): S09.90XA - UNSPECIFIED INJURY OF HEAD, INITIAL ENCOUNTER (85) Headache Code(s): R51 - HEADACHE (86) Hypercalcemia Code(s): E83.52 - HYPERCALCEMIA (87) Hyperkalemia Code(s): E87.5 - HYPERKALEMIA (88) Hypochloremia Code(s): E87.8 - OTH DISORDERS OF ELECTROLYTE AND FLUID BALANCE, NEC (89) Hypokalemia Code(s): E87.6 - HYPOKALEMIA (90) Hypomagnesemia Code(s): E83.42 - HYPOMAGNESEMIA (91) Hyponatremia Code(s): E87.1 - HYPO-OSMOLALITY AND HYPONATREMIA (92) Leg edema Code(s): R60.0 - LOCALIZED EDEMA (93) Near syncope Code(s): R55 - SYNCOPE AND COLLAPSE (94) Paresthesia Code(s): R20.2 - PARESTHESIA OF SKIN (95) Pneumonia Code(s): J18.9 - PNEUMONIA, UNSPECIFIED ORGANISM (96) Pyelonephritis Code(s): N12 - TUBULO-INTERSTITIAL NEPHRITIS, NOT SPCF ACUTE OR CHRONIC (97) Sepsis Code(s): A41.9 - SEPSIS, UNSPECIFIED ORGANISM Qualifiers: Sepsis type: sepsis due to unspecified organism Qualified Code(s): A41.9 - Sepsis, unspecified organism (98) Syncope Code(s): R55 - SYNCOPE AND COLLAPSE (99) UTI (urinary tract infection) Code(s): N39.0 - URINARY TRACT INFECTION, SITE NOT SPECIFIED Qualifiers: Urinary tract infection type: site unspecified Hematuria presence: without hematuria Qualified Code(s): N39.0 - Urinary tract infection, site not specified (100) UTI (urinary tract infection), uncomplicated Code(s): N39.0 - URINARY TRACT INFECTION, SITE NOT SPECIFIED Assessment/Plan 83 y.o CHF, HTN, HLD, CAD - non-obstructive, CKD, DM, hypothyroid, chronic abdominal pain, and GERD admitted from [facility] with C. difficile colitis diagnosed with CHF worsening CXR and elevated BNP. Plan; change lasix to 40 IV qd monitor renal function repeat ekg coverage for dr. Kiser
--- NOTE | 2019-04-14 11:41 | PN ---
Progress Note, Physician History of Present Illness: Pt is alert, still weak. Less SOB noted. Less confused. CXR results noted to show increase in congestion. Lasix switched to IV. CT Head without acute findings. Remains afebrile. - Current Medication List Current Medications: Active Medications Albuterol/Ipratropium (Duoneb -) 1 amp NEB Q8H PRN PRN Reason: ASTHMA Allopurinol (Zyloprim -) 100 mg PO DAILY [facility] Last Admin: 04/14/19 09:41 Dose: 100 mg Alprazolam (Xanax -) 0.25 mg PO ONCE ONE Stop: 04/13/19 12:00 Aspirin (Ecotrin -) 81 mg PO DAILY [facility] Last Admin: 04/14/19 09:40 Dose: 81 mg Carvedilol (Coreg -) 12.5 mg PO BID [facility] Last Admin: 04/14/19 09:40 Dose: 12.5 mg Cinacalcet (Sensipar -) 30 mg PO DAILY [facility] Last Admin: 04/14/19 09:40 Dose: 30 mg Colchicine (Colcrys) 0.6 mg PO BID [facility] Last Admin: 04/14/19 09:41 Dose: 0.6 mg Famotidine (Pepcid -) 20 mg PO BID [facility] Last Admin: 04/14/19 09:41 Dose: 20 mg Furosemide (Lasix Injection -) 40 mg IVPUSH DAILY [facility] Gabapentin (Neurontin -) 300 mg PO HS [facility] Last Admin: 04/13/19 21:44 Dose: 300 mg Heparin Sodium (Porcine) (Heparin -) 5,000 unit SQ BID [facility] Last Admin: 04/14/19 09:42 Dose: 5,000 unit Hydralazine HCl (Apresoline -) 50 mg PO TID [facility] Last Admin: 04/14/19 06:15 Dose: 50 mg Insulin Aspart (Novolog Vial Sliding Scale -) 1 vial SQ [facility]; Protocol Last Admin: 04/14/19 06:07 Dose: Not Given Insulin Detemir (Levemir Vial) 16 units SQ HS [facility] Last Admin: 04/13/19 21:45 Dose: 16 units Isosorbide Mononitrate (Imdur -) 90 mg PO DAILY [facility] Last Admin: 04/14/19 09:41 Dose: 90 mg Latanoprost (Xalatan 0.005% Eye Drops -) 1 drop OU HS [facility] Last Admin: 04/13/19 22:00 Dose: 1 drop Levothyroxine Sodium (Synthroid -) 50 mcg PO AM [facility] Last Admin: 04/14/19 06:15 Dose: 50 mcg Simethicone (Mylicon -) 80 mg PO Q8H PRN PRN Reason: GAS Last Admin: 04/13/19 15:01 Dose: 80 mg Tamsulosin HCl (Flomax -) 0.4 mg PO DAILY@0830 [facility] Last Admin: 04/14/19 09:41 Dose: 0.4 mg Vancomycin HCl (Vancomycin Oral Solution) 125 mg PO Q6HPO [facility] Last Admin: 04/14/19 06:15 Dose: 125 mg - Objective Vital Signs: Vital Signs Temperature 97.5 F L 04/14/19 10:00 Pulse Rate 87 04/14/19 10:00 Respiratory Rate 18 04/14/19 10:00 Blood Pressure 116/55 L 04/14/19 10:00 O2 Sat by Pulse Oximetry (%) 99 04/14/19 09:00 Constitutional: Yes: No Distress Cardiovascular: Yes: Regular Rate and Rhythm Respiratory: Yes: Diminished Gastrointestinal: Yes: Normal Bowel Sounds, Soft Extremities: Yes: Other (Lt dorsal foot mass, no erythema) Integumentary: Yes: WNL Labs: CBC, BMP 04/14/19 05:22 04/14/19 05:22 INR, PTT INR 1.11 (0.83-1.09) H 04/05/19 18:21 - ....Imaging Chest X-ray: Report Reviewed Cat Scan: Report Reviewed Problem List - Problems (1) ANDRÉS (acute kidney injury) Code(s): N17.9 - ACUTE KIDNEY FAILURE, UNSPECIFIED (2) C. difficile diarrhea Code(s): A04.72 - ENTEROCOLITIS D/T CLOSTRIDIUM DIFFICILE, NOT SPCF RECUR (3) Diastolic CHF Code(s): I50.30 - UNSPECIFIED DIASTOLIC (CONGESTIVE) HEART FAILURE (4) UTI (urinary tract infection) Code(s): N39.0 - URINARY TRACT INFECTION, SITE NOT SPECIFIED Qualifiers: Urinary tract infection type: site unspecified Hematuria presence: without hematuria Qualified Code(s): N39.0 - Urinary tract infection, site not specified (5) CAD (coronary artery disease) Code(s): I25.10 - ATHSCL HEART DISEASE OF [place] CORONARY ARTERY W/O ANG PCTRS Qualifiers: Coronary Disease-Associated Artery/Lesion type: [place] artery (6) CRF (chronic renal failure) Code(s): N18.9 - CHRONIC KIDNEY DISEASE, UNSPECIFIED Qualifiers: Chronic kidney disease stage: stage 4 (severe) Qualified Code(s): N18.4 - Chronic kidney disease, stage 4 (severe) (7) Diabetes mellitus Code(s): E11.9 - TYPE 2 DIABETES MELLITUS WITHOUT COMPLICATIONS Qualifiers: Diabetes mellitus type: other specified (including JAVAD) Diabetes mellitus intermediate accountant insulin use: without intermediate accountant use Diabetes mellitus complication status: without complication Qualified Code(s): E13.9 - Other specified diabetes mellitus without complications Assessment/Plan C. difficile colitis Dehydration UTI Lt foot mass -- continue Vancomycin po -- f/u blood and urine culture results -- monitor vitals closely -- MRI results noted, Podiatry following
[2019-04-14] MEDS: FUROSEMIDE 40 MG/4 ML INJECTABLE VIAL IVPUSH SCH (12:00)
--- NOTE | 2019-04-14 12:59 | CONSULT ---
Consult Consult Specialty:: Hematology Referred by:: Medicine Reason for Consultation:: Anemia, leukopenia. - History of Present Illness Chief Complaint: Admitted for generalized weakness from [place], and found to have active C-diff colitis. During course of her 1 week admission, noted that all cell lines have trended downwards (Hb 10.2 -> 8,5, platelets 146 -> 102, WCC 6 -> 3.3). Of note her ANC remains stable and normal - has developed lymphopenia. Patient unable to provide historu of prior hematological issues. - History Source History Provided By: Medical Record Limitations to Obtaining History: Clinical Condition - Past Medical History Cardio/Vascular: Yes: CAD (non-obstructive), CHF, HTN, Hyperlipdemia, Other ( Angina pectoris) Gastrointestinal: Yes: Constipation, Diverticulosis, GERD, Other (colon polyps: sessil serrated adenomas x 2 2014) Renal/: Yes: Renal Inusuff Musculoskeletal: Yes: Other Endocrine: Yes: Diabetes Mellitus (Insulin dependent), Hypothyroidism - Past Surgical History Past Surgical History: Yes: Hysterectomy (BRAXTON, BSO in 1981), Oopherectomy - Alcohol/Substance Use Hx Alcohol Use: No History of Substance Use: reports: None - Smoking History Smoking history: Never smoked Have you smoked in the past 12 months: No Aproximately how many cigarettes per day: 0 - Social History Usual Living Arrangement: With Spouse ADL: Independent History of Recent Travel: Yes (WENT TO [facility] TWO YEARS AGO) Home Medications - Allergies Allergies/Adverse Reactions: Allergies Allergy/AdvReac Type Severity Reaction Status Date / Time No Known Allergies Allergy Verified 04/05/19 15:10 - Home Medications Home Medications: Ambulatory Orders Aspirin Coated [Ecotrin -] 81 mg PO DAILY #30 tablet.ec 07/09/16 Allopurinol [Zyloprim -] 100 mg PO DAILY 10/02/17 Atorvastatin Ca [Lipitor] 20 mg PO HS 10/02/17 Gabapentin [Neurontin -] 300 mg PO HS 10/02/17 Acetaminophen [Tylenol .Extra-Strength -] 500 mg PO Q6H PRN tablet 11/12/17 Tamsulosin HCl [Flomax -] 0.4 mg PO DAILY@0830 #90 cap.er.24h 11/12/17 Bisacodyl [Bisacodyl -] 5 mg PO DAILY 11/26/18 Carvedilol [Coreg -] 12.5 mg PO BID 11/26/18 Cinacalcet HCl [Sensipar] 30 mg PO DAILY 11/26/18 Isosorbide Mononitrate [Imdur -] 90 mg PO DAILY 11/26/18 Latanoprost/Pf [Latanoprost 0.005% Eye Drop] 1 drp OP HS 11/26/18 Polyethylene Glycol 3350 [Miralax 119 gm Btl -] 17 gm PO DAILY 11/26/18 Potassium Chloride 20 meq PO BID 11/26/18 Ranitidine HCl [Zantac] 150 mg PO BID 11/26/18 Insulin Sliding Scale [Novolog Vial Sliding Scale -] 1 vial SQ ACHS units 03/20 Albuterol 2.5/Ipratropium 0.5 [Duoneb -] 1 unit NEB TID 04/06/19 Colchicine 0.6 mg PO BID 04/06/19 Furosemide [Lasix -] 80 mg PO BID 04/06/19 Insulin (Levemir) [Levemir Vial] 16 units SQ HS 04/06/19 Levothyroxine [Synthroid -] 50 mcg PO 0630 04/06/19 Melatonin/Pyridoxine HCl (B6) [Melatonin 5 mg Tablet] 1 each PO HS 04/06/19 Simethicone [Gas Relief] 125 mg PO TID PRN 04/06/19 Vancomycin HCl 125 mg PO Q6H 04/06/19 hydrALAZINE HCL [Apresoline -] 50 mg PO TID 04/06/19 Lactobacillus Acidophilus [Bacid -] 1 each PO DAILY #30 capsule 04/08/19 Vancomycin Oral Solution 125 mg PO Q6HPO 10 Days #100 ml 04/08/19 Physical Exam Vital Signs: Vital Signs Temperature 97.5 F L 04/14/19 10:00 Pulse Rate 87 04/14/19 10:00 Respiratory Rate 18 04/14/19 10:00 Blood Pressure 116/55 L 04/14/19 10:00 O2 Sat by Pulse Oximetry (%) 99 04/14/19 09:00 Constitutional: Yes: Well Nourished, No Distress, Obese Eyes: Yes: Conjunctiva Clear HENT: Yes: Atraumatic, Normocephalic Neck: Yes: Supple, Trachea Midline Cardiovascular: Yes: Regular Rate and Rhythm, Murmur, S1, S2. No: Gallop Respiratory: Yes: Regular, CTA Bilaterally Gastrointestinal: Yes: Normal Bowel Sounds, Soft, Abdomen, Obese. No: Hepatomegaly, Palpable Mass, Splenomegaly Edema: No Integumentary: No: Rash Neurological: Yes: Alert, Confusion. No: Oriented Psychiatric: Yes: Alert Labs: CBC, BMP 04/14/19 05:22 04/14/19 05:22 Assessment/Plan NH patient, with multiple comorbidities, admitted for generalized weakness, and being treated with vancomycin for suspected C diff. Noted to slow exacerbation during course of admission in anemia and thrombocytopenia. Also now noted to be lymphopenic. Above findings are non-specific, and not unexpected in context of hospitalized patients with acute illness. Multifactorial etiology, including medications, multiple blood draws. May also be a dilutional effect if she was volume depleted when she arrived. Have a low index of suspicion for a primary hematological issue. Impaired renal function at baseline. Would not be unreasonable to screen for underlying nutritional causes of anemia , but these would not explain her acute cytopenias. Similarly, can screen for an underlying plasma cell dyscrasia if not recently done (SPEP, serum free LCs) Otherwise, from a hematological point of view, observation only. Will follow with you
--- NOTE | 2019-04-14 13:01 | CON.PULM ---
Consult Consult Specialty:: PULMONARY Referred by:: Dr Sunshine Reason for Consultation:: shortness of breath - History of Present Illness Chief Complaint: weakness History of Present Illness: 83yo female with h/o HTN, DM, hyperlipidemia, LV diastolic dysfunction, CKD, GERD who was admitted with generalized weakness. Being treated for acute kidney injury and C diff colitis. Yesterday became more short of breath, CXR showing increased congestion and ABG with acute on chronic respiratory acidosis. Pt poor historian, unable to provide further history at this time. - History Source History Provided By: Patient, Medical Record Limitations to Obtaining History: Clinical Condition - Past Medical History Cardio/Vascular: Yes: CAD (non-obstructive), CHF, HTN, Hyperlipdemia, Other ( Angina pectoris) Gastrointestinal: Yes: Constipation, Diverticulosis, GERD, Other (colon polyps: sessil serrated adenomas x 2 2014) Renal/: Yes: Renal Inusuff Musculoskeletal: Yes: Other Endocrine: Yes: Diabetes Mellitus (Insulin dependent), Hypothyroidism - Past Surgical History Past Surgical History: Yes: Hysterectomy (BRAXTON, BSO in 1981), Oopherectomy - Alcohol/Substance Use Hx Alcohol Use: No History of Substance Use: reports: None - Smoking History Smoking history: Never smoked Have you smoked in the past 12 months: No Aproximately how many cigarettes per day: 0 - Social History Usual Living Arrangement: With Spouse ADL: Independent History of Recent Travel: Yes (WENT TO [facility] TWO YEARS AGO) Home Medications - Allergies Allergies/Adverse Reactions: Allergies Allergy/AdvReac Type Severity Reaction Status Date / Time No Known Allergies Allergy Verified 04/05/19 15:10 - Home Medications Home Medications: Ambulatory Orders Aspirin Coated [Ecotrin -] 81 mg PO DAILY #30 tablet.ec 07/09/16 Allopurinol [Zyloprim -] 100 mg PO DAILY 10/02/17 Atorvastatin Ca [Lipitor] 20 mg PO HS 10/02/17 Gabapentin [Neurontin -] 300 mg PO HS 10/02/17 Acetaminophen [Tylenol .Extra-Strength -] 500 mg PO Q6H PRN tablet 11/12/17 Tamsulosin HCl [Flomax -] 0.4 mg PO DAILY@0830 #90 cap.er.24h 11/12/17 Bisacodyl [Bisacodyl -] 5 mg PO DAILY 11/26/18 Carvedilol [Coreg -] 12.5 mg PO BID 11/26/18 Cinacalcet HCl [Sensipar] 30 mg PO DAILY 11/26/18 Isosorbide Mononitrate [Imdur -] 90 mg PO DAILY 11/26/18 Latanoprost/Pf [Latanoprost 0.005% Eye Drop] 1 drp OP HS 11/26/18 Polyethylene Glycol 3350 [Miralax 119 gm Btl -] 17 gm PO DAILY 11/26/18 Potassium Chloride 20 meq PO BID 11/26/18 Ranitidine HCl [Zantac] 150 mg PO BID 11/26/18 Insulin Sliding Scale [Novolog Vial Sliding Scale -] 1 vial SQ ACHS units 03/20 Albuterol 2.5/Ipratropium 0.5 [Duoneb -] 1 unit NEB TID 04/06/19 Colchicine 0.6 mg PO BID 04/06/19 Furosemide [Lasix -] 80 mg PO BID 04/06/19 Insulin (Levemir) [Levemir Vial] 16 units SQ HS 04/06/19 Levothyroxine [Synthroid -] 50 mcg PO 0630 04/06/19 Melatonin/Pyridoxine HCl (B6) [Melatonin 5 mg Tablet] 1 each PO HS 04/06/19 Simethicone [Gas Relief] 125 mg PO TID PRN 04/06/19 Vancomycin HCl 125 mg PO Q6H 04/06/19 hydrALAZINE HCL [Apresoline -] 50 mg PO TID 04/06/19 Lactobacillus Acidophilus [Bacid -] 1 each PO DAILY #30 capsule 04/08/19 Vancomycin Oral Solution 125 mg PO Q6HPO 10 Days #100 ml 04/08/19 Review of Systems Unable to obtain ROS, reason: pt poor historian Physical Exam Vital Sings: Vital Signs Temperature 97.5 F L 04/14/19 10:00 Pulse Rate 87 04/14/19 10:00 Respiratory Rate 18 04/14/19 10:00 Blood Pressure 116/55 L 04/14/19 10:00 O2 Sat by Pulse Oximetry (%) 99 04/14/19 09:00 Constitutional: Yes: Other (lethargic but arousable) Eyes: Yes: Conjunctiva Clear, EOM Intact HENT: Yes: Atraumatic, Normocephalic Neck: Yes: Supple, Trachea Midline Cardiovascular: Yes: Regular Rate and Rhythm Respiratory: Yes: Diminished (decreased breath sounds at the bases) ...Clubbing: No Gastrointestinal: Yes: Normal Bowel Sounds, Soft. No: Tenderness Edema: No Neurological: Yes: Confusion Labs: CBC, BMP 04/14/19 05:22 04/14/19 05:22 ABG Results ABG pH 7.28 (7.35-7.45) L 04/13/19 17:00 ABG pCO2 at Pt Temp 74.8 mmHg (35-45) H* 04/13/19 17:00 ABG pO2 at Pt Temp 138 mmHg (80-100) H 04/13/19 17:00 ABG HCO3 33.8 mmol/L (22-27) H 04/13/19 17:00 ABG O2 Sat (Measured) 98.3 % (95-98) H 04/13/19 17:00 ABG O2 Content 15.5 % vol 04/13/19 17:00 ABG Base Excess 5.5 meq/l (-2-2) H 04/13/19 17:00 Imaging - Results Chest X-ray: Report Reviewed, Image Reviewed (pulmonary vascular congestion) Assessment/Plan Acute on Chronic Hypercapneic Respiratory Failure Acute on Chronic Diastolic Heart Failure Acute on Chronic Renal Failure C Diff Colitis HTN DM Hyperlipidemia Hypothyroidism r/o Obstructive Sleep Apnea - IV lasix - monitor urine output, creatinine - daily weights - O2 to keep SpO2 >90% - BiPAP at night and PRN during day - inhaled bronchodilators - outpt PFTs and NPSG - DVT prophylaxis Thank you for this consult Arnaldo Scott MD
--- NOTE | 2019-04-14 13:12 | PN ---
Progress Note (short form) - Note Progress Note: Patient seen in bed. Sleepling today. +palpable mass, MRI reviewed mass noted -tender on palpation, , Tumor left foot MRI. Mass currently not emergent considering other co-morbidities. If patient can tolerate and requets excision will take to OR to remove neoplasm. Will follow. Will discuss with family.
[2019-04-14] MEDS ORDERED: FUROSEMIDE 20 MG TABLET (FP) PO SCH (14:00)
--- NOTE | 2019-04-14 14:36 | CON.GI ---
Consult Consult Specialty:: coverage for Dr Holliday - History of Present Illness History of Present Illness: I was asked to see the patient because of elevated liver enzymes. 83yo F with PMH of CHF, HTN, HLD, CAD, CKD, DM, hypothyroid, chronic abdominal pain, and GERD, weakness and falls, presenting from [facility] with weakness, poor po intake, chest pain, nausea, vomiting, and dysuria. s./p recent UTIs urinary retention and CDiff colitis. The patient was noted to have worsening liver function on this admission. The medication list of the patient was reviewed. - Past Medical History Cardio/Vascular: Yes: CAD (non-obstructive), CHF, HTN, Hyperlipdemia, Other ( Angina pectoris) Gastrointestinal: Yes: Constipation, Diverticulosis, GERD, Other (colon polyps: sessil serrated adenomas x 2 2014) Renal/: Yes: Renal Inusuff Musculoskeletal: Yes: Other Endocrine: Yes: Diabetes Mellitus (Insulin dependent), Hypothyroidism - Past Surgical History Past Surgical History: Yes: Hysterectomy (BRAXTON, BSO in 1981), Oopherectomy - Alcohol/Substance Use Hx Alcohol Use: No History of Substance Use: reports: None - Smoking History Smoking history: Never smoked Have you smoked in the past 12 months: No Aproximately how many cigarettes per day: 0 - Social History Usual Living Arrangement: With Spouse ADL: Independent History of Recent Travel: Yes (WENT TO [facility] TWO YEARS AGO) Home Medications - Allergies Allergies/Adverse Reactions: Allergies Allergy/AdvReac Type Severity Reaction Status Date / Time No Known Allergies Allergy Verified 04/05/19 15:10 - Home Medications Home Medications: Ambulatory Orders Aspirin Coated [Ecotrin -] 81 mg PO DAILY #30 tablet.ec 07/09/16 Allopurinol [Zyloprim -] 100 mg PO DAILY 10/02/17 Atorvastatin Ca [Lipitor] 20 mg PO HS 10/02/17 Gabapentin [Neurontin -] 300 mg PO HS 10/02/17 Acetaminophen [Tylenol .Extra-Strength -] 500 mg PO Q6H PRN tablet 11/12/17 Tamsulosin HCl [Flomax -] 0.4 mg PO DAILY@0830 #90 cap.er.24h 11/12/17 Bisacodyl [Bisacodyl -] 5 mg PO DAILY 11/26/18 Carvedilol [Coreg -] 12.5 mg PO BID 11/26/18 Cinacalcet HCl [Sensipar] 30 mg PO DAILY 11/26/18 Isosorbide Mononitrate [Imdur -] 90 mg PO DAILY 11/26/18 Latanoprost/Pf [Latanoprost 0.005% Eye Drop] 1 drp OP HS 11/26/18 Polyethylene Glycol 3350 [Miralax 119 gm Btl -] 17 gm PO DAILY 11/26/18 Potassium Chloride 20 meq PO BID 11/26/18 Ranitidine HCl [Zantac] 150 mg PO BID 11/26/18 Insulin Sliding Scale [Novolog Vial Sliding Scale -] 1 vial SQ ACHS units 03/20 Albuterol 2.5/Ipratropium 0.5 [Duoneb -] 1 unit NEB TID 04/06/19 Colchicine 0.6 mg PO BID 04/06/19 Furosemide [Lasix -] 80 mg PO BID 04/06/19 Insulin (Levemir) [Levemir Vial] 16 units SQ HS 04/06/19 Levothyroxine [Synthroid -] 50 mcg PO 0630 04/06/19 Melatonin/Pyridoxine HCl (B6) [Melatonin 5 mg Tablet] 1 each PO HS 04/06/19 Simethicone [Gas Relief] 125 mg PO TID PRN 04/06/19 Vancomycin HCl 125 mg PO Q6H 04/06/19 hydrALAZINE HCL [Apresoline -] 50 mg PO TID 04/06/19 Lactobacillus Acidophilus [Bacid -] 1 each PO DAILY #30 capsule 04/08/19 Vancomycin Oral Solution 125 mg PO Q6HPO 10 Days #100 ml 04/08/19 Physical Exam-GI Vital Signs: Vital Signs Temperature 97.6 F 04/14/19 13:01 Pulse Rate 88 04/14/19 13:01 Respiratory Rate 18 04/14/19 13:01 Blood Pressure 110/58 L 04/14/19 13:01 O2 Sat by Pulse Oximetry (%) 99 04/14/19 09:00 Constitutional: Yes: No Distress, Other Eyes: Yes: Conjunctiva Clear HENT: Yes: Atraumatic Neck: Yes: Supple Cardiovascular: Yes: Regular Rate and Rhythm Respiratory: Yes: CTA Bilaterally ...Palpate: Yes: Soft, Tenderness (--mild ruq). No: Firm/Rigid, Guarding, Hepatomegaly, Mass, Pulsatile Mass, Splenomegaly Labs: CBC, BMP 04/14/19 05:22 04/14/19 05:22 INR, PTT INR 1.11 (0.83-1.09) H 04/05/19 18:21 Problem List - Problems (1) Elevated liver enzymes Assessment/Plan: moderate hepatocellular injury most likely secondary to hepatotoxic medication which can include Gabapentin and cinacalcet mild ruq pain--hard to assess R> may need to decrease the dose these medications and to observe closely serial LFTS abdominal ultrasound Hepatitis serologies if not done recently Code(s): R74.8 - ABNORMAL LEVELS OF OTHER SERUM ENZYMES
--- NOTE | 2019-04-14 14:53 | PN ---
Progress Note, Physician History of Present Illness: Pt seen and examined at bedside. She is more awake and interactive today. She denies shortness of breath. - Current Medication List Current Medications: Active Medications Albuterol/Ipratropium (Duoneb -) 1 amp NEB RTID [facility] Allopurinol (Zyloprim -) 100 mg PO DAILY [facility] Last Admin: 04/14/19 09:41 Dose: 100 mg Alprazolam (Xanax -) 0.25 mg PO ONCE ONE Stop: 04/13/19 12:00 Aspirin (Ecotrin -) 81 mg PO DAILY [facility] Last Admin: 04/14/19 09:40 Dose: 81 mg Carvedilol (Coreg -) 12.5 mg PO BID [facility] Last Admin: 04/14/19 09:40 Dose: 12.5 mg Cinacalcet (Sensipar -) 30 mg PO DAILY [facility] Last Admin: 04/14/19 09:40 Dose: 30 mg Colchicine (Colcrys) 0.6 mg PO BID [facility] Last Admin: 04/14/19 09:41 Dose: 0.6 mg Famotidine (Pepcid -) 20 mg PO BID [facility] Last Admin: 04/14/19 09:41 Dose: 20 mg Furosemide (Lasix Injection -) 40 mg IVPUSH DAILY [facility] Last Admin: 04/14/19 12:00 Dose: 40 mg Gabapentin (Neurontin -) 300 mg PO HS [facility] Last Admin: 04/13/19 21:44 Dose: 300 mg Heparin Sodium (Porcine) (Heparin -) 5,000 unit SQ BID [facility] Last Admin: 04/14/19 09:42 Dose: 5,000 unit Hydralazine HCl (Apresoline -) 50 mg PO TID [facility] Last Admin: 04/14/19 13:27 Dose: 50 mg Insulin Aspart (Novolog Vial Sliding Scale -) 1 vial SQ [facility]; Protocol Last Admin: 04/14/19 12:07 Dose: Not Given Insulin Detemir (Levemir Vial) 16 units SQ HS [facility] Last Admin: 04/13/19 21:45 Dose: 16 units Isosorbide Mononitrate (Imdur -) 90 mg PO DAILY [facility] Last Admin: 04/14/19 09:41 Dose: 90 mg Latanoprost (Xalatan 0.005% Eye Drops -) 1 drop OU HS [facility] Last Admin: 04/13/19 22:00 Dose: 1 drop Levothyroxine Sodium (Synthroid -) 50 mcg PO AM [facility] Last Admin: 04/14/19 06:15 Dose: 50 mcg Simethicone (Mylicon -) 80 mg PO Q8H PRN PRN Reason: GAS Last Admin: 04/13/19 15:01 Dose: 80 mg Tamsulosin HCl (Flomax -) 0.4 mg PO DAILY@0830 [facility] Last Admin: 04/14/19 09:41 Dose: 0.4 mg Vancomycin HCl (Vancomycin Oral Solution) 125 mg PO Q6HPO [facility] Last Admin: 04/14/19 13:27 Dose: 125 mg - Objective Vital Signs: Vital Signs Temperature 97.6 F 04/14/19 13:01 Pulse Rate 88 04/14/19 13:01 Respiratory Rate 18 04/14/19 13:01 Blood Pressure 110/58 L 04/14/19 13:01 O2 Sat by Pulse Oximetry (%) 99 04/14/19 09:00 Constitutional: Yes: Calm Eyes: Yes: Conjunctiva Clear HENT: Yes: Atraumatic Neck: Yes: Supple Cardiovascular: Yes: S1, S2 Respiratory: Yes: CTA Bilaterally Gastrointestinal: Yes: Soft Genitourinary: Yes: [place] Present Musculoskeletal: Yes: Muscle Weakness Edema: No Integumentary: Yes: WNL Neurological: Yes: Confusion Labs: CBC, BMP 04/14/19 05:22 04/14/19 05:22 INR, PTT INR 1.11 (0.83-1.09) H 04/05/19 18:21 Assessment/Plan Current Medications Generic Name Dose Route Start Last Admin Trade Name Jourdanq PRN Reason Stop Dose Admin Albuterol/Ipratropium 1 amp 04/14/19 14:00 Duoneb - NEB RTID [facility] Allopurinol 100 mg 04/07/19 10:00 04/14/19 09:41 Zyloprim - PO 100 mg DAILY [facility] Administration Alprazolam 0.25 mg 04/13/19 11:59 Xanax - PO 04/13/19 12:00 ONCE ONE Aspirin 81 mg 04/07/19 10:00 04/14/19 09:40 Ecotrin - PO 81 mg DAILY [facility] Administration Carvedilol 12.5 mg 04/06/19 22:00 04/14/19 09:40 Coreg - PO 12.5 mg BID [facility] Administration Cinacalcet 30 mg 04/07/19 10:00 04/14/19 09:40 Sensipar - PO 30 mg DAILY [facility] Administration Colchicine 0.6 mg 04/06/19 22:00 04/14/19 09:41 Colcrys PO 0.6 mg BID [facility] Administration Famotidine 20 mg 04/06/19 22:00 04/14/19 09:41 Pepcid - PO 20 mg BID [facility] Administration Furosemide 40 mg 04/14/19 11:30 04/14/19 12:00 Lasix Injection - IVPUSH 40 mg DAILY [facility] Administration Gabapentin 300 mg 04/06/19 22:00 04/13/19 21:44 Neurontin - PO 300 mg HS [facility] Administration Heparin Sodium (Porcine) 5,000 unit 04/06/19 22:00 04/14/19 09:42 Heparin - SQ 5,000 unit BID [facility] Administration Hydralazine HCl 50 mg 04/06/19 14:00 04/14/19 13:27 Apresoline - PO 50 mg TID [facility] Administration Insulin Aspart 1 vial 04/06/19 16:30 04/14/19 12:07 Novolog Vial Sliding Scale - SQ Not Given [facility] Protocol Insulin Detemir 16 units 04/06/19 22:00 04/13/19 21:45 Levemir Vial SQ 16 units HS [facility] Administration Isosorbide Mononitrate 90 mg 04/07/19 10:00 04/14/19 09:41 Imdur - PO 90 mg DAILY [facility] Administration Latanoprost 1 drop 04/10/19 22:00 04/13/19 22:00 Xalatan 0.005% Eye Drops - OU 1 drop HS [facility] Administration Levothyroxine Sodium 50 mcg 04/07/19 07:00 04/14/19 06:15 Synthroid - PO 50 mcg AM [facility] Administration Simethicone 80 mg 04/06/19 11:06 04/13/19 15:01 Mylicon - PO 80 mg Q8H PRN Administration GAS Tamsulosin HCl 0.4 mg 04/07/19 08:30 04/14/19 09:41 Flomax - PO 0.4 mg DAILY@0830 [facility] Administration Vancomycin HCl 125 mg 04/06/19 00:00 04/14/19 13:27 Vancomycin Oral Solution PO 125 mg Q6HPO [facility] Administration Laboratory Tests 04/14/19 09:40 Ur Random Sodium 8 L 1. Acute kidney injury 2. CKD 3. C. diff colitis 4. hx of CHF w/o acute exacerbation 5. Anemia 6. hypernatremia Plan - cxr is worsening - renal function is at baseline - pt on lasix - pulm input appreciated - fluids stopped - encourage PO intake - if not eating or hypoglycemic can give d5w - monitor renal function - bnp elevated however echo from 03/11 shows normal systolic function, renal dysfunction can contribute to elevated bnp as well - cont to monitor volume status closely
[2019-04-14] MEDS: ALBUTEROL SO4 2.5/IPRATROPIUM 0.5 INH SOL 3 ML VIAL.NEB. NEB SCH ×2 (17:23→19:37)
[2019-04-14] MEDS: GABAPENTIN 300 MG CAPSULE (FP) PO SCH (21:46)
[2019-04-14] MEDS: INSULIN (LEVEMIR) 100 UNITS/ML UNITS SQ SCH (21:48)
[2019-04-14] MEDS: LATANOPROST 0.005% OPHTH SOLN 2.5ML BOTTLE OU SCH (21:48)
[2019-04-15] MEDS: INSULIN SLIDING SCALE (NOVOLOG) 1 VIAL SQ SCH ×5 (06:58→22:10)
[2019-04-15] MEDS: VANCOMYCIN 250 MG/5 ML ORAL SOLUTION PO SCH ×4 (06:58→23:46)
[2019-04-15] MEDS: LEVOTHYROXINE NA 50 MCG TABLET (FP) PO SCH (06:58)
[2019-04-15] MEDS: hydrALAZINE HCL 50 MG TABLET (FP) PO SCH (06:58)
[2019-04-15 07:03] LABS: BASO % 0.4 % (0-2.0); EOS % 0.2 % (0-4.5); HEMATOCRIT 27.2 % (32.4-45.2); HEMOGLOBIN 8.9 GM/dL (10.7-15.3); LYMPH % 11.2 % (8-40); MCH 29.3 pg (25.7-33.7); MCHC 32.6 g/dl (32.0-36.0); MEAN CELL VOLUME 90.2 fl (80-96); MEAN PLT VOLUME 10.7 fl (7.5-11.1); MONO % 8.2 % (3.8-10.2); PLATELET COUNT 118 K/MM3 (134-434); RBC 3.02 M/mm3 (3.60-5.2); RDW 19.4 % (11.6-15.6); WHITE BLOOD COUNT 3.6 K/mm3 (4.0-10.0)
[2019-04-15] MEDS ORDERED: CARVEDILOL 12.5 MG TABLET (FP) PO SCH (07:30)
[2019-04-15] MEDS ORDERED: GABAPENTIN 100 MG CAPSULE (FP) PO PRN (07:36)
--- NOTE | 2019-04-15 07:38 | PN ---
Progress Note, Physician Chief Complaint: in bed sleepy but arousable no appetite, was agitated last night received IV lasix x 1 per cardio yesterday; creat 2.8 today and higher LFts BP borderline low but SBP not lower than 90 - 100 hydralazine stopped; sensipar and neurontin cut down also per GI rec d/w renal dr Tian - started on low dose IVF, watch for CHF; dr Tian will see her this am - Current Medication List Current Medications: Active Medications Albuterol/Ipratropium (Duoneb -) 1 amp NEB RTID [facility] Last Admin: 04/14/19 19:37 Dose: 1 amp Allopurinol (Zyloprim -) 100 mg PO DAILY [facility] Last Admin: 04/14/19 09:41 Dose: 100 mg Alprazolam (Xanax -) 0.25 mg PO ONCE ONE Stop: 04/13/19 12:00 Aspirin (Ecotrin -) 81 mg PO DAILY [facility] Last Admin: 04/14/19 09:40 Dose: 81 mg Carvedilol (Coreg -) 12.5 mg PO BID [facility] Famotidine (Pepcid -) 20 mg PO BID [facility] Last Admin: 04/14/19 21:46 Dose: 20 mg Furosemide (Lasix Injection -) 40 mg IVPUSH DAILY [facility] Last Admin: 04/14/19 12:00 Dose: 40 mg Gabapentin (Neurontin -) 100 mg PO HS PRN PRN Reason: BACK PAIN Heparin Sodium (Porcine) (Heparin -) 5,000 unit SQ BID [facility] Last Admin: 04/14/19 21:46 Dose: 5,000 unit Insulin Aspart (Novolog Vial Sliding Scale -) 1 vial SQ [facility]; Protocol Last Admin: 04/15/19 06:58 Dose: Not Given Insulin Detemir (Levemir Vial) 16 units SQ HS [facility] Last Admin: 04/14/19 21:48 Dose: Not Given Isosorbide Mononitrate (Imdur -) 90 mg PO DAILY [facility] Last Admin: 04/14/19 09:41 Dose: 90 mg Latanoprost (Xalatan 0.005% Eye Drops -) 1 drop OU HS [facility] Last Admin: 04/14/19 21:48 Dose: 1 drop Levothyroxine Sodium (Synthroid -) 50 mcg PO AM [facility] Last Admin: 04/15/19 06:58 Dose: Not Given Simethicone (Mylicon -) 80 mg PO Q8H PRN PRN Reason: GAS Last Admin: 04/13/19 15:01 Dose: 80 mg Tamsulosin HCl (Flomax -) 0.4 mg PO DAILY@0830 [facility] Last Admin: 04/14/19 09:41 Dose: 0.4 mg Vancomycin HCl (Vancomycin Oral Solution) 125 mg PO Q6HPO [facility] Last Admin: 04/15/19 06:58 Dose: Not Given - Objective Vital Signs: Vital Signs Temperature 97.7 F 04/15/19 05:00 Pulse Rate 70 04/15/19 05:00 Respiratory Rate 20 04/15/19 05:00 Blood Pressure 106/44 L 04/15/19 05:00 O2 Sat by Pulse Oximetry (%) 96 04/14/19 20:33 Constitutional: Yes: No Distress Eyes: Yes: Conjunctiva Clear HENT: Yes: Atraumatic Neck: Yes: Supple Cardiovascular: Yes: Regular Rate and Rhythm Respiratory: Yes: Diminished Gastrointestinal: Yes: Soft. No: Tenderness Genitourinary: Yes: [place] Present Musculoskeletal: No: Joint Stiffness, Joint Swelling Extremities: No: Cold, Cool Edema: No Integumentary: No: Rash Neurological: Yes: Alert ...Motor Strength: WNL Psychiatric: Yes: Alert. No: Agitated Labs: INR, PTT INR 1.11 (0.83-1.09) H 04/05/19 18:21 - ....Imaging Other: Report Reviewed Assessment/Plan 83yo F with PMH of CHF, HTN, HLD, CAD, CKD, DM, hypothyroid, chronic abdominal pain, and GERD, weakness and falls, admitted with weakness, poor po intake, chest pain, nausea, vomiting, and dysuria. s./p recent UTIs urinary retention and CDiff colitis. Now with ARF / CRF; high LFTs (had recent liver US negative) ; anxiety and insomnia, poor po intake; confusion, pancytopenia; CHF congestive changes and CO2 retention. IVF; stopped hydralazine, hold BP meds if SBP<110 renal f/u d/w dr Tian r/o hepatorenal sd started on IV ceftriaxone for UTI per renal cardiology, pulmonary, heme and GI f/u close labs f/u; liver US I/O [place] in O2 / bipap per pulm falls decubs DVT Pfx d/w pt and staff d/w daughter prognosis guarded
[2019-04-15] MEDS: ALBUTEROL SO4 2.5/IPRATROPIUM 0.5 INH SOL 3 ML VIAL.NEB. NEB SCH ×3 (07:49→20:53)
[2019-04-15 08:33] LABS: BILIRUBIN,TOTAL 0.9 mg/dL (0.2-1); CREATININE 2.8 mg/dL (0.55-1.3); POTASSIUM 5.6 mmol/L (3.5-5.1); TOT PROT 6.1 g/dl (6.4-8.2)
[2019-04-15] MEDS ORDERED: SODIUM CHLORIDE 1,000 ML IV SCH (10:00)
[2019-04-15] MEDS: FUROSEMIDE 40 MG/4 ML INJECTABLE VIAL IVPUSH SCH (10:47)
[2019-04-15] MEDS ORDERED: SODIUM POLYSTYRENE SULFONATE 15 GM/60 ML BOTTLE PO ONE (11:00)
[2019-04-15 11:03] LABS: ERYTHROCYTE SEDIMENTATION RATE 85 mm/hr (0-30)
[2019-04-15] MEDS: TAMSULOSIN HCL 0.4 MG CAP PO SCH (11:51)
[2019-04-15] MEDS: ALLOPURINOL 100 MG TABLET (FP) PO SCH (11:52)
[2019-04-15] MEDS: FAMOTIDINE 20 MG TABLET PO SCH (11:52)
[2019-04-15] MEDS: ASPIRIN COATED 81 MG TABLET.EC PO SCH (11:52)
[2019-04-15] MEDS: ISOSORBIDE MONONITRATE 30 MG TAB.SR.24H (FP) PO SCH (11:52)
--- NOTE | 2019-04-15 11:56 | PN ---
Progress Note (short form) - Note Progress Note: Renal follow up for ANDRÉS on CKD Seen and examined at the bedside awake but lethagic family at the bedside pt has been confused refusing oral medications has had loose BM but not diarrhea per nurse oral intake has been poor johnston in place but with poor urine output Vital Signs Temperature 97.7 F 04/15/19 05:00 Pulse Rate 82 04/15/19 09:00 Respiratory Rate 21 H 04/15/19 09:00 Blood Pressure 128/53 L 04/15/19 09:00 O2 Sat by Pulse Oximetry (%) 97 04/15/19 07:55 Intake & Output 04/12/19 04/13/19 04/14/19 04/15/19 23:59 23:59 23:59 23:59 Intake Total 2185 878 1110 0 Output Total 500 450 50 100 Balance 1707 694 6365 -100 confused awake and alert necks supple RRR Dec BS, no rales soft NT/ND + edema in LE CBC, BMP 04/15/19 06:30 04/15/19 06:30 Current Medications Albumin Human (Albumin Human 25%) 12.5 gm IVPB Q6H [facility] Stop: 04/16/19 06:01 Albuterol/Ipratropium (Duoneb -) 1 amp NEB RTID [facility] Last Admin: 04/15/19 07:49 Dose: 1 amp Alprazolam (Xanax -) 0.25 mg PO ONCE ONE Stop: 04/13/19 12:00 Aspirin (Ecotrin -) 81 mg PO DAILY [facility] Last Admin: 04/14/19 09:40 Dose: 81 mg Carvedilol (Coreg -) 12.5 mg PO BID [facility] Famotidine (Pepcid -) 20 mg PO BID [facility] Last Admin: 04/14/19 21:46 Dose: 20 mg Heparin Sodium (Porcine) (Heparin -) 5,000 unit SQ BID [facility] Last Admin: 04/14/19 21:46 Dose: 5,000 unit Ceftriaxone Sodium 1 gm/ (Dextrose) 50 mls @ 200 mls/hr IVPB DAILY [facility]; Protocol Insulin Aspart (Novolog Vial Sliding Scale -) 1 vial SQ ACHS [facility]; Protocol Last Admin: 04/15/19 06:58 Dose: Not Given Insulin Detemir (Levemir Vial) 16 units SQ HS [facility] Last Admin: 04/14/19 21:48 Dose: Not Given Latanoprost (Xalatan 0.005% Eye Drops -) 1 drop OU HS [facility] Last Admin: 04/14/19 21:48 Dose: 1 drop Levothyroxine Sodium (Synthroid -) 50 mcg PO AM [facility] Last Admin: 04/15/19 06:58 Dose: Not Given Midodrine (Proamatine -) 5 mg PO TID-MID [facility] Simethicone (Mylicon -) 80 mg PO Q8H PRN PRN Reason: GAS Last Admin: 04/13/19 15:01 Dose: 80 mg Tamsulosin HCl (Flomax -) 0.4 mg PO DAILY@0830 [facility] Last Admin: 04/14/19 09:41 Dose: 0.4 mg Vancomycin HCl (Vancomycin Oral Solution) 125 mg PO Q6HPO [facility] Last Admin: 04/15/19 06:58 Dose: Not Given 83 year old [place] woman with 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 1. Acute kidney injury secondary to intravascular volume depletion 2. CKD 3. C. diff colitis 4. hx of CHF w/o acute exacerbation 5. Anemia Renal function now acutely worsened. Suspect due to hypoprofusion from sepsis vs. CHF vs. HRS. Check repeat urine studies. Will hold IVF given chest congestion and non-complaince with BIPAP. To give PO Midodrine to increase BP and d/c imdur for now. Maintain coreg with hold parameters. Trial of IV Albumin for 24 hours. Give Kayexalte via NGT if needed Trend ammonia levels Check RUQ US Prognosis is guarded Wm Tian DO
[2019-04-15] MEDS: HEPARIN NA (PORCINE) 5,000 UNITS/ML 1ML VIAL SQ SCH ×2 (11:57→22:10)
--- NOTE | 2019-04-15 12:16 | PN ---
Progress Note (short form) - Note Progress Note: Lethargic. Refusing meds. Refused NIPPV support overnight. Intake & Output 04/12/19 04/13/19 04/14/19 04/15/19 23:59 23:59 23:59 23:59 Intake Total 2185 878 1110 0 Output Total 500 450 50 100 Balance 3595 900 8946 -100 Last Vital Signs Temp Pulse Resp BP Pulse Ox 97.7 F 82 21 H 128/53 L 97 04/15/19 05:00 04/15/19 09:00 04/15/19 09:00 04/15/19 09:00 04/15/19 07:55 Active Medications Albumin Human (Albumin Human 25%) 12.5 gm IVPB Q6H [facility] Stop: 04/16/19 07:01 Albuterol/Ipratropium (Duoneb -) 1 amp NEB RTID [facility] Last Admin: 04/15/19 07:49 Dose: 1 amp Alprazolam (Xanax -) 0.25 mg PO ONCE ONE Stop: 04/13/19 12:00 Aspirin (Ecotrin -) 81 mg PO DAILY [facility] Last Admin: 04/15/19 11:52 Dose: 81 mg Carvedilol (Coreg -) 12.5 mg PO BID [facility] Last Admin: 04/15/19 11:52 Dose: 12.5 mg Famotidine (Pepcid -) 20 mg PO BID [facility] Last Admin: 04/15/19 11:52 Dose: 20 mg Heparin Sodium (Porcine) (Heparin -) 5,000 unit SQ BID [facility] Last Admin: 04/15/19 11:57 Dose: 5,000 unit Ceftriaxone Sodium 1 gm/ (Dextrose) 50 mls @ 100 mls/hr IVPB DAILY [facility]; Protocol Insulin Aspart (Novolog Vial Sliding Scale -) 1 vial SQ ACHS [facility]; Protocol Last Admin: 04/15/19 12:06 Dose: Not Given Insulin Detemir (Levemir Vial) 16 units SQ HS [facility] Last Admin: 04/14/19 21:48 Dose: Not Given Latanoprost (Xalatan 0.005% Eye Drops -) 1 drop OU HS [facility] Last Admin: 04/14/19 21:48 Dose: 1 drop Levothyroxine Sodium (Synthroid -) 50 mcg PO AM [facility] Last Admin: 04/15/19 06:58 Dose: Not Given Midodrine (Proamatine -) 5 mg PO TID-MID [facility] Simethicone (Mylicon -) 80 mg PO Q8H PRN PRN Reason: GAS Last Admin: 04/13/19 15:01 Dose: 80 mg Tamsulosin HCl (Flomax -) 0.4 mg PO DAILY@0830 [facility] Last Admin: 04/15/19 11:51 Dose: 0.4 mg Vancomycin HCl (Vancomycin Oral Solution) 125 mg PO Q6HPO [facility] Last Admin: 04/15/19 11:52 Dose: 125 mg Constitutional: Yes: lethargic but arousable, confused Eyes: Yes: Conjunctiva Clear, EOM Intact HENT: Yes: Atraumatic, Normocephalic Neck: Yes: Supple, Trachea Midline Cardiovascular: Yes: Regular Rate and Rhythm Respiratory: Yes: Bilateral scattered rhonchi, diminished at the bases ...Clubbing: No Gastrointestinal: Yes: Normal Bowel Sounds, Soft. No: Tenderness Edema: No Neurological: Yes: Confusion Labs: Laboratory Results - last 24 hr 04/14/19 04/14/19 04/14/19 10:00 17:17 21:44 WBC RBC Hgb Hct MCV MCH MCHC RDW Plt Count MPV Absolute Neuts (auto) Neutrophils % Lymphocytes % Monocytes % Eosinophils % Basophils % Nucleated RBC % ESR Sodium Potassium Chloride Carbon Dioxide Anion Gap BUN Creatinine Est GFR (CKD-EPI)AfAm Est GFR (CKD-EPI)NonAf POC Glucometer 65 95 Random Glucose Calcium Iron Ferritin Total Bilirubin AST ALT Alkaline Phosphatase Ammonia 53.90 H Troponin I Total Protein Albumin Vitamin B12 Serum Folate 04/15/19 04/15/19 04/15/19 05:18 06:30 06:30 WBC 3.6 L RBC 3.02 L Hgb 8.9 L Hct 27.2 L MCV 90.2 MCH 29.3 MCHC 32.6 RDW 19.4 H Plt Count 118 L MPV 10.7 Absolute Neuts (auto) 2.9 Neutrophils % 80.0 Lymphocytes % 11.2 D Monocytes % 8.2 Eosinophils % 0.2 Basophils % 0.4 Nucleated RBC % 0 ESR 85 H Sodium 142 Potassium 5.6 H Chloride 102 Carbon Dioxide 34 H Anion Gap 6 L BUN 76.0 H Creatinine 2.8 H Est GFR (CKD-EPI)AfAm 17.38 Est GFR (CKD-EPI)NonAf 14.99 POC Glucometer 89 Random Glucose 91 Calcium 8.0 L Iron 78 Ferritin Total Bilirubin 0.9 AST 177 H ALT 167 H Alkaline Phosphatase 170 H Ammonia Troponin I Total Protein 6.1 L Albumin 3.0 L Vitamin B12 Serum Folate 27 H 04/15/19 04/15/19 04/15/19 06:30 06:30 12:04 WBC RBC Hgb Hct MCV MCH MCHC RDW Plt Count MPV Absolute Neuts (auto) Neutrophils % Lymphocytes % Monocytes % Eosinophils % Basophils % Nucleated RBC % ESR Sodium Potassium Chloride Carbon Dioxide Anion Gap BUN Creatinine Est GFR (CKD-EPI)AfAm Est GFR (CKD-EPI)NonAf POC Glucometer 82 Random Glucose Calcium Iron Ferritin 327.5 Total Bilirubin AST ALT Alkaline Phosphatase Ammonia Troponin I 0.11 H Total Protein Albumin Vitamin B12 1425 H Serum Folate ) Assessment/Plan Acute on Chronic Hypercapneic Respiratory Failure Acute on Chronic Diastolic Heart Failure Acute on Chronic Renal Failure C Diff Colitis HTN DM Hyperlipidemia Hypothyroidism r/o Obstructive Sleep Apnea - IV lasix - monitor urine output, creatinine - daily weights - O2 to keep SpO2 >90% - NIPPV support AHS and PRN during the day if she is willing - inhaled bronchodilators - outpt PFTs and NPSG - DVT prophylaxis Dr Bell
--- NOTE | 2019-04-15 12:39 | PN ---
Progress Note, Physician Chief Complaint: Confused Restained History of Present Illness: Patient was seen and examined. Awake but confused. Chart was reviewed Denies chest pain or shortness of breath - Current Medication List Current Medications: Active Medications Albumin Human (Albumin Human 25%) 12.5 gm IVPB Q6H [facility] Stop: 04/16/19 07:01 Albuterol/Ipratropium (Duoneb -) 1 amp NEB RTID [facility] Last Admin: 04/15/19 07:49 Dose: 1 amp Alprazolam (Xanax -) 0.25 mg PO ONCE ONE Stop: 04/13/19 12:00 Aspirin (Ecotrin -) 81 mg PO DAILY [facility] Last Admin: 04/15/19 11:52 Dose: 81 mg Carvedilol (Coreg -) 12.5 mg PO BID [facility] Last Admin: 04/15/19 11:52 Dose: 12.5 mg Famotidine (Pepcid -) 20 mg PO BID [facility] Last Admin: 04/15/19 11:52 Dose: 20 mg Heparin Sodium (Porcine) (Heparin -) 5,000 unit SQ BID [facility] Last Admin: 04/15/19 11:57 Dose: 5,000 unit Ceftriaxone Sodium 1 gm/ (Dextrose) 50 mls @ 100 mls/hr IVPB DAILY [facility]; Protocol Insulin Aspart (Novolog Vial Sliding Scale -) 1 vial SQ ACHS [facility]; Protocol Last Admin: 04/15/19 12:06 Dose: Not Given Insulin Detemir (Levemir Vial) 16 units SQ HS [facility] Last Admin: 04/14/19 21:48 Dose: Not Given Latanoprost (Xalatan 0.005% Eye Drops -) 1 drop OU HS [facility] Last Admin: 04/14/19 21:48 Dose: 1 drop Levothyroxine Sodium (Synthroid -) 50 mcg PO AM [facility] Last Admin: 04/15/19 06:58 Dose: Not Given Midodrine (Proamatine -) 5 mg PO TID-MID [facility] Simethicone (Mylicon -) 80 mg PO Q8H PRN PRN Reason: GAS Last Admin: 04/13/19 15:01 Dose: 80 mg Tamsulosin HCl (Flomax -) 0.4 mg PO DAILY@0830 [facility] Last Admin: 04/15/19 11:51 Dose: 0.4 mg Vancomycin HCl (Vancomycin Oral Solution) 125 mg PO Q6HPO [facility] Last Admin: 04/15/19 11:52 Dose: 125 mg - Objective Vital Signs: Vital Signs Temperature 97.7 F 04/15/19 05:00 Pulse Rate 82 04/15/19 09:00 Respiratory Rate 21 H 04/15/19 09:00 Blood Pressure 128/53 L 04/15/19 09:00 O2 Sat by Pulse Oximetry (%) 97 04/15/19 07:55 Eyes: Yes: PERRL HENT: Yes: Atraumatic Neck: Yes: Supple Cardiovascular: Yes: Regular Rate and Rhythm, S1, S2 Respiratory: Yes: Diminished Gastrointestinal: Yes: Normal Bowel Sounds, Soft. No: Tenderness Edema: No Labs: CBC, BMP 04/15/19 06:30 04/15/19 06:30 Problem List - Problems (1) C. difficile diarrhea Code(s): A04.72 - ENTEROCOLITIS D/T CLOSTRIDIUM DIFFICILE, NOT SPCF RECUR (2) Diastolic CHF Code(s): I50.30 - UNSPECIFIED DIASTOLIC (CONGESTIVE) HEART FAILURE (3) Traumatic hematoma of foot Code(s): S90.30XA - CONTUSION OF UNSPECIFIED FOOT, INITIAL ENCOUNTER (4) Weakness Code(s): R53.1 - WEAKNESS (5) Abnormal liver function test Code(s): R94.5 - ABNORMAL RESULTS OF LIVER FUNCTION STUDIES (6) Acute on chronic respiratory failure with hypercapnia Code(s): J96.22 - ACUTE AND CHRONIC RESPIRATORY FAILURE WITH HYPERCAPNIA (7) Anemia Code(s): D64.9 - ANEMIA, UNSPECIFIED (8) CAD (coronary artery disease) Code(s): I25.10 - ATHSCL HEART DISEASE OF [place] CORONARY ARTERY W/O ANG PCTRS Qualifiers: Coronary Disease-Associated Artery/Lesion type: [place] artery (9) CRF (chronic renal failure) Code(s): N18.9 - CHRONIC KIDNEY DISEASE, UNSPECIFIED Qualifiers: Chronic kidney disease stage: stage 4 (severe) Qualified Code(s): N18.4 - Chronic kidney disease, stage 4 (severe) (10) Diabetes mellitus Code(s): E11.9 - TYPE 2 DIABETES MELLITUS WITHOUT COMPLICATIONS Qualifiers: Diabetes mellitus type: type 2 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 use: unspecified manufacturing quality engineer insulin use status Diabetes mellitus complication status : with other specified complication Qualified Code(s): E11.69 - Type 2 diabetes mellitus with other specified complication (11) Hyperlipidemia Code(s): E78.5 - HYPERLIPIDEMIA, UNSPECIFIED Qualifiers: Hyperlipidemia type: pure hypercholesterolemia Qualified Code(s): E78.00 - Pure hypercholesterolemia, unspecified; E78.0 - Pure hypercholesterolemia (12) Hypertension Code(s): I10 - ESSENTIAL (PRIMARY) HYPERTENSION Qualifiers: Hypertension type: unspecified Qualified Code(s): I10 - Essential (primary ) hypertension (13) Hypothyroidism Code(s): E03.9 - HYPOTHYROIDISM, UNSPECIFIED Qualifiers: Hypothyroidism type: unspecified Qualified Code(s): E03.9 - Hypothyroidism , unspecified Assessment/Plan 1. C. Diff colitis 2. Acute on chronic LV diastolic failure with elevated BNP 3. HTN 4. Hypercholesterolemia 5. Non-obstructive CAD 6. Type 2 DM 7. CKD 8. History of diverticular disease and GERD 9. History of recent foot contusion PLAN: 1. Continue Carvedilol as tolerated. Currently off Imdur and Hydralazine 2. ASA 3. Vancomycin 4. DVT prophylaxis 5. Diuretics as needed. Monitor renal function and electrolytes 6. Monitor mental status Further plans are to follow Apollo Kiser MD
--- NOTE | 2019-04-15 12:44 | PN ---
Progress Note, Physician History of Present Illness: patient a bit more drowsy family in room - Current Medication List Current Medications: Active Medications Albumin Human (Albumin Human 25%) 12.5 gm IVPB Q6H [facility] Stop: 04/16/19 07:01 Albuterol/Ipratropium (Duoneb -) 1 amp NEB RTID [facility] Last Admin: 04/15/19 07:49 Dose: 1 amp Alprazolam (Xanax -) 0.25 mg PO ONCE ONE Stop: 04/13/19 12:00 Aspirin (Ecotrin -) 81 mg PO DAILY [facility] Last Admin: 04/15/19 11:52 Dose: 81 mg Carvedilol (Coreg -) 12.5 mg PO BID [facility] Last Admin: 04/15/19 11:52 Dose: 12.5 mg Famotidine (Pepcid -) 20 mg PO BID [facility] Last Admin: 04/15/19 11:52 Dose: 20 mg Heparin Sodium (Porcine) (Heparin -) 5,000 unit SQ BID [facility] Last Admin: 04/15/19 11:57 Dose: 5,000 unit Ceftriaxone Sodium 1 gm/ (Dextrose) 50 mls @ 100 mls/hr IVPB DAILY [facility]; Protocol Insulin Aspart (Novolog Vial Sliding Scale -) 1 vial SQ ACHS [facility]; Protocol Last Admin: 04/15/19 12:06 Dose: Not Given Insulin Detemir (Levemir Vial) 16 units SQ HS [facility] Last Admin: 04/14/19 21:48 Dose: Not Given Latanoprost (Xalatan 0.005% Eye Drops -) 1 drop OU HS [facility] Last Admin: 04/14/19 21:48 Dose: 1 drop Levothyroxine Sodium (Synthroid -) 50 mcg PO AM [facility] Last Admin: 04/15/19 06:58 Dose: Not Given Midodrine (Proamatine -) 5 mg PO TID-MID [facility] Simethicone (Mylicon -) 80 mg PO Q8H PRN PRN Reason: GAS Last Admin: 04/13/19 15:01 Dose: 80 mg Tamsulosin HCl (Flomax -) 0.4 mg PO DAILY@0830 [facility] Last Admin: 04/15/19 11:51 Dose: 0.4 mg Vancomycin HCl (Vancomycin Oral Solution) 125 mg PO Q6HPO [facility] Last Admin: 04/15/19 11:52 Dose: 125 mg - Objective Vital Signs: Vital Signs Temperature 97.7 F 04/15/19 05:00 Pulse Rate 82 04/15/19 09:00 Respiratory Rate 21 H 04/15/19 09:00 Blood Pressure 128/53 L 04/15/19 09:00 O2 Sat by Pulse Oximetry (%) 97 04/15/19 07:55 Constitutional: Yes: No Distress, Calm Cardiovascular: Yes: S1, S2 Respiratory: Yes: Regular, On Nasal O2, Poor Air Entry Gastrointestinal: Yes: Normal Bowel Sounds, Soft Musculoskeletal: Yes: WNL Extremities: Yes: WNL Neurological: Yes: Other (drowsy) Labs: CBC, BMP 04/15/19 06:30 04/15/19 06:30 INR, PTT INR 1.11 (0.83-1.09) H 04/05/19 18:21 Assessment/Plan Problem List - Problems (1) ANDRÉS (acute kidney injury) Code(s): N17.9 - ACUTE KIDNEY FAILURE, UNSPECIFIED (2) C. difficile diarrhea Code(s): A04.72 - ENTEROCOLITIS D/T CLOSTRIDIUM DIFFICILE, NOT SPCF RECUR (3) Diastolic CHF Code(s): I50.30 - UNSPECIFIED DIASTOLIC (CONGESTIVE) HEART FAILURE (4) UTI (urinary tract infection) Code(s): N39.0 - URINARY TRACT INFECTION, SITE NOT SPECIFIED Qualifiers: Urinary tract infection type: site unspecified Hematuria presence: without hematuria Qualified Code(s): N39.0 - Urinary tract infection, site not specified (5) CAD (coronary artery disease) Code(s): I25.10 - ATHSCL HEART DISEASE OF [place] CORONARY ARTERY W/O ANG PCTRS Qualifiers: Coronary Disease-Associated Artery/Lesion type: [place] artery (6) CRF (chronic renal failure) Code(s): N18.9 - CHRONIC KIDNEY DISEASE, UNSPECIFIED Qualifiers: Chronic kidney disease stage: stage 4 (severe) Qualified Code(s): N18.4 - Chronic kidney disease, stage 4 (severe) (7) Diabetes mellitus Code(s): E11.9 - TYPE 2 DIABETES MELLITUS WITHOUT COMPLICATIONS Qualifiers: Diabetes mellitus type: other specified (including JAVAD) Diabetes mellitus assisted insulin use: without assisted use Diabetes mellitus complication status: without complication Qualified Code(s): E13.9 - Other specified diabetes mellitus without complications Assessment/Plan C. difficile colitis Dehydration UTI Lt foot mass -- continue Vancomycin po bipap rest as per the team
[2019-04-15] MEDS ORDERED: cefTRIAXone SODIUM 1 GM VIAL ONE (14:12)
[2019-04-15] MEDS ORDERED: DEXTROSE 5%-WATER - 50 ML IVPB ONE (14:12)
[2019-04-15] MEDS: CEFTRIAXONE 1 GM in DEXTROSE 5%-WATER - 50 ML IVPB SCH (14:54)
[2019-04-15] MEDS: MIDODRINE HCL 5 MG TABLET PO SCH ×2 (15:00→17:02)
--- NOTE | 2019-04-15 15:45 | EKG ---
Test Reason : Blood Pressure : / mmHG Vent. Rate : 082 BPM Atrial Rate : 082 BPM P-R Int : 128 ms QRS Dur : 080 ms QT Int : 380 ms P-R-T Axes : 011 051 028 degrees QTc Int : 443 ms NORMAL SINUS RHYTHM NORMAL ECG WHEN COMPARED WITH ECG OF 05-APR-2019 17:42, PREMATURE VENTRICULAR COMPLEXES ARE NO LONGER PRESENT Confirmed by BETO BRANTLEY MD ([id number]) on 04/15/2019 3:44:53 PM Referred By: KEO PAINTING Confirmed By:BETO BRANTLEY MD
[2019-04-15] MEDS: ALBUMIN HUMAN 25% 12.5 GM/50 ML VIAL IVPB SCH ×2 (15:51→18:00)
--- NOTE | 2019-04-15 18:51 | PN ---
Progress Note (short form) - Note Progress Note: Patient seen in bed. vss +palpable mass, -tender on palpation, , Tumor left foot Mass currently not emergent considering other co-morbidities no surgical intervention at this time. Will follow.
[2019-04-15 19:26] LABS: ALBUMIN 3.3 g/dl (3.4-5.0); BILIRUBIN,TOTAL 0.7 mg/dL (0.2-1); BLOOD UREA NITROGEN 87.1 mg/dL (7-18); CALCIUM 7.7 mg/dL (8.5-10.1); CREATININE 3.2 mg/dL (0.55-1.3); POTASSIUM 5.3 mmol/L (3.5-5.1); TOT PROT 6.2 g/dl (6.4-8.2)
[2019-04-15 19:49] LABS: URINE APPEARANCE TURBID; URINE COLOR DK YELLOW; URINE GLUCOSE (UA) NEGATIVE (NEGATIVE)
[2019-04-15 19:50] LABS: PH,URINE 5.5 (5.0-8.0); URINE BILIRUBIN 1+ (NEGATIVE); URINE KETONE TRACE (NEGATIVE); URINE LEUK ESTERASE 3+ (NEGATIVE); URINE NITRITE NEGATIVE (NEGATIVE); URINE PROTEIN 3+ (NEGATIVE); URINE UROBILINOGEN 0.2 mg/dL (0.2-1.0)
[2019-04-15 19:51] LABS: EPI CELLS 7.6 /HPF (0-5/HPF); HYALINE CASTS 331.33 /lpf (0-8); URINE BACTERIA 1730.6 /hpf (NEGATIVE); URINE RBC 112.3 /hpf (0-4); URINE WBC 4987.9 /hpf (0-5); YEAST FEW (NEGATIVE)
[2019-04-15] MEDS: LATANOPROST 0.005% OPHTH SOLN 2.5ML BOTTLE OU SCH (22:11)
[2019-04-15] MEDS: CARVEDILOL 3.125 MG TABLET (FP) PO SCH (22:11)
[2019-04-15] MEDS: INSULIN (LEVEMIR) 100 UNITS/ML UNITS SQ SCH (22:59)
[2019-04-16] MEDS: ALBUMIN HUMAN 25% 12.5 GM/50 ML VIAL IVPB SCH ×4 (01:49→17:51)
[2019-04-16] MEDS ORDERED: DEXTROSE 50%-WATER - 25 GM/50 ML VIAL ONE (02:35)
[2019-04-16] MEDS ORDERED: DEXTROSE 50%-WATER - 25 GM/50 ML VIAL IVPUSH ONE (02:45)
[2019-04-16] MEDS: LEVOTHYROXINE NA 50 MCG TABLET (FP) PO SCH (06:43)
[2019-04-16] MEDS: VANCOMYCIN 250 MG/5 ML ORAL SOLUTION PO SCH ×3 (06:43→17:50)
[2019-04-16] MEDS: INSULIN SLIDING SCALE (NOVOLOG) 1 VIAL SQ SCH ×4 (06:44→22:00)
[2019-04-16 06:49] LABS: BASO % 0.3 % (0-2.0); EOS % 0.1 % (0-4.5); HEMATOCRIT 23.5 % (32.4-45.2); HEMOGLOBIN 7.7 GM/dL (10.7-15.3); LYMPH % 11.8 % (8-40); MCH 29.4 pg (25.7-33.7); MONO % 8.8 % (3.8-10.2); PLATELET COUNT 100 K/MM3 (134-434); RBC 2.64 M/mm3 (3.60-5.2); RDW 18.9 % (11.6-15.6); WHITE BLOOD COUNT 2.5 K/mm3 (4.0-10.0)
[2019-04-16] MEDS: ALBUTEROL SO4 2.5/IPRATROPIUM 0.5 INH SOL 3 ML VIAL.NEB. NEB SCH ×3 (07:25→21:30)
[2019-04-16 07:53] LABS: ALBUMIN 3.4 g/dl (3.4-5.0); BILIRUBIN,TOTAL 0.7 mg/dL (0.2-1); BLOOD UREA NITROGEN 102.4 mg/dL (7-18); CALCIUM 7.5 mg/dL (8.5-10.1); CREATININE 3.4 mg/dL (0.55-1.3); MAGNESIUM 1.9 mg/dL (1.8-2.4); PHOSPHOROUS 6.4 mg/dL (2.5-4.9); POTASSIUM 5.2 mmol/L (3.5-5.1)
[2019-04-16] MEDS ORDERED: PT OWN MED DRAWER 7, Y5N ONE ×2 (09:41→14:23)
[2019-04-16] MEDS ORDERED: cefTRIAXone SODIUM 1 GM VIAL ONE (09:42)
[2019-04-16] MEDS ORDERED: DEXTROSE 5%-WATER - 50 ML IVPB ONE (09:42)
[2019-04-16] MEDS: ASPIRIN COATED 81 MG TABLET.EC PO SCH (09:48)
[2019-04-16] MEDS: CARVEDILOL 3.125 MG TABLET (FP) PO SCH (09:48)
[2019-04-16] MEDS: CEFTRIAXONE 1 GM in DEXTROSE 5%-WATER - 50 ML IVPB SCH (09:48)
[2019-04-16] MEDS: MIDODRINE HCL 5 MG TABLET PO SCH ×3 (09:48→17:27)
[2019-04-16] MEDS: TAMSULOSIN HCL 0.4 MG CAP PO SCH (09:48)
[2019-04-16] MEDS: HEPARIN NA (PORCINE) 5,000 UNITS/ML 1ML VIAL SQ SCH (09:49)
--- NOTE | 2019-04-16 11:28 | PN ---
Progress Note, Physician History of Present Illness: pulmonary lethargic,confused,-resp distress - Current Medication List Current Medications: Active Medications Albuterol/Ipratropium (Duoneb -) 1 amp NEB RTID [facility] Last Admin: 04/16/19 07:25 Dose: 1 amp Alprazolam (Xanax -) 0.25 mg PO ONCE ONE Stop: 04/13/19 12:00 Aspirin (Ecotrin -) 81 mg PO DAILY [facility] Last Admin: 04/16/19 09:48 Dose: 81 mg Carvedilol (Coreg -) 3.125 mg PO BID [facility] Last Admin: 04/16/19 09:48 Dose: 3.125 mg Ceftriaxone Sodium 1 gm/ (Dextrose) 50 mls @ 100 mls/hr IVPB DAILY [facility]; Protocol Last Admin: 04/16/19 09:48 Dose: 100 mls/hr Insulin Aspart (Novolog Vial Sliding Scale -) 1 vial SQ ACHS [facility]; Protocol Last Admin: 04/16/19 06:44 Dose: Not Given Insulin Detemir (Levemir Vial) 16 units SQ HS [facility] Last Admin: 04/15/19 22:59 Dose: Not Given Latanoprost (Xalatan 0.005% Eye Drops -) 1 drop OU HS [facility] Last Admin: 04/15/19 22:11 Dose: 1 drop Levothyroxine Sodium (Synthroid -) 50 mcg PO AM [facility] Last Admin: 04/16/19 06:43 Dose: 50 mcg Midodrine (Proamatine -) 5 mg PO TID-MID [facility] Last Admin: 04/16/19 09:48 Dose: 5 mg Simethicone (Mylicon -) 80 mg PO Q8H PRN PRN Reason: GAS Last Admin: 04/13/19 15:01 Dose: 80 mg Tamsulosin HCl (Flomax -) 0.4 mg PO DAILY@0830 [facility] Last Admin: 04/16/19 09:48 Dose: 0.4 mg Vancomycin HCl (Vancomycin Oral Solution) 125 mg PO Q6HPO [facility] Last Admin: 04/16/19 06:43 Dose: 125 mg - Objective Vital Signs: Vital Signs Temperature 97.9 F 04/16/19 06:00 Pulse Rate 76 04/16/19 06:00 Respiratory Rate 18 04/16/19 06:00 Blood Pressure 116/41 L 04/16/19 06:00 O2 Sat by Pulse Oximetry (%) 98 04/16/19 07:53 Constitutional: Yes: Well Nourished, Other (lethargic) Eyes: Yes: WNL HENT: Yes: WNL, Tonsillar Exudate Cardiovascular: Yes: Regular Rate and Rhythm, S1, S2 Respiratory: Yes: Dullness (poor inspiratory effort) Gastrointestinal: Yes: Normal Bowel Sounds, Soft Extremities: Yes: WNL Edema: No Labs: CBC, BMP 04/16/19 06:20 04/16/19 06:20 INR, PTT INR 1.11 (0.83-1.09) H 04/05/19 18:21 Laboratory Tests 04/16/19 06:20 Ammonia 33.20 H Assessment/Plan Assessment/Plan Acute on Chronic Hypercapneic Respiratory Failure Acute on Chronic Diastolic Heart Failure Acute on Chronic Renal Failure C Diff Colitis HTN DM Hyperlipidemia Hypothyroidism r/o Obstructive Sleep Apnea Elevated Ammonia level Anemia - IV lasix - monitor urine output, creatinine - daily weights - O2 to keep SpO2 >90% - NIPPV support AHS and PRN during the day if she is willing - inhaled bronchodilators - outpt PFTs and NPSG - DVT prophylaxis - monitor ammonia level - normal transfusion threshold DR DUBOIS
--- NOTE | 2019-04-16 11:54 | PN ---
Progress Note, Physician Chief Complaint: Lethargic History of Present Illness: Patient was seen and examined. Arousable but lethargic. Chart was reviewed Denies chest pain or shortness of breath - Current Medication List Current Medications: Active Medications Albuterol/Ipratropium (Duoneb -) 1 amp NEB RTID [facility] Last Admin: 04/16/19 07:25 Dose: 1 amp Alprazolam (Xanax -) 0.25 mg PO ONCE ONE Stop: 04/13/19 12:00 Aspirin (Ecotrin -) 81 mg PO DAILY [facility] Last Admin: 04/16/19 09:48 Dose: 81 mg Carvedilol (Coreg -) 3.125 mg PO BID [facility] Last Admin: 04/16/19 09:48 Dose: 3.125 mg Ceftriaxone Sodium 1 gm/ (Dextrose) 50 mls @ 100 mls/hr IVPB DAILY [facility]; Protocol Last Admin: 04/16/19 09:48 Dose: 100 mls/hr Insulin Aspart (Novolog Vial Sliding Scale -) 1 vial SQ ACHS [facility]; Protocol Last Admin: 04/16/19 11:38 Dose: Not Given Insulin Detemir (Levemir Vial) 16 units SQ HS [facility] Last Admin: 04/15/19 22:59 Dose: Not Given Latanoprost (Xalatan 0.005% Eye Drops -) 1 drop OU HS [facility] Last Admin: 04/15/19 22:11 Dose: 1 drop Levothyroxine Sodium (Synthroid -) 50 mcg PO AM [facility] Last Admin: 04/16/19 06:43 Dose: 50 mcg Midodrine (Proamatine -) 5 mg PO TID-MID [facility] Last Admin: 04/16/19 09:48 Dose: 5 mg Simethicone (Mylicon -) 80 mg PO Q8H PRN PRN Reason: GAS Last Admin: 04/13/19 15:01 Dose: 80 mg Tamsulosin HCl (Flomax -) 0.4 mg PO DAILY@0830 [facility] Last Admin: 04/16/19 09:48 Dose: 0.4 mg Vancomycin HCl (Vancomycin Oral Solution) 125 mg PO Q6HPO [facility] Last Admin: 04/16/19 06:43 Dose: 125 mg - Objective Vital Signs: Vital Signs Temperature 97.9 F 04/16/19 06:00 Pulse Rate 76 04/16/19 06:00 Respiratory Rate 18 04/16/19 06:00 Blood Pressure 116/41 L 04/16/19 06:00 O2 Sat by Pulse Oximetry (%) 98 04/16/19 07:53 Eyes: Yes: PERRL HENT: Yes: Atraumatic Neck: Yes: Supple Cardiovascular: Yes: Regular Rate and Rhythm, S1, S2 Respiratory: Yes: Diminished Gastrointestinal: Yes: Normal Bowel Sounds, Soft. No: Tenderness Edema: No Labs: CBC, BMP 04/16/19 06:20 04/16/19 06:20 INR, PTT INR 1.11 (0.83-1.09) H 04/05/19 18:21 Problem List - Problems (1) C. difficile diarrhea Code(s): A04.72 - ENTEROCOLITIS D/T CLOSTRIDIUM DIFFICILE, NOT SPCF RECUR (2) Diastolic CHF Code(s): I50.30 - UNSPECIFIED DIASTOLIC (CONGESTIVE) HEART FAILURE (3) Traumatic hematoma of foot Code(s): S90.30XA - CONTUSION OF UNSPECIFIED FOOT, INITIAL ENCOUNTER (4) Weakness Code(s): R53.1 - WEAKNESS (5) Abnormal liver function test Code(s): R94.5 - ABNORMAL RESULTS OF LIVER FUNCTION STUDIES (6) Acute on chronic respiratory failure with hypercapnia Code(s): J96.22 - ACUTE AND CHRONIC RESPIRATORY FAILURE WITH HYPERCAPNIA (7) Anemia Code(s): D64.9 - ANEMIA, UNSPECIFIED (8) CAD (coronary artery disease) Code(s): I25.10 - ATHSCL HEART DISEASE OF [place] CORONARY ARTERY W/O ANG PCTRS Qualifiers: Coronary Disease-Associated Artery/Lesion type: [place] artery (9) CRF (chronic renal failure) Code(s): N18.9 - CHRONIC KIDNEY DISEASE, UNSPECIFIED Qualifiers: Chronic kidney disease stage: stage 4 (severe) Qualified Code(s): N18.4 - Chronic kidney disease, stage 4 (severe) (10) Diabetes mellitus Code(s): E11.9 - TYPE 2 DIABETES MELLITUS WITHOUT COMPLICATIONS Qualifiers: Diabetes mellitus type: type 2 Diabetes mellitus terminal press operator insulin use: unspecified half-way insulin use status Diabetes mellitus complication status : with other specified complication Qualified Code(s): E11.69 - Type 2 diabetes mellitus with other specified complication (11) Hyperlipidemia Code(s): E78.5 - HYPERLIPIDEMIA, UNSPECIFIED Qualifiers: Hyperlipidemia type: pure hypercholesterolemia Qualified Code(s): E78.00 - Pure hypercholesterolemia, unspecified; E78.0 - Pure hypercholesterolemia (12) Hypertension Code(s): I10 - ESSENTIAL (PRIMARY) HYPERTENSION Qualifiers: Hypertension type: unspecified Qualified Code(s): I10 - Essential (primary ) hypertension (13) Hypothyroidism Code(s): E03.9 - HYPOTHYROIDISM, UNSPECIFIED Qualifiers: Hypothyroidism type: unspecified Qualified Code(s): E03.9 - Hypothyroidism , unspecified Assessment/Plan 1. C. Diff colitis 2. Acute on chronic LV diastolic failure with elevated BNP 3. HTN 4. Hypercholesterolemia 5. Non-obstructive CAD 6. Type 2 DM 7. Acute on CKD - increased Cr 8. History of diverticular disease and GERD 9. History of recent foot contusion 10. Hyperkalemia PLAN: 1. Continue Carvedilol as tolerated. Currently off Imdur and Hydralazine. Instead on Midodrine 2. ASA 3. Vancomycin dosing per level 4. DVT prophylaxis 5. Diuretics as needed. Monitor renal function and electrolytes 6. Monitor mental status 7. Correct K Further plans are to follow Apollo Kiser MD
[2019-04-16] MEDS ORDERED: FUROSEMIDE 40 MG/4 ML INJECTABLE VIAL IVPUSH ONE (12:12)
[2019-04-16] MEDS ORDERED: PANTOPRAZOLE 20 MG TABLET (FP) PO SCH (12:15)
--- NOTE | 2019-04-16 12:43 | PN ---
Progress Note, Physician History of Present Illness: stale still very weak poor nutrition - Current Medication List Current Medications: Active Medications Albumin Human (Albumin Human 25%) 12.5 gm IVPB Q6H [facility] Stop: 04/17/19 06:16 Albuterol/Ipratropium (Duoneb -) 1 amp NEB RTID [facility] Last Admin: 04/16/19 07:25 Dose: 1 amp Alprazolam (Xanax -) 0.25 mg PO ONCE ONE Stop: 04/13/19 12:00 Aspirin (Ecotrin -) 81 mg PO DAILY [facility] Last Admin: 04/16/19 09:48 Dose: 81 mg Carvedilol (Coreg -) 3.125 mg PO BID [facility] Last Admin: 04/16/19 09:48 Dose: 3.125 mg Ceftriaxone Sodium 1 gm/ (Dextrose) 50 mls @ 100 mls/hr IVPB DAILY [facility]; Protocol Last Admin: 04/16/19 09:48 Dose: 100 mls/hr Insulin Aspart (Novolog Vial Sliding Scale -) 1 vial SQ [facility]; Protocol Last Admin: 04/16/19 11:38 Dose: Not Given Insulin Detemir (Levemir Vial) 16 units SQ HS [facility] Last Admin: 04/15/19 22:59 Dose: Not Given Latanoprost (Xalatan 0.005% Eye Drops -) 1 drop OU HS [facility] Last Admin: 04/15/19 22:11 Dose: 1 drop Levothyroxine Sodium (Synthroid -) 50 mcg PO AM [facility] Last Admin: 04/16/19 06:43 Dose: 50 mcg Midodrine (Proamatine -) 5 mg PO TID-MID [facility] Last Admin: 04/16/19 09:48 Dose: 5 mg Pantoprazole Sodium (Protonix -) 20 mg PO DAILY [facility] Simethicone (Mylicon -) 80 mg PO Q8H PRN PRN Reason: GAS Last Admin: 04/13/19 15:01 Dose: 80 mg Tamsulosin HCl (Flomax -) 0.4 mg PO DAILY@0830 [facility] Last Admin: 04/16/19 09:48 Dose: 0.4 mg Vancomycin HCl (Vancomycin Oral Solution) 125 mg PO Q6HPO [facility] Last Admin: 04/16/19 06:43 Dose: 125 mg - Objective Vital Signs: Vital Signs Temperature 98.4 F 04/16/19 10:00 Pulse Rate 74 04/16/19 10:00 Respiratory Rate 18 04/16/19 10:00 Blood Pressure 116/55 L 04/16/19 10:00 O2 Sat by Pulse Oximetry (%) 98 04/16/19 09:00 Constitutional: Yes: No Distress, Calm Cardiovascular: Yes: S1, S2 Respiratory: Yes: Regular, On BiPap, On Nasal O2, Poor Air Entry Gastrointestinal: Yes: Normal Bowel Sounds, Soft Musculoskeletal: Yes: WNL Extremities: Yes: WNL Neurological: Yes: Alert, Other (drowsy) Psychiatric: Yes: Other Labs: CBC, BMP 04/16/19 06:20 04/16/19 06:20 INR, PTT INR 1.11 (0.83-1.09) H 04/05/19 18:21 Assessment/Plan Problem List - Problems (1) ANDRÉS (acute kidney injury) Code(s): N17.9 - ACUTE KIDNEY FAILURE, UNSPECIFIED (2) C. difficile diarrhea Code(s): A04.72 - ENTEROCOLITIS D/T CLOSTRIDIUM DIFFICILE, NOT SPCF RECUR (3) Diastolic CHF Code(s): I50.30 - UNSPECIFIED DIASTOLIC (CONGESTIVE) HEART FAILURE (4) UTI (urinary tract infection) Code(s): N39.0 - URINARY TRACT INFECTION, SITE NOT SPECIFIED Qualifiers: Urinary tract infection type: site unspecified Hematuria presence: without hematuria Qualified Code(s): N39.0 - Urinary tract infection, site not specified (5) CAD (coronary artery disease) Code(s): I25.10 - ATHSCL HEART DISEASE OF [place] CORONARY ARTERY W/O ANG PCTRS Qualifiers: Coronary Disease-Associated Artery/Lesion type: [place] artery (6) CRF (chronic renal failure) Code(s): N18.9 - CHRONIC KIDNEY DISEASE, UNSPECIFIED Qualifiers: Chronic kidney disease stage: stage 4 (severe) Qualified Code(s): N18.4 - Chronic kidney disease, stage 4 (severe) (7) Diabetes mellitus Code(s): E11.9 - TYPE 2 DIABETES MELLITUS WITHOUT COMPLICATIONS Qualifiers: Diabetes mellitus type: other specified (including JAVAD) Diabetes mellitus acquisition advisor insulin use: without acquisition advisor use Diabetes mellitus complication status: without complication Qualified Code(s): E13.9 - Other specified diabetes mellitus without complications Assessment/Plan C. difficile colitis Dehydration UTI Lt foot mass complete oral vanco course resp support nephro on board transfusion rest as per the team
--- NOTE | 2019-04-16 14:31 | PN ---
Progress Note (short form) - Note Progress Note: Renal follow up for ANDRÉS on CKD Seen and examined at the bedside awake but lethagic denies any shortness of breath denies any pain oral intake is poor for PRBC transfusion today BP appears improved s/p midodrine Vital Signs Temperature 98.4 F 04/16/19 10:00 Pulse Rate 74 04/16/19 10:00 Respiratory Rate 18 04/16/19 10:00 Blood Pressure 116/55 L 04/16/19 10:00 O2 Sat by Pulse Oximetry (%) 98 04/16/19 09:00 Intake & Output 04/13/19 04/14/19 04/15/19 04/16/19 23:59 23:59 23:59 23:59 Intake Total 878 1110 420 0 Output Total 450 50 300 200 Balance 428 1060 120 -200 confused awake and alert necks supple RRR Dec BS, no rales soft NT/ND + edema in LE CBC, BMP 04/16/19 06:20 04/16/19 06:20 Current Medications Albumin Human (Albumin Human 25%) 12.5 gm IVPB Q6H [facility] Stop: 04/17/19 06:16 Last Admin: 04/16/19 13:22 Dose: 12.5 gm Albuterol/Ipratropium (Duoneb -) 1 amp NEB RTID [facility] Last Admin: 04/16/19 07:25 Dose: 1 amp Alprazolam (Xanax -) 0.25 mg PO ONCE ONE Stop: 04/13/19 12:00 Aspirin (Ecotrin -) 81 mg PO DAILY [facility] Last Admin: 04/16/19 09:48 Dose: 81 mg Carvedilol (Coreg -) 3.125 mg PO BID [facility] Last Admin: 04/16/19 09:48 Dose: 3.125 mg Ceftriaxone Sodium 1 gm/ (Dextrose) 50 mls @ 100 mls/hr IVPB DAILY [facility]; Protocol Last Admin: 04/16/19 09:48 Dose: 100 mls/hr Insulin Aspart (Novolog Vial Sliding Scale -) 1 vial SQ ACHS [facility]; Protocol Last Admin: 04/16/19 11:38 Dose: Not Given Insulin Detemir (Levemir Vial) 16 units SQ HS [facility] Last Admin: 04/15/19 22:59 Dose: Not Given Latanoprost (Xalatan 0.005% Eye Drops -) 1 drop OU HS [facility] Last Admin: 04/15/19 22:11 Dose: 1 drop Levothyroxine Sodium (Synthroid -) 50 mcg PO AM [facility] Last Admin: 04/16/19 06:43 Dose: 50 mcg Midodrine (Proamatine -) 5 mg PO TID-MID [facility] Last Admin: 04/16/19 09:48 Dose: 5 mg Pantoprazole Sodium (Protonix -) 20 mg PO DAILY [facility] Simethicone (Mylicon -) 80 mg PO Q8H PRN PRN Reason: GAS Last Admin: 04/13/19 15:01 Dose: 80 mg Tamsulosin HCl (Flomax -) 0.4 mg PO DAILY@0830 [facility] Last Admin: 04/16/19 09:48 Dose: 0.4 mg Vancomycin HCl (Vancomycin Oral Solution) 125 mg PO Q6HPO [facility] Last Admin: 04/16/19 12:56 Dose: 125 mg 83 year old [place] woman with history of CKD stage 3/4 (baseline Cr 1.5-1.7 ), CHF, hypertension, CAD, hypothyrodisim who presented [place] with generalized weakness and found to have active C-diff colitis and developed ANDÉRS. 1. Acute kidney injury secondary to intravascular volume depletion 2. CKD 3. C. diff colitis 4. hx of CHF w/o acute exacerbation 5. Anemia Renal function continues to decline at this time. No overt acidosis/ hyperkalemia noted. Suspect pt has Cardio-Renal as pt has increasing congestion/3rd spacing, hepatic congestion resulting in worsening LFT's Will order Lasix to be given today after PRBC transfusion will give additional 4 doses of Albumin Urine studies show FeUrea of 8.1% indicating pre-renal injury Continue PO midodrine to maintain BP Trial of IV Albumin for 24 hours. Give Kayexalte if K > 5.5 Trend ammonia levels PRBC transfusion as per primary Prognosis is guarded Wm Tian DO
[2019-04-16] MEDS ORDERED: PANTOPRAZOLE SODIUM 40 MG VIAL IVPUSH ONE (15:30)
--- NOTE | 2019-04-16 16:37 | PN ---
Progress Note, Physician History of Present Illness: Pt w/o SOB, CP, palpitations, abd pain. Pt with weakness. Pt's dg is at bedside; pt cannot eat regular food, needs puree diet. - Current Medication List Current Medications: Active Medications Albumin Human (Albumin Human 25%) 12.5 gm IVPB Q6H [facility] Stop: 04/17/19 06:16 Last Admin: 04/16/19 13:22 Dose: 12.5 gm Albuterol/Ipratropium (Duoneb -) 1 amp NEB RTID [facility] Last Admin: 04/16/19 14:25 Dose: 1 amp Alprazolam (Xanax -) 0.25 mg PO ONCE ONE Stop: 04/13/19 12:00 Aspirin (Ecotrin -) 81 mg PO DAILY [facility] Last Admin: 04/16/19 09:48 Dose: 81 mg Carvedilol (Coreg -) 3.125 mg PO BID [facility] Last Admin: 04/16/19 09:48 Dose: 3.125 mg Ceftriaxone Sodium 1 gm/ (Dextrose) 50 mls @ 100 mls/hr IVPB DAILY [facility]; Protocol Last Admin: 04/16/19 09:48 Dose: 100 mls/hr Insulin Aspart (Novolog Vial Sliding Scale -) 1 vial SQ ACHS [facility]; Protocol Last Admin: 04/16/19 11:38 Dose: Not Given Insulin Detemir (Levemir Vial) 16 units SQ HS [facility] Last Admin: 04/15/19 22:59 Dose: Not Given Latanoprost (Xalatan 0.005% Eye Drops -) 1 drop OU HS [facility] Last Admin: 04/15/19 22:11 Dose: 1 drop Levothyroxine Sodium (Synthroid -) 50 mcg PO AM [facility] Last Admin: 04/16/19 06:43 Dose: 50 mcg Midodrine (Proamatine -) 5 mg PO TID-MID [facility] Last Admin: 04/16/19 09:48 Dose: 5 mg Pantoprazole Sodium (Protonix -) 20 mg PO DAILY [facility] Last Admin: 04/16/19 15:37 Dose: Not Given Simethicone (Mylicon -) 80 mg PO Q8H PRN PRN Reason: GAS Last Admin: 04/13/19 15:01 Dose: 80 mg Tamsulosin HCl (Flomax -) 0.4 mg PO DAILY@0830 [facility] Last Admin: 04/16/19 09:48 Dose: 0.4 mg Vancomycin HCl (Vancomycin Oral Solution) 125 mg PO Q6HPO [facility] Last Admin: 04/16/19 12:56 Dose: 125 mg - Objective Vital Signs: Vital Signs Temperature 98.6 F 04/16/19 14:00 Pulse Rate 72 04/16/19 14:00 Respiratory Rate 18 04/16/19 14:00 Blood Pressure 97/39 L 04/16/19 14:00 O2 Sat by Pulse Oximetry (%) 98 04/16/19 09:00 Constitutional: Yes: No Distress, Calm Cardiovascular: Yes: Regular Rate and Rhythm, S1, S2 Respiratory: Yes: Regular, Rales (crackles at bases). No: Rhonchi, Wheezes Gastrointestinal: Yes: Normal Bowel Sounds, Soft. No: Tenderness Edema: No Neurological: Yes: Alert, Oriented Labs: CBC, BMP 04/16/19 06:20 04/16/19 06:20 INR, PTT INR 1.11 (0.83-1.09) H 04/05/19 18:21 Problem List - Problems (1) C. difficile diarrhea Code(s): A04.72 - ENTEROCOLITIS D/T CLOSTRIDIUM DIFFICILE, NOT SPCF RECUR (2) Dehydration Code(s): E86.0 - DEHYDRATION (3) Weakness Code(s): R53.1 - WEAKNESS (4) UTI (urinary tract infection) Code(s): N39.0 - URINARY TRACT INFECTION, SITE NOT SPECIFIED Qualifiers: Urinary tract infection type: site unspecified Hematuria presence: without hematuria Qualified Code(s): N39.0 - Urinary tract infection, site not specified (5) Traumatic hematoma of foot Code(s): S90.30XA - CONTUSION OF UNSPECIFIED FOOT, INITIAL ENCOUNTER (6) Diabetes mellitus Code(s): E11.9 - TYPE 2 DIABETES MELLITUS WITHOUT COMPLICATIONS Qualifiers: Diabetes mellitus type: other specified (including JAVAD) Diabetes mellitus group home insulin use: without continuous churn buttermaker use Diabetes mellitus complication status: without complication Qualified Code(s): E13.9 - Other specified diabetes mellitus without complications (7) CKD (chronic kidney disease) stage 3, GFR 30-59 ml/min Code(s): N18.3 - CHRONIC KIDNEY DISEASE, STAGE 3 (MODERATE) (8) Diastolic CHF Code(s): I50.30 - UNSPECIFIED DIASTOLIC (CONGESTIVE) HEART FAILURE (9) Urinary retention with incomplete bladder emptying Code(s): R33.9 - RETENTION OF URINE, UNSPECIFIED (10) ANDRÉS (acute kidney injury) Code(s): N17.9 - ACUTE KIDNEY FAILURE, UNSPECIFIED (11) Hyperkalemia Code(s): E87.5 - HYPERKALEMIA (12) Anemia Code(s): D64.9 - ANEMIA, UNSPECIFIED Assessment/Plan To change diet to puree. Transfuse PRBC Pt to receive Albumin and Lasix ID, Podiatry, Renal, Pulmonary, GI consults and f/u are appreciated. Pt's condition was reviewed with her dg at bedside, all questions were answered.. Pt's case was d/w with her nurse. AM labs
--- NOTE | 2019-04-16 16:53 | PN.GI ---
GI Progress Note Subjective: Recalled to evaluate anemia Patient pancytopenic No overt bleeding reported No diarrhea today Patient found laying in bed, mouth breathing. lethargic but following commands - Objective Vital Signs: Vital Signs Temperature 98.6 F 04/16/19 14:00 Pulse Rate 72 04/16/19 14:00 Respiratory Rate 18 04/16/19 14:00 Blood Pressure 97/39 L 04/16/19 14:00 O2 Sat by Pulse Oximetry (%) 98 04/16/19 09:00 Constitutional: Calm Eyes: No: Sclera Icterus Cardiovascular: Yes: Regular Rate and Rhythm Respiratory: Yes: Rhonchi (bilaterally) ...Auscultate: Yes: Normoactive Bowel Sounds ...Palpate: Yes: Soft. No: Tenderness ...Percussion: No: Tympanitic ...Rectal Exam: Yes: Other (No external lesion, no masses, light brown stool, no blood or melena) Neurological: Yes: Alert, Lethargy Labs: CBC, BMP 04/16/19 06:20 04/16/19 06:20 INR, PTT INR 1.11 (0.83-1.09) H 04/05/19 18:21 Problem List - Problems (1) Anemia Assessment/Plan: pancytopenic No overt bleeding with light shaw stool noted on rectalexam Heme consult placed Code(s): D64.9 - ANEMIA, UNSPECIFIED Qualifiers: Anemia type: unspecified type Qualified Code(s): D64.9 - Anemia, unspecified (2) Abnormal liver function tests Assessment/Plan: Suspect secondary to passive congestion Ordered abdominal US Avoid hepatotoxic agents Code(s): R94.5 - ABNORMAL RESULTS OF LIVER FUNCTION STUDIES
[2019-04-16] MEDS ORDERED: ATROPINE SULFATE 1 MG/10 ML DISP.SYRIN IVPUSH ONE ×2 (19:58→20:09)
[2019-04-16] MEDS ORDERED: SODIUM CHLORIDE 1,000 ML IV STA (20:00)
[2019-04-16] MEDS ORDERED: CALCIUM GLUCONATE 10% - 1,000 MG/10 ML VIAL ONE (20:16)
[2019-04-16] MEDS ORDERED: PROPOFOL 1,000,000 MCG/100 ML VIAL ONE (20:48)
[2019-04-16] MEDS ORDERED: NOREPINEPHRINE BITARTRATE 4 MG/4 ML ML IV ONE (20:48)
--- NOTE | 2019-04-16 20:49 | RAPID ---
Physical Examination Vital Signs: Vital Signs Temperature 97.4 F L 04/16/19 18:31 Pulse Rate 77 04/16/19 18:31 Respiratory Rate 19 04/16/19 18:31 Blood Pressure 114/54 L 04/16/19 18:31 O2 Sat by Pulse Oximetry (%) 98 04/16/19 09:00 Labs: CBC, BMP 04/16/19 06:20 04/16/19 06:20 Rapid Response - Rapid Response Assessment: Subjective: a rapid response was called at 19:50, front office director team responded immediately. Alerted by nursing staff that patient became suddenly unresponsive. On arrival patient was unresponsive to voice commands and sternal rub. The patient had strong femoral pulses. Objective: VS1: 115/51, HR 55, SPO2 92 VS2: 40/23, HR 30, SPO2 90 General: Patient was unresponsive to verbal stimuli or sternal rub Heart: bradycardic, s1, s2 Lungs: diminished breath sounds at bases, poor inspiratory effort Extremities: 2+ femoral pulses, no edema Assessment/ Plan Unresponsive due to unclear etiology. BG was 132. escapement maker revealed sinus bradycardia however patient had difficulty maintaining airway. Anesthesia was called stat for intubation; in the interm an OPA was placed and bag valve mask ventilation was started. Patient's heart rate declined to the 30s and was given 1mg Atropine, HR improved to 100. Anesthesthesia was able to successfully place ETT; large amount of gastric secretions were suctioned from the tube. Shortly after patients HR again decreased to 30s and was given a 2nd 1mg of Atropine. Pulse was then lost and Code 99 was called. Please refer to code sheet for further details. ROSC was achieved after Epi x 1 and patient was transported to ICU for further rmonitoring.
--- NOTE | 2019-04-16 20:49 | PN ---
HC Provider Note Provider Note: Anesthesia Intubation Note Called to bedside after rapid response called Pt unresponsive with agonal resp effort being ambu-bagged by resp therapy; heart rate and BP low -- atropine being given, no chest compressions at this time. Pt responded briefly to atropine with increase HR and BP -- still no response to verbal commands. Decision to intubate to secure airway make, on first inspection there are large amounts of gastric contents in the airway. Pt decompensated intubation proceeding without complication -- no meds used BP 45/palp at this time. Placement confirmed with CO2 indicator -- ETT then suctioned for large amounts of gastric contents. Resp therapy secured ETT -- code continued after placement. Frank Rendon.
[2019-04-16] MEDS ORDERED: NOREPINEPHRINE BITARTRATE 8,000 MCG in DEXTROSE 5%-WATER - 492 ML IV SCH (21:00)
[2019-04-16] MEDS ORDERED: PROPOFOL 1,000,000 MCG/100 ML VIAL IVPB SCH (21:15)
--- NOTE | 2019-04-16 21:29 | PROC ---
Central Line Insertion Indication: Vasopressor Risks and Benefits Explained: Yes Consent on Chart: Yes Central Line: Triple Lumen Catheter Anesthesia: 1% Lidocaine Sterile Technique: Yes Ultrasound Guided Assistance: Yes Position: Right Internal Jugular Post Insertion: Yes: Bilateral Chest Expansion, Chest X-Ray Ordered Sterile Dressing Applied: Yes
--- NOTE | 2019-04-16 21:30 | PN ---
Progress Note (short form) - Note Progress Note: 83 yo female with h/o HTN, DM, hyperlipidemia, LV diastolic dysfunction, CKD, GERD who was admitted with generalized weakness. She is being treated for UTI, C. diff colitis, and ANDRÉS. Rapid response was called at 19:50. Patient was unresponsive with agonal breathing. She was bradycardic in the 30's and hypotensive. Patient immediately sedated and intubated by Anesthesia. Atropine x 1 was given with brief increase in heart rate. Patient then went into PEA. Code 99 was called and compressions immediately initiated. ROSC was achieved after 2 rounds of EPI. Physical: General: sedated Heart: tachycardic, s1, s2 Abd: Distended abdomen Lungs: diminished breath sounds at bases, course breath sounds. Extremities: 2+ femoral pulses, no edema Plan: #s/p Cardiac Arrest-PEA #Acute hypoxic respiratory failure #Septic Shock #ARDS #C. Diff colitis #UTI #Aspiration #ANDRÉS -intubated, currently not on any sedation. was put on propofol for intubation. -Fio2/02- 60 -Low TV/High PEEP (LTTV) vent settings. -RIJ placed -Pressor support with Levophed,Vasopressin,Dopamine,Phenylephrine -Maintain MAP >65 -CVP monitoring -CBC, CMP -bcx, ucx -trend lactic acid -troponins -EKG -ABGs. -Bicarb -CXR with b/l patchy infiltrates, congestion -IV abx-Start Zosyn
[2019-04-16] MEDS ORDERED: PIPERACILLIN/TAZOB 2.25 GM 2.25 GM in DEXTROSE 5%-WATER - 50 ML IVPB SCH (21:45)
[2019-04-16] MEDS: LATANOPROST 0.005% OPHTH SOLN 2.5ML BOTTLE OU SCH (22:00)
[2019-04-16] MEDS: INSULIN (LEVEMIR) 100 UNITS/ML UNITS SQ SCH (22:00)
[2019-04-16] MEDS: PIPERACILLIN/TAZOB 2.25 GM 2.25 GM in DEXTROSE 5%-WATER - 50 ML IVPB SCH (22:00)
[2019-04-16 22:05] LABS: ARTERIAL BLD GAS O2 SATURATION 88.4 % (95-98); ARTERIAL BLOOD GAS BASE EXCESS -2.1 meq/l (-2-2); ARTERIAL BLOOD GAS PCO2 55.7 mmHg (35-45); ARTERIAL BLOOD GAS PO2 60.1 mmHg (80-100); ARTERIAL BLOOD GAS pH 7.27 (7.35-7.45)
[2019-04-16 22:08] LABS: ALLENS TEST POSITIVE
[2019-04-16 23:37] LABS: BASO % 0.5 % (0-2.0); EOS % 0.4 % (0-4.5); HEMOGLOBIN 8.9 GM/dL (10.7-15.3); LYMPH % 16.9 % (8-40); MCH 28.9 pg (25.7-33.7); MCHC 31.9 g/dl (32.0-36.0); MEAN CELL VOLUME 90.5 fl (80-96); MEAN PLT VOLUME 10.4 fl (7.5-11.1); MONO % 7.2 % (3.8-10.2); RBC 3.09 M/mm3 (3.60-5.2)
[2019-04-16 23:42] LABS: WHITE BLOOD COUNT 0.4 K/mm3 (4.0-10.0)
[2019-04-16] MEDS ORDERED: VASOPRESSIN 20 UNITS/ML VIAL IV ONE ×2 (23:44→23:45)
[2019-04-16] MEDS ORDERED: VASOPRESSIN 50 UNITS in SODIUM CHLORIDE 97.5 ML IVPB SCH (23:45)
[2019-04-16 23:56] LABS: ALBUMIN 2.7 g/dl (3.4-5.0); BILIRUBIN,TOTAL 1.3 mg/dL (0.2-1); CALCIUM 7.7 mg/dL (8.5-10.1); CREATININE 3.5 mg/dL (0.55-1.3); POTASSIUM 5.3 mmol/L (3.5-5.1); TOT PROT 4.8 g/dl (6.4-8.2)
[2019-04-17] LABS: BLOOD UREA NITROGEN 112.1 mg/dL (7-18)
[2019-04-17] MEDS ORDERED: PHENYLEPHRINE HCL 10 MG/1 ML SINGLE DOSE VIAL ONE (00:15)
[2019-04-17] MEDS ORDERED: DOPAMINE 400 MG/D5W - 400,000 MCG/250 ML INFUS.BAG IVPB SCH (00:15)
[2019-04-17 00:38] LABS: ARTERIAL BLD GAS O2 SATURATION 84.1 % (95-98); ARTERIAL BLOOD GAS BASE EXCESS -8.1 meq/l (-2-2); ARTERIAL BLOOD GAS PCO2 68.1 mmHg (35-45); ARTERIAL BLOOD GAS PO2 62.2 mmHg (80-100)
[2019-04-17 00:40] LABS: ALLENS TEST POSITIVE
[2019-04-17 00:43] LABS: ARTERIAL BLOOD GAS pH 7.12 (7.35-7.45)
[2019-04-17] MEDS ORDERED: DOBUTAMINE 250 MG/D5W - 250,000 MCG/250 ML INFUS.BAG ONE (00:57)
[2019-04-17] MEDS: CARVEDILOL 3.125 MG TABLET (FP) PO SCH (00:58)
[2019-04-17] MEDS ORDERED: PIPERACILLIN/TAZOBACTAM 2.25 GM VIAL IVPB ONE ×2 (00:59→02:33)
[2019-04-17] MEDS ORDERED: DEXTROSE 5%-WATER - 50 ML IVPB ONE ×2 (00:59→02:33)
[2019-04-17] MEDS: VANCOMYCIN 250 MG/5 ML ORAL SOLUTION PO SCH (01:06)
[2019-04-17] MEDS ORDERED: TBO-FILGRASTIM 300 MCG/0.5 ML DISP.SYRINGE SQ ONE (01:16)
[2019-04-17] MEDS ORDERED: SODIUM BICARBONATE 8.4% 50 MEQ/50 ML DISP.SYRIN IVPUSH ONE (01:17)
[2019-04-17 01:38] LABS: PLATELET COUNT 88 K/MM3 (134-434)
[2019-04-17 01:42] LABS: SMUDGE CELLS FEW
[2019-04-17 01:43] LABS: PLATELET ESTIMATE DECREASED
[2019-04-17] MEDS ORDERED: HYDROCORTISONE SOD SUCCINATE 100 MG/2 ML VIAL IVPUSH SCH (02:00)
[2019-04-17] MEDS: PIPERACILLIN/TAZOB 2.25 GM 2.25 GM in DEXTROSE 5%-WATER - 50 ML IVPB SCH (02:34)
--- NOTE | 2019-04-17 05:00 | PN ---
Progress Note (short form) - Note Progress Note: No spontaneous movement. No response to verbal or tactile stimulation. Absent breath or heart sounds. No chest expansion. No pulse. Pupils were dilated and fixed, no pupillary light, gag or corneal reflexes. Family was notified. Time of 04:38.
[2019-04-17 05:29] VITALS: BP 65/41; PULSE 26; TEMP 97.3
--- NOTE | 2019-04-17 12:10 | EKG ---
Test Reason : Blood Pressure : / mmHG Vent. Rate : 080 BPM Atrial Rate : 080 BPM P-R Int : 116 ms QRS Dur : 080 ms QT Int : 380 ms P-R-T Axes : 000 044 067 degrees QTc Int : 438 ms POOR DATA QUALITY, INTERPRETATION MAY BE ADVERSELY AFFECTED NORMAL SINUS RHYTHM WITH SINUS ARRHYTHMIA NONSPECIFIC ST ABNORMALITY ABNORMAL ECG WHEN COMPARED WITH ECG OF 15-APR-2019 09:23, NO SIGNIFICANT CHANGE WAS FOUND Confirmed by ANGLE CROWLEY MD ([id number]) on 04/17/2019 12:10:12 PM Referred By: Confirmed By:ANGLE CROWLEY MD
== END 2019-04-17 06:32 | disposition expired | DRG 371 ==
LOC: JER 14:49 → JERBED 20:37 → J4S 23:53 → JICU 04-16 20:22
PROVIDERS: ADMIT Specialist; ATTEND Specialist
PROC: 0BH17EZ Insertion of Endotracheal Airway into Trachea, Via Natural or Artificial Opening (ICD-10-PCS; principal; 2019-04-16)
PROC: 5A1935Z Respiratory Ventilation, Less than 24 Consecutive Hours (ICD-10-PCS; 2019-04-16)
PROC: 05HM33Z Insertion of Infusion Device into Right Internal Jugular Vein, Percutaneous Approach (ICD-10-PCS; 2019-04-16)
PROC: B513ZZA Fluoroscopy of Right Jugular Veins, Guidance (ICD-10-PCS; 2019-04-16)
PROC: 5A12012 Performance of Cardiac Output, Single, Manual (ICD-10-PCS; 2019-04-16)
DX: A04.71 Enterocolitis due to Clostridium difficile, recurrent (principal); J96.01 Acute respiratory failure with hypoxia; J96.02 Acute respiratory failure with hypercapnia; I50.33 Acute on chronic diastolic (congestive) heart failure; N39.0 Urinary tract infection, site not specified; E87.0 Hyperosmolality and hypernatremia; N17.9 Acute kidney failure, unspecified; D61.818 Other pancytopenia; I13.0 Hypertensive heart and chronic kidney disease with heart failure and stage 1 through stage 4 chronic kidney disease, or unspecified chronic kidney disease; N18.4 Chronic kidney disease, stage 4 (severe); E86.0 Dehydration; E11.22 Type 2 diabetes mellitus with diabetic chronic kidney disease; R33.9 Retention of urine, unspecified; R53.83 Other fatigue; R63.0 Anorexia; Z68.27 Body mass index [BMI] 27.0-27.9, adult; I25.119 Atherosclerotic heart disease of native coronary artery with unspecified angina pectoris; E03.9 Hypothyroidism, unspecified; K21.9 Gastro-esophageal reflux disease without esophagitis; S90.30XA Contusion of unspecified foot, initial encounter; K57.90 Diverticulosis of intestine, part unspecified, without perforation or abscess without bleeding; K59.09 Other constipation; R29.6 Repeated falls; E87.5 Hyperkalemia; D64.9 Anemia, unspecified; G47.00 Insomnia, unspecified; F41.9 Anxiety disorder, unspecified; E66.9 Obesity, unspecified; D69.6 Thrombocytopenia, unspecified; R74.8 Abnormal levels of other serum enzymes; G47.33 Obstructive sleep apnea (adult) (pediatric); R94.5 Abnormal results of liver function studies; R00.1 Bradycardia, unspecified
CPT/HCPCS: 36415; 36430; 36511; 36600; 70450-TC; 71045-TC-FY; 73630-TC-LT; 73718-TC-LT; 76775-TC; 80048; 80053; 80074; 81003; 82140; 82436; 82550; 82565; 82607; 82728; 82746; 82803; 82962; 83540; 83550; 83605; 83735; 83880; 84100; 84133; 84156; 84300; 84484; 84540; 85025; 85027; 85610; 85651; 85730; 86850; 86900; 86901; 86922; 87040; 87086; 87205; 93005; 93010; 94002; 94640; 94660; 97116-GP; 97162-GP; 99283-25; J0131; J1250; J1447; J1644; J7030; P9038; P9047; P9058